=== PATIENT | female | born 1960 | race Caucasian/White ===

== ENCOUNTER 2018-01-07 06:58 | Observation (INO) | payer MEDICARE, SELFPAY ==
[2018-01-07] VITALS (9 sets, daily range): BP systolic 105–169; BP diastolic 51–78; PULSE 98–109; RESP 18–24; TEMP 36.7–37.2; O2SAT 88–100; BMI 17.4; BMI 17.0; BMI 17.1
--- NOTE | 2018-01-07 07:08 | EKG12_ITS ---
Test Reason : SOB Blood Pressure : / mmHG Vent. Rate : 099 BPM Atrial Rate : 099 BPM P-R Int : 140 ms QRS Dur : 064 ms QT Int : 346 ms P-R-T Axes : 080 080 073 degrees QTc Int : 444 ms Normal sinus rhythm Normal ECG Confirmed by GRACIELA ALEJANDRO ([id number]), managing editor JUAN MURPHY ([id number]) on 01/14/2018 2:04:48 PM Referred By: ADONIS Confirmed By:GRACIELA ALEJANDRO
[2018-01-07] MEDS: Ipratropium/Albuterol Sulfate 3 ML AMPUL.NEB INHALATION ×2 (07:13→14:55)
[2018-01-07] MEDS: Albuterol 2.5 MG/3 ML VIAL.NEB. INHALATION ×2 (07:13)
[2018-01-07] MEDS: MethylPREDNISolone 125 MG/2 ML Vial IV (07:49)
[2018-01-07] MEDS: 0.9% Normal Saline 1,000 ML 150 ML IV (07:50)
[2018-01-07 08:10] LABS: Absolute Lymphocyte Count 2.18 X10^3/ul (0.83-4.51); Absolute Neutrophil Count 7.9 X10^3/uL (2.0-7.7); Basophil# 0.04 X10^3/uL; Basophil% 0.3 % (0-1); Differential Indicated SCAN CRITERIA MET; Eosinophil# 2.08 X10^3/uL; Eosinophils% 16.1 % (0-5); Hematocrit 45.4 % (37-47); Hemoglobin 13.8 g/dl (12.0-15.0); Lymphocyte # 2.18 X10^3/ul (4.0); Lymphocyte % 16.9 % (19-41); Mean Corp Hgb Conc 30.4 g/gl (32-36); Mean Corpuscular Hgb 26.8 pg (27.0-32.0); Mean Corpuscular Volume 88.3 fL (81-99); Mean Platelet Vol. 9.5 fl (6.2-12.0); Monocyte# 0.65 X10^3/uL; Neutrophil # 7.93 X10^3/uL (2.7-7.7); Neutrophil % 61.5 % (47-70); POSITIVE COUNT NO; POSITIVE DIFFERENTIAL YES; POSITIVE MORPHOLOGY NO; Platelet Count 332 K/mm3 (150-450); RBC Distribution Width CV 14.6 % (11.6-14.6); RBC Distribution Width SD 46.9 fl (35.1-43.9); Red Blood Count 5.14 M/mm3 (4.2-5.4); White Blood Count 12.9 K/mm3 (4.4-11.0)
[2018-01-07 08:13] LABS: Anion Gap 9 (5-15); BUN 11 mg/dL (7-18); BUN/Creat Ratio 14.8 RATIO (10-20); Calcium,Total 8.4 mg/dL (8.5-10.1); Chloride 106 mmol/L (98-107); Creatinine, Serum 0.74 mg/dL (0.55-1.02); EST Glomerular Filtration Rate 86 mL/min (>60); Est Glom Filt Rate - Afr Amer 104 mL/min (>60); Estimated Creatinine Clearance 55.22 ml/min; Glucose 113 mg/dL (74-106); Potassium 3.2 mmol/L (3.5-5.1); Sodium Level 144 mmol/L (136-145)
--- NOTE | 2018-01-07 08:57 | ED.VISSUMM ---
- ER Visit Summary Date of Service: 01/07/18 Chief Complaint: [Shortness of breath] History of Present Illness: The patient is a 57 F [resents the emergency department complaint shortness of breath that started several months ago. Patient complains of a lot of coughing and sneezing. Patient states that her oxygen level at times dropping down in the 70s at home. Patient does not normally wear home O2. She is coughing up some yellow sputum. She has had chills but no documented fever. Patient does complain of some chest tightness. Patient does have a history of asthma, COPD, high cholesterol, degenerative disc disease, and fibro-myalgia.] Physical Examination: [HEENT-PERRLA, EOMI. Cranial nerves II through XII grossly intact. TMs clear. Mucous membranes moist. No adenopathy. Cardiovascular-regular rate and rhythm without murmur or ectopy Lungs-diminished breath sounds bilaterally with expiratory wheezes throughout. Mild tachypnea. No accessory muscle use or retractions. Abdomen-normoactive bowel sounds, soft, nontender, no rebound or rigidity, no peritoneal signs. Extremities-intact ?4, normal range of motion, normal pulses, atraumatic] Test Results: [EKG obtained arrival shows sinus rhythm with rate of 99 bpm. CBC with differential showed white count of 12.9, Hemoccult was 13.8, hematocrit 45, platelet 332. Chemistries unremarkable other than a slightly depressed potassium at 3.2. Troponin was less than 0.015. Chest x-ray was normal.] Emergency Department Course and Treatment: [Patient was medicated with DuoNeb aerosol as well as Solu-Medrol and Levaquin. She was given 40 medical and potassium chloride p.o.] Treatment Plan: [Admit] Disposition: [Admit] Impression: [COPD exacerbation Hypoxemia] This note was generated with [employer] dictation software. It may contain incorrect words, spelling, and punctuation that were not noted in review of the chart prior to signing ED Disposition - Plan for ED Patient: Chief Complaint: Shortness of Breath Referrals: Lew Verduzco MD [Primary Care Provider] -
[2018-01-07] MEDS: levoFLOXacin IV 750 MG/150 ML BAG 100 MG IV (09:34)
--- NOTE | 2018-01-07 13:04 | PCM.HP.STD ---
Problem List (1) COPD exacerbation Status: Acute History of Present Illness Date of Admission: 01/07/18 Chief Complaint: shortness of breath. The patient is a 57 year old F presents with shortness of breath. Time and will check her pulse ox to be minimal exertion. Patient had the same bouts a day. Patient feels that her symptoms are related with sinus infection and usually relieved with Medrol Dosepak and Levaquin. Patient presented to the emergency room where she will intake pulse ox was 88%. After treatment with Levaquin and duo nebs and methylprednisolone, patient was 98% on room air. [] Past Medical History Past Medical History (Chronic Problems): Chronic Problems Asthma (Chronic) Ankylosing spondylitis (Chronic) Anxiety disorder (Chronic) History of chest pain (Chronic) Atypical History of cataract (Chronic) Edentulous (Chronic) HLD (hyperlipidemia) (Chronic) Myositis (Chronic) History of nasal polyp (Chronic) Obesity (Chronic) Plantar fascial fibromatosis (Chronic) IBS (irritable bowel syndrome) (Chronic) Mixed anxiety and depressive disorder (Chronic) Migraines (Chronic) Medical History: Medical History (Last Updated 01/07/18 @ 13:08 by Hi Hensley DO) Anxiety F41.9 Asthma J45.909 COPD (chronic obstructive pulmonary disease) J44.9 Degenerative disc disease Depression F32.9 Fibromyalgia M79.7 Migraine G43.909 Allergies acetaminophen [From Vicodin] Allergy (Verified 05/27/17 07:33) MAKES MY CHEST HURT aspirin Allergy (Verified 05/27/17 07:33) Shortness of breath azithromycin [From Zithromax] Allergy (Verified 05/27/17 07:33) Itching budesonide Allergy (Verified 05/27/17 07:33) Rash ciprofloxacin [From Cipro] Allergy (Verified 05/27/17 10:18) Hives codeine Allergy (Verified 05/27/17 07:33) Hives difluprednate [From Durezol] Allergy (Verified 05/27/17 07:33) Rash doxycycline Allergy (Verified 05/27/17 07:33) Rash hydrocodone bitartrate [From Vicodin] Allergy (Verified 05/27/17 07:33) Hives ibuprofen [From Motrin] Allergy (Verified 05/27/17 07:33) Shortness of breath ketorolac tromethamine [From Toradol] Allergy (Verified 05/27/17 07:33) Swelling maprotiline Allergy (Verified 05/27/17 07:33) Itching meperidine HCl [From Demerol] Allergy (Verified 05/27/17 07:33) Rash mirtazapine Allergy (Verified 05/27/17 07:33) Other Penicillins Allergy (Verified 05/27/17 07:33) Rash prednisone Allergy (Verified 05/27/17 07:33) Itching tramadol HCl [From Ultram] Allergy (Verified 05/27/17 07:33) Chest tightness vancomycin Allergy (Verified 05/27/17 07:33) Swelling acetylcysteine [From Mucomyst] Adverse Reaction (Verified 05/27/17 07:33) ITCHING, REDNESS citalopram hydrobromide [From Celexa] Adverse Reaction (Verified 05/27/17 07:33) Nausea/Vom/Diarrhea escitalopram oxalate [From Lexapro] Adverse Reaction (Verified 05/27/17 07:33) Nausea/Vom/Diarrhea nitrofurantoin [From Macrobid] Adverse Reaction (Verified 05/27/17 07:33) Diarrhea nitrofurantoin macrocrystalline [From Macrobid] Adverse Reaction (Verified 05/27/17 07:33) Diarrhea oxycodone Adverse Reaction (Verified 05/27/17 07:33) Hives pregabalin [From Lyrica] Adverse Reaction (Verified 05/27/17 07:33) Swelling sulfamethoxazole [From Bactrim] Adverse Reaction (Verified 05/27/17 07:33) Unknown trimethoprim [From Bactrim] Adverse Reaction (Verified 05/27/17 07:33) Unknown venlafaxine HCl [From Effexor] Adverse Reaction (Verified 05/27/17 07:33) Nausea/Vom/Diarrhea Home Medications: Ambulatory Orders Medication Instructions Recorded Albuterol Sulfate [Ventolin Hfa] 1 - 2 puff IH Q4H PRN PRN 07/09/14 Cholecalciferol (VIT D3) [Vitamin 1,000 unit PO DAILY 07/09/14 D3] Clonazepam [Klonopin] 0.5 mg PO BID 07/09/14 Estradiol [Estrace] 0.5 mg PO QHS 07/09/14 Fluticasone 0.05% [Flonase Nasal 1 spray NASAL DAILY PRN PRN 07/09/14 [place]] Ipratropium [Atrovent Aerosols] 0.25 mg INHALATION 4X/DAY PRN PRN 07/09/14 Lansoprazole [Prevacid] 30 mg PO DAILY 07/09/14 Ranitidine [Zantac] 150 mg PO BID 07/09/14 Simvastatin [Zocor] 40 mg PO QHS 07/09/14 fentaNYL patch [Duragesic Patch] 25 mcg TRANSDERM. Q3D 07/09/14 Loperamide [Imodium] 2 mg PO Q6H PRN PRN #20 capsule 07/22/14 Dicyclomine HCl [Bentyl] 10 mg PO TID 06/24/15 Imipramine HCl [Tofranil] 25 mg PO DAILY 06/24/15 Sucralfate [Carafate] 10 ml PO TID 06/24/15 Fexofenadine HCl [Nan Allergy] 180 mg PO QHS 03/26/17 Imipramine HCl 50 mg PO QHS 01/07/18 Surgical History: appendectomy, cholecystectomy, hysterectomy Psychiatric History: Anxiety, Depression Smoking Status: Never smoker Tobacco Use: Non-smoker - *Family History Maternal History Items: Cancer, COPD, - Paternal History Items: Heart Disease, Hypertension Sibling History Items: Diabetes, Heart Disease, Hypertension, Pulmonary Disease Review of Systems Constitutional: Denies: Anorexia, Chills, Fever Eyes: Denies: Blurred vision, Double vision HEENT: Reports: Post Nasal Drip, Sore Throat. Denies: Head Aches, Sinus Congestion, Sinus Drainage Cardiovascular: Reports: Chest Pain. Denies: Palpitations Respiratory: Reports: Cough, Shortness of Breath, Sputum production, Wheezing Gastrointestinal: Denies: Abdominal Pain, Nausea, Vomiting Genitourinary: Denies: Dysuria Musculoskeletal: Denies: Joint Pain, Joint Tenderness Skin: Denies: Dryness, Jaundice Neurological: Denies: Numbness, Tingling, Focal weakness Psychiatric: Reports: Anxiety Hematologic/ Lymphatic: Denies: Easy Bruising, Easy Bleeding, Hx of blood clot Comment: All review of systems are negative except as mentioned in the history of present illness and the other review of systems. VTE Information - Inpt Only VTE Present on Admission: No VTE Mechan Device Prophylaxis: None VTE Pharm Prophylaxis ordered?: Yes Patient Problems: Active and Suspected Problems COPD exacerbation (Acute) - Physical Exam General: Alert, Cooperative, No apparent distress, - - No respiratory distress. No conversational dyspnea. HEENT: Atraumatic, Normocephalic Oral: Moist Mucosa, No Gingival or Mucosal Lesions/ Ulcerations Neck: No Nodes, Thyroid Normal Size and Texture Lungs: Clear to auscultation, Normal air movement, No rhonchi, No wheeze Cardiovascular: Regular rate, Regular Rhythm, Normal S1, Normal S2, No murmurs Abdomen: Bowel Sounds Present, Soft, Non Tender, Non-Distended, No Hepato-splenomegaly Extremities: No edema, No Calf Tenderness Skin: No breakdown, - - Macular rash with satellite lesions underneath the right breast. No evidence of cellulitis. Musculoskeletal: No Tenderness to Palpation of Joints or Extremities, No Muscle Wasting Neurological: Coordination normal, Gait narrow based and stable Psych/Mental Status: Appropriate, Anxious Vital Signs Temp Pulse Resp BP Pulse Ox 36.9 C 105 H 19 H 119/51 L 97 01/07/18 10:45 01/07/18 10:45 01/07/18 10:45 01/07/18 10:45 01/07/18 10:45 Oxygen Delivery Method Room Air Weight: 41 kg Body Mass Index (BMI) 17.0 Chest x-ray reviewed and showed no infiltrate nor edema. Assessment/Plan All Active Problems COPD exacerbation (Acute) Influenza A (Acute) Hypokalemia (Acute) Hypomagnesemia (Acute) HCAP (healthcare-associated pneumonia) (Acute) Traumatic ulcer of right lower leg (Acute) Allergic reaction caused by a drug (Acute) Diarrhea (Acute) Generalized weakness (Acute) 1. Acute asthma/COPD exacerbation Patient is not hypoxic even with ambulation in the hallway I do not feel the patient needs to be admitted and can be discharged with prednisone 40 mg daily for 5 days Patient also requesting duo nebs be refilled. I do not suspect any pneumonia. Patient also complaining of upper respiratory symptoms and sinus congestion but in either case I do not feel antibiotics are warranted. Patient can be discharged home Follow-up with pulmonology as outpatient 2. Headaches Patient has numerous allergies I would be concerned about analgesic rebound given the patient's fentanyl use. Consider discontinuing fentanyl to help alleviate her headaches which reveal her analgesic rebound. 3. Suspected contact dermatitis Patient has a very confined rash under her right breast. Almost has a candidal type appearance but patient does not have the breast folds that you lateral. Suspect is probably more of a contact dermatitis given the patient's recent gardening and around unknown plants with her numerous allergies. Patient will be on prednisone nonetheless and that should help that is indeed the case. Discharge home. Patient does not require hospitalization. Code Visit OBSV E&M: 59267 Observ/hosp same date L3
--- NOTE | 2018-01-07 13:18 | PCM.DC ---
- Discharge Diagnoses Current Active Problems: Current Active and Chronic Problems (Last Updated 01/07/18 @ 13:08 by Hi Hensley DO) COPD exacerbation (Acute) You will use the following diet at home:: No restrictions Your food should be the consistency of: Regular Your liquids should be the consistency of: Regular/Thin Call your doctor if you observe: Fever of 101 or Higher, Shortness of breath Allergies/Adverse Reactions: Allergies acetaminophen [From Vicodin] Allergy (Verified 05/27/17 07:33) MAKES MY CHEST HURT aspirin Allergy (Verified 05/27/17 07:33) Shortness of breath azithromycin [From Zithromax] Allergy (Verified 05/27/17 07:33) Itching budesonide Allergy (Verified 05/27/17 07:33) Rash ciprofloxacin [From Cipro] Allergy (Verified 05/27/17 10:18) Hives codeine Allergy (Verified 05/27/17 07:33) Hives difluprednate [From Durezol] Allergy (Verified 05/27/17 07:33) Rash doxycycline Allergy (Verified 05/27/17 07:33) Rash hydrocodone bitartrate [From Vicodin] Allergy (Verified 05/27/17 07:33) Hives ibuprofen [From Motrin] Allergy (Verified 05/27/17 07:33) Shortness of breath ketorolac tromethamine [From Toradol] Allergy (Verified 05/27/17 07:33) Swelling maprotiline Allergy (Verified 05/27/17 07:33) Itching meperidine HCl [From Demerol] Allergy (Verified 05/27/17 07:33) Rash mirtazapine Allergy (Verified 05/27/17 07:33) Other Penicillins Allergy (Verified 05/27/17 07:33) Rash prednisone Allergy (Verified 05/27/17 07:33) Itching tramadol HCl [From Ultram] Allergy (Verified 05/27/17 07:33) Chest tightness vancomycin Allergy (Verified 05/27/17 07:33) Swelling acetylcysteine [From Mucomyst] Adverse Reaction (Verified 05/27/17 07:33) ITCHING, REDNESS citalopram hydrobromide [From Celexa] Adverse Reaction (Verified 05/27/17 07:33) Nausea/Vom/Diarrhea escitalopram oxalate [From Lexapro] Adverse Reaction (Verified 05/27/17 07:33) Nausea/Vom/Diarrhea nitrofurantoin [From Macrobid] Adverse Reaction (Verified 05/27/17 07:33) Diarrhea nitrofurantoin macrocrystalline [From Macrobid] Adverse Reaction (Verified 05/27/17 07:33) Diarrhea oxycodone Adverse Reaction (Verified 05/27/17 07:33) Hives pregabalin [From Lyrica] Adverse Reaction (Verified 05/27/17 07:33) Swelling sulfamethoxazole [From Bactrim] Adverse Reaction (Verified 05/27/17 07:33) Unknown trimethoprim [From Bactrim] Adverse Reaction (Verified 05/27/17 07:33) Unknown venlafaxine HCl [From Effexor] Adverse Reaction (Verified 05/27/17 07:33) Nausea/Vom/Diarrhea Medications to take at Discharge Albuterol Sulfate [Ventolin Hfa] 1 - 2 puff IH Q4H PRN PRN 07/09/14 Cholecalciferol (VIT D3) [Vitamin D3] 1,000 unit PO DAILY 07/09/14 Clonazepam [Klonopin] 0.5 mg PO BID 07/09/14 Estradiol [Estrace] 0.5 mg PO QHS 07/09/14 Fluticasone 0.05% [Flonase Nasal [place]] 1 spray NASAL DAILY PRN PRN 07/09/14 Lansoprazole [Prevacid] 30 mg PO DAILY 07/09/14 Ranitidine [Zantac] 150 mg PO BID 07/09/14 Simvastatin [Zocor] 40 mg PO QHS 07/09/14 fentaNYL patch [Duragesic Patch] 25 mcg TRANSDERM. Q3D 07/09/14 Loperamide [Imodium] 2 mg PO Q6H PRN PRN #20 capsule 07/22/14 Dicyclomine HCl [Bentyl] 10 mg PO TID 06/24/15 Imipramine HCl [Tofranil] 25 mg PO DAILY 06/24/15 Sucralfate [Carafate] 10 ml PO TID 06/24/15 Fexofenadine HCl [Nan Allergy] 180 mg PO QHS 03/26/17 Imipramine HCl 50 mg PO QHS 01/07/18 Ipratropium/Albuterol Sulfate [Duoneb] 3 ml INHALATION Q8H #30 ampul.neb 01/07/18 Prednisone 4 tab PO DAILY #20 tab 01/07/18 The following prescriptions were given: Ipratropium/Albuterol Sulfate [Duoneb] 3 ml INHALATION Q8H #30 ampul.neb Prednisone 4 tab PO DAILY #20 tab Primary Care Physician: Lew Verduzco MD [Primary Care Provider] - Within 2 Weeks Test Results: Test results from this visit will be discussed in further detail at your follow-up appointment, if applicable. Please Follow Up With: Abdias Olguin MD When: 1-2 months Proposed Discharge Date: 01/07/18
--- NOTE | 2018-01-07 13:19 | PCM.DC.SUM ---
Discharge Date and Diagnosis - Problem List Patient Problems: Active and Suspected Problems (Last Updated 01/07/18 @ 13:08 by Hi Hensley DO) COPD exacerbation (Acute) Date of Admission: 01/07/18 Date of Discharge: 01/07/18 - Primary Discharge Diagnosis Active and Suspected Problems (Last Updated 01/07/18 @ 13:08 by Hi Hensley DO) COPD exacerbation (Acute) - Secondary Discharge Diagnosis Chronic Problems (Last Updated 01/07/18 @ 13:08 by Hi Hensley DO) Asthma (Chronic) Ankylosing spondylitis (Chronic) Anxiety disorder (Chronic) History of chest pain (Chronic) Atypical History of cataract (Chronic) Edentulous (Chronic) HLD (hyperlipidemia) (Chronic) Myositis (Chronic) History of nasal polyp (Chronic) Obesity (Chronic) Plantar fascial fibromatosis (Chronic) IBS (irritable bowel syndrome) (Chronic) Mixed anxiety and depressive disorder (Chronic) Migraines (Chronic) Hospital Course and Treatment Imaging Results: Clinical Impression(s) from Imaging Studies Chest X-Ray 01/07/18 07:08 IMPRESSION: Normal x-ray examination of the chest. Electronically Signed: Cristofer Etienne MD at 7:32 EDT Tel , Service support , Operations: None Procedures: None Summary of Care Provided: The patient is a 57 year old F resents with shortness of breath hypoxia of 70-80% at home. In the emergency room, patient did have an intake pulse ox of 88% but subsequently improved to 98% on room air. Patient in the emergency room, received Levaquin, bronchodilators and Solu-Medrol. Patient was seen on the floor by myself and patient was talking in full sentences, on room air. Patient was ambulated in the hallway on room air talking in full sentences the hallway and upon returning back her pulse ox was 95%. Therefore, do not feel the patient requires hospitalization and can be discharged with prednisone 40 mg for 5 days. Patient also asked for DuoNeb's for nebulizer which she will be immobilized. Patient follow-up with her primary care doctor next 2 weeks and the follow-up with her ovens supervisor, Dr. Olguin, next 1-2 months or sooner if necessary. [] Discharge Diet: No Restrictions Call your doctor if you observe: Fever of 101 or Higher, Shortness of breath Home Medications: Medications to take at Discharge Albuterol Sulfate [Ventolin Hfa] 1 - 2 puff IH Q4H PRN PRN 07/09/14 Cholecalciferol (VIT D3) [Vitamin D3] 1,000 unit PO DAILY 07/09/14 Clonazepam [Klonopin] 0.5 mg PO BID 07/09/14 Estradiol [Estrace] 0.5 mg PO QHS 07/09/14 Fluticasone 0.05% [Flonase Nasal [place]] 1 spray NASAL DAILY PRN PRN 07/09/14 Lansoprazole [Prevacid] 30 mg PO DAILY 07/09/14 Ranitidine [Zantac] 150 mg PO BID 07/09/14 Simvastatin [Zocor] 40 mg PO QHS 07/09/14 fentaNYL patch [Duragesic Patch] 25 mcg TRANSDERM. Q3D 07/09/14 Loperamide [Imodium] 2 mg PO Q6H PRN PRN #20 capsule 07/22/14 Dicyclomine HCl [Bentyl] 10 mg PO TID 06/24/15 Imipramine HCl [Tofranil] 25 mg PO DAILY 06/24/15 Sucralfate [Carafate] 10 ml PO TID 06/24/15 Fexofenadine HCl [Nan Allergy] 180 mg PO QHS 03/26/17 Imipramine HCl 50 mg PO QHS 01/07/18 Ipratropium/Albuterol Sulfate [Duoneb] 3 ml INHALATION Q8H #30 ampul.neb 01/07/18 Prednisone 4 tab PO DAILY #20 tab 01/07/18 Following Prescrptions Were Given to Patient: Ipratropium/Albuterol Sulfate [Duoneb] 3 ml INHALATION Q8H #30 ampul.neb Prednisone 4 tab PO DAILY #20 tab Primary Care Physician: Lew Verduzco MD [Primary Care Provider] - Within 2 Weeks Please Follow Up With: Abdias Olguin MD When: 1-2 months Disposition: Home Minutes spent on discharge:: 35 Patient Condition:: Good Medical Necessity - Tobacco Use Smoking Status: Never smoker Tobacco Use: Non-smoker Meaningful Use Info Meaningful Use Diagnoses (Choose all that apply): None applicable Code Visit OBSV E&M: 18319 Observ/hosp same date L3
[2018-01-07] MEDS: Dicyclomine 10 MG Capsule PO (15:20)
--- NOTE | 2018-01-07 15:30 | CASEMGMT ---
Social Work Note CHRISTI Reyna updated this worker that pt is fearful about returning home and would like to speak with this worker about resources. SW in to speak with pt. SW introduced self and role at [facility]. Pt is alert and orientated x4. Pt states that she lives in her home with her boyfriend Laurent. Pt states that she and her boyfriend Laurent have been dating for 13 months and she recently moved him into her home three months ago. Pt states that it is her home. Pt states that her boyfriend has Bipolar and has stopped taking his medications. Pt states that her boyfriend will Snap at an instant and will raise his voice and yell at pt. Pt states that her boyfriend states that he doesn't need to be on his medication anymore. Pt states that her boyfriend has stopped drinking as pt has informed him that if he comes home drunk then he will have to find another place to live. Pt states that she has a history of dating alcoholics and she doesn't want to date another one. Pt states that she gets upset and it affects her breathing when her boyfriend raises his voice at her. Pt states that she gets upset at anybody who will raise their voice at her. Pt states that it affects her anxiety which has an effect on her breathing. SW asked pt if she has told her boyfriend about these feelings and how it affects her and pt states that she has but is willing to continue to work at telling her boyfriend how she feels. SW educated pt on I statements and how important and beneficial it can be to utilize I statements when telling others how they feel. Pt states that she tells her boyfriend to remain calm and to not stress. Pt states that her boyfriend works a lot and he is stressed a lot and she thinks that this is why he yells at her a lot. SW educated pt on positive coping skills to deal with stress and informed pt that it is not ok for her boyfriend to take his stress out on her. Pt denied her boyfriend ever being physical with her and states that he just raises his voice at her. SW informed pt that since it is her home then she has the right to say who gets to live with her in her home or not. SW informed pt that she has the right to make her boyfriend leave her house and if he doesn't then a police report needs to be made. Pt states that she doesn't want police to get involved. Pt states that her boyfriend keeps saying that he is going to work on things and she believes him. SW educated pt on coping skills. Pt states that to cope with her boyfriend she will usually get in her truck and drive to her mothers home or her cousins. Pt states that her mother and cousin are good support for her. Pt states that she wanted to move her boyfriend into her home because she gets lonely and likes to have company. SW provided active listening to pt and empathy but educated pt on what healthy relationships look like. Pt states understanding. Pt states that if things get worse she will have her boyfriend move out or spend more time with her mother and cousin. Pt states that she feels safe to return home and she will continue to work on her relationship with her boyfriend. Note* Pt is alert and orientated x4 and under the age of 60 so APS report is not appropriate. Shaina Cortés COMPOUNDING AND FINISHING SUPERVISOR, PLATER HELPER
[2018-01-09 14:17] LABS: Pathologist Review Reviewed
== END 2018-01-07 16:41 | disposition home or self-care (01) ==
LOC: ED 09:06 → MS3 09:29
PROVIDERS: Emergency Provider Emergency Medicine; Family Provider Internal Medicine; PCP Internal Medicine
DX: J44.1 Chronic obstructive pulmonary disease with (acute) exacerbation (principal); E78.5 Hyperlipidemia, unspecified; Z79.899 Other long term (current) drug therapy; F41.8 Other specified anxiety disorders; M72.2 Plantar fascial fibromatosis; K58.9 Irritable bowel syndrome, unspecified; M45.9 Ankylosing spondylitis of unspecified sites in spine; E78.00 Pure hypercholesterolemia, unspecified; M79.7 Fibromyalgia
CPT/HCPCS: 71045; 80048; 84484; 85025; 93005; 94640; 96361; 96365; 96366; 96375; 97162; 99218; 99285; J7030; G0378

== ENCOUNTER → 2018-02-14 16:41 | Outpatient (CLI) | payer MEDICARE, SELFPAY | PROVIDERS: Referring Provider Otolaryngology; Visit Provider Otolaryngology | DX: J32.9 Chronic sinusitis, unspecified (principal) | CPT/HCPCS: 87070; 87077; 87186; 87205 ==

== ENCOUNTER 2018-04-07 10:39 | Day surgery (SDC) | payer MEDICARE, SELFPAY ==
[2018-01-07 10:47] VITALS: BMI 17.0
--- NOTE | 2018-04-07 | IMM_PTH ---
PATIENT: EZIO JEFFERS LOC: EN U#:[id number] AGE/SX: 57/F ROOM: RE04/07/[address]: Dr. Suki Marcum MD : [id number] BED: DIS: 04/07/2018 SPEC #: [id number] RECD: 04/07/18 15:51 STATUS: ANGELINA REQ #: [id number] IZABEL: 04/07/18 00:[address]: Suki Marcum DEPT: IMMUNOHISTOCHEMISTRY RECD BY: Valerie Ortiz ENTERED: 04/07/18 15:52 SP TYPE: IMMUNO OTHR DR: Dr. Lew Verduzco MD Tissues: B - Stomach, NOS Procedures: H Pylori (initial) PHYSICIAN & INSTITUTION [place] [id number] SPECIMEN INFORMATION: Tissue Source: B - Biopsy gastric antrum Clinical Info: Dysphagia, nausea, history of colon polyps Specimen Number: [id number] CPT code: 34504 METHODOLOGY: Deparaffinized sections of prefer/formalin-fixed tissue or PAP/DQ stained slides are incubated with monoclonal/polyclonal antibodies/oligonucleotide probes. Localization is made via biotin free immunoperoxidase method. Appropriate controls are performed and reacted as expected. Results on target cell population are indicated in the following table: RESULTS: ANTIBODY / CLONE RESULT Block B H Pylori (polyclonal) negative These tests were developed and their performance characteristics determined by [facility]. They may not have been cleared or approved by the U.S. Food and Drug Administration. The FDA has determined that such clearance or approval is not necessary. INTERPRETATION: B. Gastric antrum, biopsy: Negative for Helicobacter pylori organisms. SJ:melissa 04/08/18
--- NOTE | 2018-04-07 | EGD_PTH ---
PATIENT: EZIO JEFFERS LOC: EN U#:[id number] AGE/SX: 57/F ROOM: RE04/07/[address]: Dr. Suki Marcum MD : 1960 BED: DIS: 04/07/2018 SPEC #: [id number] RECD: 04/07/18 14:00 STATUS: ANGELINA IVA #: [id number] IZABEL: 04/07/18 00:[address]: Suki Marcum DEPT: SURGICAL PATHOLOGY RECD BY: Kalia Palacios ENTERED: 04/07/18 14:01 SP TYPE: EGD BIOPSY OTHR DR: Dr. Lew Verduzco MD Tissues: A - Duodenum, NOS B - Gastric mucous membrane C - Gastric mucous membrane D - COLON BIOPSY E - Ileum, NOS Procedures: Special Stain Group II Surgery Specimen Level IV Alcian Blue/PAS (control) HEADER OPERATION: [place], [place] [place] DIAGNOSIS: Dysphagia, nausea, history of colon polyps TISSUE SUBMITTED: A - Biopsy second portion of duodenum, B - Biopsy gastric antrum, H. pylori and path, C - GE junction, D - Random colonic mucosal biopsies, E - Biopsy terminal ileum MICROSCOPIC DIAGNOSIS A. Second portion of duodenum, biopsy: A fragment of duodenal mucosa with mild mucosal congestion and hemorrhage and Nehemiah's gland hyperplasia. B. Gastric antrum, biopsy: Mild gastritis. Mild mucosal congestion. See microscopic description and comment. C. GE junction, biopsy: Fragments of gastroesophageal mucosa with changes consistent with gastroesophageal reflux disease. Intestinal metaplasia (goblet cell metaplasia) is not identified. See comment. D. Colon, random mucosal biopsy: Fragments of colonic mucosa, no pathologic diagnosis. E. Terminal ileum, biopsy: A fragment of small intestinal mucosa, no pathologic diagnosis. SJ:melissa 04/08/18 COMMENT B. The results of immunohistochemistry for Helicobacter pylori will be reported separately ([id number]). C. Alcian blue/PAS stain with matched control is used in the evaluation of the specimen. Focal increased number of eosinophils are noted (up to 15 per high power field). MICROSCOPIC DESCRIPTION Slides are reviewed. B. The specimen shows fragments of gastric mucosa with chronic inflammatory cell infiltrates in the lamina propria consisting of lymphocytes and plasma cells, consistent with mild chronic gastritis. Focal mild mucosal congestion is also noted. GROSS DESCRIPTION A - Received in fixative is one container labeled with the patient's name and designated second portion of duodenum. The specimen consists of one irregular fragment of light [place] soft tissue that measures 0.3 x 0.2 x 0.1 cm. The specimen is totally submitted in one cassette. B - Received in fixative is one container labeled with the patient's name and designated biopsy gastric antrum. The specimen consists of one irregular fragment of light cub[place] soft tissue that measures 0.2 x 0.2 x 0.1 cm. The specimen is totally submitted in one cassette. C - Received in fixative is one container labeled with the patient's name and designated biopsy GE junction. The specimen consists of two irregular fragments of light [place] soft tissue that in aggregate measure 0.6 x 0.3 x 0.1 cm. The specimen is totally submitted in one cassette. D - Received in fixative is one container labeled with the patient's name and designated random colon mucosal biopsy. The specimen consists of multiple irregular fragments of light cuba soft tissue that in aggregate measure 2 x 0.5 x 0.1 cm. The specimen is totally submitted in one cassette. E - Received in fixative is one container labeled with the patient's name and designated biopsy terminal ileum. The specimen consists of one irregular fragment of light cuba soft tissue that measures 0.3 x 0.2 x 0.1 cm. The specimen is totally submitted in one cassette. / SJ:rg 04/07/18 TC:[address] [facility]: [id number] [phone], [phone]
[2018-04-07 11:18] VITALS: BP 115/68; PULSE 110; RESP 16; TEMP 37.7; O2SAT 97; BMI 17.2
--- NOTE | 2018-04-07 11:22 | HP.PCM_ITS ---
History and Physical Date of Admission: 04/07/18 Chey Pringle a 57 year old female who is referred by Dr. Verduzco for surveillance colonoscopy. The patient reports a family history of colon cancer in that a maternal aunt had the disease. ? The patient was noted to have a sessile serrated polyp on pathology following a colonoscopy by Dr. Wolfe in June 2013. It was recommended to patient to return in 6-9 months to have a follow-up colonoscopy. Dr. Bains preformed colonoscopy on 03/10/2014 demonstrating one 30 mm polyp in the mid ascending colon. Pathology returned as a hyperplastic polyp. Surgery was recommended due to the size of the area. ? PROCEDURE: Laparoscopic colectomy ileocecal by Dr. Luis Conroy on 07/16/14. ? The patient was seen by Dr. Bains for colonoscopy 03/10/15. The procedure report has been reviewed and findings as follows: Impression: ? ? ? - One 5 mm polyp in the rectum. Resected and retrieved. ? FINAL DIAGNOSIS Rectum, biopsy - Fragments of hyperplastic polyp. ? ? The patient was seen by Dr. Wolfe for upper endoscopy 07/11/09. The procedure report has been reviewed and findings as follows: Findings: ? Esophagus: The Z-line is slightly erratic but without erosions or ulcerations. No evidence of Shell's mucosa. No bxs were taken. ? Stomach: Erythematous mucosa was found in the antrum. No evidence of ulcers in the stomach. A biopsy was taken. The specimen was collected for a urease test. Otherwise, the stomach appeared to be normal. ?Duodenum: The duodenum appeared to be normal. ? The patient remains on Prevacid and Carafate. ? ? Presenting complaint: The patient denies change in bowel habits or rectal bleeding. Having a bowel movement anywhere from none in a day, up to several times a day. She reminds me that she has irritable bowel. She might have several bowel movements if she's upset, or depending on what she has eaten. She reports stabbing pain in her lower abdomen when her irritable bowel occurs. No blood or black stool. She takes dicyclomine as needed. ? The patient has been on Prevacid for years. She also takes ranitidine and sucralfate. She reports nausea at times. Also, pill dysphagia stating that the sensation can last an hour or more. ?? ? PAST?MEDICAL?HISTORY ? Abnormal ultrasound of breast 06/17/2013 ? Acute gastritis ? ? Ankylosing spondylitis (HCC) ? ? Anxiety and depression 06/12/2005 ? Asthma with chronic obstructive pulmonary disease (COPD) (HCC) 05/24/2005 ? Bilateral renal cysts 03/11/2015 ? Calculus of kidney ? ? Dysthymic disorder ? ? Depression (non-psychotic) ? Enterocolitis due to Clostridium difficile 01/12/2015 ? Esophageal reflux ? ? HNP (herniated nucleus pulposus), lumbar 08/22/2011 ? Intrinsic asthma, unspecified 08/05/2008 ? Irritable bowel syndrome ? ? Irritable bowel ? 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 Menopause syndrome 01/19/2005 ? Myalgia and myositis, unspecified ? ? Pure hypercholesterolemia ? ? Serrated adenoma of colon 07/29/2014 ? Symptomatic menopausal or female climacteric states ? ? Unspecified asthma(493.90) ? ? Unspecified sinusitis (chronic) 06/21/2008 ? ? PAST?SURGICAL?HISTORY ? COLONOSCOP W/ OR W/O BRSH SPEC ? 04/24/2001 ? Colonoscopy ? COLONOSCOP W/ OR W/O BRSH SPEC ? 06/16/2013 ? Colonoscopy ? COLONOSCOP W/ OR W/O BRSH SPEC ? 03/10/2014 ? Colonoscopy ? COLONOSCOP W/ OR W/O BRSH SPEC ? 03/10/15 ? Colonoscopy ? EGD W/O OR W/BRUSH/WASH ? 04/24/2001 ? EGD ? EGD W/O OR W/BRUSH/WASH ? 07/11/2009 ? EGD ? EXCISION NOSE POLYP(S),SIMPLE ? 2007 ? Nasal polypectomy, Dr. Mcclelland ? LAP COLECTMY W/ILEUM/ILEOCOL ? 07-16-14 ? PAST SURGICAL HISTORY OF ? 2013 ? left breast biopsy- benign ? REMOVAL GALLBLADDER ? 1998 ? Cholecystectomy ? REMV CATARACT EXTRACAP,INSERT LENS ? ? Cataract Extraction with PC IOL ? REPAIR OF NASAL SEPTUM ? 2006 ? Septoplasty ? SINUS SURGERY PROCEDURE Bilateral 04/02/2017 ? sinonasal polypectomy, revision maxillary antrostomy, total ethmoidectomy, sphenoidotomy ? TOTAL ABDOM HYSTERECTOMY ? 1992 ? Hysterectomy, OPAL BSO ? ? FAMILY?HISTORY ? Cancer Maternal Grandmother ? ? lung ? Colon Cancer Maternal Aunt ? ? COPD Maternal Uncle ? ? Coronary Artery Disease Paternal Aunt ? ? Breast Cancer Other ? ? mothers side (cousin) ? Cancer Maternal Uncle ? ? lung ? Emphysema Father ? ? Heart Father ? ? Emphysema Mother ? ? diabetic ? Heart Mother ? ? Blockage and she needs a bypass, but her COPD prevents ? CURRENT?MEDICATIONS fentaNYL (DURAGESIC) 25 mcg/hr Apply 1 Patch as directed every 72 hours for 30 days.Earliest Fill Date: 01/28/18 Disp: 10 Patch Rfl: 0 [START ON 02/28/2018] fentaNYL (DURAGESIC) 25 mcg/hr Apply 1 Patch as directed every 72 hours for 30 days.Earliest Fill Date: 02/28/18 Disp: 10 Patch Rfl: 0 [START ON 03/31/2018] fentaNYL (DURAGESIC) 25 mcg/hr Apply 1 Patch as directed every 72 hours for 30 days.Earliest Fill Date: 03/31/18 Disp: 10 Patch Rfl: 0 ipratropium-albuterol (DUONEB) 0.5 mg-3 mg(2.5 mg base)/3 mL nebu Inhale 3 mL as instructed every 6 hours as needed. Disp: 30 Vial Rfl: 5 montelukast (SINGULAIR) 10 mg tablet take 1 tablet by mouth at bedtime Disp: 90 tablet Rfl: 3 Estradiol (ESTRACE) 0.5 mg tablet take 1 tablet by mouth once daily Disp: 90 tablet Rfl: 1 ranitidine (ZANTAC) 150 mg tablet take 1 tablet by mouth twice a day Disp: 180 tablet Rfl: 3 clonazePAM (KLONOPIN) 0.5 mg tablet Take 1 tablet by mouth twice daily for 180 days. Disp: 60 tablet Rfl: 5 imipramine HCl (TOFRANIL) 25 mg tablet Take 2 tablets by mouth daily at bedtime. Disp: 180 tablet Rfl: 1 albuterol HFA (VENTOLIN HFA) 90 mcg/actuation inhaler Inhale 2 Puffs as instructed every 4 hours as needed for Wheezing/Shortness of Breath. Disp: 1 Inhaler Rfl: 2 sucralfate (CARAFATE) 1 gram tablet Take 1 tablet by mouth before meals and at bedtime. Disp: 360 tablet Rfl: 1 simvastatin (ZOCOR) 40 mg tablet Take 1 tablet by mouth daily at bedtime. Disp: 90 tablet Rfl: 3 dicyclomine (BENTYL) 10 mg capsule Take 1 capsule by mouth four times daily. (Patient taking differently: Take 10 mg by mouth three times daily. ) Disp: 360 capsule Rfl: 4 lansoprazole (PREVACID) 30 mg capsule take 1 capsule by mouth once daily Disp: 30 capsule Rfl: 11 fluticasone (FLONASE) 50 mcg/actuation nasal spray Use in the nose. SHAKE WELL before using. Blow nose prior to use. Prime pump before using. Disp: Rfl: LOPERAMIDE HCL (IMODIUM ORAL) Take by mouth as needed. Disp: Rfl: Cholecalciferol, Vitamin D3, (VITAMIN D) 1,000 unit cap Take 1,000 Units by mouth once daily. Disp: Rfl: fexofenadine (PRISCILLA) 180 mg ORAL tablet Take one(1) tablet daily. Disp: 90 Tab Rfl: 3 vit e acetate/gly/dimeth/water(CETAPHIL MOISTURIZING LOTION) apply twice daily Disp: 1 Rfl: 0 ? ? SOCIAL HISTORY: Patient is single. She has never smoked. Chey reports her alcohol use as never. ? REVIEW OF SYSTEMS: GENERAL: No weight loss, malaise or fevers RESPIRATORY: Severe COPD CARDIOVASCULAR: Negative for chest pain, leg swelling, hypertension, CHF or palpitations GI: The patient states that her appetite has been adequate. She so,etimes get hungry. There has been some nausea, no vomiting. She admits to dysphagia and denies odynophagia. There has not been indigestion or heartburn. There has not been regurgitation. Bowel habits have been irregular. There has been diarrhea. There has not been constipation. The patient denies rectal bleeding. There has not been melena. Intermittent abdominal pain that is located in the lower abodmen, related to the IBS episodes.. PSYCH: Positive for anxiety and depression. MUSCULOSKELETAL: Fibromyalgia and chronic back pain from ankylosing spondylitis - on Fentanyl patch HEMATOLOGY/LYMPHOLOGY Negative for prolonged bleeding, bruising easily or swollen nodes ENDOCRINE: Negative for thyroid or diabetes. NEURO: History of migraine headaches All other reviewed and negative other than HPI. ? PHYSICAL EXAMINATION: Blood pressure 107/64, pulse 109, height 152.4 cm (5'), weight 42.5 kg (93 lb 9.6 oz). General Appearance: Alert, in no acute distress. Skin: Skin color, texture, turgor normal, no suspicious rashes or lesions. Head: Normocephalic, no masses, lesions or abnormalities. Eyes: Anicteric sclera. P Oropharynx: Dentures. Lips, mucosa, and tongue normal, oropharynx normal. Neck: Supple, no adenopathy; thyroid symmetric, normal size. Lungs: Lungs clear to auscultation. No wheezing, rhonchi, rales. (she tells me she did an aerosol treatment prior to appointment) Heart: RRR without murmur. Abdomen: Abdomen soft, non-tender. Bowel sounds normal. No masses, organomegaly. Extremities: No deformities, edema, skin discoloration, clubbing or cyanosis. Peripheral Pulses: Normal. Neurologic: Gait normal. Sensation grossly intact. ? ? Impression: GERD 2)snf use of PPI 3)dysphagia 4)history of polyps 5)IBS ? Plan: The patient will be scheduled for an upper endoscopy as well as a colonoscopy. She will require MAC. Preparation for the procedures, using magnesium citrate and dulcolax as the laxative, have been explained in detail. The risks, benefits, anticipated outcomes and possible complications were mentioned. I explained the procedure in understandable terms and the patient was given printed material concerning the planned procedure. The patient had the opportunity to ask questions concerning the planned procedure. The patient freely consents to the planned procedure. ? The patient is encouraged to call with any questions or concerns, or should there be any change in health status between now and the scheduled procedure. ? ? Marisol Alvarado RN REGROOVER.HYDRO GENERATION SUPERVISOR
[2018-04-07 12:55] VITALS: BP 115/66; BP 115/68; PULSE 87; RESP 16; TEMP 35.9; O2SAT 100
--- NOTE | 2018-04-07 12:56 | OP.ENDO_ITS ---
Patient Name: Chey Pringle Procedure Date: 04/07/2018 11:49 AM Date of : 1960 Age: 57 Procedure: Upper GI endoscopy Indications: Esophageal dysphagia, Nausea Providers: Suki Marcum MD Medicines: See the Anesthesia note for documentation of the administered medications Patient Profile: Refer to note in patient chart for documentation of history and physical. Complications: No immediate complications. Procedure: Pre-Anesthesia Assessment: - Prior to the procedure, a History and Physical was performed, and patient medications and allergies were reviewed. The patient is competent. The risks and benefits of the procedure and the sedation options and risks were discussed with the patient. All questions were answered and informed consent was obtained. Patient identification and proposed procedure were verified by the physician in the pre-procedure area. Mental Status Examination: alert and oriented. Airway Examination: normal oropharyngeal airway and neck mobility. Respiratory Examination: clear to auscultation. CV Examination: normal. Prophylactic Antibiotics: The patient does not require prophylactic antibiotics. Prior Anticoagulants: The patient has taken no previous anticoagulant or antiplatelet agents. ASA Grade Assessment: II - A patient with mild systemic disease. After reviewing the risks and benefits, the patient was deemed in satisfactory condition to undergo the procedure. The anesthesia plan was to use monitored anesthesia care (MAC). Immediately prior to administration of medications, the patient was re-assessed for adequacy to receive sedatives. The heart rate, respiratory rate, oxygen saturations, blood pressure, adequacy of pulmonary ventilation, and response to care were monitored throughout the procedure. The physical status of the patient was re-assessed after the procedure. After obtaining informed consent, the endoscope was passed under direct vision. Throughout the procedure, the patient's blood pressure, pulse, and oxygen saturations were monitored continuously. The gastroscope was introduced through the mouth, and advanced to the second part of duodenum. The upper GI endoscopy was accomplished without difficulty. The patient tolerated the procedure well. Scope In: 12:09:49 PM Scope Out: 12:15:45 PM Total Procedure Duration Time 0 hours 5 minutes 56 seconds Findings: The Z-line was slightly irregular. Biopsies were taken with a cold forceps for histology. The entire examined stomach was normal. Biopsies were taken with a cold forceps for histology. The first portion of the duodenum and second portion of the duodenum were normal. Biopsies for histology were taken with a cold forceps for evaluation of celiac disease. Impression: - Z-line irregular. Biopsied. - Normal stomach. Biopsied. - Normal first portion of the duodenum and second portion of the duodenum. Biopsied. Recommendation: - Await pathology results. - Return to nurse practitioner in 1 week. - Continue present medications. Procedure Code(s): --- Professional --- 37809, Esophagogastroduodenoscopy, flexible, transoral; with biopsy, single or multiple Diagnosis Code(s): --- Professional --- K22.8, Other specified diseases of esophagus R13.14, Dysphagia, pharyngoesophageal phase R11.0, Nausea CPT copyright 2017 [employer]. All rights reserved. The codes documented in this report are preliminary and upon certified medical records coder review may be revised to meet current compliance requirements. MD Suki Quevedo MD 04/07/2018 12:55:52 PM This report has been signed electronically. Number of Addenda: 0 Note Initiated On: 04/07/2018 11:49 AM
--- NOTE | 2018-04-07 12:59 | OP.ENDO_ITS ---
Patient Name: Chey Pringle Procedure Date: 04/07/2018 12:17 PM Date of : 1960 Age: 57 Procedure: Colonoscopy Indications: High risk colon cancer surveillance: Personal history of colonic polyps Providers: Suki Marcum MD Medicines: See the Anesthesia note for documentation of the administered medications Patient Profile: Refer to note in patient chart for documentation of history and physical. Last Colonoscopy: more than 3 years ago. Complications: No immediate complications. Procedure: Pre-Anesthesia Assessment: - Prior to the procedure, a History and Physical was performed, and patient medications and allergies were reviewed. The patient is competent. The risks and benefits of the procedure and the sedation options and risks were discussed with the patient. All questions were answered and informed consent was obtained. Patient identification and proposed procedure were verified by the physician in the pre-procedure area. Mental Status Examination: alert and oriented. Airway Examination: normal oropharyngeal airway and neck mobility. Respiratory Examination: clear to auscultation. CV Examination: normal. Prophylactic Antibiotics: The patient does not require prophylactic antibiotics. Prior Anticoagulants: The patient has taken no previous anticoagulant or antiplatelet agents. ASA Grade Assessment: II - A patient with mild systemic disease. After reviewing the risks and benefits, the patient was deemed in satisfactory condition to undergo the procedure. The anesthesia plan was to use monitored anesthesia care (MAC). Immediately prior to administration of medications, the patient was re-assessed for adequacy to receive sedatives. The heart rate, respiratory rate, oxygen saturations, blood pressure, adequacy of pulmonary ventilation, and response to care were monitored throughout the procedure. The physical status of the patient was re-assessed after the procedure. After I obtained informed consent, the scope was passed under direct vision. Throughout the procedure, the patient's blood pressure, pulse, and oxygen saturations were monitored continuously. The Colonoscope was introduced through the anus and advanced to the cecum, identified by the ileocecal anastomosis and transillumination. The colonoscopy was performed without difficulty. The patient tolerated the procedure well. The quality of the bowel preparation was adequate. Scope In: 12:18:45 PM Scope Withdrawal Time 0 hours 22 minutes 36 seconds Scope Out: 12:50:36 PM Total Procedure Duration Time 0 hours 31 minutes 51 seconds Findings: The perianal and digital rectal examinations were normal. Non-bleeding internal hemorrhoids were found. Biopsies for histology were taken with a cold forceps from the ileum and entire colon for evaluation of microscopic colitis, the patient was noted to have friable mucosa, biopsy sites with continued bleeding in the right colon had hemostatic clips placed. Impression: - Non-bleeding internal hemorrhoids. - Biopsies were taken with a cold forceps from the entire ileum and colon for evaluation of microscopic colitis. Recommendation: - Discharge patient to home (ambulatory). - Resume previous diet. - Continue present medications. - Await pathology results. - Return to nurse practitioner in 1 week. - Repeat colonoscopy is recommended. The colonoscopy date will be determined after pathology results from today's exam become available for review. Procedure Code(s): --- Professional --- 06882, Colonoscopy, flexible; with biopsy, single or multiple Diagnosis Code(s): --- Professional --- K64.8, Other hemorrhoids Z86.010, Personal history of colonic polyps CPT copyright 2017 [employer]. All rights reserved. The codes documented in this report are preliminary and upon medical record coder review may be revised to meet current compliance requirements. MD Suki Quevedo MD 04/07/2018 12:59:24 PM This report has been signed electronically. Number of Addenda: 0 Note Initiated On: 04/07/2018 12:17 PM
[2018-04-07 13:00] VITALS: BP 108/58; BP 115/68; PULSE 80; RESP 16; O2SAT 100
[2018-04-07 13:05] VITALS: BP 110/58; BP 115/68; PULSE 80; RESP 16; O2SAT 100
[2018-04-07 13:12] VITALS: BP 115/68; BP 120/62; PULSE 93; RESP 16; TEMP 36.2; O2SAT 100
[2018-04-07 13:40] VITALS: BP 115/68
--- OUTSIDE RECORDS SUMMARY | 2018-05-31 15:58 | XMS RPT_ITS ---
:1960 Author Organization OHIP Care Team Providers Name Role Phone LEW VERDUZCO Attending Unavailable LEW VERDUZCO Referring Unavailable LEW VERDUZCO Referring Unavailable LEW VERDUZCO Attending Unavailable LEW VERDUZCO Referring Unavailable LEW VERDUZCO Referring Unavailable LEW VERDUZCO Attending Unavailable LEW VERDUZCO Referring Unavailable LEW VERDUZCO Referring Unavailable LEW VERDUZCO Referring Unavailable LEW VERDUZCO Referring Unavailable KHARI ALVARADO (DIRECTOR OF STRATEGIC COMMUNICATIONS) Attending Unavailable LEW VERDUZCO Referring Unavailable YESICA GODDARD Attending Unavailable LEW VERDUZCO Referring Unavailable YESICA GODDARD Referring Unavailable BURSLEY, CHRISTOPHER B () Attending Unavailable COLTON NAQVI () Referring Unavailable COLTON NAQVI () Referring Unavailable YESICA GODDARD Referring Unavailable DARREN ALEMAN Referring Unavailable DARREN ALEMAN Attending Unavailable DAX, IFTIKHAR Referring Unavailable DARREN ALEMAN Referring Unavailable DARREN ALEMAN Referring Unavailable SUKI MARCUM Attending Unavailable DAX, IFTIKHAR Referring Unavailable ELLEN NAVARRO (CHARMAINE) Referring Unavailable ELLEN NAVARRO (CHARMAINE) Referring Unavailable ELLEN NAVARRO (CHARMAINE) Attending Unavailable ELLEN NAVARRO (CHARMAINE) Referring Unavailable VERDUZCO, IFTIKHAR Referring Unavailable Verduzco, Lew Primary Care Unavailable Andres Tyson Attending Unavailable Verduzco, Lew Primary Care Unavailable Ayden Hi Admitting Unavailable Hi Hensley Attending Unavailable Jothi, Hi Admitting Unavailable Jothi, Hi Attending Unavailable Dax, Lew Primary Care Unavailable Ayden Hi Consulting Unavailable Enio Mazariegos Attending Unavailable Enio Mazariegos Referring Unavailable Primay Care Physicia, No Primary Care Unavailable Suki Marcum Attending Unavailable Suki Marcum Referring Unavailable Verduzco, Lew Primary Care Unavailable PROBLEMS PROBLEMS DATE TYPE CONDITION / CODE ATTENDING STATUS SOURCE 04/11/2018 Active Left upper NA Active [facility] quadrant pain / [place] R10.12(ICD-10) Repository 04/11/2018 Active Bandemia / NA Active [facility] D72.825(ICD-10) [place] Repository 04/11/2018 Active Benign neoplasm of NA Active [facility] colon, unspecified [place] / D12.6(ICD-10) Repository 04/02/2018 Active Elevated white NA Active [facility] blood cell count, [place] unspecified / Repository D72.829(ICD-10) 03/28/2018 Active Chronic NA Active [facility] pansinusitis / [place] J32.4(ICD-10) Repository 03/25/2018 Active Abnormal weight NA Active [facility] loss / [place] R63.4(ICD-10) Repository 03/17/2018 Active Other allergic NA Active [facility] rhinitis / [place] J30.89(ICD-10) Repository 03/17/2018 Active Other polyp of NA Active [facility] sinus / [place] J33.8(ICD-10) Repository 03/17/2018 Active Severe persistent NA Active [facility] asthma with [place] (acute) Repository exacerbation / J45.51(ICD-10) 02/24/2018 Unknown J32.9 - Chronic [place], Active [facility] sinusitis, [facility] unspecified / Hospital J32.9(ICD-10) Repository 01/31/2018 Active Unknown / THORPE KHARI Active [facility] UNK(Unknown) (DIRECTOR OF STRATEGIC COMMUNICATIONS) [place] Repository 02/25/2015 Active Chronic NA Active [facility] obstructive [place] pulmonary disease, Repository unspecified / J44.9(ICD-10) 08/09/2005 Active Pure NA Active [facility] hypercholesterolem [place] ia, unspecified / Repository E78.00(ICD-10) 10/28/2017 Active Encounter for NA Active [facility] screening for [place] other viral Repository diseases / Z11.59(ICD-10) 07/29/2017 Active Encounter for Active [facility] screening [place] mammogram for Repository malignant neoplasm of breast / Z12.31(ICD-10) PROCEDURES PROCEDURES No Procedure Records FoundRESULTS RESULTS LIPID PANEL, BASIC Collected: 04/19/2018 Status: F Source: [place] 8:51 AM [facility] REPOSITORY TYPE CODE TESTS RESULT OUT OF REFERENCE UNITS RANGE LAB CHOL <200 mg/dL Cholesterol 152 Result Comment: <200 mg/dL, Desirable 200-239 mg/dL, Borderline high >239 mg/dL, High LAB TRIGLY <150 mg/dL Triglyceride 57 Result Comment: <150 mg/dL, Normal 150-199 mg/dL, Borderline high 200-499 mg/dL, High >499 mg/dL, Very high LAB HDL >39 mg/dL HDL-Cholesterol 69 Result Comment: 40-59 mg/dL, Acceptable >59 mg/dL, High: Negative risk factor for coronary heart disease <40 mg/dL, Low: Positive risk factor for coronary heart disease LAB LDL <100 mg/dL LDL-Cholesterol 72 Result Comment: <100 mg/dL, Optimal 100-129 mg/dL, Near optimal/above optimal 130-159 mg/dL, Borderline high 160-189 mg/dL, High >189 mg/dL, Very high Secondary prevention optimal LDL Cholesterol levels are recommended to be < 70 mg/dL LAB NONHDL <130 mg/dL Non HDL Cholesterol 83 Result Comment: <130 mg/dL, Optimal 130-159 mg/dL, Near optimal/above optimal 160-189 mg/dL, Borderline high 190-219 mg/dL, High >219 mg/dL, Very high Secondary prevention optimal non HDL Cholesterol levels are recommended to be < 100 mg/dL LAB FT hrs Fasting Time 12 LAB VLDL <30 mg/dL VLDL Cholesterol 11 LAB TCHDL <5.10 TC:HDL Ratio 2.20 LAB LDLHDL <2.54 LDL:HDL Ratio 1.04 Result Comment: Reference: 1. National Cholesterol Education Program ATP III Guideline At-A-Glance Quick Desk Reference: National Heart, Lung, and [facility] [place]. National Institutes of Health. 2001: NIH Publication No. 01-3305. 2. An International Atherosclerosis Society position paper: global recommendations for the management of dyslipidemia: executive summary, Atherosclerosis. 2014: 232(2):410-413. Performed By: #### LIPB #### [facility] [address] [address] PROGRESS Observed: 04/18/2018 Status: COMPLETED Source: [place] 2:34 PM [facility] REPOSITORY HNO ID: [id number] Author: Suki Marcum Service: (none) Author Type: Physician Type: Progress Notes Filed: 04/18/2018 8:07 PM Note Text: Chey Jeffers a 57 year old female who presents for follow up of colonosocpy 04/07/18 - I have recommended follow up in 5 years for history of colon polyps though no colon polyps were noted Also, random mucosal boipsies through colon revealed no microscopic colitis She also underwent an EGD 04/07/18 - revealing - mild gastritis, GERD no Barretts', also H pylori negative PAST MEDICAL HISTORY - Abnormal ultrasound of breast 06/17/2013 - Acute gastritis - Ankylosing spondylitis (HCC) - Anxiety and depression 06/12/2005 - Asthma with chronic obstructive pulmonary disease (COPD) (HCC) 05/24/2005 - Bilateral renal cysts 03/11/2015 - Calculus of kidney - Dysthymic disorder Depression (non-psychotic) - Enterocolitis due to Clostridium difficile 01/12/2015 - Esophageal reflux - HNP (herniated nucleus pulposus), lumbar 08/22/2011 - Intrinsic asthma, unspecified 08/05/2008 - Irritable bowel syndrome Irritable bowel - FDC 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 01/16/2017 - Menopause syndrome 01/19/2005 - Myalgia and myositis, unspecified - Pure hypercholesterolemia - Serrated adenoma of colon 07/29/2014 - Symptomatic menopausal or female climacteric states - Unspecified asthma(493.90) - Unspecified sinusitis (chronic) 06/21/2008 PAST SURGICAL HISTORY - COLONOSCOP W/ OR W/O BRSH SPEC 04/24/2001 Colonoscopy - COLONOSCOP W/ OR W/O BRSH SPEC 06/16/2013 Colonoscopy - COLONOSCOP W/ OR W/O BRSH SPEC 03/10/2014 Colonoscopy - COLONOSCOP W/ OR W/O BRSH SPEC 03/10/15 Colonoscopy - EGD W/O OR W/BRUSH/WASH 04/24/2001 EGD - EGD W/O OR W/BRUSH/WASH 07/11/2009 EGD - EXCISION NOSE POLYP(S),SIMPLE 2007 Nasal polypectomy, Dr. Mcclelland - LAP COLECTMY W/ILEUM/ILEOCOL 07-16-14 - PAST SURGICAL HISTORY OF 2013 left breast biopsy- benign - REMOVAL GALLBLADDER 1998 Cholecystectomy - REMV CATARACT EXTRACAP,INSERT LENS 10/10-2013 Cataract Extraction with PC IOL - REPAIR OF NASAL SEPTUM 2006 Septoplasty - SINUS SURGERY PROCEDURE Bilateral 04/02/2017 sinonasal polypectomy, revision maxillary antrostomy, total ethmoidectomy, sphenoidotomy - TOTAL ABDOM HYSTERECTOMY 1992 Hysterectomy, OPAL BSO FAMILY HISTORY - Cancer Maternal Grandmother lung - Colon Cancer Maternal Aunt - COPD Maternal Uncle - Coronary Artery Disease Paternal Aunt - Breast Cancer Other mothers side (cousin) - Cancer Maternal Uncle lung - Emphysema Father - Heart Father - Emphysema Mother diabetic - Heart Mother Blockage and she needs a bypass, but her COPD prevents CURRENT MEDICATIONS fentaNYL (DURAGESIC) 25 mcg/hr Apply 1 Patch as directed every 72 hours for 30 days.Earliest Fill Date: 01/28/18 Disp: 10 Patch Rfl: 0 [START ON 02/28/2018] fentaNYL (DURAGESIC) 25 mcg/hr Apply 1 Patch as directed every 72 hours for 30 days.Earliest Fill Date: 02/28/18 Disp: 10 Patch Rfl: 0 [START ON 03/31/2018] fentaNYL (DURAGESIC) 25 mcg/hr Apply 1 Patch as directed every 72 hours for 30 days.Earliest Fill Date: 03/31/18 Disp: 10 Patch Rfl: 0 ipratropium-albuterol (DUONEB) 0.5 mg-3 mg(2.5 mg base)/3 mL nebu Inhale 3 mL as instructed every 6 hours as needed. Disp: 30 Vial Rfl: 5 montelukast (SINGULAIR) 10 mg tablet take 1 tablet by mouth at bedtime Disp: 90 tablet Rfl: 3 Estradiol (ESTRACE) 0.5 mg tablet take 1 tablet by mouth once daily Disp: 90 tablet Rfl: 1 ranitidine (ZANTAC) 150 mg tablet take 1 tablet by mouth twice a day Disp: 180 tablet Rfl: 3 clonazePAM (KLONOPIN) 0.5 mg tablet Take 1 tablet by mouth twice daily for 180 days. Disp: 60 tablet Rfl: 5 imipramine HCl (TOFRANIL) 25 mg tablet Take 2 tablets by mouth daily at bedtime. Disp: 180 tablet Rfl: 1 albuterol HFA (VENTOLIN HFA) 90 mcg/actuation inhaler Inhale 2 Puffs as instructed every 4 hours as needed for Wheezing/Shortness of Breath. Disp: 1 Inhaler Rfl: 2 sucralfate (CARAFATE) 1 gram tablet Take 1 tablet by mouth before meals and at bedtime. Disp: 360 tablet Rfl: 1 simvastatin (ZOCOR) 40 mg tablet Take 1 tablet by mouth daily at bedtime. Disp: 90 tablet Rfl: 3 dicyclomine (BENTYL) 10 mg capsule Take 1 capsule by mouth four times daily. (Patient taking differently: Take 10 mg by mouth three times daily. ) Disp: 360 capsule Rfl: 4 lansoprazole (PREVACID) 30 mg capsule take 1 capsule by mouth once daily Disp: 30 capsule Rfl: 11 fluticasone (FLONASE) 50 mcg/actuation nasal spray Use in the nose. SHAKE WELL before using. Blow nose prior to use. Prime pump before using. Disp: Rfl: LOPERAMIDE HCL (IMODIUM ORAL) Take by mouth as needed. Disp: Rfl: Cholecalciferol, Vitamin D3, (VITAMIN D) 1,000 unit cap Take 1,000 Units by mouth once daily. Disp: Rfl: fexofenadine (NAN) 180 mg ORAL tablet Take one(1) tablet daily. Disp: 90 Tab Rfl: 3 vit e acetate/gly/dimeth/water(CETAPHIL MOISTURIZING LOTION) apply twice daily Disp: 1 Rfl: 0 SOCIAL HISTORY: Patient is single. She has never smoked. Chey reports her alcohol use as never. REVIEW OF SYSTEMS: GENERAL: No weight loss, malaise or fevers RESPIRATORY: Severe COPD CARDIOVASCULAR: Negative for chest pain, leg swelling, hypertension, CHF or palpitations GI: The patient states that her appetite has been adequate. She so,etimes get hungry. There has been some nausea, no vomiting. She admits to dysphagia and denies odynophagia. There has not been indigestion or heartburn. There has not been regurgitation. Bowel habits have been irregular. There has been diarrhea. There has not been constipation. The patient denies rectal bleeding. There has not been melena. Intermittent abdominal pain that is located in the lower abodmen, related to the IBS episodes.. PSYCH: Positive for anxiety and depression. MUSCULOSKELETAL: Fibromyalgia and chronic back pain from ankylosing spondylitis - on Fentanyl patch HEMATOLOGY/LYMPHOLOGY Negative for prolonged bleeding, bruising easily or swollen nodes ENDOCRINE: Negative for thyroid or diabetes. NEURO: History of migraine headaches All other reviewed and negative other than HPI. PHYSICAL EXAMINATION: Blood pressure 107/64, pulse 109, height 152.4 cm (5'), weight 42.5 kg (93 lb 9.6 oz). General Appearance: Alert, in no acute distress. Skin: Skin color, texture, turgor normal, no suspicious rashes or lesions. Head: Normocephalic, no masses, lesions or abnormalities. Eyes: Anicteric sclera. Oropharynx: Dentures. Lips, mucosa, and tongue normal, oropharynx normal. Neck: Supple, no adenopathy; thyroid symmetric, normal size. Lungs: Lungs clear to auscultation. No wheezing, rhonchi, rales. (she tells me she did an aerosol treatment prior to appointment) Heart: RRR without murmur. Abdomen: Abdomen soft, non-tender. Bowel sounds normal. No masses, organomegaly. Extremities: No deformities, edema, skin discoloration, clubbing or cyanosis. Peripheral Pulses: Normal. Neurologic: Gait normal. Sensation grossly intact. Assessment/Plan: I have recommended the following: - no further EGD required for surveillance. - Colonoscopy in 5 years Recommend fiber supplemenation - 25-30 grams per day for irritable bowel syndrome. Also recommend adequate hydration, at least 8-10 glasses of water per day. Follow up as per needed. Patient to return to her primary physician for medical care. I have answered all her questions and she has no further questions. PROGRESS Observed: 04/17/2018 Status: COMPLETED Source: [place] 9:09 AM [facility] REPOSITORY HNO ID: [id number] Author: Ellen Navarro Service: (none) Author Type: Physician Teleradiologist Type: Progress Notes Filed: 04/17/2018 9:33 AM Note Text: [facility] [place], 04/17/18: INTERVAL HISTORY: The patient is here for follow up of asthma; the last Pulmonary Clinic visit was 03/17/18. The patient admits to compliance with prescribed maintenance Rx: Symbicort 2 inhalations twice daily. There have been no ED visit(s) for the management of asthma exacerbation. No hospitalization(s) for management of asthma exacerbation. Has used no prednisone for the management of exacerbation. Rarely rescue bronchodilator use, with good relief. No nocturnal awakenings per month with asthma symptoms. Daily cough improved significantly since starting Symbicort. No wheezing. No dyspnea. No disruption in taste or voice associated with use of inhaled corticosteroid. No tremor, palpitations, or muscle cramping associated with bronchodilator inhalation. PMH: Updated with patient today. FAMH: Updated with patient today. SOCH: Updated with patient today. ROS: General: Generally feels good. Appetite good. Weight stable. Eyes, Ears, nose, throat: Post nasal drip, rhinorrhea, sinus congestion. Increased sinus pressure. No purulent nasal discharge, epistaxis. No hoarseness. Vision stable. Cardiac: No angina, edema, orthopnea. GI: No heartburn, dysphagia, diarrhea. Uro/DAMPER FITTER: No dysuria, hesitancy, nocturia. Musculoskeletal: No pain. Neuro: No headache, focal weakness, tremor. Skin: No rash. Otherwise negative. Immunization History Administered Date(s) Administered Pneumovax 04/08/2006 TD Adult 03/30/2015 Tdap (Age 7+) 03/09/2008 Allergies were verified and updated, and medications were reconciled with the patient at this visit. PHYSICAL EXAMINATION: BP 98/58 Pulse 102 Resp 14 Ht 5' .75 (1.54m) Wt 92 lb (41.7kg) SpO2 98% BMI 17.53 kg/(m2). Gen: No acute distress. Cooperative with examination. ENT: Nares clear. Oral hygeine good. Pharynx clear. No sign of oral thrush. Resp: No stridor, accessory respiratory muscle use. No crackles, wheezes. CV: Regular rythm. Heart tones normal. Radial pulses normal. Abd: Non distended. MSK: No kyphoscoliosis. Ext: Warm and well perfused. No cyanosis. Skin: No rash, eczema, urticaria. Neuro: Mental status normal. No tremor. DATA REVIEW: DATE: 01/27/18 04/17/18 FVC 2.64 (89 % pred) 2.72 (91 % pred) FEV1 2.14 (92 % pred) 2.27 (97 % pred) FEV1/FVC 0.81 0.83 TLC 4.85 (107 % pred) DLco 14.0 (68 % pred) Exhaled nitric oxide ([place]), 04/17/18: 150 (normal < 25). CT sinus, 03/28/18 IMPRESSION: Postoperative changes as above with extensive sequelae of chronic pansinusitis, progressed from the 2009 study. RESULT: Post-Surgical Findings: ? Bilateral middle nasal turbinectomies, uncinectomies/maxillary antrostomies, sphenoethmoid osteotomies, and ethmoidectomies. Sinus Chambers: ? Moderate left and mild right mucosal thickening in the frontal sinuses and extending into the frontal sinus drainage pathways. ? Mucosal thickening marginating the ethmoidectomies. ?Opacification of the right sphenoid sinus. ?Moderate mucosal thickening throughout the left sphenoid sinus with patent left sphenoethmoidal ostium. ?Moderate mucosal thickening throughout the maxillary sinuses with extensive mucoperiosteal thickening. ?Scattered areas of hyperdensity throughout the mucosal thickening and secretions which may relate to inspissated secretions or fungal elements. Nasal Cavities: ? Widely patent with midline positioning of the nasal septum. ?Mucosal irregularity or secretions extending to the right of midline from the posterior nasal septum (series 3, image 24). ? Heterogenous secretions in the posterior nasopharynx on the left. Developmental Anomalies: ? None Ostiomeatal Complex: ? Patent bilateral maxillary antrostomies. Other: ?The visualized mastoid air cells and middle ear cavities are clear. ?Bilateral cataract surgery. ?The soft tissues of the face and orbits are within normal limits within the limitations of the study. Labs, 03/17/18 IgE 44.3 Eosinophil 2.67 IMPRESSION and RECOMMENDATIONS: Asthma, severe persistent, not well controlled. Elevation of the Isabella is consistent with ongoing eosinophilic asthmatic airway inflammation. 1. I reviewed the pathophysiology of asthma, NIH guidelines for evaluation and management, and mechanisms of action and side effects of medical therapy (ICS, bronchodilators) with the patient. 2. Continue Symbicort 2 inhalations twice daily. Rinse mouth after each use to help prevent oral thrush. 3. Continue Singulair 1 tablet at bedtime. 4. Continue Albuterol HFA inhaler, 2 inhalations 10?15 minutes prior to activities associated with shortness of breath, and as needed for rescue relief of shortness of breath or wheezing, up to 4 times daily. 5. Based on CT sinus and Isabella result, referral to ENT. Patient is an established patient of Dr. Mcclelland at [facility]. 6. Re-assess in 3 months, sooner if needed. Chronic rhinosinusitis with acute exacerbation. 1. Levaquin 500 mg once a day for 14 days. 2. Follow up with [facility]. I addressed the questions of the patient, and she expressed understanding and acceptance of my answers. Ellen Navarro PA-C [facility] [place] [address] [place] [id number] CNOV Observed: 04/17/2018 Status: COMPLETED Source: [place] 9:00 AM [facility] REPOSITORY Office Visit (PULMWS) CHEY JEFFERS ([id number]) 1960 F Date Time Provider Department 04/17/18 9:00 AM ELLEN NAVARRO PULMWS During your visit today, we recorded the following information about you: Pulse Respiration Blood pressure Weight 102/minute 14/minute 98/58 41.7 kg Height 1.543 m Ivonne Jett MICHELLE 04/17/2018 8:59 AM Signed Intake information documented in the prior visit with Teresita Ruff, CARDIOGRAPHER today. Ellen Navarro PA-C 04/17/2018 9:33 AM Signed [facility] [place], 04/17/18: INTERVAL HISTORY: The patient is here for follow up of asthma; the last Pulmonary Clinic visit was 03/17/18. The patient admits to compliance with prescribed maintenance Rx: Symbicort 2 inhalations twice daily. There have been no ED visit(s) for the management of asthma exacerbation. No hospitalization(s) for management of asthma exacerbation. Has used no prednisone for the management of exacerbation. Rarely rescue bronchodilator use, with good relief. No nocturnal awakenings per month with asthma symptoms. Daily cough improved significantly since starting Symbicort. No wheezing. No dyspnea. No disruption in taste or voice associated with use of inhaled corticosteroid. No tremor, palpitations, or muscle cramping associated with bronchodilator inhalation. PMH: Updated with patient today. FAMH: Updated with patient today. SOCH: Updated with patient today. ROS: General: Generally feels good. Appetite good. Weight stable. Eyes, Ears, nose, throat: Post nasal drip, rhinorrhea, sinus congestion. Increased sinus pressure. No purulent nasal discharge, epistaxis. No hoarseness. Vision stable. Cardiac: No angina, edema, orthopnea. GI: No heartburn, dysphagia, diarrhea. Uro/DAMPER FITTER: No dysuria, hesitancy, nocturia. Musculoskeletal: No pain. Neuro: No headache, focal weakness, tremor. Skin: No rash. Otherwise negative. Immunization History Administered Date(s) Administered Pneumovax 04/08/2006 TD Adult 03/30/2015 Tdap (Age 7+) 03/09/2008 Allergies were verified and updated, and medications were reconciled with the patient at this visit. PHYSICAL EXAMINATION: BP 98/58 Pulse 102 Resp 14 Ht 5' .75 (1.54m) Wt 92 lb (41.7kg) SpO2 98% BMI 17.53 kg/(m2). Gen: No acute distress. Cooperative with examination. ENT: Nares clear. Oral hygeine good. Pharynx clear. No sign of oral thrush. Resp: No stridor, accessory respiratory muscle use. No crackles, wheezes. CV: Regular rythm. Heart tones normal. Radial pulses normal. Abd: Non distended. MSK: No kyphoscoliosis. Ext: Warm and well perfused. No cyanosis. Skin: No rash, eczema, urticaria. Neuro: Mental status normal. No tremor. DATA REVIEW: DATE: 01/27/18 04/17/18 FVC 2.64 (89 % pred) 2.72 (91 % pred) FEV1 2.14 (92 % pred) 2.27 (97 % pred) FEV1/FVC 0.81 0.83 TLC 4.85 (107 % pred) DLco 14.0 (68 % pred) Exhaled nitric oxide (Isabella), 04/17/18: 150 (normal < 25). CT sinus, 03/28/18 IMPRESSION: Postoperative changes as above with extensive sequelae of chronic pansinusitis, progressed from the 2009 study. RESULT: Post-Surgical Findings: ? Bilateral middle nasal turbinectomies, uncinectomies/maxillary antrostomies, sphenoethmoid osteotomies, and ethmoidectomies. Sinus Chambers: ? Moderate left and mild right mucosal thickening in the frontal sinuses and extending into the frontal sinus drainage pathways. ? Mucosal thickening marginating the ethmoidectomies. ?Opacification of the right sphenoid sinus. ?Moderate mucosal thickening throughout the left sphenoid sinus with patent left sphenoethmoidal ostium. ?Moderate mucosal thickening throughout the maxillary sinuses with extensive mucoperiosteal thickening. ?Scattered areas of hyperdensity throughout the mucosal thickening and secretions which may relate to inspissated secretions or fungal elements. Nasal Cavities: ? Widely patent with midline positioning of the nasal septum. ?Mucosal irregularity or secretions extending to the right of midline from the posterior nasal septum (series 3, image 24). ? Heterogenous secretions in the posterior nasopharynx on the left. Developmental Anomalies: ? None Ostiomeatal Complex: ? Patent bilateral maxillary antrostomies. Other: ?The visualized mastoid air cells and middle ear cavities are clear. ?Bilateral cataract surgery. ?The soft tissues of the face and orbits are within normal limits within the limitations of the study. Labs, 03/17/18 IgE 44.3 Eosinophil 2.67 IMPRESSION and RECOMMENDATIONS: Asthma, severe persistent, not well controlled. Elevation of the Isabella is consistent with ongoing eosinophilic asthmatic airway inflammation. 1. I reviewed the pathophysiology of asthma, NIH guidelines for evaluation and management, and mechanisms of action and side effects of medical therapy (ICS, bronchodilators) with the patient. 2. Continue Symbicort 2 inhalations twice daily. Rinse mouth after each use to help prevent oral thrush. 3. Continue Singulair 1 tablet at bedtime. 4. Continue Albuterol HFA inhaler, 2 inhalations 10?15 minutes prior to activities associated with shortness of breath, and as needed for rescue relief of shortness of breath or wheezing, up to 4 times daily. 5. Based on CT sinus and Isabella result, referral to ENT. Patient is an established patient of Dr. Mcclelland at [facility]. 6. Re-assess in 3 months, sooner if needed. Chronic rhinosinusitis with acute exacerbation. 1. Levaquin 500 mg once a day for 14 days. 2. Follow up with [facility]. I addressed the questions of the patient, and she expressed understanding and acceptance of my answers. Ellen Navarro PA-C [facility] [address] [place] [address] [phone] Ellen Navarro PA-C 04/17/2018 9:32 AM Signed Asthma, severe persistent, not well controlled. Elevation of the Isabella is consistent with ongoing eosinophilic asthmatic airway inflammation. 1. I reviewed the pathophysiology of asthma, NIH guidelines for evaluation and management, and mechanisms of action and side effects of medical therapy (ICS, bronchodilators) with the patient. 2. Continue Symbicort 2 inhalations twice daily. Rinse mouth after each use to help prevent oral thrush. 3. Continue Singulair 1 tablet at bedtime. 4. Continue Albuterol HFA inhaler, 2 inhalations 10?15 minutes prior to activities associated with shortness of breath, and as needed for rescue relief of shortness of breath or wheezing, up to 4 times daily. 5. Based on CT sinus and Isabella result, referral to ENT. Patient is an established patient of Dr. Mcclelland at [facility]. 6. Re-assess in 3 months, sooner if needed. Chronic rhinosinusitis with acute exacerbation. 1. Levaquin 500 mg once a day for 14 days. 2. Follow up with [facility]. Referring Provider: ELLEN NAVARRO [[id number]] Allergies As of Date: 04/17/2018 Noted Allergy Reaction CODEINE 02/15/2005 4 - Hives VICODIN (HYDROCODONE-ACETAMINOPHE*02/15/2005 4 - Hives DEMEROL (MEPERIDINE (PF)) 01/03/2006 2 - Rash BACTRIM (SULFAMETHOXAZOLE-TRIMETH*07/25/2005 Comments: uncertain CELEXA (CITALOPRAM HYDROBROMIDE) 07/25/2005 8 - GI Upset DOXY (DOXYCYCLINE) 06/04/2005 Comments: rash and asthma DUREZOL (DIFLUPREDNATE) 03/04/2014 2 - Rash Environmental allergies [Other] 02/25/2006 Comments: Dogs, molds IBUPROFEN 07/25/2005 12 - Shortness of Breath LEXAPRO (ESCITALOPRAM OXALATE) 07/25/2005 8 - GI Upset LYRICA (PREGABALIN) 04/10/2011 1 - Mental Status Change Comments: dizzy MAPROTILINE 05/16/2009 9 - Itching MUCOMYST (ACETYLCYSTEINE) 10/30/2012 3 - Cough Comments: increase wheezing OXYCODONE 01/17/2011 12 - Shortness of Breath PENICILLINS 01/09/2005 Comments: rash PREDNISONE 07/30/2006 9 - Itching TORADOL (KETOROLAC TROMETHAMINE) 04/06/2011 7 - Swelling TYLENOL (ACETAMINOPHEN) 01/02/2006 5 - Intolerance Comments: asthma ULTRAM (TRAMADOL HCL) 07/25/2005 14 - Other: See Comments Comments: chest pains VANCOMYCIN 01/21/2015 14 - Other: See Comments Comments: Wheezing after taking, legs swollen and tongue swelling and scratchy neck VENLAFAXINE 07/09/2011 8 - GI Upset ZITHROMAX (AZITHROMYCIN) 01/19/2005 9 - Itching MIRTAZAPINE 11/17/2013 14 - Other: See Comments Comments: Hand shakes. Date Reviewed: 04/17/2018 Reviewed by: Ellen Navarro - Fully Assessed Reason for Visit: Established Patient [175] Cmt: asthma Primary Visit Diagnosis:Severe persistent asthma, unspecified whether complicated [J45.50] Other Visit Diagnosis:Chronic sinusitis, unspecified location [J32.9] Order(s):levoFLOXacin (LEVAQUIN) 500 mg tabletTake 1 tablet by mouth once daily for 14 days.Disp: 14 tabletRfl: 0 Prescriptions as of 04/17/2018 Sig: ALBUTEROL SULFATE HFA 90 MCG/* Inhale 2 Puffs as instructed * BUDESONIDE-FORMOTEROL HFA 160* Inhale 2 Puffs as instructed * CALTRATE PLUS ORAL Take 1 capsule by mouth once * CHOLECALCIFEROL (VITAMIN D3) * Take 1,000 Units by mouth onc* CLONAZEPAM 0.5 MG TABLET Take 1 tablet by mouth twice * DICYCLOMINE 10 MG CAPSULE Take 1 capsule by mouth four * Patient taking differently: Take 10 mg by mouth three berny* ESTRADIOL 0.5 MG TABLET take 1 tablet by mouth once d* FENTANYL 25 MCG/HR TRANSDERMA* Apply 1 Patch as directed alissa* FEXOFENADINE 180 MG TABLET Take one(1) tablet daily. IMIPRAMINE 25 MG TABLET Take 2 tablets by mouth daily* IPRATROPIUM-ALBUTEROL 0.5 MG-* Inhale 3 mL as instructed alissa* LANSOPRAZOLE 30 MG CAPSULE,DE* take 1 capsule by mouth once * IMODIUM ORAL Take by mouth as needed. MONTELUKAST 10 MG TABLET take 1 tablet by mouth at bed* RANITIDINE 150 MG TABLET take 1 tablet by mouth twice * SIMVASTATIN 40 MG TABLET Take 1 tablet by mouth daily * SUCRALFATE 1 GRAM TABLET Take 1 tablet by mouth before* CETAPHIL MOISTURIZING LOTION apply twice daily FLUTICASONE 50 MCG/ACTUATION * Use in the nose. 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*INVALID FOR*02/25/2015 ANKYLOSING SPONDYLITIS [M45.9] INVALID FOR* CHRONIC RHINITIS [J31.0] INVALID FOR* Sinusitis, chronic [J32.9] INVALID FOR* Intrinsic asthma, unspecified [J45.909] INVALID FOR*08/31/2016 ESOPHAGEAL REFLUX [K21.9] INVALID FOR* Acute gastritis without mention of hemorrhage [*INVALID FOR*02/25/2015 Fibromyalgia [M79.7] INVALID FOR* COPD (chronic obstructive pulmonary disease) (H*INVALID FOR*07/18/2017 Calcaneal spur [M77.30] INVALID FOR*02/25/2015 Plantar fasciitis [M72.2] INVALID FOR*02/25/2015 HNP (herniated nucleus pulposus), lumbar [M51.2*INVALID FOR*07/11/2016 Myofascial muscle pain [M79.18] INVALID FOR*07/11/2016 DDD (degenerative disc disease), lumbar [M51.36]INVALID FOR* Back pain [M54.9] INVALID FOR*07/11/2016 Osteoporosis [M81.0] INVALID FOR* Abnormal ultrasound of breast [R92.8] INVALID FOR*02/25/2015 Colon polyp [K63.5] INVALID FOR*10/16/2016 Serrated adenoma of colon [D12.6] INVALID FOR* Stress and adjustment reaction [F43.29] INVALID FOR*07/11/2016 Enterocolitis due to Clostridium difficile [A04*INVALID FOR*07/17/2016 Kidney stone on left side [N20.0] INVALID FOR*08/31/2016 Colonic polyp [K63.5] INVALID FOR*03/10/2015 Bilateral renal cysts [N28.1] INVALID FOR*07/11/2016 Abnormal toxicological findings [R89.2] INVALID FOR*01/16/2017 Nasal polyposis [J33.9] INVALID FOR* Menopause syndrome [N95.1] INVALID FOR* 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 Elevation of the Isabella is consistent with ongoing eosinophilic asthmatic airway inflammation. 1. I reviewed the pathophysiology of asthma, NIH guidelines for evaluation and management, and mechanisms of action and side effects of medical therapy (ICS, bronchodilators) with the patient. 2. Continue Symbicort 2 inhalations twice daily. Rinse mouth after each use to help prevent oral thrush. 3. Continue Singulair 1 tablet at bedtime. 4. Continue Albuterol HFA inhaler, 2 inhalations 10?15 minutes prior to activities associated with shortness of breath, and as needed for rescue relief of shortness of breath or wheezing, up to 4 times daily. 5. Based on CT sinus and Isbaella result, referral to ENT. Patient is an established patient of Dr. Mcclelland at [facility]. 6. Re-assess in 3 months, sooner if needed. Chronic rhinosinusitis with acute exacerbation. 1. Levaquin 500 mg once a day for 14 days. 2. Follow up with [facility]. Visit Notes: >> Ivonne Maliha MARTINEZ [facility] Apr 17, 2018 8:56 AM Status: Signed Intake information documented in the prior visit with Teresita Ruff CRT today. Prescriptions ordered this encounter Disp Refills Start End LEVOFLOXACIN 500 MG TABLET 14 t* 0 04/17/2018 05/01/2018 Route: ORAL Sig: Take 1 tablet by mouth once daily for 14 days. Medications Discontinued During This Encounter montelukast (SINGULAIR) 10 mg tablet 07/09/2014 04/17/2018 Class: Historical Med Route: ORAL Sig: Take 1 tablet by mouth daily at bedtime. Disc: Reason for discontinue is not on file. Disposition: Return in about 3 months (around 07/16/2018). Follow-up and Disposition History Recorded Encounter Status:Closed by ELLEN NAVARRO on 04/17/18 ELA Observed: 04/14/2018 Status: COMPLETED Source: [place] 9:20 AM [facility] RE[facility]IT[facility] CHEY JEFFERS ([id number]) 1960 F Date Time Provider Department 04/14/18 9:20 AM SUKI MARCUM During your visit today, we recorded the following information about you: Suki Marcum MD 04/18/2018 8:07 PM Signed Chey Cecilia Jeffers a 57 year old female who presents for follow up of colonosocpy 04/07/18 - I have recommended follow up in 5 years for history of colon polyps though no colon polyps were noted Also, random mucosal boipsies through colon revealed no microscopic colitis She also underwent an EGD 04/07/18 - revealing - mild gastritis, GERD no Barretts', also H pylori negative PAST MEDICAL HISTORY - Abnormal ultrasound of breast 06/17/2013 - Acute gastritis - Ankylosing spondylitis (HCC) - Anxiety and depression 06/12/2005 - Asthma with chronic obstructive pulmonary disease (COPD) (HCC) 05/24/2005 - Bilateral renal cysts 03/11/2015 - Calculus of kidney - Dysthymic disorder Depression (non-psychotic) - Enterocolitis due to Clostridium difficile 01/12/2015 - Esophageal reflux - HNP (herniated nucleus pulposus), lumbar 08/22/2011 - Intrinsic asthma, unspecified 08/05/2008 - Irritable bowel syndrome Irritable bowel - FDC 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 01/16/2017 - Menopause syndrome 01/19/2005 - Myalgia and myositis, unspecified - Pure hypercholesterolemia - Serrated adenoma of colon 07/29/2014 - Symptomatic menopausal or female climacteric states - Unspecified asthma(493.90) - Unspecified sinusitis (chronic) 06/21/2008 PAST SURGICAL HISTORY - COLONOSCOP W/ OR W/O BRSH SPEC 04/24/2001 Colonoscopy - COLONOSCOP W/ OR W/O BRSH SPEC 06/16/2013 Colonoscopy - COLONOSCOP W/ OR W/O BRSH SPEC 03/10/2014 Colonoscopy - COLONOSCOP W/ OR W/O BRSH SPEC 03/10/15 Colonoscopy - EGD W/O OR W/BRUSH/WASH 04/24/2001 EGD - EGD W/O OR W/BRUSH/WASH 07/11/2009 EGD - EXCISION NOSE POLYP(S),SIMPLE 2007 Nasal polypectomy, Dr. Mcclelland - LAP COLECTMY W/ILEUM/ILEOCOL 07-16-14 - PAST SURGICAL HISTORY OF 2013 left breast biopsy- benign - REMOVAL GALLBLADDER 1998 Cholecystectomy - REMV CATARACT EXTRACAP,INSERT LENS Cataract Extraction with PC IOL - REPAIR OF NASAL SEPTUM 2006 Septoplasty - SINUS SURGERY PROCEDURE Bilateral 04/02/2017 sinonasal polypectomy, revision maxillary antrostomy, total ethmoidectomy, sphenoidotomy - TOTAL ABDOM HYSTERECTOMY 1992 Hysterectomy, OPAL BSO FAMILY HISTORY - Cancer Maternal Grandmother lung - Colon Cancer Maternal Aunt - COPD Maternal Uncle - Coronary Artery Disease Paternal Aunt - Breast Cancer Other mothers side (cousin) - Cancer Maternal Uncle lung - Emphysema Father - Heart Father - Emphysema Mother diabetic - Heart Mother Blockage and she needs a bypass, but her COPD prevents CURRENT MEDICATIONS fentaNYL (DURAGESIC) 25 mcg/hr Apply 1 Patch as directed every 72 hours for 30 days.Earliest Fill Date: 01/28/18 Disp: 10 Patch Rfl: 0 [START ON 02/28/2018] fentaNYL (DURAGESIC) 25 mcg/hr Apply 1 Patch as directed every 72 hours for 30 days.Earliest Fill Date: 02/28/18 Disp: 10 Patch Rfl: 0 [START ON 03/31/2018] fentaNYL (DURAGESIC) 25 mcg/hr Apply 1 Patch as directed every 72 hours for 30 days.Earliest Fill Date: 03/31/18 Disp: 10 Patch Rfl: 0 ipratropium-albuterol (DUONEB) 0.5 mg-3 mg(2.5 mg base)/3 mL nebu Inhale 3 mL as instructed every 6 hours as needed. Disp: 30 Vial Rfl: 5 montelukast (SINGULAIR) 10 mg tablet take 1 tablet by mouth at bedtime Disp: 90 tablet Rfl: 3 Estradiol (ESTRACE) 0.5 mg tablet take 1 tablet by mouth once daily Disp: 90 tablet Rfl: 1 ranitidine (ZANTAC) 150 mg tablet take 1 tablet by mouth twice a day Disp: 180 tablet Rfl: 3 clonazePAM (KLONOPIN) 0.5 mg tablet Take 1 tablet by mouth twice daily for 180 days. Disp: 60 tablet Rfl: 5 imipramine HCl (TOFRANIL) 25 mg tablet Take 2 tablets by mouth daily at bedtime. Disp: 180 tablet Rfl: 1 albuterol HFA (VENTOLIN HFA) 90 mcg/actuation inhaler Inhale 2 Puffs as instructed every 4 hours as needed for Wheezing/Shortness of Breath. Disp: 1 Inhaler Rfl: 2 sucralfate (CARAFATE) 1 gram tablet Take 1 tablet by mouth before meals and at bedtime. Disp: 360 tablet Rfl: 1 simvastatin (ZOCOR) 40 mg tablet Take 1 tablet by mouth daily at bedtime. Disp: 90 tablet Rfl: 3 dicyclomine (BENTYL) 10 mg capsule Take 1 capsule by mouth four times daily. (Patient taking differently: Take 10 mg by mouth three times daily. ) Disp: 360 capsule Rfl: 4 lansoprazole (PREVACID) 30 mg capsule take 1 capsule by mouth once daily Disp: 30 capsule Rfl: 11 fluticasone (FLONASE) 50 mcg/actuation nasal spray Use in the nose. SHAKE WELL before using. Blow nose prior to use. Prime pump before using. Disp: Rfl: LOPERAMIDE HCL (IMODIUM ORAL) Take by mouth as needed. Disp: Rfl: Cholecalciferol, Vitamin D3, (VITAMIN D) 1,000 unit cap Take 1,000 Units by mouth once daily. Disp: Rfl: fexofenadine (NAN) 180 mg ORAL tablet Take one(1) tablet daily. Disp: 90 Tab Rfl: 3 vit e acetate/gly/dimeth/water(CETAPHIL MOISTURIZING LOTION) apply twice daily Disp: 1 Rfl: 0 SOCIAL HISTORY: Patient is single. She has never smoked. Chey reports her alcohol use as never. REVIEW OF SYSTEMS: GENERAL: No weight loss, malaise or fevers RESPIRATORY: Severe COPD CARDIOVASCULAR: Negative for chest pain, leg swelling, hypertension, CHF or palpitations GI: The patient states that her appetite has been adequate. She so,etimes get hungry. There has been some nausea, no vomiting. She admits to dysphagia and denies odynophagia. There has not been indigestion or heartburn. There has not been regurgitation. Bowel habits have been irregular. There has been diarrhea. There has not been constipation. The patient denies rectal bleeding. There has not been melena. Intermittent abdominal pain that is located in the lower abodmen, related to the IBS episodes.. PSYCH: Positive for anxiety and depression. MUSCULOSKELETAL: Fibromyalgia and chronic back pain from ankylosing spondylitis - on Fentanyl patch HEMATOLOGY/LYMPHOLOGY Negative for prolonged bleeding, bruising easily or swollen nodes ENDOCRINE: Negative for thyroid or diabetes. NEURO: History of migraine headaches All other reviewed and negative other than HPI. PHYSICAL EXAMINATION: Blood pressure 107/64, pulse 109, height 152.4 cm (5'), weight 42.5 kg (93 lb 9.6 oz). General Appearance: Alert, in no acute distress. Skin: Skin color, texture, turgor normal, no suspicious rashes or lesions. Head: Normocephalic, no masses, lesions or abnormalities. Eyes: Anicteric sclera. Oropharynx: Dentures. Lips, mucosa, and tongue normal, oropharynx normal. Neck: Supple, no adenopathy; thyroid symmetric, normal size. Lungs: Lungs clear to auscultation. No wheezing, rhonchi, rales. (she tells me she did an aerosol treatment prior to appointment) Heart: RRR without murmur. Abdomen: Abdomen soft, non-tender. Bowel sounds normal. No masses, organomegaly. Extremities: No deformities, edema, skin discoloration, clubbing or cyanosis. Peripheral Pulses: Normal. Neurologic: Gait normal. Sensation grossly intact. Assessment/Plan: I have recommended the following: - no further EGD required for surveillance. - Colonoscopy in 5 years Recommend fiber supplemenation - 25-30 grams per day for irritable bowel syndrome. Also recommend adequate hydration, at least 8-10 glasses of water per day. Follow up as per needed. Patient to return to her primary physician for medical care. I have answered all her questions and she has no further questions. Referring Provider: LEW VERDUZCO [[id number]] Allergies As of Date: 04/14/2018 Noted Allergy Reaction CODEINE 02/15/2005 4 - Hives VICODIN (HYDROCODONE-ACETAMINOPHE*02/15/2005 4 - Hives DEMEROL (MEPERIDINE (PF)) 01/03/2006 2 - Rash BACTRIM (SULFAMETHOXAZOLE-TRIMETH*07/25/2005 Comments: uncertain CELEXA (CITALOPRAM HYDROBROMIDE) 07/25/2005 8 - GI Upset DOXY (DOXYCYCLINE) 06/04/2005 Comments: rash and asthma DUREZOL (DIFLUPREDNATE) 03/04/2014 2 - Rash Environmental allergies [Other] 02/25/2006 Comments: Dogs, molds IBUPROFEN 07/25/2005 12 - Shortness of Breath LEXAPRO (ESCITALOPRAM OXALATE) 07/25/2005 8 - GI Upset LYRICA (PREGABALIN) 04/10/2011 1 - Mental Status Change Comments: dizzy MAPROTILINE 05/16/2009 9 - Itching MUCOMYST (ACETYLCYSTEINE) 10/30/2012 3 - Cough Comments: increase wheezing OXYCODONE 01/17/2011 12 - Shortness of Breath PENICILLINS 01/09/2005 Comments: rash PREDNISONE 07/30/2006 9 - Itching TORADOL (KETOROLAC TROMETHAMINE) 04/06/2011 7 - Swelling TYLENOL (ACETAMINOPHEN) 01/02/2006 5 - Intolerance Comments: asthma ULTRAM (TRAMADOL HCL) 07/25/2005 14 - Other: See Comments Comments: chest pains VANCOMYCIN 01/21/2015 14 - Other: See Comments Comments: Wheezing after taking, legs swollen and tongue swelling and scratchy neck VENLAFAXINE 07/09/2011 8 - GI Upset ZITHROMAX (AZITHROMYCIN) 01/19/2005 9 - Itching MIRTAZAPINE 11/17/2013 14 - Other: See Comments Comments: Hand shakes. Date Reviewed: 04/14/2018 Reviewed by: Marilia Breen LPN - Fully Assessed Reason for Visit: Post Op [174] Primary Visit Diagnosis:Other irritable bowel syndrome [K58.8] Other Visit Diagnoses:History of colonic polyps [Z86.010] GERD without esophagitis [K21.9] Prescriptions as of 04/14/2018 Sig: ALBUTEROL SULFATE HFA 90 MCG/* Inhale 2 Puffs as instructed * BUDESONIDE-FORMOTEROL HFA 160* Inhale 2 Puffs as instructed * CALTRATE PLUS ORAL Take 1 capsule by mouth once * CHOLECALCIFEROL (VITAMIN D3) * Take 1,000 Units by mouth onc* CLONAZEPAM 0.5 MG TABLET Take 1 tablet by mouth twice * DICYCLOMINE 10 MG CAPSULE Take 1 capsule by mouth four * Patient taking differently: Take 10 mg by mouth three berny* ESTRADIOL 0.5 MG TABLET take 1 tablet by mouth once d* FENTANYL 25 MCG/HR TRANSDERMA* Apply 1 Patch as directed alissa* FEXOFENADINE 180 MG TABLET Take one(1) tablet daily. FLUTICASONE 50 MCG/ACTUATION * Use in the nose. SHAKE WELL * FLUTICASONE 50 MCG/ACTUATION * Use 1 Beaman in each nostril t* IMIPRAMINE 25 MG TABLET Take 2 tablets by mouth daily* IPRATROPIUM-ALBUTEROL 0.5 MG-* Inhale 3 mL as instructed alissa* LANSOPRAZOLE 30 MG CAPSULE,DE* take 1 capsule by mouth once * IMODIUM ORAL Take by mouth as needed. MONTELUKAST 10 MG TABLET take 1 tablet by mouth at bed* RANITIDINE 150 MG TABLET take 1 tablet by mouth twice * SIMVASTATIN 40 MG TABLET Take 1 tablet by mouth daily * SUCRALFATE 1 GRAM TABLET Take 1 tablet by mouth before* CETAPHIL MOISTURIZING LOTION apply twice daily Problem List As Of Date 04/14/2018 Noted Resolved Asthma with chronic obstructive pulmonary disea*INVALID FOR* CHRONIC CYSTITIS NEC [N30.20] INVALID FOR* Vaginitis and vulvovaginitis, unspecified [N76.*INVALID FOR*02/25/2015 Anxiety and depression [F41.9, F32.9] INVALID FOR* PURE HYPERCHOLESTEROLEM [E78.00] Acute gastritis [535.0] 02/25/2015 Irritable bowel syndrome [K58.9] Congenital anomalies of foot, 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*INVALID FOR*02/25/2015 ANKYLOSING SPONDYLITIS [M45.9] INVALID FOR* CHRONIC RHINITIS [J31.0] INVALID FOR* Sinusitis, chronic [J32.9] INVALID FOR* Intrinsic asthma, unspecified [J45.909] INVALID FOR*08/31/2016 ESOPHAGEAL REFLUX [K21.9] INVALID FOR* Acute gastritis without mention of hemorrhage [*INVALID FOR*02/25/2015 Fibromyalgia [M79.7] INVALID FOR* COPD (chronic obstructive pulmonary disease) (H*INVALID FOR*07/18/2017 Calcaneal spur [M77.30] INVALID FOR*02/25/2015 Plantar fasciitis [M72.2] INVALID FOR*02/25/2015 HNP (herniated nucleus pulposus), lumbar [M51.2*INVALID FOR*07/11/2016 Myofascial muscle pain [M79.18] INVALID FOR*07/11/2016 DDD (degenerative disc disease), lumbar [M51.36]INVALID FOR* Back pain [M54.9] INVALID FOR*07/11/2016 Osteoporosis [M81.0] INVALID FOR* Abnormal ultrasound of breast [R92.8] INVALID FOR*02/25/2015 Colon polyp [K63.5] INVALID FOR*10/16/2016 Serrated adenoma of colon [D12.6] INVALID FOR* Stress and adjustment reaction [F43.29] INVALID FOR*07/11/2016 Enterocolitis due to Clostridium difficile [A04*INVALID FOR*07/17/2016 Kidney stone on left side [N20.0] INVALID FOR*08/31/2016 Colonic polyp [K63.5] INVALID FOR*03/10/2015 Bilateral renal cysts [N28.1] INVALID FOR*07/11/2016 Abnormal toxicological findings [R89.2] INVALID FOR*01/16/2017 Nasal polyposis [J33.9] INVALID FOR* Menopause syndrome [N95.1] INVALID FOR* 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 PATIENT GENDER DATA: Female. status: : No status: NO. PATIENT RELEVANT IMPLANT DATA REVIEWED: Not Applicable CONTRAST INDUCED NEPHROPATHY RISK FACTORS: Not applicable CREATININE: Creatinine Date Value Ref Range Status 03/25/2018 0.89 0.58 - 0.96 mg/dL Final 10/28/2017 0.63 0.58 - 0.96 mg/dL Final 08/31/2016 0.67 0.58 - 0.96 mg/dL Final eGFR-All Other Races Date Value Ref Range Status 03/25/2018 >60 . Final Comment: eGFR (Estimated GFR) Units of measure: mL/min/1.73 meters squared eGFR is derived from the reexpressed MDRD Study equation using the following parameters: serum creatinine, age, gender and race. The creatinine assay has been calibrated to be traceable to IDMS. An eGFR <60 mL/min/1.73m2 for >3 months is consistent with chronic kidney disease. Refer to KDOQI guidelines for clinical interpretation. In patients with unstable renal function, e.g. those with acute kidney injury, the eGFR may not accurately reflect actual GFR. eGFR- Date Value Ref Range Status 03/25/2018 >60 Final P.O.C.T. RESULTS: POC done: Yes, See Lab Tab April 11, 2018 RADIOLOGIST NOTIFIED?: No ALLERGIES: Reviewed and unchanged CONTRAST ALLERGY: NO. PERIPHERAL IV ACCESS: Ambulatory: IV type: A peripheral IV was started in the Left antecubital site with a Angio cath: 22 gauge., Site assessment: Clean,Dry and Intact, Site disposition Discontinued RADIOLOGY DEPARTMENT: CT; Exam(s) Completed: Abdomen/Pelvis SIGNED BY: Wendy Aburto Ct April 11, 2018 10:[address] ABD/PEL W IVCON Observed: 04/11/2018 Status: F Source: [place] 10:06 AM [facility] REPOSITORY * * *Final Report* * * DATE OF EXAM: Apr 11 2018 10:06AM [facility] 0530 - CT ABD/PEL W IVCON / PROCEDURE REASON: multiple diagnoses * * * * Physician Interpretation * * * * EXAMINATION: CT ABDOMEN AND PELVIS WITH IV CONTRAST CLINICAL HISTORY: Abdominal pain and weight loss TECHNIQUE: CT of the abdomen and pelvis was performed using standard technique, scanning from just above the dome of the diaphragm to the symphysis pubis. MQ: CTAP_3 Contrast: IV: 77 ml of Omnipaque 300 Oral: 50 ml of 50ML Omnipaque [address] Radiation dose: Integrated Dose-length product (DLP) for this visit = 141 mGy*cm. CT Dose Reduction Employed: Automated exposure control(AEC) and iterative recon COMPARISON: None. RESULT: Liver: No mass. Biliary: Mild biliary dilation but likely related to cholecystectomy. Spleen: No mass. No splenomegaly. Pancreas: No mass or duct dilation. Moderate atrophy. Adrenals: No mass. Kidneys: Subcentimeter lesions are present in both kidneys which are too small to accurately characterize. A 9 mm lesion in the upper pole of the RIGHT kidney (3:29) is higher in attenuation than the others. No calculus or hydronephrosis. GI tract: No dilation or wall thickening. Lymph nodes: No abdominal or pelvic lymphadenopathy. Mesentery/Peritoneum: No ascites or mass. Retroperitoneum: No mass. Vasculature: The celiac axis and SMA are patent. The portal vein and branches, splenic vein, SMV, and hepatic veins are patent. No aortic aneurysm. Pelvis: No mass, ascites or fluid collection. Normal bladder wall thickness. Bones/Soft Tissues: Mild degenerative changes in the spine. No acute abnormalities. Lower thorax: Unremarkable. IMPRESSION: Multiple subcentimeter indeterminate renal lesions. One in the upper pole of the RIGHT kidney measuring 9 mm is slightly higher in attenuation than the others. Ultrasound may allow definitive characterization No acute abnormality elsewhere in the abdomen or pelvis Interior Decorator: SHANON Transcribe Date/Time: Apr 12 2018 10:59A Dictated by : ALBA MEZA MD This examination was interpreted and the report reviewed and electronically signed by: ALBA MEZA MD on Apr 12 2018 11:03AM EST [id number] OPERATIVE REPORT - Observed: 04/07/2018 Status: F Source: [facility] 12:59 PM [facility] REPOSITORY [facility] Medical Records Department [address] [place] [address] Operative Report - Endoscopy MR#: [id number] Acct: [id number] Name: CHEY JEFFERS Rep #: [id number] : 1960 57 From: Suki Marcum MD PCP: Lew Verduzco MD Status: REG [facility] Patient Name: Chey Jeffers Procedure Date: 04/07/2018 12:17 PM Date of : 1960 Age: 57 Procedure: Colonoscopy Indications: High risk colon cancer surveillance: Personal history of colonic polyps Providers: Suki Marcum MD Medicines: See the Anesthesia note for documentation of the administered medications Patient Profile: Refer to note in patient chart for documentation of history and physical. Last Colonoscopy: more than 3 years ago. Complications: No immediate complications. Procedure: Pre-Anesthesia Assessment: - Prior to the procedure, a History and Physical was performed, and patient medications and allergies were reviewed. The patient is competent. The risks and benefits of the procedure and the sedation options and risks were discussed with the patient. All questions were answered and informed consent was obtained. Patient identification and proposed procedure were verified by the physician in the pre-procedure area. Mental Status Examination: alert and oriented. Airway Examination: normal oropharyngeal airway and neck mobility. Respiratory Examination: clear to auscultation. CV Examination: normal. Prophylactic Antibiotics: The patient does not require prophylactic antibiotics. Prior Anticoagulants: The patient has taken no previous anticoagulant or antiplatelet agents. ASA Grade Assessment: II - A patient with mild systemic disease. After reviewing the risks and benefits, the patient was deemed in satisfactory condition to undergo the procedure. The anesthesia plan was to use monitored anesthesia care (MAC). Immediately prior to administration of medications, the patient was re-assessed for adequacy to receive sedatives. The heart rate, respiratory rate, oxygen saturations, blood pressure, adequacy of pulmonary ventilation, and response to care were monitored throughout the procedure. The physical status of the patient was re-assessed after the procedure. After I obtained informed consent, the scope was passed under direct vision. Throughout the procedure, the patient's blood pressure, pulse, and oxygen saturations were monitored continuously. The Colonoscope was introduced through the anus and advanced to the cecum, identified by the ileocecal anastomosis and transillumination. The colonoscopy was performed without difficulty. The patient tolerated the procedure well. The quality of the bowel preparation was adequate. Scope In: 12:18:45 PM Scope Withdrawal Time 0 hours 22 minutes 36 seconds Scope Out: 12:50:36 PM Total Procedure Duration Time 0 hours 31 minutes 51 seconds Findings: The perianal and digital rectal examinations were normal. Non-bleeding internal hemorrhoids were found. Biopsies for histology were taken with a cold forceps from the ileum and entire colon for evaluation of microscopic colitis, the patient was noted to have friable mucosa, biopsy sites with continued bleeding in the right colon had hemostatic clips placed. Impression: - Non-bleeding internal hemorrhoids. - Biopsies were taken with a cold forceps from the entire ileum and colon for evaluation of microscopic colitis. Recommendation: - Discharge patient to home (ambulatory). - Resume previous diet. - Continue present medications. - Await pathology results. - Return to nurse practitioner in 1 week. - Repeat colonoscopy is recommended. The colonoscopy date will be determined after pathology results from today's exam become available for review. Procedure Code(s): --- Professional --- 60452, Colonoscopy, flexible; with biopsy, single or multiple Diagnosis Code(s): --- Professional --- K64.8, Other hemorrhoids Z86.010, Personal history of colonic polyps CPT copyright 2017 [employer]. All rights reserved. The codes documented in this report are preliminary and upon sales officer review may be revised to meet current compliance requirements. MD Suki Quevedo MD 04/07/2018 12:59:24 PM This report has been signed electronically. Number of Addenda: 0 Note Initiated On: 04/07/2018 12:17 PM 04/07/18 1259 Date Suki Marcum MD Cosigner Signature: Date (if indicated) CC: Suki Marcum MD; Lew Verduzco MD Date Dictated: 04/07/18 1217 Date Transcribed: Interior Decorator: LW Signed OPERATIVE REPORT - Observed: 04/07/2018 Status: F Source: [facility] 12:56 PM [facility] REPOSITORY [facility] Medical Records Department [address] [place] [address] Operative Report - Endoscopy MR#: [id number] Acct: [id number] Name: CHEY JEFFERS Rep #: [id number] : 1960 57 From: Suki Marcum MD PCP: Lew Verduzco MD Status: REG [facility] Patient Name: Chey Jeffers Procedure Date: 04/07/2018 11:49 AM Date of : 1960 Age: 57 Procedure: Upper GI endoscopy Indications: Esophageal dysphagia, Nausea Providers: Suki Marcum MD Medicines: See the Anesthesia note for documentation of the administered medications Patient Profile: Refer to note in patient chart for documentation of history and physical. Complications: No immediate complications. Procedure: Pre-Anesthesia Assessment: - Prior to the procedure, a History and Physical was performed, and patient medications and allergies were reviewed. The patient is competent. The risks and benefits of the procedure and the sedation options and risks were discussed with the patient. All questions were answered and informed consent was obtained. Patient identification and proposed procedure were verified by the physician in the pre-procedure area. Mental Status Examination: alert and oriented. Airway Examination: normal oropharyngeal airway and neck mobility. Respiratory Examination: clear to auscultation. CV Examination: normal. Prophylactic Antibiotics: The patient does not require prophylactic antibiotics. Prior Anticoagulants: The patient has taken no previous anticoagulant or antiplatelet agents. ASA Grade Assessment: II - A patient with mild systemic disease. After reviewing the risks and benefits, the patient was deemed in satisfactory condition to undergo the procedure. The anesthesia plan was to use monitored anesthesia care (MAC). Immediately prior to administration of medications, the patient was re-assessed for adequacy to receive sedatives. The heart rate, respiratory rate, oxygen saturations, blood pressure, adequacy of pulmonary ventilation, and response to care were monitored throughout the procedure. The physical status of the patient was re-assessed after the procedure. After obtaining informed consent, the endoscope was passed under direct vision. Throughout the procedure, the patient's blood pressure, pulse, and oxygen saturations were monitored continuously. The gastroscope was introduced through the mouth, and advanced to the second part of duodenum. The upper GI endoscopy was accomplished without difficulty. The patient tolerated the procedure well. Scope In: 12:09:49 PM Scope Out: 12:15:45 PM Total Procedure Duration Time 0 hours 5 minutes 56 seconds Findings: The Z-line was slightly irregular. Biopsies were taken with a cold forceps for histology. The entire examined stomach was normal. Biopsies were taken with a cold forceps for histology. The first portion of the duodenum and second portion of the duodenum were normal. Biopsies for histology were taken with a cold forceps for evaluation of celiac disease. Impression: - Z-line irregular. Biopsied. - Normal stomach. Biopsied. - Normal first portion of the duodenum and second portion of the duodenum. Biopsied. Recommendation: - Await pathology results. - Return to nurse practitioner in 1 week. - Continue present medications. Procedure Code(s): --- Professional --- 27426, Esophagogastroduodenoscopy, flexible, transoral; with biopsy, single or multiple Diagnosis Code(s): --- Professional --- K22.8, Other specified diseases of esophagus R13.14, Dysphagia, pharyngoesophageal phase R11.0, Nausea CPT copyright 2017 [employer]. All rights reserved. The codes documented in this report are preliminary and upon sales officer review may be revised to meet current compliance requirements. MD Suki Quevedo MD 04/07/2018 12:55:52 PM This report has been signed electronically. Number of Addenda: 0 Note Initiated On: 04/07/2018 11:49 AM 04/07/18 1255 Date Suki Marcum MD Cosigner Signature: Date (if indicated) CC: Suki Marcum MD; Lew Verduzco MD Date Dictated: 04/07/18 1149 Date Transcribed: Interior Decorator: PHUONG Signed HISTORY AND PHYSICAL Observed: 04/07/2018 Status: F Source: [facility] 11:22 AM [facility] REPOSITORY [facility] Medical Records Department [address] [place] [address] History and Physical 04/07/18 1120 MR#: [id number] Acct: [id number] Name: CHEY JEFFERS Rep #: [id number] : 1960 57 From: Suki Marcum MD PCP: Lew Verduzco MD Status: REG [facility] Y Location: [place] [address] History and Physical Date of Admission: 04/07/18 Chey Jeffers a 57 year old female who is referred by Dr. Verduzco for surveillance colonoscopy. The patient reports a family history of colon cancer in that a maternal aunt had the disease. The patient was noted to have a sessile serrated polyp on pathology following a colonoscopy by Dr. Wolfe in June 2013. It was recommended to patient to return in 6-9 months to have a follow-up colonoscopy. Dr. Bains preformed colonoscopy on 03/10/2014 demonstrating one 30 mm polyp in the mid ascending colon. Pathology returned as a hyperplastic polyp. Surgery was recommended due to the size of the area. PROCEDURE: Laparoscopic colectomy ileocecal by Dr. Luis Conroy on 07/16/14. The patient was seen by Dr. Bains for colonoscopy 03/10/15. The procedure report has been reviewed and findings as follows: Impression: - One 5 mm polyp in the rectum. Resected and retrieved. FINAL DIAGNOSIS Rectum, biopsy - Fragments of hyperplastic polyp. The patient was seen by Dr. Wolfe for upper endoscopy 07/11/09. The procedure report has been reviewed and findings as follows: Findings: Esophagus: The Z-line is slightly erratic but without erosions or ulcerations. No evidence of Shell's mucosa. No bxs were taken. Stomach: Erythematous mucosa was found in the antrum. No evidence of ulcers in the stomach. A biopsy was taken. The specimen was collected for a urease test. Otherwise, the stomach appeared to be normal. Duodenum: The duodenum appeared to be normal. The patient remains on Prevacid and Carafate. Presenting complaint: The patient denies change in bowel habits or rectal bleeding. Having a bowel movement anywhere from none in a day, up to several times a day. She reminds me that she has irritable bowel. She might have several bowel movements if she's upset, or depending on what she has eaten. She reports stabbing pain in her lower abdomen when her irritable bowel occurs. No blood or black stool. She takes dicyclomine as needed. The patient has been on Prevacid for years. She also takes ranitidine and sucralfate. She reports nausea at times. Also, pill dysphagia stating that the sensation can last an hour or more. PAST MEDICAL HISTORY Abnormal ultrasound of breast 06/17/2013 Acute gastritis Ankylosing spondylitis (HCC) Anxiety and depression 06/12/2005 Asthma with chronic obstructive pulmonary disease (COPD) (HCC) 05/24/2005 Bilateral renal cysts 03/11/2015 Calculus of kidney Dysthymic disorder Depression (non-psychotic) Enterocolitis due to Clostridium difficile 01/12/2015 Esophageal reflux HNP (herniated nucleus pulposus), lumbar 08/22/2011 Intrinsic asthma, unspecified 08/05/2008 Irritable bowel syndrome Irritable bowel FDC 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 01/16/2017 Menopause syndrome 01/19/2005 Myalgia and myositis, unspecified Pure hypercholesterolemia Serrated adenoma of colon 07/29/2014 Symptomatic menopausal or female climacteric states Unspecified asthma(493.90) Unspecified sinusitis (chronic) 06/21/2008 PAST SURGICAL HISTORY COLONOSCOP W/ OR W/O BRSH SPEC 04/24/2001 Colonoscopy COLONOSCOP W/ OR W/O BRSH SPEC 06/16/2013 Colonoscopy COLONOSCOP W/ OR W/O BRSH SPEC 03/10/2014 Colonoscopy COLONOSCOP W/ OR W/O BRSH SPEC 03/10/15 Colonoscopy EGD W/O OR W/BRUSH/WASH 04/24/2001 EGD EGD W/O OR W/BRUSH/WASH 07/11/2009 EGD EXCISION NOSE POLYP(S),SIMPLE 2007 Nasal polypectomy, Dr. Mcclelland LAP COLECTMY W/ILEUM/ILEOCOL 07-16-14 PAST SURGICAL HISTORY OF 2013 left breast biopsy- benign REMOVAL GALLBLADDER 1998 Cholecystectomy REMV CATARACT EXTRACAP,INSERT LENS 10/10-2013 Cataract Extraction with PC IOL REPAIR OF NASAL SEPTUM 2006 Septoplasty SINUS SURGERY PROCEDURE Bilateral 04/02/2017 sinonasal polypectomy, revision maxillary antrostomy, total ethmoidectomy, sphenoidotomy TOTAL ABDOM HYSTERECTOMY 1992 Hysterectomy, OPAL BSO FAMILY HISTORY Cancer Maternal Grandmother lung Colon Cancer Maternal Aunt COPD Maternal Uncle Coronary Artery Disease Paternal Aunt Breast Cancer Other mothers side (cousin) Cancer Maternal Uncle lung Emphysema Father Heart Father Emphysema Mother diabetic Heart Mother Blockage and she needs a bypass, but her COPD prevents CURRENT MEDICATIONS fentaNYL (DURAGESIC) 25 mcg/hr Apply 1 Patch as directed every 72 hours for 30 days.Earliest Fill Date: 01/28/18 Disp: 10 Patch Rfl: 0 [START ON 02/28/2018] fentaNYL (DURAGESIC) 25 mcg/hr Apply 1 Patch as directed every 72 hours for 30 days.Earliest Fill Date: 02/28/18 Disp: 10 Patch Rfl: 0 [START ON 03/31/2018] fentaNYL (DURAGESIC) 25 mcg/hr Apply 1 Patch as directed every 72 hours for 30 days.Earliest Fill Date: 03/31/18 Disp: 10 Patch Rfl: 0 ipratropium-albuterol (DUONEB) 0.5 mg-3 mg(2.5 mg base)/3 mL nebu Inhale 3 mL as instructed every 6 hours as needed. Disp: 30 Vial Rfl: 5 montelukast (SINGULAIR) 10 mg tablet take 1 tablet by mouth at bedtime Disp: 90 tablet Rfl: 3 Estradiol (ESTRACE) 0.5 mg tablet take 1 tablet by mouth once daily Disp: 90 tablet Rfl: 1 ranitidine (ZANTAC) 150 mg tablet take 1 tablet by mouth twice a day Disp: 180 tablet Rfl: 3 clonazePAM (KLONOPIN) 0.5 mg tablet Take 1 tablet by mouth twice daily for 180 days. Disp: 60 tablet Rfl: 5 imipramine HCl (TOFRANIL) 25 mg tablet Take 2 tablets by mouth daily at bedtime. Disp: 180 tablet Rfl: 1 albuterol HFA (VENTOLIN HFA) 90 mcg/actuation inhaler Inhale 2 Puffs as instructed every 4 hours as needed for Wheezing/Shortness of Breath. Disp: 1 Inhaler Rfl: 2 sucralfate (CARAFATE) 1 gram tablet Take 1 tablet by mouth before meals and at bedtime. Disp: 360 tablet Rfl: 1 simvastatin (ZOCOR) 40 mg tablet Take 1 tablet by mouth daily at bedtime. Disp: 90 tablet Rfl: 3 dicyclomine (BENTYL) 10 mg capsule Take 1 capsule by mouth four times daily. (Patient taking differently: Take 10 mg by mouth three times daily. ) Disp: 360 capsule Rfl: 4 lansoprazole (PREVACID) 30 mg capsule take 1 capsule by mouth once daily Disp: 30 capsule Rfl: 11 fluticasone (FLONASE) 50 mcg/actuation nasal spray Use in the nose. SHAKE WELL before using. Blow nose prior to use. Prime pump before using. Disp: Rfl: LOPERAMIDE HCL (IMODIUM ORAL) Take by mouth as needed. Disp: Rfl: Cholecalciferol, Vitamin D3, (VITAMIN D) 1,000 unit cap Take 1,000 Units by mouth once daily. Disp: Rfl: fexofenadine (NAN) 180 mg ORAL tablet Take one(1) tablet daily. Disp: 90 Tab Rfl: 3 vit e acetate/gly/dimeth/water(CETAPHIL MOISTURIZING LOTION) apply twice daily Disp: 1 Rfl: 0 SOCIAL HISTORY: Patient is single. She has never smoked. Chey reports her alcohol use as never. REVIEW OF SYSTEMS: GENERAL: No weight loss, malaise or fevers RESPIRATORY: Severe COPD CARDIOVASCULAR: Negative for chest pain, leg swelling, hypertension, CHF or palpitations GI: The patient states that her appetite has been adequate. She so,etimes get hungry. There has been some nausea, no vomiting. She admits to dysphagia and denies odynophagia. There has not been indigestion or heartburn. There has not been regurgitation. Bowel habits have been irregular. There has been diarrhea. There has not been constipation. The patient denies rectal bleeding. There has not been melena. Intermittent abdominal pain that is located in the lower abodmen, related to the IBS episodes.. PSYCH: Positive for anxiety and depression. MUSCULOSKELETAL: Fibromyalgia and chronic back pain from ankylosing spondylitis - on Fentanyl patch HEMATOLOGY/LYMPHOLOGY Negative for prolonged bleeding, bruising easily or swollen nodes ENDOCRINE: Negative for thyroid or diabetes. NEURO: History of migraine headaches All other reviewed and negative other than HPI. PHYSICAL EXAMINATION: Blood pressure 107/64, pulse 109, height 152.4 cm (5'), weight 42.5 kg (93 lb 9.6 oz). General Appearance: Alert, in no acute distress. Skin: Skin color, texture, turgor normal, no suspicious rashes or lesions. Head: Normocephalic, no masses, lesions or abnormalities. Eyes: Anicteric sclera. P Oropharynx: Dentures. Lips, mucosa, and tongue normal, oropharynx normal. Neck: Supple, no adenopathy; thyroid symmetric, normal size. Lungs: Lungs clear to auscultation. No wheezing, rhonchi, rales. (she tells me she did an aerosol treatment prior to appointment) Heart: RRR without murmur. Abdomen: Abdomen soft, non-tender. Bowel sounds normal. No masses, organomegaly. Extremities: No deformities, edema, skin discoloration, clubbing or cyanosis. Peripheral Pulses: Normal. Neurologic: Gait normal. Sensation grossly intact. Impression: GERD 2)halfway use of PPI 3)dysphagia 4)history of polyps 5)IBS Plan: The patient will be scheduled for an upper endoscopy as well as a colonoscopy. She will require MAC. Preparation for the procedures, using magnesium citrate and dulcolax as the laxative, have been explained in detail. The risks, benefits, anticipated outcomes and possible complications were mentioned. I explained the procedure in understandable terms and the patient was given printed material concerning the planned procedure. The patient had the opportunity to ask questions concerning the planned procedure. The patient freely consents to the planned procedure. The patient is encouraged to call with any questions or concerns, or should there be any change in health status between now and the scheduled procedure. Khari Alvarado RN [facility] 04/07/18 1122 <Electronically signed by Suki Marcum MD> Date Suki Marcum MD Cosigner Signature: Date (if applicable) CC: Suki Marcum MD; Lew Verduzco MD Signed IMMUNOHISTOCHEMISTRY Observed: 04/07/2018 Status: F Source: [facility] 12:00 AM [facility] REPOSITORY Patient: CHEY JEFFERS : 1960 (57/F) Acct Num: [id number] Phys: Jossue BLOOD,Suki Unit Num: [id number] Loc: EN Specimen: [id number] Received: 04/07/18 [facility] Spec Type: IMMUNO TISSUES 1 TISSUES: B. Stomach, NOS SPECIMEN INFORMATION: Tissue Source: B - Biopsy gastric antrum Clinical Info: Dysphagia, nausea, history of colon polyps Specimen Number: [id number] CPT code: 16560 METHODOLOGY: Deparaffinized sections of prefer/formalin-fixed tissue or PAP/DQ stained slides are incubated with monoclonal/polyclonal antibodies/oligonucleotide probes. Localization is made via biotin free immunoperoxidase method. Appropriate controls are performed and reacted as expected. Results on target cell population are indicated in the following table: RESULTS: ANTIBODY / CLONE RESULT Block B H Pylori (polyclonal) negative These tests were developed and their performance characteristics determined by [facility]. They may not have been cleared or approved by the U.S. Food and Drug Administration. The FDA has determined that such clearance or approval is not necessary. INTERPRETATION: B. Gastric antrum, biopsy: Negative for Helicobacter pylori organisms. SJ:melissa 04/08/18 PHYSICIAN AND INSTITUTION [facility] [address], [place] [address] Signed Richard De Santiago 04/08/18 <signature on file> Performed By: #### PIMM #### [facility] [address] [place], [place], [id number] EGD ([facility] SITE) Observed: 04/07/2018 Status: F Source: [facility] 12:00 AM [facility] REPOSITORY Patient: CHEY JEFFERS : 1960 (57/F) Acct Num: [id number] Phys: Suki Marcum MD Unit Num: [id number] Loc: EN Specimen: [id number] Received: 04/07/18 - 1400 Spec Type: EGD BIOPSY TISSUES 1 TISSUES: A. Duodenum, NOS B. Gastric mucous membrane C. Gastric mucous membrane D. COLON BIOPSY E. Ileum, NOS COMMENT B. The results of immunohistochemistry for Helicobacter pylori will be reported separately ([id number]). C. Alcian blue/PAS stain with matched control is used in the evaluation of the specimen. Focal increased number of eosinophils are noted (up to 15 per high power field). GROSS DESCRIPTION A - Received in fixative is one container labeled with the patient's name and designated second portion of duodenum. The specimen consists of one irregular fragment of light cuba soft tissue that measures 0.3 x 0.2 x 0.1 cm. The specimen is totally submitted in one cassette. B - Received in fixative is one container labeled with the patient's name and designated biopsy gastric antrum. The specimen consists of one irregular fragment of light cuba soft tissue that measures 0.2 x 0.2 x 0.1 cm. The specimen is totally submitted in one cassette. C - Received in fixative is one container labeled with the patient's name and designated biopsy GE junction. The specimen consists of two irregular fragments of light cuba soft tissue that in aggregate measure 0.6 x 0.3 x 0.1 cm. The specimen is totally submitted in one cassette. D - Received in fixative is one container labeled with the patient's name and designated random colon mucosal biopsy. The specimen consists of multiple irregular fragments of light cuba soft tissue that in aggregate measure 2 x 0.5 x 0.1 cm. The specimen is totally submitted in one cassette. E - Received in fixative is one container labeled with the patient's name and designated biopsy terminal ileum. The specimen consists of one irregular fragment of light cuba soft tissue that measures 0.3 x 0.2 x 0.1 cm. The specimen is totally submitted in one cassette. / MACKENZIE:melissa 04/07/18 TC:4 CPT: 06552 x5, 76891 HEADER OPERATION: Colonoscopy, EGD ([facility]) PRE-OP DIAGNOSIS: Dysphagia, nausea, history of colon polyps TISSUE SUBMITTED: A - Biopsy second portion of duodenum, B - Biopsy gastric antrum, H. pylori and path, C - GE junction, D - Random colonic mucosal biopsies , E - Biopsy terminal ileum MICROSCOPIC DESCRIPTION Slides are reviewed. B. The specimen shows fragments of gastric mucosa with chronic inflammatory cell infiltrates in the lamina propria consisting of lymphocytes and plasma cells, consistent with mild chronic gastritis. Focal mild mucosal congestion is also noted. MICROSCOPIC DIAGNOSIS A. Second portion of duodenum, biopsy: A fragment of duodenal mucosa with mild mucosal congestion and hemorrhage and Nehemiah's gland hyperplasia. B. Gastric antrum, biopsy: Mild gastritis. Mild mucosal congestion. See microscopic description and comment. C. GE junction, biopsy: Fragments of gastroesophageal mucosa with changes consistent with gastroesophageal reflux disease. Intestinal metaplasia (goblet cell metaplasia) is not identified. See comment. D. Colon, random mucosal biopsy: Fragments of colonic mucosa, no pathologic diagnosis. E. Terminal ileum, biopsy: A fragment of small intestinal mucosa, no pathologic diagnosis. MACKENZIE:melissa 04/08/18 Signed Richard eD Santiago 04/08/18 <signature on file> Performed By: #### PEGD #### [facility] [address] [place], [place] [address]ranjith [place], [address] PROGRESS Observed: 04/02/2018 Status: COMPLETED Source: [place] 11:08 AM [facility] REPOSITORY HNO ID: [id number] Author: Darren Aleman Service: (none) Author Type: Physician Type: Progress Notes Filed: 04/03/2018 7:53 AM Note Text: Hematology and Medical Oncology PATIENT NAME: Chey Jeffers. CLINIC NO: [id number]. ATTENDING PHYSICIAN: Darren Aleman MD. DATE OF SERVICE:04/02/2018. DIAGNOSIS: leukocytosis, unexplained weight loss Consultation requested by Dr. Naqvi for an opinion regarding leukocytosis. My final recommendations will be communicated back to the requesting physician by way of shared Medical record or letter to requesting physician via US mail PERFORMANCE STATUS:80% HPI: 57-year-old lady with history of ankylosing spondylitis, irritable bowel symptom, gastrointestinal reflux disease and history of abnormal metastases polyps. She presented with exacerbation of her asthma/bronchitis 2 weeks ago and was placed on Solu-Medrol Dosepak. Patient also has history of allergy and chronic sinusitis. She has unexplained weight loss of over 10 pounds in the last 6 months. She has no abdominal pain or bloating or jaundice. No change in bowel habit. Chest x-ray 2 weeks ago show no active disease. She is scheduled to see Dr. Marcum next week for endoscopy and colonoscopy. For the last 2 weeks she complain of left upper and lower quadrant pain. Previously his surgery included partial colectomy for adenomatous polyps, and total abdominal hysterectomy for uterine fibroid. Patient has completed Solu-Medrol Dosepak last weekend and she complained of having sinus congestion, drainage and cough. She denied fever, chills or sweats. No urinary symptoms, dysuria hematuria or frequency. MEDICATIONS: Current Outpatient Prescriptions: calcium carb/vit D2/minerals (CALTRATE PLUS ORAL) Take 1 capsule by mouth once daily. budesonide-formoterol (SYMBICORT) 160-4.5 mcg/actuation inhaler Inhale 2 Puffs as instructed twice daily. lansoprazole (PREVACID) 30 mg capsule take 1 capsule by mouth once daily ipratropium-albuterol (DUONEB) 0.5 mg-3 mg(2.5 mg base)/3 mL nebu Inhale 3 mL as instructed every 4 hours as needed. sucralfate (CARAFATE) 1 gram tablet Take 1 tablet by mouth before meals and at bedtime. montelukast (SINGULAIR) 10 mg tablet take 1 tablet by mouth at bedtime Estradiol (ESTRACE) 0.5 mg tablet take 1 tablet by mouth once daily ranitidine (ZANTAC) 150 mg tablet take 1 tablet by mouth twice a day clonazePAM (KLONOPIN) 0.5 mg tablet Take 1 tablet by mouth twice daily for 180 days. imipramine HCl (TOFRANIL) 25 mg tablet Take 2 tablets by mouth daily at bedtime. albuterol HFA (VENTOLIN HFA) 90 mcg/actuation inhaler Inhale 2 Puffs as instructed every 4 hours as needed for Wheezing/Shortness of Breath. simvastatin (ZOCOR) 40 mg tablet Take 1 tablet by mouth daily at bedtime. dicyclomine (BENTYL) 10 mg capsule Take 1 capsule by mouth four times daily. (Patient taking differently: Take 10 mg by mouth three times daily. ) fluticasone (FLONASE) 50 mcg/actuation nasal spray Use in the nose. SHAKE WELL before using. Blow nose prior to use. Prime pump before using. LOPERAMIDE HCL (IMODIUM ORAL) Take by mouth as needed. fexofenadine (NAN) 180 mg ORAL tablet Take one(1) tablet daily. vit e acetate/gly/dimeth/water(CETAPHIL MOISTURIZING LOTION) apply twice daily iv contrast (will be provided with radiology test) CT ABD/PEL -Inject, intravenously, once for 1 dose.No IV access, insert saline lock prior to the beginning of sedation, infusion, injection of imaging exam. Discontinue saline lock post exam. If Pt. has a central line or IVAD, may access for administration according to line specific nursing protocol. Once exam is complete flush line and de-access according to line specific nursing protocol in the CT contrast administration guidelines link. enteric contrast (will be provided with radiology test) For CT ABD/PEL W IVCON Routine order Administer, As Directed One Time Only, via Oral, Rectal, both Oral and Rectal, Enteric Tube, Stoma or Indwelling Catheter, Enteric Contrast as designated per enteric contrast guidelines fluticasone (FLONASE) 50 mcg/actuation nasal spray Use 1 Beaman in each nostril twice daily. VIA SPACER THEN RINSE AND GARGLE MOUTH WITH WATER. fentaNYL (DURAGESIC) 25 mcg/hr Apply 1 Patch as directed every 72 hours for 30 days.Earliest Fill Date: 03/31/18 Cholecalciferol, Vitamin D3, (VITAMIN D) 1,000 unit cap Take 1,000 Units by mouth once daily. No current facility-administered medications for this visit. . ALLERGIES: ALLERGIES Allergen Reactions - Codeine Hives - Vicodin [Hydrocodon* Hives - Demerol [Meperidine* Rash - Bactrim [Sulfametho* uncertain - Celexa [Citalopram * GI Upset - Doxy [Doxycycline] rash and asthma - Durezol [Diflupredn* Rash - Environmental Aller* Dogs, molds - Ibuprofen Shortness of Breath - Lexapro [Escitalopr* GI Upset - Lyrica [Pregabalin] Mental Status Change dizzy - Maprotiline Itching - Mucomyst [Acetylcys* Cough increase wheezing - Oxycodone Shortness of Breath - Penicillins rash - Prednisone Itching - Toradol [Ketorolac * Swelling - Tylenol [Acetaminop* Intolerance asthma - Ultram [Tramadol Hc* Other: See Comments chest pains - Vancomycin Other: See Comments Wheezing after taking, legs swollen and tongue swelling and scratchy neck - Venlafaxine GI Upset - Zithromax [Azithrom* Itching - Mirtazapine Other: See Comments Hand shakes. . 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 Mazariegos [facility]. - Pure hypercholesterolemia - Serrated adenoma of colon 07/29/2014 - Symptomatic menopausal or female climacteric states - Unspecified asthma(493.90) - Unspecified sinusitis (chronic) 06/21/2008 . PAST SURGICAL HISTORY: PAST SURGICAL HISTORY Procedure Laterality Date - COLONOSCOP W/ OR W/O [facility] SPEC 04/24/2001 Colonoscopy - COLONOSCOP W/ OR W/O [facility] SPEC 06/16/2013 Colonoscopy - COLONOSCOP W/ OR W/O [facility] SPEC 03/10/2014 Colonoscopy - COLONOSCOP W/ OR W/O [facility] SPEC 03/10/15 Colonoscopy - EGD W/O OR W/BRUSH/WASH 04/24/2001 EGD - EGD W/O OR W/BRUSH/WASH 07/11/2009 EGD - EXCISION NOSE POLYP(S),SIMPLE 2007 Nasal polypectomy, Dr. Mcclelland - LAP COLECTMY W/ILEUM/ILEOCOL 07-16-14 - PAST SURGICAL HISTORY OF 2013 left breast biopsy- benign - REMOVAL GALLBLADDER 1998 Cholecystectomy - REMV CATARACT EXTRACAP,INSERT LENS 10/10-2013 Cataract Extraction with PC IOL - REPAIR OF NASAL SEPTUM 2006 Septoplasty - SINUS SURGERY PROCEDURE Bilateral 04/02/2017 [facility] Dr. Mazariegos. Sinonasal polypectomy, revision maxillary antrostomy, total ethmoidectomy, sphenoidotomy - TOTAL ABDOM HYSTERECTOMY 1992 Hysterectomy, OPAL BSO . FAMILY HISTORY: FAMILY HISTORY Problem Relation Age of Onset - Emphysema Mother diabetic - Heart Mother Blockage and she needs a bypass, but her COPD prevents - Emphysema Father - Heart Father - Cancer Maternal Grandmother lung - Colon Cancer Maternal Aunt - COPD Maternal Uncle - Coronary Artery Disease Paternal Aunt - Breast Cancer Other mothers side (cousin) - Cancer Maternal Uncle lung . SOCIAL HISTORY:Social History Marital status: Single Spouse name: Years of education: Number of children: 0 Occupational History Occupation Employer Comment [employer] Social History Main Topics Smoking status: Never Smoker Smokeless tobacco: Never Used Comment: ETS from parents in childhood home. Currently also has some household ETS. 03/17/2018. Alcohol use: No Drug use: No Sexual activity: No Comment: single .REVIEW OF SYSTEMS: CONSTITUTIONAL: No fevers, chills, nightsweats, + unintended weight loss HEENT: Denies frequent or severe heaches, + nasal congestion/sinus symptoms, problematic allergy problems. EYES: No diplopia or blurry vision. CARDIOVASCULAR: No chest pain, dyspnea, palpitations, orthopnea, PND, ankle edema. PULM: No dyspnea, + chronic cough. GI: No dysphagia/odynophagia, problematic reflux, constipation, diarrhea, changes in stool habits, hematochezia, melena. : No new urinary complaints, including dysuria, gross hematuria or pyuria. NEURO: No new balance problems, peripheral weakness/paresthesias or numbness of concern. MUSC-SKEL: No new joint pain, swelling, or erythema. + back pain from ankylosing spondylitis and fibromyalgia PSY: No concerns regarding depression, anxiety or panic. INTEGUMENTARY: No new skin changes (rash, new or changing mole, new growth) PHYSICAL EXAMINATION: 57-year-old thin but not cachectic female in no acute distress BP 120/58 Pulse 113 Temp 97.8 Ht 5' .75[verified [ (1.54m) Wt 87 lb 8 oz (39.7kg) BMI 16.67 kg/(m2). HEENT: Head is normocephalic, atraumatic. Sclerae white, conjunctivae pink. PEERL. EOMs are intact. Oropharynx is benign. LYMPHATICS: There is no palpable adenopathy in the neck, supraclavicular region, axillae, or groin. LUNGS: Lungs are clear to percussion and auscultation. No wheezing, rales or rhonchi HEART: Heart is normal without murmurs, gallops, or rubs. ABDOMEN: Soft and no abdominal distention, without organomegaly. No masses can be palpated. + left upper quadrant tenderness on palpation EXTREMITIES: Are without edema. NEUROLOGIC: Exam is physiologic LABORATORY DATA: Component Latest Ref Rng AND Units 04/02/2018 WBC, Chaim 3.70 - 11.00 k/uL 10.83 RBC, Streeter 3.90 - 5.20 m/uL 5.05 Hemoglobin, Streeter 11.5 - 15.5 g/dL 14.1 Hematocrit, Streeter 36.0 - 46.0 % 45.5 MCV, Chaim 80.0 - 100.0 fL 90.1 MCH, Streeter 26.0 - 34.0 pg 27.9 MCHC, Streeter 30.5 - 36.0 g/dL 31.0 RDW, Chaim 11.5 - 15.0 % 15.3 (H) Platelet Cnt, Streeter 150 - 400 k/uL 375 MPV, Chaim 9.0 - 12.7 fL 9.1 Absol Gran Count 1.45 - 7.50 k/uL 6.83 Component Latest Ref Rng AND Units 03/25/2018 Protein, Total 6.3 - 8.0 g/dL 6.6 Albumin 3.9 - 4.9 g/dL 4.2 Calcium 8.5 - 10.2 mg/dL 9.5 Bilirubin, Total 0.2 - 1.3 mg/dL 0.2 Alkaline Phosphatase 34 - 123 U/L 72 AST 13 - 35 U/L 17 Glucose 74 - 99 mg/dL 77 BUN 7 - 21 mg/dL 19 Creatinine 0.58 - 0.96 mg/dL 0.89 Sodium 136 - 144 mmol/L 141 Potassium 3.7 - 5.1 mmol/L 4.3 Chloride 97 - 105 mmol/L 100 CO2 22 - 30 mmol/L 27 Anion Gap 9 - 18 mmol/L 14 ALT 7 - 38 U/L 20 eGFR- >60 eGFR-All Other Races . >60 TSH 0.400 - 5.500 uU/mL 0.980 Component Latest Ref Rng AND Units 10/28/2017 03/25/2018 04/02/2018 Hep C Antibody IA Negative Negative HIV 12 Combo (Ag/Ab) Non Reactive Non Reactive WSR 0 - 20 mm/hr 2 CRP <0.9 mg/dL <0.1 IMAGING: CXR: Stable chest. ?No acute cardiopulmonary process. ASSESSMENT: 57-year-old lady with transient leukocytosis secondary to Solu-Medrol taper. She has no active infection at this time. Unexplained weight loss and history of colonic polyps. PLAN: - CT abdomen and pelvis because of unexplained weight loss and left upper quadrant pain - Follow-up with Dr. Marcum next week for EGD and colonoscopy evaluation - continue treatment for asthma/bronchitis and follow-up with Dr. Goddard - Start Flonase twice daily for allergy / sinusitis - Dietary and nutrition therapy; start Ensure supplement twice daily and monitor her weight. I spent 45 minutes in the visit, with more than 50% of the total [id number] time of the visit in counseling / coordination of care. No follow-up is needed since Mrs. Jeffers has no underlying hematological problems. The patient and family were allowed enough time to ask questions. All questions were answered to their satisfaction. Patient and family verbalized understanding of treatment plan and agreed to follow up with PCP. Darren Aleman MD. ELECTRONICALLY SIGNED Cc: Dr. Suki Goddard CNOVSP Observed: 04/02/2018 Status: COMPLETED Source: [place] 10:10 AM [facility] REPOSITORY Visit (SP) Office (HEMAWS) CHEY JEFFERS ([id number]) 1960 F Date Time Provider Department 04/02/18 10:10 AM DARREN ALEMAN During your visit today, we recorded the following information about you: Temperature Pulse Blood pressure Weight 97.8 degrees 113/minute 120/58 39.7 kg Height 1.543 m Kirstin Mazariegos LPN, LPN 04/02/2018 10:44 AM Signed New patient, discuss recent lab results DX: Leukocytosis MICHELLE Diaz MD 04/02/2018 11:00 AM Signed Take 2 bottles of ENSURE per day between meals Darren Aleman MD 04/03/2018 7:53 AM Signed Hematology and Medical Oncology PATIENT NAME: Chey Jeffers. CLINIC NO: [id number]. ATTENDING PHYSICIAN: Darren Aleman MD. DATE OF SERVICE:04/02/2018. DIAGNOSIS: leukocytosis, unexplained weight loss Consultation requested by Dr. Naqvi for an opinion regarding leukocytosis. My final recommendations will be communicated back to the requesting physician by way of shared Medical record or letter to requesting physician via US mail PERFORMANCE STATUS:80% HPI: 57-year-old lady with history of ankylosing spondylitis, irritable bowel symptom, gastrointestinal reflux disease and history of abnormal metastases polyps. She presented with exacerbation of her asthma/bronchitis 2 weeks ago and was placed on Solu-Medrol Dosepak. Patient also has history of allergy and chronic sinusitis. She has unexplained weight loss of over 10 pounds in the last 6 months. She has no abdominal pain or bloating or jaundice. No change in bowel habit. Chest x-ray 2 weeks ago show no active disease. She is scheduled to see Dr. Marcum next week for endoscopy and colonoscopy. For the last 2 weeks she complain of left upper and lower quadrant pain. Previously his surgery included partial colectomy for adenomatous polyps, and total abdominal hysterectomy for uterine fibroid. Patient has completed Solu-Medrol Dosepak last weekend and she complained of having sinus congestion, drainage and cough. She denied fever, chills or sweats. No urinary symptoms, dysuria hematuria or frequency. MEDICATIONS: Current Outpatient Prescriptions: calcium carb/vit D2/minerals (CALTRATE PLUS ORAL) Take 1 capsule by mouth once daily. budesonide-formoterol (SYMBICORT) 160-4.5 mcg/actuation inhaler Inhale 2 Puffs as instructed twice daily. lansoprazole (PREVACID) 30 mg capsule take 1 capsule by mouth once daily ipratropium-albuterol (DUONEB) 0.5 mg-3 mg(2.5 mg base)/3 mL nebu Inhale 3 mL as instructed every 4 hours as needed. sucralfate (CARAFATE) 1 gram tablet Take 1 tablet by mouth before meals and at bedtime. montelukast (SINGULAIR) 10 mg tablet take 1 tablet by mouth at bedtime Estradiol (ESTRACE) 0.5 mg tablet take 1 tablet by mouth once daily ranitidine (ZANTAC) 150 mg tablet take 1 tablet by mouth twice a day clonazePAM (KLONOPIN) 0.5 mg tablet Take 1 tablet by mouth twice daily for 180 days. imipramine HCl (TOFRANIL) 25 mg tablet Take 2 tablets by mouth daily at bedtime. albuterol HFA (VENTOLIN HFA) 90 mcg/actuation inhaler Inhale 2 Puffs as instructed every 4 hours as needed for Wheezing/Shortness of Breath. simvastatin (ZOCOR) 40 mg tablet Take 1 tablet by mouth daily at bedtime. dicyclomine (BENTYL) 10 mg capsule Take 1 capsule by mouth four times daily. (Patient taking differently: Take 10 mg by mouth three times daily. ) fluticasone (FLONASE) 50 mcg/actuation nasal spray Use in the nose. SHAKE WELL before using. Blow nose prior to use. Prime pump before using. LOPERAMIDE HCL (IMODIUM ORAL) Take by mouth as needed. fexofenadine (NAN) 180 mg ORAL tablet Take one(1) tablet daily. vit e acetate/gly/dimeth/water(CETAPHIL MOISTURIZING LOTION) apply twice daily iv contrast (will be provided with radiology test) CT ABD/PEL -Inject, intravenously, once for 1 dose.No IV access, insert saline lock prior to the beginning of sedation, infusion, injection of imaging exam. Discontinue saline lock post exam. If Pt. has a central line or IVAD, may access for administration according to line specific nursing protocol. Once exam is complete flush line and de-access according to line specific nursing protocol in the CT contrast administration guidelines link. enteric contrast (will be provided with radiology test) For CT ABD/PEL W IVCON Routine order Administer, As Directed One Time Only, via Oral, Rectal, both Oral and Rectal, Enteric Tube, Stoma or Indwelling Catheter, Enteric Contrast as designated per enteric contrast guidelines fluticasone (FLONASE) 50 mcg/actuation nasal spray Use 1 Beaman in each nostril twice daily. VIA SPACER THEN RINSE AND GARGLE MOUTH WITH WATER. fentaNYL (DURAGESIC) 25 mcg/hr Apply 1 Patch as directed every 72 hours for 30 days.Earliest Fill Date: 03/31/18 Cholecalciferol, Vitamin D3, (VITAMIN D) 1,000 unit cap Take 1,000 Units by mouth once daily. No current facility-administered medications for this visit. . ALLERGIES: ALLERGIES Allergen Reactions - Codeine Hives - Vicodin [Hydrocodon* Hives - Demerol [Meperidine* Rash - Bactrim [Sulfametho* uncertain - Celexa [Citalopram * GI Upset - Doxy [Doxycycline] rash and asthma - Durezol [Diflupredn* Rash - Environmental Aller* Dogs, molds - Ibuprofen Shortness of Breath - Lexapro [Escitalopr* GI Upset - Lyrica [Pregabalin] Mental Status Change dizzy - Maprotiline Itching - Mucomyst [Acetylcys* Cough increase wheezing - Oxycodone Shortness of Breath - Penicillins rash - Prednisone Itching - Toradol [Ketorolac * Swelling - Tylenol [Acetaminop* Intolerance asthma - Ultram [Tramadol Hc* Other: See Comments chest pains - Vancomycin Other: See Comments Wheezing after taking, legs swollen and tongue swelling and scratchy neck - Venlafaxine GI Upset - Zithromax [Azithrom* Itching - Mirtazapine Other: See Comments Hand shakes. . 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 Mazariegos [facility]. - Pure hypercholesterolemia - Serrated adenoma of colon 07/29/2014 - Symptomatic menopausal or female climacteric states - Unspecified asthma(493.90) - Unspecified sinusitis (chronic) 06/21/2008 . PAST SURGICAL HISTORY: PAST SURGICAL HISTORY Procedure Laterality Date - COLONOSCOP W/ OR W/O [facility] SPEC 04/24/2001 Colonoscopy - COLONOSCOP W/ OR W/O [facility] SPEC 06/16/2013 Colonoscopy - COLONOSCOP W/ OR W/O [facility] SPEC 03/10/2014 Colonoscopy - COLONOSCOP W/ OR W/O [facility] SPEC 03/10/15 Colonoscopy - EGD W/O OR W/BRUSH/WASH 04/24/2001 EGD - EGD W/O OR W/BRUSH/WASH 07/11/2009 EGD - EXCISION NOSE POLYP(S),SIMPLE 2007 Nasal polypectomy, Dr. Mcclelland - LAP COLECTMY W/ILEUM/ILEOCOL 07-16-14 - PAST SURGICAL HISTORY OF 2013 left breast biopsy- benign - REMOVAL GALLBLADDER 1998 Cholecystectomy - REMV CATARACT EXTRACAP,INSERT LENS 10/10-2013 Cataract Extraction with PC IOL - REPAIR OF NASAL SEPTUM 2006 Septoplasty - SINUS SURGERY PROCEDURE Bilateral 04/02/2017 [facility]osp. Dr. Mazariegos. Sinonasal polypectomy, revision maxillary antrostomy, total ethmoidectomy, sphenoidotomy - TOTAL ABDOM HYSTERECTOMY 1992 Hysterectomy, OPAL BSO . FAMILY HISTORY: FAMILY HISTORY Problem Relation Age of Onset - Emphysema Mother diabetic - Heart Mother Blockage and she needs a bypass, but her COPD prevents - Emphysema Father - Heart Father - Cancer Maternal Grandmother lung - Colon Cancer Maternal Aunt - COPD Maternal Uncle - Coronary Artery Disease Paternal Aunt - Breast Cancer Other mothers side (cousin) - Cancer Maternal Uncle lung . SOCIAL HISTORY:Social History Marital status: Single Spouse name: Years of education: Number of children: 0 Occupational History Occupation Employer Comment [employer] Social History Main Topics Smoking status: Never Smoker Smokeless tobacco: Never Used Comment: ETS from parents in childhood home. Currently also has some household ETS. 03/17/2018. Alcohol use: No Drug use: No Sexual activity: No Comment: single .REVIEW OF SYSTEMS: CONSTITUTIONAL: No fevers, chills, nightsweats, + unintended weight loss HEENT: Denies frequent or severe heaches, + nasal congestion/sinus symptoms, problematic allergy problems. EYES: No diplopia or blurry vision. CARDIOVASCULAR: No chest pain, dyspnea, palpitations, orthopnea, PND, ankle edema. PULM: No dyspnea, + chronic cough. GI: No dysphagia/odynophagia, problematic reflux, constipation, diarrhea, changes in stool habits, hematochezia, melena. : No new urinary complaints, including dysuria, gross hematuria or pyuria. NEURO: No new balance problems, peripheral weakness/paresthesias or numbness of concern. MUSC-SKEL: No new joint pain, swelling, or erythema. + back pain from ankylosing spondylitis and fibromyalgia PSY: No concerns regarding depression, anxiety or panic. INTEGUMENTARY: No new skin changes (rash, new or changing mole, new growth) PHYSICAL EXAMINATION: 57-year-old thin but not cachectic female in no acute distress BP 120/58 Pulse 113 Temp 97.8 Ht 5' .75[verified [ (1.54m) Wt 87 lb 8 oz (39.7kg) BMI 16.67 kg/(m2). HEENT: Head is normocephalic, atraumatic. Sclerae white, conjunctivae pink. PEERL. EOMs are intact. Oropharynx is benign. LYMPHATICS: There is no palpable adenopathy in the neck, supraclavicular region, axillae, or groin. LUNGS: Lungs are clear to percussion and auscultation. No wheezing, rales or rhonchi HEART: Heart is normal without murmurs, gallops, or rubs. ABDOMEN: Soft and no abdominal distention, without organomegaly. No masses can be palpated. + left upper quadrant tenderness on palpation EXTREMITIES: Are without edema. NEUROLOGIC: Exam is physiologic LABORATORY DATA: Component Latest Ref Rng AND Units 04/02/2018 WBC, Streeter 3.70 - 11.00 k/uL 10.83 RBC, Streeter 3.90 - 5.20 m/uL 5.05 Hemoglobin, Streeter 11.5 - 15.5 g/dL 14.1 Hematocrit, Streeter 36.0 - 46.0 % 45.5 MCV, Streeter 80.0 - 100.0 fL 90.1 MCH, Streeter 26.0 - 34.0 pg 27.9 MCHC, Chaim 30.5 - 36.0 g/dL 31.0 RDW, Chaim 11.5 - 15.0 % 15.3 (H) Platelet Cnt, Chaim 150 - 400 k/uL 375 MPV, Streeter 9.0 - 12.7 fL 9.1 Absol Gran Count 1.45 - 7.50 k/uL 6.83 Component Latest Ref Rng AND Units 03/25/2018 Protein, Total 6.3 - 8.0 g/dL 6.6 Albumin 3.9 - 4.9 g/dL 4.2 Calcium 8.5 - 10.2 mg/dL 9.5 Bilirubin, Total 0.2 - 1.3 mg/dL 0.2 Alkaline Phosphatase 34 - 123 U/L 72 AST 13 - 35 U/L 17 Glucose 74 - 99 mg/dL 77 BUN 7 - 21 mg/dL 19 Creatinine 0.58 - 0.96 mg/dL 0.89 Sodium 136 - 144 mmol/L 141 Potassium 3.7 - 5.1 mmol/L 4.3 Chloride 97 - 105 mmol/L 100 CO2 22 - 30 mmol/L 27 Anion Gap 9 - 18 mmol/L 14 ALT 7 - 38 U/L 20 eGFR- >60 eGFR-All Other Races . >60 TSH 0.400 - 5.500 uU/mL 0.980 Component Latest Ref Rng AND Units 10/28/2017 03/25/2018 04/02/2018 Hep C Antibody IA Negative Negative HIV 12 Combo (Ag/Ab) Non Reactive Non Reactive WSR 0 - 20 mm/hr 2 CRP <0.9 mg/dL <0.1 IMAGING: CXR: Stable chest. ?No acute cardiopulmonary process. ASSESSMENT: 57-year-old lady with transient leukocytosis secondary to Solu-Medrol taper. She has no active infection at this time. Unexplained weight loss and history of colonic polyps. PLAN: - CT abdomen and pelvis because of unexplained weight loss and left upper quadrant pain - Follow-up with Dr. Marcum next week for EGD and colonoscopy evaluation - continue treatment for asthma/bronchitis and follow-up with Dr. Goddard - Start Flonase twice daily for allergy / sinusitis - Dietary and nutrition therapy; start Ensure supplement twice daily and monitor her weight. I spent 45 minutes in the visit, with more than 50% of the total [id number] time of the visit in counseling / coordination of care. No follow-up is needed since Mrs. Jeffers has no underlying hematological problems. The patient and family were allowed enough time to ask questions. All questions were answered to their satisfaction. Patient and family verbalized understanding of treatment plan and agreed to follow up with PCP. Darren Aleman MD. ELECTRONICALLY SIGNED Cc: Dr. Suki Goddard Referring Provider: LEW VERDUZCO [[id number]] Allergies As of Date: 04/02/2018 Noted Allergy Reaction CODEINE 02/15/2005 4 - Hives VICODIN (HYDROCODONE-ACETAMINOPHE*02/15/2005 4 - Hives DEMEROL (MEPERIDINE (PF)) 01/03/2006 2 - Rash BACTRIM (SULFAMETHOXAZOLE-TRIMETH*07/25/2005 Comments: uncertain CELEXA (CITALOPRAM HYDROBROMIDE) 07/25/2005 8 - GI Upset DOXY (DOXYCYCLINE) 06/04/2005 Comments: rash and asthma DUREZOL (DIFLUPREDNATE) 03/04/2014 2 - Rash Environmental allergies [Other] 02/25/2006 Comments: Dogs, molds IBUPROFEN 07/25/2005 12 - Shortness of Breath LEXAPRO (ESCITALOPRAM OXALATE) 07/25/2005 8 - GI Upset LYRICA (PREGABALIN) 04/10/2011 1 - Mental Status Change Comments: dizzy MAPROTILINE 05/16/2009 9 - Itching MUCOMYST (ACETYLCYSTEINE) 10/30/2012 3 - Cough Comments: increase wheezing OXYCODONE 01/17/2011 12 - Shortness of Breath PENICILLINS 01/09/2005 Comments: rash PREDNISONE 07/30/2006 9 - Itching TORADOL (KETOROLAC TROMETHAMINE) 04/06/2011 7 - Swelling TYLENOL (ACETAMINOPHEN) 01/02/2006 5 - Intolerance Comments: asthma ULTRAM (TRAMADOL HCL) 07/25/2005 14 - Other: See Comments Comments: chest pains VANCOMYCIN 01/21/2015 14 - Other: See Comments Comments: Wheezing after taking, legs swollen and tongue swelling and scratchy neck VENLAFAXINE 07/09/2011 8 - GI Upset ZITHROMAX (AZITHROMYCIN) 01/19/2005 9 - Itching MIRTAZAPINE 11/17/2013 14 - Other: See Comments Comments: Hand shakes. Date Reviewed: 04/02/2018 Reviewed by: Kirstin Melendrez (Michelle) MICHELLE Mazariegos - Fully Assessed Reason for Visit: New Patient [[id number]] Primary Visit Diagnosis:Ankylosing spondylitis of multiple sites in spine (HCC) [M45.0] Other Visit Diagnoses:LUQ abdominal pain [R10.12] Abnormal weight loss [R63.4] Bandemia [D72.825] Adenomatous polyp of colon, unspecified part of colon [D12.6] Order(s):CT ABD/PEL W IVCON [[id number]] Order #: [id number] FUTURE iv contrast (will be provided with radiology test)CT ABD/PEL -Inject, intravenously, once for 1 dose.No IV access, insert saline lock prior to the beginning of sedation, infusion, injection of imaging exam. Discontinue saline lock post exam. If Pt. has a central line or IVAD, may access for administration according to line specific nursing protocol. Once exam is complete flush line and de- access according to line specific nursing protocol in the CT contrast administration guidelines link.Disp: 1 EachRfl: 0 enteric contrast (will be provided with radiology test)For CT ABD/PEL W IVCON Routine order Administer, As Directed One Time Only, via Oral, Rectal, both Oral and Rectal, Enteric Tube, Stoma or Indwelling Catheter, Enteric Contrast as designated per enteric contrast guidelinesDisp: 1 EachRfl: 0 fluticasone (FLONASE) 50 mcg/actuation nasal sprayUse 1 Beaman in each nostril twice daily. VIA SPACER THEN RINSE AND GARGLE MOUTH WITH WATER.Disp: 1 BottleRfl: 0 Level of Service: NEW PATIENT VISIT LEVEL 4 [[id number]] Disposition: Return if symptoms worsen or fail to improve. Follow-up and Disposition History Recorded Prescriptions as of 04/02/2018 Sig: CALTRATE PLUS ORAL Take 1 capsule by mouth once * BUDESONIDE-FORMOTEROL HFA 160* Inhale 2 Puffs as instructed * LANSOPRAZOLE 30 MG CAPSULE,DE* take 1 capsule by mouth once * IPRATROPIUM-ALBUTEROL 0.5 MG-* Inhale 3 mL as instructed alissa* SUCRALFATE 1 GRAM TABLET Take 1 tablet by mouth before* MONTELUKAST 10 MG TABLET take 1 tablet by mouth at bed* ESTRADIOL 0.5 MG TABLET take 1 tablet by mouth once d* RANITIDINE 150 MG TABLET take 1 tablet by mouth twice * CLONAZEPAM 0.5 MG TABLET Take 1 tablet by mouth twice * IMIPRAMINE 25 MG TABLET Take 2 tablets by mouth daily* ALBUTEROL SULFATE HFA 90 MCG/* Inhale 2 Puffs as instructed * SIMVASTATIN 40 MG TABLET Take 1 tablet by mouth daily * DICYCLOMINE 10 MG CAPSULE Take 1 capsule by mouth four * Patient taking differently: Take 10 mg by mouth three berny* FLUTICASONE 50 MCG/ACTUATION * Use in the nose. SHAKE WELL * IMODIUM ORAL Take by mouth as needed. FEXOFENADINE 180 MG TABLET Take one(1) tablet daily. CETAPHIL MOISTURIZING LOTION apply twice daily IV CONTRAST (RADIOLOGY PROCED* CT ABD/PEL -Inject, intraveno* ENTERIC CONTRAST (RADIOLOGY P* For CT ABD/PEL W IVCON Routin* FLUTICASONE 50 MCG/ACTUATION * Use 1 Beaman in each nostril t* FENTANYL 25 MCG/HR TRANSDERMA* Apply 1 Patch as directed alissa* CHOLECALCIFEROL (VITAMIN D3) * Take 1,000 Units by mouth onc* Medication notes this encounter METHYLPREDNISOLONE 8 MG TABLET >> Kirstin Mazariegos LPN, MICHELLE 04/02/2018 10:34 AM >> KIRSTIN MAZARIEGOS SatApr 02, 2018 10:34 AM completed Problem List As Of Date 04/02/2018 Noted Resolved Asthma with chronic obstructive pulmonary disea*INVALID FOR* CHRONIC CYSTITIS NEC [N30.20] INVALID FOR* Vaginitis and vulvovaginitis, unspecified [N76.*INVALID FOR*02/25/2015 Anxiety and depression [F41.9, F32.9] INVALID FOR* PURE HYPERCHOLESTEROLEM [E78.00] Acute gastritis [535.0] 02/25/2015 Irritable bowel syndrome [K58.9] Congenital anomalies of foot, 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*INVALID FOR*02/25/2015 ANKYLOSING SPONDYLITIS [M45.9] INVALID FOR* CHRONIC RHINITIS [J31.0] INVALID FOR* Sinusitis, chronic [J32.9] INVALID FOR* Intrinsic asthma, unspecified [J45.909] INVALID FOR*08/31/2016 ESOPHAGEAL REFLUX [K21.9] INVALID FOR* Acute gastritis without mention of hemorrhage [*INVALID FOR*02/25/2015 Fibromyalgia [M79.7] INVALID FOR* COPD (chronic obstructive pulmonary disease) (H*INVALID FOR*07/18/2017 Calcaneal spur [M77.30] INVALID FOR*02/25/2015 Plantar fasciitis [M72.2] INVALID FOR*02/25/2015 HNP (herniated nucleus pulposus), lumbar [M51.2*INVALID FOR*07/11/2016 Myofascial muscle pain [M79.18] INVALID FOR*07/11/2016 DDD (degenerative disc disease), lumbar [M51.36]INVALID FOR* Back pain [M54.9] INVALID FOR*07/11/2016 Osteoporosis [M81.0] INVALID FOR* Abnormal ultrasound of breast [R92.8] INVALID FOR*02/25/2015 Colon polyp [K63.5] INVALID FOR*10/16/2016 Serrated adenoma of colon [D12.6] INVALID FOR* Stress and adjustment reaction [F43.29] INVALID FOR*07/11/2016 Enterocolitis due to Clostridium difficile [A04*INVALID FOR*07/17/2016 Kidney stone on left side [N20.0] INVALID FOR*08/31/2016 Colonic polyp [K63.5] INVALID FOR*03/10/2015 Bilateral renal cysts [N28.1] INVALID FOR*07/11/2016 Abnormal toxicological findings [R89.2] INVALID FOR*01/16/2017 Nasal polyposis [J33.9] INVALID FOR* Menopause syndrome [N95.1] INVALID FOR* 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] INVALID FOR* HNP (herniated nucleus pulposus), lumbar [M51.2*INVALID FOR* Other instructions from your clinician: Take 2 bottles of ENSURE per day between meals Visit Notes: >> Kirstin Melendrez (Dredge Operator Supervisor) MICHELLE Mazariegos SatApr 02, 2018 10:37 AM Status: Signed New patient, discuss recent lab results DX: Leukocytosis Kirstin Melendrez MICHELLE Mazariegos Encounter Status:Closed by DARREN ALEMAN MD on 04/03/18 CHAIM ABS GR + CBC Collected: 04/02/2018 Status: F Source: [place] 9:51 AM [facility] REPOSITORY TYPE CODE TESTS RESULT OUT OF REFERENCE UNITS RANGE LAB WWBC 3.70-11.00 k/uL [place] WBC 10.83 LAB WRBC 3.90-5.20 m/uL [place] RBC 5.05 LAB WHGB 11.5-15.5 g/dL [place] Hemoglobin 14.1 LAB WHCT 36.0-46.0 % [place] Hematocrit 45.5 LAB WMCV 80.0-100.0 fL [place] MCV 90.1 LAB WMCH 26.0-34.0 pg [place] MCH 27.9 LAB WMCHC 30.5-36.0 g/dL [place] MCHC 31.0 LAB WRDW 11.5-15.0 % [place] High RDW 15.3 LAB WPLT 150-400 k/uL [place] Platelet Cnt 375 LAB WMPV 9.0-12.7 fL [place] MPV 9.1 Result Comment: Test performed at: [facility], [address] [place] [address]. LAB ABGRAN 1.45-7.50 k/uL Absol Gran 6.83 Count SED RATE WESTERGREN Collected: 04/02/2018 Status: F Source: [place] 9:51 AM [facility] REPOSITORY TYPE CODE TESTS RESULT OUT OF REFERENCE UNITS RANGE LAB WSR 0-20 mm/hr Sed Rate Westergren 2 Performed By: #### WSR, CRP #### [facility] [address], [place] [address] C-REACTIVE PROTEIN Collected: 04/02/2018 Status: F Source: [place] 9:51 AM [facility] REPOSITORY TYPE CODE TESTS RESULT OUT OF REFERENCE UNITS RANGE LAB CRP <0.9 mg/dL C-Reactive <0.1 Protein Performed By: #### WSR, CRP #### [facility] [employer] [facility] [address] [place], [place] [address] PROGRESS Observed: 03/28/2018 Status: COMPLETED Source: [place] 12:05 PM [facility] REPOSITORY HNO ID: [id number] Author: Wendy Eastman Service: (none) Author Type: (none) Type: Progress Notes Filed: 03/28/2018 12:05 PM Note Text: Radiology Service Progress Note PATIENT NAME: Chey Jeffers DATE OF SERVICE: March 28, 2018 TIME: 12:05 PM PATIENT IDENTITY VERIFICATION COMPLETED USING TWO (2) METHODS: Patient confirmed name verbally and Date of . PATIENT GENDER DATA: Female. status: : No status: NO. PATIENT RELEVANT IMPLANT DATA REVIEWED: Not Applicable RADIOLOGY DEPARTMENT: CT; Exam(s) Completed: Sinus PERIPHERAL IV DATA: Not applicable SIGNED BY: Wendy Eastman March 28, 2018 12:[address] SINUS WO IVCON Observed: 03/28/2018 Status: F Source: [place] 9:42 AM [facility] REPOSITORY * * *Final Report* * * DATE OF EXAM: Mar 28 2018 9:42AM [facility] 0488 - CT SINUS WO IVCON / PROCEDURE REASON: multiple diagnoses * * * * Physician Interpretation * * * * EXAMINATION: CT SINUS WO IVCON CLINICAL HISTORY: Other polyp of sinus. Chronic pansinusitis. TECHNIQUE: Spiral high resolution axial unenhanced CT images were obtained through the paranasal sinuses with sagittal, coronal reconstructions. MQ: CTSI_1 Dose-Length Product (DLP): 133 mGy*cm. CT Dose Reduction Employed: Automated exposure control(AEC) and iterative recon COMPARISON: 06/21/[address] RESULT: RESULT: Post-Surgical Findings: Bilateral middle nasal turbinectomies, uncinectomies/maxillary antrostomies, sphenoethmoid osteotomies, and ethmoidectomies. Sinus Chambers: Moderate left and mild right mucosal thickening in the frontal sinuses and extending into the frontal sinus drainage pathways. Mucosal thickening marginating the ethmoidectomies. Opacification of the right sphenoid sinus. Moderate mucosal thickening throughout the left sphenoid sinus with patent left sphenoethmoidal ostium. Moderate mucosal thickening throughout the maxillary sinuses with extensive mucoperiosteal thickening. Scattered areas of hyperdensity throughout the mucosal thickening and secretions which may relate to inspissated secretions or fungal elements. Nasal Cavities: Widely patent with midline positioning of the nasal septum. Mucosal irregularity or secretions extending to the right of midline from the posterior nasal septum (series 3, image 24). Heterogenous secretions in the posterior nasopharynx on the left. Developmental Anomalies: None Ostiomeatal Complex: Patent bilateral maxillary antrostomies. Other: The visualized mastoid air cells and middle ear cavities are clear. Bilateral cataract surgery. The soft tissues of the face and orbits are within normal limits within the limitations of the study. IMPRESSION: Postoperative changes as above with extensive sequelae of chronic pansinusitis, progressed from the 2009 study. Interior Decorator: SHANON Transcribe Date/Time: Mar 28 2018 10:28A Dictated by : ALBA CISNEROS MD This examination was interpreted and the report reviewed and electronically signed by: ALBA CISNEROS MD on Mar 28 2018 10:41AM EST [id number] XR CHEST 2V FRONTAL/LAT Observed: 03/25/2018 Status: F Source: [place] 3:01 PM [facility] REPOSITORY * * *Final Report* * * DATE OF EXAM: Mar 25 2018 3:01PM [facility] [id number] - XR CHEST 2V FRONTAL/LAT / PROCEDURE REASON: Unintentional weight loss * * * * Physician Interpretation * * * * EXAMINATION: CHEST RADIOGRAPH (2 VIEW FRONTAL and LATERAL) CLINICAL HISTORY: Unintentional weight loss MQ: XC2_5 Comparison: Comparison is made to prior chest dated 30 March 2016 RESULT: Lines, tubes, and devices: None. Lungs and pleura: There is no focal consolidation or acute pleural process. There is no overt pulmonary edema. Cardiomediastinal silhouette: Normal cardiomediastinal silhouette. Other: The bony structures are intact IMPRESSION: Stable chest. No acute cardiopulmonary process. Interior Decorator: SHANON Transcribe Date/Time: Mar 25 2018 3:26P Dictated by : MARLENE TREJO MD This examination was interpreted and the report reviewed and electronically signed by: MARLENE TREJO MD on Mar 25 2018 3:27PM EST [id number] PROGRESS Observed: 03/25/2018 Status: COMPLETED Source: [place] 2:53 PM [facility] REPOSITORY HNO ID: [id number] Author: Ju Brooks (Rt) Carol Graham Service: (none) Author Type: Applique Cutter Type: Progress Notes Filed: 03/25/2018 3:01 PM Note Text: Radiology Service Progress Note PATIENT NAME: Chey Jeffers DATE OF SERVICE: March 25, 2018 TIME: 2:53 PM PATIENT IDENTITY VERIFICATION COMPLETED USING TWO (2) METHODS: Patient confirmed name verbally and Date of . PATIENT GENDER DATA: Female. status: : No status: NO. PATIENT RELEVANT IMPLANT DATA REVIEWED: Not Applicable RADIOLOGY DEPARTMENT: General X-ray: Exam(s) Completed: Chest X-Ray PERIPHERAL IV DATA: Not applicable SIGNED BY: RT Ross March 25, 2018 2:53 PM CBC AND DIFFERENTIAL Collected: 03/25/2018 Status: F Source: [place] 2:49 PM [facility] REPOSITORY TYPE CODE TESTS RESULT OUT OF REFERENCE UNITS RANGE LAB WBC 3.70-11.00 k/uL WBC High 15.33 LAB RBC 3.90-5.20 m/uL RBC 5.13 LAB HGB 11.5-15.5 g/dL Hemoglobin 14.0 LAB HCT 36.0-46.0 % High Hematocrit 46.3 LAB MCV 80.0-100.0 fL MCV 90.3 LAB MCH 26.0-34.0 pG MCH 27.3 LAB MCHC 30.5-36.0 g/dL Low MCHC 30.2 LAB RDWCV 11.5-15.0 % RDW-CV 14.5 LAB PLTCT 150-400 k/uL Platelet High Count 453 LAB MPV 9.0-12.7 fL MPV 9.9 LAB ANEUT % Neut% 87.0 LAB AANEUT 1.45-7.50 k/uL Abs Neut High 13.34 LAB ALYMP % Lymph% 8.9 LAB AALYMP 1.00-4.00 k/uL Abs Lymph 1.37 LAB AMONO % [place]% 3.6 LAB AAMONO <0.87 k/uL Abs [place] 0.55 LAB AEOS % Eosin% 0.2 LAB AAEOS <0.46 k/uL Abs Eosin 0.03 LAB ABASO % Baso% 0.3 LAB AABASO <0.11 k/uL Abs Baso 0.04 LAB AUNRBC 0 /100 WBC NRBCs 0.0 LAB ABNRBC <0.01 k/uL Absolute nRBC <0.01 LAB DTYP DTYPE Auto Diff Performed By: #### CBCDIF, CMP, TSH, HIV12C #### [facility] [address] [place], [place] [address] COMP METABOLIC PANEL Collected: 03/25/2018 Status: F Source: [place] 2:49 PM [facility] REPOSITORY TYPE CODE TESTS RESULT OUT OF REFERENCE UNITS RANGE LAB TP 6.3-8.0 g/dL Protein, Total 6.6 LAB ALB 3.9-4.9 g/dL Albumin 4.2 LAB CA 8.5-10.2 mg/dL Calcium, Total 9.5 LAB TBIL 0.2-1.3 mg/dL Bilirubin, Total 0.2 LAB ALKP 34-123 U/L Alkaline Phosphatase 72 LAB AST 13-35 U/L AST 17 LAB GLU 74-99 mg/dL Glucose 77 Result Comment: The [place] Diabetes Association (ADA) provides guidance for cutoff values for fasting glucose and random glucose. The ADA defines fasting as no caloric intake for at least 8 hours. Fas ting plasma glucose results between 100 to 125 mg/dL indicate increased risk for diabetes (prediabetes). Fasting plasma glucose results greater than or equal to 126 mg/dL meet the criteria for diagnosis of diabetes. In the absence of unequivocal hyperglycemia, results should be confirmed by repeat testing. In a patient with classic symptoms of hyperglycemia or hyperglycemic crisis, random plasma glucose results greater than or equal to 200 mg/dL meet the criteria for diagnosis of diabetes. Reference: Standards of Medical Care in Diabetes 2016, [place] [employer] Association. Diabetes Care. 2016.39(Suppl 1). LAB BUN 7-21 mg/dL BUN 19 LAB CRET 0.58-0.96 mg/dL Creatinine 0.89 LAB NA 136-144 mmol/L Sodium 141 LAB K 3.7-5.1 mmol/L Potassium 4.3 LAB CL 97-105 mmol/L Chloride 100 LAB CO2 22-30 mmol/L CO2 27 LAB AGAP 9-18 mmol/L Anion Gap 14 LAB ALT 7-38 U/L ALT 20 LAB GFRAA eGFR- Amer. >60 LAB GFRNAA . eGFR-All Other Races >60 Result Comment: eGFR (Estimated GFR) Units of measure: mL/min/1.73 meters squared eGFR is derived from the reexpressed MDRD Study equation using the following parameters: serum creatinine, age, gender and race. The creatinine assay has been calibrated to be traceable to IDMS. An eGFR <60 mL/min/1.73m2 for >3 months is consistent with chronic kidney disease. Refer to KDOQI guidelines for clinical interpretation. In patients with unstable renal function, e.g. those with acute kidney injury, the eGFR may not accurately reflect actual GFR. Performed By: #### CBCDIF, CMP, TSH, HIV12C #### [facility] [address] [place] [address] TSH Collected: 03/25/2018 Status: F Source: [place] 2:49 PM [facility] REPOSITORY TYPE CODE TESTS RESULT OUT OF RANGE REFERENCE UNITS LAB TSH 0.400-5.500 uU/mL TSH 0.980 Performed By: #### CBCDIF, CMP, TSH, HIV12C #### [facility] [address] [place] [address] HIV 12 COMBO (AG/AB) Collected: 03/25/2018 Status: F Source: [place] 2:49 PM [facility] REPOSITORY TYPE CODE TESTS RESULT OUT OF REFERENCE UNITS RANGE LAB HVAGAB Non Reactive HIV Non Reactive 12 Ag/Ab Result Comment: (NOTE) HIV Information: [place] Rev. Code 3701.243(E): This information has been disclosed to you from confidential records protected from disclosure by state law. You shall make no further disclosure of this information without the specific, written, and informed release of the individual to whom it pertains, or as otherwise permitted by state law. A general authorization for the release of medical or other information is not sufficient for the purpose of the release of HIV test results or diagnoses. Performed By: #### CBCDIF, CMP, TSH, HIV12C #### [facility] [address] [place], [place] [address] PROGRESS Observed: 03/25/2018 Status: COMPLETED Source: [place] 2:14 PM [facility] REPOSITORY HNO ID: [id number] Author: Colton Albert) Driss Service: (none) Author Type: Physician Type: Progress Notes Filed: 03/25/2018 2:52 PM Note Text: Chief Complaint Patient presents with: transfer care Asthma HPI Chey Jeffers is a 57 year old female who presents here today for transfer of care visit from Dr. Verduzco. Recently seen by Dr. Goddard 8 days ago for history of Severe uncontrolled asthma without COPD and was started on Symbicort along with her rescue inhaler. Since starting new inhaler, has not required her rescue inhaler more than twice in the last 8 days. Denies cough, SOB, wheezing, chest pain. Rinsing mouth out after use. Has scheduled f/u appointment on 04/17. Complaining today of weight loss. Down 10 lbs in the 8 months. States she is eating 3 meals per day. Has not been trying to lose weight. Admits to night sweats 2-3 times per week without documented fever. May be related to wearing flannel pajamas with flannel sheets or menopause. Denies hemoptysis, recent incarceration, overseas travel, known contacts with TB or HIV. Requesting refills on Fentanyl patch and Klonopin today. Discussed that I do not prescribe these medications adjunct faculty for medical terminology for patient and she would have to be seen by pain management and psychiatry for halfway rx, but we could fill until then after obtaining controlled substance agreement. Patient would prefer to return to seeing Dr. Verduzco. . Past medical history, appointments, medications, allergies reviewed. Previous Medical History PAST MEDICAL HISTORY Diagnosis Date - Abnormal ultrasound of breast 06/17/2013 - Acute gastritis - Ankylosing spondylitis (HCC) - Anxiety and depression 06/12/2005 - Bilateral renal cysts 03/11/2015 - Calculus of kidney - Dysthymic disorder Depression (non-psychotic) - Enterocolitis due to Clostridium difficile 01/12/2015 - Esophageal reflux - HNP (herniated nucleus pulposus), lumbar 08/22/2011 - Intrinsic asthma, unspecified 08/05/2008 - Irritable bowel syndrome Irritable bowel - FDC 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 01/16/2017 - Menopause syndrome 01/19/2005 - Myalgia and myositis, unspecified - Nasal polyposis Polypectomy 03/2017 Dr. Mazariegos [facility]. - Pure hypercholesterolemia - Serrated adenoma of colon 07/29/2014 - Symptomatic menopausal or female climacteric states - Unspecified asthma(493.90) - Unspecified sinusitis (chronic) 06/21/2008 Previous Surgical History PAST SURGICAL HISTORY Procedure Laterality Date - COLONOSCOP W/ OR W/O BRSH SPEC 04/24/2001 Colonoscopy - COLONOSCOP W/ OR W/O BRSH SPEC 06/16/2013 Colonoscopy - COLONOSCOP W/ OR W/O BRSH SPEC 03/10/2014 Colonoscopy - COLONOSCOP W/ OR W/O BRS SPEC 03/10/15 Colonoscopy - EGD W/O OR W/BRUSH/WASH 04/24/2001 EGD - EGD W/O OR W/BRUSH/WASH 07/11/2009 EGD - EXCISION NOSE POLYP(S),SIMPLE 2007 Nasal polypectomy, Dr. Mcclelland - LAP COLECTMY W/ILEUM/ILEOCOL 07-16-14 - PAST SURGICAL HISTORY OF 2013 left breast biopsy- benign - REMOVAL GALLBLADDER 1998 Cholecystectomy - REMV CATARACT EXTRACAP,INSERT LENS 10/10-2013 Cataract Extraction with PC IOL - REPAIR OF NASAL SEPTUM 2006 Septoplasty - SINUS SURGERY PROCEDURE Bilateral 04/02/2017 [facility] [address]. Mazariegos. Sinonasal polypectomy, revision maxillary antrostomy, total ethmoidectomy, sphenoidotomy - TOTAL ABDOM HYSTERECTOMY 1992 Hysterectomy, OPAL BSO Family History FAMILY HISTORY Problem Relation Age of Onset - Emphysema Mother diabetic - Heart Mother Blockage and she needs a bypass, but her COPD prevents - Emphysema Father - Heart Father - Cancer Maternal Grandmother lung - Colon Cancer Maternal Aunt - COPD Maternal Uncle - Coronary Artery Disease Paternal Aunt - Breast Cancer Other mothers side (cousin) - Cancer Maternal Uncle lung Patient Allergies ALLERGIES Allergen Reactions - Codeine Hives - Vicodin [Hydrocodon* Hives - Demerol [Meperidine* Rash - Bactrim [Sulfametho* uncertain - Celexa [Citalopram * GI Upset - Doxy [Doxycycline] rash and asthma - Durezol [Diflupredn* Rash - Environmental Aller* Dogs, molds - Ibuprofen Shortness of Breath - Lexapro [Escitalopr* GI Upset - Lyrica [Pregabalin] Mental Status Change dizzy - Maprotiline Itching - Mucomyst [Acetylcys* Cough increase wheezing - Oxycodone Shortness of Breath - Penicillins rash - Prednisone Itching - Toradol [Ketorolac * Swelling - Tylenol [Acetaminop* Intolerance asthma - Ultram [Tramadol Hc* Other: See Comments chest pains - Vancomycin Other: See Comments Wheezing after taking, legs swollen and tongue swelling and scratchy neck - Venlafaxine GI Upset - Zithromax [Azithrom* Itching - Mirtazapine Other: See Comments Hand shakes. Current Medications Current Outpatient Prescriptions on File Prior to Visit: methylPREDNISolone (MEDROL) 8 mg tablet 4 tabs daily for 3 days, 3 tabs daily for 3 days, 2 tabs daily for 3 days, 1 tab daily for 3 days. budesonide-formoterol (SYMBICORT) 160-4.5 mcg/actuation inhaler Inhale 2 Puffs as instructed twice daily. lansoprazole (PREVACID) 30 mg capsule take 1 capsule by mouth once daily ipratropium-albuterol (DUONEB) 0.5 mg-3 mg(2.5 mg base)/3 mL nebu Inhale 3 mL as instructed every 4 hours as needed. sucralfate (CARAFATE) 1 gram tablet Take 1 tablet by mouth before meals and at bedtime. [START ON 03/31/2018] fentaNYL (DURAGESIC) 25 mcg/hr Apply 1 Patch as directed every 72 hours for 30 days.Earliest Fill Date: 03/31/18 montelukast (SINGULAIR) 10 mg tablet take 1 tablet by mouth at bedtime Estradiol (ESTRACE) 0.5 mg tablet take 1 tablet by mouth once daily ranitidine (ZANTAC) 150 mg tablet take 1 tablet by mouth twice a day clonazePAM (KLONOPIN) 0.5 mg tablet Take 1 tablet by mouth twice daily for 180 days. imipramine HCl (TOFRANIL) 25 mg tablet Take 2 tablets by mouth daily at bedtime. albuterol HFA (VENTOLIN HFA) 90 mcg/actuation inhaler Inhale 2 Puffs as instructed every 4 hours as needed for Wheezing/Shortness of Breath. simvastatin (ZOCOR) 40 mg tablet Take 1 tablet by mouth daily at bedtime. dicyclomine (BENTYL) 10 mg capsule Take 1 capsule by mouth four times daily. (Patient taking differently: Take 10 mg by mouth three times daily. ) fluticasone (FLONASE) 50 mcg/actuation nasal spray Use in the nose. SHAKE WELL before using. Blow nose prior to use. Prime pump before using. LOPERAMIDE HCL (IMODIUM ORAL) Take by mouth as needed. Cholecalciferol, Vitamin D3, (VITAMIN D) 1,000 unit cap Take 1,000 Units by mouth once daily. fexofenadine (NAN) 180 mg ORAL tablet Take one(1) tablet daily. vit e acetate/gly/dimeth/water(CETAPHIL MOISTURIZING LOTION) apply twice daily No current facility-administered medications on file prior to visit. Social History Social History Marital status: Single Spouse name: Years of education: Number of children: 0 Occupational History Occupation Employer Comment [employer] Social History Main Topics Smoking status: Never Smoker Smokeless tobacco: Never Used Comment: ETS from parents in childhood home. Currently also has some household ETS. 03/17/2018. Alcohol use: No Drug use: No Sexual activity: No Comment: single Review of Symptoms REVIEW OF SYSTEMS GENERAL: No weight loss, malaise or fevers RESPIRATORY: Negative for cough, hemoptysis, wheezing, COPD, dyspnea or shortness of breath CARDIOVASCULAR: Negative for chest pain, leg swelling, hypertension, CHF or palpitations GI: No nausea, vomiting, or diarrhea EXAM: BP 104/64 Pulse 98 Resp 12 Ht 154.3 cm (5' 0.75) Wt 40.8 kg (90 lb) SpO2 96% BMI 17.15 kg/m? General Appearance: Well appearing, alert, in no acute distress, well-hydrated, well nourished.. Skin: Skin color, texture, turgor normal, no suspicious rashes or lesions. Oropharynx: Lips, mucosa, and tongue normal, teeth and gums normal, oropharynx normal. Lungs: lungs clear to auscultation. No wheezing, rhonchi, rales. Heart: RRR without murmur, gallop, or rubs. No ectopy. Health Maintenance List INFLUENZA(1) due on 01/04/2018 COLORECTAL CANCER SCREENING,SEE MODIFIER due on 04/07/2018 STEROID INHALER PRESCRIBED due on 04/05/2018 STEROID INHALER ADHERENCE due on 04/05/2018 MAMMOGRAM due on 07/29/2018 ANNUAL PCP TEAM CHRONIC DISEASE VISIT due on 01/16/2019 DIABETES SCREEN due on 10/28/2020 LIPID SCREEN due on 04/06/2022 DTAP,TDAP,TD(3 - Td) due on 03/30/2025 HEPATITIS C SCREENING Completed ASSESSMENT/PLAN: 1. Asthma with chronic obstructive pulmonary disease (COPD) (HCC) - ICD9: 493.20, ICD10: J44.9 (primary diagnosis) Severe persistent Asthma improved - Continue current meds - Albuterol MDI 2 puffs with spacer prn - Avoidance of triggers recommended 2. Unintentional weight loss - ICD9: 783.21, ICD10: R63.4 Obtain labs and imaging to initiate workup. Will forward results to PCP as well. Recommended high calorie diet, supplementing with boost or ensure in the meanwhile. - CBC + DIFF - COMP METABOLIC PANEL - TSH BLD - XR CHEST 2V FRONTAL/LAT - HIV 1,2 COMBO (AG/AB) 3. HNP (herniated nucleus pulposus), lumbar - ICD9: 722.10, ICD10: M51.26 F/u with PCP for refills of fentanyl as discussed. Colton Naqvi MD CNOV Observed: 03/25/2018 Status: COMPLETED Source: [place] 2:00 PM [facility] REPOSITORY Office Visit (FAMPWS) CHEY JEFFERS ([id number]) 1960 F Date Time Provider Department 03/25/18 2:00 PM COLTON NAQVI) FAMPWS During your visit today, we recorded the following information about you: Pulse Respiration Blood pressure Weight 98/minute 12/minute 104/64 40.8 kg Height 1.543 m Colton Naqvi MD 03/25/2018 2:52 PM Signed Chief Complaint Patient presents with: transfer care Asthma HPI Chey Jeffers is a 57 year old female who presents here today for transfer of care visit from Dr. Verduzco. Recently seen by Dr. Goddard 8 days ago for history of Severe uncontrolled asthma without COPD and was started on Symbicort along with her rescue inhaler. Since starting new inhaler, has not required her rescue inhaler more than twice in the last 8 days. Denies cough, SOB, wheezing, chest pain. Rinsing mouth out after use. Has scheduled f/u appointment on 04/17. Complaining today of weight loss. Down 10 lbs in the 8 months. States she is eating 3 meals per day. Has not been trying to lose weight. Admits to night sweats 2-3 times per week without documented fever. May be related to wearing flannel pajamas with flannel sheets or menopause. Denies hemoptysis, recent incarceration, overseas travel, known contacts with TB or HIV. Requesting refills on Fentanyl patch and Klonopin today. Discussed that I do not prescribe these medications adjunct faculty for medical terminology for patient and she would have to be seen by pain management and psychiatry for halfway rx, but we could fill until then after obtaining controlled substance agreement. Patient would prefer to return to seeing Dr. Verduzco. . Past medical history, appointments, medications, allergies reviewed. 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 Mazariegos [facility]. - Pure hypercholesterolemia - Serrated adenoma of colon 07/29/2014 - Symptomatic menopausal or female climacteric states - Unspecified asthma(493.90) - Unspecified sinusitis (chronic) 06/21/2008 Previous Surgical History PAST SURGICAL HISTORY Procedure Laterality Date - COLONOSCOP W/ OR W/O [facility] SPEC 04/24/2001 Colonoscopy - COLONOSCOP W/ OR W/O [facility] SPEC 06/16/2013 Colonoscopy - COLONOSCOP W/ OR W/O [facility] SPEC 03/10/2014 Colonoscopy - COLONOSCOP W/ OR W/O [facility] SPEC 03/10/15 Colonoscopy - EGD W/O OR W/BRUSH/WASH 04/24/2001 EGD - EGD W/O OR W/BRUSH/WASH 07/11/2009 EGD - EXCISION NOSE POLYP(S),SIMPLE 2007 Nasal polypectomy, Dr. Mcclelland - LAP COLECTMY W/ILEUM/ILEOCOL 07-16-14 - PAST SURGICAL HISTORY OF 2013 left breast biopsy- benign - REMOVAL GALLBLADDER 1998 Cholecystectomy - REMV CATARACT EXTRACAP,INSERT LENS 10/10-2013 Cataract Extraction with PC IOL - REPAIR OF NASAL SEPTUM 2006 Septoplasty - SINUS SURGERY PROCEDURE Bilateral 04/02/2017 [facility] Dr. Mazariegos. Sinonasal polypectomy, revision maxillary antrostomy, total ethmoidectomy, sphenoidotomy - TOTAL ABDOM HYSTERECTOMY 1992 Hysterectomy, OPAL BSO Family History FAMILY HISTORY Problem Relation Age of Onset - Emphysema Mother diabetic - Heart Mother Blockage and she needs a bypass, but her COPD prevents - Emphysema Father - Heart Father - Cancer Maternal Grandmother lung - Colon Cancer Maternal Aunt - COPD Maternal Uncle - Coronary Artery Disease Paternal Aunt - Breast Cancer Other mothers side (cousin) - Cancer Maternal Uncle lung Patient Allergies ALLERGIES Allergen Reactions - Codeine Hives - Vicodin [Hydrocodon* Hives - Demerol [Meperidine* Rash - Bactrim [Sulfametho* uncertain - Celexa [Citalopram * GI Upset - Doxy [Doxycycline] rash and asthma - Durezol [Diflupredn* Rash - Environmental Aller* Dogs, molds - Ibuprofen Shortness of Breath - Lexapro [Escitalopr* GI Upset - Lyrica [Pregabalin] Mental Status Change dizzy - Maprotiline Itching - Mucomyst [Acetylcys* Cough increase wheezing - Oxycodone Shortness of Breath - Penicillins rash - Prednisone Itching - Toradol [Ketorolac * Swelling - Tylenol [Acetaminop* Intolerance asthma - Ultram [Tramadol Hc* Other: See Comments chest pains - Vancomycin Other: See Comments Wheezing after taking, legs swollen and tongue swelling and scratchy neck - Venlafaxine GI Upset - Zithromax [Azithrom* Itching - Mirtazapine Other: See Comments Hand shakes. Current Medications Current Outpatient Prescriptions on File Prior to Visit: methylPREDNISolone (MEDROL) 8 mg tablet 4 tabs daily for 3 days, 3 tabs daily for 3 days, 2 tabs daily for 3 days, 1 tab daily for 3 days. budesonide-formoterol (SYMBICORT) 160-4.5 mcg/actuation inhaler Inhale 2 Puffs as instructed twice daily. lansoprazole (PREVACID) 30 mg capsule take 1 capsule by mouth once daily ipratropium-albuterol (DUONEB) 0.5 mg-3 mg(2.5 mg base)/3 mL nebu Inhale 3 mL as instructed every 4 hours as needed. sucralfate (CARAFATE) 1 gram tablet Take 1 tablet by mouth before meals and at bedtime. [START ON 03/31/2018] fentaNYL (DURAGESIC) 25 mcg/hr Apply 1 Patch as directed every 72 hours for 30 days.Earliest Fill Date: 03/31/18 montelukast (SINGULAIR) 10 mg tablet take 1 tablet by mouth at bedtime Estradiol (ESTRACE) 0.5 mg tablet take 1 tablet by mouth once daily ranitidine (ZANTAC) 150 mg tablet take 1 tablet by mouth twice a day clonazePAM (KLONOPIN) 0.5 mg tablet Take 1 tablet by mouth twice daily for 180 days. imipramine HCl (TOFRANIL) 25 mg tablet Take 2 tablets by mouth daily at bedtime. albuterol HFA (VENTOLIN HFA) 90 mcg/actuation inhaler Inhale 2 Puffs as instructed every 4 hours as needed for Wheezing/Shortness of Breath. simvastatin (ZOCOR) 40 mg tablet Take 1 tablet by mouth daily at bedtime. dicyclomine (BENTYL) 10 mg capsule Take 1 capsule by mouth four times daily. (Patient taking differently: Take 10 mg by mouth three times daily. ) fluticasone (FLONASE) 50 mcg/actuation nasal spray Use in the nose. SHAKE WELL before using. Blow nose prior to use. Prime pump before using. LOPERAMIDE HCL (IMODIUM ORAL) Take by mouth as needed. Cholecalciferol, Vitamin D3, (VITAMIN D) 1,000 unit cap Take 1,000 Units by mouth once daily. fexofenadine (NAN) 180 mg ORAL tablet Take one(1) tablet daily. vit e acetate/gly/dimeth/water(CETAPHIL MOISTURIZING LOTION) apply twice daily No current facility-administered medications on file prior to visit. Social History Social History Marital status: Single Spouse name: Years of education: Number of children: 0 Occupational History Occupation Employer Comment [employer] Social History Main Topics Smoking status: Never Smoker Smokeless tobacco: Never Used Comment: ETS from parents in childhood home. Currently also has some household ETS. 03/17/2018. Alcohol use: No Drug use: No Sexual activity: No Comment: single Review of Symptoms REVIEW OF SYSTEMS GENERAL: No weight loss, malaise or fevers RESPIRATORY: Negative for cough, hemoptysis, wheezing, COPD, dyspnea or shortness of breath CARDIOVASCULAR: Negative for chest pain, leg swelling, hypertension, CHF or palpitations GI: No nausea, vomiting, or diarrhea EXAM: BP 104/64 Pulse 98 Resp 12 Ht 154.3 cm (5' 0.75) Wt 40.8 kg (90 lb) SpO2 96% BMI 17.15 kg/m? General Appearance: Well appearing, alert, in no acute distress, well-hydrated, well nourished.. Skin: Skin color, texture, turgor normal, no suspicious rashes or lesions. Oropharynx: Lips, mucosa, and tongue normal, teeth and gums normal, oropharynx normal. Lungs: lungs clear to auscultation. No wheezing, rhonchi, rales. Heart: RRR without murmur, gallop, or rubs. No ectopy. Health Maintenance List INFLUENZA(1) due on 01/04/2018 COLORECTAL CANCER SCREENING,SEE MODIFIER due on 04/07/2018 STEROID INHALER PRESCRIBED due on 04/05/2018 STEROID INHALER ADHERENCE due on 04/05/2018 MAMMOGRAM due on 07/29/2018 ANNUAL PCP TEAM CHRONIC DISEASE VISIT due on 01/16/2019 DIABETES SCREEN due on 10/28/2020 LIPID SCREEN due on 04/06/2022 DTAP,TDAP,TD(3 - Td) due on 03/30/2025 HEPATITIS C SCREENING Completed ASSESSMENT/PLAN: 1. Asthma with chronic obstructive pulmonary disease (COPD) (HCC) - ICD9: 493.20, ICD10: J44.9 (primary diagnosis) Severe persistent Asthma improved - Continue current meds - Albuterol MDI 2 puffs with spacer prn - Avoidance of triggers recommended 2. Unintentional weight loss - ICD9: 783.21, ICD10: R63.4 Obtain labs and imaging to initiate workup. Will forward results to PCP as well. Recommended high calorie diet, supplementing with boost or ensure in the meanwhile. - CBC + DIFF - COMP METABOLIC PANEL - TSH BLD - XR CHEST 2V FRONTAL/LAT - HIV 1,2 COMBO (AG/AB) 3. HNP (herniated nucleus pulposus), lumbar - ICD9: 722.10, ICD10: M51.26 F/u with PCP for refills of fentanyl as discussed. Colton Naqvi MD Referring Provider: SELF [[id number]] Allergies As of Date: 03/25/2018 Noted Allergy Reaction CODEINE 02/15/2005 4 - Hives VICODIN (HYDROCODONE-ACETAMINOPHE*02/15/2005 4 - Hives DEMEROL (MEPERIDINE (PF)) 01/03/2006 2 - Rash BACTRIM (SULFAMETHOXAZOLE-TRIMETH*07/25/2005 Comments: uncertain CELEXA (CITALOPRAM HYDROBROMIDE) 07/25/2005 8 - GI Upset DOXY (DOXYCYCLINE) 06/04/2005 Comments: rash and asthma DUREZOL (DIFLUPREDNATE) 03/04/2014 2 - Rash Environmental allergies [Other] 02/25/2006 Comments: Dogs, molds IBUPROFEN 07/25/2005 12 - Shortness of Breath LEXAPRO (ESCITALOPRAM OXALATE) 07/25/2005 8 - GI Upset LYRICA (PREGABALIN) 04/10/2011 1 - Mental Status Change Comments: dizzy MAPROTILINE 05/16/2009 9 - Itching MUCOMYST (ACETYLCYSTEINE) 10/30/2012 3 - Cough Comments: increase wheezing OXYCODONE 01/17/2011 12 - Shortness of Breath PENICILLINS 01/09/2005 Comments: rash PREDNISONE 07/30/2006 9 - Itching TORADOL (KETOROLAC TROMETHAMINE) 04/06/2011 7 - Swelling TYLENOL (ACETAMINOPHEN) 01/02/2006 5 - Intolerance Comments: asthma ULTRAM (TRAMADOL HCL) 07/25/2005 14 - Other: See Comments Comments: chest pains VANCOMYCIN 01/21/2015 14 - Other: See Comments Comments: Wheezing after taking, legs swollen and tongue swelling and scratchy neck VENLAFAXINE 07/09/2011 8 - GI Upset ZITHROMAX (AZITHROMYCIN) 01/19/2005 9 - Itching MIRTAZAPINE 11/17/2013 14 - Other: See Comments Comments: Hand shakes. Date Reviewed: 03/25/2018 Reviewed by: Albert Zafar Ma - Fully Assessed Reason for Visit: transfer care [Other] Asthma [11] Primary Visit Diagnosis:Asthma with chronic obstructive pulmonary disease (COPD) ([facility]) [J44.9] Other Visit Diagnoses:Unintentional weight loss [R63.4] HNP (herniated nucleus pulposus), lumbar [M51.26] Order(s):CBC + DIFF [SQCBCDIF] Order #: [id number] FUTURE COMP METABOLIC PANEL [SQCMP] Order #: [id number] FUTURE TSH BLD [SQTSH] Order #: [id number] FUTURE XR CHEST 2V FRONTAL/LAT [[id number]] Order #: [id number] FUTURE HIV 1,2 COMBO (AG/AB) [SQHIV12] Order #: [id number] FUTURE Prescriptions as of 03/25/2018 Sig: METHYLPREDNISOLONE 8 MG TABLET 4 tabs daily for 3 days, 3 ta* BUDESONIDE-FORMOTEROL HFA 160* Inhale 2 Puffs as instructed * LANSOPRAZOLE 30 MG CAPSULE,DE* take 1 capsule by mouth once * IPRATROPIUM-ALBUTEROL 0.5 MG-* Inhale 3 mL as instructed alissa* SUCRALFATE 1 GRAM TABLET Take 1 tablet by mouth before* FENTANYL 25 MCG/HR TRANSDERMA* Apply 1 Patch as directed alissa* MONTELUKAST 10 MG TABLET take 1 tablet by mouth at bed* ESTRADIOL 0.5 MG TABLET take 1 tablet by mouth once d* RANITIDINE 150 MG TABLET take 1 tablet by mouth twice * CLONAZEPAM 0.5 MG TABLET Take 1 tablet by mouth twice * IMIPRAMINE 25 MG TABLET Take 2 tablets by mouth daily* ALBUTEROL SULFATE HFA 90 MCG/* Inhale 2 Puffs as instructed * SIMVASTATIN 40 MG TABLET Take 1 tablet by mouth daily * DICYCLOMINE 10 MG CAPSULE Take 1 capsule by mouth four * Patient taking differently: Take 10 mg by mouth three breny* FLUTICASONE 50 MCG/ACTUATION * Use in the nose. SHAKE WELL * IMODIUM ORAL Take by mouth as needed. CHOLECALCIFEROL (VITAMIN D3) * Take 1,000 Units by mouth onc* FEXOFENADINE 180 MG TABLET Take one(1) tablet daily. 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*INVALID FOR*02/25/2015 ANKYLOSING SPONDYLITIS [M45.9] INVALID FOR* CHRONIC RHINITIS [J31.0] INVALID FOR* Sinusitis, chronic [J32.9] INVALID FOR* Intrinsic asthma, unspecified [J45.909] INVALID FOR*08/31/2016 ESOPHAGEAL REFLUX [K21.9] INVALID FOR* Acute gastritis without mention of hemorrhage [*INVALID FOR*02/25/2015 Fibromyalgia [M79.7] INVALID FOR* COPD (chronic obstructive pulmonary disease) (H*INVALID FOR*07/18/2017 Calcaneal spur [M77.30] INVALID FOR*02/25/2015 Plantar fasciitis [M72.2] INVALID FOR*02/25/2015 HNP (herniated nucleus pulposus), lumbar [M51.2*INVALID FOR*07/11/2016 Myofascial muscle pain [M79.18] INVALID FOR*07/11/2016 DDD (degenerative disc disease), lumbar [M51.36]INVALID FOR* Back pain [M54.9] INVALID FOR*07/11/2016 Osteoporosis [M81.0] INVALID FOR* Abnormal ultrasound of breast [R92.8] INVALID FOR*02/25/2015 Colon polyp [K63.5] INVALID FOR*10/16/2016 Serrated adenoma of colon [D12.6] INVALID FOR* Stress and adjustment reaction [F43.29] INVALID FOR*07/11/2016 Enterocolitis due to Clostridium difficile [A04*INVALID FOR*07/17/2016 Kidney stone on left side [N20.0] INVALID FOR*08/31/2016 Colonic polyp [K63.5] INVALID FOR*03/10/2015 Bilateral renal cysts [N28.1] INVALID FOR*07/11/2016 Abnormal toxicological findings [R89.2] INVALID FOR*01/16/2017 Nasal polyposis [J33.9] INVALID FOR* Menopause syndrome [N95.1] INVALID FOR* FDC 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 [Z79.52] INVALID FOR* HNP (herniated nucleus pulposus), lumbar [M51.2*INVALID FOR* Disposition: Return if symptoms worsen or fail to improve. Follow-up and Disposition History Recorded Encounter Status:Closed by COLTON NAQVI MD on 03/25/18 ABS EOSIN Collected: 03/17/2018 Status: F Source: [place] 11:55 AM [facility] REPOSITORY TYPE CODE TESTS RESULT OUT OF REFERENCE UNITS RANGE LAB ABEOS <0.46 K/uL High Abs Eosin 2.67 Performed By: #### ABEOS, IGE #### [facility] [employer] [address] [place] [id number] IGE Collected: 03/17/2018 Status: F Source: [place] 11:55 AM [facility] [place] REPOSITORY TYPE CODE TESTS RESULT OUT OF RANGE REFERENCE UNITS LAB IGE <114 kU/L IgE 44.3 Performed By: #### ABEOS, IGE #### [facility] [employer] [address] [place], [place] [address] PROGRESS Observed: 03/17/2018 Status: COMPLETED Source: [place] 9:42 AM [facility] REPOSITORY HNO ID: [id number] Author: Yesica Goddard Service: (none) Author Type: Physician Type: Progress Notes Filed: 03/17/2018 10:56 AM Note Text: [facility] [place] Consultation Note, 03/17/2018: Introduction: The patient is seen in consultation today for evaluation of asthma. This consultation is requested by Lew Verduzco MD. A copy of this encounter will be made available as a report via [employer] electronic medical record. HPI: Asthma and allergies diagnosed as a young adult. Allergy testing summer 2017 at [facility]. Last hospitalized 01/2018, multiple ED visits prior. Previously Alba Maciel MD had provided Medrol 8 mg to use as needed for asthma flares; since stopped by MD over concern for bone health. Had been on Advair Diskus, stopped because of mouth sores and It didn't do much. No Symbicort, Dulera, Breo. When well controlled, not short of breath at rest. Notes exertional dyspnea with housework, making bed, bending over and lifting. Most days notes wheezing, not completely relieved by inhaled bronchodilator. Coughs daily, almost always productive yellow-white sputum, no hemoptysis; not worse time of day, or by position, frequently wakens from sleep. Symptoms triggers include: exertion, dust, weather extremes, stress, respiratory infections, smoke exposure, aerosols/fumes/colognes. [place] Basement dehumidifier. Laundry in basement. Gas forced air heat. Central A/C. Bedroom keyshawn is wall to wall carpet. 1 cat and 1 dog in home. Dog is allowed in bed. 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 No birding. No spelunking. 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 No sandblasting. No asbestos exposure. No work in manufacturing or processing of adhesives, plastics, wood products. 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 No sustained Rx with Amiodarone, Nitrofurantoin, Methotrexate, cancer chemotherapy, external beam radiation therapy. 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 - Menopause syndrome 01/19/2005 - Myalgia and myositis, unspecified - Pure hypercholesterolemia - Serrated adenoma of colon 07/29/2014 - Symptomatic menopausal or female climacteric states - Unspecified asthma(493.90) - Unspecified sinusitis (chronic) 06/21/2008 PAST SURGICAL HISTORY Procedure Laterality Date - COLONOSCOP W/ OR W/O [facility] SPEC 04/24/2001 Colonoscopy - COLONOSCOP W/ OR W/O [facility] SPEC 06/16/2013 Colonoscopy - COLONOSCOP W/ OR W/O [facility] SPEC 03/10/2014 Colonoscopy - COLONOSCOP W/ OR W/O [facility] SPEC 03/10/15 Colonoscopy - EGD W/O OR W/BRUSH/WASH 04/24/2001 EGD - EGD W/O OR W/BRUSH/WASH 07/11/2009 EGD - EXCISION NOSE POLYP(S),SIMPLE 2007 Nasal polypectomy, Dr. Mcclelland - LAP COLECTMY W/ILEUM/ILEOCOL 07-16-14 - PAST SURGICAL HISTORY OF 2013 left breast biopsy- benign - REMOVAL GALLBLADDER 1998 Cholecystectomy - REMV CATARACT EXTRACAP,INSERT LENS 10/10-2013 Cataract Extraction with PC IOL - REPAIR OF NASAL SEPTUM 2006 Septoplasty - SINUS SURGERY PROCEDURE Bilateral 04/02/2017 sinonasal polypectomy, revision maxillary antrostomy, total ethmoidectomy, sphenoidotomy - TOTAL ABDOM HYSTERECTOMY 1992 Hysterectomy, OPAL BSO FAMILY HISTORY Problem Relation Age of Onset - Emphysema Mother diabetic - Heart Mother Blockage and she needs a bypass, but her COPD prevents - Emphysema Father - Heart Father - Cancer Maternal Grandmother lung - Colon Cancer Maternal Aunt - COPD Maternal Uncle - Coronary Artery Disease Paternal Aunt - Breast Cancer Other mothers side (cousin) - Cancer Maternal Uncle lung Social History Marital status: Single Spouse name: Years of education: Number of children: 0 Occupational History Occupation Employer Comment [employer] Social History Main Topics Smoking status: Never Smoker Smokeless tobacco: Never Used Alcohol use: No Drug use: No Sexual activity: No Comment: single Immunization History Administered Date(s) Administered Pneumovax 04/08/2006 TD Adult 03/30/2015 Tdap (Age 7+) 03/09/2008 MEDICATIONS and ALLERGIES: Reviewed, updated and reconciled with the patient today, as noted in the medication and allergy sections of the encounter. ROS: Reviewed with patient, confirmed as documented by Ivonne Jett LPN. TO PHYSICAL EXAMINATION: BP 118/62 Pulse 100 Resp 15 Wt 91 lb (41.3kg) SpO2 96% Gen: Paroxysmal coughing and mild respiratory distress. Cooperative with examination. ENT: Sclerae clear. Pharynx clear. Resp: No stridor, accessory respiratory muscle use, supra- sternal or intercostal retractions. No crackles. Bilateral inspiratory and expiratory wheezes. CV: Regular rythm. Heart tones normal. Radial pulses normal. Abd: Not distended. MSK: No kyphoscoliosis, joint deformities of the extremities. Ext: Warm and well perfused. No clubbing, cyanosis, edema, sclerodactyly, Raynaud's. Skin: No rash, eczema, urticaria, telangiectasia. Lymph: No adenopathy in neck, supra-clavicular fossae. Endo: No goiter. No exophthalmos, onycholysis. Neuro: Mental status normal. Affect flat. No tremor. DATA REVIEW: PFT 01/27/2018 Spirometry ? Pre ? Pre ? Post ?Post ?Post ?Ref ? ? ?Martita ?% Ref ? ? ? Martita ?% Ref ? ? ? % Chg FVC ?Liters ? ? ?2.98 ?2.64 ?89 ?2.75 ?92 ?4 FEV1 ? ? ? Liters ? ? ?2.32 ?2.14 ?92 ?2.34 ?101 ? 9 FEV1/FVC ? % ? 79 ?81 ?85 Lung Volumes TLC ?Liters ? ? ?4.55 ?4.85 ?107 RV ? Liters ? ? ?1.76 ?2.21 ?126 RV/TLC ? ? % ? 38 ?46 Diffusing Capacity DLCO ? ? ? 20.6 ?14.0 ?68 DLCO/VA ?4.65 ? ? ? 3.55 ?76 CT sinus report, [facility], 12/12/2016: Frontal sinuses: Normal aeration without mucosal inflammatory disease. Ethmoid sinuses: Opacification of the ethmoid sinuses with thinning of the bony septations. Maxillary sinuses: Opacification of the maxillary sinuses worse on the left. Sphenoid sinuses: Mucosal thickening in the sphenoid sinus. Compromise of the ostiomeatal complexes worse on the right side due to soft tissue density. There is soft tissue opacification of both nasal fossa suggestive of polyposis. The visualized osseous structures are normal. The visualized bilateral orbital contents are normal. CXR report [facility] 01/07/2018: Normal x-ray examination of the chest. I have NOT personally and independently reviewed these CXR and sinus images. TO IMPRESSION/RECOMMEND: Severe persistent asthma, not well controlled; contributions from allergic disease, chronic sinusitis, gastroesophageal reflux, and lack od maintenance inhaled corticosteroid Rx. This is not COPD. - I discussed the pathophysiology of asthma, NIH guidelines for evaluation and management, and mechanisms of action and side effects of medical therapy (ICS, bronchodilators) with the patient. - Evaluate with sinus CT, IgE total and total eosinophil count. Review recent allergy testing. - Medrol 8 mg, 4 tabs daily daily for 3 days, 3 tabs daily for 3 days, 2 tabs daily for 3 days, 1 tab daily for 3 days. - Initiate daily anti-inflammatory Rx with Symbicort 160/4.5, 2 inhalations twice daily every day. - Continue Albuterol (Ventolin) HFA inhaler, 2 inhalations as needed for rescue relief of shortness of breath or wheezing, up to 4 times daily. - Enhance delivery of inhaled Symbicort and Ventolin with Aerochamber as demonstrated today. - On hand Rx for oral Medrol for symptoms that break through maintenance therapy with inhaled Symbicort and Singulair. - Re-assess symptoms and lung function in 1 month. I addressed the questions of the patient and her spouse, and they expressed understanding and acceptance of my answers. Yesica Goddard MD, [facility] [address] [place] [address] P: [phone] F: [phone] [email or web address] CNOV Observed: 03/17/2018 Status: COMPLETED Source: [place] 9:30 AM [facility] REPOSITORY Office Visit (PULMWS) CHEY JEFFERS ([id number]) 1960 F Date Time Provider Department 03/17/18 9:30 AM YESICA GODDARD During your visit today, we recorded the following information about you: Pulse Respiration Blood pressure Weight 100/minute 15/minute 118/62 41.3 kg Ivonne Jett LPN 03/17/2018 9:48 AM Attested Attestation signed by Yesica Goddard at 03/17/2018 9:54 AM Reviewed with patient, confirmed as documented by Ivonne Jett LPN. TO ROS: General: Generally feels I think I have a sinus infection causing my cough. Recently completed a course of Levaquin. Appetite fair. Eyes, Ears, nose, throat: notes post nasal drip. notes rhinorrhea. notes purulent nasal discharge. denies epistaxis. denies hoarseness. Vision stable. Cardiac: denies angina, denies edema, notes orthopnea. GI: denies heartburn. denies dysphagia. denies diarrhea. 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 denies hesitancy. denies nocturia. Menses: post menopausal Musculoskeletal: notes pain. Neuro: notes headache, denies focal weakness. denies tremor. Skin: denies rash. Otherwise negative. Yesica Goddard MD 03/17/2018 10:56 AM Signed [facility] Consultation Note, 03/17/2018: Introduction: The patient is seen in consultation today for evaluation of asthma. This consultation is requested by Lew Verduzco MD. A copy of this encounter will be made available as a report via [employer] electronic medical record. HPI: Asthma and allergies diagnosed as a young adult. Allergy testing summer 2017 at [facility]. Last hospitalized 01/2018, multiple ED visits prior. Previously Alba Maciel MD had provided Medrol 8 mg to use as needed for asthma flares; since stopped by MD over concern for bone health. Had been on Advair Diskus, stopped because of mouth sores and It didn't do much. No Symbicort, Dulera, Breo. When well controlled, not short of breath at rest. Notes exertional dyspnea with housework, making bed, bending over and lifting. Most days notes wheezing, not completely relieved by inhaled bronchodilator. Coughs daily, almost always productive yellow-white sputum, no hemoptysis; not worse time of day, or by position, frequently wakens from sleep. Symptoms triggers include: exertion, dust, weather extremes, stress, respiratory infections, smoke exposure, aerosols/fumes/colognes. [place] Basement dehumidifier. Laundry in basement. Gas forced air heat. Central A/C. Bedroom keyshawn is wall to wall carpet. 1 cat and 1 dog in home. Dog is allowed in bed. 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 No birding. No spelunking. 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 No sandblasting. No asbestos exposure. No work in manufacturing or processing of adhesives, plastics, wood products. 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 No sustained Rx with Amiodarone, Nitrofurantoin, Methotrexate, cancer chemotherapy, external beam radiation therapy. 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 - Menopause syndrome 01/19/2005 - Myalgia and myositis, unspecified - Pure hypercholesterolemia - Serrated adenoma of colon 07/29/2014 - Symptomatic menopausal or female climacteric states - Unspecified asthma(493.90) - Unspecified sinusitis (chronic) 06/21/2008 PAST SURGICAL HISTORY Procedure Laterality Date - COLONOSCOP W/ OR W/O BRSH SPEC 04/24/2001 Colonoscopy - COLONOSCOP W/ OR W/O BRSH SPEC 06/16/2013 Colonoscopy - COLONOSCOP W/ OR W/O BRSH SPEC 03/10/2014 Colonoscopy - COLONOSCOP W/ OR W/O BRSH SPEC 03/10/15 Colonoscopy - EGD W/O OR W/BRUSH/WASH 04/24/2001 EGD - EGD W/O OR W/BRUSH/WASH 07/11/2009 EGD - EXCISION NOSE POLYP(S),SIMPLE 2007 Nasal polypectomy, Dr. Mcclelland - LAP COLECTMY W/ILEUM/ILEOCOL 07-16-14 - PAST SURGICAL HISTORY OF 2013 left breast biopsy- benign - REMOVAL GALLBLADDER 1998 Cholecystectomy - REMV CATARACT EXTRACAP,INSERT LENS Cataract Extraction with PC IOL - REPAIR OF NASAL SEPTUM 2006 Septoplasty - SINUS SURGERY PROCEDURE Bilateral 04/02/2017 sinonasal polypectomy, revision maxillary antrostomy, total ethmoidectomy, sphenoidotomy - TOTAL ABDOM HYSTERECTOMY 1992 Hysterectomy, OPAL BSO FAMILY HISTORY Problem Relation Age of Onset - Emphysema Mother diabetic - Heart Mother Blockage and she needs a bypass, but her COPD prevents - Emphysema Father - Heart Father - Cancer Maternal Grandmother lung - Colon Cancer Maternal Aunt - COPD Maternal Uncle - Coronary Artery Disease Paternal Aunt - Breast Cancer Other mothers side (cousin) - Cancer Maternal Uncle lung Social History Marital status: Single Spouse name: Years of education: Number of children: 0 Occupational History Occupation Employer Comment [employer] Social History Main Topics Smoking status: Never Smoker Smokeless tobacco: Never Used Alcohol use: No Drug use: No Sexual activity: No Comment: single Immunization History Administered Date(s) Administered Pneumovax 04/08/2006 TD Adult 03/30/2015 Tdap (Age 7+) 03/09/2008 MEDICATIONS and ALLERGIES: Reviewed, updated and reconciled with the patient today, as noted in the medication and allergy sections of the encounter. ROS: Reviewed with patient, confirmed as documented by Ivonne Jett LPN. TO PHYSICAL EXAMINATION: BP 118/62 Pulse 100 Resp 15 Wt 91 lb (41.3kg) SpO2 96% Gen: Paroxysmal coughing and mild respiratory distress. Cooperative with examination. ENT: Sclerae clear. Pharynx clear. Resp: No stridor, accessory respiratory muscle use, supra- sternal or intercostal retractions. No crackles. Bilateral inspiratory and expiratory wheezes. CV: Regular rythm. Heart tones normal. Radial pulses normal. Abd: Not distended. MSK: No kyphoscoliosis, joint deformities of the extremities. Ext: Warm and well perfused. No clubbing, cyanosis, edema, sclerodactyly, Raynaud's. Skin: No rash, eczema, urticaria, telangiectasia. Lymph: No adenopathy in neck, supra-clavicular fossae. Endo: No goiter. No exophthalmos, onycholysis. Neuro: Mental status normal. Affect flat. No tremor. DATA REVIEW: PFT 01/27/2018 Spirometry ? Pre ? Pre ? Post ?Post ?Post ?Ref ? ? ?Martita ?% Ref ? ? ? Martita ?% Ref ? ? ? % Chg FVC ?Liters ? ? ?2.98 ?2.64 ?89 ?2.75 ?92 ?4 FEV1 ? ? ? Liters ? ? ?2.32 ?2.14 ?92 ?2.34 ?101 ? 9 FEV1/FVC ? % ? 79 ?81 ?85 Lung Volumes TLC ?Liters ? ? ?4.55 ?4.85 ?107 RV ? Liters ? ? ?1.76 ?2.21 ?126 RV/TLC ? ? % ? 38 ?46 Diffusing Capacity DLCO ? ? ? 20.6 ?14.0 ?68 DLCO/VA ?4.65 ? ? ? 3.55 ?76 CT sinus report, [facility], 12/12/2016: Frontal sinuses: Normal aeration without mucosal inflammatory disease. Ethmoid sinuses: Opacification of the ethmoid sinuses with thinning of the bony septations. Maxillary sinuses: Opacification of the maxillary sinuses worse on the left. Sphenoid sinuses: Mucosal thickening in the sphenoid sinus. Compromise of the ostiomeatal complexes worse on the right side due to soft tissue density. There is soft tissue opacification of both nasal fossa suggestive of polyposis. The visualized osseous structures are normal. The visualized bilateral orbital contents are normal. CXR report [facility] 01/07/2018: Normal x-ray examination of the chest. I have NOT personally and independently reviewed these CXR and sinus images. TO IMPRESSION/RECOMMEND: Severe persistent asthma, not well controlled; contributions from allergic disease, chronic sinusitis, gastroesophageal reflux, and lack od maintenance inhaled corticosteroid Rx. This is not COPD. - I discussed the pathophysiology of asthma, NIH guidelines for evaluation and management, and mechanisms of action and side effects of medical therapy (ICS, bronchodilators) with the patient. - Evaluate with sinus CT, IgE total and total eosinophil count. Review recent allergy testing. - Medrol 8 mg, 4 tabs daily daily for 3 days, 3 tabs daily for 3 days, 2 tabs daily for 3 days, 1 tab daily for 3 days. - Initiate daily anti-inflammatory Rx with Symbicort 160/4.5, 2 inhalations twice daily every day. - Continue Albuterol (Ventolin) HFA inhaler, 2 inhalations as needed for rescue relief of shortness of breath or wheezing, up to 4 times daily. - Enhance delivery of inhaled Symbicort and Ventolin with Aerochamber as demonstrated today. - On hand Rx for oral Medrol for symptoms that break through maintenance therapy with inhaled Symbicort and Singulair. - Re-assess symptoms and lung function in 1 month. I addressed the questions of the patient and her spouse, and they expressed understanding and acceptance of my answers. Yesica Goddard MD, [facility] [place] [address] P: [phone] F: [phone] [email or web address] Yesica Goddard MD 03/17/2018 10:42 AM Signed IMPRESSION/RECOMMEND: Severe persistent asthma, not well controlled; contributions from allergic disease, chronic sinusitis, gastroesophageal reflux. - I discussed the pathophysiology of asthma, NIH guidelines for evaluation and management, and mechanisms of action and side effects of medical therapy (ICS, bronchodilators) with the patient. - Evaluate with sinus CT, IgE total and total eosinophil count. Review recent allergy testing. - Initiate daily anti-inflammatory Rx with Symbicort 160/4.5, 2 inhalations twice daily every day. - Continue Albuterol (Ventolin) HFA inhaler, 2 inhalations as needed for rescue relief of shortness of breath or wheezing, up to 4 times daily. - Enhance delivery of inhaled Symbicort and Ventolin with Aerochamber as demonstrated today. - On hand Rx for oral Medrol for symptoms that break through maintenance therapy with inhaled Symbicort and Singulair. - Re-assess symptoms and lung function in 1 month. Yesica Goddard MD, [facility] [place] [address] P: [phone] F: [phone] [email or web address] Referring Provider: LEW VERDUZCO [[id number]] Allergies As of Date: 03/17/2018 Noted Allergy Reaction CODEINE 02/15/2005 4 - Hives VICODIN (HYDROCODONE-ACETAMINOPHE*02/15/2005 4 - Hives DEMEROL (MEPERIDINE (PF)) 01/03/2006 2 - Rash BACTRIM (SULFAMETHOXAZOLE-TRIMETH*07/25/2005 Comments: uncertain CELEXA (CITALOPRAM HYDROBROMIDE) 07/25/2005 8 - GI Upset DOXY (DOXYCYCLINE) 06/04/2005 Comments: rash and asthma DUREZOL (DIFLUPREDNATE) 03/04/2014 2 - Rash Environmental allergies [Other] 02/25/2006 Comments: Dogs, molds IBUPROFEN 07/25/2005 12 - Shortness of Breath LEXAPRO (ESCITALOPRAM OXALATE) 07/25/2005 8 - GI Upset LYRICA (PREGABALIN) 04/10/2011 1 - Mental Status Change Comments: dizzy MAPROTILINE 05/16/2009 9 - Itching MUCOMYST (ACETYLCYSTEINE) 10/30/2012 3 - Cough Comments: increase wheezing OXYCODONE 01/17/2011 12 - Shortness of Breath PENICILLINS 01/09/2005 Comments: rash PREDNISONE 07/30/2006 9 - Itching TORADOL (KETOROLAC TROMETHAMINE) 04/06/2011 7 - Swelling TYLENOL (ACETAMINOPHEN) 01/02/2006 5 - Intolerance Comments: asthma ULTRAM (TRAMADOL HCL) 07/25/2005 14 - Other: See Comments Comments: chest pains VANCOMYCIN 01/21/2015 14 - Other: See Comments Comments: Wheezing after taking, legs swollen and tongue swelling and scratchy neck VENLAFAXINE 07/09/2011 8 - GI Upset ZITHROMAX (AZITHROMYCIN) 01/19/2005 9 - Itching MIRTAZAPINE 11/17/2013 14 - Other: See Comments Comments: Hand shakes. Date Reviewed: 03/17/2018 Reviewed by: Yesica Goddard - Fully Assessed Reason for Visit: Asthma [11] Primary Visit Diagnosis:Severe persistent asthma with acute exacerbation [J45.51] Other Visit Diagnoses:Nasal polyposis [J33.9] Chronic rhinitis [J31.0] Non-seasonal allergic rhinitis, unspecified trigger [J30.89] Other polyp of sinus [J33.8] Chronic pansinusitis [J32.4] Order(s):methylPREDNISolone (MEDROL) 8 mg tablet4 tabs daily for 3 days, 3 tabs daily for 3 days, 2 tabs daily for 3 days, 1 tab daily for 3 days.Disp: 30 tabletRfl: 0 budesonide-formoterol (SYMBICORT) 160-4.5 mcg/actuation inhalerInhale 2 Puffs as instructed twice daily.Disp: 1 InhalerRfl: 3 IGE BLD [SQIGE] Order #: [id number] FUTURE EOSINOPHIL ABS COUNT [SQABEOS] Order #: [id number] FUTURE CT SINUS WO IVCON [[id number]] Order #: [id number] FUTURE SPIROMETRY BASELINE ONLY [7181001] Order #: [id number] FUTURE NITRIC OXIDE, EXHALED [[id number]] Order #: [id number] FUTURE Prescriptions as of 03/17/2018 Sig: LANSOPRAZOLE 30 MG CAPSULE,DE* take 1 capsule by mouth once * IPRATROPIUM-ALBUTEROL 0.5 MG-* Inhale 3 mL as instructed alissa* SUCRALFATE 1 GRAM TABLET Take 1 tablet by mouth before* FENTANYL 25 MCG/HR TRANSDERMA* Apply 1 Patch as directed alissa* MONTELUKAST 10 MG TABLET take 1 tablet by mouth at bed* ESTRADIOL 0.5 MG TABLET take 1 tablet by mouth once d* RANITIDINE 150 MG TABLET take 1 tablet by mouth twice * CLONAZEPAM 0.5 MG TABLET Take 1 tablet by mouth twice * IMIPRAMINE 25 MG TABLET Take 2 tablets by mouth daily* ALBUTEROL SULFATE HFA 90 MCG/* Inhale 2 Puffs as instructed * SIMVASTATIN 40 MG TABLET Take 1 tablet by mouth daily * DICYCLOMINE 10 MG CAPSULE Take 1 capsule by mouth four * Patient taking differently: Take 10 mg by mouth three berny* FLUTICASONE 50 MCG/ACTUATION * Use in the nose. SHAKE WELL * IMODIUM ORAL Take by mouth as needed. CHOLECALCIFEROL (VITAMIN D3) * Take 1,000 Units by mouth onc* FEXOFENADINE 180 MG TABLET Take one(1) tablet daily. 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*INVALID FOR*02/25/2015 ANKYLOSING SPONDYLITIS [M45.9] INVALID FOR* CHRONIC RHINITIS [J31.0] INVALID FOR* Sinusitis, chronic [J32.9] INVALID FOR* Intrinsic asthma, unspecified [J45.909] INVALID FOR*08/31/2016 ESOPHAGEAL REFLUX [K21.9] INVALID FOR* Acute gastritis without mention of hemorrhage [*INVALID FOR*02/25/2015 Fibromyalgia [M79.7] INVALID FOR* COPD (chronic obstructive pulmonary disease) (H*INVALID FOR*07/18/2017 Calcaneal spur [M77.30] INVALID FOR*02/25/2015 Plantar fasciitis [M72.2] INVALID FOR*02/25/2015 HNP (herniated nucleus pulposus), lumbar [M51.2*INVALID FOR*07/11/2016 Myofascial muscle pain [M79.18] INVALID FOR*07/11/2016 DDD (degenerative disc disease), lumbar [M51.36]INVALID FOR* Back pain [M54.9] INVALID FOR*07/11/2016 Osteoporosis [M81.0] INVALID FOR* Abnormal ultrasound of breast [R92.8] INVALID FOR*02/25/2015 Colon polyp [K63.5] INVALID FOR*10/16/2016 Serrated adenoma of colon [D12.6] INVALID FOR* Stress and adjustment reaction [F43.29] INVALID FOR*07/11/2016 Enterocolitis due to Clostridium difficile [A04*INVALID FOR*07/17/2016 Kidney stone on left side [N20.0] INVALID FOR*08/31/2016 Colonic polyp [K63.5] INVALID FOR*03/10/2015 Bilateral renal cysts [N28.1] INVALID FOR*07/11/2016 Abnormal toxicological findings [R89.2] INVALID FOR*01/16/2017 Nasal polyposis [J33.9] INVALID FOR* Menopause syndrome [N95.1] 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 - I discussed the pathophysiology of asthma, NIH guidelines for evaluation and management, and mechanisms of action and side effects of medical therapy (ICS, bronchodilators) with the patient. - Evaluate with sinus CT, IgE total and total eosinophil count. Review recent allergy testing. - Initiate daily anti-inflammatory Rx with Symbicort 160/4.5, 2 inhalations twice daily every day. - Continue Albuterol (Ventolin) HFA inhaler, 2 inhalations as needed for rescue relief of shortness of breath or wheezing, up to 4 times daily. - Enhance delivery of inhaled Symbicort and Ventolin with Aerochamber as demonstrated today. - On hand Rx for oral Medrol for symptoms that break through maintenance therapy with inhaled Symbicort and Singulair. - Re-assess symptoms and lung function in 1 month. Yesica Goddard MD, [facility] [address] [place] [address] P: [phone] F: [phone] Visit Notes: >> Ivonne Jett MICHELLE SatMar 17, 2018 9:34 AM Status: Attested ROS: General: Generally feels I think I have a sinus infection causing my cough. Recently completed a course of Levaquin. Appetite fair. Eyes, Ears, nose, throat: notes post nasal drip. notes rhinorrhea. notes purulent nasal discharge. denies epistaxis. denies hoarseness. Vision stable. Cardiac: denies angina, denies edema, notes orthopnea. GI: denies heartburn. denies dysphagia. denies diarrhea. 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 denies hesitancy. denies nocturia. Menses: post menopausal Musculoskeletal: notes pain. Neuro: notes headache, denies focal weakness. denies tremor. Skin: denies rash. Otherwise negative. Prescriptions ordered this encounter Disp Refills Start End METHYLPREDNISOLONE 8 MG TABLET 30 t* 0 03/17/2018 Si tabs daily for 3 days, 3 tabs daily for 3 days, 2 tabs daily for 3 days, 1 tab daily for 3 days. BUDESONIDE-FORMOTEROL HFA 160 MCG-4.* 1 In* 3 03/17/2018 Route: INHALATION Sig: Inhale 2 Puffs as instructed twice daily. Medications Discontinued During This Encounter fentaNYL (DURAGESIC) 25 mcg/hr 10 P* 0 01/28/2018 03/17/2018 Class: Print RX Route: TRANSDERMAL Sig: Apply 1 Patch as directed every 72 hours for 30 days. Earliest Fill Date: 01/28/18 Disc: Course of therapy completed fentaNYL (DURAGESIC) 25 mcg/hr 10 P* 0 02/28/2018 03/17/2018 Class: Print RX Route: TRANSDERMAL Sig: Apply 1 Patch as directed every 72 hours for 30 days. Earliest Fill Date: 02/28/18 Disc: Course of therapy completed Follow Up: Discussed this visit Disposition: Return in about 1 month (around 04/16/2018). Follow-up and Disposition History Recorded Encounter Status:Closed by YESICA GODDARD MD on 03/17/18 Observed: 02/14/2018 Status: F Source: [place] CULTURE, NOSE 2:20 PM [facility] REPOSITORY Gram Stain Gram Stain 1+ White Blood Cells Rare Gram negative rods Nasoph. Cult ORGANISM 1: Pseudomonas spp Amount Growth Rare Pseudomonas spp: REACTION Cefepime $ 2 S Ceftazidime *NF 4 S Gentamicin $ 2 S Imipenem *NF 2 S Levofloxacin $ 1 S Piperacillin/Tazobactam $$ 8 S Tobramycin $ <=1 S (NF) indicates non-formulary drug at [facility]. Approval by Infectious Disease Specialist required before non-formulary drugs may be ordered and/or dispensed. Performed By: #### [id number] #### [facility], [address] CNOV Observed: 01/31/2018 Status: COMPLETED Source: [place] 7:40 AM [facility] REPOSITORY Office Visit (GASTWC) CHEY JEFFERS ([id number]) 1960 F Date Time Provider Department 01/31/18 7:40 AM KAHRI ALVARADO (KEYA) [facility] During your visit today, we recorded the following information about you: Pulse Blood pressure Weight Height 109/minute 107/64 42.5 kg 1.524 m Khari Alvarado RN [facility].ANESTHESIOLOGIST AND CRITICAL CARE 01/31/2018 8:32 AM Signed Chey Jeffers a 57 year old female who is referred by Dr. Verduzco for surveillance colonoscopy. The patient reports a family history of colon cancer in that a maternal aunt had the disease. The patient was noted to have a sessile serrated polyp on pathology following a colonoscopy by Dr. Wolfe in June 2013. It was recommended to patient to return in 6-9 months to have a follow-up colonoscopy. Dr. Bains preformed colonoscopy on 03/10/2014 demonstrating one 30 mm polyp in the mid ascending colon. Pathology returned as a hyperplastic polyp. Surgery was recommended due to the size of the area. PROCEDURE: Laparoscopic colectomy ileocecal by Dr. Luis Conroy on 07/16/14. The patient was seen by Dr. Bains for colonoscopy 03/10/15. The procedure report has been reviewed and findings as follows: Impression: ? ? ? - One 5 mm polyp in the rectum. Resected and retrieved. FINAL DIAGNOSIS Rectum, biopsy - Fragments of hyperplastic polyp. The patient was seen by Dr. Wolfe for upper endoscopy 07/11/09. The procedure report has been reviewed and findings as follows: Findings: ? Esophagus: The Z-line is slightly erratic but without erosions or ulcerations. No evidence of Shell's mucosa. No bxs were taken. ? Stomach: Erythematous mucosa was found in the antrum. No evidence of ulcers in the stomach. A biopsy was taken. The specimen was collected for a urease test. Otherwise, the stomach appeared to be normal. ?Duodenum: The duodenum appeared to be normal. The patient remains on Prevacid and Carafate. Presenting complaint: The patient denies change in bowel habits or rectal bleeding. Having a bowel movement anywhere from none in a day, up to several times a day. She reminds me that she has irritable bowel. She might have several bowel movements if she's upset, or depending on what she has eaten. She reports stabbing pain in her lower abdomen when her irritable bowel occurs. No blood or black stool. She takes dicyclomine as needed. The patient has been on Prevacid for years. She also takes ranitidine and sucralfate. She reports nausea at times. Also, pill dysphagia stating that the sensation can last an hour or more. REVIEW OF SYSTEMS: GENERAL: No weight loss, malaise or fevers RESPIRATORY: Severe COPD CARDIOVASCULAR: Negative for chest pain, leg swelling, hypertension, CHF or palpitations GI: The patient states that her appetite has been adequate. She so,etimes get hungry. There has been some nausea, no vomiting. She admits to dysphagia and denies odynophagia. There has not been indigestion or heartburn. There has not been regurgitation. Bowel habits have been irregular. There has been diarrhea. There has not been constipation. The patient denies rectal bleeding. There has not been melena. Intermittent abdominal pain that is located in the lower abodmen, related to the IBS episodes.. PSYCH: Positive for anxiety and depression. MUSCULOSKELETAL: Fibromyalgia and chronic back pain from ankylosing spondylitis - on Fentanyl patch HEMATOLOGY/LYMPHOLOGY Negative for prolonged bleeding, bruising easily or swollen nodes ENDOCRINE: Negative for thyroid or diabetes. NEURO: History of migraine headaches All other reviewed and negative other than HPI. 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 - Menopause syndrome 01/19/2005 - Myalgia and myositis, unspecified - Pure hypercholesterolemia - Serrated adenoma of colon 07/29/2014 - Symptomatic menopausal or female climacteric states - Unspecified asthma(493.90) - Unspecified sinusitis (chronic) 06/21/2008 PAST SURGICAL HISTORY Procedure Laterality Date - COLONOSCOP W/ OR W/O BRS SPEC 04/24/2001 Colonoscopy - COLONOSCOP W/ OR W/O BRS SPEC 06/16/2013 Colonoscopy - COLONOSCOP W/ OR W/O BRS SPEC 03/10/2014 Colonoscopy - COLONOSCOP W/ OR W/O BRS SPEC 03/10/15 Colonoscopy - EGD W/O OR W/BRUSH/WASH 04/24/2001 EGD - EGD W/O OR W/BRUSH/WASH 07/11/2009 EGD - EXCISION NOSE POLYP(S),SIMPLE 2007 Nasal polypectomy, Dr. Mcclelland - LAP COLECTMY W/ILEUM/ILEOCOL 07-16-14 - PAST SURGICAL HISTORY OF 2013 left breast biopsy- benign - REMOVAL GALLBLADDER 1998 Cholecystectomy - REMV CATARACT EXTRACAP,INSERT LENS 10/10-2013 Cataract Extraction with PC IOL - REPAIR OF NASAL SEPTUM 2006 Septoplasty - SINUS SURGERY PROCEDURE Bilateral 04/02/2017 sinonasal polypectomy, revision maxillary antrostomy, total ethmoidectomy, sphenoidotomy - TOTAL ABDOM HYSTERECTOMY 1992 Hysterectomy, OPAL BSO FAMILY HISTORY Problem Relation Age of Onset - Cancer Maternal Grandmother lung - Colon Cancer Maternal Aunt - COPD Maternal Uncle - Coronary Artery Disease Paternal Aunt - Breast Cancer Other mothers side (cousin) - Cancer Maternal Uncle lung - Emphysema Father - Heart Father - Emphysema Mother diabetic - Heart Mother Blockage and she needs a bypass, but her COPD prevents Current Outpatient Prescriptions: fentaNYL (DURAGESIC) 25 mcg/hr Apply 1 Patch as directed every 72 hours for 30 days.Earliest Fill Date: 01/28/18 Disp: 10 Patch Rfl: 0 [START ON 02/28/2018] fentaNYL (DURAGESIC) 25 mcg/hr Apply 1 Patch as directed every 72 hours for 30 days.Earliest Fill Date: 02/28/18 Disp: 10 Patch Rfl: 0 [START ON 03/31/2018] fentaNYL (DURAGESIC) 25 mcg/hr Apply 1 Patch as directed every 72 hours for 30 days.Earliest Fill Date: 03/31/18 Disp: 10 Patch Rfl: 0 ipratropium-albuterol (DUONEB) 0.5 mg-3 mg(2.5 mg base)/3 mL nebu Inhale 3 mL as instructed every 6 hours as needed. Disp: 30 Vial Rfl: 5 montelukast (SINGULAIR) 10 mg tablet take 1 tablet by mouth at bedtime Disp: 90 tablet Rfl: 3 Estradiol (ESTRACE) 0.5 mg tablet take 1 tablet by mouth once daily Disp: 90 tablet Rfl: 1 ranitidine (ZANTAC) 150 mg tablet take 1 tablet by mouth twice a day Disp: 180 tablet Rfl: 3 clonazePAM (KLONOPIN) 0.5 mg tablet Take 1 tablet by mouth twice daily for 180 days. Disp: 60 tablet Rfl: 5 imipramine HCl (TOFRANIL) 25 mg tablet Take 2 tablets by mouth daily at bedtime. Disp: 180 tablet Rfl: 1 albuterol HFA (VENTOLIN HFA) 90 mcg/actuation inhaler Inhale 2 Puffs as instructed every 4 hours as needed for Wheezing/Shortness of Breath. Disp: 1 Inhaler Rfl: 2 sucralfate (CARAFATE) 1 gram tablet Take 1 tablet by mouth before meals and at bedtime. Disp: 360 tablet Rfl: 1 simvastatin (ZOCOR) 40 mg tablet Take 1 tablet by mouth daily at bedtime. Disp: 90 tablet Rfl: 3 dicyclomine (BENTYL) 10 mg capsule Take 1 capsule by mouth four times daily. (Patient taking differently: Take 10 mg by mouth three times daily. ) Disp: 360 capsule Rfl: 4 lansoprazole (PREVACID) 30 mg capsule take 1 capsule by mouth once daily Disp: 30 capsule Rfl: 11 fluticasone (FLONASE) 50 mcg/actuation nasal spray Use in the nose. SHAKE WELL before using. Blow nose prior to use. Prime pump before using. Disp: Rfl: LOPERAMIDE HCL (IMODIUM ORAL) Take by mouth as needed. Disp: Rfl: Cholecalciferol, Vitamin D3, (VITAMIN D) 1,000 unit cap Take 1,000 Units by mouth once daily. Disp: Rfl: fexofenadine (NAN) 180 mg ORAL tablet Take one(1) tablet daily. Disp: 90 Tab Rfl: 3 vit e acetate/gly/dimeth/water(CETAPHIL MOISTURIZING LOTION) apply twice daily Disp: 1 Rfl: 0 No current facility-administered medications for this visit. SOCIAL HISTORY: Patient is single. She has never smoked. Chey reports her alcohol use as never. PHYSICAL EXAMINATION: Blood pressure 107/64, pulse 109, height 152.4 cm (5'), weight 42.5 kg (93 lb 9.6 oz). General Appearance: Alert, in no acute distress. Skin: Skin color, texture, turgor normal, no suspicious rashes or lesions. Head: Normocephalic, no masses, lesions or abnormalities. Eyes: Anicteric sclera. P Oropharynx: Dentures. Lips, mucosa, and tongue normal, oropharynx normal. Neck: Supple, no adenopathy; thyroid symmetric, normal size. Lungs: Lungs clear to auscultation. No wheezing, rhonchi, rales. (she tells me she did an aerosol treatment prior to appointment) Heart: RRR without murmur. Abdomen: Abdomen soft, non-tender. Bowel sounds normal. No masses, organomegaly. Extremities: No deformities, edema, skin discoloration, clubbing or cyanosis. Peripheral Pulses: Normal. Neurologic: Gait normal. Sensation grossly intact. Impression: GERD 2)halfway use of PPI 3)dysphagia 4)history of polyps 5)IBS Plan: The patient will be scheduled for an upper endoscopy as well as a colonoscopy. She will require MAC. Preparation for the procedures, using magnesium citrate and dulcolax as the laxative, have been explained in detail. The risks, benefits, anticipated outcomes and possible complications were mentioned. I explained the procedure in understandable terms and the patient was given printed material concerning the planned procedure. The patient had the opportunity to ask questions concerning the planned procedure. The patient freely consents to the planned procedure. The patient is encouraged to call with any questions or concerns, or should there be any change in health status between now and the scheduled procedure. I have personally interviewed and examined this patient. I have read the information that the MA documented in this encounter. I spent 30 minutes in the visit, with more than 50% of the total [id number] time of the visit in counseling / coordination of care. Khari Alvarado RN APRN.JACKIE Alvarado RN APRN.JACKIE 01/31/2018 8:22 AM Addendum Please follow the provided instructions for upper endoscopy and colonoscopy. You will be using magnesium citrate and dulcolax as the laxatives during the preparation. You may start the laxative as early as 1:00 in the afternoon. Your procedure must be after due to insurance. You have requested Dr. Marcum, at [facility] (due to transportation). You will have the the deeper sedation we call MAC. The program scheduler will call you to schedule your procedure. Referring Provider: LEW VERDUZCO [[id number]] Allergies As of Date: 01/31/2018 Noted Allergy Reaction CODEINE 02/15/2005 4 - Hives VICODIN (HYDROCODONE-ACETAMINOPHE*02/15/2005 4 - Hives DEMEROL (MEPERIDINE (PF)) 01/03/2006 2 - Rash BACTRIM (SULFAMETHOXAZOLE-TRIMETH*07/25/2005 Comments: uncertain CELEXA (CITALOPRAM HYDROBROMIDE) 07/25/2005 8 - GI Upset DOXY (DOXYCYCLINE) 06/04/2005 Comments: rash and asthma DUREZOL (DIFLUPREDNATE) 03/04/2014 2 - Rash Environmental allergies [Other] 02/25/2006 Comments: Dogs, molds IBUPROFEN 07/25/2005 12 - Shortness of Breath LEXAPRO (ESCITALOPRAM OXALATE) 07/25/2005 8 - GI Upset LYRICA (PREGABALIN) 04/10/2011 1 - Mental Status Change Comments: dizzy MAPROTILINE 05/16/2009 9 - Itching MUCOMYST (ACETYLCYSTEINE) 10/30/2012 3 - Cough Comments: increase wheezing OXYCODONE 01/17/2011 12 - Shortness of Breath PENICILLINS 01/09/2005 Comments: rash PREDNISONE 07/30/2006 9 - Itching TORADOL (KETOROLAC TROMETHAMINE) 04/06/2011 7 - Swelling TYLENOL (ACETAMINOPHEN) 01/02/2006 5 - Intolerance Comments: asthma ULTRAM (TRAMADOL HCL) 07/25/2005 14 - Other: See Comments Comments: chest pains VANCOMYCIN 01/21/2015 14 - Other: See Comments Comments: Wheezing after taking, legs swollen and tongue swelling and scratchy neck VENLAFAXINE 07/09/2011 8 - GI Upset ZITHROMAX (AZITHROMYCIN) 01/19/2005 9 - Itching MIRTAZAPINE 11/17/2013 14 - Other: See Comments Comments: Hand shakes. Date Reviewed: 01/31/2018 Reviewed by: Nelida Pacheco Ma - Fully Assessed Reason for Visit: Colonoscopy Consult [Other] Primary Visit Diagnosis:Pill dysphagia [R13.10] Other Visit Diagnoses:Gastroesophageal reflux disease, esophagitis presence not specified [K21.9] History of colonic polyps [Z86.010] Order(s):EGD GEN ANES [[id number]] Order #: [id number] FUTURE COLONOSCOPY GEN ANES [[id number]] Order #: [id number] FUTURE Prescriptions as of 01/31/2018 Sig: FENTANYL 25 MCG/HR TRANSDERMA* Apply 1 Patch as directed alissa* FENTANYL 25 MCG/HR TRANSDERMA* Apply 1 Patch as directed alissa* FENTANYL 25 MCG/HR TRANSDERMA* Apply 1 Patch as directed alissa* IPRATROPIUM-ALBUTEROL 0.5 MG-* Inhale 3 mL as instructed alissa* MONTELUKAST 10 MG TABLET take 1 tablet by mouth at bed* ESTRADIOL 0.5 MG TABLET take 1 tablet by mouth once d* RANITIDINE 150 MG TABLET take 1 tablet by mouth twice * CLONAZEPAM 0.5 MG TABLET Take 1 tablet by mouth twice * IMIPRAMINE 25 MG TABLET Take 2 tablets by mouth daily* ALBUTEROL SULFATE HFA 90 MCG/* Inhale 2 Puffs as instructed * SUCRALFATE 1 GRAM TABLET Take 1 tablet by mouth before* SIMVASTATIN 40 MG TABLET Take 1 tablet by mouth daily * DICYCLOMINE 10 MG CAPSULE Take 1 capsule by mouth four * Patient taking differently: Take 10 mg by mouth three berny* LANSOPRAZOLE 30 MG CAPSULE,DE* take 1 capsule by mouth once * FLUTICASONE 50 MCG/ACTUATION * Use in the nose. SHAKE WELL * IMODIUM ORAL Take by mouth as needed. CHOLECALCIFEROL (VITAMIN D3) * Take 1,000 Units by mouth onc* FEXOFENADINE 180 MG TABLET Take one(1) tablet daily. 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*INVALID FOR*02/25/2015 ANKYLOSING SPONDYLITIS [M45.9] INVALID FOR* CHRONIC RHINITIS [J31.0] INVALID FOR* Sinusitis, chronic [J32.9] INVALID FOR* Intrinsic asthma, unspecified [J45.909] INVALID FOR*08/31/2016 ESOPHAGEAL REFLUX [K21.9] INVALID FOR* Acute gastritis without mention of hemorrhage [*INVALID FOR*02/25/2015 Fibromyalgia [M79.7] INVALID FOR* COPD (chronic obstructive pulmonary disease) (H*INVALID FOR*07/18/2017 Calcaneal spur [M77.30] INVALID FOR*02/25/2015 Plantar fasciitis [M72.2] INVALID FOR*02/25/2015 HNP (herniated nucleus pulposus), lumbar [M51.2*INVALID FOR*07/11/2016 Myofascial muscle pain [M79.1] INVALID FOR*07/11/2016 DDD (degenerative disc disease), lumbar [M51.36]INVALID FOR* Back pain [M54.9] INVALID FOR*07/11/2016 Osteoporosis [M81.0] INVALID FOR* Abnormal ultrasound of breast [R92.8] INVALID FOR*02/25/2015 Colon polyp [K63.5] INVALID FOR*10/16/2016 Serrated adenoma of colon [D12.6] INVALID FOR* Stress and adjustment reaction [F43.29] INVALID FOR*07/11/2016 Enterocolitis due to Clostridium difficile [A04*INVALID FOR*07/17/2016 Kidney stone on left side [N20.0] INVALID FOR*08/31/2016 Colonic polyp [K63.5] INVALID FOR*03/10/2015 Bilateral renal cysts [N28.1] INVALID FOR*07/11/2016 Abnormal toxicological findings [R89.2] INVALID FOR*01/16/2017 Nasal polyposis [J33.9] INVALID FOR* Menopause syndrome [N95.1] INVALID FOR* FDC 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 [Z79.52] INVALID FOR* Other instructions from your clinician: Please follow the provided instructions for upper endoscopy and colonoscopy. You will be using magnesium citrate and dulcolax as the laxatives during the preparation. You may start the laxative as early as 1:00 in the afternoon. Your procedure must be after due to insurance. You have requested Dr. Marcum, at [facility] (due to transportation). You will have the the deeper sedation we call MAC. The program scheduler will call you to schedule your procedure. Encounter Status:Closed by KHARI ALVARADO CNP on 01/31/18 HISTORY PHYSICAL Observed: 01/31/2018 Status: COMPLETED Source: [place] 7:36 AM [facility] REPOSITORY HNO ID: [id number] Author: Khari (Keya) Jenny Service: (none) Author Type: Nurse Practitioner Type: HANDP Filed: 01/31/2018 8:32 AM Note Text: Chey Jeffers a 57 year old female who is referred by Dr. Verduzco for surveillance colonoscopy. The patient reports a family history of colon cancer in that a maternal aunt had the disease. The patient was noted to have a sessile serrated polyp on pathology following a colonoscopy by Dr. Wolfe in June 2013. It was recommended to patient to return in 6-9 months to have a follow-up colonoscopy. Dr. Bains preformed colonoscopy on 03/10/2014 demonstrating one 30 mm polyp in the mid ascending colon. Pathology returned as a hyperplastic polyp. Surgery was recommended due to the size of the area. PROCEDURE: Laparoscopic colectomy ileocecal by Dr. Luis Conroy on 07/16/14. The patient was seen by Dr. Bains for colonoscopy 03/10/15. The procedure report has been reviewed and findings as follows: Impression: ? ? ? - One 5 mm polyp in the rectum. Resected and retrieved. FINAL DIAGNOSIS Rectum, biopsy - Fragments of hyperplastic polyp. The patient was seen by Dr. Wolfe for upper endoscopy 07/11/09. The procedure report has been reviewed and findings as follows: Findings: ? Esophagus: The Z-line is slightly erratic but without erosions or ulcerations. No evidence of Shell's mucosa. No bxs were taken. ? Stomach: Erythematous mucosa was found in the antrum. No evidence of ulcers in the stomach. A biopsy was taken. The specimen was collected for a urease test. Otherwise, the stomach appeared to be normal. ?Duodenum: The duodenum appeared to be normal. The patient remains on Prevacid and Carafate. Presenting complaint: The patient denies change in bowel habits or rectal bleeding. Having a bowel movement anywhere from none in a day, up to several times a day. She reminds me that she has irritable bowel. She might have several bowel movements if she's upset, or depending on what she has eaten. She reports stabbing pain in her lower abdomen when her irritable bowel occurs. No blood or black stool. She takes dicyclomine as needed. The patient has been on Prevacid for years. She also takes ranitidine and sucralfate. She reports nausea at times. Also, pill dysphagia stating that the sensation can last an hour or more. REVIEW OF SYSTEMS: GENERAL: No weight loss, malaise or fevers RESPIRATORY: Severe COPD CARDIOVASCULAR: Negative for chest pain, leg swelling, hypertension, CHF or palpitations GI: The patient states that her appetite has been adequate. She so,etimes get hungry. There has been some nausea, no vomiting. She admits to dysphagia and denies odynophagia. There has not been indigestion or heartburn. There has not been regurgitation. Bowel habits have been irregular. There has been diarrhea. There has not been constipation. The patient denies rectal bleeding. There has not been melena. Intermittent abdominal pain that is located in the lower abodmen, related to the IBS episodes.. PSYCH: Positive for anxiety and depression. MUSCULOSKELETAL: Fibromyalgia and chronic back pain from ankylosing spondylitis - on Fentanyl patch HEMATOLOGY/LYMPHOLOGY Negative for prolonged bleeding, bruising easily or swollen nodes ENDOCRINE: Negative for thyroid or diabetes. NEURO: History of migraine headaches All other reviewed and negative other than HPI. 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 - Menopause syndrome 01/19/2005 - Myalgia and myositis, unspecified - Pure hypercholesterolemia - Serrated adenoma of colon 07/29/2014 - Symptomatic menopausal or female climacteric states - Unspecified asthma(493.90) - Unspecified sinusitis (chronic) 06/21/2008 PAST SURGICAL HISTORY Procedure Laterality Date - COLONOSCOP W/ OR W/O BRSH SPEC 04/24/2001 Colonoscopy - COLONOSCOP W/ OR W/O BRSH SPEC 06/16/2013 Colonoscopy - COLONOSCOP W/ OR W/O BRSH SPEC 03/10/2014 Colonoscopy - COLONOSCOP W/ OR W/O BRSH SPEC 03/10/15 Colonoscopy - EGD W/O OR W/BRUSH/WASH 04/24/2001 EGD - EGD W/O OR W/BRUSH/WASH 07/11/2009 EGD - EXCISION NOSE POLYP(S),SIMPLE 2007 Nasal polypectomy, Dr. Mcclelland - LAP COLECTMY W/ILEUM/ILEOCOL 07-16-14 - PAST SURGICAL HISTORY OF 2013 left breast biopsy- benign - REMOVAL GALLBLADDER 1998 Cholecystectomy - REMV CATARACT EXTRACAP,INSERT LENS 10/10-2013 Cataract Extraction with PC IOL - REPAIR OF NASAL SEPTUM 2006 Septoplasty - SINUS SURGERY PROCEDURE Bilateral 04/02/2017 sinonasal polypectomy, revision maxillary antrostomy, total ethmoidectomy, sphenoidotomy - TOTAL ABDOM HYSTERECTOMY 1992 Hysterectomy, OPAL BSO FAMILY HISTORY Problem Relation Age of Onset - Cancer Maternal Grandmother lung - Colon Cancer Maternal Aunt - COPD Maternal Uncle - Coronary Artery Disease Paternal Aunt - Breast Cancer Other mothers side (cousin) - Cancer Maternal Uncle lung - Emphysema Father - Heart Father - Emphysema Mother diabetic - Heart Mother Blockage and she needs a bypass, but her COPD prevents Current Outpatient Prescriptions: fentaNYL (DURAGESIC) 25 mcg/hr Apply 1 Patch as directed every 72 hours for 30 days.Earliest Fill Date: 01/28/18 Disp: 10 Patch Rfl: 0 [START ON 02/28/2018] fentaNYL (DURAGESIC) 25 mcg/hr Apply 1 Patch as directed every 72 hours for 30 days.Earliest Fill Date: 02/28/18 Disp: 10 Patch Rfl: 0 [START ON 03/31/2018] fentaNYL (DURAGESIC) 25 mcg/hr Apply 1 Patch as directed every 72 hours for 30 days.Earliest Fill Date: 03/31/18 Disp: 10 Patch Rfl: 0 ipratropium-albuterol (DUONEB) 0.5 mg-3 mg(2.5 mg base)/3 mL nebu Inhale 3 mL as instructed every 6 hours as needed. Disp: 30 Vial Rfl: 5 montelukast (SINGULAIR) 10 mg tablet take 1 tablet by mouth at bedtime Disp: 90 tablet Rfl: 3 Estradiol (ESTRACE) 0.5 mg tablet take 1 tablet by mouth once daily Disp: 90 tablet Rfl: 1 ranitidine (ZANTAC) 150 mg tablet take 1 tablet by mouth twice a day Disp: 180 tablet Rfl: 3 clonazePAM (KLONOPIN) 0.5 mg tablet Take 1 tablet by mouth twice daily for 180 days. Disp: 60 tablet Rfl: 5 imipramine HCl (TOFRANIL) 25 mg tablet Take 2 tablets by mouth daily at bedtime. Disp: 180 tablet Rfl: 1 albuterol HFA (VENTOLIN HFA) 90 mcg/actuation inhaler Inhale 2 Puffs as instructed every 4 hours as needed for Wheezing/Shortness of Breath. Disp: 1 Inhaler Rfl: 2 sucralfate (CARAFATE) 1 gram tablet Take 1 tablet by mouth before meals and at bedtime. Disp: 360 tablet Rfl: 1 simvastatin (ZOCOR) 40 mg tablet Take 1 tablet by mouth daily at bedtime. Disp: 90 tablet Rfl: 3 dicyclomine (BENTYL) 10 mg capsule Take 1 capsule by mouth four times daily. (Patient taking differently: Take 10 mg by mouth three times daily. ) Disp: 360 capsule Rfl: 4 lansoprazole (PREVACID) 30 mg capsule take 1 capsule by mouth once daily Disp: 30 capsule Rfl: 11 fluticasone (FLONASE) 50 mcg/actuation nasal spray Use in the nose. SHAKE WELL before using. Blow nose prior to use. Prime pump before using. Disp: Rfl: LOPERAMIDE HCL (IMODIUM ORAL) Take by mouth as needed. Disp: Rfl: Cholecalciferol, Vitamin D3, (VITAMIN D) 1,000 unit cap Take 1,000 Units by mouth once daily. Disp: Rfl: fexofenadine (NAN) 180 mg ORAL tablet Take one(1) tablet daily. Disp: 90 Tab Rfl: 3 vit e acetate/gly/dimeth/water(CETAPHIL MOISTURIZING LOTION) apply twice daily Disp: 1 Rfl: 0 No current facility-administered medications for this visit. SOCIAL HISTORY: Patient is single. She has never smoked. Chey reports her alcohol use as never. PHYSICAL EXAMINATION: Blood pressure 107/64, pulse 109, height 152.4 cm (5'), weight 42.5 kg (93 lb 9.6 oz). General Appearance: Alert, in no acute distress. Skin: Skin color, texture, turgor normal, no suspicious rashes or lesions. Head: Normocephalic, no masses, lesions or abnormalities. Eyes: Anicteric sclera. P Oropharynx: Dentures. Lips, mucosa, and tongue normal, oropharynx normal. Neck: Supple, no adenopathy; thyroid symmetric, normal size. Lungs: Lungs clear to auscultation. No wheezing, rhonchi, rales. (she tells me she did an aerosol treatment prior to appointment) Heart: RRR without murmur. Abdomen: Abdomen soft, non-tender. Bowel sounds normal. No masses, organomegaly. Extremities: No deformities, edema, skin discoloration, clubbing or cyanosis. Peripheral Pulses: Normal. Neurologic: Gait normal. Sensation grossly intact. Impression: GERD 2)halfway use of PPI 3)dysphagia 4)history of polyps 5)IBS Plan: The patient will be scheduled for an upper endoscopy as well as a colonoscopy. She will require MAC. Preparation for the procedures, using magnesium citrate and dulcolax as the laxative, have been explained in detail. The risks, benefits, anticipated outcomes and possible complications were mentioned. I explained the procedure in understandable terms and the patient was given printed material concerning the planned procedure. The patient had the opportunity to ask questions concerning the planned procedure. The patient freely consents to the planned procedure. The patient is encouraged to call with any questions or concerns, or should there be any change in health status between now and the scheduled procedure. I have personally interviewed and examined this patient. I have read the information that the MA documented in this encounter. I spent 30 minutes in the visit, with more than 50% of the total qwzt-xh-synd time of the visit in counseling / coordination of care. Khari Alvarado RN KILN PULLER.ANESTHESIOLOGIST AND CRITICAL CARE PROGRESS Observed: 01/17/2018 Status: COMPLETED Source: [place] 8:13 PM [facility] REPOSITORY HNO ID: [id number] Author: Lew Verduzco Service: (none) Author Type: Physician Type: Progress Notes Filed: 01/20/2018 10:04 AM Note Text: Note TRANSITION CARE MANAGEMENT (TCM) INITIAL CONTACT English Drawer Outreach ? Provider Action/FYI: ? ? ? Initial contact with patient post discharge, spoke to patient. Patient identified by name and . ? TRANSITION CARE MANAGEMENT INITIAL OUTREACH DOCUMENTATION: *Please note that this section is currently only available to locations [facility]. Beginning January 14, patient discharge date and Outreach Attempt documentation will populate here automatically. ? No flowsheet data found. ? SUMMARY: -Pt discharged from [facility] on 01/07/18. -Admitted for: COPD exac ? Do you have a hospital follow up appointment with your PCP? Appointment on 01/16/18 with pcp. Did arrange appt with at this call Yes. Remind patient of appointment date, time, and location. If not within 14 calendar days of discharge - please reschedule accordingly. ? MEDICATIONS: Many patients have questions or concerns about their medications once they are home. Were you prescribed any new medications? Yes prednisone 10 mg # 20 tablets ? ? Were you told to hold any medications? No Were any of your medications discontinued? No ? Do you have any questions about getting or taking your medications? No ? Your discharge instructions/After visit Summary (AVS) are important in guiding you through the recovery process. Is there anything I might help you understand? No ? Do you have all the necessary equipment and supplies at home? Yes ? Medical records from recent hospitalization: Placed for provider to review. Pt seen Dr. Cornell at the hospital but no follow up has been arranged. Pt was also asking about appt with Dr Ansari. Although in review ca not see where pt has seen this provider before. Transitional Care Management Progress Note The patients TCM visit was performed within the 14 days of discharge. Patient's Date of discharge: 01/07/2018 Date of initial coordinator contact after discharge: 01/09/2018 Discharge diagnosis: COPD exacerbation. Medication review completed Yes Provider Documentation: In follow-up of hospitalization, Chey Jeffers is a 57 year old female with the chief complaint of follow up. HPI: Chey Jeffers was admitted for shortness of breath and hypoxemia. Her symptoms improved rapidly with treatments of exacerbation of chronic obstructive pulmonary disease. She was discharged the same day and did not need oxygen. She was prescribed Duoneb which she found effective, and she requested a refill. She was scheduled for a GI consult this month for follow up colonoscopy regarding colon adenoma. She was interested in seeing pulmonary. PAST MEDICAL HISTORY: Reviewed and updated ALLERGIES: Reviewed and updated MEDICATIONS: Reviewed and updated SOCIAL HISTORY: Reviewed and updated FAMILY HISTORY: Reviewed and updated REVIEW OF SYSTEMS: GENERAL: No weight loss, malaise or fevers HEENT: Negative for frequent or significant headaches, sore throat, difficulty swallowing, mouth lesions RESPIRATORY: Negative for hemoptysis, shortness of breath. CARDIOVASCULAR: Negative for chest pain, leg swelling, CHF or palpitations GI: No nausea, vomiting, or diarrhea MUSCULOSKELETAL: back pain All other systems reviewed and negative, other than HPI. Current Outpatient Prescriptions: montelukast (SINGULAIR) 10 mg tablet take 1 tablet by mouth at bedtime Estradiol (ESTRACE) 0.5 mg tablet take 1 tablet by mouth once daily ranitidine (ZANTAC) 150 mg tablet take 1 tablet by mouth twice a day clonazePAM (KLONOPIN) 0.5 mg tablet Take 1 tablet by mouth twice daily for 180 days. imipramine HCl (TOFRANIL) 25 mg tablet Take 2 tablets by mouth daily at bedtime. fentaNYL (DURAGESIC) 25 mcg/hr Apply 1 Patch as directed every 72 hours for 30 days.Earliest Fill Date: 12/28/17 albuterol HFA (VENTOLIN HFA) 90 mcg/actuation inhaler Inhale 2 Puffs as instructed every 4 hours as needed for Wheezing/Shortness of Breath. sucralfate (CARAFATE) 1 gram tablet Take 1 tablet by mouth before meals and at bedtime. simvastatin (ZOCOR) 40 mg tablet Take 1 tablet by mouth daily at bedtime. dicyclomine (BENTYL) 10 mg capsule Take 1 capsule by mouth four times daily. (Patient taking differently: Take 10 mg by mouth three times daily. ) lansoprazole (PREVACID) 30 mg capsule take 1 capsule by mouth once daily fluticasone (FLONASE) 50 mcg/actuation nasal spray Use in the nose. SHAKE WELL before using. Blow nose prior to use. Prime pump before using. LOPERAMIDE HCL (IMODIUM ORAL) Take by mouth as needed. Cholecalciferol, Vitamin D3, (VITAMIN D) 1,000 unit cap Take 1,000 Units by mouth once daily. fexofenadine (NAN) 180 mg ORAL tablet Take one(1) tablet daily. vit e acetate/gly/dimeth/water(CETAPHIL MOISTURIZING LOTION) apply twice daily ipratropium-albuterol (DUONEB) 0.5 mg-3 mg(2.5 mg base)/3 mL nebu Inhale 3 mL as instructed every 6 hours as needed. fentaNYL (DURAGESIC) 25 mcg/hr Apply 1 Patch as directed every 72 hours for 30 days.Earliest Fill Date: 11/28/17 fentaNYL (DURAGESIC) 25 mcg/hr Apply 1 Patch as directed every 72 hours for 30 days. No current facility-administered medications for this visit. PHYSICAL EXAMINATION BP 108/63 Pulse 104 Temp (Src) 97.9 (Left Tympanic) Resp 20 Wt 90 lb (40.8kg) SpO2 99% General appearance: Thin, alert and in no acute distress Lungs: Positive findings: wheezing Heart: RRR without murmur, gallop, or rubs. No ectopy Abdomen: Abdomen soft, non-tender. Bowel sounds normal. No masses, organomegaly Extremities: No edema, skin discoloration, clubbing or cyanosis. 1. I have reviewed the patient record including associated test results during the last hospitalization Yes 2. I have reviewed Lab test Yes 3. I have reviewed Radiology test Yes 4. I reviewed assessment/plan with the patient/family member Yes ASSESSMENT/PLAN: 1. Asthma with chronic obstructive pulmonary disease (COPD) ([facility]) - ICD9: 493.20, ICD10: J44.9 (primary diagnosis) Improved. Continue current treatments. - IPRATROPIUM-ALBUTEROL 0.5 MG-3 MG(2.5 MG BASE)/3 ML NEBULIZATION SOLN - CONSULT TO PULMONARY MEDICINE - SPIROMETRY - BASELINE AND POST DILATOR - LUNG VOLUMES - LUNG DIFFUSION CAPACITY (DLCO) 2. Hypoxemia - ICD9: 799.02, ICD10: R09.02 Resolved. 3. Chronic sinusitis, unspecified location - ICD9: 473.9, ICD10: J32.9 Stable. I have reviewed the patient?s last hospital course including diagnostic testing performed during this hospitalization, their discharge medications, and my assessment and plan with the patient and any family members present at today?s visit. Lew Verduzco MD CNOV Observed: 01/16/2018 Status: COMPLETED Source: [place] 11:00 AM [facility] REPOSITORY Office Visit (INTMWS) CHEY JEFFERS ([id number]) 1960 F Date Time Provider Department 01/16/18 11:00 AM LEW VERDUZCO During your visit today, we recorded the following information about you: Temperature Pulse Respiration Blood pressure 97.9 degrees 104/minute 20/minute 108/63 Weight 40.8 kg Veena Herr LPN 01/20/2018 10:04 AM Signed Transitional Care Management Progress Note The patients TCM visit was performed within the 7 days of discharge. TCM Eligibility Documentation The following information was gathered during the initial Patient Outreach Encounter. No flowsheet data found. If no data exists please enter it manually. If data exists please delete date of discharge and date of initial contact seen below. Patient's Date of discharge: 01/07/2018 Date of initial coordinator contact after discharge: 01/09/2018 Discharge diagnosis: COPD exacerbation (Acute) Medication review completed Yes Veena Herr LPN Provider Documentation: In follow-up of hospitalization, Chey Jeffers is a 57 year old female with the chief complaint of medications. I have reviewed the patient?s last hospital course including diagnostic testing performed during this hospitalization, their discharge medications, and my assessment and plan with the patient and any family members present at today?s visit. TRANSITION CARE MANAGEMENT (TCM) INITIAL CONTACT English Drawer Outreach ? Provider Action/FYI: ? ? ? Initial contact with patient post discharge, spoke to patient. Patient identified by name and . ? TRANSITION CARE MANAGEMENT INITIAL OUTREACH DOCUMENTATION: *Please note that this section is currently only available to locations [facility]. Beginning January 14, patient discharge date and Outreach Attempt documentation will populate here automatically. ? No flowsheet data found. ? SUMMARY: -Pt discharged from [facility] on 01/07/18. -Admitted for: COPD exac ? Do you have a hospital follow up appointment with your PCP? Appointment on 01/16/18 with pcp. Did arrange appt with at this call Yes. Remind patient of appointment date, time, and location. If not within 14 calendar days of discharge - please reschedule accordingly. ? MEDICATIONS: Many patients have questions or concerns about their medications once they are home. Were you prescribed any new medications? Yes prednisone 10 mg # 20 tablets ? ? Were you told to hold any medications? No Were any of your medications discontinued? No ? Do you have any questions about getting or taking your medications? No ? Your discharge instructions/After visit Summary (AVS) are important in guiding you through the recovery process. Is there anything I might help you understand? No ? Do you have all the necessary equipment and supplies at home? Yes ? Medical records from recent hospitalization: Placed for provider to review. Pt seen Dr. Cornell at the hospital but no follow up has been arranged. Pt was also asking about appt with Dr Ansari. Although in review ca not see where pt has seen this provider before. ? ? 01/09/18 2:13 PM Jeni Jackson LPN contacted Chey Verduzco MD 01/20/2018 10:04 AM Signed Note TRANSITION CARE MANAGEMENT (TCM) INITIAL CONTACT English Drawer Outreach ? Provider Action/FYI: ? ? ? Initial contact with patient post discharge, spoke to patient. Patient identified by name and . ? TRANSITION CARE MANAGEMENT INITIAL OUTREACH DOCUMENTATION: *Please note that this section is currently only available to locations [facility] [employer]. Beginning January 14, patient discharge date and Outreach Attempt documentation will populate here automatically. ? No flowsheet data found. ? SUMMARY: -Pt discharged from [facility] on 01/07/18. -Admitted for: COPD exac ? Do you have a hospital follow up appointment with your PCP? Appointment on 01/16/18 with pcp. Did arrange appt with at this call Yes. Remind patient of appointment date, time, and location. If not within 14 calendar days of discharge - please reschedule accordingly. ? MEDICATIONS: Many patients have questions or concerns about their medications once they are home. Were you prescribed any new medications? Yes prednisone 10 mg # 20 tablets ? ? Were you told to hold any medications? No Were any of your medications discontinued? No ? Do you have any questions about getting or taking your medications? No ? Your discharge instructions/After visit Summary (AVS) are important in guiding you through the recovery process. Is there anything I might help you understand? No ? Do you have all the necessary equipment and supplies at home? Yes ? Medical records from recent hospitalization: Placed for provider to review. Pt seen Dr. Cornell at the hospital but no follow up has been arranged. Pt was also asking about appt with Dr Ansari. Although in review ca not see where pt has seen this provider before. Transitional Care Management Progress Note The patients TCM visit was performed within the 14 days of discharge. Patient's Date of discharge: 01/07/2018 Date of initial coordinator contact after discharge: 01/09/2018 Discharge diagnosis: COPD exacerbation. Medication review completed Yes Provider Documentation: In follow-up of hospitalization, Chey Jeffers is a 57 year old female with the chief complaint of follow up. HPI: Chey Jeffers was admitted for shortness of breath and hypoxemia. Her symptoms improved rapidly with treatments of exacerbation of chronic obstructive pulmonary disease. She was discharged the same day and did not need oxygen. She was prescribed Duoneb which she found effective, and she requested a refill. She was scheduled for a GI consult this month for follow up colonoscopy regarding colon adenoma. She was interested in seeing pulmonary. PAST MEDICAL HISTORY: Reviewed and updated ALLERGIES: Reviewed and updated MEDICATIONS: Reviewed and updated SOCIAL HISTORY: Reviewed and updated FAMILY HISTORY: Reviewed and updated REVIEW OF SYSTEMS: GENERAL: No weight loss, malaise or fevers HEENT: Negative for frequent or significant headaches, sore throat, difficulty swallowing, mouth lesions RESPIRATORY: Negative for hemoptysis, shortness of breath. CARDIOVASCULAR: Negative for chest pain, leg swelling, CHF or palpitations GI: No nausea, vomiting, or diarrhea MUSCULOSKELETAL: back pain All other systems reviewed and negative, other than HPI. Current Outpatient Prescriptions: montelukast (SINGULAIR) 10 mg tablet take 1 tablet by mouth at bedtime Estradiol (ESTRACE) 0.5 mg tablet take 1 tablet by mouth once daily ranitidine (ZANTAC) 150 mg tablet take 1 tablet by mouth twice a day clonazePAM (KLONOPIN) 0.5 mg tablet Take 1 tablet by mouth twice daily for 180 days. imipramine HCl (TOFRANIL) 25 mg tablet Take 2 tablets by mouth daily at bedtime. fentaNYL (DURAGESIC) 25 mcg/hr Apply 1 Patch as directed every 72 hours for 30 days.Earliest Fill Date: 12/28/17 albuterol HFA (VENTOLIN HFA) 90 mcg/actuation inhaler Inhale 2 Puffs as instructed every 4 hours as needed for Wheezing/Shortness of Breath. sucralfate (CARAFATE) 1 gram tablet Take 1 tablet by mouth before meals and at bedtime. simvastatin (ZOCOR) 40 mg tablet Take 1 tablet by mouth daily at bedtime. dicyclomine (BENTYL) 10 mg capsule Take 1 capsule by mouth four times daily. (Patient taking differently: Take 10 mg by mouth three times daily. ) lansoprazole (PREVACID) 30 mg capsule take 1 capsule by mouth once daily fluticasone (FLONASE) 50 mcg/actuation nasal spray Use in the nose. SHAKE WELL before using. Blow nose prior to use. Prime pump before using. LOPERAMIDE HCL (IMODIUM ORAL) Take by mouth as needed. Cholecalciferol, Vitamin D3, (VITAMIN D) 1,000 unit cap Take 1,000 Units by mouth once daily. fexofenadine (NAN) 180 mg ORAL tablet Take one(1) tablet daily. vit e acetate/gly/dimeth/water(CETAPHIL MOISTURIZING LOTION) apply twice daily ipratropium-albuterol (DUONEB) 0.5 mg-3 mg(2.5 mg base)/3 mL nebu Inhale 3 mL as instructed every 6 hours as needed. fentaNYL (DURAGESIC) 25 mcg/hr Apply 1 Patch as directed every 72 hours for 30 days.Earliest Fill Date: 11/28/17 fentaNYL (DURAGESIC) 25 mcg/hr Apply 1 Patch as directed every 72 hours for 30 days. No current facility-administered medications for this visit. PHYSICAL EXAMINATION BP 108/63 Pulse 104 Temp (Src) 97.9 (Left Tympanic) Resp 20 Wt 90 lb (40.8kg) SpO2 99% General appearance: Thin, alert and in no acute distress Lungs: Positive findings: wheezing Heart: RRR without murmur, gallop, or rubs. No ectopy Abdomen: Abdomen soft, non-tender. Bowel sounds normal. No masses, organomegaly Extremities: No edema, skin discoloration, clubbing or cyanosis. 1. I have reviewed the patient record including associated test results during the last hospitalization Yes 2. I have reviewed Lab test Yes 3. I have reviewed Radiology test Yes 4. I reviewed assessment/plan with the patient/family member Yes ASSESSMENT/PLAN: 1. Asthma with chronic obstructive pulmonary disease (COPD) ([facility]) - ICD9: 493.20, ICD10: J44.9 (primary diagnosis) Improved. Continue current treatments. - IPRATROPIUM-ALBUTEROL 0.5 MG-3 MG(2.5 MG BASE)/3 ML NEBULIZATION SOLN - CONSULT TO PULMONARY MEDICINE - SPIROMETRY - BASELINE AND POST DILATOR - LUNG VOLUMES - LUNG DIFFUSION CAPACITY (DLCO) 2. Hypoxemia - ICD9: 799.02, ICD10: R09.02 Resolved. 3. Chronic sinusitis, unspecified location - ICD9: 473.9, ICD10: J32.9 Stable. I have reviewed the patient?s last hospital course including diagnostic testing performed during this hospitalization, their discharge medications, and my assessment and plan with the patient and any family members present at today?s visit. Lew Verduzco MD Referring Provider: LEW VERDUZCO [[id number]] Allergies As of Date: 01/16/2018 Noted Allergy Reaction CODEINE 02/15/2005 4 - Hives VICODIN (HYDROCODONE-ACETAMINOPHE*02/15/2005 4 - Hives DEMEROL (MEPERIDINE (PF)) 01/03/2006 2 - Rash BACTRIM (SULFAMETHOXAZOLE-TRIMETH*07/25/2005 Comments: uncertain CELEXA (CITALOPRAM HYDROBROMIDE) 07/25/2005 8 - GI Upset DOXY (DOXYCYCLINE) 06/04/2005 Comments: rash and asthma DUREZOL (DIFLUPREDNATE) 03/04/2014 2 - Rash Environmental allergies [Other] 02/25/2006 Comments: Dogs, molds IBUPROFEN 07/25/2005 12 - Shortness of Breath LEXAPRO (ESCITALOPRAM OXALATE) 07/25/2005 8 - GI Upset LYRICA (PREGABALIN) 04/10/2011 1 - Mental Status Change Comments: dizzy MAPROTILINE 05/16/2009 9 - Itching MUCOMYST (ACETYLCYSTEINE) 10/30/2012 3 - Cough Comments: increase wheezing OXYCODONE 01/17/2011 12 - Shortness of Breath PENICILLINS 01/09/2005 Comments: rash PREDNISONE 07/30/2006 9 - Itching TORADOL (KETOROLAC TROMETHAMINE) 04/06/2011 7 - Swelling TYLENOL (ACETAMINOPHEN) 01/02/2006 5 - Intolerance Comments: asthma ULTRAM (TRAMADOL HCL) 07/25/2005 14 - Other: See Comments Comments: chest pains VANCOMYCIN 01/21/2015 14 - Other: See Comments Comments: Wheezing after taking, legs swollen and tongue swelling and scratchy neck VENLAFAXINE 07/09/2011 8 - GI Upset ZITHROMAX (AZITHROMYCIN) 01/19/2005 9 - Itching MIRTAZAPINE 11/17/2013 14 - Other: See Comments Comments: Hand shakes. Date Reviewed: 01/16/2018 Reviewed by: Veena Herr LPN - Fully Assessed Reason for Visit: [facility] follow-up [Other] Primary Visit Diagnosis:Asthma with chronic obstructive pulmonary disease (COPD) (H[facility]) [J44.9] Other Visit Diagnoses:Hypoxemia [R09.02] Chronic sinusitis, unspecified location [J32.9] Order(s):ipratropium-albuterol (DUONEB) 0.5 mg-3 mg(2.5 mg base)/3 mL nebuInhale 3 mL as instructed every 6 hours as needed.Disp: 30 VialRfl: 5 CONSULT TO PULMONARY MEDICINE [6444827] Order #: [id number]: 1 SPIROMETRY - BASELINE AND POST DILATOR [[id number]] Order #: [id number] FUTURE LUNG VOLUMES [[id number]] Order #: [id number] FUTURE LUNG DIFFUSION CAPACITY (DLCO) [[id number]] Order #: [id number] FUTURE Prescriptions as of 01/16/2018 Sig: MONTELUKAST 10 MG TABLET take 1 tablet by mouth at bed* ESTRADIOL 0.5 MG TABLET take 1 tablet by mouth once d* RANITIDINE 150 MG TABLET take 1 tablet by mouth twice * CLONAZEPAM 0.5 MG TABLET Take 1 tablet by mouth twice * IMIPRAMINE 25 MG TABLET Take 2 tablets by mouth daily* FENTANYL 25 MCG/HR TRANSDERMA* Apply 1 Patch as directed alissa* ALBUTEROL SULFATE HFA 90 MCG/* Inhale 2 Puffs as instructed * SUCRALFATE 1 GRAM TABLET Take 1 tablet by mouth before* SIMVASTATIN 40 MG TABLET Take 1 tablet by mouth daily * DICYCLOMINE 10 MG CAPSULE Take 1 capsule by mouth four * Patient taking differently: Take 10 mg by mouth three berny* LANSOPRAZOLE 30 MG CAPSULE,DE* take 1 capsule by mouth once * FLUTICASONE 50 MCG/ACTUATION * Use in the nose. SHAKE WELL * IMODIUM ORAL Take by mouth as needed. CHOLECALCIFEROL (VITAMIN D3) * Take 1,000 Units by mouth onc* FEXOFENADINE 180 MG TABLET Take one(1) tablet daily. CETAPHIL MOISTURIZING LOTION apply twice daily IPRATROPIUM-ALBUTEROL 0.5 MG-* Inhale 3 mL as instructed alissa* FENTANYL 25 MCG/HR TRANSDERMA* Apply 1 Patch as directed alissa* FENTANYL 25 MCG/HR TRANSDERMA* Apply 1 Patch as directed alissa* Medication notes this encounter [employer] >> Veena Herr LPN 01/16/2018 11:24 AM >> VEENA HERR LPN Mary Ellen Jan 16, 2018 11:24 AM PRN Problem List As Of Date 01/16/2018 Noted Resolved Asthma with chronic obstructive pulmonary disea*INVALID FOR* CHRONIC CYSTITIS NEC [N30.20] INVALID FOR* Vaginitis and vulvovaginitis, unspecified [N76.*INVALID FOR*02/25/2015 Anxiety and depression [F41.9, F32.9] INVALID FOR* PURE HYPERCHOLESTEROLEM [E78.00] Acute gastritis [535.0] 02/25/2015 Irritable bowel syndrome [K58.9] Congenital anomalies of foot, 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*INVALID FOR*02/25/2015 ANKYLOSING SPONDYLITIS [M45.9] INVALID FOR* CHRONIC RHINITIS [J31.0] INVALID FOR* Sinusitis, chronic [J32.9] INVALID FOR* Intrinsic asthma, unspecified [J45.909] INVALID FOR*08/31/2016 ESOPHAGEAL REFLUX [K21.9] INVALID FOR* Acute gastritis without mention of hemorrhage [*INVALID FOR*02/25/2015 Fibromyalgia [M79.7] INVALID FOR* COPD (chronic obstructive pulmonary disease) (H*INVALID FOR*07/18/2017 Calcaneal spur [M77.30] INVALID FOR*02/25/2015 Plantar fasciitis [M72.2] INVALID FOR*02/25/2015 HNP (herniated nucleus pulposus), lumbar [M51.2*INVALID FOR*07/11/2016 Myofascial muscle pain [M79.1] INVALID FOR*07/11/2016 DDD (degenerative disc disease), lumbar [M51.36]INVALID FOR* Back pain [M54.9] INVALID FOR*07/11/2016 Osteoporosis [M81.0] INVALID FOR* Abnormal ultrasound of breast [R92.8] INVALID FOR*02/25/2015 Colon polyp [K63.5] INVALID FOR*10/16/2016 Serrated adenoma of colon [D12.6] INVALID FOR* Stress and adjustment reaction [F43.29] INVALID FOR*07/11/2016 Enterocolitis due to Clostridium difficile [A04*INVALID FOR*07/17/2016 Kidney stone on left side [N20.0] INVALID FOR*08/31/2016 Colonic polyp [K63.5] INVALID FOR*03/10/2015 Bilateral renal cysts [N28.1] INVALID FOR*07/11/2016 Abnormal toxicological findings [R89.2] INVALID FOR*01/16/2017 Nasal polyposis [J33.9] INVALID FOR* Menopause syndrome [N95.1] 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 TCM Eligibility Documentation The following information was gathered during the initial Patient Outreach Encounter. No flowsheet data found. If no data exists please enter it manually. If data exists please delete date of discharge and date of initial contact seen below. Patient's Date of discharge: 01/07/2018 Date of initial coordinator contact after discharge: 01/09/2018 Discharge diagnosis: COPD exacerbation (Acute) Medication review completed Yes Veena Herr LPN Provider Documentation: In follow-up of hospitalization, Chey Jeffers is a 57 year old female with the chief complaint of medications. I have reviewed the patient?s last hospital course including diagnostic testing performed during this hospitalization, their discharge medications, and my assessment and plan with the patient and any family members present at today?s visit. TRANSITION CARE MANAGEMENT (TCM) INITIAL CONTACT English Drawer Outreach ? Provider Action/FYI: ? ? ? Initial contact with patient post discharge, spoke to patient. Patient identified by name and . ? TRANSITION CARE MANAGEMENT INITIAL OUTREACH DOCUMENTATION: *Please note that this section is currently only available to locations [facility]. Beginning January 14, patient discharge date and Outreach Attempt documentation will populate here automatically. ? No flowsheet data found. ? SUMMARY: -Pt discharged from [facility] on 01/07/18. -Admitted for: COPD exac ? Do you have a hospital follow up appointment with your PCP? Appointment on 01/16/18 with pcp. Did arrange appt with at this call Yes. Remind patient of appointment date, time, and location. If not within 14 calendar days of discharge - please reschedule accordingly. ? MEDICATIONS: Many patients have questions or concerns about their medications once they are home. Were you prescribed any new medications? Yes prednisone 10 mg # 20 tablets ? ? Were you told to hold any medications? No Were any of your medications discontinued? No ? Do you have any questions about getting or taking your medications? No ? Your discharge instructions/After visit Summary (AVS) are important in guiding you through the recovery process. Is there anything I might help you understand? No ? Do you have all the necessary equipment and supplies at home? Yes ? Medical records from recent hospitalization: Placed for provider to review. Pt seen Dr. Cornell at the hospital but no follow up has been arranged. Pt was also asking about appt with Dr Ansari. Although in review ca not see where pt has seen this provider before. ? ? 01/09/18 2:13 PM Jeni Jackson LPN contacted Chey Jeffers Prescriptions ordered this encounter Disp Refills Start End IPRATROPIUM-ALBUTEROL 0.5 MG-3 MG(2.* 30 V* 5 01/16/2018 Route: INHALATION Sig: Inhale 3 mL as instructed every 6 hours as needed. Medications Discontinued During This Encounter ipratropium (ATROVENT) 0.02 % nebuli* 360 * 3 06/23/2015 01/16/2018 Route: NEBULIZATION -UNSPEC Sig: Use 2.5 mL via nebulizer four times daily as needed for Wheezing/Shortness of Breath. Use over 5-15minutes. Patient taking differently: Use 0.5 mg via nebulizer every 8 hours. Use over 5-15minutes. Disc: Reason for discontinue is not on file. imipramine HCl (TOFRANIL) 25 mg tabl* 270 * 1 10/28/2017 01/16/2018 Sig: Take one(1) tablet daily in the morning. Take two(2) tablets daily at bedtime. Cancel all other previous imipramine prescriptions. Patient not taking: Reported on 01/16/2018 Disc: Reason for discontinue is not on file. mucus clearing device(ACAPELLA DEVIC* 1 0 03/23/2009 01/16/2018 Class: Print RX Route: Miscell. (Med.Supl.;Non-Drugs) Si puffs 4 times daily Disc: Reason for discontinue is not on file. Albuterol Sulfate 1.25 mg/3 mL nebul* 360 * 3 06/23/2015 01/16/2018 Route: NEBULIZATION -UNSPEC Sig: Use 1 Ampule via nebulizer every 4 hours as needed. Disc: Reason for discontinue is not on file. Disposition: Return in about 3 months (around 04/17/2018). Follow-up and Disposition History Recorded Encounter Status:Closed by VEENA HERR LPN on 01/20/18 12 LEAD ELECTROCARDIOGRAM Observed: 01/14/2018 Status: F Source: [facility] 2:05 PM [facility] REPOSITORY [facility] Cardiovascular Services [address] [place] [address] 12 Lead EKG 01/07/18716 MR#: [id number] Acct: [id number] Name: CHEY JEFFERS Rep #: [id number] : 1960 57 From: Sterling Alejandro MD Attending Dr: Hi Hensley DO Status: DIS LORNA Ordering Dr: Nory Coker DO Date: 01/07/18 [place] [facility] [place] Sex: F C Admitted: 01/07/18 Test Reason : SOB Blood Pressure : / mmHG Vent. Rate : 099 BPM Atrial Rate : 099 BPM P-R Int : 140 ms QRS Dur : 064 ms QT Int : 346 ms P-R-T Axes : 080 080 073 degrees QTc Int : 444 ms Normal sinus rhythm Normal ECG Confirmed by STERLING ALEJANDRO ([id number]), acquisitions editor JUAN MURPHY ([id number]) on 01/14/2018 2:04:48 PM Referred By: ADONIS Confirmed By:STERLING ALEJANDRO 01/14/18 1404 Date Sterling Alejandro MD CC: Hi Hensley DO; Nory Coker DO; Lew Verduzco MD Signed DISCHARGE SUMMARY Observed: 01/07/2018 Status: F Source: [place] 1:21 PM [facility] REPOSITORY [facility] Medical Records Department [address] [place] [address] Discharge Summary 01/07/18 1319 MR#: [id number] Acct: [id number] Name: CHEY JEFFERS Rep #: [id number] : 1960 57 From: Hi Hensley DO PCP: Lew Verduzco MD Status: ADM IN Y Location: [place] [address] Discharge Date and Diagnosis - Problem List Patient Problems: Active and Suspected Problems (Last Updated 01/07/18 @ 13:08 by Hi Hensley DO) COPD exacerbation (Acute) Date of Admission: 01/07/18 Date of Discharge: 01/07/18 - Primary Discharge Diagnosis Active and Suspected Problems (Last Updated 01/07/18 @ 13:08 by Hi Hensley DO) COPD exacerbation (Acute) - Secondary Discharge Diagnosis Chronic Problems (Last Updated 01/07/18 @ 13:08 by Hi Hensley DO) Asthma (Chronic) Ankylosing spondylitis (Chronic) Anxiety disorder (Chronic) History of chest pain (Chronic) Atypical History of cataract (Chronic) Edentulous (Chronic) HLD (hyperlipidemia) (Chronic) Myositis (Chronic) History of nasal polyp (Chronic) Obesity (Chronic) Plantar fascial fibromatosis (Chronic) IBS (irritable bowel syndrome) (Chronic) Mixed anxiety and depressive disorder (Chronic) Migraines (Chronic) Hospital Course and Treatment Imaging Results: Clinical Impression(s) from Imaging Studies Chest X-Ray 01/07/18 07:08 IMPRESSION: Normal x-ray examination of the chest. Electronically Signed: Cristofer Etienne MD at 7:32 EDT Tel , Service support , Operations: None Procedures: None Summary of Care Provided: The patient is a 57 year old F resents with shortness of breath hypoxia of 70-80% at home. In the emergency room, patient did have an intake pulse ox of 88% but subsequently improved to 98% on room air. Patient in the emergency room, received Levaquin, bronchodilators and Solu-Medrol. Patient was seen on the floor by myself and patient was talking in full sentences, on room air. Patient was ambulated in the hallway on room air talking in full sentences the hallway and upon returning back her pulse ox was 95%. Therefore, do not feel the patient requires hospitalization and can be discharged with prednisone 40 mg for 5 days. Patient also asked for DuoNeb's for nebulizer which she will be immobilized. Patient follow-up with her primary care doctor next 2 weeks and the follow-up with her rn access, Dr. Olguin, next 1-2 months or sooner if necessary. [] Discharge Diet: No Restrictions Call your doctor if you observe: Fever of 101 or Higher, Shortness of breath Home Medications: Medications to take at Discharge Albuterol Sulfate [Ventolin Hfa] 1 - 2 puff IH Q4H PRN PRN 07/09/14 Cholecalciferol (VIT D3) [Vitamin D3] 1,000 unit PO DAILY 07/09/14 Clonazepam [Klonopin] 0.5 mg PO BID 07/09/14 Estradiol [Estrace] 0.5 mg PO QHS 07/09/14 Fluticasone 0.05% [Flonase Nasal Beaman] 1 spray NASAL DAILY PRN PRN 07/09/14 Lansoprazole [Prevacid] 30 mg PO DAILY 07/09/14 Ranitidine [Zantac] 150 mg PO BID 07/09/14 Simvastatin [Zocor] 40 mg PO QHS 07/09/14 fentaNYL patch [Duragesic Patch] 25 mcg TRANSDERM. Q3D 07/09/14 Loperamide [Imodium] 2 mg PO Q6H PRN PRN #20 capsule 07/22/14 Dicyclomine HCl [Bentyl] 10 mg PO TID 06/24/15 Imipramine HCl [Tofranil] 25 mg PO DAILY 06/24/15 Sucralfate [Carafate] 10 ml PO TID 06/24/15 Fexofenadine HCl [Nan Allergy] 180 mg PO QHS 03/26/17 Imipramine HCl 50 mg PO QHS 01/07/18 Ipratropium/Albuterol Sulfate [Duoneb] 3 ml INHALATION Q8H #30 ampul.neb 01/07/18 Prednisone 4 tab PO DAILY #20 tab 01/07/18 Following Prescrptions Were Given to Patient: Ipratropium/Albuterol Sulfate [Duoneb] 3 ml INHALATION Q8H #30 ampul.neb Prednisone 4 tab PO DAILY #20 tab Primary Care Physician: Lew Verduzco MD [Primary Care Provider] - Within 2 Weeks Please Follow Up With: Abdias Olguin MD When: 1-2 months Disposition: Home Minutes spent on discharge:: 35 Patient Condition:: Good Medical Necessity - Tobacco Use Smoking Status: Never smoker Tobacco Use: Non-smoker Meaningful Use Info Meaningful Use Diagnoses (Choose all that apply): None applicable Code Visit OBSV E AND M: 18220 Observ/hosp same date L3 01/07/18 1321 <Electronically signed by Hi Hensley DO> Date Hi Hensley DO Cosigner Signature (if applicable): Date CC: Abdias Olguin MD; Hi Hensley DO; Lew Verduzco MD Signed DISCHARGE INSTRUCTION Observed: 01/07/2018 Status: F Source: [place] 1:19 PM [facility] REPOSITORY [facility] Medical Records Department [address] [place] [id number] Instructions for Home/Discharge Instructions 01/07/18 1318 MR#: [id number] Acct: [id number] Name: CHEY JEFFERS Rep #: [id number] : 1960 57 From: Hi Hensley DO PCP: Lew Verduzco MD Status: ADM IN - Discharge Diagnoses Current Active Problems: Current Active and Chronic Problems (Last Updated 01/07/18 @ 13:08 by Hi Hensley DO) COPD exacerbation (Acute) You will use the following diet at home:: No restrictions Your food should be the consistency of: Regular Your liquids should be the consistency of: Regular/Thin Call your doctor if you observe: Fever of 101 or Higher, Shortness of breath Allergies/Adverse Reactions: Allergies acetaminophen [From Vicodin] Allergy (Verified 05/27/17 07:33) MAKES MY CHEST HURT aspirin Allergy (Verified 05/27/17 07:33) Shortness of breath azithromycin [From Zithromax] Allergy (Verified 05/27/17 07:33) Itching budesonide Allergy (Verified 05/27/17 07:33) Rash ciprofloxacin [From Cipro] Allergy (Verified 05/27/17 10:18) Hives codeine Allergy (Verified 05/27/17 07:33) Hives difluprednate [From Durezol] Allergy (Verified 05/27/17 07:33) Rash doxycycline Allergy (Verified 05/27/17 07:33) Rash hydrocodone bitartrate [From Vicodin] Allergy (Verified 05/27/17 07:33) Hives ibuprofen [From Motrin] Allergy (Verified 05/27/17 07:33) Shortness of breath ketorolac tromethamine [From Toradol] Allergy (Verified 05/27/17 07:33) Swelling maprotiline Allergy (Verified 05/27/17 07:33) Itching meperidine HCl [From Demerol] Allergy (Verified 05/27/17 07:33) Rash mirtazapine Allergy (Verified 05/27/17 07:33) Other Penicillins Allergy (Verified 05/27/17 07:33) Rash prednisone Allergy (Verified 05/27/17 07:33) Itching tramadol HCl [From Ultram] Allergy (Verified 05/27/17 07:33) Chest tightness vancomycin Allergy (Verified 05/27/17 07:33) Swelling acetylcysteine [From Mucomyst] Adverse Reaction (Verified 05/27/17 07:33) ITCHING, REDNESS citalopram hydrobromide [From Celexa] Adverse Reaction (Verified 05/27/17 07:33) Nausea/Vom/Diarrhea escitalopram oxalate [From Lexapro] Adverse Reaction (Verified 05/27/17 07:33) Nausea/Vom/Diarrhea nitrofurantoin [From Macrobid] Adverse Reaction (Verified 05/27/17 07:33) Diarrhea nitrofurantoin macrocrystalline [From Macrobid] Adverse Reaction (Verified 05/27/17 07:33) Diarrhea oxycodone Adverse Reaction (Verified 05/27/17 07:33) Hives pregabalin [From Lyrica] Adverse Reaction (Verified 05/27/17 07:33) Swelling sulfamethoxazole [From Bactrim] Adverse Reaction (Verified 05/27/17 07:33) Unknown trimethoprim [From Bactrim] Adverse Reaction (Verified 05/27/17 07:33) Unknown venlafaxine HCl [From Effexor] Adverse Reaction (Verified 05/27/17 07:33) Nausea/Vom/Diarrhea Medications to take at Discharge Albuterol Sulfate [Ventolin Hfa] 1 - 2 puff IH Q4H PRN PRN 07/09/14 Cholecalciferol (VIT D3) [Vitamin D3] 1,000 unit PO DAILY 07/09/14 Clonazepam [Klonopin] 0.5 mg PO BID 07/09/14 Estradiol [Estrace] 0.5 mg PO QHS 07/09/14 Fluticasone 0.05% [Flonase Nasal Beaman] 1 spray NASAL DAILY PRN PRN 07/09/14 Lansoprazole [Prevacid] 30 mg PO DAILY 07/09/14 Ranitidine [Zantac] 150 mg PO BID 07/09/14 Simvastatin [Zocor] 40 mg PO QHS 07/09/14 fentaNYL patch [Duragesic Patch] 25 mcg TRANSDERM. Q3D 07/09/14 Loperamide [Imodium] 2 mg PO Q6H PRN PRN #20 capsule 07/22/14 Dicyclomine HCl [Bentyl] 10 mg PO TID 06/24/15 Imipramine HCl [Tofranil] 25 mg PO DAILY 06/24/15 Sucralfate [Carafate] 10 ml PO TID 06/24/15 Fexofenadine HCl [Nan Allergy] 180 mg PO QHS 03/26/17 Imipramine HCl 50 mg PO QHS 01/07/18 Ipratropium/Albuterol Sulfate [Duoneb] 3 ml INHALATION Q8H #30 ampul.neb 01/07/18 Prednisone 4 tab PO DAILY #20 tab 01/07/18 The following prescriptions were given: Ipratropium/Albuterol Sulfate [Duoneb] 3 ml INHALATION Q8H #30 ampul.neb Prednisone 4 tab PO DAILY #20 tab Primary Care Physician: Lew Verduzco MD [Primary Care Provider] - Within 2 Weeks Test Results: Test results from this visit will be discussed in further detail at your follow-up appointment, if applicable. Please Follow Up With: Abdias Olguin MD When: 1-2 months Proposed Discharge Date: 01/07/18 01/07/18 1319 <Electronically signed by Hi Hensley DO> Date Hi Hensley DO CC: Lew Verduzco MD HISTORY AND PHYSICAL Observed: 01/07/2018 Status: F Source: [place] EXAM 1:14 PM [facility] REPOSITORY [facility] Medical Records Department [address] [place] [address] History and Physical 01/07/18 1304 MR#: [id number] Acct: [id number] Name: CHEY JEFFERS Rep #: [id number] : 1960 57 From: Hi Hensley DO PCP: Lew Verduzco MD Status: ADM IN Y [place] [facility] [place] [id number] Problem List (1) COPD exacerbation Status: Acute History of Present Illness Date of Admission: 01/07/18 Chief Complaint: shortness of breath. The patient is a 57 year old F presents with shortness of breath. Time and will check her pulse ox to be minimal exertion. Patient had the same bouts a day. Patient feels that her symptoms are related with sinus infection and usually relieved with Medrol Dosepak and Levaquin. Patient presented to the emergency room where she will intake pulse ox was 88%. After treatment with Levaquin and duo nebs and methylprednisolone, patient was 98% on room air. [] Past Medical History Past Medical History (Chronic Problems): Chronic Problems Asthma (Chronic) Ankylosing spondylitis (Chronic) Anxiety disorder (Chronic) History of chest pain (Chronic) Atypical History of cataract (Chronic) Edentulous (Chronic) HLD (hyperlipidemia) (Chronic) Myositis (Chronic) History of nasal polyp (Chronic) Obesity (Chronic) Plantar fascial fibromatosis (Chronic) IBS (irritable bowel syndrome) (Chronic) Mixed anxiety and depressive disorder (Chronic) Migraines (Chronic) Medical History: Medical History (Last Updated 09/04/18 @ 13:08 by Hi Hensley DO) Anxiety F41.9 Asthma J45.909 COPD (chronic obstructive pulmonary disease) J44.9 Degenerative disc disease Depression F32.9 Fibromyalgia M79.7 Migraine G43.909 Allergies acetaminophen [From Vicodin] Allergy (Verified 05/27/17 07:33) MAKES MY CHEST HURT aspirin Allergy (Verified 05/27/17 07:33) Shortness of breath azithromycin [From Zithromax] Allergy (Verified 05/27/17 07:33) Itching budesonide Allergy (Verified 05/27/17 07:33) Rash ciprofloxacin [From Cipro] Allergy (Verified 05/27/17 10:18) Hives codeine Allergy (Verified 05/27/17 07:33) Hives difluprednate [From Durezol] Allergy (Verified 05/27/17 07:33) Rash doxycycline Allergy (Verified 05/27/17 07:33) Rash hydrocodone bitartrate [From Vicodin] Allergy (Verified 05/27/17 07:33) Hives ibuprofen [From Motrin] Allergy (Verified 05/27/17 07:33) Shortness of breath ketorolac tromethamine [From Toradol] Allergy (Verified 05/27/17 07:33) Swelling maprotiline Allergy (Verified 05/27/17 07:33) Itching meperidine HCl [From Demerol] Allergy (Verified 05/27/17 07:33) Rash mirtazapine Allergy (Verified 05/27/17 07:33) Other Penicillins Allergy (Verified 05/27/17 07:33) Rash prednisone Allergy (Verified 05/27/17 07:33) Itching tramadol HCl [From Ultram] Allergy (Verified 05/27/17 07:33) Chest tightness vancomycin Allergy (Verified 05/27/17 07:33) Swelling acetylcysteine [From Mucomyst] Adverse Reaction (Verified 05/27/17 07:33) ITCHING, REDNESS citalopram hydrobromide [From Celexa] Adverse Reaction (Verified 05/27/17 07:33) Nausea/Vom/Diarrhea escitalopram oxalate [From Lexapro] Adverse Reaction (Verified 05/27/17 07:33) Nausea/Vom/Diarrhea nitrofurantoin [From Macrobid] Adverse Reaction (Verified 05/27/17 07:33) Diarrhea nitrofurantoin macrocrystalline [From Macrobid] Adverse Reaction (Verified 05/27/17 07:33) Diarrhea oxycodone Adverse Reaction (Verified 05/27/17 07:33) Hives pregabalin [From Lyrica] Adverse Reaction (Verified 05/27/17 07:33) Swelling sulfamethoxazole [From Bactrim] Adverse Reaction (Verified 05/27/17 07:33) Unknown trimethoprim [From Bactrim] Adverse Reaction (Verified 05/27/17 07:33) Unknown venlafaxine HCl [From Effexor] Adverse Reaction (Verified 05/27/17 07:33) Nausea/Vom/Diarrhea Home Medications: Ambulatory Orders Medication Instructions Recorded Albuterol Sulfate [Ventolin Hfa] 1 - 2 puff IH Q4H PRN PRN 07/09/14 Cholecalciferol (VIT D3) [Vitamin 1,000 unit PO DAILY 07/09/14 Surgical History: appendectomy, cholecystectomy, hysterectomy Psychiatric History: Anxiety, Depression Smoking Status: Never smoker Tobacco Use: Non-smoker - *Family History Maternal History Items: Cancer, COPD, - Paternal History Items: Heart Disease, Hypertension Sibling History Items: Diabetes, Heart Disease, Hypertension, Pulmonary Disease Review of Systems Constitutional: Denies: Anorexia, Chills, Fever Eyes: Denies: Blurred vision, Double vision HEENT: Reports: Post Nasal Drip, Sore Throat. Denies: Head Aches, Sinus Congestion, Sinus Drainage Cardiovascular: Reports: Chest Pain. Denies: Palpitations Respiratory: Reports: Cough, Shortness of Breath, Sputum production, Wheezing Gastrointestinal: Denies: Abdominal Pain, Nausea, Vomiting Genitourinary: Denies: Dysuria Musculoskeletal: Denies: Joint Pain, Joint Tenderness Skin: Denies: Dryness, Jaundice Neurological: Denies: Numbness, Tingling, Focal weakness Psychiatric: Reports: Anxiety Hematologic/ Lymphatic: Denies: Easy Bruising, Easy Bleeding, Hx of blood clot Comment: All review of systems are negative except as mentioned in the history of present illness and the other review of systems. VTE Information - Inpt Only VTE Present on Admission: No VTE Mechan Device Prophylaxis: None VTE Pharm Prophylaxis ordered?: Yes Patient Problems: Active and Suspected Problems COPD exacerbation (Acute) - Physical Exam General: Alert, Cooperative, No apparent distress, - - No respiratory distress. No conversational dyspnea. HEENT: Atraumatic, Normocephalic Oral: Moist Mucosa, No Gingival or Mucosal Lesions/ Ulcerations Neck: No Nodes, Thyroid Normal Size and Texture Lungs: Clear to auscultation, Normal air movement, No rhonchi, No wheeze Cardiovascular: Regular rate, Regular Rhythm, Normal S1, Normal S2, No murmurs Abdomen: Bowel Sounds Present, Soft, Non Tender, Non-Distended, No Hepato-splenomegaly Extremities: No edema, No Calf Tenderness Skin: No breakdown, - - Macular rash with satellite lesions underneath the right breast. No evidence of cellulitis. Musculoskeletal: No Tenderness to Palpation of Joints or Extremities, No Muscle Wasting Neurological: Coordination normal, Gait narrow based and stable Psych/Mental Status: Appropriate, Anxious Vital Signs Temp Pulse Resp BP Pulse Ox 36.9 C 105 H 19 H 119/51 L 97 01/07/18 10:45 01/07/18 10:45 01/07/18 10:45 01/07/18 10:45 01/07/18 10:45 Oxygen Delivery Method Room Air Weight: 41 kg Body Mass Index (BMI) 17.0 Chest x-ray reviewed and showed no infiltrate nor edema. Assessment/Plan All Active Problems COPD exacerbation (Acute) Influenza A (Acute) Hypokalemia (Acute) Hypomagnesemia (Acute) HCAP (healthcare-associated pneumonia) (Acute) Traumatic ulcer of right lower leg (Acute) Allergic reaction caused by a drug (Acute) Diarrhea (Acute) Generalized weakness (Acute) 1. Acute asthma/COPD exacerbation * Patient is not hypoxic even with ambulation in the hallway * I do not feel the patient needs to be admitted and can be discharged with prednisone 40 mg daily for 5 days * Patient also requesting duo nebs be refilled. * I do not suspect any pneumonia. Patient also complaining of upper respiratory symptoms and sinus congestion but in either case I do not feel antibiotics are warranted. * Patient can be discharged home * Follow-up with pulmonology as outpatient 2. Headaches * Patient has numerous allergies I would be concerned about analgesic rebound given the patient's fentanyl use. * Consider discontinuing fentanyl to help alleviate her headaches which reveal her analgesic rebound. 3. Suspected contact dermatitis * Patient has a very confined rash under her right breast. Almost has a candidal type appearance but patient does not have the breast folds that you lateral. Suspect is probably more of a contact dermatitis given the patient's recent gardening and around unknown plants with her numerous allergies. Patient will be on prednisone nonetheless and that should help that is indeed the case. Discharge home. Patient does not require hospitalization. Code Visit OBSV Devan AND M: 47083 Observ/hosp same date L3 01/07/18 1314 <Electronically signed by Hi Hensley DO> Date Hi Hensley DO Cosigner Signature: Date (if applicable) CC: Abdias Olguin MD; Hi Hensley DO; Lew Verduzco MD Signed EMERGENCY DEPARTMENT Observed: 01/07/2018 Status: F Source: [place] SUMMARY 9:00 AM [facility] REPOSITORY [facility] Medical Records Department [address] [place] [address] Emergency Department Summary 01/07/18 0857 MR#: [id number] Acct: [id number] Name: CHEY JEFFERS Rep #: [id number] : 1960 57 From: Nory Coker DO PCP: Lew Verduzco MD Status: REG ER - ER Visit Summary Date of Service: 01/07/18 Chief Complaint: [Shortness of breath] History of Present Illness: The patient is a 57 F [resents the emergency department complaint shortness of breath that started several months ago. Patient complains of a lot of coughing and sneezing. Patient states that her oxygen level at times dropping down in the 70s at home. Patient does not normally wear home O2. She is coughing up some yellow sputum. She has had chills but no documented fever. Patient does complain of some chest tightness. Patient does have a history of asthma, COPD, high cholesterol, degenerative disc disease, and fibro-myalgia.] Physical Examination: [HEENT-PERRLA, EOMI. Cranial nerves II through XII grossly intact. TMs clear. Mucous membranes moist. No adenopathy. Cardiovascular-regular rate and rhythm without murmur or ectopy Lungs-diminished breath sounds bilaterally with expiratory wheezes throughout. Mild tachypnea. No accessory muscle use or retractions. Abdomen-normoactive bowel sounds, soft, nontender, no rebound or rigidity, no peritoneal signs. Extremities-intact 4, normal range of motion, normal pulses, atraumatic] Test Results: [EKG obtained arrival shows sinus rhythm with rate of 99 bpm. CBC with differential showed white count of 12.9, Hemoccult was 13.8, hematocrit 45, platelet 332. Chemistries unremarkable other than a slightly depressed potassium at 3.2. Troponin was less than 0.015. Chest x-ray was normal.] Emergency Department Course and Treatment: [Patient was medicated with DuoNeb aerosol as well as Solu-Medrol and Levaquin. She was given 40 medical and potassium chloride p.o.] Treatment Plan: [Admit] Disposition: [Admit] Impression: [COPD exacerbation Hypoxemia] This note was generated with [employer] dictation software. It may contain incorrect words, spelling, and punctuation that were not noted in review of the chart prior to signing ED Disposition - Plan for ED Patient: Chief Complaint: Shortness of Breath Referrals: Lew Verduzco MD [Primary Care Provider] - What to do if you have Problems For any increased pain, shortness of breath, bleeding, nausea or vomiting, chest pain, or any unexpected problems, contact your Primary Care Provider. Call [facility] ([phone]) or report to the closest Emergency Room. Call 911 if necessary. 01/07/18 0900 <Electronically signed by Nory Coker DO> Date Nory Coker DO Cosigner Signature (If Indicated): Date CC: Lew Verduzco MD CBC W/DIFF, AUTOMATED Collected: 01/07/2018 Status: C Source: [place] 7:37 AM [facility] REPOSITORY TYPE CODE TESTS RESULT OUT OF RANGE REFERENCE UNITS LAB L100.1000 4.4-11.0 K/mm3 High WBC 12.9 LAB L100.1200 4.2-5.4 M/mm3 Normal RBC 5.14 LAB L100.1300 12.0-15.0 g/dl Normal HGB 13.8 LAB L100.1400 37-47 % Normal HCT 45.4 LAB L100.1500 81-99 fL Normal MCV 88.3 LAB L100.1600 27.0-32.0 pg Low MCH 26.8 LAB L100.1700 32-36 g/gl Low MCHC 30.4 LAB L100.1810 11.6-14.6 % Normal RDW CV 14.6 LAB L100.1820 35.1-43.9 fl High RDW SD 46.9 LAB L100.1900 150-450 K/mm3 Normal PLT 332 LAB L100.2000 6.2-12.0 fl Normal MPV 9.5 LAB L100.2100 47-70 % Normal NEUT% 61.5 LAB L100.2200 19-41 % Low LY% 16.9 LAB L100.2300 0-10 % Normal MONO% 5.0 LAB L100.2400 0-5 % High EO% 16.1 LAB L100.2500 0-1 % Normal BASO% 0.3 LAB L100.2550 0.0-0.9 % Normal IM GRAN % 0.200 Result Comment: IG% - Immature Granulocytes (promyelocytes, myelocytes and metamyelocytes) > 1% indicates that a LEFT SHIFT is Present. LAB L100.2620 2.0-7.7 X10 3/uL High Absolute Neut 7.9 LAB L100.2720 0.83-4.51 X10 3/ul Normal Absolute Lymph 2.18 LAB L100.4500 Normal SMEAR COMMENT COMMENT Result Comment: SLIDE SCANNED - EOSINOPHILIA. LAB L100.9900 Normal Reviewed PATH REV Result Comment: Leukocytosis. Clinical correlation necessary. Richard De Santiago M.D. 01/09/18 AMENDED REPORT 01/09/18 1417 PATH REV previously reported as: May foll Performed By: #### L100.0100 #### [facility] [address] [place], [address] BASIC METABOLIC Collected: 01/07/2018 Status: F Source: [place] PROFILE ([facility]) 7:37 AM [facility] REPOSITORY TYPE CODE TESTS RESULT OUT OF RANGE REFERENCE UNITS LAB L501.0100 74-106 mg/dL High GLU 113 Result Comment: Fasting Glucose result from 100 to 125 mg/dL suggests IMPAIRED HOMEOSTASIS per A.D.A. criteria. Please note revised GLUCOSE reference range effective 2017. LAB L501.1000 7-18 mg/dL Normal BUN 11 LAB L501.1100 0.55-1.02 mg/dL Normal CREAT,SERUM 0.74 Result Comment: The validity of the calculated GFR AND GFRAA in patients over 70 years has not been determined. Clinical correlation is essential. LAB L501.1110 >60 mL/min Normal EST GFR 86 Result Comment: Non- GFR Calc LAB L501.1115 >60 mL/min Normal EST GFR - AA 104 Result Comment: GFR Calc LAB L501.1255 ml/min Normal Estimated CRCL 55.22 LAB L501.1300 10-20 RATIO Normal BUN/CRE 14.8 LAB L501.2200 8.5-10 mg/dL Low .1 CA 8.4 LAB L501.5300 136-14 mmol/L Normal 5 NA 144 LAB L501.5600 3.5-5. mmol/L Low 1 K 3.2 LAB L501.5900 98-107 mmol/L Normal CL 106 LAB L501.6100 21.0-3 mmol/L Normal 2.0 CO2 29.0 LAB L501.6200 5-15 Normal GAP 9 Performed By: #### L500.2500, L501.4010 #### [facility] [address] [place], [address] TROPONIN-I Collected: 01/07/2018 Status: F Source: [place] 7:37 AM [facility] REPOSITORY TYPE CODE TESTS RESULT OUT OF RANGE REFERENCE UNITS LAB L501.4010 <0.045 ng/mL Normal < 0.015 TROPONIN-I Result Comment: TROPONIN-I EXPECTED VALUES <0.045 Negative 0.045 - 0.590 Consistent with Cardiac Damage > OR = 0.600 Critical Value Not every elevated troponin is indicative of RI. These values should be used with clinical judgement in examining the patient's clinical picture for diagnosis. To establish a diagnosis of RI versus myocardial injury, there must be a demonstrated rise and/or fall in the troponin values, in addition to ischemic symptoms, EKG changes, new regional wall motion abnormality, and/or angiographical evidence. PLEASE NOTE: REFERENCE RANGES EDITED 17 Performed By: #### L500.2500, L501.4010 #### [facility] [address] [place], [address] CHEST 1 VIEW Observed: 01/07/2018 Status: F Source: [place] (PORTABLE) 7:09 AM [facility] REPOSITORY [facility] Imaging Services [address] [place] [address] Chest 1 View (Portable) MR#: [id number] Acct: [id number] Name: ZEYADCHEY L Rep #: [id number] : 1960 F 57 From: Cristofer Etienne MD PCP: Lew Verduzco MD Status: REG ER Study: Chest 1 View (Portable) Date of Exam: 01/07/18 Exam# [id number] Ordering Dr: Nory Coker DO STUDY: X-RAY CHEST REASON FOR EXAM: Female, 57 years old. Dyspnea TECHNIQUE: Single frontal view of the chest. COMPARISON: 05/27/2017 FINDINGS: The lungs are clear and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 presence indicates use of a fentanyl containing drug. LAB UQCODE <11 ng/mL Codeine, Urine <11 LAB UQMORP <10 ng/mL Morphine, Urine <10 Result Comment: Morphine is a metabolite of codeine and heroin. LAB UQDCDN <5 ng/mL Dihydrocodeine, Ur <5 LAB UQHCOD <8 ng/mL Hydrocodone, Urine <8 Result Comment: Hydrocodone is a metabolite of dihydrocodeine. LAB UQOXYC <5 ng/mL Oxycodone, Urine <5 LAB UQHMOR <5 ng/mL Hydromorphone, Ur <5 Result Comment: Hydromorphone is a metabolite of hydrocodone. LAB UQOXYM <5 ng/mL Oxymorphone, Urine <5 Result Comment: Oxymorphone is a metabolite of oxycodone. LAB UQCREA >19 mg/dL Creatinine, >50 Urine LAB UQPH 4-10 pH, Urine 4-10 LAB UQSPGR 1.005-1.020 Specific [place],Ur 1.005-1.020 LAB UQOXID Negative Oxidants, Negative Urine LAB UQSPQ Specimen Specimen Quality quality results within acceptable limits. LAB UQNOTE Note This test is for Medical use only. Result Comment: This test was developed and its performance characteristics determined by [facility] [place] [facility]). It has not been cleared or approved by the FDA. -[facility] is regulated under CLIA as qualified to perform high-complexity testing. This test is used for clinical purposes. It should not be regarded as investigational or for research. Performed By: #### UQNTPP #### [facility] [address] [place], [place] [address] PROGRESS Observed: 07/18/2017 Status: COMPLETED Source: [place] 10:17 [facility] REPOSITORY HNO ID: [id number] Author: Lew Verduzco Service: (none) Author Type: Physician Type: Progress Notes Filed: 07/18/2017 10:54 AM Note Text: This note was created using Oobafitriter. Subjective Chey Jeffers is a 56 year old female for follow up of chronic pain. She was dealing with multiple stressors and was more depressed and anxious. Chronic sinusitis was followed by Dr. Mcclelland. Chronic upper and lower back pains were stable, somewhat worse with weather changes. She was using fentanyl patches with good effect. 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 levoFLOXacin (LEVAQUIN) 500 mg tablet Take 500 mg by mouth once daily. imipramine HCl (TOFRANIL) 25 mg tablet Take 1 tablet by mouth every morning. [START ON 07/26/2017] fentaNYL (DURAGESIC) 25 mcg/hr Apply 1 Patch as directed every 72 hours for 30 days.Earliest Fill Date: 07/26/17 dicyclomine (BENTYL) 10 mg capsule Take 1 capsule by mouth four times daily. clonazePAM (KLONOPIN) 0.5 mg tablet Take 1 tablet by mouth twice daily. lansoprazole (PREVACID) 30 mg capsule take 1 capsule by mouth once daily montelukast (SINGULAIR) 10 mg tablet Take 1 tablet by mouth daily at bedtime. Estradiol (ESTRACE) 0.5 mg tablet Take 1 tablet by mouth once daily. ranitidine (ZANTAC) 150 mg tablet Take 1 tablet by mouth twice daily. sucralfate (CARAFATE) 100 mg/mL suspension Take 10 mL by mouth before meals and at bedtime. (560cc=2wks) ipratropium (ATROVENT) 0.02 % nebulizer solution Use 2.5 mL via nebulizer four times daily as needed for Wheezing/Shortness of Breath. Use over 5-15minutes. Albuterol Sulfate 1.25 mg/3 mL nebulizer solution Use 1 Ampule via nebulizer every 4 hours as needed. fluticasone (FLONASE) 50 mcg/actuation nasal spray Use in the nose. SHAKE WELL before using. Blow nose prior to use. Prime pump before using. LOPERAMIDE HCL (IMODIUM ORAL) Take by mouth as needed. Cholecalciferol, Vitamin D3, (VITAMIN D) 1,000 unit cap Take 1,000 Units by mouth once daily. fexofenadine (NAN) 180 mg ORAL tablet Take one(1) tablet daily. vit e acetate/gly/dimeth/water(CETAPHIL MOISTURIZING LOTION) apply twice daily mucus clearing device(ACAPELLA DEVICE) 10 puffs 4 times daily Imipramine Pamoate 75 mg capsule Take 1 capsule by mouth daily at bedtime. [START ON 08/26/2017] fentaNYL (DURAGESIC) 25 mcg/hr Apply 1 Patch as directed every 72 hours for 30 days.Earliest Fill Date: 08/26/17 [START ON 09/25/2017] fentaNYL (DURAGESIC) 25 mcg/hr Apply 1 Patch as directed every 72 hours for 30 days.Earliest Fill Date: 09/25/17 No current facility-administered medications for this visit. Review of Systems Constitutional: Negative. HENT: Positive for ear pain and postnasal drip. Respiratory: Negative. Cardiovascular: Negative. Gastrointestinal: Negative. Musculoskeletal: Positive for back pain and myalgias. Psychiatric/Behavioral: Positive for dysphoric mood. The patient is nervous/anxious. Objective BP 112/60 (BP Site: Left Arm, BP Position: Sitting, BP Cuff Size: Regular Adult) Pulse 92 Temp 36.7 ?C (98.1 ?F) (Right Tympanic) Resp 18 Wt 45.5 kg (100 lb 3.2 oz) BMI 18.93 kg/m2 Physical Exam Constitutional: No distress. HENT: Right Ear: Tympanic membrane normal. Left Ear: Tympanic membrane normal. Nose: Nose normal. Cardiovascular: Normal heart sounds. Pulmonary/Chest: Breath sounds normal. Musculoskeletal: She exhibits no edema. Psychiatric: Her mood appears anxious. Her speech is rapid and/or pressured. She is agitated. She is not actively hallucinating. She exhibits a depressed mood. She expresses no suicidal plans and no homicidal plans. She is attentive. ASSESSMENT/PLAN: 1. Anxiety and depression - ICD9: 300.00, 311, ICD10: F41.8 (primary diagnosis) Worse. She [facility]. Dose increased. She stopped quetiapine some time back. - IMIPRAMINE 25 MG TABLET. Take one(1) tablet daily in the morning. - IMIPRAMINE PAMOATE 75 MG CAPSULE. Take one(1) tablet daily at bedtime. 2. Pure hypercholesterolemia - ICD9: 272.0, ICD10: E78.00 - good control - Continue current medication. - SIMVASTATIN 40 MG TABLET 3. Asthma with chronic obstructive pulmonary disease (COPD) (HCC) - ICD9: 493.20, ICD10: J44.9 Stable. - Continue current meds - Avoidance of triggers recommended 4. Fibromyalgia - ICD9: 729.1, ICD10: M79.7 Chronic pain. - PAIN PANEL, UR QUANT - FENTANYL 25 MCG/HR TRANSDERMAL PATCH - FENTANYL 25 MCG/HR TRANSDERMAL PATCH - FENTANYL 25 MCG/HR TRANSDERMAL PATCH 5. DDD (degenerative disc disease), lumbar - ICD9: 722.52, ICD10: M51.36 Chronic low back pain - PAIN PANEL, UR QUANT - FENTANYL 25 MCG/HR TRANSDERMAL PATCH - FENTANYL 25 MCG/HR TRANSDERMAL PATCH - FENTANYL 25 MCG/HR TRANSDERMAL PATCH 6. Serrated adenoma of colon - ICD9: 211.3, ICD10: D12.6 - CONSULT TO GASTROENTEROLOGY Lew Verduzco MD CNOV Observed: 07/18/2017 Status: COMPLETED Source: [place] 9:40 AM [facility] REPOSITORY Office Visit (INTMWS) VISHNU JEFFERSA Cecilia ([id number]) 1960 F Date Time Provider Department 07/18/17 9:40 AM LEW VERDUZCO INTDarlynWS During your visit today, we recorded the following information about you: Temperature Pulse Respiration Blood pressure 98.1 degrees 92/minute 18/minute 112/60 Weight 45.5 kg Lew Verduzco MD 07/18/2017 10:54 AM Signed This note was created using NoteWriter. Subjective Cheysobeida Jeffers is a 56 year old female for follow up of chronic pain. She was dealing with multiple stressors and was more depressed and anxious. Chronic sinusitis was followed by Dr. Mcclelland. Chronic upper and lower back pains were stable, somewhat worse with weather changes. She was using fentanyl patches with good effect. 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 levoFLOXacin (LEVAQUIN) 500 mg tablet Take 500 mg by mouth once daily. imipramine HCl (TOFRANIL) 25 mg tablet Take 1 tablet by mouth every morning. [START ON 07/26/2017] fentaNYL (DURAGESIC) 25 mcg/hr Apply 1 Patch as directed every 72 hours for 30 days.Earliest Fill Date: 07/26/17 dicyclomine (BENTYL) 10 mg capsule Take 1 capsule by mouth four times daily. clonazePAM (KLONOPIN) 0.5 mg tablet Take 1 tablet by mouth twice daily. lansoprazole (PREVACID) 30 mg capsule take 1 capsule by mouth once daily montelukast (SINGULAIR) 10 mg tablet Take 1 tablet by mouth daily at bedtime. Estradiol (ESTRACE) 0.5 mg tablet Take 1 tablet by mouth once daily. ranitidine (ZANTAC) 150 mg tablet Take 1 tablet by mouth twice daily. sucralfate (CARAFATE) 100 mg/mL suspension Take 10 mL by mouth before meals and at bedtime. (560cc=2wks) ipratropium (ATROVENT) 0.02 % nebulizer solution Use 2.5 mL via nebulizer four times daily as needed for Wheezing/Shortness of Breath. Use over 5-15minutes. Albuterol Sulfate 1.25 mg/3 mL nebulizer solution Use 1 Ampule via nebulizer every 4 hours as needed. fluticasone (FLONASE) 50 mcg/actuation nasal spray Use in the nose. SHAKE WELL before using. Blow nose prior to use. Prime pump before using. LOPERAMIDE HCL (IMODIUM ORAL) Take by mouth as needed. Cholecalciferol, Vitamin D3, (VITAMIN D) 1,000 unit cap Take 1,000 Units by mouth once daily. fexofenadine (NAN) 180 mg ORAL tablet Take one(1) tablet daily. vit e acetate/gly/dimeth/water(CETAPHIL MOISTURIZING LOTION) apply twice daily mucus clearing device(ACAPELLA DEVICE) 10 puffs 4 times daily Imipramine Pamoate 75 mg capsule Take 1 capsule by mouth daily at bedtime. [START ON 08/26/2017] fentaNYL (DURAGESIC) 25 mcg/hr Apply 1 Patch as directed every 72 hours for 30 days.Earliest Fill Date: 08/26/17 [START ON 09/25/2017] fentaNYL (DURAGESIC) 25 mcg/hr Apply 1 Patch as directed every 72 hours for 30 days.Earliest Fill Date: 09/25/17 No current facility-administered medications for this visit. Review of Systems Constitutional: Negative. HENT: Positive for ear pain and postnasal drip. Respiratory: Negative. Cardiovascular: Negative. Gastrointestinal: Negative. Musculoskeletal: Positive for back pain and myalgias. Psychiatric/Behavioral: Positive for dysphoric mood. The patient is nervous/anxious. Objective BP 112/60 (BP Site: Left Arm, BP Position: Sitting, BP Cuff Size: Regular Adult) Pulse 92 Temp 36.7 ?C (98.1 ?F) (Right Tympanic) Resp 18 Wt 45.5 kg (100 lb 3.2 oz) BMI 18.93 kg/m2 Physical Exam Constitutional: No distress. HENT: Right Ear: Tympanic membrane normal. Left Ear: Tympanic membrane normal. Nose: Nose normal. Cardiovascular: Normal heart sounds. Pulmonary/Chest: Breath sounds normal. Musculoskeletal: She exhibits no edema. Psychiatric: Her mood appears anxious. Her speech is rapid and/or pressured. She is agitated. She is not actively hallucinating. She exhibits a depressed mood. She expresses no suicidal plans and no homicidal plans. She is attentive. ASSESSMENT/PLAN: 1. Anxiety and depression - ICD9: 300.00, 311, ICD10: F41.8 (primary diagnosis) Worse. She [facility]. Dose increased. She stopped quetiapine some time back. - IMIPRAMINE 25 MG TABLET. Take one(1) tablet daily in the morning. - IMIPRAMINE PAMOATE 75 MG CAPSULE. Take one(1) tablet daily at bedtime. 2. Pure hypercholesterolemia - ICD9: 272.0, ICD10: E78.00 - good control - Continue current medication. - SIMVASTATIN 40 MG TABLET 3. Asthma with chronic obstructive pulmonary disease (COPD) (HCC) - ICD9: 493.20, ICD10: J44.9 Stable. - Continue current meds - Avoidance of triggers recommended 4. Fibromyalgia - ICD9: 729.1, ICD10: M79.7 Chronic pain. - PAIN PANEL, UR QUANT - FENTANYL 25 MCG/HR TRANSDERMAL PATCH - FENTANYL 25 MCG/HR TRANSDERMAL PATCH - FENTANYL 25 MCG/HR TRANSDERMAL PATCH 5. DDD (degenerative disc disease), lumbar - ICD9: 722.52, ICD10: M51.36 Chronic low back pain - PAIN PANEL, UR QUANT - FENTANYL 25 MCG/HR TRANSDERMAL PATCH - FENTANYL 25 MCG/HR TRANSDERMAL PATCH - FENTANYL 25 MCG/HR TRANSDERMAL PATCH 6. Serrated adenoma of colon - ICD9: 211.3, ICD10: D12.6 - CONSULT TO GASTROENTEROLOGY Lew Verduzco MD Referring Provider: LEW VERDUZCO [[id number]] Allergies As of Date: 07/18/2017 Noted Allergy Reaction CODEINE 02/15/2005 4 - Hives VICODIN (HYDROCODONE-ACETAMINOPHE*02/15/2005 4 - Hives DEMEROL (MEPERIDINE (PF)) 01/03/2006 2 - Rash BACTRIM (SULFAMETHOXAZOLE-TRIMETH*07/25/2005 Comments: uncertain CELEXA (CITALOPRAM HYDROBROMIDE) 07/25/2005 8 - GI Upset DOXY (DOXYCYCLINE) 06/04/2005 Comments: rash and asthma DUREZOL (DIFLUPREDNATE) 03/04/2014 2 - Rash Environmental allergies [Other] 02/25/2006 Comments: Dogs, molds IBUPROFEN 07/25/2005 12 - Shortness of Breath LEXAPRO (ESCITALOPRAM OXALATE) 07/25/2005 8 - GI Upset LYRICA (PREGABALIN) 04/10/2011 1 - Mental Status Change Comments: dizzy MAPROTILINE 05/16/2009 9 - Itching MUCOMYST (ACETYLCYSTEINE) 10/30/2012 3 - Cough Comments: increase wheezing OXYCODONE 01/17/2011 12 - Shortness of Breath PENICILLINS 01/09/2005 Comments: rash PREDNISONE 07/30/2006 9 - Itching TORADOL (KETOROLAC TROMETHAMINE) 04/06/2011 7 - Swelling TYLENOL (ACETAMINOPHEN) 01/02/2006 5 - Intolerance Comments: asthma ULTRAM (TRAMADOL HCL) 07/25/2005 14 - Other: See Comments Comments: chest pains VANCOMYCIN 01/21/2015 14 - Other: See Comments Comments: Wheezing after taking, legs swollen and tongue swelling and scratchy neck VENLAFAXINE 07/09/2011 8 - GI Upset ZITHROMAX (AZITHROMYCIN) 01/19/2005 9 - Itching MIRTAZAPINE 11/17/2013 14 - Other: See Comments Comments: Hand shakes. Date Reviewed: 07/18/2017 Reviewed by: Veena Herr LPN - Fully Assessed Reason for Visit: F/U 3 Month [443] Primary Visit Diagnosis:Anxiety and depression [F41.8] Other Visit Diagnoses:Pure hypercholesterolemia [E78.00] Asthma with chronic obstructive pulmonary disease (COPD) (HCC) [J44.9] Fibromyalgia [M79.7] DDD (degenerative disc disease), lumbar [M51.36] Serrated adenoma of colon [D12.6] Order(s):simvastatin (ZOCOR) 40 mg tabletTake 1 tablet by mouth daily at bedtime.Disp: 90 tabletRfl: 3 imipramine HCl (TOFRANIL) 25 mg tabletTake 1 tablet by mouth every morning.Disp: 30 tabletRfl: 5 Imipramine Pamoate 75 mg capsuleTake 1 capsule by mouth daily at bedtime.Disp: 30 capsuleRfl: 5 PAIN PANEL, UR QUANT [SQUQNTPP] Order #: [id number] [START ON 07/26/2017] fentaNYL (DURAGESIC) 25 mcg/hrApply 1 Patch as directed every 72 hours for 30 days. Earliest Fill Date: 07/26/17Disp: 10 PatchRfl: 0 [START ON 08/26/2017] fentaNYL (DURAGESIC) 25 mcg/hrApply 1 Patch as directed every 72 hours for 30 days. Earliest Fill Date: 08/26/17Disp: 10 PatchRfl: 0 [START ON 09/25/2017] fentaNYL (DURAGESIC) 25 mcg/hrApply 1 Patch as directed every 72 hours for 30 days. Earliest Fill Date: 09/25/17Disp: 10 PatchRfl: 0 CONSULT TO GASTROENTEROLOGY [[id number]] Order #: [id number]: 1 Prescriptions as of 07/18/2017 Sig: SIMVASTATIN 40 MG TABLET Take 1 tablet by mouth daily * LEVOFLOXACIN 500 MG TABLET Take 500 mg by mouth once perry* IMIPRAMINE 25 MG TABLET Take 1 tablet by mouth every * FENTANYL 25 MCG/HR TRANSDERMA* Apply 1 Patch as directed alissa* DICYCLOMINE 10 MG CAPSULE Take 1 capsule by mouth four * CLONAZEPAM 0.5 MG TABLET Take 1 tablet by mouth twice * LANSOPRAZOLE 30 MG CAPSULE,DE* take 1 capsule by mouth once * MONTELUKAST 10 MG TABLET Take 1 tablet by mouth daily * ESTRADIOL 0.5 MG TABLET Take 1 tablet by mouth once d* RANITIDINE 150 MG TABLET Take 1 tablet by mouth twice * SUCRALFATE 100 MG/ML ORAL SABA* Take 10 mL by mouth before me* IPRATROPIUM BROMIDE 0.02 % SO* Use 2.5 mL via nebulizer four* ALBUTEROL SULFATE 1.25 MG/3 M* Use 1 Ampule via nebulizer ev* FLUTICASONE 50 MCG/ACTUATION * Use in the nose. SHAKE WELL * IMODIUM ORAL Take by mouth as needed. CHOLECALCIFEROL (VITAMIN D3) * Take 1,000 Units by mouth onc* FEXOFENADINE 180 MG TABLET Take one(1) tablet daily. CETAPHIL MOISTURIZING LOTION apply twice daily ACAPELLA DEVICE 10 puffs 4 times daily IMIPRAMINE PAMOATE 75 MG CAPS* Take 1 capsule by mouth daily* FENTANYL 25 MCG/HR TRANSDERMA* Apply 1 Patch as directed alissa* FENTANYL 25 MCG/HR TRANSDERMA* Apply 1 Patch as directed alissa* Problem List As Of Date 07/18/2017 Noted Resolved Asthma with chronic obstructive pulmonary disea*INVALID FOR* CHRONIC CYSTITIS NEC [N30.20] INVALID FOR* Vaginitis and vulvovaginitis, unspecified [N76.*INVALID FOR*02/25/2015 Anxiety and depression [F41.8] INVALID FOR* PURE HYPERCHOLESTEROLEM [E78.00] Acute gastritis [535.0] 02/25/2015 Irritable bowel syndrome [K58.9] Congenital anomalies of foot, 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*INVALID FOR*02/25/2015 ANKYLOSING SPONDYLITIS [M45.9] INVALID FOR* CHRONIC RHINITIS [J31.0] INVALID FOR* Sinusitis, chronic [J32.9] INVALID FOR* Intrinsic asthma, unspecified [J45.909] INVALID FOR*08/31/2016 ESOPHAGEAL REFLUX [K21.9] INVALID FOR* Acute gastritis without mention of hemorrhage [*INVALID FOR*02/25/2015 Fibromyalgia [M79.7] INVALID FOR* COPD (chronic obstructive pulmonary disease) (H*INVALID FOR*07/18/2017 Calcaneal spur [M77.30] INVALID FOR*02/25/2015 Plantar fasciitis [M72.2] INVALID FOR*02/25/2015 HNP (herniated nucleus pulposus), lumbar [M51.2*INVALID FOR*07/11/2016 Myofascial muscle pain [M79.1] INVALID FOR*07/11/2016 DDD (degenerative disc disease), lumbar [M51.36]INVALID FOR* Back pain [M54.9] INVALID FOR*07/11/2016 Osteoporosis [M81.0] INVALID FOR* Abnormal ultrasound of breast [R92.8] INVALID FOR*02/25/2015 Colon polyp [K63.5] INVALID FOR*10/16/2016 Serrated adenoma of colon [D12.6] INVALID FOR* Stress and adjustment reaction [F43.29] INVALID FOR*07/11/2016 Enterocolitis due to Clostridium difficile [A04*INVALID FOR*07/17/2016 Kidney stone on left side [N20.0] INVALID FOR*08/31/2016 Colonic polyp [K63.5] INVALID FOR*03/10/2015 Bilateral renal cysts [N28.1] INVALID FOR*07/11/2016 Abnormal toxicological findings [R89.2] INVALID FOR*01/16/2017 Nasal polyposis [J33.9] INVALID FOR* Menopause syndrome [N95.1] 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 IMIPRAMINE 25 MG TABLET 30 t* 5 07/18/2017 Route: ORAL Sig: Take 1 tablet by mouth every morning. IMIPRAMINE PAMOATE 75 MG CAPSULE 30 c* 5 07/18/2017 Route: ORAL Sig: Take 1 capsule by mouth daily at bedtime. FENTANYL 25 MCG/HR TRANSDERMAL PATCH 10 P* 0 07/26/2017 08/25/2017 Class: Print RX Route: TRANSDERM. Sig: Apply 1 Patch as directed every 72 hours for 30 days. Earliest Fill Date: 07/26/17 FENTANYL 25 MCG/HR TRANSDERMAL PATCH 10 P* 0 08/26/2017 09/25/2017 Class: Print RX Route: TRANSDERM. Sig: Apply 1 Patch as directed every 72 hours for 30 days. Earliest Fill Date: 08/26/17 FENTANYL 25 MCG/HR TRANSDERMAL PATCH 10 P* 0 09/25/2017 10/25/2017 Class: Print RX Route: TRANSDERM. Sig: Apply 1 Patch as directed every 72 hours for 30 days. Earliest Fill Date: 09/25/17 Medications Discontinued During This Encounter QUEtiapine (SEROQUEL) 25 mg tablet 15 t* 5 01/16/2017 07/18/2017 Route: ORAL Sig: Take 0.5 tablets by mouth daily at bedtime. Disc: Discontinued by Patient fentaNYL (DURAGESIC) 25 mcg/hr 10 P* 0 05/27/2017 07/18/2017 Class: Print RX Route: TRANSDERMAL Sig: Apply 1 Patch as directed every 72 hours for 30 days. Disc: Reason for discontinue is not on file. fentaNYL (DURAGESIC) 25 mcg/hr 10 P* 0 11/21/2016 07/18/2017 Class: Print RX Route: TRANSDERMAL Sig: Apply 1 Patch as directed every 72 hours for 30 days. Disc: Reason for discontinue is not on file. fentaNYL (DURAGESIC) 12 mcg/hr pt72 10 P* 0 04/26/2017 07/18/2017 Class: Print RX Route: TRANSDERMAL Sig: Apply 1 Patch as directed every 72 hours for 30 days. Disc: Reason for discontinue is not on file. simvastatin (ZOCOR) 40 mg tablet 90 t* 1 04/01/2017 07/18/2017 Route: ORAL Sig: Take 1 tablet by mouth daily at bedtime. Disc: Reason for discontinue is not on file. imipramine HCl (TOFRANIL) 25 mg tabl* 270 * 4 03/04/2017 07/18/2017 Sig: take 1 tablet by mouth three times a day Disc: Reason for discontinue is not on file. fentaNYL (DURAGESIC) 25 mcg/hr 10 P* 0 06/26/2017 07/18/2017 Class: Print RX Route: TRANSDERMAL Sig: Apply 1 Patch as directed every 72 hours for 30 days. Disc: Reason for discontinue is not on file. fentaNYL (DURAGESIC) 25 mcg/hr 10 P* 0 02/24/2017 07/18/2017 Class: Print RX Route: TRANSDERMAL Sig: Apply 1 Patch as directed every 72 hours for 30 days. Disc: Reason for discontinue is not on file. Disposition: Return in about 3 months (around 10/18/2017). Follow-up and Disposition History Recorded Encounter Status:Closed by LEW VERDUZCO MD on 07/18/17 12 LEAD ELECTROCARDIOGRAM Observed: 05/30/2017 Status: F Source: [place] 1:26 PM [facility] REPOSITORY [facility] Cardiovascular Services [address] [place] [address] 12 Lead EKG 05/27/17 0808 MR#: [id number] Acct: [id number] Name: CHEY JEFFERS Rep #: [id number] : 1960 56 From: Sterling Alejandro MD Attending Dr: Status: DEP ER Ordering Dr: Andres Tyson MD Date: 05/27/17 Location: ED Sex: F C Admitted: Test Reason : SOB Blood Pressure : / mmHG Vent. Rate : 115 BPM Atrial Rate : 115 BPM P-R Int : 130 ms QRS Dur : 064 ms QT Int : 306 ms P-R-T Axes : 064 071 067 degrees QTc Int : 423 ms Sinus tachycardia Otherwise normal ECG Confirmed by STERLING ALEJANDRO ([id number]), acquisitions editor JUAN MURPHY ([id number]) on 05/30/2017 1:26:24 PM Referred By: JOSE R Confirmed By:STERLING ALEJANDRO 05/30/17 1326 Date Sterling Alejandro MD CC: Lew Verduzco MD Signed EMERGENCY DEPARTMENT Observed: 05/27/2017 Status: F Source: [place] SUMMARY 4:47 PM [facility] Medical Records Department [address] [place] [address] Emergency Department Summary 05/27/17 0823 MR#: [id number] Acct: [id number] Name: CHEY JEFFERS Rep #: [id number] : 1960 56 From: Andres Tyson MD PCP: Lew Verduzco MD Status: DEP ER - ER Visit Summary Date of Service: 05/27/17 Chief Complaint: Asthma exacerbation History of Present Illness: The patient is a [address] Verduzco. She reports she has shortness of breath that began this morning. It is severe. It is worse when she walks around or coughs. She is taken her albuterol inhaler at home with transient relief. She also took a 4 mg Medrol Dosepak today 2. Patient reports that she has a cough from sinus drainage that is productive of clear sputum without blood. She has had chills but no fever. She has chest tightness that began this morning as well. She reports that this is typical of her asthma when her allergies act up. Physical Examination: Vitals: Stable. Afebrile. General: Well-nourished and well-developed. Head: Normocephalic atraumatic. Neck: Supple, no lymphadenopathy. No JVD. Nontender. Cardiovascular: Tachycardic regular rhythm. No murmurs. Respiratory: No respiratory distress. Moderate wheezing bilaterally with decreased air movement. Abdominal: Soft, nontender, nondistended, normal bowel sounds. No guarding, rebound, or peritoneal signs. Back: Nontender. Extremities: Nontender, no edema. Skin: Normal color, no rash. Neurologic: Alert and oriented 3. Cranial nerves II through XII are intact. Normal strength and sensation. Psych: Normal affect. Test Results: CBC is marked for a white count of 18 and platelets of 491. Chem-7 is marked potassium 3.4. EKG is sinus tach at [address] changes. Chest x-ray shows chronic changes. Emergency Department Course and Treatment: Had an IV placed. She was given a liter normal saline. She is given albuterol Atrovent aerosols. She has multiple allergies and after long discussion she was given a dose of Kenalog IM. Repeat exam shows her breathing to be much improved. She feels well and would like to go home. Treatment Plan: She is instructed to complete the Levaquin that she is on for a sinus infection. She has an albuterol MDI and nebulizer at home. She is instructed to use these as needed. Follow-up Dr. Verduzco in 3-5 days if not improving. Return to the emergency department for any worsening symptoms. Disposition: To home in improved and stable condition. Impression: 1. URI. 2. Asthma exacerbation. This note was generated with [employer] dictation software. It may contain incorrect words, spelling, and punctuation that were not noted in review of the chart prior to signing ED Disposition - Plan for ED Patient: Chief Complaint: Shortness of Breath Instructions: ED Bronchitis Asthmatic Prescriptions: ProMETHAzine [Phenergan] 25 mg PO Q6H PRN PRN #10 tablet PRN Reason: Nausea Referrals: Lew Verduzco MD [Primary Care Provider] - 3-5 Days if not improving What to do if you have Problems For any increased pain, shortness of breath, bleeding, nausea or vomiting, chest pain, or any unexpected problems, contact your Primary Care Provider. Call [facility] ([phone]) or report to the closest Emergency Room. Call 911 if necessary. 05/27/17 1647 <Electronically signed by Andres Tyson MD> Date [facility] Tyson [facility] Signature (If Indicated): Date CC: Lew Verduzco MD CHEST PA AND LATERAL Observed: 05/27/2017 Status: F Source: [place] 7:53 AM [facility] REPOSITORY [facility] Imaging Services [address] [place] [address] Chest PA and Lateral MR#: [id number] Acct: [id number] Name: CHEY JEFFERS Rep #: [id number] : 1960 F 56 From: Hoang Oquendo MD PCP: Lew Verduzco MD Status: REG ER Study: Chest PA and Lateral Date of Exam: 05/27/17 Exam# [id number] Ordering Dr: Andres Tyson MD STUDY: X-RAY CHEST REASON FOR EXAM: Female, 56 years old. History of COPD. Cough and shortness of breath TECHNIQUE: PA and lateral views of the chest. COMPARISON: Chest x-ray on August 10, 2016. FINDINGS: EKG leads are in place The lungs are clear and hyperexpanded. There is no demonstrated pleural abnormality. Normal size heart. Normal mediastinum and sharee. Normal visualized pulmonary arteries. Normal visualized aortic arch and descending thoracic aorta. Normal visualized thoracic spine. Normal visualized ribs, clavicles, and shoulders. There is no demonstrated abnormality of the visualized soft tissue structures of the upper abdomen. RAD/Chest PA and Lateral IMPRESSION: Stable chest. No signs of acute disease. 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 CBC W/DIFF, AUTOMATED Collected: 05/27/2017 Status: F Source: [place] 7:45 AM [facility] REPOSITORY TYPE CODE TESTS RESULT OUT OF RANGE REFERENCE UNITS LAB L100.1000 4.4-11.0 K/mm3 High WBC 18.0 LAB L100.1200 4.2-5.4 M/mm3 Normal RBC 4.80 LAB L100.1300 12.0-15.0 g/dl Normal HGB 13.4 LAB L100.1400 37-47 % Normal HCT 44.0 LAB L100.1500 81-99 fL Normal MCV 91.7 LAB L100.1600 27.0-32.0 pg Normal MCH 27.9 LAB L100.1700 32-36 g/gl Low MCHC 30.5 LAB L100.1810 11.6-14.6 % Normal RDW CV 13.2 LAB L100.1820 35.1-43.9 fl Normal RDW SD 43.9 LAB L100.1900 150-450 K/mm3 High PLT 491 LAB L100.2000 6.2-12.0 fl Normal MPV 9.7 LAB L100.2100 47-70 % Normal NEUT% 67.6 LAB L100.2200 19-41 % Normal LY% 22.0 LAB L100.2300 0-10 % Normal MONO% 5.8 LAB L100.2400 0-5 % Normal EO% 3.9 LAB L100.2500 0-1 % Normal BASO% 0.1 LAB L100.2550 0.0-0.9 % Normal IM GRAN % 0.600 Result Comment: IG% - Immature Granulocytes (promyelocytes, myelocytes and metamyelocytes) > 1% indicates that a LEFT SHIFT is Present. LAB L100.2620 2.0-7.7 X10 3/uL High Absolute Neut 12.2 LAB L100.2720 0.83-4.51 X10 3/ul Normal Absolute Lymph 3.95 Performed By: #### L100.0100 #### [facility] [address] [place], [address] BASIC METABOLIC Collected: 05/27/2017 Status: F Source: [place] PROFILE ([facility]) 7:45 AM [facility] REPOSITORY TYPE CODE TESTS RESULT OUT OF RANGE REFERENCE UNITS LAB L501.0100 70-110 mg/dL Normal GLU 101 LAB L501.1000 7-18 mg/dL Normal BUN 14 LAB L501.1100 0.55-1.02 mg/dL Normal 0.84 CREAT,SERUM Result Comment: The validity of the calculated GFR AND GFRAA in patients over 70 years has not been determined. Clinical correlation is essential. LAB L501.1110 >60 mL/min Normal EST GFR 75 Result Comment: Non- GFR Calc LAB L501.1115 >60 mL/min Normal EST GFR - AA 90 Result Comment: GFR Calc LAB L501.1255 ml/min Normal Estimated CRCL 56.43 LAB L501.1300 10-20 RATIO Normal BUN/CRE 16.7 LAB L501.2200 8.5-10 mg/dL Normal .1 CA 8.9 LAB L501.5300 136-14 mmol/L Normal 5 NA 141 LAB L501.5600 3.5-5. mmol/L Low 1 K 3.4 LAB L501.5900 98-107 mmol/L Normal CL 103 LAB L501.6100 21.0-3 mmol/L Normal 2.0 CO2 29.0 LAB L501.6200 5-15 Normal GAP 9 Performed By: #### L500.2500 #### [facility] [address] [place], [address] OBSOLETE Observed: 05/02/2017 Status: COMPLETED Source: [place] 12:00 AM [facility] REPOSITORY Refill (INTMWS) CHEY JEFFERS ([id number]) 1960 F Date Time Provider Department 05/02/17 LEW VERDUZCO INTWS During your visit today, we recorded the following information about you: Jazlyn Erlinda Psr 05/02/2017 9:34 AM Signed Patient has been identified by name and date of : Yes RX INSTRUCTIONS: Patient only has four tablets left of this medication and therefore is requesting that this prescription be sent to her pharmacy today (05/02/2017) as soon as possible. Patient aware RX will be sent to pharmacy. No need to notify patient. Any questions/problems, call patient at [phone]. Jazlyn Coffey Psr Jeni Jackson LPN 05/02/2017 11:12 AM Signed Called the pharmacy and pt did take the printed rx from October there but it is . rx is needed. Flaca Monteiro Cma 05/02/2017 3:50 PM Signed The following approved medication requests have been transmitted electronically. Signed Prescriptions Disp Refills dicyclomine (BENTYL) 10 mg capsule 360 capsule 4 Sig: Take 1 capsule by mouth four times daily. OLIVER: No Authorizing Provider: ROLANDA DALTON Mica Patcher Allergies As of Date: 05/02/2017 Noted Allergy Reaction CODEINE 02/15/2005 4 - Hives VICODIN (HYDROCODONE-ACETAMINOPHE*02/15/2005 4 - Hives DEMEROL (MEPERIDINE (PF)) 01/03/2006 2 - Rash BACTRIM (SULFAMETHOXAZOLE-TRIMETH*07/25/2005 Comments: uncertain CELEXA (CITALOPRAM HYDROBROMIDE) 07/25/2005 8 - GI Upset DOXY (DOXYCYCLINE) 06/04/2005 Comments: rash and asthma DUREZOL (DIFLUPREDNATE) 03/04/2014 2 - Rash Environmental allergies [Other] 02/25/2006 Comments: Dogs, molds IBUPROFEN 07/25/2005 12 - Shortness of Breath LEXAPRO (ESCITALOPRAM OXALATE) 07/25/2005 8 - GI Upset LYRICA (PREGABALIN) 04/10/2011 1 - Mental Status Change Comments: dizzy MAPROTILINE 05/16/2009 9 - Itching MUCOMYST (ACETYLCYSTEINE) 10/30/2012 3 - Cough Comments: increase wheezing OXYCODONE 01/17/2011 12 - Shortness of Breath PENICILLINS 01/09/2005 Comments: rash PREDNISONE 07/30/2006 9 - Itching TORADOL (KETOROLAC TROMETHAMINE) 04/06/2011 7 - Swelling TYLENOL (ACETAMINOPHEN) 01/02/2006 5 - Intolerance Comments: asthma ULTRAM (TRAMADOL HCL) 07/25/2005 14 - Other: See Comments Comments: chest pains VANCOMYCIN 01/21/2015 14 - Other: See Comments Comments: Wheezing after taking, legs swollen and tongue swelling and scratchy neck VENLAFAXINE 07/09/2011 8 - GI Upset ZITHROMAX (AZITHROMYCIN) 01/19/2005 9 - Itching MIRTAZAPINE 11/17/2013 14 - Other: See Comments Comments: Hand shakes. Date Reviewed: 04/17/2017 Reviewed by: Phyllis Hernandez LPN - Fully Assessed Reason for Visit: Refill Request [94] Visit Diagnosis:Irritable bowel syndrome, unspecified type [K58.9] Order(s):dicyclomine (BENTYL) 10 mg capsuleTake 1 capsule by mouth four times daily.Disp: 360 capsuleRfl: 4 Prescriptions as of 05/02/2017 Sig: DICYCLOMINE 10 MG CAPSULE Take 1 capsule by mouth four * FENTANYL 12 MCG/HR TRANSDERMA* Apply 1 Patch as directed alissa* FENTANYL 25 MCG/HR TRANSDERMA* Apply 1 Patch as directed alissa* FENTANYL 25 MCG/HR TRANSDERMA* Apply 1 Patch as directed alissa* CLONAZEPAM 0.5 MG TABLET Take 1 tablet by mouth twice * LANSOPRAZOLE 30 MG CAPSULE,DE* take 1 capsule by mouth once * SIMVASTATIN 40 MG TABLET Take 1 tablet by mouth daily * IMIPRAMINE 25 MG TABLET take 1 tablet by mouth three * QUETIAPINE 25 MG TABLET Take 0.5 tablets by mouth perry* MONTELUKAST 10 MG TABLET Take 1 tablet by mouth daily * ESTRADIOL 0.5 MG TABLET Take 1 tablet by mouth once d* RANITIDINE 150 MG TABLET Take 1 tablet by mouth twice * SUCRALFATE 100 MG/ML ORAL SABA* Take 10 mL by mouth before me* IPRATROPIUM BROMIDE 0.02 % SO* Use 2.5 mL via nebulizer four* ALBUTEROL SULFATE 1.25 MG/3 M* Use 1 Ampule via nebulizer ev* FLUTICASONE 50 MCG/ACTUATION * Use in the nose. SHAKE WELL * IMODIUM ORAL Take by mouth as needed. CHOLECALCIFEROL (VITAMIN D3) * Take 1,000 Units by mouth onc* FEXOFENADINE 180 MG TABLET Take one(1) tablet daily. 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*INVALID FOR*02/25/2015 ANKYLOSING SPONDYLITIS [M45.9] INVALID FOR* CHRONIC RHINITIS [J31.0] INVALID FOR* Sinusitis, chronic [J32.9] INVALID FOR* Intrinsic asthma, unspecified [J45.909] INVALID FOR*08/31/2016 ESOPHAGEAL REFLUX [K21.9] INVALID FOR* Acute gastritis without mention of hemorrhage [*INVALID FOR*02/25/2015 Fibromyalgia [M79.7] INVALID FOR* COPD (Chronic Obstructive Pulmonary Disease) [J*INVALID FOR* Calcaneal spur [M77.30] INVALID FOR*02/25/2015 Plantar fasciitis [M72.2] INVALID FOR*02/25/2015 HNP (herniated nucleus pulposus), lumbar [M51.2*INVALID FOR*07/11/2016 Myofascial muscle pain [M79.1] INVALID FOR*07/11/2016 DDD (degenerative disc disease), lumbar [M51.36]INVALID FOR* Back pain [M54.9] INVALID FOR*07/11/2016 Osteoporosis [M81.0] INVALID FOR* Abnormal ultrasound of breast [R92.8] INVALID FOR*02/25/2015 Colon polyp [K63.5] INVALID FOR*10/16/2016 Serrated adenoma of colon [D12.6] INVALID FOR* Stress and adjustment reaction [F43.29] INVALID FOR*07/11/2016 Enterocolitis due to Clostridium difficile [A04*INVALID FOR*07/17/2016 Kidney stone on left side [N20.0] INVALID FOR*08/31/2016 Colonic polyp [K63.5] INVALID FOR*03/10/2015 Bilateral renal cysts [N28.1] INVALID FOR*07/11/2016 Abnormal toxicological findings [R89.2] INVALID FOR*01/16/2017 Nasal polyposis [J33.9] INVALID FOR* Menopause syndrome [N95.1] INVALID FOR* 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 Medications Discontinued During This Encounter dicyclomine (BENTYL) 10 mg capsule 360 * 4 10/16/2016 05/02/2017 Class: Print RX Route: ORAL Sig: Take 1 capsule by mouth four times daily. Disc: Reason for discontinue is not on file. Encounter Status:Closed by FLACA MONTEIRO CMA on 05/02/17 ALLERGIES ALLERGIES DATE TYPE / CODE NAME / CODE REACTION SEVERITY SOURCE Drug aspirin/[id number] Anaphylaxis SV [place] 8 Allergy/889149228 (RXNORM) [facility]ly [facility] (SNOMED CT) Hospital Repository Drug sulfamethoxazole/F Other Unknown [place] 8 Allergy/846512089 [id number](RXNORM) [facility] (SNOMED [facility] Repository Drug mirtazapine/E67516 Other Unknown [place] 8 Allergy/842648658 6054(RXNORM) Formerly [facility] (SNOMED CT) Hospital Repository Drug meperidine Rash Unknown [place] 8 Allergy/319230483 HCl/C021963345(RXN [facility] (SNOMED [facility]) [facility]) Hospital Repository Drug hydrocodone Hives Unknown [place] 8 Allergy/704809492 bitartrate/Z134020 [facility] (SNOMED CT) 555(RXNORM) Hospital Repository Drug nitrofurantoin Diarrhea Unknown [place] 8 Allergy/533433279 macrocrystalline/F [facility] (SNOMED CT) 015396961(RXNORM) Hospital Repository Drug ketorolac Swelling Unknown [place] 8 Allergy/507877334 tromethamine/F0000 [facility] (SNOMED [facility]) [address](RXNORM) Hospital Repository Drug tramadol Chest tightness Unknown [place] 8 Allergy/756293592 HCl/Z441434539(RXN [facility] (SNOMED [facility]) OR) Hospital Repository Drug venlafaxine Nausea/Vom/Diar Unknown [place] 8 Allergy/619479848 HCl/I186517035(RXN de[facility] (SNOMED [facility]) OR) Hospital Repository Drug citalopram Nausea/Vom/Diar Unknown [place] 8 Allergy/854400624 hydrobromide/F0000 debora [facility] (SNOMED [facility]) [address]165(RXNORM) Hospital Repository Drug escitalopram Nausea/Vom/Diar Unknown [place] 8 Allergy/355870999 oxalate/[id number] [facility] (SNOMED CT) (RXNORM) Hospital Repository Drug Penicillins/V46793 Rash Unknown [place] 8 Allergy/444823224 0476(RXNORM) [facility]ly [facility] (SNOMED CT) Hospital Repository Drug acetylcysteine/F00 ITCHING, Unknown [place] 8 Allergy/425497720 8576167(RXNORM) REDNESS Formerly [facility] (SNOMED CT) Hospital Repository Drug codeine/[id number] Hives Unknown [place] 8 Allergy/739586374 (RXNORM) [facility]ly [facility] (SNOMED CT) Hospital Repository Drug oxycodone/V7245699 Hives Unknown [place] 8 Allergy/722718279 58(RXNORM) [facility]ly [facility] (SNOMED CT) Hospital Repository Drug acetaminophen/F006 MAKES MY CHEST Unknown [place] 8 Allergy/062167953 839756(RXNORM) HURT [facility]ly [facility] (SNOMED CT) Hospital Repository Drug prednisone/D032132 Itching Unknown [place] 8 Allergy/604635327 164(RXNORM) [facility]ly [facility] (OMED CT) Hospital Repository Drug ibuprofen/I1148206 Shortness of Unknown [place] 8 Allergy/599592773 77(RXNORM) breath [facility]ly [facility] (SNOMED CT) Hospital Repository Drug doxycycline/Q63244 Rash Unknown [place] 8 Allergy/849704488 2748(RXNORM) [facility]ly [facility] (OMED CT) Hospital Repository Drug nitrofurantoin/F00 Diarrhea Unknown [place] 8 Allergy/013460741 7392541(RXNORM) [facility]ly [facility] (OMED CT) Hospital Repository Drug trimethoprim/F0060 Unknown Unknown [place] 8 Allergy/739432352 35588(RXNORM) [facility]ly [facility] (SNOMED CT) Hospital Repository Drug ciprofloxacin/F006 Hives Unknown [place] 8 Allergy/046693094 178978(RXNORM) [facility]ly [facility] (SNOMED CT) Hospital Repository Drug azithromycin/F0060 Itching Unknown [place] 8 Allergy/925583076 93331(RXNORM) [facility]ly [facility] (SNOMED CT) Hospital Repository Drug budesonide/H025303 Rash Unknown [place] 8 Allergy/050756150 214(RXNORM) [facility]ly [facility] (SNOMED CT) Hospital Repository Drug maprotiline/G97782 Itching Unknown [place] 8 Allergy/248168583 4608(RXNORM) [facility]ly [facility] (SNOMED CT) Hospital Repository Drug vancomycin/Z625063 Swelling Unknown [place] 8 Allergy/567765325 866(RXNORM) [facility]ly [facility] (SNOMED CT) Hospital Repository Drug difluprednate/F006 Rash Unknown [place] 8 Allergy/930664257 812361(RXNORM) [facility]ly [facility] (SNOMED CT) Hospital Repository Drug pregabalin/T223779 Swelling Unknown [place] 8 Allergy/352357727 083(RXNORM) [facility] (SNOMED CT) Hospital Repository DRUG VANCOMYCIN OTHER: SEE C [place] 5 INGREDI/061066047 [facility] (SNOMED [facility]) [place] Repository DRUG DIFLUPREDNATE RASH [facility] 4 INGREDI/541885724 [facility] (SNOMED CT) [place] Repository DRUG MIRTAZAPINE OTHER: SEE C Low [place] 4 INGREDI/246759459 [facility] (SNOMED CT) [place] Repository DRUG ACETYLCYSTEINE COUGH [facility] 3 INGREDI/496472373 [facility] (SNOMED CT) [place] Repository DRUG VENLAFAXINE GI UPSET [facility] 2 INGREDI/060773057 [facility] (SNOMED [facility]) [place] [facility] DRUG PREGABALIN Mental Chg [facility] 1 INGREDI/948460733 [facility] (SNOMED [facility]) [place] [facility] DRUG KETOROLAC SWELLING [facility] 1 INGREDI/915019588 TROMETHAMINE [facility] (SNOMED [facility]) [place] [facility] DRUG OXYCODONE SHORTNESS OF [facility] 1 INGREDI/757381344 [facility] (SNOMED [facility]) [place] [facility] DRUG MAPROTILINE ITCHING [facility] 0 INGREDI/277158798 [facility] (SNOMED [facility]) [place] [facility] DRUG PREDNISONE ITCHING [facility] 7 INGREDI/973305605 [facility] (SNOMED CT) [place] Repository Drug SALICYLATES SHORTNESS OF [facility] 7 Class/731939688(S [facility] NOMED [facility]) [place] Repository Miscellaneous OTHER [place] 6 Allergy/468096047 [facility] (SNOMED CT) [place] Repository DRUG/142565617(SN MEPERIDINE (PF) RASH Med [place] [address]) [facility] [place] Repository DRUG ACETAMINOPHEN INTOLERANCE [place] 6 INGREDI/525840237 [facility] (SNOMED CT) [place] Repository DRUG/733740098(SN SULFAMETHOXAZOLE-T [place] [address]) RIMETHOPRIM [facility] [place] Repository DRUG CITALOPRAM GI UPSET [place] 6 INGREDI/041848694 HYDROBROMIDE [facility] (SNOMED [facility]) [place] Repository DRUG IBUPROFEN SHORTNESS OF [place] 6 INGREDI/873497003 [facility] (SNOMED CT) [place] Repository DRUG ESCITALOPRAM GI UPSET [place] 6 INGREDI/671354582 OXALATE [facility] (SNOMED CT) [place] Repository DRUG TRAMADOL HCL OTHER: SEE C [place] 6 INGREDI/825822271 [facility] (SNOMED CT) [place] Repository DRUG DOXYCYCLINE [place] 6 INGREDI/904573908 [facility] (SNOMED CT) [place] Repository DRUG CODEINE HIVES High [place] 5 INGREDI/444042626 [facility] (SNOMED CT) [place] Repository DRUG/488339550(SN HYDROCODONE-ACETAM HIVES High [place] [address]) INOPHEN [facility] [place] Repository DRUG AZITHROMYCIN ITCHING [place] 5 INGREDI/548406645 [facility] (SNOMED CT) [place] Repository Drug PENICILLINS [place] [facility] Class/436519244(S [facility] NOMED [facility]) [place] Repository ENCOUNTERS ENCOUNTERS ADMIT/DISCHARGE ACCOUNT ADMITTING ENCOUNTER LOCATION SOURCE NUMBER CLASS 04/19/2018/04/19/20 [id number] Ambulatory [address] Main [place] Repository 04/17/2018/04/18/20 [id number] Ambulatory [address] Main [place] Repository 04/17/2018/04/17/20 [id number] Ambulatory [address] Main [place] Repository 04/17/2018/04/18/20 [id number] Ambulatory [facility] [place] Repository 04/14/2018/04/21/20 [id number] Ambulatory [place] [facility] [place] Repository 04/11/2018/04/11/20 [id number] Ambulatory [place] [facility] Main [place] Repository 04/11/2018/04/11/20 [id number] Ambulatory [place] 18 [facility] Main [place] Repository 04/07/2018/04/07/20 [id number] Ambulatory [address] ing:ENRoom: Repository AC10 04/02/2018/04/03/20 [id number] Ambulatory [address] Main [place] Repository 04/02/2018/04/02/20 [id number] Ambulatory [address] Main [place] Repository 03/28/2018/03/28/20 [id number] Ambulatory [address] Main [place] Repository 03/25/2018/04/04/20 [id number] Ambulatory [address] Main [place] Repository 03/25/2018/03/25/20 [id number] Ambulatory [address] Main [place] Repository 03/25/2018/03/26/20 [id number] Ambulatory [address] Main [place] Repository 03/17/2018/03/17/20 [id number] Ambulatory [address] Main [place] Repository 03/17/2018/03/19/20 [id number] Ambulatory [address] Main [place] Repository 02/14/2018 [id number] Ambulatory [facility] ing:LABSPEC Repository 01/31/2018/02/01/20 [id number] Ambulatory [place] [facility] Main [place] Repository 01/27/2018/01/28/20 [id number] Ambulatory [address] Main [place] Repository 01/27/2018/01/28/20 [id number] Ambulatory [address] Main [place] Repository 01/27/2018/01/29/20 [id number] Ambulatory [address] Main [place] Repository 01/16/2018/01/22/20 [id number] Ambulatory [address] Main [place] Repository 01/07/2018/01/08/20 [id number] [facility] [address] ing:[id number]: Repository [id number]: 1 01/07/2018 [id number] BMSBuilding:Joaquin Rucker MS.WIP [facility] Repository 10/28/2017/10/29/19 [id number] Ambulatory [address] Repository 10/28/2017/10/30/19 [id number] Ambulatory [address] Repository 07/29/2017/07/30/19 [id number] Ambulatory [address] Repository 07/18/2017/07/19/19 [id number] Ambulatory [address] Repository 05/27/2017/05/27/19 [id number] Emergency Chaim Chaim [address] [place] [address] ing:ED Repository PAYERS PAYERS ENCOUNTER GUARANTOR PAYER SUBSCRIBER SOURCE 04/07/2018 CHEY L Primary CHEY L Streeter [id number] Insurance:[place] MIZERDOB: [facility] [id number] [facility] [place] Repository 13999Lcj: (330) Number: [phone] () [id number] Date: [place], [place] [id number]: 04/07/2018 Secondary NOT GIVENUNK Chaim Insurance:SELF PAY [facility] Number: Effective Repository Date:2018-02-03 02/14/2018 CHEY L Primary CHEY L Chaim [id number] Insurance:[place] MIZERDOB: [facility] [id number] [facility] [place] Repository 28932Qwl: (330) Number: [phone] () [id number] Date: [place], [place] [id number]: 02/14/2018 Secondary NOT GIVENUNK Streeter Insurance:SELF PAY [facility] Number: Effective Repository Date:2018-02-14 01/07/2018 CHEY L Primary CHEY L Chaim [id number] Insurance[facility] [facility] [id number] [facility] [place] Repository 36809Eqo: (330) Number: [phone] () [id number] Date: [place], [place] [id number]: 01/07/2018 Secondary NOT GIVENUNK Chaim Insurance:SELF PAY [facility] Number: Effective Repository Date:2018-01-07 01/07/2018 Chey L Primary CHEY L Chaim [id number] Insurance:[place] MIZERDOB: [facility] C[facility] [id number] [facility] [place] Repository [address]Orl: (330) Number: [phone] () [id number] Date: [place], [place] [id number]: 01/07/2018 Secondary NOT GIVENUNK Chaim Insurance:SELF PAY [facility] Number: Effective Repository Date:2018-01-07 05/27/2017 Chey L Primary CHEY L Chaim [id number] Insurance:[place] MIZERDOB: [facility] SECURE CARE [id number] [facility] [place] Repository 485[address]Kdk: (330) Number: [phone] () [id number] Date: [place], [place] [address]RP: 05/27/2017 Secondary NOT GIVENUNK Chaim Insurance:SELF PAY [facility] Number: Effective Repository Date:2017-05-27
== END 2018-04-07 14:38 | disposition home or self-care (01) ==
LOC: EN 10:39 → AC 10:40
PROVIDERS: Family Provider Internal Medicine; PCP Internal Medicine; Referring Provider Surgery; Visit Provider Surgery
PROC: 0DJD8ZZ Inspection of Lower Intestinal Tract, Via Natural or Artificial Opening Endoscopic (ICD-10-PCS; CPT 45378; principal; 2018-04-07 11:55)
DX: Z12.11 Encounter for screening for malignant neoplasm of colon (principal); K29.70 Gastritis, unspecified, without bleeding; R13.14 Dysphagia, pharyngoesophageal phase; K64.9 Unspecified hemorrhoids; Z86.010 Personal history of colon polyps; F41.9 Anxiety disorder, unspecified; F32.9 Major depressive disorder, single episode, unspecified; J44.9 Chronic obstructive pulmonary disease, unspecified; K21.9 Gastro-esophageal reflux disease without esophagitis; E78.00 Pure hypercholesterolemia, unspecified; Z79.52 Long term (current) use of systemic steroids; Z80.0 Family history of malignant neoplasm of digestive organs; Z87.442 Personal history of urinary calculi; Z79.891 Long term (current) use of opiate analgesic; Z79.51 Long term (current) use of inhaled steroids; Z79.899 Other long term (current) drug therapy
CPT/HCPCS: 43239; 45380; 88305; 88313; 88342; J7120

== ENCOUNTER → 2018-04-30 15:41 | Outpatient (CLI) | payer MEDICARE, SELFPAY ==
[2018-04-07 11:18] VITALS: BMI 17.2
== END ==
PROVIDERS: Family Provider Internal Medicine; PCP Internal Medicine; Referring Provider Otolaryngology Otolaryngology/Facial Plastic Surgery; Visit Provider Otolaryngology Otolaryngology/Facial Plastic Surgery
DX: J32.9 Chronic sinusitis, unspecified (principal)
CPT/HCPCS: 87070; 87077; 87106; 87205

== ENCOUNTER → 2019-02-27 15:44 | Outpatient (CLI) | payer MEDICARE, SELFPAY | PROVIDERS: Family Provider Internal Medicine; PCP Internal Medicine; Referring Provider Otolaryngology Otolaryngology/Facial Plastic Surgery; Visit Provider Otolaryngology Otolaryngology/Facial Plastic Surgery | DX: J32.9 Chronic sinusitis, unspecified (principal) | CPT/HCPCS: 87070; 87077; 87186; 87205 ==

== ENCOUNTER → 2020-06-17 | Outpatient (CLI) | payer MEDICARE, SELFPAY | END | disposition home or self-care (01) | LOC: LABSPEC 15:24 | PROVIDERS: PCP Internal Medicine; Referring Provider Otolaryngology; Visit Provider Otolaryngology | DX: J38.2 Nodules of vocal cords (principal); J32.9 Chronic sinusitis, unspecified | CPT/HCPCS: 87070; 87205 ==

== ENCOUNTER 2020-08-29 11:14 | Emergency (ER) | payer MEDICARE, SELFPAY ==
[2020-08-29 11:15] VITALS: BP 120/51; PULSE 104; RESP 18; TEMP 36.4; O2SAT 97; BMI 25.2
--- NOTE | 2020-08-29 12:06 | CT_ITS ---
STUDY: CT BRAIN WITHOUT CONTRAST REASON FOR EXAM: Female, 59 years old. Trauma. Laceration to the posterior aspect of the head. RADIATION DOSAGE (If Supplied By Facility): CTDIvol = ( 44.99 ) mGy, DLP = ( 745.49 ) mGycm TECHNIQUE: Transaxial CT imaging of the brain was performed without administration of intravenous contrast material. Individualized dose optimization techniques were used for this CT. COMPARISON: No relevant priors. FINDINGS: Normal soft tissue structures. Normal calvarium. Normal size ventricles and extra-axial spaces for the patient''s age. Normal white matter tracts of the cerebral hemispheres. Normal basal ganglia and thalami. Normal brainstem. Normal cerebellum. There is no intracranial hemorrhage. There are no findings of an acute ischemic infarction. Opacification of the frontal sinus, ethmoid sinus and sphenoid sinus. Diffuse hypertrophy in the nasal fossa extending into the nasopharynx. Mucosal thickening of the maxillary sinus bilaterally. CT/Brain/Head without Contrast IMPRESSION: FLORES sinusitis. Soft tissue prominence in the nasal cavity suggestive of polyposis. No acute intracerebral abnormality is seen. Electronically Signed: Martinez Stinson MD at 12:53 EDT , Service support ,
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
--- NOTE | 2020-08-29 12:30 | RAD_ITS ---
STUDY: X-RAY CHEST REASON FOR EXAM: Female, 59 years old. Trauma TECHNIQUE: Single AP portable view of the chest. COMPARISON: Comparison is made with prior study dated 01/07/2018. FINDINGS: There is blunting of the left costophrenic angle with mild increased markings at the left lung base suggestive of a atelectasis. Normal size heart. Normal mediastinum and sharee. Normal visualized pulmonary arteries. Normal visualized aortic arch and descending thoracic aorta. Normal visualized thoracic spine. Normal visualized ribs, clavicles, and shoulders. Prior cholecystectomy. RAD/Chest 1 View IMPRESSION: Blunting of the left costal angle with mild increased markings at the left lung base suggestive of left basilar atelectasis. Electronically Signed: Martinez Stinson MD at 12:56 EDT , Service support ,
[2020-08-29] MEDS: Diphth,Pertuss(Acell),Tet Vac 0.5 ML Vial IM (12:48)
--- NOTE | 2020-08-29 13:43 | ED.RN ---
pt reports she has allergy to oxycodone - requesting morphine and MD aware but states not ordering at this time. pt also has fentanyl patch on.
[2020-08-29] MEDS: Lidocaine 1% (20 ml mdv) 20 ML Vial INFILT (14:16)
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
--- NOTE | 2020-08-29 15:04 | ED.RN ---
discard of prescription d/t allergy- MD aware.
== END 2020-08-29 14:54 | disposition home or self-care (01) ==
PROVIDERS: Emergency Provider Emergency Medicine; PCP Internal Medicine
DX: S01.01XA Laceration without foreign body of scalp, initial encounter (principal); S50.02XA Contusion of left elbow, initial encounter; S70.12XA Contusion of left thigh, initial encounter; S80.12XA Contusion of left lower leg, initial encounter; S40.012A Contusion of left shoulder, initial encounter; V53.5XXA Driver of pick-up truck or van injured in collision with car, pick-up truck or van in traffic accident, initial encounter; Y93.89 Activity, other specified; Y92.410 Unspecified street and highway as the place of occurrence of the external cause; Y99.9 Unspecified external cause status; E78.5 Hyperlipidemia, unspecified; J45.909 Unspecified asthma, uncomplicated; K58.9 Irritable bowel syndrome, unspecified; F41.8 Other specified anxiety disorders; Z79.899 Other long term (current) drug therapy
CPT/HCPCS: 12001; 70450; 71045; 72125; 73080; 73552; 73590; 90471; 90715; 99285

== ENCOUNTER → 2020-08-31 | Outpatient (CLI) | payer MEDICARE, SELFPAY ==
[2020-08-29 11:15] VITALS: BMI 25.2
== END | disposition home or self-care (01) ==
LOC: LABSPEC 15:06
PROVIDERS: PCP Internal Medicine; Referring Provider Otolaryngology; Visit Provider Otolaryngology
DX: J32.9 Chronic sinusitis, unspecified (principal)
CPT/HCPCS: 87070; 87205

== ENCOUNTER → 2021-11-24 | Outpatient (CLI) | payer MEDICARE, SELFPAY | END | disposition home or self-care (01) | LOC: LABSPEC 15:09 | PROVIDERS: PCP Internal Medicine; Visit Provider Otolaryngology | DX: J33.0 Polyp of nasal cavity (principal); J32.8 Other chronic sinusitis | CPT/HCPCS: 87070; 87077; 87106; 87205 ==

== ENCOUNTER → 2021-12-21 | Outpatient (CLI) | payer MEDICARE, SELFPAY ==
--- NOTE | 2021-12-21 07:42 | CT_ITS ---
STUDY: CT MAXILLOFACIAL SINUSES REASON FOR EXAM: Female, 60 years old. CHRONIC SINUSITIS RADIATION DOSAGE (If Supplied By Facility): CTDIvol = ( 33.06 ) mGy, DLP = ( 800.79 ) mGycm TECHNIQUE: The patient was scanned in a multi detector CT scanner. High resolution axial imaging was performed without the administration of intravenous contrast material. Sagittal and coronal images were reconstructed. Individualized dose optimization techniques were used for this CT. COMPARISON: 12/12/2016 FINDINGS: FRONTAL SINUSES: Complete opacification. ETHMOIDAL SINUSES: Complete opacification with destruction of the estrada of the ethmoid air cells consistent with chronic sinusitis.. MAXILLARY SINUSES: Near-complete opacification with mucosal thickening and wall thickening and destruction of the medial estrada consistent with chronic sinusitis. SPHENOIDAL SINUSES: Mucosal thickening consistent with chronic sinusitis. Occluded ostiomeatal units bilaterally. Significant destruction of the middle turbinates bilaterally. Normal bilateral inferior turbinates. Normal midline nasal septum. Near total opacification of the nasal airway. The visualized osseous structures are normal. The visualized bilateral orbital contents are normal. CT/Sinus/Facial Bone IMPRESSION: Chronic pansinusitis. Electronically Signed: Juwan Cotter MD at 8:23 EDT ,
== END | disposition home or self-care (01) ==
PROVIDERS: PCP Internal Medicine; Referring Provider Otolaryngology; Visit Provider Otolaryngology
DX: J32.4 Chronic pansinusitis (principal); J33.0 Polyp of nasal cavity
CPT/HCPCS: 70486

== ENCOUNTER 2022-02-13 09:03 | Day surgery (SDC) | payer MEDICARE, SELFPAY ==
[2022-02-08 11:03] LABS: Hematocrit 45.4 % (37-47); Hemoglobin 14.5 g/dL (12.0-15.0); Mean Corp Hgb Conc 31.9 g/dL (32-36); Mean Corpuscular Hgb 28.2 pg (27.0-32.0); Mean Corpuscular Volume 88.3 fL (81-99); Mean Platelet Vol. 9.7 fl (6.2-12.0); Platelet Count 421 K/mm3 (150-450); RBC Distribution Width CV 13.3 % (11.6-14.6); RBC Distribution Width SD 43.3 fl (35.1-43.9); Red Blood Count 5.14 M/mm3 (4.2-5.4)
[2022-02-08 11:29] LABS: Anion Gap 5 (5-15); BUN 13 mg/dL (7-18); BUN/Creat Ratio 13.8 RATIO (10-20); Calcium,Total 9.6 mg/dL (8.5-10.1); Chloride 107 mmol/L (98-107); Creatinine, Serum 0.94 mg/dL (0.55-1.02); EST Glomerular Filtration Rate 64 mL/min (>60); Est Glom Filt Rate - Afr Amer 78 mL/min (>60); Glucose 96 mg/dL (74-106); Potassium 4.1 mmol/L (3.5-5.1); Sodium Level 141 mmol/L (136-145)
[2022-02-13] VITALS (9 sets, daily range): BP systolic 110–140; BP diastolic 36–65; PULSE 80–96; RESP 16–18; TEMP 36–37.9; O2SAT 92–97; BMI 25.0
[2022-02-13] MEDS: Lactated Ringers 1,000 ML 15 ML IV ×2 (09:25→13:55)
--- NOTE | 2022-02-13 10:45 | ETH_PTH ---
PATIENT: EZIO JEFFERS [place] [facility] [id number] AGE/SX: 61/F ROOM: RE02/13/[address]: Dr. Samuel Mazariegos MD : 1960 BED: DIS: 02/13/2022 SPEC #: [id number] RECD: 02/13/22 14:54 STATUS: ANGELINA ENRIQUE #: [id number] IZABEL: 02/13/22 10:[address]: Samuel Mazariegos DEPT: SURGICAL PATHOLOGY RECD BY: Abby Siegel ENTERED: 02/14/22 09:21 SP TYPE: ETH TISS OTHR DR: Dr. Lew Verduzco MD Tissues: A - Ethmoid sinus, NOS B - Ethmoid sinus, NOS Procedures: Surgery Specimen Level III HEADER OPERATION: Functional endoscopic sinus surgery with Navigation PRE-OP DIAGNOSIS: Chronic pansinusitis, nasal polyps TISSUE SUBMITTED: A ? Right sinus contents, B ? Left sinus contents MICROSCOPIC DIAGNOSIS A. Right sinus contents, curettings: Consistent with chronic sinusitis. B. Left sinus contents, curettings: Consistent with chronic sinusitis. AM:melissa 02/15/2022 MICROSCOPIC DESCRIPTION Slides are reviewed. GROSS DESCRIPTION A - Received in fixative is one container labeled with the patient's name and designated right sinus contents. The specimen consists of multiple irregular fragments of hemorrhagic, frothy tissue mixed with mucoid tissue that in aggregate measure 7 x 6 x 1.5 cm. Radiology Supervisor tissue is submitted in two cassettes. B - Received in fixative is one container labeled with the patient's name and designated left sinus contents. The specimen consists of multiple irregular fragments of hemorrhagic, frothy tissue mixed with mucoid tissue that in aggregate measure 6 x 5 x 1.5 cm. Radiology Supervisor tissue is submitted in two cassettes. / SJ:melissa 02/14/2022 TC:3 CPT: 66086 x2
--- NOTE | 2022-02-13 11:44 | DCINST_ITS ---
Discharge Instructions Diet Discharge Diet: No restrictions Activity Discharge Activity: Return to Normal Activity Dressing / Incision Call your doctor if your incision/area has: Sudden Increased Bleeding Additional Dressing/Incision Instructions:: saline to nose 5 times daily. sleep with head of bed elevated. Follow Up Care Please Follow Up With: Samuel Mazariegos MD When: 1 week Test Results: Test results from this visit will be discussed in further detail at your follow- up appointment, if applicable. Discharge Plan Admission Attending Provider: Samuel Mazariegos Primary Care Provider: Lew Verduzco Discharge Orders/Prescriptions Prescriptions: No Action clonazepam 0.5 MG tablet 0.5 mg PO BID Label Comments: anxiety simvastatin 40 MG tablet 40 mg PO QHS Label Comments: cholesterol lansoprazole [Prevacid] 30 MG capsule 30 mg PO DAILY Label Comments: gerd estradiol [Estrace] 0.5 MG tablet 0.5 mg PO QHS Label Comments: hormone albuterol sulfate [Ventolin HFA] 18 GM HFA aerosol inhaler 1 - 2 puff IH Q4H PRN PRN (Reason: Asthma) Label Comments: asthma fluticasone propionate 1 SPRAY spray,suspension 1 spray NASAL DAILY PRN PRN (Reason: Allergies) Label Comments: allergies loperamide 2 MG capsule 2 mg PO Q6H PRN PRN (Reason: Diarrhea) Qty: 20 0RF Label Comments: diarrhea fexofenadine [Nan Allergy] 180 MG tablet 180 mg PO QHS imipramine HCl 50 MG tablet 50 mg PO QHS sucralfate 1 GM tablet 1 g PO BID budesonide-formoterol [Symbicort] 1 INHALER inhaler 2 puff inhalation BID calcium citrate-vitamin D3 [Citracal-D3 Petites] 1 EACH tablet 1 ea PO DAILY ipratropium-albuterol 3 ML solution for nebulization 3 ml inhalation Q4H PRN (Reason: BREATHING) montelukast [Singulair] 10 mg Tablet 10 mg PO DAILY Other Ambulatory Orders: 12 Lead EKG (Routine) Timeframe: [id number] Location: None Selected Ordered By: Dr. Hi Oliver Referrals / Follow Up: Lew Verduzco MD [Primary Care Provider] - Disposition Disposition (needs filled in before D/C Order can be placed): Home, Self Care
--- NOTE | 2022-02-13 11:49 | PCM.OPRPT ---
Problems Associated Problem List Diagnoses (1) Polyp of nasal cavity: (2) Chronic pansinusitis: Report of Operation Date of Procedure: 02/13/22 Pre-Operative Diagnosis: 1. chronic pansinusitis 2. sinonasal polyposis Post-Operative Diagnosis: 1. chronic pansinusitis 2. sinonasal polyposis Surgery/Procedure Performed:: 1. sinonasal polypectomy. 2. revision maxillary antrostomy with removal of contents, right and left. 3. total ethmoidectomy, right and left. 4. sphenoidotomy, right and left. 5. intraoperative CT navigation. Surgeon: Samuel Mazariegos Type of Anesthesia: General Description of Procedure: on the day of the procedure, after appropriate informed consent was obtained, the patient was brought to the operating room and placed in supine position on the operating table.? she was placed under general endotracheal anesthesia by the anesthesiologist.? the endotracheal tube was secured.? the CT navigation system was set up and registered.? the bilateral nasal cavities were decongested with oxymetazoline soaked pledgets.? the superior attachment of the left middle turbinate was injected with lidocaine/epinephrine.? the microdebrider and zero degree scope were used to remove polyps filling the entire nasal cavity, middle meatus and sphenoethmoidal recess.? the maxillary os was located with the navigation and a back-biter was used to perform an antrostomy and polyps were evacuated.? a revision total ethmoidectomy was performed with the microdebrider and a curette and polyps were removed.? this was taken to the skull base superiorly and the lamina laterally.? a stankewicz maneuver was performed and no laminar defect was noted.? the natural sphenoid os was located and widened with a mushroom punch, polyps were removed from her sphenoid.? oxymetazoline pledgets were placed and hemostasis was observed. the superior attachment of the right middle turbinate was injected with lidocaine/epinephrine.? the microdebrider and zero degree scope were used to remove polyps filling the entire nasal cavity, middle meatus and sphenoethmoidal recess.? the maxillary os was located with the navigation and a back-biter was used to perform an antrostomy and polyps were evacuated.? a revision total ethmoidectomy was performed with the microdebrider and a curette.? polyps were removed from this area. this was taken to the skull base superiorly and the lamina laterally.? a stankewicz maneuver was performed and no laminar defect was noted.? the natural sphenoid os was located and widened with a mushroom punch, polyps were removed from her sphenoid.? oxymetazoline pledgets were placed and hemostasis was observed.? surgicel was placed in the right frontal recess, and elfego was placed bilaterally. the patient was awoken from anesthesia and transferred to the PACU in stable condition.
[2022-02-13] MEDS: Lidocaine 1% /Epi 1:100 (20ml) 20 ML Vial INFILT (12:38)
[2022-02-13] MEDS: Oxymetazoline 0.05% 1 SPRAY SPRAY.BTL 15 SPRAY (12:38)
== END 2022-02-13 16:54 | disposition home or self-care (01) ==
LOC: SDC 09:04 → AC 09:05
PROVIDERS: Anesthesiology; PCP Internal Medicine; Referring Provider Otolaryngology; Visit Provider Otolaryngology
PROC: (CPT 31267; principal; 2022-02-13 10:25)
DX: J32.4 Chronic pansinusitis (principal); J44.9 Chronic obstructive pulmonary disease, unspecified; J33.0 Polyp of nasal cavity; E78.00 Pure hypercholesterolemia, unspecified; M79.7 Fibromyalgia; M19.90 Unspecified osteoarthritis, unspecified site; F32.A Depression, unspecified; F41.9 Anxiety disorder, unspecified; Z79.899 Other long term (current) drug therapy
CPT/HCPCS: 31267; 31287; 00160; 36415; 80048; 85027; 88304; 88305; 93005; J7120; J2405

== ENCOUNTER → 2022-03-22 | Outpatient (CLI) | payer MEDICARE, SELFPAY | END | disposition home or self-care (01) | LOC: LABSPEC 15:02 | PROVIDERS: PCP Internal Medicine; Referring Provider Otolaryngology; Visit Provider Otolaryngology | DX: J32.9 Chronic sinusitis, unspecified (principal) | CPT/HCPCS: 87070; 87186; 87205 ==

== ENCOUNTER → 2022-05-07 | Outpatient (CLI) | payer MEDICARE, SELFPAY | END | disposition home or self-care (01) | PROVIDERS: PCP Internal Medicine; Visit Provider Otolaryngology | DX: J32.8 Other chronic sinusitis (principal) | CPT/HCPCS: 87070; 87205 ==

== ENCOUNTER → 2023-06-28 | Outpatient (CLI) | payer MEDICARE, SELFPAY ==
--- OUTSIDE RECORDS SUMMARY | 2023-06-28 18:14 | XMS RPT_ITS | CCD ---
Author Name Unknown Address [address] [place] [address] Organization [facility] Care Team Providers Care Umbrella Tipper Hand Name Role Phone Dax BLOOD, Lew Gonzales Primary Care Provider [phone] Edda Oconnor MD Primary Care Provider ELIA JACOB Attending Unavailable RUSS, ERMIAS Referring Unavailable TALAMPAS, EDDA D Primary Care Unavailable ERMIAS SOLANO Attending Unavailable ERMIAS SOLANO Referring Unavailable LEW VERDUZCO Primary Care Unavailable ERMIAS SOLANO Attending Unavailable LEW VERDUZCO Primary Care Unavailable Dax BLOOD, Lew Gonzales Primary Care Provider [phone] NUNO BENSON Attending Unavailable TALAMPAS, EDDA D Primary Care Unavailable NUNO BENSON Attending Unavailable TALAMPAS, EDDA D Primary Care Unavailable NUNO BENSON Referring Unavailable TALAMPAS, EDDA D Primary Care Unavailable ANTONIO KHANH Sobeida Referring Unavailable ANTONIO, KHANH A Attending Unavailable TALAMPAS, EDDA D Primary Care Unavailable TALAMPAS, EDDA D Primary Care Unavailable NUNO BENSON Attending Unavailable TALAMPAS, EDDA D Primary Care Unavailable ELLEN NAVARRO Referring Unavailable TALAMPAS, EDDA D Primary Care Unavailable TALAMPAS, EDDA D Attending Unavailable TALAMPAS, EDDA D Primary Care Unavailable TALAMPAS, EDDA D Primary Care Unavailable TALAMPAS, EDDA D Referring Unavailable TALAMPAS, EDDA D Primary Care Unavailable TALAMPAS, EDDA D Referring Unavailable ELLEN NAVARRO Referring Unavailable ELLEN NAVARRO Attending Unavailable TALAMPAS, EDDA D Primary Care Unavailable MARY LOU NICHOLSON Referring Unavailable TALAMPAS, EDDA D Primary Care Unavailable ELLEN NAVARRO Referring Unavailable TALAMPAS, EDDA D Primary Care Unavailable NUNO BENSON Attending Unavailable TALAMPAS, EDDA D Primary Care Unavailable ELLEN NAVARRO Referring Unavailable TALAMPAS, EDDA D Primary Care Unavailable MARY LOU NICHOLSON Referring Unavailable MARY LOU NICHOLSON Attending Unavailable TALAMPAS, EDDA D Primary Care Unavailable TALAMPAS, EDDA D Primary Care Unavailable TALAMPAS, EDDA D Attending Unavailable Allergies Allergy Classification Reported Allergen(s) Allergy Type Date of Onset Reaction(s) Facility (20 sources) Acetaminophen; Translations: [ACETAMINOPHEN] Drug Allergy 01-03-20 06 Intolerance, Shortness of Breath [facility] Work Phone: (20 sources) Acetaminophen / HYDROcodone; Translations: [HYDROCODONE-ACETAM INOPHEN] Drug Allergy 02-16-20 05 [facility] (20 sources) Acetylcysteine; Translations: [ACETYLCYSTEINE] Drug Allergy 10-31-19 13 Cough [facility] (20 sources) Azithromycin; Translations: [AZITHROMYCIN] Drug Allergy 01-20-20 05 Itching [facility] Work Phone: (20 sources) Budesonide; Translations: [BUDESONIDE] Drug Allergy 06-26-19 19 Rash [facility] Work Phone: (20 sources) cefdinir; Translations: [CEFDINIR] Drug Allergy 12-21-19 20 Itching [facility] Work Phone: (20 sources) Citalopram; Translations: [CITALOPRAM HYDROBROMIDE] Drug Allergy 07-26-19 06 GI Upset [facility] Work Phone: (20 sources) Codeine; Translations: [CODEINE] Drug Allergy 02-16-20 05 [facility] (20 sources) difluprednate; Translations: [DIFLUPREDNATE] Drug Allergy 03-04-20 14 Rash [facility] Work Phone: (20 sources) Doxycycline; Translations: [DOXYCYCLINE] Drug Allergy 06-04-19 06 [facility] Work Phone: (20 sources) Escitalopram; Translations: [ESCITALOPRAM OXALATE] Drug Allergy 07-26-19 06 GI Upset [facility] Work Phone: (20 sources) Fosfomycin; Translations: [FOSFOMYCIN] Drug Allergy 05-18-19 22 Diarrhea [facility] Work Phone: (20 sources) Ibuprofen; Translations: [IBUPROFEN] Drug Allergy 07-26-19 06 Shortness of Breath [facility] Work Phone: [phone] (20 sources) Ketorolac; Translations: [KETOROLAC TROMETHAMINE] Drug Allergy 04-06-20 11 Swelling [facility] Work Phone: [phone] (20 sources) Maprotiline; Translations: [MAPROTILINE] Drug Allergy 05-16-19 10 Itching [facility] (20 sources) Meperidine; Translations: [MEPERIDINE (PF)] Drug Allergy 01-04-20 06 Rash [facility] Work Phone: (20 sources) Mirtazapine; Translations: [MIRTAZAPINE] Drug Allergy 11-18-19 14 Other: See Comments [facility] Work Phone: (20 sources) NITROFURANTOIN, MACROCRYSTALS / Nitrofurantoin, Monohydrate; Translations: [NITROFURANTOIN MONOHYD/M-CRYST] Drug Allergy 06-26-19 19 Diarrhea [facility] Work Phone: (20 sources) oxyCODONE; Translations: [OXYCODONE] Drug Allergy 01-18-20 11 Shortness of Breath [facility] Work Phone: (20 sources) Penicillins; Translations: [PENICILLINS] Propensity to adverse reactions 01-10-20 05 [facility] Work Phone: (20 sources) predniSONE; Translations: [PREDNISONE] Drug Allergy 07-31-19 07 Itching [facility] Work Phone: (20 sources) pregabalin; Translations: [PREGABALIN] Drug Allergy 04-10-20 11 Mental Status Change [facility] (20 sources) Salicylic Acid; Translations: [SALICYLATES] Drug Allergy 05-24-19 07 Swelling, Shortness of Breath [facility] Work Phone: (20 sources) Sulfamethoxazole / Trimethoprim; Translations: [SULFAMETHOXAZOLE-T RIMETHOPRIM] Drug Allergy 07-26-19 06 [facility] Work Phone: (20 sources) traMADol; Translations: [TRAMADOL HCL] Drug Allergy 07-26-19 06 Other: See Comments [facility] Work Phone: (20 sources) Vancomycin; Translations: [VANCOMYCIN] Drug Allergy 01-22-20 Other: See Comments [facility] (20 sources) venlafaxine; Translations: [VENLAFAXINE] Drug Allergy 07-09-19 12 GI Upset [facility] (20 sources) Environmental allergies [Other] Propensity to adverse reactions 02-26-20 06 [facility] (20 sources) Penicillins Propensity to adverse reactions 01-10-20 05 Hives [facility] Work Phone: (20 sources) Salicylate product Drug Allergy 05-24-19 07 Swelling, Shortness of Breath [facility] Work Phone: (20 sources) zolpidem; Translations: [ZOLPIDEM] Drug Allergy 04-07-20 22 Intolerance [facility] Work Phone: (2 sources) OTHER; Translations: [OTHER] Propensity to adverse reactions (disorder) 02-26-20 06 [facility] Other [facility] (7 sources) Amoxicillin; Translations: [AMOXICILLIN] Drug Allergy 01-18-20 23 Rash [facility] Work Phone: Medications Current Medications Medication Drug Class(es) Dates Sig (Normalized) Sig (Original) amoxicillin 875 mg oral tablet (5 sources) Penicillin-class Antibacterial Start: 01-08-2023 End: 01-18-2023 take 1 tablet by mouth twice daily amoxicillin (AMOXIL) 875 mg tablet Take 1 tablet by mouth twice daily for 10 days. 20 tablet 0 01/08/2023 01/18/2023 Active Completed/Discontinued Medications Medication Drug Class(es) Dates Sig (Normalized) Sig (Original) [id number] 200 actuat albuterol 0.09 mg/actuat metered dose inhaler (20 sources) beta2-Adrenergic Agonist Start: 07-16-2022 Albuterol Sulfate 1.25 mg/3 mL nebulizer solution Indications: Asthma with chronic obstructive pulmonary disease (COPD) Use 1 Ampule via nebulizer every 6 hours as needed for wheezing/shortness of breath. 120 mL 5 07/16/2022 Active Problems Active Problems Problem Classification Problem Date Documented Da te Episodic/Chronic Allergic reactions (1 source) Allergic reaction to drug; Translations: [Allergy, unspecified, initial encounter] 01-18-2023 Episodic Anxiety disorders (20 sources) Mixed anxiety and depressive disorder; Translations: [Anxiety disorder, unspecified] Onset: 6 02-25-2015 Chronic Asthma (12 sources) Moderate persistent asthma controlled; Translations: [Moderate persistent asthma, uncomplicated] Onset: 3 Chronic Chronic obstructive pulmonary disease and bronchiectasis (20 sources) Asthma-chronic obstructive pulmonary disease overlap syndrome; Translations: [Chronic obstructive pulmonary disease, unspecified] Onset: 6 02-25-2015 Chronic Complications of surgical procedures or medical care (1 source) Non dose-related adverse reaction to medication; Translations: [Unspecified adverse effect of drug or medicament, initial encounter] 01-08-2023 Episodic Diabetes mellitus without complication (2 sources) Other abnormal glucose; Translations: [High hemoglobin A1c level] Onset: 4 05-01-2023 Episodic Disorders of lipid metabolism (20 sources) Pure hypercholesterolemia; Translations: [Pure hypercholesterolemia, unspecified] Onset: 6 08-09-2005 Chronic Esophageal disorders (20 sources) Gastroesophageal reflux disease; Translations: [Gastro-esophageal reflux disease without esophagitis] Onset: 9 08-05-2008 Chronic Genitourinary symptoms and ill-defined conditions (2 sources) Dysuria; Translations: [Dysuria] Episodic Inflammatory diseases of female pelvic organs (2 sources) Acute vaginitis; Translations: [Acute vaginitis] Episodic Menopausal disorders (20 sources) Menopausal syndrome; Translations: [Menopausal and female climacteric states] Onset: 5 01-16-2017 Chronic Nutritional deficiencies (3 sources) Vitamin D deficiency; Translations: [Vitamin D deficiency, unspecified] Onset: 4 Chronic Osteoporosis (20 sources) Osteoporosis; Translations: [Age-related osteoporosis without current pathological fracture] Onset: 4 05-24-2013 Chronic Other bone disease and musculoskeletal deformities (1 source) Other specified disorders of bone density and structure, unspecified site; Translations: [Osteopenia, unspecified location] Onset: 4 Episodic Other bone disease and musculoskeletal deformities (1 source) Osteopenia; Translations: [Other specified disorders of bone density and structure, unspecified site] 05-01-2023 Episodic Other gastrointestinal disorders (20 sources) Irritable bowel syndrome; Translations: [Irritable bowel syndrome without diarrhea] 07-11-2016 Chronic Other nervous system disorders (1 source) Other chronic pain; Translations: [Other chronic pain] Onset: 2 Chronic Other nervous system disorders (1 source) Chronic pain; Translations: [Other chronic pain] Chronic Other non-traumatic joint disorders (1 source) Shoulder pain; Translations: [Pain in unspecified shoulder] Episodic Other nutritional; endocrine; and metabolic disorders (1 source) Unintentional weight gain; Translations: [Abnormal weight gain] 01-02-2023 Episodic Other nutritional; endocrine; and metabolic disorders (1 source) Overweight in adulthood with body mass index of 25 or more but less than 30; Translations: [Body mass index (BMI) 28.0-28.9, adult] 01-02-2023 Episodic Other screening for suspected conditions (not mental disorders or infectious disease) (4 sources) Patient encounter status; Translations: [Encounter for screening mammogram for malignant neoplasm of breast] Episodic Other skin disorders (1 source) Mass of skin of right lower limb; Translations: [Disorder of the skin and subcutaneous tissue, unspecified] Episodic Other skin disorders (1 source) Seborrheic keratosis; Translations: [Other seborrheic keratosis] Episodic Other skin disorders (2 sources) Lesion of skin of nose; Translations: [Disorder of the skin and subcutaneous tissue, unspecified] Episodic Other upper respiratory disease (20 sources) Chronic rhinitis; Translations: [Chronic rhinitis] Onset: 6 02-27-2006 Chronic Other upper respiratory disease (4 sources) Allergic rhinitis; Translations: [Allergic rhinitis, unspecified] Chronic Other upper respiratory disease (1 source) Non-allergic rhinitis; Translations: [Chronic rhinitis] 01-09-2023 Chronic Other upper respiratory disease (1 source) Allergic rhinitis, unspecified; Translations: [Allergic rhinitis, unspecified seasonality, unspecified trigger] Onset: 3 Chronic Other upper respiratory infections (20 sources) Recurrent sinusitis; Translations: [Chronic sinusitis, unspecified] Onset: 9 Chronic Other upper respiratory infections (2 sources) Recurrent acute sinusitis; Translations: [Acute recurrent sinusitis, unspecified] Episodic Residual codes; unclassified (1 source) Postmenopausal state; Translations: [Asymptomatic menopausal state] 05-08-2022 Episodic Spondylosis; intervertebral disc disorders; other back problems (20 sources) Degeneration of lumbosacral intervertebral disc; Translations: [Other intervertebral disc degeneration, lumbosacral region] Onset: 2 07-20-2020 Chronic Urinary tract infections (20 sources) Chronic cystitis; Translations: [Other chronic cystitis without hematuria] Onset: 6 06-04-2005 Chronic Past or Other Problems Problem Classification Problem Date Documented Da te Episodic/Chronic Other aftercare (20 sources) assisted 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; 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] Onset: 01-16-2017 01-16-2017 Episodic Other aftercare (1 source) Encounter for therapeutic drug level monitoring; Translations: [Encounter for therapeutic drug monitoring] Onset: 01-02-2023 Episodic Other aftercare (1 source) Other intermediate teacher (current) drug therapy; Translations: [Encounter for long-term current use of medication] Onset: 07-04-2022 Episodic Other and unspecified benign neoplasm (20 sources) Adenomatous polyp of colon ; Translations: [Benign neoplasm of colon, unspecified] Onset: 07-29-2014 07-29-2014 Episodic Other connective tissue disease (20 sources) Fibromyalgia; Translations: [Fibromyalgia] Onset: 07-27-2009 07-27-2009 Episodic Other connective tissue disease (1 source) Fibromyalgia; Translations: [Fibromyalgia] Onset: 07-27-2009 Episodic Other nutritional; endocrine; and metabolic disorders (1 source) Abnormal weight gain; Translations: [Unintended weight gain] Onset: 01-02-2023 Episodic Other nutritional; endocrine; and metabolic disorders (1 source) Body mass index (BMI) 28.0-28.9, adult; Translations: [BMI 28.0-28.9,adult] Onset: 01-02-2023 Episodic Other upper respiratory disease (20 sources) Polyp of nasal cavity and/or nasal sinus; Translations: [Nasal polyp, unspecified] Onset: 01-16-2017 Episodic Spondylosis; intervertebral disc disorders; other back problems (20 sources) Spinal stenosis of lumbar region; Translations: [Spinal stenosis, lumbar region without neurogenic claudication] Onset: 07-20-2020 07-20-2020 Episodic Results Test Name Value Interpretation Reference Range Facil ity Vital Signs Date Time Vital Sign Value Performing Clinician Faci lity 05-01-2023 14:45-0500 Diastolic blood pressure 78 mm[Hg] Edda Oconnor MD Work Phone: [facility] 05-01-2023 14:45-0500 Systolic blood pressure 126 mm[Hg] Edda Oconnor MD Work Phone: [facility] 05-01-2023 13:49-0500 Body temperature 96.21 [degF] Edda Oconnor MD Work Phone: [facility] 05-01-2023 13:49-0500 Body weight 67.13 kg Edda Oconnor MD Work Phone: [facility] 05-01-2023 13:49-0500 Heart rate 104 /min Edda Oconnor MD Work Phone: [facility] 05-01-2023 13:49-0500 Respiratory rate 18 /min Edda Oconnor MD Work Phone: [facility] 05-01-2023 13:49-0500 SaO2% (BldA) [Mass fraction] 97 % Edda Oconnor MD Work Phone: [facility] 01-18-2023 09:24-0400 Body temperature 97.81 [degF] Jenny Salas APRN.BRIM SHAPER Work Phone: [facility] 01-18-2023 09:24-0400 Body weight 67.04 kg Jenny Salas APRN.CNP Work Phone: [facility] 01-18-2023 09:24-0400 Diastolic blood pressure 74 mm[Hg] Jenny Salas APRN.[employer]IM [employer]ER Work Phone: [facility] 01-18-2023 09:24-0400 Heart rate 113 /min Jenny Praisler-Wood 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 Work Phone: [facility] 01-18-2023 09:24-0400 Respiratory rate 20 /min Jenny Praisler-Wood 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 Work Phone: [facility] 01-18-2023 09:24-0400 SaO2% (BldA) [Mass fraction] 98 % Jenny Praisler-Wood 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 Work Phone: [facility] 01-18-2023 09:24-0400 Systolic blood pressure 138 mm[Hg] Jenny Praisler-Wood 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 Work Phone: [facility] 01-08-2023 10:39-0400 Body weight 66.22 kg Khanh Antonio MD Work Phone: [facility] 01-08-2023 10:39-0400 Diastolic blood pressure 70 mm[Hg] Khanh Antonio MD Work Phone: [facility] 01-08-2023 10:39-0400 Heart rate 98 /min Khanh Antonio MD Work Phone: [facility] 01-08-2023 10:39-0400 SaO2% (BldA) [Mass fraction] 96 % Khanh Antonio MD Work Phone: [facility] 01-08-2023 10:39-0400 Systolic blood pressure 113 mm[Hg] Khanh Antonio MD Work Phone: [facility] 01-02-2023 08:42-0400 Diastolic blood pressure 90 mm[Hg] Nuno Silvar 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 Work Phone: [facility] 01-02-2023 08:42-0400 Systolic blood pressure 126 mm[Hg] Nuno Shaila 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 Work Phone: [facility] 01-02-2023 08:41-0400 Body weight 66.68 kg Nuno Silvar 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 Work Phone: [facility] 01-02-2023 08:41-0400 Heart rate 107 /min Nuno Silvar 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 Work Phone: [facility] 01-02-2023 08:41-0400 SaO2% (BldA) [Mass fraction] 95 % Nuno Silvar 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 Work Phone: [facility] 12-03-2022 13:17-0400 Body height 152.4 cm Ellen Felipe PA-C Work Phone: [facility] 12-03-2022 13:17-0400 Body weight 67.59 kg Ellen Felipe PA-C Work Phone: [facility] 12-03-2022 13:17-0400 Diastolic blood pressure 76 mm[Hg] Ellen Felipe PA-C Work Phone: [facility] 12-03-2022 13:17-0400 Heart rate 106 /min Ellen Felipe PA-C Work Phone: [facility] 12-03-2022 13:17-0400 Respiratory rate 16 /min Ellen Felipe PA-C Work Phone: [facility] 12-03-2022 13:17-0400 SaO2% (BldA) [Mass fraction] 97 % Ellen Felipe PA-C Work Phone: [facility] 12-03-2022 13:17-0400 Systolic blood pressure 140 mm[Hg] Ellen Felipe PA-C Work Phone: [facility] 06-22-2022 15:31-0500 Body temperature 97.81 [degF] Edda Oconnor MD Work Phone: [facility] 06-22-2022 15:31-0500 Body weight 63.5 kg Edda Oconnor MD Work Phone: [facility] 06-22-2022 15:31-0500 Diastolic blood pressure 69 mm[Hg] Edda Oconnor MD Work Phone: [facility] 06-22-2022 15:31-0500 Heart rate 98 /min Edda Oconnor MD Work Phone: [facility] 06-22-2022 15:31-0500 Respiratory rate 18 /min Edda Oconnor MD Work Phone: [facility] 06-22-2022 15:31-0500 SaO2% (BldA) [Mass fraction] 99 % Edda Oconnor MD Work Phone: [facility] 06-22-2022 15:31-0500 Systolic blood pressure 112 mm[Hg] Edda Oconnor MD Work Phone: [facility] 06-04-2022 09:46-0500 Body height 152.4 cm Mary Lou Nicholson MD Work Phone: [facility] 06-04-2022 09:46-0500 Body weight 64 kg Mary Lou Nicholson MD Work Phone: [facility] 06-04-2022 09:46-0500 Diastolic blood pressure 82 mm[Hg] Mary Lou Nicholson MD Work Phone: [facility] 06-04-2022 09:46-0500 Heart rate 84 /min Mary Lou Nicholson MD Work Phone: [facility] 06-04-2022 09:46-0500 Respiratory rate 18 /min Mary Lou Nicholson MD Work Phone: [facility] 06-04-2022 09:46-0500 SaO2% (BldA) [Mass fraction] 98 % Mary Lou Nicholson MD Work Phone: [facility] 06-04-2022 09:46-0500 Systolic blood pressure 132 mm[Hg] Mary Lou Nicholson MD Work Phone: [facility] 06-04-2022 09:34-0500 Body height 152.4 cm Pulm Wstr Work Phone: [facility] 06-04-2022 09:34-0500 Body weight 63.96 kg Pulm Wstr Work Phone: [facility] 05-03-2022 09:44-0500 Heart rate 94 /min Elia [place]port 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 Work Phone: [facility] 05-03-2022 09:44-0500 Respiratory rate 18 /min Elia [place] 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 Work Phone: [facility] 05-03-2022 09:44-0500 SaO2% (BldA) [Mass fraction] 98 % Elia [place] 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 Work Phone: [facility] 04-19-2022 08:41-0500 Body weight 62.6 kg Maria Teresa Edwards VOLCANOLOGY PROFESSOR.ARTIFICIAL [employer]OWERS STARCHER Work Phone: [facility] 04-19-2022 08:41-0500 Diastolic blood pressure 74 mm[Hg] Maria Teresa Edwards VOLCANOLOGY PROFESSOR.ARTIFICIAL FLOWERS STARCHER Work Phone: [facility] 04-19-2022 08:41-0500 Heart rate 107 /min Maria Teresa Edwards VOLCANOLOGY PROFESSOR.ARTIFICIAL FLOWERS STARCHER Work Phone: [facility] 04-19-2022 08:41-0500 Respiratory rate 16 /min Maria Teresa Edwards VOLCANOLOGY PROFESSOR.ARTIFICIAL FLOWERS STARCHER Work Phone: [facility] 04-19-2022 08:41-0500 SaO2% (BldA) [Mass fraction] 98 % [facility] VOLCANOLOGY PROFESSOR.ARTIFICIAL FLOWERS STARCHER Work Phone: [facility] 04-19-2022 08:41-0500 Systolic blood pressure 128 mm[Hg] Maria Teresa Edwards VOLCANOLOGY PROFESSOR.ARTIFICIAL FLOWERS STARCHER Work Phone: [facility] 03-01-2022 12:58-0400 Heart rate 98 /min Ermias Solano MD Work Phone: [facility] 03-01-2022 12:58-0400 Respiratory rate 16 /min Ermias Solano MD Work Phone: [facility] 03-01-2022 12:58-0400 SaO2% (BldA) [Mass fraction] 99 % Ermias Solano MD Work Phone: [facility] 01-10-2022 09:17-0400 Body temperature 97.3 [degF] Lew Verduzco MD Work Phone: [facility] 01-10-2022 09:17-0400 Body weight 62.14 kg Lew Verduzco MD Work Phone: [facility] 01-10-2022 09:17-0400 Diastolic blood pressure 84 mm[Hg] Lew Verduzco MD Work Phone: [facility] 01-10-2022 09:17-0400 Heart rate 84 /min Lew Verduzco MD Work Phone: [facility] 01-10-2022 09:17-0400 Respiratory rate 20 /min Lew Verduzco MD Work Phone: [facility] 01-10-2022 09:17-0400 Systolic blood pressure 120 mm[Hg] Lew Verduzco MD Work Phone: [facility] 12-14-2021 11:01-0400 Heart rate 103 /min Ermias Solano MD Work Phone: [facility] 12-14-2021 11:01-0400 Respiratory rate 16 /min Ermias Solano MD Work Phone: [facility] 12-14-2021 11:01-0400 SaO2% (BldA) [Mass fraction] 97 % Ermias Solano MD Work Phone: [facility] 11-23-2021 08:51-0400 Body weight 61.24 kg Ellen Navarro PA-C Work Phone: [facility] 11-10-2021 10:33-0400 Body weight 61.24 kg Yessica Older 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 Work Phone: [facility] 11-10-2021 10:33-0400 Diastolic blood pressure 82 mm[Hg] Yessica Older 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 Work Phone: [facility] 11-10-2021 10:33-0400 Heart rate 96 /min Yessica Older 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 Work Phone: [facility] 11-10-2021 10:33-0400 Respiratory rate 18 /min Yessica Older 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 Work Phone: [facility] 11-10-2021 10:33-0400 Systolic blood pressure 120 mm[Hg] Yessica Older 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 Work Phone: [facility] 10-10-2021 08:48-0400 Body weight 60.33 kg Yessica Older 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 Work Phone: [facility] 10-10-2021 08:48-0400 Diastolic blood pressure 72 mm[Hg] Yessica Older 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 Work Phone: [facility] 10-10-2021 08:48-0400 Heart rate 82 /min Yessica Older 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 Work Phone: [facility] 10-10-2021 08:48-0400 Respiratory rate 12 /min Yessica Older 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 Work Phone: [facility] 10-10-2021 08:48-0400 Systolic blood pressure 122 mm[Hg] Yessica Older 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 Work Phone: [facility] 08-17-2021 10:38-0400 Body weight 58.51 kg Yesica Goddard MD Work Phone: [facility] 08-17-2021 10:38-0400 Diastolic blood pressure 80 mm[Hg] Yesica Goddard MD Work Phone: [facility] 08-17-2021 10:38-0400 Heart rate 93 /min Yesica Goddard MD Work Phone: [facility] 08-17-2021 10:38-0400 SaO2% (BldA) [Mass fraction] 96 % Yesica Goddard MD Work Phone: [facility] 08-17-2021 10:38-0400 Systolic blood pressure 124 mm[Hg] Yesica Goddard MD Work Phone: [facility] 08-17-2021 10:23-0400 Body height 152.4 cm Respiratory Wstr Work Phone: [facility] 08-17-2021 10: Body weight 58.51 kg Respiratory Wstr Work Phone: [facility] 08-17-2021 10:040 Heart rate 93 /min Respiratory Wstr Work Phone: [facility] 08-17-2021 10: Respiratory rate 14 /min Respiratory Wstr Work Phone: [facility] 08-17-2021 10:040 SaO2% (BldA) [Mass fraction] 96 % Respiratory Wstr Work Phone: [facility] Encounters Encounter Date Encounter Type Care Provider Facility Start: 05-11-2023 End: 05-12-2023 ambulatory EDDA OCONNOR Facility:[facility] Start: 05-01-2023 End: 05-01-2023 ambulatory EDDA Kelli OCONNOR Facility:[facility] Start: 05-01-2023 End: 05-01-2023 Office outpatient visit 40 minutes Edda Oconnor MD Work Phone: [facility] [place] Procedures Date Procedure Procedure Detail Performing Clinician Start: 05-11-2023 Lipid 1995 panel - S sergio or Plasma Edda Oconnor MD Work Phone: Start: 01-08-2023 ALLERGEN SKIN TEST-PENICILLIN Khanh Antonio MD Work Phone: Start: 01-08-2023 INHALANT 32 ALLERGEN SKIN TEST Khanh Antonio MD Work Phone: Start: 07-04-2022 Lipid 1995 panel - S sergio or Plasma Khanh Antonio MD Work Phone: Start: 06-04-2022 Nitric oxide gas determination Ellen Navarro PA-C Work Phone: Start: 06-04-2022 Spmtry w/vc expirato ry patrica w/wo mxml vol vntj Ellen Navarro PA-C Work Phone: Start: 05-08-2022 Dxa bone density micah dy 1/> sites axial tammieel Edda Oconnor MD Work Phone: Start: 03-23-2022 Mri spinal canal lum bar w/o contrast material Ermias Solano MD Work Phone: Start: 11-10-2021 Urnls dip stick/tabl et rgnt auto w/o microscopy Yessica Older 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 Work Phone: Start: 09-04-2021 End: 09-04-2021 Screening mammography bi 2-view breast inc cad Lew Verduzco MD Work Phone: Start: 08-17-2021 Nitric oxide gas determination Ellen MONTANO-C Work Phone: Start: 08-17-2021 Spmtry w/vc expirato ry patrica w/wo mxml vol vntj Ellen Navarro PA-C Work Phone: Start: 06-20-2020 Mammography Lew Summers MD Work Phone: Start: 04-07-2018 Colonoscopy Lew Summers MD Work Phone: Plan of Treatment Date Care Activity Detail Author Start: 08-29-2030 Urine microalbumin profile [facility] Start: 05-11-2028 Lipid panel Lipid Screening [facility] Start: 07-05-2027 Lipid 1996 panel - S sergio or Plasma Lipid Screening [facility] Start: 07-05-2027 LIPID SCREEN LIPID SCREEN [facility] Start: 04-10-2027 LIPID SCREEN LIPID SCREEN [facility] Start: 06-20-2026 LIPID SCREEN LIPID SCREEN [facility] Start: 05-11-2026 Diabetes Screening Diabetes Screenin [facility] Start: 01-02-2026 DIABETES SCREEN DIABETES SCREEN [place] Start: 01-02-2026 Diabetes Screening Diabetes Screenin g [facility] Start: 07-04-2025 DIABETES SCREEN DIABETES SCREEN [place] Start: 04-10-2025 DIABETES SCREEN DIABETES SCREEN [place] Start: 05-01-2024 Annual PCP Team 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 Shipping Clerk hugh Disease Visit Annual PCP Team Chronic Disease Visit [facility] Start: 05-01-2024 Covid-19 Vaccine (#1) Covid-19 Vacci ne (#1) [facility] Immunizations Immunization Date Immunization Notes Care Provider Autumn evans 01-30-2023 pneumococcal (PCV20) vaccine, 20 valent (PREVNAR 20) Edda Oconnor MD Work Phone: [facility] Work Phone: 08-29-2020 tetanus toxoid, redu sekou diphtheria toxoid, and acellular pertussis vaccine, adsorbed Lew Verduzco MD Work Phone: [facility] Work Phone: 04-25-2018 influenza virus vacc ine, unspecified formulation Khanh Antonio MD Work Phone: [facility] 03-30-2015 tetanus and diphther ia toxoids, adsorbed, preservative free, for adult use (2 Lf of tetanus toxoid and 2 Lf of diphtheria toxoid) Lew Verduzco MD Work Phone: [facility] 03-09-2008 tetanus toxoid, redu sekou diphtheria toxoid, and acellular pertussis vaccine, adsorbed Lew Verduzco MD Work Phone: [facility] Work Phone: 04-08-2006 pneumococcal polysaccharide vaccine, 23 valent Lew Verduzco MD Work Phone: [facility] Work Phone: Payers Date Payer Category Payer Medicare [employer] [place] [facility] [id number] 2012-Present [phone] [id number] [facility] [address] [facility] [id number] 2012 Medicare [employer] [facility] [place] [place] [id number] 2012-Present [phone] [place] [place] [address] [facility] [id number] 2012 Unknown [id number] Social History Date Type Detail Facility Start: 03-17-2018 End: 06-04-2022 Tobacco smoking status NHIS Never smoked tobacco [facility] Start: 07-10-2021 End: 05-01-2023 Alcohol intake Ex-drinker (finding) [facility] Start: 10-22-2019 End: 03-16-2021 History SDOH Alcohol Frequency 1 [facility] Start: 03-13-2020 History SDOH Alcohol Std Drinks 98 [facility] Start: 06-28-2019 End: 04-04-2022 History SDOH Social Connections Phone 5 [facility] Start: 06-28-2019 End: 04-04-2022 History SDOH Social Connections Membership 2 [facility] Start: 03-13-2020 End: 04-04-2022 History SDOH Social Connections Living 8 [facility] Start: 03-13-2020 End: 04-04-2022 History SDOH Financial 3 [facility] Start: 06-28-2019 Education 12 [facility] Start: 03-17-2018 End: 06-04-2022 Tobacco Comment ETS from parents in childhood home. Currently also has some household ETS. 03/17/2018. [facility] Start: 1960 Sex Assigned At Female C [facility] Start: 06-10-2021 End: 04-07-2022 Exposure to SARS-CoV-2 (event) Not sure [facility] Start: 03-17-2018 End: 06-04-2022 Tobacco use and exposure Smokeless tobacco non-user [facility] Work Phone: Start: 04-04-2022 History SDOH Alcohol Std Drinks 0 [facility] Start: 04-03-2022 End: 10-23-2022 History of Social function [facility] Start: 04-03-2022 End: 10-23-2022 Social connection and isolation panel [facility] Do you belong to any clubs or organizations such as mandaen groups, unions, fraternal or athletic groups, or school groups? No [facility] Are you now , , , , never or living with a partner? Living with partner [facility] How often to you hav e a drink containing alcohol? Never [facility] How many standard dr inks containing alcohol do you have on a typical day? Patient does not drink [facility] How hard is it for y ou to pay for the very basics like food, housing, medical care, and heating Somewhat hard [facility] Do you feel stress - tense, restless, nervous, or anxious, or unable to sleep at night because your mind is troubled all the time - these days [OSQ] Very much [facility] (I/We) worried wheth er (my/our) food would run out before (I/we) got money to buy more. Never true [facility] (I/We) worried wheth er (my/our) food would run out before (I/we) got money to buy more. Sometimes true [facility] (I/We) worried wheth er (my/our) food would run out before (I/we) got money to buy more. DK or Refused [facility] Clinical Notes 09-15-2020 to 05-01-2023 Patient InstructionsEdda Oconnor MD - 05/01/2023 1:44 PM ESTTelephone Encounter - Melanie Steel MSW - 02/06/2023 9:21 AM EDTTelephone Encounter - Melanie Steel MSW - 01/30/2023 1:12 PM EDT Note Date & Type Note Facility 05-01-2023 Note HNO ID: [id number] Author: EDDA OCONNOR MD Service: ? Author Type: Physician Type: Progress Notes Filed: 05/26/2023 23:44 Note Text: This note was created using NoteWriter. Subjective Chey Jeffers is a 62 year old female. No chief complaint on file. SUBJECTIVE: Chey Jeffers is a 62 year old year old lady here today for 6 month follow up appointment for review of medical conditions. Stopped taking Wellbutrin since seemed to maker her sleepy. Not sleeping at night well to take care of family. Fibromyalgia also makes her have issues with pain and anxiety. Mother with problems with memory but also not wearing her oxygen like supposed to; also not telling daughter when taking SL NTG. Also taking care of brother. Cannot nap in day because needs to take care of family. Laurent helps some in AM with her brother. Porokeratosis on biopsy of leg lesion done through [facility]. Needing lesion on right side of nose removed in [place] through [facility], Has inus infection symptoms ongoing since March. Could not smell or taste food for [place] or [place]. Pain and pressure in sinuses. Blowing out large chunks of mucus. Sneezing a lot. Ears itching. Noted fevers and chills and night sweats and hot flashes. Cannot get in with Dr. Mazariegos soon enough, PAST MEDICAL HISTORY Diagnosis Date Abnormal ultrasound of breast 06/17/2013 Acute gastritis Ankylosing spondylitis (HCC) Anxiety and depression 06/12/2005 Bilateral renal cysts 03/11/2015 Calculus of kidney Dysthymic disorder Depression (non-psychotic) Enterocolitis due to Clostridium difficile 01/12/2015 Esophageal reflux HNP (herniated nucleus pulposus), lumbar 08/22/2011 Intrinsic asthma, unspecified 08/05/2008 Irritable bowel syndrome Irritable bowel assisted 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 01/16/2017 Menopause syndrome 01/19/2005 Myalgia and myositis, unspecified Nasal polyposis Polypectomy 03/2017 Dr. Mazariegos [facility]. Pure hypercholesterolemia Serrated adenoma of colon 07/29/2014 Symptomatic menopausal or female climacteric states Unspecified asthma(493.90) Unspecified sinusitis (chronic) 06/21/2008 Current Outpatient Medications Medication Sig montelukast (SINGULAIR) 10 mg tablet Take 1 tablet by mouth daily at bedtime. Estradiol (ESTRACE) 1 mg tablet Take 1 tablet by mouth once daily. clonazePAM (KLONOPIN) 0.5 mg tablet Take 1 tablet by mouth twice daily for 180 days. GEMTESA 75 mg tablet Take 1 tablet by mouth every afternoon. buPROPion (WELLBUTRIN) 75 mg tablet Take 1 tablet by mouth twice daily. budesonide-formoterol (SYMBICORT) 160-4.5 mcg/actuation inhaler Inhale 2 Puffs as instructed twice daily. albuterol HFA (VENTOLIN HFA) 90 mcg/actuation inhaler Inhale 2 Puffs as instructed every 4 hours as needed for wheezing/shortness of breath. lansoprazole (PREVACID) 30 mg capsule Take 1 capsule by mouth once daily. simvastatin (ZOCOR) 40 mg tablet Take 1 tablet by mouth daily at bedtime. imipramine HCl (TOFRANIL) 25 mg tablet Take 2 tablets by mouth daily at bedtime. Albuterol Sulfate 1.25 mg/3 mL nebulizer solution Use 1 Ampule via nebulizer every 6 hours as needed for wheezing/shortness of breath. ipratropium (ATROVENT) 0.02 % nebulizer solution Use 2.5 mL via nebulizer four times daily as needed for wheezing/shortness of breath. sucralfate (CARAFATE) 1 gram tablet Take 1 tablet by mouth before meals and at bedtime. calcium carb/vit D2/minerals (CALTRATE PLUS ORAL) Take 1 capsule by mouth once daily. fluticasone (FLONASE) 50 mcg/actuation nasal spray Use 1 Marston in each nostril twice daily. VIA SPACER THEN RINSE AND GARGLE MOUTH WITH WATER. LOPERAMIDE HCL (IMODIUM ORAL) Take by mouth as needed. fexofenadine (NAN) 180 mg ORAL tablet Take one(1) tablet daily. vit e acetate/gly/dimeth/water(CETAPHIL MOISTURIZING LOTION) apply twice daily No current facility-administered medications for this visit. Review of Systems Objective BP 140/71 Pulse 104 Temp (!) 35.7 ?C (96.2 ?F) Resp 18 Wt 67.1 kg (148 lb) SpO2 97% BMI 28.90 kg/m? Last 5 Encounter Wt Readings: Date: Wt: 05/01/2023 67.1 kg (148 lb) 01/30/2023 66.2 kg (146 lb) 01/18/2023 67 kg (147 lb 12.8 oz) 01/08/2023 66.2 kg (146 lb) 01/02/2023 66.7 kg (147 lb) No waist measurement recorded Estimated body mass index is 28.9 kg/m? as calculated from the following: Height as of 12/03/22: 152.4 cm (5'). Weight as of this encounter: 67.1 kg (148 lb). Last 5 Encounter BP Readings: Date: BP: 05/01/2023 140/71 01/30/2023 120/80 01/18/2023 138/74 01/08/2023 113/70 01/02/2023 126/90 05/01/23 1349 05/01/23 1445 BP: 140/71 126/78 Pulse: 104 Resp: 18 Temp: (!) 35.7 ?C (96.2 ?F) SpO2: 97% Weight: 67.1 kg (148 lb) Physical Exam Constitutional: Appearance: Normal appearance. HENT: Head: Normocephalic. Eyes: Conjunctiva/sclera: Conjunctivae normal. Cardiovascular: Rate and Rhythm: Normal r (more content not included)... [facility] 05-01-2023 Instructions Edda Oconnor MD - 05/01/2023 2:24 PM EST Total calcium per day 1200 to 1500 mg per day Vitamin D--need to add 2000 units to whatever you have already been taking with the calcium with D pills. Avoid canola, vegetable, palm and soybean oils. Stick with olive oil, avocado oil, coconut oil. Butter in moderation okay. Find time to do some relieving (whether sitting in a quiet room, taking a walk, doing yoga, reading, etc). documented in this encounter [facility] 05-01-2023 History of Present illness Narrative This note was created using Myreksriter. Subjective Chey Jeffers is a 62 year old female. No chief complaint on file. SUBJECTIVE: Chey Jeffers is a 62 year old year old lady here today for 6 month follow up appointment for review of medical conditions. Stopped taking Wellbutrin since seemed to maker her sleepy. Not sleeping at night well to take care of family. Fibromyalgia also makes her have issues with pain and anxiety. Mother with problems with memory but also not wearing her oxygen like supposed to; also not telling daughter when taking SL NTG. Also taking care of brother. Cannot nap in day because needs to take care of family. Laurent helps some in AM with her brother. Porokeratosis on biopsy of leg lesion done through [facility]. Needing lesion on right side of nose removed in [place] through [facility], Has inus infection symptoms ongoing since March. Could not smell or taste food for Thanksgiving or [place]. Pain and pressure in sinuses. Blowing out large chunks of mucus. Sneezing a lot. Ears itching. Noted fevers and chills and night sweats and hot flashes. Cannot get in with Dr. Mazariegos soon enough, PAST MEDICAL HISTORY Diagnosis Date Abnormal ultrasound of breast 06/17/2013 Acute gastritis Ankylosing spondylitis (HCC) Anxiety and depression 06/12/2005 Bilateral renal cysts 03/11/2015 Calculus of kidney Dysthymic disorder Depression (non-psychotic) Enterocolitis due to Clostridium difficile 01/12/2015 Esophageal reflux HNP (herniated nucleus pulposus), lumbar 08/22/2011 Intrinsic asthma, unspecified 08/05/2008 Irritable bowel syndrome Irritable bowel assisted 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 01/16/2017 Menopause syndrome 01/19/2005 Myalgia and myositis, unspecified Nasal polyposis Polypectomy 03/2017 Dr. Mazariegos [facility]. Pure hypercholesterolemia Serrated adenoma of colon 07/29/2014 Symptomatic menopausal or female climacteric states Unspecified asthma(493.90) Unspecified sinusitis (chronic) 06/21/2008 Current Outpatient Medications Medication Sig montelukast (SINGULAIR) 10 mg tablet Take 1 tablet by mouth daily at bedtime. Estradiol (ESTRACE) 1 mg tablet Take 1 tablet by mouth once daily. clonazePAM (KLONOPIN) 0.5 mg tablet Take 1 tablet by mouth twice daily for 180 days. GEMTESA 75 mg tablet Take 1 tablet by mouth every afternoon. buPROPion (WELLBUTRIN) 75 mg tablet Take 1 tablet by mouth twice daily. budesonide-formoterol (SYMBICORT) 160-4.5 mcg/actuation inhaler Inhale 2 Puffs as instructed twice daily. albuterol HFA (VENTOLIN HFA) 90 mcg/actuation inhaler Inhale 2 Puffs as instructed every 4 hours as needed for wheezing/shortness of breath. lansoprazole (PREVACID) 30 mg capsule Take 1 capsule by mouth once daily. simvastatin (ZOCOR) 40 mg tablet Take 1 tablet by mouth daily at bedtime. imipramine HCl (TOFRANIL) 25 mg tablet Take 2 tablets by mouth daily at bedtime. Albuterol Sulfate 1.25 mg/3 mL nebulizer solution Use 1 Ampule via nebulizer every 6 hours as needed for wheezing/shortness of breath. ipratropium (ATROVENT) 0.02 % nebulizer solution Use 2.5 mL via nebulizer four times daily as needed for wheezing/shortness of breath. sucralfate (CARAFATE) 1 gram tablet Take 1 tablet by mouth before meals and at bedtime. calcium carb/vit D2/minerals (CALTRATE PLUS ORAL) Take 1 capsule by mouth once daily. fluticasone (FLONASE) 50 mcg/actuation nasal spray Use 1 Marston in each nostril twice daily. VIA SPACER THEN RINSE AND GARGLE MOUTH WITH WATER. LOPERAMIDE HCL (IMODIUM ORAL) Take by mouth as needed. fexofenadine (NAN) 180 mg ORAL tablet Take one(1) tablet daily. vit e acetate/gly/dimeth/water(CETAPHIL MOISTURIZING LOTION) apply twice daily No current facility-administered medications for this visit. Review of Systems Objective BP 140/71 Pulse 104 Temp (!) 35.7 C (96.2 F) Resp 18 Wt 67.1 kg (148 lb) SpO2 97% BMI 28.90 kg/m Last 5 Encounter Wt Readings: Date: Wt: 05/01/2023 67.1 kg (148 lb) 01/30/2023 66.2 kg (146 lb) 01/18/2023 67 kg (147 lb 12.8 oz) 01/08/2023 66.2 kg (146 lb) 01/02/2023 66.7 kg (147 lb) No waist measurement recorded Estimated body mass index is 28.9 kg/m as calculated from the following: Height as of 12/03/22: 152.4 cm (5'). Weight as of this encounter: 67.1 kg (148 lb). Last 5 Encounter BP Readings: Date: BP: 05/01/2023 140/71 01/30/2023 120/80 01/18/2023 138/74 01/08/2023 113/70 01/02/2023 126/90 05/01/23 1349 05/01/23 1445 BP: 140/71 126/78 Pulse: 104 Resp: 18 Temp: (!) 35.7 C (96.2 F) SpO2: 97% Weight: 67.1 kg (148 lb) Physical Exam Constitutional: Appearance: Normal appearance. HENT: Head: Normocephalic. Eyes: Conjunctiva/sclera: Conjunctivae normal. Cardiovascular: Rate and Rhythm: Normal rate and regular rhythm. Heart sounds: Normal heart sounds. Pulmonary: Effort: Pulmonary effort is normal. Breath sounds: Normal breath sounds. Musculoskeletal: Right lower leg: No edema. Left lower leg: No edema. Skin: General: Skin is warm and dry. Neurological: General: No focal deficit present. Mental Status: She is alert and oriented to person, place, and time. Psychiatric: Attention and Perception: Attention and perception normal. Mood and Affect: Mood and affect normal. Speech: Speech normal. Behavior: Behavior normal. Thought Content: Thought content normal. Judgment: Judgment normal. Component Latest Ref Rng & Units 04/10/2022 07/04/2022 12/03/2022 01/02/2023 WBC 3.70 - 11.00 k/uL 9.31 10.85 RBC 3.90 - 5.20 m/uL 4.91 5.09 Hemoglobin 11.5 - 15.5 g/dL 13.4 13.9 Hematocrit 36.0 - 46.0 % 43.4 44.6 MCV 80.0 - 100.0 fL 88.4 87.6 MCH 26.0 - 34.0 pg 27.3 27.3 MCHC 30.5 - 36.0 g/dL 30.9 31.2 RDW-CV 11.5 - 15.0 % 13.4 14.6 Platelet Count 150 - 400 k/uL 336 342 MPV 9.0 - 12.7 fL 10.3 10.9 Neut% % 65.0 Abs Neut (ANC) 1.45 - 7.50 k/uL 7.05 Lymph% % 18.8 Abs Lymph 1.00 - 4.00 k/uL 2.04 [place]% % 7.5 Abs [place] <0.87 k/uL 0.81 Eosin% % 6.8 Abs Eosin <0.46 k/uL 0.12 0.74 (H) Baso% % 1.0 Abs Baso <0.11 k/uL 0.11 (H) Immature Gran % % 0.9 IMMATURE GRANS (ABS) <0.10 k/uL 0.10 (H) NRBC /100 WBC 0.0 Absolute nRBC <0.01 k/uL <0.01 <0.01 DTYPE Auto Protein, Total 6.3 - 8.0 g/dL 6.5 6.8 6.7 Albumin 3.9 - 4.9 g/dL 4.1 3.9 4.3 Calcium 8.5 - 10.2 mg/dL 8.9 9.4 9.6 Bilirubin, Total 0.2 - 1.3 mg/dL 0.3 0.3 0.2 Alkaline Phosphatase 34 - 123 U/L 74 71 80 AST 13 - 35 U/L 17 20 18 ALT 7 - 38 U/L 9 13 14 Glucose 74 - 99 mg/dL 85 90 93 BUN 7 - 21 mg/dL 13 11 13 Creatinine 0.58 - 0.96 mg/dL 1.02 (H) 0.91 0.98 (H) Sodium 136 - 144 mmol/L 139 141 139 Potassium 3.7 - 5.1 mmol/L 4.4 4.2 4.4 Chloride 97 - 105 mmol/L 104 106 (H) 105 CO2 22 - 30 mmol/L 26 26 24 Anion Gap 9 - 18 mmol/L 9 9 10 eGFR >=60 mL/min/1.73m 63 72 65 Cholesterol, Total <200 mg/dL 180 239 (H) Triglyceride <150 mg/dL 119 137 HDL Cholesterol >39 mg/dL 59 67 Non HDL Cholesterol <130 mg/dL 121 172 (H) Fasting Time hrs 13 13 VLDL Cholesterol <30 mg/dL 24 27 TC:HDL Ratio <5.10 3.05 3.57 LDL Cholesterol <100 mg/dL 97 145 (H) LDL:HDL Ratio <2.54 1.64 2.16 Hemoglobin A1C 4.3 - 5.6 % 5.8 (H) Estimated Average Glucose mg/dL 120 Magnesium 1.7 - 2.3 mg/dL 2.1 Vitamin D 25 Hydroxy 31.0 - 80.0 ng/mL 28.9 (L) 29.0 (L) IgE <114.0 kU/l 60.1 TSH 0.270 - 4.200 mIU/L 1.300 Assessment and Plan Encounter Diagnosis ICD-10-CM 1. Osteopenia, unspecified location M85.80 COMP METABOLIC PANEL VITAMIN D 25 HYDROXY 2. Pure hypercholesterolemia E78.00 LIPID PANEL BASIC 3. Vitamin D deficiency E55.9 4. Elevated hemoglobin A1c R73.09 HGB A1C COMP METABOLIC PANEL 5. Other acute recurrent sinusitis J01.81 levoFLOXacin (LEVAQUIN) 750 mg tablet 6. Acute vaginitis N76.0 fluconazole (DIFLUCAN) 150 mg tablet 7. Encounter for therapeutic drug monitoring Z51.81 HGB A1C COMP METABOLIC PANEL CBC LIPID PANEL BASIC MAGNESIUM BLD VITAMIN D 25 HYDROXY Above issues addressed with patient. Patient involved in shared decision making for management of medical issues. History and medications reviewed. Epic updated as needed Refills and/or prescriptions taken care of and meds adjusted as indicated after reviewed history, exam and labs. Health Maintenance reviewed. Updated record and/or ordered tests as recorded. Encouraged on efforts at healthy diet and regular exercise and adequate sleep. Discussed above issues and management. Labs as noted. Continue present management.Further evaluation and treatment as indicated. I spent a total of 42 minutes on the date of the service which included [id number] patient care, completing clinical documentation, obtaining and/or reviewing separately obtained history, performing a medically appropriate examination, counseling and educating the patient/family/caregiver, ordering medications, tests, or procedures, independently interpreting results (not separately reported), and communicating results to the patient/family/caregiver. Edda Oconnor MD documented in this encounter [facility] 02-06-2023 Miscellaneous Notes Sw spoke with patient regarding caregiver support needs. Patient reports that she takes care of her brother with disabilities and also assists with care of elderly mother that lives down the road. Patient notes that she is co guardian of brother. Her mother also shares guardianship of brother. Brother lives time clock repairer with patient. Patient reports that brother needs time clock repairer care. Patient reports that brother is non verbal. Patient has to help brother with toileting, eating,bathing/grooming,mobility. Sw and patient discussed Board [facility] for services for brother. Patient reports that brother has received services from [facility]. The last patient spoke with egg caser from [facility] was this spring and was told they did not have any home care aides available to assist with care. Patient has not had contact since with [facility] clinical case manager. Sw and patient also discussed [facility] [employer]. Sw notes [facility] [employer] could be helpful to assist patient with meeting in the home and helping with patient social service needs. Patient would like Ward to send her information regarding [facility]. Ward will obtain new [facility] information and mail to patient along with [facility] Older Adult resource guide. Sw left message for patient to return call to discuss caregiver social service needs. Ward will also send patient My Chart message. documented in this encounter [facility] 02-04-2023 Miscellaneous Notes Pt called and is notified of providers message and instructions. Pt voices understanding. Pt states she also needs Diflucan called in because she was on Amoxicillin and Levaquin, and she is allergic to the Amoxicillin and now she has a yeast infection. Patient has been identified by name and date of : Yes, Provider Dr Oconnor Date 02/04/23 Time 1318. Patient phones for refill(s): Requested Prescriptions Pending Prescriptions Disp Refills fluconazole (DIFLUCAN) 150 mg tablet 1 tablet 0 Sig: Take 1 tablet by mouth one time only for 1 dose. Signed Prescriptions Disp Refills predniSONE (DELTASONE) 20 mg tablet 10 tablet 0 Sig: Take 2 tablets by mouth once daily for 5 days. Authorizing Provider: NUNO BENSON Date of last office visit in primary care: 01/30/23 Future visit: 05/01/23 Last 2 Encounter Wt Readings: Date: Wt: 01/30/2023 66.2 kg (146 lb) 01/18/2023 67 kg (147 lb 12.8 oz) Previous labs/tests for medication: Blood Pressure: BUN (mg/dL) Date Value 01/02/2023 13 04/28/2019 11 Sodium (mmol/L) Date Value 01/02/2023 139 04/28/2019 140 Last 1 Encounter BP Readings: Date: BP: 01/30/2023 120/80 Liver Function: ALT (U/L) Date Value 01/02/2023 14 04/28/2019 7 AST (U/L) Date Value 01/02/2023 18 04/28/2019 20 Please advise. Thank you. Dulce Centeno, RN Please let her know I sent a short term prednisone burst for her. Spoke with pt and her left arm where she received the pneumonia shot area is dark red itching and broke out in hives. Hives are appearing above the area, Pt is itching arm up neck and on her head. Had pain earlier buy pain has resolved. Denies. no problems swallowing, vision problems, tongue swelling or fever. Pt reports she has had reactions before and the prednisone always help. Please advise pt. Josseline Jc LPN Pt on an antibiotic for a sinus infection from and requesting Diflucan for a yeast infection. Pt states she also got pneumonia shot in her arm and now it is itching and red. Wants a medrol pack. Call got disconnected. Will call her back. documented in this encounter [facility] 01-30-2023 Note HNO ID: [id number] Author: Nuno Benson APRN.JACKIE Service: ? Author Type: Nurse Practitioner Type: Progress Notes Filed: 01/30/2023 11:28 AM Note Text: SUBJECTIVE Chey Jeffers is a 62 year old female here today for a check up on her medical problems. Chief Complaint Patient presents with: Recheck HPI Chey Jeffers is a 62 year old female. Here today for follow up. Recently seen with allergy/immunology and had a bad rash after. Seen in for this. Improving. Still with leg soreness. Held her statin but not helpful. Going to go to the chiropractor. Thinks it is fibro. Concerns of a few moles she has, on right side of nose. Middle of back. Still notes a lot of stress at home with her relationship with her significant other, mother and brother. She is her family's primary caregiver. Tolerating lower dose Wellbutrin okay. Just feeling overwhelmed. Her medications were reviewed today and her list is now up to date. Medications Current Outpatient Medications Medication Sig montelukast (SINGULAIR) 10 mg tablet Take 1 tablet by mouth daily at bedtime. Estradiol (ESTRACE) 1 mg tablet Take 1 tablet by mouth once daily. clonazePAM (KLONOPIN) 0.5 mg tablet Take 1 tablet by mouth twice daily for 180 days. GEMTESA 75 mg tablet Take 1 tablet by mouth every afternoon. buPROPion (WELLBUTRIN) 75 mg tablet Take 1 tablet by mouth twice daily. budesonide-formoterol (SYMBICORT) 160-4.5 mcg/actuation inhaler Inhale 2 Puffs as instructed twice daily. albuterol HFA (VENTOLIN HFA) 90 mcg/actuation inhaler Inhale 2 Puffs as instructed every 4 hours as needed for wheezing/shortness of breath. lansoprazole (PREVACID) 30 mg capsule Take 1 capsule by mouth once daily. simvastatin (ZOCOR) 40 mg tablet Take 1 tablet by mouth daily at bedtime. imipramine HCl (TOFRANIL) 25 mg tablet Take 2 tablets by mouth daily at bedtime. Albuterol Sulfate 1.25 mg/3 mL nebulizer solution Use 1 Ampule via nebulizer every 6 hours as needed for wheezing/shortness of breath. ipratropium (ATROVENT) 0.02 % nebulizer solution Use 2.5 mL via nebulizer four times daily as needed for wheezing/shortness of breath. sucralfate (CARAFATE) 1 gram tablet Take 1 tablet by mouth before meals and at bedtime. calcium carb/vit D2/minerals (CALTRATE PLUS ORAL) Take 1 capsule by mouth once daily. fluticasone (FLONASE) 50 mcg/actuation nasal spray Use 1 Marston in each nostril twice daily. VIA SPACER THEN RINSE AND GARGLE MOUTH WITH WATER. LOPERAMIDE HCL (IMODIUM ORAL) Take by mouth as needed. fexofenadine (NAN) 180 mg ORAL tablet Take one(1) tablet daily. vit e acetate/gly/dimeth/water(CETAPHIL MOISTURIZING LOTION) apply twice daily No current facility-administered medications for this visit. ALLERGIES Allergen Reactions Aspirin [Salicylate* Swelling, Shortness of Breath wheezing,swelling lips,rash,hives Codeine Hives Vicodin [Hydrocodon* Hives Cefdinir Itching Itchy scaly rash. (Patient may take penicillin and other penicillin type antibiotics. See allergy visit on 01/08/23) Demerol [Meperidine* Rash Ambien [Zolpidem] Intolerance Was sleepwalking (arranging books but hull not recall) Amoxicillin Rash Rash a few days into a course of treatment Bactrim [Sulfametho* uncertain Budesonide Rash Celexa [Citalopram * GI Upset Doxy [Doxycycline] rash and asthma Durezol [Diflupredn* Rash Ibuprofen Shortness of Breath Lexapro [Escitalopr* GI Upset Lyrica [Pregabalin] Mental Status Change dizzy Macrobid [Nitrofura* Diarrhea Maprotiline Itching Monurol [Fosfomycin] Diarrhea Mucomyst [Acetylcys* Cough increase wheezing Oxycodone Shortness of Breath Penicillins Hives Allergy skin tests to penicillin were negative. The patient took a test dose of amoxicillin and tolerated this without adverse reaction. The patient is at low risk for a severe, immediate, IgE-mediated reaction to penicillin, amoxicillin and other penicillin-type antibiotics. Skin tests are unreliable for predicting delayed reactions. Prednisone Itching Toradol [Ketorolac * Swelling Tylenol [Acetaminop* Intolerance asthma Ultram [Tramadol Hc* Other: See Comments chest pains Vancomycin Other: See Comments Wheezing after taking, legs swollen and tongue swelling and scratchy neck Venlafaxine GI Upset Zithromax [Azithrom* Itching Mirtazapine Other: See Comments Hand shakes. 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 [facility] 01-18-2023 Instructions Jenny Salas APRN.BRIM SHAPER - 01/18/2023 1:53 PM EDT ASSESSMENT/PLAN: 1. Chronic sinusitis, unspecified location - ICD9: 473.9, ICD10: J32.9 (primary diagnosis) - Will begin treatment with Levaquin- patient educated on risks of Levaquin, specifically tendon rupture. She would like to proceed with treatment. - The patient should also be given OTC decongestants prn, OTC cough and cold meds as needed, and warm salt water gargles, throat lozenges and/or OTC throat spray as needed for the first 5-7 days of treatment. - Supportive care with plenty of fluids, rest, and analgesia prn. - Follow up in 3-5 days if symptoms persist or worsen. 2. Allergic reaction to drug, initial encounter - ICD9: 995.27, ICD10: T78.40XA - Medrol taper - Follow up with PCP as needed - Amoxicillin added to allergy list E Yohana [employer] OFFBEARER Student TEACHING PROVIDER (Physician/PA/VOLCANOLOGY PROFESSOR) NOTE OF PERSONAL INVOLVEMENT IN CARE: I have personally seen and examined the patient and performed the medical decision-making components. I have reviewed the Advanced Practice Registered Nurse (VOLCANOLOGY PROFESSOR) Student's documentation and verified the findings in the note as written. Any additions or changes are noted in bold/italics. Signature: Jenny Salas Date: 01/18/2023 Time: 1:52 PM documented in this encounter [facility] 01-18-2023 Note HNO ID: [id number] Author: Jenny Salas APRN.BRIM SHAPER Service: ? Author Type: Nurse Practitioner Type: Progress Notes Filed: 01/18/2023 1:53 PM Note Text: Subjective HPI ROS Objective Physical Exam [facility] 01-18-2023 Note HNO ID: [id number] Author: Jenny Salas APRN.BRIM SHAPER Service: ? Author Type: Nurse Practitioner Type: Progress Notes Filed: 01/18/2023 1:53 PM Note Text: This note was created using [email or web address]. Subjective Chey Jeffers is a 62 year old female. Patient presents with rash across most of her body that occurred after several days into a course of amoxicillin for a sinus infection. Patient noticed the rash four days ago, stopped taking amoxicillin, and used cortisone cream, benadryl, and nan with no improvement in symptoms. Rash is itching. She states that she always gets Levaquin and medrol taper for her sinus infections and that they resolve her symptoms. She denies difficulty breathing. The history is provided by the patient. Rash Associated symptoms include congestion and rhinorrhea. Pertinent negatives include no cough, fever, shortness of breath or sore throat. Review of Systems Constitutional: Negative for chills and fever. HENT: Positive for congestion, rhinorrhea, sinus pressure and sinus pain. Negative for sore throat. Respiratory: Negative for cough, chest tightness, shortness of breath and wheezing. Gastrointestinal: Positive for nausea. Skin: Positive for rash. Neurological: Positive for headaches. All other systems reviewed and are negative. Objective BP 138/74 Pulse 113 Temp 36.6 ?C (97.8 ?F) Resp 20 Wt 67 kg (147 lb 12.8 oz) SpO2 98% BMI 28.87 kg/m? PAST MEDICAL HISTORY Diagnosis Date Abnormal ultrasound of breast 06/17/2013 Acute gastritis Ankylosing spondylitis (HCC) Anxiety and depression 06/12/2005 Bilateral renal cysts 03/11/2015 Calculus of kidney Dysthymic disorder Depression (non-psychotic) Enterocolitis due to Clostridium difficile 01/12/2015 Esophageal reflux HNP (herniated nucleus pulposus), lumbar 08/22/2011 Intrinsic asthma, unspecified 08/05/2008 Irritable bowel syndrome Irritable bowel assisted 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 01/16/2017 Menopause syndrome 01/19/2005 Myalgia and myositis, unspecified Nasal polyposis Polypectomy 03/2017 Dr. Mazariegos [facility]. Pure hypercholesterolemia Serrated adenoma of colon 07/29/2014 Symptomatic menopausal or female climacteric states Unspecified asthma(493.90) Unspecified sinusitis (chronic) 06/21/2008 PAST SURGICAL HISTORY Procedure Laterality Date CHOLECYSTECTOMY 1998 Cholecystectomy COLONOSCOPY 04/07/2018 COLONOSCOPY FLX DX W/COLLJ SPEC WHEN PFRMD 04/24/2001 Colonoscopy COLONOSCOPY FLX DX W/COLLJ SPEC WHEN PFRMD 06/16/2013 Colonoscopy COLONOSCOPY FLX DX W/COLLJ SPEC WHEN PFRMD 03/10/2014 Colonoscopy COLONOSCOPY FLX DX W/COLLJ SPEC WHEN PFRMD 03/10/2015 Colonoscopy EGD 04/07/2018 ESOPHAGOGASTRODUODENOSCOPY TRANSORAL DIAGNOSTIC 04/24/2001 EGD ESOPHAGOGASTRODUODENOSCOPY TRANSORAL DIAGNOSTIC 07/11/2009 EGD EXCISION NOSE POLYP(S),SIMPLE 2007 Nasal polypectomy, Dr. Mcclelland LAPS COLECTOMY PRTL W/RMVL TERMINAL ILEUM 07/16/2014 NASAL ENDOS,DIAG,UNI/ BILATERAL 02/13/2022 Polyp removal PAST SURGICAL HISTORY OF 2013 left breast biopsy- benign SEPTOPLASTY/SUBMUCOUS RESECJ W/WO CARTILAGE GRF 2006 Septoplasty SINUS SURGERY PROCEDURE Bilateral 04/02/2017 [facility] Dr. Mazariegos. Sinonasal polypectomy, revision maxillary antrostomy, total ethmoidectomy, sphenoidotomy TOTAL ABDOMINAL HYSTERECT W/WO RMVL TUBE OVARY 1992 Hysterectomy, OPAL BSO XCAPSL CTRC RMVL INSJ IO LENS PROSTH W/O ECP 10/10/2013 Cataract Extraction with PC IOL ALLERGIES Aspirin [Salicylates], Codeine, Vicodin [Hydrocodone-Acetaminophen], Cefdinir, Demerol [Meperidine (Pf)], Ambien [Zolpidem], Amoxicillin, Bactrim [Sulfamethoxazole-Trimethoprim], Budesonide, Celexa [Citalopram Hydrobromide], Doxy [Doxycycline], Durezol [Difluprednate], Ibuprofen, Lexapro [Escitalopram Oxalate], Lyrica [Pregabalin], Macrobid [Nitrofurantoin Monohyd/M-Cryst], Maprotiline, Monurol [Fosfomycin], Mucomyst [Acetylcysteine], Oxycodone, Prednisone, Toradol [Ketorolac Tromethamine], Tylenol [Acetaminophen], Ultram [Tramadol Hcl], Vancomycin, Venlafaxine, Zithromax [Azithromycin], and Mirtazapine MEDICATIONS montelukast (SINGULAIR) 10 mg tablet Take 1 tablet by mouth daily at bedtime. Estradiol (ESTRACE) 1 mg tablet Take 1 tablet by mouth once daily. clonazePAM (KLONOPIN) 0.5 mg tablet Take 1 tablet by mouth twice daily for 180 days. GEMTESA 75 mg tablet Take 1 tablet by mouth every afternoon. buPROPion (WELLBUTRIN) 75 mg tablet Take 1 tablet by mouth twice daily. budesonide-formoterol (SYMBICORT) 160-4.5 mcg/actuation inhaler Inhale 2 Puffs as instructed twice daily. albuterol HFA (VENTOLIN HFA) 90 mcg/actuation inhaler Inhale 2 Puffs as instructed every 4 hours as needed for wheezing/shortness of breath. lansoprazole (PREVACID) 30 mg capsule Take 1 capsule by mouth once daily. simvastatin (ZOCOR) 40 mg tablet Take 1 tablet by mouth daily at bedtime. imipramine HCl (TOFRANIL) 25 m (more content not included)... [facility] 01-18-2023 History of Present illness Narrative Subjective HPI ROS Objective Physical Exam Images from the original note were not included. This note was created using [email or web address]. Subjective Chey Jeffers is a 62 year old female. Patient presents with rash across most of her body that occurred after several days into a course of amoxicillin for a sinus infection. Patient noticed the rash four days ago, stopped taking amoxicillin, and used cortisone cream, benadryl, and nan with no improvement in symptoms. Rash is itching. She states that she always gets Levaquin and medrol taper for her sinus infections and that they resolve her symptoms. She denies difficulty breathing. The history is provided by the patient. Rash Associated symptoms include congestion and rhinorrhea. Pertinent negatives include no cough, fever, shortness of breath or sore throat. Review of Systems Constitutional: Negative for chills and fever. HENT: Positive for congestion, rhinorrhea, sinus pressure and sinus pain. Negative for sore throat. Respiratory: Negative for cough, chest tightness, shortness of breath and wheezing. Gastrointestinal: Positive for nausea. Skin: Positive for rash. Neurological: Positive for headaches. All other systems reviewed and are negative. 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 Mazariegos [facility]. Pure hypercholesterolemia Serrated adenoma of colon 07/29/2014 Symptomatic menopausal or female climacteric states Unspecified asthma(493.90) Unspecified sinusitis (chronic) 06/21/2008 PAST SURGICAL HISTORY Procedure Laterality Date CHOLECYSTECTOMY 1998 Cholecystectomy COLONOSCOPY 04/07/2018 COLONOSCOPY FLX DX W/COLLJ SPEC WHEN PFRMD 04/24/2001 Colonoscopy COLONOSCOPY FLX DX W/COLLJ SPEC WHEN PFRMD 06/16/2013 Colonoscopy COLONOSCOPY FLX DX W/COLLJ SPEC WHEN PFRMD 03/10/2014 Colonoscopy COLONOSCOPY FLX DX W/COLLJ SPEC WHEN PFRMD 03/10/2015 Colonoscopy EGD 04/07/2018 ESOPHAGOGASTRODUODENOSCOPY TRANSORAL DIAGNOSTIC 04/24/2001 EGD ESOPHAGOGASTRODUODENOSCOPY TRANSORAL DIAGNOSTIC 07/11/2009 EGD EXCISION NOSE POLYP(S),SIMPLE 2007 Nasal polypectomy, Dr. Mcclelland LAPS COLECTOMY PRTL W/RMVL TERMINAL ILEUM 07/16/2014 NASAL ENDOS,DIAG,UNI/ BILATERAL 02/13/2022 Polyp removal PAST SURGICAL HISTORY OF 2013 left breast biopsy- benign SEPTOPLASTY/SUBMUCOUS RESECJ W/WO CARTILAGE GRF 2007 Septoplasty SINUS SURGERY PROCEDURE Bilateral 04/02/2017 [facility] Dr. Mazariegos. Sinonasal polypectomy, revision maxillary antrostomy, total ethmoidectomy, sphenoidotomy TOTAL ABDOMINAL HYSTERECT W/WO RMVL TUBE OVARY 1993 Hysterectomy, OPAL BSO XCAPSL CTRC RMVL INSJ IO LENS PROSTH W/O ECP 10/10/2013 Cataract Extraction with PC IOL ALLERGIES Aspirin [Salicylates], Codeine, Vicodin [Hydrocodone-Acetaminophen], Cefdinir, Demerol [Meperidine (Pf)], Ambien [Zolpidem], Amoxicillin, Bactrim [Sulfamethoxazole-Trimethoprim], Budesonide, Celexa [Citalopram Hydrobromide], Doxy [Doxycycline], Durezol [Difluprednate], Ibuprofen, Lexapro [Escitalopram Oxalate], Lyrica [Pregabalin], Macrobid [Nitrofurantoin Monohyd/M-Cryst], Maprotiline, Monurol [Fosfomycin], Mucomyst [Acetylcysteine], Oxycodone, Prednisone, Toradol [Ketorolac Tromethamine], Tylenol [Acetaminophen], Ultram [Tramadol Hcl], Vancomycin, Venlafaxine, Zithromax [Azithromycin], and Mirtazapine MEDICATIONS montelukast (SINGULAIR) 10 mg tablet Take 1 tablet by mouth daily at bedtime. Estradiol (ESTRACE) 1 mg tablet Take 1 tablet by mouth once daily. clonazePAM (KLONOPIN) 0.5 mg tablet Take 1 tablet by mouth twice daily for 180 days. GEMTESA 75 mg tablet Take 1 tablet by mouth every afternoon. buPROPion (WELLBUTRIN) 75 mg tablet Take 1 tablet by mouth twice daily. budesonide-formoterol (SYMBICORT) 160-4.5 mcg/actuation inhaler Inhale 2 Puffs as instructed twice daily. albuterol HFA (VENTOLIN HFA) 90 mcg/actuation inhaler Inhale 2 Puffs as instructed every 4 hours as needed for wheezing/shortness of breath. lansoprazole (PREVACID) 30 mg capsule Take 1 capsule by mouth once daily. simvastatin (ZOCOR) 40 mg tablet Take 1 tablet by mouth daily at bedtime. imipramine HCl (TOFRANIL) 25 mg tablet Take 2 tablets by mouth daily at bedtime. Albuterol Sulfate 1.25 mg/3 mL nebulizer solution Use 1 Ampule via nebulizer every 6 hours as needed for wheezing/shortness of breath. ipratropium (ATROVENT) 0.02 % nebulizer solution Use 2.5 mL via nebulizer four times daily as needed for wheezing/shortness of breath. sucralfate (CARAFATE) 1 gram tablet Take 1 tablet by mouth before meals and at bedtime. calcium carb/vit D2/minerals (CALTRATE PLUS ORAL) Take 1 capsule by mouth once daily. fluticasone (FLONASE) 50 mcg/actuation nasal spray Use 1 Marston in each nostril twice daily. VIA SPACER THEN RINSE AND GARGLE MOUTH WITH WATER. LOPERAMIDE HCL (IMODIUM ORAL) Take by mouth as needed. fexofenadine (NAN) 180 mg ORAL tablet Take one(1) tablet daily. vit e acetate/gly/dimeth/water(CETAPHIL MOISTURIZING LOTION) apply twice daily methylPREDNISolone (MEDROL, DYLON,) 4 mg Dose-Pack Follow dosing instructions, take with food. levoFLOXacin (LEVAQUIN) 750 mg tablet Take 1 tablet by mouth once daily for 5 days. amoxicillin (AMOXIL) 875 mg tablet Take 1 tablet by mouth twice daily for 10 days. FAMILY HISTORY Problem Relation Age of Onset Emphysema Mother diabetic Heart Mother Blockage and she needs a bypass, but her COPD prevents Emphysema Father Heart Father Cancer Maternal Grandmother lung Colon Cancer Maternal Aunt COPD Maternal Uncle Coronary Artery Disease Paternal Aunt Breast Cancer Other mothers side (cousin) Cancer Maternal Uncle lung Social History Tobacco Use Smoking status: Never Smokeless tobacco: Never Tobacco comments: ETS from parents in childhood home. Currently also has some household ETS. 03/17/2018. Vaping Use Vaping Use: Never used Substance Use Topics Alcohol use: Not Currently Drug use: No Physical Exam Vitals reviewed. Constitutional: General: She is not in acute distress. Appearance: Normal appearance. She is normal weight. She is not ill-appearing or toxic-appearing. HENT: Nose: Congestion present. Right Turbinates: Not swollen. Left Turbinates: Swollen. Right Sinus: No maxillary sinus tenderness or frontal sinus tenderness. Left Sinus: No maxillary sinus tenderness or frontal sinus tenderness. Mouth/Throat: Mouth: Mucous membranes are moist. Pharynx: Oropharynx is clear. Uvula midline. No pharyngeal swelling, oropharyngeal exudate, posterior oropharyngeal erythema or uvula swelling. Cardiovascular: Rate and Rhythm: Normal rate and regular rhythm. Pulmonary: Effort: Pulmonary effort is normal. No respiratory distress. Breath sounds: Normal breath sounds. Skin: General: Skin is warm and dry. Capillary Refill: Capillary refill takes less than 2 seconds. Findings: Erythema and rash present. No petechiae. Rash is papular and urticarial. Rash is not purpuric. Neurological: General: No focal deficit present. Mental Status: She is alert and oriented to person, place, and time. Mental status is at baseline. Psychiatric: Mood and Affect: Mood normal. Behavior: Behavior normal. Thought Content: Thought content normal. Judgment: Judgment normal. Assessment and Plan ASSESSMENT/PLAN: 1. Chronic sinusitis, unspecified location - ICD9: 473.9, ICD10: J32.9 (primary diagnosis) - Will begin treatment with Levaquin- patient educated on risks of Levaquin, specifically tendon rupture. She would like to proceed with treatment. - The patient should also be given OTC decongestants prn, OTC cough and cold meds as needed, and warm salt water gargles, throat lozenges and/or OTC throat spray as needed for the first 5-7 days of treatment. - Supportive care with plenty of fluids, rest, and analgesia prn. - Follow up in 3-5 days if symptoms persist or worsen. 2. Allergic reaction to drug, initial encounter - ICD9: 995.27, ICD10: T78.40XA - Medrol taper - Follow up with PCP as needed - Amoxicillin added to allergy list E Yohana [employer] OFFBEARER Student TEACHING PROVIDER (Physician/PA/VOLCANOLOGY PROFESSOR) NOTE OF PERSONAL INVOLVEMENT IN CARE: I have personally seen and examined the patient and performed the medical decision-making components. I have reviewed the Advanced Practice Registered Nurse (VOLCANOLOGY PROFESSOR) Student's documentation and verified the findings in the note as written. Any additions or changes are noted in bold/italics. Signature: Jenny Salas Date: 01/18/2023 Time: 1:52 PM documented in this encounter [facility] 01-17-2023 Miscellaneous Notes Patient aware of below message. Sent [facility] message so that she can attach photos. Recommend that she discontinue amoxicillin if she has not done so already. Will put on her allergy list. She may increase fexofenadine (nan) to 180 mg twice a day for itching. Ask her to upload pictures of the rash onto [employer]. Rx sent to her pharmacy for Diflucan for yeast infections. Khanh Antonio MD Patient called to report that she has rash head to toe. Very itchy and she feels that she is also getting a yeast infection. Started within a few days of Amoxicillin course. Wants PCN listed on allergy list . Taking nan daily. 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 Please advise. documented in this encounter [facility] 01-08-2023 Note HNO ID: [id number] Author: Khanh Antonio MD Service: ? Author Type: Physician Type: Progress Notes Filed: 01/09/2023 2:04 PM Note Text: This is a consultation requested by Ellen Navarro PA-C for an allergy and immunology evaluation. My final recommendations will be communicated back to the requesting healthcare provider(s) by way of shared medical record or via U.S. mail. Chey Jeffers is a 62 year old female with a history of nonallergic rhinitis, chronic rhinosinusitis with nasal polyposis, severe persistent asthma, GERD and aspirin exacerbated respiratory disease who [facility]. Her last visit with me was on 06/06/2009 She complains nasal congestion, sneezing, yellow rhinorrhea, postnasal drip and itching eyes. Symptoms have worsened over the past 2 months. Symptoms are perennial with exacerbation in the fall. Triggers of her symptoms include exposure to ragweed and smoke. She uses Nan, Flonase and Singulair with fair relief of symptoms although she does not use Flonase regularly. She was previously on subcutaneous allergy immunotherapy for a few years as prescribed by [facility] without relief. Discontinued immunotherapy about 6 years ago. She also has a history of chronic rhinosinusitis with nasal polyposis. Complains of anosmia. She has had sinus surgery and nasal polypectomy completed 3 times, most recently in 2021. She has taken 2 courses of Levaquin and Medrol for sinusitis in the past year. She has a history of asthma. Symptoms include cough, wheezing and shortness of breath. Uses albuterol 1-2 times per week for acute symptoms. Nocturnal awakenings due to respiratory symptoms 1-2 nights in the past month. Uses Symbicort 160 and Singulair although she admits to missing doses of Symbicort. She is not using a spacer. Denies treatment with systemic steroids, ER visits or hospitalizations for asthma in the past year. She has been hospitalized twice for asthma previously. No ICU or intubation. Asthma triggers include cold temperatures and physical activity. In addition to a history of adverse reaction to aspirin/NSAIDs, she complained of chest tightness associated with prior use of Tylenol. She avoids use of aspirin, NSAIDs and acetaminophen. C/o itching associated with use of prednisone. Tolerates medrol without reaction. History of skin rash associated with use of penicillin and cefdinir. She takes Prevacid 30 mg daily and Carafate 4 times daily with good control of her GERD symptoms. REVIEW OF SYSTEMS: SINUSITIS: The patient does not suffer from frequent sinopulmonary infections. ASTHMA: See TANANA ECZEMA: The patient has no history of eczema. URTICARIA:The patient does not have a history of urticaria and/or angioedema. GERD: See TANANA INSECT STING: The patient does not have a history of systemic reaction to insect sting. FOOD ALLERGY:The patient denies history of food allergy. LATEX: The patient does not have a history of adverse reaction to latex. All other review of systems negative except for those listed above. 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 Mazariegos [facility]. Pure hypercholesterolemia Serrated adenoma of colon 07/29/2014 Symptomatic menopausal or female climacteric states Unspecified asthma(493.90) Unspecified sinusitis (chronic) 06/21/2008 MEDICATIONS: montelukast (SINGULAIR) 10 mg tablet Take 1 tablet by mouth daily at bedtime. Estradiol (ESTRACE) 1 mg tablet Take 1 tablet by mouth once daily. clonazePAM (KLONOPIN) 0.5 mg tablet Take 1 tablet by mouth twice daily for 180 days. GEMTESA 75 mg tablet Take 1 tablet by mouth every afternoon. buPROPion (WELLBUTRIN) 75 mg tablet Take 1 tablet by mouth twice daily. budesonide-formoterol (SYMBICORT) 160-4.5 mcg/actuation inhaler Inhale 2 Puffs as instructed twice daily. albuterol HFA (VENTOLIN HFA) 90 mcg/actuation inhaler Inhale 2 Puffs as instructed every 4 hours as needed for wheezing/shortness of breath. lansoprazole (PREVACID) 30 mg capsule Take 1 capsule by mouth once daily. simvastatin (ZOCOR) 40 mg tablet Take 1 tablet by mouth daily at bedtime. imipramine HCl (TOFRANIL) 25 mg tablet Take 2 tablets by mouth daily at bedtime. Albuterol Sulfate 1.25 mg/3 mL nebulizer solution Use 1 Ampule via nebulizer every 6 hours as needed for wheezing/shortness of breath. ipratropium (ATRO (more content not included)... [facility] 01-08-2023 Instructions Khanh Antonio MD - 01/08/2023 12:35 PM EDT Allergy skin test to inhalant allergens including cats, dogs, dust mites, molds, trees, grasses, weeds, and ragweed were negative. Allergy skin test completed to penicillin were negative. You took a dose of amoxicillin and tolerated this without adverse reaction. You are at low risk for a severe, immediate allergic or anaphylactic reaction to penicillin and other penicillin type antibiotics. Skin tests and oral challenge are unreliable for predicting delayed reactions. Use fluticasone nasal spray/Flonase 1 to 2 sprays to each nostril twice a day on a regular basis Use Symbicort 160-4.52 puffs twice a day every day on a regular basis. Use with a spacer and rinse her mouth out after use. documented in this encounter [facility] 01-08-2023 History of Present illness Narrative This is a consultation requested by Ellen Navarro PA-C for an allergy and immunology evaluation. My final recommendations will be communicated back to the requesting healthcare provider(s) by way of shared medical record or via U.S. mail. Chey Jeffers is a 62 year old female with a history of nonallergic rhinitis, chronic rhinosinusitis with nasal polyposis, severe persistent asthma, GERD and aspirin exacerbated respiratory disease who [facility]. Her last visit with me was on 06/06/2009 She complains nasal congestion, sneezing, yellow rhinorrhea, postnasal drip and itching eyes. Symptoms have worsened over the past 2 months. Symptoms are perennial with exacerbation in the fall. Triggers of her symptoms include exposure to ragweed and smoke. She uses Nan, Flonase and Singulair with fair relief of symptoms although she does not use Flonase regularly. She was previously on subcutaneous allergy immunotherapy for a few years as prescribed by [facility] without relief. Discontinued immunotherapy about 6 years ago. She also has a history of chronic rhinosinusitis with nasal polyposis. Complains of anosmia. She has had sinus surgery and nasal polypectomy completed 3 times, most recently in 2021. She has taken 2 courses of Levaquin and Medrol for sinusitis in the past year. She has a history of asthma. Symptoms include cough, wheezing and shortness of breath. Uses albuterol 1-2 times per week for acute symptoms. Nocturnal awakenings due to respiratory symptoms 1-2 nights in the past month. Uses Symbicort 160 and Singulair although she admits to missing doses of Symbicort. She is not using a spacer. Denies treatment with systemic steroids, ER visits or hospitalizations for asthma in the past year. She has been hospitalized twice for asthma previously. No ICU or intubation. Asthma triggers include cold temperatures and physical activity. In addition to a history of adverse reaction to aspirin/NSAIDs, she complained of chest tightness associated with prior use of Tylenol. She avoids use of aspirin, NSAIDs and acetaminophen. C/o itching associated with use of prednisone. Tolerates medrol without reaction. History of skin rash associated with use of penicillin and cefdinir. She takes Prevacid 30 mg daily and Carafate 4 times daily with good control of her GERD symptoms. REVIEW OF SYSTEMS: SINUSITIS: The patient does not suffer from frequent sinopulmonary infections. ASTHMA: See TANANA ECZEMA: The patient has no history of eczema. URTICARIA:The patient does not have a history of urticaria and/or angioedema. GERD: See TANANA INSECT STING: The patient does not have a history of systemic reaction to insect sting. FOOD ALLERGY:The patient denies history of food allergy. LATEX: The patient does not have a history of adverse reaction to latex. All other review of systems negative except for those listed above. PAST MEDICAL HISTORY Diagnosis Date Abnormal ultrasound of breast 06/17/2013 Acute gastritis Ankylosing spondylitis (HCC) Anxiety and depression 06/12/2005 Bilateral renal cysts 03/11/2015 Calculus of kidney Dysthymic disorder Depression (non-psychotic) Enterocolitis due to Clostridium difficile 01/12/2015 Esophageal reflux HNP (herniated nucleus pulposus), lumbar 08/22/2011 Intrinsic asthma, unspecified 08/05/2008 Irritable bowel syndrome Irritable bowel assisted 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 01/16/2017 Menopause syndrome 01/19/2005 Myalgia and myositis, unspecified Nasal polyposis Polypectomy 03/2017 Dr. Mazariegos [facility]. Pure hypercholesterolemia Serrated adenoma of colon 07/29/2014 Symptomatic menopausal or female climacteric states Unspecified asthma(493.90) Unspecified sinusitis (chronic) 06/21/2008 MEDICATIONS: montelukast (SINGULAIR) 10 mg tablet Take 1 tablet by mouth daily at bedtime. Estradiol (ESTRACE) 1 mg tablet Take 1 tablet by mouth once daily. clonazePAM (KLONOPIN) 0.5 mg tablet Take 1 tablet by mouth twice daily for 180 days. GEMTESA 75 mg tablet Take 1 tablet by mouth every afternoon. buPROPion (WELLBUTRIN) 75 mg tablet Take 1 tablet by mouth twice daily. budesonide-formoterol (SYMBICORT) 160-4.5 mcg/actuation inhaler Inhale 2 Puffs as instructed twice daily. albuterol HFA (VENTOLIN HFA) 90 mcg/actuation inhaler Inhale 2 Puffs as instructed every 4 hours as needed for wheezing/shortness of breath. lansoprazole (PREVACID) 30 mg capsule Take 1 capsule by mouth once daily. simvastatin (ZOCOR) 40 mg tablet Take 1 tablet by mouth daily at bedtime. imipramine HCl (TOFRANIL) 25 mg tablet Take 2 tablets by mouth daily at bedtime. Albuterol Sulfate 1.25 mg/3 mL nebulizer solution Use 1 Ampule via nebulizer every 6 hours as needed for wheezing/shortness of breath. ipratropium (ATROVENT) 0.02 % nebulizer solution Use 2.5 mL via nebulizer four times daily as needed for wheezing/shortness of breath. sucralfate (CARAFATE) 1 gram tablet Take 1 tablet by mouth before meals and at bedtime. calcium carb/vit D2/minerals (CALTRATE PLUS ORAL) Take 1 capsule by mouth once daily. fluticasone (FLONASE) 50 mcg/actuation nasal spray Use 1 Marston in each nostril twice daily. VIA SPACER THEN RINSE AND GARGLE MOUTH WITH WATER. LOPERAMIDE HCL (IMODIUM ORAL) Take by mouth as needed. fexofenadine (NAN) 180 mg ORAL tablet Take one(1) tablet daily. vit e acetate/gly/dimeth/water(CETAPHIL MOISTURIZING LOTION) apply twice daily ALLERGIES: Allergies As of Date: 01/08/2023 Allergen Noted Reaction ASPIRIN [SALICYLATES] 05/24/2006 Swelling and Shortness of Breath CEFDINIR 12/21/2019 Itching CODEINE 02/15/2005 Hives VICODIN [HYDROCODONE-ACETAMINOPHE*02/16/20 05 Hives DEMEROL [MEPERIDINE (PF)] 01/03/2006 Rash AMBIEN [ZOLPIDEM] 04/07/2022 Intolerance BACTRIM [SULFAMETHOXAZOLE-TRIMETH*07/26/19 06 BUDESONIDE 06/26/2018 Rash CELEXA [CITALOPRAM HYDROBROMIDE] 07/25/2005 GI Upset DOXY [DOXYCYCLINE] 06/04/2005 DUREZOL [DIFLUPREDNATE] 03/04/2014 Rash ENVIRONMENTAL ALLERGIES [OTHER] 02/25/2006 IBUPROFEN 07/25/2005 Shortness of Breath LEXAPRO [ESCITALOPRAM OXALATE] 07/25/2005 GI Upset LYRICA [PREGABALIN] 04/10/2011 Mental Status Change MACROBID [NITROFURANTOIN MONOHYD/*06/26/2018 Diarrhea MAPROTILINE 05/16/2009 Itching MONUROL [FOSFOMYCIN] 05/18/2021 Diarrhea MUCOMYST [ACETYLCYSTEINE] 10/30/2012 Cough OXYCODONE 01/17/2011 Shortness of Breath PENICILLINS 01/09/2005 PREDNISONE 07/30/2006 Itching TORADOL [KETOROLAC TROMETHAMINE] 04/06/2011 Swelling TYLENOL [ACETAMINOPHEN] 01/02/2006 Intolerance ULTRAM [TRAMADOL HCL] 07/25/2005 Other: See Comments VANCOMYCIN 01/21/2015 Other: See Comments VENLAFAXINE 07/09/2011 GI Upset ZITHROMAX [AZITHROMYCIN] 01/19/2005 Itching MIRTAZAPINE 11/17/2013 Other: See Comments Fully Assessed 01/08/2023 PAST SURGICAL HISTORY Procedure Laterality Date CHOLECYSTECTOMY 1999 Cholecystectomy COLONOSCOPY 04/07/2018 COLONOSCOPY FLX DX W/COLLJ SPEC WHEN PFRMD 04/24/2001 Colonoscopy COLONOSCOPY FLX DX W/COLLJ SPEC WHEN PFRMD 06/16/2013 Colonoscopy COLONOSCOPY FLX DX W/COLLJ SPEC WHEN PFRMD 03/10/2014 Colonoscopy COLONOSCOPY FLX DX W/COLLJ SPEC WHEN PFRMD 03/10/2015 Colonoscopy EGD 04/07/2018 ESOPHAGOGASTRODUODENOSCOPY TRANSORAL DIAGNOSTIC 04/24/2001 EGD ESOPHAGOGASTRODUODENOSCOPY TRANSORAL DIAGNOSTIC 07/11/2009 EGD EXCISION NOSE POLYP(S),SIMPLE 2007 Nasal polypectomy, Dr. Mcclelland LAPS COLECTOMY PRTL W/RMVL TERMINAL ILEUM 07/16/2014 NASAL ENDOS,DIAG,UNI/ BILATERAL 02/13/2022 Polyp removal PAST SURGICAL HISTORY OF 2013 left breast biopsy- benign SEPTOPLASTY/SUBMUCOUS RESECJ W/WO CARTILAGE GRF 2006 Septoplasty SINUS SURGERY PROCEDURE Bilateral 04/02/2017 [facility]. Dr. Mazariegos. Sinonasal polypectomy, revision maxillary antrostomy, total ethmoidectomy, sphenoidotomy TOTAL ABDOMINAL HYSTERECT W/WO RMVL TUBE OVARY 1993 Hysterectomy, OPAL BSO XCAPSL CTRC RMVL INSJ IO LENS PROSTH W/O ECP 10/10/2013 Cataract Extraction with PC IOL FAMILY HISTORY: Allergic rhinitis:yes: mom and brother. Asthma: no. Eczema: no. Cystic fibrosis: no. Immunodeficiency: no. SOCIAL HISTORY: Employer And Job Title: No employer specified ([employer]) Years Of Education Completed: Not specified Marital Status: Single with no children Social History Tobacco Use Smoking status: Never Smokeless tobacco: Never Tobacco comments: ETS from parents in childhood home. Currently also has some household ETS. 03/17/2018. ENVIRONMENTAL HISTORY: Lives in a house Age of home: 60 years Heating: forced hot air, gas Woodburning fireplace in the home: no Air conditioning: Central air Basement: Damp basement Yoav: [id number] carpeting Dust mite controls: Dust mite controls are already in place. Pets in the home: 1 cats, 1 dogs Outdoor animals: There are no outdoor animals Tobacco smoke: Exposure in the home. Boyfriend smokes outside. Physical Exam: GENERAL APPEARANCE:Well appearing, alert, in no acute distress, well-hydrated, well nourished. HEENT: NCAT. EYES: conjunctiva and sclera normal. EARS: External ears normal. Canals clear. TM's normal. NOSE/SINUS: mild edema of the nasal mucosa with scant clear secretions bilaterally THROAT: no erythema NECK:neck supple, no adenopathy HEART:RRR with normal S1 and S2 ,no murmurs, no gallops, no rubs LUNGS: clear to auscultation bilaterally, no wheezes, rales or rhonchi ABDOMEN:soft, nontender, nondistended, without organomegaly or palpable masses EXTREMITIES:Extremities normal, No deformities, No skin discoloration, and No edema SKIN: Skin color, texture, turgor normal. No rashes or lesions. ALLERGY SKIN TESTS: Negative to inhalant allergens on both prick and intradermal testing. Negative to penicillin and Pre-Pen on both prick and intradermal tests. Patient took a test dose of amoxicillin 250 mg by mouth and was monitored in the office for 30 minutes afterwards. The patient tolerated the amoxicillin without adverse reaction. ASSESSMENT/PLAN: 1.) Chronic rhinosinusitis with a history of nasal polyposis: Patient was reassured that she does not have IgE-mediated inhalant allergies contributing to her symptoms. Recommend regular use of fluticasone nasal spray 1 to 2 sprays to each nostril twice daily Take amoxicillin 875 mg twice daily for 10 days and Medrol Dosepak as prescribed Biologic therapy with Dupixent, Nucala or Xolair may be considered. I would favor Dupixent for this patient. She would like to monitor for clinical improvement with regular use of fluticasone nasal spray before deciding whether or not to proceed. Continue to follow-up with otolaryngology. 2.) Moderate persistent asthma: Recommend regular use of Symbicort 160-4.5 2 puffs twice daily. Use with spacer and rinse mouth out after use. Continue Singulair 10 mg at bedtime Continue albuterol hfa inhaler (Proventil, Ventolin, Proair) with spacer 2 puffs or albuterol 2.5 mg nebulized every four hours as needed for cough, wheezing, chest tightness or shortness of breath. May also use 2 puffs 15-20 minutes pre-exercise. AeroChamber spacer was provided at today's visit and proper use was reviewed with the patient. Biologic therapy may be considered as described above. Continue to follow-up with pulmonary medicine. 3.) History of allergy to penicillin and/or penicillin-type antibiotic: Allergy skin tests to penicillin were negative. The patient took a test dose of amoxicillin and tolerated this without adverse reaction. The patient is at low risk for a severe, immediate, IgE-mediated reaction to penicillin, amoxicillin and other penicillin-type antibiotics. Skin tests are unreliable for predicting delayed reactions. 4.) History of possible aspirin exacerbated respiratory disease: She should continue to strictly avoid use of Zambrano 1 inhibitors (aspirin/NSAIDs.) Celebrex, a Zambrano 2 inhibitor, is typically well-tolerated in patients with a history of aspirin sensitivity. 5.) Discussed medication dosage, usage, side effects, and goals of treatment in detail. 6.) Follow-up in 6 months - patient will return sooner should new symptoms or problems arise. Khanh Antonio MD documented in this encounter [facility] 01-08-2023 Nurse Note Patient here for consult for seasonal allergy symptoms and chronic sinusitis. Has nasal congestion and drainage, sneezing and coughing. Takes nan daily, off since Saturday. Had sinus surgery in 2016 and [address] Mazariegos in [place], who tested her last year. Uses Symbicort twice daily, and uses Albuterol 1-2 times a week for wheezing and chest tightness. documented in this encounter [facility] 01-02-2023 Note HNO ID: [id number] Author: Nuno Benson APRN.BRIM SHAPER Service: ? Author Type: Nurse Practitioner Type: Progress Notes Filed: 01/02/2023 9:21 AM Note Text: SUBJECTIVE Chey Jeffers is a 62 year old female here today for a check up on her medical problems. Chief Complaint Patient presents with: Medication Follow-up HPI Chey Jeffers is a 62 year old female established patient of Dr. Oconnor. She is here today for a 4 week follow up on medication for mood. At last visit we discussed continued anxiety, depression, health care liaison stress. 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 At last visit we started clonidine and bupropion. She stopped her clonidine and bupropion since last visit. She felt the medications were making her too tired. Not sure which one it was. Still issues with hot flashes. On estradiol. Prior hysterectomy. She has tried Lamictal, mirtazapine, Effexor, Celexa, Lexapro. Still not sleeping great and night sweats effect this. Not getting any exercise. Stress eating. Concerns about weight being up. Her medications were reviewed today and her list is now up to date. Medications Current Outpatient Medications Medication Sig GEMTESA 75 mg tablet Take 1 tablet by mouth every afternoon. buPROPion (WELLBUTRIN) 75 mg tablet Take 1 tablet by mouth twice daily. budesonide-formoterol (SYMBICORT) 160-4.5 mcg/actuation inhaler Inhale 2 Puffs as instructed twice daily. albuterol HFA (VENTOLIN HFA) 90 mcg/actuation inhaler Inhale 2 Puffs as instructed every 4 hours as needed for wheezing/shortness of breath. lansoprazole (PREVACID) 30 mg capsule Take 1 capsule by mouth once daily. simvastatin (ZOCOR) 40 mg tablet Take 1 tablet by mouth daily at bedtime. imipramine HCl (TOFRANIL) 25 mg tablet Take 2 tablets by mouth daily at bedtime. Albuterol Sulfate 1.25 mg/3 mL nebulizer solution Use 1 Ampule via nebulizer every 6 hours as needed for wheezing/shortness of breath. ipratropium (ATROVENT) 0.02 % nebulizer solution Use 2.5 mL via nebulizer four times daily as needed for wheezing/shortness of breath. sucralfate (CARAFATE) 1 gram tablet Take 1 tablet by mouth before meals and at bedtime. calcium carb/vit D2/minerals (CALTRATE PLUS ORAL) Take 1 capsule by mouth once daily. fluticasone (FLONASE) 50 mcg/actuation nasal spray Use 1 Marston in each nostril twice daily. VIA SPACER THEN RINSE AND GARGLE MOUTH WITH WATER. LOPERAMIDE HCL (IMODIUM ORAL) Take by mouth as needed. fexofenadine (NAN) 180 mg ORAL tablet Take one(1) tablet daily. vit e acetate/gly/dimeth/water(CETAPHIL MOISTURIZING LOTION) apply twice daily montelukast (SINGULAIR) 10 mg tablet Take 1 tablet by mouth daily at bedtime. Estradiol (ESTRACE) 1 mg tablet Take 1 tablet by mouth once daily. clonazePAM (KLONOPIN) 0.5 mg tablet Take 1 tablet by mouth twice daily for 180 days. No current facility-administered medications for this visit. ALLERGIES Allergen Reactions Aspirin [Salicylate* Swelling, Shortness of Breath wheezing,swelling lips,rash,hives Cefdinir Itching Itchy scaly rash. Codeine Hives Vicodin [Hydrocodon* Hives Demerol [Meperidine* Rash Ambien [Zolpidem] Intolerance Was sleepwalking (arranging books but hull not recall) Bactrim [Sulfametho* uncertain Budesonide Rash Celexa [Citalopram * GI Upset Doxy [Doxycycline] rash and asthma Durezol [Diflupredn* Rash Environmental Aller* Dogs, molds Ibuprofen Shortness of Breath Lexapro [Escitalopr* GI Upset Lyrica [Pregabalin] Mental Status Change dizzy Macrobid [Nitrofura* Diarrhea Maprotiline Itching Monurol [Fosfomycin] Diarrhea Mucomyst [Acetylcys* Cough increase wheezing Oxycodone Shortness of Breath Penicillins rash Prednisone Itching Toradol [Ketorolac * Swelling Tylenol [Acetaminop* Intolerance asthma Ultram [Tramadol Hc* Other: See Comments chest pains Vancomycin Other: See Comments Wheezing after taking, legs swollen and tongue swelling and scratchy neck Venlafaxine GI Upset Zithromax [Azithrom* Itching Mirtazapine Other: See Comments Hand shakes. 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 [facility] 01-02-2023 Instructions Nuno Benson APRN.CNP - 01/02/2023 9:10 AM EDT Hold your simvastatin for the next 2 weeks. Call with an update before restarting. documented in this encounter [facility] 01-02-2023 History of Present illness Narrative SUBJECTIVE Chey L Mizer is a 62 year old female here today for a check up on her medical problems. Chief Complaint Patient presents with: Medication Follow-up HPI Chey Jeffers is a 62 year old female established patient of Dr. Oconnor. She is here today for a 4 week follow up on medication for mood. At last visit we discussed continued anxiety, depression, health care liaison stress. 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 At last visit we started clonidine and bupropion. She stopped her clonidine and bupropion since last visit. She felt the medications were making her too tired. Not sure which one it was. Still issues with hot flashes. On estradiol. Prior hysterectomy. She has tried Lamictal, mirtazapine, Effexor, Celexa, Lexapro. Still not sleeping great and night sweats effect this. Not getting any exercise. Stress eating. Concerns about weight being up. Her medications were reviewed today and her list is now up to date. Medications Current Outpatient Medications Medication Sig GEMTESA 75 mg tablet Take 1 tablet by mouth every afternoon. buPROPion (WELLBUTRIN) 75 mg tablet Take 1 tablet by mouth twice daily. budesonide-formoterol (SYMBICORT) 160-4.5 mcg/actuation inhaler Inhale 2 Puffs as instructed twice daily. albuterol HFA (VENTOLIN HFA) 90 mcg/actuation inhaler Inhale 2 Puffs as instructed every 4 hours as needed for wheezing/shortness of breath. lansoprazole (PREVACID) 30 mg capsule Take 1 capsule by mouth once daily. simvastatin (ZOCOR) 40 mg tablet Take 1 tablet by mouth daily at bedtime. imipramine HCl (TOFRANIL) 25 mg tablet Take 2 tablets by mouth daily at bedtime. Albuterol Sulfate 1.25 mg/3 mL nebulizer solution Use 1 Ampule via nebulizer every 6 hours as needed for wheezing/shortness of breath. ipratropium (ATROVENT) 0.02 % nebulizer solution Use 2.5 mL via nebulizer four times daily as needed for wheezing/shortness of breath. sucralfate (CARAFATE) 1 gram tablet Take 1 tablet by mouth before meals and at bedtime. calcium carb/vit D2/minerals (CALTRATE PLUS ORAL) Take 1 capsule by mouth once daily. fluticasone (FLONASE) 50 mcg/actuation nasal spray Use 1 Marston in each nostril twice daily. VIA SPACER THEN RINSE AND GARGLE MOUTH WITH WATER. LOPERAMIDE HCL (IMODIUM ORAL) Take by mouth as needed. fexofenadine (NAN) 180 mg ORAL tablet Take one(1) tablet daily. vit e acetate/gly/dimeth/water(CETAPHIL MOISTURIZING LOTION) apply twice daily montelukast (SINGULAIR) 10 mg tablet Take 1 tablet by mouth daily at bedtime. Estradiol (ESTRACE) 1 mg tablet Take 1 tablet by mouth once daily. clonazePAM (KLONOPIN) 0.5 mg tablet Take 1 tablet by mouth twice daily for 180 days. No current facility-administered medications for this visit. ALLERGIES Allergen Reactions Aspirin [Salicylate* Swelling, Shortness of Breath wheezing,swelling lips,rash,hives Cefdinir Itching Itchy scaly rash. Codeine Hives Vicodin [Hydrocodon* Hives Demerol [Meperidine* Rash Ambien [Zolpidem] Intolerance Was sleepwalking (arranging books but hull not recall) Bactrim [Sulfametho* uncertain Budesonide Rash Celexa [Citalopram * GI Upset Doxy [Doxycycline] rash and asthma Durezol [Diflupredn* Rash Environmental Aller* Dogs, molds Ibuprofen Shortness of Breath Lexapro [Escitalopr* GI Upset Lyrica [Pregabalin] Mental Status Change dizzy Macrobid [Nitrofura* Diarrhea Maprotiline Itching Monurol [Fosfomycin] Diarrhea Mucomyst [Acetylcys* Cough increase wheezing Oxycodone Shortness of Breath Penicillins rash Prednisone Itching Toradol [Ketorolac * Swelling Tylenol [Acetaminop* Intolerance asthma Ultram [Tramadol Hc* Other: See Comments chest pains Vancomycin Other: See Comments Wheezing after taking, legs swollen and tongue swelling and scratchy neck Venlafaxine GI Upset Zithromax [Azithrom* Itching Mirtazapine Other: See Comments Hand shakes. 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/2017 Serrated Adenoma of Colon - 07/29/2014 Osteoporosis - 05/24/2013 Ddd (Degenerative Disc Disease), Lumbosacral - 09/07/2011 Fibromyalgia - 07/27/2009 Esophageal Reflux - 08/05/2008 Sinusitis, Chronic - 06/21/2008 Chronic Rhinitis - 02/27/2006 Pure Hypercholesterolemia Irritable Bowel Syndrome Anxiety and Depression - 06/12/2005 Other Chronic Cystitis - 06/04/2005 Asthma With Chronic Obstructive Pulmonary Disease (Copd) ([facility]) - 05/24/2005 Menopause Syndrome - 01/19/2005 Social History Tobacco Use Smoking status: Never Smokeless tobacco: Never Tobacco comments: ETS from parents in childhood home. Currently also has some household ETS. 03/17/2018. Vaping Use Vaping Use: Never used Substance Use Topics Alcohol use: Not Currently Drug use: No Review of Systems Respiratory: Negative. Cardiovascular: Negative. Psychiatric/Behavioral: Positive for dysphoric mood and sleep disturbance. The patient is nervous/anxious. OBJECTIVE BP 126/90 Pulse 107 Wt 147 lb (66.7kg) SpO2 95% Physical Exam Vitals and nursing note reviewed. Constitutional: General: She is awake. She is not in acute distress. Appearance: Normal appearance. She is well-developed and well-groomed. She is not ill-appearing, toxic-appearing or diaphoretic. HENT: Head: Normocephalic. Right Ear: External ear normal. Left Ear: External ear normal. Nose: Nose normal. Eyes: General: Vision grossly intact. Conjunctiva/sclera: Conjunctivae normal. Pupils: Pupils are equal, round, and reactive to light. Neck: Vascular: No JVD. Trachea: Trachea normal. Pulmonary: Effort: Pulmonary effort is normal. No accessory muscle usage, prolonged expiration or respiratory distress. Musculoskeletal: Cervical back: Neck supple. Skin: General: Skin is warm and dry. Capillary Refill: Capillary refill takes less than 2 seconds. Neurological: General: No focal deficit present. Mental Status: She is alert and oriented to person, place, and time. Mental status is at baseline. Psychiatric: Attention and Perception: Attention and perception normal. Mood and Affect: Affect normal. Mood is anxious. Speech: Speech normal. Behavior: Behavior normal. Behavior is cooperative. Thought Content: Thought content normal. Cognition and Memory: Cognition and memory normal. Judgment: Judgment normal. ASSESSMENT/PLAN: 1. Anxiety and depression - ICD9: 300.00, 311, ICD10: F41.9, F32.A (primary diagnosis) Continue with her clonazepam, restart the Bupropion and see if helpful. - CLONAZEPAM 0.5 MG TABLET 2. Caregiver stress syndrome - ICD9: 308.9, ICD10: R45.7 See #1 3. Menopause syndrome - ICD9: 627.2, ICD10: N95.1 Increase estradiol, she is aware of increased risk for breast cancers with this, discussed regular mammograms. She has had a prior total hysterectomy. - ESTRADIOL 1 MG TABLET - TSH BLD 4. Unintended weight gain - ICD9: 783.1, ICD10: R63.5 Check labs, restart bupropion, discussed diet changes, increasing activity level. - CBC + DIFF - COMP METABOLIC PANEL - HGB A1C - TSH BLD 5. Encounter for therapeutic drug monitoring - ICD9: V58.83, ICD10: Z51.81 - CBC + DIFF - COMP METABOLIC PANEL - HGB A1C 6. BMI 28.0-28.9,adult - ICD9: V85.24, ICD10: Z68.28 - HGB A1C - TSH BLD Portions of this note have been entered by ancillary staff. I have reviewed and when necessary edited, so that they are an adequate record of my encounter with this patient Please note that parts of this document were created using voice recognition software and therefore may contain grammatical errors. Patient verbalizes understanding of instructions from today's visit and in agreement with treatment plan. Questions answered. Agrees to call the office if questions, concerns of issues with acute symptoms not improving or if they worsen. See diagnoses and orders for additional plan(s). Allergies and medications were reviewed, list was updated, and refills given if needed. Past medical, surgical, social, and family history reviewed and updated as appropriate. Encouraged proper diet & exercise as well as compliance with taking medications. Age-appropriate health preventative measures were discussed. Return in about 4 weeks (around 01/30/2023) for recheck. Nuno Benson APRN-JACKIE documented in this encounter [facility] 12-05-2022 Note HNO ID: [id number] Author: Nuno Benson APRN.BRIM SHAPER Service: ? Author Type: Nurse Practitioner Type: Progress Notes Filed: 12/05/2022 12:40 PM Note Text: SUBJECTIVE Chey Jeffers is a 61 year old female here today for a check up on her medical problems. Chief Complaint Patient presents with: Medication Follow-up: stopped taking the lamotrigine due to weight gain HPI Chey Jeffers is a 61 year old female established patient of Dr. Oconnor who presents for follow up. Last seen 10/23 for concerns of anxiety and depression. Was started on low dose Lamictal. Stopped this due to weight increasing on this, stopped after about a week on the medication. 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 Some relationship strain too. Prior issues with SSRI/SNRI's. On klonopin PRN. Tried mirtazapine, Effexor, Celexa, Lexapro. She is not sleeping great. Noticing some hot flashes too with menopause. Her medications were reviewed today and her list is now up to date. Medications Current Outpatient Medications Medication Sig budesonide-formoterol (SYMBICORT) 160-4.5 mcg/actuation inhaler Inhale 2 Puffs as instructed twice daily. albuterol HFA (VENTOLIN HFA) 90 mcg/actuation inhaler Inhale 2 Puffs as instructed every 4 hours as needed for wheezing/shortness of breath. lansoprazole (PREVACID) 30 mg capsule Take 1 capsule by mouth once daily. simvastatin (ZOCOR) 40 mg tablet Take 1 tablet by mouth daily at bedtime. imipramine HCl (TOFRANIL) 25 mg tablet Take 2 tablets by mouth daily at bedtime. Albuterol Sulfate 1.25 mg/3 mL nebulizer solution Use 1 Ampule via nebulizer every 6 hours as needed for wheezing/shortness of breath. ipratropium (ATROVENT) 0.02 % nebulizer solution Use 2.5 mL via nebulizer four times daily as needed for wheezing/shortness of breath. clonazePAM (KLONOPIN) 0.5 mg tablet Take 1 tablet by mouth twice daily for 180 days. Do not start before July 08, 2022. sucralfate (CARAFATE) 1 gram tablet Take 1 tablet by mouth before meals and at bedtime. montelukast (SINGULAIR) 10 mg tablet Take 1 tablet by mouth daily at bedtime. Estradiol (ESTRACE) 0.5 mg tablet Take 1 tablet by mouth once daily. calcium carb/vit D2/minerals (CALTRATE PLUS ORAL) Take 1 capsule by mouth once daily. fluticasone (FLONASE) 50 mcg/actuation nasal spray Use 1 [place] in each nostril twice daily. VIA SPACER THEN RINSE AND GARGLE MOUTH WITH WATER. LOPERAMIDE HCL (IMODIUM ORAL) Take by mouth as needed. fexofenadine (NAN) 180 mg ORAL tablet Take one(1) tablet daily. vit e acetate/gly/dimeth/water(CETAPHIL MOISTURIZING LOTION) apply twice daily GEMTESA 75 mg tablet Take 1 tablet by mouth every afternoon. cloNIDine HCl (CATAPRES) 0.1 mg tablet Take 1 tablet by mouth daily at bedtime. buPROPion (WELLBUTRIN) 75 mg tablet Take 1 tablet by mouth twice daily. triamcinolone acetonide (KENALOG) 0.1 % cream Apply 1 application to affected area three times daily as needed. Apply sparingly to area for rash/itching. Up to 4 weeks (Patient not taking: Reported on 12/03/2022) ipratropium bromide (ATROVENT) 42 mcg (0.06 %) nasal spray Use 2 Sprays in the nose three times daily as needed. (Patient not taking: Reported on 12/05/2022) No current facility-administered medications for this visit. ALLERGIES Allergen Reactions Aspirin [Salicylate* Swelling, Shortness of Breath wheezing,swelling lips,rash,hives Cefdinir Itching Itchy scaly rash. Codeine Hives Vicodin [Hydrocodon* Hives Demerol [Meperidine* Rash Ambien [Zolpidem] Intolerance Was sleepwalking (arranging books but hull not recall) Bactrim [Sulfametho* uncertain Budesonide Rash Celexa [Citalopram * GI Upset Doxy [Doxycycline] rash and asthma Durezol [Diflupredn* Rash Environmental Aller* Dogs, molds Ibuprofen Shortness of Breath Lexapro [Escitalopr* GI Upset Lyrica [Pregabalin] Mental Status Change dizzy Macrobid [Nitrofura* Diarrhea Maprotiline Itching Monurol [Fosfomycin] Diarrhea Mucomyst [Acetylcys* Cough increase wheezing Oxycodone Shortness of Breath Penicillins rash Prednisone Itching Toradol [Ketorolac * Swelling Tylenol [Acetaminop* Intolerance asthma Ultram [Tramadol Hc* Other: See Comments chest pains Vancomycin Other: See Comments Wheezing after taking, legs swollen and tongue swelling and scratchy neck Venlafaxine GI Upset Zithromax [Azithrom* Itching Mirtazapine Other: See Comments Hand shakes. 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 [facility] 12-03-2022 Note HNO ID: [id number] Author: Ellen Navarro PA-C Service: ? Author Type: Physician Landscape Specialist Type: Progress Notes Filed: 12/03/2022 2:00 PM Note Text: Patient: Chey Jeffers PCP: Edda Oconnor MD CC: asthma follow up HPI: Chey Jeffers 61 year old female non-smoker with PMH significant for ankylosing spondylitis, depression, GERD, nasal polyposis, chronic sinusitis, and asthma. Current therapy consists of Symbicort and as needed Albuterol. States she is more consistent with Symbicort twice daily. Has needed albuterol more with increased heat and humidity. She is stressed with taking care of her disabled brother and elderly mother. Daily cough that she attributes to PND. Using Flonase when I remember . No wheezing. Not limited by her breathing. Reports persistent sinus congestion, post nasal drip and purulent nasal drainage. Sneezes frequently. Follows with [facility]. 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 Mazariegos [facility]. Pure hypercholesterolemia Serrated adenoma of colon 07/29/2014 Symptomatic menopausal or female climacteric states Unspecified asthma(493.90) Unspecified sinusitis (chronic) 06/21/2008 Allergies: Aspirin [Salicylate* Swelling, Shortness of Breath Comment:wheezing,swelling lips,rash,hives Cefdinir Itching Comment: Itchy scaly rash. Codeine Hives Vicodin [Hydrocodon* Hives Demerol [Meperidine* Rash Ambien [Zolpidem] Intolerance Comment:Was sleepwalking (arranging books but hull not recall) Bactrim [Sulfametho* Comment:uncertain Budesonide Rash Celexa [Citalopram * GI Upset Doxy [Doxycycline] Comment:rash and asthma Durezol [Diflupredn* Rash Environmental Aller* Comment:Dogs, molds Ibuprofen Shortness of Breath Lexapro [Escitalopr* GI Upset Lyrica [Pregabalin] Mental Status Change Comment:dizzy Macrobid [Nitrofura* Diarrhea Maprotiline Itching Monurol [Fosfomycin] Diarrhea Mucomyst [Acetylcys* Cough Comment:increase wheezing Oxycodone Shortness of Breath Penicillins Comment:rash Prednisone Itching Toradol [Ketorolac * Swelling Tylenol [Acetaminop* Intolerance Comment:asthma Ultram [Tramadol Hc* Other: See Comments Comment:chest pains Vancomycin Other: See Comments Comment:Wheezing after taking, legs swollen and tongue swelling and scratchy neck Venlafaxine GI Upset Zithromax [Azithrom* Itching Mirtazapine Other: See Comments Comment:Hand shakes. budesonide-formoterol (SYMBICORT) 160-4.5 mcg/actuation inhaler Inhale 2 Puffs as instructed twice daily. albuterol HFA (VENTOLIN HFA) 90 mcg/actuation inhaler Inhale 2 Puffs as instructed every 4 hours as needed for wheezing/shortness of breath. lansoprazole (PREVACID) 30 mg capsule Take 1 capsule by mouth once daily. simvastatin (ZOCOR) 40 mg tablet Take 1 tablet by mouth daily at bedtime. imipramine HCl (TOFRANIL) 25 mg tablet Take 2 tablets by mouth daily at bedtime. lamoTRIgine (LAMICTAL) 25 mg tablet Take 1 tablet by mouth once daily. triamcinolone acetonide (KENALOG) 0.1 % cream Apply 1 application to affected area three times daily as needed. Apply sparingly to area for rash/itching. Up to 4 weeks Albuterol Sulfate 1.25 mg/3 mL nebulizer solution Use 1 Ampule via nebulizer every 6 hours as needed for wheezing/shortness of breath. ipratropium (ATROVENT) 0.02 % nebulizer solution Use 2.5 mL via nebulizer four times daily as needed for wheezing/shortness of breath. clonazePAM (KLONOPIN) 0.5 mg tablet Take 1 tablet by mouth twice daily for 180 days. Do not start before July 08, 2022. sucralfate (CARAFATE) 1 gram tablet Take 1 tablet by mouth before meals and at bedtime. montelukast (SINGULAIR) 10 mg tablet Take 1 tablet by mouth daily at bedtime. Estradiol (ESTRACE) 0.5 mg tablet Take 1 tablet by mouth once daily. ipratropium bromide (ATROVENT) 42 mcg (0.06 %) nasal spray Use 2 Sprays in the nose three times daily as needed. calcium carb/vit D2/minerals (CALTRATE PLUS ORAL) Take 1 capsule by mouth once daily. fluticasone (FLONASE) 50 mcg/actuation nasal spray Use 1 [place] in each nostril twice daily. VIA SPACER THEN RINSE AND GARGLE MOUTH WITH WATER. LOPERAMIDE HCL (IMODIUM ORAL) Take by mouth as needed. fexofenadine (NAN) 180 mg ORAL tablet Take one(1) tablet daily. vit e acetate/gly/dimeth/water(CETAPHIL MOISTURIZING LOTION) apply t (more content not included)... [facility] 12-03-2022 Note HNO ID: [id number] Author: Teresita Ruff RPFT Service: ? Author Type: Respiratory Therapist Type: Procedures Filed: 12/03/2022 1:15 PM Note Text: RESPIRATORY THERAPY ORAL EXHALED NITRIC OXIDE SERVICE DATE: 12/03/2022 SERVICE TIME: 1:15 PM Oral Exhaled Nitric Oxide measurement: 49.0 (ppb) (A) Normal: Adult 5-20 ppb, pediatric (<12 years) 5-15 ppb High Normal / Increased: Adult 20-35 ppb, pediatric (<12 years) 15-25 ppb Moderately raised exhaled Nitric Oxide may indicate underlying inflammation, but note that: Cold and influenza can raise exhaled Nitric Oxide and some patients have higher baseline exhaled Nitric Oxide levels than others. High: Adult >35 ppb, pediatric (<12 years) >25 ppb Indicative of ongoing eosinophilic inflammation. Symptomatic patient likely to respond to steroids. Possible causes (if already on steroids): Poor compliance, recent allergen exposure, steroid dose inadequate, and steroid resistance. Note that not all patients with high exhaled nitric oxide levels display symptoms. Oral Exhaled Nitric Oxide measurement (Previous Encounters) Test Date Oral Exhaled Nitric Oxide (ppb) 12/03/2022 49.0 (A) 06/04/2022 95.0 (A) 08/17/2021 109.0 (A) 12/21/2019 216.0 (A) NAME: LA Goddard PATIENT NAME: Chey Jeffers DATE: December 03, 2022 TIME: 1:15 PM [facility] 12-03-2022 Note HNO ID: [id number] Author: Teresita Ruff RPFT Service: ? Author Type: Respiratory Therapist Type: Progress Notes Filed: 12/03/2022 1:15 PM Note Text: PULM FUNCTION SMARTBLOCK: Provider: Mary Lou Nicholson MD Assisting Tech: Teresita Ruff RPFT Exhaled Nitric Oxide: 1 [facility] 12-03-2022 History of Present illness Narrative Images from the original note were not included. Patient: Chey Jeffers PCP: Edda Oconnor MD CC: asthma follow up HPI: Chey Jeffers 61 year old female non-smoker with PMH significant for ankylosing spondylitis, depression, GERD, nasal polyposis, chronic sinusitis, and asthma. Current therapy consists of Symbicort and as needed Albuterol. States she is more consistent with Symbicort twice daily. Has needed albuterol more with increased heat and humidity. She is stressed with taking care of her disabled brother and elderly mother. Daily cough that she attributes to PND. Using Flonase when I remember . No wheezing. Not limited by her breathing. Reports persistent sinus congestion, post nasal drip and purulent nasal drainage. Sneezes frequently. Follows with [facility]. PAST MEDICAL HISTORY Diagnosis Date Abnormal ultrasound of breast 06/17/2013 Acute gastritis Ankylosing spondylitis (HCC) Anxiety and depression 06/12/2005 Bilateral renal cysts 03/11/2015 Calculus of kidney Dysthymic disorder Depression (non-psychotic) Enterocolitis due to Clostridium difficile 01/12/2015 Esophageal reflux HNP (herniated nucleus pulposus), lumbar 08/22/2011 Intrinsic asthma, unspecified 08/05/2008 Irritable bowel syndrome Irritable bowel assisted 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 01/16/2017 Menopause syndrome 01/19/2005 Myalgia and myositis, unspecified Nasal polyposis Polypectomy 03/2017 Dr. Mazariegos [facility]. Pure hypercholesterolemia Serrated adenoma of colon 07/29/2014 Symptomatic menopausal or female climacteric states Unspecified asthma(493.90) Unspecified sinusitis (chronic) 06/21/2008 Allergies: Aspirin [Salicylate* Swelling, Shortness of Breath Comment:wheezing,swelling lips,rash,hives Cefdinir Itching Comment: Itchy scaly rash. Codeine Hives Vicodin [Hydrocodon* Hives Demerol [Meperidine* Rash Ambien [Zolpidem] Intolerance Comment:Was sleepwalking (arranging books but hull not recall) Bactrim [Sulfametho* Comment:uncertain Budesonide Rash Celexa [Citalopram * GI Upset Doxy [Doxycycline] Comment:rash and asthma Durezol [Diflupredn* Rash Environmental Aller* Comment:Dogs, molds Ibuprofen Shortness of Breath Lexapro [Escitalopr* GI Upset Lyrica [Pregabalin] Mental Status Change Comment:dizzy Macrobid [Nitrofura* Diarrhea Maprotiline Itching Monurol [Fosfomycin] Diarrhea Mucomyst [Acetylcys* Cough Comment:increase wheezing Oxycodone Shortness of Breath Penicillins Comment:rash Prednisone Itching Toradol [Ketorolac * Swelling Tylenol [Acetaminop* Intolerance Comment:asthma Ultram [Tramadol Hc* Other: See Comments Comment:chest pains Vancomycin Other: See Comments Comment:Wheezing after taking, legs swollen and tongue swelling and scratchy neck Venlafaxine GI Upset Zithromax [Azithrom* Itching Mirtazapine Other: See Comments Comment:Hand shakes. budesonide-formoterol (SYMBICORT) 160-4.5 mcg/actuation inhaler Inhale 2 Puffs as instructed twice daily. albuterol HFA (VENTOLIN HFA) 90 mcg/actuation inhaler Inhale 2 Puffs as instructed every 4 hours as needed for wheezing/shortness of breath. lansoprazole (PREVACID) 30 mg capsule Take 1 capsule by mouth once daily. simvastatin (ZOCOR) 40 mg tablet Take 1 tablet by mouth daily at bedtime. imipramine HCl (TOFRANIL) 25 mg tablet Take 2 tablets by mouth daily at bedtime. lamoTRIgine (LAMICTAL) 25 mg tablet Take 1 tablet by mouth once daily. triamcinolone acetonide (KENALOG) 0.1 % cream Apply 1 application to affected area three times daily as needed. Apply sparingly to area for rash/itching. Up to 4 weeks Albuterol Sulfate 1.25 mg/3 mL nebulizer solution Use 1 Ampule via nebulizer every 6 hours as needed for wheezing/shortness of breath. ipratropium (ATROVENT) 0.02 % nebulizer solution Use 2.5 mL via nebulizer four times daily as needed for wheezing/shortness of breath. clonazePAM (KLONOPIN) 0.5 mg tablet Take 1 tablet by mouth twice daily for 180 days. Do not start before July 08, 2022. sucralfate (CARAFATE) 1 gram tablet Take 1 tablet by mouth before meals and at bedtime. montelukast (SINGULAIR) 10 mg tablet Take 1 tablet by mouth daily at bedtime. Estradiol (ESTRACE) 0.5 mg tablet Take 1 tablet by mouth once daily. ipratropium bromide (ATROVENT) 42 mcg (0.06 %) nasal spray Use 2 Sprays in the nose three times daily as needed. calcium carb/vit D2/minerals (CALTRATE PLUS ORAL) Take 1 capsule by mouth once daily. fluticasone (FLONASE) 50 mcg/actuation nasal spray Use 1 [place] in each nostril twice daily. VIA SPACER THEN RINSE AND GARGLE MOUTH WITH WATER. LOPERAMIDE HCL (IMODIUM ORAL) Take by mouth as needed. fexofenadine (NAN) 180 mg ORAL tablet Take one(1) tablet daily. vit e acetate/gly/dimeth/water(CETAPHIL MOISTURIZING LOTION) apply twice daily Social History Tobacco Use Smoking status: Never Smokeless tobacco: Never Tobacco comments: ETS from parents in childhood home. Currently also has some household ETS. 03/17/2018. Vaping Use Vaping Use: Never used Substance Use Topics Alcohol use: Not Currently Drug use: No Family History Problem Relation Age of Onset Emphysema Mother diabetic Heart Mother Blockage and she needs a bypass, but her COPD prevents Emphysema Father Heart Father Cancer Maternal Grandmother lung Colon Cancer Maternal Aunt COPD Maternal Uncle Coronary Artery Disease Paternal Aunt Breast Cancer Other mothers side (cousin) Cancer Maternal Uncle lung PAST SURGICAL HISTORY Procedure Laterality Date CHOLECYSTECTOMY 1998 Cholecystectomy COLONOSCOPY 04/07/2018 COLONOSCOPY FLX DX W/COLLJ SPEC WHEN PFRMD 04/24/2001 Colonoscopy COLONOSCOPY FLX DX W/COLLJ SPEC WHEN PFRMD 06/16/2013 Colonoscopy COLONOSCOPY FLX DX W/COLLJ SPEC WHEN PFRMD 03/10/2014 Colonoscopy COLONOSCOPY FLX DX W/COLLJ SPEC WHEN PFRMD 03/10/2015 Colonoscopy EGD 04/07/2018 ESOPHAGOGASTRODUODENOSCOPY TRANSORAL DIAGNOSTIC 04/24/2001 EGD ESOPHAGOGASTRODUODENOSCOPY TRANSORAL DIAGNOSTIC 07/11/2009 EGD EXCISION NOSE POLYP(S),SIMPLE 2007 Nasal polypectomy, Dr. Mcclelland LAPS COLECTOMY PRTL W/RMVL TERMINAL ILEUM 07/16/2014 NASAL ENDOS,DIAG,UNI/ BILATERAL 02/13/2022 Polyp removal PAST SURGICAL HISTORY OF 2013 left breast biopsy- benign SEPTOPLASTY/SUBMUCOUS RESECJ W/WO CARTILAGE GRF 2006 Septoplasty SINUS SURGERY PROCEDURE Bilateral 04/02/2017 [facility] Dr. Wartmann. Sinonasal polypectomy, revision maxillary antrostomy, total ethmoidectomy, sphenoidotomy TOTAL ABDOMINAL HYSTERECT W/WO RMVL TUBE OVARY 1993 Hysterectomy, OPAL BSO XCAPSL CTRC RMVL INSJ IO LENS PROSTH W/O ECP 10/10/2013 Cataract Extraction with PC IOL I reviewed the past medical history, family history, social history and surgical history with changes noted above and updated in EMR. IMMUNIZATIONS Prevnar 13 - xx Pneumovax 23 - 04/08/2006 Influenza - xx COVID-19 - xx ROS: CONSTITUTIONAL: No fevers, chills, nightsweats, unintended weight loss HEENT: Denies headaches. Persistent nasal congestion/sinus symptoms, nasal polyps CARDIOVASCULAR: No chest pain, palpitations, orthopnea, PND, edema. PULM: See HPI GI: No dysphagia/odynophagia, problematic reflux MUSC-SKEL: No new joint pain, swelling, or erythema. Chronic back pain. PSY: Anxiety and stress INTEGUMENTARY: No new skin changes or rashes PHYSICAL EXAMINATION: BP 140/76 (BP Site: Right Arm, BP Position: Sitting, BP Cuff Size: Large Adult) Pulse 106 Resp 16 Ht 152.4 cm (5') Wt 67.6 kg (149 lb) SpO2 97% BMI 29.10 kg/m Gen: No acute distress. Cooperative with examination. HEENT: Normocephalic. Sclera, conjunctiva clear. Oral hygeine and dentition good. No thrush. Resp: No stridor, accessory respiratory muscle use, supra-sternal or intercostal retractions. No wheezes, crackles. CV: Regular rythm. Heart tones normal. Radial pulses normal. Abd: Non distended. MSK: No kyphoscoliosis. Ext: Warm and well perfused. No clubbing, cyanosis, edema. Skin: No rash, ecchymoses. Neuro: Mental status normal. Affect normal. No tremor. DATA: Exhaled nitric oxide (Isabella), 12/03/2022: 49.0 (normal < 20). Test Date Oral Exhaled Nitric Oxide (ppb) 06/04/2022 95.0 (A) 08/17/2021 109.0 (A) 12/21/2019 216.0 (A) PFT: Review of spirometry shows obstruction of small airways PFT 08/2021: ASSESSMENT/PLAN: 1. Asthma, moderate persistent, well-controlled - ICD9: 493.90, ICD10: J45.40 (primary diagnosis) Nitric oxide remains elevated, but significantly improved. Continue Symbicort 2 inhalations twice daily. Rinse mouth after each use to help prevent oral thrush. Albuterol HFA inhaler, 2 inhalations 10-15 minutes prior to activities associated with shortness of breath, and as needed for rescue relief of shortness of breath or wheezing, up to 4 times daily. Continue Singulair. - IGE BLD - EOSINOPHIL ABS COUNT 2. Allergic rhinitis, unspecified seasonality, unspecified trigger - ICD9: 477.9, ICD10: J30.9 Referral to allergy. Check IgE and eosinophil - CONSULT TO ALLERGY/IMMUNOLOGY - IGE BLD - EOSINOPHIL ABS COUNT 3. Nasal polyposis - ICD9: 471.9, ICD10: J33.9 Follow up with [facility]. 4. Chronic sinusitis, unspecified location - ICD9: 473.9, ICD10: J32.9 See #3 Portions of this documentation were copied and pasted from previous office visit notes in order to provide a cohesive continuity of the history. The note has been reviewed and edited and updated as necessary. Ellen Navarro PA-C documented in this encounter [facility] 12-03-2022 Nurse Note Patient presents with: Asthma States doing well with inhalers, but has been having sinus congestion and drainage that is thick, yellow-greenish drainage. Asking asking another dose of prednisone. No CP or SOB. documented in this encounter [facility] 11-19-2022 Miscellaneous Notes Verified name and date of . Patient phones requesting refills as follows: Requested Prescriptions Pending Prescriptions Disp Refills budesonide-formoterol (SYMBICORT) 160-4.5 mcg/actuation inhaler Sig: Inhale 2 Puffs as instructed twice daily. albuterol HFA (VENTOLIN HFA) 90 mcg/actuation inhaler 18 g 5 Sig: Inhale 2 Puffs as instructed every 4 hours as needed for wheezing/shortness of breath. Verified pharmacy. Please review and advise. Wendy Beckman LPN documented in this encounter [facility] 10-23-2022 Note HNO ID: [id number] Author: Nuno Benson APRN.BRIM SHAPER Service: ? Author Type: Nurse Practitioner Type: Progress Notes Filed: 10/23/2022 5:07 PM Note Text: SUBJECTIVE Chey Jeffers is a 61 year old female here today for a check up on her medical problems. Chief Complaint Patient presents with: F/U 6 months HPI Chey Jeffers is a 61 year old female established patient of Edda Oconnor MD who presents today for 6 month follow up. Doing ok breathing ibarra, issues with allergies this time of year. 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 Some relationship issues too. Otherwise doing okay, GERD controlled, eczema to some areas. Taking her statin for cholesterol. Her medications were reviewed today and her list is now up to date. Medications Current Outpatient Medications Medication Sig triamcinolone acetonide (KENALOG) 0.1 % cream Apply 1 application to affected area three times daily as needed. Apply sparingly to area for rash/itching. Up to 4 weeks Albuterol Sulfate 1.25 mg/3 mL nebulizer solution Use 1 Ampule via nebulizer every 6 hours as needed for wheezing/shortness of breath. ipratropium (ATROVENT) 0.02 % nebulizer solution Use 2.5 mL via nebulizer four times daily as needed for wheezing/shortness of breath. clonazePAM (KLONOPIN) 0.5 mg tablet Take 1 tablet by mouth twice daily for 180 days. Do not start before July 08, 2022. sucralfate (CARAFATE) 1 gram tablet Take 1 tablet by mouth before meals and at bedtime. montelukast (SINGULAIR) 10 mg tablet Take 1 tablet by mouth daily at bedtime. Estradiol (ESTRACE) 0.5 mg tablet Take 1 tablet by mouth once daily. ipratropium bromide (ATROVENT) 42 mcg (0.06 %) nasal spray Use 2 Sprays in the nose three times daily as needed. budesonide-formoterol (SYMBICORT) 160-4.5 mcg/actuation inhaler Inhale 2 Puffs as instructed twice daily. albuterol HFA (VENTOLIN HFA) 90 mcg/actuation inhaler Inhale 2 Puffs as instructed every 4 hours as needed for wheezing/shortness of breath. calcium carb/vit D2/minerals (CALTRATE PLUS ORAL) Take 1 capsule by mouth once daily. fluticasone (FLONASE) 50 mcg/actuation nasal spray Use 1 Marston in each nostril twice daily. VIA SPACER THEN RINSE AND GARGLE MOUTH WITH WATER. LOPERAMIDE HCL (IMODIUM ORAL) Take by mouth as needed. fexofenadine (NAN) 180 mg ORAL tablet Take one(1) tablet daily. vit e acetate/gly/dimeth/water(CETAPHIL MOISTURIZING LOTION) apply twice daily lansoprazole (PREVACID) 30 mg capsule Take 1 capsule by mouth once daily. simvastatin (ZOCOR) 40 mg tablet Take 1 tablet by mouth daily at bedtime. imipramine HCl (TOFRANIL) 25 mg tablet Take 2 tablets by mouth daily at bedtime. lamoTRIgine (LAMICTAL) 25 mg tablet Take 1 tablet by mouth once daily. No current facility-administered medications for this visit. ALLERGIES Allergen Reactions Aspirin [Salicylate* Swelling, Shortness of Breath wheezing,swelling lips,rash,hives Cefdinir Itching Itchy scaly rash. Codeine Hives Vicodin [Hydrocodon* Hives Demerol [Meperidine* Rash Ambien [Zolpidem] Intolerance Was sleepwalking (arranging books but hull not recall) Bactrim [Sulfametho* uncertain Budesonide Rash Celexa [Citalopram * GI Upset Doxy [Doxycycline] rash and asthma Durezol [Diflupredn* Rash Environmental Aller* Dogs, molds Ibuprofen Shortness of Breath Lexapro [Escitalopr* GI Upset Lyrica [Pregabalin] Mental Status Change dizzy Macrobid [Nitrofura* Diarrhea Maprotiline Itching Monurol [Fosfomycin] Diarrhea Mucomyst [Acetylcys* Cough increase wheezing Oxycodone Shortness of Breath Penicillins rash Prednisone Itching Toradol [Ketorolac * Swelling Tylenol [Acetaminop* Intolerance asthma Ultram [Tramadol Hc* Other: See Comments chest pains Vancomycin Other: See Comments Wheezing after taking, legs swollen and tongue swelling and scratchy neck Venlafaxine GI Upset Zithromax [Azithrom* Itching Mirtazapine Other: See Comments Hand shakes. 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 - 01/16/2017 Serrated Adenoma of Colon - 07/29/2014 Osteoporosis - 05/24/2013 Ddd (Degenerative Disc Disease), Lumbosacral - 09/07/2011 Fibromyalgia - 07/27/2009 Esophageal Reflux - 08/05/2008 Sinusitis, Chronic - 06/21/2008 Chronic Rhinitis - 02/27/2006 Pure Hypercholesterolemia Irritable Bowel Syndrome Anxiety and Depression - 06/12/2005 Other Chronic Cystitis - 06/04/2005 Asthma With Chronic Obstructive Pulmonary Disease (Copd) ([facility]) - 05/24/2005 Menopause Syndrome - 01/19/2005 Social History Tobacco Use Smoking status: Never Smokeless tobacco: Never Tobacco comments: ETS from parents in childhood (more content not included)... [facility] 10-10-2022 Note Patient Outreach (IN TMMN) CHEY JEFFERS ([id number]) 1960 F Date Time Provider Department 10/10/22 EDDA OCONNOR During your visit today, we recorded the following information about you: Allergies As of Date: 10/10/2022 Noted Allergy Reaction ASPIRIN (SALICYLATES) 05/24/2006 7 - Swelling 12 - Shortness of Breath Comments: wheezing,swelling lips,rash,hives CEFDINIR 12/21/2019 9 - Itching Comments: Itchy scaly rash. CODEINE 02/15/2005 4 - Hives VICODIN (HYDROCODONE-ACETAMINOPHE*02/16/20 05 4 - Hives DEMEROL (MEPERIDINE (PF)) 01/03/2006 2 - Rash AMBIEN (ZOLPIDEM) 04/07/2022 5 - Intolerance Comments: Was sleepwalking (arranging books but hull not recall) BACTRIM (SULFAMETHOXAZOLE-TRIMETH*07/26/19 06 Comments: uncertain BUDESONIDE 06/26/2018 2 - Rash CELEXA (CITALOPRAM HYDROBROMIDE) 07/25/2005 8 - GI Upset DOXY (DOXYCYCLINE) 06/04/2005 Comments: rash and asthma DUREZOL (DIFLUPREDNATE) 03/04/2014 2 - Rash Environmental allergies [Other] 02/25/2006 Comments: Dogs, molds IBUPROFEN 07/25/2005 12 - Shortness of Breath LEXAPRO (ESCITALOPRAM OXALATE) 07/25/2005 8 - GI Upset LYRICA (PREGABALIN) 04/10/2011 1 - Mental Status Change Comments: dizzy MACROBID (NITROFURANTOIN MONOHYD/*06/26/2018 6 - Diarrhea MAPROTILINE 05/16/2009 9 - Itching MONUROL (FOSFOMYCIN) 05/18/2021 6 - Diarrhea MUCOMYST (ACETYLCYSTEINE) 10/30/2012 3 - Cough Comments: [...] See Comments Comments: Hand shakes. Date Reviewed: 06/22/2022 Reviewed by: Parivn Mcneil LPN - Fully Assessed Visit Diagnosis:Encounter for screening mammogram for breast cancer [Z12.31] Order(s):[facility] SCREENING [2199975] Order #: [id number] FUTURE Prescriptions as of 10/15/2022 - triamcinolone acetonide (KENALOG) 0.1 % cream Apply 1 application to affected area three times daily as needed. Apply sparingly to area for rash/itching. Up to 4 weeks - nystatin (MYCOSTATIN) cream Apply to affected area twice daily. Use for 1 week past rash and itching resolving. - methylPREDNISolone (MEDROL, DYLON,) 4 mg Dose-Pack As Instructed per package - Albuterol Sulfate 1.25 mg/3 mL nebulizer solution Use 1 Ampule via nebulizer every 6 hours as needed for wheezing/shortness of breath. - ipratropium (ATROVENT) 0.02 % nebulizer solution Use 2.5 mL via nebulizer four times daily as needed for wheezing/shortness of breath. - clonazePAM (KLONOPIN) 0.5 mg tablet Take 1 tablet by mouth twice daily for 180 days. Do not start before July 08, 2022. - sucralfate (CARAFATE) 1 gram tablet Take 1 tablet by mouth before meals and at bedtime. - montelukast (SINGULAIR) 10 mg tablet Take 1 tablet by mouth daily at bedtime. - Estradiol (ESTRACE) 0.5 mg tablet Take 1 tablet by mouth once daily. - ipratropium bromide (ATROVENT) 42 mcg (0.06 %) nasal spray Use 2 Sprays in the nose three times daily as needed. - lansoprazole (PREVACID) 30 mg capsule Take 1 capsule by mouth once daily. - imipramine HCl (TOFRANIL) 25 mg tablet Take 2 tablets by mouth daily at bedtime. - budesonide-formoterol (SYMBICORT) 160-4.5 mcg/actuation inhaler Inhale 2 Puffs as instructed twice daily. - albuterol HFA (VENTOLIN HFA) 90 mcg/actuation inhaler Inhale 2 Puffs as instructed every 4 hours as needed for wheezing/shortness of breath. - simvastatin (ZOCOR) 40 mg tablet Take 1 tablet by mouth daily at bedtime. - calcium carb/vit D2/minerals (CALTRATE PLUS ORAL) Take 1 capsule by mouth once daily. - fluticasone (FLONASE) 50 mcg/actuation nasal spray Use 1 Marston in each nostril twice daily. VIA SPACER THEN RINSE AND GARGLE MOUTH WITH WATER. - LOPERAMIDE HCL (IMODIUM ORAL) Take by mouth as needed. - fexofenadine (NAN) 180 mg ORAL tablet Take one(1) tablet daily. 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 [facility] 07-16-2022 Miscellaneous Notes Sent to pharmacy Ph[facility] Patient calls in regards to prescription for Duoneb for nebulizer. [facility] does not have combo medication. Requesting prescription for ipratropium and one for the albuterol instead. documented in this encounter [facility] 07-16-2022 Miscellaneous Notes Patient called requesting the following refill Refill(s) Requested: Requested Prescriptions Pending Prescriptions Disp Refills ipratropium-albuterol (DUONEB) 0.5 mg-3 mg(2.5 mg base)/3 mL nebu 60 Each 5 Sig: Inhale 3 mL as instructed every 4 hours as needed. ALLERGIES Allergen Reactions Aspirin [Salicylate* Swelling, Shortness of Breath wheezing,swelling lips,rash,hives Cefdinir Itching Itchy scaly rash. Codeine Hives Vicodin [Hydrocodon* Hives Demerol [Meperidine* Rash Ambien [Zolpidem] Intolerance Was sleepwalking (arranging books but hull not recall) Bactrim [Sulfametho* uncertain Budesonide Rash Celexa [Citalopram * GI Upset Doxy [Doxycycline] rash and asthma Durezol [Diflupredn* Rash Environmental Aller* Dogs, molds Ibuprofen Shortness of Breath Lexapro [Escitalopr* GI Upset Lyrica [Pregabalin] Mental Status Change dizzy Macrobid [Nitrofura* Diarrhea Maprotiline Itching Monurol [Fosfomycin] Diarrhea Mucomyst [Acetylcys* Cough increase wheezing Oxycodone Shortness of Breath Penicillins rash Prednisone Itching Toradol [Ketorolac * Swelling Tylenol [Acetaminop* Intolerance asthma Ultram [Tramadol Hc* Other: See Comments chest pains Vancomycin Other: See Comments Wheezing after taking, legs swollen and tongue swelling and scratchy neck Venlafaxine GI Upset Zithromax [Azithrom* Itching Mirtazapine Other: See Comments Hand shakes. (home) [phone] (cell) Last Office Visit Date: 06/04/2022 Last [facility] Visit: Visit date not found Future Appointment: 12/03/2022 The patients preferred pharmacy has been captured for this encounter? yes Request is for script(s) to be escript to pharmacy. Zohra Torres LPN documented in this encounter [facility] 07-16-2022 Miscellaneous Notes Opened in error documented in this encounter [facility] 07-11-2022 Miscellaneous Notes Spoke with pharmacy and it is on file and can be filled at patient's convenience. Patient aware of same. Patient calling today and states that her pharmacy, [facility] has not yet received the prescription for clonazePAM (KLONOPIN) 0.5 mg tablet. Patient asking for a return call once it is called into pharmacy. The following approved medication requests have been transmitted electronically. Requested Prescriptions Signed Prescriptions Disp Refills clonazePAM (KLONOPIN) 0.5 mg tablet 60 tablet 5 Sig: Take 1 tablet by mouth twice daily for 180 days. Do not start before July 08, 2022. Authorizing Provider: EDDA OCONNOR MD Patient has been identified by name and date of : Yes, Provider Benigno Date 07/06/22 Time 3:31 Patient phones for refill(s): Requested Prescriptions Pending Prescriptions Disp Refills clonazePAM (KLONOPIN) 0.5 mg tablet 60 tablet 5 Sig: Take 1 tablet by mouth twice daily for 180 days. Date of last office visit in primary care: 06/22/22 No follow up scheduled Last 2 Encounter Wt Readings: Date: Wt: 06/22/2022 63.5 kg (140 lb) 06/04/2022 64 kg (141 lb 1.5 oz) Please advise. Thank you. Jahaira Nelson LPN Patient has been identified by name and date of : Yes Requested Prescriptions Pending Prescriptions Disp Refills clonazePAM (KLONOPIN) 0.5 mg tablet 60 tablet 5 Sig: Take 1 tablet by mouth twice daily for 180 days. RX INSTRUCTIONS: Patient aware RX will be sent to pharmacy. No need to notify patient. Martine Nuñez Pss documented in this encounter [facility] 06-22-2022 Note HNO ID: [id number] Author: Edda Oconnor MD Service: ? Author Type: Physician Type: Progress Notes Filed: 07/22/2022 11:05 PM Note Text: This note was created using NoteWriter. Subjective Chey Jeffers is a 61 year old female. Patient presents with: Established Patient: Elevated skin lesion on right upper leg since 10/2021 SUBJECTIVE: Chey Jeffers is a 61 year old year old lady here today for follow up appointment for review of medical conditions. Waiting for appointment with Dr. Kaleb Gee. Main concern was right thigh nodular lesion since last October that has been really itchy after bug bite Also wondered about RLQ lesion--stable several years. Sometimes gets scaly or rough. No bleeding. Also noted lesion on right side of nose. Stable for years. Used to be white but now black (per patient) (dark colored). PAST MEDICAL HISTORY Diagnosis Date Abnormal ultrasound of breast 06/17/2013 Acute gastritis Ankylosing spondylitis (HCC) Anxiety and depression 06/12/2005 Bilateral renal cysts 03/11/2015 Calculus of kidney Dysthymic disorder Depression (non-psychotic) Enterocolitis due to Clostridium difficile 01/12/2015 Esophageal reflux HNP (herniated nucleus pulposus), lumbar 08/22/2011 Intrinsic asthma, unspecified 08/05/2008 Irritable bowel syndrome Irritable bowel assisted 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 01/16/2017 Menopause syndrome 01/19/2005 Myalgia and myositis, unspecified Nasal polyposis Polypectomy 03/2017 Dr. Mazariegos [facility]. Pure hypercholesterolemia Serrated adenoma of colon 07/29/2014 Symptomatic menopausal or female climacteric states Unspecified asthma(493.90) Unspecified sinusitis (chronic) 06/21/2008 Current Outpatient Medications Medication Sig sucralfate (CARAFATE) 1 gram tablet Take 1 tablet by mouth before meals and at bedtime. montelukast (SINGULAIR) 10 mg tablet Take 1 tablet by mouth daily at bedtime. Estradiol (ESTRACE) 0.5 mg tablet Take 1 tablet by mouth once daily. ipratropium bromide (ATROVENT) 42 mcg (0.06 %) nasal spray Use 2 Sprays in the nose three times daily as needed. clonazePAM (KLONOPIN) 0.5 mg tablet Take 1 tablet by mouth twice daily for 180 days. lansoprazole (PREVACID) 30 mg capsule Take 1 capsule by mouth once daily. imipramine HCl (TOFRANIL) 25 mg tablet Take 2 tablets by mouth daily at bedtime. budesonide-formoterol (SYMBICORT) 160-4.5 mcg/actuation inhaler Inhale 2 Puffs as instructed twice daily. albuterol HFA (VENTOLIN HFA) 90 mcg/actuation inhaler Inhale 2 Puffs as instructed every 4 hours as needed for wheezing/shortness of breath. simvastatin (ZOCOR) 40 mg tablet Take 1 tablet by mouth daily at bedtime. ipratropium-albuterol (DUONEB) 0.5 mg-3 mg(2.5 mg base)/3 mL nebu Inhale 3 mL as instructed every 4 hours as needed. calcium carb/vit D2/minerals (CALTRATE PLUS ORAL) Take 1 capsule by mouth once daily. fluticasone (FLONASE) 50 mcg/actuation nasal spray Use 1 Marston in each nostril twice daily. VIA SPACER THEN RINSE AND GARGLE MOUTH WITH WATER. LOPERAMIDE HCL (IMODIUM ORAL) Take by mouth as needed. fexofenadine (NAN) 180 mg ORAL tablet Take one(1) tablet daily. vit e acetate/gly/dimeth/water(CETAPHIL MOISTURIZING LOTION) apply twice daily No current facility-administered medications for this visit. Review of Systems Objective BP 112/69 Pulse 98 Temp 36.6 ?C (97.8 ?F) Resp 18 Wt 63.5 kg (140 lb) SpO2 99% BMI 27.34 kg/m? Physical Exam Constitutional: Appearance: Normal appearance. Eyes: Conjunctiva/sclera: Conjunctivae normal. Pulmonary: Effort: Pulmonary effort is normal. Skin: General: Skin is warm and dry. Coloration: Skin is not jaundiced. Neurological: Mental Status: She is alert. Psychiatric: Attention and Perception: Attention and perception normal. Mood and Affect: Mood is anxious. Speech: Speech normal. Behavior: Behavior normal. Thought Content: Thought content normal. Small skin lesion right thigh laterally--flesh colored, raised about 4mm diameter, slightly scaly. RLQ skin lesion about dime size with surface like seborrheic keratosis Skin lesion right side of nose noted. Assessment and Plan Encounter Diagnosis ICD-10-CM 1. Skin lesion of right leg L98.9 Itchy. Since last October when had insect bite. Will see if resolves with topical steroid. 2. Seborrheic keratosis L82.1 RLQ--about dime sized 3. Lesion of skin of nose L98.9 Right side of nose--bustillos color about 4mm diameter Can address skin lesions with dermatology at already scheduled appointment. Discussed benign SK. If gets irritated, can see general surgeon to excise. Further evaluation and treatment as indicated. I spent a total of 20 minutes on the date of the service which included [id number] patient care, completing clinical documentation, performing a medically appropriate examination, counseling and educating the patient/family/caregiver, and ordering medications, (more content not included)... [facility] 06-22-2022 History of Present illness Narrative This note was created using [email or web address]. Subjective Chey Jeffers is a 61 year old female. Patient presents with: Established Patient: Elevated skin lesion on right upper leg since 10/2021 SUBJECTIVE: Chey Jeffers is a 61 year old year old lady here today for follow up appointment for review of medical conditions. Waiting for appointment with Dr. Kaleb Gee. Main concern was right thigh nodular lesion since last October that has been really itchy after bug bite Also wondered about RLQ lesion--stable several years. Sometimes gets scaly or rough. No bleeding. Also noted lesion on right side of nose. Stable for years. Used to be white but now black (per patient) (dark colored). 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 Mazariegos [facility]. Pure hypercholesterolemia Serrated adenoma of colon 07/29/2014 Symptomatic menopausal or female climacteric states Unspecified asthma(493.90) Unspecified sinusitis (chronic) 06/21/2008 Current Outpatient Medications Medication Sig sucralfate (CARAFATE) 1 gram tablet Take 1 tablet by mouth before meals and at bedtime. montelukast (SINGULAIR) 10 mg tablet Take 1 tablet by mouth daily at bedtime. Estradiol (ESTRACE) 0.5 mg tablet Take 1 tablet by mouth once daily. ipratropium bromide (ATROVENT) 42 mcg (0.06 %) nasal spray Use 2 Sprays in the nose three times daily as needed. clonazePAM (KLONOPIN) 0.5 mg tablet Take 1 tablet by mouth twice daily for 180 days. lansoprazole (PREVACID) 30 mg capsule Take 1 capsule by mouth once daily. imipramine HCl (TOFRANIL) 25 mg tablet Take 2 tablets by mouth daily at bedtime. budesonide-formoterol (SYMBICORT) 160-4.5 mcg/actuation inhaler Inhale 2 Puffs as instructed twice daily. albuterol HFA (VENTOLIN HFA) 90 mcg/actuation inhaler Inhale 2 Puffs as instructed every 4 hours as needed for wheezing/shortness of breath. simvastatin (ZOCOR) 40 mg tablet Take 1 tablet by mouth daily at bedtime. ipratropium-albuterol (DUONEB) 0.5 mg-3 mg(2.5 mg base)/3 mL nebu Inhale 3 mL as instructed every 4 hours as needed. calcium carb/vit D2/minerals (CALTRATE PLUS ORAL) Take 1 capsule by mouth once daily. fluticasone (FLONASE) 50 mcg/actuation nasal spray Use 1 Marston in each nostril twice daily. VIA SPACER THEN RINSE AND GARGLE MOUTH WITH WATER. LOPERAMIDE HCL (IMODIUM ORAL) Take by mouth as needed. fexofenadine (NAN) 180 mg ORAL tablet Take one(1) tablet daily. vit e acetate/gly/dimeth/water(CETAPHIL MOISTURIZING LOTION) apply twice daily No current facility-administered medications for this visit. Review of Systems Objective BP 112/69 Pulse 98 Temp 36.6 C (97.8 F) Resp 18 Wt 63.5 kg (140 lb) SpO2 99% BMI 27.34 kg/m Physical Exam Constitutional: Appearance: Normal appearance. Eyes: Conjunctiva/sclera: Conjunctivae normal. Pulmonary: Effort: Pulmonary effort is normal. Skin: General: Skin is warm and dry. Coloration: Skin is not jaundiced. Neurological: Mental Status: She is alert. Psychiatric: Attention and Perception: Attention and perception normal. Mood and Affect: Mood is anxious. Speech: Speech normal. Behavior: Behavior normal. Thought Content: Thought content normal. Small skin lesion right thigh laterally--flesh colored, raised about 4mm diameter, slightly scaly. RLQ skin lesion about dime size with surface like seborrheic keratosis Skin lesion right side of nose noted. Assessment and Plan Encounter Diagnosis ICD-10-CM 1. Skin lesion of right leg L98.9 Itchy. Since last October when had insect bite. Will see if resolves with topical steroid. 2. Seborrheic keratosis L82.1 RLQ--about dime sized 3. Lesion of skin of nose L98.9 Right side of nose--bustillos color about 4mm diameter Can address skin lesions with dermatology at already scheduled appointment. Discussed benign SK. If gets irritated, can see general surgeon to excise. Further evaluation and treatment as indicated. I spent a total of 20 minutes on the date of the service which included [id number] patient care, completing clinical documentation, performing a medically appropriate examination, counseling and educating the patient/family/caregiver, and ordering medications, tests, or procedures. Edda Oconnor MD documented in this encounter [facility] 06-04-2022 Note HNO ID: [id number] Author: Mary Lou Nicholson MD Service: ? Author Type: Physician Type: Progress Notes Filed: 06/04/2022 3:34 PM Note Text: . [facility] [place] Note Patient name: Chey Jeffers PCP: Edda Oconnor MD CC: follow-up asthma HPI: Chey Jeffers 61 year old female non-smoker with PMH significant for ankylosing spondylitis, depression, GERD, nasal polyposis, chronic sinusitis, and asthma, former patient of Dr. Goddard, new to me. Current therapy consists of Symbicort and as needed albuterol. Intolerant of dry powder inhalers. Not using Symbicort twice daily as prescribed, claiming she forgets. She becomes distracted due to care of her disabled brother. Asthma is triggered mainly by her persistent sinus congestion and postnasal drip, exposure to certain odors and fumes, and cold air. Having persistent upper chest congestion, occasional wheezing, no significant dyspnea on exertion, sputum production. Cough mainly related to her postnasal drip, throat clearing. She has not been using her albuterol. She did have sinus surgery back in February. She has yet to follow-up with ENT. Noting green nasal drainage with persistent congestion but no fevers or headaches. DATA: SERVICE DATE: 06/04/2022 SERVICE TIME: 9:45 AM Oral Exhaled Nitric Oxide measurement: 95.0 (ppb) (A) SERVICE DATE: 08/17/2021 SERVICE TIME: 10:24 AM Oral Exhaled Nitric Oxide measurement: 109.0 (ppb) (A) PFT: Review of spirometry shows obstruction of small airways PFT 08/2021: Labs: Component Ref Range AND Units 1 mo ago Vitamin D 25 Hydroxy 31.0 - 80.0 ng/mL 28.9 Low Imaging / Diagnostic Studies: No recent chest imaging PAST MEDICAL HISTORY Diagnosis Date Abnormal ultrasound of breast 06/17/2013 Acute gastritis Ankylosing spondylitis (HCC) Anxiety and depression 06/12/2005 Bilateral renal cysts 03/11/2015 Calculus of kidney Dysthymic disorder Depression (non-psychotic) Enterocolitis due to Clostridium difficile 01/12/2015 Esophageal reflux HNP (herniated nucleus pulposus), lumbar 08/22/2011 Intrinsic asthma, unspecified 08/05/2008 Irritable bowel syndrome 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 Mazariegos [facility]. Pure hypercholesterolemia Serrated adenoma of colon 07/29/2014 Symptomatic menopausal or female climacteric states Unspecified asthma(493.90) Unspecified sinusitis (chronic) 06/21/2008 ALLERGIES Allergen Reactions Aspirin [Salicylate* Swelling, Shortness of Breath wheezing,swelling lips,rash,hives Cefdinir Itching Itchy scaly rash. Codeine Hives Vicodin [Hydrocodon* Hives Demerol [Meperidine* Rash Ambien [Zolpidem] Intolerance Was sleepwalking (arranging books but hull not recall) Bactrim [Sulfametho* uncertain Budesonide Rash Celexa [Citalopram * GI Upset Doxy [Doxycycline] rash and asthma Durezol [Diflupredn* Rash Environmental Aller* Dogs, molds Ibuprofen Shortness of Breath Lexapro [Escitalopr* GI Upset Lyrica [Pregabalin] Mental Status Change dizzy Macrobid [Nitrofura* Diarrhea Maprotiline Itching Monurol [Fosfomycin] Diarrhea Mucomyst [Acetylcys* Cough increase wheezing Oxycodone Shortness of Breath Penicillins rash Prednisone Itching Toradol [Ketorolac * Swelling Tylenol [Acetaminop* Intolerance asthma Ultram [Tramadol Hc* Other: See Comments chest pains Vancomycin Other: See Comments Wheezing after taking, legs swollen and tongue swelling and scratchy neck Venlafaxine GI Upset Zithromax [Azithrom* Itching Mirtazapine Other: See Comments Hand shakes. sucralfate (CARAFATE) 1 gram tablet Take 1 tablet by mouth before meals and at bedtime. montelukast (SINGULAIR) 10 mg tablet Take 1 tablet by mouth daily at bedtime. Estradiol (ESTRACE) 0.5 mg tablet Take 1 tablet by mouth once daily. ipratropium bromide (ATROVENT) 42 mcg (0.06 %) nasal spray Use 2 Sprays in the nose three times daily as needed. clonazePAM (KLONOPIN) 0.5 mg tablet Take 1 tablet by mouth twice daily for 180 days. lansoprazole (PREVACID) 30 mg capsule Take 1 capsule by mouth once daily. imipramine HCl (TOFRANIL) 25 mg tablet Take 2 tablets by mouth daily at bedtime. budesonide-formoterol (SYMBICORT) 160-4.5 mcg/actuation inhaler Inhale 2 Puffs as instructed twice daily. albuterol HFA (VENTOLIN HFA) 90 mcg/actuation inhaler Inhale 2 Puffs as instructed every 4 hours as needed for wheezing/shortness of breath. simvastatin (ZOCOR) 40 mg tablet Take 1 tablet by mouth daily at bedtime. ipratropium-albuterol (DUONEB) 0.5 mg-3 mg(2.5 mg base)/3 mL nebu Inhale 3 mL as instructed every 4 hours as needed. calcium carb/vit D2/minerals (CALTRATE PLUS ORAL) Take 1 capsule by mouth once daily. fluticasone (FLONASE) 50 mcg/actuation nasal spray Use 1 Marston in each nostril twice kehinde (more content not included)... [facility] 06-04-2022 Note HNO ID: [id number] Author: LA Goddard Service: ? Author Type: Respiratory Therapist Type: Procedures Filed: 06/04/2022 9:45 AM Note Text: RESPIRATORY THERAPY ORAL EXHALED NITRIC OXIDE SERVICE DATE: 06/04/2022 SERVICE TIME: 9:45 AM Oral Exhaled Nitric Oxide measurement: 95.0 (ppb) (A) Normal: Adult 5-20 ppb, pediatric (<12 years) 5-15 ppb High Normal / Increased: Adult 20-35 ppb, pediatric (<12 years) 15-25 ppb Moderately raised exhaled Nitric Oxide may indicate underlying inflammation, but note that: Cold and influenza can raise exhaled Nitric Oxide and some patients have higher baseline exhaled Nitric Oxide levels than others. High: Adult >35 ppb, pediatric (<12 years) >25 ppb Indicative of ongoing eosinophilic inflammation. Symptomatic patient likely to respond to steroids. Possible causes (if already on steroids): Poor compliance, recent allergen exposure, steroid dose inadequate, and steroid resistance. Note that not all patients with high exhaled nitric oxide levels display symptoms. Oral Exhaled Nitric Oxide measurement (Previous Encounters) Test Date Oral Exhaled Nitric Oxide (ppb) 06/04/2022 95.0 (A) 08/17/2021 109.0 (A) 12/21/2019 216.0 (A) NAME: LA Goddard PATIENT NAME: Chey Jeffers DATE: June 04, 2022 TIME: 9:45 AM [facility] 06-04-2022 Note HNO ID: [id number] Author: LA Goddard Service: ? Author Type: Respiratory Therapist Type: Progress Notes Filed: 06/04/2022 9:45 AM Note Text: PULM FUNCTION SMARTBLOCK: Provider: Ellen Navarro PA-C Assisting Tech: LA Goddard Spirometry: 1 Exhaled Nitric Oxide: 1 [facility] 06-04-2022 History of Present illness Narrative Images from the original note were not included. . [facility] [place] Note Patient name: Chey Jeffers PCP: Edda Oconnor MD CC: follow-up asthma HPI: Chey Jeffers 61 year old female non-smoker with PMH significant for ankylosing spondylitis, depression, GERD, nasal polyposis, chronic sinusitis, and asthma, former patient of Dr. Goddard, new to me. Current therapy consists of Symbicort and as needed albuterol. Intolerant of dry powder inhalers. Not using Symbicort twice daily as prescribed, claiming she forgets. She becomes distracted due to care of her disabled brother. Asthma is triggered mainly by her persistent sinus congestion and postnasal drip, exposure to certain odors and fumes, and cold air. Having persistent upper chest congestion, occasional wheezing, no significant dyspnea on exertion, sputum production. Cough mainly related to her postnasal drip, throat clearing. She has not been using her albuterol. She did have sinus surgery back in February. She has yet to follow-up with ENT. Noting green nasal drainage with persistent congestion but no fevers or headaches. DATA: SERVICE DATE: 06/04/2022 SERVICE TIME: 9:45 AM Oral Exhaled Nitric Oxide measurement: 95.0 (ppb) (A) SERVICE DATE: 08/17/2021 SERVICE TIME: 10:24 AM Oral Exhaled Nitric Oxide measurement: 109.0 (ppb) (A) PFT: Review of spirometry shows obstruction of small airways PFT 08/2021: Labs: Component Ref Range & Units 1 mo ago Vitamin D 25 Hydroxy 31.0 - 80.0 ng/mL 28.9 Low Imaging / Diagnostic Studies: No recent chest imaging PAST MEDICAL HISTORY Diagnosis Date Abnormal ultrasound of breast 06/17/2013 Acute gastritis Ankylosing spondylitis (HCC) Anxiety and depression 06/12/2005 Bilateral renal cysts 03/11/2015 Calculus of kidney Dysthymic disorder Depression (non-psychotic) Enterocolitis due to Clostridium difficile 01/12/2015 Esophageal reflux HNP (herniated nucleus pulposus), lumbar 08/22/2011 Intrinsic asthma, unspecified 08/05/2008 Irritable bowel syndrome Irritable bowel assisted 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 01/16/2017 Menopause syndrome 01/19/2005 Myalgia and myositis, unspecified Nasal polyposis Polypectomy 03/2017 Dr. Mazariegos [facility]. Pure hypercholesterolemia Serrated adenoma of colon 07/29/2014 Symptomatic menopausal or female climacteric states Unspecified asthma(493.90) Unspecified sinusitis (chronic) 06/21/2008 ALLERGIES Allergen Reactions Aspirin [Salicylate* Swelling, Shortness of Breath wheezing,swelling lips,rash,hives Cefdinir Itching Itchy scaly rash. Codeine Hives Vicodin [Hydrocodon* Hives Demerol [Meperidine* Rash Ambien [Zolpidem] Intolerance Was sleepwalking (arranging books but hull not recall) Bactrim [Sulfametho* uncertain Budesonide Rash Celexa [Citalopram * GI Upset Doxy [Doxycycline] rash and asthma Durezol [Diflupredn* Rash Environmental Aller* Dogs, molds Ibuprofen Shortness of Breath Lexapro [Escitalopr* GI Upset Lyrica [Pregabalin] Mental Status Change dizzy Macrobid [Nitrofura* Diarrhea Maprotiline Itching Monurol [Fosfomycin] Diarrhea Mucomyst [Acetylcys* Cough increase wheezing Oxycodone Shortness of Breath Penicillins rash Prednisone Itching Toradol [Ketorolac * Swelling Tylenol [Acetaminop* Intolerance asthma Ultram [Tramadol Hc* Other: See Comments chest pains Vancomycin Other: See Comments Wheezing after taking, legs swollen and tongue swelling and scratchy neck Venlafaxine GI Upset Zithromax [Azithrom* Itching Mirtazapine Other: See Comments Hand shakes. sucralfate (CARAFATE) 1 gram tablet Take 1 tablet by mouth before meals and at bedtime. montelukast (SINGULAIR) 10 mg tablet Take 1 tablet by mouth daily at bedtime. Estradiol (ESTRACE) 0.5 mg tablet Take 1 tablet by mouth once daily. ipratropium bromide (ATROVENT) 42 mcg (0.06 %) nasal spray Use 2 Sprays in the nose three times daily as needed. clonazePAM (KLONOPIN) 0.5 mg tablet Take 1 tablet by mouth twice daily for 180 days. lansoprazole (PREVACID) 30 mg capsule Take 1 capsule by mouth once daily. imipramine HCl (TOFRANIL) 25 mg tablet Take 2 tablets by mouth daily at bedtime. budesonide-formoterol (SYMBICORT) 160-4.5 mcg/actuation inhaler Inhale 2 Puffs as instructed twice daily. albuterol HFA (VENTOLIN HFA) 90 mcg/actuation inhaler Inhale 2 Puffs as instructed every 4 hours as needed for wheezing/shortness of breath. simvastatin (ZOCOR) 40 mg tablet Take 1 tablet by mouth daily at bedtime. ipratropium-albuterol (DUONEB) 0.5 mg-3 mg(2.5 mg base)/3 mL nebu Inhale 3 mL as instructed every 4 hours as needed. calcium carb/vit D2/minerals (CALTRATE PLUS ORAL) Take 1 capsule by mouth once daily. fluticasone (FLONASE) 50 mcg/actuation nasal spray Use 1 Marston in each nostril twice daily. VIA SPACER THEN RINSE AND GARGLE MOUTH WITH WATER. LOPERAMIDE HCL (IMODIUM ORAL) Take by mouth as needed. fexofenadine (NAN) 180 mg ORAL tablet Take one(1) tablet daily. vit e acetate/gly/dimeth/water(CETAPHIL MOISTURIZING LOTION) apply twice daily Social History Tobacco Use Smoking status: Never Smokeless tobacco: Never Tobacco comments: ETS from parents in childhood home. Currently also has some household ETS. 03/17/2018. Vaping Use Vaping Use: Never used Substance Use Topics Alcohol use: Not Currently Drug use: No Pets: Dog and cat FAMILY HISTORY Problem Relation Age of Onset Emphysema Mother diabetic Heart Mother Blockage and she needs a bypass, but her COPD prevents Emphysema Father Heart Father Cancer Maternal Grandmother lung Colon Cancer Maternal Aunt COPD Maternal Uncle Coronary Artery Disease Paternal Aunt Breast Cancer Other mothers side (cousin) Cancer Maternal Uncle lung PAST SURGICAL HISTORY Procedure Laterality Date CHOLECYSTECTOMY 1998 Cholecystectomy COLONOSCOPY 04/07/2018 COLONOSCOPY FLX DX W/COLLJ SPEC WHEN PFRMD 04/24/2001 Colonoscopy COLONOSCOPY FLX DX W/COLLJ SPEC WHEN PFRMD 06/16/2013 Colonoscopy COLONOSCOPY FLX DX W/COLLJ SPEC WHEN PFRMD 03/10/2014 Colonoscopy COLONOSCOPY FLX DX W/COLLJ SPEC WHEN PFRMD 03/10/2015 Colonoscopy EGD 04/07/2018 ESOPHAGOGASTRODUODENOSCOPY TRANSORAL DIAGNOSTIC 04/24/2001 EGD ESOPHAGOGASTRODUODENOSCOPY TRANSORAL DIAGNOSTIC 07/11/2009 EGD EXCISION NOSE POLYP(S),SIMPLE 2007 Nasal polypectomy, Dr. Mcclelland LAPS COLECTOMY PRTL W/RMVL TERMINAL ILEUM 07/16/2014 NASAL ENDOS,DIAG,UNI/ BILATERAL 02/13/2022 Polyp removal PAST SURGICAL HISTORY OF 2013 left breast biopsy- benign SEPTOPLASTY/SUBMUCOUS RESECJ W/WO CARTILAGE GRF 2007 Septoplasty SINUS SURGERY PROCEDURE Bilateral 04/02/2017 [facility] Dr. Mazariegos. Sinonasal polypectomy, revision maxillary antrostomy, total ethmoidectomy, sphenoidotomy TOTAL ABDOMINAL HYSTERECT W/WO RMVL TUBE OVARY 1992 Hysterectomy, OPAL BSO XCAPSL CTRC RMVL INSJ IO LENS PROSTH W/O ECP 10/10/2013 Cataract Extraction with PC IOL PMH, Social history, family history and surgical history reviewed and updated in EMR REVIEW OF SYSTEMS: CONSTITUTIONAL: No fevers, chills, nightsweats, unintended weight loss HEENT: Denies headaches. Persistent nasal congestion/sinus symptoms, nasal polyps CARDIOVASCULAR: No chest pain, , palpitations, orthopnea, PND,edema. PULM: See HPI GI: No dysphagia/odynophagia, problematic reflux MUSC-SKEL: No new joint pain, swelling, or erythema. PSY: Anxiety and stress INTEGUMENTARY: No new skin changes or rashes PHYSICAL EXAMINATION: BP 132/82 Pulse 84 Resp 18 Ht 5' 0 (1.52m) Wt 141 lb 1.5 oz (64.0kg) SpO2 98% BMI 27.56 kg/(m^2). General Appearance: Age appropriate female, NAD Skin: Skin color, texture, turgor normal, no suspicious rashes or lesions. Head: Normocephalic, no masses, lesions, tenderness or abnormalities. Eyes: Sclera, conjunctiva normal Oropharynx: No oral lesions or thrush Neck: No JVD, no masses, no thyromegaly Lungs: Not labored, normal to percussion, no wheezes or crackles Heart: Regular rate and rhythm, no murmurs or gallops. Extremities: No edema clubbing Assessment/Plan: 1. Mild persistent asthma, uncomplicated -Exhaled nitric oxide level remains elevated. Patient needs to be compliant with Symbicort 2 puffs twice daily -No need for oral steroids at this time -Exhaled nitric oxide level at next visit -Vit D supplementation 2. Nasal polyposis/sinusitis -Instructed patient to follow-up with ENT Mary Lou Nicholson MD [facility] [place] documented in this encounter [facility] 06-04-2022 Procedure note Associated Ord er(s): NITRIC OXIDE, EXHALED RESPIRATORY THERAPY ORAL EXHALED NITRIC OXIDE SERVICE DATE: 06/04/2022 SERVICE TIME: 9:45 AM Oral Exhaled Nitric Oxide measurement: 95.0 (ppb) (A) Normal: Adult 5-20 ppb, pediatric (<12 years) 5-15 ppb High Normal / Increased: Adult 20-35 ppb, pediatric (<12 years) 15-25 ppb Moderately raised exhaled Nitric Oxide may indicate underlying inflammation, but note that: Cold and influenza can raise exhaled Nitric Oxide and some patients have higher baseline exhaled Nitric Oxide levels than others. High: Adult >35 ppb, pediatric (<12 years) >25 ppb Indicative of ongoing eosinophilic inflammation. Symptomatic patient likely to respond to steroids. Possible causes (if already on steroids): Poor compliance, recent allergen exposure, steroid dose inadequate, and steroid resistance. Note that not all patients with high exhaled nitric oxide levels display symptoms. Oral Exhaled Nitric Oxide measurement (Previous Encounters) Test Date Oral Exhaled Nitric Oxide (ppb) 06/04/2022 95.0 (A) 08/17/2021 109.0 (A) 12/21/2019 216.0 (A) NAME: LA Goddard PATIENT NAME: Chey Jeffers DATE: June 04, 2022 TIME: 9:45 AM documented in this encounter [facility] 06-04-2022 History of Present illness Narrative PULM FUNCTION SMARTBLOCK: Provider: Eleln Navarro PA-C Assisting Tech: LA Goddard Spirometry: 1 Exhaled Nitric Oxide: 1 documented in this encounter [facility] 05-08-2022 History of Present illness Narrative Radiology Service Progress Note PATIENT NAME: Chey Jeffers DATE OF SERVICE: May 08, 2022 TIME: 12:36 PM PATIENT IDENTITY VERIFICATION COMPLETED USING TWO (2) IDENTIFIERS: Name and Date of confirmed by patient verbally. FALL SCREENING: Has the patient had 2 falls in the last year or 1 fall with injury or currently using an Ambulatory Assistive Device (Walker, Cane, Wheelchair, Crutches, etc.)? No PATIENT GENDER DATA: Female. status: : No status: NO. PATIENT RELEVANT IMPLANT DATA REVIEWED: Not Applicable RADIOLOGY DEPARTMENT: Bone Density PERIPHERAL IV DATA: Not applicable SIGNED BY: RT Daniella(R) May 08, 2022 12:36 PM documented in this encounter [facility] 05-03-2022 Note HNO ID: [id number] Author: Elia Jacob APRN.BRIM SHAPER Service: ? Author Type: Nurse Practitioner Type: Progress Notes Filed: 05/03/2022 10:27 AM Note Text: [facility] Today's Date: 05/03/2022 Last Visit: 03/01/22 w/Dr. Solano Name: Chey Jeffers : 1960 Chief complaint: Low Back Pain History of Present Illness: Since last encounter, Chey Jeffers; reports that the chronic problem(s) detailed above are Unchanged. She has been seeing a chiropractor and has been having some temporary pain relief. Today she also inquires about intermittent hand weakness and difficulty with gripping objects. Pain Description: Timing: constant Character: aching, burning Primary Location: axial low back Radiation: Only on occasion she has LEFT posterior thigh, calf, dorsum of the foot Exacerbating factors: squatting and bending Relieving factors: sitting and lying down Interferes with: physical activity, household cleaning, and taking care of her special needs brother The patient denies difficulty with bowel or bladder control, unintentional weight loss, and fevers, chills, or night sweats. Recall: Patient of Dr. Solano Current Status: INTAKE PAIN ASSESSMENT 04/19/2022 05/03/2022 Are you having pain associated with your visit today? No Yes, Provider notified Pain Scales - Verbal (Numeric Rating or Visual Analog Scale) Pain Level - 10 Pain Location - Back-Lower Description - Sharp;Aching;Sore Duration Amount of Time - - Duration Units - Years Frequency - Continuous Intervention/Comfort measure - Reposition;Relaxation;Positioning Comments - - Pain Assessment - - Current Pain Medications: Opioids: NSAIDS: Anti-depressants: Anti-convulsants: Muscle relaxants: Others: RX Clonazepam Analgesia: not adequate Current Anti-Coagulant Use: No PAST Pain Medications (for the chief complaint(s)): Membrane Stabilizers: Maprotiline, Imiprimine, Neurontin (Gabapentin), Lyrica (Pregabalin), Cymbalta (Duloxetine), Effexor (Venlafaxine), and Elavil (Amitriptyline), (reports history of kidney stones) NSAIDS: none - allergy to Ibuprofen Opioids: Tramadol, Vicodin or [place] (Hydrocodone), Percocet (Oxycodone), and Duragesic (Fentanyl Patch) - allergies to everything tried except Fentanyl; Muscle Relaxants: Orphenadrine, Flexeril (Cyclobenzaprine), Lioresal (Baclofen), and Zanaflex (Tizanidine) Topicals: Voltaren Gel, Biofreeze, OTC Other Prescription or OTC Pain Medications: Tylenol (Acetaminophen) Anti-depressants: Imipramine, Klonopin Non-Pain Meds of Note: None Risk Assessment: BENITA-7: BENITA - 7 SCORES 01/16/2017 03/25/2018 12/14/2021 BENITA-7 Score 20 14 21 (0-4) minimal anxiety, (5-9) mild anxiety, (10-14) moderate anxiety, (15-21) severe anxiety PHQ-9: PHQ-9 07/04/2021 10/06/2021 12/14/2021 Score 18 13 13 (0-4) minimal depression, (5-9) mild depression, (10-14) moderate depression, (15-19) moderately severe depression, (20-27) severe depression Compliance: PDMP website checked and validated. All prescriptions have been APPROPRIATELY filled. No suspicious activity was identified. 05/03/2022 by Elia Jacob APRN.BRIM SHAPER Allergies: ALLERGIES Allergen Reactions Aspirin [Salicylate* Swelling, Shortness of Breath wheezing,swelling lips,rash,hives Cefdinir Itching Itchy scaly rash. Codeine Hives Vicodin [Hydrocodon* Hives Demerol [Meperidine* Rash Ambien [Zolpidem] Intolerance Was sleepwalking (arranging books but hull not recall) Bactrim [Sulfametho* uncertain Budesonide Rash Celexa [Citalopram * GI Upset Doxy [Doxycycline] rash and asthma Durezol [Diflupredn* Rash Environmental Aller* Dogs, molds Ibuprofen Shortness of Breath Lexapro [Escitalopr* GI Upset Lyrica [Pregabalin] Mental Status Change dizzy Macrobid [Nitrofura* Diarrhea Maprotiline Itching Monurol [Fosfomycin] Diarrhea Mucomyst [Acetylcys* Cough increase wheezing Oxycodone Shortness of Breath Penicillins rash Prednisone Itching Toradol [Ketorolac * Swelling Tylenol [Acetaminop* Intolerance asthma Ultram [Tramadol Hc* Other: See Comments chest pains Vancomycin Other: See Comments Wheezing after taking, legs swollen and tongue swelling and scratchy neck Venlafaxine GI Upset Zithromax [Azithrom* Itching Mirtazapine Other: See Comments Hand shakes. Data Reviewed: Reviewed personally on today's date 05/03/2022 Relevant Imaging: MRI Spine Report MRI LUMBAR SPINE WO IVCON Exam End: 03/23/2022 8:31 AM (Final result) Narrative: * * *Final Report* * * DATE OF EXAM: Mar 23 2022 8:25AM [facility] [id number] - MRI LUMBAR SPINE WO IVCON / PROCEDURE REASON: multiple diagnoses * * * * Physician Interpretation * * * * EXAMINATION: MRI LUMBAR SPINE WO IVCON CLINICAL HISTORY: Lumbar radiculopathy TECHNIQUE: Routine lumbosacral spine MR protocol without gadolinium. MQ: [id number] (more content not included)... [facility] 05-03-2022 Note HNO ID: [id number] Author: Lissette Morley MA Service: ? Author Type: Digital Account Director Type: Progress Notes Filed: 05/03/2022 10:27 AM Note Text: Review of Systems Constitutional: Negative for activity change, chills, fever and unexpected weight change. Gastrointestinal: Negative for bowel retention or incontinence Genitourinary: Negative for difficulty urinating. Negative for bladder retention or incontinence Musculoskeletal: Positive for back pain, gait problem, myalgias, neck pain and neck stiffness. Negative for arthralgias and joint swelling. Neurological: Positive for weakness, numbness and headaches (Sinus). Psychiatric/Behavioral: Positive for dysphoric mood and sleep disturbance. Negative for suicidal ideas. The patient is nervous/anxious. [facility] 05-03-2022 Instructions Elia Jacob APRN.BRIM SHAPER - 05/03/2022 10:27 AM EST Activity as tolerated Use Ice and/or heat as tolerated as needed documented in this encounter [facility] 05-03-2022 History of Present illness Narrative Images from the original note were not included. [facility] Today's Date: 05/03/2022 Last Visit: 03/01/22 w/Dr. Solano Name: Chey Jeffers : 1960 Chief complaint: Low Back Pain History of Present Illness: Since last encounter, Chey Jeffers; reports that the chronic problem(s) detailed above are Unchanged. She has been seeing a chiropractor and has been having some temporary pain relief. Today she also inquires about intermittent hand weakness and difficulty with gripping objects. Pain Description: Timing: constant Character: aching, burning Primary Location: axial low back Radiation: Only on occasion she has LEFT posterior thigh, calf, dorsum of the foot Exacerbating factors: squatting and bending Relieving factors: sitting and lying down Interferes with: physical activity, household cleaning, and taking care of her special needs brother The patient denies difficulty with bowel or bladder control, unintentional weight loss, and fevers, chills, or night sweats. Recall: Patient of Dr. Solano Current Status: INTAKE PAIN ASSESSMENT 04/19/2022 05/03/2022 Are you having pain associated with your visit today? No Yes, Provider notified Pain Scales - Verbal (Numeric Rating or Visual Analog Scale) Pain Level - 10 Pain Location - Back-Lower Description - Sharp;Aching;Sore Duration Amount of Time - - Duration Units - Years Frequency - Continuous Intervention/Comfort measure - Reposition;Relaxation;Positioning Comments - - Pain Assessment - - Current Pain Medications: Opioids: NSAIDS: Anti-depressants: Anti-convulsants: Muscle relaxants: Others: RX Clonazepam Analgesia: not adequate Current Anti-Coagulant Use: No PAST Pain Medications (for the chief complaint(s)): Membrane Stabilizers: Maprotiline, Imiprimine, Neurontin (Gabapentin), Lyrica (Pregabalin), Cymbalta (Duloxetine), Effexor (Venlafaxine), and Elavil (Amitriptyline), (reports history of kidney stones) NSAIDS: none - allergy to Ibuprofen Opioids: Tramadol, Vicodin or [place] (Hydrocodone), Percocet (Oxycodone), and Duragesic (Fentanyl Patch) - allergies to everything tried except Fentanyl; Muscle Relaxants: Orphenadrine, Flexeril (Cyclobenzaprine), Lioresal (Baclofen), and Zanaflex (Tizanidine) Topicals: Voltaren Gel, Biofreeze, OTC Other Prescription or OTC Pain Medications: Tylenol (Acetaminophen) Anti-depressants: Imipramine, Klonopin Non-Pain Meds of Note: None Risk Assessment: BENITA-7: BENITA - 7 SCORES 01/16/2017 03/25/2018 12/14/2021 BENITA-7 Score 20 14 21 (0-4) minimal anxiety, (5-9) mild anxiety, (10-14) moderate anxiety, (15-21) severe anxiety PHQ-9: PHQ-9 07/04/2021 10/06/2021 12/14/2021 Score 18 13 13 (0-4) minimal depression, (5-9) mild depression, (10-14) moderate depression, (15-19) moderately severe depression, (20-27) severe depression Compliance: PDMP website checked and validated. All prescriptions have been APPROPRIATELY filled. No suspicious activity was identified. 05/03/2022 by Elia Jacob APRN.BRIM SHAPER Allergies: ALLERGIES Allergen Reactions Aspirin [Salicylate* Swelling, Shortness of Breath wheezing,swelling lips,rash,hives Cefdinir Itching Itchy scaly rash. Codeine Hives Vicodin [Hydrocodon* Hives Demerol [Meperidine* Rash Ambien [Zolpidem] Intolerance Was sleepwalking (arranging books but hull not recall) Bactrim [Sulfametho* uncertain Budesonide Rash Celexa [Citalopram * GI Upset Doxy [Doxycycline] rash and asthma Durezol [Diflupredn* Rash Environmental Aller* Dogs, molds Ibuprofen Shortness of Breath Lexapro [Escitalopr* GI Upset Lyrica [Pregabalin] Mental Status Change dizzy Macrobid [Nitrofura* Diarrhea Maprotiline Itching Monurol [Fosfomycin] Diarrhea Mucomyst [Acetylcys* Cough increase wheezing Oxycodone Shortness of Breath Penicillins rash Prednisone Itching Toradol [Ketorolac * Swelling Tylenol [Acetaminop* Intolerance asthma Ultram [Tramadol Hc* Other: See Comments chest pains Vancomycin Other: See Comments Wheezing after taking, legs swollen and tongue swelling and scratchy neck Venlafaxine GI Upset Zithromax [Azithrom* Itching Mirtazapine Other: See Comments Hand shakes. Data Reviewed: Reviewed personally on today's date 05/03/2022 Relevant Imaging: MRI Spine Report MRI LUMBAR SPINE WO IVCON Exam End: 03/23/2022 8:31 AM (Final result) Narrative: * * *Final Report* * * DATE OF EXAM: Mar 23 2022 8:25AM [facility] 0303 - MRI LUMBAR SPINE WO IVCON / PROCEDURE REASON: multiple diagnoses * * * * Physician Interpretation * * * * EXAMINATION: MRI LUMBAR SPINE WO IVCON CLINICAL HISTORY: Lumbar radiculopathy TECHNIQUE: Routine lumbosacral spine MR protocol without gadolinium. MQ: [id number] COMPARISON: Lumbar spine radiographs 07/14/2020. RESULT: Counting reference: Lumbosacral junction. For the purposes of this report, L4-5 is considered the level of the iliac crest and assume there are 5 lumbar-type vertebrae. Anatomic variant: None. Localizer images: Small T2 hyperintense lesions noted in the bilateral kidneys on the wood fence installer images which are incompletely evaluated, presumably cysts. Additional T2 hyperintense lesions in the pancreas are noted, incompletely evaluated on the wood fence installer images, presumably cysts, seen on remote MRI abdomen from 2015. Alignment: Grade 1 degenerative anterolisthesis of L4-5. Alignment is otherwise anatomic. Bone marrow signal/fracture: No evidence of pathologic marrow infiltration. No evidence of prior fracture. Conus: The conus is within normal limits of signal intensity and morphology. Paraspinal soft tissues: Paraspinal soft tissues are within normal limits. T10-T11 and T11-T12: Visualized lower thoracic canal and foramina are patent. T12-L1: Canal and foramina are patent. L1-L2: Canal and foramina are patent. Disc degeneration with mild diffuse disc bulge noted. L2-L3: Canal and foramina are patent. Disc degeneration with mild diffuse disc bulge noted. Facet arthropathy is noted. L3-L4: There is disc degeneration with diffuse disc bulge and facet arthropathy causing mild canal narrowing, without significant foraminal stenosis. L4-L5: There is disc degeneration with diffuse disc bulge and facet arthropathy causing mild to moderate canal narrowing, without significant foraminal stenosis. L5-S1: Canal and foramina are patent. Facet arthropathy is noted. Sacrum and iliac wings: The visualized sacrum and iliac wings are within normal limits. Impression: IMPRESSION: Lumbar spondylosis as described worst at L4-5 mild to moderate canal narrowing. No significant effacement of the left S1 nerve root at the L5-S1 level or in the left S1-S2 foramina to indicate cause for the patient's left S1 radiculopathy. Anatomic Thoracic/Lumbar Variant: None. L4-5 is considered the level of the iliac crest and assume there are 5 lumbar-type vertebrae. Commodities Requirements Analyst: PSCB Transcribe Date/Time: Mar 23 2022 9:30A Dictated by : DELORIS EARLY MD This examination was interpreted and the report reviewed and electronically signed by: DELORIS EARLY MD on Mar 23 2022 9:36AM EST Recent labs: CMP: Glucose 85 04/10/2022 BUN 13 04/10/2022 Creatinine 1.02 04/10/2022 Sodium 139 04/10/2022 Potassium 4.4 04/10/2022 Chloride 104 04/10/2022 CO2 26 04/10/2022 Protein, Total 6.5 04/10/2022 Albumin 4.1 04/10/2022 Calcium 8.9 04/10/2022 Alkaline Phosphatase 74 04/10/2022 Bilirubin, Total 0.3 04/10/2022 AST 17 04/10/2022 ALT 9 04/10/2022 Pain Procedures: DATE PROCEDURE IMPROVEMENT None to date at this practice Current Medications, Past Medical History, Past Surgical History, Family History, Social History and Review of Systems: On today's date, 05/03/2022, noted above, I have confirmed and edited as necessary, the PFSH and ROS obtained by others. Physical Exam: 05/03/22 0944 Pulse: 94 Resp: 18 SpO2: 98% Constitutional: overweight HEENT: Normal Cephalic, Atraumatic, Non-icteric sclera Eyes: Conjunctiva clear. No discharge from eyes Cardiovascular: Appears well perfused Lymphatic: No visible regional lymphadenopathy Skin: No visible rashes or ecchymosis Psychiatric: Full affect, Alert, Pleasant LUMBAR MUSCULOSKELETAL/NEURO EXAM Inspection: - Symmetric without atrophy Posture: Normal intact spinal curves Gait: Normal, ambulates unassisted Tandem Walk: Intact Palpation: - Lumbar Paraspinal Tenderness: None in the Bilateral lumbar paraspinals - Paraspinal Spasms: None - Facet Loading: Right-positive; Left-positive - Greater Trochanter: None tenderness Bilateral Strength: LEFT RIGHT Iliopsoas (L2) 5 5 Quadriceps (L3) 5 5 Anterior Tibialis (L4): 5 5 Exten Hallucis Longus (L5) 5 5 Gastrocnemius (S1): 5 5 Muscle Tone: - Normal and symmetric Neural Tension Signs: -Straight Leg Exam Negative Bilateral lower limb(s) -Contralateral Straight Leg Raise Negative Bilateral lower limb(s) Sensation: - intact to light touch in the L2-S2 Bilateral lower limb dermatomes Reflexes: LEFT RIGHT Patellar (L4) Decreased 1+ Decreased 1+ Achilles (S1) Decreased 1+ Decreased 1+ Clonus Negative Negative Sacroiliac Maneuvers: - SIJ tenderness: Negative Bilateral Lobito's Signs: Deferred Diagnoses: (M47.817) Lumbosacral spondylosis without myelopathy (primary encounter diagnosis) (M79.7) Fibromyalgia (G89.29) Other chronic pain Impression & Plan: 61 year old female, who presents with complaint(s) of chronic low back pain. Reports her pain is primarily axial in nature, rarely has radicular pain. Reviewed her most recent lumbar MRI and demonstrates mild multilevel disc bulges, facet hypertrophy and degenerative changes throughout, most prominent at L3/4, L4/5 with mild to moderate stenosis L4/5 Her exam is most consistent with facet medicated pain. We discussed potential treatment options including diagnostic Lumbar MBB/RFA. She is willing to try injections. She is also complaining of hand weakness and difficulty with her hand drip. Occasionally has some neck pain, but not particularly today. Chey Jeffers would benefit from the following to decrease pain, improve function and/or work participation, and improve quality of life: Interventional Procedure(s):Diagnostic MBB BL L4/5, L5/S1 x2 (2 weeks apart) with fluoro guidance The risks, benefits, alternative treatment options and prognosis of the procedure were discussed and all of the patient's questions/concerns were addressed to the patient's satisfaction. The patient expressed understanding and gave verbal consent to proceed. Medications: Refill: Requested Prescriptions No prescriptions requested or ordered in this encounter No changes Functional Worship: Offered water therapy or PT she declined Additional Studies: Referrals: Additional: Plan to proceed with lumbar RFA if positive response to MBB Consider EMG/NCT BL UE and neck XR in future Patient is happy and agreeable with this plan. All questions were answered and patient verbalized understanding. Depending on response to the above plan, consider: Follow-up: next available appointment, for injections for evaluation of response to treatment plan and optimization Attribution: In addition to reviewing the information noted above, some elements copied from my most recent clinical note(s), including the physical exam (completed in entirety today), and the impression and plan sections, have been updated where appropriate. All reflect current medical decision making from today's date. Elia Jacob APRN.[facility] Review of Systems Constitutional: Negative for activity change, chills, fever and unexpected weight change. Gastrointestinal: Negative for bowel retention or incontinence Genitourinary: Negative for difficulty urinating. Negative for bladder retention or incontinence Musculoskeletal: Positive for back pain, gait problem, myalgias, neck pain and neck stiffness. Negative for arthralgias and joint swelling. Neurological: Positive for weakness, numbness and headaches (Sinus). Psychiatric/Behavioral: Positive for dysphoric mood and sleep disturbance. Negative for suicidal ideas. The patient is nervous/anxious. documented in this encounter [facility] 04-19-2022 History of Present illness Narrative SUBJECTIVE: There are no preventive care reminders to display for this patient. HPI Chey Jeffers is a 59 year old female. 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 Today reports having symptoms since February. She was seen by Dr. Monzon ear nose and throat doctor and was treated with antibiotics in February and March for sinusitis. Symptoms developed after taking the antibiotic. Notes she has tried [id number] treatments-Monistat. Did not seem to help. ELECTRICIAN REFINERY: No current, status post hysterectomy Dermatology: No current Review of Systems Constitutional: Negative. Skin: Positive for rash. Objective BP 128/74 Pulse 107 Resp 16 Wt 62.6 kg (138 lb) SpO2 98% BMI 26.95 kg/m Physical Exam Vitals and nursing note reviewed. Constitutional: Appearance: Normal appearance. HENT: Head: Normocephalic and atraumatic. Eyes: Conjunctiva/sclera: Conjunctivae normal. Cardiovascular: Rate and Rhythm: Normal rate. Pulmonary: Effort: Pulmonary effort is normal. Skin: General: Skin is warm and dry. Comments: perineal erythema labia to cleft Neurological: Mental Status: She is alert. ALLERGIES Allergen Reactions Aspirin [Salicylate* Swelling, Shortness of Breath wheezing,swelling lips,rash,hives Cefdinir Itching Itchy scaly rash. Codeine Hives Vicodin [Hydrocodon* Hives Demerol [Meperidine* Rash Ambien [Zolpidem] Intolerance Was sleepwalking (arranging books but hull not recall) Bactrim [Sulfametho* uncertain Budesonide Rash Celexa [Citalopram * GI Upset Doxy [Doxycycline] rash and asthma Durezol [Diflupredn* Rash Environmental Aller* Dogs, molds Ibuprofen Shortness of Breath Lexapro [Escitalopr* GI Upset Lyrica [Pregabalin] Mental Status Change dizzy Macrobid [Nitrofura* Diarrhea Maprotiline Itching Monurol [Fosfomycin] Diarrhea Mucomyst [Acetylcys* Cough increase wheezing Oxycodone Shortness of Breath Penicillins rash Prednisone Itching Toradol [Ketorolac * Swelling Tylenol [Acetaminop* Intolerance asthma Ultram [Tramadol Hc* Other: See Comments chest pains Vancomycin Other: See Comments Wheezing after taking, legs swollen and tongue swelling and scratchy neck Venlafaxine GI Upset Zithromax [Azithrom* Itching Mirtazapine Other: See Comments Hand shakes. Medications montelukast (SINGULAIR) 10 mg tablet Take 1 tablet by mouth daily at bedtime. Estradiol (ESTRACE) 0.5 mg tablet Take 1 tablet by mouth once daily. ipratropium bromide (ATROVENT) 42 mcg (0.06 %) nasal spray Use 2 Sprays in the nose three times daily as needed. clonazePAM (KLONOPIN) 0.5 mg tablet Take 1 tablet by mouth twice daily for 180 days. lansoprazole (PREVACID) 30 mg capsule Take 1 capsule by mouth once daily. imipramine HCl (TOFRANIL) 25 mg tablet Take 2 tablets by mouth daily at bedtime. budesonide-formoterol (SYMBICORT) 160-4.5 mcg/actuation inhaler Inhale 2 Puffs as instructed twice daily. albuterol HFA (VENTOLIN HFA) 90 mcg/actuation inhaler Inhale 2 Puffs as instructed every 4 hours as needed for wheezing/shortness of breath. simvastatin (ZOCOR) 40 mg tablet Take 1 tablet by mouth daily at bedtime. sucralfate (CARAFATE) 1 gram tablet Take 1 tablet by mouth before meals and at bedtime. ipratropium-albuterol (DUONEB) 0.5 mg-3 mg(2.5 mg base)/3 mL nebu Inhale 3 mL as instructed every 4 hours as needed. calcium carb/vit D2/minerals (CALTRATE PLUS ORAL) Take 1 capsule by mouth once daily. fluticasone (FLONASE) 50 mcg/actuation nasal spray Use 1 [place] in each nostril twice daily. VIA SPACER THEN RINSE AND GARGLE MOUTH WITH WATER. LOPERAMIDE HCL (IMODIUM ORAL) Take by mouth as needed. fexofenadine (NAN) 180 mg ORAL tablet Take one(1) tablet daily. vit e acetate/gly/dimeth/water(CETAPHIL MOISTURIZING LOTION) apply twice daily nystatin-triamcinolone (MYCOLOG) ointment Apply 1 application to affected area twice daily. Apply sparingly to perineum twice daily for irritation/infection. OK to use u to 25 days, may repeat if needed. For perineal itching fluconazole (DIFLUCAN) 150 mg tablet Take 1 tablet by mouth one time only for 1 dose. Take one tablet. Repeat in 3 days as needed. for perineal itching baclofen (LIORESAL) 20 mg tablet Take 1 tablet by mouth three times daily as needed (muscle spasms). PAST MEDICAL HISTORY Diagnosis Date Abnormal ultrasound of breast 06/17/2013 Acute gastritis Ankylosing spondylitis (HCC) Anxiety and depression 06/12/2005 Bilateral renal cysts 03/11/2015 Calculus of kidney Dysthymic disorder Depression (non-psychotic) Enterocolitis due to Clostridium difficile 01/12/2015 Esophageal reflux HNP (herniated nucleus pulposus), lumbar 08/22/2011 Intrinsic asthma, unspecified 08/05/2008 Irritable bowel syndrome Irritable bowel assisted 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 01/16/2017 Menopause syndrome 01/19/2005 Myalgia and myositis, unspecified Nasal polyposis Polypectomy 03/2017 Dr. Mazariegos [facility]. Pure hypercholesterolemia Serrated adenoma of colon 07/29/2014 Symptomatic menopausal or female climacteric states Unspecified asthma(493.90) Unspecified sinusitis (chronic) 06/21/2008 Social History Tobacco Use Smoking status: Never Smokeless tobacco: Never Tobacco comments: ETS from parents in childhood home. Currently also has some household ETS. 03/17/2018. Vaping Use Vaping Use: Never used Substance Use Topics Alcohol use: Not Currently Drug use: No ASSESSMENT/PLAN: 1. Acute vaginitis - ICD9: 616.10, ICD10: N76.0 Negative urinalysis Monistat OTC did not help. Started after treated for sinusitis with antibiotics per ENT physician x2 starting in February - NYSTATIN-TRIAMCINOLONE 100,000 UNIT/GRAM-0.1 % TOPICAL OINTMENT - CONSULT TO DERMATOLOGY - FLUCONAZOLE 150 MG TABLET Maria Teresa Edwards APRN.CNS Medical Decision Making: Problems: Low: Acute, uncomplicated illness or injury Risk: Moderate: Drug management Medical Decision Making Level: 3 - Low documented in this encounter [facility] 04-18-2022 Miscellaneous Notes Please schedule her on BALJEET Hassan schedule for 8:40 tomorrow morning and let her know once scheduled. Thanks!! documented in this encounter [facility] 04-16-2022 Miscellaneous Notes Addended by: VIVI ACOSTA LPN on: 04/16/2022 01:08 PM Modules accepted: Orders PATIENT NOTIFIED OF SAME. Order placed I recommend she do a urine dip and then we can treat based off of that. Patient call in for urinary frequency since February. Patient had appointment on 04/07/2022, and did not mention this because she as already on antibiotic and patient thought it would throw off testing. Nurse Triage assessment completed with protocol recommending for disposition of see PCP in 24 hours. Care advice reviewed with patient, patient stated understanding. Patient asking if provider wants to order a urine test? Does provider need to see patient again for this? Reason for Disposition Urinating more frequently than usual (i.e., frequency) Answer Assessment - Initial Assessment Questions 1. SYMPTOM: Urinary Frequency 2. ONSET: This has been going on Since February 3. PAIN: Denies Pain 4. CAUSE: What do you think is causing the symptoms? Urinary Tract Infection 5. OTHER SYMPTOMS: Nausea, sometimes burning with urination Protocols used: Urinary [id number] documented in this encounter [facility] 03-28-2022 Miscellaneous Notes Needs med for yeast infection since on antibiotic from Dr. Mazariegos. documented in this encounter [facility] 03-23-2022 History of Present illness Narrative Radiology Service Progress Note PATIENT NAME: Chey Jeffers DATE OF SERVICE: March 23, 2022 TIME: 8:03 AM PATIENT IDENTITY VERIFICATION COMPLETED USING TWO (2) IDENTIFIERS: Name and Date of confirmed by patient verbally. FALL SCREENING: Has the patient had 2 falls in the last year or 1 fall with injury or currently using an Ambulatory Assistive Device (Walker, Cane, Wheelchair, Crutches, etc.)? No PATIENT GENDER DATA: Female. status: : No status: NO. PATIENT RELEVANT IMPLANT DATA REVIEWED: Yes RADIOLOGY DEPARTMENT: MR; Exam(s) Completed: Spine: Lumbar spine PERIPHERAL IV DATA: Not applicable SIGNED BY: RT Lucina(R) March 23, 2022 8:03 AM documented in this encounter [facility] 03-01-2022 Note HNO ID: [id number] Author: Lissette Morley MA Service: ? Author Type: Digital Account Director Type: Progress Notes Filed: 03/01/2022 1:12 PM Note Text: Review of Systems Constitutional: Negative for activity change, chills, fever and unexpected weight change. Gastrointestinal: Negative for bowel retention or incontinence Genitourinary: Negative for difficulty urinating. Negative for bladder retention or incontinence Musculoskeletal: Positive for arthralgias, back pain, gait problem, joint swelling, myalgias, neck pain and neck stiffness. Neurological: Positive for weakness and headaches (Sinus). Negative for numbness. Psychiatric/Behavioral: Positive for dysphoric mood and sleep disturbance. Negative for suicidal ideas. The patient is nervous/anxious. [facility] 03-01-2022 History of Present illness Narrative Review of Systems Constitutional: Negative for activity change, chills, fever and unexpected weight change. Gastrointestinal: Negative for bowel retention or incontinence Genitourinary: Negative for difficulty urinating. Negative for bladder retention or incontinence Musculoskeletal: Positive for arthralgias, back pain, gait problem, joint swelling, myalgias, neck pain and neck stiffness. Neurological: Positive for weakness and headaches (Sinus). Negative for numbness. Psychiatric/Behavioral: Positive for dysphoric mood and sleep disturbance. Negative for suicidal ideas. The patient is nervous/anxious. Images from the original note were not included. [facility] Today's Date: 03/01/2022 Last Visit: 12/14/2021 Name: Chey Jeffers : 1960 Purpose: Follow-up Evaluation Chief complaint: low back pain, diffuse body aches and pains Interval History: Chey Jeffers returns today for a follow-up encounter, reporting that since last encounter, the overall pain and functional disability arising from the chief complaint has worsened. Regarding medications: The following medication(s) were started or modified: none The following medication(s) were discontinued: Fentanyl The following medication(s) were continued: none Overall, the medication(s) have not helped improve pain and ADL's. They are well-tolerated. The following procedures were performed: None (lumbar Medial branch blocks offered, declined) She continues with her Chiropractor, has had 7 visits between 12/04/2021 - 02/06/2022. This has not helped very much. Treatment on hold, had sinus surgery two weeks ago and unable to position prone for adjustments. The following new imaging or diagnostic tests were obtained, with relevant findings reported below: none She continues to have axial low back pain, occasional radicular pain in the left lower limb. She tried Baclofen, made her very dizzy. Notable Events During Course of Treatment: 12/14/2021 - Initial Consult, referred by Yessica Hicks CNP, for low back pain, diffuse body aches and pains This has been present for the past many years. The onset of symptoms was not sudden and was without associated trauma. She has had axial low back pain for many years, constant, aching. Over the past two months, she has had sharp pain radiating into the posterior left thigh, calf and dorsum of the foot. This is new for her. She has had similar symptoms in the right lower limb in the past, but not presently. Pain is worse with squatting and bending. Treatments prior to initial presentation include the following: Medications (See below), Injections (See below), Modalities (eg. Heat, Ice), Chiropractic Full Treatment , Massage, Home Exercise Program , and Activity Modification. She continues to see a Chiropractor regularly. She last had PT in 10/2020. She has been seen previously by Dr. Quintana (2011) and Dr. Corrigan (2020) for pain management, both in Anesthesia Pain. Dr. Corrigan recommended trigger point injections, performed in 07/2020 for the cervical region. Advised ongoing medication management per PCP. Her PCP reported in October that Ms. Jeffers was cutting her Fentanyl patches into quarters in an attempt to wean. She was advised not to cut the patches, but she cut them again, stating I don't know what else to do to wean myself off , she is currently cutting the patch in half. Current Status: INTAKE PAIN ASSESSMENT 01/10/2022 03/01/2022 Are you having pain associated with your visit today? No Yes, Provider notified Pain Scales - Verbal (Numeric Rating or Visual Analog Scale) Pain Level - 9 Pain Location - Neck-Posterior Description - Spasm;Stabbing;Aching;Sharp Duration Amount of Time - - Duration Units - Years Frequency - Continuous Intervention/Comfort measure - Reposition;Relaxation;Positioning Comments - - Pain Assessment - - Pain Description: Timing: constant Character: aching Primary Location: axial low back Radiation: left posterior thigh, calf, dorsum of the foot Exacerbating factors: squatting and bending Relieving factors: sitting and lying down Interferes with: physical activity, household cleaning, and taking care of her special needs brother The patient denies difficulty with bowel or bladder control, unintentional weight loss, and fevers, chills, or night sweats. Medications: CURRENT Pain Medications: Opioid Pain Medications: None Date last filled: N/A Quantity filled: N/A How many left: N/A Time most recent dose taken: N/A Non-Opioid Pain Medications: None Pzaw-[id number] (OTC) Pain Meds: None Compliance: PDMP website checked and validated. All prescriptions have been APPROPRIATELY filled. No suspicious activity was identified. by Ermias Solano MD 03/01/2022 Klonopin 0.5mg #60/mo, last 12/2021 Fentanyl 12mcg/hr, last 12/27/2021 (#10) PCP MS ER 15mg, #14 (01/10/2022) - PCP Last Drug screen: Component Latest Ref Rng & Units 06/16/2020 Phencyclidine Negative Negative Benzodiazepines Urine Negative Preliminary positive. (A) Cocaine Urine Negative Negative Amphetamines Negative Negative Cannabinoids, Urine Negative Negative Opiates Negative Negative Barbiturates Negative Negative Ethanol, Urine <11 mg/dL <11 Oxycodone, Urine Negative Negative Risk Assessment: BENITA-7: BENITA - 7 SCORES 01/16/2017 03/25/2018 12/14/2021 BENITA-7 Score 20 14 21 (0-4) minimal anxiety, (5-9) mild anxiety, (10-14) moderate anxiety, (15-21) severe anxiety PHQ-9: PHQ-9 07/04/2021 10/06/2021 12/14/2021 Score 18 13 13 (0-4) minimal depression, (5-9) mild depression, (10-14) moderate depression, (15-19) moderately severe depression, (20-27) severe depression Opioid Risk Tool: Family History of Substance Abuse: 0 - No Personal History of Substance Abuse: 0 - No Age between 16-45: 0 - No History of Pre-Adolescence Sexual Abuse: 0 - No Psychological Disease: Yes ADD/ADHD/OCD/Bipolar/Schizophrenia : No Depression: 1 - Yes Risk Total: 1 (0-3, low risk or no risk; 4-7, moderate risk, 8+, high risk) Safety Checklist: Are you taking proper precautions to safe guard your medication? Yes Taking the medications as prescribed? Yes Getting pain medications from another physician? No Obtaining pain medication from another source? No Sharing medications with friends/family? No Quality of life improved as a result of taking these medications? Yes Any side effect with this medication? No Justification for Continued Opioid Care: Adequate analgesia? Yes Aberrant drug seeking behavior? No Adverse reactions? No Medications improve quality of life? Yes Pain Medications Taken TO DATE (for the chief complaint(s)): Membrane Stabilizers: Maprotiline, Imiprimine, Neurontin (Gabapentin), Lyrica (Pregabalin), Cymbalta (Duloxetine), Effexor (Venlafaxine), and Elavil (Amitriptyline), (reports history of kidney stones) NSAIDS: none - allergy to Ibuprofen Opioids: Tramadol, Vicodin or [place] (Hydrocodone), Percocet (Oxycodone), and Duragesic (Fentanyl Patch) - allergies to everything tried except Fentanyl; Muscle Relaxants: Orphenadrine, Flexeril (Cyclobenzaprine), Lioresal (Baclofen), and Zanaflex (Tizanidine) Topicals: Voltaren Gel, Biofreeze, OTC Other Prescription or OTC Pain Medications: Tylenol (Acetaminophen) Anti-depressants: Imipramine, Klonopin Non-Pain Meds of Note: None Allergies: ALLERGIES Allergen Reactions Aspirin [Salicylate* Swelling, Shortness of Breath wheezing,swelling lips,rash,hives Cefdinir Itching Itchy scaly rash. Codeine Hives Vicodin [Hydrocodon* Hives Demerol [Meperidine* Rash Bactrim [Sulfametho* uncertain Budesonide Rash Celexa [Citalopram * GI Upset Doxy [Doxycycline] rash and asthma Durezol [Diflupredn* Rash Environmental Aller* Dogs, molds Ibuprofen Shortness of Breath Lexapro [Escitalopr* GI Upset Lyrica [Pregabalin] Mental Status Change dizzy Macrobid [Nitrofura* Diarrhea Maprotiline Itching Monurol [Fosfomycin] Diarrhea Mucomyst [Acetylcys* Cough increase wheezing Oxycodone Shortness of Breath Penicillins rash Prednisone Itching Toradol [Ketorolac * Swelling Tylenol [Acetaminop* Intolerance asthma Ultram [Tramadol Hc* Other: See Comments chest pains Vancomycin Other: See Comments Wheezing after taking, legs swollen and tongue swelling and scratchy neck Venlafaxine GI Upset Zithromax [Azithrom* Itching Mirtazapine Other: See Comments Hand shakes. Diagnostic Studies: Relevant Imaging: Reviewed Personally on today's date, noted above MRI Spine Report No resulted procedures found. X-ray C/L/S spine 07/2020 Spondylosis of the cervical and lumbar spine. Mild motion of C4 on C5 with flexion/extension. No acute osseous abnormality identified involving the sacrum/coccyx. X-ray bilateral hips, 07/2020 Osteoarthrosis of the hips. Electrodiagnostic Study (EMG): None Pain Procedures: DATE PROCEDURE IMPROVEMENT 07/2020 TPI - Lumbar 1 day relief Current Medications, Past Medical History, Past Surgical History, Family History, Social History and Review of Systems: On today's date, noted above, I have confirmed and edited as necessary, the PFSH and ROS obtained by others. Physical Exam: There were no vitals filed for this visit. Constitutional:overweight Eyes: Conjunctiva clear. No discharge from eyes Cardiovascular: Appears well perfused Lymphatic: No visible regional lymphadenopathy Skin: No visible rashes or ecchymosis Psychiatric: Full affect, Alert, Pleasant Neuro-Lower: Neural Tension Signs: Negative slump in Bilateral lower limbs Sensation: intact to light touch in the L2-S2 Bilateral lower limb dermatomes Muscle Tone: Normal and symmetric throughout without clonus Strength: Iliopsoas (L2): 5 Left, 5 Right Quadriceps (L3) 5 Left, 5 Right Anterior Tibialis (L4): 5 Left, 5 Right Extensor Hallucis Longus (L5): 5 Left, 5 Right Gastrocnemius (S1): 5 Left, 5 Right Reflexes: Decreased 1+ and symmetric Patellar, Achilles Musculoskeletal-Lower: Inspection: Symmetric without atrophy, bruising along the lumbosacral junction Palpation: Lumbar Paraspinal Tenderness: Concordant on Bilateral side(s) Paraspinal Spasms: None PSIS Tenderness: None on Bilateral side(s) Greater Trochanter Tenderness: None on Bilateral side(s) Spine Range of Motion: Flexion: Decreased 75% With end range pain Extension: Decreased 75% With end range pain Combination extension and rotation pain: Concordant Hip Range of Motion: Right Hip: Internal Rotation: Normal; Pain at end range: None External Rotation: Normal; Pain at end range: None Left Hip: Internal Rotation: Normal; Pain at end range: None External Rotation: Normal; Pain at end range: None Sacroiliac Maneuvers: Deferred Diagnoses: (M48.061) Spinal stenosis, lumbar region, without neurogenic claudication (primary encounter diagnosis) (M47.817) Lumbosacral spondylosis without myelopathy (M54.16) Lumbar radiculopathy Impression: 61 year old female with significant past medical history for Fibromyalgia, HLD, COPD, GERD, IBS, BENITA, MDD, who presents with complaint(s) of axial low back pain, possible radicular symptoms left S1 dermatomal distribution. No relief with course of Chiropractics. Given her comorbid conditions of BENITA (on a Benzodiazepine), COPD, MDD and Fibromyalgia, she is not an ideal candidate for long-term opioids at higher doses, and the low doses have not offered her relief. Unfortunately, there are very few other medications that she has not already tried, having had intolerance or allergic reactions to the majority of them and no relief with the others Plan: Chey Jeffers would benefit from the following to reach personal goals for decreasing pain, improving function and work participation, and/or improving quality of life: -Interventional Procedure: None The risks, benefits, alternative treatment options and prognosis of the procedure were discussed and all of the patient's questions/concerns were addressed to the patient s satisfaction. Patient was advised that they will need a catering driver for after the procedure and that if no catering driver is available and on site at the time of the procedure, the procedure will be cancelled. For any anticoagulants, the patient was advised on whether to continue or hold for this procedure. The patient expressed understanding and gave verbal consent to proceed. 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 All reflect current medical decision making from today's date. Ermias Solano MD, [facility] documented in this encounter [facility] 03-01-2022 Note HNO ID: [id number] Author: Ermias Solano MD Service: ? Author Type: Physician Type: Progress Notes Filed: 03/01/2022 1:12 PM Note Text: [facility] Today's Date: 03/01/2022 Last Visit: 12/14/2021 Name: Chey Jeffers : 1960 Purpose: Follow-up Evaluation Chief complaint: low back pain, diffuse body aches and pains Interval History: Chey Jeffers returns today for a follow-up encounter, reporting that since last encounter, the overall pain and functional disability arising from the chief complaint has worsened. Regarding medications: The following medication(s) were started or modified: none The following medication(s) were discontinued: Fentanyl The following medication(s) were continued: none Overall, the medication(s) have not helped improve pain and ADL's. They are well-tolerated. The following procedures were performed: None (lumbar Medial branch blocks offered, declined) She continues with her Chiropractor, has had 7 visits between 12/04/2021 - 02/06/2022. This has not helped very much. Treatment on hold, had sinus surgery two weeks ago and unable to position prone for adjustments. The following new imaging or diagnostic tests were obtained, with relevant findings reported below: none She continues to have axial low back pain, occasional radicular pain in the left lower limb. She tried Baclofen, made her very dizzy. Notable Events During Course of Treatment: 12/14/2021 - Initial Consult, referred by Yessica Older BRIM SHAPER, for low back pain, diffuse body aches and pains This has been present for the past many years. The onset of symptoms was not sudden and was without associated trauma. She has had axial low back pain for many years, constant, aching. Over the past two months, she has had sharp pain radiating into the posterior left thigh, calf and dorsum of the foot. This is new for her. She has had similar symptoms in the right lower limb in the past, but not presently. Pain is worse with squatting and bending. Treatments prior to initial presentation include the following: Medications (See below), Injections (See below), Modalities (eg. Heat, Ice), Chiropractic Full Treatment , Massage, Home Exercise Program , and Activity Modification. She continues to see a Chiropractor regularly. She last had PT in 10/2020. She has been seen previously by Dr. Quintana (2011) and Dr. Corrigan (2020) for pain management, both in Anesthesia Pain. Dr. Corrigan recommended trigger point injections, performed in 07/2020 for the cervical region. Advised ongoing medication management per PCP. Her PCP reported in October that Ms. Jeffers was cutting her Fentanyl patches into quarters in an attempt to wean. She was advised not to cut the patches, but she cut them again, stating I don't know what else to do to wean myself off , she is currently cutting the patch in half. Current Status: INTAKE PAIN ASSESSMENT 01/10/2022 03/01/2022 Are you having pain associated with your visit today? No Yes, Provider notified Pain Scales - Verbal (Numeric Rating or Visual Analog Scale) Pain Level - 9 Pain Location - Neck-Posterior Description - Spasm;Stabbing;Aching;Sharp Duration Amount of Time - - Duration Units - Years Frequency - Continuous Intervention/Comfort measure - Reposition;Relaxation;Positioning Comments - - Pain Assessment - - Pain Description: Timing: constant Character: aching Primary Location: axial low back Radiation: left posterior thigh, calf, dorsum of the foot Exacerbating factors: squatting and bending Relieving factors: sitting and lying down Interferes with: physical activity, household cleaning, and taking care of her special needs brother The patient denies difficulty with bowel or bladder control, unintentional weight loss, and fevers, chills, or night sweats. Medications: CURRENT Pain Medications: Opioid Pain Medications: None Date last filled: N/A Quantity filled: N/A How many left: N/A Time most recent dose taken: N/A Non-Opioid Pain Medications: None Mbkq-rvu-vczpohv (OTC) Pain Meds: None Compliance: PDMP website checked and validated. All prescriptions have been APPROPRIATELY filled. No suspicious activity was identified. by Ermias Solano MD 03/01/2022 Klonopin 0.5mg #60/mo, last 12/2021 Fentanyl 12mcg/hr, last 12/27/2021 (#10) PCP [facility] ER 15mg, #14 (01/10/2022) - PCP Last Drug screen: Component Latest Ref Rng AND Units 06/16/2020 Phencyclidine Negative Negative Benzodiazepines Urine Negative Preliminary positive. (A) Cocaine Urine Negative Negative Amphetamines Negative Negative Cannabinoids, Urine Negative Negative Opiates Negative Negative Barbiturates Negative Negative Ethanol, Urine <11 mg/dL <11 Oxycodone, Urine Negative Negative Risk Assessment: BENITA-7: BENITA - 7 SCORES 01/16/2017 03/25/2018 12/14/2021 BENITA-7 Score 20 14 21 (0-4) minimal anxiety, (5-9) mild anxie (more content not included)... [facility] 01-10-2022 Miscellaneous Notes Images from the original note were not included. Electronic PA completed for morphine SR. Prior authorization approved Payer: [employer] [phone] CaseId:[id number];Status:Approved;Re view Type:Prior Auth;Coverage Start Date:12/27/2021;Coverage End Date:01/10/2023; Approval Details Authorized from December 27, 2021 to January 10, 2023 documented in this encounter [facility] 01-10-2022 History of Present illness Narrative This note was created using Myreksriter. Subjective Chey Jeffers is a 61 year old female. She was supposed to switch to Morphine from Fentanyl patch per recommendations from pain management. [facility] somehow did not get the prescription. She was still using 1/2 patch of Fentanyl daily. She had recurring right shoulder pains, stabbing, with no specific triggers. Other symptoms were transient LUQ painful knot with fluttering sensation. She was considered for sinus surgery, nasal polypectomy by Dr. Mazariegos. She's had recurring courses of steroids and antibiotics from ENT. Review of Systems Constitutional: Negative. HENT: Positive for congestion. Respiratory: Negative. Cardiovascular: Negative. Gastrointestinal: Negative. Musculoskeletal: Positive for arthralgias, back pain and myalgias. 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 lansoprazole (PREVACID) 30 mg capsule Take 1 capsule by mouth once daily. imipramine HCl (TOFRANIL) 25 mg tablet Take 2 tablets by mouth daily at bedtime. budesonide-formoterol (SYMBICORT) 160-4.5 mcg/actuation inhaler Inhale 2 Puffs as instructed twice daily. albuterol HFA (VENTOLIN HFA) 90 mcg/actuation inhaler Inhale 2 Puffs as instructed every 4 hours as needed for wheezing/shortness of breath. simvastatin (ZOCOR) 40 mg tablet Take 1 tablet by mouth daily at bedtime. montelukast (SINGULAIR) 10 mg tablet Take 1 tablet by mouth daily at bedtime. Estradiol (ESTRACE) 0.5 mg tablet Take 1 tablet by mouth once daily. sucralfate (CARAFATE) 1 gram tablet Take 1 tablet by mouth before meals and at bedtime. ipratropium bromide (ATROVENT) 42 mcg (0.06 %) nasal spray Use 2 Sprays in the nose three times daily. ipratropium-albuterol (DUONEB) 0.5 mg-3 mg(2.5 mg base)/3 mL nebu Inhale 3 mL as instructed every 4 hours as needed. calcium carb/vit D2/minerals (CALTRATE PLUS ORAL) Take 1 capsule by mouth once daily. fluticasone (FLONASE) 50 mcg/actuation nasal spray Use 1 [place] in each nostril twice daily. VIA SPACER THEN RINSE AND GARGLE MOUTH WITH WATER. LOPERAMIDE HCL (IMODIUM ORAL) Take by mouth as needed. fexofenadine (NAN) 180 mg ORAL tablet Take one(1) tablet daily. vit e acetate/gly/dimeth/water(CETAPHIL MOISTURIZING LOTION) apply twice daily morphine SR (MS CONTIN, ORAMORPH SR) 15 mg 12 hr tablet Take 1 tablet by mouth once daily for 14 days. No current facility-administered medications for this visit. Objective BP 120/84 (BP Site: Right Arm, BP Position: Sitting, BP Cuff Size: Large Adult) Pulse 84 Temp 36.3 C (97.3 F) (Temporal) Resp 20 Wt 62.1 kg (137 lb) BMI 26.76 kg/m Physical Exam Constitutional: General: She is not in acute distress. HENT: Head: Normocephalic. Cardiovascular: Rate and Rhythm: Normal rate and regular rhythm. Pulmonary: Breath sounds: Normal breath sounds. Abdominal: General: There is no distension. Palpations: Abdomen is soft. Tenderness: There is no abdominal tenderness. Musculoskeletal: Right shoulder: Tenderness present. No swelling, deformity or bony tenderness. Decreased range of motion. Left shoulder: Tenderness present. No swelling, deformity or bony tenderness. Decreased range of motion. Cervical back: Neck supple. No tenderness. Right lower leg: No edema. Left lower leg: No edema. Neurological: Mental Status: She is alert. Assessment and Plan 1. Shoulder pain, unspecified chronicity, unspecified laterality - ICD9: 719.41, ICD10: M25.519 (primary diagnosis) - She complained of left posterior shoulder pain but was notably tender multiple areas of her upper and lower back. Consider PT if not better. She's also seeing a chiropractor. - BACLOFEN 20 MG TABLET. Discussed medication dosage, usage, goals of therapy, and side effects. 2. DDD (degenerative disc disease), lumbosacral - ICD9: 722.52, ICD10: M51.37 - MORPHINE ER 15 MG TABLET,EXTENDED RELEASE. Discontinue FENTANYL when Morphine started for last 14 days of opioids. Follow up with pain management. Prescription was resent in her presence. Waiting for Payer Response noted. 3. Fibromyalgia - ICD9: 729.1, ICD10: M79.7 See above. - MORPHINE ER 15 MG TABLET,EXTENDED RELEASE Lew Verduzco MD documented in this encounter [facility] 01-05-2022 Miscellaneous Notes Last seen MONITOR TECH 11/10/21. Nex appt is 01/10/22. Patient has been identified by name and date of : Yes Requested Prescriptions Pending Prescriptions Disp Refills clonazePAM (KLONOPIN) 0.5 mg tablet 60 tablet 5 Sig: Take 1 tablet by mouth twice daily for 180 days. RX INSTRUCTIONS: Patient aware RX will be sent to pharmacy. No need to notify patient. Martine Nuñez Pss documented in this encounter [facility] 12-14-2021 Note HNO ID: [id number] Author: Michelle Gonzalez MA Service: ? Author Type: Digital Account Director Type: Progress Notes Filed: 12/14/2021 12:22 PM Note Text: Review of Systems Constitutional: Positive for chills. Negative for activity change, fever and unexpected weight change. Gastrointestinal: Negative for bowel retention or incontinence Genitourinary: Negative for difficulty urinating. Negative for bladder retention or incontinence Musculoskeletal: Positive for arthralgias, back pain, gait problem, myalgias, neck pain and neck stiffness. Negative for joint swelling. Neurological: Positive for weakness, numbness and headaches. Psychiatric/Behavioral: Positive for dysphoric mood and sleep disturbance. Negative for suicidal ideas. The patient is nervous/anxious. [facility] 12-14-2021 Note HNO ID: [id number] Author: Ermias Solano MD Service: ? Author Type: Physician Type: Progress Notes Filed: 12/14/2021 12:22 PM Note Text: [facility] Today's Date: 12/14/2021 Last Visit: N/A Name: Chey Jeffers : 1960 Purpose: New Patient Consultation Chief complaint: low back pain, diffuse body aches and pains Thank you, Yessica Hicks CNP, for referring Chey Jeffers for evaluation and management options for the chief complaint(s) noted below. Initial HPI: (Obtained on 12/14/2021) Chey Jeffers is a 60 year old female, who presents having been referred by Yessica Hicks CNP, for evaluation and management of the above-mentioned chief complaint. This has been present for the past many years. The onset of symptoms was not sudden and was without associated trauma. She has had axial low back pain for many years, constant, aching. Over the past two months, she has had sharp pain radiating into the posterior left thigh, calf and dorsum of the foot. This is new for her. She has had similar symptoms in the right lower limb in the past, but not presently. Pain is worse with squatting and bending. Treatments prior to initial presentation include the following: Medications (See below), Injections (See below), Modalities (eg. Heat, Ice), Chiropractic Full Treatment , Massage, Home Exercise Program , and Activity Modification. She continues to see a Chiropractor regularly. She last had PT in 10/2020. She has been seen previously by Dr. Quintana (2011) and Dr. Corrigan (2020) for pain management, both in Anesthesia Pain. Dr. Corrigan recommended trigger point injections, performed in 07/2020 for the cervical region. Advised ongoing medication management per PCP. Her PCP reported in October that Ms. Jeffers was cutting her Fentanyl patches into quarters in an attempt to wean. She was advised not to cut the patches, but she cut them again, stating I don't know what else to do to wean myself off , she is currently cutting the patch in half. Pain Description: Timing: constant Character: aching Primary Location: axial low back Radiation: left posterior thigh, calf, dorsum of the foot Exacerbating factors: squatting and bending Relieving factors: sitting and lying down Interferes with: physical activity, household cleaning, and taking care of her special needs brother The patient denies difficulty with bowel or bladder control, unintentional weight loss, and fevers, chills, or night sweats. Current Status: INTAKE PAIN ASSESSMENT 11/23/2021 12/14/2021 Are you having pain associated with your visit today? 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 All prescriptions have been APPROPRIATELY filled. No suspicious activity was identified. by Ermias Solano MD 12/14/2021 Klonopin 0.5mg #60/mo, last 12/2021 Fentanyl 12mcg/hr, last 10/15/2021 Last Drug screen: Component Latest Ref Rng AND Units 06/16/2020 Phencyclidine Negative Negative Benzodiazepines Urine Negative Preliminary positive. (A) Cocaine Urine Negative Negative Amphetamines Negative Negative Cannabinoids, Urine Negative Negative Opiates Negative Negative Barbiturates Negative Negative Ethanol, Urine <11 mg/dL <11 Oxycodone, Urine Negative Negative Risk Assessment: BENITA-7: BENITA - 7 SCORES 01/16/2017 03/25/2018 12/14/2021 BENITA-7 Score 20 14 21 (0-4) minimal anxiety, (5-9) mild anxiety, (10-14) moderate anxiety, (15-21) severe anxiety PHQ-9: PHQ-9 07/04/2021 10/06/2021 12/14/2021 Score 18 13 13 (0-4) minimal depression, (5-9) mild depression, (10-14) moderate depression, (15-19) moderately severe depression, (20-27) severe depression Opioid Risk Tool: Family History of Substance Abuse: 0 - No Personal History of Substance Abuse: 0 - No Age between 16-45: 0 - No History of Pre-Adolescence Sexual Abuse: 0 - No Psychological Disease: Yes ADD/ADHD/OCD/Bipolar/Schizophrenia : No Depression: 1 - Yes Risk Total: 1 (0-3, low risk or no risk; 4-7, moderate risk, 8+, high risk) Safety Checklist: Are you taking proper precautions to safe guard your medication? Yes Taking the medications as prescribed? Yes Getting pain medications from another physician? No Obtaining pain medication from another source? No Sharing medications with friends/family? No Qualit (more content not included)... [facility] 12-14-2021 History of Present illness Narrative Review of Systems Constitutional: Positive for chills. Negative for activity change, fever and unexpected weight change. Gastrointestinal: Negative for bowel retention or incontinence Genitourinary: Negative for difficulty urinating. Negative for bladder retention or incontinence Musculoskeletal: Positive for arthralgias, back pain, gait problem, myalgias, neck pain and neck stiffness. Negative for joint swelling. Neurological: Positive for weakness, numbness and headaches. Psychiatric/Behavioral: Positive for dysphoric mood and sleep disturbance. Negative for suicidal ideas. The patient is nervous/anxious. Images from the original note were not included. [facility] Today's Date: 12/14/2021 Last Visit: N/A Name: Chey Jeffers : 1960 Purpose: New Patient Consultation Chief complaint: low back pain, diffuse body aches and pains Thank you, Yessica Hicks CNP, for referring Chey Jeffers for evaluation and management options for the chief complaint(s) noted below. Initial HPI: (Obtained on 12/14/2021) Chey Jeffers is a 60 year old female, who presents having been referred by Yessica Hicks CNP, for evaluation and management of the above-mentioned chief complaint. This has been present for the past many years. The onset of symptoms was not sudden and was without associated trauma. She has had axial low back pain for many years, constant, aching. Over the past two months, she has had sharp pain radiating into the posterior left thigh, calf and dorsum of the foot. This is new for her. She has had similar symptoms in the right lower limb in the past, but not presently. Pain is worse with squatting and bending. Treatments prior to initial presentation include the following: Medications (See below), Injections (See below), Modalities (eg. Heat, Ice), Chiropractic Full Treatment , Massage, Home Exercise Program , and Activity Modification. She continues to see a Chiropractor regularly. She last had PT in 10/2020. She has been seen previously by Dr. Quintana (2011) and Dr. Corrigan (2020) for pain management, both in Anesthesia Pain. Dr. Corrigan recommended trigger point injections, performed in 07/2020 for the cervical region. Advised ongoing medication management per PCP. Her PCP reported in October that Ms. Jeffers was cutting her Fentanyl patches into quarters in an attempt to wean. She was advised not to cut the patches, but she cut them again, stating I don't know what else to do to wean myself off , she is currently cutting the patch in half. Pain Description: Timing: constant Character: aching Primary Location: axial low back Radiation: left posterior thigh, calf, dorsum of the foot Exacerbating factors: squatting and bending Relieving factors: sitting and lying down Interferes with: physical activity, household cleaning, and taking care of her special needs brother The patient denies difficulty with bowel or bladder control, unintentional weight loss, and fevers, chills, or night sweats. Current Status: INTAKE PAIN ASSESSMENT 11/23/2021 12/14/2021 Are you having pain associated with your visit today? 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 All prescriptions have been APPROPRIATELY filled. No suspicious activity was identified. by Ermias Solano MD 12/14/2021 Klonopin 0.5mg #60/mo, last 12/2021 Fentanyl 12mcg/hr, last 10/15/2021 Last Drug screen: Component Latest Ref Rng & Units 06/16/2020 Phencyclidine Negative Negative Benzodiazepines Urine Negative Preliminary positive. (A) Cocaine Urine Negative Negative Amphetamines Negative Negative Cannabinoids, Urine Negative Negative Opiates Negative Negative Barbiturates Negative Negative Ethanol, Urine <11 mg/dL <11 Oxycodone, Urine Negative Negative Risk Assessment: BENITA-7: BENITA - 7 SCORES 01/16/2017 03/25/2018 12/14/2021 BENITA-7 Score 20 14 21 (0-4) minimal anxiety, (5-9) mild anxiety, (10-14) moderate anxiety, (15-21) severe anxiety PHQ-9: PHQ-9 07/04/2021 10/06/2021 12/14/2021 Score 18 13 13 (0-4) minimal depression, (5-9) mild depression, (10-14) moderate depression, (15-19) moderately severe depression, (20-27) severe depression Opioid Risk Tool: Family History of Substance Abuse: 0 - No Personal History of Substance Abuse: 0 - No Age between 16-45: 0 - No History of Pre-Adolescence Sexual Abuse: 0 - No Psychological Disease: Yes ADD/ADHD/OCD/Bipolar/Schizophrenia : No Depression: 1 - Yes Risk Total: 1 (0-3, low risk or no risk; 4-7, moderate risk, 8+, high risk) Safety Checklist: Are you taking proper precautions to safe guard your medication? Yes Taking the medications as prescribed? Yes Getting pain medications from another physician? No Obtaining pain medication from another source? No Sharing medications with friends/family? No Quality of life improved as a result of taking these medications? Yes Any side effect with this medication? No Justification for Continued Opioid Care: Adequate analgesia? Yes Aberrant drug seeking behavior? No Adverse reactions? No Medications improve quality of life? Yes Pain Medications Taken TO DATE (for the chief complaint(s)): Membrane Stabilizers: Maprotiline, Imiprimine, Neurontin (Gabapentin), Lyrica (Pregabalin), Cymbalta (Duloxetine), Effexor (Venlafaxine), and Elavil (Amitriptyline), (reports history of kidney stones) NSAIDS: none - allergy to Ibuprofen Opioids: Tramadol, Vicodin or [place] (Hydrocodone), Percocet (Oxycodone), and Duragesic (Fentanyl Patch) - allergies to everything tried except Fentanyl; Muscle Relaxants: Orphenadrine, Flexeril (Cyclobenzaprine), and Zanaflex (Tizanidine) Topicals: Voltaren Gel, Biofreeze, OTC Other Prescription or OTC Pain Medications: Tylenol (Acetaminophen) Anti-depressants: Imipramine, Klonopin Non-Pain Meds of Note: None Allergies: ALLERGIES Allergen Reactions Aspirin [Salicylate* Swelling, Shortness of Breath wheezing,swelling lips,rash,hives Cefdinir Itching Itchy scaly rash. Codeine Hives Vicodin [Hydrocodon* Hives Demerol [Meperidine* Rash Bactrim [Sulfametho* uncertain Budesonide Rash Celexa [Citalopram * GI Upset Doxy [Doxycycline] rash and asthma Durezol [Diflupredn* Rash Environmental Aller* Dogs, molds Ibuprofen Shortness of Breath Lexapro [Escitalopr* GI Upset Lyrica [Pregabalin] Mental Status Change dizzy Macrobid [Nitrofura* Diarrhea Maprotiline Itching Monurol [Fosfomycin] Diarrhea Mucomyst [Acetylcys* Cough increase wheezing Oxycodone Shortness of Breath Penicillins rash Prednisone Itching Toradol [Ketorolac * Swelling Tylenol [Acetaminop* Intolerance asthma Ultram [Tramadol Hc* Other: See Comments chest pains Vancomycin Other: See Comments Wheezing after taking, legs swollen and tongue swelling and scratchy neck Venlafaxine GI Upset Zithromax [Azithrom* Itching Mirtazapine Other: See Comments Hand shakes. Diagnostic Studies: Relevant Imaging: Reviewed Personally on today's date, noted above MRI Spine Report No resulted procedures found. X-ray C/L/S spine 07/2020 Spondylosis of the cervical and lumbar spine. Mild motion of C4 on C5 with flexion/extension. No acute osseous abnormality identified involving the sacrum/coccyx. X-ray bilateral hips, 07/2020 Osteoarthrosis of the hips. Electrodiagnostic Study (EMG): None Pain Procedures: DATE PROCEDURE IMPROVEMENT 07/2020 TPI - Lumbar 1 day relief Current Medications, Past Medical History, Past Surgical History, Family History, Social History and Review of Systems: On today's date, noted above, I have confirmed and edited as necessary, the PFSH and ROS obtained by others. Physical Exam: 12/14/21 1101 Pulse: 103 Resp: 16 SpO2: 97% Constitutional:overweight Eyes: Conjunctiva clear. No discharge from eyes Cardiovascular: Appears well perfused Lymphatic: No visible regional lymphadenopathy Skin: No visible rashes or ecchymosis Psychiatric: Full affect, Alert, Pleasant Neuro-Lower: Neural Tension Signs: Negative slump in Bilateral lower limbs Sensation: intact to light touch in the L2-S2 Bilateral lower limb dermatomes Muscle Tone: Normal and symmetric throughout without clonus Strength: Iliopsoas (L2): 5 Left, 5 Right Quadriceps (L3) 5 Left, 5 Right Anterior Tibialis (L4): 5 Left, 5 Right Extensor Hallucis Longus (L5): 5 Left, 5 Right Gastrocnemius (S1): 5 Left, 5 Right Reflexes: Decreased 1+ and symmetric Patellar, Achilles Musculoskeletal-Lower: Inspection: Symmetric without atrophy, bruising along the lumbosacral junction Palpation: Lumbar Paraspinal Tenderness: Concordant on Bilateral side(s) Paraspinal Spasms: None PSIS Tenderness: None on Bilateral side(s) Greater Trochanter Tenderness: None on Bilateral side(s) Spine Range of Motion: Flexion: Decreased 75% With end range pain Extension: Decreased 75% With end range pain Combination extension and rotation pain: Concordant Hip Range of Motion: Right Hip: Internal Rotation: Normal; Pain at end range: None External Rotation: Normal; Pain at end range: None Left Hip: Internal Rotation: Normal; Pain at end range: None External Rotation: Normal; Pain at end range: None Sacroiliac Maneuvers: Deferred Diagnoses: (M47.817) Lumbosacral spondylosis without myelopathy (primary encounter diagnosis) (M48.061) Spinal stenosis, lumbar region, without neurogenic claudication (M54.16) Lumbar radiculopathy Impression: 60 year old female with significant past medical history for Fibromyalgia, HLD, COPD, GERD, IBS, BENITA, MDD, who presents with complaint(s) of axial low back pain, possible radicular symptoms left S1 dermatomal distribution. Plan: Chey Jeffers would benefit from the following to reach personal goals for decreasing pain, improving function and work participation, and/or improving quality of life: -Interventional Procedure: Medial branch blocks bilateral L4-5 and L5-S1 under fluoroscopic guidance x 2, RFA if positive (she declined, stating travel would be difficult and had concerns about cost) The risks, benefits, alternative treatment options and prognosis of the procedure were discussed and all of the patient's questions/concerns were addressed to the patient s satisfaction. Patient was advised that they will need a catering driver for after the procedure and that if no catering driver is available and on site at the time of the procedure, the procedure will be cancelled. For any anticoagulants, the patient was advised on whether to continue or hold for this procedure. The patient expressed understanding and gave verbal consent to proceed. Medication(s): I will send a message to his PCP about weaning the Fentanyl. Given she is only using half a patch per day, which should be approx 15 MME, Morphine ER (which has been tolerated in the past) could be given once daily for 2 weeks, then discontinued. Given her comorbid conditions of BENITA (on a Benzodiazepine), COPD, MDD and Fibromyalgia, she is not an ideal candidate for long-term opioids at higher doses, and the low doses have not offered her relief. 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 All reflect current medical decision making from today's date. Ermias Solano MD, [facility] [place] [facility] documented in this encounter [facility] 11-30-2021 Miscellaneous Notes Patient has been identified by name and date of : Yes Patient phones for refill(s): Pending Prescriptions Disp Refills LANSOPRAZOLE 30 MG CAPSULE,DELAYED RELEASE 90 capsule 3 Sig: Take 1 capsule by mouth once daily. OLIVER: No Date of last office visit in primary care: 11/10/2021 6 month follow-up: 01/10/2022 Last 2 Encounter Wt Readings: Date: Wt: 11/23/2021 61.2 kg (135 lb) 11/10/2021 61.2 kg (135 lb) Previous labs/tests for medication: Not applicable Please advise. Thank you. Veena Herr LPN Patient has been identified by name and date of : Yes Pending Prescriptions Disp Refills LANSOPRAZOLE 30 MG CAPSULE,DELAYED RELEASE 90 capsule 3 Sig: Take 1 capsule by mouth once daily. OLIVER: No RX INSTRUCTIONS: Patient aware RX will be sent to pharmacy. No need to notify patient. Martine Nuñez Pss documented in this encounter [facility] 11-23-2021 History of Present illness Narrative [facility] [place], 11/23/2021: Name: Chey Jeffers : 1960 The patient is here today by herself. HPI: Chey Jeffers is a 60 yo female never smoker with PMH significant for anxiety and depression, GERD, IBS, nasal polyposis, hypercholesterolemia, chronic sinusitis, and asthma. The patient is here for follow up of asthma. Since the last Pulmonary Clinic visit 08/17/2021, the patient admits to compliance with prescribed maintenance Rx: Symbicort and Singulair. There have been no ED visit(s) for the management of asthma exacerbation. No hospitalization(s) for management of asthma exacerbation. Recently treated for sinusitis and asthma exacerbation per PCP with Levaquin 250 mg for 5 days and Prednisone taper. Using rescue bronchodilator more frequently, with some relief. No nocturnal awakenings per month with asthma symptoms. Minimal cough. Occasionally needs to cough secondary to post nasal drip. Frequent wheezing. Exertional dyspnea with the heat and humidity. Reports sinus congestion, pressure and purulent drainage. Post nasal drip and sinus headaches. Has appointment with Dr. Oviedo, [facility], tomorrow. No disruption in taste or voice associated with use of inhaled corticosteroid. No tremor, palpitations, or muscle cramping associated with bronchodilator inhalation. PMH: Updated with patient today. FAMH: Updated with patient today. SOCH: Updated with patient today. ROS: General: Generally feels short of breath and congested. Appetite good. Eyes, Ears, nose, throat: See HPI. Cardiac: No angina, edema, orthopnea. GI: No heartburn, dysphagia. Musculoskeletal: Fibromyalgia, chronic back pain. Neuro: No focal weakness, tremor. Skin: No rash. Otherwise negative. IMMUNIZATIONS Prevnar 13 - xx Pneumovax - 04/08/2006 Influenza - xx COVID-19 - xx Allergies were verified and updated, and medications were reconciled with the patient at this visit. PHYSICAL EXAMINATION: BP (P) 120/78 Pulse (P) 94 Resp (P) 18 Wt 61.2 kg (135 lb) SpO2 (P) 99% BMI 26.37 kg/m Gen: No acute distress. Cooperative with examination. ENT: Nares clear. Oral hygeine good. Pharynx clear. Resp: No stridor, accessory respiratory muscle use. No crackles, wheezes. CV: Regular rythm. Heart tones normal. Radial pulses normal. Abd: Non distended. MSK: No kyphoscoliosis. Ext: Warm and well perfused. No cyanosis. Skin: No rash, eczema, urticaria. Neuro: Mental status normal. No tremor. DATA REVIEW: DATE: 08/17/2021 06/03/2020 04/17/18 01/27/18 FVC 3.16, 116% 2.85, 100% 2.72, 91% 2.64, 89% FEV1 2.06, 95% 1.59, 70% 2.27, 97% 2.14, 92% +9% post BD FEV1/FVC 0.65 0.56 0.83 0.81 Exhaled nitric oxide (Isabella), 08/17/2021: 109 (normal < 20). 12/21/2019: 216 04/17/2018: 150 ASSESSMENT/PLAN: 1. Asthma, moderate persistent, well-controlled - ICD9: 493.90, ICD10: J45.40 (primary diagnosis) Current symptoms consistent with sinusitis. See #2 and 3. Continue Symbicort 2 inhalations twice daily. Rinse mouth after each use to help prevent oral thrush. Albuterol HFA inhaler, 2 inhalations 10 15 minutes prior to activities associated with shortness of breath, and as needed for rescue relief of shortness of breath or wheezing, up to 4 times daily. 2. Allergic rhinitis, unspecified seasonality, unspecified trigger - ICD9: 477.9, ICD10: J30.9 Has appointment with [facility] tomorrow. Continue Atrovent and Flonase nasal spray, Montelukast, OTC Nan. I am not going to treat today secondary to patient having an appointment with ENT tomorrow. Will defer to Dr. Oviedo for further treatment. 3. Chronic sinusitis, unspecified location - ICD9: 473.9, ICD10: J32.9 See #2. I addressed the questions of the patient, and she expressed understanding and acceptance of my answers. Ellen Navarro PA-C documented in this encounter [facility] 11-10-2021 Instructions Yessica Hicks APRN.CNP - 11/10/2021 10:57 AM EDT Stop dicyclomine and resume taking imipramine for anxiety/depression documented in this encounter [facility] 11-10-2021 History of Present illness Narrative CC: Patient presents with: F/U 1 month HPI Chey Jeffers is a 60 year old female who presents today for above. Urinary symptoms x 1 day. Associated symptoms: burning, urgency, frequency and nausea Denies: fever, chills and abdominal pain Treatments: nothing Sinus symptoms x 3 weeks Associated symptoms includes fatigue, nasal congestion, rhinorrhea with dark yellow drainage, facial pain/pressure, headache and ear pressure . Symptoms are staying the same. Depression/anxiety Patient was seen 1 month ago and started on Zoloft 25 mg. She had been on imipramine for years but was discontinued due to interaction with dicyclomine. Patient states she stopped taking Zoloft to side effects of nausea and dizziness. Side effects did stop once she discontinued however started back up again recently. She has been on a few other antidepressants in the past that were stopped due to side effects. Denies SI or HI. She has had counseling but did not work for her and no interest in trying again. 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 Mazariegos [facility]. Pure hypercholesterolemia Serrated adenoma of colon 07/29/2014 Symptomatic menopausal or female climacteric states Unspecified asthma(493.90) Unspecified sinusitis (chronic) 06/21/2008 PAST SURGICAL HISTORY Procedure Laterality Date CHOLECYSTECTOMY 1998 Cholecystectomy COLONOSCOPY 04/07/2018 COLONOSCOPY FLX DX W/COLLJ SPEC WHEN PFRMD 04/24/2001 Colonoscopy COLONOSCOPY FLX DX W/COLLJ SPEC WHEN PFRMD 06/16/2013 Colonoscopy COLONOSCOPY FLX DX W/COLLJ SPEC WHEN PFRMD 03/10/2014 Colonoscopy COLONOSCOPY FLX DX W/COLLJ SPEC WHEN PFRMD 03/10/15 Colonoscopy EGD 04/07/2018 ESOPHAGOGASTRODUODENOSCOPY TRANSORAL DIAGNOSTIC 04/24/2001 EGD ESOPHAGOGASTRODUODENOSCOPY TRANSORAL DIAGNOSTIC 07/11/2009 EGD EXCISION NOSE POLYP(S),SIMPLE 2007 Nasal polypectomy, Dr. Mcclelland LAPS COLECTOMY PRTL W/RMVL TERMINAL ILEUM 07-16-14 PAST SURGICAL HISTORY OF 2013 left breast biopsy- benign SEPTOPLASTY/SUBMUCOUS RESECJ W/WO CARTILAGE GRF 2006 Septoplasty SINUS SURGERY PROCEDURE Bilateral 04/02/2017 [facility]. Dr. Mazariegos. Sinonasal polypectomy, revision maxillary antrostomy, total ethmoidectomy, sphenoidotomy TOTAL ABDOMINAL HYSTERECT W/WO RMVL TUBE OVARY 1993 Hysterectomy, OPAL BSO XCAPSL CTRC RMVL INSJ IO LENS PROSTH W/O ECP 10/10/2013 Cataract Extraction with PC IOL ALLERGIES Aspirin [Salicylates], Cefdinir, Codeine, Vicodin [Hydrocodone-Acetaminophen], Demerol [Meperidine (Pf)], Bactrim [Sulfamethoxazole-Trimethoprim], Budesonide, Celexa [Citalopram Hydrobromide], Doxy [Doxycycline], Durezol [Difluprednate], Environmental Allergies [Other], Ibuprofen, Lexapro [Escitalopram Oxalate], Lyrica [Pregabalin], Macrobid [Nitrofurantoin Monohyd/M-Cryst], Maprotiline, Monurol [Fosfomycin], Mucomyst [Acetylcysteine], Oxycodone, Penicillins, Prednisone, Toradol [Ketorolac Tromethamine], Tylenol [Acetaminophen], Ultram [Tramadol Hcl], Vancomycin, Venlafaxine, Zithromax [Azithromycin], and Mirtazapine MEDICATIONS dicyclomine (BENTYL) 10 mg capsule Take 1 capsule by mouth three times daily. budesonide-formoterol (SYMBICORT) 160-4.5 mcg/actuation inhaler Inhale 2 Puffs as instructed twice daily. albuterol HFA (VENTOLIN HFA) 90 mcg/actuation inhaler Inhale 2 Puffs as instructed every 4 hours as needed for wheezing/shortness of breath. simvastatin (ZOCOR) 40 mg tablet Take 1 tablet by mouth daily at bedtime. montelukast (SINGULAIR) 10 mg tablet Take 1 tablet by mouth daily at bedtime. fentaNYL (DURAGESIC) 12 mcg/hr pt72 Apply 1 Patch as directed every 72 hours for 30 days. Do not start before October 15, 2021. [START ON 11/14/2021] fentaNYL (DURAGESIC) 12 mcg/hr pt72 Apply 1 Patch as directed every 72 hours for 30 days. Do not start before November 14, 2021. [START ON 12/14/2021] fentaNYL (DURAGESIC) 12 mcg/hr pt72 Apply 1 Patch as directed every 72 hours for 30 days. Do not start before December 14, 2021. sertraline (ZOLOFT) 25 mg tablet Take 1 tablet by mouth once daily. fentaNYL (DURAGESIC) 12 mcg/hr pt72 Apply 1 Patch as directed every 72 hours for 30 days. Do not start before August 15, 2021. fentaNYL (DURAGESIC) 12 mcg/hr pt72 Apply 1 Patch as directed every 72 hours for 30 days. Do not start before July 15, 2021. clonazePAM (KLONOPIN) 0.5 mg tablet Take 1 tablet by mouth twice daily for 180 days. Estradiol (ESTRACE) 0.5 mg tablet Take 1 tablet by mouth once daily. sucralfate (CARAFATE) 1 gram tablet Take 1 tablet by mouth before meals and at bedtime. ipratropium bromide (ATROVENT) 42 mcg (0.06 %) nasal spray Use 2 Sprays in the nose three times daily. predniSONE (DELTASONE) 5 mg tablet Take 1 tablet by mouth once daily. 2 tablets daily for 21 days, then 1 tablet daily until re-evaluation. lansoprazole (PREVACID) 30 mg capsule Take 1 capsule by mouth once daily. ipratropium-albuterol (DUONEB) 0.5 mg-3 mg(2.5 mg base)/3 mL nebu Inhale 3 mL as instructed every 4 hours as needed. calcium carb/vit D2/minerals (CALTRATE PLUS ORAL) Take 1 capsule by mouth once daily. fluticasone (FLONASE) 50 mcg/actuation nasal spray Use 1 Marston in each nostril twice daily. VIA SPACER THEN RINSE AND GARGLE MOUTH WITH WATER. LOPERAMIDE HCL (IMODIUM ORAL) Take by mouth as needed. fexofenadine (NAN) 180 mg ORAL tablet Take one(1) tablet daily. vit e acetate/gly/dimeth/water(CETAPHIL MOISTURIZING LOTION) apply twice daily FAMILY HISTORY Problem Relation Age of Onset Emphysema Mother diabetic Heart Mother Blockage and she needs a bypass, but her COPD prevents Emphysema Father Heart Father Cancer Maternal Grandmother lung Colon Cancer Maternal Aunt COPD Maternal Uncle Coronary Artery Disease Paternal Aunt Breast Cancer Other mothers side (cousin) Cancer Maternal Uncle lung Social History Tobacco Use Smoking status: Never Smoker Smokeless tobacco: Never Used Tobacco comment: ETS from parents in childhood home. Currently also has some household ETS. 03/17/2018. Vaping Use Vaping Use: Never used Substance Use Topics Alcohol use: Not Currently Drug use: No PHYSICAL EXAM BP 120/82 Pulse 96 Resp 18 Wt 61.2 kg (135 lb) BMI 26.37 kg/m Appearance: cooperative and pleasant Behavior: poor eye contact and tense Speech: fast, moves quickly from one subject to another Mood: anxious Affect: constricted Eyes: conjunctiva pink and moist, no icterus, sclera white, non-injected Nose/sinus: mucosa erythematous and swollen, sinus tenderness both maxillary and frontal Neck: Neck supple, No adenopathy Oropharynx: soft palate, uvula, and tonsils normal Lungs: Lungs clear to auscultation. No wheezing, rhonchi, rales. Heart: RRR without murmur, gallop, or rubs. No ectopy Abdomen: Abdomen soft, non-tender. Negative CVA tenderness ASSESSMENT/PLAN: 1.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 rules restrict any use of the information to criminally investigate or prosecute any alcohol or drug abuse patient.[facility] HospitalIn the event this information is protected by the Federal Confidentiality of Alcohol and Drug Abuse Patient Records regulations: The Federal rules restrict any use of the information to criminally investigate or prosecute any alcohol or drug abuse patient.[facility] HospitalIn the event this information is protected by the Federal Confidentiality of Alcohol and Drug Abuse Patient Records regulations: The Federal rules restrict any use of the information to criminally investigate or prosecute any alcohol or drug abuse patient.[facility] HospitalIn the event this information is protected by the Federal Confidentiality of Alcohol and Drug Abuse Patient Records regulations: The Federal rules restrict any use of the information to criminally investigate or prosecute any alcohol or drug abuse patient.[facility] HospitalIn the event this information is protected by the Federal Confidentiality of Alcohol and Drug Abuse Patient Records regulations: The Federal rules restrict any use of the information to criminally investigate or prosecute any alcohol or drug abuse patient.[facility] HospitalIn the event this information is protected by the Federal Confidentiality of Alcohol and Drug Abuse Patient Records regulations: The Federal rules restrict any use of the information to criminally investigate or prosecute any alcohol or drug abuse patient.[facility] HospitalIn the event this information is protected by the Federal Confidentiality of Alcohol and Drug Abuse Patient Records regulations: The Federal rules restrict any use of the information to criminally investigate or prosecute any alcohol or drug abuse patient.[facility] HospitalIn the event this information is protected by the Federal Confidentiality of Alcohol and Drug Abuse Patient Records regulations: The Federal rules restrict any use of the information to criminally investigate or prosecute any alcohol or drug abuse patient.[facility] HospitalIn the event this information is protected by the Federal Confidentiality of Alcohol and Drug Abuse Patient Records regulations: The Federal rules restrict any use of the information to criminally investigate or prosecute any alcohol or drug abuse patient.[facility] HospitalIn the event this information is protected by the Federal Confidentiality of Alcohol and Drug Abuse Patient Records regulations: The Federal rules restrict any use of the information to criminally investigate or prosecute any alcohol or drug abuse patient.[facility] HospitalIn the event this information is protected by the Federal Confidentiality of Alcohol and Drug Abuse Patient Records regulations: The Federal rules restrict any use of the information to criminally investigate or prosecute any alcohol or drug abuse patient.[facility] HospitalIn the event this information is protected by the Federal Confidentiality of Alcohol and Drug Abuse Patient Records regulations: The Federal rules restrict any use of the information to criminally investigate or prosecute any alcohol or drug abuse patient.[facility] HospitalIn the event this information is protected by the Federal Confidentiality of Alcohol and Drug Abuse Patient Records regulations: The Federal rules restrict any use of the information to criminally investigate or prosecute any alcohol or drug abuse patient.[facility] HospitalIn the event this information is protected by the Federal Confidentiality of Alcohol and Drug Abuse Patient Records regulations: The Federal rules restrict any use of the information to criminally investigate or prosecute any alcohol or drug abuse patient.[facility] HospitalIn the event this information is protected by the Federal Confidentiality of Alcohol and Drug Abuse Patient Records regulations: The Federal rules restrict any use of the information to criminally investigate or prosecute any alcohol or drug abuse patient.[facility] HospitalIn the event this information is protected by the Federal Confidentiality of Alcohol and Drug Abuse Patient Records regulations: The Federal rules restrict any use of the information to criminally investigate or prosecute any alcohol or drug abuse patient.[facility] HospitalIn the event this information is protected by the Federal Confidentiality of Alcohol and Drug Abuse Patient Records regulations: The Federal rules restrict any use of the information to criminally investigate or prosecute any alcohol or drug abuse patient.[facility] HospitalIn the event this information is protected by the Federal Confidentiality of Alcohol and Drug Abuse Patient Records regulations: The Federal rules restrict any use of the information to criminally investigate or prosecute any alcohol or drug abuse patient.[facility] HospitalIn the event this information is protected by the Federal Confidentiality of Alcohol and Drug Abuse Patient Records regulations: The Federal rules restrict any use of the information to criminally investigate or prosecute any alcohol or drug abuse patient.[facility] HospitalIn the event this information is protected by the Federal Confidentiality of Alcohol and Drug Abuse Patient Records regulations: The Federal rules restrict any use of the information to criminally investigate or prosecute any alcohol or drug abuse patient.[facility] HospitalIn the event this information is protected by the Federal Confidentiality of Alcohol and Drug Abuse Patient Records regulations: The Federal rules restrict any use of the information to criminally investigate or prosecute any alcohol or drug abuse patient.[facility] HospitalIn the event this information is protected by the Federal Confidentiality of Alcohol and Drug Abuse Patient Records regulations: The Federal rules restrict any use of the information to criminally investigate or prosecute any alcohol or drug abuse patient.[facility] HospitalIn the event this information is protected by the Federal Confidentiality of Alcohol and Drug Abuse Patient Records regulations: The Federal rules restrict any use of the information to criminally investigate or prosecute any alcohol or drug abuse patient.[facility] HospitalIn the event this information is protected by the Federal Confidentiality of Alcohol and Drug Abuse Patient Records regulations: The Federal rules restrict any use of the information to criminally investigate or prosecute any alcohol or drug abuse patient.[facility] HospitalIn the event this information is protected by the Federal Confidentiality of Alcohol and Drug Abuse Patient Records regulations: The Federal rules restrict any use of the information to criminally investigate or prosecute any alcohol or drug abuse patient.[facility] HospitalIn the event this information is protected by the Federal Confidentiality of Alcohol and Drug Abuse Patient Records regulations: The Federal rules restrict any use of the information to criminally investigate or prosecute any alcohol or drug abuse patient.[facility] HospitalIn the event this information is protected by the Federal Confidentiality of Alcohol and Drug Abuse Patient Records regulations: The Federal rules restrict any use of the information to criminally investigate or prosecute any alcohol or drug abuse patient.[facility] HospitalIn the event this information is protected by the Federal Confidentiality of Alcohol and Drug Abuse Patient Records regulations: The Federal rules restrict any use of the information to criminally investigate or prosecute any alcohol or drug abuse patient.[facility] Reason for Visit (unrecogniz ed section and content) Specialty Diagnoses / Procedures Referred By Contac t Referred To Contact Allergy Diagnoses Allergic rhinitis, unspecified seasonality, unspecified trigger Procedures CONSULT TO ALLERGY/IMMUNOLOGY OFFICE/OUTPATIENT [facility] 60-74 MINUTES Khanh Antonio MD [address] [phone] Referral ID Status Reason Start Date Expiration Date V isits Requested Visits Authorized [id number] Closed PCP Requested Referral 12/03/2022 12/03/2023 1 1 Reason Comments Referral Request Reason Comments Patient Question Reason Comments Spirometry Specialty Diagnoses / Procedures Referred By Contac t Referred To Contact [facility] Diagnoses Asthma with chronic obstructive pulmonary disease (COPD) ([facility]) Procedures SPIROMETRY BASELINE ONLY SPIROMETRY WO BRONCHODILATOR Ellen Navarro PA-C [address] [place] [address] [facility] [place] [address] [place] [phone] Referral ID Status Reason Start Date Expiration Date V isits Requested Visits Authorized [id number] Closed Auto-Generate d Referral 05/18/2021 06/17/2022 1 1 Specialty Diagnoses / Procedures Referred By Contac t Referred To Contact [facility] Diagnoses Asthma with chronic obstructive pulmonary disease (COPD) ([facility]) Procedures NITRIC OXIDE, EXHALED EXHALED NITRIC OXIDE SPMTRY W/VC EXPIRATORY PATRICA W/WO MXML VOL VNTJ Ellen Navarro PA-C [address] [address] [facility] [place] [address] [place] [address] Referral ID Status Reason Start Date Expiration Date V isits Requested Visits Authorized [id number] Closed Auto-Generate d Referral 08/07/2021 05/05/2022 1 1 Reason Comments Established Patient Asthma Specialty Diagnoses / Procedures Referred By Contac t Referred To Contact Pulmonary and Critical Care Medicine / PULMONARY MEDICINE Diagnoses Asthma with chronic obstructive pulmonary disease (COPD) (HCC) Asthma with chronic obstructive pulmonary disease (COPD) (HCC) [J44.9] Procedures OFFICE/OUTPATIENT ESTABLISHED SF MDM 10-19 MIN OFFICE/OUTPATIENT ESTABLISHED HIGH MDM 40-54 MIN RI EST ASTHMA Yesica Goddard MD [address] [place] [address] Yesica Goddard MD [address] [id number] Referral ID Status Reason Start Date Expiration Date V isits Requested Visits Authorized [id number] Authorized 08/28/2021 11/26/2021 99 99 Reason Comments Insurance Authorization Reason Comments Medication Problem Reason Comments F/U 3 Month Reason Comments Appointment Reason Onset Date Comments Refill Request 10/13/2021 Reason Onset Date Comments Refill Request 10/30/2021 Reason Onset Date Comments Refill Request 10/31/2021 Reason Onset Date Comments Refill Request 11/07/2021 Reason Comments F/U 1 month Reason Comments Established Patient 3 month asthma follo w up Specialty Diagnoses / Procedures Referred By Contac t Referred To Contact Pulmonary and Critical Care Medicine / PULMONARY MEDICINE Diagnoses 3 month F/U Asthma Procedures RI EST ASTHMA Lew Verduzco MD [address] [place] [address] Ellen Navarro PA-C [address] [address] Referral ID Status Reason Start Date Expiration Date V isits Requested Visits Authorized [id number] Authorized 11/12/2021 05/05/2022 10 10 Reason Onset Date Comments Refill Request 11/30/2021 Specialty Diagnoses / Procedures Referred By Contac t Referred To Contact Pain Management / PAIN MANAGEMENT Diagnoses New patient - Fibromyalgia/Digenerat josé miguel disc disease/Lower back pain/Referred by Older (BC) Procedures OFFICE/OUTPATIENT NEW MODERATE MDM 45-59 MINUTES NEW PATIENT MD Russ Martinez Kermit, MD [address] [place] [address] Referral ID Status Reason Start Date Expiration Date Visits Re quested Visits Authorized [id number] Closed 05/06/2021 05/05/2022 1 1 Reason Onset Date Comments Refill Request 01/05/2022 Reason Comments F/U 6 months Reason Comments Follow Up Specialty Diagnoses / Procedures Referred By Contac t Referred To Contact Pain Management / PAIN MANAGEMENT Diagnoses 2 month followup Procedures OFFICE/OUTPATIENT ESTABLISHED MOD MDM 30-39 MIN EST PATIENT Ermias Solano MD [address] [place] [address] Ermias Solano MD [address] [place] [address] Referral ID Status Reason Start Date Expiration Date Visits Re quested Visits Authorized [id number] Closed 05/06/2021 05/05/2022 1 1 Reason Comments Urinary Frequency Reason Comments Itching Adry area - from fro nt to back Reason Comments Follow Up Low Back Pain Neck Pain Specialty Diagnoses / Procedures Referred By Contac t Referred To Contact Pain Management / PAIN MANAGEMENT Diagnoses 2 months follow up Procedures EST PATIENT Ermias Solano MD [address] [place] [address] Elia Jacob, 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 [address] [place] [address] Referral ID Status Reason Start Date Expiration Date Visits Re quested Visits Authorized [id number] Closed 05/06/2021 05/05/2022 1 1 Specialty Diagnoses / Procedures Referred By Contac t Referred To Contact [facility] Diagnoses Asthma, moderate persistent, well-controlled Procedures SPIROMETRY BASELINE ONLY SPMTRY W/VC EXPIRATORY PATRICA W/WO MXML VOL VNTJ Ellen Navarro, PANiharika [address] [place] [address] [address] Referral ID Status Reason Start Date Expiration Date V isits Requested Visits Authorized [id number] Closed Auto-Generate d Referral 04/13/2022 07/07/2022 1 1 Specialty Diagnoses / Procedures Referred By Contac t Referred To Contact [facility] Diagnoses Asthma, moderate persistent, well-controlled Chronic sinusitis, unspecified location Procedures NITRIC OXIDE, EXHALED NITRIC OXIDE GAS DETERMINATION Ellen Navarro PA-C [address] [facility] [place] [id number] Respiratory [address] [address] Referral ID Status Reason Start Date Expiration Date V isits Requested Visits Authorized [id number] Closed Auto-Generate d Referral 04/13/2022 07/07/2022 1 1 Reason Comments Recheck COPD Asthma Specialty Diagnoses / Procedures Referred By Contac t Referred To Contact Pulmonary and Critical Care Medicine / PULMONARY MEDICINE Diagnoses FOLLOW UP ASTHMA AND COPD - PATIENT OF DR GODDARD Procedures RI EST ASTHMA Mary Lou Nicholson MD [address] [place] [address] Mary Lou Nicholson MD [address] [facility] [place] [address] Referral ID Status Reason Start Date Expiration Date Visits Re quested Visits Authorized [id number] Closed 04/27/2022 06/26/2022 1 1 Reason Onset Date Comments Refill Request 07/06/2022 Refill Request 07/11/2022 Reason Onset Date Comments Opened In Error 07/16/2022 opened in error Reason Onset Date Comments Refill Request 07/16/2022 nebulizer Refill Request 07/16/2022 Reason Comments Established Patient Elevated skin lesion on right upper leg since 10/2021 Reason Onset Date Comments Refill Request 11/19/2022 Reason Comments Asthma Specialty Diagnoses / Procedures Referred By Contac t Referred To Contact Pulmonary and Critical Care Medicine / PULMONARY MEDICINE Diagnoses Chronic obstructive pulmonary disease, unspecified 6 MTH F/U ASTHMA / PERI Procedures OFFICE/OUTPATIENT NEW HIGH MDM 60-74 MINUTES RI EST ASTHMA Ellen Navarro PA-C [address] [place] [address] Ellen Navarro PA-C [address] [facility] [place] [address] Referral ID Status Reason Start Date Expiration Date V isits Requested Visits Authorized [id number] Authorized 05/06/2022 05/05/2023 2 2 Reason Comments Medication Follow-up Reason Comments new onset rash Reason Comments Rash Was given ATB for si nus infection after telling provider she was allergic, covered form head to toe in rash and getting worse x2 days Reason Comments Allergic Reaction Vaginal Problem Specialty Diagnoses / Procedures Referred By Contac t Referred To Contact [facility] Diagnoses Lumbar radiculopathy Spinal stenosis of lumbar region without neurogenic claudication Procedures MRI LUMBAR SPINE WO IVCON MRI SPINAL CANAL LUMBAR W/O CONTRAST MATERIAL Ermias Solano MD [address] [place] [address] [place] [address] Referral ID Status Reason Start Date Expiration Date V isits Requested Visits Authorized [id number] Closed Auto-Generate d Referral 03/09/2022 05/05/2022 1 1 Reason Comments F/U 6 months Care Teams (unrecognized sec tion and content) Umbrella Tipper Hand Relationship Specialty Start Date End Date Lew Verduzco MD [address] [place] [address] PCP - General Internal Medicine 06/13/16 Umbrella Tipper Hand Relationship Specialty Start Date End Date Lew Verduzco MD [address] [place], [place] [id number] PCP - General Internal Medicine 06/13/16 Umbrella Tipper Hand Relationship Specialty Start Date End Date Lew Verduzco MD [address] [place], [place] [address] PCP - General Internal Medicine 06/13/16 Umbrella Tipper Hand Relationship Specialty Start Date End Date Lew Verduzco MD [address] [place] [address] PCP - General Internal Medicine 06/13/16 Umbrella Tipper Hand Relationship Specialty Start Date End Date Lew Verduzco MD [address] [place] [address] PCP - General Internal Medicine 06/13/16 Umbrella Tipper Hand Relationship Specialty Start Date End Date Lew Verduzco MD [address] [place] [address] PCP - General Internal Medicine 06/13/16 Umbrella Tipper Hand Relationship Specialty Start Date End Date Lew Verduzco MD [address] [place] [address] PCP - General Internal Medicine 06/13/16 Umbrella Tipper Hand Relationship Specialty Start Date End Date Lew Verduzco MD [address] [place] [address] PCP - General Internal Medicine 06/13/16 Umbrella Tipper Hand Relationship Specialty Start Date End Date Lew Verduzco MD [address] [place] [address] PCP - General Internal Medicine 06/13/16 Umbrella Tipper Hand Relationship Specialty Start Date End Date Lew Verduzco MD [address] [place] [address] PCP - General Internal Medicine 06/13/16 Umbrella Tipper Hand Relationship Specialty Start Date End Date Lew Verduzco MD [address] [place] [address] PCP - General Internal Medicine 06/13/16 Umbrella Tipper Hand Relationship Specialty Start Date End Date Lew Verduzco MD [address] [place] [address] PCP - General Internal Medicine 06/13/16 Umbrella Tipper Hand Relationship Specialty Start Date End Date Lew Verduzco MD [address] [place] [address] PCP - General Internal Medicine 06/13/16 Umbrella Tipper Hand Relationship Specialty Start Date End Date Lew Verduzco MD [address] [place] [address] PCP - General Internal Medicine 06/13/16 Umbrella Tipper Hand Relationship Specialty Start Date End Date Lew Verduzco MD [address] [place] [address] PCP - General Internal Medicine 06/13/16 Umbrella Tipper Hand Relationship Specialty Start Date End Date Lew Verduzco MD [address] [place] [address] PCP - General Internal Medicine 06/13/16 Umbrella Tipper Hand Relationship Specialty Start Date End Date Lew Verduzco MD [address] [place] [address] PCP - General Internal Medicine 06/13/16 Umbrella Tipper Hand Relationship Specialty Start Date End Date Lew Verduzco MD [address] [place] [address] PCP - General Internal Medicine 06/13/16 Umbrella Tipper Hand Relationship Specialty Start Date End Date Lew Verduzco MD [address] [place] [address] PCP - General Internal Medicine 06/13/16 Umbrella Tipper Hand Relationship Specialty Start Date End Date Lew Verduzco MD [address] [place] [address] PCP - General Internal Medicine 06/13/16 Umbrella Tipper Hand Relationship Specialty Start Date End Date Lew Verduzco MD [address] [place] [address] PCP - General Internal Medicine 06/13/16 Umbrella Tipper Hand Relationship Specialty Start Date End Date Lew Verduzco MD [facility] [place] [address] PCP - General Internal Medicine 06/13/16 Umbrella Tipper Hand Relationship Specialty Start Date End Date Edda Oconnor MD [address] [place] [address], [place] [address] PCP - General Internal Medicine 04/07/22 Umbrella Tipper Hand Relationship Specialty Start Date End Date Edda Oconnor MD [address] [place] [address], [place] [address] PCP - General Internal Medicine 04/07/22 Umbrella Tipper Hand Relationship Specialty Start Date End Date Edda Oconnor MD [address] [place] [address], [place] [address] PCP - General Internal Medicine 04/07/22 Umbrella Tipper Hand Relationship Specialty Start Date End Date Edda Oconnor MD [address] [place] [address], [place] [address] PCP - General Internal Medicine 04/07/22 Umbrella Tipper Hand Relationship Specialty Start Date End Date Edda Oconnor MD [address] [place] [address], [place] [address] PCP - General Internal Medicine 04/07/22 Umbrella Tipper Hand Relationship Specialty Start Date End Date Edda Oconnor MD [address] [place] [address], [place] [address] PCP - General Internal Medicine 04/07/22 Umbrella Tipper Hand Relationship Specialty Start Date End Date Edda Oconnor MD [address] [place] [address] [place] [address] PCP - General Internal Medicine 04/07/22 Umbrella Tipper Hand Relationship Specialty Start Date End Date Edda Oconnor MD [address] [place] [address] PCP - General Internal Medicine 04/07/22 Umbrella Tipper Hand Relationship Specialty Start Date End Date Edda Oconnor MD [address] [place] [address] PCP - General Internal Medicine 04/07/22 Umbrella Tipper Hand Relationship Specialty Start Date End Date Edda Oconnor MD [address] [place] [address] PCP - General Internal Medicine 04/07/22 Umbrella Tipper Hand Relationship Specialty Start Date End Date Edda Oconnor MD [address] [place] [address] PCP - General Internal Medicine 04/07/22 Umbrella Tipper Hand Relationship Specialty Start Date End Date Edda Oconnor MD [address] [place] [address] PCP - General Internal Medicine 04/07/22 Umbrella Tipper Hand Relationship Specialty Start Date End Date Edda Oconnor MD [address] [place] [address] PCP - General Internal Medicine 04/07/22 Umbrella Tipper Hand Relationship Specialty Start Date End Date Edda Oconnor MD [address] [place] [address] PCP - General Internal Medicine 04/07/22 Umbrella Tipper Hand Relationship Specialty Start Date End Date Edda Oconnor MD [address] [place] [address] PCP - General Internal Medicine 04/07/22 Umbrella Tipper Hand Relationship Specialty Start Date End Date Edda Oconnor MD [address] [place] [address] PCP - General Internal Medicine 04/07/22 Umbrella Tipper Hand Relationship Specialty Start Date End Date Edda Oconnor MD [address] [place] [address] PCP - General Internal Medicine 04/07/22 Umbrella Tipper Hand Relationship Specialty Start Date End Date Edda Oconnor MD [address] [place] [address] PCP - General Internal Medicine 04/07/22 Umbrella Tipper Hand Relationship Specialty Start Date End Date Edda Oconnor MD [address] [place] [address] PCP - General Internal Medicine 04/07/22 Umbrella Tipper Hand Relationship Specialty Start Date End Date Lew Verduzco MD [address] [place] [address] PCP - General Internal Medicine 06/13/16 04/06/22 Umbrella Tipper Hand Relationship Specialty Start Date End Date Edda Oconnor MD [address] [place] [address] PCP - General Internal Medicine 04/07/22 Umbrella Tipper Hand Relationship Specialty Start Date End Date Edda Oconnor MD [address] [place] [address] PCP - General Internal Medicine 04/07/22 FOR RECORDS PERTAINING TO PATIENTS WHO ARE OR HAVE BEEN ENROLLED IN A CHEMICAL DEPENDENCY/SUBSTANCEABUSE PROGRAM, SOME INFORMATION MAY BE OMITTED. This clinical summary was aggregated from multiple sources. Caution should be exercised in using it in the provision of clinical care. This summary normalizes information from multiple sources, and as a consequence, information in this document may materially change the coding, format and clinical context of patient data. In addition, data may be omitted in some cases. CLINICAL DECISIONS SHOULD BE BASED ON THE PRIMARY CLINICAL RECORDS. The [employer] [facility]. provides no warranty or guarantee of the accuracy or completeness of information in this document.
== END | disposition home or self-care (01) ==
LOC: LABSPEC 15:11
PROVIDERS: PCP Internal Medicine; Referring Provider Otolaryngology; Visit Provider Otolaryngology
DX: J32.8 Other chronic sinusitis (principal)
CPT/HCPCS: 87070; 87077; 87186; 87205

== ENCOUNTER 2024-04-04 09:31 | Emergency (ER) | payer MEDICARE, SELFPAY ==
[2024-04-04 09:32] VITALS: BP 115/54; PULSE 114; RESP 19; TEMP 35.7; O2SAT 98; BMI 27.8
--- NOTE | 2024-04-04 09:40 | ED.RN ---
PT HAS BEEN DEALING WITH BACK ISSUES FOR MONTHS. PT SEES A PAIN DR. SHE CARES FOR HER SPECIAL NEEDS BROTHER AND BENDING, STANDING, AND MOVING HAS BEEN REALLY DIFFICULT. C/O PAIN ON THE LEFT SIDE BACK, GOES DOWN HER L-LEG, PAIN IN HER GROIN AREA, AND SOMETIMES TINGLES IN THE LEG AND FOOT.
--- NOTE | 2024-04-04 09:53 | EDS_ITS ---
HPI History of Present Illness Chief Complaint: Back Detail of Chief Complaint: Back pain Informant: patient Narrative Narrative: Patient presents with back pain x 3 months. She describes low back pain radiating to her left groin and down her left leg at times. She bent over to pick some cards up off the floor 3 days ago and had electric-like shooting pains down her left leg and her foot went numb. She denies weakness to the extremit ies. She does complain of worsening pain with certain movements. She has history of an MRI several years ago that showed degenerative disc disease as well as spinal stenosis and herniated disc. She had been seeing pain management. She was recently referred to a new pain management doctor but has not seen a primary care physician. She states that she cannot take anything for pain because she is allergic to everything. She has had Medrol Dosepak in the past. She denies loss of bowel or bladder function. Denies trauma or direct injury otherwise. [facility] Medical History (Updated 04/04/24 @ 09:[address] Nory Coker, ) History of stress test History of deviated nasal septum Wears dentures History of steroid therapy Arthritis Bladder disease High cholesterol History of IBS Non-smoker Shortness of breath on exertion COPD (chronic obstructive pulmonary disease) Asthma Migraine Degenerative disc disease Fibromyalgia Depression Anxiety Home Medications ?Medication ?Instructions ?Recorded ?Last Taken ?Type albuterol sulfate 90 mcg/actuation 1 - 2 puff IH Q4H PRN PRN Asthma 07/09/14 04/07/18 08:00 History aerosol inhaler (Ventolin HFA) clonazepam 0.5 mg tablet 0.5 mg PO BID ANXIETY 07/09/14 02/13/22 07:00 History estradiol 0.5 mg tablet (Estrace) 0.5 mg PO QHS HORMONE 07/09/14 08/07/16 History fluticasone propionate 50 1 spray DAILY PRN PRN Allergies 07/09/14 Unknown History mcg/actuation nasal spray,suspension lansoprazole 30 mg capsule,delayed 30 mg PO DAILY , 07/09/14 02/13/22 07:00 History release (Prevacid) simvastatin 40 mg tablet 40 mg PO QHS CHOLESTEROL 07/09/14 08/07/16 History loperamide 2 mg capsule 2 mg PO Q6H PRN PRN Diarrhea ##20 07/22/14 08/09/16 Rx fexofenadine 180 mg tablet 180 mg PO QHS . 03/26/17 Unknown History (Nan Allergy) imipramine HCl 50 mg tablet 50 mg PO QHS depression 01/07/18 Unknown History budesonide-formoterol HFA 160 2 puff inhalation BID 04/04/18 04/07/18 08:00 History mcg-4.5 mcg/actuation aerosol inhaler (Symbicort) calcium 200 mg (as 1 ea PO DAILY 04/04/18 Unknown History citrate)-vitamin D3 6.25 mcg (250 unit) tablet (Citracal-D3 Petites) ipratropium 0.5 mg-albuterol 3 mg 3 ml inhalation Q4H PRN BREATHING 04/04/18 Unknown History (2.5 mg base)/3 mL nebulization soln sucralfate 1 gram tablet 1 g PO BID 04/04/18 Unknown History montelukast 10 mg tablet 10 mg PO DAILY 02/06/22 Unknown History (Singulair) diazepam 5 mg tablet (Valium) 5 mg PO TID PRN muscle spasm 3 04/04/24 Unknown Rx days #10 tabs methylprednisolone 4 mg tablets in See Rx Instructions PO .COMPLEX 04/04/24 Unknown Rx a dose pack (Medrol (Shaka)) #21 tabs Allergy/AdvReac Type Severity Reaction Status Date / Time aspirin Allergy Severe Anaphylaxis Verified 04/04/24 09:41 acetaminophen (From Vicodin) Allergy MAKES MY Verified 04/04/24 09:41 CHEST HURT azithromycin (From Zithromax) Allergy Itching Verified 04/04/24 09:41 budesonide Allergy Rash Verified 04/04/24 09:41 ciprofloxacin (From Cipro) Allergy Hives Verified 04/04/24 09:41 codeine Allergy Hives Verified 04/04/24 09:41 difluprednate (From Durezol) Allergy Rash Verified 04/04/24 09:41 doxycycline Allergy Rash Verified 04/04/24 09:41 hydrocodone bitartrate (From Allergy Hives Verified 04/04/24 09:41 Vicodin) ibuprofen (From Motrin) Allergy Shortness Verified 04/04/24 09:41 of breath ketorolac tromethamine (From Allergy Swelling Verified 04/04/24 09:41 Toradol) maprotiline Allergy Itching Verified 04/04/24 09:41 meperidine HCl (From Demerol) Allergy Rash Verified 04/04/24 09:41 mirtazapine Allergy Other Verified 04/04/24 09:41 Penicillins Allergy Rash Verified 04/04/24 09:41 prednisone Allergy Itching Verified 04/04/24 09:41 tramadol HCl (From Ultram) Allergy Chest Verified 04/04/24 09:41 tightness vancomycin Allergy Swelling Verified 04/04/24 09:41 acetylcysteine (From AdvReac ITCHING, Verified 04/04/24 09:41 Mucomyst) REDNESS citalopram hydrobromide AdvReac Nausea/Vom/ Verified 04/04/24 09:41 (From Celexa) Diarrhea escitalopram oxalate (From AdvReac Nausea/Vom/ Verified 04/04/24 09:41 Lexapro) Diarrhea nitrofurantoin (From AdvReac Diarrhea Verified 04/04/24 09:41 Macrobid) nitrofurantoin AdvReac Diarrhea Verified 04/04/24 09:41 macrocrystalline (From Macrobid) oxycodone AdvReac Hives Verified 04/04/24 09:41 pregabalin (From Lyrica) AdvReac Swelling Verified 04/04/24 09:41 sulfamethoxazole (From AdvReac Other Verified 04/04/24 09:41 Bactrim) trimethoprim (From Bactrim) AdvReac Unknown Verified 04/04/24 09:41 venlafaxine HCl (From AdvReac Nausea/Vom/ Verified 04/04/24 09:41 Effexor) Diarrhea Surgical History History of hysterectomy History of cholecystectomy History of nasal surgery Social History Smoking Status: Never smoker ROS ROS ED Review of Systems ROS Unobtainable: other Constitutional Constitutional ED: Reports lethargy; Denies chills, fever(s), sweats or weight loss Eyes Eyes: Denies blurry vision, change in vision or diplopia ENT ENT ED: Denies rhinorrhea or sore throat Cardiovascular Cardiovascular: Denies chest pain, orthopnea or racing heartbeat Respiratory/Chest Respiratory/Chest: Denies cough, dyspnea, dyspnea on exertion, orthopnea or sputum Gastrointestinal Gastrointestinal: Denies abdominal pain, diarrhea, nausea or vomiting Genitourinary Genitourinary ED: Denies dysuria, hematuria or urinary frequency Musculoskeletal Musculoskeletal: Reports back pain; Denies arthralgias, myalgias or neck pain Integumentary Denies abscess, Abrasions or rash Neurologic Neurologic: Reports paresthesias; Denies headache(s) or weakness Psychiatric Psychiatric: Denies anxiety, depression or suicidal thoughts Endocrine Endocrinology: Denies polydipsia, polyphagia or polyuria Hematologic/Lymphatic Hematologic/Lymphatic: Denies easy bleeding, easy bruising or lymphadenopathy Allergic/Immunologic Allergic/Immunologic ED: Denies mouth swelling, tongue swelling or urticaria EXAM Physical Exam Const Vital Signs: 04/04/24 09:32 Temperature 96.3 F L Temperature Source Temporal Pulse Rate 114 H Respiratory Rate 19 H Blood Pressure 115/54 L Blood Pressure Mean 74 Pulse Ox 98 Oxygen Delivery Method Room Air Positive well nourished and well developed General Appearance ED: well developed and NAD HEENT Reports TM's clear and moist mucous membranes normocephalic and atraumatic; Negative for trauma or tenderness Tympanic Membrane ED: Yes TM's clear Eyes PERRL and EOMs intact bilaterally General Eye ED: Negative for pale conjunctiva or scleral icterus Neck no lymphadenopathy, supple and no JVD General: Negative for tenderness Chest Wall inspection of chest normal and palpation of chest normal Chest: Negative for tenderness Resp normal respiratory effort and clear to auscultation bilaterally Effort and Inspection: Negative for respiratory distress or pain with movement Auscultation: Negative for rhonchi, wheezes or diminished lung sounds Cardio regular rate, regular rhythm, S1 normal heart sound, S2 normal heart sound and no murmurs Peripheral Pulses: pulses 2+ throughout GI normal to inspection, nondistended, normoactive bowel sounds, soft to palpation, non-tender, non-distended and no masses Back/Spine no CVA tenderness and no thoracic nor lumbar tenderness Back/Spine Narrative: Evaluation of patient's back reveals no evidence of erythema or warmth or rash. Difficult to reproduce her pain with palpation of the back and she has no real tenderness over the thoracic or lumbar spine. She does have a positive straight leg raise while supine at about 45 degrees on the left. Deep tendon reflexes plus 1 out of 4 bilaterally at the patella and Achilles normal L5 extension bilaterally. She has normal sensation to light touch bilaterally. Extremity normal to inspection General Extremety ED: Negative for edema General Extremity: Negative for edema Neuro oriented x3, CN's II-XII intact bilaterally, no sensory deficits noted and gait normal Sensorium / Orientation: awake, alert, oriented to person, oriented to place and oriented to time Motor Exam: strength 5/5 throughout and strength abnormal Psych mental status grossly normal Skin no rashes or lesions noted and no wounds MDM MDM MDM Narrative Medical decision making narrative: Patient presents with back pain x 3 months consistent with sciatic type pain. No red flag signs or symptoms of cauda equina. I do not believe she requires an emergent MRI. She literally tells me she is allergic to every pain medication available. I will start her on a Medrol Dosepak and will use Valium for spasm. Will refer to back specialist Dr. Friedman for follow-up and she is advised to follow-up with pain management as well. She may require imaging as an outpatient such as an MRI to evaluate further. Discharge Plan Triage Chief Complaint: Back ED Provider: Nory Coker Dx/Rx/DC Orders Clinical Impression: Back pain, Sciatica Instructions: ED Back Pain (Acute or Chronic), ED Sciatica Prescriptions: New methylprednisolone [Medrol (Shaka)] 4 mg tablets,dose pack See Rx Instructions .ROUTE .COMPLEX Qty: 21 0RF Rx Instructions: orally per package directions diazepam [Valium] 5 mg tablet 5 mg PO TID PRN (Reason: muscle spasm) 3 Days Qty: 10 0RF No Action clonazepam 0.5 MG tablet 0.5 mg PO BID Patient Comments: anxiety simvastatin 40 MG tablet 40 mg PO QHS Patient Comments: cholesterol lansoprazole [Prevacid] 30 MG capsule 30 mg PO DAILY Patient Comments: gerd estradiol [Estrace] 0.5 MG tablet 0.5 mg PO QHS Patient Comments: hormone albuterol sulfate [Ventolin HFA] 18 GM HFA aerosol inhaler 1 - 2 puff IH Q4H PRN PRN (Reason: Asthma) Patient Comments: asthma fluticasone propionate 1 SPRAY spray,suspension 1 spray NASAL DAILY PRN PRN (Reason: Allergies) Patient Comments: allergies loperamide 2 MG capsule 2 mg PO Q6H PRN PRN (Reason: Diarrhea) Qty: 20 0RF Patient Comments: diarrhea fexofenadine [Nan Allergy] 180 MG tablet 180 mg PO QHS imipramine HCl 50 MG tablet 50 mg PO QHS sucralfate 1 GM tablet 1 g PO BID budesonide-formoterol [Symbicort] 1 INHALER inhaler 2 puff inhalation BID calcium citrate-vitamin D3 [Citracal-D3 Petites] 1 EACH tablet 1 ea PO DAILY ipratropium-albuterol 3 ML solution for nebulization 3 ml inhalation Q4H PRN (Reason: BREATHING) montelukast [Singulair] 10 mg Tablet 10 mg PO DAILY Primary Care Provider: Lew Verduzco Referrals: John Pelayo MD [Med Staff - Active Staff] - 3-5 Days Lew Verduzco MD [Primary Care Provider] - Print Language: Faroese Disposition Disposition: Home, Self Care
[2024-04-04 10:17] VITALS: BP 134/59; PULSE 92; RESP 16; TEMP 36.5; O2SAT 98
== END 2024-04-04 10:18 | disposition home or self-care (01) ==
LOC: ED 10:06
PROVIDERS: Emergency Provider Emergency Medicine; PCP Internal Medicine; Visit Provider Emergency Medicine
DX: M51.372 Other intervertebral disc degeneration, lumbosacral region with discogenic back pain and lower extremity pain (principal); J44.9 Chronic obstructive pulmonary disease, unspecified; E78.00 Pure hypercholesterolemia, unspecified; Z79.51 Long term (current) use of inhaled steroids; Z79.899 Other long term (current) drug therapy
CPT/HCPCS: 99282

== ENCOUNTER → 2024-04-23 | Outpatient (CLI) | payer MEDICARE, SELFPAY ==
--- NOTE | 2024-04-23 12:34 | RAD_ITS ---
EXAM: XR LUMBOSACRAL SPINE, 4 OR 5 VIEWS CLINICAL INDICATION: pain -- please do upright AP, LAT, flex/ext TECHNIQUE: Frontal, lateral and bilateral oblique views of the lumbar spine. COMPARISON: No relevant prior studies available. FINDINGS: VERTEBRAE: The usual lordotic curvature is well-maintained on the neutral lateral view. It is minimally straightened on the flexion view, minimally increased lordotic curvature on the extension view. Mobility appears limited on both views. Mild disc space narrowing at L4-5. Minimal anterior spondylosis at multiple levels and slight opposing endplates sclerosis at multiple levels. Minimal scoliosis on frontal view. DISC SPACES: No acute findings. Disc spaces are maintained. GASTROINTESTINAL TRACT: Postoperative changes of the right mid abdomen, likely involving bowel. Mild stool in the hepatic flexure and transverse colon, mild stool in the rectosigmoid. No dilated small bowel gas. OTHER: Cholecystectomy clips. RAD/L/S Spine Min 4 Views IMPRESSION: The usual lordotic curvature appears well-maintained on the neutral view but there is very limited motion on flexion and extension. Cholecystectomy and postoperative bowel changes. Electronically Signed: Vale Vargas MD at 2:33 EST ,
== END | disposition home or self-care (01) ==
PROVIDERS: PCP Internal Medicine; Referring Provider Student in an Organized Health Care Education/Training Program; Visit Provider Student in an Organized Health Care Education/Training Program
DX: M54.50 Low back pain, unspecified (principal)
CPT/HCPCS: 72110

== ENCOUNTER 2024-07-20 10:46 | Day surgery (SDC) | payer MEDICARE, SELFPAY ==
[2024-07-20 12:01] VITALS: BP 137/59; PULSE 96; RESP 16; TEMP 36.4; O2SAT 98; BMI 28.0
--- NOTE | 2024-07-20 12:10 | RAD_ITS ---
PROCEDURE: Fluoroscopy use. 07/20/2024 REASON FOR EXAM: Caudal nerve block TECHNIQUE: A single lateral spot view of the sacrum was obtained during caudal nerve block. 4.2 seconds of fluoroscopic time utilized. COMPARISON: None. FINDINGS: A single lateral intraoperative spot image of the sacrum was obtained during caudal nerve block. Needle tip projects over the distal sacrum. RAD/Fluor Guidance for Spine Inj IMPRESSION: Documentation of fluoroscopy use during caudal nerve block. Please see the pro cedure note for details. Reading Location: [facility]
[2024-07-20] MEDS: Bupivacaine 0.25% 30 ML Vial (12:19)
[2024-07-20] MEDS: Lidocaine 1% (5 ml sdv) 5 ML Vial (12:19)
[2024-07-20] MEDS: 0.9% Normal Saline (Pres. free 10 ML Vial (12:19)
[2024-07-20] MEDS: MethylPREDNISolone Acetate 80 MG/ML Vial (12:20)
--- NOTE | 2024-07-20 12:21 | PCM.OPRPT ---
Operative Report (Standard) Operative Information Date of Procedure: 07/20/24 Pre-Operative Diagnosis: Lumbosacral radiculopathy, lumbosacral degenerative disc disease, lumbosacral spinal stenosis Post-Operative Diagnosis: Lumbosacral radiculopathy, lumbosacral degenerative disc disease, lumbosacral spinal stenosis Surgery/Procedure Performed: Diagnostic/therapeutic caudal epidural steroid injection under fluoroscopic guidance swiss type screw machine operator: No Type of Anesthesia: Local RN Documented Start/Stop Times: Operation Date: 07/20/24 12:20 Case Time Into Pre-Op 07/20/24 10:57 Anesthesia Start 07/20/24 12:12 Into Room 07/20/24 12:12 Procedure Start 07/20/24 12:17 Procedure End 07/20/24 12:21 Procedure Start Time: 12:21 Procedure Stop Time: 12:21 Select all DRAINS/GRAFTS/IMPLANTS that apply: None Estimated Blood Loss: 0 Specimen collected: No Description of surgery: PROCEDURE PERFORMED: Diagnostic/therapeutic caudal epidural steroid injection under fluoroscopic guidance ANESTHESIA: Local BLOOD LOSS: Minimal. COMPLICATIONS: None. DESCRIPTION OF PROCEDURE: History and physical of today was reviewed. Risks and benefits of the procedure were explained. The patient understood and agreed to proceed. Informed consent was obtained. IV inserted per routine protocol. The patient was taken to the operating room and placed in the prone position with a pillow positioned underneath the abdomen. The lower back and tailbone area was prepped and draped in a sterile fashion using iodine x3. Under fluoroscopy guidance on a lateral view, the caudal space was identified. The skin and subcutaneous tissue was anesthetized with approximately 3 mL of 1% lidocaine using a 25-gauge regular needle. Under direct visualization with fluoroscopy, using a 22-gauge 3-1/2-inch spinal needle, the needle was advanced via the skin through the sacral hiatus. The tip of the needle was passed through the sacrococcygeal ligament and advanced to approximately S4 area. After negative aspiration of blood or CSF, a total of 3 mL of contrast was injected to confirm correct placement of the needle as well as cephalad spread. The spread was followed to approximately L5 area. After confirmation on AP as well as lateral view and repeated negative aspiration, a total of 15 mL of preservative-free 0.125% Marcaine with 80 mg of Depo-Medrol was injected easily. The needle was then removed intact. The patient experienced no sign or symptoms of intrathecal or intravascular injection. The patient experienced no paresthesia. The procedure was completed without any apparent difficulty or any complications. The patient appeared to tolerate it well. ASSESSMENT AND PLAN: This is a 63-year-old female with lumbosacral radiculopathy, lumbosacral degenerative disc disease, lumbosacral spinal stenosis status post diagnostic/therapeutic caudal epidural steroid injection, patient will continue her current medications, patient will follow-up in approximately 1 to 2 weeks for reevaluation. Surgical Findings: 0 Complications Complications: No Admit VTE Documentation VTE Present on Admission: No VTE Mechan Device Prophylaxis: None VTE Pharm Prophylaxis ordered?: No
[2024-07-20 12:23] VITALS: BP 137/59
== END 2024-07-20 13:06 | disposition home or self-care (01) ==
LOC: SDC 10:48 → AC 12:23
PROVIDERS: PCP Internal Medicine; Referring Provider Anesthesiology Pain Medicine; Visit Provider Anesthesiology Pain Medicine
PROC: 3E0S3BZ Introduction of Anesthetic Agent into Epidural Space, Percutaneous Approach (ICD-10-PCS; CPT 62282; principal; 2024-07-20 12:15)
DX: M51.17 Intervertebral disc disorders with radiculopathy, lumbosacral region (principal); M48.07 Spinal stenosis, lumbosacral region
CPT/HCPCS: 62323; 64483; 77003; A4216

== ENCOUNTER 2024-09-21 07:49 | Day surgery (SDC) | payer MEDICARE, SELFPAY ==
[2024-09-21 08:12] VITALS: BP 130/42; PULSE 107; RESP 18; TEMP 36.5; O2SAT 95; BMI 27.9
--- NOTE | 2024-09-21 08:35 | RAD_ITS ---
PROCEDURE: LUMBAR SPINE 2 OR 3 VIEWS 09/21/2024 REASON FOR EXAM: LT MEDIAL BRANCH BLOCK L3 L4 L5 TECHNIQUE: Fluoroscopy during lumbar injection with 2 spot images FINDINGS: Fluoroscopy time 24.4 seconds Cumulative dose 8.68 mGy 2 spot images show injection of contrast material at the right side of the areas of L3 and L4. Please see procedural report for further detail. RAD/Lumbar Spine 2 or 3 Views IMPRESSION: Fluoroscopy as above. Reading Location: [id number]
[2024-09-21 08:56] VITALS: BP 129/58; BP 144/68; O2SAT 96; O2SAT 97
[2024-09-21] MEDS: MethylPREDNISolone Acetate 80 MG/ML Vial (09:02)
[2024-09-21] MEDS: Bupivacaine 0.25% 30 ML Vial (09:03)
[2024-09-21] MEDS: Lidocaine 1% (5 ml sdv) 5 ML Vial (09:03)
--- NOTE | 2024-09-21 09:12 | PCM.OPRPT ---
Operative Report (Standard) Operative Information Date of Procedure: 09/21/24 Pre-Operative Diagnosis: Lumbosacral radiculopathy, lumbosacral degenerative disc disease, lumbosacral spinal stenosis Post-Operative Diagnosis: Lumbosacral radiculopathy, lumbosacral degenerative disc disease, lumbosacral spinal stenosis Surgery/Procedure Performed: Left-sided lumbar transforaminal epidural steroid injection L3-4, L4-5 under fluoroscopic guidance environmental services specialist: No Type of Anesthesia: Local RN Documented Start/Stop Times: Operation Date: 09/21/24 09:35 Case Time Into Pre-Op 09/21/24 07:52 Out of Pre-Op 09/21/24 08:46 Into Room 09/21/24 08:56 Procedure Start 09/21/24 09:01 Procedure End 09/21/24 09:06 Anesthesia End 09/21/24 09:08 Out of Room 09/21/24 09:08 Anesthesia Start Procedure Start Time: 09:14 Procedure Stop Time: 09:14 Select all DRAINS/GRAFTS/IMPLANTS that apply: None Estimated Blood Loss: 0 Specimen collected: No Description of surgery: PREOPERATIVE DIAGNOSES: 1. Lumbosacral radiculopathy. 2. Lumbosacral degenerative disk disease. 3. Lumbosacral spinal stenosis. POSTOPERATIVE DIAGNOSES: 1. Lumbosacral radiculopathy. 2. Lumbosacral degenerative disk disease. 3. Lumbosacral spinal stenosis. PROCEDURE PERFORMED: Left-sided lumbar transforaminal epidural steroid injection, L3-4 and L4-5. ANESTHESIA: Local BLOOD LOSS: Minimal. COMPLICATIONS: None. DESCRIPTION OF PROCEDURE: History and physical of today was reviewed. Risks and benefits of the procedure were explained. The patient understood and agreed to proceed. Informed consent was obtained. IV inserted per routine protocol. The patient was taken to the operating room and placed in the prone position with a pillow positioned underneath the abdomen. The left side of their lower back was prepped and draped in a sterile fashion using iodine x3. Under fluoroscopy guidance on oblique view, the L3 through L5 vertebral bodies were visualized. The skin and subcutaneous tissue was anesthetized with approximately 5 mL of 1% lidocaine using a 25-gauge regular needle. Under direct visualization with fluoroscopy at approximately 35-degree angle, starting on the left L3, ending on the left L4, using a 22-gauge 5-inch spinal needle, the needle was advanced via the skin. The tip of the needle was maneuvered and directed towards the inferior and medial gutter of the transverse process at the superiormost aspect of the neural foramen. Once the tip of the needle was at the vicinity of the foramen, after negative aspiration for blood or CSF, a total of 1 mL of contrast was injected in divided doses between both levels to confirm correct placement of the needle as well as medial spread. The confirmation was obtained on AP as well as lateral view. After repeated negative aspiration and confirmation on AP as well as lateral view, a total of 6 mL of preservative-free 0.25% Marcaine with 80 mg of Depo-Medrol was injected in divided doses between both levels. The needles were then removed intact. The patient experienced no sign or symptoms of intrathecal or intravascular injection. The patient experienced no paresthesia. The procedure was completed without any apparent difficulty or any complications. The patient appeared to tolerate it well. ASSESSMENT AND PLAN: This is a 63-year-old female with lumbosacral radiculopathy, lumbosacral degenerative disk disease, and lumbosacral spinal stenosis, status post left-sided lumbar transforaminal epidural steroid injection at L3-4 and L4-5. The patient will continue her current medications. The patient will follow up in approximately 2 weeks for reevaluation. Surgical Findings: 0 Complications Complications: No Admit VTE Documentation VTE Present on Admission: No VTE Mechan Device Prophylaxis: None VTE Pharm Prophylaxis ordered?: No
[2024-09-21 09:15] VITALS: BP 111/64; BP 129/58; PULSE 88; RESP 16; TEMP 37.2; O2SAT 99
== END 2024-09-21 09:41 | disposition home or self-care (01) ==
LOC: SDC 07:50 → AC 07:54
PROVIDERS: PCP Internal Medicine; Referring Provider Anesthesiology Pain Medicine; Visit Provider Anesthesiology Pain Medicine
PROC: 3E0S3BZ Introduction of Anesthetic Agent into Epidural Space, Percutaneous Approach (ICD-10-PCS; CPT 64484; principal; 2024-09-21 09:30)
DX: M51.17 Intervertebral disc disorders with radiculopathy, lumbosacral region (principal); M48.07 Spinal stenosis, lumbosacral region; Z79.899 Other long term (current) drug therapy
CPT/HCPCS: 64484; 64483; 72100; A4216

== ENCOUNTER 2024-10-22 16:18 | Emergency (ER) | payer MEDICARE, SELFPAY ==
[2024-10-22 16:19] VITALS: BP 155/61; PULSE 109; RESP 16; TEMP 36.8; O2SAT 98; BMI 28.2
--- NOTE | 2024-10-22 16:30 | RAD_ITS ---
PROCEDURE: TIBIA FIBULA 2 VIEWS 10/22/2024 REASON FOR EXAM: INJURY Initial encounter. TECHNIQUE: TIBIA FIBULA 2 VIEWS COMPARISON: Comparison exam August 29, 2020. FINDINGS: Tibia and fibula are intact. No fracture. No ankle or knee dislocation. Normal bone mineralization. Soft tissues are unremarkable. RAD/Tibia & Fibula 2 Views IMPRESSION: Negative tibia and fibula exam. Reading Location: [facility]
--- NOTE | 2024-10-22 16:37 | ED.VIS.FALL ---
HPI HPI - Fall History of Present Illness Chief Complaint: Fall Narrative Narrative: Chief complaint and HPI: Left walls injury. 63-year-old female with past medical history of COPD, fibromyalgia, depression/anxiety presents for evaluation of left walls injury. Patient states around noon today she had a mechanical fall outside on concrete. Did not hit her head. No LOC. States she obtained an abrasion/laceration to the left walls. Did clean the wound and dress it. Patient endorses burning in the area. She denies any fever, chills, shortness of breath, chest pain abdominal pain, nausea, vomiting, dysuria, weakness, numbness/tingling. Denies any neck or back pain. Denies any injury elsewhere. Her last tetanus was in 2020. Review of systems: See HPI Medications: As listed on the chart Allergies: As listed on the chart PFSH: Per chart Vital signs: As listed on the chart. Reviewed. Physical exam: Gen: A&O x3, NAD Head: Normocephalic, atraumatic Eyes: No sclera icterus, conjunctiva clear, PERRL ENT: Moist mucous membranes, face atraumatic Neck: Trachea midline, No JVD, full range of motion CV: RRR, no murmurs, no peripheral edema Resp: Lungs CTA BL, no w/r/c GI: Abd soft, non-distended, non-tender, no r/r/g Musc: Full ROM, no deformity, patient has an extensive skin tear to the left anterior walls with underlying fat exposed it measures 11 cm, tender to palpation with mild swelling and ecchymosis, no erythema/warmth/crepitus, knee/ankle nontender to palpation DP/PT pulses +2 bilaterally Skin: Warm, dry Neuro: Alert, oriented, grossly intact, sensation intact Psych: Cooperative, appropriate mood and affect [facility] Medical History (Updated 10/22/24 @ 18:[address] Juanjose Beckman, ) History of stress test History of deviated nasal septum Wears dentures History of steroid therapy Arthritis Bladder disease High cholesterol History of IBS Non-smoker Shortness of breath on exertion COPD (chronic obstructive pulmonary disease) Asthma Migraine Degenerative disc disease Fibromyalgia Depression Anxiety Home Medications ?Medication ?Instructions ?Recorded ?Last Taken ?Type albuterol sulfate 90 mcg/actuation 1 - 2 puff IH Q4H PRN PRN Asthma 07/09/14 04/07/18 08:00 History aerosol inhaler (Ventolin HFA) clonazepam 0.5 mg tablet 0.5 mg PO BID ANXIETY 07/09/14 09/21/24 History fluticasone propionate 50 1 spray DAILY PRN PRN Allergies 07/09/14 Unknown History mcg/actuation nasal spray,suspension lansoprazole 30 mg capsule,delayed 30 mg PO DAILY , 07/09/14 09/21/24 History release (Prevacid) simvastatin 40 mg tablet 40 mg PO QHS CHOLESTEROL 07/09/14 09/20/24 History loperamide 2 mg capsule 2 mg PO Q6H PRN PRN Diarrhea ##20 07/22/14 08/09/16 Rx fexofenadine 180 mg tablet 180 mg PO QHS . 03/26/17 09/20/24 History (Nan Allergy) imipramine HCl 50 mg tablet 50 mg PO QHS depression 01/07/18 09/20/24 History budesonide-formoterol HFA 160 2 puff inhalation BID 04/04/18 09/21/24 History mcg-4.5 mcg/actuation aerosol inhaler (Symbicort) calcium 200 mg (as 1 ea PO DAILY 04/04/18 09/20/24 History citrate)-vitamin D3 6.25 mcg (250 unit) tablet (Citracal-D3 Petites) ipratropium 0.5 mg-albuterol 3 mg 3 ml inhalation Q4H PRN BREATHING 04/04/18 Unknown History (2.5 mg base)/3 mL nebulization soln sucralfate 1 gram tablet 1 g PO BID 04/04/18 09/21/24 History montelukast 10 mg tablet 10 mg PO DAILY 02/06/22 09/20/24 History (Singulair) vibegron 75 mg tablet (Gemtesa) 75 mg PO DAILY 07/20/24 09/21/24 History fesoterodine 4 mg tablet,extended 4 mg PO DAILY 09/21/24 09/21/24 History release 24 hr cephalexin 500 mg capsule 500 mg PO Q12 #14 CAPSULES 10/22/24 Unknown Rx Allergy/AdvReac Type Severity Reaction Status Date / Time aspirin Allergy Severe Anaphylaxis Verified 10/22/24 16:20 acetaminophen (From Vicodin) Allergy MAKES MY Verified 10/22/24 16:20 CHEST HURT azithromycin (From Zithromax) Allergy Itching Verified 10/22/24 16:20 budesonide Allergy Rash Verified 10/22/24 16:20 ciprofloxacin (From Cipro) Allergy Hives Verified 10/22/24 16:20 codeine Allergy Hives Verified 10/22/24 16:20 difluprednate (From Durezol) Allergy Rash Verified 10/22/24 16:20 doxycycline Allergy Rash Verified 10/22/24 16:20 hydrocodone bitartrate (From Allergy Hives Verified 10/22/24 16:20 Vicodin) ibuprofen (From Motrin) Allergy Shortness Verified 10/22/24 16:20 of breath ketorolac tromethamine (From Allergy Swelling Verified 09/21/24 08:09 Toradol) maprotiline Allergy Itching Verified 10/22/24 16:20 meperidine HCl (From Demerol) Allergy Rash Verified 10/22/24 16:20 mirtazapine Allergy Other Verified 10/22/24 16:20 Penicillins Allergy Rash Verified 10/22/24 16:20 prednisone Allergy Itching Verified 10/22/24 16:20 tramadol HCl (From Ultram) Allergy Chest Verified 10/22/24 16:20 tightness vancomycin Allergy Swelling Verified 10/22/24 16:20 acetylcysteine (From AdvReac ITCHING, Verified 10/22/24 16:20 Mucomyst) REDNESS citalopram hydrobromide AdvReac Nausea/Vom/ Verified 10/22/24 16:20 (From Celexa) Diarrhea escitalopram oxalate (From AdvReac Nausea/Vom/ Verified 10/22/24 16:20 Lexapro) Diarrhea nitrofurantoin (From AdvReac Diarrhea Verified 10/22/24 16:20 Macrobid) nitrofurantoin AdvReac Diarrhea Verified 10/22/24 16:20 macrocrystalline (From Macrobid) oxycodone AdvReac Hives Verified 10/22/24 16:20 pregabalin (From Lyrica) AdvReac Swelling Verified 10/22/24 16:20 sulfamethoxazole (From AdvReac Other Verified 10/22/24 16:20 Bactrim) trimethoprim (From Bactrim) AdvReac Unknown Verified 10/22/24 16:20 venlafaxine HCl (From AdvReac Nausea/Vom/ Verified 10/22/24 16:20 Effexor) Diarrhea Surgical History History of hysterectomy History of cholecystectomy History of nasal surgery Social History Smoking Status: Never smoker EXAM Physical Exam Const Vital Signs: 10/22/24 16:18 10/22/24 16:19 10/22/24 19:02 Temperature 98.2 F 98.5 F Temperature Source Oral Pulse Rate 109 H 94 Respiratory Rate 16 16 Respiratory Effort Normal Non-Labored Respiratory Depth Normal Respiratory Pattern Normal Blood Pressure 155/61 H 148/66 H Blood Pressure Mean 92 93 Pulse Ox 98 99 Oxygen Delivery Method Room Air MDM MDM MDM Narrative Medical decision making narrative: 63-year-old female with past medical history of COPD, fibromyalgia, depression/anxiety presents for evaluation of left walls injury after mechanical fall. Did not hit her head. No LOC. Denies any pain or injury elsewhere. Patient has an extensive skin tear to the left anterior walls with exposed fat. This will need to be suture repaired. Given her tenderness in this area with mild swelling will obtain x-ray to assess for fracture. Patient offered pain medicine but declined. She is up-to-date on tetanus. X-ray of the left tib-fib was personally reviewed and interpreted by me, ED physician. No fracture or dislocation. Radiology in agreement. Patient tolerated suture repair well however given the tension on her skin as well as the skin thinness, I was not able to completely close the skin tear. There is an area that I left open. Patient will need to be placed on prophylaxis antibiotics given the extent of her skin tear. She has multiple allergies making it difficult to prescribe an antibiotic. She has a rash to penicillins, she is open to trying Keflex. She was given the first dose here and placed on a 7-day course. She was educated that she develops a rash to start Benadryl as well as stop taking the medication and contact her PCP. She was told to monitor for signs of infection. Sutures need to be removed in 14 days. She confirmed understanding of the plan. Return precautions explained. Laceration Repair Indication: 11 cm left anterior calf skin tear Consent: Risks, benefits, and alternatives discussed with patient and consent obtained Procedure: A time out was performed. The area was prepped and draped in the usual sterile fashion. Local anesthesia was achieved using 1% Lidocaine with epinephrine. The wound was copiously irrigated and cleaned. sutures were placed using 4-0 Ethilon in an interrupted fashion. The estimated blood loss was minimal. A dressing was applied to the area with Bacitracin. The patient tolerated the procedure well without complications. Foreign Material: None Debridement: There was a small area of skin that was debrided Follow-up: Anticipatory guidance, as well as standard post-procedure care, was explained. Return precautions are given. Follow-up visit set for suture removal and evaluation of the laceration. Impression: 1. 11 cm left anterior calf skin tear, suture repaired 2. Mechanical fall 3. Left calf contusion Radiography Diagnostic Testing: Clinical Impression(s) from Imaging Studies Tibia/Fibula X-Ray 10/22/24 16:30 IMPRESSION: Negative tibia and fibula exam. Reading [facility] Discharge Plan Triage Chief Complaint: Fall ED Provider: Juanjose Beckman Dx/Rx/DC Orders Clinical Impression: Laceration of left calf Instructions: ED Laceration, All Closures Prescriptions: New cephalexin 500 mg capsule 500 mg PO Q12 Qty: 14 0RF No Action clonazepam 0.5 MG tablet 0.5 mg PO BID Patient Comments: anxiety simvastatin 40 MG tablet 40 mg PO QHS Patient Comments: cholesterol lansoprazole [Prevacid] 30 MG capsule 30 mg PO DAILY Patient Comments: gerd albuterol sulfate [Ventolin HFA] 18 GM HFA aerosol inhaler 1 - 2 puff IH Q4H PRN PRN (Reason: Asthma) Patient Comments: asthma fluticasone propionate 1 SPRAY spray,suspension 1 spray NASAL DAILY PRN PRN (Reason: Allergies) Patient Comments: allergies loperamide 2 MG capsule 2 mg PO Q6H PRN PRN (Reason: Diarrhea) Qty: 20 0RF Patient Comments: diarrhea fexofenadine [Nan Allergy] 180 MG tablet 180 mg PO QHS imipramine HCl 50 MG tablet 50 mg PO QHS sucralfate 1 GM tablet 1 g PO BID budesonide-formoterol [Symbicort] 1 INHALER inhaler 2 puff inhalation BID calcium citrate-vitamin D3 [Citracal-D3 Petites] 1 EACH tablet 1 ea PO DAILY ipratropium-albuterol 3 ML solution for nebulization 3 ml inhalation Q4H PRN (Reason: BREATHING) montelukast [Singulair] 10 mg Tablet 10 mg PO DAILY Gemtesa 75 mg tablet 75 mg PO DAILY fesoterodine 4 mg tablet extended release 24 hr 4 mg PO DAILY Primary Care Provider: Norma Pelaez Referrals: Norma Pelaez MD [Primary Care Provider] - 3-5 Days Activity Restrictions/Additional Instructions: Monitor for signs of infection. Take all of your antibiotics, you received the first dose here in the emergency department. Okay to shower in 24 hours. No soaking in the bath tubs, hot tubs, lakes, rodriguez, oceans until fully healed. Follow-up with primary care physician. Return back to the ED if symptoms change or worsen. Sutures need to be removed in 14 days. Print Language: Danish Disposition Disposition: Home, Self Care Discharge Date/Time: 10/22/24 19:02
[2024-10-22] MEDS: Lidocaine 1% /Epi 1:100 (20ml) 20 ML Vial INFILT (16:43)
[2024-10-22] MEDS: Cephalexin 250 MG Capsule 500 MG PO (19:00)
[2024-10-22 19:02] VITALS: BP 148/66; PULSE 94; RESP 16; TEMP 36.9; O2SAT 99
== END 2024-10-22 19:02 | disposition home or self-care (01) ==
PROVIDERS: Emergency Provider Surgery; PCP Internal Medicine; Visit Provider Surgery
DX: S81.812A Laceration without foreign body, left lower leg, initial encounter (principal); J44.9 Chronic obstructive pulmonary disease, unspecified; W18.30XA Fall on same level, unspecified, initial encounter; E78.00 Pure hypercholesterolemia, unspecified; Z79.51 Long term (current) use of inhaled steroids; Z79.899 Other long term (current) drug therapy
CPT/HCPCS: 12004; 73590; 99283

== ENCOUNTER 2024-12-02 08:30 | Outpatient (RCR) | payer OTHER, SELFPAY ==
[2024-11-11 08:21] VITALS: BP 153/80; PULSE 106; RESP 18; TEMP 36.5
--- NOTE | 2024-11-11 12:17 | PCM.WC.HP ---
History of Present Illness Date of Service: 11/11/24 Chief Complaint: Left lower walls from a fall on some wooden steps outside her house seen in the emergency room on October 22 History of Wound: 63-year-old white female that had sutures put in the dehisced and now she has a well-approximated wound but it has a lot of blackened scabs and peeling skin. 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) History of stress test History of deviated nasal septum Wears dentures History of steroid therapy Arthritis Bladder disease High cholesterol History of IBS Non-smoker Shortness of breath on exertion COPD (chronic obstructive pulmonary disease) Asthma Migraine Degenerative disc disease Fibromyalgia Depression Anxiety Home Medications ?Medication ?Instructions ?Recorded ?Last Taken ?Type albuterol sulfate 90 mcg/actuation 1 - 2 puff IH Q4H PRN PRN Asthma 07/09/14 04/07/18 08:00 History aerosol inhaler (Ventolin HFA) clonazepam 0.5 mg tablet 0.5 mg PO BID ANXIETY 07/09/14 09/21/24 History fluticasone propionate 50 1 spray DAILY PRN PRN Allergies 07/09/14 Unknown History mcg/actuation nasal spray,suspension lansoprazole 30 mg capsule,delayed 30 mg PO DAILY , 07/09/14 09/21/24 History release (Prevacid) simvastatin 40 mg tablet 40 mg PO QHS CHOLESTEROL 07/09/14 09/20/24 History loperamide 2 mg capsule 2 mg PO Q6H PRN PRN Diarrhea ##20 07/22/14 08/09/16 Rx fexofenadine 180 mg tablet 180 mg PO QHS . 03/26/17 09/20/24 History (Nan Allergy) imipramine HCl 50 mg tablet 50 mg PO QHS depression 01/07/18 09/20/24 History budesonide-formoterol HFA 160 2 puff inhalation BID 04/04/18 09/21/24 History mcg-4.5 mcg/actuation aerosol inhaler (Symbicort) calcium 200 mg (as 1 ea PO DAILY 04/04/18 09/20/24 History citrate)-vitamin D3 6.25 mcg (250 unit) tablet (Citracal-D3 Petites) ipratropium 0.5 mg-albuterol 3 mg 3 ml inhalation Q4H PRN BREATHING 04/04/18 Unknown History (2.5 mg base)/3 mL nebulization soln sucralfate 1 gram tablet 1 g PO BID 04/04/18 09/21/24 History montelukast 10 mg tablet 10 mg PO DAILY 02/06/22 09/20/24 History (Singulair) vibegron 75 mg tablet (Gemtesa) 75 mg PO DAILY 07/20/24 09/21/24 History fesoterodine 4 mg tablet,extended 4 mg PO DAILY 09/21/24 09/21/24 History release 24 hr Allergy/AdvReac Type Severity Reaction Status Date / Time aspirin Allergy Severe Anaphylaxis Verified 11/11/24 08:39 acetaminophen (From Vicodin) Allergy MAKES MY Verified 11/11/24 08:39 CHEST HURT azithromycin (From Zithromax) Allergy Itching Verified 11/11/24 08:39 budesonide Allergy Rash Verified 11/11/24 08:39 ciprofloxacin (From Cipro) Allergy Hives Verified 11/11/24 08:39 codeine Allergy Hives Verified 11/11/24 08:39 difluprednate (From Durezol) Allergy Rash Verified 11/11/24 08:39 doxycycline Allergy Rash Verified 11/11/24 08:39 hydrocodone bitartrate (From Allergy Hives Verified 11/11/24 08:39 Vicodin) ibuprofen (From Motrin) Allergy Shortness Verified 11/11/24 08:39 of breath ketorolac tromethamine (From Allergy Swelling Verified 11/11/24 08:39 Toradol) maprotiline Allergy Itching Verified 11/11/24 08:39 meperidine HCl (From Demerol) Allergy Rash Verified 11/11/24 08:39 mirtazapine Allergy Other Verified 11/11/24 08:39 Penicillins Allergy Rash Verified 11/11/24 08:39 prednisone Allergy Itching Verified 11/11/24 08:39 tramadol HCl (From Ultram) Allergy Chest Verified 11/11/24 08:39 tightness vancomycin Allergy Swelling Verified 11/11/24 08:39 acetylcysteine (From AdvReac ITCHING, Verified 11/11/24 08:39 Mucomyst) REDNESS citalopram hydrobromide AdvReac Nausea/Vom/ Verified 11/11/24 08:39 (From Celexa) Diarrhea escitalopram oxalate (From AdvReac Nausea/Vom/ Verified 11/11/24 08:39 Lexapro) Diarrhea nitrofurantoin (From AdvReac Diarrhea Verified 11/11/24 08:39 Macrobid) nitrofurantoin AdvReac Diarrhea Verified 11/11/24 08:39 macrocrystalline (From Macrobid) oxycodone AdvReac Hives Verified 11/11/24 08:39 pregabalin (From Lyrica) AdvReac Swelling Verified 11/11/24 08:39 sulfamethoxazole (From AdvReac Other Verified 11/11/24 08:39 Bactrim) trimethoprim (From Bactrim) AdvReac Unknown Verified 11/11/24 08:39 venlafaxine HCl (From AdvReac Nausea/Vom/ Verified 11/11/24 08:39 Effexor) Diarrhea Surgical History History of hysterectomy History of cholecystectomy History of nasal surgery Social History Smoking Status: Never smoker ROS Constitutional Constitutional: Reports systems reviewed and no addt'l complaints, except as documented Eyes Eyes: Reports systems reviewed and no addt'l complaints, except as documented ENT HEENT: Reports systems reviewed and no addt'l complaints, except as documented Cardiovascular Cardiovascular: Reports systems reviewed and no addt'l complaints, except as documented Respiratory/Chest Respiratory/Chest: Reports systems reviewed and no addt'l complaints, except as documented Gastrointestinal Gastrointestinal: Reports systems reviewed and no addt'l complaints, except as documented Genitourinary Genitourinary: Reports systems reviewed and no addt'l complaints, except as documented Musculoskeletal Musculoskeletal: Reports systems reviewed and no addt'l complaints, except as documented Integumentary Integumentary: Reports wounds and other Details: Open wound left walls old scabbing and dry skin on top of up will partially approximated wound Neurologic Neurologic: Reports systems reviewed and no addt'l complaints, except as documented Psychiatric Psychiatric: Reports systems reviewed and no addt'l complaints, except as documented Endocrine Endocrinology: Reports systems reviewed and no addt'l complaints, except as documented Hematologic/Lymphatic Hematologic/Lymphatic: Reports systems reviewed and no addt'l complaints, except as documented Allergic/Immunologic Allergic/Immunologic: Reports systems reviewed and no addt'l complaints, except as documented Vital Signs Vital Signs Vital Signs: 11/11/24 08:21 Temperature 97.7 F L Temperature Source Temporal Pulse Rate 106 H Respiratory Rate 18 Blood Pressure 153/80 H Blood Pressure Mean 104 Blood Pressure Source Monitor Physical Exam Const oriented x3 General Appearance: cooperative Exam Limitations: no limitations HEENT normocephalic Face and Sinus: normal facial exam External Ear: external ears normal Eyes General Eye: normal appearance of both eyes Neck full ROM General: normal visual inspection Resp normal respiratory effort Effort and Inspection: able to speak in complete sentences Auscultation: clear to auscultation bilaterally Cardio regular rate and regular rhythm Palpation: normal PMI Rate: regular rate Rhythm: regular rhythm GI Palpation: no hepatosplenomegaly Back/Spine Cervical Spine: cervical ROM normal Thoracic Spine / Upper Back: normal to inspection Lumbar Spine / Lower Back: normal to inspection Extremity General Extremity: normal exam except as noted, edema and other findings Other Details: Wound on the left walls Skin Wounds: wounds noted Wound Narrative: Left walls well scabbed not healed Neuro oriented x3 Psych Appearance: grossly normal Speech: normal speech Thought Content: normal thought content Judgement: judgement good Debridement Note Debridement Note Wound debrided: Traumatic left walls wound Type of Debridement: Excisional debridement Anesthesia Used: 5% Lidocaine Gel Depth: Down to and including healthy tissue and in the subcutaneous layer Percentage of wound debrided: 100 Instrument Used: 7mm curette Tissue Removed: Devitalized tissue and fibrin Severity: Fat Layer Exposed Amount of bleeding with debridement: Mild Bleeding Controlled with: Compression and gauze Patient tolerated procedure: Patient tolerated procedure well Post-Debridement Measurements and Additional Note: Post-Debridement Measurements/Treatment SLIM - Nurse 1 - General Ulcer Assessment Start: 11/11/24 08:20 Freq: Status: Active Protocol: LEX Activity Type Activity Date Activity User E-sign Co-sign Detail Recorded Client Recorded Date Recorded By Document 11/11/24 08:21 DL [id number] 11/11/24 08:37 DL 11/11/24 08:21 SLIM - Today's Visit Information Type of service Initial Visit Arrival Mode Ambulatory Vital Signs Temperature (97.8 F-99.1 F) 97.7 F L Temperature Source Temporal Pulse Rate (60-100) 106 H Pulse Location Monitor Respiratory Rate (12-18) 18 Respiratory rate source Observation Blood Pressure (90/60-120/80) 153/80 H Blood Pressure Mean 104 Source Monitor Pain Scale: 0-10 Numeric Is Patient Pain Free? Yes Lower Extremity Assessment/ Foot Assessment/ Toe Nail Assessment Left -Posterior Tibial Palpable No -Dorsalis Pedis Palpable No -Extremity Color Normal -Hair Growth on Legs No -Hair Growth on Toes No -Temperature of Extremity Warm -Capillary Refill Less than 3 Seconds -Dependent Rubor No -Blanched when Elevated No -Lipodermatosclerosis No -Other Deformity No -Prior Foot Ulcer No -Charcot Joint No -Prior Amputation No -Thick Yes -Discolored Yes -Deformed No -Improper Length & Hygeine No Right -Posterior Tibial Palpable Yes -Dorsalis Pedis Palpable Yes -Extremity Color Normal -Hair Growth on Legs Yes -Hair Growth on Toes Yes -Temperature of Extremity Warm -Capillary Refill Less than 3 Seconds -Dependent Rubor No -Blanched when Elevated No -Lipodermatosclerosis No -Other Deformity No -Prior Foot Ulcer No -Charcot Joint No -Prior Amputation No -Thick Yes -Discolored Yes -Deformed No -Improper Length & Hygeine No Neuropathy Assessment Feet - Top Side and Bottom <Entered> (a) Communication Assessment Preferred language Latvian Able to Read Yes Able to Write Yes Communication Tools None Right Hearing Abillity Normal Left Hearing Abillity Normal Visual Assistive Devices None Teaching Assessment Preferences Verbal,Written Barriers to Learning None Readiness To Learn Good Willingness to Engage in Self Management Med Activies Readiness to Engage in Self Management Med Activities Anxiety Level Calm Cooperation Cooperative Perception Coherent Interest in Health Problem Asks Questions Education Importance Acknowledges Need Does Patient Smoke tobacco or other No substances Smoking Status Never smoker Is Patient Diabetic No Functional Assessment Recent Decline in Ability to Perform Denies Any Declines Teaching: Wound Center Dressing Your Wound -Person Taught Patient *Wound/Skin Impairment -Person Taught Patient (a) 1 - + WC - Nurse 1 - General Ulcer Measurement Start: 11/11/24 08:20 Freq: Status: Active Protocol: Activity Type Activity Date Activity User E-sign Co-sign Detail Recorded Client Recorded Date Recorded By Document 11/11/24 08:21 DL [id number] 11/11/24 08:37 DL 11/11/24 08:21 Wound Center Nurse 1 #2 L Walls -Current Size (cm) - Length 0.1 -Current Size (cm) - Width 0.1 -Current Size (cm) - Depth 0.1 -Total Square Cm 0.01 -Photo Taken Yes -Exudate Amt Small -Exudate Type Serosanguineous -Wound Margin Distinct, Outline Attached -Granulation Amt None Present (0 %) -Necrosis Amt Small (1-33%) -Necrotic Tissue Type Adherent Slough -Structure Exposed N/A -Texture (Adry-wound Skin Appearance) Localized Edema ,Scarring -Moisture (Adry-wound Skin Appearance) No Abnormality -Color (Adry-wound Skin Appearance) No Abnormality -Temperature (Adry-wound Skin No Abnormality Appearance) (Pt Warm) -Tenderness on Palpation (Adry-wound No Skin Appearance) -Ulcer Cleansing Soap and Water -Foul Odor after Cleansing No -Anesthetic Used 4% Lidocaine Solution Right Calf (cm) 30 Right Ankle (cm) 18.5 Left Calf (cm) 33 Left Ankle (cm) 21 - Nurse 2 - General Ulcer CM Notes Start: 11/11/24 08:20 Freq: Status: Active Protocol: Activity Type Activity Date Activity User E-sign Co-sign Detail Recorded Client Recorded Date Recorded By Document 11/11/24 09:10 [facility] [id number] 11/11/24 09:27 [facility] 11/11/24 09:10 Wound Center Nurse 2 #2 L Walls -Time 09:10 -Correct Patient Yes -Correct Side, Site, Position Yes -Correct Procedure Yes -Procedure Performed Yes -Type of Procedure Debridement -Clinical Debridement Subcutaneous -Tissue Removed Subcutaneous -Post Debridement (cm) - Length 9.4 -Post Debridement (cm) - Width 3.5 -Post Debridement (cm) - Depth 0.2 -Total Square (Post) (cm) 32.90 -Area of Debridement (cm) - Length 9.4 -Area of Debridement (cm) - Width 3.5 -Total Square (Area) (cm) 32.90 -Tunneling No -Undermining/Tunneling No -Circular Undermining No -Wound/Ulcer Outcome Not Healed -Ulcer Cleansing Rinsed/ Irrigated with Saline -Foul Odor after Cleansing No -Bioengineered Tissue No -Bleeding Controlled with Pressure -Treatment Response Procedure Tolerated Well -Debridement - Subq, 1st 20sq cm Yes -Debridement, SubQ, ea addt'l 20sq cm 1 or part thereof Pain Scale: 0-10 Numeric Is Patient Pain Free? Yes WC - Nurse 3 - General Ulcer D/C NN Start: 11/11/24 08:20 Freq: Status: Active Protocol: Activity Type Activity Date Activity User E-sign Co-sign Detail Recorded Client Recorded Date Recorded By Document 11/11/24 09:41 DL [id number] 11/11/24 09:42 DL 11/11/24 09:41 Wound Care Center Nurse 3 #2 L Walls -Ulcer Cleansing Rinsed/ Irrigated with Saline -Foul Odor after Cleansing No -Primary Dressing Applied NonAdherent Contact Layer -Other Dressing Xerofrom -Primary Dressing Covered/Secured with Dry Gauze & Roll Gauze, Secured with Tape -Other Covering ABD LLE -Tubular Bandage Double Layer -Size of Tubigrip Used Size E -Size E ($) 2 Treatment Response Procedure Tolerated Well Pain Scale: 0-10 Numeric Is Patient Pain Free? Yes WC - Visit Discharge Discharge Condition Stable Ambulatory Status Ambulatory Transportation Private Auto Assessment/Plan Assessment/Plan (1) Nonhealing surgical wound: CODE(S): T81.89XA - Other complications of procedures, 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ssified, initial encounter QUALIFIERS: Encounter type: initial encounter Qualified Code(s): T81.89XA - Other complications of procedures, 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ssified, initial encounter PLAN: Wash left leg with Hibiclens or with antibacterial soap and water and apply Xeroform Adaptic gauze ABD and Stacey to left leg with a double layer Tubigrip over top this is to be done daily. (2) Infected wound: CODE(S): T14.8XXA - Other injury of unspecified body region, initial encounter; L08.9 - Local infection of the skin and subcutaneous tissue, unspecified PLAN: Wound culture obtained will call with results (3) Traumatic ulcer of left lower leg: CODE(S): L97.929 - Non-pressure chronic ulcer of unspecified part of left lower leg with unspecified severity QUALIFIERS: Non-pressure ulcer stage: with fat layer exposed Qualified Code(s): L97.922 - Non-pressure chronic ulcer of unspecified part of left lower leg with fat layer exposed
--- NOTE | 2024-11-11 13:50 | WC ---
PHOTO 11/11/24 Cecilia CRAWFORD
[2024-11-18 08:27] VITALS: BP 140/75; PULSE 108; RESP 16; TEMP 36.2
--- NOTE | 2024-11-18 09:20 | PN.PCM_ITS ---
History of Present Illness Date of Service: 11/18/24 Chief Complaint: Left lower walls from a fall on some wooden steps outside her house seen in the emergency room on October 22 History of Wound: 63-year-old white female that had sutures put in the dehisced and now she has a well-approximated wound but it has a lot of blackened scabs and peeling skin. Progress of Wound: Still very superficial on the wound supersensitive when trying to debride. She has a lot of allergies to everything so we have to be careful. The measurements are smaller we are using Xeroform with Adaptic which seems to be working well for her it is easier for her to apply and it does not require any pain and it seems to be cleaning it up pretty good and trying to debride is much as possible when she comes in. I have just dried skin and old blood. Subjective Subjective Patient is compliant and with care and is doing well with the Tubigrip's and elevation. Objective Data Objective Data No sign of infection her growth came back negative for any anaerobes so she just needs to close up and eat more protein. Vital Signs: Vital Signs Temp Pulse Resp BP 97.2 F L 108 H 16 140/75 H 11/18/24 08:27 11/18/24 08:27 11/18/24 08:27 11/18/24 08:27 Lab / Micro Data Micro: Microbiology 11/11/24 09:20 Wound - Other Gram Stain - Final 11/11/24 09:20 Wound - Other Wound Culture - Final No growth aerobically. 11/11/24 09:20 Wound - Other Anaerobic Culture - Final No anaerobic bacteria isolated. Physical Exam Const oriented x3 General Appearance: cooperative Exam Limitations: no limitations HEENT normocephalic Face and Sinus: normal facial exam External Ear: external ears normal Eyes General Eye: normal appearance of both eyes Neck full ROM General: normal visual inspection Resp normal respiratory effort Effort and Inspection: able to speak in complete sentences Auscultation: clear to auscultation bilaterally Cardio regular rate and regular rhythm Palpation: normal PMI Rate: regular rate Rhythm: regular rhythm GI Palpation: no hepatosplenomegaly Back/Spine Cervical Spine: cervical ROM normal Thoracic Spine / Upper Back: normal to inspection Lumbar Spine / Lower Back: normal to inspection Extremity General Extremity: normal exam except as noted, edema and other findings Other Details: Wound on the left walls Skin Wounds: wounds noted Wound Narrative: Left walls well scabbed not healed Neuro oriented x3 Psych Appearance: grossly normal Speech: normal speech Thought Content: normal thought content Judgement: judgement good Debridement Note Debridement Note Wound debrided: Traumatic left walls wound Type of Debridement: Excisional debridement Anesthesia Used: 5% Lidocaine Gel Depth: Down to and including healthy tissue and in the subcutaneous layer Percentage of wound debrided: 100 Instrument Used: 5mm curette Tissue Removed: Devitalized tissue and fibrin Severity: Fat Layer Exposed Amount of bleeding with debridement: Mild Bleeding Controlled with: Compression and gauze Patient tolerated procedure: Patient tolerated procedure well Post-Debridement Measurements and Additional Note: Post-Debridement Measurements/Treatment - Nurse 1 - General Ulcer Assessment Start: 11/11/24 08:20 Freq: Status: Active Protocol: LEX Activity Type Activity Date Activity User E-sign Co-sign Detail Recorded Client Recorded Date Recorded By Document 11/11/24 08:21 DL [id number] 11/11/24 08:37 DL Document 11/18/24 08:27 DL [id number] 11/18/24 08:36 DL 11/11/24 11/18/24 08:21 08:27 - Today's Visit Information Type of service Initial Visit Follow-up Visit (Physician/MARKING STITCHER ) Arrival Mode Ambulatory Ambulatory Transfer Assistance None Patient Identification Verified (Name & Yes ) Patient Requires Transmission-Based No Precautions Vital Signs Temperature (97.8 F-99.1 F) 97.7 F L 97.2 F L Temperature Source Temporal Temporal Pulse Rate (60-100) 106 H 108 H Pulse Location Monitor Monitor Respiratory Rate (12-18) 18 16 Respiratory rate source Observation Observation Blood Pressure (90/60-120/80) 153/80 H 140/75 H Blood Pressure Mean (mm Hg) 104 96 Source Monitor Monitor History Since Last Visit- (Skip if this is Patient's initial visit) Have you changed medications since your No last visit? Any new allergies or adverse reactions No Had a fall/change in ADL's that may No increase risk of falls Signs or symptoms of abuse and/or No neglect since last visit Have you been in the hospital since your No last visit? Has dressing in place as prescribed Yes Has compression in place as prescribed Yes Has offloadiing in place as prescribed N/A Experienced any changes in pain level or No management Pain Scale: 0-10 Numeric Is Patient Pain Free? Yes Yes Lower Extremity Assessment/ Foot Assessment/ Toe Nail Assessment Left -Posterior Tibial Palpable No -Dorsalis Pedis Palpable No -Extremity Color Normal -Hair Growth on Legs No -Hair Growth on Toes No -Temperature of Extremity Warm -Capillary Refill Less than 3 Seconds -Dependent Rubor No -Blanched when Elevated No -Lipodermatosclerosis No -Other Deformity No -Prior Foot Ulcer No -Charcot Joint No -Prior Amputation No -Thick Yes -Discolored Yes -Deformed No -Improper Length & Hygeine No Right -Posterior Tibial Palpable Yes -Dorsalis Pedis Palpable Yes -Extremity Color Normal -Hair Growth on Legs Yes -Hair Growth on Toes Yes -Temperature of Extremity Warm -Capillary Refill Less than 3 Seconds -Dependent Rubor No -Blanched when Elevated No -Lipodermatosclerosis No -Other Deformity No -Prior Foot Ulcer No -Charcot Joint No -Prior Amputation No -Thick Yes -Discolored Yes -Deformed No -Improper Length & Hygeine No Neuropathy Assessment Feet - Top Side and Bottom <Entered> (a) Communication Assessment Preferred language Polish Able to Read Yes Able to Write Yes Communication Tools None Right Hearing Abillity Normal Left Hearing Abillity Normal Visual Assistive Devices None Teaching Assessment Preferences Verbal,Written Barriers to Learning None Readiness To Learn Good Willingness to Engage in Self Management Med Activies Readiness to Engage in Self Management Med Activities Anxiety Level Calm Cooperation Cooperative Perception Coherent Interest in Health Problem Asks Questions Education Importance Acknowledges Need Does Patient Smoke tobacco or other No substances Smoking Status Never smoker Is Patient Diabetic No Functional Assessment Recent Decline in Ability to Perform Denies Any Declines Teaching: Wound Center Dressing Your Wound -Person Taught Patient *Wound/Skin Impairment -Person Taught Patient (a) 1 - + WC - Nurse 1 - General Ulcer Measurement Start: 11/11/24 08:20 Freq: Status: Active Protocol: Activity Type Activity Date Activity User E-sign Co-sign Detail Recorded Client Recorded Date Recorded By Document 11/11/24 08:21 DL [id number] 11/11/24 08:37 DL Document 11/18/24 08:27 DL [id number] 11/18/24 08:36 DL 11/11/24 11/18/24 08:21 08:27 Wound Center Nurse 1 #2 L Walls Cluster -Current Size (cm) - Length 0.1 6.8 -Current Size (cm) - Width 0.1 1 -Current Size (cm) - Depth 0.1 0.1 -Total Square Cm 0.01 6.8 -Photo Taken Yes Yes -Exudate Amt Small Small -Exudate Type Serosanguineous -Wound Margin Distinct, Distinct, Outline Outline Attached Attached -Granulation Amt None Present (0 Medium (34-66%) %) -Granulation Quality [place] -Necrosis Amt Small (1-33%) Medium (34-66%) -Necrotic Tissue Type Adherent Slough Adherent Slough -Structure Exposed N/A N/A -Texture (Adry-wound Skin Appearance) Localized Edema Localized Edema ,Scarring ,Scarring -Moisture (Adry-wound Skin Appearance) No Abnormality No Abnormality -Color (Adry-wound Skin Appearance) No Abnormality No Abnormality -Temperature (Adry-wound Skin No Abnormality No Abnormality Appearance) (Pt Warm) (Pt Warm) -Tenderness on Palpation (Adry-wound No Skin Appearance) -Ulcer Cleansing Soap and Water Soap and Water -Foul Odor after Cleansing No No -Anesthetic Used 4% Lidocaine 5% Lidocaine Solution Gel Right Calf (cm) 30 29.5 Right Ankle (cm) 18.5 19.8 Left Calf (cm) 33 Left Ankle (cm) 21 WC - Nurse 2 - General Ulcer CM Notes Start: 11/11/24 08:20 Freq: Status: Active Protocol: Activity Type Activity Date Activity User E-sign Co-sign Detail Recorded Client Recorded Date Recorded By Document 11/11/24 09:10 [facility] [id number] 11/11/24 09:27 [facility] Document 11/18/24 08:54 [facility] [id number] 11/18/24 09:04 [facility] 11/11/24 11/18/24 09:10 08:54 Wound Center Nurse 2 #2 L Walls Cluster -Time 09:10 08:55 -Correct Patient Yes Yes -Correct Side, Site, Position Yes Yes -Correct Procedure Yes Yes -Procedure Performed Yes Yes -Type of Procedure Debridement Debridement -Clinical Debridement Subcutaneous Subcutaneous -Tissue Removed Subcutaneous Subcutaneous -Post Debridement (cm) - Length 9.4 9 -Post Debridement (cm) - Width 3.5 3 -Post Debridement (cm) - Depth 0.2 0.1 -Total Square (Post) (cm) 32.90 27 -Area of Debridement (cm) - Length 9.4 9 -Area of Debridement (cm) - Width 3.5 3 -Total Square (Area) (cm) 32.90 27 -Tunneling No No -Undermining/Tunneling No No -Circular Undermining No No -Wound/Ulcer Outcome Not Healed Not Healed -Ulcer Cleansing Rinsed/ Rinsed/ Irrigated with Irrigated with Saline Saline -Foul Odor after Cleansing No No -Bioengineered Tissue No No -Bleeding Controlled with Pressure Pressure -Treatment Response Procedure Procedure Tolerated Well Tolerated Well -Debridement - Subq, 1st 20sq cm Yes Yes -Debridement, SubQ, ea addt'l 20sq cm 1 or part thereof Pain Scale: 0-10 Numeric Is Patient Pain Free? Yes Yes - Nurse 3 - General Ulcer D/C NN Start: 11/11/24 08:20 Freq: Status: Active Protocol: Activity Type Activity Date Activity User E-sign Co-sign Detail Recorded Client Recorded Date Recorded By Document 11/11/24 09:41 DL [id number] 11/11/24 09:42 DL Document 11/18/24 09:14 [facility] [id number] 11/18/24 09:15 [facility] 11/11/24 11/18/24 09:41 09:14 Wound Care Center Nurse 3 #2 L Walls Cluster -Ulcer Cleansing Rinsed/ Rinsed/ Irrigated with Irrigated with Saline Saline -Foul Odor after Cleansing No No -Primary Dressing Applied NonAdherent NonAdherent Contact Layer Contact Layer -Other Dressing Xerofrom xeroform, adaptic -Primary Dressing Covered/Secured with Dry Gauze & Dry Gauze & Roll Gauze, Roll Gauze, Secured with Secured with Tape Tape -Other Covering ABD abd LLE -Tubular Bandage Double Layer Double Layer -Size of Tubigrip Used Size E Size E -Size E ($) 2 2 Treatment Response Procedure Procedure Tolerated Well Tolerated Well Pain Scale: 0-10 Numeric Is Patient Pain Free? Yes Yes - Visit Discharge Discharge Condition Stable Stable Ambulatory Status Ambulatory Ambulatory Transportation Private Auto Private Auto Assessment/Plan Assessment/Plan (1) Nonhealing surgical wound: CODE(S): T81.89XA - Other complications of procedures, 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ssified, initial encounter QUALIFIERS: Encounter type: initial encounter Qualified Code(s): T81.89XA - Other complications of procedures, 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ssified, initial encounter PLAN: Wash left leg with Hibiclens or with antibacterial soap and water and apply Xeroform Adaptic gauze ABD and Stacey to left leg with a double layer Tubigrip over top this is to be done daily. 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 lower leg with fat layer exposed
--- NOTE | 2024-11-18 14:17 | WC ---
PHOTO 11/18/24 TRACY
[2024-11-25 08:34] VITALS: BP 146/78; PULSE 96; RESP 16; TEMP 36.4
--- NOTE | 2024-11-25 10:47 | PCM.WC.PN ---
History of Present Illness Date of Service: 11/25/24 Chief Complaint: Left lower walls from a fall on some wooden steps outside her house seen in the emergency room on October 22 History of Wound: 63-year-old white female that had sutures put in the dehisced and now she has a well-approximated wound but it has a lot of blackened scabs and peeling skin. Progress of Wound: Still very superficial on the wound supersensitive when trying to debride. She has a lot of allergies to everything so we have to be careful. The measurements are smaller we are using Xeroform with Adaptic which seems to be working well for her it is easier for her to apply and it does not require any pain and it seems to be cleaning it up pretty good and trying to debride is much as possible when she comes in. I have just dried skin and old blood. Subjective Subjective Patient is more tolerant to debridement and doing well has no concerns Objective Data Objective Data No sign of infection cultures came back negative filling in nicely still has a lot of tissue and necrosis that has to be debrided out each week but it is measuring smaller. Vital Signs: Vital Signs Temp Pulse Resp BP 97.5 F L 96 16 146/78 H 11/25/24 08:34 11/25/24 08:34 11/25/24 08:34 11/25/24 08:34 Lab / Micro Data Attestation: I reviewed the patient's lab results. Micro: Microbiology 11/11/24 09:20 Wound - Other Gram Stain - Final 11/11/24 09:20 Wound - Other Wound Culture - Final No growth aerobically. 11/11/24 09:20 Wound - Other Anaerobic Culture - Final No anaerobic bacteria isolated. Physical Exam Const oriented x3 General Appearance: cooperative Exam Limitations: no limitations HEENT normocephalic Face and Sinus: normal facial exam External Ear: external ears normal Eyes General Eye: normal appearance of both eyes Neck full ROM General: normal visual inspection Resp normal respiratory effort Effort and Inspection: able to speak in complete sentences Auscultation: clear to auscultation bilaterally Cardio regular rate and regular rhythm Palpation: normal PMI Rate: regular rate Rhythm: regular rhythm GI Palpation: no hepatosplenomegaly Back/Spine Cervical Spine: cervical ROM normal Thoracic Spine / Upper Back: normal to inspection Lumbar Spine / Lower Back: normal to inspection Extremity General Extremity: normal exam except as noted, edema and other findings Other Details: Wound on the left walls Skin Wounds: wounds noted Wound Narrative: Left walls well scabbed not healed Neuro oriented x3 Psych Appearance: grossly normal Speech: normal speech Thought Content: normal thought content Judgement: judgement good Debridement Note Debridement Note Wound debrided: Traumatic left walls wound Type of Debridement: Excisional debridement Anesthesia Used: 5% Lidocaine Gel Depth: Down to and including healthy tissue and in the subcutaneous layer Percentage of wound debrided: 100 Instrument Used: 5mm curette Tissue Removed: Devitalized tissue and fibrin Severity: Fat Layer Exposed Amount of bleeding with debridement: Mild Bleeding Controlled with: Compression and gauze Patient tolerated procedure: Patient tolerated procedure well Post-Debridement Measurements and Additional Note: Post-Debridement Measurements/Treatment - Nurse 1 - General Ulcer Assessment Start: 11/11/24 08:20 Freq: Status: Active Protocol: SLIM.CESAR Activity Type Activity Date Activity User E-sign Co-sign Detail Recorded Client Recorded Date Recorded By Document 11/11/24 08:21 DL [id number] 11/11/24 08:37 DL Document 11/18/24 08:27 DL [id number] 11/18/24 08:36 DL Document 11/25/24 08:34 DL [id number] 11/25/24 08:41 DL 11/11/24 11/18/24 11/25/24 08:21 08:27 08:34 - Today's Visit Information Type of service Initial Visit Follow-up Visit Follow-up Visit (Physician/DEVELOPMENT TEAM LEAD (Physician/DEVELOPMENT TEAM LEAD ) ) Arrival Mode Ambulatory Ambulatory Ambulatory Transfer Assistance None None Patient Identification Verified (Name & Yes Yes ) Patient Requires Transmission-Based No No Precautions Vital Signs Temperature (97.8 F-99.1 F) 97.7 F L 97.2 F L 97.5 F L Temperature Source Temporal Temporal Temporal Pulse Rate (60-100) 106 H 108 H 96 Pulse Location Monitor Monitor Monitor Respiratory Rate (12-18) 18 16 16 Respiratory rate source Observation Observation Observation Blood Pressure (90/60-120/80) 153/80 H 140/75 H 146/78 H Blood Pressure Mean (mm Hg) 104 96 100 Source Monitor Monitor Monitor History Since Last Visit- (Skip if this is Patient's initial visit) Have you changed medications since your No No last visit? Any new allergies or adverse reactions No No Had a fall/change in ADL's that may No No increase risk of falls Signs or symptoms of abuse and/or No No neglect since last visit Have you been in the hospital since your No No last visit? Has dressing in place as prescribed Yes Yes Has compression in place as prescribed Yes Yes Has offloadiing in place as prescribed N/A Yes Experienced any changes in pain level or No No management Right Footwear Surgical Shoe with pressure relief insole Pain Scale: 0-10 Numeric Is Patient Pain Free? Yes Yes Yes Lower Extremity Assessment/ Foot Assessment/ Toe Nail Assessment Left -Posterior Tibial Palpable No -Dorsalis Pedis Palpable No -Extremity Color Normal -Hair Growth on Legs No -Hair Growth on Toes No -Temperature of Extremity Warm -Capillary Refill Less than 3 Seconds -Dependent Rubor No -Blanched when Elevated No -Lipodermatosclerosis No -Other Deformity No -Prior Foot Ulcer No -Charcot Joint No -Prior Amputation No -Thick Yes -Discolored Yes -Deformed No -Improper Length & Hygeine No Right -Posterior Tibial Palpable Yes -Dorsalis Pedis Palpable Yes -Extremity Color Normal -Hair Growth on Legs Yes -Hair Growth on Toes Yes -Temperature of Extremity Warm -Capillary Refill Less than 3 Seconds -Dependent Rubor No -Blanched when Elevated No -Lipodermatosclerosis No -Other Deformity No -Prior Foot Ulcer No -Charcot Joint No -Prior Amputation No -Thick Yes -Discolored Yes -Deformed No -Improper Length & Hygeine No Neuropathy Assessment Feet - Top Side and Bottom <Entered> (a) Communication Assessment Preferred language Sets[place] Able to Read Yes Able to Write Yes Communication Tools None Right Hearing Abillity Normal Left Hearing Abillity Normal Visual Assistive Devices None Teaching Assessment Preferences Verbal,Written Barriers to Learning None Readiness To Learn Good Willingness to Engage in Self Management Med Activies Readiness to Engage in Self Management Med Activities Anxiety Level Calm Cooperation Cooperative Perception Coherent Interest in Health Problem Asks Questions Education Importance Acknowledges Need Does Patient Smoke tobacco or other No substances Smoking Status Never smoker Is Patient Diabetic No Functional Assessment Recent Decline in Ability to Perform Denies Any Declines Teaching: Wound Center Dressing Your Wound -Person Taught Patient *Wound/Skin Impairment -Person Taught Patient (a) 1 - + WC - Nurse 1 - General Ulcer Measurement Start: 11/11/24 08:20 Freq: Status: Active Protocol: Activity Type Activity Date Activity User E-sign Co-sign Detail Recorded Client Recorded Date Recorded By Document 11/11/24 08:21 DL [id number] 11/11/24 08:37 DL Document 11/18/24 08:27 DL [id number] 11/18/24 08:36 DL Document 11/25/24 08:34 DL [id number] 11/25/24 08:41 DL 11/11/24 11/18/24 11/25/24 08:21 08:27 08:34 Wound Center Nurse 1 #2 L Walls Cluster -Current Size (cm) - Length 0.1 6.8 7.8 -Current Size (cm) - Width 0.1 1 2.1 -Current Size (cm) - Depth 0.1 0.1 0.1 -Total Square Cm 0.01 6.8 16.38 -Photo Taken Yes Yes Yes -Exudate Amt Small Small Medium -Exudate Type Serosanguineous Serosanguineous -Wound Margin Distinct, Distinct, Distinct, Outline Outline Outline Attached Attached Attached -Granulation Amt None Present (0 Medium (34-66%) Medium (34-66%) %) -Granulation Quality [place] Red -Necrosis Amt Small (1-33%) Medium (34-66%) Medium (34-66%) -Necrotic Tissue Type Adherent Slough Adherent Slough Adherent Slough -Structure Exposed N/A N/A N/A -Texture (Adry-wound Skin Appearance) Localized Edema Localized Edema Scarring ,Scarring ,Scarring -Moisture (Adry-wound Skin Appearance) No Abnormality No Abnormality No Abnormality -Color (Adry-wound Skin Appearance) No Abnormality No Abnormality No Abnormality -Temperature (Adry-wound Skin No Abnormality No Abnormality No Abnormality Appearance) (Pt Warm) (Pt Warm) (Pt Warm) -Tenderness on Palpation (Adry-wound No Skin Appearance) -Ulcer Cleansing Soap and Water Soap and Water Soap and Water -Foul Odor after Cleansing No No No -Anesthetic Used 4% Lidocaine 5% Lidocaine 5% Lidocaine Solution Gel Gel Right Calf (cm) 30 29.5 Right Ankle (cm) 18.5 19.8 Left Calf (cm) 33 30 Left Ankle (cm) 21 19.3 WC - Nurse 2 - General Ulcer CM Notes Start: 11/11/24 08:20 Freq: Status: Active Protocol: Activity Type Activity Date Activity User E-sign Co-sign Detail Recorded Client Recorded Date Recorded By Document 11/11/24 09:10 [facility] [id number] 11/11/24 09:27 [facility] Document 11/18/24 08:54 [facility] [id number] 11/18/24 09:04 [facility] Document 11/25/24 08:58 [facility] [id number] 11/25/24 09:04 [facility] 11/11/24 11/18/24 11/25/24 09:10 08:54 08:58 Wound Center Nurse 2 #2 L Walls Cluster -Time 09:10 08:55 08:59 -Correct Patient Yes Yes Yes -Correct Side, Site, Position Yes Yes Yes -Correct Procedure Yes Yes Yes -Procedure Performed Yes Yes Yes -Type of Procedure Debridement Debridement Debridement -Clinical Debridement Subcutaneous Subcutaneous Subcutaneous -Tissue Removed Subcutaneous Subcutaneous Subcutaneous -Post Debridement (cm) - Length 9.4 9 8.4 -Post Debridement (cm) - Width 3.5 3 2.3 -Post Debridement (cm) - Depth 0.2 0.1 0.2 -Total Square (Post) (cm) 32.90 27 19.32 -Area of Debridement (cm) - Length 9.4 9 8.4 -Area of Debridement (cm) - Width 3.5 3 2.3 -Total Square (Area) (cm) 32.90 27 19.32 -Tunneling No No No -Undermining/Tunneling No No No -Circular Undermining No No No -Wound/Ulcer Outcome Not Healed Not Healed Not Healed -Ulcer Cleansing Rinsed/ Rinsed/ Rinsed/ Irrigated with Irrigated with Irrigated with Saline Saline Saline -Foul Odor after Cleansing No No No -Bioengineered Tissue No No No -Bleeding Controlled with Pressure Pressure Pressure -Treatment Response Procedure Procedure Procedure Tolerated Well Tolerated Well Tolerated Well -Debridement - Subq, 1st 20sq cm Yes Yes Yes -Debridement, SubQ, ea addt'l 20sq cm 1 or part thereof Pain Scale: 0-10 Numeric Is Patient Pain Free? Yes Yes Yes WC - Nurse 3 - General Ulcer D/C NN Start: 11/11/24 08:20 Freq: Status: Active Protocol: Activity Type Activity Date Activity User E-sign Co-sign Detail Recorded Client Recorded Date Recorded By Document 11/11/24 09:41 DL [id number] 11/11/24 09:42 DL Document 11/18/24 09:14 [facility] [id number] 11/18/24 09:15 [facility] Document 11/25/24 09:14 [facility] [id number] 11/25/24 09:15 [facility] 11/11/24 11/18/24 11/25/24 09:41 09:14 09:14 Wound Care Center Nurse 3 #2 L Walls Cluster -Ulcer Cleansing Rinsed/ Rinsed/ Rinsed/ Irrigated with Irrigated with Irrigated with Saline Saline Saline -Foul Odor after Cleansing No No No -Primary Dressing Applied NonAdherent NonAdherent NonAdherent Contact Layer Contact Layer Contact Layer -Other Dressing Xerofrom xeroform, xeroform, adaptic adaptic, abd -Primary Dressing Covered/Secured with Dry Gauze & Dry Gauze & Dry Gauze & Roll Gauze, Roll Gauze, Roll Gauze, Secured with Secured with Secured with Tape Tape Tape -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 Yes Yes Yes WC - Visit Discharge Discharge Condition Stable Stable Stable Ambulatory Status Ambulatory Ambulatory Ambulatory Transportation Private Auto Private Auto Private Auto
--- NOTE | 2024-11-26 08:21 | WC ---
PHOTO-LLE 11/25/24
[2024-12-02 08:28] VITALS: BP 122/66; PULSE 105; RESP 16; TEMP 36.4
--- NOTE | 2024-12-02 09:54 | PCM.WC.PN ---
History of Present Illness Date of Service: 12/02/24 Chief Complaint: Left lower walls from a fall on some wooden steps outside her house seen in the emergency room on October 22 History of Wound: 63-year-old white female that had sutures put in the dehisced and now she has a well-approximated wound but it has a lot of blackened scabs and peeling skin. Progress of Wound: Still very superficial on the wound supersensitive when trying to debride. She has a lot of allergies to everything so we have to be careful. The measurements are the same this week so we will probably switch her from the Xeroform over to Aquacel extra moistened no Adaptic and just a gauze dressing she seems to get macerated also. No sign of infection but she has a lot of slough that just keeps rebuilding and that wound I am having a hard time getting it to clean out. Subjective Subjective Patient is okay with the change up she will be taught how to do with the second nurse. Objective Data Objective Data No sign of infection no odor no smell no purulent matter except she has gets a lot of slough in there. Again very sensitive to debridement so it is hard to debride on her but I did get most of it out. Will try using Aquacel extra to see if that works better. Vital Signs: Vital Signs Temp Pulse Resp BP O2 Del Method 97.6 F L 105 H 16 122/66 H Room Air 12/02/24 08:28 12/02/24 08:28 12/02/24 08:28 12/02/24 08:28 12/02/24 08:28 Oxygen Delivery Method Room Air Lab / Micro Data Attestation: I reviewed the patient's lab results. Micro: Microbiology 11/11/24 09:20 Wound - Other Gram Stain - Final 11/11/24 09:20 Wound - Other Wound Culture - Final No growth aerobically. 11/11/24 09:20 Wound - Other Anaerobic Culture - Final No anaerobic bacteria isolated. Physical Exam Const oriented x3 General Appearance: cooperative Exam Limitations: no limitations HEENT normocephalic Face and Sinus: normal facial exam External Ear: external ears normal Eyes General Eye: normal appearance of both eyes Neck full ROM General: normal visual inspection Resp normal respiratory effort Effort and Inspection: able to speak in complete sentences Auscultation: clear to auscultation bilaterally Cardio regular rate and regular rhythm Palpation: normal PMI Rate: regular rate Rhythm: regular rhythm GI Palpation: no hepatosplenomegaly Back/Spine Cervical Spine: cervical ROM normal Thoracic Spine / Upper Back: normal to inspection Lumbar Spine / Lower Back: normal to inspection Extremity General Extremity: normal exam except as noted, edema and other findings Other Details: Wound on the left walls Skin Wounds: wounds noted Wound Narrative: Left walls well scabbed not healed Neuro oriented x3 Psych Appearance: grossly normal Speech: normal speech Thought Content: normal thought content Judgement: judgement good Debridement Note Debridement Note Wound debrided: Traumatic left walls wound Type of Debridement: Excisional debridement Anesthesia Used: 5% Lidocaine Gel Depth: Down to and including healthy tissue and in the subcutaneous layer Percentage of wound debrided: 100 Instrument Used: 7mm curette Tissue Removed: Devitalized tissue and slough Severity: Fat Layer Exposed Amount of bleeding with debridement: Mild Bleeding Controlled with: Compression and gauze Patient tolerated procedure: Patient tolerated procedure well Post-Debridement Measurements and Additional Note: Post-Debridement Measurements/Treatment - Nurse 1 - General Ulcer Assessment Start: 11/11/24 08:20 Freq: Status: Active Protocol: SLIM.LAURAT Activity Type Activity Date Activity User E-sign Co-sign Detail Recorded Client Recorded Date Recorded By Document 11/11/24 08:21 DL [id number] 11/11/24 08:37 DL Document 11/18/24 08:27 DL [id number] 11/18/24 08:36 DL Document 11/25/24 08:34 DL [id number] 11/25/24 08:41 DL Document 12/02/24 08:28 BM [id number] 12/02/24 08:36 BM 11/11/24 11/18/24 11/25/24 08:21 08:27 08:34 - Today's Visit Information Type of service Initial Visit Follow-up Visit Follow-up Visit (Physician/SOCIAL SCIENCE INSTRUCTOR (Physician/SOCIAL SCIENCE INSTRUCTOR ) ) Arrival Mode Ambulatory Ambulatory Ambulatory Transfer Assistance None None Patient Identification Verified (Name & Yes Yes ) Patient Requires Transmission-Based No No Precautions Vital Signs Temperature (97.8 F-99.1 F) 97.7 F L 97.2 F L 97.5 F L Temperature Source Temporal Temporal Temporal Pulse Rate (60-100) 106 H 108 H 96 Pulse Location Monitor Monitor Monitor Respiratory Rate (12-18) 18 16 16 Respiratory rate source Observation Observation Observation Oxygen Delivery Method Blood Pressure (90/60-120/80) 153/80 H 140/75 H 146/78 H Blood Pressure Mean (mm Hg) 104 96 100 Source Monitor Monitor Monitor Position Blood Pressure Location History Since Last Visit- (Skip if this is Patient's initial visit) Have you changed medications since your No No last visit? Any new allergies or adverse reactions No No Had a fall/change in ADL's that may No No increase risk of falls Signs or symptoms of abuse and/or No No neglect since last visit Have you been in the hospital since your No No last visit? Has dressing in place as prescribed Yes Yes Has compression in place as prescribed Yes Yes Has offloadiing in place as prescribed N/A Yes Experienced any changes in pain level or No No management Left Footwear Right Footwear Surgical Shoe with pressure relief insole Pain Scale: 0-10 Numeric Is Patient Pain Free? Yes Yes Yes Lower Extremity Assessment/ Foot Assessment/ Toe Nail Assessment Left -Posterior Tibial Palpable No -Dorsalis Pedis Palpable No -Extremity Color Normal -Hair Growth on Legs No -Hair Growth on Toes No -Temperature of Extremity Warm -Capillary Refill Less than 3 Seconds -Dependent Rubor No -Blanched when Elevated No -Lipodermatosclerosis No -Other Deformity No -Prior Foot Ulcer No -Charcot Joint No -Prior Amputation No -Thick Yes -Discolored Yes -Deformed No -Improper Length & Hygeine No Right -Posterior Tibial Palpable Yes -Dorsalis Pedis Palpable Yes -Extremity Color Normal -Hair Growth on Legs Yes -Hair Growth on Toes Yes -Temperature of Extremity Warm -Capillary Refill Less than 3 Seconds -Dependent Rubor No -Blanched when Elevated No -Lipodermatosclerosis No -Other Deformity No -Prior Foot Ulcer No -Charcot Joint No -Prior Amputation No -Thick Yes -Discolored Yes -Deformed No -Improper Length & Hygeine No Neuropathy Assessment Feet - Top Side and Bottom <Entered> (a) Communication Assessment Preferred language Japanese Able to Read Yes Able to Write Yes Communication Tools None Right Hearing Abillity Normal Left Hearing Abillity Normal Visual Assistive Devices None Teaching Assessment Preferences Verbal,Written Barriers to Learning None Readiness To Learn Good Willingness to Engage in Self Management Med Activies Readiness to Engage in Self Management Med Activities Anxiety Level Calm Cooperation Cooperative Perception Coherent Interest in Health Problem Asks Questions Education Importance Acknowledges Need Does Patient Smoke tobacco or other No substances Smoking Status Never smoker Is Patient Diabetic No Functional Assessment Recent Decline in Ability to Perform Denies Any Declines Teaching: Wound Center Dressing Your Wound -Person Taught Patient *Wound/Skin Impairment -Person Taught Patient 12/02/24 08:28 WC - Today's Visit Information Type of service Follow-up Visit (Physician/SOCIAL SCIENCE INSTRUCTOR ) Arrival Mode Ambulatory Transfer Assistance None Patient Identification Verified (Name & Yes ) Patient Requires Transmission-Based No Precautions Vital Signs Temperature (97.8 F-99.1 F) 97.6 F L Temperature Source Temporal Pulse Rate (60-100) 105 H Pulse Location Monitor Respiratory Rate (12-18) 16 Respiratory rate source Observation Oxygen Delivery Method Room Air Blood Pressure (90/60-120/80) 122/66 H Blood Pressure Mean (mm Hg) 84 Source Monitor Position Sitting Blood Pressure Location Left Arm History Since Last Visit- (Skip if this is Patient's initial visit) Have you changed medications since your No last visit? Any new allergies or adverse reactions No Had a fall/change in ADL's that may increase risk of falls Signs or symptoms of abuse and/or No neglect since last visit Have you been in the hospital since your No last visit? Has dressing in place as prescribed Yes Has compression in place as prescribed Yes Has offloadiing in place as prescribed N/A Experienced any changes in pain level or No management Left Footwear Regular Shoe Right Footwear Regular Shoe Pain Scale: 0-10 Numeric Is Patient Pain Free? Yes Lower Extremity Assessment/ Foot Assessment/ Toe Nail Assessment Left -Posterior Tibial Palpable -Dorsalis Pedis Palpable -Extremity Color -Hair Growth on Legs -Hair Growth on Toes -Temperature of Extremity -Capillary Refill -Dependent Rubor -Blanched when Elevated -Lipodermatosclerosis -Other Deformity -Prior Foot Ulcer -Charcot Joint -Prior Amputation -Thick -Discolored -Deformed -Improper Length & Hygeine Right -Posterior Tibial Palpable -Dorsalis Pedis Palpable -Extremity Color -Hair Growth on Legs -Hair Growth on Toes -Temperature of Extremity -Capillary Refill -Dependent Rubor -Blanched when Elevated -Lipodermatosclerosis -Other Deformity -Prior Foot Ulcer -Charcot Joint -Prior Amputation -Thick -Discolored -Deformed -Improper Length & Hygeine Neuropathy Assessment Feet - Top Side and Bottom Communication Assessment Preferred language Able to Read Able to Write Communication Tools Right Hearing Abillity Left Hearing Abillity Visual Assistive Devices Teaching Assessment Preferences Barriers to Learning Readiness To Learn Willingness to Engage in Self Management Activies Readiness to Engage in Self Management Activities Anxiety Level Cooperation Perception Interest in Health Problem Education Importance Does Patient Smoke tobacco or other substances Smoking Status Is Patient Diabetic Functional Assessment Recent Decline in Ability to Perform Teaching: Wound Center Dressing Your Wound -Person Taught *Wound/Skin Impairment -Person Taught (a) 1 - + WC - Nurse 1 - General Ulcer Measurement Start: 11/11/24 08:20 Freq: Status: Active Protocol: Activity Type Activity Date Activity User E-sign Co-sign Detail Recorded Client Recorded Date Recorded By Document 11/11/24 08:21 DL [id number] 11/11/24 08:37 DL Document 11/18/24 08:27 DL [id number] 11/18/24 08:36 DL Document 11/25/24 08:34 DL [id number] 11/25/24 08:41 DL Document 12/02/24 08:28 BMF [id number] 12/02/24 08:36 BMF 11/11/24 11/18/24 11/25/24 08:21 08:27 08:34 Wound Center Nurse 1 #2 L Walls Cluster -Combined with other wound -Current Size (cm) - Length 0.1 6.8 7.8 -Current Size (cm) - Width 0.1 1 2.1 -Current Size (cm) - Depth 0.1 0.1 0.1 -Total Square Cm 0.01 6.8 16.38 -Date of Last Picture (Recall this field) -Photo Taken Yes Yes Yes -Epithelialization -Tunneling -Undermining/Tunneling -Circular Undermining -Exudate Amt Small Small Medium -Exudate Type Serosanguineous Serosanguineous -Wound Margin Distinct, Distinct, Distinct, Outline Outline Outline Attached Attached Attached -Granulation Amt None Present (0 Medium (34-66%) Medium (34-66%) %) -Granulation Quality [place] Red -Slough/Fibrin -Necrosis Amt Small (1-33%) Medium (34-66%) Medium (34-66%) -Necrotic Tissue Type Adherent Slough Adherent Slough Adherent Slough -Structure Exposed N/A N/A N/A -Texture (Adry-wound Skin Appearance) Localized Edema Localized Edema Scarring ,Scarring ,Scarring -Moisture (Adry-wound Skin Appearance) No Abnormality No Abnormality No Abnormality -Color (Adry-wound Skin Appearance) No Abnormality No Abnormality No Abnormality -Temperature (Adry-wound Skin No Abnormality No Abnormality No Abnormality Appearance) (Pt Warm) (Pt Warm) (Pt Warm) -Tenderness on Palpation (Adry-wound No Skin Appearance) -Ulcer Cleansing Soap and Water Soap and Water Soap and Water -Foul Odor after Cleansing No No No -Anesthetic Used 4% Lidocaine 5% Lidocaine 5% Lidocaine Solution Gel Gel Right Calf (cm) 30 29.5 Right Ankle (cm) 18.5 19.8 Left Calf (cm) 33 30 Left Ankle (cm) 21 19.3 12/02/24 08:28 Wound Center Nurse 1 #2 L Walls Cluster -Combined with other wound No -Current Size (cm) - Length 8.1 -Current Size (cm) - Width 2.3 -Current Size (cm) - Depth 0.1 -Total Square Cm 18.63 -Date of Last Picture (Recall this 12/02/24 field) -Photo Taken Yes -Epithelialization Medium 34-66% -Tunneling No -Undermining/Tunneling No -Circular Undermining No -Exudate Amt Medium -Exudate Type Serosanguineous -Wound Margin Flat & Intact -Granulation Amt Medium (34-66%) -Granulation Quality Red -Slough/Fibrin Yes -Necrosis Amt Medium (34-66%) -Necrotic Tissue Type Adherent Slough -Structure Exposed -Texture (Adry-wound Skin Appearance) Assessed, Scarring -Moisture (Adry-wound Skin Appearance) Assessed -Color (Adry-wound Skin Appearance) Assessed -Temperature (Adry-wound Skin No Abnormality Appearance) (Pt Warm) -Tenderness on Palpation (Adry-wound No Skin Appearance) -Ulcer Cleansing Rinsed/ Irrigated with Saline -Foul Odor after Cleansing No -Anesthetic Used 5% Lidocaine Gel Right Calf (cm) Right Ankle (cm) Left Calf (cm) 29.8 Left Ankle (cm) 18.9 WC - Nurse 2 - General Ulcer CM Notes Start: 11/11/24 08:20 Freq: Status: Active Protocol: Activity Type Activity Date Activity User E-sign Co-sign Detail Recorded Client Recorded Date Recorded By Document 11/11/24 09:10 [facility] [id number] 11/11/24 09:27 [facility] Document 11/18/24 08:54 [facility] [id number] 11/18/24 09:04 [facility] Document 11/25/24 08:58 [facility] [id number] 11/25/24 09:04 [facility] Document 12/02/24 08:36 [facility] [id number] 12/02/24 08:44 [facility] 11/11/24 11/18/24 11/25/24 09:10 08:54 08:58 Wound Center Nurse 2 #2 L Mariano Cluster -Time 09:10 08:55 08:59 -Correct Patient Yes Yes Yes -Correct Side, Site, Position Yes Yes Yes -Correct Procedure Yes Yes Yes -Procedure Performed Yes Yes Yes -Type of Procedure Debridement Debridement Debridement -Clinical Debridement Subcutaneous Subcutaneous Subcutaneous -Tissue Removed Subcutaneous Subcutaneous Subcutaneous -Post Debridement (cm) - Length 9.4 9 8.4 -Post Debridement (cm) - Width 3.5 3 2.3 -Post Debridement (cm) - Depth 0.2 0.1 0.2 -Total Square (Post) (cm) 32.90 27 19.32 -Area of Debridement (cm) - Length 9.4 9 8.4 -Area of Debridement (cm) - Width 3.5 3 2.3 -Total Square (Area) (cm) 32.90 27 19.32 -Tunneling No No No -Undermining/Tunneling No No No -Circular Undermining No No No -Wound/Ulcer Outcome Not Healed Not Healed Not Healed -Ulcer Cleansing Rinsed/ Rinsed/ Rinsed/ Irrigated with Irrigated with Irrigated with Saline Saline Saline -Foul Odor after Cleansing No No No -Bioengineered Tissue No No No -Bleeding Controlled with Pressure Pressure Pressure -Treatment Response Procedure Procedure Procedure Tolerated Well Tolerated Well Tolerated Well -Debridement - Subq, 1st 20sq cm Yes Yes Yes -Debridement, SubQ, ea addt'l 20sq cm 1 or part thereof Pain Scale: 0-10 Numeric Is Patient Pain Free? Yes Yes Yes 12/02/24 08:36 Wound Center Nurse 2 #2 L Mariano Cluster -Time 08:36 -Correct Patient Yes -Correct Side, Site, Position Yes -Correct Procedure Yes -Procedure Performed Yes -Type of Procedure Debridement -Clinical Debridement Subcutaneous -Tissue Removed Subcutaneous -Post Debridement (cm) - Length 8.5 -Post Debridement (cm) - Width 2.3 -Post Debridement (cm) - Depth 0.2 -Total Square (Post) (cm) 19.55 -Area of Debridement (cm) - Length 8.5 -Area of Debridement (cm) - Width 2.3 -Total Square (Area) (cm) 19.55 -Tunneling No -Undermining/Tunneling No -Circular Undermining No -Wound/Ulcer Outcome Not Healed -Ulcer Cleansing Rinsed/ Irrigated with Saline -Foul Odor after Cleansing No -Bioengineered Tissue No -Bleeding Controlled with Pressure -Treatment Response Procedure Tolerated Well -Debridement - Subq, 1st 20sq cm Yes -Debridement, SubQ, ea addt'l 20sq cm or part thereof Pain Scale: 0-10 Numeric Is Patient Pain Free? Yes WC - Nurse 3 - General Ulcer D/C NN Start: 11/11/24 08:20 Freq: Status: Active Protocol: Activity Type Activity Date Activity User E-sign Co-sign Detail Recorded Client Recorded Date Recorded By Document 11/11/24 09:41 DL [id number] 11/11/24 09:42 DL Document 11/18/24 09:14 BM [id number] 11/18/24 09:15 BMF Document 11/25/24 09:14 BMF [id number] 11/25/24 09:15 BMF Document 12/02/24 08:44 BMF [id number] 12/02/24 08:44 BMF 11/11/24 11/18/24 11/25/24 09:41 09:14 09:14 Wound Care Center Nurse 3 #2 L Walls Cluster -Ulcer Cleansing Rinsed/ Rinsed/ Rinsed/ Irrigated with Irrigated with Irrigated with Saline Saline Saline -Foul Odor after Cleansing No No No -Primary Dressing Applied NonAdherent NonAdherent NonAdherent Contact Layer Contact Layer Contact Layer -Other Dressing Xerofrom xeroform, xeroform, adaptic adaptic, abd -Primary Dressing Covered/Secured with Dry Gauze & Dry Gauze & Dry Gauze & Roll Gauze, Roll Gauze, Roll Gauze, Secured with Secured with Secured with Tape Tape Tape -Other Covering ABD abd drsg per msl 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 Yes Yes Yes WC - Visit Discharge Discharge Condition Stable Stable Stable Ambulatory Status Ambulatory Ambulatory Ambulatory Transportation Private Auto Private Auto Private Auto 12/02/24 08:44 Wound Care Center Nurse 3 #2 L Walls Cluster -Ulcer Cleansing Rinsed/ Irrigated with Saline -Foul Odor after Cleansing No -Primary Dressing Applied Aquacel Extra -Other Dressing -Primary Dressing Covered/Secured with Dry Gauze & Roll Gauze, Secured with Tape -Other Covering -Aquacel Extra 2 LLE -Tubular Bandage Double Layer -Size of Tubigrip Used Size E -Size E ($) 2 Treatment Response Pain Scale: 0-10 Numeric Is Patient Pain Free? Yes WC - Visit Discharge Discharge Condition Stable Ambulatory Status Ambulatory Transportation [facility] Assessment/Plan Assessment/Plan (1) Nonhealing surgical wound: CODE(S): T81.89XA - Other complications of procedures, 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ssified, initial encounter QUALIFIERS: Encounter type: initial encounter Qualified Code(s): T81.89XA - Other complications of procedures, 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ssified, initial encounter PLAN: Wash left leg with Hibiclens or with antibacterial soap and water and apply Aquacel extra moistened then gauze ABD and Stacey to left leg with a double layer Tubigrip over top this is to be done daily. 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 lower leg with fat layer exposed
--- NOTE | 2024-12-03 09:23 | WC ---
PHOTO-LLE 12/02/24
== END 2024-12-03 23:59 | disposition home or self-care (01) ==
LOC: WC 08:30
PROVIDERS: PCP Internal Medicine; Referring Provider Internal Medicine; Visit Provider Nurse Practitioner
DX: L97.823 Non-pressure chronic ulcer of other part of left lower leg with necrosis of muscle (principal); L97.822 Non-pressure chronic ulcer of other part of left lower leg with fat layer exposed; J44.9 Chronic obstructive pulmonary disease, unspecified; T81.89XA Other complications of procedures, 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ssified, initial encounter; E78.00 Pure hypercholesterolemia, unspecified; T81.33XA Disruption of traumatic injury wound repair, initial encounter; Y84.8 Other medical procedures as the cause of abnormal reaction of the patient, or of later complication, without mention of misadventure at the time of the procedure; Z79.899 Other long term (current) drug therapy; L08.9 Local infection of the skin and subcutaneous tissue, unspecified
CPT/HCPCS: 11042; 11045; 87070; 87075; 87205; 99214; G0463

== ENCOUNTER 2024-12-23 08:30 | Outpatient (RCR) | payer OTHER, SELFPAY ==
[2024-12-09 08:36] VITALS: BP 162/79; PULSE 98; RESP 16; TEMP 36.5
--- NOTE | 2024-12-09 09:49 | PCM.WC.PN ---
History of Present Illness Date of Service: 12/09/24 Chief Complaint: Left lower walls from a fall on some wooden steps outside her house seen in the emergency room on October 22 History of Wound: 63-year-old white female that had sutures put in the dehisced and now she has a well-approximated wound but it has a lot of blackened scabs and peeling skin. Progress of Wound: Switching her from the Xeroform to Aquacel extra make a big difference. She is get a thin line now of open skin still very tender at the inferior portion of the wound but it is much smaller half the size that it was last week. We stopped using Adaptic because it was make it macerated also. So we will continue using the Aquacel extra and follow-up in 1 more week she only has about 1-2 more weeks left and it should be healed. Patient is being good about increasing her protein intake and wearing correct shoe so she does not fall. Subjective Subjective Patient is very pleased with outcomes Objective Data Objective Data Again no sign of infection healing very well half the size it was. Will continue using Aquacel extra. Vital Signs: Vital Signs Temp Pulse Resp BP 97.7 F L 98 16 162/79 H 12/09/24 08:36 12/09/24 08:36 12/09/24 08:36 12/09/24 08:36 Physical Exam Const oriented x3 General Appearance: cooperative Exam Limitations: no limitations HEENT normocephalic Face and Sinus: normal facial exam External Ear: external ears normal Eyes General Eye: normal appearance of both eyes Neck full ROM General: normal visual inspection Resp normal respiratory effort Effort and Inspection: able to speak in complete sentences Auscultation: clear to auscultation bilaterally Cardio regular rate and regular rhythm Palpation: normal PMI Rate: regular rate Rhythm: regular rhythm GI Palpation: no hepatosplenomegaly Back/Spine Cervical Spine: cervical ROM normal Thoracic Spine / Upper Back: normal to inspection Lumbar Spine / Lower Back: normal to inspection Extremity General Extremity: normal exam except as noted, edema and other findings Other Details: Wound on the left walls Skin Wounds: wounds noted Wound Narrative: Left walls well scabbed not healed Neuro oriented x3 Psych Appearance: grossly normal Speech: normal speech Thought Content: normal thought content Judgement: judgement good Debridement Note Debridement Note Wound debrided: Traumatic left walls wound Laterality: Left Type of Debridement: Excisional debridement Anesthesia Used: 5% Lidocaine Gel Depth: Down to and including healthy tissue and in the subcutaneous layer Percentage of wound debrided: 100 Instrument Used: 5mm curette Tissue Removed: Devitalized tissue and slough Severity: Fat Layer Exposed Amount of bleeding with debridement: Mild Bleeding Controlled with: Compression and gauze Patient tolerated procedure: Patient tolerated procedure well Post-Debridement Measurements and Additional Note: Post-Debridement Measurements/Treatment SLIM - Nurse 1 - General Ulcer Assessment Start: 12/09/24 08:36 Freq: Status: Active Protocol: LEX Activity Type Activity Date Activity User E-sign Co-sign Detail Recorded Client Recorded Date Recorded By Document 12/09/24 08:36 DL [id number] 12/09/24 08:43 DL 12/09/24 08:36 SLIM - Today's Visit Information Type of service 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 Any new allergies or adverse reactions No Had a fall/change in ADL's that may No increase risk of falls Signs or symptoms of abuse and/or No neglect since last visit Have you been in the hospital since your No last visit? Has dressing in place as prescribed Yes Has compression in place as prescribed Yes Has offloadiing in place as prescribed N/A Experienced any changes in pain level or No management Pain Scale: 0-10 Numeric Is Patient Pain Free? Yes - Nurse 1 - General Ulcer Measurement Start: 12/09/24 08:36 Freq: Status: Active Protocol: Activity Type Activity Date Activity User E-sign Co-sign Detail Recorded Client Recorded Date Recorded By Document 12/09/24 08:36 DL [id number] 12/09/24 08:43 DL 12/09/24 08:36 Wound Center Nurse 1 #2 L Walls Cluster -Current Size (cm) - Length 4.3 -Current Size (cm) - Width 0.5 -Current Size (cm) - Depth 0.1 -Total Square Cm 2.15 -Photo Taken Yes -Exudate Amt Small -Exudate Type Serosanguineous -Wound Margin Distinct, Outline Attached -Granulation Amt None Present (0 %) -Necrosis Amt Medium (34-66%) -Necrotic Tissue Type Adherent Slough -Structure Exposed N/A -Texture (Adry-wound Skin Appearance) Scarring -Moisture (Adry-wound Skin Appearance) No Abnormality -Color (Adry-wound Skin Appearance) No Abnormality -Temperature (Adry-wound Skin No Abnormality Appearance) (Pt Warm) -Ulcer Cleansing Soap and Water -Foul Odor after Cleansing No -Anesthetic Used 5% Lidocaine Gel WC - Nurse 2 - General Ulcer CM Notes Start: 12/09/24 08:36 Freq: Status: Active Protocol: Activity Type Activity Date Activity User E-sign Co-sign Detail Recorded Client Recorded Date Recorded By Document 12/09/24 08:54 DS [id number] 12/09/24 08:57 DS 12/09/24 08:54 Wound Center Nurse 2 -Time 08:54 -Correct Patient Yes -Correct Side, Site, Position Yes -Correct Procedure Yes -Procedure Performed Yes -Type of Procedure Debridement -Clinical Debridement Subcutaneous -Tissue Removed Subcutaneous -Post Debridement (cm) - Length 4.5 -Post Debridement (cm) - Width 1.5 -Post Debridement (cm) - Depth 0.2 -Total Square (Post) (cm) 6.75 -Area of Debridement (cm) - Length 4.5 -Area of Debridement (cm) - Width 1.5 -Total Square (Area) (cm) 6.75 -Tunneling No -Undermining/Tunneling No -Circular Undermining No -Wound/Ulcer Outcome Not Healed -Ulcer Cleansing Rinsed/ Irrigated with Saline -Foul Odor after Cleansing No -Bioengineered Tissue No -Bleeding Controlled with Pressure -Treatment Response Procedure Tolerated Well -Debridement - Subq, 1st 20sq cm Yes Pain Scale: 0-10 Numeric Is Patient Pain Free? No LLE -Description Throbbing -Intensity 5 -Duration (hours) Chronic -Pain Behavior Facial Grimacing -Pain Aggravating Factors Debridement -Alleviating Factors/Interventions Will continue to monitor WC - Nurse 3 - General Ulcer D/C NN Start: 12/09/24 08:36 Freq: Status: Active Protocol: Activity Type Activity Date Activity User E-sign Co-sign Detail Recorded Client Recorded Date Recorded By Document 12/09/24 09:10 ISREAL [id number] 12/09/24 09:10 ISREAL 12/09/24 09:10 Wound Care Center Nurse 3 #2 L Walls Cluster -Ulcer Cleansing Rinsed/ Irrigated with Saline -Primary Dressing Applied Aquacel Extra -Other Dressing ABD -Primary Dressing Covered/Secured with Dry Gauze & Roll Gauze, Secured with Tape -Aquacel Extra 1 LLE -Tubular Bandage Double Layer -Size of Tubigrip Used Size E -Size E ($) 2 Treatment Response Procedure Tolerated Well Pain Scale: 0-10 Numeric Is Patient Pain Free? Yes WC - Visit Discharge Discharge Condition Stable Ambulatory Status Ambulatory Transportation Private Auto Medication Reconcilliation completed & No provided to patient/care provider Clinical Summary of Care Provided Yes Assessment/Plan Assessment/Plan (1) Nonhealing surgical wound: CODE(S): T81.89XA - Other complications of procedures, 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ssified, initial encounter QUALIFIERS: Encounter type: initial encounter Qualified Code(s): T81.89XA - Other complications of procedures, 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ssified, initial encounter PLAN: Wash left leg with Hibiclens or with antibacterial soap and water and apply Aquacel extra moistened then gauze ABD and Stacey to left leg with a double layer Tubigrip over top this is to be done daily. Follow-up in 1 week (2) Traumatic ulcer of left lower leg: CODE(S): L97.929 - Non-pressure chronic ulcer of unspecified part of left lower leg with unspecified severity QUALIFIERS: Non-pressure ulcer stage: with fat layer exposed Qualified Code(s): L97.922 - Non-pressure chronic ulcer of unspecified part of left lower leg with fat layer exposed (3) Infected wound: CODE(S): T14.8XXA - Other injury of unspecified body region, initial encounter; L08.9 - Local infection of the skin and subcutaneous tissue, unspecified PLAN: Cultures came back negative
--- NOTE | 2024-12-10 09:44 | WC ---
PHOTO-LLE 12/09/24
[2024-12-16 08:40] VITALS: BP 144/77; PULSE 96; RESP 18; TEMP 36.4
--- NOTE | 2024-12-16 09:58 | PCM.WC.PN ---
History of Present Illness Date of Service: 12/16/24 Chief Complaint: Left lower walls from a fall on some wooden steps outside her house seen in the emergency room on October 22 History of Wound: 63-year-old white female that had sutures put in the dehisced and now she has a well-approximated wound but it has a lot of blackened scabs and peeling skin. Progress of Wound: Switching her from the Xeroform to Aquacel extra make a big difference. She is get a thin line now of open skin still very tender at the inferior portion of the wound but it is much smaller half the size that it was last week. We stopped using Adaptic because it was make it macerated also. So we will continue using the Aquacel extra. Patient is being good about increasing her protein intake and wearing correct shoe so she does not fall. The area that we are talking about now is more like sporadic open areas inside the wound it is not 1 area that is open but it makes it look like it is for the full length of the wound. Subjective Subjective Patient states she ran out of her Aquacel extra and had to use the Xeroform for the last 2 days. Objective Data Objective Data Small open superficial openings along the wound each 1 is just a round opening that has not healed yet that makes the wound look as big as it has been. Patient is tolerating the Aquacel extra she is doing well at caring for it is healing nicely with no signs of infection noted. We will continue using the Aquacel follow-up in 1 week Vital Signs: Vital Signs Temp Pulse Resp BP O2 Del Method 97.5 F L 96 18 144/77 H Room Air 12/16/24 08:40 12/16/24 08:40 12/16/24 08:40 12/16/24 08:40 12/16/24 08:40 Oxygen Delivery Method Room Air Lab / Micro Data Attestation: I reviewed the patient's lab results. Physical Exam Const oriented x3 General Appearance: cooperative Exam Limitations: no limitations HEENT normocephalic Face and Sinus: normal facial exam External Ear: external ears normal Eyes General Eye: normal appearance of both eyes Neck full ROM General: normal visual inspection Resp normal respiratory effort Effort and Inspection: able to speak in complete sentences Auscultation: clear to auscultation bilaterally Cardio regular rate and regular rhythm Palpation: normal PMI Rate: regular rate Rhythm: regular rhythm GI Palpation: no hepatosplenomegaly Back/Spine Cervical Spine: cervical ROM normal Thoracic Spine / Upper Back: normal to inspection Lumbar Spine / Lower Back: normal to inspection Extremity General Extremity: normal exam except as noted, edema and other findings Other Details: Wound on the left walls Skin Wounds: wounds noted Wound Narrative: Left walls well scabbed not healed Neuro oriented x3 Psych Appearance: grossly normal Speech: normal speech Thought Content: normal thought content Judgement: judgement good Debridement Note Debridement Note Wound debrided: Traumatic left walls wound Laterality: Left Type of Debridement: Excisional debridement Anesthesia Used: 5% Lidocaine Gel Depth: Down to and including healthy tissue and in the subcutaneous layer Percentage of wound debrided: 100 Instrument Used: 5mm curette Tissue Removed: Devitalized tissue and slough Severity: Fat Layer Exposed Amount of bleeding with debridement: Mild Bleeding Controlled with: Compression and gauze Patient tolerated procedure: Patient tolerated procedure well Post-Debridement Measurements and Additional Note: Post-Debridement Measurements/Treatment - Nurse 1 - General Ulcer Assessment Start: 12/09/24 08:36 Freq: Status: Active Protocol: LEX Activity Type Activity Date Activity User E-sign Co-sign Detail Recorded Client Recorded Date Recorded By Document 12/09/24 08:36 DL [id number] 12/09/24 08:43 DL Document 12/16/24 08:40 MT [id number] 12/16/24 08:46 MT 12/09/24 12/16/24 08:36 08:40 - Today's Visit Information Type of service Follow-up Visit Follow-up Visit (Physician/HOUSING DIRECTOR (Physician/HOUSING DIRECTOR ) ) Arrival Mode Ambulatory Ambulatory Transfer Assistance None Accompanied by brother Patient Identification Verified (Name & Yes Yes ) Patient Requires Transmission-Based No Precautions Safety Precautions Fall Prevention Vital Signs Temperature (97.8 F-99.1 F) 97.7 F L 97.5 F L Temperature Source Temporal Temporal Pulse Rate (60-100) 98 96 Pulse Location Monitor Monitor Respiratory Rate (12-18) 16 18 Respiratory rate source Observation Observation Oxygen Delivery Method Room Air Blood Pressure (90/60-120/80) 162/79 H 144/77 H Blood Pressure Mean (mm Hg) 106 99 Source Monitor Monitor Position Sitting Blood Pressure Location Left Arm History Since Last Visit- (Skip if this is Patient's initial visit) Have you changed medications since your No last visit? Any new allergies or adverse reactions No Had a fall/change in ADL's that may No increase risk of falls Signs or symptoms of abuse and/or No neglect since last visit Have you been in the hospital since your No last visit? Has dressing in place as prescribed Yes Yes Has compression in place as prescribed Yes Yes Has offloadiing in place as prescribed N/A Yes Experienced any changes in pain level or No Yes management Left Footwear Regular Shoe Right Footwear Regular Shoe Pain Scale: 0-10 Numeric Is Patient Pain Free? Yes Yes WC - Nurse 1 - General Ulcer Measurement Start: 12/09/24 08:36 Freq: Status: Active Protocol: Activity Type Activity Date Activity User E-sign Co-sign Detail Recorded Client Recorded Date Recorded By Document 12/09/24 08:36 DL [id number] 12/09/24 08:43 DL Document 12/16/24 08:40 MT [id number] 12/16/24 08:46 MT 12/09/24 12/16/24 08:36 08:40 Wound Center Nurse 1 #2 L Walls Cluster -Current Size (cm) - Length 4.3 6 -Current Size (cm) - Width 0.5 0.5 -Current Size (cm) - Depth 0.1 0.1 -Total Square Cm 2.15 3.0 -Date of Last Picture (Recall this 12/16/24 field) -Photo Taken Yes Yes -Tunneling No -Undermining/Tunneling No -Circular Undermining No -Exudate Amt Small Medium -Exudate Type Serosanguineous Serosanguineous -Wound Margin Distinct, Flat & Intact Outline Attached -Granulation Amt None Present (0 Large (67-100%) %) -Granulation Quality Pale,[place]keto -Necrosis Amt Medium (34-66%) Small (1-33%) -Necrotic Tissue Type Adherent Slough Adherent Slough -Structure Exposed N/A -Texture (Adry-wound Skin Appearance) Scarring Assessed -Moisture (Adry-wound Skin Appearance) No Abnormality Assessed -Color (Adry-wound Skin Appearance) No Abnormality Assessed -Temperature (Adry-wound Skin No Abnormality No Abnormality Appearance) (Pt Warm) (Pt Warm) -Tenderness on Palpation (Adry-wound No Skin Appearance) -Ulcer Cleansing Soap and Water Soap and Water -Foul Odor after Cleansing No No -Anesthetic Used 5% Lidocaine 5% Lidocaine Gel Gel Lower Limb Edema Present NA WC - Nurse 2 - General Ulcer CM Notes Start: 12/09/24 08:36 Freq: Status: Active Protocol: Activity Type Activity Date Activity User E-sign Co-sign Detail Recorded Client Recorded Date Recorded By Document 12/09/24 08:54 DS [id number] 12/09/24 08:57 DS Document 12/16/24 08:59 BMF [id number] 12/16/24 09:04 BMF 12/09/24 12/16/24 08:54 08:59 Wound Center Nurse 2 #2 L Walls Cluster -Time 08:54 09:00 -Correct Patient Yes Yes -Correct Side, Site, Position Yes Yes -Correct Procedure Yes Yes -Procedure Performed Yes Yes -Type of Procedure Debridement Debridement -Clinical Debridement Subcutaneous Subcutaneous -Tissue Removed Subcutaneous Subcutaneous -Post Debridement (cm) - Length 4.5 9 -Post Debridement (cm) - Width 1.5 3.5 -Post Debridement (cm) - Depth 0.2 0.1 -Total Square (Post) (cm) 6.75 31.5 -Area of Debridement (cm) - Length 4.5 9 -Area of Debridement (cm) - Width 1.5 3.5 -Total Square (Area) (cm) 6.75 31.5 -Tunneling No No -Undermining/Tunneling No No -Circular Undermining No No -Wound/Ulcer Outcome Not Healed Not Healed -Ulcer Cleansing Rinsed/ Rinsed/ Irrigated with Irrigated with Saline Saline -Foul Odor after Cleansing No No -Bioengineered Tissue No No -Bleeding Controlled with Pressure Pressure -Treatment Response Procedure Procedure Tolerated Well Tolerated Well -Debridement - Subq, 1st 20sq cm Yes Yes -Debridement, SubQ, ea addt'l 20sq cm 1 or part thereof Pain Scale: 0-10 Numeric Is Patient Pain Free? No Yes LLE -Description Throbbing -Intensity 5 -Duration (hours) Chronic -Pain Behavior Facial Grimacing -Pain Aggravating Factors Debridement -Alleviating Factors/Interventions Will continue to monitor WC - Nurse 3 - General Ulcer D/C NN Start: 12/09/24 08:36 Freq: Status: Active Protocol: Activity Type Activity Date Activity User E-sign Co-sign Detail Recorded Client Recorded Date Recorded By Document 12/09/24 09:10 RB [id number] 12/09/24 09:10 RB Document 12/16/24 09:12 BM [id number] 12/16/24 09:14 BMF 12/09/24 12/16/24 09:10 09:12 Wound Care Center Nurse 3 #2 L Walls Cluster -Ulcer Cleansing Rinsed/ Rinsed/ Irrigated with Irrigated with Saline Saline -Foul Odor after Cleansing No -Primary Dressing Applied Aquacel Extra Aquacel Extra -Other Dressing ABD abd -Primary Dressing Covered/Secured with Dry Gauze & Dry Gauze & Roll Gauze, Roll Gauze, Secured with Secured with Tape Tape -Aquacel Extra 1 3 LLE -Tubular Bandage Double Layer Double Layer -Size of Tubigrip Used Size E Size E -Size E ($) 2 2 Treatment Response Procedure Tolerated Well Pain Scale: 0-10 Numeric Is Patient Pain Free? Yes Yes WC - Visit Discharge Discharge Condition Stable Stable Ambulatory Status Ambulatory Ambulatory Transportation Private Auto Private Auto Accompanied by brother Medication Reconcilliation completed & No provided to patient/care provider Clinical Summary of Care Provided Yes Assessment/Plan Assessment/Plan (1) Nonhealing surgical wound: CODE(S): T81.89XA - Other complications of procedures, 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ssified, initial encounter QUALIFIERS: Encounter type: initial encounter Qualified Code(s): T81.89XA - Other complications of procedures, 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ssified, initial encounter PLAN: Wash left leg with Hibiclens or with antibacterial soap and water and apply Aquacel extra moistened then gauze ABD and Stacey to left leg with a double layer Tubigrip over top this is to be done daily. Follow-up in 1 week (2) Traumatic ulcer of left lower leg: CODE(S): L97.929 - Non-pressure chronic ulcer of unspecified part of left lower leg with unspecified severity QUALIFIERS: Non-pressure ulcer stage: with fat layer exposed Qualified Code(s): L97.922 - Non-pressure chronic ulcer of unspecified part of left lower leg with fat layer exposed (3) Infected wound: CODE(S): T14.8XXA - Other injury of unspecified body region, initial encounter; L08.9 - Local infection of the skin and subcutaneous tissue, unspecified PLAN: Cultures came back negative
--- NOTE | 2024-12-17 09:43 | WC ---
PHOTO-LEFT CRAWFORD 12/16/24
--- NOTE | 2024-12-17 09:45 | WC ---
PHOTO-LEFT CRAWFORD 12/17/24
--- NOTE | 2024-12-17 09:48 | WC ---
PHOTO-LEFT CRAWFORD 12/16/24
[2024-12-23 08:57] VITALS: BP 127/51; PULSE 92; RESP 18; TEMP 36.6
--- NOTE | 2024-12-23 11:38 | PN.PCM_ITS ---
History of Present Illness Date of Service: 12/23/24 Chief Complaint: Left lower walls from a fall on some wooden steps outside her house seen in the emergency room on October 22 History of Wound: 63-year-old white female that had sutures put in the dehisced and now she has a well-approximated wound but it has a lot of blackened scabs and peeling skin. Progress of Wound: Left leg is healed patient be discharged from the wound center Subjective Subjective He still complains of burning pain I told her padding it would be best with a sock or does not need to wear dressing but she can wear socks at a padded sock on that area. Objective Data Objective Data All the areas are closed patient tolerated treatments well patient be discharged from the wound center. Vital Signs: Vital Signs Temp Pulse Resp BP O2 Del Method 97.9 F 92 18 127/51 H Room Air 12/23/24 08:57 12/23/24 08:57 12/23/24 08:57 12/23/24 08:57 12/16/24 08:40 Oxygen Delivery Method Room Air Physical Exam Const oriented x3 General Appearance: cooperative Exam Limitations: no limitations HEENT normocephalic Face and Sinus: normal facial exam External Ear: external ears normal Eyes General Eye: normal appearance of both eyes Neck full ROM General: normal visual inspection Resp normal respiratory effort Effort and Inspection: able to speak in complete sentences Auscultation: clear to auscultation bilaterally Cardio regular rate and regular rhythm Palpation: normal PMI Rate: regular rate Rhythm: regular rhythm GI Palpation: no hepatosplenomegaly Back/Spine Cervical Spine: cervical ROM normal Thoracic Spine / Upper Back: normal to inspection Lumbar Spine / Lower Back: normal to inspection Extremity General Extremity: normal exam except as noted, edema and other findings Other Details: Wound on the left walls Skin Wounds: wounds noted Wound Narrative: Left walls well scabbed not healed Neuro oriented x3 Psych Appearance: grossly normal Speech: normal speech Thought Content: normal thought content Judgement: judgement good Debridement Note Debridement Note No debridement was completed: No debridement was completed today Post-Debridement Measurements and Additional Note: Post-Debridement Measurements/Treatment SLIM - Nurse 1 - General Ulcer Assessment Start: 12/09/24 08:36 Freq: Status: Active Protocol: LEX Activity Type Activity Date Activity User E-sign Co-sign Detail Recorded Client Recorded Date Recorded By Document 12/09/24 08:36 DL [id number] 12/09/24 08:43 DL Document 12/16/24 08:40 MT [id number] 12/16/24 08:46 MT Document 12/23/24 08:57 RB [id number] 12/23/24 08:59 RB 12/09/24 12/16/24 12/23/24 08:36 08:40 08:57 WC - Today's Visit Information Type of service Follow-up Visit Follow-up Visit Follow-up Visit (Physician/PAPER ROLLER (Physician/PAPER ROLLER (Physician/PAPER ROLLER ) ) ) Arrival Mode Ambulatory Ambulatory Ambulatory Transfer Assistance None None Accompanied by brother Patient Identification Verified (Name & Yes Yes Yes ) Patient Requires Transmission-Based No No Precautions Safety Precautions Fall Prevention Vital Signs Temperature (97.8 F-99.1 F) 97.7 F L 97.5 F L 97.9 F Temperature Source Temporal Temporal Temporal Pulse Rate (60-100) 98 96 92 Pulse Location Monitor Monitor Monitor Respiratory Rate (12-18) 16 18 18 Respiratory rate source Observation Observation Observation Oxygen Delivery Method Room Air Blood Pressure (90/60-120/80) 162/79 H 144/77 H 127/51 H Blood Pressure Mean (mm Hg) 106 99 76 Source Monitor Monitor Monitor Position Sitting Sitting Blood Pressure Location Left Arm Left Arm History Since Last Visit- (Skip if this is Patient's initial visit) Have you changed medications since your No No last visit? Any new allergies or adverse reactions No No Had a fall/change in ADL's that may No No increase risk of falls Signs or symptoms of abuse and/or No No neglect since last visit Have you been in the hospital since your No No last visit? Has dressing in place as prescribed Yes Yes Yes Has compression in place as prescribed Yes Yes Yes Has offloadiing in place as prescribed N/A Yes N/A Experienced any changes in pain level or No Yes No management Left Footwear Regular Shoe Regular Shoe Right Footwear Regular Shoe Regular Shoe Pain Scale: 0-10 Numeric Is Patient Pain Free? Yes Yes Yes - Nurse 1 - General Ulcer Measurement Start: 12/09/24 08:36 Freq: Status: Active Protocol: Activity Type Activity Date Activity User E-sign Co-sign Detail Recorded Client Recorded Date Recorded By Document 12/09/24 08:36 DL [id number] 12/09/24 08:43 DL Document 12/16/24 08:40 MT [id number] 12/16/24 08:46 MT Document 12/23/24 08:57 RB [id number] 12/23/24 08:59 RB 12/09/24 12/16/24 12/23/24 08:36 08:40 08:57 Wound Center Nurse 1 #2 L Walls Cluster -Combined with other wound No -Current Size (cm) - Length 4.3 6 0.1 -Current Size (cm) - Width 0.5 0.5 0.1 -Current Size (cm) - Depth 0.1 0.1 0.1 -Total Square Cm 2.15 3.0 0.01 -Date of Last Picture (Recall this 12/16/24 field) -Photo Taken Yes Yes Yes -Epithelialization Large 67-100% -Tunneling No -Undermining/Tunneling No -Circular Undermining No -Exudate Amt Small Medium None Present -Exudate Type Serosanguineous Serosanguineous -Wound Margin Distinct, Flat & Intact Distinct, Outline Outline Attached Attached -Granulation Amt None Present (0 Large (67-100%) Large (67-100%) %) -Granulation Quality Pale,Arbela Arbela -Slough/Fibrin No -Necrosis Amt Medium (34-66%) Small (1-33%) None Present (0 %) -Necrotic Tissue Type Adherent Slough Adherent Slough -Structure Exposed N/A N/A -Texture (Adry-wound Skin Appearance) Scarring Assessed Assessed, Scarring -Moisture (Adry-wound Skin Appearance) No Abnormality Assessed Assessed -Color (Adry-wound Skin Appearance) No Abnormality Assessed Assessed -Temperature (Adry-wound Skin No Abnormality No Abnormality No Abnormality Appearance) (Pt Warm) (Pt Warm) (Pt Warm) -Tenderness on Palpation (Adry-wound No No Skin Appearance) -Ulcer Cleansing Soap and Water Soap and Water Wound Cleanser -Foul Odor after Cleansing No No No -Anesthetic Used 5% Lidocaine 5% Lidocaine 5% Lidocaine Gel Gel Gel Lower Limb Edema Present NA Yes Left Calf (cm) 30.5 Left Ankle (cm) 18 WC - Nurse 2 - General Ulcer CM Notes Start: 12/09/24 08:36 Freq: Status: Active Protocol: Activity Type Activity Date Activity User E-sign Co-sign Detail Recorded Client Recorded Date Recorded By Document 12/09/24 08:54 DS [id number] 12/09/24 08:57 DS Document 12/16/24 08:59 [facility] [id number] 12/16/24 09:04 [facility] Document 12/23/24 09:13 [facility] [id number] 12/23/24 09:15 [facility] 12/09/24 12/16/24 12/23/24 08:54 08:59 09:13 Wound Center Nurse 2 #2 L Walls Cluster -Time 08:54 09:00 09:13 -Correct Patient Yes Yes -Correct Side, Site, Position Yes Yes -Correct Procedure Yes Yes -Procedure Performed Yes Yes No -Type of Procedure Debridement Debridement -Clinical Debridement Subcutaneous Subcutaneous -Tissue Removed Subcutaneous Subcutaneous -Post Debridement (cm) - Length 4.5 9 0 -Post Debridement (cm) - Width 1.5 3.5 0 -Post Debridement (cm) - Depth 0.2 0.1 0 -Total Square (Post) (cm) 6.75 31.5 0 -Area of Debridement (cm) - Length 4.5 9 0 -Area of Debridement (cm) - Width 1.5 3.5 0 -Total Square (Area) (cm) 6.75 31.5 0 -Tunneling No No -Undermining/Tunneling No No -Circular Undermining No No -Wound/Ulcer Outcome Not Healed Not Healed Healed- Epithelialized -Ulcer Cleansing Rinsed/ Rinsed/ Irrigated with Irrigated with Saline Saline -Foul Odor after Cleansing No No -Bioengineered Tissue No No -Bleeding Controlled with Pressure Pressure NA -Treatment Response Procedure Procedure Tolerated Well Tolerated Well -Debridement - Subq, 1st 20sq cm Yes Yes -Debridement, SubQ, ea addt'l 20sq cm 1 or part thereof Pain Scale: 0-10 Numeric Is Patient Pain Free? No Yes Yes LLE -Description Throbbing -Intensity 5 -Duration (hours) Chronic -Pain Behavior Facial Grimacing -Pain Aggravating Factors Debridement -Alleviating Factors/Interventions Will continue to monitor WC - Nurse 3 - General Ulcer D/C NN Start: 12/09/24 08:36 Freq: Status: Active Protocol: Activity Type Activity Date Activity User E-sign Co-sign Detail Recorded Client Recorded Date Recorded By Document 12/09/24 09:10 RB [id number] 12/09/24 09:10 RB Document 12/16/24 09:12 [facility] [id number] 12/16/24 09:14 BM[facility] Document 12/23/24 09:21 DL [id number] 12/23/24 09:22 DL 12/09/24 12/16/24 12/23/24 09:10 09:12 09:21 Wound Care Center Nurse 3 #2 L Walls Cluster -Ulcer Cleansing Rinsed/ Rinsed/ Not Cleansed Irrigated with Irrigated with Saline Saline -Foul Odor after Cleansing No -Primary Dressing Applied Aquacel Extra Aquacel Extra -Other Dressing ABD abd -Primary Dressing Covered/Secured with Dry Gauze & Dry Gauze & Roll Gauze, Roll Gauze, Secured with Secured with Tape Tape -Aquacel Extra 1 3 -Wound Comment(s) Healed. no dressing. Discharged. LLE -Tubular Bandage Double Layer Double Layer -Size of Tubigrip Used Size E Size E -Size E ($) 2 2 Treatment Response Procedure Tolerated Well Pain Scale: 0-10 Numeric Is Patient Pain Free? Yes Yes Yes WC - Visit Discharge Discharge Condition Stable Stable Stable Ambulatory Status Ambulatory Ambulatory Ambulatory Transportation Private Auto Private Auto Private Auto Accompanied by brother Medication Reconcilliation completed & No provided to patient/care provider Clinical Summary of Care Provided Yes Assessment/Plan Assessment/Plan (1) Nonhealing surgical wound: CODE(S): T81.89XA - Other complications of procedures, 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ssified, initial encounter QUALIFIERS: Encounter type: initial encounter Qualified Code(s): T81.89XA - Other complications of procedures, 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ssified, initial encounter PLAN: Discharge from the wound center follow-up as needed (2) Traumatic ulcer of left lower leg: CODE(S): L97.929 - Non-pressure chronic ulcer of unspecified part of left lower leg with unspecified severity QUALIFIERS: Non-pressure ulcer stage: with fat layer exposed Qualified Code(s): L97.922 - Non-pressure chronic ulcer of unspecified part of left lower leg with fat layer exposed (3) Infected wound: CODE(S): T14.8XXA - Other injury of unspecified body region, initial encounter; L08.9 - Local infection of the skin and subcutaneous tissue, unspecified PLAN: Cultures came back negative
--- NOTE | 2024-12-23 13:55 | WC ---
PHOTO-LLE 12/23/24
== END 2024-12-31 07:50 | disposition home or self-care (01) ==
LOC: WC 08:30
PROVIDERS: PCP Internal Medicine; Referring Provider Internal Medicine; Visit Provider Nurse Practitioner
DX: L97.822 Non-pressure chronic ulcer of other part of left lower leg with fat layer exposed (principal); T81.33XS Disruption of traumatic injury wound repair, sequela; Y84.8 Other medical procedures as the cause of abnormal reaction of the patient, or of later complication, without mention of misadventure at the time of the procedure; T14.8XXA Other injury of unspecified body region, initial encounter; L08.9 Local infection of the skin and subcutaneous tissue, unspecified
CPT/HCPCS: 11042; 11045; 99212; G0463

== ENCOUNTER → 2025-02-12 | Outpatient (CLI) | payer MEDICARE, SELFPAY | END | disposition home or self-care (01) | PROVIDERS: PCP Internal Medicine; Referring Provider Otolaryngology; Visit Provider Otolaryngology | DX: J32.9 Chronic sinusitis, unspecified (principal) | CPT/HCPCS: 87070; 87205 ==

== ENCOUNTER 2025-03-17 12:36 | Day surgery (SDC) | payer MEDICARE, SELFPAY ==
--- NOTE | 2025-03-10 08:21 | EKG12_ITS ---
Test Reason : PREOP Blood Pressure : */* mmHG Vent. Rate : 91 BPM Atrial Rate : 91 BPM P-R Int : 144 ms QRS Dur : 66 ms QT Int : 330 ms P-R-T Axes : 51 40 153 degrees QTcB Int : 405 ms Normal sinus rhythm Nonspecific ST and T wave abnormality Abnormal ECG Confirmed by Jakub Skelton ([id number]), editor house organ MANUEL GORE ([id number]) on 03/10/2025 12:40:31 PM Referred By: Wolf Jewell Confirmed By: Jakub Skelton
[2025-03-10 08:35] LABS: Hematocrit 43.4 % (37-47); Hemoglobin 13.8 g/dL (12.0-15.0); Mean Corp Hgb Conc 31.8 g/dL (32-36); Mean Corpuscular Volume 85.4 fL (81-99); Mean Platelet Vol. 9.5 fl (6.2-12.0); Platelet Count 324 K/mm3 (150-450); RBC Distribution Width CV 15.7 % (11.6-14.6); RBC Distribution Width SD 49.2 fl (35.1-43.9); Red Blood Count 5.08 M/mm3 (4.2-5.4); White Blood Count 7.6 K/mm3 (4.4-11.0)
[2025-03-10 08:37] LABS: Prothrombin Time (Protime)PT. 11.9 SECONDS (11.7-14.9)
[2025-03-10 08:38] LABS: Partial Thromboplast Time 24.4 Seconds (24.1-36.2)
[2025-03-10 09:26] LABS: Anion Gap 12 (5-15); BUN 12 mg/dL (4-19); BUN/Creat Ratio 12.1 RATIO (10-20); Calcium,Total 10.5 mg/dL (7.6-11.0); Carbon Dioxide 24.7 mmol/L (21.0-32.0); Chloride 108 mmol/L (98-108); Glucose 102 mg/dL (70-99); Potassium 4.5 mmol/L (3.3-5.1)
--- NOTE | 2025-03-10 15:10 | PAT.ANESEVAL ---
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 When Was Last Pacemaker Check QUESTION #4 FULL TEXT: You/Your Family Experience fever (hyperthermia) with Anesthesia Last Oral Intake Last Oral intake: Last Oral Intake NPO since Meds taken in AM with sips of water? Meds patient instructed to take am of surgery PONV PONV - corn picker: PONV - corn picker Female Yes 03/09/25 08:37 HX of Motion Sickness Yes 03/09/25 08:37 HX of N/V After Surgery Yes 03/09/25 08:37 Non-Smoker Yes 03/09/25 08:37 Duration of Surgery greater Yes 03/09/25 08:37 than 60 minutes Number of Risk Factors 5 03/09/25 08:37 PONV Score Severe Risk 03/09/25 08:37 Height & Weight Height & Weight: Anesthesia: Height & Weight Height 5 ft 03/01/25 09:43 Respiratory Assessment Respiratory Assessment - corn picker: Respiratory Tract Infection Hx - corn picker Hx Respiratory Tract Infection No 03/09/25 08:37 STOP Sleep Apnea STOP Sleep Apnea - corn picker: STOP Sleep Apnea - corn picker Hx Hypertension Yes 03/09/25 08:37 Hx Sleep Apnea No 03/09/25 08:37 CPAP No 06/08/24 14:54 BIPAP No 06/08/24 14:54 Do you snore loudly (louder Yes 03/09/25 08:37 than talking or can be heard Do you often feel tired/ Yes 03/09/25 08:37 fatigued/ sleepy during daytime? Has anyone observed you stop No 03/09/25 08:37 breathing during sleep? STOP Results Positive 03/09/25 08:37 QUESTION #5 FULL TEXT : Do you snore loudly (louder than talking or can be heard through closed doors)? Tobacco Use History Tobacco Use History - corn picker: Tobacco Use History - corn picker Tobacco Use Non-smoker 06/08/24 14:54 Smoking Status Never smoker 03/09/25 08:37 Hx Tobacco Use No 03/09/25 08:37 Years Smoking Packs Smoked per Day Smoking Cessation Date was within the last 15 years Hx Smoking Cessation Date Hx Smoking Cessation Counseling Hematologic Medial History Hematologic Hx - corn picker: Hematologic Medical Hx - [employer] employee Hx of Blood Transfusion No 03/09/25 08:37 Hx of Transfusion in last 3 No 03/09/25 08:37 Months Date of Last Transfusion (if within last 3 months) Ever experience any problems No 03/09/25 08:37 with transfusion(s)? Specify any problems Hx of Preganancy in last 3 N/A 03/09/25 08:37 Months Nurse Filling Out Transfusion TORRES 03/09/25 08:37 & Questions: Date: 03/09/25 03/09/25 08:37 Time: 08:53 03/09/25 08:37 Patient unable to answer at this time (ie. confused, unrespo /Reproduction History /Reproductive History - corn picker: /Reproductive Hx- corn picker Hx Now Gestational Age (in weeks): EDC: Hx Hx Para Hx Section SAB No 03/09/25 08:37 Does the father of the baby or his family experience fever w Father of the baby Malignant Hypertension history comment PFSH Medical History (Updated 03/10/25 @ 14:54 by Lizzy Davies) Anemia Easy bruising Injury of back Hiatal hernia Gastric reflux Heartburn Cardiology follow-up encounter Hypertension Palpitations Chest pain History of stress test History of deviated nasal septum Wears dentures History of steroid therapy Arthritis Bladder disease High cholesterol History of IBS Non-smoker Shortness of breath on exertion COPD (chronic obstructive pulmonary disease) Asthma Migraine Degenerative disc disease Fibromyalgia Depression Anxiety Home Medications Medication Instructions Recorded Last Taken Type albuterol sulfate 90 mcg/actuation 1 - 2 puff IH Q4H PRN PRN Asthma 07/09/14 04/07/18 08:00 History aerosol inhaler (Ventolin HFA) clonazepam 0.5 mg tablet 0.5 mg PO BID ANXIETY 07/09/14 09/21/24 History fluticasone propionate 50 1 spray DAILY PRN PRN Allergies 07/09/14 Unknown History mcg/actuation nasal spray,suspension lansoprazole 30 mg capsule,delayed 30 mg PO DAILY , 07/09/14 09/21/24 History release (Prevacid) simvastatin 40 mg tablet 40 mg PO QHS CHOLESTEROL 07/09/14 09/20/24 History loperamide 2 mg capsule 2 mg PO Q6H PRN PRN Diarrhea ##20 07/22/14 08/09/16 Rx fexofenadine 180 mg tablet 180 mg PO QHS . 03/26/17 09/20/24 History (Nan Allergy) imipramine HCl 50 mg tablet 50 mg PO QHS depression 01/07/18 09/20/24 History budesonide-formoterol HFA 160 2 puff inhalation BID 04/04/18 09/21/24 History mcg-4.5 mcg/actuation aerosol inhaler (Symbicort) calcium 200 mg (as 1 ea PO DAILY 04/04/18 09/20/24 History citrate)-vitamin D3 6.25 mcg (250 unit) tablet (Citracal-D3 Petites) ipratropium 0.5 mg-albuterol 3 mg 3 ml inhalation Q4H PRN BREATHING 04/04/18 Unknown History (2.5 mg base)/3 mL nebulization soln sucralfate 1 gram tablet 1 g PO BID 04/04/18 09/21/24 History montelukast 10 mg tablet 10 mg PO DAILY 02/06/22 09/20/24 History (Singulair) vibegron 75 mg tablet (Gemtesa) 75 mg PO DAILY 07/20/24 09/21/24 History estradiol 0.5 mg tablet 0.5 mg PO QDAY 01/14/25 Unknown History topiramate 100 mg tablet (Topamax) 100 mg PO QDAY 01/14/25 Unknown History Allergy/AdvReac Type Severity Reaction Status Date / Time aspirin Allergy Severe Anaphylaxis Verified 03/09/25 08:29 acetaminophen (From Vicodin) Allergy "MAKES MY Verified 03/09/25 08:29 CHEST HURT" azithromycin (From Zithromax) Allergy Itching Verified 03/09/25 08:29 budesonide Allergy Rash Verified 03/09/25 08:29 ciprofloxacin (From Cipro) Allergy Hives Verified 03/09/25 08:29 codeine Allergy Hives Verified 03/09/25 08:29 difluprednate (From Durezol) Allergy Rash Verified 03/09/25 08:29 doxycycline Allergy Rash Verified 03/09/25 08:29 hydrocodone bitartrate (From Allergy Hives Verified 03/09/25 08:29 Vicodin) ibuprofen (From Motrin) Allergy Shortness Verified 03/09/25 08:29 of breath ketorolac tromethamine (From Allergy Swelling Verified 03/09/25 08:29 Toradol) maprotiline Allergy Itching Verified 03/09/25 08:29 meperidine HCl (From Demerol) Allergy Rash Verified 03/09/25 08:29 mirtazapine Allergy Other Verified 03/09/25 08:29 Penicillins Allergy Rash Verified 03/09/25 08:29 prednisone Allergy Itching Verified 03/09/25 08:29 tramadol HCl (From Ultram) Allergy Chest Verified 03/09/25 08:29 tightness vancomycin Allergy Swelling Verified 03/09/25 08:29 acetylcysteine (From AdvReac ITCHING, Verified 03/09/25 08:29 Mucomyst) REDNESS citalopram hydrobromide AdvReac Nausea/Vom/ Verified 03/09/25 08:29 (From Celexa) Diarrhea escitalopram oxalate (From AdvReac Nausea/Vom/ Verified 03/09/25 08:29 Lexapro) Diarrhea nitrofurantoin (From AdvReac Diarrhea Verified 03/09/25 08:29 Macrobid) nitrofurantoin AdvReac Diarrhea Verified 03/09/25 08:29 macrocrystalline (From Macrobid) oxycodone AdvReac Hives Verified 03/09/25 08:29 pregabalin (From Lyrica) AdvReac Swelling Verified 03/09/25 08:29 sulfamethoxazole (From AdvReac Other Verified 03/09/25 08:29 Bactrim) trimethoprim (From Bactrim) AdvReac Unknown Verified 03/09/25 08:29 venlafaxine HCl (From AdvReac Nausea/Vom/ Verified 03/09/25 08:29 Effexor) Diarrhea Surgical History (Updated 03/09/25 @ 08:50 by Shaina Quinones) History of colectomy History of lumpectomy of left breast History of hysterectomy History of cholecystectomy History of nasal surgery Social History Smoking Status: Never smoker alcohol intake: former substance use type: does not use Audit: Pertinent Findings Pertinent Findings EKG Perinent findings: Normal sinus rhythm Nonspecific ST and T wave abnormality Abnormal ECG Confirmed by Jakub Skelton ([id number]), video editor MANUEL GORE ([id number]) on 03/10/2025 12:40:31 PM Recommendation Anesthesia Recommendation Anesthesia recommendation: OPTIMIZED for anesthesia
[2025-03-17] VITALS (10 sets, daily range): BP systolic 91–113; BP diastolic 35–77; PULSE 88–97; RESP 16; TEMP 36.4–36.6; O2SAT 92–100; BMI 28.4
[2025-03-17] MEDS: Lactated Ringers 1,000 ML 15 ML IV (13:14)
--- NOTE | 2025-03-17 14:08 | PRE.ANES_ITS ---
ASA Classification* ASA Classification ASA Classification: 3 (COPD/asthma, GERD, PONV, ANX, HTN ) Assessment & Plan Anesthesia* Anesthesia Assessment Anesthesia Assessment: Discussed sedation and/or anesthesia options, risks, benefits, and alternatives with patient/parents/legal guardian/POA. Questions invited. The patient/parents/legal guardian/POA seems to understand and agrees to proceed with anesthesia plan. Reviewed the physical assessment, medical history, allergy history and patient home medications list prior to surgery/procedure/anesthetic and documented any changes. Performed airway and anesthesia risk assessments. Duoneb preop for COPD Anesthesia Type Anesthesia Type: General History Source History Obtained from:: Patient and Chart Anesthesia Focused Assessment* Temperature: 97.9 F Pulse Rate: 88 Blood Pressure: 113/62 Respiratory Rate: 16 Pulse Ox: 96 Airway Assessment Mouth opens: 2 cm Mallampati Score: III Labs Anesthesia Preop lab: CBC WBC, (4.4-11.0) 7.6 K/mm3 03/10/25, 08:11 RBC, (4.2-5.4) 5.08 M/mm3 03/10/25, 08:11 Hgb, (12.0-15.0) 13.8 g/dL 03/10/25, 08:11 Hct, (37-47) 43.4 % 03/10/25, 08:11 Plt Count, (150-450) 324 K/mm3 03/10/25, 08:11 CHEMISTRY Potassium, (3.3-5.1) 4.5 mmol/L 03/10/25, 08:11 Sodium, (133-145) 145 mmol/L 03/10/25, 08:11 Magnesium, (1.8-2.4) 1.9 mg/dL 08/12/16, 05:04 BUN, (4-19) 12 mg/dL 03/10/25, 08:11 Creatinine, (0.70-1.20) 0.97 mg/dL 03/10/25, 08:11 Glucose, (70-99) 102 mg/dL H 03/10/25, 08:11 TSH, (0.358-3.74) 0.16 uIU/mL L 07/20/14, 11:30 COAG PT, (11.7-14.9) 11.9 SECONDS 03/10/25, 08:11 Pre-Assessment Diagnosis/Proposed Procedure Planned Operative Procedure(s): umbilical hernia repair with mesh Anesthesia History Anesthesia History - pyridine recovery operator: Anesthesia History - pyridine recovery operator Hx Hospitalization No 03/09/25 08:37 Any Problems With Anesthesia No 03/09/25 08:37 Cholinesterase deficiency No 03/09/25 08:37 You/Your Family Experience No 03/09/25 08:37 fever (hyperthermia) with Relationship Recent Exposure to Contagious No 09/21/24 08:12 Disease Does patient have nerve No 03/09/25 08:37 stimulator Patient instructed to have device shut off --Does patient have Pacemaker No 03/17/25 13:02 or ICD? When Was Last Pacemaker Check QUESTION #4 FULL TEXT: You/Your Family Experience fever (hyperthermia) with Anesthesia Last Oral Intake Last Oral intake: Last Oral Intake NPO since 11:30 03/17/25 13:02 Meds taken in AM with sips of Yes 03/17/25 13:02 water? Meds patient instructed to see med list 03/17/25 13:02 take am of surgery PONV PONV - pyridine recovery operator: PONV - pyridine recovery operator Female Yes 03/09/25 08:37 HX of Motion Sickness Yes 03/09/25 08:37 HX of N/V After Surgery Yes 03/09/25 08:37 Non-Smoker Yes 03/09/25 08:37 Duration of Surgery greater Yes 03/09/25 08:37 than 60 minutes Number of Risk Factors 5 03/09/25 08:37 PONV Score Severe Risk 03/09/25 08:37 Height & Weight Height & Weight: Anesthesia: Height & Weight Height 5 ft 03/17/25 13:02 Weight: 66 kg 03/17/25 13:02 Body Mass Index (BMI) 28.4 03/17/25 13:02 Respiratory Assessment Respiratory Assessment - pyridine recovery operator: Respiratory Tract Infection Hx - pyridine recovery operator Hx Respiratory Tract Infection No 03/09/25 08:37 STOP Sleep Apnea STOP Sleep Apnea - pyridine recovery operator: STOP Sleep Apnea - pyridine recovery operator Hx Hypertension Yes 03/09/25 08:37 Hx Sleep Apnea No 03/09/25 08:37 CPAP No 06/08/24 14:54 BIPAP No 06/08/24 14:54 Do you snore loudly (louder Yes 03/09/25 08:37 than talking or can be heard Do you often feel tired/ Yes 03/09/25 08:37 fatigued/ sleepy during daytime? Has anyone observed you stop No 03/09/25 08:37 breathing during sleep? STOP Results Positive 03/09/25 08:37 QUESTION #5 FULL TEXT : Do you snore loudly (louder than talking or can be heard through closed doors)? 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 Specify any problems Hx of Preganancy in last 3 N/A 03/09/25 08:37 Months Nurse Filling Out Transfusion TORRES 03/09/25 08:37 & Questions: Date: 03/09/25 03/09/25 08:37 Time: 08:53 03/09/25 08:37 Patient unable to answer at this time (ie. confused, unrespo /Reproduction History /Reproductive History - pyridine recovery operator: /Reproductive Hx- pyridine recovery operator Hx Now Gestational Age (in weeks): EDC: Hx Hx Para Hx Section SAB No 03/09/25 08:37 Does the father of the baby or his family experience fever w Father of the baby Malignant Hypertension history comment Active Medications Active Medications: Current Medications Generic Name Dose Route Start Last Admin Trade Name Freq PRN Reason Stop Dose Admin Clindamycin Phosphate 900 mg in 50 mls @ 75 mls/hr 03/17/25 14:15 Cleocin IV 03/17/25 14:54 INTRAOP ONE Lactated Ringer's 1,000 mls @ 15 mls/hr 03/17/25 13:00 11/12/25 13:14 IV 15 mls/hr .Q48H LUKE Administration PFSH Medical History Urinary tract infection, site not specified Anemia Easy bruising Injury of back Hiatal hernia Gastric reflux Heartburn Cardiology follow-up encounter Hypertension Palpitations Chest pain History of stress test History of deviated nasal septum Wears dentures History of steroid therapy Arthritis Bladder disease High cholesterol History of IBS Non-smoker Shortness of breath on exertion COPD (chronic obstructive pulmonary disease) Asthma Migraine Degenerative disc disease Fibromyalgia Depression Anxiety Home Medications Medication Instructions Recorded Last Taken Type albuterol sulfate 90 mcg/actuation 1 - 2 puff IH Q4H P RN PRN Asthma 07/09/14 04/07/18 08:00 History aerosol inhaler (Ventolin HFA) clonazepam 0.5 mg tablet 0.5 mg PO BID ANXIETY 03/17/25 07:00 History fluticasone propionate 50 1 spray DAILY PRN PRN Allerg ies 07/09/14 Unknown History mcg/actuation nasal spray,suspension lansoprazole 30 mg capsule,delayed 30 mg PO DAILY , 03/17/25 07:00 History release (Prevacid) simvastatin 40 mg tablet 40 mg PO QHS CHOLESTEROL 10/1809/20/24 History loperamide 2 mg capsule 2 mg PO Q6H PRN PRN Diarrhea ##20 07/22/14 08/09/16 Rx fexofenadine 180 mg tablet 180 mg PO QHS . 03/26/17 History (Nan Allergy) imipramine HCl 50 mg tablet 50 mg PO QHS depression 09/20/24 History budesonide-formoterol HFA 160 2 puff inhalation BID 09/21/24 History mcg-4.5 mcg/actuation aerosol inhaler (Symbicort) calcium 200 mg (as 1 ea PO DAILY 04/04/1809/20 History citrate)-vitamin D3 6.25 mcg (250 unit) tablet (Citracal-D3 Petites) ipratropium 0.5 mg-albuterol 3 mg 3 ml inhalation Q4H PRN BREATHING 04/04/18 Unknown History (2.5 mg base)/3 mL nebulization soln sucralfate 1 gram tablet 1 g PO BID 04/04/18 09/21/24 History montelukast 10 mg tablet 10 mg PO DAILY 02/06/2209/03 History (Singulair) vibegron 75 mg tablet (Gemtesa) 75 mg PO DAILY 5 03/17/25 07:00 History estradiol 0.5 mg tablet 0.5 mg PO QDAY 01/14/25 Unkn own History topiramate 100 mg tablet (Topamax) 100 mg PO QHS 01/14 Unknown History Allergy/AdvReac Type Severity Reaction Status Date / Time aspirin Allergy Severe Anaphylaxis Verified 03/17/25 12:59 acetaminophen (From Vicodin) Allergy "MAKES MY Verified 03/17/25 12:59 CHEST HURT" azithromycin (From Zithromax) Allergy Itching Verified 03/17/25 12:59 budesonide Allergy Rash Verified 03/17/25 12:59 ciprofloxacin (From Cipro) Allergy Hives Verified 03/17/25 12:59 codeine Allergy Hives Verified 03/17/25 12:59 difluprednate (From Durezol) Allergy Rash Verified 03/17/25 12:59 doxycycline Allergy Rash Verified 03/17/25 12:59 hydrocodone bitartrate (From Allergy Hives Verified 03/17/25 12:59 Vicodin) ibuprofen (From Motrin) Allergy Shortness Verified 03/17/25 12:59 of breath ketorolac tromethamine (From Allergy Swelling Verified 03/17/25 12:59 Toradol) maprotiline Allergy Itching Verified 03/17/25 12:59 meperidine HCl (From Demerol) Allergy Rash Verified 03/17/25 12:59 mirtazapine Allergy Other Verified 03/17/25 12:59 Penicillins Allergy Rash Verified 03/17/25 12:59 prednisone Allergy Itching Verified 03/17/25 12:59 tramadol HCl (From Ultram) Allergy Chest Verified 03/17/25 12:59 tightness vancomycin Allergy Swelling Verified 03/17/25 12:59 acetylcysteine (From AdvReac ITCHING, Verified 03/17/25 12:59 Mucomyst) REDNESS citalopram hydrobromide AdvReac Nausea/Vom/ Verified 03/17/25 12:59 (From Celexa) Diarrhea escitalopram oxalate (From AdvReac Nausea/Vom/ Verified 03/17/25 12:59 Lexapro) Diarrhea nitrofurantoin (From AdvReac Diarrhea Verified 03/17/25 12:59 Macrobid) nitrofurantoin AdvReac Diarrhea Verified 03/17/25 12:59 macrocrystalline (From Macrobid) oxycodone AdvReac Hives Verified 03/17/25 12:59 pregabalin (From Lyrica) AdvReac Swelling Verified 03/17/25 12:59 sulfamethoxazole (From AdvReac Other Verified 03/17/25 12:59 Bactrim) trimethoprim (From Bactrim) AdvReac Unknown Verified 03/17/25 12:59 venlafaxine HCl (From AdvReac Nausea/Vom/ Verified 03/17/25 12:59 Effexor) Diarrhea Surgical History History of colectomy History of lumpectomy of left breast History of hysterectomy History of cholecystectomy History of nasal surgery Social History Smoking Status: Never smoker alcohol intake: former substance use type: does not use Review of Systems (Anesthesia) ROS Narrative System reviewed and no additional complaints, except as documented. Physical Exam Const alert, oriented x3 and average body habitus Resp normal respiratory effort, normal air movement and clear to auscultation bilaterally Cardio regular rate, regular rhythm and no murmurs; Negative for diaphoretic
--- NOTE | 2025-03-17 14:15 | HERN_PTH ---
PATIENT: EZIO JEFFERS LOC: [facility] [place] U#:[id number] AGE/SX: 64/F ROOM: RE03/17/[address]: Dr. Wolf Jewell MD : 1960 BED: DIS: 03/17/2025 SPEC #: [id number] RECD: 03/18/25 07:11 STATUS: ANGELINA REQ #: [id number] IZABEL: 03/17/25 14:[address]: Wolf Jewell DEPT: SURGICAL PATHOLOGY RECD BY: Sohail Adelr ENTERED: 03/18/25 10:18 SP TYPE: Hernia OTHR DR: MD Dr. Norma Lee MD Tissues: A - HERNIA Procedures: Surgery Specimen Level II HEADER OPERATION: Hernia, open periumbilical repair PRE-OP DIAGNOSIS: Ventral hernia TISSUE SUBMITTED: A- Hernia sac MICROSCOPIC DIAGNOSIS A. Soft tissue, periumbilical region, hernia repair: - Benign fibromembranous tissue and adipose tissue, consistent with a hernia sac MICROSCOPIC DESCRIPTION Slides are reviewed. GROSS DESCRIPTION A. Received in formalin labeled with the patient's name and date of . Designated as " hernia sac" is a 3.1 x 2.9 x 0.7 cm portion of pink to yellow, semimembranous to soft and lobulated tissue. [facility] sections are submitted in 1 cassette. PA 03/18/2025 CPT:44875
--- NOTE | 2025-03-17 15:43 | PCM.HP.STD ---
HPI - General General Date of Admission: 03/17/25 Date of Service: 03/17/25 Chief Complaint: Periumbilical hernia HPI Narrative EZIO JEFFERS, is a 64 F who presents for elective repair of a periumbilical hernia. She states this has been getting larger and more symptomatic. She had a CAT scan back in November that showed a fat-containing umbilical hernia with a small defect. She presents today for repair [facility] Medical History Urinary tract infection, site not specified Anemia Easy bruising Injury of back Hiatal hernia Gastric reflux Heartburn Cardiology follow-up encounter Hypertension Palpitations Chest pain History of stress test History of deviated nasal septum Wears dentures History of steroid therapy Arthritis Bladder disease High cholesterol History of IBS Non-smoker Shortness of breath on exertion COPD (chronic obstructive pulmonary disease) Asthma Migraine Degenerative disc disease Fibromyalgia Depression Anxiety Home Medications Medication Instructions Recorded Last Taken Type albuterol sulfate 90 mcg/actuation 1 - 2 puff IH Q4H PRN PRN Asthma 07/09/14 04/07/18 08:00 History aerosol inhaler (Ventolin HFA) clonazepam 0.5 mg tablet 0.5 mg PO BID ANXIETY 07/09/14 03/17/25 07:00 History fluticasone propionate 50 1 spray DAILY PRN PRN Allergies 07/09/14 Unknown History mcg/actuation nasal spray,suspension lansoprazole 30 mg capsule,delayed 30 mg PO DAILY , 07/09/14 03/17/25 07:00 History release (Prevacid) simvastatin 40 mg tablet 40 mg PO QHS CHOLESTEROL 07/09/14 09/20/24 History loperamide 2 mg capsule 2 mg PO Q6H PRN PRN Diarrhea ##20 07/22/14 08/09/16 Rx fexofenadine 180 mg tablet 180 mg PO QHS . 03/26/17 09/20/24 History (Nan Allergy) imipramine HCl 50 mg tablet 50 mg PO QHS depression 01/07/18 09/20/24 History budesonide-formoterol HFA 160 2 puff inhalation BID 04/04/18 09/21/24 History mcg-4.5 mcg/actuation aerosol inhaler (Symbicort) calcium 200 mg (as 1 ea PO DAILY 04/04/18 09/20/24 History citrate)-vitamin D3 6.25 mcg (250 unit) tablet (Citracal-D3 Petites) ipratropium 0.5 mg-albuterol 3 mg 3 ml inhalation Q4H PRN BREATHING 04/04/18 Unknown History (2.5 mg base)/3 mL nebulization soln sucralfate 1 gram tablet 1 g PO BID 04/04/18 09/21/24 History montelukast 10 mg tablet 10 mg PO DAILY 02/06/22 09/20/24 History (Singulair) vibegron 75 mg tablet (Gemtesa) 75 mg PO DAILY 07/20/24 03/17/25 07:00 History estradiol 0.5 mg tablet 0.5 mg PO QDAY 01/14/25 Unknown History topiramate 100 mg tablet (Topamax) 100 mg PO QHS 01/14/25 Unknown History Allergy/AdvReac Type Severity Reaction Status Date / Time aspirin Allergy Severe Anaphylaxis Verified 03/17/25 12:59 acetaminophen (From Vicodin) Allergy "MAKES MY Verified 03/17/25 12:59 CHEST HURT" azithromycin (From Zithromax) Allergy Itching Verified 03/17/25 12:59 budesonide Allergy Rash Verified 03/17/25 12:59 ciprofloxacin (From Cipro) Allergy Hives Verified 03/17/25 12:59 codeine Allergy Hives Verified 03/17/25 12:59 difluprednate (From Durezol) Allergy Rash Verified 03/17/25 12:59 doxycycline Allergy Rash Verified 03/17/25 12:59 hydrocodone bitartrate (From Allergy Hives Verified 03/17/25 12:59 Vicodin) ibuprofen (From Motrin) Allergy Shortness Verified 03/17/25 12:59 of breath ketorolac tromethamine (From Allergy Swelling Verified 03/17/25 12:59 Toradol) maprotiline Allergy Itching Verified 03/17/25 12:59 meperidine HCl (From Demerol) Allergy Rash Verified 03/17/25 12:59 mirtazapine Allergy Other Verified 03/17/25 12:59 Penicillins Allergy Rash Verified 03/17/25 12:59 prednisone Allergy Itching Verified 03/17/25 12:59 tramadol HCl (From Ultram) Allergy Chest Verified 03/17/25 12:59 tightness vancomycin Allergy Swelling Verified 03/17/25 12:59 acetylcysteine (From AdvReac ITCHING, Verified 03/17/25 12:59 Mucomyst) REDNESS citalopram hydrobromide AdvReac Nausea/Vom/ Verified 03/17/25 12:59 (From Celexa) Diarrhea escitalopram oxalate (From AdvReac Nausea/Vom/ Verified 03/17/25 12:59 Lexapro) Diarrhea nitrofurantoin (From AdvReac Diarrhea Verified 03/17/25 12:59 Macrobid) nitrofurantoin AdvReac Diarrhea Verified 03/17/25 12:59 macrocrystalline (From Macrobid) oxycodone AdvReac Hives Verified 03/17/25 12:59 pregabalin (From Lyrica) AdvReac Swelling Verified 03/17/25 12:59 sulfamethoxazole (From AdvReac Other Verified 03/17/25 12:59 Bactrim) trimethoprim (From Bactrim) AdvReac Unknown Verified 03/17/25 12:59 venlafaxine HCl (From AdvReac Nausea/Vom/ Verified 03/17/25 12:59 Effexor) Diarrhea Surgical History History of colectomy History of lumpectomy of left breast History of hysterectomy History of cholecystectomy History of nasal surgery Social History Smoking Status: Never smoker alcohol intake: former substance use type: does not use Vital Signs Vital Signs Vital Signs: 03/17/25 13:02 03/17/25 13:02 03/17/25 14:11 Temperature 97.9 F 97.9 F Temperature Source Temporal Pulse Rate 88 88 Respiratory Rate 16 16 Respiratory Pattern Normal Blood Pressure 113/62 113/62 Blood Pressure Mean 79 Blood Pressure Source Monitor Blood Pressure Position Semi-Fowlers Blood Pressure Location Left Arm Pulse Ox 96 96 Oxygen Delivery Method Room Air Weight Weight: 145 lb 8.081 oz Body Mass Index (BMI) 28.4 Physical Exam Const alert, oriented x3 and no apparent distress GI GI Narrative: Periumbilical hernia remains essentially unchanged since last seen. This is a couple inches just superior to the umbilicus. No overlying erythema Results Lab / Micro Data 03/10/25 08:11 03/10/25 08:11 Assessment & Plan Assessment/Plan (1) Ventral hernia: PLAN: Plan The patient is a 64-year-old female with a periumbilical hernia just above the umbilicus. I recommended surgical repair with the possibility of mesh based on the fascial defect size. We discussed the details of the planned procedure including risk benefits and alternatives and she wishes to proceed. This will begin momentarily Charges/Coding Visit Charges Inpatient E&M: 88787 Init Hosp L3 D/C Safety Score for UGIB Assessment Giovanni-Blatchford Bleeding Score (GBS): Stratifies upper GI bleeding patients who are "low-risk" and candidates for outpatient management. Hemoglobin, BUN, Recent Vital Signs: Hgb 13.8 g/dL (12.0-15.0) 03/10/25 08:11 BUN 12 mg/dL (4-19) 03/10/25 08:11 Pulse Rate 88 Blood Pressure 113/62 Score Interpretation: Score of 0: A GBS of 0 is a “Low Risk” GI bleed, and is highly sensitive (99.6% in a 2007 retrospective study) for predicting which patients did not require any “medical intervention”: blood transfusion, endoscopy, or surgery. This was confirmed in a 2009 [facility] study where patients with a score of 0 were actually discharged and had no GI bleeding mortality at 6 month followup Score above 0: A GBS greater than zero suggests a “High Risk” GI bleed that is likely to require “medical intervention”: transfusion, endoscopy, or surgery. A higher GBS also correlated with a higher likelihood of needing intervention Scores >/= 6 are associated with >50% risk of needing intervention D/C Safety Score for LGIB Assessment Assessment Tool: Readmission and adverse event risk in patients with acute lower GI bleeding. Hemoglobin and Recent Vital Signs: Hgb 13.8 g/dL (12.0-15.0) 03/10/25 08:11 Pulse Rate 88 03/17/25 14:11 Blood Pressure 113/62 03/17/25 14:11 Score Interpretation: Probability Percentage of safe discharge (absence of rebleeding, blood transfusion, therapeutic intervention, 28 day readmission, or ) Score of 8 or below: Consider discharge, with appropriate precautions. Score of 9 or above: Discharge NOT recommended. Consider admission with further workup and resuscitation as necessary.
[2025-03-17] MEDS: Midazolam 2 MG/2 ML Syringe IV (15:56)
[2025-03-17] MEDS: Lidocaine 1% (5 ml sdv) 5 ML Vial IV (15:57)
[2025-03-17] MEDS: fentaNYL 100 MCG/2 ML Ampul IV (16:03)
[2025-03-17] MEDS: Bupiv/Epi 0.25% 30 ML Vial (16:28)
--- NOTE | 2025-03-17 16:32 | EX.PCM.DISCH ---
Discharge Instructions Diet Discharge Diet: Light diet - advance as tolerated Activity Discharge Activity: Return to Normal Activity and May Shower May shower in (days): 1 Ice area for (Minutes): 30 Lifting Restrictions: No lifting pushing or pulling more than 20 pounds for 6 weeks Additional Activity Instructions:: Wear abdominal binder as needed for comfort Dressing / Incision Call your doctor if your incision/area has: Continuous Slow Oozing, Sudden Increased Bleeding, Increased Pain/ Swelling, Increased Redness, Foul Smelling Discharge and Swelling at the incision site Call your doctor if you observe: Fever of 101 or Higher Remove Dressing in: 1 week Cleanse incision/area with: Soap & Water Drain: Suction Follow Up Care Please Follow Up With: Wolf Jewell MD When: 2 weeks. Please call office to schedule appointment Test Results: Test results from this visit will be discussed in further detail at your follow-up appointment, if applicable. Discharge Plan Admission Primary Reason for Your Visit: Ventral hernia repair Attending Provider: Wolf Jewell Primary Care Provider: Norma Pelaez Consulting Providers: Jong Boone Instructions Print Language: Luxembourgish Discharge Orders/Prescriptions Prescriptions: Continued estradiol 0.5 mg tablet 0.5 mg PO QDAY Rx Instructions: off 5 days; repeat cycle topiramate [Topamax] 100 mg tablet 100 mg PO QHS clonazepam 0.5 MG tablet 0.5 mg PO BID Patient Comments: anxiety simvastatin 40 MG tablet 40 mg PO QHS Patient Comments: cholesterol lansoprazole [Prevacid] 30 MG capsule 30 mg PO DAILY Patient Comments: gerd albuterol sulfate [Ventolin HFA] 18 GM HFA aerosol inhaler 1 - 2 puff IH Q4H PRN PRN (Reason: Asthma) Patient Comments: asthma fluticasone propionate 1 SPRAY spray,suspension 1 spray NASAL DAILY PRN PRN (Reason: Allergies) Patient Comments: allergies loperamide 2 MG capsule 2 mg PO Q6H PRN PRN (Reason: Diarrhea) Qty: 20 0RF Patient Comments: diarrhea fexofenadine [Nan Allergy] 180 MG tablet 180 mg PO QHS imipramine HCl 50 MG tablet 50 mg PO QHS sucralfate 1 GM tablet 1 g PO BID budesonide-formoterol [Symbicort] 1 INHALER inhaler 2 puff inhalation BID calcium citrate-vitamin D3 [Citracal-D3 Petites] 1 EACH tablet 1 ea PO DAILY ipratropium-albuterol 3 ML solution for nebulization 3 ml inhalation Q4H PRN (Reason: BREATHING) montelukast [Singulair] 10 mg Tablet 10 mg PO DAILY Gemtesa 75 mg tablet 75 mg PO DAILY Other Ambulatory Orders: 12 Lead EKG (Routine) Timeframe: 20250310 Location: None Selected Ordered By: Dr. Jong Boone Referrals / Follow Up: Norma Pelaez MD [Primary Care Provider, Internal Medicine] Disposition Disposition (needs filled in before D/C Order can be placed): Home, Self Care
--- NOTE | 2025-03-17 16:48 | PCM.POST.ANE ---
Anesthesia: Postop Eval I Current Vital Signs Temperature: 97.5 F Pulse Rate: 92 Blood Pressure: 111/50 Respiratory Rate: 16 Pulse Ox: 100 Oxygen Delivery Method: Simple Mask Oxygen Flow Rate (L/min): 6 Assessment Airway patent: Yes Spontaneous unlabored respirations: Yes Mental status: Awake and Calm nausea: No Vomiting: No Anesthesia Complication: No Fluid Hydration Crystalloid volume administer (ml): 1,600 (only 600 mL in OR, 1,000 mL infused in pre-op) Total IV fluid infused: 1,600 Progress Note Anesthesia document: Postop Eval 1 completed: Yes
--- NOTE | 2025-03-17 17:50 | POSTOPAN2_ITS ---
Anesthesia Postop Eval I Sum Postop Eval Completion status Anesthesia document: Postop Eval 1 completed: Yes Anesthesia Postop Eval I Summary Anesthesia Postop Eval I Summary: Anesthesia Postop Eval I: Assessment Summary Airway patent Yes 03/17/25 16:49 CABLE INSPECTOR.SKOBY Spontaneous unlabored Yes 03/17/25 16:49 CABLE INSPECTOR.REED respirations Mental status Awake,Calm 03/17/25 16:49 CABLE INSPECTOR.SKOBY nausea No 03/17/25 16:49 CABLE INSPECTOR.SKOBY Vomiting No 03/17/25 16:49 CABLE INSPECTOR.MIQUELOBZac Anesthesia Postop Eval I: Fluid Summary Crystalloid volume administer 1,600 - only 600 03/17/25 16:49 CABLE INSPECTOR.SKOBY (ml) mL in OR, 1,000 mL infused in pre-op Colloids volume administered ( ml) Blood Product volume administered (ml) Total IV fluid infused 1,600 03/17/25 16:49 CABLE INSPECTOR.REED Anesthesia Postop Eval I: Summary Notes Anesthesia Complication No 03/17/25 16:49 CABLE INSPECTOR.REED Anesthesia Complication Comment: Post-operative progress note Anesthesia: Postop Eval II Evaluation Mental status: Awake Pain Level: 0 nausea: No Vomiting: No Complications Anesthesia Complication: No
--- NOTE | 2025-03-17 17:50 | PCM.POSTANE2 ---
Anesthesia Postop Eval I Sum Postop Eval Completion status Anesthesia document: Postop Eval 1 completed: Yes Anesthesia Postop Eval I Summary Anesthesia Postop Eval I Summary: Anesthesia Postop Eval I: Assessment Summary Airway patent Yes 03/17/25 16:49 PHYSICAL THERAPY ASSISTANT.SKOBY Spontaneous unlabored Yes 03/17/25 16:49 PHYSICAL THERAPY ASSISTANT.REED respirations Mental status Awake,Calm 03/17/25 16:49 PHYSICAL THERAPY ASSISTANT.SKOBY nausea No 03/17/25 16:49 PHYSICAL THERAPY ASSISTANT.SKOBY Vomiting No 03/17/25 16:49 PHYSICAL THERAPY ASSISTANT.MIQUELOBZac Anesthesia Postop Eval I: Fluid Summary Crystalloid volume administer 1,600 - only 600 03/17/25 16:49 PHYSICAL THERAPY ASSISTANT.SKOBY (ml) mL in OR, 1,000 mL infused in pre-op Colloids volume administered ( ml) Blood Product volume administered (ml) Total IV fluid infused 1,600 03/17/25 16:49 PHYSICAL THERAPY ASSISTANT.REED Anesthesia Postop Eval I: Summary Notes Anesthesia Complication No 03/17/25 16:49 PHYSICAL THERAPY ASSISTANT.REED Anesthesia Complication Comment: Post-operative progress note Anesthesia: Postop Eval II Evaluation Mental status: Awake Pain Level: 0 nausea: No Vomiting: No Complications Anesthesia Complication: No
--- NOTE | 2025-03-20 08:19 | OP.PCM_ITS ---
Procedures Digestive 40xxx-49xxx: [id number] R AA HRN RCR 3-10 [facility] Operative Report (Standard) Operative Information Date of Procedure: 03/17/25 Pre-Operative Diagnosis: Periumbilical hernia Post-Operative Diagnosis: Same Surgery/Procedure Performed: Periumbilical hernia repair telephoner: Yes Manager Club: Carla Howe Tasks completed by first breaker feeder: Closing Additional research assistant professor?: No Type of Anesthesia: Local and MAC RN Documented Start/Stop Times: Operation Date: 03/17/25 14:15 Case Time Into Pre-Op 03/17/25 12:48 Out of Pre-Op 03/17/25 15:49 Anesthesia Start 03/17/25 15:52 Into Room 03/17/25 15:52 Procedure Start 03/17/25 16:10 Procedure End 03/17/25 16:35 Anesthesia End 03/17/25 16:43 Out of Room 03/17/25 16:43 Into Recovery 03/17/25 16:45 Out of Recovery 03/17/25 17:35 Into Phase II Recovery 03/17/25 17:36 Out of Phase II 03/17/25 19:04 Procedure Start Time: 16:10 Procedure Stop Time: 16:35 Select all DRAINS/GRAFTS/IMPLANTS that apply: None Special Medications: Preop antibiotics Estimated Blood Loss: 5 mL Specimen collected: Yes Description of specimen(s) removed: Hernia sac Description of surgery: The patient is a 64-year-old female who was recently seen through the office with a small bulge just above the umbilicus. An outpatient CT scan performed about 6 months ago at an outside facility revealed a fat-containing hernia with a fascial defect measuring only about 1.5 cm. Patient states that this has gotten slightly larger since that time of CT scan was performed. We discussed operative repair with either primary repair versus mesh. Patient would prefer to avoid mesh if at all possible. We discussed the details of the planned procedure including the risks benefits and alternatives. She wished to proceed. The patient was brought to the operating room today following informed consent. Preoperative antibiotics were given and a timeout was performed. The abdomen was then prepped and draped in the usual sterile manner. Local anesthetic was injected overlying the area of the planned incision. #15 blade was then used to make a linear skin incision. Electrocautery was then used to dissect down through the subcutaneous tissues down to the level of the fascial defect. The hernia itself measured about 3.25 cm. The hernia sac was excised and sent to pathology. The fascial defect was cleared. Fascial defect size was approximately 2.0 cm. All of the hernia contents were reduced. This was mainly omental fat. The fascial defect was closed primarily using a total of about 8 interrupted #1 Nurolon sutures. Once these were all tied down, this closed the fascial defect nicely. The wound was then copiously irrigated. The wound was then closed using 3-0 Vicryl in the subdermal layer. 4-0 Vicryl was then used to close the skin. Skin glue was applied as dressing along with an abdominal binder. She was awakened from anesthesia and taken to recovery in good condition. Surgical Findings: See operative note Complications Complications: No Admit VTE Documentation VTE Present on Admission: No VTE Mechan Device Prophylaxis: SCD's VTE Pharm Prophylaxis ordered?: No Reason prophylaxis not ordered: Treatment Not Indicated
== END 2025-03-17 19:04 | disposition home or self-care (01) ==
LOC: SDC 12:37 → AC 12:40
PROVIDERS: Anesthesiology; PCP Internal Medicine; Referring Provider Surgery; Visit Provider Surgery
DX: K42.9 Umbilical hernia without obstruction or gangrene (principal); J44.9 Chronic obstructive pulmonary disease, unspecified; E78.00 Pure hypercholesterolemia, unspecified; I10 Essential (primary) hypertension; K43.9 Ventral hernia without obstruction or gangrene; K21.9 Gastro-esophageal reflux disease without esophagitis
CPT/HCPCS: 49593; 00840; 36415; 80048; 85027; 85610; 85730; 88302; 93005; 94640; J2405

== ENCOUNTER → 2025-04-15 | Outpatient (CLI) | payer MEDICARE, SELFPAY ==
--- NOTE | 2025-04-15 07:44 | MRI_ITS ---
PROCEDURE: MRI ABD WITH AND W/O CONTRAST 04/15/2025 REASON FOR EXAM: PANCREAS TECHNIQUE: Procedure Code: [id number] Modality: MR Procedure: MRI ABD WITH AND W/O CONTRAST Multiplanar and multisequence images were obtained. CONTRAST: Clariscan VOLUME: 13 mL COMPARISON: February 09, 2025 FINDINGS: Liver: Mild, diffuse fatty liver. No iron deposition seen. Non cirrhotic. No mass. Biliary: Cholecystectomy. No biliary duct dilation. No choledocholithiasis. Pancreas: Mild glandular atrophy. No pancreatic duct dilation. At the posterior body there is a linear focus of cystic change likely a distended side branch or side-branch IPMN measuring 9 mm. A cyst at the body is 11 mm, and a smaller cyst is seen at the tail measuring 4.9 mm. These are uncomplicated without enhancement. Spleen: Normal Adrenals: Normal Kidneys: Subcentimeter cortical cysts are seen bilaterally. The majority are water signal. 1 of the posterior right upper pole is a small hemorrhagic cyst. Peritoneum / Retroperitoneum: No mass or fluid collection. Lymph Nodes: None appear enlarged. Major Vessels: Normal caliber Bones: Mild curvature lumbar spine to the left. MRI/MRI Abd WITH and W/O Contrast IMPRESSION: 1. Cholecystectomy 2. Multiple small cysts involving the pancreas. Side-branch IPMN versus tiny pseudocysts. These appear uncomplicated. ACR White Paper recommendations (Anoop, et al. J AM Hilaria Radiol 2017; 14: 911-923 ) suggest the following: Follow-up pancreas-protocol CT or MRI with contrast every year for 5 years, then every tw o years for a minimum of 9 years in total after the initial discovery of the cyst. 3. Bilateral simple renal cysts. Bosniak 1. Complicated right upper pole cys t is a hemorrhagic cyst. Bosniak 2. No follow-up required. Reading Location: [id number]
--- OUTSIDE RECORDS SUMMARY | 2025-04-15 07:56 | XMS RPT_ITS | CCD ---
Author Organization [facility] Care Team Providers Care Fractionating Still Operator Name Role Phone Lew Verduzco MD Primary Care Provider Dr. Lew Verduzco Primary Care Provider Dr. James Alanis Attending Provider Dr. Samuel Mazariegos Referring Provider [phone] Edda Oconnor MD Primary Care Provider ELIA JACOB Attending Unavailable ERMIAS SOLANO Referring Unavailable EDDA OCONNOR Primary Care Unavailable ERMIAS SOLANO Attending Unavailable ERMIAS SOLANO Referring Unavailable LEW VERDUZCO Primary Care Unavailable ERMIAS SOLANO Attending Unavailable LEW VERDUZCO Primary Care Unavailable Lew Verduzco MD Primary Care Provider Edda Oconnor MD Primary Care Provider Edwards CORE MAKER HELPER.WOVEN LABEL DESIGNER, Maria Teresa Unavailable Marcelino CORE MAKER HELPER.GEOSCIENCE LABORATORY TECHNICIAN, Nuno Unavailable Marcelino CORE MAKER HELPER.GEOSCIENCE LABORATORY TECHNICIAN, Nuno Unavailable Dr. Nory Coker DO Attending Provider Dr. Nory Coker DO Emergency Provider Dr. Edda Oconnor MD Primary Care Provider Jasmin Bryant Attending Provider Jasmin Bryant Referring Provider Chilango BLOOD, Dr. Sal Attending Provider [phone] Dr. Aryan Bianchi MD Attending Provider Arias BLOOD, Dr. aBeza Referring Provider Marcelino CORE MAKER HELPER.GEOSCIENCE LABORATORY TECHNICIAN, Nuno Unavailable [phone] Benigno BLOOD, Dr. Edda Pereira Primary Care Provider [phone] Edwards CORE MAKER HELPER.WOVEN LABEL DESIGNER, Maria Teresa Unavailable Benigno BLOOD, Dr. Edda Pereira Primary Care Provider [phone] Rk CANALES, Dr. Sow Emergency Provider Benigno BLOOD, Dr. Edda Pereira Primary Care Provider Arias BLOOD, Dr. Baeza Attending Provider Arias BLOOD, Dr. Baeza Referring Provider Rk CANALES, Dr. Sow Attending Provider Elvia BLOOD, Dr. James Attending Provider Judd ELECTRIC SPOT WELDER-C, Magdalena Attending Provider Judd ELECTRIC SPOT WELDER-C, Magdalena Other Provider Dax BLOOD, Dr. Hackett Referring Provider Elvia BLOOD, Dr. James Attending Provider Dr. Hugo Thomason DO Attending Provider Marcelino ELECTRIC SPOT WELDER-C, Nuno Referring Provider TAMIKO ARMENTA DO Attending Unavailable TALAMPAS, EDDA Primary Care Unavailable TALAMPAS, EDDA Attending Unavailable TALAMPAS, EDDA Primary Care Unavailable ANA CRISTINA URBINA Referring Unavailable TALAMPAS, EDDA Primary Care Unavailable MARCELINO, NUNO Referring Unavailable ANA CRISTINA URBINA Attending Unavailable MARY LOU NICHOLSON Referring Unavailable TALAMPAS, EDDA Primary Care Unavailable TALAMPAS, EDDA Primary Care Unavailable MARCELINO, NUNO Attending Unavailable TALAMPAS, EDDA Primary Care Unavailable MARCELINO, NUNO Attending Unavailable TALAMPAS, EDDA Primary Care Unavailable MELISSA SCHWAB Referring Unavailable TALAMPAS, EDDA Primary Care Unavailable MARCELINO, NUNO Referring Unavailable TALAMPAS, EDDA Primary Care Unavailable ANA CRISTINA URBINA Referring Unavailable TALAMPAS, EDDA Primary Care Unavailable TALAMPAS, EDDA Primary Care Unavailable TALAMPAS, EDDA Attending Unavailable SELF Referring Unavailable TALAMPAS, EDDA Primary Care Unavailable NUNO BENSON Referring Unavailable TALAMPAS, EDDA Primary Care Unavailable MARY LOU NICHOLSON Attending Unavailable ANA CRISTINA URBINA Referring Unavailable TALAMPAS, EDDA Primary Care Unavailable NUNO BENSON Referring Unavailable ANA CRISTINA URBINA Attending Unavailable TALAMPAS, EDDA Primary Care Unavailable ANA CRISTINA URBINA Referring Unavailable TALAMPAS, EDDA Primary Care Unavailable TALAMPAS, EDDA Referring Unavailable TALAMPAS, EDDA Primary Care Unavailable NUNO BENSON Attending Unavailable TALAMPAS, EDDA Primary Care Unavailable TALAMPAS, EDDA Referring Unavailable ANA CRISTINA URBINA Attending Unavailable TALAMPAS, EDDA Primary Care Unavailable MARY LOU NICHOLSON Referring Unavailable TALAMPAS, EDDA Primary Care Unavailable MARY LOU NICHOLSON Referring Unavailable TALAMPAS, EDDA Primary Care Unavailable NUNO BENSON Attending Unavailable MARY LOU NICHOLSON Referring Unavailable TALAMPAS, EDDA Primary Care Unavailable Aryan Bianchi Attending Unavailable Talampas, Edda D Primary Care Unavailable Aryan Bianchi Referring Unavailable Talampas, Edda D Primary Care Unavailable Jasmin Glass Referring Unavailable Jasmin Glass Attending Unavailable Talampas, Edda D Primary Care Unavailable Aryan Bianchi Referring Unavailable Aryan Bianchi Attending Unavailable Talampas, Edda D Primary Care Unavailable Talampas, Edda D Referring Unavailable Wolf Jewell Attending Unavailable Talampas, Edda D Primary Care Unavailable Talampas, Edda D Referring Unavailable Erika Gan Attending Unavailable Talampas, Edda D Referring Unavailable Talampas, Edda D Primary Care Unavailable Quan, Jasmin Attending Unavailable Talampas, Edda D Primary Care Unavailable Wanchristine Wolf A Referring Unavailable Wolf Jewell A Attending Unavailable Jong Boone Consulting Unavailable Wanek, Wolf A Consulting Unavailable Talampas, Edda D Primary Care Unavailable Doron Kee Attending Unavailable Hugo Thomason Attending Unavailable Nuno Benson NP Referring Unavailable Talampas, Edda D Primary Care Unavailable Lew Verduzco Referring Unavailable Judd ELECTRIC SPOT WELDER, Magdalena Attending Unavailable Talampas, Edda D Primary Care Unavailable Lew Verduzco Referring Unavailable Whaley ELECTRIC SPOT WELDER, Magdalena Attending Unavailable Talampas, Edda D Primary Care Unavailable Samuel Mazariegos Referring UnavailSamuel Marrufo Attending Unavailabl e Talampas, Edda D Primary Care Unavailable Talampas, Edda D Primary Care Unavailable Nory Coker Attending Unavailable Juanjose Beckman Attending Unavailabl e Talampas, Edda D Primary Care Unavailable Talampas, Edda D Primary Care Unavailable Wolf Jewell Referring Unavailable Wolf Jewell Attending Unavailable Jong Boone Consulting Unavailable Talampas, Edda D Primary Care Unavailable Aryan Bianchi Referring Unavailable Aryan Bianchi Attending Unavailable Allergies Allergy Classification Reported Allergen(s) Allergy Type Date of Onset Reaction(s) Facility (20 sources) Acetaminophen; Translations: [ACETAMINOPHEN] Drug Allergy 01-03-20 06 Intolerance, Shortness of Breath [facility] Work Phone: (20 sources) Acetaminophen / HYDROcodone; Translations: [HYDROCODONE-ACETAM INOPHEN] Drug Allergy 02-16-20 05 [facility] (20 sources) Acetylcysteine; Translations: [ACETYLCYSTEINE] Drug Allergy 10-31-19 13 Cough [facility] (20 sources) Azithromycin; Translations: [AZITHROMYCIN] Drug Allergy 01-20-20 05 Itching [facility] Work Phone: (20 sources) Budesonide; Translations: [BUDESONIDE] Drug Allergy 06-26-19 19 Rash [facility] Work Phone: (20 sources) cefdinir; Translations: [CEFDINIR] Drug Allergy 12-21-19 20 Itching [facility] Work Phone: (20 sources) Citalopram; Translations: [CITALOPRAM HYDROBROMIDE] Drug Allergy 07-26-19 06 GI Upset [facility] Work Phone: (20 sources) Codeine; Translations: [CODEINE] Drug Allergy 02-16-20 05 [facility] (20 sources) difluprednate; Translations: [DIFLUPREDNATE] Drug Allergy 03-04-20 14 Rash [facility] Work Phone: (20 sources) Doxycycline; Translations: [DOXYCYCLINE] Drug Allergy 06-04-19 06 Rash, asthma [facility] Work Phone: (20 sources) Escitalopram; Translations: [ESCITALOPRAM OXALATE] Drug Allergy 07-26-19 06 GI Upset [facility] Work Phone: (20 sources) Fosfomycin; Translations: [FOSFOMYCIN] Drug Allergy 05-18-19 22 Diarrhea [facility] Work Phone: (20 sources) Ibuprofen; Translations: [IBUPROFEN] Drug Allergy 07-26-19 06 Shortness of Breath [facility] Work Phone: (20 sources) Ketorolac; Translations: [KETOROLAC TROMETHAMINE] Drug Allergy 04-06-20 11 Swelling [facility] Work Phone: (20 sources) Maprotiline; Translations: [MAPROTILINE] Drug Allergy 05-16-19 10 Itching [facility] (20 sources) Meperidine; Translations: [MEPERIDINE (PF)] Drug Allergy 01-04-20 06 Rash [facility] Work Phone: (20 sources) Mirtazapine; Translations: [MIRTAZAPINE] Drug Allergy 11-18-19 14 Other: See Comments [facility] Work Phone: Comment on above: made hands shake (20 sources) NITROFURANTOIN, MACROCRYSTALS / Nitrofurantoin, Monohydrate; Translations: [NITROFURANTOIN MONOHYD/M-CRYST] Drug Allergy 06-26-19 19 Diarrhea [facility] Work Phone: (20 sources) oxyCODONE; Translations: [OXYCODONE] Drug Allergy 01-18-20 11 Shortness of Breath [facility] Work Phone: (20 sources) Penicillins; Translations: [PENICILLINS] Propensity to adverse reactions 01-10-20 05 Hives [facility] Work Phone: (20 sources) predniSONE; Translations: [PREDNISONE] Drug Allergy 07-31-19 07 Itching [facility] Work Phone: (20 sources) pregabalin; Translations: [PREGABALIN] Drug Allergy 04-10-20 11 Mental Status Change [facility] (20 sources) Salicylic Acid; Translations: [SALICYLATES] Drug Allergy 05-24-19 07 Swelling, Shortness of Breath [facility] Work Phone: (20 sources) Sulfamethoxazole / Trimethoprim; Translations: [SULFAMETHOXAZOLE-T RIMETHOPRIM] Drug Allergy 07-26-19 06 [facility] Work Phone: (20 sources) traMADol; Translations: [TRAMADOL HCL] Drug Allergy 07-26-19 06 Other: See Comments [facility] Work Phone: (20 sources) Vancomycin; Translations: [VANCOMYCIN] Drug Allergy 01-22-20 15 Other: See Comments [facility] (20 sources) venlafaxine; Translations: [VENLAFAXINE] Drug Allergy 07-09-19 12 GI Upset [facility] (20 sources) Environmental allergies [Other] Propensity to adverse reactions 02-26-20 06 [facility] (20 sources) Penicillins Propensity to adverse reactions 01-10-20 05 [facility] Work Phone: (20 sources) Salicylate product Drug Allergy 05-24-19 07 Swelling, Shortness of Breath [facility] Work Phone: (13 sources) Aspirin; Translations: [aspirin] Drug Allergy 04-04-20 18 Anaphylaxis, SOB, swelling [facility] Comment on above: lips swell, can't b reathe (12 sources) Ciprofloxacin Drug Allergy 08-30-19 21 [facility] (13 sources) HYDROcodone; Translations: [hydrocodone bitartrate] Drug Allergy 08-30-19 21 [facility] (13 sources) Meperidine; Translations: [meperidine HCl] Drug Allergy 08-30-19 21 Rash [facility] (12 sources) Nitrofurantoin Drug Allergy 08-30-19 21 Diarrhea [facility] (12 sources) Sulfamethoxazole Drug Allergy 08-30-19 21 Other [facility] Comment on above: pt can't remember rx n (12 sources) Trimethoprim Drug Allergy 08-30-19 21 Unknown [facility] (13 sources) venlafaxine; Translations: [venlafaxine HCl] Drug Allergy 08-30-19 21 Nausea/Vom/Chasity rrhea [facility] (13 sources) nitrofurantoin macrocrystalline; Translations: [nitrofurantoin macrocrystalline] Propensity to adverse reactions 08-30-19 21 Diarrhea [facility] (11 sources) Penicillins Allergy to substance 08-30-19 21 Rash [facility] (20 sources) zolpidem; Translations: [ZOLPIDEM] Drug Allergy 04-07-20 22 Intolerance [facility] Work Phone: (1 source) OTHER; Translations: [OTHER] Propensity to adverse reactions (disorder) 02-26-20 06 [facility] Other [place] [facility] (20 sources) Amoxicillin; Translations: [amoxicillin] Drug Allergy 01-18-20 23 Rash [facility] Work Phone: (20 sources) Penicillins Drug Allergy 01-10-20 05 Hives [facility] (19 sources) Cephalexin; Translations: [cephalexin] Drug Allergy 10-27-19 25 Intolerance [facility] (1 source) Citalopram; Translations: [citalopram] Drug Allergy GI upset [facility] (1 source) Escitalopram; Translations: [escitalopram] Drug Allergy GI upset [facility] (1 source) Ketorolac; Translations: [ketorolac] Drug Allergy swelling [facility] (1 source) Meperidine; Translations: [meperidine] Drug Allergy rash [facility] (1 source) Penicillin; Translations: [penicillins] Drug Allergy [facility] Comment on above: allergy skin tests t o pencillin were negative. The pt took a test dose of amoxicillin and tolerated this without adverse reaction. per [facility] paper work provided by pt (1 source) traMADol; Translations: [tramadol] Drug Allergy chest pain [facility] (1 source) Acetaminophen Drug Allergy 03-17-20 25 [facility] (1 source) Acetylcysteine Drug Allergy 03-17-20 [facility] (1 source) Aspirin Drug Allergy 03-17-20 [facility] (1 source) Azithromycin Drug Allergy 03-17-20 [facility] (1 source) Budesonide Drug Allergy 03-17-20 [facility] (1 source) Ciprofloxacin Drug Allergy 03-17-20 [facility] (1 source) Citalopram Drug Allergy 03-17-20 [facility] (1 source) Codeine Drug Allergy 03-17-20 [facility] (1 source) difluprednate Drug Allergy 03-17-20 [facility] (1 source) Doxycycline Drug Allergy 03-17-20 [facility] (1 source) Escitalopram Drug Allergy 03-17-20 [facility] (1 source) Ibuprofen Drug Allergy 03-17-20 [facility] (1 source) Ketorolac Drug Allergy 03-17-20 [facility] (1 source) Maprotiline Drug Allergy 03-17-20 [facility] (1 source) Mirtazapine Drug Allergy 03-17-20 [facility] (1 source) Nitrofurantoin Drug Allergy 03-17-20 [facility] (1 source) oxyCODONE Drug Allergy 03-17-20 [facility] (1 source) Penicillins Drug allergy (disorder) 03-17-20 [facility] (1 source) predniSONE Drug Allergy 03-17-20 [facility] (1 source) pregabalin Drug Allergy 03-17-20 [facility] (1 source) Sulfamethoxazole Drug Allergy 03-17-20 [facility] (1 source) traMADol Drug Allergy 03-17-20 [facility] (1 source) Trimethoprim Drug Allergy 03-17-20 [facility] (1 source) Vancomycin Drug Allergy 03-17-20 [facility] Medications Current Medications Medication Drug Class(es) Dates Sig (Normalized) Sig (Original) albuterol 0.417 mg/ml inhalation solution (20 sources) beta2-Adrenergic Agonist Start: 07-16-2022 End: 11-20-2024 Albuterol Sulfate 1.25 mg/3 mL nebulizer solution Indications: Asthma with chronic obstructive pulmonary disease (COPD) (HCC) Use 1 ampule via nebulizer every 6 hours as needed for wheezing/shortness of breath. 120 mL 5 11/20/2024 Active Start: 08-29-2020 End: 01-23-2024 take 2 puff(s) by inhalation every four hours as needed for wheezing albuterol HFA (VENTOLIN HFA) 90 mcg/actuation inhaler Indications: Asthma with chronic obstructive pulmonary disease (COPD) ([facility]) Inhale 2 Puffs as instructed every 4 hours as needed for wheezing/shortness of breath. 18 g 5 01/23/2024 Active Start: 07-09-2014 Albuterol Sulf ate (Ventolin Hfa) 18 GM HFA aerosol inhaler Active 1 - 2 NMA IH EVERY 4 HOURS NEEDED as needed for Asthma July 09, 2014 1:00am Start: 07-09-2014 take 1 puff(s) by in halation every four hours as needed Albuterol Sulfate (Ventolin Hfa) 18 GM HFA aerosol inhaler Active 1 - 2 PUFF IH EVERY 4 HOURS NEEDED July 09, 2014 12:00am Start: 07-09-2014 take 1 puff(s) by in halation every four hours as needed Albuterol Sulfate (Ventolin Hfa) 18 GM HFA aerosol inhaler Active 1 - 2 PUFF IH EVERY 4 HOURS NEEDED July 09, 2014 1:00am Start: 07-09-2014 take 1 puff(s) by in halation every four hours as needed Albuterol Sulfate (Ventolin Hfa) 18 GM Hfa.Aer.Ad Active 1 - 2 PUFF IH EVERY 4 HOURS NEEDED July 09, 2014 1:00am Comment on above: Inhale 2 Puffs as in structed every 4 hours as needed for Wheezing/Shortness of Breath. Use 1 Ampule via neb ulizer every 6 hours as needed for wheezing/shortness of breath. albuterol 0.833 mg/ml / ipratropium bromide 0.167 mg/ml inhalation solution (20 sources) Anticholinergic, beta2-Adrenergic Agonist Start: End: take 1 mL by inhalation every four hours as needed Ipratropium-Albute rol 3 ML solution for nebulization Active 3 mL INHALATION Q4H as needed for BREATHING April 04, 2018 3:36pm Start: 04-04-2018 take 1 mL by inhalat ion every four hours Ipratropium-Albuterol Active 3 ML INHALATION Q4H April 04, 2018 2:36pm Start: 01-07-2018 End: 04-04-2018 take 1 mL by inhalation every eight hours Ipratropium-Albuterol 3 ML solution for nebulization Discontinued 3 mL INHALATION Q8H 30 0 January 07, 2018 12:00am April 04, 2018 3:38pm Start: 01-07-2018 End: 04-04-2018 take 1 mL by inhalation every eight hours Ipratropium-Albuterol Discontinued 3 ML INHALATION Q8H January 06, 2018 11:00pm April 04, 2018 2:38pm Comment on above: Inhale 3 mL as instr ucted every 4 hours as needed. amoxicillin 875 mg oral tablet (5 sources) Penicillin-class Antibacterial Start: 3 End: take 1 tablet by mouth twice daily amoxicillin (AMOXIL) 875 mg tablet Take 1 tablet by mouth twice daily for 10 days. 20 tablet 0 01/08/2023 01/18/2023 Active Start: 01-08-2023 End: 01-08-2023 amoxicillin 250 mg oral liqu id (AMOXIL) Comment on above: Take 1 tablet by james th twice daily for 10 days. Budesonide / formoterol (20 sources) Corticosteroid, beta2-Adrenergic Agonist Start: 03-24-2024 take 2 puff(s) by inhalation twice daily budesonide-formoter ol (SYMBICORT) 160-4.5 mcg/actuation inhaler Inhale 2 Puffs as instructed two times a day. 10.2 g 03/24/2024 Active Start: 12-04-2023 End: 03-24-2024 take 2 puff(s) by inhalation twice daily budesonide-formoterol (SYMBICORT) 160-4.5 mcg/actuation inhaler Indications: Asthma, moderate persistent, well-controlled Inhale 2 Puffs as instructed twice daily. 10.2 g 12/04/2023 03/24/2024 Discontinued Start: 12-04-2023 take 2 puff(s) by in halation twice daily budesonide-formoterol (SYMBICORT) 160-4.5 mcg/actuation inhaler Indications: Asthma, moderate persistent, well-controlled Inhale 2 Puffs as instructed twice daily. 10.2 g 12/04/2023 Active Start: 11-19-2022 End: 12-04-2023 take 2 puff(s) by inhalation twice daily budesonide-formoterol (SYMBICORT) 160-4.5 mcg/actuation inhaler Indications: Asthma, moderate persistent, well-controlled Inhale 2 Puffs as instructed twice daily. 1 Each 11/19/2022 12/04/2023 Discontinued Start: 11-19-2022 take 2 puff(s) by in halation twice daily budesonide-formoterol (SYMBICORT) 160-4.5 mcg/actuation inhaler Indications: Asthma, moderate persistent, well-controlled Inhale 2 Puffs as instructed twice daily. 1 Each 11/19/2022 Active Start: 10-31-2021 End: 11-19-2022 take 2 puff(s) by inhalation twice daily budesonide-formoterol (SYMBICORT) 160-4.5 mcg/actuation inhaler Indications: Asthma, moderate persistent, well-controlled Inhale 2 Puffs as instructed twice daily. 1 Inhaler 10/31/2021 11/19/2022 Discontinued Start: 10-31-2021 take 2 puff(s) by in halation twice daily budesonide-formoterol (SYMBICORT) 160-4.5 mcg/actuation inhaler Indications: Asthma, moderate persistent, well-controlled Inhale 2 Puffs as instructed twice daily. 1 Inhaler 10/31/2021 Active Start: 08-17-2021 End: 10-31-2021 take 2 puff(s) by inhalation twice daily budesonide-formoterol (SYMBICORT) 160-4.5 mcg/actuation inhaler Indications: Asthma, moderate persistent, well-controlled Inhale 2 Puffs as instructed twice daily. 1 Inhaler 11 08/17/2021 10/31/2021 Discontinued Start: 08-17-2021 take 2 puff(s) by in halation twice daily budesonide-formoterol (SYMBICORT) 160-4.5 mcg/actuation inhaler Indications: Asthma, moderate persistent, well-controlled Inhale 2 Puffs as instructed twice daily. 1 Inhaler 11 08/17/2021 Active Start: 06-23-2020 End: 08-17-2021 take 2 puff(s) by inhalation twice daily budesonide-formoterol (SYMBICORT) 160-4.5 mcg/actuation inhaler Indications: Asthma, moderate persistent, well-controlled Inhale 2 Puffs as instructed twice daily. 1 Inhaler 11 06/23/2020 08/17/2021 Discontinued Start: 06-23-2020 take 2 puff(s) by in halation twice daily budesonide-formoterol (SYMBICORT) 160-4.5 mcg/actuation inhaler Indications: Asthma, moderate persistent, well-controlled Inhale 2 Puffs as instructed twice daily. 1 Inhaler 11 06/23/2020 Active Start: 04-04-2018 Budesonide-For moterol (Symbicort 160/4.5 Mcg Inhaler (Sp)) 1 INHALER inhaler Active 2 NMA INHALATION TWICE A DAY April 04, 2018 1:00am Start: 04-04-2018 Budesonide-For moterol (Symbicort 160/4.5 Mcg Inhaler (Sp)) 1 INHALER inhaler Active 2 PUFF INHALATION TWICE A DAY April 04, 2018 12:00am Start: 04-04-2018 Budesonide-For moterol (Symbicort 160/4.5 Mcg Inhaler (Sp)) 1 INHALER inhaler Active 2 PUFF INHALATION TWICE A DAY April 04, 2018 1:00am Start: 04-04-2018 Budesonide-For moterol (Symbicort 160/4.5 Mcg Inhaler (Sp)) 1 INHALER inhaler Active 2 PUFF INHALATION TWICE A DAY April 04, 2018 1:00am Comment on above: Inhale 2 Puffs as in structed twice daily. calcium carb/vit D2/minerals (CALTRATE PLUS ORAL) (20 sources) take 1 capsule by mouth once daily calcium carb/vit D2/minerals (CALTRATE PLUS ORAL) Take 1 capsule by mouth once daily. Active take 1 capsule by mouth once perry ly calcium carb/vit D2/minerals (CALTRATE PLUS ORAL) Take 1 capsule by mouth once daily. 0 Active Comment on above: Take 1 capsule by mo [facility] once daily. calcium citrate 950 mg / cholecalciferol 250 unt oral tablet (12 sources) Vitamin D Start: 04-04-20 Calcium Citrate-Vitamin D3 (Citracal-Vit D3 200 Mg-250 Tab) 1 EACH tablet Active 1 NMA PO DAILY April 04, 2018 1:00am clonazePAM 1 mg oral tablet (20 sources) Benzodiazepine Start: 10-29-19 End: 01-27-20 take 1 tablet by mouth twice daily clonazePAM (KLONOPIN) 1 mg tablet Indications: Anxiety and depression Take 1 tablet by mouth two times a day for 90 days. Patient should start on October 28, 2024. 60 tablet 2 10/28/2024 01/26/2025 Active Start: 07-09-2014 End: 12-14-2024 take 1 tablet by mouth twice daily Clonazepam 0.5 MG tablet Active 0.5 mg PO TWICE A DAY July 09, 2014 1:00am ANXIETY Comment on above: Take 1 tablet by james twice daily for 180 days. Take 1 tablet by james twice daily for 180 days. Do not start before July 08, 2022. Take 1 tablet by james two times a day for 120 days. Do not start before July 08, 2023. dicyclomine hydrochloride 20 mg oral tablet (19 sources) Anticholinergic Start: 02-10-20 End: 02-17-20 take 1 tablet by mouth four times daily Bentyl use dicyclomine Dose : 20 mg =, Oral, QID, # 20 tab(s), 0 Refill(s) Start Date: 02/09/25 Stop Date: 02/16/25 Status: Ordered Medication Dispense Status: Completed Quantity: 20.0 Unit: tab(s) Total Allowed Fills: 1 Fills Dispensed: 0 Start: 06-24-2015 End: 11-10-2021 take 1 capsule by mouth three times daily dicyclomine (BENTYL) 10 mg capsule Indications: Irritable bowel syndrome, unspecified type Take 1 capsule by mouth three times daily. 270 capsule 3 11/07/2021 11/10/2021 Discontinued (Lack of Efficacy) Start: 07-09-2014 End: 07-22-2014 take 1 capsule by mouth at bedtime Dicyclomine 10 MG capsule Discontinued 10 mg PO BEFORE MEALS AND AT BEDTIME July 09, 2014 1:00am July 22, 2014 2:02pm Comment on above: Take 1 capsule by mo [facility] three times daily. enteric contrast (will be provided with radiology test) (1 source) Start: 11-04-2024 End: 11-05-2024 enteric contrast (will be provided with radiology test) Indications: Intra-abdominal and pelvic swelling, mass and lump, unspecified site , Other specified disorders of kidney and ureter , Pancreatic cyst (HCC) , Renal cyst For CT ABD W IVCON order Administer, As Directed One Time Only, via Oral, Rectal, both Oral and Rectal, Enteric Tube, Stoma or Indwelling Catheter, Enteric Contrast as designated per enteric contrast guidelines 1 each 11/04/2024 11/05/2024 Active estradiol 0.5 mg oral tablet (20 sources) Estrogen Start: 01-02-2023 End: 11-01-2023 take 1 tablet by mouth once daily Estradiol (ESTRACE) 1 mg tablet Indications: Menopause syndrome Take 1 tablet by mouth once daily. 90 tablet 1 01/02/2023 11/01/2023 Discontinued Start: 07-09-2014 End: 07-20-2024 take 1 tablet by mouth once daily Estradiol 0.5 mg tablet Active 0.5 mg PO daily January 14, 2025 12:00am off 5 days; repeat cycle Comment on above: Take 1 tablet by [facility] once daily. famotidine 40 mg oral tablet (1 source) Histamine-2 Receptor Antagonist Start: 12-10-19 25 take 1 tablet by mouth once daily famotidine (PEPCID) 40 mg tablet Indications: Hiatal hernia Take 1 tablet by mouth once daily. 30 tablet 5 12/09/2024 Active fexofenadine hydrochloride 180 mg oral tablet (20 sources) Histamine-1 Receptor Antagonist Start: 02-22-20 10 End: 11-01-19 24 take 1 tablet by mouth once daily fexofenadine (NAN) 180 mg tablet Take 1 tablet by mouth once daily. 90 tablet 3 11/01/2023 Active Comment on above: Take one(1) tablet d aily. fluticasone propionate 0.05 mg/actuat metered dose nasal spray (20 sources) Corticosteroid Start: 04-02-20 18 fluticasone (FLONASE) 50 mcg/actuation nasal spray Use 1 [place] in each nostril twice daily. VIA SPACER THEN RINSE AND GARGLE MOUTH WITH WATER. 1 Bottle 04/02/2018 Active Start: 07-09-2014 Fluticasone Pr opionate 1 SPRAY spray,suspension Active 1 NMA NASAL DAILY NEEDED as needed for Allergies July 09, 2014 1:00am Start: 07-09-2014 Fluticasone Pr opionate Active 1 SPRAY NASAL DAILY NEEDED July 09, 2014 12:00am Comment on above: Use 1 [place] in each nostril twice daily. VIA SPACER THEN RINSE AND GARGLE MOUTH WITH WATER. GEMTESA 75 mg tablet (20 sources) Start: 11-13-2022 take 1 tablet by mouth once GEMTESA 75 mg tablet Take 1 tablet by mouth every afternoon. 11/13/2022 Active Start: 11-13-2022 take 1 tablet by mouth once GE MTESA 75 mg tablet Take 1 tablet by mouth every afternoon. 0 11/13/2022 Active Comment on above: Take 1 tablet by james th every afternoon. imipramine hydrochloride 50 mg oral tablet (20 sources) Tricyclic Antidepressant Start: 11-11-19 End: 10-27-19 25 take 2 tablets by mouth once daily at bedtime imipramine HCl (TOFRANIL) 25 mg tablet Take 2 tablets by mouth daily at bedtime. 180 tablet 3 11/01/2023 10/26/2024 Discontinued Start: 07-04-2021 End: 10-10-2021 take 2 tablets by mouth once daily at bedtime imipramine HCl (TOFRANIL) 25 mg tablet Take 2 tablets by mouth daily at bedtime. 60 tablet 0 07/04/2021 10/10/2021 Discontinued (Clinical Decision) Start: 01-07-2018 End: 10-29-2024 take 1 tablet by mouth once daily at bedtime imipramine HCl (TOFRANIL) 50 mg tablet Indications: Anxiety and depression Take 1 tablet by mouth daily at bedtime. 90 tablet 2 10/29/2024 Active Start: 06-24-2015 take 25 mg by mouth once daily Imipramine Hcl Active 25 MG PO DAILY June 24, 2015 1:00am Start: 07-09-2014 End: 07-22-2014 take 1 tablet by mouth three times daily Imipramine Hcl 25 MG tablet Discontinued 25 mg PO THREE TIMES A DAY July 09, 2014 1:00am July 22, 2014 2:02pm Comment on above: Take 2 tablets by [facility] daily at bedtime. ipratropium bromide 0.2 mg/ml inhalation solution (20 sources) Anticholinergic Start: 07-16-2022 End: 11-20-2024 ipratropium (ATROVENT) 0.02 % nebulizer solution Indications: Asthma with chronic obstructive pulmonary disease (COPD) (HCC) Use 2.5 mL via nebulizer four times a day as needed for wheezing/shortness of breath. 120 mL 5 11/20/2024 Active Start: 12-22-2020 End: 01-02-2023 ipratropium bromide (ATROVEN T) 42 mcg (0.06 %) nasal spray Indications: Chronic rhinitis Use 2 Sprays in the nose three times daily as needed. 15 mL 5 04/07/2022 01/02/2023 Discontinued Start: 07-09-2014 End: 01-07-2018 take 0.25 mg by inhalation four times daily as needed for wheezing Ipratropium [place] 0.5 MG/2.5 ML Solution Discontinued 0.25 mg INHALATION 4 TIMES DAILY NEEDED as needed for Sob &/Or Wheezing July 09, 2014 1:00am January 07, 2018 1:16pm Comment on above: Use 2 Sprays in the nose three times daily. Use 2 Sprays in the nose three times daily as needed. Use 2.5 mL via nebul izer four times daily as needed for wheezing/shortness of breath. iv contrast (will be provided with radiology test) (1 source) Start: End: iv contrast (will be provided with radiology test) Indications: Intra-abdominal and pelvic swelling, mass and lump, unspecified site , Other specified disorders of kidney and ureter , Pancreatic cyst (HCC) , Renal cyst CT ABD W -Inject, intravenously, once for 1 dose.No IV [...] in the CT contrast administration guidelines link. 1 each 11/04/2024 11/05/2024 Active lansoprazole 30 mg delayed release oral capsule (20 sources) Proton Pump Inhibitor Start: take 1 capsule by mouth once daily lansoprazole (PREVACID) 30 mg capsule Take 1 capsule by mouth once daily. 90 capsule 3 11/25/2023 Active Start: 07-09-2014 End: 11-23-2023 take 1 capsule by mouth once daily lansoprazole (PREVACID) 30 mg capsule Take 1 capsule by mouth once daily. 90 capsule 3 11/25/2023 Active Comment on above: Take 1 capsule by [facility] once daily. levoFLOXacin 500 mg oral tablet (16 sources) Quinolone Antimicrobial Start: 03-17-20 End: 03-27-20 take 1 tablet by mouth once daily levoFLOXacin (LEVAQUIN) 500 mg tablet Indications: Acute non-recurrent frontal sinusitis Take 1 tablet by mouth once daily for 10 days. 10 tablet 03/17/2024 03/27/2024 Active Start: 11-01-2023 End: 11-08-2023 take 1 tablet by mouth once daily levoFLOXacin (LEVAQUIN) 750 mg tablet Indications: Chronic sinusitis, unspecified location Take 1 tablet by mouth once daily for 7 days. 7 tablet 11/01/2023 11/08/2023 Start: 05-01-2023 End: 05-11-2023 take 1 tablet by mouth once daily levoFLOXacin (LEVAQUIN) 750 mg tablet Indications: Other acute recurrent sinusitis Take 1 tablet by mouth once daily for 10 days. 10 tablet 0 05/01/2023 05/11/2023 Start: 01-18-2023 End: 01-23-2023 take 1 tablet by mouth once daily levoFLOXacin (LEVAQUIN) 750 mg tablet Take 1 tablet by mouth once daily for 5 days. 5 tablet 0 01/18/2023 01/23/2023 Active Start: 11-10-2021 End: 11-15-2021 take 1 tablet by mouth once daily levoFLOXacin (LEVAQUIN) 250 mg tablet Take 1 tablet by mouth once daily for 5 days. 5 tablet 0 11/10/2021 11/15/2021 Active Start: 08-08-2021 End: 08-27-2021 levoFLOXacin (LEVAQUIN) 750 mg tablet Take 1 tablet by mouth once daily for 10 days. FOR 10 DAYS. 10 tablet 0 08/17/2021 08/27/2021 Active Comment on above: Take 1 tablet by james th once daily for 10 days. FOR 10 DAYS. Take 1 tablet by james th once daily for 5 days. Take 1 tablet by james th once daily for 10 days. loperamide hydrochloride 2 mg oral capsule (20 sources) Opioid Agonist Start: take 1 capsule by mouth every six hours as needed for diarrhea Loperamide 2 MG capsule Active 2 mg PO EVERY 6 HOURS NEEDED as needed for Diarrhea July 22, 2014 12:00am LOPERAMIDE HCL ( IMODIUM ORAL) Take by mouth as needed. Active LOPERAMIDE HCL ( IMODIUM ORAL) Take by mouth as needed. 0 Active Comment on above: Take by mouth as nee ded. methylPREDNISolone (20 sources) Corticosteroid Start: 05-04-2024 End: 05-10-2024 methylPREDNISolone (MEDROL, DYLON,) 4 mg Dose-Pack As instructed per package 21 tablet 05/04/2024 05/10/2024 Active Start: 04-04-2024 End: 07-20-2024 take 1 tablet by mouth once Methylprednisolone (Medrol (Dylon)) 4 mg tablets,dose pack Discontinued 0 PO .COMPLEX 21 0 April 04, 2024 1:00am July 20, 2024 11:57am orally per package directions Start: 11-01-2023 End: 11-07-2023 methylPREDNISolone (MEDROL, DYLON,) 4 mg Dose-Pack Indications: Chronic sinusitis, unspecified location , Lumbar pain Follow dosing instructions, take with food. 21 tablet 11/01/2023 11/07/2023 Start: 11-01-2023 End: 11-07-2023 methylPREDNISolone (MEDROL, DYLON,) 4 mg Dose-Pack Indications: Chronic sinusitis, unspecified location , Lumbar pain Follow dosing instructions, take with food. 21 tablet 0 11/01/2023 11/07/2023 Active Start: 01-18-2023 End: 01-24-2023 methylPREDNISolone (MEDROL, DYLON,) 4 mg Dose-Pack Follow dosing instructions, take with food. 21 tablet 0 01/18/2023 01/24/2023 Active Start: 01-08-2023 End: 01-13-2023 methylPREDNISolone (MEDROL, DYLON,) 4 mg Dose-Pack Use orally as directed. 21 tablet 0 01/08/2023 01/13/2023 Active Start: 08-08-2021 End: 10-10-2021 methylPREDNISolone (MEDROL) 8 mg tablet 4 tabs daily for 3 days, 3 tabs daily for 3 days, 2 tabs daily for 3 days, 1 tab daily for 3 days. 30 tablet 0 08/17/2021 10/10/2021 Discontinued (Course of therapy completed) Comment on above: 4 tabs daily for 3 d ays, 3 tabs daily for 3 days, 2 tabs daily for 3 days, 1 tab daily for 3 days. Use orally as direct ed. Follow dosing instru ctions, take with food. montelukast 10 mg oral tablet (20 sources) Leukotriene Receptor Antagonist Start: 2 End: 5 take 1 tablet by mouth once daily at bedtime montelukast (SINGULAIR) 10 mg tablet Take 1 tablet by mouth daily at bedtime. 90 tablet 3 01/14/2025 Active Comment on above: Take 1 tablet by james th daily at bedtime. mupirocin 0.02 mg/mg topical ointment (17 sources) RNA Synthetase Inhibitor Antibacterial Start: 5 mupirocin (BACTROBAN) 2 % ointment Apply to affected area once daily. 60 g 4 10/26/2024 Active Nebulizer Accessories kit (20 sources) Start: 5 Nebulizer Accessories kit 1 Kit as needed. 1 Kit 11 07/03/2024 Active nystatin [id number] unt/ml oral suspension (20 sources) Polyene Antifungal Start: 5 nystatin (MYCOSTATIN) 100,000 unit/mL suspension Indications: Thrush Take 5 mL by mouth four times daily. 1tsp swish in mouth for several minutes, then swallow (or expectorate) 4 times daily until gone. 200 mL 05/11/2024 Active raNITIdine 150 mg oral tablet (2 sources) Histamine-2 Receptor Antagonist Start: 5 take 1 tablet by mouth twice daily Ranitidine (Zantac) 150 MG tablet Active 150 MG PO TWICE A DAY July 09, 2014 1:00am simvastatin 40 mg oral tablet (20 sources) HMG-CoA Reductase Inhibitor Start: 5 End: 5 take 1 tablet by mouth once daily at bedtime simvastatin (ZOCOR) 40 mg tablet Take 1 tablet by mouth daily at bedtime. 90 tablet 3 10/26/2024 Active Comment on above: Take 1 tablet by james th daily at bedtime. sucralfate 1000 mg oral tablet (20 sources) Aluminum Complex Start: 8 End: 4 take 1 tablet by mouth at bedtime sucralfate (CARAFATE) 1 gram tablet Take 1 tablet by mouth before meals and at bedtime. 360 tablet 3 11/04/2023 Active Comment on above: Take 1 tablet by james th before meals and at bedtime. topiramate 100 mg oral tablet (13 sources) Start: 5 take 1 tablet by mouth once daily Topiramate (Topamax) 100 mg tablet Active 100 mg PO daily January 14, 2025 12:00am Start: 07-09-2014 End: 07-22-2014 Topiramate 25 MG tablet Disc ontinued 25 mg DAILY July 09, 2014 1:00am July 22, 2014 2:03pm Vibegron (6 sources) Start: 07-20-2024 take 1 tablet by mouth once daily Vibegron (Gemtesa) 75 mg tablet Active 75 mg PO DAILY July 20, 2024 12:00am vit e acetate/gly/dimeth/w ater(CETAPHIL MOISTURIZING LOTION) (20 sources) Start: 05-16-2009 vit e acetate/gly/dimeth/w ater(CETAPHIL MOISTURIZING LOTION) apply twice daily 1 0 05/16/2009 Active Comment on above: apply twice daily Completed/Discontinued Medications Medication Drug Class(es) Dates Sig (Normalized) Sig (Original) acetaminophen 325 mg / oxyCODONE hydrochloride 5 mg oral tablet (12 sources) Opioid Agonist Start: 08-29-2020 End: 09-01-2020 Oxycodone-Acetamino phen 1 TABLET tablet Discontinued 1 {tbl} PO EVERY 6 HOURS NEEDED as needed for Pain 12 3 0 August 29, 2020 August 31, 2020 12:00am September 01, 2020 12:01am Contusion of multiple sites of lower extremity Contusion of unspecified lower leg, initial encounter Start: 08-29-2020 End: 09-01-2020 take 1 tablet by mouth every six hours as needed Oxycodone-Acetaminophen Discontinued 1 TABLET PO EVERY 6 HOURS NEEDED 12 3 August 29, 2020 August 31, 2020 11:01pm baclofen 20 mg oral tablet (9 sources) gamma-Aminobutyric Acid-ergic Agonist Start: 01-10-2022 End: 04-19-2022 take 1 tablet by mouth three times daily as needed for muscle spasms baclofen (LIORESAL) 20 mg tablet Indications: Shoulder pain, unspecified chronicity, unspecified laterality Take 1 tablet by mouth three times daily as needed (muscle spasms). 21 tablet 0 01/10/2022 04/19/2022 Discontinued Comment on above: Take 1 tablet by james th three times daily as needed (muscle spasms). buPROPion hydrochloride 75 mg oral tablet (11 sources) Aminoketone Start: 12-05-2022 End: 07-11-2023 take 1 tablet by mouth twice daily buPROPion (WELLBUTRIN) 75 mg tablet Indications: Anxiety and depression , Caregiver stress syndrome Take 1 tablet by mouth twice daily. 60 tablet 3 12/05/2022 07/11/2023 Discontinued (Discontinued by another Health Care Provider) Comment on above: Take 1 tablet by james th twice daily. cephalexin 500 mg oral capsule (4 sources) Cephalosporin Antibacterial Start: 10-22-2024 End: 11-11-2024 take 1 capsule by mouth every twelve hours Cephalexin 500 mg capsule Discontinued 500 mg PO EVERY 12 HOURS 14 0 October 22, 2024 12:00am November 11, 2024 8:40am cloNIDine hydrochloride 0.1 mg oral tablet (1 source) Central alpha-2 Adrenergic Agonist Start: 12-05-2022 End: 01-02-2023 take 1 tablet by mouth once daily at bedtime cloNIDine HCl (CATAPRES) 0.1 mg tablet Indications: Hot flashes due to menopause , Sleep disturbance Take 1 tablet by mouth daily at bedtime. 30 tablet 3 12/05/2022 01/02/2023 Discontinued Comment on above: Take 1 tablet by james th daily at bedtime. diazePAM 5 mg oral tablet (6 sources) Benzodiazepine Start: 04-04-2024 End: 07-20-2024 take 1 tablet by mouth three times daily as needed for muscle spasms Diazepam (Valium) 5 mg tablet Discontinued 5 mg PO THREE TIMES A DAY as needed for muscle spasm 10 3 0 April 04, 2024 1:00am July 20, 2024 11:56am estrogens, conjugated ([facility]) 0.3 mg / medroxyPROGESTERone acetate 1.5 mg oral tablet (20 sources) Progestin, Estrogen Start: 11-01-2023 End: 05-04-2024 take 1 tablet by mouth once daily Conj Estrog-Medroxyp rogest Debra 0.3-1.5 mg per tablet Indications: Menopause syndrome Take 1 tablet by mouth once daily. 30 tablet 3 11/01/2023 05/04/2024 Discontinued 72 hr fentaNYL 0.012 mg/hr transdermal system (20 sources) Opioid Agonist Start: 07-15-2021 End: 01-13-2022 apply 1 dose transdermal route every hour fentaNYL (DURAGESIC) 12 mcg/hr pt72 Indications: Fibromyalgia , DDD (degenerative disc disease), lumbar Apply 1 Patch as directed every 72 hours for 30 days. Do not start before December 14, 2021. 10 Patch 0 12/14/2021 12/14/2021 Discontinued (Changing Therapy/Dosage Form) Start: 07-09-2014 Fentanyl Activ e 25 MCG TRANSDERM. Q3D July 09, 2014 1:00am Comment on above: Apply 1 Patch as dir ected every 72 hours for 30 days. Do not start before September 14, 2021. Apply 1 Patch as dir ected every 72 hours for 30 days. Do not start before August 15, 2021. Apply 1 Patch as dir ected every 72 hours for 30 days. Do not start before July 15, 2021. Apply 1 Patch as dir ected every 72 hours for 30 days. Do not start before October 15, 2021. Apply 1 Patch as dir ected every 72 hours for 30 days. Do not start before November 14, 2021. Apply 1 Patch as dir ected every 72 hours for 30 days. Do not start before December 14, 2021. 24 hr fesoterodine fumarate 4 mg extended release oral tablet (5 sources) Start: End: take 1 tablet by mouth once daily Fesoterodine 4 mg tablet extended release 24 hr Discontinued 4 mg PO DAILY September 21, 2024 12:00am January 14, 2025 3:42pm fluconazole 150 mg oral tablet (10 sources) Azole Antifungal Start: End: fluconazole (DIFLUCAN) 150 mg tablet Take 1 tablet by mouth one time only for 1 dose. Repeat in 3 days as needed. 2 tablet 11/09/2024 11/09/2024 Start: 11-01-2023 End: 11-01-2023 fluconazole (DIFLUCAN) 150 m g tablet Take 1 tablet by mouth one time only for 1 dose. Repeat in 3 days as needed. 2 tablet 11/01/2023 11/01/2023 Start: 05-01-2023 End: 05-01-2023 fluconazole (DIFLUCAN) 150 m g tablet Indications: Acute vaginitis Take 1 tablet by mouth one time only for 1 dose. Take one tablet. Repeat in 3 days as needed. for perineal itching 2 tablet 0 05/01/2023 05/01/2023 Start: 02-04-2023 End: 02-04-2023 take 1 tablet by mouth once fluconazole (DIFLUCAN) 150 mg tablet Take 1 tablet by mouth one time only for 1 dose. 1 tablet 0 02/04/2023 02/04/2023 Start: 01-17-2023 End: 01-17-2023 take 1 tablet by mouth once fluconazole (DIFLUCAN) 150 mg tablet Take 1 tablet by mouth one time only for 1 dose. 1 tablet 0 01/17/2023 01/17/2023 Active Start: 04-19-2022 End: 04-19-2022 fluconazole (DIFLUCAN) 150 m g tablet Indications: Acute vaginitis Take 1 tablet by mouth one time only for 1 dose. Take one tablet. Repeat in 3 days as needed. for perineal itching 2 tablet 0 04/19/2022 04/19/2022 Active Start: 03-28-2022 End: 03-28-2022 fluconazole (DIFLUCAN) 150 m g tablet Take 1 tablet by mouth one time only for 1 dose. Repeat in 3 days as needed. 2 tablet 0 03/28/2022 03/28/2022 Active Start: 10-13-2021 End: 10-14-2021 take 1 tablet by mouth once daily fluconazole (DIFLUCAN) 150 mg tablet Take 1 tablet by mouth once daily for 1 day. 1 tablet 0 10/13/2021 10/14/2021 Active Comment on above: Take 1 tablet by james th once daily for 1 day. Take 1 tablet by james th one time only for 1 dose. Repeat in 3 days as needed. Take 1 tablet by james th one time only for 1 dose. Take one tablet. Repeat in 3 days as needed. for perineal itching Take 1 tablet by james th one time only for 1 dose. 120 actuat fluticasone propionate 0.23 mg/actuat / salmeterol 0.021 mg/actuat metered dose inhaler (19 sources) Corticosteroid, beta2-Adrenergic Agonist Start: 4 End: 4 take 2 puff(s) by inhalation twice daily fluticasone-salmeter ol HFA (ADVAIR HFA) 230-21 mcg/actuation inhaler Inhale 2 Puffs as instructed two times a day. 1 Each 5 01/17/2024 03/24/2024 Discontinued (Course of therapy completed) Start: 07-09-2014 End: 06-24-2015 take 1 puff(s) by inhalation twice daily Fluticasone Propion-Salmeterol (Advair Diskus) 1 PUFF inhaler Discontinued 1 NMA INHALATION TWICE A DAY July 09, 2014 1:00am June 24, 2015 12:11pm Start: 07-09-2014 End: 06-24-2015 take 1 puff(s) by inhalation twice daily Fluticasone Propion-Salmeterol (Advair Diskus) 1 PUFF inhaler Discontinued 1 PUFF INHALATION TWICE A DAY July 09, 2014 12:00am June 24, 2015 11:11am Start: 07-09-2014 End: 06-24-2015 take 1 puff(s) by inhalation twice daily Fluticasone Propion-Salmeterol (Advair Diskus) 1 PUFF inhaler Discontinued 1 PUFF INHALATION TWICE A DAY July 09, 2014 1:00am June 24, 2015 12:11pm HYDROmorphone hydrochloride 2 mg oral tablet (12 sources) Opioid Agonist Start: 02-01-2015 End: 06-24-2015 take 1 tablet by mouth every four hours as needed for pain Hydromorphone 2 MG tablet Discontinued 2 mg PO EVERY 4 HOURS NEEDED as needed for Pain 20 0 February 01, 2015 12:00am June 24, 2015 12:10pm lamoTRIgine 25 mg oral tablet (2 sources) Mood Stabilizer, Anti-epileptic Agent Start: 10-23-2022 End: 12-03-2022 take 1 tablet by mouth once daily lamoTRIgine (LAMICTAL) 25 mg tablet Indications: Anxiety and depression Take 1 tablet by mouth once daily. 30 tablet 2 10/23/2022 12/03/2022 Discontinued (Discontinued by Patient) Comment on above: Take 1 tablet by james once daily. morphine sulfate 15 mg extended release oral tablet (6 sources) Opioid Agonist Start: 12-14-2021 End: 03-01-2022 take 1 tablet by mouth once daily morphine SR (MS CONTIN, ORAMORPH SR) 15 mg 12 hr tablet Indications: DDD (degenerative disc disease), lumbosacral , Fibromyalgia Take 1 tablet by mouth once daily for 14 days. 14 tablet 0 01/10/2022 03/01/2022 Discontinued Comment on above: Take 1 tablet by james once daily for 14 days. nortriptyline 25 mg oral capsule (12 sources) Tricyclic Antidepressant Start: 07-22-2014 End: 06-24-2015 take 1 capsule by mouth at bedtime Nortriptyline 25 MG capsule Discontinued 25 mg PO AT BEDTIME 30 0 July 22, 2014 12:00am June 24, 2015 12:08pm nystatin 100 unt/mg / triamcinolone acetonide 0.001 mg/mg topical ointment (4 sources) Polyene Antifungal, Corticosteroid Start: 04-19-2022 End: 05-19-2022 nystatin-triamcino lone (MYCOLOG) ointment Indications: Acute vaginitis Apply 1 application to affected area twice daily. Apply sparingly to perineum twice daily for irritation/infecti on. OK to use u to 25 days, may repeat if needed. For perineal itching 15 g 0 04/19/2022 05/19/2022 Comment on above: Apply 1 application to affected area twice daily. Apply sparingly to perineum twice daily for irritation/infection. OK to use u to 25 days, may repeat if needed. For perineal itching ondansetron 4 mg disintegrating oral tablet (12 sources) Serotonin-3 Receptor Antagonist Start: 02-01-2015 End: 06-24-2015 take 1 tablet by mouth every eight hours as needed for nausea Ondansetron 4 MG tablet Discontinued 4 mg PO EVERY 8 HOURS NEEDED as needed for Nausea February 01, 2015 12:00am June 24, 2015 12:07pm potassium chloride 10 meq extended release oral tablet (12 sources) Start: 07-22-2014 End: 06-24-2015 take 1 tablet by mouth twice daily Potassium Chloride 10 MEQ tablet Discontinued 10 meq PO TWICE A DAY 60 0 July 22, 2014 12:00am June 24, 2015 12:07pm predniSONE 20 mg oral tablet (20 sources) Start: 03-17-2024 End: 05-04-2024 predniSONE (DELTASONE) 20 mg tablet Indications: Acute non-recurrent frontal sinusitis 1 tablet three times a day for 3 days, then 2 times a day for 3 days, the one daily for 3 days. 18 tablet 03/17/2024 05/04/2024 Discontinued Start: 05-01-2023 End: 05-06-2023 take 2 tablets by mouth once daily predniSONE (DELTASONE) 20 mg tablet Indications: Other acute recurrent sinusitis Take 2 tablets by mouth once daily for 5 days. 10 tablet 0 05/01/2023 05/06/2023 Start: 02-04-2023 End: 02-09-2023 take 2 tablets by mouth once daily predniSONE (DELTASONE) 20 mg tablet Take 2 tablets by mouth once daily for 5 days. 10 tablet 0 02/04/2023 02/09/2023 Active Start: 11-15-2020 End: 11-23-2021 take 1 tablet by mouth once daily, then take 2 tablets by mouth once daily, then take 1 tablet by mouth once daily predniSONE (DELTASONE) 5 mg tablet Take 1 tablet by mouth once daily. 2 tablets daily for 21 days, then 1 tablet daily until re-evaluation. 90 tablet 3 11/15/2020 11/23/2021 Discontinued (Course of therapy completed) Comment on above: Take 1 tablet by [facility] once daily. 2 tablets daily for 21 days, then 1 tablet daily until re-evaluation. Take 2 tablets by [facility] once daily for 5 days. sertraline 25 mg oral tablet (8 sources) Serotonin Reuptake Inhibitor Start: 10-11-19 End: 11-11-19 take 1 tablet by mouth once daily sertraline (ZOLOFT) 25 mg tablet Take 1 tablet by mouth once daily. 30 tablet 2 10/10/2021 11/10/2021 Discontinued (Side Effects) Comment on above: Take 1 tablet by [facility] once daily. triamcinolone acetonide 1 mg/ml topical cream (8 sources) Corticosteroid Start: 09-06-19 End: 01-03-20 triamcinolone acetonide (KENALOG) 0.1 % cream Apply 1 application to affected area three times daily as needed. Apply sparingly to area for rash/itching. Up to 4 weeks 45 g 0 09/05/2022 01/02/2023 Discontinued Start: 06-22-2022 triamcinolone acetonide (KENALOG) 0.1 % cream Apply 1 application to affected area three times daily as needed. Apply sparingly to area for rash/itching. Up to 4 weeks 15 g 0 06/22/2022 Active Comment on above: Apply 1 application to affected area three times daily as needed. Apply sparingly to area for rash/itching. Up to 4 weeks Problems Active Problems Problem Classification Problem Date Documented Da te Episodic/Chronic Abdominal hernia (5 sources) Hernia of anterior abdominal wall; Translations: [Ventral hernia without obstruction or gangrene] Onset: 5 Episodic Abdominal pain (2 sources) Abdominal pain; Translations: [Unspecified abdominal pain] Onset: 5 Episodic Adjustment disorders (20 sources) Stress and adjustment reaction; Translations: [Adjustment disorder with other symptoms] Onset: 5 Resolved: 7 07-11-2016 Chronic Anxiety disorders (20 sources) Mixed anxiety and depressive disorder; Translations: [Anxiety disorder, unspecified] Onset: 6 02-25-2015 Chronic Asthma (20 sources) Moderate persistent asthma controlled; Translations: [Moderate persistent asthma, uncomplicated] Onset: 9 Resolved: 7 Chronic Chronic obstructive pulmonary disease and bronchiectasis (20 sources) Asthma-chronic obstructive pulmonary disease overlap syndrome; Translations: [Chronic obstructive pulmonary disease, unspecified] Onset: 6 Resolved: 8 02-25-2015 Chronic Chronic ulcer of skin (20 sources) Ulcer of lower extremity; Translations: [Non-pressure chronic ulcer of unspecified part of right lower leg with unspecified severity] Onset: 5 04-07-2018 Chronic Complications of surgical procedures or medical care (9 sources) Non dose-related adverse reaction to medication; Translations: [Unspecified adverse effect of drug or medicament, initial encounter] 01-08-2023 Episodic Disorders of lipid metabolism (20 sources) Pure hypercholesterolemia; Translations: [Pure hypercholesterolemia, unspecified] Onset: 6 08-09-2005 Chronic Disorders of teeth and jaw (12 sources) Edentulous; Translations: [Complete loss of teeth, unspecified cause, unspecified class] 04-07-2018 Chronic Esophageal disorders (20 sources) Gastroesophageal reflux disease; Translations: [Gastro-esophageal reflux disease without esophagitis] Onset: 9 08-05-2008 Chronic Fluid and electrolyte disorders (12 sources) Hypokalemia; Translations: [Hypokalemia] 04-07-2018 Episodic Genitourinary symptoms and ill-defined conditions (1 source) Mixed incontinence; Translations: [Mixed incontinence] Onset: Chronic Genitourinary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 Normal 150-450 [facility] Comment on above: Performed By: #### L 300.3900, L500.2500, L100.0500, L300.4310 ####[facility] [address] [place], [address] RBC (Bld) [#/Vol] 5.08 10*6/uL Normal 4.2-5.4 [facility] Comment on above: Performed By: #### L 300.3900, L500.2500, L100.0500, L300.4310 ####[facility] [address] [place], [address] RDW SD 49.2 fl High 35.1-43.9 [facility] Comment on above: Performed By: #### L 300.3900, L500.2500, L100.0500, L300.4310 ####[facility] [address] [place], [address] WBC (Bld) [#/Vol] 7.6 10*3/uL Normal 4.4-11.0 [facility] Comment on above: Performed By: #### L 300.3900, L500.2500, L100.0500, L300.4310 ####[facility] [address] [place], [address] MR/Richard 03-10-2025 MR/GRETEL [facility] Medical Records Department [address] [place] [address] PAT - Anesthesia 03/10/25 1510 MR#: [id number] Acct: [id number] Name: CHEY JEFFERS Rep #: [id number] : 1960 64 From: Santino Linares MD PCP: Dr. Edda Oconnor MD Status:PRE [facility] Y Race: C Location: [facility] Pre-Assessment Diagnosis/Proposed Procedure Planned Operative Procedure(s): umbilical hernia repair with mesh Anesthesia History Anesthesia History - bag hanger: Anesthesia History - bag hanger Hx Hospitalization No 03/09/25 08:37 Any Problems With Anesthesia No 03/09/25 08:37 Cholinesterase deficiency No 03/09/25 08:37 You/Your Family Experience No 03/09/25 08:37 fever (hyperthermia) with Relationship Recent Exposure to Contagious No 09/21/24 08:12 Disease Does patient have nerve No 03/09/25 08:37 stimulator Patient instructed to have device shut off --Does patient have Pacemaker or ICD? When Was Last Pacemaker Check QUESTION #4 FULL TEXT: You/Your Family Experience fever (hyperthermia) with Anesthesia Last Oral Intake Last Oral intake: Last Oral Intake NPO since Meds taken in AM with sips of water? Meds patient instructed to take am of surgery PONV PONV - bag hanger: PONV - bag hanger Female Yes 03/09/25 08:37 HX of Motion Sickness Yes 03/09/25 08:37 HX of N/V After Surgery Yes 03/09/25 08:37 Non-Smoker Yes 03/09/25 08:37 Duration of Surgery greater Yes 03/09/25 08:37 than 60 minutes Number of Risk Factors 5 03/09/25 08:37 PONV Score Severe Risk 03/09/25 08:37 Height Weight Height Weight: Anesthesia: Height Weight Height 5 ft 03/01/25 09:43 Respiratory Assessment Respiratory Assessment - bag hanger: Respiratory Tract Infection Hx - bag hanger Hx Respiratory Tract Infection No 03/09/25 08:37 STOP Sleep Apnea STOP Sleep Apnea - bag hanger: STOP Sleep Apnea - bag hanger Hx Hypertension Yes 03/09/25 08:37 Hx Sleep Apnea No 03/09/25 08:37 CPAP No 06/08/24 14:54 BIPAP No 06/08/24 14:54 Do you snore loudly (louder Yes 03/09/25 08:37 than talking or can be heard Do you often feel tired/ Yes 03/09/25 08:37 fatigued/ sleepy during daytime? Has anyone observed you stop No 03/09/25 08:37 breathing during sleep? STOP Results Positive 03/09/25 08:37 QUESTION #5 FULL TEXT : Do you snore loudly (louder than talking or can be heard through closed doors)? 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 Specify any problems Hx of Preganancy in last 3 N/A 03/09/25 08:37 Months Nurse Filling Out Transfusion TORRES 03/09/25 08:37 Questions: Date: 03/09/25 03/09/25 08:37 Time: 08:53 03/09/25 08:37 Patient unable to answer at this time (ie. confused, unrespo /Reproduction History /Reproductive History - bag hanger: /Reproductive Hx- bag hanger Hx Now Gestational Age (in weeks): EDC: Hx Hx Para Hx Section SAB No 03/09/25 08:37 Does the father of the baby or his family experience fever w Father of the baby Malignant Hypertension history comment PFSH Medical History (Updated 03/10/25 @ 14:54 by Lizzy Davies) Anemia Easy bruising Injury of back Hiatal hernia Gastric reflux Heartburn Cardiology follow-up encounter Hypertension Palpitations Chest pain History of stress test History of deviated nasal septum Wears dentures History of steroid therapy Arthritis Bladder disease High cholesterol History of IBS Non-smoker Shortness of breath on exertion COPD (chronic obstructive pulmonary disease) Asthma Migraine Degenerative disc disease Fibromyalgia Depression Anxiety Home Medications ???Medication ???Instructions ???Recorded ???Last Taken ???Type albuterol sulfate 90 mcg/actuation 1 - 2 puff IH Q4H PRN PRN Asthma 07/09/14 04/07/18 08:00 History aerosol inhaler (Ventolin HFA) c (more content not included)... Normal [facility] Partial Thromboplast Timeon 03-10-2025 aPTT Coag (Bld) [Time] 24.4 s Normal 24.1-36.2 [facility] Comment on above: Performed By: #### L 300.3900, L500.2500, L100.0500, L300.4310 ####[facility] [address] [place], [address] Prothrombin Time w/INRon INR Coag (PPP) [Relative time] 0.9 {INR} Normal [facility] Comment on above: Performed By: #### L 300.3900, L500.2500, L100.0500, L300.4310 ####[facility] [address] [place], [address] PT Coag (PPP) [Time] 11.9 s Normal 11.7-14.9 [facility] Comment on above: Performed By: #### L 300.3900, L500.2500, L100.0500, L300.4310 ####[facility] [address] [place], [address] 25(OH)D3 [facility] 25-hydroxyvitamin D3 [Mass/Vol] 39.3 ng/mL Normal 31.0-80.0 [facility] Comment on above: Order Comment: Speci men Type: BLOOD SPECIMENOrdering Facility: [facility] Address: [address] [place] [address] Result Comment: Clas sification of 25 [place] Vitamin D status: Deficiency/Insufficiency: < or = 30 ng/ml. Sufficiency/Optimal Levels: 31-80 ng/mL Toxicity: > 100 ng/mL. Test performed by chemiluminescent immunoassay. Performed By: #### 1 989-3 ####[facility] LABCLIA [id number] [place] [address] [place] [facility] CBC panel Auto (Bld)on 03-03 Erythrocyte distribution width (RBC) [Ratio] 15.9 % High 11.5-15.0 [facility] Comment on above: Order Comment: Speci men Type: BLOOD SPECIMENOrdering Facility: [facility] Address: [address] [place] [address] Performed By: #### 5 8410-2 ####[facility] LABCLIA [id number] [place] [address] [place] Hematocrit (Bld) [Volume fraction] 45.4 % Normal 36.0-46.0 [facility] Comment on above: Order Comment: Speci men Type: BLOOD SPECIMENOrdering Facility: [facility] Address: [address] [place] [address] Performed By: #### 5 8410-2 ####[facility] LABCLIA [id number] [place] [address] [place] Hemoglobin (Bld) [Mass/Vol] 14.3 g/dL Normal 11.5-15.5 [facility] Comment on above: Order Comment: Speci men Type: BLOOD SPECIMENOrdering Facility: [facility] Address: [address] [place] [address] Performed By: #### 5 8410-2 ####[facility] LABCLIA [id number] [place] [address] [place] MCH (RBC) [Entitic mass] 27.2 pg Normal 26.0-34.0 [facility] Comment on above: Order Comment: Speci men Type: BLOOD SPECIMENOrdering Facility: [facility] Address: [address] [place] [address] Performed By: #### 5 8410-2 ####[facility] LABCLIA [id number] [place] [address] [place] MCHC (RBC) [Mass/Vol] 31.5 g/dL Normal 30.5-36.0 [facility] Comment on above: Order Comment: Speci men Type: BLOOD SPECIMENOrdering Facility: [facility] Address: [address] [place] [address] Performed By: #### 5 8410-2 ####[facility] LABCLIA [id number] [place] [address] [place] MCV (RBC) [Entitic vol] 86.3 fL Normal 80.0-100.0 [facility] Comment on above: Order Comment: Speci men Type: BLOOD SPECIMENOrdering Facility: [facility] Address: [address] [place] [address] Performed By: #### 5 8410-2 ####[facility] LABCLIA [id number] [place] [address] [place] Nucleated RBC (Bld) [#/Vol] 10*3/uL Normal <0.01 [facility] Comment on above: Order Comment: Speci men Type: BLOOD SPECIMENOrdering Facility: [facility] Address: [address] [place] [address] Performed By: #### 5 8410-2 ####[facility] LABCLIA [id number] [place] [address] [place] Platelet mean volume (Bld) [Entitic vol] 10.6 fL Normal 9.0-12.7 [facility] Comment on above: Order Comment: Speci men Type: BLOOD SPECIMENOrdering Facility: [facility] Address: [address] [place] [address] Performed By: #### 5 8410-2 ####[facility] LABCLIA [id number] [place] [address] [place] Platelets (Bld) [#/Vol] 341 10*3/uL Normal 150-400 [facility] Comment on above: Order Comment: Speci men Type: BLOOD SPECIMENOrdering Facility: [facility] Address: [address] [place] [address] Performed By: #### 5 8410-2 ####[facility] LABCLIA [id number] [place] [address] [place] RBC (Bld) [#/Vol] 5.26 10*6/uL High 3.90-5.20 [facility] Comment on above: Order Comment: Speci men Type: BLOOD SPECIMENOrdering Facility: [facility] Address: [address] [place] [address] Performed By: #### 5 8410-2 ####[facility] LABCLIA [id number] [place] [address] [place] WBC (Bld) [#/Vol] 8.45 10*3/uL Normal 3.70-11.00 [facility] Comment on above: Order Comment: Speci men Type: BLOOD SPECIMENOrdering Facility: [facility] Address: [address] [place] [address] Performed By: #### 5 8410-2 ####[facility] LABCLIA [id number] [address] CNOVon 03-03-2025 CNOV Office Visit (INTMWS ) CHEY JEFFERS ([id number]) 1960 F Date Time Provider Department 03/03/25 9:20 AM EDDA OCONNOR INTMWS During your visit today, we recorded the following information about you: Pulse Respiration Blood pressure Weight 92/minute 16/minute 126/80 66.7 kg Edda Oconnor MD 03/04/2025 12:47 AM Signed Subjective Chey Jeffers is a 64 year old female. HPI SUBJECTIVE: Chey Jeffers is a 64-year-old female with a history of fibromyalgia, glaucoma, and anxiety, presenting for a regular check-up and to discuss multiple concerns, including recent bereavement, back pain, sleep disturbances, and ongoing stress. Chey is experiencing significant emotional distress following the recent of her mother in August. She expresses feelings of guilt and anger towards the hospital where her mother was treated, believing that inadequate care contributed to her mother's . She reports that her mother was diagnosed with sepsis and pneumonia but feels that the treatment was insufficient. She also mentions that her mother's medications were stopped four days before discharge, which she believes was inappropriate. Chey is struggling with the loss and feels abandoned, stating that she can no longer feel her mother's presence, which she used to find comforting. Chey reports experiencing panic attacks on consecutive days and is having difficulty sleeping. She describes her sleep as broken, with some nights sleeping through and others waking up multiple times. She also reports feeling unusually sleepy during the day, sometimes falling asleep at the table, which is atypical for her. She attributes some of her sleep disturbances to her fibromyalgia. She is currently taking Topamax and imipramine but reports that these medications are not effectively managing her anxiety or sleep issues. Chey also reports ongoing back pain, which she describes as feeling like claws digging in there (pointing at left lateral hip to groing area). She has received two steroid injections from Dr. Bianchi, which she states were ineffective and costly. She expresses frustration with the treatment and the lack of improvement in her symptoms. She also mentions concerns about the potential impact of steroids on her glaucoma, as advised by her assistant curator, Dr. Cuevas. In addition to her back pain, Chey reports feeling weak and shaky, particularly in the mornings. She notes that even lifting half a gallon of milk is challenging and that she is getting weaker. She also mentions that she has been diagnosed with osteopenia in the past. Chey is also dealing with significant stress related to her responsibilities as a caregiver for her partner, Laurent, and managing her brother Moshe's affairs. She reports feeling overwhelmed by these responsibilities and expresses frustration with the lack of support from her partner. She also mentions difficulties with managing Moshe's Social Security benefits and estate matters, which are adding to her stress. Chey reports that she is fasting today in case labs are needed. PAST MEDICAL HISTORY Diagnosis Date Abnormal ultrasound of breast 06/17/2013 Acute gastritis Ankylosing spondylitis (HCC) Anxiety and depression 06/12/2005 Asthma (HCC) Bilateral renal cysts 03/11/2015 Calculus of kidney Dysthymic disorder Depression (non-psychotic) Enterocolitis due to Clostridium difficile 01/12/2015 Esophageal reflux HNP (herniated nucleus pulposus), lumbar 08/22/2011 Intrinsic asthma, unspecified 08/05/2008 Irritable bowel syndrome Irritable bowel FCI 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 01/16/2017 Menopause syndrome 01/19/2005 Myalgia and myositis, unspecified Nasal polyposis Polypectomy 03/2017 Dr. Mazariegos [facility]. Pure hypercholesterolemia Serrated adenoma of colon 07/29/2014 Symptomatic menopausal or female climacteric states Unspecified sinusitis (chronic) 06/21/2008 Current Outpatient Medications Medication Sig ipratropium-albuterol (DUONEB) 0.5 mg-3 mg(2.5 mg base)/3 mL nebu Inhale 3 mL as instructed every 6 hours as needed. nystatin (MYCOSTATIN) 100,000 unit/mL suspension Take 5 mL by mouth four times daily. 1tsp swish in mouth for several minutes, then swallow (or expectorate) 4 times daily until gone. clonazePAM (KLONOPIN) 1 mg tablet Take 1 tablet by mouth two times a day for 90 days. Sync meds lansoprazole (PREVACID) 30 mg capsule Take 1 capsule by mouth once daily. Sync meds montelukast (SINGULAIR) 10 mg tablet Take 1 tablet by mouth daily at bedtime. famotidine (PEPCID) 40 mg tablet Take 1 tablet by mouth once daily. imipramine HCl (TOFRANIL) 50 mg tablet Take 1 tablet by mouth daily at bedtime. simvastatin (ZOCOR) 40 mg tablet Take 1 tablet by mouth daily at bedtime. Nebulizer Accessories kit 1 Kit as needed. budesonide-formoterol (more content not included)... Normal [facility] Comprehensive metabolic 2000 panelon 03-03-2025 Albumin [Mass/Vol] 4.4 g/dL Normal 3.9-4.9 [facility] Comment on above: Order Comment: Speci men Type: BLOOD SPECIMENOrdering Facility: [facility] Address: [address] [place] [address] Performed By: #### 2 4323-8, 57493-8, 3023-7, 3015-3 ####[facility] LABCLIA [id number] [place] [address] [place] ALP [Catalytic activity/Vol] 84 U/L Normal 34-123 [facility] Comment on above: Order Comment: Speci men Type: BLOOD SPECIMENOrdering Facility: [facility] Address: [address] [place] [address] Performed By: #### 2 4323-8, 14057-5, 3023-7, 6-3 ####[facility] LABCLIA [id number] [place] [id number] [place] ALT [Catalytic activity/Vol] 14 U/L Normal 7-38 [facility] Comment on above: Order Comment: Speci men Type: BLOOD SPECIMENOrdering Facility: [facility] Address: [address] [place] [address] Performed By: #### 2 4323-8, 24308-4, 3024-7, 3016-3 ####[facility] LABCLIA [id number] [place] [address] [place] Anion gap [Moles/Vol] 12 mmol/L Normal 8-15 [facility] Comment on above: Order Comment: Speci men Type: BLOOD SPECIMENOrdering Facility: [facility] Address: [address] [place] [address] Performed By: #### 2 4323-8, 44657-8, 3023-7, 6-3 ####[facility] LABCLIA [id number] [place] [address] [place] AST [Catalytic activity/Vol] 23 U/L Normal 13-35 [facility] Comment on above: Order Comment: Speci men Type: BLOOD SPECIMENOrdering Facility: [facility] Address: [address] [place] [address] Performed By: #### 2 4323-8, 61959-2, 302-7, 6-3 ####[facility] LABCLIA [id number] [place] [address] [place] Bilirubin [Mass/Vol] 0.2 mg/dL Normal 0.2-1.3 [facility] Comment on above: Order Comment: Speci men Type: BLOOD SPECIMENOrdering Facility: [facility] Address: [address] [place] [address] Performed By: #### 2 4323-8, 02687-1, 3024-7, 3016-3 ####[facility] LABCLIA [id number] [place] [address] [place] Calcium [Mass/Vol] 9.7 mg/dL Normal 8.5-10.2 [facility] Comment on above: Order Comment: Speci men Type: BLOOD SPECIMENOrdering Facility: [facility] Address: [address] [place] [address] Performed By: #### 2 4323-8, 33147-5, 3024-7, 3016-3 ####[facility] LABCLIA [id number] [place] [address] [place] Chloride [Moles/Vol] 108 mmol/L High 98-107 [facility] Comment on above: Order Comment: Speci men Type: BLOOD SPECIMENOrdering Facility: [facility] Address: [address] [place] [address] Performed By: #### 2 4323-8, 95205-1, 3024-7, 3016-3 ####[facility] LABCLIA [id number] [place] [address] [place] CO2 [Moles/Vol] 23 mmol/L Normal 22-30 [facility] Comment on above: Order Comment: Speci men Type: BLOOD SPECIMENOrdering Facility: [facility] Address: [address] [place] [address] Performed By: #### 2 4323-8, 16235-2, 3024-7, 3016-3 ####[facility] LABCLIA [id number] [place] [address] [place] Creatinine [Mass/Vol] 0.92 mg/dL Normal 0.58-0.96 [facility] Comment on above: Order Comment: Speci men Type: BLOOD SPECIMENOrdering Facility: [facility] Address: [address] [place] [address] Performed By: #### 2 4323-8, 47395-8, 3024-7, 3016-3 ####[facility] LABCLIA [id number] [place] [address] [place] eGFRcr SerPlBld CKD-EPI 2020 70 mL/min/1.73m??? Normal >=60 [facility] Comment on above: Order Comment: Nohemi daniels Type: BLOOD SPECIMENOrdering Facility: [facility] Address: [address] [place] [address] Result Comment: Laura mated Glomerular Filtration Rate (eGFR) is calculated using the 2020 CKD-EPI creatinine equation. This equation utilizes serum creatinine, sex, and age as parameters. The creatinine assay has traceable calibration to isotope dilution-mass spectrometry. Refer to KDIGO guidelines for clinical interpretation. In patients with unstable renal function, e.g. those with acute kidney injury, the eGFR may not accurately reflect actual GFR. Performed By: #### 2 4323-8, 74892-7, 3024-7, 3016-3 ####[facility] LABCLIA [id number] [place] [id number] [place] Glucose [Mass/Vol] 89 mg/dL Normal 74-99 [facility] Comment on above: Order Comment: Nohemi daniels Type: BLOOD SPECIMENOrdering Facility: [facility] Address: [address] [place] [address] Result Comment: The [place] Diabetes Association (ADA) provides guidance for cutoff values for fasting glucose and random glucose. The ADA defines fasting as no caloric intake for at least 8 hours. Fasting plasma glucose results between 100 to 125 [...] Standards of Medical Care in Diabetes 2016, [place] Diabetes Association. Diabetes Care. 2016.39(Suppl 1). Performed By: #### 2 4323-8, 18157-5, 3024-7, 3016-3 ####[facility] LABCLIA [id number] [place] [address] [place] Potassium [Moles/Vol] 3.9 mmol/L Normal 3.7-5.1 [facility] Comment on above: Order Comment: Speci men Type: BLOOD SPECIMENOrdering Facility: [facility] Address: [address] [place] [address] Performed By: #### 2 4323-8, 47809-9, 3023-7, 3015-3 ####[facility] LABCLIA [id number] [place] [address] [place] Protein [Mass/Vol] 7.0 g/dL Normal 6.3-8.0 [facility] Comment on above: Order Comment: Speci men Type: BLOOD SPECIMENOrdering Facility: [facility] Address: [address] [place] [address] Performed By: #### 2 4323-8, 15822-0, 7, 3015-3 ####[facility] LABCLIA [id number] [place] [id number] [place] Sodium [Moles/Vol] 143 mmol/L Normal 136-144 [facility] Comment on above: Order Comment: Speci men Type: BLOOD SPECIMENOrdering Facility: [facility] Address: [address] [place] [address] Performed By: #### 2 4323-8, 49362-5, 3023-11, 3015-3 ####[facility] LABCLIA [id number] [place] [id number] [place] Urea nitrogen [Mass/Vol] 9 mg/dL Normal 7-21 [facility] Comment on above: Order Comment: Speci men Type: BLOOD SPECIMENOrdering Facility: [facility] Address: [address] [place] [address] Performed By: #### 2 4323-8, 58215-6, 7, 3015-3 ####[facility] LABCLIA [id number] [place] [address] [place] HbA1c (Bld)on 03-03-2025 Average glucose Estimated from glycated hemoglobin (Bld) [Mass/Vol] 117 mg/dL Normal [facility] Comment on above: Order Comment: Speci men Type: BLOOD SPECIMENOrdering Facility: [facility] Address: [address] [place] [address] Result Comment: eAG: (Estimated average glucose) is a calculated value from HgbA1c and is brand representative of the average blood glucose level in the last 2-3 month period. Performed By: #### 5 5454-3 ####[facility] LABCLIA [id number] [place] [address] [place] HbA1c (Bld) [Mass fraction] 5.7 % High 4.3-5.6 [facility] Comment on above: Order Comment: Speci men Type: BLOOD SPECIMENOrdering Facility: [facility] Address: [address] [place] [address] Result Comment: Amer [place] Diabetes Association guidelines indicate that patients with HgbA1c in the range 5.7-6.4% are at increased risk for development of diabetes, and intervention by lifestyle modification may be beneficial. HgbA1c greater or equal to 6.5% is considered diagnostic of diabetes. Performed By: #### 5 5454-3 ####[facility] LABCLIA [id number] [place] [address] [place] Lipid 1996 panelon 5 Cholesterol [Mass/Vol] 160 mg/dL Normal <200 [facility] Comment on above: Order Comment: Speci men Type: BLOOD SPECIMENOrdering Facility: [facility] Address: [address] [place] [address] Result Comment: <200 mg/dL, Desirable 200-239 mg/dL, Borderline high >239 mg/dL, High Performed By: #### 2 4323-8, 42808-8, 3024-7, 3016-3 ####[facility] LABCLIA [id number] [place] [address] [place] Cholesterol in HDL [Mass/Vol] 57 mg/dL Normal >39 [facility] Comment on above: Order Comment: Speci men Type: BLOOD SPECIMENOrdering Facility: [facility] Address: [address] [place] [address] Result Comment: 40-5 9 mg/dL, Acceptable >59 mg/dL, High: Negative risk factor for coronary heart disease <40 mg/dL, Low: Positive risk factor for coronary heart disease Performed By: #### 2 4323-8, 13934-9, 3023-, 3015-3 ####[facility] LABCLIA [id number] [place] [address] [place] Cholesterol in LDL [Mass/Vol] 73 mg/dL Normal <100 [facility] Comment on above: Order Comment: Speci men Type: BLOOD SPECIMENOrdering Facility: [facility] Address: [address] [place] [address] Result Comment: <100 mg/dL, Optimal 100-129 mg/dL, Near optimal/above optimal 130-159 mg/dL, Borderline high 160-189 mg/dL, High >189 mg/dL, Very high Secondary prevention optimal LDL Cholesterol levels are recommended to be <70 mg/dL LDL cholesterol is calculated using the Arceo-NIH equation. Performed By: #### 2 4323-8, 41763-9, 3023-11, 3015-07 ####[facility] LABCLIA [id number] [place] [id number] [place] Cholesterol in LDL/Cholesterol in HDL [Mass ratio] 1.28 {ratio} Normal <2.54 [facility] Comment on above: Order Comment: Marai jeremiah Type: BLOOD SPECIMENOrdering Facility: [facility] Address: [address] [place] [address] Result Comment: Refdevan josephce: 1. National Cholesterol Education Program ATP III Guideline At-A-Glance Quick Desk Reference: National Heart, Lung, and Blood [place]. National Institutes of Health. 2001: NIH Publication No. 01-3305. 2. An International Atherosclerosis Society position paper: global recommendations for the management of dyslipidemia: executive summary, Atherosclerosis. 2014: 232(2):410-413. Performed By: #### 2 4323-8, 55277-0, 3023-7, 3015-3 ####[facility] LABCLIA [id number] [place] [address] [place] Cholesterol in VLDL [Mass/Vol] 27 mg/dL Normal <30 [facility] Comment on above: Order Comment: Speci men Type: BLOOD SPECIMENOrdering Facility: [facility] Address: [address] [place] [address] Performed By: #### 2 4323-8, 72093-3, 3023-7, 3015-3 ####[facility] LABCLIA [id number] [place] [address] [place] Cholesterol non HDL [Mass/Vol] 103 mg/dL Normal <130 [facility] Comment on above: Order Comment: Speci men Type: BLOOD SPECIMENOrdering Facility: [facility] Address: [address] [place] [address] Result Comment: <130 mg/dL, Optimal 130-159 mg/dL, Near optimal/above optimal 160-189 mg/dL, Borderline high 190-219 mg/dL, High >219 mg/dL, Very high Secondary prevention optimal non HDL Cholesterol levels are recommended to be <100 mg/dL Performed By: #### 2 4323-8, 99290-1, 3023-7, 3015-3 ####[facility] LABCLIA [id number] [place] [address] [place] Cholesterol.total/Cho lesterol in HDL [Mass ratio] 2.81 {ratio} Normal <5.10 [facility] Comment on above: Order Comment: Speci men Type: BLOOD SPECIMENOrdering Facility: [facility] Address: [address] [place] [address] Performed By: #### 2 4323-8, 61358-1, 3023-11, 3015-3 ####[facility] LABCLIA [id number] [place] [id number] [place] FASTING TIME 13 hrs Normal [facility] Comment on above: Order Comment: Speci men Type: BLOOD SPECIMENOrdering Facility: [facility] Address: [address] [place] [address] Performed By: #### 2 4323-8, 99393-9, 3023-7, 3015-3 ####[facility] LABCLIA [id number] [place] [address] [place] Triglyceride [Mass/Vol] 181 mg/dL High <150 [facility] Comment on above: Order Comment: Speci men Type: BLOOD SPECIMENOrdering Facility: [facility] Address: [address] [place] [address] Result Comment: <150 mg/dL, Normal 150-199 mg/dL, Borderline high 200-499 mg/dL, High >499 mg/dL, Very high Performed By: #### 2 4323-8, 18508-0, 3024-7, 3016-3 ####[facility] LABCLIA [id number] [place] [address] [place] Magnesium SerPl-mCncon 03-03 Magnesium [Mass/Vol] 2.2 mg/dL Normal 1.7-2.3 [facility] Comment on above: Order Comment: Speci men Type: BLOOD SPECIMENOrdering Facility: [facility] Address: [address] [place] [address] Performed By: #### 1 9123-9 ####[facility] LABCLIA [id number] [place] [address] [place] T4 Free SerPl-mCncon 025 Free T4 [Mass/Vol] 1.0 ng/dL Normal 0.9-1.7 [facility] Comment on above: Order Comment: Speci men Type: BLOOD SPECIMENOrdering Facility: [facility] Address: [address] [place] [address] Performed By: #### 2 4323-8, 96708-4, 3024-7, 3016-3 ####[facility] LABCLIA [id number] [place] [address] [place] TSH SerPl-aCncon 03-03-2025 TSH Qn 0.601 m[IU]/L Normal 0.270-4.200 [facility] Comment on above: Order Comment: Speci men Type: BLOOD SPECIMENOrdering Facility: [facility] Address: [address] [place] [id number] Performed By: #### 2 4323-8, 26707-8, 3024-7, 3016-3 ####[facility] LABCLIA [id number] [place] [id number] [place] Surgery Visit Reporton 03-01 Surgery Visit Report [facility] [address] [place], [place] [address] OFFICE VISIT Date of Service: 03/01/25 MR#: [id number] Acct: [id number] Name: CHEY JEFFERS Rep #: [id number] : 1960 Provider: Dr. 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 Is patient in pain?: Yes (mid abdomen) Pain scale (1-10): 4 Allergies aspirin Allergy (Severe, Verified 03/01/25 09:43) Anaphylaxis acetaminophen (From Vicodin) Allergy (Verified 03/01/25 09:43) MAKES MY CHEST HURT azithromycin (From Zithromax) Allergy (Verified 03/01/25 09:43) Itching budesonide Allergy (Verified 03/01/25 09:43) Rash ciprofloxacin (From Cipro) Allergy (Verified 03/01/25 09:43) Hives codeine Allergy (Verified 03/01/25 09:43) Hives difluprednate (From Durezol) Allergy (Verified 03/01/25 09:43) Rash doxycycline Allergy (Verified 03/01/25 09:43) Rash hydrocodone bitartrate (From Vicodin) Allergy (Verified 03/01/25 09:43) Hives ibuprofen (From Motrin) Allergy (Verified 03/01/25 09:43) Shortness of breath ketorolac tromethamine (From Toradol) Allergy (Verified 03/01/25 09:43) Swelling maprotiline Allergy (Verified 03/01/25 09:43) Itching meperidine HCl (From Demerol) Allergy (Verified 03/01/25 09:43) Rash mirtazapine Allergy (Verified 03/01/25 09:43) Other Penicillins Allergy (Verified 03/01/25 09:43) Rash prednisone Allergy (Verified 03/01/25 09:43) Itching tramadol HCl (From Ultram) Allergy (Verified 03/01/25 09:43) Chest tightness vancomycin Allergy (Verified 03/01/25 09:43) Swelling acetylcysteine (From Mucomyst) Adverse Reaction (Verified 03/01/25 09:43) ITCHING, REDNESS citalopram hydrobromide (From Celexa) Adverse Reaction (Verified 03/01/25 09:43) Nausea/Vom/Diarrhea escitalopram oxalate (From Lexapro) Adverse Reaction (Verified 03/01/25 09:43) Nausea/Vom/Diarrhea nitrofurantoin (From Macrobid) Adverse Reaction (Verified 03/01/25 09:43) Diarrhea nitrofurantoin macrocrystalline (From Macrobid) Adverse Reaction (Verified 03/01/25 09:43) Diarrhea oxycodone Adverse Reaction (Verified 03/01/25 09:43) Hives pregabalin (From Lyrica) Adverse Reaction (Verified 03/01/25 09:43) Swelling sulfamethoxazole (From Bactrim) Adverse Reaction (Verified 03/01/25 09:43) Other trimethoprim (From Bactrim) Adverse Reaction (Verified 03/01/25 09:43) Unknown venlafaxine HCl (From Effexor) Adverse Reaction (Verified 03/01/25 09:43) Nausea/Vom/Diarrhea Medications ???Medication ???Instructions ???Recorded ???Confirmed ???Type albuterol sulfate 90 mcg/actuation 1 - 2 puff IH Q4H PRN PRN Asthma 07/09/14 03/01/25 History aerosol inhaler (Ventolin HFA) clonazepam 0.5 mg tablet 0.5 mg PO BID ANXIETY 07/09/14 History fluticasone propionate 50 1 spray DAILY PRN PRN Allergies 03/01/25 History mcg/actuation nasal spray,suspension lansoprazole 30 mg capsule,delayed 30 mg PO DAILY , 07/09/14 History release (Prevacid) simvastatin 40 mg tablet 40 mg PO QHS CHOLESTEROL 07/09/14 03/01/25 History loperamide 2 mg capsule 2 mg PO Q6H PRN PRN Diarrhea ##20 07/22/14 03/01/25 Rx fexofenadine 180 mg tablet 180 mg PO QHS . 03/26/17 03/01/25 History (Nan Allergy) imipramine HCl 50 mg tablet 50 mg PO QHS depression 01/07/18 1 History budesonide-formoterol HFA 160 2 puff inhalation BID 04/04/18 History mcg-4.5 mcg/actuation aerosol inhaler (Symbicort) calcium 200 mg (as 1 ea PO DAILY 04/04/18 03/01/25 Hi story citrate)-vitamin D3 6.25 mcg (250 unit) tablet (Citracal-D3 Petites) ipratropium 0.5 mg-albuterol 3 mg 3 ml inhalation Q4H PRN BREATHING 04/04/18 03/01/25 History (2.5 mg base)/3 mL nebulization soln sucralfate 1 gram tablet 1 g PO BID 04/04/18 03/01/25 Histo ry montelukast 10 mg tablet 10 mg PO DAILY 02/06/22 03/01/25 H istory (Singulair) vibegron 75 mg tablet (Gemtesa) 75 mg PO DAILY 07/20/24 03/01/25 H istory estradiol 0.5 mg tablet 0.5 mg PO QDAY 01/14/25 03/01/25 H istory topiramate 100 mg tablet (Topamax) 100 mg PO QDAY 01/14/25 03/01/25 History Have you fallen in the past year?: No [facility] Medical History History of stress test History of deviated nasal septum Wears dentures History of steroid therapy Arthritis Bladder disease High cholesterol History of IBS Non-smoker Shortness of breath on exertion COPD (chronic obstructive pulmonary di (more content not included)... [facility] CHEY JEFFERS ([id number]) 1960 F Date Time Provider Department 02/17/25 11:30 AM ANA CRISTINA URBINA PULMWS During your visit today, we recorded the following information about you: Pulse Respiration Blood pressure Weight 95/minute 15/minute 120/78 65.8 kg Ana Cristina Urbina, CORE MAKER HELPER.GEOSCIENCE LABORATORY TECHNICIAN 02/17/2025 12:42 PM Signed Pulmonary Medicine Patients name: Chey Jeffers PCP: Edda Oconnor MD CC: follow-up HPI: Chey Jeffers is a 64 year old female non-smoker with PMH significant for ankylosing spondylitis, depression, GERD, nasal polyps, recurrent sinusitis and asthma. NELSY 06/2024 with improved but persistently elevated nitric oxide. Biologic therapy discussed but patient reluctant. NELSY 11/2024 with poor control of her asthma in the setting of frequently forgetting to use her inhaler. C/o worsening anxiety/depression since the loss of her mom. Was having recurrent sinus infections. Nitric oxide at that time 134 ppb. Current therapy with Symbicort and PRN Albuterol. Also uses Singulair and OTC antihistamines for multiple allergies. She presents today for repeat nitric oxide and follow-up. Since her last visit, she reports better compliance with Symbicort but is still missing doses frequently. She has ongoing concerns with depression/anxiety. Also dealing with a hernia that was supposed to be repaired but has not been done yet. Also been stressed d/t her brothers health whom she cares for. Had repeat nitric oxide today which is improved to 71 ppb. She is currently being treated with Medrol dose pack and just finished Levaquin for recurrent sinus infection. She follows with [facility]. Has soreness in her mouth and was treating for thrush. Today, patient reports occasional cough and will cough up varies colors of sputum d/t recurrent sinus infections. Notes PND frequently. Her ENT previously recommended CT of her sinuses but has not been done. Denies wheezing since treatment started. No dyspnea at rest. Exertional dyspnea has not changed and notes with heavy exertion. No fevers, chills, or night sweats. Albuterol use is rare. 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 Mazariegos [facility]. Pure hypercholesterolemia Serrated adenoma of colon 07/29/2014 Symptomatic menopausal or female climacteric states Unspecified sinusitis (chronic) 06/21/2008 Allergies: Amoxicillin Rash Comment:Rash a few days into a course of treatment. Noted that had not reacted to test dose penicillin but developed rash after a few days on amoxicillin. Aspirin [Salicylate* Swelling, Shortness of Breath Comment:wheezing,swelli ng lips,rash,hives Codeine Hives Vicodin [Hydrocodon* Hives Cefdinir Itching Comment:Itchy scaly rash. (Patient may take penicillin and other penicillin type antibiotics. See allergy visit on 01/08/23) Demerol [Meperidine* Rash Tylenol [Acetaminop* Intolerance, Shortness of Breath Comment:asthma; makes it hard for her to breathe Ambien [Zolpidem] Intolerance Comment:Was sleepwalking (arranging books but hull not recall) Bactrim [Sulfametho* Comment:uncertain Budesonide Rash Celexa [Citalopram * GI Upset Doxy [Doxycycline] Comment:rash and asthma Durezol [Diflupredn* Rash Ibuprofen Shortness of Breath Keflex [Cephalexin] Intolerance Lexapro [Escitalopr* GI Upset Lyrica [Pregabalin] Mental Status Change Comment:dizzy Macrobid [Nitrofura* Diarrhea Maprotiline Itching Monurol [Fosfomycin] Diarrhea Mucomyst [Acetylcys* Cough Comment:increase wheezing Oxycodone Shortness of Breath Penicillins Hives Comment:Allergy skin tests to penicillin were negative. The patient took a test dose of amoxicillin and tolerated this without adverse reaction. The patient is at low risk for a severe, immediate, IgE-mediated reaction to penicillin, amoxicillin and other penicillin-type antibiotics. Skin tests are unreliable for predicting delayed reactions. Toradol [Ketorolac * Swelling Ultram [Tramadol Hc* Other: See Comments Comment:chest pains Vancomycin Other: See Comments Comment:Wheezing after taking, legs swollen and tongue swelling and scratchy neck Venlafaxine GI Upset Zithromax [Azithrom* Itching Mirtazapine Other: See Comments Comme (more content not included)... Normal [facility] Gram Stainon 02-14-2025 GS Gram Stain No organisms seen No Epithelial cells Rare White Blood Cells Normal [facility] Comment on above: Performed By: #### M 100.2500, M1.1999 ####[facility] [address] [place], [place], [address] Nasopharyngeal Cultureon NAC No growth in 48 hours. Normal [facility] Comment on above: Performed By: #### M 100.2500, M1.1999 ####[facility] [address] [place], [address] .Auto Diffon 02-09-2025 Basophil, Absolute 0.1 10 3/mcL Normal 0.0-0.3 [facility] Comment on above: Performed By: #### L IP, CMP, GFR, MDW, ANEU, ADIFF, CBC #### [facility] [address] [place], [place] [address] Basophils/100 WBC (Bld) 0.8 % Normal 0.0-2.5 [facility] Comment on above: Performed By: #### L IP, CMP, GFR, MDW, ANEU, ADIFF, CBC #### [facility] [address] [place], [place] [address] Eosinophil, Absolute 0.7 10 3/mcL Normal 0.0-0.7 [facility] Comment on above: Performed By: #### L IP, CMP, GFR, MDW, ANEU, ADIFF, CBC #### [address] [address] Eosinophils/100 WBC (Bld) 10.4 % High 0.0-6.0 [facility] Comment on above: Performed By: #### L IP, CMP, GFR, MDW, ANEU, ADIFF, CBC #### [address] [address] Lymphocyte, Absolute 1.8 10 3/mcL Normal 0.9-4.3 [facility] Comment on above: Performed By: #### L IP, CMP, GFR, MDW, ANEU, ADIFF, CBC #### [address] [address] Lymphocytes/100 WBC (Bld) 26.6 % Normal 20.0-40.0 [facility] Comment on above: Performed By: #### L IP, CMP, GFR, MDW, ANEU, ADIFF, CBC #### [address] [address] Monocyte, Absolute 0.5 10 3/mcL Normal 0.1-1.4 [facility] Comment on above: Performed By: #### L IP, CMP, GFR, MDW, ANEU, ADIFF, CBC #### [address] [address] Monocytes/100 WBC (Bld) 6.9 % Normal 2.0-13.0 [facility] Comment on above: Performed By: #### L IP, CMP, GFR, MDW, ANEU, ADIFF, CBC #### [address] [address] Neutrophils/100 WBC (Bld) 55.3 % Normal 50.0-75.0 [facility] Comment on above: Performed By: #### L IP, CMP, GFR, MDW, ANEU, ADIFF, CBC #### [address] [address] .GFRon 02-09-2025 Estimated Glomerular Filtration Rate 64 ml/min/1.73sqm Normal [facility] Comment on above: Result Comment: Stages of Chronic Kidney Disease (CKD) Stage Description eGFR(ml/min/1.73 sq.m.) CKD 1 Normal kidney function or >=90 normal kindney function with possible kidney damage (ex. Proteinuria) CKD 2 Kidney damage with mild loss 60-89 of kidney function CKD 3a Mild to moderate loss of kidney 45-59 function CKD 3b Moderate to severe loss of 30-44 of kindey function CKD 4 Severe loss of kidney function 15-29 CKD 5 Kidney failure <15 Note: (go live 2024) the eGFR calculation was updated to the 2020 CKD-EPI creatinine equation without a race factor to calculate the eGFR results. Performed By: #### L IP, CMP, GFR, MDW, ANEU, ADIFF, CBC #### [place] [address] .MDWon 02-09-2025 Monocyte Distribution Width 19.00 Normal 0.00-20.00 [facility] Comment on above: Result Comment: For ED adult patients suspected of sepsis, MDW<=20.0 does not rule out sepsis or risk of sepsis Performed By: #### L IP, CMP, GFR, MDW, ANEU, ADIFF, CBC #### [place] [address] .NEUABSon 02-09-2025 Neutrophil, Absolute 3.7 10 3/mcL Normal 2.3-8.1 [facility] Comment on above: Performed By: #### L IP, CMP, GFR, MDW, ANEU, ADIFF, CBC #### [place] [address] CBCon 02-09-2025 Erythrocyte distribution width (RBC) [Ratio] 15.3 % Normal 11.5-15.5 [facility] Comment on above: Performed By: #### L IP, CMP, GFR, MDW, ANEU, ADIFF, CBC #### [place] [address] Hematocrit (Bld) [Volume fraction] 40.4 % Normal 34.0-46.0 [facility] Comment on above: Performed By: #### L IP, CMP, GFR, MDW, ANEU, ADIFF, CBC #### [place] [address] Hgb 13.2 G/dL Normal 12.0-16.0 [facility] Comment on above: Performed By: #### L IP, CMP, GFR, MDW, ANEU, ADIFF, CBC #### [place] [address] MCH (RBC) [Entitic mass] 27.3 pg Normal 27.0-33.0 [facility] Comment on above: Performed By: #### L IP, CMP, GFR, MDW, ANEU, ADIFF, CBC #### [place] [address] MCHC 32.7 G/dL Normal 32.0-36.0 [facility] Comment on above: Performed By: #### L IP, CMP, GFR, MDW, ANEU, ADIFF, CBC #### [place] [address] MCV (RBC) [Entitic vol] 83.7 fL Normal 80.0-99.0 [facility] Comment on above: Performed By: #### L IP, CMP, GFR, MDW, ANEU, ADIFF, CBC #### [place] [address] Platelet 262 10 3/mcL Normal 150-450 [facility] Comment on above: Performed By: #### L IP, CMP, GFR, MDW, ANEU, ADIFF, CBC #### [place] [address] Platelet mean volume (Bld) [Entitic vol] 7.6 fL Normal 6.6-10.5 [facility] Comment on above: Performed By: #### L IP, CMP, GFR, MDW, ANEU, ADIFF, CBC #### [address] [place] [address] RBC 4.83 10 6/mcL Normal 4.10-5.30 [facility] Comment on above: Performed By: #### L IP, CMP, GFR, MDW, ANEU, ADIFF, CBC #### [address] [address] WBC 6.7 10 3/mcL Normal 4.5-10.8 [facility] Comment on above: Performed By: #### L IP, CMP, GFR, MDW, ANEU, ADIFF, CBC #### [address] [address] CMPon 02-09-2025 Albumin Level 3.3 G/dL Low 3.4-4.8 [facility] Comment on above: Performed By: #### L IP, CMP, GFR, MDW, ANEU, ADIFF, CBC #### [address] [address] Albumin/Globulin [Mass ratio] 1.1 {ratio} Normal 1.1-2.5 [facility] Comment on above: Performed By: #### L IP, CMP, GFR, MDW, ANEU, ADIFF, CBC #### [address] [address] ALP [Catalytic activity/Vol] 80 U/L Normal 40-135 [facility] Comment on above: Performed By: #### L IP, CMP, GFR, MDW, ANEU, ADIFF, CBC #### [address] [address] ALT [Catalytic activity/Vol] 18 U/L Normal 14-59 [facility] Comment on above: Performed By: #### L IP, CMP, GFR, MDW, ANEU, ADIFF, CBC #### [address] [address] AST [Catalytic activity/Vol] 9 U/L Low 10-40 [facility] Comment on above: Performed By: #### L IP, CMP, GFR, MDW, ANEU, ADIFF, CBC #### [address] [place] [address] Bili Total 0.2 mg/dL Normal 0.2-1.0 [facility] Comment on above: Result Comment: Use of this assay is not recommended for patients undergoing treatment with eltrombopag due to the potential for falsely elevated results. Performed By: #### L IP, CMP, GFR, MDW, ANEU, ADIFF, CBC #### [address] [address] BUN/Creatinine Ratio 13 ratio Normal 7-27 [facility] Comment on above: Performed By: #### L IP, CMP, GFR, MDW, ANEU, ADIFF, CBC #### [address] [address] Calcium [Mass/Vol] 9.2 mg/dL Normal 8.4-10.2 [facility] Comment on above: Performed By: #### L IP, CMP, GFR, MDW, ANEU, ADIFF, CBC #### [address] [address] Chloride [Moles/Vol] 112 mmol/L High 98-107 [facility] Comment on above: Performed By: #### L IP, CMP, GFR, MDW, ANEU, ADIFF, CBC #### [address] [address] CO2 [Moles/Vol] 28 mmol/L Normal 23-31 [facility] Comment on above: Performed By: #### L IP, CMP, GFR, MDW, ANEU, ADIFF, CBC #### [address] [address] Creatinine [Mass/Vol] 0.99 mg/dL High 0.51-0.95 [facility] Comment on above: Performed By: #### L IP, CMP, GFR, MDW, ANEU, ADIFF, CBC #### [address] [address] Electrolyte Balance 5.0 mEq/L Normal 4.0-15.0 [facility] Comment on above: Performed By: #### L IP, CMP, GFR, MDW, ANEU, ADIFF, CBC #### [address] [address] Globulin 3.1 G/dL Normal 2.7-4.4 [facility] Comment on above: Performed By: #### L IP, CMP, GFR, MDW, ANEU, ADIFF, CBC #### [address] [address] Glucose [Mass/Vol] 90 mg/dL Normal 80-115 [facility] Comment on above: Performed By: #### L IP, CMP, GFR, MDW, ANEU, ADIFF, CBC #### [address] [address] Potassium [Moles/Vol] 3.9 mmol/L Normal 3.5-5.1 [facility] Comment on above: Performed By: #### L IP, CMP, GFR, MDW, ANEU, ADIFF, CBC #### [address] [address] Sodium [Moles/Vol] 145 mmol/L Normal 136-145 [facility] Comment on above: Performed By: #### L IP, CMP, GFR, MDW, ANEU, ADIFF, CBC #### [address] [address] Total Protein 6.4 G/dL Normal 6.4-8.2 [facility] Comment on above: Performed By: #### L IP, CMP, GFR, MDW, ANEU, ADIFF, CBC #### [address] [address] Urea nitrogen [Mass/Vol] 13 mg/dL Normal 7-18 [facility] Comment on above: Performed By: #### L IP, CMP, GFR, MDW, ANEU, ADIFF, CBC #### [address] [address] [address] ABD/PELVIS W/ IV CONTRAST ONLYon 02-09-2025 CT ABD/PELVIS W/ IV CONTRAST ONLY ORIGINAL EXAMINATION: CT OF THE ABDOMEN AND PELVIS WITH CONTRAST 02/09/2025 9:53 am TECHNIQUE: CT of the abdomen and pelvis was performed with the administration of intravenous contrast. Multiplanar reformatted images are provided for review. Automated exposure control, iterative reconstruction, and/or weight based adjustment of the mA/kV was utilized to reduce the radiation dose to as low as reasonably achievable. COMPARISON: None. HISTORY: ORDERING SYSTEM PROVIDED HISTORY: Reason for Exam: abdominal pain FINDINGS: Minor degenerative changes are noted in the spine. Mild hip osteoarthritis also seen. No acute osseous abnormality seen. Small areas of scarring are evident at the lung bases. Small hiatal hernia noted. Cholecystectomy clips are present. No focal lesions seen. The bile ducts are mildly prominent but the common bile duct appears to be normal in caliber. The pancreas, adrenal glands and spleen are unremarkable. Small scattered renal cysts are present. No other kidney finding. No adenopathy, free air or free fluid is evident. No focal urinary bladder lesion is evident although there may be a small diverticulum at the right lateral aspect. Mild sigmoid diverticulosis is present, and there are scattered diverticula elsewhere as well. No evidence for diverticulitis. There is evidence for right colon anastomosis from previous surgery. Small lobulated periumbilical fat containing hernia seen. No additional contributory abnormality. IMPRESSION: No acute abnormality identified. Diverticulosis without diverticulitis. Interpreted by: Lauren Devi MD Preliminary Report By: Lauren Devi MD Electronically signed By Lauren Devi MD Dictated Date: 02/09/2025 9:58:57 AM Prelim Date: 02/09/2025 10:01:59 AM Sign Date: 02/09/2025 10:01:59 AM Ordering Provider: TAMIKO ARMENTA Normal [facility]ORATORYOrdered By: SYSTEM SYSTEM on 02-09-2025 Albumin BCP dye [Mass/Vol] 3.3 G/dL Low 3.4 - 4.8 G/dL AO ADM SS Albumin/Globulin [Mass ratio] 1.1 {ratio} Normal 1.1 - 2.5 ratio AO ADM SS ALP [Catalytic activity/Vol] 80 U/L Normal 40 - 135 U/L AO ADM SS ALT With P-5'-P [Catalytic activity/Vol] 18 U/L Normal 14 - 59 U/L AO ADM SS AST With P-5'-P [Catalytic activity/Vol] 9 U/L Low 10 - 40 U/L AO ADM SS Basophils (Bld) [#/Vol] 0.1 103/mcL Normal 0.0 - 0.3 10^3/mcL AO Workflow SS Basophils/100 WBC (Bld) 0.8 % Normal 0.0 - 2.5 % AO Workflow SS Bilirubin [Mass/Vol] 0.2 mg/dL Normal 0.2 - 1 .0 mg/dL AO ADM SS Comment on above: Interpretive Data: U se of this assay is not recommended for patients undergoing treatment with eltrombopag due to the potential for falsely elevated results. Calcium [Mass/Vol] 9.2 mg/dL Normal 8.4 - 10. 2 mg/dL AO ADM SS Chloride [Moles/Vol] 112 mmol/L High 98 - 10 7 mmol/L AO ADM SS CO2 [Moles/Vol] 28 mmol/L Normal 23 - 31 mmol/L AO ADM SS Creatinine [Mass/Vol] 0.99 mg/dL High 0.51 - 0.95 mg/dL AO ADM SS Electrolyte Balance 5.0 mEq/L Normal 4.0 - 15 .0 mEq/L AO ADM SS Eosinophil, Absolute 0.7 103/mcL Normal 0.0 - 0 .7 10^3/mcL AO Workflow SS Eosinophils/100 WBC (Bld) 10.4 % High 0.0 - 6.0 % AO Workflow SS Erythrocyte distribution width (RBC) [Ratio] 15.3 % Normal 11.5 - 15.5 % AO Workflow SS Globulin 3.1 G/dL Normal 2.7 - 4.4 G/dL AO ADM SS GLOMERULAR FILTRATION RATE/1.73 SQ M.PREDICTED:ARVRAT:PT :SER/PLAS/BLD:QN:CREA TININE-BASED FORMULA (CKD-EPI 2020) 64 ml/min/1.73sqm Invalid Interpretation Code AO Chemistry S Comment on above: Interpretive Data: Stages of Chronic Kidney Disease (CKD) Stage Description eGFR(ml/min/1.73 sq.m.) CKD 1 Normal kidney function or >=90 normal kindney function with possible kidney damage (ex. Proteinuria) CKD 2 Kidney damage with mild loss 60-89 of kidney function CKD 3a Mild to moderate loss of kidney 45-59 function CKD 3b Moderate to severe loss of 30-44 of kindey function CKD 4 Severe loss of kidney function 15-29 CKD 5 Kidney failure <15 Note: (go live 2024) the eGFR calculation was updated to the 2020 CKD-EPI creatinine equation without a race factor to calculate the eGFR results. Glucose [Mass/Vol] 90 mg/dL Normal 80 - 115 mg/dL AO ADM SS Hematocrit (Bld) [Volume fraction] 40.4 % Normal 34.0 - 46.0 % AO Workflow SS Hemoglobin (Bld) [Mass/Vol] 13.2 G/dL Normal 12.0 - 16.0 G/dL AO Workflow SS Lipase [Catalytic activity/Vol] 33 U/L Normal 16 - 77 U/L AO ADM SS Lymphocytes (Bld) [#/Vol] 1.8 103/mcL Normal 0.9 - 4.3 10^3/mcL AO Workflow SS Lymphocytes/100 WBC (Bld) 26.6 % Normal 20.0 - 40.0 % AO Workflow SS MCH (RBC) [Entitic mass] 27.3 pg Normal 27.0 - 33.0 pg AO Workflow SS MCHC 32.7 G/dL Normal 32.0 - 36.0 G/dL AO Workflow SS MCV (RBC) [Entitic vol] 83.7 fL Normal 80.0 - 99.0 fL AO Workflow SS Monocyte distribution width Auto (Bld) [Entitic vol] 19.00 1 Normal 0.00 - 20.00 AO Workflow SS Comment on above: Result Comment: For ED adult patients suspected of sepsis, MDW<=20.0 does not rule out sepsis or risk of sepsis Monocytes (Bld) [#/Vol] 0.5 103/mcL Normal 0.1 - 1.4 10^3/mcL AO Workflow SS Monocytes/100 WBC (Bld) 6.9 % Normal 2.0 - 13.0 % AO Workflow SS Neutrophils (Bld) [#/Vol] 3.7 103/mcL Normal 2.3 - 8.1 10^3/mcL AO Workflow SS Neutrophils/100 WBC (Bld) 55.3 % Normal 50.0 - 75.0 % AO Workflow SS Platelet mean volume (Bld) [Entitic vol] 7.6 fL Normal 6.6 - 10.5 fL AO Workflow SS Platelets (Bld) [#/Vol] 262 103/mcL Normal 150 - 450 10^3/mcL AO Workflow SS Potassium [Moles/Vol] 3.9 mmol/L Normal 3.5 - 5.1 mmol/L AO ADM SS Protein [Mass/Vol] 6.4 G/dL Normal 6.4 - 8.2 G/dL AO ADM SS RBC (Bld) [#/Vol] 4.83 106/mcL Normal 4.10 - 5.3 0 10^6/mcL AO Workflow SS Sodium [Moles/Vol] 145 mmol/L Normal 136 - 145 mmol/L AO ADM SS Urea nitrogen [Mass/Vol] 13 mg/dL Normal 7 - 18 mg/dL AO ADM SS Urea nitrogen/Creatinine [Mass ratio] 13 ratio Normal 7 - 27 ratio AO ADM SS WBC (Bld) [#/Vol] 6.7 103/mcL Normal 4.5 - 10.8 10^3/mcL AO Workflow SS LABORATORYOrdered By: Janelle Brand on 02-09-2025 Color (U) Yellow (02/09/25 9:15 AM) Normal Yellow AO Auto Urine SS Glucose (U) [Mass/Vol] Negative Normal Negative AO Auto Urine SS Ketones Ql (U) Negative Normal Negative AO Auto Urine SS UA Appear Clear (02/09/25 9:15 AM) Normal Clear AO Auto Urine SS UA Bili Negative (02/09/25 9:15 AM) Normal Negative AO Auto Urine SS UA Blood Negative (02/09/25 9:15 AM) Normal Negative AO Auto Urine SS UA Leuk Est Negative (02/09/25 9:15 AM) Normal Negative AO Auto Urine SS UA Nitrite Negative (02/09/25 9:15 AM) Normal Negative AO Auto Urine SS UA pH 7.0 (02/09/25 9:15 AM) Normal 5.0 - 8.0 AO Auto Urine SS UA Protein Negative Normal Negative AO Auto Urine SS UA Spec Grav 1.020 (02/09/25 9:15 AM) Normal 1.015-1.025 AO Auto Urine SS UA Specimen Type Clean Catch (02/09/25 9:15 AM) Normal AO Auto Urine SS UA Urobilinogen 0.2 E.U./dL Normal 0.2-1.0 AO Auto Urine SS LIPon 02-09-2025 Lipase Level 33 U/L Normal 16-77 [facility] Comment on above: Performed By: #### L IP, CMP, GFR, MDW, ANEU, ADIFF, CBC #### [address] [address] UAon 02-09-2025 Color (U) Yellow Normal Yellow [facility] Comment on above: Performed By: #### U A #### [address] [address] Glucose (U) [Mass/Vol] Negative Normal Negative [facility] Comment on above: Performed By: #### U A #### [address] [address] Ketones Ql (U) Negative Normal Negative [facility] Comment on above: Performed By: #### U A #### [place] [address] UA Appear Clear Normal Clear [facility] Comment on above: Performed By: #### U A #### [place] [address] UA Blood Negative Normal Negative [facility] Comment on above: Performed By: #### U A #### [address] [address] UA Leuk Est Negative Normal Negative [facility] Comment on above: Performed By: #### U A #### [address] [address] UA Nitrite Negative Normal Negative [facility] Comment on above: Performed By: #### U A #### [place] [address] UA pH 7.0 Normal 5.0 - 8.0 [facility] Comment on above: Performed By: #### U A #### [place] [address] UA Protein Negative Normal Negative [facility] Comment on above: Performed By: #### U A #### [address] [address] UA Spec Grav 1.020 Normal 1.015-1.025 [facility] Comment on above: Performed By: #### U A #### [place] [address] [place], [place] [address] UA Specimen Type Clean Catch Normal [facility] Comment on above: Performed By: #### U A #### [place] [address] [place], [place] [address] UA Urobilinogen 0.2 E.U./dL Normal 0.2-1.0 [facility] Comment on above: Performed By: #### U A #### [place] [address] [place], [place] [address] Urobilinogen (U) [Mass/Vol] Negative Normal Negative [facility] Comment on above: Performed By: #### U A #### [address] [address] Gastroenterology Visit Repor ton 01-14-2025 Gastroenterology Visit Report [facility] [address] [place] [address] OFFICE VISIT Date of Service: 01/14/25 MR#: [id number] Acct: [id number] Name: CHEY JEFFERS Rep #: [id number] : 1960 Provider: Hugo Thomason DO Age/Sex: 64/F Location: [facility] [place] [place] Status: Signed Intake Vital Signs 10/22/24 16:19 Height 5 ft 1 in Intake Visit Reasons: Pancreatic Lesion Allergies aspirin Allergy (Severe, Verified 11/11/24 08:39) Anaphylaxis acetaminophen (From Vicodin) Allergy (Verified 11/11/24 08:39) MAKES MY CHEST HURT azithromycin (From Zithromax) Allergy (Verified 11/11/24 08:39) Itching budesonide Allergy (Verified 11/11/24 08:39) Rash ciprofloxacin (From Cipro) Allergy (Verified 11/11/24 08:39) Hives codeine Allergy (Verified 11/11/24 08:39) Hives difluprednate (From Durezol) Allergy (Verified 11/11/24 08:39) Rash doxycycline Allergy (Verified 11/11/24 08:39) Rash hydrocodone bitartrate (From Vicodin) Allergy (Verified 11/11/24 08:39) Hives ibuprofen (From Motrin) Allergy (Verified 11/11/24 08:39) Shortness of breath ketorolac tromethamine (From Toradol) Allergy (Verified 11/11/24 08:39) Swelling maprotiline Allergy (Verified 11/11/24 08:39) Itching meperidine HCl (From Demerol) Allergy (Verified 11/11/24 08:39) Rash mirtazapine Allergy (Verified 11/11/24 08:39) Other Penicillins Allergy (Verified 11/11/24 08:39) Rash prednisone Allergy (Verified 11/11/24 08:39) Itching tramadol HCl (From Ultram) Allergy (Verified 11/11/24 08:39) Chest tightness vancomycin Allergy (Verified 11/11/24 08:39) Swelling acetylcysteine (From Mucomyst) Adverse Reaction (Verified 11/11/24 08:39) ITCHING, REDNESS citalopram hydrobromide (From Celexa) Adverse Reaction (Verified 11/11/24 08:39) Nausea/Vom/Diarrhea escitalopram oxalate (From Lexapro) Adverse Reaction (Verified 11/11/24 08:39) Nausea/Vom/Diarrhea nitrofurantoin (From Macrobid) Adverse Reaction (Verified 11/11/24 08:39) Diarrhea nitrofurantoin macrocrystalline (From Macrobid) Adverse Reaction (Verified 11/11/24 08:39) Diarrhea oxycodone Adverse Reaction (Verified 11/11/24 08:39) Hives pregabalin (From Lyrica) Adverse Reaction (Verified 11/11/24 08:39) Swelling sulfamethoxazole (From Bactrim) Adverse Reaction (Verified 11/11/24 08:39) Other trimethoprim (From Bactrim) Adverse Reaction (Verified 11/11/24 08:39) Unknown venlafaxine HCl (From Effexor) Adverse Reaction (Verified 11/11/24 08:39) Nausea/Vom/Diarrhea Medications ???Medication ???Instructions ???Recorded ???Confirmed ???Type albuterol sulfate 90 mcg/actuation 1 - 2 puff IH Q4H PRN PRN Asthma 07/09/14 01/14/25 History aerosol inhaler (Ventolin HFA) clonazepam 0.5 mg tablet 0.5 mg PO BID ANXIETY 07/09/1403/30 History fluticasone propionate 50 1 spray DAILY PRN PRN Allergies 01/14/25 History mcg/actuation nasal spray,suspension lansoprazole 30 mg capsule,delayed 30 mg PO DAILY , 07/09/14 History release (Prevacid) simvastatin 40 mg tablet 40 mg PO QHS CHOLESTEROL 07/09/14 01/14/25 History loperamide 2 mg capsule 2 mg PO Q6H PRN PRN Diarrhea ##20 07/22/14 01/14/25 Rx fexofenadine 180 mg tablet 180 mg PO QHS . 03/26/17 01/14/25 History (Nan Allergy) imipramine HCl 50 mg tablet 50 mg PO QHS depression 01/07/18 0 01/14/25 History budesonide-formoterol HFA 160 2 puff inhalation BID 04/04/1803/30 History mcg-4.5 mcg/actuation aerosol inhaler (Symbicort) calcium 200 mg (as 1 ea PO DAILY 04/04/18 01/14/25 Hi story citrate)-vitamin D3 6.25 mcg (250 unit) tablet (Citracal-D3 Petites) ipratropium 0.5 mg-albuterol 3 mg 3 ml inhalation Q4H PRN BREATHING 04/04/18 01/14/25 History (2.5 mg base)/3 mL nebulization soln sucralfate 1 gram tablet 1 g PO BID 04/04/18 01/14/25 Histo ry montelukast 10 mg tablet 10 mg PO DAILY 02/06/22 01/14/25 H istory (Singulair) vibegron 75 mg tablet (Gemtesa) 75 mg PO DAILY 07/20/24 01/14/25 H istory estradiol 0.5 mg tablet 0.5 mg PO QDAY 01/14/25 01/14/25 H istory topiramate 100 mg tablet (Topamax) 100 mg PO QDAY 01/14/25 01/14/25 History PFSH Medical History (Reviewed 11/11/24 @ 12:22 by Magdalena Whaley [employer], [employer]-C) History of stress test History of deviated nasal septum Wears dentures History of steroid therapy Arthritis Bladder disease High cholesterol History of IBS Non-smoker Shortness of breath on exertion COPD (chronic obstructive pulmonary disease) Asthma Migraine Degenerative disc disease Fibromyalgia Depression Anxiety Surgical History (Reviewed 11/11/24 @ 12:22 by Magdalena Whaley [employer] W[employer], 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 [facility] 12-09-2024 [facility] Telephone (INTMWS) CHEY JEFFERS ([id number]) 1960 F Date Time Provider Department 12/09/24 EDDA OCONNOR INTMWS During your visit today, we recorded the following information about you: Allergies As of Date: 12/09/2024 Noted Allergy Reaction AMOXICILLIN 01/17/2023 2 - Rash Comments: Rash a few days into a course of treatment. Noted that had not reacted to test dose penicillin but developed rash after a few days on amoxicillin. ASPIRIN (SALICYLATES) 05/24/2006 7 - Swelling 12 - Shortness of Breath Comments: wheezing,swelling lips,rash,hives CODEINE 02/15/2005 4 - Hives VICODIN (HYDROCODONE-ACETAMINOP HE*02/15/2005 4 - Hives CEFDINIR 12/21/2019 9 - Itching Comments: Itchy scaly rash. (Patient may take penicillin and other penicillin type antibiotics. See allergy visit on 01/08/23) DEMEROL (MEPERIDINE (PF)) 01/03/2006 2 - Rash TYLENOL (ACETAMINOPHEN) 01/02/2006 5 - Intolerance 12 - Shortness of Breath Comments: asthma; makes it hard for her to breathe AMBIEN (ZOLPIDEM) 04/07/2022 5 - Intolerance Comments: Was sleepwalking (arranging books but hull not recall) BACTRIM (SULFAMETHOXAZOLE-TRIME TH*07/25/2005 Comments: uncertain BUDESONIDE 06/26/2018 2 - Rash CELEXA (CITALOPRAM HYDROBROMIDE) 07/25/2005 8 - GI Upset DOXY (DOXYCYCLINE) 06/04/2005 Comments: rash and asthma DUREZOL (DIFLUPREDNATE) 03/04/2014 2 - Rash IBUPROFEN 07/25/2005 12 - Shortness of Breath KEFLEX (CEPHALEXIN) 10/26/2024 5 - Intolerance LEXAPRO (ESCITALOPRAM OXALATE) 07/25/2005 8 - GI Upset LYRICA (PREGABALIN) 04/10/2011 1 - Mental Status Change Comments: dizzy MACROBID (NITROFURANTOIN MONOHYD/*06/26/2018 6 - Diarrhea MAPROTILINE 05/16/2009 9 - Itching MONUROL (FOSFOMYCIN) 05/18/2021 6 - Diarrhea MUCOMYST (ACETYLCYSTEINE) 10/30/2012 3 - Cough Comments: increase wheezing OXYCODONE 01/17/2011 12 - Shortness of Breath PENICILLINS 01/09/2005 4 - Hives Comments: Allergy skin tests to penicillin were negative. The patient took a test dose of amoxicillin and tolerated this without adverse reaction. The patient is at low risk for a severe, immediate, IgE-mediated reaction to penicillin, amoxicillin and other penicillin-type antibiotics. Skin tests are unreliable for predicting delayed reactions. TORADOL (KETOROLAC TROMETHAMINE) 04/06/2011 7 - Swelling ULTRAM (TRAMADOL HCL) 07/25/2005 14 - Other: See Comments Comments: chest pains VANCOMYCIN 01/21/2015 14 - Other: See Comments Comments: Wheezing after taking, legs swollen and tongue swelling and scratchy neck VENLAFAXINE 07/09/2011 8 - GI Upset ZITHROMAX (AZITHROMYCIN) 01/19/2005 9 - Itching MIRTAZAPINE 11/17/2013 14 - Other: See Comments Comments: Hand shakes. Date Reviewed: 11/20/2024 Reviewed by: Wendy Soria, RT(R) - Fully Assessed Primary Visit Diagnosis:Hiatal hernia [K44.9] Order(s):famotidine (PEPCID) 40 mg tabletTake 1 tablet by mouth once daily.Disp: 30 tabletRfl: 5 Prescriptions as of 12/09/2024 - famotidine (PEPCID) 40 mg tablet Take 1 tablet by mouth once daily. - Albuterol Sulfate 1.25 mg/3 mL nebulizer solution Use 1 ampule via nebulizer every 6 hours as needed for wheezing/shortness of breath. - ipratropium (ATROVENT) 0.02 % nebulizer solution Use 2.5 mL via nebulizer four times a day as needed for wheezing/shortness of breath. - imipramine HCl (TOFRANIL) 50 mg tablet Take 1 tablet by mouth daily at bedtime. - simvastatin (ZOCOR) 40 mg tablet Take 1 tablet by mouth daily at bedtime. - mupirocin (BACTROBAN) 2 % ointment Apply to affected area once daily. - clonazePAM (KLONOPIN) 1 mg tablet Take 1 tablet by mouth two times a day for 90 days. Patient should start on October 28, 2024. - Nebulizer Accessories kit 1 Kit as needed. - nystatin (MYCOSTATIN) 100,000 unit/mL suspension Take 5 mL by mouth four times daily. 1tsp swish in mouth for several minutes, then swallow (or expectorate) 4 times daily until gone. - budesonide-formoterol (SYMBICORT) 160-4.5 mcg/actuation inhaler Inhale 2 Puffs as instructed two times a day. - albuterol HFA (VENTOLIN HFA) 90 mcg/actuation inhaler Inhale 2 Puffs as instructed every 4 hours as needed for wheezing/shortness of breath. - montelukast (SINGULAIR) 10 mg tablet Take 1 tablet by mouth daily at bedtime. - lansoprazole (PREVACID) 30 mg capsule Take 1 capsule by mouth once daily. - sucralfate (CARAFATE) 1 gram tablet Take 1 tablet by mouth before meals and at bedtime. - Estradiol (ESTRACE) 0.5 mg tablet Take 1 tablet by mouth once daily. - fexofenadine (NAN) 180 mg tablet Take 1 tablet by mouth once daily. - GEMTESA 75 mg tablet Take 1 tablet by mouth every afternoon. - calcium carb/vit D2/minerals (CALTRATE PLUS ORAL) Take 1 capsule by mouth once daily. - fluticasone (FLONASE) 50 mcg/actuation nasal spray Use 1 [place] in each nostril twice daily. VIA SP (more content not included)... Normal [facility] 11-27-2024 [facility] Telephone (INTMWS) CHEY JEFFRES ([id number]) 1960 F Date Time Provider Department 11/27/24 EDDA OCONNOR INTMWS During your visit today, we recorded the following information about you: Allergies As of Date: 11/27/2024 Noted Allergy Reaction AMOXICILLIN 01/17/2023 2 - Rash Comments: Rash a few days into a course of treatment. Noted that had not reacted to test dose penicillin but developed rash after a few days on amoxicillin. ASPIRIN (SALICYLATES) 05/24/2006 7 - Swelling 12 - Shortness of Breath Comments: wheezing,swelling lips,rash,hives CODEINE 02/15/2005 4 - Hives VICODIN (HYDROCODONE-ACETAMINOP HE*02/15/2005 4 - Hives CEFDINIR 12/21/2019 9 - Itching Comments: Itchy scaly rash. (Patient may take penicillin and other penicillin type antibiotics. See allergy visit on 01/08/23) DEMEROL (MEPERIDINE (PF)) 01/03/2006 2 - Rash TYLENOL (ACETAMINOPHEN) 01/02/2006 5 - Intolerance 12 - Shortness of Breath Comments: asthma; makes it hard for her to breathe AMBIEN (ZOLPIDEM) 04/07/2022 5 - Intolerance Comments: Was sleepwalking (arranging books but hull not recall) BACTRIM (SULFAMETHOXAZOLE-TRIME TH*07/25/2005 Comments: uncertain BUDESONIDE 06/26/2018 2 - Rash CELEXA (CITALOPRAM HYDROBROMIDE) 07/25/2005 8 - GI Upset DOXY (DOXYCYCLINE) 06/04/2005 Comments: rash and asthma DUREZOL (DIFLUPREDNATE) 03/04/2014 2 - Rash IBUPROFEN 07/25/2005 12 - Shortness of Breath KEFLEX (CEPHALEXIN) 10/26/2024 5 - Intolerance LEXAPRO (ESCITALOPRAM OXALATE) 07/25/2005 8 - GI Upset LYRICA (PREGABALIN) 04/10/2011 1 - Mental Status Change Comments: dizzy MACROBID (NITROFURANTOIN MONOHYD/*06/26/2018 6 - Diarrhea MAPROTILINE 05/16/2009 9 - Itching MONUROL (FOSFOMYCIN) 05/18/2021 6 - Diarrhea MUCOMYST (ACETYLCYSTEINE) 10/30/2012 3 - Cough Comments: increase wheezing OXYCODONE 01/17/2011 12 - Shortness of Breath PENICILLINS 01/09/2005 4 - Hives Comments: Allergy skin tests to penicillin were negative. The patient took a test dose of amoxicillin and tolerated this without adverse reaction. The patient is at low risk for a severe, immediate, IgE-mediated reaction to penicillin, amoxicillin and other penicillin-type antibiotics. Skin tests are unreliable for predicting delayed reactions. TORADOL (KETOROLAC TROMETHAMINE) 04/06/2011 7 - Swelling ULTRAM (TRAMADOL HCL) 07/25/2005 14 - Other: See Comments Comments: chest pains VANCOMYCIN 01/21/2015 14 - Other: See Comments Comments: Wheezing after taking, legs swollen and tongue swelling and scratchy neck VENLAFAXINE 07/09/2011 8 - GI Upset ZITHROMAX (AZITHROMYCIN) 01/19/2005 9 - Itching MIRTAZAPINE 11/17/2013 14 - Other: See Comments Comments: Hand shakes. Date Reviewed: 11/20/2024 Reviewed by: Wendy Soria, RT(R) - Fully Assessed Prescriptions as of 11/27/2024 - Albuterol Sulfate 1.25 mg/3 mL nebulizer solution Use 1 ampule via nebulizer every 6 hours as needed for wheezing/shortness of breath. - ipratropium (ATROVENT) 0.02 % nebulizer solution Use 2.5 mL via nebulizer four times a day as needed for wheezing/shortness of breath. - imipramine HCl (TOFRANIL) 50 mg tablet Take 1 tablet by mouth daily at bedtime. - simvastatin (ZOCOR) 40 mg tablet Take 1 tablet by mouth daily at bedtime. - mupirocin (BACTROBAN) 2 % ointment Apply to affected area once daily. - clonazePAM (KLONOPIN) 1 mg tablet Take 1 tablet by mouth two times a day for 90 days. Patient should start on October 28, 2024. - Nebulizer Accessories kit 1 Kit as needed. - nystatin (MYCOSTATIN) 100,000 unit/mL suspension Take 5 mL by mouth four times daily. 1tsp swish in mouth for several minutes, then swallow (or expectorate) 4 times daily until gone. - budesonide-formoterol (SYMBICORT) 160-4.5 mcg/actuation inhaler Inhale 2 Puffs as instructed two times a day. - albuterol HFA (VENTOLIN HFA) 90 mcg/actuation inhaler Inhale 2 Puffs as instructed every 4 hours as needed for wheezing/shortness of breath. - montelukast (SINGULAIR) 10 mg tablet Take 1 tablet by mouth daily at bedtime. - lansoprazole (PREVACID) 30 mg capsule Take 1 capsule by mouth once daily. - sucralfate (CARAFATE) 1 gram tablet Take 1 tablet by mouth before meals and at bedtime. - Estradiol (ESTRACE) 0.5 mg tablet Take 1 tablet by mouth once daily. - fexofenadine (NAN) 180 mg tablet Take 1 tablet by mouth once daily. - GEMTESA 75 mg tablet Take 1 tablet by mouth every afternoon. - calcium carb/vit D2/minerals (CALTRATE PLUS ORAL) Take 1 capsule by mouth once daily. - fluticasone (FLONASE) 50 mcg/actuation nasal spray Use 1 Meraux in each nostril twice daily. VIA SPACER THEN RINSE AND GARGLE MOUTH WITH WATER. - LOPERAMIDE HCL (IMODIUM ORAL) Take by mouth as needed. - vit e acetate/gly/dimeth/wate r(CETAPHIL MOISTURIZING LOTION) apply twice daily Problem List As Of Date (more content not included)... Normal [facility] CT ABDOMEN W IVCONon 025 CT ABDOMEN W IVCON * * *Final Report* * * DATE OF EXAM: Nov 20 2024 10:53AM [facility] 0533 - CT ABDOMEN W IVCON / PROCEDURE REASON: multiple diagnoses * * * * Physician Interpretation * * * * EXAMINATION: CT ABDOMEN WITH IV CONTRAST CLINICAL HISTORY: Renal mass TECHNIQUE: CT of the abdomen was performed using standard technique, scanning from just above the dome of the diaphragm to the iliac crest. MQ: CTAbdW_4 Contrast: IV: 100 ml of Omnipaque 350 Oral: 10 ml of Omni 240 10-25ml diluted with water CT Radiation dose: Integrated Dose-length product (DLP) for this visit = 351 mGy*cm. CT Dose Reduction Employed: Automated exposure control(AEC) and iterative recon COMPARISON: 04/11/2018. RESULT: Liver: The liver is of low density, when compared to the spleen, which can be seen with fatty infiltration of the liver. There is no focal discrete hepatic mass. Biliary: The patient is status post cholecystectomy. There is biliary dilation, likely related to the cholecystectomy. Spleen: No mass. No splenomegaly. Pancreas: There are subcentimeter cystic lesions within the pancreas. For example, there is an approximately 6 mm cystic lesion within the pancreatic body (series 5, image #43). Although findings may relate to side branch intraductal papillary mucinous neoplasms, continued interval surveillance is recommended. No pancreatic ductal dilation. Adrenals:No mass. Kidneys: There is no hydronephrosis or perinephric fluid collection. There are subcentimeter, low-attenuation lesions seen within each kidney, which are too small to characterize but statistically relate to subcentimeter cysts. This could be confirmed with renal ultrasound, at clinical discretion. GI tract: Tiny hiatal hernia. Nonspecific wall thickening of the stomach likely relates to underdistention. There are no dilated loops of bowel to suggest obstruction. Lymph nodes: No abdominal lymphadenopathy. Mesentery/Peritoneum: No abdominal ascites. Retroperitoneum: No mass. Vasculature: No abdominal aortic aneurysm. Atherosclerotic disease. Bones/Soft Tissues: Diastases of the rectus abdominis musculature. There is a small supraumbilical ventral hernia, containing omental fat. Vacuum phenomenon and sclerosis is seen involving the sacroiliac joint spaces, bilaterally. Fat stranding is seen within the subcutaneous tissues of the mid lower back. Lower thorax: Reticulation within the lower lungs. IMPRESSION: No acute abdominal process is identified. Subcentimeter cystic lesions within the pancreas. Although findings may relate to side branch intraductal papillary mucinous neoplasms, continued interval surveillance is recommended. If clinically warranted, MRI could be performed. Multiple subcentimeter low-attenuation lesions seen within the kidneys are too small to characterize, but statistically relate to subcentimeter cysts. If clinically warranted, renal ultrasound performed for further evaluation. Fatty infiltration of the liver. ACTIONABLE RESULT: FOLLOW-UP Acuity: Actionable Findings: Other Routing Code: Misc_1 Recommendation: Unlisted Recommendation (see report) Time Frame: At the discretion of the clinical team. COMMUNICATION: Results will be communicated with the ordering provider via [employer] staff message or phone message by [employer] within 2 business days of report finalization. --END OF FINDING-- Agricultural Chemicals Inspector: SHANON Transcribe Date/Time: Nov 20 2024 11:09A Dictated by : ROSALIND ZURITA MD This examination was interpreted and the report reviewed and electronically signed by: ROSALIND ZURITA MD on Nov 20 2024 11:17AM EST [id number] ACTIONABLE Invalid Interpretation Code [facility] CT Abdomen W contrast IVOrde red By: [facility] Provider on 11-20-2024 Interpretation and review of laboratory results Abnormal [facility] Radiology Result ACTIONABLE Abnormal [facility] Comment on above: This report contains an incidental or actionable finding. This finding may be a new finding separate from the reason your provider ordered the imaging test or it may be an already known finding that needs additional or continued follow-up. Because of this incidental or actionable finding, you may need another test (imaging or a different type of test). Please contact your provider for the next steps. [facility] CT Abdomen W contrast Sung 0 11-20-2024 IMPRESSION: No acute abdominal process is identified. Subcentimeter cystic lesions within the pancreas. Although findings may relate to side branch intraductal papillary mucinous neoplasms, continued interval surveillance is recommended. If clinically warranted, MRI could be performed. Multiple subcentimeter low-attenuation lesions seen within the kidneys are too small to characterize, but statistically relate to subcentimeter cysts. If clinically warranted, renal ultrasound performed for further evaluation. Fatty infiltration of the liver. ACTIONABLE RESULT: FOLLOW-UP Acuity: Actionable Findings: Other Routing Code: Misc_1 Recommendation: Unlisted Recommendation (see report) Time Frame: At the discretion of the clinical team. COMMUNICATION: Results will be communicated with the ordering provider via [employer] staff message or phone message by [employer] Support [employer] within 2 business days of report finalization. --END OF FINDING-- Agricultural Chemicals Inspector: SHANON Transcribe Date/Time: Nov 20 2024 11:09A Dictated by : ROSALIND ZURITA MD This examination was interpreted and the report reviewed and electronically signed by: ROSALIND ZURITA MD on Nov 20 2024 11:17AM [facility] DIVISION OF RADIOLOGY * * *Final Report* * * DATE OF EXAM: Nov 20 2024 10:53AM [facility] 0533 - CT ABDOMEN W IVCON / PROCEDURE REASON: multiple diagnoses * * * * Physician Interpretation * * * * EXAMINATION: CT ABDOMEN WITH IV CONTRAST CLINICAL HISTORY: Renal mass TECHNIQUE: CT of the abdomen was performed using standard technique, scanning from just above the dome of the diaphragm to the iliac crest. MQ: CTAbdW_4 Contrast: IV: 100 ml of Omnipaque 350 Oral: 10 ml of Omni 240 10-25ml diluted with water CT Radiation dose: Integrated Dose-length product (DLP) for this visit = 351 mGy*cm. CT Dose Reduction Employed: Automated exposure control(AEC) and iterative recon COMPARISON: 04/11/2018. RESULT: Liver: The liver is of low density, when compared to the spleen, which can be seen with fatty infiltration of the liver. There is no focal discrete hepatic mass. Biliary: The patient is status post cholecystectomy. There is biliary dilation, likely related to the cholecystectomy. Spleen: No mass. No splenomegaly. Pancreas: There are subcentimeter cystic lesions within the pancreas. For example, there is an approximately 6 mm cystic lesion within the pancreatic body (series 5, image #43). Although findings may relate to side branch intraductal papillary mucinous neoplasms, continued interval surveillance is recommended. No pancreatic ductal dilation. Adrenals:No mass. Kidneys: There is no hydronephrosis or perinephric fluid collection. There are subcentimeter, low-attenuation lesions seen within each kidney, which are too small to characterize but statistically relate to subcentimeter cysts. This could be confirmed with renal ultrasound, at clinical discretion. GI tract: Tiny hiatal hernia. Nonspecific wall thickening of the stomach likely relates to underdistention. There are no dilated loops of bowel to suggest obstruction. Lymph nodes: No abdominal lymphadenopathy. Mesentery/Peritoneum: No abdominal ascites. Retroperitoneum: No mass. Vasculature: No abdominal aortic aneurysm. Atherosclerotic disease. Bones/Soft Tissues: Diastases of the rectus abdominis musculature. There is a small supraumbilical ventral hernia, containing omental fat. Vacuum phenomenon and sclerosis is seen involving the sacroiliac joint spaces, bilaterally. Fat stranding is seen within the subcutaneous tissues of the mid lower back. Lower thorax: Reticulation within the lower lungs. DIVISION OF RADIOLOGY Provider, Shawna menendez [place] - 11/20/2024 * * *Final Report* * * DATE OF EXAM: Nov 20 2024 10:53AM [facility] 0533 - CT ABDOMEN W IVCON / PROCEDURE REASON: multiple diagnoses * * * * Physician Interpretation * * * * EXAMINATION: CT ABDOMEN WITH IV CONTRAST CLINICAL HISTORY: Renal mass TECHNIQUE: CT of the abdomen was performed using standard technique, scanning from just above the dome of the diaphragm to the iliac crest. MQ: CTAbdW_4 Contrast: IV: 100 ml of Omnipaque 350 Oral: 10 ml of Omni 240 10-25ml diluted with water CT Radiation dose: Integrated Dose-length product (DLP) for this visit = 351 mGy*cm. CT Dose Reduction Employed: Automated exposure control(AEC) and iterative recon COMPARISON: 04/11/2018. RESULT: Liver: The liver is of low density, when compared to the spleen, which can be seen with fatty infiltration of the liver. There is no focal discrete hepatic mass. Biliary: The patient is status post cholecystectomy. There is biliary dilation, likely related to the cholecystectomy. Spleen: No mass. No splenomegaly. Pancreas: There are subcentimeter cystic lesions within the pancreas. For example, there is an approximately 6 mm cystic lesion within the pancreatic body (series 5, image #43). Although findings may relate to side branch intraductal papillary mucinous neoplasms, continued interval surveillance is recommended. No pancreatic ductal dilation. Adrenals:No mass. Kidneys: There is no hydronephrosis or perinephric fluid collection. There are subcentimeter, low-attenuation lesions seen within each kidney, which are too small to characterize but statistically relate to subcentimeter cysts. This could be confirmed with renal ultrasound, at clinical discretion. GI tract: Tiny hiatal hernia. Nonspecific wall thickening of the stomach likely relates to underdistention. There are no dilated loops of bowel to suggest obstruction. Lymph nodes: No abdominal lymphadenopathy. Mesentery/Peritoneum: No abdominal ascites. Retroperitoneum: No mass. Vasculature: No abdominal aortic aneurysm. Atherosclerotic disease. Bones/Soft Tissues: Diastases of the rectus abdominis musculature. There is a small supraumbilical ventral hernia, containing omental fat. Vacuum phenomenon and sclerosis is seen involving the sacroiliac joint spaces, bilaterally. Fat stranding is seen within the subcutaneous tissues of the mid lower back. Lower thorax: Reticulation within the lower lungs. IMPRESSION IMPRESSION: No acute abdominal process is identified. Subcentimeter cystic lesions within the pancreas. Although findings may relate to side branch intraductal papillary mucinous neoplasms, continued interval surveillance is recommended. If clinically warranted, MRI could be performed. Multiple subcentimeter low-attenuation lesions seen within the kidneys are too small to characterize, but statistically relate to subcentimeter cysts. If clinically warranted, renal ultrasound performed for further evaluation. Fatty infiltration of the liver. ACTIONABLE RESULT: FOLLOW-UP Acuity: Actionable Findings: Other Routing Code: Misc_1 Recommendation: Unlisted Recommendation (see report) Time Frame: At the discretion of the clinical team. COMMUNICATION: Results will be communicated with the ordering provider via [employer] staff message or phone message by [employer] Support [employer] within 2 business days of report finalization. --END OF FINDING-- Agricultural Chemicals Inspector: SHANON Transcribe Date/Time: Nov 20 2024 11:09A Dictated by : ROSALIND ZURITA MD This examination was interpreted and the report reviewed and electronically signed by: ROSALIND ZURITA MD on Nov 20 2024 11:17AM EST [facility] Radiology Study observation (narrative) [facility] CNOVon 11-17-2024 CNOV Office Visit (PULMWS ) CHEY JEFFERS ([id number]) 1960 F Date Time Provider Department 11/17/24 1:30 PM ANA CRISTINA URBINA PULMWS During your visit today, we recorded the following information about you: Pulse Respiration Blood pressure Weight 110/minute 20/minute 119/50 69.2 kg Ana Cristina Urbina APRN.GEOSCIENCE LABORATORY TECHNICIAN 11/17/2024 8:13 PM Signed Pulmonary Medicine Patients name: Chey Jeffers PCP: Edda Oconnor MD CC: follow-up HPI: Chey Jeffers is a 63 year old female non-smoker with PMH significant for ankylosing spondylitis, depression, GERD, nasal polyps, recurrent sinusitis and asthma. NELSY 06/2024 with improved but persistently elevated nitric oxide. Biologic therapy discussed but patient reluctant. Current therapy with Symbicort and albuterol. Uses Singulair and OTC antihistamines for multiple allergies. She presents today for follow-up. Since her last visit, she has been experiencing multiple health problems. 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 She suffered a fall recently, requiring 21 sutures in her leg. Has been following with the wound center as it has been slow to heal. Additionally, she reports having a sinus infection for nearly 2 months. Follows with ENT and prescribed Levaquin. Not able to take Medrol d/t wound on her leg but reports that would help it clear up. Today, she states she has been sneezing frequently which causes wheezing. Having a lot of sinus congestion with PND which attributes to cough, occasionally produces yellow sputum. Will have some shortness of breath with exertion. Nitric oxide today 134 ppb. Has been forgetting to take Symbicort regularly with her grief. Doesn't typically need Albuterol, has used 3x in the past 2 weeks. 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 Mazariegos [facility]. Pure hypercholesterolemia Serrated adenoma of colon 07/29/2014 Symptomatic menopausal or female climacteric states Unspecified sinusitis (chronic) 06/21/2008 Allergies: Amoxicillin Rash Comment:Rash a few days into a course of treatment. Noted that had not reacted to test dose penicillin but developed rash after a few days on amoxicillin. Aspirin [Salicylate* Swelling, Shortness of Breath Comment:wheezing,swelli ng lips,rash,hives Codeine Hives Vicodin [Hydrocodon* Hives Cefdinir Itching Comment:Itchy scaly rash. (Patient may take penicillin and other penicillin type antibiotics. See allergy visit on 01/08/23) Demerol [Meperidine* Rash Tylenol [Acetaminop* Intolerance, Shortness of Breath Comment:asthma; makes it hard for her to breathe Ambien [Zolpidem] Intolerance Comment:Was sleepwalking (arranging books but hull not recall) Bactrim [Sulfametho* Comment:uncertain Budesonide Rash Celexa [Citalopram * GI Upset Doxy [Doxycycline] Comment:rash and asthma Durezol [Diflupredn* Rash Ibuprofen Shortness of Breath Keflex [Cephalexin] Intolerance Lexapro [Escitalopr* GI Upset Lyrica [Pregabalin] Mental Status Change Comment:dizzy Macrobid [Nitrofura* Diarrhea Maprotiline Itching Monurol [Fosfomycin] Diarrhea Mucomyst [Acetylcys* Cough Comment:increase wheezing Oxycodone Shortness of Breath Penicillins Hives Comment:Allergy skin tests to penicillin were negative. The patient took a test dose of amoxicillin and tolerated this without adverse reaction. The patient is at low risk for a severe, immediate, IgE-mediated reaction to penicillin, amoxicillin and other penicillin-type antibiotics. Skin tests are unreliable for predicting delayed reactions. Toradol [Ketorolac * Swelling Ultram [Tramadol Hc* Other: See Comments Comment:chest pains Vancomycin Other: See Comments Comment:Wheezing after taking, legs swollen and tongue swelling and scratchy neck Venlafaxine GI Upset Zithromax [Azithrom* Itching Mirtazapine Other: See Comments Comment:Hand shakes. Medication List Accurate as of November 16, 2024 1:43 PM. If you have any questions, ask your nurse or doctor. CONTINUE taking these medications * Albuterol Sulfate 1.25 mg/3 mL nebulizer solution Use 1 Ampule via nebulizer every 6 hours as needed for wheezing/shortness of breath. * albuterol H (more content not included)... Normal [facility] NITRIC OXIDE, EXHALEDon 11-03 Ofe Ruff RPF T 11/17/2024 1:34 PM RESPIRATORY THERAPY ORAL EXHALED NITRIC OXIDE SERVICE DATE: 11/17/2024 SERVICE TIME: 1:29 PM Oral Exhaled Nitric Oxide measurement: 134.0 (ppb) (A) Normal: Adult <25 ppb, pediatric (<12 years) <20 ppb High Normal / Increased: Adult 25-50 ppb, pediatric (<12 years) 20-35 ppb Moderately raised exhaled Nitric Oxide may indicate underlying inflammation, but note that: Cold and influenza can raise exhaled Nitric Oxide and some patients have higher baseline exhaled Nitric Oxide levels than others. High: Adult >50 ppb, pediatric (<12 years) >35 ppb Indicative of ongoing eosinophilic inflammation. Symptomatic patient likely to respond to steroids. Possible causes (if already on steroids): Poor compliance, recent allergen exposure, steroid dose inadequate, and steroid resistance. Note that not all patients with high exhaled nitric oxide levels display symptoms. Oral Exhaled Nitric Oxide measurement (Previous Encounters) Test Date Oral Exhaled Nitric Oxide (ppb) 11/17/2024 134.0 (A) 06/18/2024 52.0 (A) 03/24/2024 114.0 (A) 01/17/2024 88.0 (A) 12/03/2022 49.0 (A) 06/04/2022 95.0 (A) 08/17/2021 109.0 (A) 12/21/2019 216.0 (A) NAME: LA Goddard PATIENT NAME: Chey Jeffers DATE: November 17, 2024 TIME: 1:29 PM [facility] Culture, Anaerobic Any [facility] chika 11-13-2024 CUAN LEFT WALLS No anaerobic bacteria isolated. Normal [facility] Comment on above: Performed By: #### M 100.4001, M100.3000, M100.1999 ####[facility] [id number] [place], [address] Gram Stainon 11-12-2024 GS LEFT WALLS Gram Stain No organisms seen No Epithelial cells Normal [facility] Comment on above: Performed By: #### M 100.4001, M100.3000, M100.2000 #### [facility] [address] [place], [address] Wound Cultureon 11-12-2024 WC LEFT WALLS No growth aerobically. Normal [facility] Comment on above: Performed By: #### M 100.4001, M100.3000, M100.2000 ####[facility] [id number] [place], [address] Anaerobic cultureOrdered By: Magdalena Whaley on 11-11-2024 Bacteria identified Anaer cx Nom (Unsp spec) No anaerobic bacteria isolated. [facility] Gram stainOrdered By: Magdalena parker on 11-11-2024 Microscopic observation Gram stain Nom (Unsp spec) [facility] History AND Physic davon 11-11-2024 Wound Ctr History & Physical [facility] [address] [place] [address] H P Exam - Wound Care 11/11/24 1217 MR#: [id number] Acct: [id number] Name: CHEY JEFFERS Rep #: [id number] : 1960 63 From: Magdalena Whaley NP [employer] PCP: Dr. Edda Oconnor MD Status:REG RCR Location: History of Present Illness Date of Service: 11/11/24 Chief Complaint: Left lower walls from a fall on some wooden steps outside her house seen in the emergency room on October 22 History of Wound: 63-year-old white female that had sutures put in the dehisced and now she has a well-approximated wound but it has a lot of blackened scabs and peeling skin. [facility] Medical History History of stress test History of deviated nasal septum Wears dentures History of steroid therapy Arthritis Bladder disease High cholesterol History of IBS Non-smoker Shortness of breath on exertion COPD (chronic obstructive pulmonary disease) Asthma Migraine Degenerative disc disease Fibromyalgia Depression Anxiety Home Medications ???Medication ???Instructions ???Recorded ???Last Taken ???Type albuterol sulfate 90 mcg/actuation 1 - 2 puff IH Q4H PRN PRN Asthma 07/09/14 04/07/18 08:00 History aerosol inhaler (Ventolin HFA) clonazepam 0.5 mg tablet 0.5 mg PO BID ANXIETY 07/09/14 History fluticasone propionate 50 1 spray DAILY PRN PRN Allergies Unknown History mcg/actuation nasal spray,suspension lansoprazole 30 mg capsule,delayed 30 mg PO DAILY , 07/09/14 History release (Prevacid) simvastatin 40 mg tablet 40 mg PO QHS CHOLESTEROL 07/09/14 09/20/24 History loperamide 2 mg capsule 2 mg PO Q6H PRN PRN Diarrhea ##20 07/22/14 08/09/16 Rx fexofenadine 180 mg tablet 180 mg PO QHS . 03/26/17 09/20/24 History (Nan Allergy) imipramine HCl 50 mg tablet 50 mg PO QHS depression 01/07/18 0 09/20/24 History budesonide-formoterol HFA 160 2 puff inhalation BID 04/04/18 History mcg-4.5 mcg/actuation aerosol inhaler (Symbicort) calcium 200 mg (as 1 ea PO DAILY 04/04/18 09/20/24 Hi story citrate)-vitamin D3 6.25 mcg (250 unit) tablet (Citracal-D3 Petites) ipratropium 0.5 mg-albuterol 3 mg 3 ml inhalation Q4H PRN BREATHING 04/04/18 Unknown History (2.5 mg base)/3 mL nebulization soln sucralfate 1 gram tablet 1 g PO BID 04/04/18 09/21/24 Histo ry montelukast 10 mg tablet 10 mg PO DAILY 02/06/22 09/20/24 H istory (Singulair) vibegron 75 mg tablet (Gemtesa) 75 mg PO DAILY 07/20/24 09/21/24 H istory fesoterodine 4 mg tablet,extended 4 mg PO DAILY 09/21/24 09/21/24 H istory release 24 hr Allergy/AdvReac Type Severity Reaction Status Date / Time aspirin Allergy Severe Anaphylaxis Verified 11/11/24 08:39 acetaminophen (From Vicodin) Allergy MAKES MY Verified 11/11/24 08:39 CHEST HURT azithromycin (From Zithromax) Allergy Itching Verified 11/11/24 08:39 budesonide Allergy Rash Verified 11/11/24 08:39 ciprofloxacin (From Cipro) Allergy Hives Verified 11/11/24 08:39 codeine Allergy Hives Verified 11/11/24 08:39 difluprednate (From Durezol) Allergy Rash Verified 11/11/24 08:39 doxycycline Allergy Rash Verified 11/11/24 08:39 hydrocodone bitartrate (From Allergy Hives Verified 11/11/24 08:39 Vicodin) ibuprofen (From Motrin) Allergy Shortness Verified 11/11/24 08:39 of breath ketorolac tromethamine (From Allergy Swelling Verified 11/11/24 08:39 Toradol) maprotiline Allergy Itching Verified 11/11/24 08:39 meperidine HCl (From Demerol) Allergy Rash Verified 11/11/24 08:39 mirtazapine Allergy Other Verified 11/11/24 08:39 Penicillins Allergy Rash Verified 11/11/24 08:39 prednisone Allergy Itching Verified 11/11/24 08:39 tramadol HCl (From Ultram) Allergy Chest Verified 11/11/24 08:39 tightness vancomycin Allergy Swelling Verified 11/11/24 08:39 acetylcysteine (From AdvReac ITCHING, Verified 11/11/24 08:39 Mucomyst) REDNESS citalopram hydrobromide AdvReac Nausea/Vom/ Verified 11/11/24 08:39 (From Celexa) Diarrhea escitalopram oxalate (From AdvReac Nausea/Vom/ Verified 11/11/24 08:39 Lexapro) Diarrhea nitrofurantoin (From AdvReac Diarrhea Verified 11/11/24 08:39 Macrobid) nitrofurantoin AdvReac Diarrhea Verified 11/11/24 08:39 macrocrystalline (From Macrobid) oxycodone AdvReac Hives Verified 11/11/24 08:39 pregabalin (From Lyrica) AdvReac Swelling Verified 11/11/24 08:39 sulfamethoxazole (From AdvReac Other Verified 11/11/24 08:39 Bactrim) trimethoprim (From Bactrim) AdvReac Unknown Verified 11/11/24 08:39 venlafaxine HCl (From AdvReac Nausea/Vom/ Verified 11/11/24 08:39 Effexor) Diarrhea Surgical History ... [facility] 11-10-2024 [facility] Telephone (FAMPWS) CHEY JEFFERS ([id number]) 1960 F Date Time Provider Department 11/10/24 NUNO [facility] During your visit today, we recorded the following information about you: Shae Jett LPN 11/10/2024 1:36 PM Signed Last OV: 11/04 - suture removal left leg. Pt calls to report that her left foot is still really swollen. Pt reports she has tried to rest, ice and elevate but has probably was on foot more than she should've been yesterday. Pt reports she feels she does need a post-op shoe or something to protect foot because shoes do not fit and rocks/gravel go through slipper. Please review and advise. MICHELLE Dickey Rosa, APRN.[facility] 11/10/2024 2:20 PM Signed Okay for post-op shoe, order written. Please reinforce she needs to rest as able and she should be icing, elevating, and I recommend compression with an DEBRA wrap to help reduce the soft tissue swelling from her injury. Veena Herr LPN 11/10/2024 3:28 PM Signed Chey given below recommendation, verbalized understanding. Per Patient's request, faxed order to [facility]. Veena Herr MAKEUP ARTISTRY INSTRUCTOR Allergies As of Date: 11/10/2024 Noted Allergy Reaction AMOXICILLIN 01/17/2023 2 - Rash Comments: Rash a few days into a course of treatment. Noted that had not reacted to test dose penicillin but developed rash after a few days on amoxicillin. ASPIRIN (SALICYLATES) 05/24/2006 7 - Swelling 12 - Shortness of Breath Comments: wheezing,swelling lips,rash,hives CODEINE 02/15/2005 4 - Hives VICODIN (HYDROCODONE-ACETAMINOP HE*02/15/2005 4 - Hives CEFDINIR 12/21/2019 9 - Itching Comments: Itchy scaly rash. (Patient may take penicillin and other penicillin type antibiotics. See allergy visit on 01/08/23) DEMEROL (MEPERIDINE (PF)) 01/03/2006 2 - Rash TYLENOL (ACETAMINOPHEN) 01/02/2006 5 - Intolerance 12 - Shortness of Breath Comments: asthma; makes it hard for her to breathe AMBIEN (ZOLPIDEM) 04/07/2022 5 - Intolerance Comments: Was sleepwalking (arranging books but hull not recall) BACTRIM (SULFAMETHOXAZOLE-TRIME TH*07/25/2005 Comments: uncertain BUDESONIDE 06/26/2018 2 - Rash CELEXA (CITALOPRAM HYDROBROMIDE) 07/25/2005 8 - GI Upset DOXY (DOXYCYCLINE) 06/04/2005 Comments: rash and asthma DUREZOL (DIFLUPREDNATE) 03/04/2014 2 - Rash IBUPROFEN 07/25/2005 12 - Shortness of Breath KEFLEX (CEPHALEXIN) 10/26/2024 5 - Intolerance LEXAPRO (ESCITALOPRAM OXALATE) 07/25/2005 8 - GI Upset LYRICA (PREGABALIN) 04/10/2011 1 - Mental Status Change Comments: dizzy MACROBID (NITROFURANTOIN MONOHYD/*06/26/2018 6 - Diarrhea MAPROTILINE 05/16/2009 9 - Itching MONUROL (FOSFOMYCIN) 05/18/2021 6 - Diarrhea MUCOMYST (ACETYLCYSTEINE) 10/30/2012 3 - Cough Comments: increase wheezing OXYCODONE 01/17/2011 12 - Shortness of Breath PENICILLINS 01/09/2005 4 - Hives Comments: Allergy skin tests to penicillin were negative. The patient took a test dose of amoxicillin and tolerated this without adverse reaction. The patient is at low risk for a severe, immediate, IgE-mediated reaction to penicillin, amoxicillin and other penicillin-type antibiotics. Skin tests are unreliable for predicting delayed reactions. TORADOL (KETOROLAC TROMETHAMINE) 04/06/2011 7 - Swelling ULTRAM (TRAMADOL HCL) 07/25/2005 14 - Other: See Comments Comments: chest pains VANCOMYCIN 01/21/2015 14 - Other: See Comments Comments: Wheezing after taking, legs swollen and tongue swelling and scratchy neck VENLAFAXINE 07/09/2011 8 - GI Upset ZITHROMAX (AZITHROMYCIN) 01/19/2005 9 - Itching MIRTAZAPINE 11/17/2013 14 - Other: See Comments Comments: Hand shakes. Date Reviewed: 11/04/2024 Reviewed by: Nuno Benson APRN.GEOSCIENCE LABORATORY TECHNICIAN - Fully Assessed Reason for Visit: Swelling [205] Primary Visit Diagnosis:Foot pain, left [M79.672] Other Visit Diagnosis:Injury of left lower extremity, subsequent encounter [S89.92XD] Order(s):POST - OP SHOE [[id number]] Order #: [id number] Prescriptions as of 11/10/2024 - imipramine HCl (TOFRANIL) 50 mg tablet Take 1 tablet by mouth daily at bedtime. - simvastatin (ZOCOR) 40 mg tablet Take 1 tablet by mouth daily at bedtime. - mupirocin (BACTROBAN) 2 % ointment Apply to affected area once daily. - clonazePAM (KLONOPIN) 1 mg tablet Take 1 tablet by mouth two times a day for 90 days. Patient should start on October 28, 2024. - Nebulizer Accessories kit 1 Kit as needed. - nystatin (MYCOSTATIN) 100,000 unit/mL suspension Take 5 mL by mouth four times daily. 1tsp swish in mouth for several minutes, then swallow (or expectorate) 4 times daily until gone. - budesonide-formoterol (SYMBICORT) 160-4.5 mcg/actuation inhaler Inhale 2 Puffs as instructed two times a day. - albuterol HFA (VENTOLIN HFA) 90 mcg/actuation inhaler Inhale 2 Puffs as instructed every 4 hours as needed for wheezing/shortness of breath. - montelukast (more content not included)... [facility] ([id number]) 1960 F Date Time Provider Department 11/09/24 NUNO BENSON During your visit today, we recorded the following information about you: Lissette Gomez 11/09/2024 2:19 PM Signed Patient called said the antibiotic gave her a yeast infection patient if requesting a Rx of Diflucan Please send to [facility] Patient can be reached at [phone] Please advise Nuno Benson APRN.GEOSCIENCE LABORATORY TECHNICIAN 11/09/2024 3:06 PM Signed Diflucan sent, please see if she got scheduled with wound center. Thanks. Dulce Centeno RN 11/09/2024 3:55 PM Signed Pt called and is notified of providers results and question. Pt voices understanding, she states she has an appointment this Saturday. Dulce Centeno RN Allergies As of Date: 11/09/2024 Noted Allergy Reaction AMOXICILLIN 01/17/2023 2 - Rash Comments: Rash a few days into a course of treatment. Noted that had not reacted to test dose penicillin but developed rash after a few days on amoxicillin. ASPIRIN (SALICYLATES) 05/24/2006 7 - Swelling 12 - Shortness of Breath Comments: wheezing,swelling lips,rash,hives CODEINE 02/15/2005 4 - Hives VICODIN (HYDROCODONE-ACETAMINOP HE*02/15/2005 4 - Hives CEFDINIR 12/21/2019 9 - Itching Comments: Itchy scaly rash. (Patient may take penicillin and other penicillin type antibiotics. See allergy visit on 01/08/23) DEMEROL (MEPERIDINE (PF)) 01/03/2006 2 - Rash TYLENOL (ACETAMINOPHEN) 01/02/2006 5 - Intolerance 12 - Shortness of Breath Comments: asthma; makes it hard for her to breathe AMBIEN (ZOLPIDEM) 04/07/2022 5 - Intolerance Comments: Was sleepwalking (arranging books but hull not recall) BACTRIM (SULFAMETHOXAZOLE-TRIME TH*07/25/2005 Comments: uncertain BUDESONIDE 06/26/2018 2 - Rash CELEXA (CITALOPRAM HYDROBROMIDE) 07/25/2005 8 - GI Upset DOXY (DOXYCYCLINE) 06/04/2005 Comments: rash and asthma DUREZOL (DIFLUPREDNATE) 03/04/2014 2 - Rash IBUPROFEN 07/25/2005 12 - Shortness of Breath KEFLEX (CEPHALEXIN) 10/26/2024 5 - Intolerance LEXAPRO (ESCITALOPRAM OXALATE) 07/25/2005 8 - GI Upset LYRICA (PREGABALIN) 04/10/2011 1 - Mental Status Change Comments: dizzy MACROBID (NITROFURANTOIN MONOHYD/*06/26/2018 6 - Diarrhea MAPROTILINE 05/16/2009 9 - Itching MONUROL (FOSFOMYCIN) 05/18/2021 6 - Diarrhea MUCOMYST (ACETYLCYSTEINE) 10/30/2012 3 - Cough Comments: increase wheezing OXYCODONE 01/17/2011 12 - Shortness of Breath PENICILLINS 01/09/2005 4 - Hives Comments: Allergy skin tests to penicillin were negative. The patient took a test dose of amoxicillin and tolerated this without adverse reaction. The patient is at low risk for a severe, immediate, IgE-mediated reaction to penicillin, amoxicillin and other penicillin-type antibiotics. Skin tests are unreliable for predicting delayed reactions. TORADOL (KETOROLAC TROMETHAMINE) 04/06/2011 7 - Swelling ULTRAM (TRAMADOL HCL) 07/25/2005 14 - Other: See Comments Comments: chest pains VANCOMYCIN 01/21/2015 14 - Other: See Comments Comments: Wheezing after taking, legs swollen and tongue swelling and scratchy neck VENLAFAXINE 07/09/2011 8 - GI Upset ZITHROMAX (AZITHROMYCIN) 01/19/2005 9 - Itching MIRTAZAPINE 11/17/2013 14 - Other: See Comments Comments: Hand shakes. Date Reviewed: 11/04/2024 Reviewed by: Nuno Benson APRN.GEOSCIENCE LABORATORY TECHNICIAN - Fully Assessed Reason for Visit: Patient Question [8432] Cmt: Rx for yeast infection / from antibiotic Order(s):fluconazole (DIFLUCAN) 150 mg tabletTake 1 tablet by mouth one time only for 1 dose. Repeat in 3 days as needed.Disp: 2 tabletRfl: 0 Prescriptions as of 11/09/2024 - fluconazole (DIFLUCAN) 150 mg tablet Take 1 tablet by mouth one time only for 1 dose. Repeat in 3 days as needed. - imipramine HCl (TOFRANIL) 50 mg tablet Take 1 tablet by mouth daily at bedtime. - simvastatin (ZOCOR) 40 mg tablet Take 1 tablet by mouth daily at bedtime. - mupirocin (BACTROBAN) 2 % ointment Apply to affected area once daily. - clonazePAM (KLONOPIN) 1 mg tablet Take 1 tablet by mouth two times a day for 90 days. Patient should start on October 28, 2024. - Nebulizer Accessories kit 1 Kit as needed. - nystatin (MYCOSTATIN) 100,000 unit/mL suspension Take 5 mL by mouth four times daily. 1tsp swish in mouth for several minutes, then swallow (or expectorate) 4 times daily until gone. - budesonide-formoterol (SYMBICORT) 160-4.5 mcg/actuation inhaler Inhale 2 Puffs as instructed two times a day. - albuterol HFA (VENTOLIN HFA) 90 mcg/actuation inhaler Inhale 2 Puffs as instructed every 4 hours as needed for wheezing/shortness of breath. - montelukast (SINGULAIR) 10 mg tablet Take 1 tablet by mouth daily at bedtime. - lansoprazole (PREVACID) 30 mg capsule Take 1 capsule by mouth once daily. - sucralfate (CARAFATE) 1 gram tablet Take 1 tablet by mouth before meals and at bedtime. - Estr (more content not included)... Normal [facility] CNOVon 11-04-2024 CNOV Office Visit (INTMWS ) CHEY JEFFERS ([id number]) 1960 F Date Time Provider Department 11/04/24 2:20 PM NUNO BENSON During your visit today, we recorded the following information about you: Temperature Pulse Respiration Blood pressure 98.2 degrees 106/minute 14/minute 120/78 Weight 67.9 kg Nuno Benson APRN.GEOSCIENCE LABORATORY TECHNICIAN 11/04/2024 2:58 PM Signed SUBJECTIVE Chey Jeffers is a 63 year old female here today for a check up on her medical problems. Chief Complaint Patient presents with: Follow Up Suture Removal HPI Chey Jeffers is a 63 year old female. She is an established patient of Edda Oconnor MD. Here today to get the remaining sutures removed from her wound to the left lower leg. Still with foot, ankle and some leg swelling to the soft tissue. On Levaquin. Needs to schedule with the wound center. She also would like PCP office to order CT of the abdomen that GI had discussed with her. 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 Her medications were reviewed today and her list is now up to date. Medications Current Outpatient Medications Medication Sig imipramine HCl (TOFRANIL) 50 mg tablet Take 1 tablet by mouth daily at bedtime. simvastatin (ZOCOR) 40 mg tablet Take 1 tablet by mouth daily at bedtime. mupirocin (BACTROBAN) 2 % ointment Apply to affected area once daily. clonazePAM (KLONOPIN) 1 mg tablet Take 1 tablet by mouth two times a day for 90 days. Patient should start on October 28, 2024. Nebulizer Accessories kit 1 Kit as needed. budesonide-formoterol (SYMBICORT) 160-4.5 mcg/actuation inhaler Inhale 2 Puffs as instructed two times a day. albuterol HFA (VENTOLIN HFA) 90 mcg/actuation inhaler Inhale 2 Puffs as instructed every 4 hours as needed for wheezing/shortness of breath. montelukast (SINGULAIR) 10 mg tablet Take 1 tablet by mouth daily at bedtime. lansoprazole (PREVACID) 30 mg capsule Take 1 capsule by mouth once daily. sucralfate (CARAFATE) 1 gram tablet Take 1 tablet by mouth before meals and at bedtime. Estradiol (ESTRACE) 0.5 mg tablet Take 1 tablet by mouth once daily. fexofenadine (NAN) 180 mg tablet Take 1 tablet by mouth once daily. GEMTESA 75 mg tablet Take 1 tablet by mouth every afternoon. Albuterol Sulfate 1.25 mg/3 mL nebulizer solution Use 1 Ampule via nebulizer every 6 hours as needed for wheezing/shortness of breath. ipratropium (ATROVENT) 0.02 % nebulizer solution Use 2.5 mL via nebulizer four times daily as needed for wheezing/shortness of breath. calcium carb/vit D2/minerals (CALTRATE PLUS ORAL) Take 1 capsule by mouth once daily. fluticasone (FLONASE) 50 mcg/actuation nasal spray Use 1 Meraux in each nostril twice daily. VIA SPACER THEN RINSE AND GARGLE MOUTH WITH WATER. LOPERAMIDE HCL (IMODIUM ORAL) Take by mouth as needed. vit e acetate/gly/dimeth/wate r(CETAPHIL MOISTURIZING LOTION) apply twice daily iv contrast (will be provided with radiology test) CT ABD W -Inject, intravenously, once for 1 dose.No IV [...] be provided with radiology test) For CT ABD W IVCON order Administer, As Directed One Time Only, via Oral, Rectal, both Oral and Rectal, Enteric Tube, Stoma or Indwelling Catheter, Enteric Contrast as designated per enteric contrast guidelines nystatin (MYCOSTATIN) 100,000 unit/mL suspension Take 5 mL by mouth four times daily. 1tsp swish in mouth for several minutes, then swallow (or expectorate) 4 times daily until gone. No current facility-administered medications for this visit. ALLERGIES Allergen Reactions Amoxicillin Rash Rash a few days into a course of treatment. Noted that had not reacted to test dose penicillin but developed rash after a few days on amoxicillin. Aspirin [Salicylate* Swelling, Shortness of Breath wheezing,swelling lips,rash,hives Codeine Hives Vicodin [Hydrocodon* Hives Cefdinir Itching Itchy scaly rash. (Patient may take penicillin and other penicillin type antibiotics. See allergy visit on 01/08/23) Demerol [Meperidine* Rash Tylenol [Acetaminop* Intolerance, Shortness of Breath asthma; makes it hard for her to breathe Ambien [Zolpidem] Intolerance Was sleepwalking (arranging books but hull not recall) Bactrim [Sulfametho* uncertain Budesonide Rash Celexa [Citalopram * GI Upset Doxy [Doxycycline] rash and asthma Durezol [Diflupredn* Rash Ibuprofen Shortness of Breath Keflex [Cephalexin] Intolerance [place] (more content not included)... Normal [facility] Creatinine + eGFR Pnl SerPlB ldon 11-04-2024 Creatinine and Glomerular filtration rate.predicted panel (S/P/Bld) 62 mL/min/1.73m??? Normal >=60 [facility] Comment on above: Order Comment: Nohemi daniels Type: BLOOD SPECIMENOrdering Facility: [facility] Address: [address] [place] [address] Result Comment: Laura mated Glomerular Filtration Rate (eGFR) is calculated using the 2020 CKD-EPI creatinine equation. This equation utilizes serum creatinine, sex, and age as parameters. The creatinine assay has traceable calibration to isotope dilution-mass spectrometry. Refer to KDIGO guidelines for clinical interpretation. In patients with unstable renal function, e.g. those with acute kidney injury, the eGFR may not accurately reflect actual GFR. Performed By: #### [id number] ####[facility] LABCLIA [id number] [place] [address] [place] Creatinine and Glomerular fi ltration rate.predicted panel (S/P/Bld)on 11-04-2024 Creatinine [Mass/Vol] 1.02 mg/dL High 0.58-0.96 [facility] Comment on above: Order Comment: Nohemi daniels Type: BLOOD SPECIMENOrdering Facility: [facility] Address: [address] [place] [address] Performed By: #### 4 [id number] ####[facility] [id number] [facility] [address] [place] Suture Removalon 11-04-2024 Nuno Benson APRN. CNP 11/04/2024 2:58 PM SUTURE REMOVAL Date/Time: 11/04/2024 2:55 PM Performed by: Nuno Benson APRN.CNP Authorized by: Nuno Benson APRN.CNP Location: Body area: Lower extremity Location details: Left lower leg Procedure details: Wound appearance: Clean and tender Post-removal: Dressing applied, Steri-Strips applied and antibiotic ointment applied Suture not placed during surgical procedure Patient tolerance: Patient tolerated the procedure well with no immediate complications [facility] CNOVon 11-02-2024 CNOV Office Visit (INTMWS ) CHEY JEFFERS ([id number]) 1960 F Date Time Provider Department 11/02/24 8:40 AM NUNO BENSON INTMWS During your visit today, we recorded the following information about you: Temperature Pulse Blood pressure 98.3 degrees 108/minute 108/88 Nuno Benson APRN.CNP 11/02/2024 10:03 AM Signed SUBJECTIVE Chey Jeffers is a 63 year old female here today for a check up on her medical problems. Chief Complaint Patient presents with: Recheck: wound of left lower leg states foot is very swollen despite elevation and ice HPI Chey Jeffers is a 63-year-old female presenting for follow-up after an ER visit on 10/22/2024 at [facility] for a fall resulting in a left lower leg injury. Chey was seen last week on 10/26/2024 following an ER visit on 10/22/2024 for a fall resulting in a left lower leg injury. Sutures were placed to secure a skin flap, and she was started on Keflex. However, she felt like she was having a reaction to the Keflex, so it was discontinued, and mupirocin ointment was started. She was also planning to follow up with ENT on the same day and potentially start Levaquin, which she confirms she has started. She reports persistent pain in the left lower leg, ankle, and foot, as well as swelling in the foot. She has been icing the area 2-3 times a day for almost 20 minutes at a time and propping it up. She has also used Epsom salts but is being careful not to get the wound wet. She notes that the redness of the wound has improved, stating it was previously beet red. She is concerned about the appearance of the wound, describing it as gross, and is apprehensive about suture removal due to anticipated pain. Her medications were reviewed today and her list is now up to date. Medications Current Outpatient Medications Medication Sig imipramine HCl (TOFRANIL) 50 mg tablet Take 1 tablet by mouth daily at bedtime. simvastatin (ZOCOR) 40 mg tablet Take 1 tablet by mouth daily at bedtime. mupirocin (BACTROBAN) 2 % ointment Apply to affected area once daily. clonazePAM (KLONOPIN) 1 mg tablet Take 1 tablet by mouth two times a day for 90 days. Patient should start on October 28, 2024. Nebulizer Accessories kit 1 Kit as needed. nystatin (MYCOSTATIN) 100,000 unit/mL suspension Take 5 mL by mouth four times daily. 1tsp swish in mouth for several minutes, then swallow (or expectorate) 4 times daily until gone. budesonide-formoterol (SYMBICORT) 160-4.5 mcg/actuation inhaler Inhale 2 Puffs as instructed two times a day. albuterol HFA (VENTOLIN HFA) 90 mcg/actuation inhaler Inhale 2 Puffs as instructed every 4 hours as needed for wheezing/shortness of breath. montelukast (SINGULAIR) 10 mg tablet Take 1 tablet by mouth daily at bedtime. lansoprazole (PREVACID) 30 mg capsule Take 1 capsule by mouth once daily. sucralfate (CARAFATE) 1 gram tablet Take 1 tablet by mouth before meals and at bedtime. Estradiol (ESTRACE) 0.5 mg tablet Take 1 tablet by mouth once daily. fexofenadine (NAN) 180 mg tablet Take 1 tablet by mouth once daily. GEMTESA 75 mg tablet Take 1 tablet by mouth every afternoon. Albuterol Sulfate 1.25 mg/3 mL nebulizer solution Use 1 Ampule via nebulizer every 6 hours as needed for wheezing/shortness of breath. ipratropium (ATROVENT) 0.02 % nebulizer solution Use 2.5 mL via nebulizer four times daily as needed for wheezing/shortness of breath. calcium carb/vit D2/minerals (CALTRATE PLUS ORAL) Take 1 capsule by mouth once daily. fluticasone (FLONASE) 50 mcg/actuation nasal spray Use 1 Meraux in each nostril twice daily. VIA SPACER THEN RINSE AND GARGLE MOUTH WITH WATER. LOPERAMIDE HCL (IMODIUM ORAL) Take by mouth as needed. vit e acetate/gly/dimeth/wate r(CETAPHIL MOISTURIZING LOTION) apply twice daily No current facility-administered medications for this visit. ALLERGIES Allergen Reactions Amoxicillin Rash Rash a few days into a course of treatment. Noted that had not reacted to test dose penicillin but developed rash after a few days on amoxicillin. Aspirin [Salicylate* Swelling, Shortness of Breath wheezing,swelling lips,rash,hives Codeine Hives Vicodin [Hydrocodon* Hives Cefdinir Itching Itchy scaly rash. (Patient may take penicillin and other penicillin type antibiotics. See allergy visit on 01/08/23) Demerol [Meperidine* Rash Tylenol [Acetaminop* Intolerance, Shortness of Breath asthma; makes it hard for her to breathe Ambien [Zolpidem] Intolerance Was sleepwalking (arranging books but hull not recall) Bactrim [Sulfametho* uncertain Budesonide Rash Celexa [Citalopram * GI Upset Doxy [Doxycycline] rash and asthma Durezol [Diflupredn* Rash Ibuprofen Shortness of Breath Keflex [Cephalexin] Intolerance Lexapro [Escitalopr* GI Upset Lyrica [Pregabalin] Mental Status Change dizzy Macrobid [Nitrofur (more content not included)... Normal [facility] 11-02-2024 [facility] Telephone (FAMPWS) CHEY JEFFERS ([id number]) 1960 F Date Time Provider Department 11/02/24 [facility] your visit today, we recorded the following information about you: Shae Jett LPN 11/02/2024 11:49 AM Signed Pt calls to report she forgot to ask provider at appt today if provider was able to get in contact with Dr. Thomason in regards to abominal issue addressed at 10/26/24 appt. Please review and advise. MICHELLE Dickey Rosa, APRN.GEOSCIENCE LABORATORY TECHNICIAN 11/02/2024 12:45 PM Signed I did not get in contact with them, can update pt with her follow up later this week. Allergies As of Date: 11/02/2024 Noted Allergy Reaction AMOXICILLIN 01/17/2023 2 - Rash Comments: Rash a few days into a course of treatment. Noted that had not reacted to test dose penicillin but developed rash after a few days on amoxicillin. ASPIRIN (SALICYLATES) 05/24/2006 7 - Swelling 12 - Shortness of Breath Comments: wheezing,swelling lips,rash,hives CODEINE 02/15/2005 4 - Hives VICODIN (HYDROCODONE-ACETAMINOP HE*02/15/2005 4 - Hives CEFDINIR 12/21/2019 9 - Itching Comments: Itchy scaly rash. (Patient may take penicillin and other penicillin type antibiotics. See allergy visit on 01/08/23) DEMEROL (MEPERIDINE (PF)) 01/03/2006 2 - Rash TYLENOL (ACETAMINOPHEN) 01/02/2006 5 - Intolerance 12 - Shortness of Breath Comments: asthma; makes it hard for her to breathe AMBIEN (ZOLPIDEM) 04/07/2022 5 - Intolerance Comments: Was sleepwalking (arranging books but hull not recall) BACTRIM (SULFAMETHOXAZOLE-TRIME TH*07/25/2005 Comments: uncertain BUDESONIDE 06/26/2018 2 - Rash CELEXA (CITALOPRAM HYDROBROMIDE) 07/25/2005 8 - GI Upset DOXY (DOXYCYCLINE) 06/04/2005 Comments: rash and asthma DUREZOL (DIFLUPREDNATE) 03/04/2014 2 - Rash IBUPROFEN 07/25/2005 12 - Shortness of Breath KEFLEX (CEPHALEXIN) 10/26/2024 5 - Intolerance LEXAPRO (ESCITALOPRAM OXALATE) 07/25/2005 8 - GI Upset LYRICA (PREGABALIN) 04/10/2011 1 - Mental Status Change Comments: dizzy MACROBID (NITROFURANTOIN MONOHYD/*06/26/2018 6 - Diarrhea MAPROTILINE 05/16/2009 9 - Itching MONUROL (FOSFOMYCIN) 05/18/2021 6 - Diarrhea MUCOMYST (ACETYLCYSTEINE) 10/30/2012 3 - Cough Comments: increase wheezing OXYCODONE 01/17/2011 12 - Shortness of Breath PENICILLINS 01/09/2005 4 - Hives Comments: Allergy skin tests to penicillin were negative. The patient took a test dose of amoxicillin and tolerated this without adverse reaction. The patient is at low risk for a severe, immediate, IgE-mediated reaction to penicillin, amoxicillin and other penicillin-type antibiotics. Skin tests are unreliable for predicting delayed reactions. TORADOL (KETOROLAC TROMETHAMINE) 04/06/2011 7 - Swelling ULTRAM (TRAMADOL HCL) 07/25/2005 14 - Other: See Comments Comments: chest pains VANCOMYCIN 01/21/2015 14 - Other: See Comments Comments: Wheezing after taking, legs swollen and tongue swelling and scratchy neck VENLAFAXINE 07/09/2011 8 - GI Upset ZITHROMAX (AZITHROMYCIN) 01/19/2005 9 - Itching MIRTAZAPINE 11/17/2013 14 - Other: See Comments Comments: Hand shakes. Date Reviewed: 11/02/2024 Reviewed by: Vivi Acosta LPN - Fully Assessed Prescriptions as of 11/02/2024 - imipramine HCl (TOFRANIL) 50 mg tablet Take 1 tablet by mouth daily at bedtime. - simvastatin (ZOCOR) 40 mg tablet Take 1 tablet by mouth daily at bedtime. - mupirocin (BACTROBAN) 2 % ointment Apply to affected area once daily. - clonazePAM (KLONOPIN) 1 mg tablet Take 1 tablet by mouth two times a day for 90 days. Patient should start on October 28, 2024. - Nebulizer Accessories kit 1 Kit as needed. - nystatin (MYCOSTATIN) 100,000 unit/mL suspension Take 5 mL by mouth four times daily. 1tsp swish in mouth for several minutes, then swallow (or expectorate) 4 times daily until gone. - budesonide-formoterol (SYMBICORT) 160-4.5 mcg/actuation inhaler Inhale 2 Puffs as instructed two times a day. - albuterol HFA (VENTOLIN HFA) 90 mcg/actuation inhaler Inhale 2 Puffs as instructed every 4 hours as needed for wheezing/shortness of breath. - montelukast (SINGULAIR) 10 mg tablet Take 1 tablet by mouth daily at bedtime. - lansoprazole (PREVACID) 30 mg capsule Take 1 capsule by mouth once daily. - sucralfate (CARAFATE) 1 gram tablet Take 1 tablet by mouth before meals and at bedtime. - Estradiol (ESTRACE) 0.5 mg tablet Take 1 tablet by mouth once daily. - fexofenadine (NAN) 180 mg tablet Take 1 tablet by mouth once daily. - GEMTESA 75 mg tablet Take 1 tablet by mouth every afternoon. - Albuterol Sulfate 1.25 mg/3 mL nebulizer solution Use 1 Ampule via nebulizer every 6 hours as needed for wheezing/shortness of breath. - ipratropium (ATROVENT) 0.02 % nebulizer solution Use 2.5 mL via nebulizer four times daily as needed for wheezing/shortness of breath. - jai (more content not included)... Normal [facility] XR ANKLE 3V AP/LAT/OBL LTon 11-02-2024 XR ANKLE 3V AP/LAT/OBL LT * * *Final Report* * * DATE OF EXAM: Nov 02 2024 10:04AM [id number] - XR ANKLE 3V AP/LAT/OBL LT / PROCEDURE REASON: multiple diagnoses * * * * Physician Interpretation * * * * FOOT AND ANKLE RADIOGRAPHS - LEFT HISTORY: Wound of left lower extremity, subsequent encounter Swelling of left lower extremity TECHNOLOGIST PROVIDED HISTORY (if applicable): Pt. scraped Lt lower leg on 10/22/24. Pt. has lt lower leg wrapped with multiple stitched. Swelling throughout lt foot and ankle. TECHNIQUE: XR ANKLE 3V AP/LAT/OBL LT, XR FOOT 3V AP/LAT/OBL LT COMPARISON: None available RESULT: Bone mineralization appears normal. Left ankle: There is no acute osseous, articular, or soft tissue abnormality. There is no joint effusion. Generalized soft tissue swelling about the ankle. Ankle mortise appears intact. Left foot: There are no visualized articular erosions in the foot. No focal bony abnormality is identified. Joint spaces are preserved, and there is dorsal forefoot soft tissue swelling. IMPRESSION: 1. Nonspecific soft tissue swelling about the ankle and dorsal foot. Agricultural Chemicals Inspector: SHANON Transcribe Date/Time: Nov 08 2024 8:38A Dictated by : TRE MITCHELL MD This examination was interpreted and the report reviewed and electronically signed by: TRE MITCHELL MD on Nov 08 2024 8:39AM EST [id number] Normal [facility] XR FOOT 3V AP/LAT/OBL LTon 0 11-02-2024 XR FOOT 3V AP/LAT/OBL LT * * *Final Report* * * DATE OF EXAM: Nov 02 2024 10:04AM [id number] - XR FOOT 3V AP/LAT/OBL LT / PROCEDURE REASON: multiple diagnoses * * * * Physician Interpretation * * * * FOOT AND ANKLE RADIOGRAPHS - LEFT HISTORY: Wound of left lower extremity, subsequent encounter Swelling of left lower extremity TECHNOLOGIST PROVIDED HISTORY (if applicable): Pt. scraped Lt lower leg on 10/22/24. Pt. has lt lower leg wrapped with multiple stitched. Swelling throughout lt foot and ankle. TECHNIQUE: XR ANKLE 3V AP/LAT/OBL LT, XR FOOT 3V AP/LAT/OBL LT COMPARISON: None available RESULT: Bone mineralization appears normal. Left ankle: There is no acute osseous, articular, or soft tissue abnormality. There is no joint effusion. Generalized soft tissue swelling about the ankle. Ankle mortise appears intact. Left foot: There are no visualized articular erosions in the foot. No focal bony abnormality is identified. Joint spaces are preserved, and there is dorsal forefoot soft tissue swelling. IMPRESSION: 1. Nonspecific soft tissue swelling about the ankle and dorsal foot. Agricultural Chemicals Inspector: PSCB Transcribe Date/Time: Nov 08 2024 8:38A Dictated by : TRE MITCHELL MD This examination was interpreted and the report reviewed and electronically signed by: TRE MITCHELL MD on Nov 08 2024 8:39AM EST [id number] Normal [facility] CNOVon 10-26-2024 CNOV Office Visit (INTMWS ) CHEY JEFFERS ([id number]) 1960 F Date Time Provider Department 10/26/24 9:20 AM NUNO BENSON INTMWS During your visit today, we recorded the following information about you: Pulse Blood pressure Weight 105/minute 116/90 68 kg Nuno Benson APRN.GEOSCIENCE LABORATORY TECHNICIAN 11/02/2024 9:58 AM Addendum SUBJECTIVE Chey Jeffers is a 63 year old female here today for a check up on her medical problems. Chief Complaint Patient presents with: F/U 6 months: [facility] ER 10/22/24 left leg laceration Mass: noted a hard mass in abdomen and having cramps after eating. Was suggested that she have a CT scan HPI Chey Jeffers is a 63 year old female. Here today for a follow up. Also was seen in the ER recently. Was in the ER at [facility] on 10/22 following a fall that resulted in a wound to her left lower leg. She had sutures placed to secure a skin flap and was placed on Keflex. She feels she is having a reaction to the Keflex. Site does not have drainage. More depressed since the passing of her mother. Not sleeping great. More anxiety. She also has concerns of a bulge to her abdomen, superior to the umbilicus. Follows with Dr. SEJAL Friend. He recommend she do a CT scan. Her medications were reviewed today and her list is now up to date. Medications Current Outpatient Medications Medication Sig nystatin (MYCOSTATIN) 100,000 unit/mL suspension Take 5 mL by mouth four times daily. 1tsp swish in mouth for several minutes, then swallow (or expectorate) 4 times daily until gone. budesonide-formoterol (SYMBICORT) 160-4.5 mcg/actuation inhaler Inhale 2 Puffs as instructed two times a day. albuterol HFA (VENTOLIN HFA) 90 mcg/actuation inhaler Inhale 2 Puffs as instructed every 4 hours as needed for wheezing/shortness of breath. montelukast (SINGULAIR) 10 mg tablet Take 1 tablet by mouth daily at bedtime. lansoprazole (PREVACID) 30 mg capsule Take 1 capsule by mouth once daily. sucralfate (CARAFATE) 1 gram tablet Take 1 tablet by mouth before meals and at bedtime. Estradiol (ESTRACE) 0.5 mg tablet Take 1 tablet by mouth once daily. fexofenadine (NAN) 180 mg tablet Take 1 tablet by mouth once daily. GEMTESA 75 mg tablet Take 1 tablet by mouth every afternoon. Albuterol Sulfate 1.25 mg/3 mL nebulizer solution Use 1 Ampule via nebulizer every 6 hours as needed for wheezing/shortness of breath. ipratropium (ATROVENT) 0.02 % nebulizer solution Use 2.5 mL via nebulizer four times daily as needed for wheezing/shortness of breath. calcium carb/vit D2/minerals (CALTRATE PLUS ORAL) Take 1 capsule by mouth once daily. fluticasone (FLONASE) 50 mcg/actuation nasal spray Use 1 Meraux in each nostril twice daily. VIA SPACER THEN RINSE AND GARGLE MOUTH WITH WATER. LOPERAMIDE HCL (IMODIUM ORAL) Take by mouth as needed. vit e acetate/gly/dimeth/wate r(CETAPHIL MOISTURIZING LOTION) apply twice daily simvastatin (ZOCOR) 40 mg tablet Take 1 tablet by mouth daily at bedtime. mupirocin (BACTROBAN) 2 % ointment Apply to affected area once daily. imipramine HCl (TOFRANIL) 50 mg tablet Take 1 tablet by mouth daily at bedtime. [START ON 10/28/2024] clonazePAM (KLONOPIN) 1 mg tablet Take 1 tablet by mouth two times a day for 90 days. Patient should start on October 28, 2024. Nebulizer Accessories kit 1 Kit as needed. No current facility-administered medications for this visit. ALLERGIES Allergen Reactions Amoxicillin Rash Rash a few days into a course of treatment. Noted that had not reacted to test dose penicillin but developed rash after a few days on amoxicillin. Aspirin [Salicylate* Swelling, Shortness of Breath wheezing,swelling lips,rash,hives Codeine Hives Vicodin [Hydrocodon* Hives Cefdinir Itching Itchy scaly rash. (Patient may take penicillin and other penicillin type antibiotics. See allergy visit on 01/08/23) Demerol [Meperidine* Rash Tylenol [Acetaminop* Intolerance, Shortness of Breath asthma; makes it hard for her to breathe Ambien [Zolpidem] Intolerance Was sleepwalking (arranging books but hull not recall) Bactrim [Sulfametho* uncertain Budesonide Rash Celexa [Citalopram * GI Upset Doxy [Doxycycline] rash and asthma Durezol [Diflupredn* Rash Ibuprofen Shortness of Breath Keflex [Cephalexin] Intolerance Lexapro [Escitalopr* GI Upset Lyrica [Pregabalin] Mental [...] Skin tests are unreliable for predicting delayed (more content not included)... Normal [facility] Emergency Department Summary on 10-22-2024 Emergency Department Summary [facility] Medical Records Department [address] [place] [address] Emergency Department Summary 10/22/24 MR#: [id number] Acct: [id number] Name: CHEY JEFFERS Rep #: [id number] : 1960 63 From: Juanjose Beckman DO PCP: Dr. Edda Oconnor MD Status:DEP ER Location: ED HPI HPI - Fall History of Present Illness Chief Complaint: Fall Narrative Narrative: Chief complaint and HPI: Left walls injury. 63-year-old female with past medical history of COPD, fibromyalgia, depression/anxiety presents for evaluation of left walls injury. Patient states around noon today she had a mechanical fall outside on concrete. Did not hit her head. No LOC. States she obtained an abrasion/laceration to the left walls. Did clean the wound and dress it. Patient endorses burning in the area. She denies any fever, chills, shortness of breath, chest pain abdominal pain, nausea, vomiting, dysuria, weakness, numbness/tingling. Denies any neck or back pain. Denies any injury elsewhere. Her last tetanus was in 2020. Review of systems: See HPI Medications: As listed on the chart Allergies: As listed on the chart PFSH: Per chart Vital signs: As listed on the chart. Reviewed. Physical exam: Gen: A O x3, NAD Head: Normocephalic, atraumatic Eyes: No sclera icterus, conjunctiva clear, PERRL ENT: Moist mucous membranes, face atraumatic Neck: Trachea midline, No JVD, full range of motion CV: RRR, no murmurs, no peripheral edema Resp: Lungs CTA BL, no w/r/c GI: Abd soft, non-distended, non-tender, no r/r/g Musc: Full ROM, no deformity, patient has an extensive skin tear to the left anterior walls with underlying fat exposed it measures 11 cm, tender to palpation with mild swelling and ecchymosis, no erythema/warmth/crepitu s, knee/ankle nontender to palpation DP/PT pulses +2 bilaterally Skin: Warm, dry Neuro: Alert, oriented, grossly intact, sensation intact Psych: Cooperative, appropriate mood and affect [facility] Medical History (Updated 10/22/24 @ 18:[address] Juanjose Beckman, ) History of stress test History of deviated nasal septum Wears dentures History of steroid therapy Arthritis Bladder disease High cholesterol History of IBS Non-smoker Shortness of breath on exertion COPD (chronic obstructive pulmonary disease) Asthma Migraine Degenerative disc disease Fibromyalgia Depression Anxiety Home Medications ???Medication ???Instructions ???Recorded ???Last Taken ???Type albuterol sulfate 90 mcg/actuation 1 - 2 puff IH Q4H PRN PRN Asthma 07/09/14 04/07/18 08:00 History aerosol inhaler (Ventolin HFA) clonazepam 0.5 mg tablet 0.5 mg PO BID ANXIETY 07/09/14 History fluticasone propionate 50 1 spray DAILY PRN PRN Allergies Unknown History mcg/actuation nasal spray,suspension lansoprazole 30 mg capsule,delayed 30 mg PO DAILY , 07/09/14 History release (Prevacid) simvastatin 40 mg tablet 40 mg PO QHS CHOLESTEROL 07/09/14 09/20/24 History loperamide 2 mg capsule 2 mg PO Q6H PRN PRN Diarrhea ##20 07/22/14 08/09/16 Rx fexofenadine 180 mg tablet 180 mg PO QHS . 03/26/17 09/20/24 History (Nan Allergy) imipramine HCl 50 mg tablet 50 mg PO QHS depression 01/07/18 0 09/20/24 History budesonide-formoterol HFA 160 2 puff inhalation BID 04/04/18 History mcg-4.5 mcg/actuation aerosol inhaler (Symbicort) calcium 200 mg (as 1 ea PO DAILY 04/04/18 09/20/24 Hi story citrate)-vitamin D3 6.25 mcg (250 unit) tablet (Citracal-D3 Petites) ipratropium 0.5 mg-albuterol 3 mg 3 ml inhalation Q4H PRN BREATHING 04/04/18 Unknown History (2.5 mg base)/3 mL nebulization soln sucralfate 1 gram tablet 1 g PO BID 04/04/18 09/21/24 Histo ry montelukast 10 mg tablet 10 mg PO DAILY 02/06/22 09/20/24 H istory (Singulair) vibegron 75 mg tablet (Gemtesa) 75 mg PO DAILY 07/20/24 09/21/24 H istory fesoterodine 4 mg tablet,extended 4 mg PO DAILY 09/21/24 09/21/24 H istory release 24 hr cephalexin 500 mg capsule 500 mg PO Q12 #14 CAPSULES 5 Unknown Rx Allergy/AdvReac Type Severity Reaction Status Date / Time aspirin Allergy Severe Anaphylaxis Verified 10/22/24 16:20 acetaminophen (From Vicodin) Allergy MAKES MY Verified 10/22/24 16:20 CHEST HURT azithromycin (From Zithromax) Allergy Itching Verified 10/22/24 16:20 budesonide Allergy Rash Verified 10/22/24 16:20 ciprofloxacin (From Cipro) Allergy Hives Verified 10/22/24 16:20 codeine Allergy Hives Verified 10/22/24 16:20 difluprednate (From Durezol) Allergy Rash Verified 10/22/24 16:20 doxycycline Allergy Rash Verified 10/22/24 16:20 hydrocodone bitartrate (From Allergy Hives Verified 10/22/24 16:20 Vicodin) ibuprofen (From Motrin) Allergy Shortness Verified 10/22/24 16:20 (more content not included)... Normal [facility] Tibia Fibula 2 Viewson 10-04 Tibia Fibula 2 Views [facility] Imaging Services [address] [place] [address] [id number] Tibia Fibula 2 Views MR#: [id number] Acct: [id number] Name: CHEY JEFFERS Rep #: [id number] : 1960 F 63 From: Evens Carrillo DO PCP: Dr. Edda Oconnor MD Status: REG ER Study: Tibia Fibula 2 Views Date of Exam: 10/22/24 Exam# [id number] Ordering Dr: Juanjose Beckman DO PROCEDURE: TIBIA FIBULA 2 VIEWS 10/22/2024 REASON FOR EXAM: INJURY Initial encounter. TECHNIQUE: TIBIA FIBULA 2 VIEWS COMPARISON: Comparison exam August 29, 2020. FINDINGS: Tibia and fibula are intact. No fracture. No ankle or knee dislocation. Normal bone mineralization. Soft tissues are unremarkable. RAD/Tibia Fibula 2 Views IMPRESSION: Negative tibia and fibula exam. Reading [facility] CC: Dr. Juanjose Beckman DO; Dr. Edda Oconnor MD Agricultural Chemicals Inspector: Signed Normal [facility] MRI LUMBAR SPINE WO IVCONon 10-08-2024 MRI LUMBAR SPINE WO IVCON * * *Final Report* * * DATE OF EXAM: Oct 08 2024 8:57AM [id number] - MRI LUMBAR SPINE WO IVCON / PROCEDURE REASON: Lumbar ddd and lumbar radiculopathy * * * * Physician Interpretation * * * * EXAMINATION: MRI LUMBAR SPINE WO IVCON CLINICAL HISTORY: Low back pain. TECHNIQUE: Routine lumbosacral spine MR protocol without gadolinium. MQ: [id number] COMPARISON: Lumbar spine radiographs 10/24/2023, MRI lumbar spine 03/23/2022 RESULT: Counting reference: Lumbosacral junction. For the purposes of this report, L4-5 is considered the level of the iliac crest and assume there are 5 lumbar-type vertebrae. Anatomic variant: None. Localizer images: Punctate T2 hyperintense foci in the kidneys and pancreas, likely cysts. Pancreatic cystic lesions measuring up to approximately 1.6 cm and appear slightly increased in size compared to 03/23/2022, likely side branch IPMNs. Alignment: Mild grade 1 anterolisthesis of L4 on L5, unchanged. There is slight levoconvex scoliosis of the lumbar spine. Bone marrow signal/fracture: No evidence of pathologic marrow infiltration. No evidence of prior fracture. Conus: The conus is within normal limits of signal intensity and morphology. The conus medullaris terminates at L1. Paraspinal soft tissues: Paraspinal soft tissues are within normal limits. Lower thoracic spine: Visualized lower thoracic canal and foramina are patent. L1-L2: Canal and foramina are patent. L2-L3: There is mild bilateral facet arthropathy without significant spinal canal or neural foraminal narrowing. L3-L4: Disc bulging eccentric to the right and hypertrophic facet changes with mild right neural foraminal narrowing. No significant spinal canal or left neural foraminal narrowing. L4-L5: Anterolisthesis with disc bulging and hypertrophic facet changes results in mild spinal canal narrowing. In effacement of bilateral subarticular zones with contact of the bilateral L5 descending nerve roots and minimal bilateral neural foraminal narrowing. L5-S1: Canal and foramina are patent Sacrum and iliac wings: The visualized sacrum and iliac wings are within normal limits. IMPRESSION: Multilevel degenerative changes of the lumbar spine, most pronounced at L4-5 with mild spinal canal narrowing, contact of the bilateral L5 descending nerve roots and minimal bilateral neural foraminal narrowing. Anatomic Lumbar Variant: None. L4-5 is considered the level of the iliac crest and assume there are 5 lumbar-type vertebrae. Agricultural Chemicals Inspector: SHANON Transcribe Date/Time: Oct 08 2024 9:19A Dictated by : SHANE ORDONEZ MD This examination was interpreted and the report reviewed and electronically signed by: BRICE MILLER MD on Oct 08 2024 10:20AM EST [id number] Normal [facility] Lumbar Spine 2 or 3 Viewson 09-21-2024 Lumbar Spine 2 or 3 Views [facility] Imaging Services [address] [place], [place] [id number] Lumbar Spine 2 or 3 Views MR#: [id number] Acct: [id number] Name: CHEY JEFFERS Cecilia Rep #: [id number] : 1960 F 63 From: Shane Bee MD PCP: Dr. Edda Oconnor MD Status: [facility] Study: Lumbar Spine 2 or 3 Views Date of Exam: Exam# [id number] Ordering Dr: Aryan Bianchi MD PROCEDURE: LUMBAR SPINE 2 OR 3 VIEWS 09/21/2024 REASON FOR EXAM: LT MEDIAL BRANCH BLOCK L3 L4 L5 TECHNIQUE: Fluoroscopy during lumbar injection with 2 spot images FINDINGS: Fluoroscopy time 24.4 seconds Cumulative dose 8.68 mGy 2 spot images show injection of contrast material at the right side of the areas of L3 and L4. Please see procedural report for further detail. RAD/Lumbar Spine 2 or 3 Views IMPRESSION: Fluoroscopy as above. Reading Location: [id number] CC: Dr. Aryan Bianchi MD; Dr. Edda Oconnor MD Agricultural Chemicals Inspector: Signed Normal [facility] Operative Reporton Operative Report [facility] Medical Records Department [address] [place] [address] Operative Report 09/21/24 0912 MR#: [id number] Acct: [id number] Name: CHEY JEFFERS Rep #: [id number] : 1960 63 From: Aryan Bianchi MD PCP: Dr. Edda Oconnor MD Status:REG [facility] Location: [place] [address] Operative Report (Standard) Operative Information Date of Procedure: 09/21/24 Pre-Operative Diagnosis: Lumbosacral radiculopathy, lumbosacral degenerative disc disease, lumbosacral spinal stenosis Post-Operative Diagnosis: Lumbosacral radiculopathy, lumbosacral degenerative disc disease, lumbosacral spinal stenosis Surgery/Procedure Performed: Left-sided lumbar transforaminal epidural steroid injection L3-4, L4-5 under fluoroscopic guidance manager channel: No Type of Anesthesia: Local RN Documented Start/Stop Times: Operation Date: 09/21/24 09:35 Case Time Into Pre-Op 09/21/24 07:52 Out of Pre-Op 09/21/24 08:46 Into Room 09/21/24 08:56 Procedure Start 09/21/24 09:01 Procedure End 09/21/24 09:06 Anesthesia End 09/21/24 09:08 Out of Room 09/21/24 09:08 Anesthesia Start Procedure Start Time: 09:14 Procedure Stop Time: 09:14 Select all DRAINS/GRAFTS/IMPLANTS that apply: None Estimated Blood Loss: 0 Specimen collected: No Description of surgery: PREOPERATIVE DIAGNOSES: 1. Lumbosacral radiculopathy. 2. Lumbosacral degenerative disk disease. 3. Lumbosacral spinal stenosis. POSTOPERATIVE DIAGNOSES: 1. Lumbosacral radiculopathy. 2. Lumbosacral degenerative disk disease. 3. Lumbosacral spinal stenosis. PROCEDURE PERFORMED: Left-sided lumbar transforaminal epidural steroid injection, L3-4 and L4-5. ANESTHESIA: Local BLOOD LOSS: Minimal. COMPLICATIONS: None. DESCRIPTION OF PROCEDURE: History and physical of today was reviewed. Risks and benefits of the procedure were explained. The patient understood and agreed to proceed. Informed consent was obtained. IV inserted per routine protocol. The patient was taken to the operating room and placed in the prone position with a pillow positioned underneath the abdomen. The left side of their lower back was prepped and draped in a sterile fashion using iodine x3. Under fluoroscopy guidance on oblique view, the L3 through L5 vertebral bodies were visualized. The skin and subcutaneous tissue was anesthetized with approximately 5 mL of 1% lidocaine using a 25-gauge regular needle. Under direct visualization with fluoroscopy at approximately 35-degree angle, starting on the left L3, ending on the left L4, using a 22-gauge 5-inch spinal needle, the needle was advanced via the skin. The tip of the needle was maneuvered and directed towards the inferior and medial gutter of the transverse process at the superiormost aspect of the neural foramen. Once the tip of the needle was at the vicinity of the foramen, after negative aspiration for blood or CSF, a total of 1 mL of contrast was injected in divided doses between both levels to confirm correct placement of the needle as well as medial spread. The confirmation was obtained on AP as well as lateral view. After repeated negative aspiration and confirmation on AP as well as lateral view, a total of 6 mL of preservative-free 0.25% Marcaine with 80 mg of Depo-Medrol was injected in divided doses between both levels. The needles were then removed intact. The patient experienced no sign or symptoms of intrathecal or intravascular injection. The patient experienced no paresthesia. The procedure was completed without any apparent difficulty or any complications. The patient appeared to tolerate it well. ASSESSMENT AND PLAN: This is a 63-year-old female with lumbosacral radiculopathy, lumbosacral degenerative disk disease, and lumbosacral spinal stenosis, status post left-sided lumbar transforaminal epidural steroid injection at L3-4 and L4-5. The patient will continue her current medications. The patient will follow up in approximately 2 weeks for reevaluation. Surgical Findings: 0 Complications Complications: No Admit VTE Documentation VTE Present on Admission: No VTE Mechan Device Prophylaxis: None VTE Pharm Prophylaxis ordered?: No 09/21/24 0916 Cosigner Signature (if applicable): CC: Dr. Aryan Bianchi MD; Dr. Edda Oconnor MD Signed [facility] Fluor Guidance for Spine Inj on 07-20-2024 Fluor Guidance for Spine Inj [facility] Imaging Services [address] [place] [address] Fluor Guidance for Spine Inj MR#: [id number] Acct: [id number] Name: CHEY JEFFERS Rep #: [id number] : 1960 F 63 From: Wellington Richter i DO PCP: Dr. Edda Oconnor MD Status: [facility] Study: Fluor Guidance for Spine Inj Date of Exam: Exam# [id number] Ordering Dr: Aryan Bianchi MD PROCEDURE: Fluoroscopy use. 07/20/2024 REASON FOR EXAM: Caudal nerve block TECHNIQUE: A single lateral spot view of the sacrum was obtained during caudal nerve block. 4.2 seconds of fluoroscopic time utilized. COMPARISON: None. FINDINGS: A single lateral intraoperative spot image of the sacrum was obtained during caudal nerve block. Needle tip projects over the distal sacrum. RAD/Fluor Guidance for Spine Inj IMPRESSION: Documentation of fluoroscopy use during caudal nerve block. Please see the procedure note for details. Reading Location: [facility] CC: Dr. Aryan Bianchi MD; Dr. Edda Oconnor MD Agricultural Chemicals Inspector: Signed [facility] Operative Reporton Operative Report [facility] Medical Records Department [address] [place] [id number] Operative Report 07/20/24 1221 MR#: [id number] Acct: [id number] Name: CHEY JEFFERS Rep #: [id number] : 1960 63 From: Aryan Bianchi MD PCP: Dr. Edda Oconnor MD Status:[facility] Location: [place] [id number] Operative Report (Standard) Operative Information Date of Procedure: 07/20/24 Pre-Operative Diagnosis: Lumbosacral radiculopathy, lumbosacral degenerative disc disease, lumbosacral spinal stenosis Post-Operative Diagnosis: Lumbosacral radiculopathy, lumbosacral degenerative disc disease, lumbosacral spinal stenosis Surgery/Procedure Performed: Diagnostic/therapeutic caudal epidural steroid injection under fluoroscopic guidance manager channel: No Type of Anesthesia: Local RN Documented Start/Stop Times: Operation Date: 07/20/24 12:20 Case Time Into Pre-Op 07/20/24 10:57 Anesthesia Start 07/20/24 12:12 Into Room 07/20/24 12:12 Procedure Start 07/20/24 12:17 Procedure End 07/20/24 12:21 Procedure Start Time: : Procedure Stop Time: : Select all DRAINS/GRAFTS/IMPLANTS that apply: None Estimated Blood Loss: 0 Specimen collected: No Description of surgery: PROCEDURE PERFORMED: Diagnostic/therapeutic caudal epidural steroid injection under fluoroscopic guidance ANESTHESIA: Local BLOOD LOSS: Minimal. COMPLICATIONS: None. DESCRIPTION OF PROCEDURE: History and physical of today was reviewed. Risks and benefits of the procedure were explained. The patient understood and agreed to proceed. Informed consent was obtained. IV inserted per routine protocol. The patient was taken to the operating room and placed in the prone position with a pillow positioned underneath the abdomen. The lower back and tailbone area was prepped and draped in a sterile fashion using iodine x3. Under fluoroscopy guidance on a lateral view, the caudal space was identified. The skin and subcutaneous tissue was anesthetized with approximately 3 mL of 1% lidocaine using a 25-gauge regular needle. Under direct visualization with fluoroscopy, using a 22-gauge 3-1/2-inch spinal needle, the needle was advanced via the skin through the sacral hiatus. The tip of the needle was passed through the sacrococcygeal ligament and advanced to approximately S4 area. After negative aspiration of blood or CSF, a total of 3 mL of contrast was injected to confirm correct placement of the needle as well as cephalad spread. The spread was followed to approximately L5 area. After confirmation on AP as well as lateral view and repeated negative aspiration, a total of 15 mL of preservative-free 0.125% Marcaine with 80 mg of Depo-Medrol was injected easily. The needle was then removed intact. The patient experienced no sign or symptoms of intrathecal or intravascular injection. The patient experienced no paresthesia. The procedure was completed without any apparent difficulty or any complications. The patient appeared to tolerate it well. ASSESSMENT AND PLAN: This is a 63-year-old female with lumbosacral radiculopathy, lumbosacral degenerative disc disease, lumbosacral spinal stenosis status post diagnostic/therapeutic caudal epidural steroid injection, patient will continue her current medications, patient will follow-up in approximately 1 to 2 weeks for reevaluation. Surgical Findings: 0 Complications Complications: No Admit VTE Documentation VTE Present on Admission: No VTE Mechan Device Prophylaxis: None VTE Pharm Prophylaxis ordered?: No 07/20/24 1223 Cosigner Signature (if applicable): CC: Dr. Aryan Bianchi MD; Dr. Edda Oconnor MD Signed [facility] CNOVon 06-18-2024 CNOV Office Visit (PULMWS ) CHEY JEFFERS ([id number]) 1960 F Date Time Provider Department 06/18/24 11:45 AM MARY LOU NICHOLSON PULMWS During your visit today, we recorded the following information about you: Pulse Respiration Blood pressure Weight 105/minute 16/minute 122/84 64.9 kg Mary Lou Nicholson MD 06/18/2024 12:33 PM Signed . Respiratory [place] Note Patient name: Chey Jeffers PCP: Edda Oconnor MD CC: Follow-up asthma HPI: Chey Jeffers 63 year old female non-smoker with PMH significant for ankylosing spondylitis, depression, GERD, nasal polyps, recurrent sinusitis and asthma. Current therapy with Symbicort and albuterol. She was being considered for Dupixent therapy but refused to go back to allergy clinic and not interested in injections. She has had persistently elevated Al. Was on high dose Advair but couldn't afford and felt better on Symbicort so currently back to using Symbicort. Exhaled nitric oxide is better but still high. She has been more short of breath with ambulation. More recently requiring use of her albuterol due to wheezing. She has had some recent sinus congestion with drainage and sore throat. No significant cough or sputum production. She states that she may have had COVID back in April. DATA: ASTHMA CONTROL TEST Date: 06/18/2024 In the last 4 weeks, how much of the time did your asthma keep you from getting as much done at work or home that you wanted to do? None of the time (5) In the last 4 weeks, how often have you had shortness of breath? Not at all (5) In the last 4 weeks, how often did your asthma symptoms (wheezing, coughing, shortness of breath, chest tightness or pain) wake you up at night or earlier than usual? Not at all (5) In the last 4 weeks, how often have you used your rescue inhaler or nebulizer medication (such as Albuterol, Proventil, Ventolin, Maxair, Xoponex, or Primatene Mist)? 1 or 2 times per day (2) In the last 4 weeks, how would you rate your asthma control? Well controlled (4) Total: more than 20 SERVICE DATE: 06/18/2024 SERVICE TIME: 11:41 AM Oral Exhaled Nitric Oxide measurement: 52.0 (ppb) (A) Oral Exhaled Nitric Oxide measurement (Previous Encounters) Test Date Oral Exhaled Nitric Oxide (ppb) 03/24/2024 114.0 (A) 01/17/2024 88.0 (A) 12/03/2022 49.0 (A) 06/04/2022 95.0 (A) 08/17/2021 109.0 (A) 12/21/2019 216.0 (A) PAST MEDICAL HISTORY Diagnosis Date Abnormal ultrasound of breast 06/17/2013 Acute gastritis Ankylosing spondylitis (HCC) Anxiety and depression 06/12/2005 Asthma Bilateral renal cysts 03/11/2015 Calculus of kidney Dysthymic disorder Depression (non-psychotic) Enterocolitis due to Clostridium difficile 01/12/2015 Esophageal reflux HNP (herniated nucleus pulposus), lumbar 08/22/2011 Intrinsic asthma, unspecified 08/05/2008 Irritable bowel syndrome Irritable bowel FCI 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 01/16/2017 Menopause syndrome 01/19/2005 Myalgia and myositis, unspecified Nasal polyposis Polypectomy 03/2017 Dr. Mazariegos [facility]. Pure hypercholesterolemia Serrated adenoma of colon 07/29/2014 Symptomatic menopausal or female climacteric states Unspecified sinusitis (chronic) 06/21/2008 ALLERGIES Allergen Reactions Amoxicillin Rash Rash a few days into a course of treatment. Noted that had not reacted to test dose penicillin but developed rash after a few days on amoxicillin. Aspirin [Salicylate* Swelling, Shortness of Breath wheezing,swelling lips,rash,hives Codeine Hives Vicodin [Hydrocodon* Hives Cefdinir Itching Itchy scaly rash. (Patient may take penicillin and other penicillin type antibiotics. See allergy visit on 01/08/23) Demerol [Meperidine* Rash Tylenol [Acetaminop* Intolerance, Shortness of Breath asthma; makes it hard for her to breathe Ambien [Zolpidem] Intolerance Was sleepwalking (arranging books [...] tests are unreliable for predicting delayed reactions. Toradol [Ketorolac * Swelling Ultram [Tramadol Hc* Other: See Comments chest pains Vancomycin Other: See Comments Wheezin (more content not included)... Normal [facility] NITRIC OXIDE, EXHALEDon - Ofe Ruff RPF T 06/18/2024 11:41 AM RESPIRATORY THERAPY ORAL EXHALED NITRIC OXIDE SERVICE DATE: 06/18/2024 SERVICE TIME: 11:41 AM Oral Exhaled Nitric Oxide measurement: 52.0 (ppb) (A) Normal: Adult <25 ppb, pediatric (<12 years) <20 ppb High Normal / Increased: Adult 25-50 ppb, pediatric (<12 years) 20-35 ppb Moderately raised exhaled Nitric Oxide may indicate underlying inflammation, but note that: Cold and influenza can raise exhaled Nitric Oxide and some patients have higher baseline exhaled Nitric Oxide levels than others. High: Adult >50 ppb, pediatric (<12 years) >35 ppb Indicative of ongoing eosinophilic inflammation. Symptomatic patient likely to respond to steroids. Possible causes (if already on steroids): Poor compliance, recent allergen exposure, steroid dose inadequate, and steroid resistance. Note that not all patients with high exhaled nitric oxide levels display symptoms. Oral Exhaled Nitric Oxide measurement (Previous Encounters) Test Date Oral Exhaled Nitric Oxide (ppb) 06/18/2024 52.0 (A) 03/24/2024 114.0 (A) 01/17/2024 88.0 (A) 12/03/2022 49.0 (A) 06/04/2022 95.0 (A) 08/17/2021 109.0 (A) 12/21/2019 216.0 (A) NAME: LA Goddard PATIENT NAME: Chey Jeffers DATE: June 18, 2024 TIME: 11:41 AM [facility] HIP, UNI W/ Pelvis 2-3 Views on 06-08-2024 HIP, UNI W/ Pelvis 2-3 Views [facility] Imaging Services [address] [place] [id number] HIP, UNI W/ Pelvis 2-3 Views MR#: [id number] Acct: [id number] Name: CHEY JEFFERS Rep #: [id number] : 1960 F 63 From: Hi Guerin MD PCP: Dr. Edda Oconnor MD Status: DEP AMB Study: HIP, UNI W/ Pelvis 2-3 Views Date of Exam: 07/28 Exam# [id number] Ordering Dr: Aryan Bianchi MD PROCEDURE: AP PELVIS AND LEFT HIP REASON FOR EXAM: LEFT HIP PAIN. TECHNIQUE: AP PELVIS AND TWO VIEWS OF THE LEFT HIP COMPARISON: None. FINDINGS: No fracture. No suspicious bone lesion. Normal alignment. Soft tissues are unremarkable. RAD/HIP, UNI W/ Pelvis 2-3 Views IMPRESSION: Unremarkable AP pelvis. Normal left hip. Reading Location: [facility] CC: Dr. Aryan Bianchi MD; Dr. Edda Oconnor MD Agricultural Chemicals Inspector: Signed [facility] CNPNon 05-26-2024 CNPN Telephone (INTMWS) CHEY JEFFERS ([id number]) 1960 F Date Time Provider Department 05/26/24 EDDA OCONNOR INTMWS During your visit today, we recorded the following information about you: Ashanti Burt RN 05/26/2024 10:33 AM Signed Patient requesting her Pain Mgmt referral order, OV notes and demographic information be faxed to Dr. Bianchi's office in [place]. Faxed as requested to [phone]. Ashanti Burt RN Allergies As of Date: 05/26/2024 Noted Allergy Reaction AMOXICILLIN 01/17/2023 2 - Rash Comments: Rash a few days into a course of treatment. Noted that had not reacted to test dose penicillin but developed rash after a few days on amoxicillin. ASPIRIN (SALICYLATES) 05/24/2006 7 - Swelling 12 - Shortness of Breath Comments: wheezing,swelling lips,rash,hives CODEINE 02/15/2005 4 - Hives VICODIN (HYDROCODONE-ACETAMINOP HE*02/15/2005 4 - Hives CEFDINIR 12/21/2019 9 - Itching Comments: Itchy scaly rash. (Patient may take penicillin and other penicillin type antibiotics. See allergy visit on 01/08/23) DEMEROL (MEPERIDINE (PF)) 01/03/2006 2 - Rash TYLENOL (ACETAMINOPHEN) 01/02/2006 5 - Intolerance 12 - Shortness of Breath Comments: asthma; makes it hard for her to breathe AMBIEN (ZOLPIDEM) 04/07/2022 5 - Intolerance Comments: Was sleepwalking (arranging books but hull not recall) BACTRIM (SULFAMETHOXAZOLE-TRIME TH*07/25/2005 Comments: uncertain BUDESONIDE 06/26/2018 2 - Rash CELEXA (CITALOPRAM HYDROBROMIDE) 07/25/2005 8 - GI Upset DOXY (DOXYCYCLINE) 06/04/2005 Comments: rash and asthma DUREZOL (DIFLUPREDNATE) 03/04/2014 2 - Rash IBUPROFEN 07/25/2005 12 - Shortness of Breath LEXAPRO (ESCITALOPRAM OXALATE) 07/25/2005 8 - GI Upset LYRICA (PREGABALIN) 04/10/2011 1 - Mental Status Change Comments: dizzy MACROBID (NITROFURANTOIN MONOHYD/*06/26/2018 6 - Diarrhea MAPROTILINE 05/16/2009 9 - Itching MONUROL (FOSFOMYCIN) 05/18/2021 6 - Diarrhea MUCOMYST (ACETYLCYSTEINE) 10/30/2012 3 - Cough Comments: increase wheezing OXYCODONE 01/17/2011 12 - Shortness of Breath PENICILLINS 01/09/2005 4 - Hives Comments: Allergy skin tests to penicillin were negative. The patient took a test dose of amoxicillin and tolerated this without adverse reaction. The patient is at low risk for a severe, immediate, IgE-mediated reaction to penicillin, amoxicillin and other penicillin-type antibiotics. Skin tests are unreliable for predicting delayed reactions. TORADOL (KETOROLAC TROMETHAMINE) 04/06/2011 7 - Swelling ULTRAM (TRAMADOL HCL) 07/25/2005 14 - Other: See Comments Comments: chest pains VANCOMYCIN 01/21/2015 14 - Other: See Comments Comments: Wheezing after taking, legs swollen and tongue swelling and scratchy neck VENLAFAXINE 07/09/2011 8 - GI Upset ZITHROMAX (AZITHROMYCIN) 01/19/2005 9 - Itching MIRTAZAPINE 11/17/2013 14 - Other: See Comments Comments: Hand shakes. Date Reviewed: 05/11/2024 Reviewed by: Elisabet Woodward MA - Fully Assessed Reason for Visit: Patient Request [[id number]] Prescriptions as of 05/26/2024 - nystatin (MYCOSTATIN) 100,000 unit/mL suspension Take 5 mL by mouth four times daily. 1tsp swish in mouth for several minutes, then swallow (or expectorate) 4 times daily until gone. - clonazePAM (KLONOPIN) 0.5 mg tablet Take 1 tablet by mouth two times a day for 90 days. Patient should start on May 15, 2024. - budesonide-formoterol (SYMBICORT) 160-4.5 mcg/actuation inhaler Inhale 2 Puffs as instructed two times a day. - albuterol HFA (VENTOLIN HFA) 90 mcg/actuation inhaler Inhale 2 Puffs as instructed every 4 hours as needed for wheezing/shortness of breath. - montelukast (SINGULAIR) 10 mg tablet Take 1 tablet by mouth daily at bedtime. - lansoprazole (PREVACID) 30 mg capsule Take 1 capsule by mouth once daily. - simvastatin (ZOCOR) 40 mg tablet Take 1 tablet by mouth daily at bedtime. - sucralfate (CARAFATE) 1 gram tablet Take 1 tablet by mouth before meals and at bedtime. - Estradiol (ESTRACE) 0.5 mg tablet Take 1 tablet by mouth once daily. - imipramine HCl (TOFRANIL) 25 mg tablet Take 2 tablets by mouth daily at bedtime. - fexofenadine (NAN) 180 mg tablet Take 1 tablet by mouth once daily. - GEMTESA 75 mg tablet Take 1 tablet by mouth every afternoon. - Albuterol Sulfate 1.25 mg/3 mL nebulizer solution Use 1 Ampule via nebulizer every 6 hours as needed for wheezing/shortness of breath. - ipratropium (ATROVENT) 0.02 % nebulizer solution Use 2.5 mL via nebulizer four times daily as needed for wheezing/shortness of breath. - calcium carb/vit D2/minerals (CALTRATE PLUS ORAL) Take 1 capsule by mouth once daily. - fluticasone (FLONASE) 50 mcg/actuation nasal spray Use 1 Meraux in each nostril twice daily. VIA SPACER THEN RINSE AND GARGLE MOUTH WITH WATER. - LOPERAMIDE HCL (IMODIUM ORAL) Take by mouth as needed. - vit (more content not included)... Normal [facility] CNOVon 05-11-2024 CNOV Office Visit (UCWSTR ) CHEY JEFFERS ([id number]) 1960 F Date Time Provider Department 05/11/24 3:00 PM CHECO BELL [facility] During your visit today, we recorded the following information about you: Temperature Pulse Respiration Blood pressure 97.7 degrees 110/minute 16/minute 110/68 Weight 67 kg Checo Bell MD 05/11/2024 3:41 PM Signed Patient presents with: Nasal Congestion: drainage, cough, right ear pain and sore throat x 2 weeks HPI: Feeling sick since 04/27. Treated by her PCP for URI 05/04/24 for URI with medrol pack. The majority of her symptoms have improved. Her mother was diagnosed with COVID 05/04 and is in the hospital and being treated for heart failure. Positive symptoms: Cough, Sore throat, Nasal Congestion, Wheezing, decreased sense of smell Negative symptoms: Fever, OTC: finishing medrol MEDICATIONS: Current Outpatient Medications Medication Sig [START ON 05/15/2024] clonazePAM (KLONOPIN) 0.5 mg tablet Take 1 tablet by mouth two times a day for 90 days. Patient should start on May 15, 2024. budesonide-formoterol (SYMBICORT) 160-4.5 mcg/actuation inhaler Inhale 2 Puffs as instructed two times a day. albuterol HFA (VENTOLIN HFA) 90 mcg/actuation inhaler Inhale 2 Puffs as instructed every 4 hours as needed for wheezing/shortness of breath. montelukast (SINGULAIR) 10 mg tablet Take 1 tablet by mouth daily at bedtime. lansoprazole (PREVACID) 30 mg capsule Take 1 capsule by mouth once daily. simvastatin (ZOCOR) 40 mg tablet Take 1 tablet by mouth daily at bedtime. sucralfate (CARAFATE) 1 gram tablet Take 1 tablet by mouth before meals and at bedtime. Estradiol (ESTRACE) 0.5 mg tablet Take 1 tablet by mouth once daily. imipramine HCl (TOFRANIL) 25 mg tablet Take 2 tablets by mouth daily at bedtime. fexofenadine (NAN) 180 mg tablet Take 1 tablet by mouth once daily. GEMTESA 75 mg tablet Take 1 tablet by mouth every afternoon. Albuterol Sulfate 1.25 mg/3 mL nebulizer solution Use 1 Ampule via nebulizer every 6 hours as needed for wheezing/shortness of breath. ipratropium (ATROVENT) 0.02 % nebulizer solution Use 2.5 mL via nebulizer four times daily as needed for wheezing/shortness of breath. calcium carb/vit D2/minerals (CALTRATE PLUS ORAL) Take 1 capsule by mouth once daily. fluticasone (FLONASE) 50 mcg/actuation nasal spray Use 1 Meraux in each nostril twice daily. VIA SPACER THEN RINSE AND GARGLE MOUTH WITH WATER. LOPERAMIDE HCL (IMODIUM ORAL) Take by mouth as needed. vit e acetate/gly/dimeth/wate r(CETAPHIL MOISTURIZING LOTION) apply twice daily No current facility-administered medications for this visit. ALLERGIES: ALLERGIES Allergen Reactions Amoxicillin Rash Rash a few days into a course of treatment. Noted that had not reacted to test dose penicillin but developed rash after a few days on amoxicillin. Aspirin [Salicylate* Swelling, Shortness of Breath wheezing,swelling lips,rash,hives Codeine Hives Vicodin [Hydrocodon* Hives Cefdinir Itching Itchy scaly rash. (Patient may take penicillin and other penicillin type antibiotics. See allergy visit on 01/08/23) Demerol [Meperidine* Rash Tylenol [Acetaminop* Intolerance, Shortness of Breath asthma; makes it hard for her to breathe Ambien [Zolpidem] Intolerance Was sleepwalking (arranging books [...] tests are unreliable for predicting delayed reactions. Toradol [Ketorolac * Swelling Ultram [Tramadol Hc* Other: See Comments chest pains Vancomycin Other: See Comments Wheezing after taking, legs swollen and tongue swelling and scratchy neck Venlafaxine GI Upset Zithromax [Azithrom* Itching Mirtazapine Other: See Comments Hand shakes. VITALS: BP 110/68 Pulse 110 Temp 36.5 ?C (97.7 ?F) Resp 16 Wt 67 kg (147 lb 11.3 oz) SpO2 97% BMI 28.85 kg/m? PHYSICAL EXAM: GEN: Pleasant, in no acute distress. HEENT: PERRL, EOMI, conjunctiva clear Ears: canals clear. TMs without erythema, bulge, or effusion Sinuses: non-tender frontal sinus, non-tender maxillary sinuses Throat: moist mucous membranes, mild erythema, patches on soft palate and (more content not included)... Normal [facility] CNOVon 05-04-2024 CNOV Office Visit (INTMWS ) CHEY JEFFERS ([id number]) 1960 F Date Time Provider Department 05/04/24 8:40 AM EDDA OCONNOR INTMWS During your visit today, we recorded the following information about you: Temperature Pulse Respiration Blood pressure 97.1 degrees 112/minute 16/minute 122/78 Weight 65.2 kg Edda Oconnor MD 05/04/2024 10:03 AM Signed This note was created using Content360riter. Subjective Chey Jeffers is a 63 year old female. Patient presents with: F/U 6 months: Labs prior SUBJECTIVE: Chey Jeffers is a 63 year old year old lady here today for 6 month follow up appointment for review of medical conditions Chey Jeffers is a 63-year-old female with a history of asthma, COPD, and chronic back pain, presenting with acute URI symptoms and exacerbation of chronic back pain. Chey reports the onset of URI symptoms around 04/27, including severe cephalalgia described as a head in a vice, odynophagia, and right otalgia described as a sharp, stabbing pain. She also experiences nasal congestion, anosmia, and ageusia, with associated cough producing thick white sputum. She denies known exposure to COVID-19. She reports intermittent fevers and chills but has not been able to confirm due to a malfunctioning thermometer. She has a history of recurrent sinus infections and was treated with a steroid taper in March, which provided relief. She is currently using Symbicort, albuterol, and a nebulizer for her asthma and COPD but skipped Symbicort for 2 days due to severe pharyngitis. Chey also reports exacerbation of chronic back pain, which she describes as unbearable and affecting her sleep. She was evaluated at the hospital on 04/04 and expected a cortisone injection and MRI, but only an x-ray was performed. She reports severe pain radiating to her left buttock, groin, and leg, with associated numbness in her left foot. The pain worsens when lying down and affects her mobility. She has not received follow-up from the initial evaluation and is seeking further management. She denies constipation. She has a history of allergies to multiple antibiotics, including penicillin, which caused a severe rash and hives in January. She reports that Levaquin is the only antibiotic she can tolerate. She is also taking clonazepam, which is due for a refill on 05/15. She reports increased blood glucose levels, which she attributes to acute illness and stress-related dietary changes. She plans to reduce sodium intake after the New Year. . PAST MEDICAL HISTORY Diagnosis Date Abnormal ultrasound of breast 06/17/2013 Acute gastritis Ankylosing spondylitis (HCC) Anxiety and depression 06/12/2005 Asthma Bilateral renal cysts 03/11/2015 Calculus of kidney Dysthymic disorder Depression (non-psychotic) Enterocolitis due to Clostridium difficile 01/12/2015 Esophageal reflux HNP (herniated nucleus pulposus), lumbar 08/22/2011 Intrinsic asthma, unspecified 08/05/2008 Irritable bowel syndrome Irritable bowel [facility] 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 01/16/2017 Menopause syndrome 01/19/2005 Myalgia and myositis, unspecified Nasal polyposis Polypectomy 03/2017 Dr. Mazariegos [facility]. Pure hypercholesterolemia Serrated adenoma of colon 07/29/2014 Symptomatic menopausal or female climacteric states Unspecified sinusitis (chronic) 06/21/2008 Current Outpatient Medications Medication Sig budesonide-formoterol (SYMBICORT) 160-4.5 mcg/actuation inhaler Inhale 2 Puffs as instructed two times a day. clonazePAM (KLONOPIN) 0.5 mg tablet Take 1 tablet by mouth two times a day for 90 days. albuterol HFA (VENTOLIN HFA) 90 mcg/actuation inhaler Inhale 2 Puffs as instructed every 4 hours as needed for wheezing/shortness of breath. montelukast (SINGULAIR) 10 mg tablet Take 1 tablet by mouth daily at bedtime. lansoprazole (PREVACID) 30 mg capsule Take 1 capsule by mouth once daily. simvastatin (ZOCOR) 40 mg tablet Take 1 tablet by mouth daily at bedtime. sucralfate (CARAFATE) 1 gram tablet Take 1 tablet by mouth before meals and at bedtime. Estradiol (ESTRACE) 0.5 mg tablet Take 1 tablet by mouth once daily. imipramine HCl (TOFRANIL) 25 mg tablet Take 2 tablets by mouth daily at bedtime. fexofenadine (NAN) 180 mg tablet Take 1 tablet by mouth once daily. GEMTESA 75 mg tablet Take 1 tablet by mouth every afternoon. Albuterol Sulfate 1.25 mg/3 mL nebulizer solution Use 1 Ampule via nebulizer every 6 hours as needed for wheezing/shortness of breath. ipratropium (ATROVENT) 0.02 % nebulizer solution Use 2.5 mL via nebulizer four times daily as needed for wheezing/shortness of breath. calcium carb/vit D2/minerals (CALTRATE PLUS ORAL) Take 1 capsule by mouth once daily. fluticasone (FLONASE) 50 mcg/actuation nasal spray Use 1 Meraux in each nostril twice daily. VIA SPACER THEN RINSE AND GARGLE (more content not included)... Normal [facility] 25(OH)D3 [facility] [place] 2023 25-hydroxyvitamin D3 [Mass/Vol] 36.8 ng/mL Normal 31.0-80.0 [facility] Comment on above: Order Comment: Speci men Type: BLOOD SPECIMENOrdering Facility: [facility] Address: [address] [place] [address] Result Comment: Clas sification of 25 [place] Vitamin D status: Deficiency/Insufficiency: < or = 30 ng/ml. Sufficiency/Optimal Levels: 31-80 ng/mL Toxicity: > 100 ng/mL. Test performed by chemiluminescent immunoassay. Performed By: #### 1 989-3 ####[facility] LABIA [id number] [place] [address] [place] CBC panel Auto (Bld)on 04-25 Erythrocyte distribution width (RBC) [Ratio] 16.0 % High 11.5-15.0 [facility] Comment on above: Order Comment: Speci men Type: BLOOD SPECIMENOrdering Facility: [facility] Address: [address] [place] [address] Performed By: #### 5 8410-2 ####[facility] [id number] [place] [address] [place] Hematocrit (Bld) [Volume fraction] 44.6 % Normal 36.0-46.0 [facility] Comment on above: Order Comment: Speci men Type: BLOOD SPECIMENOrdering Facility: [facility] Address: [address] [place] [address] Performed By: #### 5 8410-2 ####[facility] LABIA [id number] [place] [address] [place] Hemoglobin (Bld) [Mass/Vol] 13.6 g/dL Normal 11.5-15.5 [facility] Comment on above: Order Comment: Speci men Type: BLOOD SPECIMENOrdering Facility: [facility] Address: [address] [place] [address] Performed By: #### 5 8410-2 ####[facility] LABIA [id number] [place] [address] [place] MCH (RBC) [Entitic mass] 26.9 pg Normal 26.0-34.0 [facility] Comment on above: Order Comment: Speci men Type: BLOOD SPECIMENOrdering Facility: [facility] Address: [address] [place] [address] Performed By: #### 5 8410-2 ####[facility] LABCLIA [id number] [place] [address] [place] MCHC (RBC) [Mass/Vol] 30.5 g/dL Normal 30.5-36.0 [facility] Comment on above: Order Comment: Speci men Type: BLOOD SPECIMENOrdering Facility: [facility] Address: [address] [place] [address] Performed By: #### 5 8410-2 ####[facility] LABCLIA [id number] [place] [address] [place] MCV (RBC) [Entitic vol] 88.1 fL Normal 80.0-100.0 [facility] Comment on above: Order Comment: Speci men Type: BLOOD SPECIMENOrdering Facility: [facility] Address: [address] [place] [address] Performed By: #### 5 8410-2 ####[facility] LABIA [id number] [place] [address] [place] Nucleated RBC (Bld) [#/Vol] 10*3/uL Normal <0.01 [facility] Comment on above: Order Comment: Speci men Type: BLOOD SPECIMENOrdering Facility: [facility] Address: [address] [place] [address] Performed By: #### 5 8410-2 ####[facility] LABCLIA [id number] [place] [address] [place] Platelet mean volume (Bld) [Entitic vol] 10.2 fL Normal 9.0-12.7 [facility] Comment on above: Order Comment: Speci men Type: BLOOD SPECIMENOrdering Facility: [facility] Address: [address] [place] [address] Performed By: #### 5 8410-2 ####[facility] LABCLIA [id number] [place] [address] [place] Platelets (Bld) [#/Vol] 322 10*3/uL Normal 150-400 [facility] Comment on above: Order Comment: Speci men Type: BLOOD SPECIMENOrdering Facility: [facility] Address: [address] [place] [address] Performed By: #### 5 8410-2 ####[facility] LABIA [id number] [place] [address] [place] RBC (Bld) [#/Vol] 5.06 10*6/uL Normal 3.90-5.20 [facility] Comment on above: Order Comment: Speci men Type: BLOOD SPECIMENOrdering Facility: [facility] Address: [address] [place] [address] Performed By: #### 5 8410-2 ####[facility] LABIA [id number] [place] [address] [place] WBC (Bld) [#/Vol] 10.64 10*3/uL Normal 3.70-11.00 [facility] Comment on above: Order Comment: Speci men Type: BLOOD SPECIMENOrdering Facility: [facility] Address: [address] [place] [address] Performed By: #### 5 8410-2 ####[facility] LABIA [id number] [place] [id number] [place] Comprehensive metabolic 2000 panelon 04-25-2024 Albumin [Mass/Vol] 4.0 g/dL Normal 3.9-4.9 [facility] Comment on above: Order Comment: Speci men Type: BLOOD SPECIMENOrdering Facility: [facility] Address: [address] [place] [address] Performed By: #### 2 4323-8, 09933-6, ####[facility] LABCLIA [id number] [place] [id number] [place] ALP [Catalytic activity/Vol] 73 U/L Normal 34-123 [facility] Comment on above: Order Comment: Speci men Type: BLOOD SPECIMENOrdering Facility: [facility] Address: [address] [place] [address] Performed By: #### 2 4323-8, 00742-7, ####[facility] LABCLIA [id number] [place] [address] [place] ALT [Catalytic activity/Vol] 15 U/L Normal 7-38 [facility] Comment on above: Order Comment: Speci men Type: BLOOD SPECIMENOrdering Facility: [facility] Address: [address] [place] [address] Performed By: #### 2 4323-8, 77095-5, ####[facility] LABCLIA [id number] [place] [address] [place] Anion gap [Moles/Vol] 12 mmol/L Normal 8-15 [facility] Comment on above: Order Comment: Speci men Type: BLOOD SPECIMENOrdering Facility: [facility] Address: [address] [place] [address] Performed By: #### 2 4323-8, 05664-1, ####[facility] LABCLIA [id number] [place] [id number] [place] AST [Catalytic activity/Vol] 18 U/L Normal 13-35 [facility] Comment on above: Order Comment: Speci men Type: BLOOD SPECIMENOrdering Facility: [facility] Address: [address] [place] [address] Performed By: #### 2 4323-8, 00079-3, ####[facility] LABCLIA [id number] [place] [id number] [place] Bilirubin [Mass/Vol] 0.4 mg/dL Normal 0.2-1.3 [facility] Comment on above: Order Comment: Speci men Type: BLOOD SPECIMENOrdering Facility: [facility] Address: [address] [place] [address] Performed By: #### 2 4323-8, 39547-6, ####[facility] LABCLIA [id number] [place] [id number] [place] Calcium [Mass/Vol] 9.4 mg/dL Normal 8.5-10.2 [facility] Comment on above: Order Comment: Speci men Type: BLOOD SPECIMENOrdering Facility: [facility] Address: [address] [place] [address] Performed By: #### 2 4323-8, 67575-6, ####[facility] LABCLIA [id number] [place] [id number] [place] Chloride [Moles/Vol] 104 mmol/L Normal 98-107 [facility] Comment on above: Order Comment: Speci men Type: BLOOD SPECIMENOrdering Facility: [facility] Address: [address] [place] [address] Performed By: #### 2 4323-8, 24381-5, ####[facility] LABCLIA [id number] [place] [id number] [place] CO2 [Moles/Vol] 26 mmol/L Normal 22-30 [facility] Comment on above: Order Comment: Speci men Type: BLOOD SPECIMENOrdering Facility: [facility] Address: [address] [place] [address] Performed By: #### 2 4323-8, 84041-7, ####[facility] LABCLIA [id number] [place] [id number] [place] Creatinine [Mass/Vol] 1.06 mg/dL High 0.58-0.96 [facility] Comment on above: Order Comment: Nohemi daniels Type: BLOOD SPECIMENOrdering Facility: [facility] Address: [address] [place] [address] Performed By: #### 2 4323-8, 31150-3, ####[facility] LABIA [id number] [address] [facility] Creatinine and Glomerular filtration rate.predicted panel (S/P/Bld) 59 mL/min/1.73m??? Low >=60 [facility] Comment on above: Order Comment: Nohemi daniels Type: BLOOD SPECIMENOrdering Facility: [facility] Address: [address] [place] [address] Result Comment: Laura mated Glomerular Filtration Rate (eGFR) is calculated using the 2020 CKD-EPI creatinine equation. This equation utilizes serum creatinine, sex, and age as parameters. The creatinine assay has traceable calibration to isotope dilution-mass spectrometry. Refer to KDIGO guidelines for clinical interpretation. In patients with unstable renal function, e.g. those with acute kidney injury, the eGFR may not accurately reflect actual GFR. Performed By: #### 2 4323-8, 83791-5, ####[facility] LABIA [id number] [place] [address] [place] Glucose [Mass/Vol] 103 mg/dL High 74-99 [facility] Comment on above: Order Comment: Nohemi daniels Type: BLOOD SPECIMENOrdering Facility: [facility] Address: [address] [place] [address] Result Comment: The [place] Diabetes Association (ADA) provides guidance for cutoff values for fasting glucose and random glucose. The ADA defines fasting as no caloric intake for at least 8 hours. Fasting plasma glucose results between 100 to 125 [...] Standards of Medical Care in Diabetes 2016, [place] Diabetes Association. Diabetes Care. 2016.39(Suppl 1). Performed By: #### 2 4323-8, 10403-2, ####[facility] LABCLIA [id number] [address] [address] [place] Potassium [Moles/Vol] 4.1 mmol/L Normal 3.7-5.1 [facility] Comment on above: Order Comment: Speci men Type: BLOOD SPECIMENOrdering Facility: [facility] Address: [address] [place] [address] Performed By: #### 2 4323-8, , ####[facility] LABCLIA [id number] [place] [id number] [place] Protein [Mass/Vol] 5.1 g/dL Low 6.3-8.0 [facility] Comment on above: Order Comment: Speci men Type: BLOOD SPECIMENOrdering Facility: [facility] Address: [address] [place] [address] Performed By: #### 2 4323-8, , ####[facility] LABCLIA [id number] [place] [id number] [place] Sodium [Moles/Vol] 142 mmol/L Normal 136-144 [facility] Comment on above: Order Comment: Speci men Type: BLOOD SPECIMENOrdering Facility: [facility] Address: [address] [place] [address] Performed By: #### 2 4323-8, , ####[facility] LABCLIA [id number] [address] [address] [place] Urea nitrogen [Mass/Vol] 16 mg/dL Normal 7-21 [facility] Comment on above: Order Comment: Nohemi daniels Type: BLOOD SPECIMENOrdering Facility: [facility] Address: [address] [place] [address] Performed By: #### 2 4323-8, 20556-5, 99849-9 ####[facility] LABCLIA [id number] [place] [address] [place] HbA1c (Bld)on 04-25-2024 Average glucose Estimated from glycated hemoglobin (Bld) [Mass/Vol] 123 mg/dL Normal [facility] Comment on above: Order Comment: Nohemi daniels Type: BLOOD SPECIMENOrdering Facility: [facility] Address: [address] [place] [address] Result Comment: eAG: (Estimated average glucose) is a calculated value from HgbA1c and is brand representative of the average blood glucose level in the last 2-3 month period. Performed By: #### 5 5454-3 ####[facility] LABCLIA [id number] [place] [address] [place] HbA1c (Bld) [Mass fraction] 5.9 % High 4.3-5.6 [facility] Comment on above: Order Comment: Nohemi daniels Type: BLOOD SPECIMENOrdering Facility: [facility] Address: [address] [place] [address] Result Comment: Amer [place] Diabetes Association guidelines indicate that patients with HgbA1c in the range 5.7-6.4% are at increased risk for development of diabetes, and intervention by lifestyle modification may be beneficial. HgbA1c greater or equal to 6.5% is considered diagnostic of diabetes. Performed By: #### 5 5454-3 ####[facility] LABIA [id number] [place] [address] [place] Lipid 1996 panelon 4 Cholesterol [Mass/Vol] 144 mg/dL Normal <200 [facility] Comment on above: Order Comment: Nohemi daniels Type: BLOOD SPECIMENOrdering Facility: [facility] Address: [address] [place] [address] Result Comment: <200 mg/dL, Desirable 200-239 mg/dL, Borderline high >239 mg/dL, High Performed By: #### 2 4323-8, 43806-8, ####[facility] LABCLIA [id number] [address] [address] [place] Cholesterol in HDL [Mass/Vol] 57 mg/dL Normal >39 [facility] Comment on above: Order Comment: Speci men Type: BLOOD SPECIMENOrdering Facility: [facility] Address: [address] [place] [address] Result Comment: 40-5 9 mg/dL, Acceptable >59 mg/dL, High: Negative risk factor for coronary heart disease <40 mg/dL, Low: Positive risk factor for coronary heart disease Performed By: #### 2 4323-8, 58502-8, ####[facility] LABCLIA [id number] [address] [place] Cholesterol in LDL [Mass/Vol] 65 mg/dL Normal <100 [facility] Comment on above: Order Comment: Speci men Type: BLOOD SPECIMENOrdering Facility: [facility] Address: [address] [place] [address] Result Comment: <100 mg/dL, Optimal 100-129 mg/dL, Near optimal/above optimal 130-159 mg/dL, Borderline high 160-189 mg/dL, High >189 mg/dL, Very high Secondary prevention optimal LDL Cholesterol levels are recommended to be < 70 mg/dL Performed By: #### 2 4323-8, 44205-5, ####[facility] LABCLIA [id number] [place] [address] [place] Cholesterol in LDL/Cholesterol in HDL [Mass ratio] 1.14 {ratio} Normal <2.54 [facility] Comment on above: Order Comment: Speci men Type: BLOOD SPECIMENOrdering Facility: [facility] Address: [address] [place] [address] Result Comment: Refe rence: 1. National Cholesterol Education Program ATP III Guideline At-A-Glance Quick Desk Reference: National Heart, Lung, and Blood [place]. National Institutes of Health. 2001: NIH Publication No. 01-3305. 2. An International Atherosclerosis Society position paper: global recommendations for the management of dyslipidemia: executive summary, Atherosclerosis. 2014: 232(2):410-413. Performed By: #### 2 4323-8, 52359-4, ####[facility] LABCLIA [id number] [place] [address] [place] Cholesterol in VLDL [Mass/Vol] 22 mg/dL Normal <30 [facility] Comment on above: Order Comment: Nohemi daniels Type: BLOOD SPECIMENOrdering Facility: [facility] Address: [address] [place] [address] Performed By: #### 2 4323-8, 83622-8, ####[facility] LABCLIA [id number] [place] [address] [place] Cholesterol non HDL [Mass/Vol] 87 mg/dL Normal <130 [facility] Comment on above: Order Comment: Nohemi daniels Type: BLOOD SPECIMENOrdering Facility: [facility] Address: [address] [place] [address] Result Comment: <130 mg/dL, Optimal 130-159 mg/dL, Near optimal/above optimal 160-189 mg/dL, Borderline high 190-219 mg/dL, High >219 mg/dL, Very high Secondary prevention optimal non HDL Cholesterol levels are recommended to be <100 mg/dL Performed By: #### 2 4323-8, 09671-0, ####[facility] LABIA [id number] [place] [address] [place] Cholesterol.total/Cho lesterol in HDL [Mass ratio] 2.53 {ratio} Normal <5.10 [facility] Comment on above: Order Comment: Maari jeremiah Type: BLOOD SPECIMENOrdering Facility: [facility] Address: [address] [place] [address] Performed By: #### 2 4323-8, 97950-4, ####[facility] LABCLIA [id number] [address] [address] [place] FASTING TIME 15 hrs Normal [facility] Comment on above: Order Comment: Speci men Type: BLOOD SPECIMENOrdering Facility: [facility] Address: [address] [place] [address] Performed By: #### 2 4323-8, 43439-1, ####[facility] LABCLIA [id number] [address] [address] [place] Triglyceride [Mass/Vol] 110 mg/dL Normal <150 [facility] Comment on above: Order Comment: Speci men Type: BLOOD SPECIMENOrdering Facility: [facility] Address: [address] [place] [address] Result Comment: <150 mg/dL, Normal 150-199 mg/dL, Borderline high 200-499 mg/dL, High >499 mg/dL, Very high Performed By: #### 2 4323-8, 75207-0, ####[facility] LABCLIA [id number] [place] [address] [place] Magnesium SerPl-mCncon 04-25 Magnesium [Mass/Vol] 2.0 mg/dL Normal 1.7-2.3 [facility] Comment on above: Order Comment: Speci men Type: BLOOD SPECIMENOrdering Facility: [facility] Address: [address] [place] [address] Performed By: #### 2 4323-8, 21356-4, ####[facility] LABCLIA [id number] [address] [address] [place] L/S Spine Min 4 Viewson 12- L/S Spine Min 4 Views [facility] [address] [place] [address] L/S Spine Min 4 Views MR#: [id number] Acct: [id number] Name: CHEY JEFFERS Rep #: [id number] : 1960 F 63 From: Vale Vargas MD PCP: Dr. Edda Oconnor MD Status: REG CLI Study: L/S Spine Min 4 Views Date of Exam: 04/23/24 Exam# [id number] Ordering Dr: Jasmin Glass [id number] EXAM: XR LUMBOSACRAL SPINE, 4 OR 5 VIEWS CLINICAL INDICATION: pain -- please do upright AP, LAT, flex/ext TECHNIQUE: Frontal, lateral and bilateral oblique views of the lumbar spine. COMPARISON: No relevant prior studies available. FINDINGS: VERTEBRAE: The usual lordotic curvature is well-maintained on the neutral lateral view. It is minimally straightened on the flexion view, minimally increased lordotic curvature on the extension view. Mobility appears limited on both views. Mild disc space narrowing at L4-5. Minimal anterior spondylosis at multiple levels and slight opposing endplates sclerosis at multiple levels. Minimal scoliosis on frontal view. DISC SPACES: No acute findings. Disc spaces are maintained. GASTROINTESTINAL TRACT: Postoperative changes of the right mid abdomen, likely involving bowel. Mild stool in the hepatic flexure and transverse colon, mild stool in the rectosigmoid. No dilated small bowel gas. OTHER: Cholecystectomy clips. RAD/L/S Spine Min 4 Views IMPRESSION: The usual lordotic curvature appears well-maintained on the neutral view but there is very limited motion on flexion and extension. Cholecystectomy and postoperative bowel changes. Electronically Signed: Vale Vargas MD at 2:33 EST , CC: CHARMAINE Alfredo; Dr. Edda Oconnor MD [employer]: Signed Normal [facility] Emergency Department Summary on 04-04-2024 Emergency Department Summary [facility] Medical Records Department [address] [place] [id number] Emergency Department Summary 04/04/24 MR#: [id number] Acct: [id number] Name: CHEY JEFFERS Rep #: [id number] : 1960 63 From: Nory Coker DO PCP: Dr. Edda Oconnor MD Status:DEP ER Location: ED HPI History of Present Illness Chief Complaint: Back Detail of Chief Complaint: Back pain Informant: patient Narrative Narrative: Patient presents with back pain x 3 months. She describes low back pain radiating to her left groin and down her left leg at times. She bent over to pick some cards up off the floor 3 days ago and had electric-like shooting pains down her left leg and her foot went numb. She denies weakness to the extremities. She does complain of worsening pain with certain movements. She has history of an MRI several years ago that showed degenerative disc disease as well as spinal stenosis and herniated disc. She had been seeing pain management. She was recently referred to a new pain management doctor but has not seen a primary care physician. She states that she cannot take anything for pain because she is allergic to everything. She has had Medrol Dosepak in the past. She denies loss of bowel or bladder function. Denies trauma or direct injury otherwise. [facility] Medical History (Updated 04/04/24 @ 09:[address] Nory Coker DO) History of stress test History of deviated nasal septum Wears dentures History of steroid therapy Arthritis Bladder disease High cholesterol History of IBS Non-smoker Shortness of breath on exertion COPD (chronic obstructive pulmonary disease) Asthma Migraine Degenerative disc disease Fibromyalgia Depression Anxiety Home Medications ???Medication ???Instructions ???Recorded ???Last Taken ???Type albuterol sulfate 90 mcg/actuation 1 - 2 puff IH Q4H PRN PRN Asthma 07/09/14 04/07/18 08:00 History aerosol inhaler (Ventolin HFA) clonazepam 0.5 mg tablet 0.5 mg PO BID ANXIETY 07/09/14 02/13/22 07:00 History estradiol 0.5 mg tablet (Estrace) 0.5 mg PO QHS HORMONE 07/09/14 08/07/16 History fluticasone propionate 50 1 spray DAILY PRN PRN Allergies 03/06/15 Unknown History mcg/actuation nasal spray,suspension lansoprazole 30 mg capsule,delayed 30 mg PO DAILY , 07/09/14 02/13/22 07:00 History release (Prevacid) simvastatin 40 mg tablet 40 mg PO QHS CHOLESTEROL 07/09/14 08/07/16 History loperamide 2 mg capsule 2 mg PO Q6H PRN PRN Diarrhea ##20 07/22/14 08/09/16 Rx fexofenadine 180 mg tablet 180 mg PO QHS . 03/26/17 Unknown History (Nan Allergy) imipramine HCl 50 mg tablet 50 mg PO QHS depression 01/07/18 Unknown History budesonide-formoterol HFA 160 2 puff inhalation BID 04/04/18 04/07/18 08:00 History mcg-4.5 mcg/actuation aerosol inhaler (Symbicort) calcium 200 mg (as 1 ea PO DAILY 04/04/18 Unknown History citrate)-vitamin D3 6.25 mcg (250 unit) tablet (Citracal-D3 Petites) ipratropium 0.5 mg-albuterol 3 mg 3 ml inhalation Q4H PRN BREATHING 04/04/18 Unknown History (2.5 mg base)/3 mL nebulization soln sucralfate 1 gram tablet 1 g PO BID 04/04/18 Unknown History montelukast 10 mg tablet 10 mg PO DAILY 02/06/22 Unknown History (Singulair) diazepam 5 mg tablet (Valium) 5 mg PO TID PRN muscle spasm 3 04/04/24 Unknown Rx days #10 tabs methylprednisolone 4 mg tablets in See Rx Instructions PO .COMPLEX 04/04/24 Unknown Rx a dose pack (Medrol (Dylon)) #21 tabs Allergy/AdvReac Type Severity Reaction Status Date / Time aspirin Allergy Severe Anaphylaxis Verified 04/04/24 09:41 acetaminophen (From Vicodin) Allergy MAKES MY Verified 04/04/24 09:41 CHEST HURT azithromycin (From Zithromax) Allergy Itching Verified 04/04/24 09:41 budesonide Allergy Rash Verified 04/04/24 09:41 ciprofloxacin (From Cipro) Allergy Hives Verified 04/04/24 09:41 codeine Allergy Hives Verified 04/04/24 09:41 difluprednate (From Durezol) Allergy Rash Verified 04/04/24 09:41 doxycycline Allergy Rash Verified 04/04/24 09:41 hydrocodone bitartrate (From Allergy Hives Verified 04/04/24 09:41 Vicodin) ibuprofen (From Motrin) Allergy Shortness Verified 04/04/24 09:41 of breath ketorolac tromethamine (From Allergy Swelling Verified 04/04/24 09:41 Toradol) maprotiline Allergy Itching Verified 04/04/24 09:41 meperidine HCl (From Demerol) Allergy Rash Verified 04/04/24 09:41 mirtazapine Allergy Other Verified 04/04/24 09:41 Penicillins Allergy Rash Verified 04/04/24 09:41 prednisone Allergy Itching Verified 04/04/24 09:41 tramadol HCl (From Ultram) Allergy Chest Verified 04/04/24 09:41 tightness vancomycin Allergy Swelling Verified 04/04/24 09:41 acetylcysteine (From AdvReac ITCHING, Verified 04/04/24 09:41 Mucomyst) REDNESS citalopram hydrobromide AdvReac Nausea/ (more content not included)... Normal [facility] CNOVon 03-24-20[address] [facility] Office Visit (PULMWS ) CHEY JEFFERS ([id number]) 1960 F Date Time Provider Department 03/24/24 10:00 AM ANA CRISTINA URBINA PULMWS During your visit today, we recorded the following information about you: Pulse Respiration Blood pressure 92/minute 18/minute 130/86 Ana Cristina Urbina, STEPHANIE.GEOSCIENCE LABORATORY TECHNICIAN 03/24/2024 11:21 AM Signed Pulmonary Medicine Patients name: Chey Jeffers PCP: Edda Oconnor MD CC: Asthma follow-up HPI: Chey Jeffers is a 63 year old female non-smoker with PMH significant for ankylosing spondylitis, depression, GERD, nasal polyposis, multiple allergies, recurrent sinusitis and asthma. She was previously seen by allergy for consideration for Dupixent but will not go back. Current therapy consists of high dose Advair HFA and PRN Albuterol. NELSY 01/16 her FENO was elevated at 88ppb. Stepped up inhaler therapy to high dose Advair from Symbicort and presents today for follow-up. Since her NELSY, she reports not feeling as good control of Asthma while on Advair. Feels more wheezing and burning in her chest after using. [place] better with Symbicort. Reports there were few occasions where she did not use Advair twice a day. Additionally, she has reportedly had multiple sinus infections. Seen by her PCP office on 03/17 for acute symptoms and treated with Levaquin and steroid taper for sinusitis. She was previously seen by ENT by Marie BABB and has had multiple surgerys to remove polyps. Was told she has nasal polyps on the left side. Has had trouble getting back in to see ENT but has appointment scheduled this Saturday. Current symptoms include cough with occasional green sputum. No hemoptysis. Has wheezing on occasion. No dyspnea at rest. Exertional dyspnea with stairs or in the cold air. Had body aches prior to starting treatment but none currently. Albuterol use is a few times per week. 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 ASTHMA CONTROL TEST Date: 03/24/2024 In the last 4 weeks, how much of the time did your asthma keep you from getting as much done at work or home that you wanted to do? Most of the time (2) In the last 4 weeks, how often have you had shortness of breath? More than once per day (1) In the last 4 weeks, how often did your asthma symptoms (wheezing, coughing, shortness of breath, chest tightness or pain) wake you up at night or earlier than usual? 2 or 3 nights per week (2) In the last 4 weeks, how often have you used your rescue inhaler or nebulizer medication (such as Albuterol, Proventil, Ventolin, Maxair, Xoponex, or Primatene Mist)? A few times per week (3) In the last 4 weeks, how would you rate your asthma control? 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 Mazariegos [facility]. Pure hypercholesterolemia Serrated adenoma of colon 07/29/2014 Symptomatic menopausal or female climacteric states Unspecified sinusitis (chronic) 06/21/2008 Allergies: Amoxicillin Rash Comment:Rash a few days into a course of treatment. Noted that had not reacted to test dose penicillin but developed rash after a few days on amoxicillin. Aspirin [Salicylate* Swelling, Shortness of Breath Comment:wheezing,swelli ng lips,rash,hives Codeine Hives Vicodin [Hydrocodon* Hives Cefdinir Itching Comment:Itchy scaly rash. (Patient may take penicillin and other penicillin type antibiotics. See allergy visit on 01/08/23) Demerol [Meperidine* Rash Tylenol [Acetaminop* Intolerance, Shortness of Breath Comment:asthma; makes it hard for her to breathe Ambien [Zolpidem] Intolerance Comment:Was sleepwalking (arranging books but hull not recall) Bactrim [Sulfametho* Comment:uncertain Budesonide Rash Celexa [Citalopram * GI Upset Doxy [Doxycycline] Comment:rash and asthma Durezol [Diflupredn* Rash Ibuprofen Shortness of Breath Lexapro [Escitalopr* GI Upset Lyrica [Pregabalin] Mental Status Change Comment:dizzy Macrobid [Nitrofura* Diarrhea Maprotiline Itching Monurol [Fosfomycin] Diarrhea Mucomyst [Acetylcys* Cough Comment:increase wheezing Oxycodone Shortness of Breath Penicillins Hives Comment:Allergy skin tests to penicillin were negat (more content not included)... Normal [facility] NITRIC OXIDE, EXHALEDon 03-06 Ofe Ruff RPF T 03/24/2024 11:20 AM RESPIRATORY THERAPY ORAL EXHALED NITRIC OXIDE SERVICE DATE: 03/24/2024 SERVICE TIME: 9:45 AM Oral Exhaled Nitric Oxide measurement: 114.0 (ppb) (A) Normal: Adult <25 ppb, pediatric (<12 years) <20 ppb High Normal / Increased: Adult 25-50 ppb, pediatric (<12 years) 20-35 ppb Moderately raised exhaled Nitric Oxide may indicate underlying inflammation, but note that: Cold and influenza can raise exhaled Nitric Oxide and some patients have higher baseline exhaled Nitric Oxide levels than others. High: Adult >50 ppb, pediatric (<12 years) >35 ppb Indicative of ongoing eosinophilic inflammation. Symptomatic patient likely to respond to steroids. Possible causes (if already on steroids): Poor compliance, recent allergen exposure, steroid dose inadequate, and steroid resistance. Note that not all patients with high exhaled nitric oxide levels display symptoms. Oral Exhaled Nitric Oxide measurement (Previous Encounters) Test Date Oral Exhaled Nitric Oxide (ppb) 03/24/2024 114.0 (A) 01/17/2024 88.0 (A) 12/03/2022 49.0 (A) 06/04/2022 95.0 (A) 08/17/2021 109.0 (A) 12/21/2019 216.0 (A) NAME: LA Goddard PATIENT NAME: Chey Jeffers DATE: March 24, 2024 TIME: 9:45 AM [facility] CNOVon 03-17-2024 CNOV Office Visit (INTMWS ) CHEY JEFFERS ([id number]) 1960 F Date Time Provider Department 03/17/24 9:40 AM NUNO BENSON INTDarlynWS During your visit today, we recorded the following information about you: Nuno Benson APRN.GEOSCIENCE LABORATORY TECHNICIAN 03/17/2024 10:36 AM Signed SUBJECTIVE Chey Jeffers is a 63 year old female here today for acute concern. Chief Complaint Patient presents with: Sinus Problem HPI Chey Jeffers is a 63 year old female. She is an established patient of Edda Oconnor MD. Here today acutely for concerns of a sinus infection. Prior history of sinus issues and sees ENT but cannot get in with them soon. For a few weeks she has had sinus congestion, mostly left sided. Discolored nasal drainage, fatigue, body aches. Has tried OTCs and not helpful. Not improving. Her medications were reviewed today and her list is now up to date. Medications Current Outpatient Medications Medication Sig predniSONE (DELTASONE) 20 mg tablet 1 tablet three times a day for 3 days, then 2 times a day for 3 days, the one daily for 3 days. levoFLOXacin (LEVAQUIN) 500 mg tablet Take 1 tablet by mouth once daily for 10 days. clonazePAM (KLONOPIN) 0.5 mg tablet Take 1 tablet by mouth two times a day for 90 days. albuterol HFA (VENTOLIN HFA) 90 mcg/actuation inhaler Inhale 2 Puffs as instructed every 4 hours as needed for wheezing/shortness of breath. fluticasone-salmeterol HFA (ADVAIR HFA) 230-21 mcg/actuation inhaler Inhale 2 Puffs as instructed two times a day. montelukast (SINGULAIR) 10 mg tablet Take 1 tablet by mouth daily at bedtime. budesonide-formoterol (SYMBICORT) 160-4.5 mcg/actuation inhaler Inhale 2 Puffs as instructed twice daily. lansoprazole (PREVACID) 30 mg capsule Take 1 capsule by mouth once daily. simvastatin (ZOCOR) 40 mg tablet Take 1 tablet by mouth daily at bedtime. sucralfate (CARAFATE) 1 gram tablet Take 1 tablet by mouth before meals and at bedtime. Estradiol (ESTRACE) 0.5 mg tablet Take 1 tablet by mouth once daily. imipramine HCl (TOFRANIL) 25 mg tablet Take 2 tablets by mouth daily at bedtime. fexofenadine (NAN) 180 mg tablet Take 1 tablet by mouth once daily. Conj Estrog-Medroxyprogest Debra 0.3-1.5 mg per tablet Take 1 tablet by mouth once daily. GEMTESA 75 mg tablet Take 1 tablet by mouth every afternoon. Albuterol Sulfate 1.25 mg/3 mL nebulizer solution Use 1 Ampule via nebulizer every 6 hours as needed for wheezing/shortness of breath. ipratropium (ATROVENT) 0.02 % nebulizer solution Use 2.5 mL via nebulizer four times daily as needed for wheezing/shortness of breath. calcium carb/vit D2/minerals (CALTRATE PLUS ORAL) Take 1 capsule by mouth once daily. fluticasone (FLONASE) 50 mcg/actuation nasal spray Use 1 [place] in each nostril twice daily. VIA SPACER THEN RINSE AND GARGLE MOUTH WITH WATER. LOPERAMIDE HCL (IMODIUM ORAL) Take by mouth as needed. vit e acetate/gly/dimeth/wate r(CETAPHIL MOISTURIZING LOTION) apply twice daily No current facility-administered medications for this visit. ALLERGIES Allergen Reactions Amoxicillin Rash Rash a few days into a course of treatment. Noted that had not reacted to test dose penicillin but developed rash after a few days on amoxicillin. Aspirin [Salicylate* Swelling, Shortness of Breath wheezing,swelling lips,rash,hives Codeine Hives Vicodin [Hydrocodon* Hives Cefdinir Itching Itchy scaly rash. (Patient may take penicillin and other penicillin type antibiotics. See allergy visit on 01/08/23) Demerol [Meperidine* Rash Tylenol [Acetaminop* Intolerance, Shortness of Breath asthma; makes it hard for her to breathe Ambien [Zolpidem] Intolerance Was sleepwalking (arranging books [...] tests are unreliable for predicting delayed reactions. Toradol [Ketorolac * Swelling Ultram [Tramadol Hc* Other: See Comments chest pains Vancomycin Other: See Comments Wheezing after taking, legs swollen and tongue swelling and scratchy neck Venlafaxine GI Upset Zithromax [Azithrom* Itching Mirtazapine Other: See Comments Hand shakes. ACTIVE PROBLEM LIST Cervical Spondylosis Without Myelopathy (more content not included)... Normal [facility] NITRIC OXIDE, EXHALEDon 01-04 Ofe Ruff RPF T 01/17/2024 11:28 AM RESPIRATORY THERAPY ORAL EXHALED NITRIC OXIDE SERVICE DATE: 01/17/2024 SERVICE TIME: 11:28 AM Oral Exhaled Nitric Oxide measurement: 88.0 (ppb) (A) Normal: Adult <25 ppb, pediatric (<12 years) <20 ppb High Normal / Increased: Adult 25-50 ppb, pediatric (<12 years) 20-35 ppb Moderately raised exhaled Nitric Oxide may indicate underlying inflammation, but note that: Cold and influenza can raise exhaled Nitric Oxide and some patients have higher baseline exhaled Nitric Oxide levels than others. High: Adult >50 ppb, pediatric (<12 years) >35 ppb Indicative of ongoing eosinophilic inflammation. Symptomatic patient likely to respond to steroids. Possible causes (if already on steroids): Poor compliance, recent allergen exposure, steroid dose inadequate, and steroid resistance. Note that not all patients with high exhaled nitric oxide levels display symptoms. Oral Exhaled Nitric Oxide measurement (Previous Encounters) Test Date Oral Exhaled Nitric Oxide (ppb) 01/17/2024 88.0 (A) 12/03/2022 49.0 (A) 06/04/2022 95.0 (A) 08/17/2021 109.0 (A) 12/21/2019 216.0 (A) NAME: LA Goddard PATIENT NAME: Chey Jeffers DATE: January 17, 2024 TIME: 11:28 AM [facility] XR Lumbar spine 3 Viewson IMPRESSION: DEGENERATIVE CHANGE AND ALIGNMENT ABNORMALITIES DESCRIBED ABOVE. NO SIGNIFICANT CHANGE FROM PRIOR Agricultural Chemicals Inspector: PSCB Transcribe Date/Time: Nov 05 2023 4:14P Dictated by : TERENCE HARRIS MD This examination was interpreted and the report reviewed and electronically signed by: TERENCE HARRIS MD on Nov 05 2023 4:15PM [facility] DIVISION OF RADIOLOGY * * *Final Report* * * DATE OF EXAM: Nov 01 2023 9:44AM WOX [id number] - XR LUMBAR 3V AP/LAT/L5-S1 / PROCEDURE REASON: Lumbar pain * * * * Physician Interpretation * * * * Examination: XR LUMBAR 3V AP/LAT/L5-S1 History: Lumbar pain Technique: XR LUMBAR 3V AP/LAT/L5-S1 Comparison: 07/14/2020 RESULT: 5 nonrib-bearing lumbar type vertebrae. For numbering purposes, L4-5 is at the level of the iliac crest. Mild grade 1 spondylolisthesis of L4 on L5. Degenerative change involving the posterior elements from L3 through S1. Mild spondylosis and osteophytosis throughout. Moderate disc space narrowing at L5-S1. DIVISION OF RADIOLOGY Provider, Shawna Falcon [facility] - 11/05/2023 * * *Final Report* * * DATE OF EXAM: Nov 01 2023 9:44AM WOX [id number] - XR LUMBAR 3V AP/LAT/L5-S1 / PROCEDURE REASON: Lumbar pain * * * * Physician Interpretation * * * * Examination: XR LUMBAR 3V AP/LAT/L5-S1 History: Lumbar pain Technique: XR LUMBAR 3V AP/LAT/L5-S1 Comparison: 07/14/2020 RESULT: 5 nonrib-bearing lumbar type vertebrae. For numbering purposes, L4-5 is at the level of the iliac crest. Mild grade 1 spondylolisthesis of L4 on L5. Degenerative change involving the posterior elements from L3 through S1. Mild spondylosis and osteophytosis throughout. Moderate disc space narrowing at L5-S1. IMPRESSION IMPRESSION: DEGENERATIVE CHANGE AND ALIGNMENT ABNORMALITIES DESCRIBED ABOVE. NO SIGNIFICANT CHANGE FROM PRIOR Agricultural Chemicals Inspector: SHANON Transcribe Date/Time: Nov 05 2023 4:14P Dictated by : TERENCE HARRIS MD This examination was interpreted and the report reviewed and electronically signed by: TERENCE HARRIS MD on Nov 05 2023 4:15PM [facility] XR Lumbar spine 3 ViewsOrder ed By: Ccf Provider on 11-05-2023 [facility] XR Lumbar spine 3 Viewson Radiology Study observation (narrative) [facility] Gram stain for investigation of transfusion reactionOrdered By: Samuel Mazariegos on 06-28-2023 Microscopic observation Gram stain Nom (Unsp spec) [facility] No Panel InformationOrdered By: Samuel Mazariegos on 06-28-2023 Nasopharyngeal Culture Streptococcus group G [facility] CBC panel Auto (Bld)on 05-11 Erythrocyte distribution width (RBC) [Ratio] 14.6 % 11.5 - 15.0 % [facility] Hematocrit (Bld) [Volume fraction] 47.5 % High 36.0 - 46.0 % [facility] Hemoglobin (Bld) [Mass/Vol] 14.3 g/dL 11.5 - 15.5 g/dL [facility] MCH (RBC) [Entitic mass] 27.2 pg 26.0 - 34.0 pg [facility] MCHC (RBC) [Mass/Vol] 30.1 g/dL Low 30.5 - 36.0 g/dL [facility] MCV (RBC) [Entitic vol] 90.3 fL 80.0 - 100.0 fL [facility] Nucleated RBC (Bld) [#/Vol] <0.01 k/uL [facility] Platelet mean volume (Bld) [Entitic vol] 10.1 fL 9.0 - 12.7 fL [facility] Platelets (Bld) [#/Vol] 371 10*3/uL 150 - 400 k/uL [facility] RBC (Bld) [#/Vol] 5.26 10*6/uL High 3.90 - 5.2 0 m/uL [facility] WBC (Bld) [#/Vol] 13.50 10*3/uL High 3.70 - 11 .00 k/uL [facility] Comprehensive metabolic 2000 panelon 05-11-2023 Albumin [Mass/Vol] 4.0 g/dL 3.9 - 4.9 g/dL [facility] ALP [Catalytic activity/Vol] 74 U/L 34 - 123 U/L [facility] ALT [Catalytic activity/Vol] 10 U/L 7 - 38 U/L [facility] Anion gap [Moles/Vol] 10 mmol/L 9 - 18 mmol/L [facility] AST [Catalytic activity/Vol] 17 U/L 13 - 35 U/L [facility] Bilirubin [Mass/Vol] 0.3 mg/dL 0.2 - 1 .3 mg/dL [facility] Calcium [Mass/Vol] 9.6 mg/dL 8.5 - 10. 2 mg/dL [facility] Chloride [Moles/Vol] 102 mmol/L 97 - 10 5 mmol/L [facility] CO2 [Moles/Vol] 27 mmol/L 22 - 30 mmol/L [facility] Creatinine [Mass/Vol] 1.07 mg/dL High 0.58 - 0.96 mg/dL [facility] Estimated Glomerular Filtration Rate 59 mL/min/1.73m Low >=60 mL/min/1.73m [facility] Glucose [Mass/Vol] 86 mg/dL 74 - 99 mg/dL [facility] Potassium [Moles/Vol] 4.6 mmol/L 3.7 - 5.1 mmol/L [facility] Protein [Mass/Vol] 6.5 g/dL 6.3 - 8.0 g/dL [facility] Sodium [Moles/Vol] 139 mmol/L 136 - 144 mmol/L [facility] Urea nitrogen [Mass/Vol] 15 mg/dL 7 - 21 mg/dL [facility] HbA1c (Bld)on 05-11-2023 Average glucose Estimated from glycated hemoglobin (Bld) [Mass/Vol] 117 mg/dL [facility] HbA1c (Bld) [Mass fraction] 5.7 % High 4.3 - 5.6 % [facility] Lipid 1996 panelon 4 Cholesterol [Mass/Vol] 150 mg/dL <200 mg/dL [facility] Cholesterol in HDL [Mass/Vol] 56 mg/dL >39 mg/dL [facility] Cholesterol in LDL [Mass/Vol] 58 mg/dL <100 mg/dL [facility] Cholesterol in LDL/Cholesterol in HDL [Mass ratio] 1.04 {ratio} <2.54 [facility] Cholesterol in VLDL [Mass/Vol] 36 mg/dL High <30 mg/dL [facility] Cholesterol non HDL [Mass/Vol] 94 mg/dL <130 mg/dL [facility] Cholesterol.total/Cho lesterol in HDL [Mass ratio] 2.68 {ratio} <5.10 [facility] Fasting Time 12 hrs [facility] Triglyceride [Mass/Vol] 179 mg/dL High <150 mg/dL [facility] MAGNESIUM BLDon 05-11-2023 Magnesium [Mass/Vol] 2.3 mg/dL 1.7 - 2 .3 mg/dL [facility] VITAMIN D 25 HYDROXYon 05-11 25-hydroxyvitamin D3 [Mass/Vol] 32.8 ng/mL 31.0 - 80.0 ng/mL [facility] Eosinophils Auto (Bld) [#/Vo l]on 12-03-2022 Eosinophils (Bld) [#/Vol] 0.12 10*3/uL <0.46 k/uL [facility] NITRIC OXIDE, EXHALEDon 05-08 [facility] DXA-AXIAL SKELETONon 023 LOWEST T-SCORE -1.0 [facility] No Panel InformationOrdered By: Dr. Mazariegos on 05-10-2022 Nasopharyngeal Culture No growth in 48 hours. [facility] Gram stain for investigation of transfusion reactionOrdered By: Dr. Mazariegos on 05-08-2022 Microscopic observation Gram stain Nom (Unsp spec) [facility] CNOVon 05-03-2022 CNOV Office Visit (SPAGWO ) CHEY JEFFERS ([id number]) 1960 F Date Time Provider Department 05/03/22 9:45 AM ELIA JACOB SPAGWO During your visit today, we recorded the following information about you: Pulse Respiration 94/minute 18/minute Lissette Morley MA 05/03/2022 10:27 AM Signed Review of Systems Constitutional: Negative for activity [...] for suicidal ideas. The patient is nervous/anxious. Elia Jacob APRN.GEOSCIENCE LABORATORY TECHNICIAN 05/03/2022 10:27 AM Signed [facility] Today's Date: 05/03/2022 Last Visit: 03/01/22 [...] Years Frequency - Continuous Intervention/Comfort measure - Reposition;Relaxation;P ositioning Comments - - Pain Assessment - - Current Pain Medications: Opioids: NSAIDS: Anti-depressants: Anti-convulsants: Muscle relaxants: Others: RX Clonazepam Analgesia: not adequate Current Anti-Coagulant Use: No PAST Pain Medications (for the chief complaint(s)): Membrane Stabilizers: Maprotiline, Imiprimine, Neurontin (Gabapentin), Lyrica (Pregabalin), Cymbalta (Duloxetine), Effexor (Venlafaxine), and Elavil (Amitriptyline), (reports history of kidney stones) NSAIDS: none - allergy to Ibuprofen Opioids: Tramadol, Vicodin or [place] (Hydrocodone), Percocet (Oxycodone), and Duragesic (Fentanyl Patch) [...] activity was identified. 05/03/2022 by Elia Jacob APRN.GEOSCIENCE LABORATORY TECHNICIAN Allergies: ALLERGIES Allergen Reactions Aspirin [Salicylate* Swelling, [...] Oxycodone Shortness of Breath Penicillins rash Prednisone Itchin (more content not included)... Normal [facility] No Panel InformationOrdered By: Dr. Mazariegos on 03-25-2022 Nasopharyngeal Culture Staphylococcus pseudintermediu [facility] Gram stain for investigation of transfusion reactionOrdered By: Dr. Mazariegos on 03-23-2022 Microscopic observation Gram stain Nom (Unsp spec) [facility] MRI LUMBAR SPINE WO IVCONon 03-23-2022 [facility] CNOVon 03-01-2022 CNOV Office Visit (SPAGWO ) CHEY JEFFERS ([id number]) 1960 F Date Time Provider Department 03/01/22 1:15 PM ERMIAS SOLANO During your visit today, we recorded the following information about you: Pulse Respiration 98/minute 16/minute Ermias Solano MD 03/01/2022 1:12 PM Signed [facility] Today's Date: 03/01/2022 Last Visit: 12/14/2021 Name: [...] She has been seen previously by Dr. Walls (2011) and Dr. Corrigan (2020) for pain [...] what else to do to wean myself off, she is currently cutting the patch in half. Current Status: INTAKE PAIN ASSESSMENT 01/10/2022 03/01/2022 Are you having pain associated with your visit today? No Yes, Provider notified Pain Scales - Verbal (Numeric Rating or Visual Analog Scale) Pain Level - 9 Pain Location - Neck-Posterior Description - Spasm;Stabbing;Aching;S harp Duration Amount of Time - - Duration Units - Years Frequency - Continuous Intervention/Comfort measure - Reposition;Relaxation;P ositioning Comments - - Pain Assessment - - [...] dose taken: N/A Non-Opioid Pain Medications: None [id number] (OTC) Pain Meds: None Compliance: PDMP website [...] Urine Negative Negative Opiates Negative Negative Barbiturates Ne (more content not included)... Normal [facility] Basophil percentageOrdered B y: Dr. Oliver on 02-08-2022 Chloride [Moles/Vol] 107 mmol/L 98-107 [facility] Glucose [Mass/Vol] 96 mg/dL 74-106 [facility] Potassium [Moles/Vol] 4.1 mmol/L 3.5-5.1 [facility] Sodium [Moles/Vol] 141 mmol/L 136-145 [facility] WBC (Bld) [#/Vol] 10.0 10*3/uL 4.4-11.0 [facility] Blood erythrocytes count (nu mber/volume)Ordered By: Dr. Oliver on 02-08-2022 RBC (Bld) [#/Vol] 5.14 10*6/uL 4.2-5.4 [facility] Blood hemoglobin measurement (mass/volume)Ordered By: Dr. Oliver on 02-08-2022 Hemoglobin (Bld) [Mass/Vol] 14.5 g/dL 12.0-15.0 [facility] Blood platelet mean volumeOr dered By: Dr. Oliver on 02-08-2022 Platelet mean volume (Bld) [Entitic vol] 9.7 fL 6.2-12.0 [facility] Determination of erythrocyte mean corpuscular volume (MCV)Ordered By: Dr. Oliver on 02-08-2022 MCV (RBC) [Entitic vol] 88.3 fL 81-99 [facility] Hematocrit Auto (Bld) [Volum e fraction]Ordered By: Dr. Oliver on 02-08-2022 Hematocrit (Bld) [Volume fraction] 45.4 % 37-47 [facility] - Chemistry and C hemistry - challengeOrdered By: Dr. Oliver on 02-08-2022 CO2 [Moles/Vol] 29.0 mmol/L 21.0-32.0 [facility] Urea nitrogen/Creatinine [Mass ratio] 13.8 mg/mg 10-20 [facility] - Hematology and Cell countsOrdered By: Dr. Oliver on 02-08-2022 Erythrocyte distribution width (RBC) [Entitic vol] 43.3 fL 35.1-43.9 [facility] Erythrocyte distribution width (RBC) [Ratio] 13.3 % 11.6-14.6 [facility] MCH (RBC) [Entitic mass] 28.2 pg 27.0-32.0 [facility] MCHC Auto (RBC) [Mass/Vol]Or dered By: Dr. Oliver on 02-08-2022 MCHC (RBC) [Mass/Vol] 31.9 g/dL 32-36 [facility] No Panel InformationOrdered By: Dr. Oliver on 02-08-2022 Estimated GFR (MDRD) Amer 78 mL/min >60 [facility] Comment on above: GFR Calc Estimated GFR (MDRD) Non-Af Amer 64 mL/min >60 [facility] Comment on above: Non- GFR Calc Platelets bldOrdered By: Dr. Oliver on 02-08-2022 Platelets (Bld) [#/Vol] 421 10*3/uL 150-450 [facility] Serum or plasma calcium vinita urement (mass/volume)Ordered By: Dr. Oliver on 02-08-2022 Calcium [Mass/Vol] 9.6 mg/dL 8.5-10.1 [facility] Serum or plasma creatinine m easurement (mass/volume)Ordered By: Dr. Oliver on 02-08-2022 Creatinine [Mass/Vol] 0.94 mg/dL 0.55-1.02 [facility] Comment on above: The validity of the calculated GFR & GFRAA in patients over 70 years has not been determined. Clinical correlation is essential. Serum or plasma urea nitroge n measurement (mass/volume)Ordered By: Dr. Oliver on 02-08-2022 Urea nitrogen [Mass/Vol] 13 mg/dL 7-18 [facility] Thin prep Papanicolaou smear with manual screeningOrdered By: Dr. Oliver on 02-08-2022 Thin prep Papanicolaou smear with manual screening 5 5-15 [facility] CNOVon 12-14-2021 CNOV Office Visit (SPAGWO ) CHEY JEFFERS ([id number]) 1960 F Date Time Provider Department 12/14/21 11:00 AM ERMIAS SOLANO SPAGWO During your visit today, we recorded the following information about you: Pulse Respiration Normal [facility] UA DIP, URINE (POC)on 2021 BILIRUBIN UA (POCT) Negative Negative [facility] CLARITY UA (POCT) Clear [facility] COLOR UA (POCT) Yellow [facility] GLUCOSE UA (POCT) Negative Negative mg/dL [facility] HEMOGLOBIN/BLOOD UA (POCT) Trace-intact Abnormal Negative [facility] KETONE UA (POCT) Negative Negative mg/dL [facility] LEUKOCYTES UA (POCT) Negative [facility] NITR[facility] (POCT) Negative Negative [facility] PH UA (POCT) 6.5 4.5 - 8.0 [facility] Protein Ql (U) Negative Negative mg/dL [facility] SPECIFIC GRAVITY UA (POCT) 1.020 1.005 - 1.030 [facility] UROBILINOGEN UA (POCT) 0.2 E.U./dL Normal E.U./dL [facility] CNPNon 10-10-2021 CNPN Telephone (AGSPINE1) CHEY JEFFERS ([id number]) 1960 F Date Time Provider Department 10/10/21 ERMIAS SOLANO AGSPINE1 During your visit today, we recorded the following information about you: Yolanda Caraballo 10/10/2021 1:09 PM Signed Left brief message on [employer] stating to call the office to schedule New patient appointment with Dr. oSlano or Elia Jacob in [place]. Yolanda Caraballo Allergies As of Date: 10/10/2021 Noted Allergy Reaction ASPIRIN (SALICYLATES) 05/24/2006 7 - Swelling 12 - Shortness of Breath Comments: wheezing,swelling lips,rash,hives CEFDINIR 12/21/2019 9 - Itching Comments: Itchy scaly rash. CODEINE 02/15/2005 4 - Hives VICODIN (HYDROCODONE-ACETAMINOP HE*02/15/2005 4 - Hives DEMEROL (MEPERIDINE (PF)) 01/03/2006 2 - Rash BACTRIM (SULFAMETHOXAZOLE-TRIME TH*07/25/2005 Comments: uncertain BUDESONIDE 06/26/2018 2 - Rash [...] See Comments Comments: Hand shakes. Date Reviewed: 10/10/2021 Reviewed by: Yessica Hicks APRN.GEOSCIENCE LABORATORY TECHNICIAN - Fully Assessed Reason for Visit: Appointment [186] Prescriptions as of 10/10/2021 - montelukast (SINGULAIR) 10 mg tablet Take 1 tablet by mouth daily at bedtime. - fentaNYL (DURAGESIC) 12 mcg/hr pt72 Apply 1 Patch as directed every 72 hours for 30 days. Do not start before October 15, 2021. - fentaNYL (DURAGESIC) 12 mcg/hr pt72 Apply 1 Patch as directed every 72 hours for 30 days. Do not start before November 14, 2021. - fentaNYL (DURAGESIC) 12 mcg/hr pt72 Apply 1 Patch as directed every 72 hours for 30 days. Do not start before December 14, 2021. - sertraline (ZOLOFT) 25 mg tablet Take 1 tablet by mouth once daily. - budesonide-formoterol (SYMBICORT) 160-4.5 mcg/actuation inhaler Inhale 2 Puffs as instructed twice daily. - fentaNYL (DURAGESIC) 12 mcg/hr pt72 Apply 1 Patch as directed every 72 hours for 30 days. Do not start before August 15, 2021. - fentaNYL (DURAGESIC) 12 mcg/hr pt72 Apply 1 Patch as directed every 72 hours for 30 days. Do not start before July 15, 2021. - clonazePAM (KLONOPIN) 0.5 mg tablet Take 1 tablet by mouth twice daily for 180 days. - Estradiol (ESTRACE) 0.5 mg tablet Take 1 tablet by mouth once daily. - sucralfate (CARAFATE) 1 gram tablet Take 1 tablet by mouth before meals and at bedtime. - ipratropium bromide (ATROVENT) 42 mcg (0.06 %) nasal spray Use 2 Sprays in the nose three times daily. - predniSONE (DELTASONE) 5 mg tablet Take 1 tablet by mouth once daily. 2 tablets daily for 21 days, then 1 tablet daily until re-evaluation. - lansoprazole (PREVACID) 30 mg capsule Take 1 capsule by mouth once daily. - simvastatin (ZOCOR) 40 mg tablet Take 1 tablet by mouth daily at bedtime. - albuterol HFA (VENTOLIN HFA) 90 mcg/actuation inhaler Inhale 2 Puffs as instructed every 4 hours as needed for Wheezing/Shortness of Breath. - ipratropium-albuterol (DUONEB) 0.5 mg-3 mg(2.5 mg base)/3 mL nebu Inhale 3 mL as instructed every 4 hours as needed. - calcium carb/vit D2/minerals (CALTRATE PLUS ORAL) Take 1 capsule by mouth once daily. - fluticasone (FLONASE) 50 mcg/actuation nasal spray Use 1 Meraux in each nostril twice daily. VIA SPACER THEN RINSE AND GARGLE MOUTH WITH WATER. - LOPERAMIDE HCL (IMODIUM ORAL) Take by mouth as needed. - fexofenadine (NAN) 180 mg ORAL tablet Take one(1) tablet daily. - vit e acetate/gly/dimeth/wate r(CETAPHIL MOISTURIZING LOTION) apply twice daily Problem List As Of Date 10/10/2021 Noted Resolved Asthma with chronic obstructive pulmonary disea*05/24/2005 CHRONIC CYSTITIS NEC [N30.20] 06/04/2005 Vaginitis and vulvovaginitis, unspecified [N76.*06/04/2005 02/25/2015 Anxiety and d (more content not included)... Normal [facility] AMOS SCREENINGon 09-04-2021 [facility] NITRIC OXIDE, EXHALEDon - [facility] SPIROMETRY BASELINE ONLYon 0 08-17-2021 [id number]% PRE (L/S) 1.02 L/S [facility] FEV1 PRE (L) 2.06 L [facility] FEV1/FVC PRE (%) 0.65 % [facility] FVC PRE (L) 3.16 L [facility] PEF PRE (L/S) 5.56 L/S [facility] CNPNon 06-16-2020 CNPN Telephone (AGSPINE1) CHEY JEFFERS ([id number]) 1960 F Date Time Provider Department 06/16/20 GIRISH CORRIGAN AGSPINE1 During your visit today, we recorded the following information about you: RT Luoise, Tech 06/16/2020 10:18 AM Signed The background check and OARRS report have been scanned into the chart. The patient would be coming in for DDD and back pain. This is a PPG/Non PPG referral. The referring physician is Dr. Verduzco. The patient has [employer] insurance. Please review. OARRS- Narcotics:481 Overdose Risk:250 Have you had Pain Management in the past 3 years? If yes, where? Are you currently taking pain medication? If so, please list: Fentanyl patches. RT Girish Gil MD 06/17/2020 12:58 PM Addendum Ok to schedule, please let patient know I would not be able to continue her fentanyl patch on first visit, and me taking over prescribing of this would require appropriate objective justification based on imaging Sofia Michael RT, Tech 06/17/2020 1:19 PM Signed LMOM for patient to schedule. Sofia Michael RT Allergies As of Date: 06/16/2020 Noted Allergy Reaction ASPIRIN (SALICYLATES) 05/24/2006 7 - Swelling 12 - Shortness of Breath Comments: wheezing,swelling lips,rash,hives CEFDINIR 12/21/2019 9 - Itching Comments: Itchy scaly rash. CODEINE 02/15/2005 4 - Hives VICODIN (HYDROCODONE-ACETAMINOP HE*02/15/2005 4 - Hives DEMEROL (MEPERIDINE (PF)) 01/03/2006 2 - Rash BACTRIM (SULFAMETHOXAZOLE-TRIME TH*07/25/2005 Comments: uncertain BUDESONIDE 06/26/2018 2 - Rash [...] - Diarrhea MAPROTILINE 05/16/2009 9 - Itching MUCOMYST (ACETYLCYSTEINE) [...] See Comments Comments: Hand shakes. Date Reviewed: 06/16/2020 Reviewed by: Veena Herr LPN - Fully Assessed Reason for Visit: New Patient [172] Prescriptions as of 06/16/2020 Sig: CLONAZEPAM 0.5 MG TABLET Take 1 tablet by mouth twice * ESTRADIOL 0.5 MG TABLET Take 1 tablet by mouth once d* DICYCLOMINE 10 MG CAPSULE Take 1 capsule by mouth three* FENTANYL 12 MCG/HR TRANSDERMA* Apply 1 Patch as directed alissa* FENTANYL 12 MCG/HR TRANSDERMA* Apply 1 Patch as directed alissa* IPRATROPIUM 0.5 MG-ALBUTEROL * Inhale 3 mL as instructed alissa* LANSOPRAZOLE 30 MG CAPSULE,DE* Take 1 capsule by mouth once * ALBUTEROL SULFATE HFA 90 MCG/* Inhale 2 Puffs as instructed * MONTELUKAST 10 MG TABLET Take 1 tablet by mouth daily * IMIPRAMINE 50 MG TABLET Take 1 tablet by mouth daily * SUCRALFATE 1 GRAM TABLET Take 1 tablet by mouth before* SIMVASTATIN 40 MG TABLET Take 1 tablet by mouth daily * SYMBICORT 160 MCG-4.5 MCG/ACT* Inhale 2 Puffs as instructed * CALTRATE PLUS ORAL Take 1 capsule by mouth once * FLUTICASONE PROPIONATE 50 MCG* Use 1 Meraux in each nostril t* IMODIUM ORAL Take by mouth as needed. CHOLECALCIFEROL (VITAMIN D3) * Take 1,000 Units by mouth onc* FEXOFENADINE 180 MG TABLET Take one(1) tablet daily. 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 02/25/2015 Ankylosing spondylitis (HCC) [M45.9] 11/12/2005 04/25/2018 CHRONIC RHINITIS [J31.0] 02/27/2006 Sinusitis, chronic [J32.9] 06/21/2008 Intrinsic asthma, unspecified [J45.909] 08/05/2008 08/31/2016 ESOPHAGEAL REFLUX [K21.9] 08/05/2008 Acute gastritis without mention of hemorrhage [*07/11/2009 02/25/2015 Fibromyalgia [M79.7] 07/27/2009 COPD (chronic obstructive pulmonary disease) (H*07/27/2009 07/18/2017 Calcaneal spur [M77.30] 07/19/2010 02/25/2015 Plantar fasciitis [M72.2] 11/14/2010 02/25/2015 HNP (herniated nucleus pulposus), lumbar [M51.2*08/22/2011 07/11/2016 Myofascial muscle pain [M79.18] 09/07/2011 07/11/2016 DDD (degenerative disc disease), lumbar [M51.36]09/07/2011 Back pain [M54.9] 09/07/2011 07/11/2016 Osteoporosis [M81.0] 05/24/2013 Abnormal ultrasound of breast [R92.8] 06/17/2013 02/25/2015 Colon polyp [K63.5] 05/18/2014 10/16/2016 Serrated adenoma of colon [D12.6] 07/29/2014 Stress and adjustment reaction [F43.29] 01/11/2015 07/11/2016 Enterocolitis due to Clostridium difficile [A04*01/12/2015 07/17/2016 Kidney stone on left side [N20.0] 02/01/2015 08/31/2016 Colonic polyp [K63.5] 03/10/2015 03/10/2015 Bilateral renal cysts [N28.1] 03/11/2015 07/11/2016 Abnormal toxicological findings [R89.2] 07/17/2016 01/16/2017 Nasal polyposis [J33.9] 01/16/2017 Menopause syndrome [N95.1] 01/19/2005 [facility] 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 [Z79.52] 01/16/2017 Other nondisplaced fracture of upper end of rig*09/15/2019 Encounter Status:Closed by SOFIA MICHAEL on 06/16/20 [facility] PROGRESSon 04-17-2017 PROGRESS HNO ID: [id number] Author: Eitan Lopez Service: (none) Author Type: Physician Type: Progress Notes Filed: 04/17/2017 9:07 PM Note Text: Error wrong chart Normal [facility] CNOPon 04-11-2017 CNOP Operative Note (Enc) (MEPRAD) Prog ress Notes:Eitan Lopez MD 04/17/2017 9:07 PM SignedError wrong chartEncounter Status:Closed by EITAN LOPEZ MD on 04/17/17Encounter Number: [id number] [facility] Gram stain for investigation of transfusion reaction Microscopic observation Gram stain Nom (Unsp spec) [facility] Work Phone: No Panel Information Nasopharyngeal Culture Sterile Mycelia [facility] Work Phone: Nasopharyngeal Culture Staphylococcus pseudintermediu [facility] Work Phone: [facility] Vital Signs Date Time Vital Sign Value Performing Clinician Faci lity 02-09-2025 09:11040 Body height 152.4 cm TAMIKO WYNNSproom [facility] 02-09-2025 09:11040 Body temperature 96.98 [degF] TAMIKO WYNNSproom [facility] 02-09-2025 09:11040 Body weight 68.2 kg TAMIKO WYNNSproom [facility] 02-09-2025 09:11-0400 Diastolic Blood Pressure Non-Invasive 65 mm[Hg] TAMIKO ARMENTA DO [facility] 02-09-2025 09:11-0400 Heart rate 100 /min TAMIKO ARMENTA DO [facility] 02-09-2025 09:11-0400 Respiratory rate 16 /min TAMIKO ARMENTA DO [facility] 02-09-2025 09:11-0400 Systolic Blood Pressure Non-Invasive 142 mm[Hg] TAMIKO ARMENTA DO [facility] 12-23-2024 08:57-0400 Body temperature 97.9 [degF] Dr. Edda Oconnor MD Work Phone: 0(012)423-1528[address] [place] [address] 12-23-2024 08:57-0400 Diastolic blood pressure 51 mm[Hg] Dr. Edda Oconnor MD Work Phone: 1(176)321-755[address] [place] [address] 12-23-2024 08:57-0400 Heart rate 92 /min Dr. Edda Oconnor MD Work Phone: 6(233)738-879302 [place] [address] 12-23-2024 08:57-0400 Respiratory rate 18 /min Dr. Edda Oconnor MD Work Phone: 7(366)156-259670 [place] [address] 12-23-2024 08:57-0400 Systolic blood pressure 127 mm[Hg] Dr. Edda Oconnor MD Work Phone: 9(114)197-568402 [place] [address] 12-02-2024 08:28-0400 Body temperature 97.6 [degF] Dr. Edda Oconnor MD Work Phone: 7(324)002-724070 [place] [address] 12-02-2024 08:28-0400 Diastolic blood pressure 66 mm[Hg] Dr. Edda Oconnor MD Work Phone: 4(341)931-631770 [place] [address] 12-02-2024 08:28-0400 Heart rate 105 /min Dr. Edda Oconnor MD Work Phone: [facility] 12-02-2024 08:28-0400 Respiratory rate 16 /min Dr. Edda Oconnor MD Work Phone: [facility] 12-02-2024 08:28-0400 Systolic blood pressure 122 mm[Hg] Dr. Edda Oconnor MD Work Phone: [facility] 11-17-2024 13:28-0400 Body mass index (BMI) [Ratio] 29.69 kg/m2 Pulm Wstr Work Phone: [facility] 11-17-2024 13:28040 Body weight 68.95 kg Pulm Wstr Work Phone: [facility] 11-17-2024 13:15-0400 Body mass index (BMI) [Ratio] 29.8 kg/m2 Ana Cristina Click CORE MAKER HELPER.GEOSCIENCE LABORATORY TECHNICIAN Work Phone: [facility] 11-17-2024 13:15-0400 Body weight 69.22 kg Ana Cristina Click CORE MAKER HELPER.GEOSCIENCE LABORATORY TECHNICIAN Work Phone: [facility] 11-17-2024 13:15-0400 Diastolic blood pressure 50 mm[Hg] Ana Cristina Click CORE MAKER HELPER.GEOSCIENCE LABORATORY TECHNICIAN Work Phone: [facility] 11-17-2024 13:15-0400 Heart rate 110 /min Ana Cristina Click CORE MAKER HELPER.GEOSCIENCE LABORATORY TECHNICIAN Work Phone: [facility] 11-17-2024 13:15-0400 Respiratory rate 20 /min Ana Cristina Click CORE MAKER HELPER.GEOSCIENCE LABORATORY TECHNICIAN Work Phone: [facility] 11-17-2024 13:15-0400 SaO2% (BldA) [Mass fraction] 92 % Ana Cristina Click CORE MAKER HELPER.GEOSCIENCE LABORATORY TECHNICIAN Work Phone: [facility] 11-17-2024 13:15-0400 Systolic blood pressure 119 mm[Hg] Ana Cristina Click CORE MAKER HELPER.GEOSCIENCE LABORATORY TECHNICIAN Work Phone: [facility] 11-04-2024 14:06-0400 Body mass index (BMI) [Ratio] 29.23 kg/m2 Nuno Marcelino CORE MAKER HELPER.GEOSCIENCE LABORATORY TECHNICIAN Work Phone: [facility] 11-04-2024 14:06-0400 Body temperature 98.2 [degF] Nuno Marcelino CORE MAKER HELPER.GEOSCIENCE LABORATORY TECHNICIAN Work Phone: [facility] 11-04-2024 14:06-0400 Body weight 67.9 kg Nuno Marcelino CORE MAKER HELPER.GEOSCIENCE LABORATORY TECHNICIAN Work Phone: [facility] 11-04-2024 14:06-0400 Diastolic blood pressure 78 mm[Hg] Nuno Marcelino CORE MAKER HELPER.GEOSCIENCE LABORATORY TECHNICIAN Work Phone: [facility] 11-04-2024 14:06-0400 Heart rate 106 /min Nuno Marcelino CORE MAKER HELPER.GEOSCIENCE LABORATORY TECHNICIAN Work Phone: [facility] 11-04-2024 14:06-0400 Respiratory rate 14 /min Nuno Marcelino CORE MAKER HELPER.GEOSCIENCE LABORATORY TECHNICIAN Work Phone: [facility] 11-04-2024 14:06-0400 SaO2% (BldA) [Mass fraction] 96 % Nuno Marcelino CORE MAKER HELPER.GEOSCIENCE LABORATORY TECHNICIAN Work Phone: [facility] 11-04-2024 14:06-0400 Systolic blood pressure 120 mm[Hg] Nuno Marcelino CORE MAKER HELPER.GEOSCIENCE LABORATORY TECHNICIAN Work Phone: [facility] 11-02-2024 08:34-0400 Body temperature 98.29 [degF] Nuno Marcelino CORE MAKER HELPER.GEOSCIENCE LABORATORY TECHNICIAN Work Phone: [facility] 11-02-2024 08:34-0400 Diastolic blood pressure 88 mm[Hg] Nuno Marcelino CORE MAKER HELPER.GEOSCIENCE LABORATORY TECHNICIAN Work Phone: [facility] 11-02-2024 08:34-0400 Heart rate 108 /min Nuno Marcelino CORE MAKER HELPER.GEOSCIENCE LABORATORY TECHNICIAN Work Phone: [facility] 11-02-2024 08:34-0400 SaO2% (BldA) [Mass fraction] 98 % Nuno Marcelino CORE MAKER HELPER.GEOSCIENCE LABORATORY TECHNICIAN Work Phone: [facility] 11-02-2024 08:34-0400 Systolic blood pressure 108 mm[Hg] Nuno Marcelino CORE MAKER HELPER.GEOSCIENCE LABORATORY TECHNICIAN Work Phone: [facility] 10-26-2024 09:03-0400 Body mass index (BMI) [Ratio] 29.28 kg/m2 Nuno Marcelino CORE MAKER HELPER.GEOSCIENCE LABORATORY TECHNICIAN Work Phone: [facility] 10-26-2024 09:03-0400 Body weight 68 kg Nuno Marcelino CORE MAKER HELPER.GEOSCIENCE LABORATORY TECHNICIAN Work Phone: [facility] 10-26-2024 09:03-0400 Diastolic blood pressure 90 mm[Hg] Nuno Marcelino CORE MAKER HELPER.GEOSCIENCE LABORATORY TECHNICIAN Work Phone: [facility] 10-26-2024 09:03-0400 Heart rate 105 /min Nuno Marcelino CORE MAKER HELPER.GEOSCIENCE LABORATORY TECHNICIAN Work Phone: [facility] 10-26-2024 09:03-0400 SaO2% (BldA) [Mass fraction] 94 % Nuno Marcelino CORE MAKER HELPER.GEOSCIENCE LABORATORY TECHNICIAN Work Phone: [facility] 10-26-2024 09:03-0400 Systolic blood pressure 116 mm[Hg] Nuno Marcelino CORE MAKER HELPER.GEOSCIENCE LABORATORY TECHNICIAN Work Phone: [facility] 10-22-2024 19:02-0400 Body temperature 98.5 [degF] Dr. Edda Oconnor MD Work Phone: [facility] 10-22-2024 19:02-0400 Diastolic blood pressure 66 mm[Hg] Dr. Edda Oconnor MD Work Phone: [facility] 10-22-2024 19:02-0400 Heart rate 94 /min Dr. Edda Oconnor MD Work Phone: [facility] 10-22-2024 19:02-0400 Respiratory rate 16 /min Dr. Edda Oconnor MD Work Phone: [facility] 10-22-2024 19:02-0400 SaO2% (BldA) [Mass fraction] 99 % Dr. Edda Oconnor MD Work Phone: [facility] 10-22-2024 19:02-0400 Systolic blood pressure 148 mm[Hg] Dr. Edda Oconnor MD Work Phone: 1(074)613-859502 [place] [address] 10-22-2024 16:19-0400 Body height 154.[address] Edda Oconnor MD Work Phone: 2(030)282-073602 [place] [address] 10-22-2024 16:19-0400 Body mass index (BMI) [Ratio] 28.2 kg/m2 Dr. Edda Oconnor MD Work Phone: 0(231)108-933002 [place] [address] 10-22-2024 16:19-0400 Body weight 67.[address] Edda Oconnor MD Work Phone: 7(404)623-884602 [place] [address] 09-21-2024 09:15-0400 Body temperature 98.9 [degF] Dr. Edda Oconnor MD Work Phone: 1(978)779-462102 [place] [address] 09-21-2024 09:15-0400 Diastolic blood pressure 64 mm[Hg] Dr. Edda Oconnor MD Work Phone: 6(207)305-124002 [place] [address] 09-21-2024 09:15-0400 Heart rate 88 /min Dr. Edda Oconnor MD Work Phone: 0(277)019-203602 [place] [address] 09-21-2024 09:15-0400 Respiratory rate 16 /min Dr. Edda Oconnor MD Work Phone: 4(991)790-028202 [place] [address] 09-21-2024 09:15-0400 SaO2% (BldA) [Mass fraction] 99 % Dr. Edda Oconnor MD Work Phone: 5(033)645-087602 [place] [address] 09-21-2024 09:15-0400 Systolic blood pressure 111 mm[Hg] Dr. Edda Oconnor MD Work Phone: 2(194)632-671002 [place] [address] 09-21-2024 08:12-0400 Body height 154.[address] Edda Oconnor MD Work Phone: 0(761)277-726202 [place] [address] 09-21-2024 08:12-0400 Body mass index (BMI) [Ratio] 27.9 kg/m2 Dr. Edda Oconnor MD Work Phone: [facility] 09-21-2024 08:12-0400 Body weight 67.[address] Edda Oconnor MD Work Phone: [facility] 07-20-2024 12:01-0400 Body height 154.[address] Nory Coker DO Work Phone: [facility] 07-20-2024 12:01-0400 Body mass index (BMI) [Ratio] 28 kg/m2 Dr. Nory Coker DO Work Phone: [facility] 07-20-2024 12:01-0400 Body temperature 97.6 [degF] Dr. Nory Coker DO Work Phone: [facility] 07-20-2024 12:01-0400 Body weight 67.[address] Nory Coker DO Work Phone: [facility] 07-20-2024 12:01-0400 Diastolic blood pressure 59 mm[Hg] Dr. Nory Coker DO Work Phone: [facility] 07-20-2024 12:01-0400 Heart rate 96 /min Dr. Nory Coker DO Work Phone: [facility] 07-20-2024 12:01-0400 Respiratory rate 16 /min Dr. Nory Coker DO Work Phone: [facility] [facility] 12:01-0400 SaO2% (BldA) [Mass fraction] 98 % Dr. Nory Coker DO Work Phone: [facility] 07-20-2024 12:01-0400 Systolic blood pressure 137 mm[Hg] Dr. Nory Coker DO Work Phone: [facility] 06-18-2024 11:29-0500 Body mass index (BMI) [Ratio] 27.93 kg/m2 Mary Lou Nicholson MD Work Phone: [facility] 06-18-2024 11:29-0500 Body weight 64.86 kg Mary Lou Nicholson MD Work Phone: [facility] 06-18-2024 11:29-0500 Diastolic blood pressure 84 mm[Hg] Mary Lou Nicholson MD Work Phone: [facility] 06-18-2024 11:29-0500 Heart rate 105 /min Mary Lou Nicholson MD Work Phone: [facility] 06-18-2024 11:29-0500 Respiratory rate 16 /min Mary Lou Nicholson MD Work Phone: [facility] 06-18-2024 11:29-0500 SaO2% (BldA) [Mass fraction] 98 % Mary Lou Nicholson MD Work Phone: [facility] 06-18-2024 11:29-0500 Systolic blood pressure 122 mm[Hg] Mary Lou Nicholson MD Work Phone: [facility] 05-11-2024 15:02-0500 Body mass index (BMI) [Ratio] 28.85 kg/m2 Checo Bell MD Work Phone: [facility] 05-11-2024 15:02-0500 Body temperature 97.7 [degF] Checo Bell MD Work Phone: [facility] 05-11-2024 15:02-0500 Body weight 67 kg Checo Bell MD Work Phone: [facility] 05-11-2024 15:02-0500 Diastolic blood pressure 68 mm[Hg] Checo Bell MD Work Phone: [facility] 05-11-2024 15:02-0500 Heart rate 110 /min Checo Bell MD Work Phone: [facility] 05-11-2024 15:02-0500 Respiratory rate 16 /min Checo Bell MD Work Phone: [facility] 05-11-2024 15:02-0500 SaO2% (BldA) [Mass fraction] 97 % Checo Bell MD Work Phone: [facility] 05-11-2024 15:02-0500 Systolic blood pressure 110 mm[Hg] Checo Bell MD Work Phone: [facility] 05-04-2024 08:45-0500 Body mass index (BMI) [Ratio] 28.07 kg/m2 Edda Oconnor MD Work Phone: [facility] 05-04-2024 08:45-0500 Body temperature 97.11 [degF] Edda Oconnor MD Work Phone: [facility] 05-04-2024 08:45-0500 Body weight 65.2 kg Edda Oconnor MD Work Phone: [facility] 05-04-2024 08:45-0500 Diastolic blood pressure 78 mm[Hg] Edda Oconnor MD Work Phone: [facility] 05-04-2024 08:45-0500 Heart rate 112 /min Edda Oconnor MD Work Phone: [facility] 05-04-2024 08:45-0500 Respiratory rate 16 /min Edda Oconnor MD Work Phone: [facility] 05-04-2024 08:45-0500 SaO2% (BldA) [Mass fraction] 97 % Edda Oconnor MD Work Phone: [facility] 05-04-2024 08:45-0500 Systolic blood pressure 122 mm[Hg] Edda Oconnor MD Work Phone: [facility] 04-04-2024 10:17-0500 Body temperature 97.7 [degF] Dr. Nory Coker DO Work Phone: [facility] 04-04-2024 10:17-0500 Diastolic blood pressure 59 mm[Hg] Dr. Nory Coker DO Work Phone: [facility] 04-04-2024 10:17-0500 Heart rate 92 /min Dr. Nory Coker DO Work Phone: [facility] 04-04-2024 10:17-0500 Respiratory rate 16 /min Dr. Nory Coker DO Work Phone: [facility] 04-04-2024 10:17-0500 SaO2% (BldA) [Mass fraction] 98 % Dr. Nory Coker DO Work Phone: [facility] 04-04-2024 10:17-0500 Systolic blood pressure 134 mm[Hg] Dr. Nory Coker DO Work Phone: [facility] 04-04-2024 09:32-0500 Body mass index (BMI) [Ratio] 27.8 kg/m2 Dr. Nory Coker DO Work Phone: [facility] 04-04-2024 09:32-0500 Body weight 66.[address] Nory Coker DO Work Phone: [facility] 03-24-2024 09:41-0500 Body mass index (BMI) [Ratio] 28.32 kg/m2 Pulm Wstr Work Phone: [facility] 03-24-2024 09:41-0500 Body weight 65.77 kg Pulm Wstr Work Phone: [facility] 03-24-2024 09:39-0500 Diastolic blood pressure 86 mm[Hg] Ana Cristina Click CORE MAKER HELPER.GEOSCIENCE LABORATORY TECHNICIAN Work Phone: [facility] 03-24-2024 09:39-0500 Heart rate 92 /min Ana Cristina Click CORE MAKER HELPER.GEOSCIENCE LABORATORY TECHNICIAN Work Phone: [facility] 03-24-2024 09:39-0500 Respiratory rate 18 /min Ana Cristina Click CORE MAKER HELPER.GEOSCIENCE LABORATORY TECHNICIAN Work Phone: [facility] 03-24-2024 09:39-0500 SaO2% (BldA) [Mass fraction] 97 % Ana Cristina Click CORE MAKER HELPER.GEOSCIENCE LABORATORY TECHNICIAN Work Phone: [facility] 03-24-2024 09:39-0500 Systolic blood pressure 130 mm[Hg] Ana Cristina Click CORE MAKER HELPER.GEOSCIENCE LABORATORY TECHNICIAN Work Phone: [facility] 01-17-2024 11:27-0400 Body mass index (BMI) [Ratio] 28.32 kg/m2 Mary Lou Nicholson MD Work Phone: [facility] 01-17-2024 11:27-0400 Body weight 65.77 kg Mary Lou Nicholson MD Work Phone: [facility] 01-17-2024 11:27-0400 Diastolic blood pressure 67 mm[Hg] Mary Lou Nicholson MD Work Phone: [facility] 01-17-2024 11:27-0400 Heart rate 101 /min Mary Lou Nicholson MD Work Phone: [facility] 01-17-2024 11:27-0400 SaO2% (BldA) [Mass fraction] 98 % Mary Lou Nicholson MD Work Phone: [facility] 01-17-2024 11:27-0400 Systolic blood pressure 123 mm[Hg] Mary Lou Nicholson MD Work Phone: [facility] 01-17-2024 11:20-0400 Body mass index (BMI) [Ratio] 28.32 kg/m2 Pulm Wstr Work Phone: [facility] 01-17-2024 11:20-0400 Body weight 65.77 kg Pulm Wstr Work Phone: [facility] 11-01-2023 08:42-0400 Body mass index (BMI) [Ratio] 28.12 kg/m2 Nuno Marcelino CORE MAKER HELPER.GEOSCIENCE LABORATORY TECHNICIAN Work Phone: [facility] 11-01-2023 08:42-0400 Body weight 65.32 kg Nuno Marcelino CORE MAKER HELPER.GEOSCIENCE LABORATORY TECHNICIAN Work Phone: [facility] 11-01-2023 08:42-0400 Diastolic blood pressure 86 mm[Hg] Nuno Marcelino CORE MAKER HELPER.GEOSCIENCE LABORATORY TECHNICIAN Work Phone: [facility] 11-01-2023 08:42-0400 Heart rate 98 /min Nuno Marcelino CORE MAKER HELPER.GEOSCIENCE LABORATORY TECHNICIAN Work Phone: [facility] 11-01-2023 08:42-0400 SaO2% (BldA) [Mass fraction] 98 % Nuno Benson CORE MAKER HELPER.GEOSCIENCE LABORATORY TECHNICIAN Work Phone: [facility] 11-01-2023 08:42-0400 Systolic blood pressure 120 mm[Hg] Nuno Benson CORE MAKER HELPER.GEOSCIENCE LABORATORY TECHNICIAN Work Phone: [facility] 07-11-2023 08:39-0500 Body weight 67.86 kg Mary Lou Nicholson MD Work Phone: [facility] 07-11-2023 08:39-0500 Diastolic blood pressure 70 mm[Hg] Mary Lou Nicholson MD Work Phone: [facility] 07-11-2023 08:39-0500 Heart rate 96 /min Mary Lou Nicholson MD Work Phone: [facility] 07-11-2023 08:39-0500 Respiratory rate 16 /min Mary Lou Nicholson MD Work Phone: [facility] 07-11-2023 08:39-0500 SaO2% (BldA) [Mass fraction] 98 % Mary Lou Nicholson MD Work Phone: [facility] 07-11-2023 08:39-0500 Systolic blood pressure 138 mm[Hg] Mary Lou Nicholson MD Work Phone: [facility] 05-01-2023 14:45-0500 Diastolic blood pressure 78 mm[Hg] Edda Oconnor MD Work Phone: [facility] 05-01-2023 14:45-0500 Systolic blood pressure 126 mm[Hg] Edda Oconnor MD Work Phone: [facility] 05-01-2023 13:49-0500 Body temperature 96.21 [degF] Edda Oconnor MD Work Phone: [facility] 05-01-2023 13:49-0500 Body weight 67.13 kg Edda Oconnor MD Work Phone: [facility] 05-01-2023 13:49-0500 Heart rate 104 /min Edda Oconnor MD Work Phone: [facility] 05-01-2023 13:49-0500 Respiratory rate 18 /min Edda Oconnor MD Work Phone: [facility] 05-01-2023 13:49-0500 SaO2% (BldA) [Mass fraction] 97 % Edda Oconnor MD Work Phone: [facility] 01-18-2023 09:24-0400 Body temperature 97.81 [degF] Jenny Praisler-Wood CORE MAKER HELPER.GEOSCIENCE LABORATORY TECHNICIAN Work Phone: [facility] 01-18-2023 09:24-0400 Body weight 67.04 kg Jenny Praisler-Wood CORE MAKER HELPER.GEOSCIENCE LABORATORY TECHNICIAN Work Phone: [facility] 01-18-2023 09:24-0400 Diastolic blood pressure 74 mm[Hg] Jenny Praisler-Wood CORE MAKER HELPER.GEOSCIENCE LABORATORY TECHNICIAN Work Phone: [facility] 01-18-2023 09:24-0400 Heart rate 113 /min Jenny Praisler-Wood CORE MAKER HELPER.GEOSCIENCE LABORATORY TECHNICIAN Work Phone: [facility] 01-18-2023 09:24-0400 Respiratory rate 20 /min Jenny Praisler-Wood CORE MAKER HELPER.GEOSCIENCE LABORATORY TECHNICIAN Work Phone: [facility] 01-18-2023 09:24-0400 SaO2% (BldA) [Mass fraction] 98 % Jenny Praisler-Wood CORE MAKER HELPER.GEOSCIENCE LABORATORY TECHNICIAN Work Phone: [facility] 01-18-2023 09:24-0400 Systolic blood pressure 138 mm[Hg] Jenny Praisler-Wood CORE MAKER HELPER.GEOSCIENCE LABORATORY TECHNICIAN Work Phone: [facility] 01-08-2023 10:39-0400 Body weight 66.22 kg Viji Garcia MD Work Phone: [facility] 01-08-2023 10:39-0400 Diastolic blood pressure 70 mm[Hg] Viji Garcia MD Work Phone: [facility] 01-08-2023 10:39-0400 Heart rate 98 /min Viji Garcia MD Work Phone: [facility] 01-08-2023 10:39-0400 SaO2% (BldA) [Mass fraction] 96 % Viji Garcia MD Work Phone: [facility] 01-08-2023 10:39-0400 Systolic blood pressure 113 mm[Hg] Viji Garcia MD Work Phone: [facility] 01-02-2023 08:42-0400 Diastolic blood pressure 90 mm[Hg] Nuno Marcelino CORE MAKER HELPER.GEOSCIENCE LABORATORY TECHNICIAN Work Phone: [facility] 01-02-2023 08:42-0400 Systolic blood pressure 126 mm[Hg] Nuno Marcelino CORE MAKER HELPER.GEOSCIENCE LABORATORY TECHNICIAN Work Phone: [facility] 01-02-2023 08:41-0400 Body weight 66.68 kg Nuno Marcelino CORE MAKER HELPER.GEOSCIENCE LABORATORY TECHNICIAN Work Phone: [facility] 01-02-2023 08:41-0400 Heart rate 107 /min Nuno Marcelino CORE MAKER HELPER.GEOSCIENCE LABORATORY TECHNICIAN Work Phone: [facility] 01-02-2023 08:41-0400 SaO2% (BldA) [Mass fraction] 95 % Nuno Marcelino CORE MAKER HELPER.GEOSCIENCE LABORATORY TECHNICIAN Work Phone: [facility] 12-03-2022 13:17-0400 Body height 152.4 cm Ellen Felipe PA-C Work Phone: [facility] 12-03-2022 13:17-0400 Body weight 67.59 kg Ellen Felipe PA-C Work Phone: [facility] 12-03-2022 13:17-0400 Diastolic blood pressure 76 mm[Hg] Ellen Felipe PA-C Work Phone: [facility] 12-03-2022 13:17-0400 Heart rate 106 /min Ellen Felipe PA-C Work Phone: [facility] 12-03-2022 13:17-0400 Respiratory rate 16 /min Ellen Felipe PA-C Work Phone: [facility] 12-03-2022 13:17-0400 SaO2% (BldA) [Mass fraction] 97 % Ellen Wang PA-C Work Phone: [facility] 12-03-2022 13:17-0400 Systolic blood pressure 140 mm[Hg] Ellen Wang PA-C Work Phone: [facility] 06-22-2022 15:31-0500 Body temperature 97.81 [degF] Edda Oconnor MD Work Phone: [facility] 06-22-2022 15:31-0500 Body weight 63.5 kg Edda Oconnor MD Work Phone: [facility] 06-22-2022 15:31-0500 Diastolic blood pressure 69 mm[Hg] Edda Oconnor MD Work Phone: [facility] 06-22-2022 15:31-0500 Heart rate 98 /min Edda Oconnor MD Work Phone: [facility] 06-22-2022 15:31-0500 Respiratory rate 18 /min Edda Oconnor MD Work Phone: [facility] 06-22-2022 15:31-0500 SaO2% (BldA) [Mass fraction] 99 % Edda Oconnor MD Work Phone: [facility] 06-22-2022 15:31-0500 Systolic blood pressure 112 mm[Hg] Edda Oconnor MD Work Phone: [facility] 06-04-2022 09:46-0500 Body height 152.4 cm Mary Lou Nicholson MD Work Phone: [facility] 06-04-2022 09:46-0500 Body weight 64 kg Mary Lou Nicholson MD Work Phone: [facility] 06-04-2022 09:46-0500 Diastolic blood pressure 82 mm[Hg] Mary Lou Nicholson MD Work Phone: [facility] 06-04-2022 09:46-0500 Heart rate 84 /min Mary Lou Nicholson MD Work Phone: [facility] 06-04-2022 09:46-0500 Respiratory rate 18 /min Mary Lou Nicholson MD Work Phone: [facility] 06-04-2022 09:46-0500 SaO2% (BldA) [Mass fraction] 98 % Mary Lou Nicholson MD Work Phone: [facility] 06-04-2022 09:46-0500 Systolic blood pressure 132 mm[Hg] Mary Lou Nicholson MD Work Phone: [facility] 06-04-2022 09:34-0500 Body height 152.4 cm Pulm Wstr Work Phone: [facility] 06-04-2022 09:34-0500 Body weight 63.96 kg Pulm Wstr Work Phone: [facility] 05-03-2022 09:44-0500 Heart rate 94 /min Elia Nidia CORE MAKER HELPER.GEOSCIENCE LABORATORY TECHNICIAN Work Phone: [facility] 05-03-2022 09:44-0500 Respiratory rate 18 /min Elia Nidia CORE MAKER HELPER.GEOSCIENCE LABORATORY TECHNICIAN Work Phone: [facility] 05-03-2022 09:44-0500 SaO2% (BldA) [Mass fraction] 98 % Elia Nidia CORE MAKER HELPER.GEOSCIENCE LABORATORY TECHNICIAN Work Phone: [facility] 04-19-2022 08:41-0500 Body weight 62.6 kg Maria Teresa Edwards CORE MAKER HELPER.WOVEN LABEL DESIGNER Work Phone: [facility] 04-19-2022 08:41-0500 Diastolic blood pressure 74 mm[Hg] Maria Teresa Edwards CORE MAKER HELPER.WOVEN LABEL DESIGNER Work Phone: [facility] 04-19-2022 08:41-0500 Heart rate 107 /min Maria Teresa Edwards CORE MAKER HELPER.WOVEN LABEL DESIGNER Work Phone: [facility] 04-19-2022 08:41-0500 Respiratory rate 16 /min Maria Teresa Edwards CORE MAKER HELPER.WOVEN LABEL DESIGNER Work Phone: [facility] 04-19-2022 08:41-0500 SaO2% (BldA) [Mass fraction] 98 % Maria Teresa Edwards CORE MAKER HELPER.WOVEN LABEL DESIGNER Work Phone: [facility] 04-19-2022 08:41-0500 Systolic blood pressure 128 mm[Hg] Maria Teresa Edwards CORE MAKER HELPER.WOVEN LABEL DESIGNER Work Phone: [facility] 03-01-2022 12:58-0400 Heart rate 98 /min Emrias Solano MD Work Phone: [facility] 03-01-2022 12:58-0400 Respiratory rate 16 /min Ermias Solano MD Work Phone: [facility] 03-01-2022 12:58-0400 SaO2% (BldA) [Mass fraction] 99 % Ermias Solano MD Work Phone: [facility] 02-13-2022 16:52-0400 Body temperature 97.8 [degF] [facility] 02-13-2022 16:52-0400 Diastolic blood pressure 49 mm[Hg] [facility] 02-13-2022 16:52-0400 Heart rate 86 /min [facility] 02-13-2022 16:52-0400 Respiratory rate 16 /min [facility] 02-13-2022 16:52-0400 SaO2% (BldA) [Mass fraction] 96 % [facility] 02-13-2022 16:52-0400 Systolic blood pressure 110 mm[Hg] [facility] 02-13-2022 14:00-0400 Inhaled oxygen flow rate 4 L/min [facility] 02-13-2022 09:34-0400 Body height 154.94 cm [facility] 02-13-2022 09:34-0400 Body mass index (BMI) [Ratio] 25 kg/m2 [facility] 02-13-2022 09:34-0400 Body weight 60 kg [facility] 01-10-2022 09:17-0400 Body temperature 97.3 [degF] Lew Verduzco MD Work Phone: [facility] 01-10-2022 09:17-0400 Body weight 62.14 kg Lew Verduzco MD Work Phone: [facility] 01-10-2022 09:17-0400 Diastolic blood pressure 84 mm[Hg] Lew Verduzco MD Work Phone: [facility] 01-10-2022 09:17-0400 Heart rate 84 /min Lew Verduzco MD Work Phone: [facility] 01-10-2022 09:17-0400 Respiratory rate 20 /min Lew Verduzco MD Work Phone: [facility] 01-10-2022 09:17-0400 Systolic blood pressure 120 mm[Hg] Lew Verduzco MD Work Phone: [facility] 12-14-2021 11:01-0400 Heart rate 103 /min Ermias Solano MD Work Phone: [facility] 12-14-2021 11:01-0400 Respiratory rate 16 /min Ermias Solano MD Work Phone: [facility] 12-14-2021 11:01-0400 SaO2% (BldA) [Mass fraction] 97 % Ermias Solano MD Work Phone: [facility] 11-23-2021 08:51-0400 Body weight 61.24 kg Ellen Wang PA-C Work Phone: [facility] 11-10-2021 10:33-0400 Body weight 61.24 kg Yessica Older CORE MAKER HELPER.GEOSCIENCE LABORATORY TECHNICIAN Work Phone: [facility] 11-10-2021 10:33-0400 Diastolic blood pressure 82 mm[Hg] Yessica Older CORE MAKER HELPER.GEOSCIENCE LABORATORY TECHNICIAN Work Phone: [facility] 11-10-2021 10:33-0400 Heart rate 96 /min Yessica Older CORE MAKER HELPER.GEOSCIENCE LABORATORY TECHNICIAN Work Phone: [facility] 11-10-2021 10:33-0400 Respiratory rate 18 /min Yessica Older CORE MAKER HELPER.GEOSCIENCE LABORATORY TECHNICIAN Work Phone: [facility] 11-10-2021 10:33-0400 Systolic blood pressure 120 mm[Hg] Yessica Older CORE MAKER HELPER.GEOSCIENCE LABORATORY TECHNICIAN Work Phone: [facility] 10-10-2021 08:48-0400 Body weight 60.33 kg Yessica Older CORE MAKER HELPER.GEOSCIENCE LABORATORY TECHNICIAN Work Phone: [facility] 10-10-2021 08:48-0400 Diastolic blood pressure 72 mm[Hg] Yessica Older CORE MAKER HELPER.GEOSCIENCE LABORATORY TECHNICIAN Work Phone: [facility] 10-10-2021 08:48-0400 Heart rate 82 /min Yessica Older CORE MAKER HELPER.GEOSCIENCE LABORATORY TECHNICIAN Work Phone: [facility] 10-10-2021 08:48-0400 Respiratory rate 12 /min Yessica Older CORE MAKER HELPER.GEOSCIENCE LABORATORY TECHNICIAN Work Phone: [facility] 10-10-2021 08:48-0400 Systolic blood pressure 122 mm[Hg] Yessica Older CORE MAKER HELPER.GEOSCIENCE LABORATORY TECHNICIAN Work Phone: [facility] 08-17-2021 10:38-0400 Body weight 58.51 kg Yesica Goddard MD Work Phone: [facility] 08-17-2021 10:38-0400 Diastolic blood pressure 80 mm[Hg] Yesica Goddard MD Work Phone: [facility] 08-17-2021 10:38-0400 Heart rate 93 /min Yesica Goddard MD Work Phone: [facility] 08-17-2021 10:38-0400 SaO2% (BldA) [Mass fraction] 96 % Yesica Goddard MD Work Phone: [facility] 08-17-2021 10:38-0400 Systolic blood pressure 124 mm[Hg] Yesica Goddard MD Work Phone: [facility] 08-17-2021 10:23-0400 Body height 152.4 cm Respiratory Wstr Work Phone: [facility] 08-17-2021 10:23-0400 Body weight 58.51 kg Respiratory Wstr Work Phone: [facility] 08-17-2021 10:23-0400 Heart rate 93 /min Respiratory Wstr Work Phone: [facility] 08-17-2021 10:23-0400 Respiratory rate 14 /min Respiratory Wstr Work Phone: [facility] 08-17-2021 10:23-0400 SaO2% (BldA) [Mass fraction] 96 % Respiratory Wstr Work Phone: [facility] Encounters Encounter Date Encounter Type Care Provider Facility Start: 03-17-2025 Encounter for other preprocedural examination Wolf Sobeida Jewell [facility] Start: 03-17-2025 ambulatory Edda D Talampas Facilit y:[facility] [place] [place] Start: 03-17-2025 ambulatory Edda D Talampas Facilit y:[facility] Start: 03-16-2025 End: 03-16-2025 ambulatory Edda D Talampas Facility:[facility] [place] [place] Start: 03-03-2025 End: 03-03-2025 ambulatory EDDA TALAMPAS Facility:[facility] Start: 03-03-2025 End: 03-03-2025 ambulatory EDDA TALAMPAS Facility:[facility] Start: 03-01-2025 End: 03-01-2025 ambulatory Edda D Talampas Facility:[facility] [place] [place] Start: 02-17-2025 End: 02-17-2025 ambulatory ANA CRISTINA URBINA Facility:[facility] Start: 02-12-2025 End: 02-12-2025 ambulatory Samuel Mazariegos Facility:[facility] Start: 02-09-2025 End: 02-09-2025 Emergency department patient visit TAMIKO KATHI [facility] Start: 01-14-2025 End: 01-14-2025 Patient encounter procedure Hugo Thomason DO -[facility] Work Phone: Start: 01-14-2025 End: 01-15-[address] Edda Oconnor MD Work Phone: -[facility] Comment on above: Refill Request; Refe rral Request Start: 12-23-2024 Non-patient / Non-visit Magdalena cortés [employer] -[facility] Start: 12-23-2024 End: 12-31-[address] Edda Oconnor MD Work Phone: [facility] Start: 12-23-2024 End: 12-31-2024 Discharged Recurring Magdalena Whaley [employer] Work Phone: Start: 12-16-2024 Non-patient / Non-visit Magdalena cortés [employer] -[facility] Start: 12-09-2024 Non-patient / Non-visit Magdalena cortés [employer] -[facility] Start: 12-02-2024 Non-patient / Non-visit Magdalena cortés [employer] -[facility] Start: 12-02-2024 End: 12-03-[address] Edda Oconnor MD Work Phone: [facility] Start: 12-02-2024 End: 12-03-2024 Discharged Recurring Magdalena Whaley [employer] -[facility] Work Phone: Start: 11-27-2024 End: 11-27-2024 Telephone encounter Edda Oconnor MD Work Phone: [facility] [place] Start: 11-25-2024 End: 11-25-2024 ambulatory Edda Oconnor MD Work Phone: [facility] [place] Comment on above: Results Start: 11-25-2024 End: 11-25-2024 E-mail encounter from caregiver Edda Oconnor MD Work Phone: [facility] [place] Start: 11-25-2024 Non-patient / Non-visit Magdalena cortés [employer] -[facility] Start: 11-20-2024 End: 11-20-2024 Refill Mary Lou Nicholson MD Work Phone: [facility] Comment on above: Intra-abdominal and pelvic swelling, mass and lump, unspecified site [R19.00] Start: 11-18-2024 Non-patient / Non-visit Magdalena cortés [employer] -[facility] Start: 11-17-2024 End: 11-17-2024 Office outpatient visit 25 minutes Ana Cristina Urbina APRN.GEOSCIENCE LABORATORY TECHNICIAN Work Phone: [facility] Comment on above: Severe persistent as thma without complication (HCC) (Primary Dx); Acute recurrent sinusitis, unspecified location; Multiple allergies Start: 11-17-2024 End: 11-17-2024 Patient encounter procedure [facility] Work Phone: [facility] Start: 11-17-2024 End: 11-17-2024 ambulatory [facility] Work Phone: [facility] Comment on above: Spirometry Start: 11-11-2024 Non-patient / Non-visit Magdalena cortés [employer] -[facility] Start: 11-10-2024 End: 11-10-2024 Telephone encounter Nuno Benson APRN.GEOSCIENCE LABORATORY TECHNICIAN Work Phone: [facility] [place] Comment on above: Swelling Start: 11-09-2024 End: 01-09-2025 Follow-up encounter Nuno Benson APRN.GEOSCIENCE LABORATORY TECHNICIAN Work Phone: [facility] [place] Start: 11-09-2024 End: 11-09-2024 Telephone encounter Nuno Benson APRN.GEOSCIENCE LABORATORY TECHNICIAN Work Phone: [facility] Comment on above: Patient Question (Rx for yeast infection / from antibiotic) Start: 11-04-2024 End: 11-04-2024 Patient encounter procedure Nuno Benson APRN.GEOSCIENCE LABORATORY TECHNICIAN Work Phone: Internal Medicine [place] Comment on above: Intra-abdominal and pelvic swelling, mass and lump, unspecified site (Primary Dx); Other specified disorders of kidney and ureter; Pancreatic cyst (HCC); Renal cyst; Wound of left lower extremity, subsequent encounter; Swelling of left lower extremity; Pain in left ankle and joints of left foot; Encounter for removal of sutures Start: 11-04-2024 End: 11-04-2024 ambulatory EDDA OCONNOR Facility:[facility] Start: 11-03-2024 Non-patient / Non-visit Dr. Erika norman MD -[facility] Work Phone: Start: 11-02-2024 End: 11-02-2024 Telephone encounter Nuno Benson APRN.CNP Work Phone: Family [facility] [place] Start: 11-02-2024 [facility] Facility: [facility] Start: 11-02-2024 End: 11-02-2024 Subsequent hospital visit by physician Xr [facility] [place] Work Phone: Radiology Comment on above: Wound of left lower extremity, subsequent encounter [S81.802D] Start: 11-02-2024 End: 11-02-2024 Patient encounter procedure Nuno Benson APRN.GEOSCIENCE LABORATORY TECHNICIAN Work Phone: Internal Medicine [place] Comment on above: Wound of left lower extremity, subsequent encounter (Primary Dx); Swelling of left lower extremity; Pain in left ankle and joints of left foot; Encounter for removal of sutures Start: 11-02-2024 End: 11-02-2024 [facility] Facility:[facility] Start: 10-29-2024 End: 10-29-2024 Refill Maria Teresa Edwards APRN.WOVEN LABEL DESIGNER Work Phone: Internal Medicine [place] Comment on above: Refill Request Start: 10-26-2024 End: 10-26-2024 Patient encounter procedure Nuno Benson APRN.GEOSCIENCE LABORATORY TECHNICIAN Work Phone: Internal Medicine [place] Comment on above: Grief reaction (Prim tim Dx); Anxiety and depression; Sleep disturbance; Wound of right lower extremity, subsequent encounter; Abdominal wall bulge Start: 10-26-2024 End: 10-26-2024 [facility] Facility:[facility] Start: 10-22-2024 End: 10-22-2024 Emergency department patient visit Dr. Edda Oconnor MD Work Phone: -Emergency Department Work Phone: Start: 10-08-2024 [facility] Facility: [facility] Start: 10-08-2024 End: 10-08-2024 Subsequent hospital visit by physician Mri Radio [facility] (I-Stat/1.5t) Work Phone: Radiology Start: 09-21-2024 End: 09-21-2024 Admission to same day surgery center Dr. Aryan Bianchi MD -[facility] Start: 09-21-2024 End: 09-21-[address] Edda Oconnor MD Work Phone: [facility] Work Phone: Start: 09-14-2024 End: 09-15-2024 Refill Edda Oconnor MD Work Phone: Internal Medicine [place] Comment on above: Refill Request Start: 08-18-2024 End: 09-18-2024 ambulatory Edda Oconnor MD Work Phone: Internal Medicine [place] Start: 07-20-2024 End: 07-20-2024 Admission to same day surgery center Dr. Aryan Bianchi MD -[facility] Start: 07-20-2024 End: 07-20-[address] Nory Coker DO Work Phone: [facility] Work Phone: Start: 07-03-2024 End: 07-03-2024 Orders Only Ana Cristina Urbina APRN.GEOSCIENCE LABORATORY TECHNICIAN Work Phone: Pulmonary Medicine Start: 06-18-2024 End: 06-18-2024 ambulatory Pulm Lab [facility] Work Phone: PULM LAB [facility] Comment on above: Spirometry Start: 06-18-2024 End: 06-18-2024 Patient encounter procedure Pulm Lab [facility] Work Phone: [facility] Comment on above: Severe persistent as thma without complication (Primary Dx); Thrush; Multiple allergies Start: 06-16-2024 ambulatory Edda Jones y:[facility] Start: 06-08-2024 End: 06-08-[address] Doron Kee MD -[facility] Start: 06-08-2024 End: 06-08-2024 ambulatory Edda Pereira Benigno Facility:[facility] [place] [place] Start: 05-26-2024 End: 05-26-2024 Telephone encounter Edda Oconnor MD Work Phone: Internal Medicine [place] Comment on above: Patient Request Start: 05-11-2024 End: 05-11-2024 ambulatory EDDA OCONNOR Facility:[facility] Start: 05-11-2024 End: 05-11-2024 Office outpatient visit 25 minutes Checo Bell MD Work Phone: [facility] Comment on above: URI, acute (Primary Dx); Exposure to confirmed case of COVID-19; Thrush; Asthma with chronic obstructive pulmonary disease (COPD) ([facility]) Start: 05-04-2024 End: 05-04-2024 [facility] EDDA OCONNOR Facility:[facility] Start: 05-04-2024 End: 05-04-2024 Office outpatient visit 25 minutes Edda Oconnor MD Work Phone: Internal Medicine [place] Comment on above: Acute non-recurrent maxillary sinusitis (Primary Dx); Acute bronchitis with chronic obstructive pulmonary disease (COPD) (HCC) ([facility]); Anxiety and depression; Chronic midline low back pain with left-sided sciatica; Degeneration of intervertebral disc of lumbar region with discogenic back pain and lower extremity pain; Sore throat; Acute cough; Acute ear pain, right; Loss of taste; Loss of smell; Vitamin D deficiency; Pure hypercholesterolemia; Gastroesophageal reflux disease without esophagitis Start: 04-25-2024 End: 04-25-2024 [facility] Start: 04-23-2024 End: 04-23-2024 Patient encounter procedure Jasmin MONTANO -Radiology, [address] Work Phone: Start: 04-23-2024 ambulatory Edda Bestyolis Facilit y:[facility] [place] [place] Start: 04-23-2024 End: 04-23-2024 ambulatory Edda D Benigno Facility:[facility] Start: 04-21-2024 End: 04-21-2024 Orders Only Edda Oconnor MD Work Phone: Internal Medicine [place] Comment on above: Vitamin D deficiency (Primary Dx); Pure hypercholesterolemia; Elevated hemoglobin A1c; Encounter for long-term current use of medication Start: 04-04-2024 End: 04-04-2024 Emergency department patient visit Dr. Nory Coker DO -Emergency Department Work Phone: Start: 04-03-2024 End: 04-09-2024 ambulatory Edda Oconnor MD Work Phone: Internal Medicine [place] Comment on above: Bad BACK pain Start: 03-24-2024 End: 03-24-2024 Office outpatient visit 40 minutes Ana Cristina Urbina CORE MAKER HELPER.GEOSCIENCE LABORATORY TECHNICIAN Work Phone: Pulmonary Medicine Comment on above: Severe persistent as thma without complication (Primary Dx); Acute recurrent sinusitis, unspecified location; Nasal polyposis Start: 03-24-2024 End: 03-24-2024 ambulatory Pulm Lab [facility] Work Phone: PULM LAB [facility] Comment on above: Spirometry Start: 03-24-2024 End: 03-24-2024 Patient encounter procedure Pulm Lab [facility] Work Phone: PUL[facility] LAB [facility] Start: 03-17-2024 End: 03-17-2024 ambulatory EDDA OCONNOR Facility:[facility] Start: 03-17-2024 End: 03-17-2024 Patient encounter procedure Nuno Benson CORE MAKER HELPER.GEOSCIENCE LABORATORY TECHNICIAN Work Phone: Internal Medicine [place] Comment on above: Acute non-recurrent frontal sinusitis (Primary Dx) Start: 03-16-2024 End: 03-16-2024 Refill Edda Oconnor MD Work Phone: Internal Medicine [place] Comment on above: Refill Request Start: 01-23-2024 End: 01-23-2024 Refill Edda Oconnor MD Work Phone: [address] [place] [address] Comment on above: Refill Request Start: 01-21-2024 End: 01-21-2024 Refill Edda Oconnor MD Work Phone: Internal Medicine [place] Comment on above: Refill Request Start: 01-17-2024 End: 01-17-2024 ambulatory Pulm Lab [facility] Work Phone: PULM LAB [facility] Comment on above: Spirometry Start: 01-17-2024 End: 01-17-2024 Patient encounter procedure Pulm Lab [facility] Work Phone: [facility] Comment on above: Severe persistent as thma without complication (Primary Dx); Chronic sinusitis, unspecified location; Nasal polyposis Start: 01-13-2024 End: 01-13-2024 Refill Edda Oconnor MD Work Phone: Internal Medicine [place] Comment on above: Refill Request Start: 12-04-2023 Refill Ellen Julian PA-C Work Phone: Pulmonary Medicine Comment on above: Refill Request Start: 11-23-2023 Refill Edda delatorre MD Work Phone: Internal Medicine [place] Comment on above: Refill Request Start: 11-14-2023 Refill Edda delatorre MD Work Phone: Family Medicine [place] Comment on above: Refill Request Start: 11-11-2023 Refill Edda delatorre MD Work Phone: Internal Medicine [place] Comment on above: Refill Request Start: 11-06-2023 Telephone encounter Nuno wheeler APRN.GEOSCIENCE LABORATORY TECHNICIAN Work Phone: Internal Medicine [place] Comment on above: Results Start: 11-04-2023 Refill Edda delatorre MD Work Phone: Internal Medicine [place] Comment on above: Refill Request Start: 11-01-2023 End: 11-01-2023 Subsequent hospital visit by physician Anupam [facility] [place] Work Phone: Radiology Comment on above: Lumbar pain [M54.50] Start: 11-01-2023 End: 11-01-2023 Patient encounter procedure Nuno Benson APRN.GEOSCIENCE LABORATORY TECHNICIAN Work Phone: Internal Medicine [place] Comment on above: Chronic sinusitis, u nspecified location (Primary Dx); Lumbar pain; Menopause syndrome; Asthma with chronic obstructive pulmonary disease (COPD) ([facility]); Anxiety and depression; Caregiver stress syndrome Start: 09-18-2023 ambulatory Edda delatorre MD Work Phone: Internal Medicine [facility] Start: 07-11-2023 End: 07-11-2023 Patient encounter procedure Mary Lou Nicholson MD Work Phone: Pulmonary Medicine Comment on above: Moderate persistent asthma without complication (Primary Dx); Chronic maxillary sinusitis Start: 07-04-2023 Refill Edda delatorre MD Work Phone: Internal Medicine [place] Comment on above: Refill Request Start: 07-02-2023 Telephone encounter Ellen Wang PA-C Work Phone: Pulmonary Medicine Comment on above: Medication Problem Start: 06-28-2023 End: 06-28-2023 ambulatory [facility] Work Phone: Start: 06-28-2023 End: 06-28-2023 Patient encounter procedure [facility]-Laboratory, Specimen Work Phone: Start: 05-01-2023 End: 05-01-2023 Office outpatient visit 40 minutes Edda Oconnor MD Work Phone: Internal Medicine [place] Comment on above: Anxiety and depressi on (Primary Dx); Other acute recurrent sinusitis; Vitamin D deficiency; Pure hypercholesterolemia; Elevated hemoglobin A1c; Osteopenia, unspecified location; Acute vaginitis; Lesion of skin of nose; Encounter for therapeutic drug monitoring Start: 02-04-2023 Telephone encounter Edda charles MD Work Phone: Internal Medicine [place] Comment on above: Allergic Reaction; V aginal Problem Start: 01-30-2023 Telephone encounter Melanie Hutchinson Start: 01-18-2023 End: 01-18-2023 Patient encounter procedure Jenny Salas APRN.CNP Work Phone: [facility] Comment on above: Chronic sinusitis, u nspecified location (Primary Dx); Allergic reaction to drug, initial encounter Start: 01-17-2023 ambulatory Viji Garcia MD Work Phone: Allergy Comment on above: Please attach photos of rash. Start: 01-17-2023 E-mail encounter fro m caregiver Viji Garcia MD Work Phone: [facility] Start: 01-17-2023 Telephone encounter Viji lechuga MD Work Phone: Allergy Comment on above: new onset rash Start: 01-08-2023 Office outpatient ne w 60 minutes Ellen VARGASC Work Phone: [facility] Work Phone: Start: 01-08-2023 End: 01-08-2023 Patient encounter procedure Viji Garcia MD Work Phone: Allergy Comment on above: Chronic sinusitis, u nspecified location (Primary Dx); Nonallergic rhinitis; [id number] adverse effect of medication, initial encounter; Moderate persistent asthma without complication; Aspirin-sensitive asthma with nasal polyps Start: 01-02-2023 End: 01-02-2023 Patient encounter procedure Nuno Benson APRN.CNP Work Phone: Internal Medicine [place] Comment on above: Anxiety and depressi on (Primary Dx); Caregiver stress syndrome; Menopause syndrome; Unintended weight gain; Encounter for therapeutic drug monitoring; BMI 28.0-28.9,adult Start: 12-03-2022 End: 12-03-2022 Patient encounter procedure Ellen VARGASC Work Phone: Pulmonary Medicine Comment on above: Asthma, moderate per sistent, well-controlled (Primary Dx); Allergic rhinitis, unspecified seasonality, unspecified trigger; Nasal polyposis; Chronic sinusitis, unspecified location Start: 11-19-2022 Refill Ellen HassanC Work Phone: Pulmonary Medicine Comment on above: Refill Request Start: 07-16-2022 Refill Ellen Hernandez-C Work Phone: General Surgery Comment on above: Opened In Error (vianeye sarah in error) Refill Request (fausto chowdhury); Refill Request Medication Problem Start: 07-06-2022 Refill Edda delatorre MD Work Phone: Internal Medicine [place] Comment on above: Refill Request; Refi ll Request Start: 06-22-2022 End: 06-22-2022 Office outpatient visit 15 minutes Edda Oconnor MD Work Phone: Internal Medicine [place] Comment on above: Skin lesion of right leg (Primary Dx); Seborrheic keratosis; Lesion of skin of nose Start: 06-04-2022 End: 06-04-2022 ambulatory Pulm Lab [facility] Work Phone: PULM LAB [facility] Comment on above: Spirometry Start: 06-04-2022 End: 06-04-2022 Patient encounter procedure Pulm Lab [facility] Comment on above: Mild persistent asth ma without complication (Primary Dx); Nasal polyposis Start: 05-14-2022 Orders Only Edda delatorre MD Work Phone: Internal Medicine [place] Comment on above: Vitamin D deficiency (Primary Dx); Pure hypercholesterolemia; Encounter for long-term current use of medication Start: 05-08-2022 End: 05-08-2022 Subsequent hospital visit by physician Bone Density [facility] Work Phone: Radiology Comment on above: Asymptomatic postmen opausal status [Z78.0] Start: 05-07-2022 End: 05-07-[address] Lew Verduzco Work Phone: [facility] Work Phone: Start: 05-07-2022 End: 05-07-[address] Lew Verduzco Work Phone: [facility]-Laboratory, Specimen Start: 05-03-2022 End: 05-03-2022 ambulatory ELIA JACOB [facility] Start: 05-03-2022 End: 05-03-2022 Patient encounter procedure Elia Jacob CORE MAKER HELPER.GEOSCIENCE LABORATORY TECHNICIAN Work Phone: [facility] Comment on above: Lumbosacral spondylo sis without myelopathy (Primary Dx); Fibromyalgia; Other chronic pain Start: 04-19-2022 End: 04-19-2022 Office outpatient visit 15 minutes Maria Teresa Edwards STEPHANIE.WOVEN LABEL DESIGNER Work Phone: Internal Medicine [place] Comment on above: Acute vaginitis (Parris krystal Dx) Start: 04-17-2022 ambulatory Nuno Benson CORE MAKER HELPER.GEOSCIENCE LABORATORY TECHNICIAN Work Phone: Internal Medicine [place] Comment on above: Results Start: 04-17-2022 E-mail encounter fro m caregiver Nuno Benson CORE MAKER HELPER.GEOSCIENCE LABORATORY TECHNICIAN Work Phone: [facility] Start: 04-16-2022 ambulatory Edda delatorre MD Work Phone: Internal Medicine [place] Comment on above: Urinary Frequency Start: 03-28-2022 Refill Edda delatorre MD Work Phone: Internal Medicine [place] Start: 03-23-2022 End: 03-23-2022 Subsequent hospital visit by physician Mri Radio [facility] (I-Stat/1.5t) Work Phone: Radiology Comment on above: Lumbar radiculopathy [M54.16] Start: 03-22-2022 End: 03-22-[address] Lew Verduzco Work Phone: [facility] Work Phone: Start: 03-22-2022 End: 03-22-[address] Lew Verduzco Work Phone: [facility], Specimen Start: 03-01-2022 End: 03-01-2022 ambulatory ERMIAS SOLANO [facility] Start: 03-01-2022 End: 03-01-2022 Patient encounter procedure Ermias Solano MD Work Phone: [facility] Comment on above: Lumbosacral spondylo sis without myelopathy (Primary Dx); Lumbar radiculopathy; Spinal stenosis of lumbar region without neurogenic claudication Start: 02-26-2022 E-mail encounter fro m caregiver [facility] Start: 02-26-2022 Letter encounter [facility] Provider [employer] Pipe Fitter al Medicine [place] Comment on above: Letter Start: 02-13-2022 End: 02-13-2022 Admission to same day surgery center [facility] Start: 02-13-2022 End: 02-13-2022 ambulatory [facility] Work Phone: Start: 02-08-2022 End: 02-13-2022 Non-patient / Non-visit Dr. Lew Verduzco Work Phone: [facility] Start: 01-10-2022 Telephone encounter Lew aguilar MD Work Phone: Internal Medicine [place] Comment on above: Insurance Authorizat ion Start: 01-10-2022 End: 01-10-2022 Patient encounter procedure Lew Verduzco MD Work Phone: Internal Medicine [place] Comment on above: Shoulder pain, unspe cified chronicity, unspecified laterality (Primary Dx); DDD (degenerative disc disease), lumbosacral; Fibromyalgia Start: 01-05-2022 Refill Lew saravia MD Work Phone: Internal Medicine [place] Comment on above: Refill Request Start: 12-21-2021 End: 12-21-2021 ambulatory [facility] Work Phone: Start: 12-21-2021 End: 12-21-2021 Patient encounter procedure [facility] Start: 12-14-2021 End: 12-14-2021 ambulatory ERMIAS SOLANO Facility:[facility] Start: 12-14-2021 End: 12-14-2021 Patient encounter procedure Ermias Solano MD Work Phone: [facility] Comment on above: Lumbosacral spondylo sis without myelopathy (Primary Dx); Spinal stenosis, lumbar region, without neurogenic claudication; Lumbar radiculopathy Start: 11-30-2021 Refill Lew saravia MD Work Phone: Internal Medicine [place] Comment on above: Refill Request Start: 11-24-2021 End: 11-24-2021 Patient encounter procedure [facility]-Laboratory, Specimen Start: 11-23-2021 End: 11-23-2021 Patient encounter procedure Ellen Wang PA-C Work Phone: Pulmonary Medicine Comment on above: Asthma, moderate per sistent, well-controlled (Primary Dx); Allergic rhinitis, unspecified seasonality, unspecified trigger; Chronic sinusitis, unspecified location Start: 11-10-2021 End: 11-10-2021 Patient encounter procedure Yessica Older CORE MAKER HELPER.GEOSCIENCE LABORATORY TECHNICIAN Work Phone: Internal Medicine [place] Comment on above: Dysuria (Primary Dx) ; Acute recurrent sinusitis, unspecified location; Anxiety and depression Start: 11-07-2021 Refill Lew saravia MD Work Phone: Internal Medicine [place] Comment on above: Refill Request Start: 10-31-2021 Refill Ellen Julian PA-C Work Phone: Pulmonary Medicine Comment on above: Refill Request Start: 10-30-2021 Refill Ellen Julian PA-C Work Phone: Pulmonary Medicine Comment on above: Refill Request Start: 10-13-2021 Refill Lew saravia MD Work Phone: Internal Medicine [place] Comment on above: Refill Request Start: 10-10-2021 Telephone encounter Ermias Solano MD Work Phone: [facility] [place] Comment on above: Appointment Start: 10-10-2021 End: 10-10-2021 Patient encounter procedure Yessica Older CORE MAKER HELPER.GEOSCIENCE LABORATORY TECHNICIAN Work Phone: Internal Medicine [place] Comment on above: DDD (degenerative di sc disease), lumbar (Primary Dx); Fibromyalgia; Anxiety and depression; Irritable bowel syndrome, unspecified type Start: 09-27-2021 Telephone encounter Yesica kumar MD Work Phone: Pulmonary Medicine Comment on above: Medication Problem Start: 09-21-2021 ambulatory Yesica Goddard MD Work Phone: Pulmonary Medicine Comment on above: Symbicort inhaler Start: 09-14-2021 Telephone encounter Lew aguilar MD Work Phone: Internal Medicine [place] Comment on above: Insurance Authorizat ion Start: 09-04-2021 Documentation procedure Mammog marina Coordinator [facility] Start: 09-04-2021 Letter encounter Mammography Coordinator [facility] Department Start: 09-04-2021 End: 09-04-2021 Subsequent hospital visit by physician Screen Mammo [facility] Mammogram Comment on above: Encounter for screen ing mammogram for breast cancer [Z12.31] Start: 08-25-2021 ambulatory Ellen Julian PA-C Work Phone: Pulmonary Medicine Comment on above: Symacort Start: 08-23-2021 ambulatory Yesica Goddard MD Work Phone: Pulmonary Medicine Comment on above: 08/17/2021fter Visi t Instructions Start: 08-23-2021 E-mail encounter nigel m caregiver Yesica Goddard MD Work Phone: [facility] [employer] Start: 08-17-2021 End: 08-17-2021 ambulatory Respiratory Therapist [facility] Work Phone: Pulmonary Medicine Comment on above: Spirometry Start: 08-17-2021 End: 08-17-2021 Patient encounter procedure Respiratory Therapist [facility] Work Phone: [facility] Comment on above: Asthma with chronic obstructive pulmonary disease (COPD) ([facility]) (Primary Dx); Allergic rhinitis, unspecified seasonality, unspecified trigger; Chronic sinusitis, unspecified location; Asthma, moderate persistent, well-controlled Start: 08-08-2021 ambulatory Yesica Goddard MD Work Phone: Pulmonary Medicine Comment on above: Can't breathe Start: 08-08-2021 Telephone encounter Yesica kumar MD Work Phone: Pulmonary Medicine Comment on above: Patient Question Start: 08-03-2021 ambulatory Lew saravia MD Work Phone: Internal Medicine [place] Comment on above: Medication interacti ons Start: 08-03-2021 E-mail encounter fro m caregiver Lew Verduzco MD Work Phone: [facility] Start: 07-31-2021 Telephone encounter Lew aguilar MD Work Phone: Internal Medicine [place] Comment on above: Referral Request Start: 07-20-2021 ambulatory Yesica Goddard MD Work Phone: Pulmonary Medicine Comment on above: Appeal Start: 07-20-2021 E-mail encounter fro m caregiver Yesica Goddard MD Work Phone: [facility] Procedures Date Procedure Procedure Detail Performing Clinician Start: 11-20-2024 Ct abdomen w/contras t material Nuno Benson CORE MAKER HELPER.GEOSCIENCE LABORATORY TECHNICIAN Work Phone: Start: 11-17-2024 Nitric oxide gas determination Mary Lou Nicholson MD Work Phone: Start: 11-11-[address] Edda Oconnor MD Work Phone: Start: 11-11-2024 Gram stain microscopy D carlota Oconnor MD Work Phone: Start: 11-11-2024 End: 11-11-2024 Microbial culture, routine Dr. Edda conway MD Work Phone: Start: 11-04-2024 REMOVAL SUTURES OR S TAPLES NOT REQUIRING ANESTHESIA Nuno Benson CORE MAKER HELPER.GEOSCIENCE LABORATORY TECHNICIAN Work Phone: Start: 10-22-2024 Plain X-ray of tibia and fibula Dr. Edda Ocononr MD Work Phone: Start: 09-21-[address] Edda Oconnor MD Work Phone: Start: 09-21-2024 Injection of facet joint Dr. Edda Oconnor MD Work Phone: Start: 09-21-2024 Injection of spinal epidural space Dr. Edda Oconnor MD Work Phone: Start: 09-21-2024 X-ray of lumbar spin e, two or three views Dr. Edda Oconnor MD Work Phone: Start: 07-20-2024 Local anesthetic sac ral epidural block Dr. Nory Coker DO Work Phone: Start: 07-20-2024 Injection of spinal epidural space Dr. Edda Oconnor MD Work Phone: Start: 07-20-2024 Injection using fluoroscopic guidance Dr. Edda Oconnor MD Work Phone: Start: 06-18-2024 Nitric oxide gas determination Ana Cristina Urbina APRN.GEOSCIENCE LABORATORY TECHNICIAN Work Phone: Start: 06-08-2024 Plain x-ray of pelvi s and lower extremity Dr. Nory Coker DO Work Phone: Start: 04-25-2024 Lipid 1995 panel - S sergio or Plasma Edda Oconnor MD Work Phone: Start: 04-23-2024 X-ray of lumbosacral spine Dr. Nory Coker DO Work Phone: Start: 03-24-2024 Nitric oxide gas determination Mary Lou Nicholson MD Work Phone: Start: 01-17-2024 Nitric oxide gas determination Mary Lou Nicholson MD Work Phone: Start: 11-01-2023 Radex spine lumbosac ral 2/3 views Nuno Benson APRN.GEOSCIENCE LABORATORY TECHNICIAN Work Phone: Start: 06-28-2023 Investigation of transfusion reaction Start: 06-28-2023 Nasopharyngeal Culture Start: 05-11-2023 Lipid 1996 panel - S sergio or Plasma Edda Oconnor MD Work Phone: Start: 01-08-2023 ALLERGEN SKIN TEST-PENICILLIN Viji Garcia MD Work Phone: Start: 01-08-2023 INHALANT 32 ALLERGEN SKIN TEST Viji Garcia MD Work Phone: Start: 07-04-2022 Lipid 1996 panel - S sergio or Plasma Viji Garcia MD Work Phone: Start: 06-04-2022 Nitric oxide gas determination Ellen Wang PA-C Work Phone: Start: 06-04-2022 Spmtry w/vc expirato ry patrica w/wo mxml vol vntj Ellen Wang PA-C Work Phone: Start: 05-08-2022 Dxa bone density micah dy 1/> sites axial tammieel Edda Oconnor MD Work Phone: Start: 03-23-2022 Mri spinal canal lum bar w/o contrast material Ermias Solano MD Work Phone: Start: 02-13-2022 Functional Endoscopo ic Sinus Surgery (Not Applicable) Start: 12-21-2021 CT of face Start: 11-10-2021 Urnls dip stick/tabl et rgnt auto w/o microscopy Yessica Older CORE MAKER HELPER.GEOSCIENCE LABORATORY TECHNICIAN Work Phone: Start: 09-04-2021 End: 09-04-2021 Screening mammography bi 2-view breast inc cad Lew Verduzco MD Work Phone: Start: 08-17-2021 Nitric oxide gas determination Ellen Wang PA-C Work Phone: Start: 08-17-2021 Spmtry w/vc expirato ry patrica w/wo mxml vol vntj Ellen Wang PA-C Work Phone: Start: 06-20-2020 Mammography Lew Summers MD Work Phone: Start: 04-07-2018 Colonoscopy Lew Summers MD Work Phone: Investigation of transfusion reaction Investigation of transfusion reaction Dr. Lew Verduzco Work Phone: Investigation of transfusion reaction Dr. Lew Verduzco Work Phone: Nasopharyngeal Culture Nasopharyngeal Culture Dr. Wilmer Verduzco Work Phone: Nasopharyngeal Culture Dr. Wilmer Verduzco Work Phone: Plan of Treatment Date Care Activity Detail Author Start: 08-29-2030 Urine microalbumin profile [facility] Start: 04-25-2029 Lipid panel Lipid Screening [facility] Start: 05-11-2028 Lipid panel Lipid Screening [facility] Start: 07-05-2027 Lipid 1996 panel - Serum or Plasma Lipid Screening [facility] Start: 07-05-2027 LIPID SCREEN LIPID SCREEN [facility] Start: 04-25-2027 Diabetes Screening Diabetes Screening [facility] Start: 04-10-2027 LIPID SCREEN LIPID SCREEN [facility] Start: 06-20-2026 LIPID SCREEN LIPID SCREEN [facility] Start: 05-11-2026 Diabetes Screening Diabetes Screening [facility] Start: 01-02-2026 DIABETES SCREEN DIABETES SCREEN [facility] Start: 01-02-2026 Diabetes Screening Diabetes Screening [facility] Start: 11-04-2025 Annual PCP Team Chronic Disease Visit Annual PCP Team Chronic Disease Visit [facility] Start: 11-02-2025 Annual PCP Team Chronic Disease Visit Annual PCP Team Chronic Disease Visit [facility] Start: 10-26-2025 Annual PCP Team Chronic Disease Visit Annual PCP Team Chronic Disease Visit [facility] Start: 07-04-2025 DIABETES SCREEN DIABETES SCREEN [facility] Start: 05-04-2025 Annual PCP Team Chronic Disease Visit Annual PCP Team Chronic Disease Visit [facility] Start: 04-10-2025 DIABETES SCREEN DIABETES SCREEN [facility] Start: 03-17-2025 Annual PCP Team Chronic Disease Visit Annual PCP Team Chronic Disease Visit [facility] Start: 02-17-2025 End: 02-17-2025 Patient encounter procedure Pulmonary Medicine Comment on above: 3 MTH F/U ASTHMA Start: 02-17-2025 End: 02-17-2025 ambulatory 02/17/2025 11:15 AM EDT Procedure PULM LAB [facility] [address] [place] [address] Wstr, Pulm Lab [facility] [address] [place] [address] [place] PULM LAB [facility] Comment on above: [place] Start: 01-04-2025 Influenza vaccination [facility] Start: 11-20-2024 End: 11-20-2024 Patient encounter procedure Cat Scan Comment on above: Intra-abdominal and pelvic swelling, mas s and lump, unspecified site [R19.00] Start: 11-17-2024 End: 11-17-2024 Patient encounter procedure 11/17/2024 1:30 PM EDT Office Visit Pulmonary Medicine [address] [place] [address] Ana Cristina Urbina APRN.GEOSCIENCE LABORATORY TECHNICIAN [address] [place] [address] 4 month f/u Pulmonary Medicine Comment on above: 4 month f/u Start: 11-17-2024 End: 11-17-2024 ambulatory 11/17/2024 1:15 PM EDT Procedure PULM LAB [facility] [address] [place] [address] Wstr, Pulm Lab [facility] [address] [place] [address] Severe persistent asthma without complication [J45.50] [facility]UL[facility] LAB [facility] Comment on above: Severe persistent asthma without complic ation [J45.50] Start: 11-04-2024 End: 11-04-2024 Patient encounter procedure 11/04/2024 2:20 PM EDT Office Visit [facility] [address] [place] [address] Nuno eBnson APRN.GEOSCIENCE LABORATORY TECHNICIAN [address] [place] [address] wound follow up and suture removal [facility] Comment on above: wound follow up and suture removal Start: 11-04-2024 End: 02-03-2025 Creatinine and Glomerular filtration rate.predicted panel - Serum, Plasma or Blood [facility] Comment on above: Expected: 11/04/2024, Expires: Start: 11-02-2024 End: 11-02-2024 Patient encounter procedure Internal Med [facility] Comment on above: follow up 6 months laceration follow up Start: 10-31-2024 Annual PCP Team Chronic Disease Visit Annual PCP Team Chronic Disease Visit [facility] Start: 10-22-2024 [facility] Start: 10-22-2024 Simple rpr scalp/neck/ax/genit/trunk 7.6-12.5cm RPR S/N/AX/GEN/TRK7.6-12.5CM [facility] Start: 10-21-2024 End: 10-21-2024 Patient encounter procedure 10/21/2024 9:30 AM EDT Office Visit Pulmonary Medicine [address] [place] [address] Ana Cristina Urbina, CORE MAKER HELPER.GEOSCIENCE LABORATORY TECHNICIAN [address] [place] [address] 4 month f/u Pulmonary Medicine Comment on above: 4 month f/u Start: 10-21-2024 End: 10-21-2024 ambulatory 10/21/2024 9:15 AM EDT Procedure [facility] [address] [place] [address] [facility], Pulm Lab [facility] [address] [place] [address] Severe persistent asthma without complication [J45.50] [facility] LAB [facility] Comment on above: Severe persistent asthma without complic ation [J45.50] Start: 10-16-2024 End: 10-16-2024 Patient encounter procedure 10/16/2024 9:00 AM EDT Office Visit Pulmonary Medicine [address] [place] [address] Ana Cristina Urbina, CORE MAKER HELPER.GEOSCIENCE LABORATORY TECHNICIAN [address] [place] [address] 4 month f/u Pulmonary Medicine Comment on above: 4 month f/u Start: 10-16-2024 End: 10-16-2024 ambulatory 10/16/2024 8:45 AM EDT Procedure PULM LAB [facility] [address] [place] [address] Wstr, Pulm Lab [facility] [address] [facility] [place] [place] [address] Severe persistent asthma without complication [J45.50] PULM LAB [facility] Comment on above: Severe persistent asthma without complic ation [J45.50] Start: 09-21-2024 Njx anes&/strd w/img tfrml edrl lmbr/sac ea lv NJX AA&/STRD TFRM EPI L/S EA [facility] Start: 09-21-2024 Injection of facet joint [facility] Start: 09-21-2024 Injection of spinal epidural space [facility] Start: 09-21-2024 X-ray of lumbar spine, two or three views Lumbar Spine 2 or 3 Views [facility] Start: 09-21-2024 Patient discharge [facility] Start: 07-20-2024 Njx dx/ther sbst intrlmnr lmbr/sac w/img gdn NJX INTERLAMINAR LMBR/SAC [facility] Start: 07-20-2024 Injection of spinal epidural space [facility] Start: 07-20-2024 Injection using fluoroscopic guidance [facility] Start: 07-20-2024 Patient discharge [facility] Start: 06-18-2024 End: 06-18-2024 Patient encounter procedure 06/18/2024 11:45 AM EST Office Visit Pulmonary Medicine [address] [place] [address] Mary Lou Nicholson MD [address] [place] [address] 3 month f/u Pulmonary Medicine Comment on above: 3 month f/u Start: 06-18-2024 End: 06-18-2024 ambulatory 06/18/2024 11:30 AM EST Procedure PULM LAB [facility] [address] [place] [address] Wstr, Pulm Lab [facility] [address] [facility] [place] [place] [address] Severe persistent asthma without complication [J45.50] PULM LAB [facility] Comment on above: Severe persistent asthma without complic ation [J45.50] Start: 05-06-2024 Medicare [facility] Annual Wellness Visit Medicare [facility] Annual Wellness Visit [facility] Start: 05-04-2024 End: 05-04-2024 Patient encounter procedure 05/04/2024 8:40 AM EST Office Visit [facility] Medicine [place] [address] [place] [address] Edda Oconnor MD [address] [place] [address] 6 month follow up [facility] Comment on above: 6 month follow up Start: 05-01-2024 Annual PCP Team Chronic Disease Visit Annual PCP Team Chronic Disease Visit [facility] Start: 05-01-2024 Covid-19 Vaccine (#1) Covid-19 Vaccine (#1) [facility] Comment on above: Postponed from 07/02/1961 (Declined at t his time) Start: 05-01-2024 Covid-19 Vaccine () Covid-19 Vaccine () [facility] Comment on above: Postponed from 01/04/2023 (Declined at t his time) Start: 04-21-2024 End: 07-21-2024 25-hydroxyvitamin D3 [Mass/volume] in Serum or Plasma VITAMIN D 25 HYDROXY Lab Routine Vitamin D deficiency Encounter for long-term current use of medication Expected: 04/21/2024, Expires: 07/21/2024 [facility] Comment on above: Expected: 04/21/2024, Expires: Start: 04-21-2024 End: 07-21-2024 CBC panel - Blood by Automated count COMPLETE BLOOD COUNT Lab Routine Encounter for long-term current use of medication Expected: 04/21/2024, Expires: 07/21/2024 [facility] Comment on above: Expected: 04/21/2024, Expires: Start: 04-21-2024 End: 07-21-2024 Comprehensive metabolic 2000 panel - Serum or Plasma COMPREHENSIVE METABOLIC PANEL Lab Routine Elevated hemoglobin A1c Encounter for long-term current use of medication Expected: 04/21/2024, Expires: 07/21/2024 [facility] Comment on above: Expected: 04/21/2024, Expires: Start: 04-21-2024 End: 07-21-2024 Hemoglobin A1c in Blood HEMOGLOBIN A1C Lab Routine Elevated hemoglobin A1c Encounter for long-term current use of medication Expected: 04/21/2024, Expires: 07/21/2024 [facility] Work Phone: Comment on above: Expected: 04/21/2024, Expires: Start: 04-21-2024 End: 07-21-2024 Lipid 1996 panel - Serum or Plasma LIPID PANEL BASIC Lab Routine Pure hypercholesterolemia Encounter for long-term current use of medication Expected: 04/21/2024, Expires: 07/21/2024 [facility] Comment on above: Expected: 04/21/2024, Expires: Start: 04-21-2024 End: 07-21-2024 Magnesium [Mass/volume] in Serum or Plasma MAGNESIUM Lab Routine Encounter for long-term current use of medication Expected: 04/21/2024, Expires: 07/21/2024 [facility] Comment on above: Expected: 04/21/2024, Expires: Start: 04-04-2024 [facility] Start: 03-24-2024 End: 03-24-2024 Patient encounter procedure 03/24/2024 10:00 AM EST Office Visit Pulmonary Medicine [address] [place] [address] Ana Cristina Urbina APRN.GEOSCIENCE LABORATORY TECHNICIAN [address] [place] [address] 2 MTH F/U ASTHMA Pulmonary Medicine Comment on above: 2 MTH F/U ASTHMA Start: 03-24-2024 End: 03-24-2024 ambulatory 03/24/2024 9:45 AM EST Procedure PULM LAB [facility] [address] [place] [address] Wstr, Pulm Lab [facility] [address] [place] [address] ASTHMA PULM LAB [facility] Comment on above: ASTHMA Start: 03-18-2024 End: 03-18-2024 Patient encounter procedure 03/18/2024 2:00 PM EST Office Visit Pulmonary Medicine [address] [place] [address] Ana Cristina Urbina APRN.GEOSCIENCE LABORATORY TECHNICIAN [address] [place] [address] 2 MTH F/U ASTHMA Pulmonary Medicine Comment on above: 2 MTH F/U ASTHMA Start: 03-18-2024 End: 03-18-2024 ambulatory 03/18/2024 1:45 PM EST Procedure PULM LAB [facility] [address] [place] [address] Wstr, Pulm Lab [address] [place] [address] ASTHMA PULM LAB [facility] Comment on above: ASTHMA Start: 01-31-2024 Annual PCP Team Chronic Disease Visit Annual PCP Team Chronic Disease Visit [facility] Start: 01-17-2024 End: 01-17-2024 Patient encounter procedure 01/17/2024 11:45 AM EDT Office Visit Pulmonary Medicine [address] [place] [address] Mary Lou Nicholson MD [address] [place] [address] 6 month f/u Pulmonary Medicine Comment on above: 6 month f/u Start: 01-17-2024 End: 01-17-2024 ambulatory 01/17/2024 11:15 AM EDT Procedure PULM LAB [facility] [address] [place] [address] Wstr, Pulm Lab [facility] [address] [place] [address] Moderate persistent asthma without complication [J45.40] PULM LAB [facility] Comment on above: Moderate persistent asthma without compl ication [J45.40] Start: 01-05-2024 Covid-19 Vaccine ( season) Covid-19 Vaccine ( season) [facility] Start: 01-05-2024 Covid-19 Vaccine ( season) Covid-19 Vaccine () [facility] Start: 01-05-2024 Influenza vaccination [facility] Start: 01-03-2024 ANNUAL PCP TEAM CHRONIC DISEASE VISIT ANNUAL PCP TEAM CHRONIC DISEASE VISIT [facility] Start: 11-03-2023 Influenza vaccination Influenza Vaccine (#1) [facility] Comment on above: Postponed from 01/04/2023 (Declined at t his time) Start: 11-01-2023 End: 11-01-2023 Patient encounter procedure 11/01/2023 9:00 AM EDT Office Visit [facility] [place] [address] [place], [place] [id number] Nuno Benson APRN.GEOSCIENCE LABORATORY TECHNICIAN [address] [place], [place] [id number] 6 Month follow up [facility] [place] Comment on above: 6 Month follow up Start: 10-24-2023 ANNUAL PCP TEAM CHRONIC DISEASE VISIT ANNUAL PCP TEAM CHRONIC DISEASE VISIT [facility] Start: 06-22-2023 ANNUAL PCP TEAM CHRONIC DISEASE VISIT ANNUAL PCP TEAM CHRONIC DISEASE VISIT [facility] Start: 04-07-2023 ANNUAL PCP TEAM CHRONIC DISEASE VISIT ANNUAL PCP TEAM CHRONIC DISEASE VISIT [facility] Start: 04-07-2023 Colonoscopy COLONOSCOPY [facility] Start: 04-07-2023 COLORECTAL CANCER SCREENING COLORECTAL CANCER SCREENING [facility] Start: 04-07-2023 Screening for malignant neoplasm of colon [facility] Start: 01-10-2023 ANNUAL PCP TEAM CHRONIC DISEASE VISIT ANNUAL PCP TEAM CHRONIC DISEASE VISIT [facility] Start: 01-04-2023 Influenza vaccination [facility] Start: 01-02-2023 End: 03-04-2023 CBC W Auto Differential panel - Blood [facility] Work Phone: Comment on above: Expected: 01/02/2023, Expires: Start: 01-02-2023 End: 03-04-2023 Comprehensive metabolic 2000 panel - Serum or Plasma [facility] Work Phone: Comment on above: Expected: 01/02/2023, Expires: 3 Start: 01-02-2023 End: 03-04-2023 Hemoglobin A1c in Blood [facility] Work Phone: Comment on above: Expected: 01/02/2023, Expires: 3 Start: 01-02-2023 End: 03-04-2023 Thyrotropin [Units/volume] in Serum or Plasma [facility] Work Phone: Comment on above: Expected: 01/02/2023, Expires: 3 Start: 12-03-2022 End: 02-02-2023 IgE [Units/volume] in Serum or Plasma [facility] Work Phone: Comment on above: Expected: 12/03/2022, Expires: 3 Start: 11-10-2022 ANNUAL PCP TEAM CHRONIC DISEASE VISIT ANNUAL PCP TEAM CHRONIC DISEASE VISIT [facility] Start: 11-10-2022 PNEUMOCOCCAL (2 - PCV) PNEUMOCOCCAL (2 - PCV) [facility] Comment on above: Postponed from 04/08/2007 (Declined at t his time) Start: 11-10-2022 SHINGRIX VACCINE (1 of 2) SHINGRIX VACCINE (1 of 2) [facility] Comment on above: Postponed from 2010 (Declined at t his time) Start: 11-02-2022 Influenza vaccination INFLUENZA (#1) [facility] Comment on above: Postponed from 01/04/2022 (Declined at t his time) Start: 10-10-2022 ANNUAL PCP TEAM CHRONIC DISEASE VISIT ANNUAL PCP TEAM CHRONIC DISEASE VISIT [facility] Start: 09-04-2022 Mammography [facility] Start: 09-04-2022 Screening for malignant neoplasm of breast Mammogram Screening [facility] Start: 07-18-2022 End: 09-17-2022 25-hydroxyvitamin D3 [Mass/volume] in Serum or Plasma VITAMIN D 25 HYDROXY Lab Routine Vitamin D deficiency Expected: 07/18/2022 (Approximate), Expires: 09/17/2022 [facility] Work Phone: Comment on above: Expected: 07/18/2022 (Approximate), Expi res: 09/17/2022 Start: 07-18-2022 End: 09-17-2022 Comprehensive metabolic 2000 panel - Serum or Plasma COMP METABOLIC PANEL Lab Routine Encounter for long-term current use of medication Expected: 07/18/2022 (Approximate), Expires: 09/17/2022 [facility] Work Phone: Comment on above: Expected: 07/18/2022 (Approximate), Expi res: 09/17/2022 Start: 07-18-2022 End: 09-17-2022 Lipid 1996 panel - Serum or Plasma LIPID PANEL BASIC Lab Routine Pure hypercholesterolemia Expected: 07/18/2022 (Approximate), Expires: 09/17/2022 [facility] Work Phone: Comment on above: Expected: 07/18/2022 (Approximate), Expi res: 09/17/2022 Start: 07-10-2022 ANNUAL PCP TEAM CHRONIC DISEASE VISIT ANNUAL PCP TEAM CHRONIC DISEASE VISIT [facility] Start: 07-10-2022 COVID-19 VACCINE (#1) COVID-19 VACCINE (#1) [facility] Comment on above: Postponed from 1965 (Declined at t his time) Postponed from 07/02 (Declined at this time) Start: 07-10-2022 COVID-19 VACCINE (1) COVID-19 VACCINE (1) [facility] Comment on above: Postponed from 1965 (Declined at t his time) Start: 04-28-2022 DIABETES SCREEN DIABETES SCREEN [facility] Start: 04-16-2022 End: 06-16-2022 Urinalysis complete panel - Urine [facility] Work Phone: Comment on above: Expected: 04/16/2022, Expires: Start: 02-13-2022 Anesthesia nose & accessory sinuses nos ANESTH NOSE/SINUS SURGERY [facility] Start: 02-13-2022 Nasal/sinus endoscopy w/sphenoidotomy NASAL/SINUS ENDOSCOPY SURG [facility] Start: 02-13-2022 Nsl/sinus ndsc max antrost w/rmvl tiss max sinus ENDOSCOPY MAXILLARY SINUS [facility] Start: 02-13-2022 Patient discharge [facility] Start: 01-04-2022 Influenza vaccination [facility] Start: 11-24-2021 [facility] Work Phone: Start: 11-10-2021 End: 01-10-2022 Bacteria identified in Urine by Culture URINE CULTURE Microbiology Routine Dysuria Expected: 11/10/2021, Expires: 01/10/2022 [facility] Work Phone: Comment on above: Expected: 11/10/2021, Expires: Start: 11-02-2021 Influenza vaccination INFLUENZA (#1) [facility] Comment on above: Postponed from 01/04/2021 (Declined at t his time) Start: 09-13-2021 SHINGRIX VACCINE (1 of 2) SHINGRIX VACCINE (1 of 2) [facility] Comment on above: Postponed from 2010 (Declined at t his time) Start: 06-20-2021 Mammography MAMMOGRAM [facility] Start: 2020 RSV Vaccine (1 - 1-dose 60+ series) RSV Vaccine (1 - 1-dose 60+ series) [facility] Start: 2020 RSV Vaccine (1 - Risk 60-74 years 1-dose series) RSV Vaccine (1 - Risk 60-74 years 1-dose series) [facility] Start: 2010 SHINGRIX VACCINE (1 of 2) SHINGRIX VACCINE (1 of 2) [facility] Start: 04-08-2007 PNEUMOCOCCAL (2 - PCV) PNEUMOCOCCAL (2 - PCV) [facility] Start: 04-08-2007 Pneumococcal vaccination Pneumococcal Vaccine (2 - PCV) [facility] Start: 2005 COLOGUARD (FIT-DNA) COLOGUARD (FIT-DNA) [facility] Start: [address] COLONOGRAPHY [facility] Start: 2005 FECAL OCCULT BLOOD FECAL OCCULT BLOOD [facility] Start: 2005 Screening for malignant neoplasm of colon [facility] Start: 2005 SIGMOIDOSCOPY SIGMOIDOSCOPY [facility] Start: 1990 Zoledronic acid therapy ALPHA-1 ANTITRYPSIN DEFICIENCY SCREENING [facility] Start: [birth year]02-1961 COVID-19 VACCINE (#1) COVID-19 VACCINE (#1) [facility] Bacteria identified in Urine by Culture URINE CULTURE Microbiology Routine UTI symptoms Ordered: 04/16/2022 [facility] Work Phone: Comment on above: Ordered: 04/16/2022 End: 12-04-2025 CT Abdomen W contrast IV CT ABDOMEN W IVCON Radiology Routine Intra-abdominal and pelvic swelling, mass and lump, unspecified site Other specified disorders of kidney and ureter Pancreatic cyst (HCC) Renal cyst 1 Occurrences starting 11/04/2024 until 12/04/2025 [facility] Work Phone: Comment on above: 1 Occurrences starting 11/04/2024 until 12/04/2025 End: 09-17-2025 DBT Breast - bilateral screening AMOS SCREENING W BOOKER Radiology Routine Encounter for screening mammogram for breast cancer 1 Occurrences starting 08/18/2024 until 09/17/2025 [facility] Work Phone: Comment on above: 1 Occurrences starting 08/18/2024 until 09/17/2025 Electrocardiographic procedure [facility] Work Phone: Electrocardiographic procedure [facility] Ingestion challenge test initial 120 minutes INGESTION CHALLENGE TEST Procedures Routine Nqg-[id number]-iwpliqy adverse effect of medication, initial encounter Ordered: 01/08/2023 [facility] Work Phone: Comment on above: Ordered: 01/08/2023 Intracutaneous tests w/allergenic extracts INTRACU/DERM TESTS-IMMEDIA RX Procedures Routine Nonallergic rhinitis Chronic sinusitis, unspecified location Moderate persistent asthma without complication Ordered: 01/08/2023 [facility] Work Phone: Comment on above: Ordered: 01/08/2023 End: 10-17-2024 MG Breast Screening AMOS SCREENING Radiology Routine Encounter for screening mammogram for breast cancer 1 Occurrences starting 09/18/2023 until 10/17/2024 [facility] Work Phone: Comment on above: 1 Occurrences starting 09/18/2023 until 10/17/2024 End: 03-31-2023 Mri spinal canal lumbar w/o contrast material MRI LUMBAR SPINE WO IVCON Radiology Routine Lumbar radiculopathy Spinal stenosis of lumbar region without neurogenic claudication 1 Occurrences starting 03/01/2022 until 03/31/2023 [facility] Work Phone: Comment on above: 1 Occurrences starting 03/01/2022 until 03/31/2023 Nasopharyngeal Culture Nasopharyngeal [facility] Work Phone: End: 12-23-2022 NITRIC OXIDE, EXHALED NITRIC OXIDE, EXHALED PFT Routine Asthma, moderate persistent, well-controlled Chronic sinusitis, unspecified location 1 Occurrences starting 11/23/2021 until 12/23/2022 [facility] Work Phone: Comment on above: 1 Occurrences starting 11/23/2021 until 12/23/2022 End: 07-04-2023 NITRIC OXIDE, EXHALED NITRIC OXIDE, EXHALED PFT Routine Mild persistent asthma without complication 1 Occurrences starting 06/04/2022 until 07/04/2023 [facility] Work Phone: Comment on above: 1 Occurrences starting 06/04/2022 until 07/04/2023 End: 08-09-2024 NITRIC OXIDE, EXHALED NITRIC OXIDE, EXHALED PFT Routine Moderate persistent asthma without complication 1 Occurrences starting 07/11/2023 until 08/09/2024 [facility] Work Phone: Comment on above: 1 Occurrences starting 07/11/2023 until 08/09/2024 End: 02-15-2025 NITRIC OXIDE, EXHALED NITRIC OXIDE, EXHALED PFT Routine Severe persistent asthma without complication 1 Occurrences starting 01/17/2024 until 02/15/2025 [facility] Work Phone: Comment on above: 1 Occurrences starting 01/17/2024 until 02/15/2025 End: 04-23-2025 NITRIC OXIDE, EXHALED NITRIC OXIDE, EXHALED PFT Routine Severe persistent asthma without complication 1 Occurrences starting 03/24/2024 until 04/23/2025 [facility] Work Phone: Comment on above: 1 Occurrences starting 03/24/2024 until 04/23/2025 End: 07-18-2025 NITRIC OXIDE, EXHALED NITRIC OXIDE, EXHALED PFT Routine Severe persistent asthma without complication 1 Occurrences starting 06/18/2024 until 07/18/2025 [facility] Work Phone: Comment on above: 1 Occurrences starting 06/18/2024 until 07/18/2025 End: 12-17-2025 NITRIC OXIDE, EXHALED NITRIC OXIDE, EXHALED PFT Routine Severe persistent asthma without complication (HCC) 1 Occurrences starting 11/17/2024 until 12/17/2025 [facility] Work Phone: Comment on above: 1 Occurrences starting 11/17/2024 until 12/17/2025 Patient Education [facility] Work Phone: Patient referral [facility] Work Phone: End: 12-23-2022 SPIROMETRY BASELINE ONLY SPIROMETRY BASELINE ONLY PFT Routine Asthma, moderate persistent, well-controlled 1 Occurrences starting 11/23/2021 until 12/23/2022 [facility] Work Phone: Comment on above: 1 Occurrences starting 11/23/2021 until 12/23/2022 SPIROMETRY BASELINE ONLY SPIROME TRY BASELINE ONLY PFT Routine Asthma, moderate persistent, well-controlled 06/04/2022 9:40 AM EST [facility] Work Phone: End: 12-02-2025 XR Ankle - left AP and Lateral and oblique XR ANKLE GENERAL 3V AP/LAT/OBL LEFT Radiology Routine Wound of left lower extremity, subsequent encounter Swelling of left lower extremity 1 Occurrences starting 11/02/2024 until 12/02/2025 [facility] Work Phone: Comment on above: 1 Occurrences starting 11/02/2024 until 12/02/2025 XR Ankle - left AP a nd Lateral and oblique XR ANKLE GENERAL 3V AP/LAT/OBL LEFT Radiology Routine Wound of left lower extremity, subsequent encounter Swelling of left lower extremity 11/02/2024 10:04 AM EDT [facility] End: 12-02-2025 XR Foot - left AP and Lateral and oblique XR FOOT GENERAL 3V AP/LAT/OBL LEFT Radiology Routine Wound of left lower extremity, subsequent encounter Swelling of left lower extremity 1 Occurrences starting 11/02/2024 until 12/02/2025 [facility] Comment on above: 1 Occurrences starting 11/02/2024 until 12/02/2025 XR Foot - left AP an d Lateral and oblique XR FOOT GENERAL 3V AP/LAT/OBL LEFT Radiology Routine Wound of left lower extremity, subsequent encounter Swelling of left lower extremity 11/02/2024 10:04 AM EDT [facility] End: 11-30-2024 XR Lumbar spine 3 Views XR LUMBAR GENERAL 3V AP/LAT/L5-S1 Radiology Routine Lumbar pain 1 Occurrences starting 11/01/2023 until 11/30/2024 [facility] Work Phone: Comment on above: 1 Occurrences starting 11/01/2023 until 11/30/2024 XR Lumbar spine 3 Views XR LUMBA R GENERAL 3V AP/LAT/L5-S1 Radiology Routine Lumbar pain 11/01/2023 9:44 AM EDT [facility] Immunizations Immunization Date Immunization Notes Care Provider Fa cili 01-30-2023 pneumococcal (PCV20) vaccine, 20 valent (PREVNAR 20) Edda Oconnor MD Work Phone: [facility] Work Phone: 08-29-2020 tetanus toxoid, redu sekou diphtheria toxoid, and acellular pertussis vaccine, adsorbed Lew Verduzco MD Work Phone: [facility] Work Phone: 04-25-2018 influenza virus vacc ine, unspecified formulation Viji Garcia MD Work Phone: [facility] 03-31-2015 tetanus and diphther ia toxoids, adsorbed, preservative free, for adult use (2 Lf of tetanus toxoid and 2 Lf of diphtheria toxoid) [facility] 03-30-2015 tetanus and diphther ia toxoids, adsorbed, preservative free, for adult use (2 Lf of tetanus toxoid and 2 Lf of diphtheria toxoid) Lew Verduzco MD Work Phone: [facility] 03-09-2008 tetanus toxoid, redu sekou diphtheria toxoid, and acellular pertussis vaccine, adsorbed Lew Verduzco MD Work Phone: [facility] Work Phone: 04-08-2006 pneumococcal polysaccharide vaccine, 23 valent Lew Verduzco MD Work Phone: [facility] Work Phone: Payers Date Payer Category Payer Private Health Insurance [id number] 2024 Self-pay [id number] 2012 Medicare [employer] MEDICARE THP [facility] [id number] 2012-Present [phone] [id number] [place] [address] [facility] [id number] 2012 Medicare [employer] MEDICARE THP [facility] O [id number] 2012-Present [phone] [place] [address] [facility] [id number] 2012 Medicare ([employer]) THP [facility] [id number] 2012 Medicare [id number] 1960 Unknown [id number]. 2.627 Unknown [id number] 2.16.840.1.599612.3.579. 2.462 Unknown [id number] 2.16.840.1.845435.3.579. 2.462 Unknown [id number] 2.16.840.1.187803.3.579. 2.462 Unknown [id number] 2.16.840.1.552676.3.579. 2.462 Unknown [id number] 2.16.840.1.676652.3.579. 2.462 Unknown [id number] 2.16.840.1.589151.3.579. 2.462 Unknown [id number] 2.16.840.1.043259.3.579. 2.462 Unknown [id number] 2.16.840.1.994144.3.579. 2.462 Unknown [id number] 2.16.840.1.661570.3.579. 2.462 Unknown [id number] 2.16.840.1.866845.3.579. 2.462 Unknown [id number] 2.16.840.1.911829.3.579. 2.462 Unknown [id number] 2.16.840.1.841844.3.579. 2.462 Unknown [id number] 2.16.840.1.807395.3.579. 2.462 Unknown [id number] 2.16.840.1.735840.3.579. 2.462 Unknown [id number] 2.16.840.1.174462.3.579. 2.462 Unknown [id number] 2.16.840.1.862614.3.579. 2.462 Social History Date Type Detail Facility Start: 03-17-2018 End: 06-04-2022 Tobacco smoking status NHIS Never smoked tobacco [facility] Start: 07-10-2021 End: 11-04-2024 Alcohol intake Ex-drinker (finding) [facility] Start: 10-22-2019 End: 03-16-2021 History SDOH Alcohol Frequency 1 [facility] Start: 03-13-2020 History SDOH Alcohol Std Drinks 98 [facility] Start: 06-28-2019 End: 04-04-2022 History SDOH Social Connections Phone 5 [facility] Start: 06-28-2019 End: 04-04-2022 History SDOH Social Connections Membership 2 [facility] Start: 03-13-2020 End: 04-04-2022 History SDOH Social Connections Living 8 [facility] Start: 03-13-2020 End: 04-04-2022 History SDOH Financial 3 [facility] Start: 06-28-2019 Education 12 [facility] Start: 03-17-2018 End: 06-04-2022 Tobacco Comment ETS from parents in childhood home. Currently also has some household ETS. 03/17/2018. [facility] Start: 1960 Sex Assigned At Female [facility] Start: 06-10-2021 End: 04-07-2022 Exposure to SARS-CoV-2 (event) Not sure [facility] Start: 08-29-2020 End: 02-06-2022 Tobacco smoking status NHIS Unknown if ever smoked [facility] Start: 08-29-2020 None [facility] Start: 08-29-2020 Spouse/ Signif icant Other [facility] Start: 08-31-2020 Non-smoker [facility] Start: 03-17-2018 End: 06-04-2022 Tobacco use and exposure Smokeless tobacco non-user [facility] Work Phone: Start: 04-04-2022 History SDOH Alcohol Std Drinks 0 [facility] Start: 04-03-2022 End: 10-23-2022 History of Social function [facility] Start: 04-03-2022 End: 10-23-2022 Social connection and isolation panel [facility] Do you belong to any clubs or organizations such as congregation groups, unions, fraternal or athletic groups, or school groups? No [facility] Are you now , , , , never or living with a partner? Living with partner [facility] How often to you hav e a drink containing alcohol? Never [facility] Start: 04-06-2012 End: 02-09-2025 How many standard drinks containing alcohol do you have on a typical day? Patient does not drink [facility] How hard is it for y ou to pay for the very basics like food, housing, medical care, and heating Somewhat hard [facility] Do you feel stress - tense, restless, nervous, or anxious, or unable to sleep at night because your mind is troubled all the time - these days [OSQ] Very much [facility] (I/We) worried wheth er (my/our) food would run out before (I/we) got money to buy more. Never true [facility] (I/We) worried wheth er (my/our) food would run out before (I/we) got money to buy more. Sometimes true [facility] (I/We) worried [facility] er (my/our) food would run out before (I/we) got money to buy more. DK or Refused [facility] Start: 07-20-2024 End: 02-09-2025 Sex Female (finding) [facility] Tobacco smoking status [facility] NEGATED: Highlighted row [facility] Medical Equipment Procedure Code Equipment Code Equipment Origin al Text Equipment Identifier Dates FESS (functional endoscopic sinus surgery) DRESSING,SURGICEL 4x8 FDA Start: 02-13-2022 FESS (functional endoscopic sinus surgery) Plant polysaccharide haemostatic agent, bioabsorbable [id number] FDA Start: 02-13-2022 FESS (functional endoscopic sinus surgery) DRESSING,SURGICEL 4x8 FDA Start: 02-13-2022 FESS (functional endoscopic sinus surgery) DRESSING,SURGICEL 4x8 FDA Start: 02-13-2022 FESS (functional endoscopic sinus surgery) DRESSING,SURGICEL 4x8 FDA Start: 02-13-2022 FESS (functional endoscopic sinus surgery) DRESSING,SURGICEL 4x8 FDA Start: 02-13-2022 FESS (functional endoscopic sinus surgery) DRESSING,SURGICEL 4x8 FDA Start: 02-13-2022 FESS (functional endoscopic sinus surgery) DRESSING,SURGICEL 4x8 FDA Start: 02-13-2022 FESS (functional endoscopic sinus surgery) DRESSING,SURGICEL 4x8 FDA Start: 02-13-2022 FESS (functional endoscopic sinus surgery) DRESSING,SURGICEL 4x8 FDA Start: 02-13-2022 Goals Date Patient Goal Desired Activity /State Functional Status Date Assessment Result Facility 02-09-2025 Functional Status Up to bathroom [facility] 02-09-2025 [facility] 02-09-2025 Functional Status Independent [facility] 10-16-2016 Are you deaf, or do you have serious difficulty hearing No 10/16/2016 1:44 PM MELVINT Lew Verduzco MD No [facility] 10-16-2016 Are you blind, or do you have serious difficulty seeing, even when wearing glasses No 10/16/2016 1:44 PM Lew Hutchinson MD No [facility] 10-16-2016 Do you have serious difficulty walking or climbing stairs No 10/16/2016 1:44 PM Lew Hutchinson MD No [facility] 10-16-2016 Do you have difficul ty dressing or bathing No 10/16/2016 1:44 PM Lew Hutchinson MD No [facility] 10-16-2016 Because of a physica l, mental, or emotional condition, do you have difficulty doing errands alone such as visiting a physician's office or shopping No 10/16/2016 1:44 PM Lew Hutchinson MD No [facility] Mental Status Date Assessment Result Facility 02-09-2025 Mental Status Orientation Oriented x 4 [facility] 02-09-2025 Mental Status [facility] 09-21-2024 Cognitive function Voice/Name [facility] Work Phone: 07-20-2024 Cognitive function Voice/Name [facility] Work Phone: 02-13-2022 Cognitive function Level Of Cons ciousness Awake;Alert;Appropriate [facility] Work Phone: 02-13-2022 Cognitive function Voice/Name [facility] Work Phone: 10-16-2016 Because of a physica l, mental, or emotional condition, do you have serious difficulty concentrating, remembering, or making decisions No 10/16/2016 1:44 PM Lew Hutchinson MD No [facility] Clinical Notes 09-15-2020 to 03-17-2025 Note Date & Type Note Facility 03-17-2025 Note [facility] Medical Records Department [address] [place] [address] History Physical Exam 03/17/25 1543 MR#: [id number] Acct: [id number] Name: CHEY JEFFERS Rep #: [id number] : 1960 64 From: Wolf Jewell MD PCP: Dr. Edda Oconnor MD Status:[facility] Location: [place] [id number] HPI - General General Date of Admission: 03/17/25 Date of Service: 03/17/25 Chief Complaint: Periumbilical hernia HPI Narrative CHEY JEFFERS, is a 64 F who presents for elective repair of a periumbilical hernia. She states this has been getting larger and more symptomatic. She had a CAT scan back in November that showed a fat- containing umbilical hernia with a small defect. She presents today for repair [facility] Medical History Urinary tract infection, site not specified Anemia Easy bruising Injury of back Hiatal hernia Gastric reflux Heartburn Cardiology follow-up encounter Hypertension Palpitations Chest pain History of stress test History of deviated nasal septum Wears dentures History of steroid therapy Arthritis Bladder disease High cholesterol History of IBS Non-smoker Shortness of breath on exertion COPD (chronic obstructive pulmonary disease) Asthma Migraine Degenerative disc disease Fibromyalgia Depression Anxiety Home Medications ???Medication ???Instructions ???Recorded ???Last Taken ???Type albuterol sulfate 90 mcg/actuation 1 - 2 puff IH Q4H PRN PRN Asthma 07/09/14 04/07/18 08:00 History aerosol inhaler (Ventolin HFA) clonazepam 0.5 mg tablet 0.5 mg PO BID ANXIETY 07/09/1404/29 07:00 History fluticasone propionate 50 1 spray DAILY PRN PRN Allergies Unknown History mcg/actuation nasal spray,suspension lansoprazole 30 mg capsule,delayed 30 mg PO DAILY , 07/09/14 07:00 History release (Prevacid) simvastatin 40 mg tablet 40 mg PO QHS CHOLESTEROL 07/09/14 09/20/24 History loperamide 2 mg capsule 2 mg PO Q6H PRN PRN Diarrhea ##20 07/22/14 08/09/16 Rx fexofenadine 180 mg tablet 180 mg PO QHS . 03/26/17 09/20/24 History (Nan Allergy) imipramine HCl 50 mg tablet 50 mg PO QHS depression 01/07/18 0 09/20/24 History budesonide-formoterol HFA 160 2 puff inhalation BID 04/04/18 History mcg-4.5 mcg/actuation aerosol inhaler (Symbicort) calcium 200 mg (as 1 ea PO DAILY 04/04/18 09/20/24 Hi story citrate)-vitamin D3 6.25 mcg (250 unit) tablet (Citracal-D3 Petites) ipratropium 0.5 mg-albuterol 3 mg 3 ml inhalation Q4H PRN BREATHING 04/04/18 Unknown History (2.5 mg base)/3 mL nebulization soln sucralfate 1 gram tablet 1 g PO BID 04/04/18 09/21/24 Histo ry montelukast 10 mg tablet 10 mg PO DAILY 02/06/22 09/20/24 H istory (Singulair) vibegron 75 mg tablet (Gemtesa) 75 mg PO DAILY 07/20/24 03/17/25 0 7:00 History estradiol 0.5 mg tablet 0.5 mg PO QDAY 01/14/25 Unknown Hi story topiramate 100 mg tablet (Topamax) 100 mg PO QHS 01/14/25 Unknown H istory Allergy/AdvReac Type Severity Reaction Status Date / Time aspirin Allergy Severe Anaphylaxis Verified 03/17/25 12:59 acetaminophen (From Vicodin) Allergy MAKES MY Verified 03/17/25 12:59 CHEST HURT azithromycin (From Zithromax) Allergy Itching Verified 03/17/25 12:59 budesonide Allergy Rash Verified 03/17/25 12:59 ciprofloxacin (From Cipro) Allergy Hives Verified 03/17/25 12:59 codeine Allergy Hives Verified 03/17/25 12:59 difluprednate (From Durezol) Allergy Rash Verified 03/17/25 12:59 doxycycline Allergy Rash Verified 03/17/25 12:59 hydrocodone bitartrate (From Allergy Hives Verified 03/17/25 12:59 Vicodin) ibuprofen (From Motrin) Allergy Shortness Verified 03/17/25 12:59 of breath ketorolac tromethamine (From Allergy Swelling Verified 03/17/25 12:59 Toradol) maprotiline Allergy Itching Verified 03/17/25 12:59 meperidine HCl (From Demerol) Allergy Rash Verified 03/17/25 12:59 mirtazapine Allergy Other Verified 03/17/25 12:59 Penicillins Allergy Rash Verified 03/17/25 12:59 prednisone Allergy Itching Verified 03/17/25 12:59 tramadol HCl (From Ultram) Allergy Chest Verified 03/17/25 12:59 tightness vancomycin Allergy Swelling Verified 03/17/25 12:59 acetylcysteine (From AdvReac ITCHING, Verified 03/17/25 12:59 Mucomyst) REDNESS citalopram hydrobromide AdvReac Nausea/Vom/ Verified 03/17/25 12:59 (From Celexa) Diarrhea escitalopram oxalate (From AdvReac Nausea/Vom/ Verified 03/17/25 12:59 Lexapro) Diarrhea nitrofurantoin (From AdvReac Diarrhea Verified 03/17/25 12:59 Macrobid) nitrofurantoin AdvReac Diarrhea Verified 03/17/25 12:59 macrocrystalline (From Macrobid) oxycodone AdvReac Hives Verified 03/17/25 12:59 pregabalin (From Lyrica) AdvReac Swelli (more content not included)... [facility] 03-03-2025 Note HNO ID: [id number] Author: EDDA OCONNOR MD Service: ? Author Type: Physician Type: Progress Notes Filed: 03/04/2025 00:47 Note Text: Subjective Chey Jeffers is a 64 year old female. HPI SUBJECTIVE: Chey Jeffers is a 64-year-old female with a history of fibromyalgia, glaucoma, and anxiety, presenting for a regular check-up and to discuss multiple concerns, including recent bereavement, back pain, sleep disturbances, and ongoing stress. Chey is experiencing significant emotional distress following the recent of her mother in August. She expresses feelings of guilt and anger towards the hospital where her mother was treated, believing that inadequate care contributed to her mother's . She reports that her mother was diagnosed with sepsis and pneumonia but feels that the treatment was insufficient. She also mentions that her mother's medications were stopped four days before discharge, which she believes was inappropriate. Chey is struggling with the loss and feels abandoned, stating that she can no longer feel her mother's presence, which she used to find comforting. Chey reports experiencing panic attacks on consecutive days and is having difficulty sleeping. She describes her sleep as broken, with some nights sleeping through and others waking up multiple times. She also reports feeling unusually sleepy during the day, sometimes falling asleep at the table, which is atypical for her. She attributes some of her sleep disturbances to her fibromyalgia. She is currently taking Topamax and imipramine but reports that these medications are not effectively managing her anxiety or sleep issues. Chey also reports ongoing back pain, which she describes as feeling like claws digging in there (pointing at left lateral hip to groing area). She has received two steroid injections from Dr. Bianchi, which she states were ineffective and costly. She expresses frustration with the treatment and the lack of improvement in her symptoms. She also mentions concerns about the potential impact of steroids on her glaucoma, as advised by her assistant curator, Dr. Cuevas. In addition to her back pain, Chey reports feeling weak and shaky, particularly in the mornings. She notes that even lifting half a gallon of milk is challenging and that she is getting weaker. She also mentions that she has been diagnosed with osteopenia in the past. Chey is also dealing with significant stress related to her responsibilities as a caregiver for her partner, Laurent, and managing her brother Moshe's affairs. She reports feeling overwhelmed by these responsibilities and expresses frustration with the lack of support from her partner. She also mentions difficulties with managing Moshe's Social Security benefits and estate matters, which are adding to her stress. Chey reports that she is fasting today in case labs are needed. 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 Mazariegos [facility]. Pure hypercholesterolemia Serrated adenoma of colon 07/29/2014 Symptomatic menopausal or female climacteric states Unspecified sinusitis (chronic) 06/21/2008 Current Outpatient Medications Medication Sig ipratropium-albuterol (DUONEB) 0.5 mg-3 mg(2.5 mg base)/3 mL nebu Inhale 3 mL as instructed every 6 hours as needed. nystatin (MYCOSTATIN) 100,000 unit/mL suspension Take 5 mL by mouth four times daily. 1tsp swish in mouth for several minutes, then swallow (or expectorate) 4 times daily until gone. clonazePAM (KLONOPIN) 1 mg tablet Take 1 tablet by mouth two times a day for 90 days. Sync meds lansoprazole (PREVACID) 30 mg capsule Take 1 capsule by mouth once daily. Sync meds montelukast (SINGULAIR) 10 mg tablet Take 1 tablet by mouth daily at bedtime. famotidine (PEPCID) 40 mg tablet Take 1 tablet by mouth once daily. imipramine HCl (TOFRANIL) 50 mg tablet Take 1 tablet by mouth daily at bedtime. simvastatin (ZOCOR) 40 mg tablet Take 1 tablet by mouth daily at bedtime. Nebulizer Accessories kit 1 Kit as needed. budesonide-formoterol (SYMBICORT) 160-4.5 mcg/actuation inhaler Inhale 2 Puffs as instructed two times a day. albuterol HFA (VENTOLIN HFA) 90 mcg/actuation inhaler Inhale 2 Puffs as instructed every 4 hours as needed for wheezing/shortness of breath. sucralfate (CARAFATE) 1 gram tablet Take (more content not included)... [facility] 02-17-2025 Note HNO ID: [id number] Author: ANA CRISTINA URBINA APRN.GEOSCIENCE LABORATORY TECHNICIAN Service: ? Author Type: Nurse Practitioner Type: Progress Notes Filed: 02/17/2025 12:42 Note Text: Pulmonary Medicine Patients name: Chey Jeffers PCP: Edda Oconnor MD CC: follow-up HPI: Chey Jeffers is a 64 year old female non-smoker with PMH significant for ankylosing spondylitis, depression, GERD, nasal polyps, recurrent sinusitis and asthma. NELSY 06/2024 with improved but persistently elevated nitric oxide. Biologic therapy discussed but patient reluctant. NELSY 11/2024 with poor control of her asthma in the setting of frequently forgetting to use her inhaler. C/o worsening anxiety/depression since the loss of her mom. Was having recurrent sinus infections. Nitric oxide at that time 134 ppb. Current therapy with Symbicort and PRN Albuterol. Also uses Singulair and OTC antihistamines for multiple allergies. She presents today for repeat nitric oxide and follow-up. Since her last visit, she reports better compliance with Symbicort but is still missing doses frequently. She has ongoing concerns with depression/anxiety. Also dealing with a hernia that was supposed to be repaired but has not been done yet. Also been stressed d/t her brothers health whom she cares for. Had repeat nitric oxide today which is improved to 71 ppb. She is currently being treated with Medrol dose pack and just finished Levaquin for recurrent sinus infection. She follows with [facility]. Has soreness in her mouth and was treating for thrush. Today, patient reports occasional cough and will cough up varies colors of sputum d/t recurrent sinus infections. Notes PND frequently. Her ENT previously recommended CT of her sinuses but has not been done. Denies wheezing since treatment started. No dyspnea at rest. Exertional dyspnea has not changed and notes with heavy exertion. No fevers, chills, or night sweats. Albuterol use is rare. PAST MEDICAL HISTORY Diagnosis Date Abnormal ultrasound of breast 06/17/2013 Acute gastritis Ankylosing spondylitis (HCC) Anxiety and depression 06/12/2005 Asthma (HCC) Bilateral renal cysts 03/11/2015 Calculus of kidney Dysthymic disorder Depression (non-psychotic) Enterocolitis due to Clostridium difficile 01/12/2015 Esophageal reflux HNP (herniated nucleus pulposus), lumbar 08/22/2011 Intrinsic asthma, unspecified 08/05/2008 Irritable bowel syndrome Irritable bowel FCI 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 01/16/2017 Menopause syndrome 01/19/2005 Myalgia and myositis, unspecified Nasal polyposis Polypectomy 03/2017 Dr. Mazariegos [facility]. Pure hypercholesterolemia Serrated adenoma of colon 07/29/2014 Symptomatic menopausal or female climacteric states Unspecified sinusitis (chronic) 06/21/2008 Allergies: Amoxicillin Rash Comment:Rash a few days into a course of treatment. Noted that had not reacted to test dose penicillin but developed rash after a few days on amoxicillin. Aspirin [Salicylate* Swelling, Shortness of Breath Comment:wheezing,swelling lips,rash,hives Codeine Hives Vicodin [Hydrocodon* Hives Cefdinir Itching Comment:Itchy scaly rash. (Patient may take penicillin and other penicillin type antibiotics. See allergy visit on 01/08/23) Demerol [Meperidine* Rash Tylenol [Acetaminop* Intolerance, Shortness of Breath Comment:asthma; makes it hard for her to breathe Ambien [Zolpidem] Intolerance Comment:Was sleepwalking (arranging books but hull not recall) Bactrim [Sulfametho* Comment:uncertain Budesonide Rash Celexa [Citalopram * GI Upset Doxy [Doxycycline] Comment:rash and asthma Durezol [Diflupredn* Rash Ibuprofen Shortness of Breath Keflex [Cephalexin] Intolerance Lexapro [Escitalopr* GI Upset Lyrica [Pregabalin] Mental Status Change Comment:dizzy Macrobid [Nitrofura* Diarrhea Maprotiline Itching Monurol [Fosfomycin] Diarrhea Mucomyst [Acetylcys* Cough Comment:increase wheezing Oxycodone Shortness of Breath Penicillins Hives Comment:Allergy skin tests to penicillin were negative. The patient took a test dose of amoxicillin and tolerated this without adverse reaction. The patient is at low risk for a severe, immediate, IgE-mediated reaction to penicillin, amoxicillin and other penicillin-type antibiotics. Skin tests are unreliable for predicting delayed reactions. Toradol [Ketorolac * Swelling Ultram [Tramadol Hc* Other: See Comments Comment:chest pains Vancomycin Other: See Comments Comment:Wheezing after taking, legs swollen and tongue swelling and scratchy neck Venlafaxine GI Upset Zithromax [Azithrom* Itching Mirtazapine Other: See Comments Comment:Hand shakes. Medication List Accurate as of February 16, 2025 12:08 PM. If you have any questions, ask your nurse or doctor. CONTINUE taking these medications * albuterol HFA 90 mcg/actuation inhaler Commonly known as: VENTOLIN HFA Inhale 2 Puffs as instr (more content not included)... [facility] 02-17-2025 Note HNO ID: [id number] Author: OFE RUFF RPFT Service: ? Author Type: Respiratory Therapist Type: Procedures Filed: 02/17/2025 11:19 Note Text: RESPIRATORY THERAPY ORAL EXHALED NITRIC OXIDE SERVICE DATE: 02/17/2025 SERVICE TIME: 11:19 AM Oral Exhaled Nitric Oxide measurement: 71.0 (ppb) (A) Normal: Adult <25 ppb, pediatric (<12 years) <20 ppb High Normal / Increased: Adult 25-50 ppb, pediatric (<12 years) 20-35 ppb Moderately raised exhaled Nitric Oxide may indicate underlying inflammation, but note that: Cold and influenza can raise exhaled Nitric Oxide and some patients have higher baseline exhaled Nitric Oxide levels than others. High: Adult >50 ppb, pediatric (<12 years) >35 ppb Indicative of ongoing eosinophilic inflammation. Symptomatic patient likely to respond to steroids. Possible causes (if already on steroids): Poor compliance, recent allergen exposure, steroid dose inadequate, and steroid resistance. Note that not all patients with high exhaled nitric oxide levels display symptoms. Oral Exhaled Nitric Oxide measurement (Previous Encounters) Test Date Oral Exhaled Nitric Oxide (ppb) 02/17/2025 71.0 (A) 11/17/2024 134.0 (A) 06/18/2024 52.0 (A) 03/24/2024 114.0 (A) 01/17/2024 88.0 (A) 12/03/2022 49.0 (A) 06/04/2022 95.0 (A) 08/17/2021 109.0 (A) 12/21/2019 216.0 (A) NAME: Ofe RuffLA PATIENT NAME: Chey Jeffers DATE: February 17, 2025 TIME: 11:19 AM [facility] 02-09-2025 Hospital Discharge instructions Patient Education 02/09/2025 10:20:00 Abdominal Pain, Unknown Cause, (Female) Unknown Causes of Abdominal Pain (Female) The exact cause of your belly (abdominal) pain is not clear. This does not mean that this is something to worry about. Everyone likes to know the exact cause of the problem. But sometimes with belly pain, there is no clear-cut cause, and this could be a good thing. The good news is that your symptoms can be treated, and you will feel better. Your condition does not seem serious now. But sometimes the signs of a serious problem may take more time to appear. For this reason, it is important for you to watch for any new symptoms, problems, or worsening of your condition. Over the next few days, the abdominal pain may come and go. Or it may be constant. Other common symptoms can include nausea and vomiting. Sometimes it can be difficult to tell if you feel nauseous. You may just feel bad and not connect that feeling to nausea. Constipation, diarrhea, and a fever may go along with the pain. The pain may continue even if treated correctly over the following days. Depending on how things go, sometimes the cause can become clear and may need more or different treatment. Additional evaluations, medicines, or tests may also be needed. Home care Your healthcare provider may prescribe medicine for pain, symptoms, or an infection. Follow the healthcare provider's instructions for taking these medicines. General care Rest as much as you can until your next exam. No strenuous activities. Try to find positions that ease discomfort. A small pillow placed on the abdomen may help relieve pain. Something warm on your abdomen (such as a heating pad) may help, but be careful not to burn yourself. Diet Don t force yourself to eat, especially if having cramps, vomiting, or diarrhea. Water is important so you don't get dehydrated. Soup may also be good. Sports drinks may also help, especially if they are not too acidic. Don't drink sugary drinks as this can make things worse. Take liquids in small amounts. Don t guzzle them. Caffeine sometimes makes the pain and cramping worse. Don t take dairy products if you have vomiting or diarrhea. Don't eat large amounts at a time. Wait a few minutes between bites. Eat a diet low in fiber (called a low-residue diet). Foods allowed include refined breads, white rice, fruit and vegetable juices without pulp, tender meats. These foods will pass more easily through the intestine. Don t have whole-grain foods, whole fruits and vegetables, meats, seeds and nuts, fried or fatty foods, dairy, alcohol and spicy foods until your symptoms go away. Follow-up care Follow up with your healthcare provider, or as advised, if your pain does not begin to improve in the next 24 hours. Call 911 Call 911 if any of these occur: Trouble breathing Confusion Fainting or loss of consciousness Rapid heart rate Seizure When to seek medical advice Call your healthcare provider right away if any of these occur: Pain gets worse or moves to the right lower abdomen New or worsening vomiting or diarrhea Swelling of the abdomen Unable to pass stool for more than 3 days Fever of 100.4 F (38 C) or higher, or as directed by your healthcare provider. Blood in vomit or bowel movements (dark red or black color) Yellow color of eyes and skin (jaundice) Weakness, dizziness Chest, arm, back, neck, or jaw pain Unexpected vaginal bleeding or missed period Can't keep down liquids or water and you are getting dehydrated 7080-6813 [employer]. [address] [place] [address], [place] [address]. All rights reserved. This information is not intended as a substitute for professional medical care. Always follow your healthcare professional's instructions. Follow Up Care 02/09/2025 08:45:33 With:DREA KRAMER MD Address: [facility] [address] [address] [phone] When:2-4 days [facility] 02-09-2025 Note Discharge Instructions Thank you for allowing [facility] to assist you with your healthcare needs. The following is important discharge information regarding your hospital visit. Diagnosis from Today's Visit Abdominal pain Ventral hernia What to Do Next Instructions from Your Care Team No qualifying data available. Post Acute Orders No qualifying data available. You Need to Schedule the Following Appointments Follow Up with DREA KRAMER MD When:Within 2-4 days Where:[address] [facility] [address] [place] [address] [phone] Allergies Ambien intolerance Bactrim CeleXA GI upset Demerol rash Durezol rash Keflex rash, redness, intolerance Lexapro GI upset Lyrica dizzy Macrobid diarrhea Monurol diarrhea Mucomyst cough Toradol swelling Tylenol SOB, intolerance Ultram chest pain Vicodin hives Zithromax itching amoxicillin rash aspirin SOB, swelling budesonide rash cefdinir itching codeine hives doxycycline asthma, rash ibuprofen SOB maprotiline itching mirtazapine hand shakes oxyCODONE SOB penicillin hives vancomycin scratchy neck, tongue swelling, legs swollen, wheezing venlafaxine GI upset Medications Please ask your primary doctor or pharmacist before taking any other medication not listed, including over the counter drugs, herbal medications, vitamins and or supplements as they may interact with your home medications. What How Much When Instructions Last Dose New dicyclomine (Bentyl use dicyclomine ) 20 Milligram by mouth Four (4) times a day Duration: 7 Days Printed Prescription Please take this list to your next doctor s visit. Bring all medications you take, including over the counter medications, herbals and other supplements with you to your doctor s visit. Patients and families are reminded to discard old lists and to update any records with all medication providers or retail pharmacies. Education Materials Unknown Causes of Abdominal Pain (Female) The exact cause of your belly (abdominal) pain is not clear. This does not mean that this is something to worry about. Everyone likes to know the exact cause of the problem. But sometimes with belly pain, there is no clear-cut cause, and this could be a good thing. The good news is that your symptoms can be treated, and you will feel better. Your condition does not seem serious now. But sometimes the signs of a serious problem may take more time to appear. For this reason, it is important for you to watch for any new symptoms, problems, or worsening of your condition. Over the next few days, the abdominal pain may come and go. Or it may be constant. Other common symptoms can include nausea and vomiting. Sometimes it can be difficult to tell if you feel nauseous. You may just feel bad and not connect that feeling to nausea. Constipation, diarrhea, and a fever may go along with the pain. The pain may continue even if treated correctly over the following days. Depending on how things go, sometimes the cause can become clear and may need more or different treatment. Additional evaluations, medicines, or tests may also be needed. Home care Your healthcare provider may prescribe medicine for pain, symptoms, or an infection. Follow the healthcare provider's instructions for taking these medicines. General care Rest as much as you can until your next exam. No strenuous activities. Try to find positions that ease discomfort. A small pillow placed on the abdomen may help relieve pain. Something warm on your abdomen (such as a heating pad) may help, but be careful not to burn yourself. Diet Don t force yourself to eat, especially if having cramps, vomiting, or diarrhea. Water is important so you don't get dehydrated. Soup may also be good. Sports drinks may also help, especially if they are not too acidic. Don't drink sugary drinks as this can make things worse. Take liquids in small amounts. Don t guzzle them. Caffeine sometimes makes the pain and cramping worse. Don t take dairy products if you have vomiting or diarrhea. Don't eat large amounts at a time. Wait a few minutes between bites. Eat a diet low in fiber (called a low-residue diet). Foods allowed include refined breads, white rice, fruit and vegetable juices without pulp, tender meats. These foods will pass more easily through the intestine. Don t have whole-grain foods, whole fruits and vegetables, meats, seeds and nuts, fried or fatty foods, dairy, alcohol and spicy foods until your symptoms go away. Follow-up care Follow up with your healthcare provider, or as advised, if your pain does not begin to improve in the next 24 hours. Call 911 Call 911 if any of these occur: Trouble breathing Confusion Fainting or loss of consciousness Rapid heart rate Seizure When to seek medical advice Call your healthcare provider right away if any of these occur: Pain gets worse or moves to the right lower abdomen New or worsening vomiting or diarrhea Swelling of the abdomen Unable to pass stool for more than 3 days Fever of 100.4 F (38 C) or higher, or as directed by your healthcare provider. Blood in vomit or bowel movements (dark red or black color) Yellow color of eyes and skin (jaundice) Weakness, dizziness Chest, arm, back, neck, or jaw pain Unexpected vaginal bleeding or missed period Can't keep down liquids or water and you are getting dehydrated 8980-3697 [employer] [address] [place] [address]. All rights reserved. This information is not intended as a substitute for professional medical care. Always follow your healthcare professional's instructions. Additional Information VACCINATE! IT SAVES LIVES! Members of the community who have not yet received the COVID-19 vaccine and would like to receive it can visit one of [facility] vaccine clinics. There are many vaccine clinic locations within the [facility]. For locations and available times, please visit www.gettheshot.coronavirus.[place].gov /. It is important to note that some COVID mobile vaccine clinics are held outdoors and may be canceled in rainy or stormy conditions. To learn more about pediatric vaccinations (ages 5-11), we invite you to visit the [facility] webpage. [email or web address]/page [email or web address]-Howfj-Dggxuokmtia-Frequently -[email or web address]-Questions.html To learn more about the COVID-19 vaccine, we invite you to visit the CDC website for a list of frequently asked questions. https://www.cdc.gov/coronavirus/201 9-ncov/vaccines/faq.html [facility] Patient Portal Access Instructions: Stay connected with your healthcare team and access your personal medical information anytime with the [facility] Patient Portal. If you would like a full copy of your medical records please contact the [facility] Medical Records Department Saturday through Saturday between 8a.m. and 4:30p.m. Please follow the directions below to access the portal: 1.Access the email account you provided upon registration to the [facility].2.Look for an invitation email from [facility].3.Open the email and access the invitation link: Accept Invitation to [facility].Fill in the required araujo to create your account. To access your account, visit [employer] Now or scan the [employer] code above. Click the blue button labeled Access Patient Portal and then log in with the username and password that you created in the steps above. You can then view a summary of results, a summary of your visits, and the ability to download your summaries to your computer or send the information securely to a physician. Remember that your healthcare information is confidential, so carefully consider who you will allow to register on the [facility] Patient Portal for access to your information. You can also access the [facility] Patient Portal on the [employer]ky. Simply click on Health Records under Health Data and then click on the [employer] logo. HOW TO SAFELY DISPOSE OF PRESCRIPTION MEDICATIONS Please use one of the following methods to safely dispose of your unused medications. 1.Use a drug disposal kit: the drug disposal pouch allows you to safely discard your old and unused drugs. Ask your nurse to give you one when you are discharged.2.Visit a local take-back location: Many local pharmacies and police departments have programs that collect old and unwanted prescription drugs. Call your local pharmacy or go to http://bit.Bandtastic.me/9B4Sl5h to find one close to you.3.Make use of household items: Use cat litter or old coffee grounds to dispose medications if other options are not available. Mix your drugs with these household products, seal them in an airtight container and throw it into the garbage. Call [facility]: [phone] to be sure your drugs can be disposed of in this way. Some medicines may require a different approach.4.Never flush your medications down the toilet. IF YOU HAVE BEEN PRESCRIBED AN OPIOIDS FOR PAIN If you have been prescribed an opioid (such as hydrocodone, oxycodone or morphine), it is critical to understand the possible side effects and risks of opioid pain medications. Even when taken as directed, opioids can have several side effects including: Tolerance, meaning you might need to take more of a medication for the same pain relief. Nausea, vomiting and/or constipation. Sleepiness, dizziness, dry mouth, confusion, depression or itching. Physical dependence, meaning you have withdrawal symptoms when a medication is stopped ? this can develop within a few days. KNOW YOUR RESPONSIBILITIES It is important to know exactly how much and how often to take the opioid pain medications you are prescribed. Never take opioids in higher amounts or more often than prescribed. Do not combine opioids with alcohol or other drugs that cause drowsiness, such as benzodiazepines, also known as benzos, including diazepam and alprazolam, muscle relaxants or sleep aids. Never sell or share prescription opioids. This is illegal. Store opioids in a secure place and out of reach of others (including children, family, friends and visitors). The last page(s) of this document has been signed and retained as a CHART COPY Signatures Patient Education Materials Abdominal Pain, Unknown Cause, (Female) Medication Leaflets My discharge plan and instructions have been reviewed and explained to me and I,CHEY JEFFERS understand my current condition and have read and understand these discharge instructions. I have received a written copy of the plan/instructions. If I have questions, I am aware that I should contact my doctor. 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 Multiplanar reformatted images are provided for review. Automated exposure control, iterative reconstruction, and/or weight based adjustment of the mA/kV was utilized to reduce the radiation dose to as low as reasonably achievable. COMPARISON: None. HISTORY: ORDERING SYSTEM PROVIDED HISTORY: Reason for Exam: abdominal pain FINDINGS: Minor degenerative changes are noted in the spine. Mild hip osteoarthritis also seen. No acute osseous abnormality seen. Small areas of scarring are evident at the lung bases. Small hiatal hernia noted. Cholecystectomy clips are present. No focal lesions seen. The bile ducts are mildly prominent but the common bile duct appears to be normal in caliber. The pancreas, adrenal glands and spleen are unremarkable. Small scattered renal cysts are present. No other kidney finding. No adenopathy, free air or free fluid is evident. No focal urinary bladder lesion is evident although there may be a small diverticulum at the right lateral aspect. Mild sigmoid diverticulosis is present, and there are scattered diverticula elsewhere as well. No evidence for diverticulitis. There is evidence for right colon anastomosis from previous surgery. Small lobulated periumbilical fat containing hernia seen. No additional contributory abnormality. IMPRESSION: No acute abnormality identified. Diverticulosis without diverticulitis. Interpreted by: Lauren Devi MD Preliminary Report By: Lauren Devi MD Electronically signed By Lauren Devi MD Dictated Date: 02/09/2025 9:58:57 AM Prelim Date: 02/09/2025 10:01:59 AM Sign Date: 02/09/2025 10:01:59 AM Ordering Provider: TAMIKO ARMENTA RP [facility]09-12-2025 Telephone encounter Note* Telephone Encounter - Jahaira Dickerson LPN - 01/15/2025 8:34 AM EDT Consult faxed to Dr. Pelayo at [facility] as requested [facility]09-12-2025 Miscellaneous Notes* Telephone Encounter - Jahaira Dickerson LPN - 01/15/2025 8:34 AM EDT Consult faxed to Dr. Pelayo at [facility] as requested * Telephone Encounter - Edda Oconnor MD - 01/14/2025 12:59 PM EDT Consult order printed as requested. The following approved medication requests have been transmitted electronically. Requested Prescriptions Signed Prescriptions Disp Refills montelukast (SINGULAIR) 10 mg tablet 90 tablet 3 Sig: Take 1 tablet by mouth daily at bedtime. Authorizing Provider: EDDA OCONNOR MD * Telephone Encounter - Kassandra Paulson RN - 01/14/2025 8:28 AM EDT Patient calling and is asking for a referral for Dr. Pelayo at [facility]. Patient states that one time when she was seen at [facility] they were wanting her to go see Dr. Pelayo. Patient is very unhappy with her current pain management doctor, . Dr. Bianchi continues to give her back injections that patient states that does not help. Patient states that injections also cause her eye pressure. Patient states that he does not listen to her. The patient has been identified by name and date of : Yes Caregiver verified no other encounters exist for this prescription request: Yes Caregiver confirmed with patient/requestor that no other refills are due, in the near future, with this provider at this time: Yes The last office visit in the department: 11/04/2024 Does the patient have a future office visit with this provider/department: N Requested Prescriptions Pending Prescriptions Disp Refills montelukast (SINGULAIR) 10 mg tablet 90 tablet 3 Sig: Take 1 tablet by mouth daily at bedtime. Kassandra Paulson RN January 14, 2025 8:28 AM [facility] Telephone encounter Note * Telephone Encounter - Edda Oconnor MD - 01/14/2025 12:59 PM EDT Consult order printed as requested. The following approved medication requests have been transmitted electronically. Requested Prescriptions Signed Prescriptions Disp Refills montelukast (SINGULAIR) 10 mg tablet 90 tablet 3 Sig: Take 1 tablet by mouth daily at bedtime. Authorizing Provider: EDDA OCONNOR MD [facility]09-11-2025 Telephone encounter Note* Telephone Encounter - Kassandra Paulson RN - 01/14/2025 8:28 AM EDT Patient calling and is asking for a referral for Dr. Pelayo at [facility]. Patient states that one time when she was seen at [facility] they were wanting her to go see Dr. Pelayo. Patient is very unhappy with her current pain management doctor, . Dr. Bianchi continues to give her back injections that patient states that does not help. Patient states that injections also cause her eye pressure. Patient states that he does not listen to her. The patient has been identified by name and date of : Yes Caregiver verified no other encounters exist for this prescription request: Yes Caregiver confirmed with patient/requestor that no other refills are due, in the near future, with this provider at this time: Yes The last office visit in the department: 11/04/2024 Does the patient have a future office visit with this provider/department: N Requested Prescriptions Pending Prescriptions Disp Refills montelukast (SINGULAIR) 10 mg tablet 90 tablet 3 Sig: Take 1 tablet by mouth daily at bedtime. Kassandra Paulson RN January 14, 2025 8:28 AM [facility]08-20-2025 Progress note Author Magdalena Whaley [facility] Note Date/Time December 23, 2024 11 :43am [facility] [address] [place] [address] Progress Note - Wound Care 12/23/24 1138 MR#: [id number] Acct: [id number] Name: CHEY JEFFERS Rep #:[id number] : 1960 63 From: Magdalena Whaley E[employer]DER [employer] PCP: Dr. Edda Oconnor MD Status:RE G RCR Location: History of Present Illness Date of Service: 12/23/24 Chief Complaint: Left lower walls from a fall on some wooden steps outside her house seen in the emergency room on October 22 History of Wound: 63-year-old white female that had sutures put in the dehisced and now she has a well-approximated wound but it has a lot of blackened scabs and peeling skin. Progress of Wound: Left leg is healed patient be discharged from the wound center Subjective Subjective He still complains of burning pain I told her padding it would be best with a sock or does not need to wear dressing but she can wear socks at a padded sock on that area. Objective Data Objective Data All the areas are closed patient tolerated treatments well patient be dischargedfrom the wound center. Vital Signs: Vital Signs Temp Pulse Resp BP O2 Del Method 97.9 F 92 18 127/51 H Room Air 12/23/24 08:57 12/23/24 08:57 12/23/24 08:57 12/23/24 08:57 12/16/24 08:40 Oxygen Delivery Method Room Air Physical Exam Const oriented x3 General Appearance: cooperative Exam Limitations: no limitations HEENT normocephalic Face and Sinus: normal facial exam External Ear: external ears normal Eyes General Eye: normal appearance of both eyes Neck full ROM General: normal visual inspection Resp normal respiratory effort Effort and Inspection: able to speak in complete sentences Auscultation: clear to auscultation bilaterally Cardio regular rate and regular rhythm Palpation: normal PMI Rate: regular rate Rhythm: regular rhythm GI Palpation: no hepatosplenomegaly Back/Spine Cervical Spine: cervical ROM normal Thoracic Spine / Upper Back: normal to inspection Lumbar Spine / Lower Back: normal to inspection Extremity General Extremity: normal exam except as noted, edema and other findings Other Details: Wound on the left walls Skin Wounds: wounds noted Wound Narrative: Left walls well scabbed not healed Neuro oriented x3 Psych Appearance: grossly normal Speech: normal speech Thought Content: normal thought content Judgement: judgement good Debridement Note Debridement Note No debridement was completed: No debridement was completed today Post-Debridement Measurements and Additional Note: Post-Debridement Measurements/Treatment - Nurse 1 - General Ulcer Assessment Start: 12/09/24 08:36 Freq: Status: Active Protocol: SLIM.Giant Sw[employer] Activity Type Activity Date Activity User E-sign Co-sign Detail Recorded Client Recorded Date Recorded By Document 12/09/24 08:36 DL [id number] 12/09/24 08:43 DL Document 12/16/24 08:40 MT [id number] 12/16/24 08:46 MT Document 12/23/24 08:57 RB [id number] 12/23/24 08:59 RB 12/09/24 12/16/24 12/23/24 08:36 08:40 08:57 - Today's Visit Information Type of service Follow-up Visit Follow-up Visit Follow-up Visit (Physician/GEOSCIENCE LABORATORY TECHNICIAN (Physician/GEOSCIENCE LABORATORY TECHNICIAN (Physician/GEOSCIENCE LABORATORY TECHNICIAN ) ) ) Arrival Mode Ambulatory Ambulatory Ambulatory Transfer Assistance None None Accompanied by brother Patient Identification Verified (Name & Yes Yes Yes ) Patient Requires Transmission-Based No No Precautions Safety Precautions Fall Prevention Vital Signs Temperature (97.8 F-99.1 F) 97.7 F L 97.5 F L 97.9 F Temperature Source Temporal Temporal Temporal Pulse Rate (60-100) 98 96 92 Pulse Location Monitor Monitor Monitor Respiratory Rate (12-18) 16 18 18 Respiratory rate source Observation Observation Observation Oxygen Delivery Method Room Air Blood Pressure (90/60-120/80) 162/79 H 144/77 H 127/51 H Blood Pressure Mean (mm Hg) 106 99 76 Source Monitor Monitor Monitor Position Sitting Sitting Blood Pressure Location Left Arm Left Arm History Since Last Visit- (Skip if this is Patient's initial visit) Have you changed medications since your No No last visit? Any new allergies or adverse reactions No No Had a fall/change in ADL's that may No No increase risk of falls Signs or symptoms of abuse and/or No No neglect since last visit Have you been in the hospital since your No No last visit? Has dressing in place as prescribed Yes Yes Yes Has compression in place as prescribed Yes Yes Yes Has offloadiing in place as prescribed N/A Yes N/A Experienced any changes in pain level or No Yes No management Left Footwear Regular Shoe Regular Shoe Right Footwear Regular Shoe Regular Shoe Pain Scale: 0-10 Numeric Is Patient Pain Free? Yes Yes Yes WC - Nurse 1 - General Ulcer Measurement Start: 12/09/24 08:36 Freq: Status: Active Protocol: Activity Type Activity Date Activity User E-sign Co-sign Detail Recorded Client Recorded Date Recorded By Document 12/09/24 08:36 DL [id number] 12/09/24 08:43 DL Document 12/16/24 08:40 MT [id number] 12/16/24 08:46 MT Document 12/23/24 08:57 RB [id number] 12/23/24 08:59 RB 12/09/24 12/16/24 12/23/24 08:36 08:40 08:57 Wound Center Nurse 1 #2 L Walls Cluster -Combined with other wound No -Current Size (cm) - Length 4.3 6 0.1 -Current Size (cm) - Width 0.5 0.5 0.1 -Current Size (cm) - Depth 0.1 0.1 0.1 -Total Square Cm 2.15 3.0 0.01 -Date of Last Picture (Recall this 12/16/24 field) -Photo Taken Yes Yes Yes -Epithelialization Large 67-100% -Tunneling No -Undermining/Tunneling No -Circular Undermining No -Exudate Amt Small Medium None Present -Exudate Type Serosanguineous Serosanguineous -Wound Margin Distinct, Flat & Intact Distinct, Outline Outline Attached Attached -Granulation Amt None Present (0 Large (67-100%) Large (67-100%) %) -Granulation Quality Pale,Southside Southside -Slough/Fibrin No -Necrosis Amt Medium (34-66%) Small (1-33%) None Present (0 %) -Necrotic Tissue Type Adherent Slough Adherent Slough -Structure Exposed N/A N/A -Texture (Adry-wound Skin Appearance) Scarring Assessed Assessed, Scarring -Moisture (Adry-wound Skin Appearance) No Abnormality Assessed Assessed -Color (Adry-wound Skin Appearance) No Abnormality Assessed Assessed -Temperature (Adry-wound Skin No Abnormality No Abnormality No Abnormality Appearance) (Pt Warm) (Pt Warm) (Pt Warm) -Tenderness on Palpation (Adry-wound No No Skin Appearance) -Ulcer Cleansing Soap and Water Soap and Water Wound Cleanser -Foul Odor after Cleansing No No No -Anesthetic Used 5% Lidocaine 5% Lidocaine 5% Lidocaine Gel Gel Gel Lower Limb Edema Present NA Yes Left Calf (cm) 30.5 Left Ankle (cm) 18 WC - Nurse 2 - General Ulcer CM Notes Start: 12/09/24 08:36 Freq: Status: Active Protocol: Activity Type Activity Date Activity User E-sign Co-sign Detail Recorded Client Recorded Date Recorded By Document 12/09/24 08:54 DS [id number] 12/09/24 08:57 DS Document 12/16/24 08:59 BMF [id number] 12/16/24 09:04 BMF Document 12/23/24 09:13 BMF [id number] 12/23/24 09:15 BMF 12/09/24 12/16/24 12/23/24 08:54 08:59 09:13 Wound Center Nurse 2 #2 L Walls Cluster -Time 08:54 09:00 09:13 -Correct Patient Yes Yes -Correct Side, Site, Position Yes Yes -Correct Procedure Yes Yes -Procedure Performed Yes Yes No -Type of Procedure Debridement Debridement -Clinical Debridement Subcutaneous Subcutaneous -Tissue Removed Subcutaneous Subcutaneous -Post Debridement (cm) - Length 4.5 9 0 -Post Debridement (cm) - Width 1.5 3.5 0 -Post Debridement (cm) - Depth 0.2 0.1 0 -Total Square (Post) (cm) 6.75 31.5 0 -Area of Debridement (cm) - Length 4.5 9 0 -Area of Debridement (cm) - Width 1.5 3.5 0 -Total Square (Area) (cm) 6.75 31.5 0 -Tunneling No No -Undermining/Tunneling No No -Circular Undermining No No -Wound/Ulcer Outcome Not Healed Not Healed Healed- Epithelialized -Ulcer Cleansing Rinsed/ Rinsed/ Irrigated with Irrigated with Saline Saline -Foul Odor after Cleansing No No -Bioengineered Tissue No No -Bleeding Controlled with Pressure Pressure NA -Treatment Response Procedure Procedure Tolerated Well Tolerated Well -Debridement - Subq, 1st 20sq cm Yes Yes -Debridement, SubQ, ea addt'l 20sq cm 1 or part thereof Pain Scale: 0-10 Numeric Is Patient Pain Free? No Yes Yes LLE -Description Throbbing -Intensity 5 -Duration (hours) Chronic -Pain Behavior Facial Grimacing -Pain Aggravating Factors Debridement -Alleviating Factors/Interventions Will continue to monitor WC - Nurse 3 - General Ulcer D/C NN Start: 12/09/24 08:36 Freq: Status: Active Protocol: Activity Type Activity Date Activity User E-sign Co-sign Detail Recorded Client Recorded Date Recorded By Document 12/09/24 09:10 RB [id number] 12/09/24 09:10 RB Document 12/16/24 09:12 BM [id number] 12/16/24 09:14 BMF Document 12/23/24 09:21 DL [id number] 12/23/24 09:22 DL 12/09/24 12/16/24 12/23/24 09:10 09:12 09:21 Wound Care Center Nurse 3 #2 L Walls Cluster -Ulcer Cleansing Rinsed/ Rinsed/ Not Cleansed Irrigated with Irrigated with Saline Saline -Foul Odor after Cleansing No -Primary Dressing Applied Aquacel Extra Aquacel Extra -Other Dressing ABD abd -Primary Dressing Covered/Secured with Dry Gauze & Dry Gauze & Roll Gauze, Roll Gauze, Secured with Secured with Tape Tape -Aquacel Extra 1 3 -Wound Comment(s) Healed. no dressing. Discharged. LLE -Tubular Bandage Double Layer Double Layer -Size of Tubigrip Used Size E Size E -Size E ($) 2 2 Treatment Response Procedure Tolerated Well Pain Scale: 0-10 Numeric Is Patient Pain Free? Yes Yes Yes WC - Visit Discharge Discharge Condition Stable Stable Stable Ambulatory Status Ambulatory Ambulatory Ambulatory Transportation Private Auto Private Auto Private Auto Accompanied by brother Medication Reconcilliation completed & No provided to patient/care provider Clinical Summary of Care Provided Yes Assessment/Plan Assessment/Plan (1) Nonhealing surgical wound: CODE(S): T81.89XA - Other complications of procedures, 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ssified, initial encounter QUALIFIERS: Encounter type: initial encounter Qualified Code(s): T81.89XA - Other complications of procedures, 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ssified, initial encounter PLAN: Discharge from the wound center follow-up as needed (2) Traumatic ulcer of left lower leg: CODE(S): L97.929 - Non-pressure chronic ulcer of unspecified part of left lower leg with unspecified severity QUALIFIERS: Non-pressure ulcer stage: with fat layer exposed Qualified Code(s): L97.922 - Non-pressure chronic ulcer of unspecified part of left lower leg with fat layer exposed (3) Infected wound: CODE(S): T14.8XXA - Other injury of unspecified body region, initial encounter; L08.9 - Local infection of the skin and subcutaneous tissue, unspecified PLAN: Cultures came back negative 12/23/24 1143 <Electronically signed by Magdalena Whaley NP [employer]> Cosigner Signature (if applicable): CC: ~ Signed [facility] Work Phone: 1(645) 488-834608-20-[address] [facility] [address] [place] [address] Progress Note - Wound Care 12/23/24 1138 MR#: [id number] Acct: [id number] Name: CHEY JEFFERS Rep #:[id number] : 1960 63 From: Magdalena Whaley NP [employer] PCP: Dr. Edda Oconnor MD Status:RE G RCR Location: History of Present Illness Date of Service: 12/23/24 Chief Complaint: Left lower walls from a fall on some wooden steps outside her house seen in the emergency room on October 22 History of Wound: 63-year-old white female that had sutures put in the dehisced and now she has a well-approximated wound but it has a lot of blackened scabs and peeling skin. Progress of Wound: Left leg is healed patient be discharged from the wound center Subjective Subjective He still complains of burning pain I told her padding it would be best with a sock or does not needto wear dressing but she can wear socks at a padded sock on that area. Objective Data Objective Data All the areas are closed patient tolerated treatments well patient be dischargedfrom the wound center. Vital Signs: Vital Signs Temp Pulse Resp BP O2 Del Method 97.9 F 92 18 127/51 H Room Air 12/23/24 08:57 12/23/24 08:57 12/23/24 08:57 12/23/24 08:57 12/16/24 08:40 Oxygen Delivery Method Room Air Physical Exam Const oriented x3 General Appearance: cooperative Exam Limitations: no limitations HEENT normocephalic Face and Sinus: normal facial exam External Ear: external ears normal Eyes General Eye: normal appearance of both eyes Neck full ROM General: normal visual inspection Resp normal respiratory effort Effort and Inspection: able to speak in complete sentences Auscultation: clear to auscultation bilaterally Cardio regular rate and regular rhythm Palpation: normal PMI Rate: regular rate Rhythm: regular rhythm GI Palpation: no hepatosplenomegaly Back/Spine Cervical Spine: cervical ROM normal Thoracic Spine / Upper Back: normal to inspection Lumbar Spine / Lower Back: normal to inspection Extremity General Extremity: normal exam except as noted, edema and other findings Other Details: Wound on the left walls Skin Wounds: wounds noted Wound Narrative: Left walls well scabbed not healed Neuro oriented x3 Psych Appearance: grossly normal Speech: normal speech Thought Content: normal thought content Judgement: judgement good Debridement Note Debridement Note No debridement was completed: No debridement was completed today Post-Debridement Measurements and Additional Note: Post-Debridement Measurements/Treatment - Nurse 1 - General Ulcer Assessment Start: 12/09/24 08:36 Freq: Status: Active Protocol: LEX Activity Type Activity Date Activity User E-sign Co-sign Detail Recorded Client Recorded Date Recorded By Document 12/09/24 08:36 DL [id number] 12/09/24 08:43 DL Document 12/16/24 08:40 MT [id number] 12/16/24 08:46 MT Document 12/23/24 08:57 RB [id number] 12/23/24 08:59 RB 12/09/24 12/16/24 12/23/24 08:36 08:40 08:57 - Today's Visit Information Type of service Follow-up Visit Follow-up Visit Follow-up Visit (Physician/GEOSCIENCE LABORATORY TECHNICIAN (Physician/GEOSCIENCE LABORATORY TECHNICIAN (Physician/GEOSCIENCE LABORATORY TECHNICIAN ) ) ) Arrival Mode Ambulatory Ambulatory Ambulatory Transfer Assistance None None Accompanied by brother Patient Identification Verified (Name & Yes Yes Yes ) Patient Requires Transmission-Based No No Precautions Safety Precautions Fall Prevention Vital Signs Temperature (97.8 F-99.1 F) 97.7 F L 97.5 F L 97.9 F Temperature Source Temporal Temporal Temporal Pulse Rate (60-100) 98 96 92 Pulse Location Monitor Monitor Monitor Respiratory Rate (12-18) 16 18 18 Respiratory rate source Observation Observation Observation Oxygen Delivery Method Room Air Blood Pressure (90/60-120/80) 162/79 H 144/77 H 127/51 H Blood Pressure Mean (mm Hg) 106 99 76 Source Monitor Monitor Monitor Position Sitting Sitting Blood Pressure Location Left Arm Left Arm History Since Last Visit- (Skip if this is Patient's initial visit) Have you changed medications since your No No last visit? Any new allergies or adverse reactions No No Had a fall/change in ADL's that may No No increase risk of falls Signs or symptoms of abuse and/or No No neglect since last visit Have you been in the hospital since your No No last visit? Has dressing in place as prescribed Yes Yes Yes Has compression in place as prescribed Yes Yes Yes Has offloadiing in place as prescribed N/A Yes N/A Experienced any changes in pain level or No Yes No management Left Footwear Regular Shoe Regular Shoe Right Footwear Regular Shoe Regular Shoe Pain Scale: 0-10 Numeric Is Patient Pain Free? Yes Yes Yes WC - Nurse 1 - General Ulcer Measurement Start: 12/09/24 08:36 Freq: Status: Active Protocol: Activity Type Activity Date Activity User E-sign Co-sign Detail Recorded Client Recorded Date Recorded By Document 12/09/24 08:36 DL [id number] 12/09/24 08:43 DL Document 12/16/24 08:40 MT [id number] 12/16/24 08:46 MT Document 12/23/24 08:57 RB [id number] 12/23/24 08:59 RB 12/09/24 12/16/24 12/23/24 08:36 08:40 08:57 Wound Center Nurse 1 #2 L Walls Cluster -Combined with other wound No -Current Size (cm) - Length 4.3 6 0.1 -Current Size (cm) - Width 0.5 0.5 0.1 -Current Size (cm) - Depth 0.1 0.1 0.1 -Total Square Cm 2.15 3.0 0.01 -Date of Last Picture (Recall this 12/16/24 field) -Photo Taken Yes Yes Yes -Epithelialization Large 67-100% -Tunneling No -Undermining/Tunneling No -Circular Undermining No -Exudate Amt Small Medium None Present -Exudate Type Serosanguineous Serosanguineous -Wound Margin Distinct, Flat & Intact Distinct, Outline Outline Attached Attached -Granulation Amt None Present (0 Large (67-100%) Large (67-100%) %) -Granulation Quality Pale,Southside Southside -Slough/Fibrin No -Necrosis Amt Medium (34-66%) Small (1-33%) None Present (0 %) -Necrotic Tissue Type Adherent Slough Adherent Slough -Structure Exposed N/A N/A -Texture (Adry-wound Skin Appearance) Scarring Assessed Assessed, Scarring -Moisture (Adry-wound Skin Appearance) No Abnormality Assessed Assessed -Color (Adry-wound Skin Appearance) No Abnormality Assessed Assessed -Temperature (Adry-wound Skin No Abnormality No Abnormality No Abnormality Appearance) (Pt Warm) (Pt Warm) (Pt Warm) -Tenderness on Palpation (Adry-wound No No Skin Appearance) -Ulcer Cleansing Soap and Water Soap and Water Wound Cleanser -Foul Odor after Cleansing No No No -Anesthetic Used 5% Lidocaine 5% Lidocaine 5% Lidocaine Gel Gel Gel Lower Limb Edema Present NA Yes Left Calf (cm) 30.5 Left Ankle (cm) 18 WC - Nurse 2 - General Ulcer CM Notes Start: 12/09/24 08:36 Freq: Status: Active Protocol: Activity Type Activity Date Activity User E-sign Co-sign Detail Recorded Client Recorded Date Recorded By Document 12/09/24 08:54 DS [id number] 12/09/24 08:57 DS Document 12/16/24 08:59 [facility] [id number] 12/16/24 09:04 BMF Document 12/23/24 09:13 [facility] [id number] 12/23/24 09:15 F 12/09/24 12/16/24 12/23/24 08:54 08:59 09:13 Wound Center Nurse 2 #2 L Walls Cluster -Time 08:54 09:00 09:13 -Correct Patient Yes Yes -Correct Side, Site, Position Yes Yes -Correct Procedure Yes Yes -Procedure Performed Yes Yes No -Type of Procedure Debridement Debridement -Clinical Debridement Subcutaneous Subcutaneous -Tissue Removed Subcutaneous Subcutaneous -Post Debridement (cm) - Length 4.5 9 0 -Post Debridement (cm) - Width 1.5 3.5 0 -Post Debridement (cm) - Depth 0.2 0.1 0 -Total Square (Post) (cm) 6.75 31.5 0 -Area of Debridement (cm) - Length 4.5 9 0 -Area of Debridement (cm) - Width 1.5 3.5 0 -Total Square (Area) (cm) 6.75 31.5 0 -Tunneling No No -Undermining/Tunneling No No -Circular Undermining No No -Wound/Ulcer Outcome Not Healed Not Healed Healed- Epithelialized -Ulcer Cleansing Rinsed/ Rinsed/ Irrigated with Irrigated with Saline Saline -Foul Odor after Cleansing No No -Bioengineered Tissue No No -Bleeding Controlled with Pressure Pressure NA -Treatment Response Procedure Procedure Tolerated Well Tolerated Well -Debridement - Subq, 1st 20sq cm Yes Yes -Debridement, SubQ, ea addt'l 20sq cm 1 or part thereof Pain Scale: 0-10 Numeric Is Patient Pain Free? No Yes Yes LLE -Description Throbbing -Intensity 5 -Duration (hours) Chronic -Pain Behavior Facial Grimacing -Pain Aggravating Factors Debridement -Alleviating Factors/Interventions Will continue to monitor - Nurse 3 - General Ulcer D/C NN Start: 12/09/24 08:36 Freq: Status: Active Protocol: Activity Type Activity Date Activity User E-sign Co-sign Detail Recorded Client Recorded Date Recorded By Document 12/09/24 09:10 RB [id number] 12/09/24 09:10 RB Document 12/16/24 09:12 [facility] [id number] 12/16/24 09:14 [facility] Document 12/23/24 09:21 DL [id number] 12/23/24 09:22 DL 12/09/24 12/16/24 12/23/24 09:10 09:12 09:21 Wound Care Center Nurse 3 #2 L Walls Cluster -Ulcer Cleansing Rinsed/ Rinsed/ Not Cleansed Irrigated with Irrigated with Saline Saline -Foul Odor after Cleansing No -Primary Dressing Applied Aquacel Extra Aquacel Extra -Other Dressing ABD abd -Primary Dressing Covered/Secured with Dry Gauze & Dry Gauze & Roll Gauze, Roll Gauze, Secured with Secured with Tape Tape -Aquacel Extra 1 3 -Wound Comment(s) Healed. no dressing. Discharged. LLE -Tubular Bandage Double Layer Double Layer -Size of Tubigrip Used Size E Size E -Size E ($) 2 2 Treatment Response Procedure Tolerated Well Pain Scale: 0-10 Numeric Is Patient Pain Free? Yes Yes Yes WC - Visit Discharge Discharge Condition Stable Stable Stable Ambulatory Status Ambulatory Ambulatory Ambulatory Transportation Private Auto Private Auto Private Auto Accompanied by brother Medication Reconcilliation completed & No provided to patient/care provider Clinical Summary of Care Provided Yes Assessment/Plan Assessment/Plan (1) Nonhealing surgical wound: CODE(S): T81.89XA - Other complications of procedures, 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ssified, initial encounter QUALIFIERS: Encounter type: initial encounter Qualified Code(s): T81.89XA - Other complications of procedures, 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ssified, initial encounter PLAN: Discharge from the wound center follow-up as needed (2) Traumatic ulcer of left lower leg: CODE(S): L97.929 - Non-pressure chronic ulcer of unspecified part of left lower leg with unspecified severity QUALIFIERS: Non-pressure ulcer stage: with fat layer exposed Qualified Code(s): L97.922 - Non-pressure chronic ulcer of unspecified part of left lower leg with fat layer exposed (3) Infected wound: CODE(S): T14.8XXA - Other injury of unspecified body region, initial encounter; L08.9 - Local infection of the skin and subcutaneous tissue, unspecified PLAN: Cultures came back negative 12/23/24 1143 Cosigner Signature (if applicable): CC: ~ Signed [facility]08-13-2025 Progress note Author Magdalena Whaley [facility] Note Date/Time December 16, 2024 11 :41am [facility] [address] [place] [id number] Progress Note - Wound Care 12/16/24 0958 MR#: [id number] Acct: [id number] Name: CHEY JEFFERS Rep #:[id number] : 1960 63 From: Magdalena Whaley NP E[employer]RIC SPOT WELDER-C PCP: Dr. Edda Oconnor MD Status:TITA Menendez RCR Location: History of Present Illness Date of Service: 12/16/24 Chief Complaint: Left lower walls from a fall on some wooden steps outside her house seen in the emergency room on October 22 History of Wound: 63-year-old white female that had sutures put in the dehisced and now she has a well-approximated wound but it has a lot of blackened scabs and peeling skin. Progress of Wound: Switching her from the Xeroform to Aquacel extra make a big difference. She is get a thin line now of open skin still very tender at the inferior portion of the wound but it is much smaller half the size that it was last week. We stopped using Adaptic because it was make it macerated also. So we will continue using the Aquacel extra. Patient is being good about increasing her protein intake and wearing correct shoe so she does not fall. The area that we are talking about now is more like sporadic open areas inside the wound it is not 1 area that is open but it makes it look like it is for the full length of the wound. Subjective Subjective Patient states she ran out of her Aquacel extra and had to use the Xeroform for the last 2 days. Objective Data Objective Data Small open superficial openings along the wound each 1 is just a round opening that has not healed yet that makes the wound look as big as it has been. Patient is tolerating the Aquacel extra she is doing well at caring for it is healing nicely with no signs of infection noted. We will continue using the Aquacel follow-up in 1 week Vital Signs: Vital Signs Temp Pulse Resp BP O2 Del Method 97.5 F L 96 18 144/77 H Room Air 12/16/24 08:40 12/16/24 08:40 12/16/24 08:40 12/16/24 08:40 12/16/24 08:40 Oxygen Delivery Method Room Air Lab / Micro Data Attestation: I reviewed the patient's lab results. Physical Exam Const oriented x3 General Appearance: cooperative Exam Limitations: no limitations HEENT normocephalic Face and Sinus: normal facial exam External Ear: external ears normal Eyes General Eye: normal appearance of both eyes Neck full ROM General: normal visual inspection Resp normal respiratory effort Effort and Inspection: able to speak in complete sentences Auscultation: clear to auscultation bilaterally Cardio regular rate and regular rhythm Palpation: normal PMI Rate: regular rate Rhythm: regular rhythm GI Palpation: no hepatosplenomegaly Back/Spine Cervical Spine: cervical ROM normal Thoracic Spine / Upper Back: normal to inspection Lumbar Spine / Lower Back: normal to inspection Extremity General Extremity: normal exam except as noted, edema and other findings Other Details: Wound on the left walls Skin Wounds: wounds noted Wound Narrative: Left walls well scabbed not healed Neuro oriented x3 Psych Appearance: grossly normal Speech: normal speech Thought Content: normal thought content Judgement: judgement good Debridement Note Debridement Note Wound debrided: Traumatic left walls wound Laterality: Left Type of Debridement: Excisional debridement Anesthesia Used: 5% Lidocaine Gel Depth: Down to and including healthy tissue and in the subcutaneous layer Percentage of wound debrided: 100 Instrument Used: 5mm curette Tissue Removed: Devitalized tissue and slough Severity: Fat Layer Exposed Amount of bleeding with debridement: Mild Bleeding Controlled with: Compression and gauze Patient tolerated procedure: Patient tolerated procedure well Post-Debridement Measurements and Additional Note: Post-Debridement Measurements/Treatment - Nurse 1 - General Ulcer Assessment Start: 12/09/24 08:36 Freq: Status: Active Protocol: LEX Activity Type Activity Date Activity User E-sign Co-sign Detail Recorded Client Recorded Date Recorded By Document 12/09/24 08:36 DL [id number] 12/09/24 08:43 DL Document 12/16/24 08:40 MT [id number] 12/16/24 08:46 MT 12/09/24 12/16/24 08:36 08:40 - Today's Visit Information Type of service Follow-up Visit Follow-up Visit (Physician/GEOSCIENCE LABORATORY TECHNICIAN (Physician/GEOSCIENCE LABORATORY TECHNICIAN ) ) Arrival Mode Ambulatory Ambulatory Transfer Assistance None Accompanied by brother Patient Identification Verified (Name & Yes Yes ) Patient Requires Transmission-Based No Precautions Safety Precautions Fall Prevention Vital Signs Temperature (97.8 F-99.1 F) 97.7 F L 97.5 F L Temperature Source Temporal Temporal Pulse Rate (60-100) 98 96 Pulse Location Monitor Monitor Respiratory Rate (12-18) 16 18 Respiratory rate source Observation Observation Oxygen Delivery Method Room Air Blood Pressure (90/60-120/80) 162/79 H 144/77 H Blood Pressure Mean (mm Hg) 106 99 Source Monitor Monitor Position Sitting Blood Pressure Location Left Arm History Since Last Visit- (Skip if this is Patient's initial visit) Have you changed medications since your No last visit? Any new allergies or adverse reactions No Had a fall/change in ADL's that may No increase risk of falls Signs or symptoms of abuse and/or No neglect since last visit Have you been in the hospital since your No last visit? Has dressing in place as prescribed Yes Yes Has compression in place as prescribed Yes Yes Has offloadiing in place as prescribed N/A Yes Experienced any changes in pain level or No Yes management Left Footwear Regular Shoe Right Footwear Regular Shoe Pain Scale: 0-10 Numeric Is Patient Pain Free? Yes Yes WC - Nurse 1 - General Ulcer Measurement Start: 12/09/24 08:36 Freq: Status: Active Protocol: Activity Type Activity Date Activity User E-sign Co-sign Detail Recorded Client Recorded Date Recorded By Document 12/09/24 08:36 DL [id number] 12/09/24 08:43 DL Document 12/16/24 08:40 MT [id number] 12/16/24 08:46 MT 12/09/24 12/16/24 08:36 08:40 Wound Center Nurse 1 #2 L Walls Cluster -Current Size (cm) - Length 4.3 6 -Current Size (cm) - Width 0.5 0.5 -Current Size (cm) - Depth 0.1 0.1 -Total Square Cm 2.15 3.0 -Date of Last Picture (Recall this 12/16/24 field) -Photo Taken Yes Yes -Tunneling No -Undermining/Tunneling No -Circular Undermining No -Exudate Amt Small Medium -Exudate Type Serosanguineous Serosanguineous -Wound Margin Distinct, Flat & Intact Outline Attached -Granulation Amt None Present (0 Large (67-100%) %) -Granulation Quality Pale,[place] -Necrosis Amt Medium (34-66%) Small (1-33%) -Necrotic Tissue Type Adherent Slough Adherent Slough -Structure Exposed N/A -Texture (Adry-wound Skin Appearance) Scarring Assessed -Moisture (Adry-wound Skin Appearance) No Abnormality Assessed -Color (Adry-wound Skin Appearance) No Abnormality Assessed -Temperature (Adry-wound Skin No Abnormality No Abnormality Appearance) (Pt Warm) (Pt Warm) -Tenderness on Palpation (Adry-wound No Skin Appearance) -Ulcer Cleansing Soap and Water Soap and Water -Foul Odor after Cleansing No No -Anesthetic Used 5% Lidocaine 5% Lidocaine Gel Gel Lower Limb Edema Present NA WC - Nurse 2 - General Ulcer CM Notes Start: 12/09/24 08:36 Freq: Status: Active Protocol: Activity Type Activity Date Activity User E-sign Co-sign Detail Recorded Client Recorded Date Recorded By Document 12/09/24 08:54 DS [id number] 12/09/24 08:57 DS Document 12/16/24 08:59 [facility] [id number] 12/16/24 09:04 [facility] 12/09/24 12/16/24 08:54 08:59 Wound Center Nurse 2 #2 L Mariano Cluster -Time 08:54 09:00 -Correct Patient Yes Yes -Correct Side, Site, Position Yes Yes -Correct Procedure Yes Yes -Procedure Performed Yes Yes -Type of Procedure Debridement Debridement -Clinical Debridement Subcutaneous Subcutaneous -Tissue Removed Subcutaneous Subcutaneous -Post Debridement (cm) - Length 4.5 9 -Post Debridement (cm) - Width 1.5 3.5 -Post Debridement (cm) - Depth 0.2 0.1 -Total Square (Post) (cm) 6.75 31.5 -Area of Debridement (cm) - Length 4.5 9 -Area of Debridement (cm) - Width 1.5 3.5 -Total Square (Area) (cm) 6.75 31.5 -Tunneling No No -Undermining/Tunneling No No -Circular Undermining No No -Wound/Ulcer Outcome Not Healed Not Healed -Ulcer Cleansing Rinsed/ Rinsed/ Irrigated with Irrigated with Saline Saline -Foul Odor after Cleansing No No -Bioengineered Tissue No No -Bleeding Controlled with Pressure Pressure -Treatment Response Procedure Procedure Tolerated Well Tolerated Well -Debridement - Subq, 1st 20sq cm Yes Yes -Debridement, SubQ, ea addt'l 20sq cm 1 or part thereof Pain Scale: 0-10 Numeric Is Patient Pain Free? No Yes LLE -Description Throbbing -Intensity 5 -Duration (hours) Chronic -Pain Behavior Facial Grimacing -Pain Aggravating Factors Debridement -Alleviating Factors/Interventions Will continue to monitor - Nurse 3 - General Ulcer D/C NN Start: 12/09/24 08:36 Freq: Status: Active Protocol: Activity Type Activity Date Activity User E-sign Co-sign Detail Recorded Client Recorded Date Recorded By Document 12/09/24 09:10 RB [id number] 12/09/24 09:10 RB Document 12/16/24 09:12 [facility] [id number] 12/16/24 09:14 [facility] 12/09/24 12/16/24 09:10 09:12 Wound Care Center Nurse 3 #2 L Walls Cluster -Ulcer Cleansing Rinsed/ Rinsed/ Irrigated with Irrigated with Saline Saline -Foul Odor after Cleansing No -Primary Dressing Applied Aquacel Extra Aquacel Extra -Other Dressing ABD abd -Primary Dressing Covered/Secured with Dry Gauze & Dry Gauze & Roll Gauze, Roll Gauze, Secured with Secured with Tape Tape -Aquacel Extra 1 3 LLE -Tubular Bandage Double Layer Double Layer -Size of Tubigrip Used Size E Size E -Size E ($) 2 2 Treatment Response Procedure Tolerated Well Pain Scale: 0-10 Numeric Is Patient Pain Free? Yes Yes WC - Visit Discharge Discharge Condition Stable Stable Ambulatory Status Ambulatory Ambulatory Transportation Private Auto Private Auto Accompanied by brother Medication Reconcilliation completed & No provided to patient/care provider Clinical Summary of Care Provided Yes Assessment/Plan Assessment/Plan (1) Nonhealing surgical wound: CODE(S): T81.89XA - Other complications of procedures, 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ssified, initial encounter QUALIFIERS: Encounter type: initial encounter Qualified Code(s): T81.89XA - Other complications of procedures, 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ssified, initial encounter PLAN: Wash left leg with Hibiclens or with antibacterial soap and water and apply Aquacel extra moistened then gauze ABD and Stacey to left leg with a doublelayer Tubigrip over top this is to be done daily. Follow-up in 1 week (2) Traumatic ulcer of left lower leg: CODE(S): L97.929 - Non-pressure chronic ulcer of unspecified part of left lower leg with unspecified severity QUALIFIERS: Non-pressure ulcer stage: with fat layer exposed Qualified Code(s): L97.922 - Non-pressure chronic ulcer of unspecified part of left lower leg with fat layer exposed (3) Infected wound: CODE(S): T14.8XXA - Other injury of unspecified body region, initial encounter; L08.9 - Local infection of the skin and subcutaneous tissue, unspecified PLAN: Cultures came back negative 12/16/24 1141 <Electronically signed by Magdalena Whaley NP [employer]> Cosigner Signature (if applicable): CC: ~ Signed [facility] Work Phone: [phone] [facility] [address] [place] [address] Progress Note - Wound Care 12/16/24 0958 MR#: [id number] Acct: [id number] Name: CHEY JEFFERS Rep #:[id number] : 1960 63 From: Magdalena Whaley NP [employer] PCP: Dr. Edda Oconnor MD Status:RE G RCR Location: History of Present Illness Date of Service: 12/16/24 Chief Complaint: Left lower walls from a fall on some wooden steps outside her house seen in the emergency room on October 22 History of Wound: 63-year-old white female that had sutures put in the dehisced and now she has a well-approximated wound but it has a lot of blackened scabs and peeling skin. Progress of Wound: Switching her from the Xeroform to Aquacel extra make a big difference. She is get a thin line now of open skin still very tender at the inferior portion of the wound but it is much smaller half the size that it was last week. We stopped using Adaptic because it was make it macerated also. So we will continue using the Aquacel extra. Patient is being good about increasing her protein intake and wearing correct shoe so she does not fall. The area that we are talking about now is more like sporadic open areas inside the wound it is not 1 area that is open but it makes it look like it is for the full length of the wound. Subjective Subjective Patient states she ran out of her Aquacel extra and had to use the Xeroform for the last 2 days. Objective Data Objective Data Small open superficial openings along the wound each 1 is just a round opening that has not healed yet that makes the wound look as big as it has been. Patient is tolerating the Aquacel extra she is doing well at caring for it is healing nicely with no signs of infection noted. We will continue using the Aquacel follow-up in 1 week Vital Signs: Vital Signs Temp Pulse Resp BP O2 Del Method 97.5 F L 96 18 144/77 H Room Air 12/16/24 08:40 12/16/24 08:40 12/16/24 08:40 12/16/24 08:40 12/16/24 08:40 Oxygen Delivery Method Room Air Lab / Micro Data Attestation: I reviewed the patient's lab results. Physical Exam Const oriented x3 General Appearance: cooperative Exam Limitations: no limitations HEENT normocephalic Face and Sinus: normal facial exam External Ear: external ears normal Eyes General Eye: normal appearance of both eyes Neck full ROM General: normal visual inspection Resp normal respiratory effort Effort and Inspection: able to speak in complete sentences Auscultation: clear to auscultation bilaterally Cardio regular rate and regular rhythm Palpation: normal PMI Rate: regular rate Rhythm: regular rhythm GI Palpation: no hepatosplenomegaly Back/Spine Cervical Spine: cervical ROM normal Thoracic Spine / Upper Back: normal to inspection Lumbar Spine / Lower Back: normal to inspection Extremity General Extremity: normal exam except as noted, edema and other findings Other Details: Wound on the left walls Skin Wounds: wounds noted Wound Narrative: Left walls well scabbed not healed Neuro oriented x3 Psych Appearance: grossly normal Speech: normal speech Thought Content: normal thought content Judgement: judgement good Debridement Note Debridement Note Wound debrided: Traumatic left walls wound Laterality: Left Type of Debridement: Excisional debridement Anesthesia Used: 5% Lidocaine Gel Depth: Down to and including healthy tissue and in the subcutaneous layer Percentage of wound debrided: 100 Instrument Used: 5mm curette Tissue Removed: Devitalized tissue and slough Severity: Fat Layer Exposed Amount of bleeding with debridement: Mild Bleeding Controlled with: Compression and gauze Patient tolerated procedure: Patient tolerated procedure well Post-Debridement Measurements and Additional Note: Post-Debridement Measurements/Treatment WC - Nurse 1 - General Ulcer Assessment Start: 12/09/24 08:36 Freq: Status: Active Protocol: LEX Activity Type Activity Date Activity User E-sign Co-sign Detail Recorded Client Recorded Date Recorded By Document 12/09/24 08:36 DL [id number] 12/09/24 08:43 DL Document 12/16/24 08:40 MT [id number] 12/16/24 08:46 MT 12/09/24 12/16/24 08:36 08:40 - Today's Visit Information Type of service Follow-up Visit Follow-up Visit (Physician/GEOSCIENCE LABORATORY TECHNICIAN (Physician/GEOSCIENCE LABORATORY TECHNICIAN ) ) Arrival Mode Ambulatory Ambulatory Transfer Assistance None Accompanied by brother Patient Identification Verified (Name & Yes Yes ) Patient Requires Transmission-Based No Precautions Safety Precautions Fall Prevention Vital Signs Temperature (97.8 F-99.1 F) 97.7 F L 97.5 F L Temperature Source Temporal Temporal Pulse Rate (60-100) 98 96 Pulse Location Monitor Monitor Respiratory Rate (12-18) 16 18 Respiratory rate source Observation Observation Oxygen Delivery Method Room Air Blood Pressure (90/60-120/80) 162/79 H 144/77 H Blood Pressure Mean (mm Hg) 106 99 Source Monitor Monitor Position Sitting Blood Pressure Location Left Arm History Since Last Visit- (Skip if this is Patient's initial visit) Have you changed medications since your No last visit? Any new allergies or adverse reactions No Had a fall/change in ADL's that may No increase risk of falls Signs or symptoms of abuse and/or No neglect since last visit Have you been in the hospital since your No last visit? Has dressing in place as prescribed Yes Yes Has compression in place as prescribed Yes Yes Has offloadiing in place as prescribed N/A Yes Experienced any changes in pain level or No Yes management Left Footwear Regular Shoe Right Footwear Regular Shoe Pain Scale: 0-10 Numeric Is Patient Pain Free? Yes Yes WC - Nurse 1 - General Ulcer Measurement Start: 12/09/24 08:36 Freq: Status: Active Protocol: Activity Type Activity Date Activity User E-sign Co-sign Detail Recorded Client Recorded Date Recorded By Document 12/09/24 08:36 DL [id number] 12/09/24 08:43 DL Document 12/16/24 08:40 MT [id number] 12/16/24 08:46 MT 12/09/24 12/16/24 08:36 08:40 Wound Center Nurse 1 #2 L Walls Cluster -Current Size (cm) - Length 4.3 6 -Current Size (cm) - Width 0.5 0.5 -Current Size (cm) - Depth 0.1 0.1 -Total Square Cm 2.15 3.0 -Date of Last Picture (Recall this 12/16/24 field) -Photo Taken Yes Yes -Tunneling No -Undermining/Tunneling No -Circular Undermining No -Exudate Amt Small Medium -Exudate Type Serosanguineous Serosanguineous -Wound Margin Distinct, Flat & Intact Outline Attached -Granulation Amt None Present (0 Large (67-100%) %) -Granulation Quality Pale,[place] -Necrosis Amt Medium (34-66%) Small (1-33%) -Necrotic Tissue Type Adherent Slough Adherent Slough -Structure Exposed N/A -Texture (Adry-wound Skin Appearance) Scarring Assessed -Moisture (Adry-wound Skin Appearance) No Abnormality Assessed -Color (Adry-wound Skin Appearance) No Abnormality Assessed -Temperature (Adry-wound Skin No Abnormality No Abnormality Appearance) (Pt Warm) (Pt Warm) -Tenderness on Palpation (Adry-wound No Skin Appearance) -Ulcer Cleansing Soap and Water Soap and Water -Foul Odor after Cleansing No No -Anesthetic Used 5% Lidocaine 5% Lidocaine Gel Gel Lower Limb Edema Present NA WC - Nurse 2 - General Ulcer CM Notes Start: 12/09/24 08:36 Freq: Status: Active Protocol: Activity Type Activity Date Activity User E-sign Co-sign Detail Recorded Client Recorded Date Recorded By Document 12/09/24 08:54 DS [id number] 12/09/24 08:57 DS Document 12/16/24 08:59 BMF [id number] 12/16/24 09:04 BMF 12/09/24 12/16/24 08:54 08:59 Wound Center Nurse 2 #2 L Walls Cluster -Time 08:54 09:00 -Correct Patient Yes Yes -Correct Side, Site, Position Yes Yes -Correct Procedure Yes Yes -Procedure Performed Yes Yes -Type of Procedure Debridement Debridement -Clinical Debridement Subcutaneous Subcutaneous -Tissue Removed Subcutaneous Subcutaneous -Post Debridement (cm) - Length 4.5 9 -Post Debridement (cm) - Width 1.5 3.5 -Post Debridement (cm) - Depth 0.2 0.1 -Total Square (Post) (cm) 6.75 31.5 -Area of Debridement (cm) - Length 4.5 9 -Area of Debridement (cm) - Width 1.5 3.5 -Total Square (Area) (cm) 6.75 31.5 -Tunneling No No -Undermining/Tunneling No No -Circular Undermining No No -Wound/Ulcer Outcome Not Healed Not Healed -Ulcer Cleansing Rinsed/ Rinsed/ Irrigated with Irrigated with Saline Saline -Foul Odor after Cleansing No No -Bioengineered Tissue No No -Bleeding Controlled with Pressure Pressure -Treatment Response Procedure Procedure Tolerated Well Tolerated Well -Debridement - Subq, 1st 20sq cm Yes Yes -Debridement, SubQ, ea addt'l 20sq cm 1 or part thereof Pain Scale: 0-10 Numeric Is Patient Pain Free? No Yes LLE -Description Throbbing -Intensity 5 -Duration (hours) Chronic -Pain Behavior Facial Grimacing -Pain Aggravating Factors Debridement -Alleviating Factors/Interventions Will continue to monitor WC - Nurse 3 - General Ulcer D/C NN Start: 12/09/24 08:36 Freq: Status: Active Protocol: Activity Type Activity Date Activity User E-sign Co-sign Detail Recorded Client Recorded Date Recorded By Document 12/09/24 09:10 RB [id number] 12/09/24 09:10 RB Document 12/16/24 09:12 [facility] [id number] 12/16/24 09:14 BMF 12/09/24 12/16/24 09:10 09:12 Wound Care Center Nurse 3 #2 L Walls Cluster -Ulcer Cleansing Rinsed/ Rinsed/ Irrigated with Irrigated with Saline Saline -Foul Odor after Cleansing No -Primary Dressing Applied Aquacel Extra Aquacel Extra -Other Dressing ABD abd -Primary Dressing Covered/Secured with Dry Gauze & Dry Gauze & Roll Gauze, Roll Gauze, Secured with Secured with Tape Tape -Aquacel Extra 1 3 LLE -Tubular Bandage Double Layer Double Layer -Size of Tubigrip Used Size E Size E -Size E ($) 2 2 Treatment Response Procedure Tolerated Well Pain Scale: 0-10 Numeric Is Patient Pain Free? Yes Yes WC - Visit Discharge Discharge Condition Stable Stable Ambulatory Status Ambulatory Ambulatory Transportation Private Auto Private Auto Accompanied by brother Medication Reconcilliation completed & No provided to patient/care provider Clinical Summary of Care Provided Yes Assessment/Plan Assessment/Plan (1) Nonhealing surgical wound: CODE(S): T81.89XA - Other complications of procedures, 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ssified, initial encounter QUALIFIERS: Encounter type: initial encounter Qualified Code(s): T81.89XA - Other complications of procedures, 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ssified, initial encounter PLAN: Wash left leg with Hibiclens or with antibacterial soap and water and apply Aquacel extra moistened then gauze ABD and Stacey to left leg with a doublelayer Tubigrip over top this is to be done daily. Follow-up in 1 week (2) Traumatic ulcer of left lower leg: CODE(S): L97.929 - Non-pressure chronic ulcer of unspecified part of left lower leg with unspecified severity QUALIFIERS: Non-pressure ulcer stage: with fat layer exposed Qualified Code(s): L97.922 - Non-pressure chronic ulcer of unspecified part of left lower leg with fat layer exposed (3) Infected wound: CODE(S): T14.8XXA - Other injury of unspecified body region, initial encounter; L08.9 - Local infection of the skin and subcutaneous tissue, unspecified PLAN: Cultures came back negative 12/16/24 1141 Cosigner Signature (if applicable): CC: ~ Signed [facility]08-06-2025 Progress note Author Magdalena Whaley [facility] Note Date/Time December 09, 2024 10: 00am [facility] [address] [place] [address] Progress Note - Wound Care 12/09/24 0949 MR#: [id number] Acct: [id number] Name: CHEY JEFFERS Rep #:[id number] : 1960 63 From: Magdalena Whaley NP [employer] PCP: Dr. Edda Oconnor MD Status:RE G RCR Location: History of Present Illness Date of Service: 12/09/24 Chief Complaint: Left lower walls from a fall on some wooden steps outside her house seen in the emergency room on October 22 History of Wound: 63-year-old white female that had sutures put in the dehisced and now she has a well-approximated wound but it has a lot of blackened scabs and peeling skin. Progress of Wound: Switching her from the Xeroform to Aquacel extra make a big difference. She is get a thin line now of open skin still very tender at the inferior portion of the wound but it is much smaller half the size that it was last week. We stopped using Adaptic because it was make it macerated also. So we will continue using the Aquacel extra and follow-up in 1 more week she only has about1-2 more weeks left and it should be healed. Patient is being good about increasing her protein intake and wearing correct shoe so she does not fall. Subjective Subjective Patient is very pleased with outcomes Objective Data Objective Data Again no sign of infection healing very well half the size it was. Will continue using Aquacel extra. Vital Signs: Vital Signs Temp Pulse Resp BP 97.7 F L 98 16 162/79 H 12/09/24 08:36 12/09/24 08:36 12/09/24 08:36 12/09/24 08:36 Physical Exam Const oriented x3 General Appearance: cooperative Exam Limitations: no limitations HEENT normocephalic Face and Sinus: normal facial exam External Ear: external ears normal Eyes General Eye: normal appearance of both eyes Neck full ROM General: normal visual inspection Resp normal respiratory effort Effort and Inspection: able to speak in complete sentences Auscultation: clear to auscultation bilaterally Cardio regular rate and regular rhythm Palpation: normal PMI Rate: regular rate Rhythm: regular rhythm GI Palpation: no hepatosplenomegaly Back/Spine Cervical Spine: cervical ROM normal Thoracic Spine / Upper Back: normal to inspection Lumbar Spine / Lower Back: normal to inspection Extremity General Extremity: normal exam except as noted, edema and other findings Other Details: Wound on the left walls Skin Wounds: wounds noted Wound Narrative: Left walls well scabbed not healed Neuro oriented x3 Psych Appearance: grossly normal Speech: normal speech Thought Content: normal thought content Judgement: judgement good Debridement Note Debridement Note Wound debrided: Traumatic left walls wound Laterality: Left Type of Debridement: Excisional debridement Anesthesia Used: 5% Lidocaine Gel Depth: Down to and including healthy tissue and in the subcutaneous layer Percentage of wound debrided: 100 Instrument Used: 5mm curette Tissue Removed: Devitalized tissue and slough Severity: Fat Layer Exposed Amount of bleeding with debridement: Mild Bleeding Controlled with: Compression and gauze Patient tolerated procedure: Patient tolerated procedure well Post-Debridement Measurements and Additional Note: Post-Debridement Measurements/Treatment - Nurse 1 - General Ulcer Assessment Start: 12/09/24 08:36 Freq: Status: Active Protocol: SLIM.CESAR Activity Type Activity Date Activity User E-sign Co-sign Detail Recorded Client Recorded Date Recorded By Document 12/09/24 08:36 DL [id number] 12/09/24 08:43 DL 12/09/24 08:36 - Today's Visit Information Type of service Follow-up Visit (Physician/GEOSCIENCE LABORATORY TECHNICIAN ) Arrival Mode Ambulatory Transfer Assistance None Patient Identification Verified (Name & Yes ) Patient Requires Transmission-Based No Precautions Vital Signs Temperature (97.8 F-99.1 F) 97.7 F L Temperature Source Temporal Pulse Rate (60-100) 98 Pulse Location Monitor Respiratory Rate (12-18) 16 Respiratory rate source Observation Blood Pressure (90/60-120/80) 162/79 H Blood Pressure Mean (mm Hg) 106 Source Monitor History Since Last Visit- (Skip if this is Patient's initial visit) Have you changed medications since your No last visit? Any new allergies or adverse reactions No Had a fall/change in ADL's that may No increase risk of falls Signs or symptoms of abuse and/or No neglect since last visit Have you been in the hospital since your No last visit? Has dressing in place as prescribed Yes Has compression in place as prescribed Yes Has offloadiing in place as prescribed N/A Experienced any changes in pain level or No management Pain Scale: 0-10 Numeric Is Patient Pain Free? Yes WC - Nurse 1 - General Ulcer Measurement Start: 12/09/24 08:36 Freq: Status: Active Protocol: Activity Type Activity Date Activity User E-sign Co-sign Detail Recorded Client Recorded Date Recorded By Document 12/09/24 08:36 DL [id number] 12/09/24 08:43 DL 12/09/24 08:36 Wound Center Nurse 1 #2 L Walls Cluster -Current Size (cm) - Length 4.3 -Current Size (cm) - Width 0.5 -Current Size (cm) - Depth 0.1 -Total Square Cm 2.15 -Photo Taken Yes -Exudate Amt Small -Exudate Type Serosanguineous -Wound Margin Distinct, Outline Attached -Granulation Amt None Present (0 %) -Necrosis Amt Medium (34-66%) -Necrotic Tissue Type Adherent Slough -Structure Exposed N/A -Texture (Adry-wound Skin Appearance) Scarring -Moisture (Adry-wound Skin Appearance) No Abnormality -Color (Adry-wound Skin Appearance) No Abnormality -Temperature (Adry-wound Skin No Abnormality Appearance) (Pt Warm) -Ulcer Cleansing Soap and Water -Foul Odor after Cleansing No -Anesthetic Used 5% Lidocaine Gel WC - Nurse 2 - General Ulcer CM Notes Start: 12/09/24 08:36 Freq: Status: Active Protocol: Activity Type Activity Date Activity User E-sign Co-sign Detail Recorded Client Recorded Date Recorded By Document 12/09/24 08:54 DS [id number] 12/09/24 08:57 DS 12/09/24 08:54 Wound Center Nurse 2 -Time 08:54 -Correct Patient Yes -Correct Side, Site, Position Yes -Correct Procedure Yes -Procedure Performed Yes -Type of Procedure Debridement -Clinical Debridement Subcutaneous -Tissue Removed Subcutaneous -Post Debridement (cm) - Length 4.5 -Post Debridement (cm) - Width 1.5 -Post Debridement (cm) - Depth 0.2 -Total Square (Post) (cm) 6.75 -Area of Debridement (cm) - Length 4.5 -Area of Debridement (cm) - Width 1.5 -Total Square (Area) (cm) 6.75 -Tunneling No -Undermining/Tunneling No -Circular Undermining No -Wound/Ulcer Outcome Not Healed -Ulcer Cleansing Rinsed/ Irrigated with Saline -Foul Odor after Cleansing No -Bioengineered Tissue No -Bleeding Controlled with Pressure -Treatment Response Procedure Tolerated Well -Debridement - Subq, 1st 20sq cm Yes Pain Scale: 0-10 Numeric Is Patient Pain Free? No LLE -Description Throbbing -Intensity 5 -Duration (hours) Chronic -Pain Behavior Facial Grimacing -Pain Aggravating Factors Debridement -Alleviating Factors/Interventions Will continue to monitor - Nurse 3 - General Ulcer D/C NN Start: 12/09/24 08:36 Freq: Status: Active Protocol: Activity Type Activity Date Activity User E-sign Co-sign Detail Recorded Client Recorded Date Recorded By Document 12/09/24 09:10 [id number] 12/09/24 09:10 12/09/24 09:10 Wound Care Center Nurse 3 #2 L Walls Cluster -Ulcer Cleansing Rinsed/ Irrigated with Saline -Primary Dressing Applied Aquacel Extra -Other Dressing ABD -Primary Dressing Covered/Secured with Dry Gauze & Roll Gauze, Secured with Tape -Aquacel Extra 1 LLE -Tubular Bandage Double Layer -Size of Tubigrip Used Size E -Size E ($) 2 Treatment Response Procedure Tolerated Well Pain Scale: 0-10 Numeric Is Patient Pain Free? Yes - Visit Discharge Discharge Condition Stable Ambulatory Status Ambulatory Transportation Private Auto Medication Reconcilliation completed & No provided to patient/care provider Clinical Summary of Care Provided Yes Assessment/Plan Assessment/Plan (1) Nonhealing surgical wound: CODE(S): T81.89XA - Other complications of procedures, 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ssified, initial encounter QUALIFIERS: Encounter type: initial encounter Qualified Code(s): T81.89XA - Other complications of procedures, 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ssified, initial encounter PLAN: Wash left leg with Hibiclens or with antibacterial soap and water and apply Aquacel extra moistened then gauze ABD and Stacey to left leg with a doublelayer Tubigrip over top this is to be done daily. Follow-up in 1 week (2) Traumatic ulcer of left lower leg: CODE(S): L97.929 - Non-pressure chronic ulcer of unspecified part of left lower leg with unspecified severity QUALIFIERS: Non-pressure ulcer stage: with fat layer exposed Qualified Code(s): L97.922 - Non-pressure chronic ulcer of unspecified part of left lower leg with fat layer exposed (3) Infected wound: CODE(S): T14.8XXA - Other injury of unspecified body region, initial encounter; L08.9 - Local infection of the skin and subcutaneous tissue, unspecified PLAN: Cultures came back negative 12/09/24 1000 <Electronically signed by Magdalena Whaley NP [employer]> Cosigner Signature (if applicable): CC: ~ Signed [facility] Work Phone: [phone] [facility] [address] [place] [address] Progress Note - Wound Care 12/09/24 0949 MR#: [id number] Acct: [id number] Name: CHEY JEFFERS Rep #:[id number] : 1960 63 From: Magdalena Whaley NP [employer] PCP: Dr. Edda Oconnor MD Status:RE G RCR Location: History of Present Illness Date of Service: 12/09/24 Chief Complaint: Left lower walls from a fall on some wooden steps outside her house seen in the emergency room on October 22 History of Wound: 63-year-old white female that had sutures put in the dehisced and now she has a well-approximated wound but it has a lot of blackened scabs and peeling skin. Progress of Wound: Switching her from the Xeroform to Aquacel extra make a big difference. She is get a thin line now of open skin still very tender at the inferior portion of the wound but it is much smaller half the size that it was last week. We stopped using Adaptic because it was make it macerated also. So we will continue using the Aquacel extra and follow-up in 1 more week she only has about1-2 more weeks left and it should be healed. Patient is being good about increasing her protein intake and wearing correct shoe so she does not fall. Subjective Subjective Patient is very pleased with outcomes Objective Data Objective Data Again no sign of infection healing very well half the size it was. Will continue using Aquacel extra. Vital Signs: Vital Signs Temp Pulse Resp BP 97.7 F L 98 16 162/79 H 12/09/24 08:36 12/09/24 08:36 12/09/24 08:36 12/09/24 08:36 Physical Exam Const oriented x3 General Appearance: cooperative Exam Limitations: no limitations HEENT normocephalic Face and Sinus: normal facial exam External Ear: external ears normal Eyes General Eye: normal appearance of both eyes Neck full ROM General: normal visual inspection Resp normal respiratory effort Effort and Inspection: able to speak in complete sentences Auscultation: clear to auscultation bilaterally Cardio regular rate and regular rhythm Palpation: normal PMI Rate: regular rate Rhythm: regular rhythm GI Palpation: no hepatosplenomegaly Back/Spine Cervical Spine: cervical ROM normal Thoracic Spine / Upper Back: normal to inspection Lumbar Spine / Lower Back: normal to inspection Extremity General Extremity: normal exam except as noted, edema and other findings Other Details: Wound on the left walls Skin Wounds: wounds noted Wound Narrative: Left walls well scabbed not healed Neuro oriented x3 Psych Appearance: grossly normal Speech: normal speech Thought Content: normal thought content Judgement: judgement good Debridement Note Debridement Note Wound debrided: Traumatic left walls wound Laterality: Left Type of Debridement: Excisional debridement Anesthesia Used: 5% Lidocaine Gel Depth: Down to and including healthy tissue and in the subcutaneous layer Percentage of wound debrided: 100 Instrument Used: 5mm curette Tissue Removed: Devitalized tissue and slough Severity: Fat Layer Exposed Amount of bleeding with debridement: Mild Bleeding Controlled with: Compression and gauze Patient tolerated procedure: Patient tolerated procedure well Post-Debridement Measurements and Additional Note: Post-Debridement Measurements/Treatment SLIM - Nurse 1 - General Ulcer Assessment Start: 12/09/24 08:36 Freq: Status: Active Protocol: LEX Activity Type Activity Date Activity User E-sign Co-sign Detail Recorded Client Recorded Date Recorded By Document 12/09/24 08:36 DL [id number] 12/09/24 08:43 DL 12/09/24 08:36 WC - Today's Visit Information Type of service Follow-up Visit (Physician/GEOSCIENCE LABORATORY TECHNICIAN ) Arrival Mode Ambulatory Transfer Assistance None Patient Identification Verified (Name & Yes ) Patient Requires Transmission-Based No Precautions Vital Signs Temperature (97.8 F-99.1 F) 97.7 F L Temperature Source Temporal Pulse Rate (60-100) 98 Pulse Location Monitor Respiratory Rate (12-18) 16 Respiratory rate source Observation Blood Pressure (90/60-120/80) 162/79 H Blood Pressure Mean (mm Hg) 106 Source Monitor History Since Last Visit- (Skip if this is Patient's initial visit) Have you changed medications since your No last visit? Any new allergies or adverse reactions No Had a fall/change in ADL's that may No increase risk of falls Signs or symptoms of abuse and/or No neglect since last visit Have you been in the hospital since your No last visit? Has dressing in place as prescribed Yes Has compression in place as prescribed Yes Has offloadiing in place as prescribed N/A Experienced any changes in pain level or No management Pain Scale: 0-10 Numeric Is Patient Pain Free? Yes - Nurse 1 - General Ulcer Measurement Start: 12/09/24 08:36 Freq: Status: Active Protocol: Activity Type Activity Date Activity User E-sign Co-sign Detail Recorded Client Recorded Date Recorded By Document 12/09/24 08:36 DL [id number] 12/09/24 08:43 DL 12/09/24 08:36 Wound Center Nurse 1 #2 L Walls Cluster -Current Size (cm) - Length 4.3 -Current Size (cm) - Width 0.5 -Current Size (cm) - Depth 0.1 -Total Square Cm 2.15 -Photo Taken Yes -Exudate Amt Small -Exudate Type Serosanguineous -Wound Margin Distinct, Outline Attached -Granulation Amt None Present (0 %) -Necrosis Amt Medium (34-66%) -Necrotic Tissue Type Adherent Slough -Structure Exposed N/A -Texture (Adry-wound Skin Appearance) Scarring -Moisture (Adry-wound Skin Appearance) No Abnormality -Color (Adry-wound Skin Appearance) No Abnormality -Temperature (Adry-wound Skin No Abnormality Appearance) (Pt Warm) -Ulcer Cleansing Soap and Water -Foul Odor after Cleansing No -Anesthetic Used 5% Lidocaine Gel WC - Nurse 2 - General Ulcer CM Notes Start: 12/09/24 08:36 Freq: Status: Active Protocol: Activity Type Activity Date Activity User E-sign Co-sign Detail Recorded Client Recorded Date Recorded By Document 12/09/24 08:54 DS [id number] 12/09/24 08:57 DS 12/09/24 08:54 Wound Center Nurse 2 -Time 08:54 -Correct Patient Yes -Correct Side, Site, Position Yes -Correct Procedure Yes -Procedure Performed Yes -Type of Procedure Debridement -Clinical Debridement Subcutaneous -Tissue Removed Subcutaneous -Post Debridement (cm) - Length 4.5 -Post Debridement (cm) - Width 1.5 -Post Debridement (cm) - Depth 0.2 -Total Square (Post) (cm) 6.75 -Area of Debridement (cm) - Length 4.5 -Area of Debridement (cm) - Width 1.5 -Total Square (Area) (cm) 6.75 -Tunneling No -Undermining/Tunneling No -Circular Undermining No -Wound/Ulcer Outcome Not Healed -Ulcer Cleansing Rinsed/ Irrigated with Saline -Foul Odor after Cleansing No -Bioengineered Tissue No -Bleeding Controlled with Pressure -Treatment Response Procedure Tolerated Well -Debridement - Subq, 1st 20sq cm Yes Pain Scale: 0-10 Numeric Is Patient Pain Free? No LLE -Description Throbbing -Intensity 5 -Duration (hours) Chronic -Pain Behavior Facial Grimacing -Pain Aggravating Factors Debridement -Alleviating Factors/Interventions Will continue to monitor WC - Nurse 3 - General Ulcer D/C NN Start: 12/09/24 08:36 Freq: Status: Active Protocol: Activity Type Activity Date Activity User E-sign Co-sign Detail Recorded Client Recorded Date Recorded By Document 12/09/24 09:10 RB [id number] 12/09/24 09:10 RB 12/09/24 09:10 Wound Care Center Nurse 3 #2 L Walls Cluster -Ulcer Cleansing Rinsed/ Irrigated with Saline -Primary Dressing Applied Aquacel Extra -Other Dressing ABD -Primary Dressing Covered/Secured with Dry Gauze & Roll Gauze, Secured with Tape -Aquacel Extra 1 LLE -Tubular Bandage Double Layer -Size of Tubigrip Used Size E -Size E ($) 2 Treatment Response Procedure Tolerated Well Pain Scale: 0-10 Numeric Is Patient Pain Free? Yes WC - Visit Discharge Discharge Condition Stable Ambulatory Status Ambulatory Transportation Private Auto Medication Reconcilliation completed & No provided to patient/care provider Clinical Summary of Care Provided Yes Assessment/Plan Assessment/Plan (1) Nonhealing surgical wound: CODE(S): T81.89XA - Other complications of procedures, 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ssified, initial encounter QUALIFIERS: Encounter type: initial encounter Qualified Code(s): T81.89XA - Other complications of procedures, 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ssified, initial encounter PLAN: Wash left leg with Hibiclens or with antibacterial soap and water and apply Aquacel extra moistened then gauze ABD and Stacey to left leg with a doublelayer Tubigrip over top this is to be done daily. Follow-up in 1 week (2) Traumatic ulcer of left lower leg: CODE(S): L97.929 - Non-pressure chronic ulcer of unspecified part of left lower leg with unspecified severity QUALIFIERS: Non-pressure ulcer stage: with fat layer exposed Qualified Code(s): L97.922 - Non-pressure chronic ulcer of unspecified part of left lower leg with fat layer exposed (3) Infected wound: CODE(S): T14.8XXA - Other injury of unspecified body region, initial encounter; L08.9 - Local infection of the skin and subcutaneous tissue, unspecified PLAN: Cultures came back negative 12/09/24 1000 Cosigner Signature (if applicable): CC: ~ Signed [facility]07-30-2025 Progress note Author Magdalena Whaley [facility] Note Date/Time December 02, 2024 10:0 2am [facility] [address] [place] [address] Progress Note - Wound Care 12/02/24 0954 MR#: [id number] Acct: [id number] Name: CHEY JEFFERS Rep #:[id number] : 1960 63 From: Magdalena Whaley NP [employer] PCP: Dr. Edda Oconnor MD Status:RE G RCR Location: History of Present Illness Date of Service: 12/02/24 Chief Complaint: Left lower walls from a fall on some wooden steps outside her house seen in the emergency room on October 22 History of Wound: 63-year-old white female that had sutures put in the dehisced and now she has a well-approximated wound but it has a lot of blackened scabs and peeling skin. Progress of Wound: Still very superficial on the wound supersensitive when trying to debride. She has a lot of allergies to everything so we have to be careful. The measurementsare the same this week so we will probably switch her from the Xeroform over to Aquacel extra moistened no Adaptic and just a gauze dressing she seems to get macerated also. No sign of infection but she has a lot of slough that just keeps rebuilding and that wound I am having a hard time getting it to clean out. Subjective Subjective Patient is okay with the change up she will be taught how to do with the second nurse. Objective Data Objective Data No sign of infection no odor no smell no purulent matter except she has gets a lot of slough in there. Again very sensitive to debridement so it is hard to debride on her but I did get most of it out. Will try using Aquacel extra to see if that works better. Vital Signs: Vital Signs Temp Pulse Resp BP O2 Del Method 97.6 F L 105 H 16 122/66 H Room Air 12/02/24 08:28 12/02/24 08:28 12/02/24 08:28 12/02/24 08:28 12/02/24 08:28 Oxygen Delivery Method Room Air Lab / Micro Data Attestation: I reviewed the patient's lab results. Micro: Microbiology 11/11/24 09:20 Wound - Other Gram Stain - Final 11/11/24 09:20 Wound - Other Wound Culture - Final No growth aerobically. 11/11/24 09:20 Wound - Other Anaerobic Culture - Final No anaerobic bacteria isolated. Physical Exam Const oriented x3 General Appearance: cooperative Exam Limitations: no limitations HEENT normocephalic Face and Sinus: normal facial exam External Ear: external ears normal Eyes General Eye: normal appearance of both eyes Neck full ROM General: normal visual inspection Resp normal respiratory effort Effort and Inspection: able to speak in complete sentences Auscultation: clear to auscultation bilaterally Cardio regular rate and regular rhythm Palpation: normal PMI Rate: regular rate Rhythm: regular rhythm GI Palpation: no hepatosplenomegaly Back/Spine Cervical Spine: cervical ROM normal Thoracic Spine / Upper Back: normal to inspection Lumbar Spine / Lower Back: normal to inspection Extremity General Extremity: normal exam except as noted, edema and other findings Other Details: Wound on the left walls Skin Wounds: wounds noted Wound Narrative: Left walls well scabbed not healed Neuro oriented x3 Psych Appearance: grossly normal Speech: normal speech Thought Content: normal thought content Judgement: judgement good Debridement Note Debridement Note Wound debrided: Traumatic left walsl wound Type of Debridement: Excisional debridement Anesthesia Used: 5% Lidocaine Gel Depth: Down to and including healthy tissue and in the subcutaneous layer Percentage of wound debrided: 100 Instrument Used: 7mm curette Tissue Removed: Devitalized tissue and slough Severity: Fat Layer Exposed Amount of bleeding with debridement: Mild Bleeding Controlled with: Compression and gauze Patient tolerated procedure: Patient tolerated procedure well Post-Debridement Measurements and Additional Note: Post-Debridement Measurements/Treatment - Nurse 1 - General Ulcer Assessment Start: 11/11/24 08:20 Freq: Status: Active Protocol: LEX Activity Type Activity Date Activity User E-sign Co-sign Detail Recorded Client Recorded Date Recorded By Document 11/11/24 08:21 DL [id number] 11/11/24 08:37 DL Document 11/18/24 08:27 DL [id number] 11/18/24 08:36 DL Document 11/25/24 08:34 DL [id number] 11/25/24 08:41 DL Document 12/02/24 08:28 BM [id number] 12/02/24 08:36 BM 11/11/24 11/18/24 11/25/24 08:21 08:27 08:34 - Today's Visit Information Type of service Initial Visit Follow-up Visit Follow-up Visit (Physician/GEOSCIENCE LABORATORY TECHNICIAN (Physician/GEOSCIENCE LABORATORY TECHNICIAN ) ) Arrival Mode Ambulatory Ambulatory Ambulatory Transfer Assistance None None Patient Identification Verified (Name & Yes Yes ) Patient Requires Transmission-Based No No Precautions Vital Signs Temperature (97.8 F-99.1 F) 97.7 F L 97.2 F L 97.5 F L Temperature Source Temporal Temporal Temporal Pulse Rate (60-100) 106 H 108 H 96 Pulse Location Monitor Monitor Monitor Respiratory Rate (12-18) 18 16 16 Respiratory rate source Observation Observation Observation Oxygen Delivery Method Blood Pressure (90/60-120/80) 153/80 H 140/75 H 146/78 H Blood Pressure Mean (mm Hg) 104 96 100 Source Monitor Monitor Monitor Position Blood Pressure Location History Since Last Visit- (Skip if this is Patient's initial visit) Have you changed medications since your No No last visit? Any new allergies or adverse reactions No No Had a fall/change in ADL's that may No No increase risk of falls Signs or symptoms of abuse and/or No No neglect since last visit Have you been in the hospital since your No No last visit? Has dressing in place as prescribed Yes Yes Has compression in place as prescribed Yes Yes Has offloadiing in place as prescribed N/A Yes Experienced any changes in pain level or No No management Left Footwear Right Footwear Surgical Shoe with pressure relief insole Pain Scale: 0-10 Numeric Is Patient Pain Free? Yes Yes Yes Lower Extremity Assessment/ Foot Assessment/ Toe Nail Assessment Left -Posterior Tibial Palpable No -Dorsalis Pedis Palpable No -Extremity Color Normal -Hair Growth on Legs No -Hair Growth on Toes No -Temperature of Extremity Warm -Capillary Refill Less than 3 Seconds -Dependent Rubor No -Blanched when Elevated No -Lipodermatosclerosis No -Other Deformity No -Prior Foot Ulcer No -Charcot Joint No -Prior Amputation No -Thick Yes -Discolored Yes -Deformed No -Improper Length & Hygeine No Right -Posterior Tibial Palpable Yes -Dorsalis Pedis Palpable Yes -Extremity Color Normal -Hair Growth on Legs Yes -Hair Growth on Toes Yes -Temperature of Extremity Warm -Capillary Refill Less than 3 Seconds -Dependent Rubor No -Blanched when Elevated No -Lipodermatosclerosis No -Other Deformity No -Prior Foot Ulcer No -Charcot Joint No -Prior Amputation No -Thick Yes -Discolored Yes -Deformed No -Improper Length & Hygeine No Neuropathy Assessment Feet - Top Side and Bottom <Entered> (a) Communication Assessment Preferred language [place] Able to Read Yes Able to Write Yes Communication Tools None Right Hearing Abillity Normal Left Hearing Abillity Normal Visual Assistive Devices None Teaching Assessment Preferences Verbal,Written Barriers to Learning None Readiness To Learn Good Willingness to Engage in Self Management Med Activies Readiness to Engage in Self Management Med Activities Anxiety Level Calm Cooperation Cooperative Perception Coherent Interest in Health Problem Asks Questions Education Importance Acknowledges Need Does Patient Smoke tobacco or other No substances Smoking Status Never smoker Is Patient Diabetic No Functional Assessment Recent Decline in Ability to Perform Denies Any Declines Teaching: Wound Center Dressing Your Wound -Person Taught Patient *Wound/Skin Impairment -Person Taught Patient 12/02/24 08:28 WC - Today's Visit Information Type of service Follow-up Visit (Physician/GEOSCIENCE LABORATORY TECHNICIAN ) Arrival Mode Ambulatory Transfer Assistance None Patient Identification Verified (Name & Yes ) Patient Requires Transmission-Based No Precautions Vital Signs Temperature (97.8 F-99.1 F) 97.6 F L Temperature Source Temporal Pulse Rate (60-100) 105 H Pulse Location Monitor Respiratory Rate (12-18) 16 Respiratory rate source Observation Oxygen Delivery Method Room Air Blood Pressure (90/60-120/80) 122/66 H Blood Pressure Mean (mm Hg) 84 Source Monitor Position Sitting Blood Pressure Location Left Arm History Since Last Visit- (Skip if this is Patient's initial visit) Have you changed medications since your No last visit? Any new allergies or adverse reactions No Had a fall/change in ADL's that may increase risk of falls Signs or symptoms of abuse and/or No neglect since last visit Have you been in the hospital since your No last visit? Has dressing in place as prescribed Yes Has compression in place as prescribed Yes Has offloadiing in place as prescribed N/A Experienced any changes in pain level or No management Left Footwear Regular Shoe Right Footwear Regular Shoe Pain Scale: 0-10 Numeric Is Patient Pain Free? Yes Lower Extremity Assessment/ Foot Assessment/ Toe Nail Assessment Left -Posterior Tibial Palpable -Dorsalis Pedis Palpable -Extremity Color -Hair Growth on Legs -Hair Growth on Toes -Temperature of Extremity -Capillary Refill -Dependent Rubor -Blanched when Elevated -Lipodermatosclerosis -Other Deformity -Prior Foot Ulcer -Charcot Joint -Prior Amputation -Thick -Discolored -Deformed -Improper Length & Hygeine Right -Posterior Tibial Palpable -Dorsalis Pedis Palpable -Extremity Color -Hair Growth on Legs -Hair Growth on Toes -Temperature of Extremity -Capillary Refill -Dependent Rubor -Blanched when Elevated -Lipodermatosclerosis -Other Deformity -Prior Foot Ulcer -Charcot Joint -Prior Amputation -Thick -Discolored -Deformed -Improper Length & Hygeine Neuropathy Assessment Feet - Top Side and Bottom Communication Assessment Preferred language Able to Read Able to Write Communication Tools Right Hearing Abillity Left Hearing Abillity Visual Assistive Devices Teaching Assessment Preferences Barriers to Learning Readiness To Learn Willingness to Engage in Self Management Activies Readiness to Engage in Self Management Activities Anxiety Level Cooperation Perception Interest in Health Problem Education Importance Does Patient Smoke tobacco or other substances Smoking Status Is Patient Diabetic Functional Assessment Recent Decline in Ability to Perform Teaching: Wound Center Dressing Your Wound -Person Taught *Wound/Skin Impairment -Person Taught (a) 1 - + WC - Nurse 1 - General Ulcer Measurement Start: 11/11/24 08:20 Freq: Status: Active Protocol: Activity Type Activity Date Activity User E-sign Co-sign Detail Recorded Client Recorded Date Recorded By Document 11/11/24 08:21 DL [id number] 11/11/24 08:37 DL Document 11/18/24 08:27 DL [id number] 11/18/24 08:36 DL Document 11/25/24 08:34 DL [id number] 11/25/24 08:41 DL Document 12/02/24 08:28 BMF [id number] 12/02/24 08:36 BMF 11/11/24 11/18/24 11/25/24 08:21 08:27 08:34 Wound Center Nurse 1 #2 L Walls Cluster -Combined with other wound -Current Size (cm) - Length 0.1 6.8 7.8 -Current Size (cm) - Width 0.1 1 2.1 -Current Size (cm) - Depth 0.1 0.1 0.1 -Total Square Cm 0.01 6.8 16.38 -Date of Last Picture (Recall this field) -Photo Taken Yes Yes Yes -Epithelialization -Tunneling -Undermining/Tunneling -Circular Undermining -Exudate Amt Small Small Medium -Exudate Type Serosanguineous Serosanguineous -Wound Margin Distinct, Distinct, Distinct, Outline Outline Outline Attached Attached Attached -Granulation Amt None Present (0 Medium (34-66%) Medium (34-66%) %) -Granulation Quality [place] -Slough/Fibrin -Necrosis Amt Small (1-33%) Medium (34-66%) Medium (34-66%) -Necrotic Tissue Type Adherent Slough Adherent Slough Adherent Slough -Structure Exposed N/A N/A N/A -Texture (Adry-wound Skin Appearance) Localized Edema Localized Edema Scarring ,Scarring ,Scarring -Moisture (Adry-wound Skin Appearance) No Abnormality No Abnormality No Abnormality -Color (Adry-wound Skin Appearance) No Abnormality No Abnormality No Abnormality -Temperature (Adry-wound Skin No Abnormality No Abnormality No Abnormality Appearance) (Pt Warm) (Pt Warm) (Pt Warm) -Tenderness on Palpation (Adry-wound No Skin Appearance) -Ulcer Cleansing Soap and Water Soap and Water Soap and Water -Foul Odor after Cleansing No No No -Anesthetic Used 4% Lidocaine 5% Lidocaine 5% Lidocaine Solution Gel Gel Right Calf (cm) 30 29.5 Right Ankle (cm) 18.5 19.8 Left Calf (cm) 33 30 Left Ankle (cm) 21 19.3 12/02/24 08:28 Wound Center Nurse 1 #2 L Walls Cluster -Combined with other wound No -Current Size (cm) - Length 8.1 -Current Size (cm) - Width 2.3 -Current Size (cm) - Depth 0.1 -Total Square Cm 18.63 -Date of Last Picture (Recall this 12/02/24 field) -Photo Taken Yes -Epithelialization Medium 34-66% -Tunneling No -Undermining/Tunneling No -Circular Undermining No -Exudate Amt Medium -Exudate Type Serosanguineous -Wound Margin Flat & Intact -Granulation Amt Medium (34-66%) -Granulation Quality Red -Slough/Fibrin Yes -Necrosis Amt Medium (34-66%) -Necrotic Tissue Type Adherent Slough -Structure Exposed -Texture (Adry-wound Skin Appearance) Assessed, Scarring -Moisture (Adry-wound Skin Appearance) Assessed -Color (Adry-wound Skin Appearance) Assessed -Temperature (Adry-wound Skin No Abnormality Appearance) (Pt Warm) -Tenderness on Palpation (Adry-wound No Skin Appearance) -Ulcer Cleansing Rinsed/ Irrigated with Saline -Foul Odor after Cleansing No -Anesthetic Used 5% Lidocaine Gel Right Calf (cm) Right Ankle (cm) Left Calf (cm) 29.8 Left Ankle (cm) 18.9 WC - Nurse 2 - General Ulcer CM Notes Start: 11/11/24 08:20 Freq: Status: Active Protocol: Activity Type Activity Date Activity User E-sign Co-sign Detail Recorded Client Recorded Date Recorded By Document 11/11/24 09:10 BM [id number] 11/11/24 09:27 BMF Document 11/18/24 08:54 [facility] [id number] 11/18/24 09:04 [facility] Document 11/25/24 08:58 [facility] [id number] 11/25/24 09:04 [facility] Document 12/02/24 08:36 [facility] [id number] 12/02/24 08:44 [facility] 11/11/24 11/18/24 11/25/24 09:10 08:54 08:58 Wound Center Nurse 2 #2 L Mariano Cluster -Time 09:10 08:55 08:59 -Correct Patient Yes Yes Yes -Correct Side, Site, Position Yes Yes Yes -Correct Procedure Yes Yes Yes -Procedure Performed Yes Yes Yes -Type of Procedure Debridement Debridement Debridement -Clinical Debridement Subcutaneous Subcutaneous Subcutaneous -Tissue Removed Subcutaneous Subcutaneous Subcutaneous -Post Debridement (cm) - Length 9.4 9 8.4 -Post Debridement (cm) - Width 3.5 3 2.3 -Post Debridement (cm) - Depth 0.2 0.1 0.2 -Total Square (Post) (cm) 32.90 27 19.32 -Area of Debridement (cm) - Length 9.4 9 8.4 -Area of Debridement (cm) - Width 3.5 3 2.3 -Total Square (Area) (cm) 32.90 27 19.32 -Tunneling No No No -Undermining/Tunneling No No No -Circular Undermining No No No -Wound/Ulcer Outcome Not Healed Not Healed Not Healed -Ulcer Cleansing Rinsed/ Rinsed/ Rinsed/ Irrigated with Irrigated with Irrigated with Saline Saline Saline -Foul Odor after Cleansing No No No -Bioengineered Tissue No No No -Bleeding Controlled with Pressure Pressure Pressure -Treatment Response Procedure Procedure Procedure Tolerated Well Tolerated Well Tolerated Well -Debridement - Subq, 1st 20sq cm Yes Yes Yes -Debridement, SubQ, ea addt'l 20sq cm 1 or part thereof Pain Scale: 0-10 Numeric Is Patient Pain Free? Yes Yes Yes 12/02/24 08:36 Wound Center Nurse 2 #2 L Mariano Cluster -Time 08:36 -Correct Patient Yes -Correct Side, Site, Position Yes -Correct Procedure Yes -Procedure Performed Yes -Type of Procedure Debridement -Clinical Debridement Subcutaneous -Tissue Removed Subcutaneous -Post Debridement (cm) - Length 8.5 -Post Debridement (cm) - Width 2.3 -Post Debridement (cm) - Depth 0.2 -Total Square (Post) (cm) 19.55 -Area of Debridement (cm) - Length 8.5 -Area of Debridement (cm) - Width 2.3 -Total Square (Area) (cm) 19.55 -Tunneling No -Undermining/Tunneling No -Circular Undermining No -Wound/Ulcer Outcome Not Healed -Ulcer Cleansing Rinsed/ Irrigated with Saline -Foul Odor after Cleansing No -Bioengineered Tissue No -Bleeding Controlled with Pressure -Treatment Response Procedure Tolerated Well -Debridement - Subq, 1st 20sq cm Yes -Debridement, SubQ, ea addt'l 20sq cm or part thereof Pain Scale: 0-10 Numeric Is Patient Pain Free? Yes WC - Nurse 3 - General Ulcer D/C NN Start: 11/11/24 08:20 Freq: Status: Active Protocol: Activity Type Activity Date Activity User E-sign Co-sign Detail Recorded Client Recorded Date Recorded By Document 11/11/24 09:41 DL [id number] 11/11/24 09:42 DL Document 11/18/24 09:14 BMF [id number] 11/18/24 09:15 BMF Document 11/25/24 09:14 BMF [id number] 11/25/24 09:15 BMF Document 12/02/24 08:44 BMF [id number] 12/02/24 08:44 BMF 11/11/24 11/18/24 11/25/24 09:41 09:14 09:14 Wound Care Center Nurse 3 #2 L Walls Cluster -Ulcer Cleansing Rinsed/ Rinsed/ Rinsed/ Irrigated with Irrigated with Irrigated with Saline Saline Saline -Foul Odor after Cleansing No No No -Primary Dressing Applied NonAdherent NonAdherent NonAdherent Contact Layer Contact Layer Contact Layer -Other Dressing Xerofrom xeroform, xeroform, adaptic adaptic, abd -Primary Dressing Covered/Secured with Dry Gauze & Dry Gauze & Dry Gauze & Roll Gauze, Roll Gauze, Roll Gauze, Secured with Secured with Secured with Tape Tape Tape -Other Covering ABD abd drsg per msl precision mechanical instrument maker -Aquacel Extra LLE -Tubular Bandage Double Layer Double Layer Double Layer -Size of Tubigrip Used Size E Size E Size E -Size E ($) 2 2 2 Treatment Response Procedure Procedure Procedure Tolerated Well Tolerated Well Tolerated Well Pain Scale: 0-10 Numeric Is Patient Pain Free? Yes Yes Yes WC - Visit Discharge Discharge Condition Stable Stable Stable Ambulatory Status Ambulatory Ambulatory Ambulatory Transportation Private Auto Private Auto Private Auto 12/02/24 08:44 Wound Care Center Nurse 3 #2 L Walls Cluster -Ulcer Cleansing Rinsed/ Irrigated with Saline -Foul Odor after Cleansing No -Primary Dressing Applied Aquacel Extra -Other Dressing -Primary Dressing Covered/Secured with Dry Gauze & Roll Gauze, Secured with Tape -Other Covering -Aquacel Extra 2 LLE -Tubular Bandage Double Layer -Size of Tubigrip Used Size E -Size E ($) 2 Treatment Response Pain Scale: 0-10 Numeric Is Patient Pain Free? Yes WC - Visit Discharge Discharge Condition Stable Ambulatory Status Ambulatory Transportation Private Auto Assessment/Plan Assessment/Plan (1) Nonhealing surgical wound: CODE(S): T81.89XA - Other complications of procedures, 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ssified, initial encounter QUALIFIERS: Encounter type: initial encounter Qualified Code(s): T81.89XA - Other complications of procedures, 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ssified, initial encounter PLAN: Wash left leg with Hibiclens or with antibacterial soap and water and apply Aquacel extra moistened then gauze ABD and Stacey to left leg with a doublelayer Tubigrip over top this is to be done daily. 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 lower leg with fat layer exposed 12/02/24 1002 <Electronically signed by Magdalena Whaley NP [employer]> Cosigner Signature (if applicable): CC: ~ Signed [facility] Work Phone: 1(953) 606-223307-30-2025 Evaluation note* Diagnosis Onset Date Resolution Status Admit Date Infected wound acute December 02, 2024 8:30am Nonhealing surgical wound acute December 02, 2024 8:30am Traumatic ulcer of left lower leg ac franko December 02, 2024 8:30am Ulcer of left lower extremit y with necrosis of muscle acute November h2024 8:30am [facility] Work Phone: 1(359) 976-696907-30-2025 Evaluation note* Diagnosis Onset Date Resolution Status Admit Date Infected wound acute December 02, 2024 8:30am Nonhealing surgical wound acute December 02, 2024 8:30am Traumatic ulcer of left lowe r leg acute December 02, 2024 8:30am Ulcer of left lower extremit y with necrosis of muscle acute November 8:30am Infected wound acute December 8:30am Nonhealing surgical wound acute December 23, 2024 8:30am Traumatic ulcer of left lowe r leg acute December 23 8:30am [facility] Work Phone: 1(119) 246-749407-30-[address] [facility] [address] [place] [address] Progress Note - Wound Care 12/02/24 0954 MR#: [id number] Acct: [id number] Name: CHEY JEFFERS Rep #:[id number] : 1960 63 From: Magdalena Whaley NP [employer] PCP: Dr. Edda Oconnor MD Status:[facility] Location: History of Present Illness Date of Service: 12/02/24 Chief Complaint: Left lower walls from a fall on some wooden steps outside her house seen in the emergency room on October 22 History of Wound: 63-year-old white female that had sutures put in the dehisced and now she has a well-approximated wound but it has a lot of blackened scabs and peeling skin. Progress of Wound: Still very superficial on the wound supersensitive when trying to debride. She has a lot of allergies to everything so we have to be careful. The measurementsare the same this week so we will probably switch her from the Xeroform over to Aquacel extra moistened no Adaptic and just a gauze dressing s he seems to get macerated also. No sign of infection but she has a lot of slough that just keeps rebuilding and that wound I am having a hard time getting it to clean out. Subjective Subjective Patient is okay with the change up she will be taught how to do with the second nurse. Objective Data Objective Data No sign of infection no odor no smell no purulent matter except she has gets a lot of slough in there. Again very sensitive to debridement so it is hard to debride on her but I did get most of it out. Will try using Aquacel extra to see if that works better. Vital Signs: Vital Signs Temp Pulse Resp BP O2 Del Method 97.6 F L 105 H 16 122/66 H Room Air 12/02/24 08:28 12/02/24 08:28 12/02/24 08:28 12/02/24 08:28 12/02/24 08:28 Oxygen Delivery Method Room Air Lab / Micro Data Attestation: I reviewed the patient's lab results. Micro: Microbiology 11/11/24 09:20 Wound - Other Gram Stain - Final 11/11/24 09:20 Wound - Other Wound Culture - Final No growth aerobically. 11/11/24 09:20 Wound - Other Anaerobic Culture - Final No anaerobic bacteria isolated. Physical Exam Const oriented x3 General Appearance: cooperative Exam Limitations: no limitations HEENT normocephalic Face and Sinus: normal facial exam External Ear: external ears normal Eyes General Eye: normal appearance of both eyes Neck full ROM General: normal visual inspection Resp normal respiratory effort Effort and Inspection: able to speak in complete sentences Auscultation: clear to auscultation bilaterally Cardio regular rate and regular rhythm Palpation: normal PMI Rate: regular rate Rhythm: regular rhythm GI Palpation: no hepatosplenomegaly Back/Spine Cervical Spine: cervical ROM normal Thoracic Spine / Upper Back: normal to inspection Lumbar Spine / Lower Back: normal to inspection Extremity General Extremity: normal exam except as noted, edema and other findings Other Details: Wound on the left walls Skin Wounds: wounds noted Wound Narrative: Left walls well scabbed not healed Neuro oriented x3 Psych Appearance: grossly normal Speech: normal speech Thought Content: normal thought content Judgement: judgement good Debridement Note Debridement Note Wound debrided: Traumatic left walls wound Type of Debridement: Excisional debridement Anesthesia Used: 5% Lidocaine Gel Depth: Down to and including healthy tissue and in the subcutaneous layer Percentage of wound debrided: 100 Instrument Used: 7mm curette Tissue Removed: Devitalized tissue and slough Severity: Fat Layer Exposed Amount of bleeding with debridement: Mild Bleeding Controlled with: Compression and gauze Patient tolerated procedure: Patient tolerated procedure well Post-Debridement Measurements and Additional Note: Post-Debridement Measurements/Treatment SLIM - Nurse 1 - General Ulcer Assessment Start: 11/11/24 08:20 Freq: Status: Active Protocol: LEX Activity Type Activity Date Activity User E-sign Co-sign Detail Recorded Client Recorded Date Recorded By Document 11/11/24 08:21 DL [id number] 11/11/24 08:37 DL Document 11/18/24 08:27 DL [id number] 11/18/24 08:36 DL Document 11/25/24 08:34 DL [id number] 11/25/24 08:41 DL Document 12/02/24 08:28 BMF [id number] 12/02/24 08:36 BMF 11/11/24 11/18/24 11/25/24 08:21 08:27 08:34 - Today's Visit Information Type of service Initial Visit Follow-up Visit Follow-up Visit (Physician/GEOSCIENCE LABORATORY TECHNICIAN (Physician/GEOSCIENCE LABORATORY TECHNICIAN ) ) Arrival Mode Ambulatory Ambulatory Ambulatory Transfer Assistance None None Patient Identification Verified (Name & Yes Yes ) Patient Requires Transmission-Based No No Precautions Vital Signs Temperature (97.8 F-99.1 F) 97.7 F L 97.2 F L 97.5 F L Temperature Source Temporal Temporal Temporal Pulse Rate (60-100) 106 H 108 H 96 Pulse Location Monitor Monitor Monitor Respiratory Rate (12-18) 18 16 16 Respiratory rate source Observation Observation Observation Oxygen Delivery Method Blood Pressure (90/60-120/80) 153/80 H 140/75 H 146/78 H Blood Pressure Mean (mm Hg) 104 96 100 Source Monitor Monitor Monitor Position Blood Pressure Location History Since Last Visit- (Skip if this is Patient's initial visit) Have you changed medications since your No No last visit? Any new allergies or adverse reactions No No Had a fall/change in ADL's that may No No increase risk of falls Signs or symptoms of abuse and/or No No neglect since last visit Have you been in the hospital since your No No last visit? Has dressing in place as prescribed Yes Yes Has compression in place as prescribed Yes Yes Has offloadiing in place as prescribed N/A Yes Experienced any changes in pain level or No No management Left Footwear Right Footwear Surgical Shoe with pressure relief insole Pain Scale: 0-10 Numeric Is Patient Pain Free? Yes Yes Yes Lower Extremity Assessment/ Foot Assessment/ Toe Nail Assessment Left -Posterior Tibial Palpable No -Dorsalis Pedis Palpable No -Extremity Color Normal -Hair Growth on Legs No -Hair Growth on Toes No -Temperature of Extremity Warm -Capillary Refill Less than 3 Seconds -Dependent Rubor No -Blanched when Elevated No -Lipodermatosclerosis No -Other Deformity No -Prior Foot Ulcer No -Charcot Joint No -Prior Amputation No -Thick Yes -Discolored Yes -Deformed No -Improper Length & Hygeine No Right -Posterior Tibial Palpable Yes -Dorsalis Pedis Palpable Yes -Extremity Color Normal -Hair Growth on Legs Yes -Hair Growth on Toes Yes -Temperature of Extremity Warm -Capillary Refill Less than 3 Seconds -Dependent Rubor No -Blanched when Elevated No -Lipodermatosclerosis No -Other Deformity No -Prior Foot Ulcer No -Charcot Joint No -Prior Amputation No -Thick Yes -Discolored Yes -Deformed No -Improper Length & Hygeine No Neuropathy Assessment Feet - Top Side and Bottom (a) Communication Assessment Preferred language [place] Able to Read Yes Able to Write Yes Communication Tools None Right Hearing Abillity Normal Left Hearing Abillity Normal Visual Assistive Devices None Teaching Assessment Preferences Verbal,Written Barriers to Learning None Readiness To Learn Good Willingness to Engage in Self Management Med Activies Readiness to Engage in Self Management Med Activities Anxiety Level Calm Cooperation Cooperative Perception Coherent Interest in Health Problem Asks Questions Education Importance Acknowledges Need Does Patient Smoke tobacco or other No substances Smoking Status Never smoker Is Patient Diabetic No Functional Assessment Recent Decline in Ability to Perform Denies Any Declines Teaching: Wound Center Dressing Your Wound -Person Taught Patient *Wound/Skin Impairment -Person Taught Patient 12/02/24 08:28 WC - Today's Visit Information Type of service Follow-up Visit (Physician/GEOSCIENCE LABORATORY TECHNICIAN ) Arrival Mode Ambulatory Transfer Assistance None Patient Identification Verified (Name & Yes ) Patient Requires Transmission-Based No Precautions Vital Signs Temperature (97.8 F-99.1 F) 97.6 F L Temperature Source Temporal Pulse Rate (60-100) 105 H Pulse Location Monitor Respiratory Rate (12-18) 16 Respiratory rate source Observation Oxygen Delivery Method Room Air Blood Pressure (90/60-120/80) 122/66 H Blood Pressure Mean (mm Hg) 84 Source Monitor Position Sitting Blood Pressure Location Left Arm History Since Last Visit- (Skip if this is Patient's initial visit) Have you changed medications since your No last visit? Any new allergies or adverse reactions No Had a fall/change in ADL's that may increase risk of falls Signs or symptoms of abuse and/or No neglect since last visit Have you been in the hospital since your No last visit? Has dressing in place as prescribed Yes Has compression in place as prescribed Yes Has offloadiing in place as prescribed N/A Experienced any changes in pain level or No management Left Footwear Regular Shoe Right Footwear Regular Shoe Pain Scale: 0-10 Numeric Is Patient Pain Free? Yes Lower Extremity Assessment/ Foot Assessment/ Toe Nail Assessment Left -Posterior Tibial Palpable -Dorsalis Pedis Palpable -Extremity Color -Hair Growth on Legs -Hair Growth on Toes -Temperature of Extremity -Capillary Refill -Dependent Rubor -Blanched when Elevated -Lipodermatosclerosis -Other Deformity -Prior Foot Ulcer -Charcot Joint -Prior Amputation -Thick -Discolored -Deformed -Improper Length & Hygeine Right -Posterior Tibial Palpable -Dorsalis Pedis Palpable -Extremity Color -Hair Growth on Legs -Hair Growth on Toes -Temperature of Extremity -Capillary Refill -Dependent Rubor -Blanched when Elevated -Lipodermatosclerosis -Other Deformity -Prior Foot Ulcer -Charcot Joint -Prior Amputation -Thick -Discolored -Deformed -Improper Length & Hygeine Neuropathy Assessment Feet - Top Side and Bottom Communication Assessment Preferred language Able to Read Able to Write Communication Tools Right Hearing Abillity Left Hearing Abillity Visual Assistive Devices Teaching Assessment Preferences Barriers to Learning Readiness To Learn Willingness to Engage in Self Management Activies Readiness to Engage in Self Management Activities Anxiety Level Cooperation Perception Interest in Health Problem Education Importance Does Patient Smoke tobacco or other substances Smoking Status Is Patient Diabetic Functional Assessment Recent Decline in Ability to Perform Teaching: Wound Center Dressing Your Wound -Person Taught *Wound/Skin Impairment -Person Taught (a) 1 - + WC - Nurse 1 - General Ulcer Measurement Start: 11/11/24 08:20 Freq: Status: Active Protocol: Activity Type Activity Date Activity User E-sign Co-sign Detail Recorded Client Recorded Date Recorded By Document 11/11/24 08:21 DL [id number] 11/11/24 08:37 DL Document 11/18/24 08:27 DL [id number] 11/18/24 08:36 DL Document 11/25/24 08:34 DL [id number] 11/25/24 08:41 DL Document 12/02/24 08:28 BM [id number] 12/02/24 08:36 [facility] 11/11/24 11/18/24 11/25/24 08:21 08:27 08:34 Wound Center Nurse 1 #2 L Walls Cluster -Combined with other wound -Current Size (cm) - Length 0.1 6.8 7.8 -Current Size (cm) - Width 0.1 1 2.1 -Current Size (cm) - Depth 0.1 0.1 0.1 -Total Square Cm 0.01 6.8 16.38 -Date of Last Picture (Recall this field) -Photo Taken Yes Yes Yes -Epithelialization -Tunneling -Undermining/Tunneling -Circular Undermining -Exudate Amt Small Small Medium -Exudate Type Serosanguineous Serosanguineous -Wound Margin Distinct, Distinct, Distinct, Outline Outline Outline Attached Attached Attached -Granulation Amt None Present (0 Medium (34-66%) Medium (34-66%) %) -Granulation Quality [place] Red -Slough/Fibrin -Necrosis Amt Small (1-33%) Medium (34-66%) Medium (34-66%) -Necrotic Tissue Type Adherent Slough Adherent Slough Adherent Slough -Structure Exposed N/A N/A N/A -Texture (Adry-wound Skin Appearance) Localized Edema Localized Edema Scarring ,Scarring ,Scarring -Moisture (Adry-wound Skin Appearance) No Abnormality No Abnormality No Abnormality -Color (Adry-wound Skin Appearance) No Abnormality No Abnormality No Abnormality -Temperature (Adry-wound Skin No Abnormality No Abnormality No Abnormality Appearance) (Pt Warm) (Pt Warm) (Pt Warm) -Tenderness on Palpation (Adry-wound No Skin Appearance) -Ulcer Cleansing Soap and Water Soap and Water Soap and Water -Foul Odor after Cleansing No No No -Anesthetic Used 4% Lidocaine 5% Lidocaine 5% Lidocaine Solution Gel Gel Right Calf (cm) 30 29.5 Right Ankle (cm) 18.5 19.8 Left Calf (cm) 33 30 Left Ankle (cm) 21 19.3 12/02/24 08:28 Wound Center Nurse 1 #2 L Walls Cluster -Combined with other wound No -Current Size (cm) - Length 8.1 -Current Size (cm) - Width 2.3 -Current Size (cm) - Depth 0.1 -Total Square Cm 18.63 -Date of Last Picture (Recall this 12/02/24 field) -Photo Taken Yes -Epithelialization Medium 34-66% -Tunneling No -Undermining/Tunneling No -Circular Undermining No -Exudate Amt Medium -Exudate Type Serosanguineous -Wound Margin Flat & Intact -Granulation Amt Medium (34-66%) -Granulation Quality Red -Slough/Fibrin Yes -Necrosis Amt Medium (34-66%) -Necrotic Tissue Type Adherent Slough -Structure Exposed -Texture (Adry-wound Skin Appearance) Assessed, Scarring -Moisture (Adry-wound Skin Appearance) Assessed -Color (Adry-wound Skin Appearance) Assessed -Temperature (Adry-wound Skin No Abnormality Appearance) (Pt Warm) -Tenderness on Palpation (Adry-wound No Skin Appearance) -Ulcer Cleansing Rinsed/ Irrigated with Saline -Foul Odor after Cleansing No -Anesthetic Used 5% Lidocaine Gel Right Calf (cm) Right Ankle (cm) Left Calf (cm) 29.8 Left Ankle (cm) 18.9 WC - Nurse 2 - General Ulcer CM Notes Start: 11/11/24 08:20 Freq: Status: Active Protocol: Activity Type Activity Date Activity User E-sign Co-sign Detail Recorded Client Recorded Date Recorded By Document 11/11/24 09:10 [facility] [id number] 11/11/24 09:27 [facility] Document 11/18/24 08:54 [facility] [id number] 11/18/24 09:04 BM Document 11/25/24 08:58 BM [id number] 11/25/24 09:04 BM Document 12/02/24 08:36 BMF [id number] 12/02/24 08:44 BMF 11/11/24 11/18/24 11/25/24 09:10 08:54 08:58 Wound Center Nurse 2 #2 L Walls Cluster -Time 09:10 08:55 08:59 -Correct Patient Yes Yes Yes -Correct Side, Site, Position Yes Yes Yes -Correct Procedure Yes Yes Yes -Procedure Performed Yes Yes Yes -Type of Procedure Debridement Debridement Debridement -Clinical Debridement Subcutaneous Subcutaneous Subcutaneous -Tissue Removed Subcutaneous Subcutaneous Subcutaneous -Post Debridement (cm) - Length 9.4 9 8.4 -Post Debridement (cm) - Width 3.5 3 2.3 -Post Debridement (cm) - Depth 0.2 0.1 0.2 -Total Square (Post) (cm) 32.90 27 19.32 -Area of Debridement (cm) - Length 9.4 9 8.4 -Area of Debridement (cm) - Width 3.5 3 2.3 -Total Square (Area) (cm) 32.90 27 19.32 -Tunneling No No No -Undermining/Tunneling No No No -Circular Undermining No No No -Wound/Ulcer Outcome Not Healed Not Healed Not Healed -Ulcer Cleansing Rinsed/ Rinsed/ Rinsed/ Irrigated with Irrigated with Irrigated with Saline Saline Saline -Foul Odor after Cleansing No No No -Bioengineered Tissue No No No -Bleeding Controlled with Pressure Pressure Pressure -Treatment Response Procedure Procedure Procedure Tolerated Well Tolerated Well Tolerated Well -Debridement - Subq, 1st 20sq cm Yes Yes Yes -Debridement, SubQ, ea addt'l 20sq cm 1 or part thereof Pain Scale: 0-10 Numeric Is Patient Pain Free? Yes Yes Yes 12/02/24 08:36 Wound Center Nurse 2 #2 L Walls Cluster -Time 08:36 -Correct Patient Yes -Correct Side, Site, Position Yes -Correct Procedure Yes -Procedure Performed Yes -Type of Procedure Debridement -Clinical Debridement Subcutaneous -Tissue Removed Subcutaneous -Post Debridement (cm) - Length 8.5 -Post Debridement (cm) - Width 2.3 -Post Debridement (cm) - Depth 0.2 -Total Square (Post) (cm) 19.55 -Area of Debridement (cm) - Length 8.5 -Area of Debridement (cm) - Width 2.3 -Total Square (Area) (cm) 19.55 -Tunneling No -Undermining/Tunneling No -Circular Undermining No -Wound/Ulcer Outcome Not Healed -Ulcer Cleansing Rinsed/ Irrigated with Saline -Foul Odor after Cleansing No -Bioengineered Tissue No -Bleeding Controlled with Pressure -Treatment Response Procedure Tolerated Well -Debridement - Subq, 1st 20sq cm Yes -Debridement, SubQ, ea addt'l 20sq cm or part thereof Pain Scale: 0-10 Numeric Is Patient Pain Free? Yes WC - Nurse 3 - General Ulcer D/C NN Start: 11/11/24 08:20 Freq: Status: Active Protocol: Activity Type Activity Date Activity User E-sign Co-sign Detail Recorded Client Recorded Date Recorded By Document 11/11/24 09:41 DL [id number] 11/11/24 09:42 DL Document 11/18/24 09:14 BMF [id number] 11/18/24 09:15 BMF Document 11/25/24 09:14 BMF [id number] 11/25/24 09:15 BMF Document 12/02/24 08:44 BM [id number] 12/02/24 08:44 BM 11/11/24 11/18/24 11/25/24 09:41 09:14 09:14 Wound Care Center Nurse 3 #2 L Walls Cluster -Ulcer Cleansing Rinsed/ Rinsed/ Rinsed/ Irrigated with Irrigated with Irrigated with Saline Saline Saline -Foul Odor after Cleansing No No No -Primary Dressing Applied NonAdherent NonAdherent NonAdherent Contact Layer Contact Layer Contact Layer -Other Dressing Xerofrom xeroform, xeroform, adaptic adaptic, abd -Primary Dressing Covered/Secured with Dry Gauze & Dry Gauze & Dry Gauze & Roll Gauze, Roll Gauze, Roll Gauze, Secured with Secured with Secured with Tape Tape Tape -Other Covering ABD abd drsg per msl precision mechanical instrument maker -Aquacel Extra LLE -Tubular Bandage Double Layer Double Layer Double Layer -Size of Tubigrip Used Size E Size E Size E -Size E ($) 2 2 2 Treatment Response Procedure Procedure Procedure Tolerated Well Tolerated Well Tolerated Well Pain Scale: 0-10 Numeric Is Patient Pain Free? Yes Yes Yes WC - Visit Discharge Discharge Condition Stable Stable Stable Ambulatory Status Ambulatory Ambulatory Ambulatory Transportation Private Auto Private Auto Private Auto 12/02/24 08:44 Wound Care Center Nurse 3 #2 L Walls Cluster -Ulcer Cleansing Rinsed/ Irrigated with Saline -Foul Odor after Cleansing No -Primary Dressing Applied Aquacel Extra -Other Dressing -Primary Dressing Covered/Secured with Dry Gauze & Roll Gauze, Secured with Tape -Other Covering -Aquacel Extra 2 LLE -Tubular Bandage Double Layer -Size of Tubigrip Used Size E -Size E ($) 2 Treatment Response Pain Scale: 0-10 Numeric Is Patient Pain Free? Yes WC - Visit Discharge Discharge Condition Stable Ambulatory Status Ambulatory Transportation Private Auto Assessment/Plan Assessment/Plan (1) Nonhealing surgical wound: CODE(S): T81.89XA - Other complications of procedures, 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ssified, initial encounter QUALIFIERS: Encounter type: initial encounter Qualified Code(s): T81.89XA - Other complications of procedures, 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ssified, initial encounter PLAN: Wash left leg with Hibiclens or with antibacterial soap and water and apply Aquacel extra moistened then gauze ABD and Stacey to left leg with a doublelayer Tubigrip over top this is to be done daily. 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 lower leg with fat layer exposed 12/02/24 1002 Cosigner Signature (if applicable): CC: ~ Signed [facility]07-23-2025 Progress note Author Magdalena Whaley [facility] Note Date/Time November 25, 2024 10:5 4am [facility] [address] [place] [id number] Progress Note - Wound Care 11/25/24 1047 MR#: [id number] Acct: [id number] Name: CHEY JEFFERS Rep #:[id number] : 1960 63 From: Magdalena Whaley NP, NP-C PCP: Dr. Edda Oconnor MD Status:RE G RCR Location: ADDENDUM by RISHABH Whaley on 11/25/24 at 1054 Assessment & Plan (1) Traumatic ulcer of left lower leg: QUALIFIERS: Non-pressure ulcer stage: with fat layer exposed Qualified Code(s): L97.922 - Non-pressure chronic ulcer of unspecified part of left lower leg with fat layer exposed (2) Ulcer of left lower extremity with necrosis of muscle: PLAN: Wash leg with antibacterial soap and water and she is to apply Xeroform then Adaptic cover with the Hemlock SAP foam dressings daily and then she is to wear a double layer Tubigrip on the lower extremity every day. Follow-up in 1 week 11/25/24 1054<Electronically signed by Magdalena Whaley NP [employer]LECT[employer] WELDER-C> Cosigner Signature (if applicable): cc: ~* Signed History of Present Illness Date of Service: 11/25/24 Chief Complaint: Left lower walls from a fall on some wooden steps outside her house seen in the emergency room on October 22 History of Wound: 63-year-old white female that had sutures put in the dehisced and now she has a well-approximated wound but it has a lot of blackened scabs and peeling skin. Progress of Wound: Still very superficial on the wound supersensitive when trying to debride. She has a lot of allergies to everything so we have to be careful. The measurementsare smaller we are using Xeroform with Adaptic which seems to be working well for her it is easier for her to apply and it does not require any pain and it seems to be cleaning it up pretty good and trying to debride is much as possiblewhen she comes in. I have just dried skin and old blood. Subjective Subjective Patient is more tolerant to debridement and doing well has no concerns Objective Data Objective Data No sign of infection cultures came back negative filling in nicely still has a lot of tissue and necrosis that has to be debrided out each week but it is measuring smaller. Vital Signs: Vital Signs Temp Pulse Resp BP 97.5 F L 96 16 146/78 H 11/25/24 08:34 11/25/24 08:34 11/25/24 08:34 11/25/24 08:34 Lab / Micro Data Attestation: I reviewed the patient's lab results. Micro: Microbiology 11/11/24 09:20 Wound - Other Gram Stain - Final 11/11/24 09:20 Wound - Other Wound Culture - Final No growth aerobically. 11/11/24 09:20 Wound - Other Anaerobic Culture - Final No anaerobic bacteria isolated. Physical Exam Const oriented x3 General Appearance: cooperative Exam Limitations: no limitations HEENT normocephalic Face and Sinus: normal facial exam External Ear: external ears normal Eyes General Eye: normal appearance of both eyes Neck full ROM General: normal visual inspection Resp normal respiratory effort Effort and Inspection: able to speak in complete sentences Auscultation: clear to auscultation bilaterally Cardio regular rate and regular rhythm Palpation: normal PMI Rate: regular rate Rhythm: regular rhythm GI Palpation: no hepatosplenomegaly Back/Spine Cervical Spine: cervical ROM normal Thoracic Spine / Upper Back: normal to inspection Lumbar Spine / Lower Back: normal to inspection Extremity General Extremity: normal exam except as noted, edema and other findings Other Details: Wound on the left walls Skin Wounds: wounds noted Wound Narrative: Left walls well scabbed not healed Neuro oriented x3 Psych Appearance: grossly normal Speech: normal speech Thought Content: normal thought content Judgement: judgement good Debridement Note Debridement Note Wound debrided: Traumatic left walls wound Type of Debridement: Excisional debridement Anesthesia Used: 5% Lidocaine Gel Depth: Down to and including healthy tissue and in the subcutaneous layer Percentage of wound debrided: 100 Instrument Used: 5mm curette Tissue Removed: Devitalized tissue and fibrin Severity: Fat Layer Exposed Amount of bleeding with debridement: Mild Bleeding Controlled with: Compression and gauze Patient tolerated procedure: Patient tolerated procedure well Post-Debridement Measurements and Additional Note: Post-Debridement Measurements/Treatment - Nurse 1 - General Ulcer Assessment Start: 11/11/24 08:20 Freq: Status: Active Protocol: SLIM.CESAR Activity Type Activity Date Activity User E-sign Co-sign Detail Recorded Client Recorded Date Recorded By Document 11/11/24 08:21 DL [id number] 11/11/24 08:37 DL Document 11/18/24 08:27 DL [id number] 11/18/24 08:36 DL Document 11/25/24 08:34 DL [id number] 11/25/24 08:41 DL 11/11/24 11/18/24 11/25/24 08:21 08:27 08:34 - Today's Visit Information Type of service Initial Visit Follow-up Visit Follow-up Visit (Physician/GEOSCIENCE LABORATORY TECHNICIAN (Physician/GEOSCIENCE LABORATORY TECHNICIAN ) ) Arrival Mode Ambulatory Ambulatory Ambulatory Transfer Assistance None None Patient Identification Verified (Name & Yes Yes ) Patient Requires Transmission-Based No No Precautions Vital Signs Temperature (97.8 F-99.1 F) 97.7 F L 97.2 F L 97.5 F L Temperature Source Temporal Temporal Temporal Pulse Rate (60-100) 106 H 108 H 96 Pulse Location Monitor Monitor Monitor Respiratory Rate (12-18) 18 16 16 Respiratory rate source Observation Observation Observation Blood Pressure (90/60-120/80) 153/80 H 140/75 H 146/78 H Blood Pressure Mean (mm Hg) 104 96 100 Source Monitor Monitor Monitor History Since Last Visit- (Skip if this is Patient's initial visit) Have you changed medications since your No No last visit? Any new allergies or adverse reactions No No Had a fall/change in ADL's that may No No increase risk of falls Signs or symptoms of abuse and/or No No neglect since last visit Have you been in the hospital since your No No last visit? Has dressing in place as prescribed Yes Yes Has compression in place as prescribed Yes Yes Has offloadiing in place as prescribed N/A Yes Experienced any changes in pain level or No No management Right Footwear Surgical Shoe with pressure relief insole Pain Scale: 0-10 Numeric Is Patient Pain Free? Yes Yes Yes Lower Extremity Assessment/ Foot Assessment/ Toe Nail Assessment Left -Posterior Tibial Palpable No -Dorsalis Pedis Palpable No -Extremity Color Normal -Hair Growth on Legs No -Hair Growth on Toes No -Temperature of Extremity Warm -Capillary Refill Less than 3 Seconds -Dependent Rubor No -Blanched when Elevated No -Lipodermatosclerosis No -Other Deformity No -Prior Foot Ulcer No -Charcot Joint No -Prior Amputation No -Thick Yes -Discolored Yes -Deformed No -Improper Length & Hygeine No Right -Posterior Tibial Palpable Yes -Dorsalis Pedis Palpable Yes -Extremity Color Normal -Hair Growth on Legs Yes -Hair Growth on Toes Yes -Temperature of Extremity Warm -Capillary Refill Less than 3 Seconds -Dependent Rubor No -Blanched when Elevated No -Lipodermatosclerosis No -Other Deformity No -Prior Foot Ulcer No -Charcot Joint No -Prior Amputation No -Thick Yes -Discolored Yes -Deformed No -Improper Length & Hygeine No Neuropathy Assessment Feet - Top Side and Bottom <Entered> (a) Communication Assessment Preferred language [place]ar[place] Able to Read Yes Able to Write Yes Communication Tools None Right Hearing Abillity Normal Left Hearing Abillity Normal Visual Assistive Devices None Teaching Assessment Preferences Verbal,Written Barriers to Learning None Readiness To Learn Good Willingness to Engage in Self Management Med Activies Readiness to Engage in Self Management Med Activities Anxiety Level Calm Cooperation Cooperative Perception Coherent Interest in Health Problem Asks Questions Education Importance Acknowledges Need Does Patient Smoke tobacco or other No substances Smoking Status Never smoker Is Patient Diabetic No Functional Assessment Recent Decline in Ability to Perform Denies Any Declines Teaching: Wound Center Dressing Your Wound -Person Taught Patient *Wound/Skin Impairment -Person Taught Patient (a) 1 - + WC - Nurse 1 - General Ulcer Measurement Start: 11/11/24 08:20 Freq: Status: Active Protocol: Activity Type Activity Date Activity User E-sign Co-sign Detail Recorded Client Recorded Date Recorded By Document 11/11/24 08:21 DL [id number] 11/11/24 08:37 DL Document 11/18/24 08:27 DL [id number] 11/18/24 08:36 DL Document 11/25/24 08:34 DL [id number] 11/25/24 08:41 DL 11/11/24 11/18/24 11/25/24 08:21 08:27 08:34 Wound Center Nurse 1 #2 L Walls Cluster -Current Size (cm) - Length 0.1 6.8 7.8 -Current Size (cm) - Width 0.1 1 2.1 -Current Size (cm) - Depth 0.1 0.1 0.1 -Total Square Cm 0.01 6.8 16.38 -Photo Taken Yes Yes Yes -Exudate Amt Small Small Medium -Exudate Type Serosanguineous Serosanguineous -Wound Margin Distinct, Distinct, Distinct, Outline Outline Outline Attached Attached Attached -Granulation Amt None Present (0 Medium (34-66%) Medium (34-66%) %) -Granulation Quality [place] Red -Necrosis Amt Small (1-33%) Medium (34-66%) Medium (34-66%) -Necrotic Tissue Type Adherent Slough Adherent Slough Adherent Slough -Structure Exposed N/A N/A N/A -Texture (Adry-wound Skin Appearance) Localized Edema Localized Edema Scarring ,Scarring ,Scarring -Moisture (Adry-wound Skin Appearance) No Abnormality No Abnormality No Abnormality -Color (Adry-wound Skin Appearance) No Abnormality No Abnormality No Abnormality -Temperature (Adry-wound Skin No Abnormality No Abnormality No Abnormality Appearance) (Pt Warm) (Pt Warm) (Pt Warm) -Tenderness on Palpation (Ardy-wound No Skin Appearance) -Ulcer Cleansing Soap and Water Soap and Water Soap and Water -Foul Odor after Cleansing No No No -Anesthetic Used 4% Lidocaine 5% Lidocaine 5% Lidocaine Solution Gel Gel Right Calf (cm) 30 29.5 Right Ankle (cm) 18.5 19.8 Left Calf (cm) 33 30 Left Ankle (cm) 21 19.3 WC - Nurse 2 - General Ulcer CM Notes Start: 11/11/24 08:20 Freq: Status: Active Protocol: Activity Type Activity Date Activity User E-sign Co-sign Detail Recorded Client Recorded Date Recorded By Document 11/11/24 09:10 [facility] [id number] 11/11/24 09:27 [facility] Document 11/18/24 08:54 [facility] [id number] 11/18/24 09:04 [facility] Document 11/25/24 08:58 [facility] [id number] 11/25/24 09:04 [facility] 11/11/24 11/18/24 11/25/24 09:10 08:54 08:58 Wound Center Nurse 2 #2 L Walls Cluster -Time 09:10 08:55 08:59 -Correct Patient Yes Yes Yes -Correct Side, Site, Position Yes Yes Yes -Correct Procedure Yes Yes Yes -Procedure Performed Yes Yes Yes -Type of Procedure Debridement Debridement Debridement -Clinical Debridement Subcutaneous Subcutaneous Subcutaneous -Tissue Removed Subcutaneous Subcutaneous Subcutaneous -Post Debridement (cm) - Length 9.4 9 8.4 -Post Debridement (cm) - Width 3.5 3 2.3 -Post Debridement (cm) - Depth 0.2 0.1 0.2 -Total Square (Post) (cm) 32.90 27 19.32 -Area of Debridement (cm) - Length 9.4 9 8.4 -Area of Debridement (cm) - Width 3.5 3 2.3 -Total Square (Area) (cm) 32.90 27 19.32 -Tunneling No No No -Undermining/Tunneling No No No -Circular Undermining No No No -Wound/Ulcer Outcome Not Healed Not Healed Not Healed -Ulcer Cleansing Rinsed/ Rinsed/ Rinsed/ Irrigated with Irrigated with Irrigated with Saline Saline Saline -Foul Odor after Cleansing No No No -Bioengineered Tissue No No No -Bleeding Controlled with Pressure Pressure Pressure -Treatment Response Procedure Procedure Procedure Tolerated Well Tolerated Well Tolerated Well -Debridement - Subq, 1st 20sq cm Yes Yes Yes -Debridement, SubQ, ea addt'l 20sq cm 1 or part thereof Pain Scale: 0-10 Numeric Is Patient Pain Free? Yes Yes Yes WC - Nurse 3 - General Ulcer D/C NN Start: 11/11/24 08:20 Freq: Status: Active Protocol: Activity Type Activity Date Activity User E-sign Co-sign Detail Recorded Client Recorded Date Recorded By Document 11/11/24 09:41 DL [id number] 11/11/24 09:42 DL Document 11/18/24 09:14 BMF [id number] 11/18/24 09:15 BMF Document 11/25/24 09:14 BM [id number] 11/25/24 09:15 BMF 11/11/24 11/18/24 11/25/24 09:41 09:14 09:14 Wound Care Center Nurse 3 #2 L Walls Cluster -Ulcer Cleansing Rinsed/ Rinsed/ Rinsed/ Irrigated with Irrigated with Irrigated with Saline Saline Saline -Foul Odor after Cleansing No No No -Primary Dressing Applied NonAdherent NonAdherent NonAdherent Contact Layer Contact Layer Contact Layer -Other Dressing Xerofrom xeroform, xeroform, adaptic adaptic, abd -Primary Dressing Covered/Secured with Dry Gauze & Dry Gauze & Dry Gauze & Roll Gauze, Roll Gauze, Roll Gauze, Secured with Secured with Secured with Tape Tape Tape -Other Covering ABD abd drsg 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 Yes Yes Yes WC - Visit Discharge Discharge Condition Stable Stable Stable Ambulatory Status Ambulatory Ambulatory Ambulatory Transportation Private Auto Private Auto Private Auto 11/25/24 1052 <Electronically signed by Magdalena Whaley NP [employer]ELDER-C> Cosigner Signature (if applicable): CC: ~ Signed [facility] Work Phone: [phone]) [phone] [facility] [address] [place] [address] Progress Note - Wound Care 11/25/24 1047 MR#: [id number] Acct: [id number] Name: CHEY JEFFERS Rep #:[id number] : 1960 63 From: Magdalena Whaley NP ELECT[employer] SP[employer] WELDER-C PCP: Dr. Edda Oconnor MD Status:RE G RCR Location: ADDENDUM by KEYA-Vannesa Whaley on 11/25/24 at 1054 Assessment & Plan (1) Traumatic ulcer of left lower leg: QUALIFIERS: Non-pressure ulcer stage: with fat layer exposed Qualified Code(s): L97.922 - Non-pressure chronic ulcer of unspecified part of left lower leg with fat layer exposed (2) Ulcer of left lower extremity with necrosis of muscle: PLAN: Wash leg with antibacterial soap and water and she is to apply Xeroform then Adaptic cover with the Hemlock SAP foam dressings daily and then she is to wear a double layer Tubigrip on the lower extremity every day. Follow-up in 1 week 11/25/24 1054 Cosigner Signature (if applicable): cc: ~* Signed History of Present Illness Date of Service: 11/25/24 Chief Complaint: Left lower walls from a fall on some wooden steps outside her house seen in the emergency room on October 22 History of Wound: 63-year-old white female that had sutures put in the dehisced and now she has a well-approximated wound but it has a lot of blackened scabs and peeling skin. Progress of Wound: Still very superficial on the wound supersensitive when trying to debride. She has a lot of allergies to everything so we have to be careful. The measurementsare smaller we are using Xeroform with Adaptic which seems to be working well for her it is easier for her to apply and it does not require any pain and it seems to be cleaning it up pretty good and trying to debride is much as possiblewhen she comes in. I have just dried skin and old blood. Subjective Subjective Patient is more tolerant to debridement and doing well has no concerns Objective Data Objective Data No sign of infection cultures came back negative filling in nicely still has a lot of tissue and necrosis that has to be debrided out each week but it is measuring smaller. Vital Signs: Vital Signs Temp Pulse Resp BP 97.5 F L 96 16 146/78 H 11/25/24 08:34 11/25/24 08:34 11/25/24 08:34 11/25/24 08:34 Lab / Micro Data Attestation: I reviewed the patient's lab results. Micro: Microbiology 11/11/24 09:20 Wound - Other Gram Stain - Final 11/11/24 09:20 Wound - Other Wound Culture - Final No growth aerobically. 11/11/24 09:20 Wound - Other Anaerobic Culture - Final No anaerobic bacteria isolated. Physical Exam Const oriented x3 General Appearance: cooperative Exam Limitations: no limitations HEENT normocephalic Face and Sinus: normal facial exam External Ear: external ears normal Eyes General Eye: normal appearance of both eyes Neck full ROM General: normal visual inspection Resp normal respiratory effort Effort and Inspection: able to speak in complete sentences Auscultation: clear to auscultation bilaterally Cardio regular rate and regular rhythm Palpation: normal PMI Rate: regular rate Rhythm: regular rhythm GI Palpation: no hepatosplenomegaly Back/Spine Cervical Spine: cervical ROM normal Thoracic Spine / Upper Back: normal to inspection Lumbar Spine / Lower Back: normal to inspection Extremity General Extremity: normal exam except as noted, edema and other findings Other Details: Wound on the left walls Skin Wounds: wounds noted Wound Narrative: Left walls well scabbed not healed Neuro oriented x3 Psych Appearance: grossly normal Speech: normal speech Thought Content: normal thought content Judgement: judgement good Debridement Note Debridement Note Wound debrided: Traumatic left walls wound Type of Debridement: Excisional debridement Anesthesia Used: 5% Lidocaine Gel Depth: Down to and including healthy tissue and in the subcutaneous layer Percentage of wound debrided: 100 Instrument Used: 5mm curette Tissue Removed: Devitalized tissue and fibrin Severity: Fat Layer Exposed Amount of bleeding with debridement: Mild Bleeding Controlled with: Compression and gauze Patient tolerated procedure: Patient tolerated procedure well Post-Debridement Measurements and Additional Note: Post-Debridement Measurements/Treatment WC - Nurse 1 - General Ulcer Assessment Start: 11/11/24 08:20 Freq: Status: Active Protocol: LEX Activity Type Activity Date Activity User E-sign Co-sign Detail Recorded Client Recorded Date Recorded By Document 11/11/24 08:21 DL [id number] 11/11/24 08:37 DL Document 07/16/25 08:27 DL [id number] 11/18/24 08:36 DL Document 11/25/24 08:34 DL [id number] 11/25/24 08:41 DL 11/11/24 11/18/24 11/25/24 08:21 08:27 08:34 WC - Today's Visit Information Type of service Initial Visit Follow-up Visit Follow-up Visit (Physician/GEOSCIENCE LABORATORY TECHNICIAN (Physician/GEOSCIENCE LABORATORY TECHNICIAN ) ) Arrival Mode Ambulatory Ambulatory Ambulatory Transfer Assistance None None Patient Identification Verified (Name & Yes Yes ) Patient Requires Transmission-Based No No Precautions Vital Signs Temperature (97.8 F-99.1 F) 97.7 F L 97.2 F L 97.5 F L Temperature Source Temporal Temporal Temporal Pulse Rate (60-100) 106 H 108 H 96 Pulse Location Monitor Monitor Monitor Respiratory Rate (12-18) 18 16 16 Respiratory rate source Observation Observation Observation Blood Pressure (90/60-120/80) 153/80 H 140/75 H 146/78 H Blood Pressure Mean (mm Hg) 104 96 100 Source Monitor Monitor Monitor History Since Last Visit- (Skip if this is Patient's initial visit) Have you changed medications since your No No last visit? Any new allergies or adverse reactions No No Had a fall/change in ADL's that may No No increase risk of falls Signs or symptoms of abuse and/or No No neglect since last visit Have you been in the hospital since your No No last visit? Has dressing in place as prescribed Yes Yes Has compression in place as prescribed Yes Yes Has offloadiing in place as prescribed N/A Yes Experienced any changes in pain level or No No management Right Footwear Surgical Shoe with pressure relief insole Pain Scale: 0-10 Numeric Is Patient Pain Free? Yes Yes Yes Lower Extremity Assessment/ Foot Assessment/ Toe Nail Assessment Left -Posterior Tibial Palpable No -Dorsalis Pedis Palpable No -Extremity Color Normal -Hair Growth on Legs No -Hair Growth on Toes No -Temperature of Extremity Warm -Capillary Refill Less than 3 Seconds -Dependent Rubor No -Blanched when Elevated No -Lipodermatosclerosis No -Other Deformity No -Prior Foot Ulcer No -Charcot Joint No -Prior Amputation No -Thick Yes -Discolored Yes -Deformed No -Improper Length & Hygeine No Right -Posterior Tibial Palpable Yes -Dorsalis Pedis Palpable Yes -Extremity Color Normal -Hair Growth on Legs Yes -Hair Growth on Toes Yes -Temperature of Extremity Warm -Capillary Refill Less than 3 Seconds -Dependent Rubor No -Blanched when Elevated No -Lipodermatosclerosis No -Other Deformity No -Prior Foot Ulcer No -Charcot Joint No -Prior Amputation No -Thick Yes -Discolored Yes -Deformed No -Improper Length & Hygeine No Neuropathy Assessment Feet - Top Side and Bottom (a) Communication Assessment Preferred language Nicaraguan Able to Read Yes Able to Write Yes Communication Tools None Right Hearing Abillity Normal Left Hearing Abillity Normal Visual Assistive Devices None Teaching Assessment Preferences Verbal,Written Barriers to Learning None Readiness To Learn Good Willingness to Engage in Self Management Med Activies Readiness to Engage in Self Management Med Activities Anxiety Level Calm Cooperation Cooperative Perception Coherent Interest in Health Problem Asks Questions Education Importance Acknowledges Need Does Patient Smoke tobacco or other No substances Smoking Status Never smoker Is Patient Diabetic No Functional Assessment Recent Decline in Ability to Perform Denies Any Declines Teaching: Wound Center Dressing Your Wound -Person Taught Patient *Wound/Skin Impairment -Person Taught Patient (a) 1 - + WC - Nurse 1 - General Ulcer Measurement Start: 11/11/24 08:20 Freq: Status: Active Protocol: Activity Type Activity Date Activity User E-sign Co-sign Detail Recorded Client Recorded Date Recorded By Document 11/11/24 08:21 DL [id number] 11/11/24 08:37 DL Document 11/18/24 08:27 DL [id number] 11/18/24 08:36 DL Document 11/25/24 08:34 DL [id number] 11/25/24 08:41 DL 11/11/24 11/18/24 11/25/24 08:21 08:27 08:34 Wound Center Nurse 1 #2 L Walls Cluster -Current Size (cm) - Length 0.1 6.8 7.8 -Current Size (cm) - Width 0.1 1 2.1 -Current Size (cm) - Depth 0.1 0.1 0.1 -Total Square Cm 0.01 6.8 16.38 -Photo Taken Yes Yes Yes -Exudate Amt Small Small Medium -Exudate Type Serosanguineous Serosanguineous -Wound Margin Distinct, Distinct, Distinct, Outline Outline Outline Attached Attached Attached -Granulation Amt None Present (0 Medium (34-66%) Medium (34-66%) %) -Granulation Quality [place] Red -Necrosis Amt Small (1-33%) Medium (34-66%) Medium (34-66%) -Necrotic Tissue Type Adherent Slough Adherent Slough Adherent Slough -Structure Exposed N/A N/A N/A -Texture (Adry-wound Skin Appearance) Localized Edema Localized Edema Scarring ,Scarring ,Scarring -Moisture (Adry-wound Skin Appearance) No Abnormality No Abnormality No Abnormality -Color (Adry-wound Skin Appearance) No Abnormality No Abnormality No Abnormality -Temperature (Adry-wound Skin No Abnormality No Abnormality No Abnormality Appearance) (Pt Warm) (Pt Warm) (Pt Warm) -Tenderness on Palpation (Adry-wound No Skin Appearance) -Ulcer Cleansing Soap and Water Soap and Water Soap and Water -Foul Odor after Cleansing No No No -Anesthetic Used 4% Lidocaine 5% Lidocaine 5% Lidocaine Solution Gel Gel Right Calf (cm) 30 29.5 Right Ankle (cm) 18.5 19.8 Left Calf (cm) 33 30 Left Ankle (cm) 21 19.3 WC - Nurse 2 - General Ulcer CM Notes Start: 11/11/24 08:20 Freq: Status: Active Protocol: Activity Type Activity Date Activity User E-sign Co-sign Detail Recorded Client Recorded Date Recorded By Document 11/11/24 09:10 [facility] [id number] 11/11/24 09:27 [facility] Document 11/18/24 08:54 [facility] [id number] 11/18/24 09:04 [facility] Document 11/25/24 08:58 [facility] [id number] 11/25/24 09:04 [facility] 11/11/24 11/18/24 11/25/24 09:10 08:54 08:58 Wound Center Nurse 2 #2 L Walls Cluster -Time 09:10 08:55 08:59 -Correct Patient Yes Yes Yes -Correct Side, Site, Position Yes Yes Yes -Correct Procedure Yes Yes Yes -Procedure Performed Yes Yes Yes -Type of Procedure Debridement Debridement Debridement -Clinical Debridement Subcutaneous Subcutaneous Subcutaneous -Tissue Removed Subcutaneous Subcutaneous Subcutaneous -Post Debridement (cm) - Length 9.4 9 8.4 -Post Debridement (cm) - Width 3.5 3 2.3 -Post Debridement (cm) - Depth 0.2 0.1 0.2 -Total Square (Post) (cm) 32.90 27 19.32 -Area of Debridement (cm) - Length 9.4 9 8.4 -Area of Debridement (cm) - Width 3.5 3 2.3 -Total Square (Area) (cm) 32.90 27 19.32 -Tunneling No No No -Undermining/Tunneling No No No -Circular Undermining No No No -Wound/Ulcer Outcome Not Healed Not Healed Not Healed -Ulcer Cleansing Rinsed/ Rinsed/ Rinsed/ Irrigated with Irrigated with Irrigated with Saline Saline Saline -Foul Odor after Cleansing No No No -Bioengineered Tissue No No No -Bleeding Controlled with Pressure Pressure Pressure -Treatment Response Procedure Procedure Procedure Tolerated Well Tolerated Well Tolerated Well -Debridement - Subq, 1st 20sq cm Yes Yes Yes -Debridement, SubQ, ea addt'l 20sq cm 1 or part thereof Pain Scale: 0-10 Numeric Is Patient Pain Free? Yes Yes Yes WC - Nurse 3 - General Ulcer D/C NN Start: 11/11/24 08:20 Freq: Status: Active Protocol: Activity Type Activity Date Activity User E-sign Co-sign Detail Recorded Client Recorded Date Recorded By Document 11/11/24 09:41 DL [id number] 11/11/24 09:42 DL Document 11/18/24 09:14 [facility] [id number] 11/18/24 09:15 BM Document 11/25/24 09:14 [facility] [id number] 11/25/24 09:15 BM 11/11/24 11/18/24 11/25/24 09:41 09:14 09:14 Wound Care Center Nurse 3 #2 L Walls Cluster -Ulcer Cleansing Rinsed/ Rinsed/ Rinsed/ Irrigated with Irrigated with Irrigated with Saline Saline Saline -Foul Odor after Cleansing No No No -Primary Dressing Applied NonAdherent NonAdherent NonAdherent Contact Layer Contact Layer Contact Layer -Other Dressing Xerofrom xeroform, xeroform, adaptic adaptic, abd -Primary Dressing Covered/Secured with Dry Gauze & Dry Gauze & Dry Gauze & Roll Gauze, Roll Gauze, Roll Gauze, Secured with Secured with Secured with Tape Tape Tape -Other Covering ABD abd drsg 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 Yes Yes Yes WC - Visit Discharge Discharge Condition Stable Stable Stable Ambulatory Status Ambulatory Ambulatory Ambulatory Transportation Private Auto Private Auto Private Auto 11/25/24 1052 Cosigner Signature (if applicable): CC: ~ Signed [facility]07-18-2025 History of Present illness Narrative* Wendy Soria, RT(R) - 11/20/2024 10:20 AM EDT Radiology Service Progress Note DATE OF SERVICE: November 20, 2024 TIME: 3:55 PM PATIENT IDENTITY VERIFICATION COMPLETED USING TWO (2) STANDARD IDENTIFIERS: Name and Date of confirmed by patient verbally. FALL SCREENING: Has the patient had 2 falls in the last year or 1 fall with injury or currently using an Ambulatory Assistive Device (Walker, Cane, Wheelchair, Crutches, etc.)? No PATIENT GENDER DATA: PATIENT RELEVANT IMPLANT DATA REVIEWED: Yes PATIENT PRESENTS WITH AN IMPLANTABLE OR ATTACHED LUMBER YARD WORKER: No ALLERGIES: Reviewed and unchanged CONTRAST ALLERGY: NO. EXAM: CT -CONTRAST INDUCED NEPHROPATHY RISK FACTORS: Patient age > 60 years CREATININE: Creatinine Date Value Ref Range Status 11/04/2024 1.02 (H) 0.58 - 0.96 mg/dL Final 04/25/2024 1.06 (H) 0.58 - 0.96 mg/dL Final 05/11/2023 1.07 (H) 0.58 - 0.96 mg/dL Final Estimated Glomerular Filtration Rate Date Value Ref Range Status 11/04/2024 62 >=60 mL/min/1.73m Final Comment: Estimated Glomerular Filtration Rate (eGFR) is calculated using the 2020 CKD-EPI creatinine equation. This equation utilizes serum creatinine, sex, and age as parameters. The creatinine assay has traceable calibration to isotope dilution- mass spectrometry. Refer to KDIGO guidelines for clinical interpretation. In patients with unstable renal function, e.g. those with acute kidney injury, the eGFRmay not accurately reflect actual GFR. eGFR- Date Value Ref Range Status 04/28/2019 >60 Final P.O.C.T. RESULTS: POC done: Yes, See Lab Tab November 20, 2024 TREATMENT: N/A PERIPHERAL IV DATA: Ambulatory: A peripheral IV was started in the Left antecubital site with a Angio cath: 22 gauge. RADIOLOGY DEPARTMENT: CT; Exam(s) Completed: Abdomen SIGNATURE: RT Latasha(Leanne) PATIENT NAME: Chey Jeffers DATE: November 20, 2024 TIME: 3:55 PM [facility] NoteHNO ID: [id number] Author: WENDY SORIA RT(Leanne) Service: ? Author Type: Instrument Mechanics Supervisor Type: Progress Notes Filed: 11/20/2024 15:56 Note Text: Radiology Service Progress Note DATE OF SERVICE: November 20, 2024 TIME: 3:55 PM PATIENT IDENTITY VERIFICATION COMPLETED USING TWO (2) STANDARD IDENTIFIERS: Name and Date of confirmed by patient verbally. FALL SCREENING: Has the patient had 2 falls in the last year or 1 fall with injury or currently using an Ambulatory Assistive Device (Walker, Cane, Wheelchair, Crutches, etc.)? No PATIENT GENDER DATA: PATIENT RELEVANT IMPLANT DATA REVIEWED: Yes PATIENT PRESENTS WITH AN IMPLANTABLE OR ATTACHED LUMBER YARD WORKER: No ALLERGIES: Reviewed and unchanged CONTRAST ALLERGY: NO. EXAM: CT -CONTRAST INDUCED NEPHROPATHY RISK FACTORS: Patient age > 60 years CREATININE: Creatinine Date Value Ref Range Status 11/04/2024 1.02 (H) 0.58 - 0.96 mg/dL Final 04/25/2024 1.06 (H) 0.58 - 0.96 mg/dL Final 05/11/2023 1.07 (H) 0.58 - 0.96 mg/dL Final Estimated Glomerular Filtration Rate Date Value Ref Range Status 11/04/2024 62 >=60 mL/min/1.73m? Final Comment: Estimated Glomerular Filtration Rate (eGFR) is calculated using the 2020 CKD-EPI creatinine equation. This equation utilizes serum creatinine, sex, and age as parameters. The creatinine assay has traceable calibration to isotope dilution-mass spectrometry. Refer to KDIGO guidelines for clinical interpretation. In patients with unstable renal function, e.g. those with acute kidney injury, the eGFR may not accurately reflect actual GFR. eGFR- Date Value Ref Range Status 04/28/2019 >60 Final P.O.C.T. RESULTS: POC done: Yes, See Lab Tab November 20, 2024 TREATMENT: N/A PERIPHERAL IV DATA: Ambulatory: A peripheral IV was started in the Left antecubital site with a Angio cath: 22 gauge. RADIOLOGY DEPARTMENT: CT; Exam(s) Completed: Abdomen SIGNATURE: RT Latasha(R) PATIENT NAME: Chey Jeffers DATE: November 20, 2024 TIME: 3:55 [facility]07-16-2025 Progress note Author Magdalena Whaley [facility] Note Date/Time November 18, 2024 9:23 am [facility] [address] [place] [address] Progress Note - Wound Care 11/18/24919 MR#: [id number] Acct: [id number] Name: CHEY JEFFERS Rep #:[id number] : 1960 63 From: Magdalena Whaley ELECTRIC SPOT WELDER ELECTRIC SPOT WELDER-C PCP: Dr. Edda Oconnor MD Status:RE G RCR Location: History of Present Illness Date of Service: 11/18/24 Chief Complaint: Left lower walls from a fall on some wooden steps outside her house seen in the emergency room on October 22 History of Wound: 63-year-old white female that had sutures put in the dehisced and now she has a well-approximated wound but it has a lot of blackened scabs and peeling skin. Progress of Wound: Still very superficial on the wound supersensitive when trying to debride. She has a lot of allergies to everything so we have to be careful. The measurementsare smaller we are using Xeroform with Adaptic which seems to be working well for her it is easier for her to apply and it does not require any pain and it seems to be cleaning it up pretty good and trying to debride is much as possiblewhen she comes in. I have just dried skin and old blood. Subjective Subjective Patient is compliant and with care and is doing well with the Tubigrip's and elevation. Objective Data Objective Data No sign of infection her growth came back negative for any anaerobes so she justneeds to close up and eat more protein. Vital Signs: Vital Signs Temp Pulse Resp BP 97.2 F L 108 H 16 140/75 H 11/18/24 08:27 11/18/24 08:27 11/18/24 08:27 11/18/24 08:27 Lab / Micro Data Micro: Microbiology 11/11/24 09:20 Wound - Other Gram Stain - Final 11/11/24 09:20 Wound - Other Wound Culture - Final No growth aerobically. 11/11/24 09:20 Wound - Other Anaerobic Culture - Final No anaerobic bacteria isolated. Physical Exam Const oriented x3 General Appearance: cooperative Exam Limitations: no limitations HEENT normocephalic Face and Sinus: normal facial exam External Ear: external ears normal Eyes General Eye: normal appearance of both eyes Neck full ROM General: normal visual inspection Resp normal respiratory effort Effort and Inspection: able to speak in complete sentences Auscultation: clear to auscultation bilaterally Cardio regular rate and regular rhythm Palpation: normal PMI Rate: regular rate Rhythm: regular rhythm GI Palpation: no hepatosplenomegaly Back/Spine Cervical Spine: cervical ROM normal Thoracic Spine / Upper Back: normal to inspection Lumbar Spine / Lower Back: normal to inspection Extremity General Extremity: normal exam except as noted, edema and other findings Other Details: Wound on the left walls Skin Wounds: wounds noted Wound Narrative: Left walls well scabbed not healed Neuro oriented x3 Psych Appearance: grossly normal Speech: normal speech Thought Content: normal thought content Judgement: judgement good Debridement Note Debridement Note Wound debrided: Traumatic left walls wound Type of Debridement: Excisional debridement Anesthesia Used: 5% Lidocaine Gel Depth: Down to and including healthy tissue and in the subcutaneous layer Percentage of wound debrided: 100 Instrument Used: 5mm curette Tissue Removed: Devitalized tissue and fibrin Severity: Fat Layer Exposed Amount of bleeding with debridement: Mild Bleeding Controlled with: Compression and gauze Patient tolerated procedure: Patient tolerated procedure well Post-Debridement Measurements and Additional Note: Post-Debridement Measurements/Treatment WC - Nurse 1 - General Ulcer Assessment Start: 11/11/24 08:20 Freq: Status: Active Protocol: LEX Activity Type Activity Date Activity User E-sign Co-sign Detail Recorded Client Recorded Date Recorded By Document 11/11/24 08:21 DL [id number] 11/11/24 08:37 DL Document 11/18/24 08:27 DL [id number] 07/16/25 08:36 DL 11/11/24 11/18/24 08:21 08:27 WC - Today's Visit Information Type of service Initial Visit Follow-up Visit (Physician/GEOSCIENCE LABORATORY TECHNICIAN ) Arrival Mode Ambulatory Ambulatory Transfer Assistance None Patient Identification Verified (Name & Yes ) Patient Requires Transmission-Based No Precautions Vital Signs Temperature (97.8 F-99.1 F) 97.7 F L 97.2 F L Temperature Source Temporal Temporal Pulse Rate (60-100) 106 H 108 H Pulse Location Monitor Monitor Respiratory Rate (12-18) 18 16 Respiratory rate source Observation Observation Blood Pressure (90/60-120/80) 153/80 H 140/75 H Blood Pressure Mean (mm Hg) 104 96 Source Monitor Monitor History Since Last Visit- (Skip if this is Patient's initial visit) Have you changed medications since your No last visit? Any new allergies or adverse reactions No Had a fall/change in ADL's that may No increase risk of falls Signs or symptoms of abuse and/or No neglect since last visit Have you been in the hospital since your No last visit? Has dressing in place as prescribed Yes Has compression in place as prescribed Yes Has offloadiing in place as prescribed N/A Experienced any changes in pain level or No management Pain Scale: 0-10 Numeric Is Patient Pain Free? Yes Yes Lower Extremity Assessment/ Foot Assessment/ Toe Nail Assessment Left -Posterior Tibial Palpable No -Dorsalis Pedis Palpable No -Extremity Color Normal -Hair Growth on Legs No -Hair Growth on Toes No -Temperature of Extremity Warm -Capillary Refill Less than 3 Seconds -Dependent Rubor No -Blanched when Elevated No -Lipodermatosclerosis No -Other Deformity No -Prior Foot Ulcer No -Charcot Joint No -Prior Amputation No -Thick Yes -Discolored Yes -Deformed No -Improper Length & Hygeine No Right -Posterior Tibial Palpable Yes -Dorsalis Pedis Palpable Yes -Extremity Color Normal -Hair Growth on Legs Yes -Hair Growth on Toes Yes -Temperature of Extremity Warm -Capillary Refill Less than 3 Seconds -Dependent Rubor No -Blanched when Elevated No -Lipodermatosclerosis No -Other Deformity No -Prior Foot Ulcer No -Charcot Joint No -Prior Amputation No -Thick Yes -Discolored Yes -Deformed No -Improper Length & Hygeine No Neuropathy Assessment Feet - Top Side and Bottom <Entered> (a) Communication Assessment Preferred language [place]ar[place] Able to Read Yes Able to Write Yes Communication Tools None Right Hearing Abillity Normal Left Hearing Abillity Normal Visual Assistive Devices None Teaching Assessment Preferences Verbal,Written Barriers to Learning None Readiness To Learn Good Willingness to Engage in Self Management Med Activies Readiness to Engage in Self Management Med Activities Anxiety Level Calm Cooperation Cooperative Perception Coherent Interest in Health Problem Asks Questions Education Importance Acknowledges Need Does Patient Smoke tobacco or other No substances Smoking Status Never smoker Is Patient Diabetic No Functional Assessment Recent Decline in Ability to Perform Denies Any Declines Teaching: Wound Center Dressing Your Wound -Person Taught Patient *Wound/Skin Impairment -Person Taught Patient (a) 1 - + WC - Nurse 1 - General Ulcer Measurement Start: 11/11/24 08:20 Freq: Status: Active Protocol: Activity Type Activity Date Activity User E-sign Co-sign Detail Recorded Client Recorded Date Recorded By Document 11/11/24 08:21 DL [id number] 11/11/24 08:37 DL Document 11/18/24 08:27 DL [id number] 11/18/24 08:36 DL 11/11/24 11/18/24 08:21 08:27 Wound Center Nurse 1 #2 L Walls Cluster -Current Size (cm) - Length 0.1 6.8 -Current Size (cm) - Width 0.1 1 -Current Size (cm) - Depth 0.1 0.1 -Total Square Cm 0.01 6.8 -Photo Taken Yes Yes -Exudate Amt Small Small -Exudate Type Serosanguineous -Wound Margin Distinct, Distinct, Outline Outline Attached Attached -Granulation Amt None Present (0 Medium (34-66%) %) -Granulation Quality [place] -Necrosis Amt Small (1-33%) Medium (34-66%) -Necrotic Tissue Type Adherent Slough Adherent Slough -Structure Exposed N/A N/A -Texture (Adry-wound Skin Appearance) Localized Edema Localized Edema ,Scarring ,Scarring -Moisture (Adry-wound Skin Appearance) No Abnormality No Abnormality -Color (Adry-wound Skin Appearance) No Abnormality No Abnormality -Temperature (Adry-wound Skin No Abnormality No Abnormality Appearance) (Pt Warm) (Pt Warm) -Tenderness on Palpation (Adry-wound No Skin Appearance) -Ulcer Cleansing Soap and Water Soap and Water -Foul Odor after Cleansing No No -Anesthetic Used 4% Lidocaine 5% Lidocaine Solution Gel Right Calf (cm) 30 29.5 Right Ankle (cm) 18.5 19.8 Left Calf (cm) 33 Left Ankle (cm) 21 - Nurse 2 - General Ulcer CM Notes Start: 11/11/24 08:20 Freq: Status: Active Protocol: Activity Type Activity Date Activity User E-sign Co-sign Detail Recorded Client Recorded Date Recorded By Document 11/11/24 09:10 [facility] [id number] 11/11/24 09:27 BM Document 11/18/24 08:54 [facility] [id number] 11/18/24 09:04 BMF 11/11/24 11/18/24 09:10 08:54 Wound Center Nurse 2 #2 L Walls Cluster -Time 09:10 08:55 -Correct Patient Yes Yes -Correct Side, Site, Position Yes Yes -Correct Procedure Yes Yes -Procedure Performed Yes Yes -Type of Procedure Debridement Debridement -Clinical Debridement Subcutaneous Subcutaneous -Tissue Removed Subcutaneous Subcutaneous -Post Debridement (cm) - Length 9.4 9 -Post Debridement (cm) - Width 3.5 3 -Post Debridement (cm) - Depth 0.2 0.1 -Total Square (Post) (cm) 32.90 27 -Area of Debridement (cm) - Length 9.4 9 -Area of Debridement (cm) - Width 3.5 3 -Total Square (Area) (cm) 32.90 27 -Tunneling No No -Undermining/Tunneling No No -Circular Undermining No No -Wound/Ulcer Outcome Not Healed Not Healed -Ulcer Cleansing Rinsed/ Rinsed/ Irrigated with Irrigated with Saline Saline -Foul Odor after Cleansing No No -Bioengineered Tissue No No -Bleeding Controlled with Pressure Pressure -Treatment Response Procedure Procedure Tolerated Well Tolerated Well -Debridement - Subq, 1st 20sq cm Yes Yes -Debridement, SubQ, ea addt'l 20sq cm 1 or part thereof Pain Scale: 0-10 Numeric Is Patient Pain Free? Yes Yes - Nurse 3 - General Ulcer D/C NN Start: 11/11/24 08:20 Freq: Status: Active Protocol: Activity Type Activity Date Activity User E-sign Co-sign Detail Recorded Client Recorded Date Recorded By Document 11/11/24 09:41 DL [id number] 11/11/24 09:42 DL Document 11/18/24 09:14 BM [id number] 11/18/24 09:15 BMF 11/11/24 11/18/24 09:41 09:14 Wound Care Center Nurse 3 #2 L Walls Cluster -Ulcer Cleansing Rinsed/ Rinsed/ Irrigated with Irrigated with Saline Saline -Foul Odor after Cleansing No No -Primary Dressing Applied NonAdherent NonAdherent Contact Layer Contact Layer -Other Dressing Xerofrom xeroform, adaptic -Primary Dressing Covered/Secured with Dry Gauze & Dry Gauze & Roll Gauze, Roll Gauze, Secured with Secured with Tape Tape -Other Covering ABD abd LLE -Tubular Bandage Double Layer Double Layer -Size of Tubigrip Used Size E Size E -Size E ($) 2 2 Treatment Response Procedure Procedure Tolerated Well Tolerated Well Pain Scale: 0-10 Numeric Is Patient Pain Free? Yes Yes WC - Visit Discharge Discharge Condition Stable Stable Ambulatory Status Ambulatory Ambulatory Transportation Private Auto Private Auto Assessment/Plan Assessment/Plan (1) Nonhealing surgical wound: CODE(S): T81.89XA - Other complications of procedures, 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ssified, initial encounter QUALIFIERS: Encounter type: initial encounter Qualified Code(s): T81.89XA - Other complications of procedures, 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ssified, initial encounter PLAN: Wash left leg with Hibiclens or with antibacterial soap and water and apply Xeroform Adaptic gauze ABD and Stacey to left leg with a double layer Tubigrip over top this is to be done daily. 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 lower leg with fat layer exposed 11/18/24 0923 <Electronically signed by Magdalena Whaley NP [employer]> Cosigner Signature (if applicable): CC: ~ Signed [facility] Work Phone: [phone] [facility] [address] [place] [address] Progress Note - Wound Care 11/18/24919 MR#: [id number] Acct: [id number] Name: CHEY JEFFERS Rep #:[id number] : 1960 63 From: Magdalena Whaley NP [employer] PCP: Dr. Edda Oconnor MD Status:RE G RCR Location: History of Present Illness Date of Service: 11/18/24 Chief Complaint: Left lower walls from a fall on some wooden steps outside her house seen in the emergency room on October 22 History of Wound: 63-year-old white female that had sutures put in the dehisced and now she has a well-approximated wound but it has a lot of blackened scabs and peeling skin. Progress of Wound: Still very superficial on the wound supersensitive when trying to debride. She has a lot of allergies to everything so we have to be careful. The measurementsare smaller we are using Xeroform with Adaptic which seems to be working well for her it is easier for her to apply and it does not require any pain and it seems to be cleaning it up pretty good and trying to debride is much as possiblewhen she comes in. I have just dried skin and old blood. Subjective Subjective Patient is compliant and with care and is doing well with the Tubigrip's and elevation. Objective Data Objective Data No sign of infection her growth came back negative for any anaerobes so she justneeds to close up and eat more protein. Vital Signs: Vital Signs Temp Pulse Resp BP 97.2 F L 108 H 16 140/75 H 11/18/24 08:27 11/18/24 08:27 11/18/24 08:27 11/18/24 08:27 Lab / Micro Data Micro: Microbiology 11/11/24 09:20 Wound - Other Gram Stain - Final 11/11/24 09:20 Wound - Other Wound Culture - Final No growth aerobically. 11/11/24 09:20 Wound - Other Anaerobic Culture - Final No anaerobic bacteria isolated. Physical Exam Const oriented x3 General Appearance: cooperative Exam Limitations: no limitations HEENT normocephalic Face and Sinus: normal facial exam External Ear: external ears normal Eyes General Eye: normal appearance of both eyes Neck full ROM General: normal visual inspection Resp normal respiratory effort Effort and Inspection: able to speak in complete sentences Auscultation: clear to auscultation bilaterally Cardio regular rate and regular rhythm Palpation: normal PMI Rate: regular rate Rhythm: regular rhythm GI Palpation: no hepatosplenomegaly Back/Spine Cervical Spine: cervical ROM normal Thoracic Spine / Upper Back: normal to inspection Lumbar Spine / Lower Back: normal to inspection Extremity General Extremity: normal exam except as noted, edema and other findings Other Details: Wound on the left walls Skin Wounds: wounds noted Wound Narrative: Left walls well scabbed not healed Neuro oriented x3 Psych Appearance: grossly normal Speech: normal speech Thought Content: normal thought content Judgement: judgement good Debridement Note Debridement Note Wound debrided: Traumatic left walls wound Type of Debridement: Excisional debridement Anesthesia Used: 5% Lidocaine Gel Depth: Down to and including healthy tissue and in the subcutaneous layer Percentage of wound debrided: 100 Instrument Used: 5mm curette Tissue Removed: Devitalized tissue and fibrin Severity: Fat Layer Exposed Amount of bleeding with debridement: Mild Bleeding Controlled with: Compression and gauze Patient tolerated procedure: Patient tolerated procedure well Post-Debridement Measurements and Additional Note: Post-Debridement Measurements/Treatment - Nurse 1 - General Ulcer Assessment Start: 11/11/24 08:20 Freq: Status: Active Protocol: LEX Activity Type Activity Date Activity User E-sign Co-sign Detail Recorded Client Recorded Date Recorded By Document 11/11/24 08:21 DL [id number] 11/11/24 08:37 DL Document 11/18/24 08:27 DL [id number] 11/18/24 08:36 DL 11/11/24 11/18/24 08:21 08:27 - Today's Visit Information Type of service Initial Visit Follow-up Visit (Physician/GEOSCIENCE LABORATORY TECHNICIAN ) Arrival Mode Ambulatory Ambulatory Transfer Assistance None Patient Identification Verified (Name & Yes ) Patient Requires Transmission-Based No Precautions Vital Signs Temperature (97.8 F-99.1 F) 97.7 F L 97.2 F L Temperature Source Temporal Temporal Pulse Rate (60-100) 106 H 108 H Pulse Location Monitor Monitor Respiratory Rate (12-18) 18 16 Respiratory rate source Observation Observation Blood Pressure (90/60-120/80) 153/80 H 140/75 H Blood Pressure Mean (mm Hg) 104 96 Source Monitor Monitor History Since Last Visit- (Skip if this is Patient's initial visit) Have you changed medications since your No last visit? Any new allergies or adverse reactions No Had a fall/change in ADL's that may No increase risk of falls Signs or symptoms of abuse and/or No neglect since last visit Have you been in the hospital since your No last visit? Has dressing in place as prescribed Yes Has compression in place as prescribed Yes Has offloadiing in place as prescribed N/A Experienced any changes in pain level or No management Pain Scale: 0-10 Numeric Is Patient Pain Free? Yes Yes Lower Extremity Assessment/ Foot Assessment/ Toe Nail Assessment Left -Posterior Tibial Palpable No -Dorsalis Pedis Palpable No -Extremity Color Normal -Hair Growth on Legs No -Hair Growth on Toes No -Temperature of Extremity Warm -Capillary Refill Less than 3 Seconds -Dependent Rubor No -Blanched when Elevated No -Lipodermatosclerosis No -Other Deformity No -Prior Foot Ulcer No -Charcot Joint No -Prior Amputation No -Thick Yes -Discolored Yes -Deformed No -Improper Length & Hygeine No Right -Posterior Tibial Palpable Yes -Dorsalis Pedis Palpable Yes -Extremity Color Normal -Hair Growth on Legs Yes -Hair Growth on Toes Yes -Temperature of Extremity Warm -Capillary Refill Less than 3 Seconds -Dependent Rubor No -Blanched when Elevated No -Lipodermatosclerosis No -Other Deformity No -Prior Foot Ulcer No -Charcot Joint No -Prior Amputation No -Thick Yes -Discolored Yes -Deformed No -Improper Length & Hygeine No Neuropathy Assessment Feet - Top Side and Bottom (a) Communication Assessment Preferred language Nicarag[place] Able to Read Yes Able to Write Yes Communication Tools None Right Hearing Abillity Normal Left Hearing Abillity Normal Visual Assistive Devices None Teaching Assessment Preferences Verbal,Written Barriers to Learning None Readiness To Learn Good Willingness to Engage in Self Management Med Activies Readiness to Engage in Self Management Med Activities Anxiety Level Calm Cooperation Cooperative Perception Coherent Interest in Health Problem Asks Questions Education Importance Acknowledges Need Does Patient Smoke tobacco or other No substances Smoking Status Never smoker Is Patient Diabetic No Functional Assessment Recent Decline in Ability to Perform Denies Any Declines Teaching: Wound Center Dressing Your Wound -Person Taught Patient *Wound/Skin Impairment -Person Taught Patient (a) 1 - + WC - Nurse 1 - General Ulcer Measurement Start: 11/11/24 08:20 Freq: Status: Active Protocol: Activity Type Activity Date Activity User E-sign Co-sign Detail Recorded Client Recorded Date Recorded By Document 11/11/24 08:21 DL [id number] 11/11/24 08:37 DL Document 11/18/24 08:27 DL [id number] 11/18/24 08:36 DL 11/11/24 11/18/24 08:21 08:27 Wound Center Nurse 1 #2 L Walls Cluster -Current Size (cm) - Length 0.1 6.8 -Current Size (cm) - Width 0.1 1 -Current Size (cm) - Depth 0.1 0.1 -Total Square Cm 0.01 6.8 -Photo Taken Yes Yes -Exudate Amt Small Small -Exudate Type Serosanguineous -Wound Margin Distinct, Distinct, Outline Outline Attached Attached -Granulation Amt None Present (0 Medium (34-66%) %) -Granulation Quality [place] -Necrosis Amt Small (1-33%) Medium (34-66%) -Necrotic Tissue Type Adherent Slough Adherent Slough -Structure Exposed N/A N/A -Texture (Adry-wound Skin Appearance) Localized Edema Localized Edema ,Scarring ,Scarring -Moisture (Adry-wound Skin Appearance) No Abnormality No Abnormality -Color (Adry-wound Skin Appearance) No Abnormality No Abnormality -Temperature (Adry-wound Skin No Abnormality No Abnormality Appearance) (Pt Warm) (Pt Warm) -Tenderness on Palpation (Adry-wound No Skin Appearance) -Ulcer Cleansing Soap and Water Soap and Water -Foul Odor after Cleansing No No -Anesthetic Used 4% Lidocaine 5% Lidocaine Solution Gel Right Calf (cm) 30 29.5 Right Ankle (cm) 18.5 19.8 Left Calf (cm) 33 Left Ankle (cm) 21 WC - Nurse 2 - General Ulcer CM Notes Start: 11/11/24 08:20 Freq: Status: Active Protocol: Activity Type Activity Date Activity User E-sign Co-sign Detail Recorded Client Recorded Date Recorded By Document 11/11/24 09:10 BM [id number] 11/11/24 09:27 BM Document 11/18/24 08:54 BM [id number] 11/18/24 09:04 BMF 11/11/24 11/18/24 09:10 08:54 Wound Center Nurse 2 #2 L Walls Cluster -Time 09:10 08:55 -Correct Patient Yes Yes -Correct Side, Site, Position Yes Yes -Correct Procedure Yes Yes -Procedure Performed Yes Yes -Type of Procedure Debridement Debridement -Clinical Debridement Subcutaneous Subcutaneous -Tissue Removed Subcutaneous Subcutaneous -Post Debridement (cm) - Length 9.4 9 -Post Debridement (cm) - Width 3.5 3 -Post Debridement (cm) - Depth 0.2 0.1 -Total Square (Post) (cm) 32.90 27 -Area of Debridement (cm) - Length 9.4 9 -Area of Debridement (cm) - Width 3.5 3 -Total Square (Area) (cm) 32.90 27 -Tunneling No No -Undermining/Tunneling No No -Circular Undermining No No -Wound/Ulcer Outcome Not Healed Not Healed -Ulcer Cleansing Rinsed/ Rinsed/ Irrigated with Irrigated with Saline Saline -Foul Odor after Cleansing No No -Bioengineered Tissue No No -Bleeding Controlled with Pressure Pressure -Treatment Response Procedure Procedure Tolerated Well Tolerated Well -Debridement - Subq, 1st 20sq cm Yes Yes -Debridement, SubQ, ea addt'l 20sq cm 1 or part thereof Pain Scale: 0-10 Numeric Is Patient Pain Free? Yes Yes WC - Nurse 3 - General Ulcer D/C NN Start: 11/11/24 08:20 Freq: Status: Active Protocol: Activity Type Activity Date Activity User E-sign Co-sign Detail Recorded Client Recorded Date Recorded By Document 11/11/24 09:41 DL [id number] 11/11/24 09:42 DL Document 11/18/24 09:14 [facility] [id number] 11/18/24 09:15 [facility] 11/11/24 11/18/24 09:41 09:14 Wound Care Center Nurse 3 #2 L Walls Cluster -Ulcer Cleansing Rinsed/ Rinsed/ Irrigated with Irrigated with Saline Saline -Foul Odor after Cleansing No No -Primary Dressing Applied NonAdherent NonAdherent Contact Layer Contact Layer -Other Dressing Xerofrom xeroform, adaptic -Primary Dressing Covered/Secured with Dry Gauze & Dry Gauze & Roll Gauze, Roll Gauze, Secured with Secured with Tape Tape -Other Covering ABD abd LLE -Tubular Bandage Double Layer Double Layer -Size of Tubigrip Used Size E Size E -Size E ($) 2 2 Treatment Response Procedure Procedure Tolerated Well Tolerated Well Pain Scale: 0-10 Numeric Is Patient Pain Free? Yes Yes WC - Visit Discharge Discharge Condition Stable Stable Ambulatory Status Ambulatory Ambulatory Transportation Private Auto Private Auto Assessment/Plan Assessment/Plan (1) Nonhealing surgical wound: CODE(S): T81.89XA - Other complications of procedures, 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ssified, initial encounter QUALIFIERS: Encounter type: initial encounter Qualified Code(s): T81.89XA - Other complications of procedures, 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ssified, initial encounter PLAN: Wash left leg with Hibiclens or with antibacterial soap and water and apply Xeroform Adaptic gauze ABD and Stacey to left leg with a double layer Tubigrip over top this is to be done daily. 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 lower leg with fat layer exposed 11/18/24 0923 Cosigner Signature (if applicable): CC: ~ Signed [facility]07-15-2025 Instructions* Patient Instructions* Ana Cristina Urbina APRN.CNP - 11/17/2024 2:12 PM EDT Continue Symbicort. Please try to use every day twice a day and rinse well after use. Continue Albuterol as needed. Consider injectable medicines previously recommended such as Dupixent. Sinus infection treatment with ENT. Repeat nitric oxide at next visit. [facility] History of Present illness Narrative* Ana Cristina Urbina APRN.CNP - 11/17/2024 1:30 PM EDT Images from the original note were not included. Pulmonary Medicine Patients name: Chey Jeffers PCP: Edda Oconnor MD CC: follow-up HPI: Chey Jeffers is a 63 year old female non-smoker with PMH significant for ankylosing spondylitis, depression, GERD, nasal polyps, recurrent sinusitis and asthma. NELSY 06/2024 with improved but persistently elevated nitric oxide. Biologic therapy discussed but patient reluctant. Current therapy with Symbicort and albuterol. Uses Singulair and OTC antihistamines for multiple allergies. She presents today for follow-up. Since her last visit, she has been experiencing multiple health problems. 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 She suffered a fall recently, requiring 21 sutures in her leg. Has been following with the wound center asit has been slow to heal. Additionally, she reports having a sinus infection for nearly 2 months. Follows with ENT and prescribed Levaquin. Not able to take Medrol d/t wound on her leg but reports that would help it clear up. Today, she states she has been sneezing frequently which causes wheezing.Having a lot of sinus congestion with PND which attributes to cough, occasionally produces yellow sputum. Will have some shortness of breath with exertion. Nitric oxide today 134 ppb. Has been forgetting to take Symbicort regularly with her grief. Doesn't typically need Albuterol, has used 3x in the past 2 weeks. PAST MEDICAL HISTORY Diagnosis Date Abnormal ultrasound of breast 06/17/2013 Acute gastritis Ankylosing spondylitis (HCC) Anxiety and depression 06/12/2005 Asthma (HCC) Bilateral renal cysts 03/11/2015 Calculus of kidney Dysthymic disorder Depression (non-psychotic) Enterocolitis due to Clostridium difficile 01/12/2015 Esophageal reflux HNP (herniated nucleus pulposus), lumbar 08/22/2011 Intrinsic asthma, unspecified 08/05/2008 Irritable bowel syndrome Irritable bowel FCI 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 01/16/2017 Menopause syndrome 01/19/2005 Myalgia and myositis, unspecified Nasal polyposis Polypectomy 03/2017 Dr. Mazariegos [facility]. Pure hypercholesterolemia Serrated adenoma of colon 07/29/2014 Symptomatic menopausal or female climacteric states Unspecified sinusitis (chronic) 06/21/2008 Allergies: Amoxicillin Rash Comment:Rash a few days into a course of treatment. Noted that had not reacted to test dose penicillin but developed rash after a few days on amoxicillin. Aspirin [Salicylate* Swelling, Shortness of Breath Comment:wheezing,swelling lips,rash,hives Codeine Hives Vicodin [Hydrocodon* Hives Cefdinir Itching Comment:Itchy scaly rash. (Patient may take penicillin and other penicillin type antibiotics. See allergy visit on 01/08/23) Demerol [Meperidine* Rash Tylenol [Acetaminop* Intolerance, Shortness of Breath Comment:asthma; makes it hard for her to breathe Ambien [Zolpidem] Intolerance Comment:Was sleepwalking (arranging books but hull not recall) Bactrim [Sulfametho* Comment:uncertain Budesonide Rash Celexa [Citalopram * GI Upset Doxy [Doxycycline] Comment:rash and asthma Durezol [Diflupredn* Rash Ibuprofen Shortness of Breath Keflex [Cephalexin] Intolerance Lexapro [Escitalopr* GI Upset Lyrica [Pregabalin] Mental Status Change Comment:dizzy Macrobid [Nitrofura* Diarrhea Maprotiline Itching Monurol [Fosfomycin] Diarrhea Mucomyst [Acetylcys* Cough Comment:increase wheezing Oxycodone Shortness of Breath Penicillins Hives Comment:Allergy skin tests to penicillin were negative. The patient took a test dose of amoxicillin and tolerated this without adverse reaction. The patient is at low risk for a severe, immediate, IgE-mediated reaction to penicillin, amoxicillin and other penicillin-type antibiotics. Skin tests are unreliable for predicting delayed reactions. Toradol [Ketorolac * Swelling Ultram [Tramadol Hc* Other: See Comments Comment:chest pains Vancomycin Other: See Comments Comment:Wheezing after taking, legs swollen and tongue swelling and scratchy neck Venlafaxine GI Upset Zithromax [Azithrom* Itching Mirtazapine Other: See Comments Comment:Hand shakes. Medication List Accurate as of November 16, 2024 1:43 PM. If you have any questions, ask your nurse or doctor. CONTINUE taking these medications * Albuterol Sulfate 1.25 mg/3 mL nebulizer solution Use 1 Ampule via nebulizer every 6 hours as needed for wheezing/shortness of breath. * albuterol HFA 90 mcg/actuation inhaler Commonly known as: VENTOLIN HFA Inhale 2 Puffs as instructed every 4 hours as needed for wheezing/shortness of breath. budesonide-formoterol 160-4.5 mcg/actuation inhaler Commonly known as: SYMBICORT Inhale 2 Puffs as instructed two times a day. CALTRATE PLUS ORAL CETAPHIL MOISTURIZING lotion Generic drug: vit N-gtouvzko-dbawyrsojbc apply twice daily clonazePAM 1 mg tablet Commonly known as: KlonoPIN Take 1 tablet by mouth two times a day for 90 days. Patient should start on October 28, 2024. estradiol 0.5 mg tablet Commonly known as: ESTRACE Take 1 tablet by mouth once daily. fexofenadine 180 mg tablet Commonly known as: NAN Take 1 tablet by mouth once daily. fluticasone 50 mcg/actuation nasal spray Commonly known as: FLONASE Use 1 Meraux in each nostril twice daily. VIA SPACER THEN RINSE AND GARGLE MOUTH WITH WATER. GEMTESA 75 mg tablet Generic drug: vibegron imipramine HCl 50 mg tablet Commonly known as: TOFRANIL Take 1 tablet by mouth daily at bedtime. IMODIUM ORAL ipratropium 0.02 % nebulizer solution Commonly known as: ATROVENT Use 2.5 mL via nebulizer four times daily as needed for wheezing/shortness of breath. lansoprazole 30 mg capsule Commonly known as: PREVACID Take 1 capsule by mouth once daily. montelukast 10 mg tablet Commonly known as: SINGULAIR Take 1 tablet by mouth daily at bedtime. mupirocin 2 % ointment Commonly known as: BACTROBAN Apply to affected area once daily. Nebulizer Accessories Kit 1 Kit as needed. nystatin 100,000 unit/mL suspension Commonly known as: MYCOSTATIN Take 5 mL by mouth four times daily. 1tsp swish in mouth for several minutes, then swallow (or expectorate) 4 times daily until gone. simvastatin 40 mg tablet Commonly known as: ZOCOR Take 1 tablet by mouth daily at bedtime. sucralfate 1 gram tablet Commonly known as: CARAFATE Take 1 tablet by mouth before meals and at bedtime. * This list has 2 medication(s) that are the same as other medications prescribed for you. Read thedirections carefully, and ask your doctor or other care provider to review them with you. DATA: I personally reviewed and analyzed all labs, radiographs and available pulmonary function testing Oral Exhaled Nitric Oxide measurement (Previous Encounters) Test Date Oral Exhaled Nitric Oxide (ppb) 11/17/2024 134.0 (A) 06/18/2024 52.0 (A) 03/24/2024 114.0 (A) 01/17/2024 88.0 (A) 12/03/2022 49.0 (A) 06/04/2022 95.0 (A) 08/17/2021 109.0 (A) 12/21/2019 216.0 (A) NAME: Ofe Ruff [facility] PATIENT NAME: Chey Jeffers DATE: November 17, 2024 TIME: 1:29 PM PFT: 05/2022 PRE-BRONCH POST-BRONCH Pre LLN Pred ULN %Pred Post %Pred %Chg SPIROMETRY FVC (L) 3.02 2.04 2.70 3.39 111 FEV1 (L) 1.85 1.61 2.14 2.65 86 FEV1/FVC 0.61 0.67 0.80 0.90 76 PEF L/s (L/sec) 5.21 4.11 5.62 7.12 92 FEF50 (L/sec) 1.03 1.37 2.98 4.59 34 FIF50 (L/sec) 4.05 FEF50/FIF50 0.25 90-100 FIVC (L) 2.84 SBG70-06 (L/sec) 0.72 1.02 2.02 3.37 35 Time (sec) 12.65 FET PEF (sec) 0.07 EUNICE (L) 0.08 Vol Extrap % (%) 3 Spirometry shows a reduced FEV1/FVC ratio; but individually normal FVC and FEV1 predicted values.This pattern indicates mild obstruction or a normal variant. Flow volume loop show obstructive pattern in small airways. Review of Systems Constitutional: Negative for activity change, appetite change, fever and unexpected weight change. HENT: Positive for congestion, postnasal drip, sinus pain and sneezing. Negative for mouth sores. Respiratory: Positive for cough, shortness of breath and wheezing. Negative for chest tightness. Cardiovascular: Negative for chest pain, palpitations and leg swelling. Musculoskeletal: Positive for arthralgias. Allergic/Immunologic: Negative for environmental allergies. Neurological: Negative for dizziness and weakness. Psychiatric/Behavioral: Depressed and anxious BP 119/50 (BP Site: Left Arm, BP Position: Sitting, BP Cuff Size: Regular Adult) Pulse 110 Resp20 Wt 69.2 kg (152 lb 9.6 oz) SpO2 92% BMI 29.80 kg/m Physical Exam Vitals reviewed. Constitutional: General: She is not in acute distress. Appearance: She is not ill-appearing. HENT: Head: Normocephalic. Mouth/Throat: Mouth: Mucous membranes are moist. Pharynx: No oropharyngeal exudate. Cardiovascular: Rate and Rhythm: Normal rate and regular rhythm. Heart sounds: Normal heart sounds. Pulmonary: Effort: Pulmonary effort is normal. No respiratory distress. Breath sounds: Wheezing present. No rhonchi. Musculoskeletal: Right lower leg: No edema. Left lower leg: Left lower leg edema: compression sock and walking shoe. Lymphadenopathy: Cervical: No cervical adenopathy. Skin: General: Skin is warm and dry. Capillary Refill: Capillary refill takes less than 2 seconds. Neurological: General: No focal deficit present. Mental Status: She is alert. Psychiatric: Comments: tearful ASSESSMENT/PLAN: 1. Severe persistent asthma without complication (HCC) - ICD9: 493.90, ICD10: J45.50 (primary diagnosis) - uncontrolled symptoms in the setting of acute sinusitis. - Nitric oxide elevated at 134 ppb today. Has been frequently missing doses of Symbicort. - had discussion with patient today regarding ongoing symptoms and persistently elevated nitric oxide. Continues to decline biologic therapy. She is not interested in giving herself an injection. - encouraged regular use of Symbicort, recommended setting an alarm for reminder. - Continue Albuterol as needed and Singulair. - Asthma education: Reviewed asthma signs, symptoms and monitoring and Rinsing after each inhaled steroid use - NITRIC OXIDE, EXHALED 2. Acute recurrent sinusitis, unspecified location - ICD9: 461.9, ICD10: J01.91 - currently being managed with ENT, just recently completed course of Levaquin. - will be seen by the wound clinic tomorrow and ask about taking Prednisone. Plans to update ENT regarding ongoing symptoms. - Supportive care with plenty of fluids, rest, and analgesia prn. 3. Multiple allergies - ICD9: V15.09, ICD10: Z88.9 - compliant with Singulair, OTC antihistamine and Flonase, follows with marie ENT F/u 3 months Portions of this documentation were copied and pasted from previous office visit notes in order to provide a cohesive continuity of the history. The note has been reviewed and edited and updated as necessary. Ana Cristina Urbina APRN.CNP I spent a total of 38 minutes on the date of the service which included preparing to see the patient, [id number] patient care, completing clinical documentation, performing a medically appropriate examination, counseling and educating the patient/family/caregiver, ordering medications, tests, or p rocedures, and communicating results to the patient/family/caregiver. documented in this encounter[facility]25 NoteHNO ID: [id number] Author: ANA CRISTINA URBINA APRN.CNP Service: ? Author Type: Nurse Practitioner Type: Progress Notes Filed: 11/17/2024 20:13 Note Text: Pulmonary Medicine Patients name: Chey Jeffers PCP: Edda Oconnor MD CC: follow-up HPI: Chey Jeffers is a 63 year old female non-smoker with PMH significant for ankylosing spondylitis, depression, GERD, nasal polyps, recurrent sinusitis and asthma. NELSY 06/2024 with improved but persistently elevated nitric oxide. Biologic therapy discussed but patient reluctant. Current therapy with Symbicort and albuterol. Uses Singulair and OTC antihistamines for multiple allergies. She presents today for follow-up. Since her last visit, she has been experiencing multiple health problems. 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 She suffered a fall recently, requiring 21 sutures in her leg. Has been following with the wound center as it has been slow to heal. Additionally, she reports having a sinus infection for nearly 2 months. Follows with ENT and prescribed Levaquin. Not able to take Medrol d/t wound on her leg but reports that would help it clear up. Today, she states she has been sneezing frequently which causes wheezing. Having a lot of sinus congestion with PND which attributes to cough, occasionally produces yellow sputum. Will have some shortness of breath with exertion. Nitric oxide today 134 ppb. Has been forgetting to take Symbicort regularly with her grief. Doesn't typically need Albuterol, has used 3x in the past 2 weeks. PAST MEDICAL HISTORY Diagnosis Date Abnormal ultrasound of breast 06/17/2013 Acute gastritis Ankylosing spondylitis (HCC) Anxiety and depression 06/12/2005 Asthma (HCC) Bilateral renal cysts 03/11/2015 Calculus of kidney Dysthymic disorder Depression (non-psychotic) Enterocolitis due to Clostridium difficile 01/12/2015 Esophageal reflux HNP (herniated nucleus pulposus), lumbar 08/22/2011 Intrinsic asthma, unspecified 08/05/2008 Irritable bowel syndrome Irritable bowel FCI 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 01/16/2017 Menopause syndrome 01/19/2005 Myalgia and myositis, unspecified Nasal polyposis Polypectomy 03/2017 Dr. Mazariegos [facility]. Pure hypercholesterolemia Serrated adenoma of colon 07/29/2014 Symptomatic menopausal or female climacteric states Unspecified sinusitis (chronic) 06/21/2008 Allergies: Amoxicillin Rash Comment:Rash a few days into a course of treatment. Noted that had not reacted to test dose penicillin but developed rash after a few days on amoxicillin. Aspirin [Salicylate* Swelling, Shortness of Breath Comment:wheezing,swelling lips,rash,hives Codeine Hives Vicodin [Hydrocodon* Hives Cefdinir Itching Comment:Itchy scaly rash. (Patient may take penicillin and other penicillin type antibiotics. See allergy visit on 01/08/23) Demerol [Meperidine* Rash Tylenol [Acetaminop* Intolerance, Shortness of Breath Comment:asthma; makes it hard for her to breathe Ambien [Zolpidem] Intolerance Comment:Was sleepwalking (arranging books but hull not recall) Bactrim [Sulfametho* Comment:uncertain Budesonide Rash Celexa [Citalopram * GI Upset Doxy [Doxycycline] Comment:rash and asthma Durezol [Diflupredn* Rash Ibuprofen Shortness of Breath Keflex [Cephalexin] Intolerance Lexapro [Escitalopr* GI Upset Lyrica [Pregabalin] Mental Status Change Comment:dizzy Macrobid [Nitrofura* Diarrhea Maprotiline Itching Monurol [Fosfomycin] Diarrhea Mucomyst [Acetylcys* Cough Comment:increase wheezing Oxycodone Shortness of Breath Penicillins Hives Comment:Allergy skin tests to penicillin were negative. The patient took a test dose of amoxicillin and tolerated this without adverse reaction. The patient is at low risk for a severe, immediate, IgE-mediated reaction to penicillin, amoxicillin and other penicillin-type antibiotics. Skin tests are unreliable for predicting delayed reactions. Toradol [Ketorolac * Swelling Ultram [Tramadol Hc* Other: See Comments Comment:chest pains Vancomycin Other: See Comments Comment:Wheezing after taking, legs swollen and tongue swelling and scratchy neck Venlafaxine GI Upset Zithromax [Azithrom* Itching Mirtazapine Other: See Comments Comment:Hand shakes. Medication List Accurate as of November 16, 2024 1:43 PM. If you have any questions, ask your nurse or doctor. CONTINUE taking these medications * Albuterol Sulfate 1.25 mg/3 mL nebulizer solution Use 1 Ampule via nebulizer every 6 hours as needed for wheezing/shortness of breath. * albuterol HFA 90 mcg/actuation inhaler Commonly known as: VENTOLIN HFA Inhale 2 Puffs as instructed every 4 hours as needed for wheezing/shortness of breath. budesonide-formoterol 160-4.5 mcg/actuation inhaler Commonly known as: SYMBICORT Inhale 2 Puffs as instructed (more content not included)...[facility]07-15-2025 NoteHNO ID: [id number] Author: OFE RUFF RPFT Service: ? Author Type: Respiratory Therapist Type: Procedures Filed: 11/17/2024 13:34 Note Text: RESPIRATORY THERAPY ORAL EXHALED NITRIC OXIDE SERVICE DATE: 11/17/2024 SERVICE TIME: 1:29 PM Oral Exhaled Nitric Oxide measurement: 134.0 (ppb) (A) Normal: Adult <25 ppb, pediatric (<12 years) <20 ppb High Normal / Increased: Adult 25-50 ppb, pediatric (<12 years) 20-35 ppb Moderately raised exhaled Nitric Oxide may indicate underlying inflammation, but note that: Cold and influenza can raise exhaled Nitric Oxide and some patients have higher baseline exhaled Nitric Oxide levels than others. High: Adult >50 ppb, pediatric (<12 years) >35 ppb Indicative of ongoing eosinophilic inflammation. Symptomatic patient likely to respond to steroids. Possible causes (if already on steroids): Poor compliance, recent allergen exposure, steroid dose inadequate, and steroid resistance. Note that not all patients with high exhaled nitric oxide levels display symptoms. Oral Exhaled Nitric Oxide measurement (Previous Encounters) Test Date Oral Exhaled Nitric Oxide (ppb) 11/17/2024 134.0 (A) 06/18/2024 52.0 (A) 03/24/2024 114.0 (A) 01/17/2024 88.0 (A) 12/03/2022 49.0 (A) 06/04/2022 95.0 (A) 08/17/2021 109.0 (A) 12/21/2019 216.0 (A) NAME: LA Goddard PATIENT NAME: Chey Jeffers DATE: November 17, 2024 TIME: 1:29 [facility]07-15-2025 Procedure note* Ofe Ruff RPFT - 11/17/2024 1:29 PM EDTAssociated Order(s): NITRIC OXIDE, EXHALED RESPIRATORY THERAPY ORAL EXHALED NITRIC OXIDE SERVICE DATE: 11/17/2024 SERVICE TIME: 1:29 PM Oral Exhaled Nitric Oxide measurement: 134.0 (ppb) (A) Normal: Adult <25 ppb, pediatric (<12 years) <20 ppb High Normal / Increased: Adult 25-50 ppb, pediatric (<12 years) 20-35 ppb Moderately raised exhaled Nitric Oxide may indicate underlying inflammation, but note that: Cold and influenza can raise exhaled Nitric Oxide and some patients have higher baseline exhaled Nitric Oxide levels than others. High: Adult >50 ppb, pediatric (<12 years) >35 ppb Indicative of ongoing eosinophilic inflammation. Symptomatic patient likely to respond to steroids. Possible causes (if already on steroids): Poor compliance, recent allergen exposure, steroid dose inadequate, and steroid resistance. Note that not all patients with high exhaled nitric oxide levels display symptoms. Oral Exhaled Nitric Oxide measurement (Previous Encounters) Test Date Oral Exhaled Nitric Oxide (ppb) 11/17/2024 134.0 (A) 06/18/2024 52.0 (A) 03/24/2024 114.0 (A) 01/17/2024 88.0 (A) 12/03/2022 49.0 (A) 06/04/2022 95.0 (A) 08/17/2021 109.0 (A) 12/21/2019 216.0 (A) NAME: Ofe PetLA fish PATIENT NAME: Chey Jeffers DATE: November 17, 2024 TIME: 1:29 PM [facility]07-15-[facility] Procedure note* Ofe Ruff RPFT - 11/17/2024 1:29 PM EDTAssociated Order(s): NITRIC OXIDE, EXHALED RESPIRATORY THERAPY ORAL EXHALED NITRIC OXIDE SERVICE DATE: 11/17/2024 SERVICE TIME: 1:29 PM Oral Exhaled Nitric Oxide measurement: 134.0 (ppb) (A) Normal: Adult <25 ppb, pediatric (<12 years) <20 ppb High Normal / Increased: Adult 25-50 ppb, pediatric (<12 years) 20-35 ppb Moderately raised exhaled Nitric Oxide may indicate underlying inflammation, but note that: Cold and influenza can raise exhaled Nitric Oxide and some patients have higher baseline exhaled Nitric Oxide levels than others. High: Adult >50 ppb, pediatric (<12 years) >35 ppb Indicative of ongoing eosinophilic inflammation. Symptomatic patient likely to respond to steroids. Possible causes (if already on steroids): Poor compliance, recent allergen exposure, steroid dose inadequate, and steroid resistance. Note that not all patients with high exhaled nitric oxide levels display symptoms. Oral Exhaled Nitric Oxide measurement (Previous Encounters) Test Date Oral Exhaled Nitric Oxide (ppb) 11/17/2024 134.0 (A) 06/18/2024 52.0 (A) 03/24/2024 114.0 (A) 01/17/2024 88.0 (A) 12/03/2022 49.0 (A) 06/04/2022 95.0 (A) 08/17/2021 109.0 (A) 12/21/2019 216.0 (A) NAME: LA Goddard PATIENT NAME: Chey Jeffers DATE: November 17, 2024 TIME: 1:29 PM documented in this encounterW[facility]07-09-2025 History and physical note Author Magdalena Whaley [facility] Note Date/Time November 11, 2024 12:33 pm [facility] [address] [place] [id number] H&P Exam - Wound Care 11/11/24 1217 MR#: [id number] Acct: [id number] Name: CHEY JEFFERS Rep #:[id number] : 1960 63 From: Magdalena Whaley NP [employer] PCP: Dr. Edda Oconnor MD Status:RE G RCR Location: History of Present Illness Date of Service: 11/11/24 Chief Complaint: Left lower walls from a fall on some wooden steps outside her house seen in the emergency room on October 22 History of Wound: 63-year-old white female that had sutures put in the dehisced and now she has a well-approximated wound but it has a lot of blackened scabs and peeling skin. [facility] Medical History History of stress test History of deviated nasal septum Wears dentures History of steroid therapy Arthritis Bladder disease High cholesterol History of IBS Non-smoker Shortness of breath on exertion COPD (chronic obstructive pulmonary disease) Asthma Migraine Degenerative disc disease Fibromyalgia Depression Anxiety Home Medications ?Medication ?Instructions ?Recorded ?Last Taken ?Type albuterol sulfate 90 mcg/actuation 1 - 2 puff IH Q4H P RN PRN Asthma 07/09/14 04/07/18 08:00 History aerosol inhaler (Ventolin HFA) clonazepam 0.5 mg tablet 0.5 mg PO BID ANXIETY 09/21/24 History fluticasone propionate 50 1 spray DAILY PRN PRN Allerg ies 07/09/14 Unknown History mcg/actuation nasal spray,suspension lansoprazole 30 mg capsule,delayed 30 mg PO DAILY , 09/21/24 History release (Prevacid) simvastatin 40 mg tablet 40 mg PO QHS CHOLESTEROL 10/1809/20/24 History loperamide 2 mg capsule 2 mg PO Q6H PRN PRN Diarrhea ##20 07/22/14 08/09/16 Rx fexofenadine 180 mg tablet 180 mg PO QHS . 03/26/17 History (Nan Allergy) imipramine HCl 50 mg tablet 50 mg PO QHS depression 09/20/24 History budesonide-formoterol HFA 160 2 puff inhalation BID 09/21/24 History mcg-4.5 mcg/actuation aerosol inhaler (Symbicort) calcium 200 mg (as 1 ea PO DAILY 04/04/1809/20 History citrate)-vitamin D3 6.25 mcg (250 unit) tablet (Citracal-D3 Petites) ipratropium 0.5 mg-albuterol 3 mg 3 ml inhalation Q4H PRN BREATHING 04/04/18 Unknown History (2.5 mg base)/3 mL nebulization soln sucralfate 1 gram tablet 1 g PO BID 04/04/18 09/21/24 History montelukast 10 mg tablet 10 mg PO DAILY 02/06/2209/03 History (Singulair) vibegron 75 mg tablet (Gemtesa) 75 mg PO DAILY 5 09/21/24 History fesoterodine 4 mg tablet,extended 4 mg PO DAILY 09/21/24 History release 24 hr Allergy/AdvReac Type Severity Reaction Status Date / Time aspirin Allergy Severe Anaphylaxis Verified 11/11/24 08:39 acetaminophen (From Vicodin) Allergy MAKES MY Verified 11/11/24 08:39 CHEST HURT azithromycin (From Zithromax) Allergy Itching Verified 11/11/24 08:39 budesonide Allergy Rash Verified 11/11/24 08:39 ciprofloxacin (From Cipro) Allergy Hives Verified 11/11/24 08:39 codeine Allergy Hives Verified 11/11/24 08:39 difluprednate (From Durezol) Allergy Rash Verified 11/11/24 08:39 doxycycline Allergy Rash Verified 11/11/24 08:39 hydrocodone bitartrate (From Allergy Hives Verified 11/11/24 08:39 Vicodin) ibuprofen (From Motrin) Allergy Shortness Verified 11/11/24 08:39 of breath ketorolac tromethamine (From Allergy Swelling Verified 11/11/24 08:39 Toradol) maprotiline Allergy Itching Verified 11/11/24 08:39 meperidine HCl (From Demerol) Allergy Rash Verified 11/11/24 08:39 mirtazapine Allergy Other Verified 11/11/24 08:39 Penicillins Allergy Rash Verified 11/11/24 08:39 prednisone Allergy Itching Verified 11/11/24 08:39 tramadol HCl (From Ultram) Allergy Chest Verified 11/11/24 08:39 tightness vancomycin Allergy Swelling Verified 11/11/24 08:39 acetylcysteine (From AdvReac ITCHING, Verified 11/11/24 08:39 Mucomyst) REDNESS citalopram hydrobromide AdvReac Nausea/Vom/ Verified 11/11/24 08:39 (From Celexa) Diarrhea escitalopram oxalate (From AdvReac Nausea/Vom/ Verified 11/11/24 08:39 Lexapro) Diarrhea nitrofurantoin (From AdvReac Diarrhea Verified 11/11/24 08:39 Macrobid) nitrofurantoin AdvReac Diarrhea Verified 11/11/24 08:39 macrocrystalline (From Macrobid) oxycodone AdvReac Hives Verified 11/11/24 08:39 pregabalin (From Lyrica) AdvReac Swelling Verified 11/11/24 08:39 sulfamethoxazole (From AdvReac Other Verified 11/11/24 08:39 Bactrim) trimethoprim (From Bactrim) AdvReac Unknown Verified 11/11/24 08:39 venlafaxine HCl (From AdvReac Nausea/Vom/ Verified 11/11/24 08:39 Effexor) Diarrhea Surgical History History of hysterectomy History of cholecystectomy History of nasal surgery Social History Smoking Status: Never smoker ROS Constitutional Constitutional: Reports systems reviewed and no addt'l complaints, except as documented Eyes Eyes: Reports systems reviewed and no addt'l complaints, except as documented ENT HEENT: Reports systems reviewed and no addt'l complaints, except as documented Cardiovascular Cardiovascular: Reports systems reviewed and no addt'l complaints, except as documented Respiratory/Chest Respiratory/Chest: Reports systems reviewed and no addt'l complaints, except as documented Gastrointestinal Gastrointestinal: Reports systems reviewed and no addt'l complaints, except as documented Genitourinary Genitourinary: Reports systems reviewed and no addt'l complaints, except as documented Musculoskeletal Musculoskeletal: Reports systems reviewed and no addt'l complaints, except as documented Integumentary Integumentary: Reports wounds and other Details: Open wound left walls old scabbing and dry skin on top of up will partially approximated wound Neurologic Neurologic: Reports systems reviewed and no addt'l complaints, except as documented Psychiatric Psychiatric: Reports systems reviewed and no addt'l complaints, except as documented Endocrine Endocrinology: Reports systems reviewed and no addt'l complaints, except as documented Hematologic/Lymphatic Hematologic/Lymphatic: Reports systems reviewed and no addt'l complaints, exceptas documented Allergic/Immunologic Allergic/Immunologic: Reports systems reviewed and no addt'l complaints, except as documented Vital Signs Vital Signs Vital Signs: 11/11/24 08:21 Temperature 97.7 F L Temperature Source Temporal Pulse Rate 106 H Respiratory Rate 18 Blood Pressure 153/80 H Blood Pressure Mean 104 Blood Pressure Source Monitor Physical Exam Const oriented x3 General Appearance: cooperative Exam Limitations: no limitations HEENT normocephalic Face and Sinus: normal facial exam External Ear: external ears normal Eyes General Eye: normal appearance of both eyes Neck full ROM General: normal visual inspection Resp normal respiratory effort Effort and Inspection: able to speak in complete sentences Auscultation: clear to auscultation bilaterally Cardio regular rate and regular rhythm Palpation: normal PMI Rate: regular rate Rhythm: regular rhythm GI Palpation: no hepatosplenomegaly Back/Spine Cervical Spine: cervical ROM normal Thoracic Spine / Upper Back: normal to inspection Lumbar Spine / Lower Back: normal to inspection Extremity General Extremity: normal exam except as noted, edema and other findings Other Details: Wound on the left walls Skin Wounds: wounds noted Wound Narrative: Left walls well scabbed not healed Neuro oriented x3 Psych Appearance: grossly normal Speech: normal speech Thought Content: normal thought content Judgement: judgement good Debridement Note Debridement Note Wound debrided: Traumatic left walls wound Type of Debridement: Excisional debridement Anesthesia Used: 5% Lidocaine Gel Depth: Down to and including healthy tissue and in the subcutaneous layer Percentage of wound debrided: 100 Instrument Used: 7mm curette Tissue Removed: Devitalized tissue and fibrin Severity: Fat Layer Exposed Amount of bleeding with debridement: Mild Bleeding Controlled with: Compression and gauze Patient tolerated procedure: Patient tolerated procedure well Post-Debridement Measurements and Additional Note: Post-Debridement Measurements/Treatment - Nurse 1 - General Ulcer Assessment Start: 11/11/24 08:20 Freq: Status: Active Protocol: LEX Activity Type Activity Date Activity User E-sign Co-sign Detail Recorded Client Recorded Date Recorded By Document 11/11/24 08:21 DL [id number] 11/11/24 08:37 DL 11/11/24 08:21 - Today's Visit Information Type of service Initial Visit Arrival Mode Ambulatory Vital Signs Temperature (97.8 F-99.1 F) 97.7 F L Temperature Source Temporal Pulse Rate (60-100) 106 H Pulse Location Monitor Respiratory Rate (12-18) 18 Respiratory rate source Observation Blood Pressure (90/60-120/80) 153/80 H Blood Pressure Mean 104 Source Monitor Pain Scale: 0-10 Numeric Is Patient Pain Free? Yes Lower Extremity Assessment/ Foot Assessment/ Toe Nail Assessment Left -Posterior Tibial Palpable No -Dorsalis Pedis Palpable No -Extremity Color Normal -Hair Growth on Legs No -Hair Growth on Toes No -Temperature of Extremity Warm -Capillary Refill Less than 3 Seconds -Dependent Rubor No -Blanched when Elevated No -Lipodermatosclerosis No -Other Deformity No -Prior Foot Ulcer No -Charcot Joint No -Prior Amputation No -Thick Yes -Discolored Yes -Deformed No -Improper Length & Hygeine No Right -Posterior Tibial Palpable Yes -Dorsalis Pedis Palpable Yes -Extremity Color Normal -Hair Growth on Legs Yes -Hair Growth on Toes Yes -Temperature of Extremity Warm -Capillary Refill Less than 3 Seconds -Dependent Rubor No -Blanched when Elevated No -Lipodermatosclerosis No -Other Deformity No -Prior Foot Ulcer No -Charcot Joint No -Prior Amputation No -Thick Yes -Discolored Yes -Deformed No -Improper Length & Hygeine No Neuropathy Assessment Feet - Top Side and Bottom <Entered> (a) Communication Assessment Preferred language [place]arag[place] Able to Read Yes Able to Write Yes Communication Tools None Right Hearing Abillity Normal Left Hearing Abillity Normal Visual Assistive Devices None Teaching Assessment Preferences Verbal,Written Barriers to Learning None Readiness To Learn Good Willingness to Engage in Self Management Med Activies Readiness to Engage in Self Management Med Activities Anxiety Level Calm Cooperation Cooperative Perception Coherent Interest in Health Problem Asks Questions Education Importance Acknowledges Need Does Patient Smoke tobacco or other No substances Smoking Status Never smoker Is Patient Diabetic No Functional Assessment Recent Decline in Ability to Perform Denies Any Declines Teaching: Wound Center Dressing Your Wound -Person Taught Patient *Wound/Skin Impairment -Person Taught Patient (a) 1 - + WC - Nurse 1 - General Ulcer Measurement Start: 11/11/24 08:20 Freq: Status: Active Protocol: Activity Type Activity Date Activity User E-sign Co-sign Detail Recorded Client Recorded Date Recorded By Document 11/11/24 08:21 DL [id number] 11/11/24 08:37 DL 11/11/24 08:21 Wound Center Nurse 1 #2 L Walls -Current Size (cm) - Length 0.1 -Current Size (cm) - Width 0.1 -Current Size (cm) - Depth 0.1 -Total Square Cm 0.01 -Photo Taken Yes -Exudate Amt Small -Exudate Type Serosanguineous -Wound Margin Distinct, Outline Attached -Granulation Amt None Present (0 %) -Necrosis Amt Small (1-33%) -Necrotic Tissue Type Adherent Slough -Structure Exposed N/A -Texture (Adry-wound Skin Appearance) Localized Edema ,Scarring -Moisture (Adry-wound Skin Appearance) No Abnormality -Color (Adry-wound Skin Appearance) No Abnormality -Temperature (Adry-wound Skin No Abnormality Appearance) (Pt Warm) -Tenderness on Palpation (Adry-wound No Skin Appearance) -Ulcer Cleansing Soap and Water -Foul Odor after Cleansing No -Anesthetic Used 4% Lidocaine Solution Right Calf (cm) 30 Right Ankle (cm) 18.5 Left Calf (cm) 33 Left Ankle (cm) 21 WC - Nurse 2 - General Ulcer CM Notes Start: 11/11/24 08:20 Freq: Status: Active Protocol: Activity Type Activity Date Activity User E-sign Co-sign Detail Recorded Client Recorded Date Recorded By Document 11/11/24 09:10 [facility] [id number] 11/11/24 09:27 [facility] 11/11/24 09:10 Wound Center Nurse 2 #2 L Walls -Time 09:10 -Correct Patient Yes -Correct Side, Site, Position Yes -Correct Procedure Yes -Procedure Performed Yes -Type of Procedure Debridement -Clinical Debridement Subcutaneous -Tissue Removed Subcutaneous -Post Debridement (cm) - Length 9.4 -Post Debridement (cm) - Width 3.5 -Post Debridement (cm) - Depth 0.2 -Total Square (Post) (cm) 32.90 -Area of Debridement (cm) - Length 9.4 -Area of Debridement (cm) - Width 3.5 -Total Square (Area) (cm) 32.90 -Tunneling No -Undermining/Tunneling No -Circular Undermining No -Wound/Ulcer Outcome Not Healed -Ulcer Cleansing Rinsed/ Irrigated with Saline -Foul Odor after Cleansing No -Bioengineered Tissue No -Bleeding Controlled with Pressure -Treatment Response Procedure Tolerated Well -Debridement - Subq, 1st 20sq cm Yes -Debridement, SubQ, ea addt'l 20sq cm 1 or part thereof Pain Scale: 0-10 Numeric Is Patient Pain Free? Yes - Nurse 3 - General Ulcer D/C NN Start: 11/11/24 08:20 Freq: Status: Active Protocol: Activity Type Activity Date Activity User E-sign Co-sign Detail Recorded Client Recorded Date Recorded By Document 11/11/24 09:41 JUAN [id number] 11/11/24 09:42 DL 11/11/24 09:41 Wound Care Center Nurse 3 #2 L Walls -Ulcer Cleansing Rinsed/ Irrigated with Saline -Foul Odor after Cleansing No -Primary Dressing Applied NonAdherent Contact Layer -Other Dressing Xerofrom -Primary Dressing Covered/Secured with Dry Gauze & Roll Gauze, Secured with Tape -Other Covering ABD LLE -Tubular Bandage Double Layer -Size of Tubigrip Used Size E -Size E ($) 2 Treatment Response Procedure Tolerated Well Pain Scale: 0-10 Numeric Is Patient Pain Free? Yes - Visit Discharge Discharge Condition Stable Ambulatory Status Ambulatory Transportation Private Auto Assessment/Plan Assessment/Plan (1) Nonhealing surgical wound: CODE(S): T81.89XA - Other complications of procedures, 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ssified, initial encounter QUALIFIERS: Encounter type: initial encounter Qualified Code(s): T81.89XA - Other complications of procedures, 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ssified, initial encounter PLAN: Wash left leg with Hibiclens or with antibacterial soap and water and apply Xeroform Adaptic gauze ABD and Stacey to left leg with a double layer Tubigrip over top this is to be done daily. (2) Infected wound: CODE(S): T14.8XXA - Other injury of unspecified body region, initial encounter; L08.9 - Local infection of the skin and subcutaneous tissue, unspecified PLAN: Wound culture obtained will call with results (3) Traumatic ulcer of left lower leg: CODE(S): L97.929 - Non-pressure chronic ulcer of unspecified part of left lower leg with unspecified severity QUALIFIERS: Non-pressure ulcer stage: with fat layer exposed Qualified Code(s): L97.922 - Non-pressure chronic ulcer of unspecified part of left lower leg with fat layer exposed 11/11/24 1233 <Electronically signed by Magdalena Whaley NP [employer]> Cosigner Signature (if applicable): CC: ~ Signed [facility] Work Phone: 1(483) 469-842107-09-[address] [facility] [address] [place] [address] H&P Exam - Wound Care 11/11/24 1217 MR#: [id number] Acct: [id number] Name: CHEY JEFFERS Rep #:[id number] : 1960 63 From: Magdalena Whaley NP [employer] PCP: Dr. Edda Oconnor MD Status:RE G RCR Location: History of Present Illness Date of Service: 11/11/24 Chief Complaint: Left lower walls from a fall on some wooden steps outside her house seen in the emergency room on October 22 History of Wound: 63-year-old white female that had sutures put in the dehisced and now she has a well-approximated wound but it has a lot of blackened scabs and peeling skin. [facility] Medical History History of stress test History of deviated nasal septum Wears dentures History of steroid therapy Arthritis Bladder disease High cholesterol History of IBS Non-smoker Shortness of breath on exertion COPD (chronic obstructive pulmonary disease) Asthma Migraine Degenerative disc disease Fibromyalgia Depression Anxiety Home Medications ?Medication ?Instructions ?Recorded ?Last Taken ?Type albuterol sulfate 90 mcg/actuation 1 - 2 puff IH Q4H P RN PRN Asthma 07/09/14 04/07/18 08:00 History aerosol inhaler (Ventolin HFA) clonazepam 0.5 mg tablet 0.5 mg PO BID ANXIETY 09/21/24 History fluticasone propionate 50 1 spray DAILY PRN PRN Allerg ies 07/09/14 Unknown History mcg/actuation nasal spray,suspension lansoprazole 30 mg capsule,delayed 30 mg PO DAILY , 09/21/24 History release (Prevacid) simvastatin 40 mg tablet 40 mg PO QHS CHOLESTEROL 10/1809/20/24 History loperamide 2 mg capsule 2 mg PO Q6H PRN PRN Diarrhea ##20 07/22/14 08/09/16 Rx fexofenadine 180 mg tablet 180 mg PO QHS . 03/26/17 History (Nan Allergy) imipramine HCl 50 mg tablet 50 mg PO QHS depression 09/20/24 History budesonide-formoterol HFA 160 2 puff inhalation BID 09/21/24 History mcg-4.5 mcg/actuation aerosol inhaler (Symbicort) calcium 200 mg (as 1 ea PO DAILY 04/04/1809/20 History citrate)-vitamin D3 6.25 mcg (250 unit) tablet (Citracal-D3 Petites) ipratropium 0.5 mg-albuterol 3 mg 3 ml inhalation Q4H PRN BREATHING 04/04/18 Unknown History (2.5 mg base)/3 mL nebulization soln sucralfate 1 gram tablet 1 g PO BID 04/04/18 09/21/24 History montelukast 10 mg tablet 10 mg PO DAILY 02/06/2209/03 History (Singulair) vibegron 75 mg tablet (Gemtesa) 75 mg PO DAILY 5 09/21/24 History fesoterodine 4 mg tablet,extended 4 mg PO DAILY 09/21/24 History release 24 hr Allergy/AdvReac Type Severity Reaction Status Date / Time aspirin Allergy Severe Anaphylaxis Verified 11/11/24 08:39 acetaminophen (From Vicodin) Allergy MAKES MY Verified 11/11/24 08:39 CHEST HURT azithromycin (From Zithromax) Allergy Itching Verified 11/11/24 08:39 budesonide Allergy Rash Verified 11/11/24 08:39 ciprofloxacin (From Cipro) Allergy Hives Verified 11/11/24 08:39 codeine Allergy Hives Verified 11/11/24 08:39 difluprednate (From Durezol) Allergy Rash Verified 11/11/24 08:39 doxycycline Allergy Rash Verified 11/11/24 08:39 hydrocodone bitartrate (From Allergy Hives Verified 11/11/24 08:39 Vicodin) ibuprofen (From Motrin) Allergy Shortness Verified 11/11/24 08:39 of breath ketorolac tromethamine (From Allergy Swelling Verified 11/11/24 08:39 Toradol) maprotiline Allergy Itching Verified 11/11/24 08:39 meperidine HCl (From Demerol) Allergy Rash Verified 11/11/24 08:39 mirtazapine Allergy Other Verified 11/11/24 08:39 Penicillins Allergy Rash Verified 11/11/24 08:39 prednisone Allergy Itching Verified 11/11/24 08:39 tramadol HCl (From Ultram) Allergy Chest Verified 11/11/24 08:39 tightness vancomycin Allergy Swelling Verified 11/11/24 08:39 acetylcysteine (From AdvReac ITCHING, Verified 11/11/24 08:39 Mucomyst) REDNESS citalopram hydrobromide AdvReac Nausea/Vom/ Verified 11/11/24 08:39 (From Celexa) Diarrhea escitalopram oxalate (From AdvReac Nausea/Vom/ Verified 11/11/24 08:39 Lexapro) Diarrhea nitrofurantoin (From AdvReac Diarrhea Verified 11/11/24 08:39 Macrobid) nitrofurantoin AdvReac Diarrhea Verified 11/11/24 08:39 macrocrystalline (From Macrobid) oxycodone AdvReac Hives Verified 11/11/24 08:39 pregabalin (From Lyrica) AdvReac Swelling Verified 11/11/24 08:39 sulfamethoxazole (From AdvReac Other Verified 11/11/24 08:39 Bactrim) trimethoprim (From Bactrim) AdvReac Unknown Verified 11/11/24 08:39 venlafaxine HCl (From AdvReac Nausea/Vom/ Verified 11/11/24 08:39 Effexor) Diarrhea Surgical History History of hysterectomy History of cholecystectomy History of nasal surgery Social History Smoking Status: Never smoker ROS Constitutional Constitutional: Reports systems reviewed and no addt'l complaints, except as documented Eyes Eyes: Reports systems reviewed and no addt'l complaints, except as documented ENT HEENT: Reports systems reviewed and no addt'l complaints, except as documented Cardiovascular Cardiovascular: Reports systems reviewed and no addt'l complaints, except as documented Respiratory/Chest Respiratory/Chest: Reports systems reviewed and no addt'l complaints, except as documented Gastrointestinal Gastrointestinal: Reports systems reviewed and no addt'l complaints, except as documented Genitourinary Genitourinary: Reports systems reviewed and no addt'l complaints, except as documented Musculoskeletal Musculoskeletal: Reports systems reviewed and no addt'l complaints, except as documented Integumentary Integumentary: Reports wounds and other Details: Open wound left walls old scabbing and dry skin on top of up will partially approximated wound Neurologic Neurologic: Reports systems reviewed and no addt'l complaints, except as documented Psychiatric Psychiatric: Reports systems reviewed and no addt'l complaints, except as documented Endocrine Endocrinology: Reports systems reviewed and no addt'l complaints, except as documented Hematologic/Lymphatic Hematologic/Lymphatic: Reports systems reviewed and no addt'l complaints, exceptas documented Allergic/Immunologic Allergic/Immunologic: Reports systems reviewed and no addt'l complaints, except as documented Vital Signs Vital Signs Vital Signs: 11/11/24 08:21 Temperature 97.7 F L Temperature Source Temporal Pulse Rate 106 H Respiratory Rate 18 Blood Pressure 153/80 H Blood Pressure Mean 104 Blood Pressure Source Monitor Physical Exam Const oriented x3 General Appearance: cooperative Exam Limitations: no limitations HEENT normocephalic Face and Sinus: normal facial exam External Ear: external ears normal Eyes General Eye: normal appearance of both eyes Neck full ROM General: normal visual inspection Resp normal respiratory effort Effort and Inspection: able to speak in complete sentences Auscultation: clear to auscultation bilaterally Cardio regular rate and regular rhythm Palpation: normal PMI Rate: regular rate Rhythm: regular rhythm GI Palpation: no hepatosplenomegaly Back/Spine Cervical Spine: cervical ROM normal Thoracic Spine / Upper Back: normal to inspection Lumbar Spine / Lower Back: normal to inspection Extremity General Extremity: normal exam except as noted, edema and other findings Other Details: Wound on the left walls Skin Wounds: wounds noted Wound Narrative: Left walls well scabbed not healed Neuro oriented x3 Psych Appearance: grossly normal Speech: normal speech Thought Content: normal thought content Judgement: judgement good Debridement Note Debridement Note Wound debrided: Traumatic left walls wound Type of Debridement: Excisional debridement Anesthesia Used: 5% Lidocaine Gel Depth: Down to and including healthy tissue and in the subcutaneous layer Percentage of wound debrided: 100 Instrument Used: 7mm curette Tissue Removed: Devitalized tissue and fibrin Severity: Fat Layer Exposed Amount of bleeding with debridement: Mild Bleeding Controlled with: Compression and gauze Patient tolerated procedure: Patient tolerated procedure well Post-Debridement Measurements and Additional Note: Post-Debridement Measurements/Treatment SLIM - Nurse 1 - General Ulcer Assessment Start: 11/11/24 08:20 Freq: Status: Active Protocol: LEX Activity Type Activity Date Activity User E-sign Co-sign Detail Recorded Client Recorded Date Recorded By Document 11/11/24 08:21 DL [id number] 11/11/24 08:37 DL 11/11/24 08:21 - Today's Visit Information Type of service Initial Visit Arrival Mode Ambulatory Vital Signs Temperature (97.8 F-99.1 F) 97.7 F L Temperature Source Temporal Pulse Rate (60-100) 106 H Pulse Location Monitor Respiratory Rate (12-18) 18 Respiratory rate source Observation Blood Pressure (90/60-120/80) 153/80 H Blood Pressure Mean 104 Source Monitor Pain Scale: 0-10 Numeric Is Patient Pain Free? Yes Lower Extremity Assessment/ Foot Assessment/ Toe Nail Assessment Left -Posterior Tibial Palpable No -Dorsalis Pedis Palpable No -Extremity Color Normal -Hair Growth on Legs No -Hair Growth on Toes No -Temperature of Extremity Warm -Capillary Refill Less than 3 Seconds -Dependent Rubor No -Blanched when Elevated No -Lipodermatosclerosis No -Other Deformity No -Prior Foot Ulcer No -Charcot Joint No -Prior Amputation No -Thick Yes -Discolored Yes -Deformed No -Improper Length & Hygeine No Right -Posterior Tibial Palpable Yes -Dorsalis Pedis Palpable Yes -Extremity Color Normal -Hair Growth on Legs Yes -Hair Growth on Toes Yes -Temperature of Extremity Warm -Capillary Refill Less than 3 Seconds -Dependent Rubor No -Blanched when Elevated No -Lipodermatosclerosis No -Other Deformity No -Prior Foot Ulcer No -Charcot Joint No -Prior Amputation No -Thick Yes -Discolored Yes -Deformed No -Improper Length & Hygeine No Neuropathy Assessment Feet - Top Side and Bottom (a) Communication Assessment Preferred language Nicaraguan Able to Read Yes Able to Write Yes Communication Tools None Right Hearing Abillity Normal Left Hearing Abillity Normal Visual Assistive Devices None Teaching Assessment Preferences Verbal,Written Barriers to Learning None Readiness To Learn Good Willingness to Engage in Self Management Med Activies Readiness to Engage in Self Management Med Activities Anxiety Level Calm Cooperation Cooperative Perception Coherent Interest in Health Problem Asks Questions Education Importance Acknowledges Need Does Patient Smoke tobacco or other No substances Smoking Status Never smoker Is Patient Diabetic No Functional Assessment Recent Decline in Ability to Perform Denies Any Declines Teaching: Wound Center Dressing Your Wound -Person Taught Patient *Wound/Skin Impairment -Person Taught Patient (a) 1 - + WC - Nurse 1 - General Ulcer Measurement Start: 11/11/24 08:20 Freq: Status: Active Protocol: Activity Type Activity Date Activity User E-sign Co-sign Detail Recorded Client Recorded Date Recorded By Document 11/11/24 08:21 DL [id number] 11/11/24 08:37 DL 11/11/24 08:21 Wound Center Nurse 1 #2 L Walls -Current Size (cm) - Length 0.1 -Current Size (cm) - Width 0.1 -Current Size (cm) - Depth 0.1 -Total Square Cm 0.01 -Photo Taken Yes -Exudate Amt Small -Exudate Type Serosanguineous -Wound Margin Distinct, Outline Attached -Granulation Amt None Present (0 %) -Necrosis Amt Small (1-33%) -Necrotic Tissue Type Adherent Slough -Structure Exposed N/A -Texture (Adry-wound Skin Appearance) Localized Edema ,Scarring -Moisture (Adry-wound Skin Appearance) No Abnormality -Color (Adry-wound Skin Appearance) No Abnormality -Temperature (Adry-wound Skin No Abnormality Appearance) (Pt Warm) -Tenderness on Palpation (Adry-wound No Skin Appearance) -Ulcer Cleansing Soap and Water -Foul Odor after Cleansing No -Anesthetic Used 4% Lidocaine Solution Right Calf (cm) 30 Right Ankle (cm) 18.5 Left Calf (cm) 33 Left Ankle (cm) 21 WC - Nurse 2 - General Ulcer CM Notes Start: 11/11/24 08:20 Freq: Status: Active Protocol: Activity Type Activity Date Activity User E-sign Co-sign Detail Recorded Client Recorded Date Recorded By Document 11/11/24 09:10 BM [id number] 11/11/24 09:27 BM 11/11/24 09:10 Wound Center Nurse 2 #2 L Walls -Time 09:10 -Correct Patient Yes -Correct Side, Site, Position Yes -Correct Procedure Yes -Procedure Performed Yes -Type of Procedure Debridement -Clinical Debridement Subcutaneous -Tissue Removed Subcutaneous -Post Debridement (cm) - Length 9.4 -Post Debridement (cm) - Width 3.5 -Post Debridement (cm) - Depth 0.2 -Total Square (Post) (cm) 32.90 -Area of Debridement (cm) - Length 9.4 -Area of Debridement (cm) - Width 3.5 -Total Square (Area) (cm) 32.90 -Tunneling No -Undermining/Tunneling No -Circular Undermining No -Wound/Ulcer Outcome Not Healed -Ulcer Cleansing Rinsed/ Irrigated with Saline -Foul Odor after Cleansing No -Bioengineered Tissue No -Bleeding Controlled with Pressure -Treatment Response Procedure Tolerated Well -Debridement - Subq, 1st 20sq cm Yes -Debridement, SubQ, ea addt'l 20sq cm 1 or part thereof Pain Scale: 0-10 Numeric Is Patient Pain Free? Yes - Nurse 3 - General Ulcer D/C NN Start: 11/11/24 08:20 Freq: Status: Active Protocol: Activity Type Activity Date Activity User E-sign Co-sign Detail Recorded Client Recorded Date Recorded By Document 11/11/24 09:41 DL [id number] 11/11/24 09:42 DL 11/11/24 09:41 Wound Care Center Nurse 3 #2 L Walls -Ulcer Cleansing Rinsed/ Irrigated with Saline -Foul Odor after Cleansing No -Primary Dressing Applied NonAdherent Contact Layer -Other Dressing Xerofrom -Primary Dressing Covered/Secured with Dry Gauze & Roll Gauze, Secured with Tape -Other Covering ABD LLE -Tubular Bandage Double Layer -Size of Tubigrip Used Size E -Size E ($) 2 Treatment Response Procedure Tolerated Well Pain Scale: 0-10 Numeric Is Patient Pain Free? Yes WC - Visit Discharge Discharge Condition Stable Ambulatory Status Ambulatory Transportation Private Auto Assessment/Plan Assessment/Plan (1) Nonhealing surgical wound: CODE(S): T81.89XA - Other complications of procedures, 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ssified, initial encounter QUALIFIERS: Encounter type: initial encounter Qualified Code(s): T81.89XA - Other complications of procedures, 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ssified, initial encounter PLAN: Wash left leg with Hibiclens or with antibacterial soap and water and apply Xeroform Adaptic gauze ABD and Stacey to left leg with a double layer Tubigrip over top this is to be done daily. (2) Infected wound: CODE(S): T14.8XXA - Other injury of unspecified body region, initial encounter; L08.9 - Local infection of the skin and subcutaneous tissue, unspecified PLAN: Wound culture obtained will call with results (3) Traumatic ulcer of left lower leg: CODE(S): L97.929 - Non-pressure chronic ulcer of unspecified part of left lower leg with unspecified severity QUALIFIERS: Non-pressure ulcer stage: with fat layer exposed Qualified Code(s): L97.922 - Non-pressure chronic ulcer of unspecified part of left lower leg with fat layer exposed 11/11/24 1233 Cosigner Signature (if applicable): CC: ~ Signed [facility]07-08-2025 Telephone encounter Note* Telephone Encounter - Veena Herr LPN - 11/10/2024 3:27 PM EDT Chey given below recommendation, verbalized understanding. Per Patient's request, faxed order to [facility]. Veena Herr LPN [facility]07-08-2025 Miscellaneous Notes* Telephone Encounter - Veena Herr LPN - 11/10/2024 3:27 PM EDT Chey given below recommendation, verbalized understanding. Per Patient's request, faxed order to [facility]. Veena Herr LPN * Telephone Encounter - Nuno Benson APRN.CNP - 11/10/2024 2:18 PM EDT Okay for post-op shoe, order written. Please reinforce she needs to rest as able and she should be icing, elevating, and I recommend compression with an DEBRA wrap to help reduce the soft tissue swelling from her injury. * Telephone Encounter - Shae Jett LPN - 11/10/2024 1:32 PM EDT Last OV: 11/04 - suture removal left leg. Pt calls to report that her left foot is still really swollen. Pt reports she has tried to rest, ice and elevate but has probably was on foot more than she should've been yesterday. Pt reports she feels she does need a post-op shoe or something to protect foot because shoes do not fit and rocks/gravel go through slipper. Please review and advise. Shae Jett LPN [facility] Telephone encounter Note * Telephone Encounter - Nuno Benson APRN.CNP - 11/10/2024 2:18 PM EDT Okay for post-op shoe, order written. Please reinforce she needs to rest as able and she should be icing, elevating, and I recommend compression with an DEBRA wrap to help reduce the soft tissue swelling from her injury. [facility]07-08-2025 Telephone encounter Note* Telephone Encounter - Shae Jett LPN - 11/10/2024 1:32 PM EDT Last OV: 11/04 - suture removal left leg. Pt calls to report that her left foot is still really swollen. Pt reports she has tried to rest, ice and elevate but has probably was on foot more than she should've been yesterday. Pt reports she feels she does need a post-op shoe or something to protect foot because shoes do not fit and rocks/gravel go through slipper. Please review and advise. Shae Jett LPN [facility]07-07-2025 Telephone encounter Note* Telephone Encounter - Dulce Centeno RN - 11/09/2024 3:55 PM EDT Pt called and is notified of providers results and question. Pt voices understanding, she states she has an appointment this Saturday. Dulce Centeno RN [facility]07-07-2025 Miscellaneous Notes* Telephone Encounter - Dulce Centeno RN - 11/09/2024 3:55 PM EDT Pt called and is notified of providers results and question. Pt voices understanding, she states she has an appointment this Saturday. Dulce Centeno RN * Telephone Encounter - Nuno Benson APRN.CNP - 11/09/2024 3:06 PM EDT Autumn sent, please see if she got scheduled with wound center. Thanks. * Telephone Encounter - Lissette Gomez - 11/09/2024 2:15 PM EDT Patient called said the antibiotic gave her a yeast infection patient if requesting a Rx of Diflucan Please send to [facility] Patient can be reached at [phone] Please advise documented [facility] Telephone encounter Note * Telephone Encounter - Nuno Benson APRN.CNP - 11/09/2024 3:06 PM EDT Diflucan sent, please see if she got scheduled with wound center. Thanks. [facility]07-07-2025 Telephone encounter Note* Telephone Encounter - Lissette Gomez - 11/09/2024 2:15 PM EDT Patient called said the antibiotic gave her a yeast infection patient if requesting a Rx of Diflucan Please send to [email or web address] Patient can be reached at [phone] Please advise [facility] Work Phone: 1(263) 971-796807-02-2025 NoteHNO ID: [id number] Author: NUNO BENSON APRN.CNP Service: ? Author Type: Nurse Practitioner Type: Progress Notes Filed: 11/04/2024 14:58 Note Text: SUBJECTIVE Chey Jeffers is a 63 year old female here today for a check up on her medical problems. Chief Complaint Patient presents with: Follow Up Suture Removal HPI Chey Jeffers is a 63 year old female. She is an established patient of Edda Oconnor MD. Here today to get the remaining sutures removed from her wound to the left lower leg. Still with foot, ankle and some leg swelling to the soft tissue. On Levaquin. Needs to schedule with the wound center. She also would like PCP office to order CT of the abdomen that GI had discussed with her. 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 Her medications were reviewed today and her list is now up to date. Medications Current Outpatient Medications Medication Sig imipramine HCl (TOFRANIL) 50 mg tablet Take 1 tablet by mouth daily at bedtime. simvastatin (ZOCOR) 40 mg tablet Take 1 tablet by mouth daily at bedtime. mupirocin (BACTROBAN) 2 % ointment Apply to affected area once daily. clonazePAM (KLONOPIN) 1 mg tablet Take 1 tablet by mouth two times a day for 90 days. Patient should start on October 28, 2024. Nebulizer Accessories kit 1 Kit as needed. budesonide-formoterol (SYMBICORT) 160-4.5 mcg/actuation inhaler Inhale 2 Puffs as instructed two times a day. albuterol HFA (VENTOLIN HFA) 90 mcg/actuation inhaler Inhale 2 Puffs as instructed every 4 hours as needed for wheezing/shortness of breath. montelukast (SINGULAIR) 10 mg tablet Take 1 tablet by mouth daily at bedtime. lansoprazole (PREVACID) 30 mg capsule Take 1 capsule by mouth once daily. sucralfate (CARAFATE) 1 gram tablet Take 1 tablet by mouth before meals and at bedtime. Estradiol (ESTRACE) 0.5 mg tablet Take 1 tablet by mouth once daily. fexofenadine (NAN) 180 mg tablet Take 1 tablet by mouth once daily. GEMTESA 75 mg tablet Take 1 tablet by mouth every afternoon. Albuterol Sulfate 1.25 mg/3 mL nebulizer solution Use 1 Ampule via nebulizer every 6 hours as needed for wheezing/shortness of breath. ipratropium (ATROVENT) 0.02 % nebulizer solution Use 2.5 mL via nebulizer four times daily as needed for wheezing/shortness of breath. calcium carb/vit D2/minerals (CALTRATE PLUS ORAL) Take 1 capsule by mouth once daily. fluticasone (FLONASE) 50 mcg/actuation nasal spray Use 1 Meraux in each nostril twice daily. VIA SPACER THEN RINSE AND GARGLE MOUTH WITH WATER. LOPERAMIDE HCL (IMODIUM ORAL) Take by mouth as needed. vit e acetate/gly/dimeth/water(CETAPHIL MOISTURIZING LOTION) apply twice daily iv contrast (will be provided with radiology test) CT ABD W -Inject, intravenously, once for 1 dose.No IV [...] be provided with radiology test) For CT ABD W IVCON order Administer, As Directed One Time Only, via Oral, Rectal, both Oral and Rectal, Enteric Tube, Stoma or Indwelling Catheter, Enteric Contrast as designated per enteric contrast guidelines nystatin (MYCOSTATIN) 100,000 unit/mL suspension Take 5 mL by mouth four times daily. 1tsp swish in mouth for several minutes, then swallow (or expectorate) 4 times daily until gone. No current facility-administered medications for this visit. ALLERGIES Allergen Reactions Amoxicillin Rash Rash a few days into a course of treatment. Noted that had not reacted to test dose penicillin but developed rash after a few days on amoxicillin. Aspirin [Salicylate* Swelling, Shortness of Breath wheezing,swelling lips,rash,hives Codeine Hives Vicodin [Hydrocodon* Hives Cefdinir Itching Itchy scaly rash. (Patient may take penicillin and other penicillin type antibiotics. See allergy visit on 01/08/23) Demerol [Meperidine* Rash Tylenol [Acetaminop* Intolerance, Shortness of Breath asthma; makes it hard for her to breathe Ambien [Zolpidem] Intolerance Was sleepwalking (arranging books but hull not recall) Bactrim [Sulfametho* uncertain Budesonide Rash Celexa [Citalopram * GI Upset Doxy [Doxycycline] rash and asthma Durezol [Diflupredn* Rash Ibuprofen Shortness of Breath Keflex [Cephalexin] Intolerance Lexapro [Escitalopr* GI Upset Lyrica [Pregabalin] Mental Status Change dizzy Macrobid [Nitrofura* Diarrhea Maprotiline Itching Monurol [Fosfomycin] Diarrhea Mucomyst [Acetylcys* Cough increase wheezing Oxycodone Shortness of Breath Penicillins Hives Allergy skin tests to pe (more content not included)...[facility]07-02-2025 History of Present illness Narrative* Nuno Benson APRN.GEOSCIENCE LABORATORY TECHNICIAN - 11/04/2024 2:37 PM EDTAssociated Order(s): Suture Removal Post-Procedure Diagnose(s): Encounter for removal of sutures; Wound of left lower extremity, subsequent encounter Images from the original note were not included. SUBJECTIVE Chey Jeffers is a 63 year old female here today for a check up on her medical problems. Chief Complaint Patient presents with: Follow Up Suture Removal HPI Chey Jeffers is a 63 year old female. She is an established patient of Edda Oconnor MD. Here today to get the remaining sutures removed from her wound to the left lower leg. Still with foot, ankle and some leg swelling to the soft tissue. On Levaquin. Needs to schedule with the wound center. She also would like PCP office to order CT of the abdomen that GI had discussed with her. 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 Her medications were reviewed today and her list is now up to date. Medications Current Outpatient Medications Medication Sig imipramine HCl (TOFRANIL) 50 mg tablet Take 1 tablet by mouth daily at bedtime. simvastatin (ZOCOR) 40 mg tablet Take 1 tablet by mouth daily at bedtime. mupirocin (BACTROBAN) 2 % ointment Apply to affected area once daily. clonazePAM (KLONOPIN) 1 mg tablet Take 1 tablet by mouth two times a day for 90 days. Patient should start on October 28, 2024. Nebulizer Accessories kit 1 Kit as needed. budesonide-formoterol (SYMBICORT) 160-4.5 mcg/actuation inhaler Inhale 2 Puffs as instructed two times a day. albuterol HFA (VENTOLIN HFA) 90 mcg/actuation inhaler Inhale 2 Puffs as instructed every 4 hours asneeded for wheezing/shortness of breath. montelukast (SINGULAIR) 10 mg tablet Take 1 tablet by mouth daily at bedtime. lansoprazole (PREVACID) 30 mg capsule Take 1 capsule by mouth once daily. sucralfate (CARAFATE) 1 gram tablet Take 1 tablet by mouth before meals and at bedtime. Estradiol (ESTRACE) 0.5 mg tablet Take 1 tablet by mouth once daily. fexofenadine (NAN) 180 mg tablet Take 1 tablet by mouth once daily. GEMTESA 75 mg tablet Take 1 tablet by mouth every afternoon. Albuterol Sulfate 1.25 mg/3 mL nebulizer solution Use 1 Ampule via nebulizer every 6 hours as needed for wheezing/shortness of breath. ipratropium (ATROVENT) 0.02 % nebulizer solution Use 2.5 mL via nebulizer four times daily as needed for wheezing/shortness of breath. calcium carb/vit D2/minerals (CALTRATE PLUS ORAL) Take 1 capsule by mouth once daily. fluticasone (FLONASE) 50 mcg/actuation nasal spray Use 1 Meraux in each nostril twice daily. VIA SPACER THEN RINSE AND GARGLE MOUTH WITH WATER. LOPERAMIDE HCL (IMODIUM ORAL) Take by mouth as needed. vit e acetate/gly/dimeth/water(CETAPHIL MOISTURIZING LOTION) apply twice daily iv contrast (will be provided with radiology test) CT ABD W -Inject, intravenously, once for 1 dose.No IV access, insert saline lock prior to the beginning of sedation, infusion, injection of imagingexam. Discontinue saline lock post exam. If Pt. has a central line or IVAD, may access for administration according to line specific nursing protocol. Once exam is complete flush line and de-access according to line specific nursing protocol in the CT contrast administration guidelines link. enteric contrast (will be provided with radiology test) For CT ABD W IVCON order Administer, As Directed One Time Only, via Oral, Rectal, both Oral and Rectal, Enteric Tube, Stoma or Indwelling Catheter, Enteric Contrast as designated per enteric contrast guidelines nystatin (MYCOSTATIN) 100,000 unit/mL suspension Take 5 mL by mouth four times daily. 1tsp swish inmouth for several minutes, then swallow (or expectorate) 4 times daily until gone. No current facility-administered medications for this visit. ALLERGIES Allergen Reactions Amoxicillin Rash Rash a few days into a course of treatment. Noted that had not reacted to test dose penicillin but developed rash after a few days on amoxicillin. Aspirin [Salicylate* Swelling, Shortness of Breath wheezing,swelling lips,rash,hives Codeine Hives Vicodin [Hydrocodon* Hives Cefdinir Itching Itchy scaly rash. (Patient may take penicillin and other penicillin type antibiotics. See allergyvisit on 01/08/23) Demerol [Meperidine* Rash Tylenol [Acetaminop* Intolerance, Shortness of Breath asthma; makes it hard for her to breathe Ambien [Zolpidem] Intolerance Was sleepwalking (arranging books but hull not recall) Bactrim [Sulfametho* uncertain Budesonide Rash Celexa [Citalopram * GI Upset Doxy [Doxycycline] rash and asthma Durezol [Diflupredn* Rash Ibuprofen Shortness of Breath Keflex [Cephalexin] Intolerance Lexapro [Escitalopr* GI Upset Lyrica [Pregabalin] Mental [...] tests are unreliable for predicting delayed reactions. Toradol [Ketorolac * Swelling Ultram [Tramadol Hc* Other: See Comments chest pains Vancomycin Other: See Comments Wheezing after taking, legs swollen and tongue swelling and scratchy neck Venlafaxine GI Upset Zithromax [Azithrom* Itching Mirtazapine Other: See Comments Hand shakes. ACTIVE PROBLEM LIST Cervical Spondylosis Without Myelopathy - 07/20/2020 Lumbosacral Spondylosis Without Myelopathy - 07/20/2020 Spinal Stenosis, Lumbar Region, Without Neurogenic Claudication - 07/20/2020 Nasal Polyposis - 01/16/2017 Serrated Adenoma of Colon - 07/29/2014 Osteoporosis - 05/24/2013 Ddd (Degenerative Disc Disease), Lumbosacral - 09/07/2011 Fibromyalgia - 07/27/2009 Esophageal Reflux - 08/05/2008 Sinusitis, Chronic - 06/21/2008 Chronic Rhinitis - 02/27/2006 Pure Hypercholesterolemia Irritable Bowel Syndrome Anxiety and Depression - 06/12/2005 Other Chronic Cystitis - 06/04/2005 Asthma With Chronic Obstructive Pulmonary Disease (Copd) ([facility]) - 05/24/2005 Menopause Syndrome - 01/19/2005 Social History Tobacco Use Smoking status: Never Smokeless tobacco: Never Tobacco comments: ETS from parents in childhood home. Currently also has some household ETS. 03/17/2018. Vaping Use Vaping status: Never Used Substance Use Topics Alcohol use: Not Currently Drug use: Never Review of Systems Respiratory: Negative. Cardiovascular: Positive for leg swelling. Negative for chest pain and palpitations. Skin: Positive for wound. OBJECTIVE BP 120/78 Pulse 106 Temp (Src) 98.2 (Oral) Resp 14 Wt 149 lb 11.1 oz (67.9kg) SpO2 96% Physical Exam Vitals and nursing note reviewed. [...] Neck: Vascular: No JVD. Trachea: Trachea normal. Cardiovascular: Pulses: Normal pulses. Pulmonary: Effort: Pulmonary effort is normal. No accessory muscle usage, prolonged expiration or respiratory distress. Musculoskeletal: Cervical back: Neck supple. Skin: General: Skin is warm and dry. Capillary Refill: Capillary refill takes less than 2 seconds. Comments: Left lower leg with wound, x10 simple interrupted sutures present. Neurological: General: No focal deficit present. Mental Status: She is alert and oriented to person, place, and time. Mental status is at baseline. Psychiatric: Attention and Perception: Attention and perception normal. Mood and Affect: Mood and affect normal. Speech: Speech normal. Behavior: Behavior normal. Behavior is cooperative. Thought Content: Thought content normal. Cognition and Memory: Cognition and memory normal. Judgment: Judgment normal. SUTURE REMOVAL Date/Time: 11/04/2024 2:55 PM Performed by: Nuno Benson APRN.GEOSCIENCE LABORATORY TECHNICIAN Authorized by: Nuno Benson APRN.GEOSCIENCE LABORATORY TECHNICIAN Location: Body area: Lower extremity Location details: Left lower leg Procedure details: Wound appearance: Clean and tender Post-removal: Dressing applied, Steri-Strips applied and antibiotic ointment applied Suture not placed during surgical procedure Patient tolerance: Patient tolerated the procedure well with no immediate complications ASSESSMENT/PLAN: 1. Intra-abdominal and pelvic swelling, mass and lump, unspecified site - ICD9: 789.30, ICD10: R19.00 (primary diagnosis) Set up for CT and will CC Dr. Thomason - CT ABDOMEN W IVCON - IV CONTRAST (RADIOLOGY PROCEDURE) - NOT ON MAR - ENTERIC CONTRAST (RADIOLOGY PROCEDURE) - NOT ON MAR - CREATININE BLD 2. Other specified disorders of kidney and ureter - ICD9: 593.89, ICD10: N28.89 Update imaging. - CT ABDOMEN W IVCON - IV CONTRAST (RADIOLOGY PROCEDURE) - NOT ON MAR - ENTERIC CONTRAST (RADIOLOGY PROCEDURE) - NOT ON MAR - CREATININE BLD 3. Pancreatic cyst (HCC) - ICD9: 577.2, ICD10: K86.2 Update imaging. - CT ABDOMEN W IVCON - IV CONTRAST (RADIOLOGY PROCEDURE) - NOT ON MAR - ENTERIC CONTRAST (RADIOLOGY PROCEDURE) - NOT ON MAR - CREATININE BLD 4. Renal cyst - ICD9: 753.10, ICD10: N28.1 - CT ABDOMEN W IVCON - IV CONTRAST (RADIOLOGY PROCEDURE) - NOT ON MAR - ENTERIC CONTRAST (RADIOLOGY PROCEDURE) - NOT ON MAR - CREATININE BLD 5. Wound of left lower extremity, subsequent encounter - ICD9: V58.89, 894.0, ICD10: S81.802D Discussed wound care, remaining sutures removed. Schedule with wound center, consult sent last visit. 6. Swelling of left lower extremity - ICD9: 729.81, ICD10: M79.89 Xrays still pending. Likely soft tissue related from her wound. Advised rest, ice, compression, elevation. 7. Pain in left ankle and joints of left foot - ICD9: 719.47, ICD10: M25.572 Xrays pending. Cannot use crutches due to coordination issues, does not want post-op shoe or ortho boot. 8. Encounter for removal of sutures - ICD9: V58.32, ICD10: Z48.02 See note from removal. Portions of this note have been entered by ancillary staff. I have reviewed and when necessary edited, so that they are an adequate record of my encounter with this patient Please note that parts of this document were created using voice recognition software and therefore may contain grammatical errors. Patient verbalizes understanding of instructions from today's visit and in agreement with treatmentplan. Questions answered. Agrees to call the office [...] as well as compliance with taking medications. Age- appropriate health preventative measures were discussed. Return if symptoms worsen or fail to improve, for Keep next scheduled appointment.. Nuno Benson APRN-JACKIE [facility] Tele[facility] encounter Note * Telephone Encounter - Nuno Benson APRN.CNP - 11/02/2024 12:44 PM EDT I did not get in contact with them, can update pt with her follow up later this week. [facility] Miscellaneous Notes* Telephone Encounter - Nuno Benson APRN.CNP - 11/02/2024 12:44 PM EDT I did not get in contact with them, can update pt with her follow up later this week. * Telephone Encounter - Shae Jett LPN - 11/02/2024 11:48 AM EDT Pt calls to report she forgot to ask provider at appt today if provider was able to get in contact with Dr. Thomason in regards to abominal issue addressed at 10/26/24 appt. Please review and advise. Shae Jett LPN documented in this encounterW[facility] Telephone encounter Note * Telephone Encounter - Shae Jett LPN - 11/02/2024 11:48 AM EDT Pt calls to report she forgot to ask provider at appt today if provider was able to get in contact with Dr. Thomason in regards to abominal issue addressed at 10/26/24 appt. Please review and advise. Shae Jett LPN [facility]06-30-2025 History of Present illness Narrative* Beth Grider RT(R) - 11/02/2024 9:30 AM EDT Radiology Service Progress Note PATIENT NAME: Chey Jeffers DATE OF SERVICE: November 02, 2024 TIME: 9:55 AM PATIENT IDENTITY VERIFICATION COMPLETED USING TWO (2) IDENTIFIERS: Name and Date of confirmedby patient verbally. FALL SCREENING: Has the patient had 2 falls in the last year or 1 fall with injury or currently using an Ambulatory Assistive Device (Walker, Cane, Wheelchair, Crutches, etc.)? No PATIENT GENDER DATA: Assigned female at . status: : No status:NO. PATIENT RELEVANT IMPLANT DATA REVIEWED: Not Applicable PATIENT PRESENTS WITH AN IMPLANTABLE OR ATTACHED LUMBER YARD WORKER: No RADIOLOGY DEPARTMENT: General X-ray: Exam(s) Completed: Lower Extremity X- Ray(s): Ankle, Left and Foot, Left PERIPHERAL IV DATA: Not applicable SIGNED BY: JUDI Brewer) November 02, 2024 9:55 AM documented in this encounterW[facility]25 NoteHNO ID: [id number] Author: BETH GRIDER RT(R) Service: ? Author Type: Technologist Type: Progress Notes Filed: 11/02/2024 10:05 Note Text: Radiology Service Progress Note PATIENT NAME: Chey Jeffers DATE OF SERVICE: November 02, 2024 TIME: 9:55 AM PATIENT IDENTITY VERIFICATION COMPLETED USING TWO (2) IDENTIFIERS: Name and Date of confirmed by patient verbally. FALL SCREENING: Has the patient had 2 falls in the last year or 1 fall with injury or currently using an Ambulatory Assistive Device (Walker, Cane, Wheelchair, Crutches, etc.)? No PATIENT GENDER DATA: Assigned female at . status: : No status: NO. PATIENT RELEVANT IMPLANT DATA REVIEWED: Not Applicable PATIENT PRESENTS WITH AN IMPLANTABLE OR ATTACHED LUMBER YARD WORKER: No RADIOLOGY DEPARTMENT: General X-ray: Exam(s) Completed: Lower Extremity X-Ray(s): Ankle, Left and Foot, Left PERIPHERAL IV DATA: Not applicable SIGNED BY: RT Daniella(R) November 02, 2024 9:55 [facility]06-30-2025 NoteHNO ID: [id number] Author: NUNO BENSON APRN.GEOSCIENCE LABORATORY TECHNICIAN Service: ? Author Type: Nurse Practitioner Type: Progress Notes Filed: 11/02/2024 10:03 Note Text: SUBJECTIVE Chey Jeffers is a 63 year old female here today for a check up on her medical problems. Chief Complaint Patient presents with: Recheck: wound of left lower leg states foot is very swollen despite elevation and ice HPI Chey Jeffers is a 63-year-old female presenting for follow-up after an ER visit on 10/22/2024 at [facility] for a fall resulting in a left lower leg injury. Chey was seen last week on 10/26/2024 following an ER visit on 10/22/2024 for a fall resulting in a left lower leg injury. Sutures were placed to secure a skin flap, and she was started on Keflex. However, she felt like she was having a reaction to the Keflex, so it was discontinued, and mupirocin ointment was started. She was also planning to follow up with ENT on the same day and potentially start Levaquin, which she confirms she has started. She reports persistent pain in the left lower leg, ankle, and foot, as well as swelling in the foot. She has been icing the area 2-3 times a day for almost 20 minutes at a time and propping it up. She has also used Epsom salts but is being careful not to get the wound wet. She notes that the redness of the wound has improved, stating it was previously beet red. She is concerned about the appearance of the wound, describing it as gross, and is apprehensive about suture removal due to anticipated pain. Her medications were reviewed today and her list is now up to date. Medications Current Outpatient Medications Medication Sig imipramine HCl (TOFRANIL) 50 mg tablet Take 1 tablet by mouth daily at bedtime. simvastatin (ZOCOR) 40 mg tablet Take 1 tablet by mouth daily at bedtime. mupirocin (BACTROBAN) 2 % ointment Apply to affected area once daily. clonazePAM (KLONOPIN) 1 mg tablet Take 1 tablet by mouth two times a day for 90 days. Patient should start on October 28, 2024. Nebulizer Accessories kit 1 Kit as needed. nystatin (MYCOSTATIN) 100,000 unit/mL suspension Take 5 mL by mouth four times daily. 1tsp swish in mouth for several minutes, then swallow (or expectorate) 4 times daily until gone. budesonide-formoterol (SYMBICORT) 160-4.5 mcg/actuation inhaler Inhale 2 Puffs as instructed two times a day. albuterol HFA (VENTOLIN HFA) 90 mcg/actuation inhaler Inhale 2 Puffs as instructed every 4 hours as needed for wheezing/shortness of breath. montelukast (SINGULAIR) 10 mg tablet Take 1 tablet by mouth daily at bedtime. lansoprazole (PREVACID) 30 mg capsule Take 1 capsule by mouth once daily. sucralfate (CARAFATE) 1 gram tablet Take 1 tablet by mouth before meals and at bedtime. Estradiol (ESTRACE) 0.5 mg tablet Take 1 tablet by mouth once daily. fexofenadine (NAN) 180 mg tablet Take 1 tablet by mouth once daily. GEMTESA 75 mg tablet Take 1 tablet by mouth every afternoon. Albuterol Sulfate 1.25 mg/3 mL nebulizer solution Use 1 Ampule via nebulizer every 6 hours as needed for wheezing/shortness of breath. ipratropium (ATROVENT) 0.02 % nebulizer solution Use 2.5 mL via nebulizer four times daily as needed for wheezing/shortness of breath. calcium carb/vit D2/minerals (CALTRATE PLUS ORAL) Take 1 capsule by mouth once daily. fluticasone (FLONASE) 50 mcg/actuation nasal spray Use 1 Meraux in each nostril twice daily. VIA SPACER THEN RINSE AND GARGLE MOUTH WITH WATER. LOPERAMIDE HCL (IMODIUM ORAL) Take by mouth as needed. vit e acetate/gly/dimeth/water(CETAPHIL MOISTURIZING LOTION) apply twice daily No current facility-administered medications for this visit. ALLERGIES Allergen Reactions Amoxicillin Rash Rash a few days into a course of treatment. Noted that had not reacted to test dose penicillin but developed rash after a few days on amoxicillin. Aspirin [Salicylate* Swelling, Shortness of Breath wheezing,swelling lips,rash,hives Codeine Hives Vicodin [Hydrocodon* Hives Cefdinir Itching Itchy scaly rash. (Patient may take penicillin and other penicillin type antibiotics. See allergy visit on 01/08/23) Demerol [Meperidine* Rash Tylenol [Acetaminop* Intolerance, Shortness of Breath asthma; makes it hard for her to breathe Ambien [Zolpidem] Intolerance Was sleepwalking (arranging books but hull not recall) Bactrim [Sulfametho* uncertain Budesonide Rash Celexa [Citalopram * GI Upset Doxy [Doxycycline] rash and asthma Durezol [Diflupredn* Rash Ibuprofen Shortness of Breath Keflex [Cephalexin] Intolerance Lexapro [Escitalopr* GI Upset Lyrica [Pregabalin] Mental Status Change dizzy Macrobid [Nitrofura* Diarrhea Maprotiline Itching Monurol [Fosfomycin] Diarrhea Mucomyst [Acetylcys* Cough increase wheezing Oxycodone Shortness of Breath Penicillins Hives Allergy skin tests to penicillin were negative. The patient took a test dose of a (more content not included)...[facility]06-30-[facility]25 History of Present illness Narrative* Nuno Benson APRN.GEOSCIENCE LABORATORY TECHNICIAN - 11/02/2024 8:36 AM EDT SUBJECTIVE Chey Jeffers is a 63 year old female here today for a check up on her medical problems. Chief Complaint Patient presents with: Recheck: wound of left lower leg states foot is very swollen despite elevation and ice HPI Chey Jeffers is a 63-year-old female presenting for follow-up after an ER visit on 10/22/2024 at [facility] for a fall resulting in a left lower leg injury. Chey was seen last week on 10/26/2024 following an ER visit on 10/22/2024 for a fall resulting in aleft lower leg injury. Sutures were placed to secure a skin flap, and she was started on Keflex. However, she felt like she was having a reaction to the Keflex, so it was discontinued, and mupirocin ointment was started. She was also planning to follow up with ENT on the same day and potentially start Levaquin, which she confirms she has started. She reports persistent pain in the left lower leg, ankle, and foot, as well as swelling in the foot. She has been icing the area 2-3 times a day for almost 20 minutes at a time and propping it up. She has also used Epsom salts but is being careful not to get the wound wet. She notes that the redness of the wound has improved, stating it was previously beet red. She is concerned about the appearance of the wound, describing it as gross, and is apprehensive about suture removal due to anticipated pain. Her medications were reviewed today and her list is now up to date. Medications Current Outpatient Medications Medication Sig imipramine HCl (TOFRANIL) 50 mg tablet Take 1 tablet by mouth daily at bedtime. simvastatin (ZOCOR) 40 mg tablet Take 1 tablet by mouth daily at bedtime. mupirocin (BACTROBAN) 2 % ointment Apply to affected area once daily. clonazePAM (KLONOPIN) 1 mg tablet Take 1 tablet by mouth two times a day for 90 days. Patient should start on October 28, 2024. Nebulizer Accessories kit 1 Kit as needed. nystatin (MYCOSTATIN) 100,000 unit/mL suspension Take 5 mL by mouth four times daily. 1tsp swish inmouth for several minutes, then swallow (or expectorate) 4 times daily until gone. budesonide-formoterol (SYMBICORT) 160-4.5 mcg/actuation inhaler Inhale 2 Puffs as instructed two times a day. albuterol HFA (VENTOLIN HFA) 90 mcg/actuation inhaler Inhale 2 Puffs as instructed every 4 hours asneeded for wheezing/shortness of breath. montelukast (SINGULAIR) 10 mg tablet Take 1 tablet by mouth daily at bedtime. lansoprazole (PREVACID) 30 mg capsule Take 1 capsule by mouth once daily. sucralfate (CARAFATE) 1 gram tablet Take 1 tablet by mouth before meals and at bedtime. Estradiol (ESTRACE) 0.5 mg tablet Take 1 tablet by mouth once daily. fexofenadine (NAN) 180 mg tablet Take 1 tablet by mouth once daily. GEMTESA 75 mg tablet Take 1 tablet by mouth every afternoon. Albuterol Sulfate 1.25 mg/3 mL nebulizer solution Use 1 Ampule via nebulizer every 6 hours as needed for wheezing/shortness of breath. ipratropium (ATROVENT) 0.02 % nebulizer solution Use 2.5 mL via nebulizer four times daily as needed for wheezing/shortness of breath. calcium carb/vit D2/minerals (CALTRATE PLUS ORAL) Take 1 capsule by mouth once daily. fluticasone (FLONASE) 50 mcg/actuation nasal spray Use 1 Meraux in each nostril twice daily. VIA SPACER THEN RINSE AND GARGLE MOUTH WITH WATER. LOPERAMIDE HCL (IMODIUM ORAL) Take by mouth as needed. vit e acetate/gly/dimeth/water(CETAPHIL MOISTURIZING LOTION) apply twice daily No current facility-administered medications for this visit. ALLERGIES Allergen Reactions Amoxicillin Rash Rash a few days into a course of treatment. Noted that had not reacted to test dose penicillin but developed rash after a few days on amoxicillin. Aspirin [Salicylate* Swelling, Shortness of Breath wheezing,swelling lips,rash,hives Codeine Hives Vicodin [Hydrocodon* Hives Cefdinir Itching Itchy scaly rash. (Patient may take penicillin and other penicillin type antibiotics. See allergyvisit on 01/08/23) Demerol [Meperidine* Rash Tylenol [Acetaminop* Intolerance, Shortness of Breath asthma; makes it hard for her to breathe Ambien [Zolpidem] Intolerance Was sleepwalking (arranging books but hull not recall) Bactrim [Sulfametho* uncertain Budesonide Rash Celexa [Citalopram * GI Upset Doxy [Doxycycline] rash and asthma Durezol [Diflupredn* Rash Ibuprofen Shortness of Breath Keflex [Cephalexin] Intolerance Lexapro [Escitalopr* GI Upset Lyrica [Pregabalin] Mental [...] tests are unreliable for predicting delayed reactions. Toradol [Ketorolac * Swelling Ultram [Tramadol Hc* Other: See Comments chest pains Vancomycin Other: See Comments Wheezing after taking, legs swollen and tongue swelling and scratchy neck Venlafaxine GI Upset Zithromax [Azithrom* Itching Mirtazapine Other: See Comments Hand shakes. ACTIVE PROBLEM LIST Cervical Spondylosis Without Myelopathy - 07/20/2020 Lumbosacral Spondylosis Without Myelopathy - 07/20/2020 Spinal Stenosis, Lumbar Region, Without Neurogenic Claudication - 07/20/2020 Nasal Polyposis - 01/16/2017 Serrated Adenoma of Colon - 07/29/2014 Osteoporosis - 05/24/2013 Ddd (Degenerative Disc Disease), Lumbosacral - 09/07/2011 Fibromyalgia - 07/27/2009 Esophageal Reflux - 08/05/2008 Sinusitis, Chronic - 06/21/2008 Chronic Rhinitis - 02/27/2006 Pure Hypercholesterolemia Irritable Bowel Syndrome Anxiety and Depression - 06/12/2005 Other Chronic Cystitis - 06/04/2005 Asthma With Chronic Obstructive Pulmonary Disease (Copd) ([facility]) - 05/24/2005 Menopause Syndrome - 01/19/2005 Social History Tobacco Use Smoking status: Never Smokeless tobacco: Never Tobacco comments: ETS from parents in childhood home. Currently also has some household ETS. 03/17/2018. Vaping Use Vaping status: Never Used Substance Use Topics Alcohol use: Not Currently Drug use: No Review of Systems Constitutional: Negative. Respiratory: Negative. Musculoskeletal: (+) left foot pain, (+) left foot swelling OBJECTIVE BP 108/88 Pulse 108 Temp (Src) 98.3 (Temporal) SpO2 98% GENERAL: NAD, alert and oriented SKIN: Unremarkable, no rash or skin lesions. HEAD: Normocephalic EYES: PERRLA, EOMI, conjunctiva clear EARS: External ears normal NOSE/SINUSES: Nares normal. OROPHARYNX: Lips, mucosa normal. NECK: Supple, no lymphadenopathy. EXTREMITIES: Left lower extremity with sutures in place, 11 of 21 removed. Site has a scab, laceration well approximated, no drainage. Pain noted in soft tissues, ankle, and foot. No deformities, no skin discoloration, no edema. NEURO: Awake, alert and oriented x3, cranial nerves II-XII grossly intact, no involuntary motions ASSESSMENT/PLAN: 1. Wound of left lower extremity, subsequent encounter (S81.802D) Encounter for removal of sutures (Z48.02) Wound site has a scab and the area of the laceration is well approximated with no drainage. 11 of 21 sutures were removed today. - Remove remaining sutures in 2 days. - Referred to the wound center at the hospital for further management. 2. Swelling of left lower extremity (M79.89) Pain in left ankle and joints of left foot (M25.572) Swelling and pain present in the soft tissues, ankle, and foot on the left side. Redness has improved. Patient is currently on Levaquin. - Ordered X-rays of the left foot and ankle. - Continue icing and elevating the foot 2-3 times daily for 20 minutes each session. Portions of this note have been entered by ancillary staff. I have reviewed and when necessary edited, so that they are an adequate record of my encounter with this patient Please note that parts of this document were created using voice recognition software and therefore may contain grammatical errors. Patient verbalizes understanding of instructions from today's visit and in agreement with treatmentplan. Questions answered. Agrees to call the office [...] as well as compliance with taking medications. Age- appropriate health preventative measures were discussed. Return in about 2 days (around 11/04/2024). Nuno Benson APRN-JACKIE documented [facility] this encounter[facility] Telephone encounter Note * Telephone Encounter - Maria Teresa Edwards APRN.CNS - 10/29/2024 11:00 AM EDT She did send on 10/28. Can re-send. [facility]06-26[facility] Miscellaneous Notes* Telephone Encounter - Maria Teresa Edwards APRN.CNS - 10/29/2024 11:00 AM EDT She did send on 10/28. Can re-send. * Telephone Encounter - Melissa Patton LPN - 10/29/2024 9:51 AM EDT Patient calling she is out of Imipramine and thought Nuno sent a rx to the pharmacy at her appt on Saturday. Reset rx to file to [facility] pharmacy. Aware Nuno is out of the office today. Please advise The patient has been identified by name and date of : Yes Caregiver verified no other encounters exist for this prescription request: Yes Caregiver confirmed with patient/requestor that no other refills are due, in the near future, with this provider at this time: Yes The last office visit in the department: 10/26/2024 Does the patient have a future office visit with this provider/department: Yes 11/02/2024 Requested Prescriptions Pending Prescriptions Disp Refills imipramine HCl (TOFRANIL) 50 mg tablet 90 tablet 2 Sig: Take 1 tablet by mouth daily at bedtime. Melissa Patton LPN October 29, 2024 9:55 AM documented in this encounterW[facility]06-26-[facility] Telephone encounter Note * Telephone Encounter - Melissa Patton LPN - 10/29/2024 9:51 AM EDT Patient calling she is out of Imipramine and thought Nuno sent a rx to the pharmacy at her appt on Saturday. Reset rx to file to [email or web address]. Aware Nuno is out of the office today. Please advise The patient has been identified by name and date of : Yes Caregiver verified no other encounters exist for this prescription request: Yes Caregiver confirmed with patient/requestor that no other refills are due, in the near future, with this provider at this time: Yes The last office visit in the department: 10/26/2024 Does the patient have a future office visit with this provider/department: Yes 11/02/2024 Requested Prescriptions Pending Prescriptions Disp Refills imipramine HCl (TOFRANIL) 50 mg tablet 90 tablet 2 Sig: Take 1 tablet by mouth daily at bedtime. Melissa Patton LPN October 29, 2024 9:55 AM [facility]06-23-[facility] Instructions* Patient Instructions* Nuno Benson APRN.CNP - 10/26/2024 9:49 AM EDT Increase the klonopin to 1 mg twice daily. Increase the imipramine HCL to 50 mg at bedtime (this will help sleep and depression). If sleep does not get better with that then okay to add 3 mg melatonin at bedtime. For the wound to the leg, stop neosporin and start using mupirocin ointment. Stop Keflex, see if Dr. Monzon wants to start Levaquin for sinuses and it will help cover the leg too. Come back in for a recheck of the wound either the end of this week or start of next week. documented in this encounterW[facility]umed[facility]06-23-2025 NoteHNO ID: [id number] Author: NUNO BENSON APRN.JACKIE Service: ? Author Type: Nurse Practitioner Type: Progress Notes Filed: 11/02/2024 09:58 Note Text: SUBJECTIVE Chey Jeffers is a 63 year old female here today for a check up on her medical problems. Chief Complaint Patient presents with: F/U 6 months: [facility] ER 10/22/24 left leg laceration Mass: noted a hard mass in abdomen and having cramps after eating. Was suggested that she have a CT scan HPI Chey Jeffers is a 63 year old female. Here today for a follow up. Also was seen in the ER recently. Was in the ER at [facility] on 10/22 following a fall that resulted in a wound to her left lower leg. She had sutures placed to secure a skin flap and was placed on Keflex. She feels she is having a reaction to the Keflex. Site does not have drainage. More depressed since the passing of her mother. Not sleeping great. More anxiety. She also has concerns of a bulge to her abdomen, superior to the umbilicus. Follows with Dr. Katelin POST. He recommend she do a CT scan. Her medications were reviewed today and her list is now up to date. Medications Current Outpatient Medications Medication Sig nystatin (MYCOSTATIN) 100,000 unit/mL suspension Take 5 mL by mouth four times daily. 1tsp swish in mouth for several minutes, then swallow (or expectorate) 4 times daily until gone. budesonide-formoterol (SYMBICORT) 160-4.5 mcg/actuation inhaler Inhale 2 Puffs as instructed two times a day. albuterol HFA (VENTOLIN HFA) 90 mcg/actuation inhaler Inhale 2 Puffs as instructed every 4 hours as needed for wheezing/shortness of breath. montelukast (SINGULAIR) 10 mg tablet Take 1 tablet by mouth daily at bedtime. lansoprazole (PREVACID) 30 mg capsule Take 1 capsule by mouth once daily. sucralfate (CARAFATE) 1 gram tablet Take 1 tablet by mouth before meals and at bedtime. Estradiol (ESTRACE) 0.5 mg tablet Take 1 tablet by mouth once daily. fexofenadine (NAN) 180 mg tablet Take 1 tablet by mouth once daily. GEMTESA 75 mg tablet Take 1 tablet by mouth every afternoon. Albuterol Sulfate 1.25 mg/3 mL nebulizer solution Use 1 Ampule via nebulizer every 6 hours as needed for wheezing/shortness of breath. ipratropium (ATROVENT) 0.02 % nebulizer solution Use 2.5 mL via nebulizer four times daily as needed for wheezing/shortness of breath. calcium carb/vit D2/minerals (CALTRATE PLUS ORAL) Take 1 capsule by mouth once daily. fluticasone (FLONASE) 50 mcg/actuation nasal spray Use 1 Meraux in each nostril twice daily. VIA SPACER THEN RINSE AND GARGLE MOUTH WITH WATER. LOPERAMIDE HCL (IMODIUM ORAL) Take by mouth as needed. vit e acetate/gly/dimeth/water(CETAPHIL MOISTURIZING LOTION) apply twice daily simvastatin (ZOCOR) 40 mg tablet Take 1 tablet by mouth daily at bedtime. mupirocin (BACTROBAN) 2 % ointment Apply to affected area once daily. imipramine HCl (TOFRANIL) 50 mg tablet Take 1 tablet by mouth daily at bedtime. [START ON 10/28/2024] clonazePAM (KLONOPIN) 1 mg tablet Take 1 tablet by mouth two times a day for 90 days. Patient should start on October 28, 2024. Nebulizer Accessories kit 1 Kit as needed. No current facility-administered medications for this visit. ALLERGIES Allergen Reactions Amoxicillin Rash Rash a few days into a course of treatment. Noted that had not reacted to test dose penicillin but developed rash after a few days on amoxicillin. Aspirin [Salicylate* Swelling, Shortness of Breath wheezing,swelling lips,rash,hives Codeine Hives Vicodin [Hydrocodon* Hives Cefdinir Itching Itchy scaly rash. (Patient may take penicillin and other penicillin type antibiotics. See allergy visit on 01/08/23) Demerol [Meperidine* Rash Tylenol [Acetaminop* Intolerance, Shortness of Breath asthma; makes it hard for her to breathe Ambien [Zolpidem] Intolerance Was sleepwalking (arranging books but hull not recall) Bactrim [Sulfametho* uncertain Budesonide Rash Celexa [Citalopram * GI Upset Doxy [Doxycycline] rash and asthma Durezol [Diflupredn* Rash Ibuprofen Shortness of Breath Keflex [Cephalexin] Intolerance Lexapro [Escitalopr* GI Upset Lyrica [Pregabalin] Mental [...] tests are unreliable for predicting delayed reactions. Toradol [Ketorolac * Swelling Ultram [Tramadol Hc* Other: See Comments chest pains Vancomycin Other: See Comments Wheezing after taking, legs swollen and tongue swelling and scratchy neck Venlafaxine GI Upset Zithro (more content not included)...[facility]06-23-2025 History of Present illness Narrative* Nuno Benson APRN.GEOSCIENCE LABORATORY TECHNICIAN - 10/26/2024 9:16 AM EDT Images from the original note were not included. SUBJECTIVE Chey Jeffers is a 63 year old female here today for a check up on her medical problems. Chief Complaint Patient presents with: F/U 6 months: [facility] ER 10/22/24 left leg laceration Mass: noted a hard mass in abdomen and having cramps after eating. Was suggested that she have a CT scan HPI Chey Jeffers is a 63 year old female. Here today for a follow up. Also was seen in the ER recently. Was in the ER at [facility] on 10/22 following a fall that resulted in a wound to her left lower leg. She had sutures placed to secure a skin flap and was placed on Keflex. She feels she is having a reaction to the Keflex. Site does not have drainage. More depressed since the passing of her mother. Not sleeping great. More anxiety. She also has concerns of a bulge to her abdomen, superior to the umbilicus. Follows with Dr. Katelin POST. He recommend she do a CT scan. Her medications were reviewed today and her list is now up to date. Medications Current Outpatient Medications Medication Sig nystatin (MYCOSTATIN) 100,000 unit/mL suspension Take 5 mL by mouth four times daily. 1tsp swish inmouth for several minutes, then swallow (or expectorate) 4 times daily until gone. budesonide-formoterol (SYMBICORT) 160-4.5 mcg/actuation inhaler Inhale 2 Puffs as instructed two times a day. albuterol HFA (VENTOLIN HFA) 90 mcg/actuation inhaler Inhale 2 Puffs as instructed every 4 hours asneeded for wheezing/shortness of breath. montelukast (SINGULAIR) 10 mg tablet Take 1 tablet by mouth daily at bedtime. lansoprazole (PREVACID) 30 mg capsule Take 1 capsule by mouth once daily. sucralfate (CARAFATE) 1 gram tablet Take 1 tablet by mouth before meals and at bedtime. Estradiol (ESTRACE) 0.5 mg tablet Take 1 tablet by mouth once daily. fexofenadine (NAN) 180 mg tablet Take 1 tablet by mouth once daily. GEMTESA 75 mg tablet Take 1 tablet by mouth every afternoon. Albuterol Sulfate 1.25 mg/3 mL nebulizer solution Use 1 Ampule via nebulizer every 6 hours as needed for wheezing/shortness of breath. ipratropium (ATROVENT) 0.02 % nebulizer solution Use 2.5 mL via nebulizer four times daily as needed for wheezing/shortness of breath. calcium carb/vit D2/minerals (CALTRATE PLUS ORAL) Take 1 capsule by mouth once daily. fluticasone (FLONASE) 50 mcg/actuation nasal spray Use 1 Meraux in each nostril twice daily. VIA SPACER THEN RINSE AND GARGLE MOUTH WITH WATER. LOPERAMIDE HCL (IMODIUM ORAL) Take by mouth as needed. vit e acetate/gly/dimeth/water(CETAPHIL MOISTURIZING LOTION) apply twice daily simvastatin (ZOCOR) 40 mg tablet Take 1 tablet by mouth daily at bedtime. mupirocin (BACTROBAN) 2 % ointment Apply to affected area once daily. imipramine HCl (TOFRANIL) 50 mg tablet Take 1 tablet by mouth daily at bedtime. [START ON 10/28/2024] clonazePAM (KLONOPIN) 1 mg tablet Take 1 tablet by mouth two times a day for 90 days. Patient should start on October 28, 2024. Nebulizer Accessories kit 1 Kit as needed. No current facility-administered medications for this visit. ALLERGIES Allergen Reactions Amoxicillin Rash Rash a few days into a course of treatment. Noted that had not reacted to test dose penicillin but developed rash after a few days on amoxicillin. Aspirin [Salicylate* Swelling, Shortness of Breath wheezing,swelling lips,rash,hives Codeine Hives Vicodin [Hydrocodon* Hives Cefdinir Itching Itchy scaly rash. (Patient may take penicillin and other penicillin type antibiotics. See allergyvisit on 01/08/23) Demerol [Meperidine* Rash Tylenol [Acetaminop* Intolerance, Shortness of Breath asthma; makes it hard for her to breathe Ambien [Zolpidem] Intolerance Was sleepwalking (arranging books but hull not recall) Bactrim [Sulfametho* uncertain Budesonide Rash Celexa [Citalopram * GI Upset Doxy [Doxycycline] rash and asthma Durezol [Diflupredn* Rash Ibuprofen Shortness of Breath Keflex [Cephalexin] Intolerance Lexapro [Escitalopr* GI Upset Lyrica [Pregabalin] Mental [...] tests are unreliable for predicting delayed reactions. Toradol [Ketorolac * Swelling Ultram [Tramadol Hc* Other: See Comments chest pains Vancomycin Other: See Comments Wheezing after taking, legs swollen and tongue swelling and scratchy neck Venlafaxine GI Upset Zithromax [Azithrom* Itching Mirtazapine Other: See Comments Hand shakes. ACTIVE PROBLEM LIST Cervical Spondylosis Without Myelopathy - 07/20/2020 Lumbosacral Spondylosis Without Myelopathy - 07/20/2020 Spinal Stenosis, Lumbar Region, Without Neurogenic Claudication - 07/20/2020 Nasal Polyposis - 01/16/2017 Serrated Adenoma of Colon - 07/29/2014 Osteoporosis - 05/24/2013 Ddd (Degenerative Disc Disease), Lumbosacral - 09/07/2011 Fibromyalgia - 07/27/2009 Esophageal Reflux - 08/05/2008 Sinusitis, Chronic - 06/21/2008 Chronic Rhinitis - 02/27/2006 Pure Hypercholesterolemia Irritable Bowel Syndrome Anxiety and Depression - 06/12/2005 Other Chronic Cystitis - 06/04/2005 Asthma With Chronic Obstructive Pulmonary Disease (Copd) ([facility]) - 05/24/2005 Menopause Syndrome - 01/19/2005 Social History Tobacco Use Smoking status: Never Smokeless tobacco: Never Tobacco comments: ETS from parents in childhood home. Currently also has some household ETS. 03/17/2018. Vaping Use Vaping status: Never Used Substance Use Topics Alcohol use: Not Currently Drug use: No Review of Systems Constitutional: Negative. Respiratory: Negative. Cardiovascular: Negative. Skin: Positive for wound. OBJECTIVE BP 116/90 Pulse 105 Wt 149 lb 14.6 oz (68.0kg) SpO2 94% Physical Exam Vitals and nursing note reviewed. [...] Neck: Vascular: No JVD. Trachea: Trachea normal. Cardiovascular: Rate and Rhythm: Normal rate and regular rhythm. Pulses: Normal pulses. Heart sounds: Normal heart sounds. No murmur heard. Pulmonary: Effort: Pulmonary effort is normal. No accessory muscle usage, prolonged expiration or respiratory distress. Breath sounds: Normal breath sounds. Musculoskeletal: Cervical back: Neck supple. Skin: General: Skin is warm and dry. Capillary Refill: Capillary refill takes less than 2 seconds. Comments: Left lower leg with wound that has sutures intact with erythema surrounding Neurological: General: No focal deficit present. Mental Status: She is alert and oriented to person, place, and time. Mental status is at baseline. Psychiatric: Attention and Perception: Attention and perception normal. Mood and Affect: Mood and affect normal. Speech: Speech normal. Behavior: Behavior normal. Behavior is cooperative. Thought Content: Thought content normal. Cognition and Memory: Cognition and memory normal. Judgment: Judgment normal. ASSESSMENT/PLAN: 1. Grief reaction - ICD9: 309.0, ICD10: F43.20 (primary diagnosis) Discussed grief secondary to the passing of her mother. 2. Anxiety and depression - ICD9: 300.00, 311, ICD10: F41.9, F32.A Increase medications for the time being. - IMIPRAMINE 50 MG TABLET - CLONAZEPAM 1 MG TABLET 3. Sleep disturbance - ICD9: 780.50, ICD10: G47.9 Increase imipramine and can try melatonin if that is not helpful. 4. Wound of right lower extremity, subsequent encounter - ICD9: V58.89, 894.0, ICD10: S81.801D Discussed care of the area, stop Keflex due to possible rash from that. Seeing ENT later today and she is to let us know if prescribed Levaquin by them. 5. Abdominal wall bulge - ICD9: 789.30, ICD10: R19.00 GI to workup. Portions of this note have been entered by ancillary staff. I have reviewed and when necessary edited, so that they are an adequate record of my encounter with this patient Please note that parts of this document were created using voice recognition software and therefore may contain grammatical errors. Patient verbalizes understanding of instructions from today's visit and in agreement with treatmentplan. Questions answered. Agrees to call the office [...] as well as compliance with taking medications. Age- appropriate health preventative measures were discussed. Return in about 1 week (around 11/02/2024) for recheck on wound. Nuno Benson APRN-JACKIE documented in this encounterW[facility]06-19-[facility]25 Radiology Diagnostic study note [facility] Imaging Services [address], [place] [address] Tibia & Fibula 2 Views MR#: [id number] Acct: [id number] Name: CHEY JEFFERS Rep #: [id number] : 1960 F 63 From: [employer] PCP: Dr. Edda Oconnor MD Status: RE G ER Study:Tibia & Fibula 2 Views Date of Exam: 10/22/24 Exam# [id number] Ordering Dr: Juanjose Rocha DO PROCEDURE: TIBIA FIBULA 2 VIEWS 10/22/2024 REASON FOR EXAM: INJURY Initial encounter. TECHNIQUE: TIBIA FIBULA 2 VIEWS COMPARISON: Comparison exam August 29, 2020. FINDINGS: Tibia and fibula are intact. No fracture. No ankle or knee dislocation. Normal bone mineralization. Soft tissues are unremarkable. RAD/Tibia & Fibula 2 Views IMPRESSION: Negative tibia and fibula exam. Reading [facility] CC: Dr. Juanjose Beckman DO; Dr. Edda Oconnor MD ~ Agricultural Chemicals Inspector: Signed [facility]06-05-2025 History of Present illness Narrative* Krystal Hunter, (R) - 10/08/2024 8:30 AM EDT Radiology Service Progress Note PATIENT NAME: Chey Jeffers DATE OF SERVICE: October 08, 2024 TIME: 8:49 AM PATIENT IDENTITY VERIFICATION COMPLETED USING TWO (2) IDENTIFIERS: Name and Date of confirmedby patient verbally. FALL SCREENING: Has the patient had 2 falls in the last year or 1 fall with injury or currently using an Ambulatory Assistive Device (Walker, Cane, Wheelchair, Crutches, etc.)? No PATIENT GENDER DATA: Assigned female at . status: : No status:NO. PATIENT RELEVANT IMPLANT DATA REVIEWED: Yes PATIENT PRESENTS WITH AN IMPLANTABLE OR ATTACHED LUMBER YARD WORKER: No RADIOLOGY DEPARTMENT: MR; Exam(s) Completed: Spine: Lumbar spine. Lavender Administered: No PERIPHERAL IV DATA: Not applicable SIGNED BY: RT Luis(R) October 08, 2024 8:49 AM documented in this encounterWvumedicine [facility]06-05-2025 NoteHNO ID: [id number] Author: KRYSTAL HUNTER RT(Leanne) Service: ? Author Type: Technologist Type: Progress Notes Filed: 10/08/2024 08:49 Note Text: Radiology Service Progress Note PATIENT NAME: Chey Jeffers DATE OF SERVICE: October 08, 2024 TIME: 8:49 AM PATIENT IDENTITY VERIFICATION COMPLETED USING TWO (2) IDENTIFIERS: Name and Date of confirmed by patient verbally. FALL SCREENING: Has the patient had 2 falls in the last year or 1 fall with injury or currently using an Ambulatory Assistive Device (Walker, Cane, Wheelchair, Crutches, etc.)? No PATIENT GENDER DATA: Assigned female at . status: : No status: NO. PATIENT RELEVANT IMPLANT DATA REVIEWED: Yes PATIENT PRESENTS WITH AN IMPLANTABLE OR ATTACHED LUMBER YARD WORKER: No RADIOLOGY DEPARTMENT: MR; Exam(s) Completed: Spine: Lumbar spine. Lavender Administered: No PERIPHERAL IV DATA: Not applicable SIGNED BY: RT Luis(R) October 08, 2024 8:49 [facility]05-19-2025 Procedure note [facility] Medical Records Department [address] [place] [address] Operative Report 09/21/24911 MR#: [id number] Acct: [id number] Name: CHEY JEFFERS Rep #:[id number] : 1960 63 From: Aryan Bianchi MD PCP: Dr. Edda Oconnor MD Status:[facility] Location: [place] [address] Operative Report (Standard) Operative Information Date of Procedure: 09/21/24 Pre-Operative Diagnosis: Lumbosacral radiculopathy, lumbosacral degenerative disc disease, lumbosacral spinal stenosis Post-Operative Diagnosis: Lumbosacral radiculopathy, lumbosacral degenerative disc disease, lumbosacral spinal stenosis Surgery/Procedure Performed: Left-sided lumbar transforaminal epidural steroid injection L3-4, L4-5under fluoroscopic guidance manager channel: No Type of Anesthesia: Local RN Documented Start/Stop Times: Operation Date: 09/21/24 09:35 Case Time Into Pre-Op 09/21/24 07:52 Out of Pre-Op 09/21/24 08:46 Into Room 09/21/24 08:56 Procedure Start 09/21/24 09:01 Procedure End 09/21/24 09:06 Anesthesia End 09/21/24 09:08 Out of Room 09/21/24 09:08 Anesthesia Start Procedure Start Time: 09:14 Procedure Stop Time: 09:14 Select all DRAINS/GRAFTS/IMPLANTS that apply: None Estimated Blood Loss: 0 Specimen collected: No Description of surgery: PREOPERATIVE DIAGNOSES: 1. Lumbosacral radiculopathy. 2. Lumbosacral degenerative disk disease. 3. Lumbosacral spinal stenosis. POSTOPERATIVE DIAGNOSES: 1. Lumbosacral radiculopathy. 2. Lumbosacral degenerative disk disease. 3. Lumbosacral spinal stenosis. PROCEDURE PERFORMED: Left-sided lumbar transforaminal epidural steroid injection, L3-4 and L4-5. ANESTHESIA: Local BLOOD LOSS: Minimal. COMPLICATIONS: None. DESCRIPTION OF PROCEDURE: History and physical of today was reviewed. Risks and benefits of the procedure were explained. The patient understood and agreedto proceed. Informed consent was obtained. IV inserted per routine protocol. The patient was taken to the operating room and placed in the proneposition with a pillow positioned underneath the abdomen. The left side of their lower back was prepped and draped in a sterile fashion using iodine x3. Under fluoroscopy guidance on oblique view, the L3 through L5 vertebral bodies were visualized. The skin and subcutaneous tissue was anesthetized with approximately 5 mL of 1% lidocaine using a 25-gauge regular needle. Under direct visualization with fluoroscopy at approximately 35-degree angle, startingon the left L3, ending on the left L4, using a 22-gauge 5-inch spinal needle, the needle was advanced via the skin. The tip of the needle wasmaneuvered and directed towards the inferior and medial gutter of the transverse process at thesuperiormost aspect of the neural foramen. Once the tip of the needle was at the vicinity of the foramen, after negative aspiration for blood or CSF, a totalof 1 mL of contrast was injected in divided doses between both levels to confirmcorrect placement of the needle as well as medial spread. The confirmation was obtained on AP as well as lateral view. After repeated negative aspiration and confirmation on AP as well as lateral view, a total of 6 mL of preservative-free0.25% Marcaine with 80 mg of Depo-Medrol was injected in divided doses between both levels. The needles were then removed intact.The patient experienced no sign or symptoms of intrathecal or intravascular injection. The patient experienced no paresthesia. The procedure was completed without any apparent difficulty or any compli cations. The patient appeared to tolerate it well. ASSESSMENT AND PLAN: This is a 63-year-old female with lumbosacral radiculopathy, lumbosacral degenerative disk disease, and lumbosacral spinal stenosis, status post left-sided lumbar transforaminal epidural steroid injection at L3-4 and L4-5. The patient will continue her current medications. The patient will follow up in approximately 2 weeks for reevaluation. Surgical Findings: 0 Complications Complications: No Admit VTE Documentation VTE Present on Admission: No VTE Mechan Device Prophylaxis: None VTE Pharm Prophylaxis ordered?: No 09/21/24 0916 Cosigner Signature (if applicable): CC: Dr. Aryan Bianchi MD; Dr. Edda Oconnor MD~ Signed [facility]05-13-2025 Telephone encounter Note* Telephone Encounter - Edda Oconnor MD - 09/15/2024 12:07 PM EDT The following approved medication requests have been transmitted electronically. Requested Prescriptions Signed Prescriptions Disp Refills clonazePAM (KLONOPIN) 0.5 mg tablet 60 tablet 2 Sig: Take 1 tablet by mouth two times a day for 90 days. Authorizing Provider: EDDA OCONNOR MD [facility]05-13-2025 Miscellaneous Notes* Telephone Encounter - Edda Oconnor MD - 09/15/2024 12:07 PM EDT The following approved medication requests have been transmitted electronically. Requested Prescriptions Signed Prescriptions Disp Refills clonazePAM (KLONOPIN) 0.5 mg tablet 60 tablet 2 Sig: Take 1 tablet by mouth two times a day for 90 days. Authorizing Provider: EDDA OCONNOR MD * Telephone Encounter - Mary Lou Castañeda MA - 09/14/2024 8:32 AM EDT Patient has been identified by name and date of : yes Patient phones for refill(s): Requested Prescriptions Pending Prescriptions Disp Refills clonazePAM (KLONOPIN) 0.5 mg tablet 60 tablet 2 Sig: Take 1 tablet by mouth two times a day for 90 days. Date of last office visit in primary care: 05/04/2024 Date of next office visit in primary care: 11/02/24 Please advise. Thank you. Mary Lou Castañeda MA. * Telephone Encounter - [place] Mary Kendall - 09/14/2024 8:28 AM EDT Prescription Refill Information The patient has been identified by name and date of : Yes Caregiver verified no other encounters exist for this prescription request: Yes Caregiver confirmed with patient/requestor that no other refills are due, in the near future, with this provider at this time: Yes The last office visit in the department: 05/04/24 Does the patient have a future office visit with this provider/department: No Requested Prescriptions Pending Prescriptions Disp Refills clonazePAM (KLONOPIN) 0.5 mg tablet 60 tablet 2 Sig: Take 1 tablet by mouth two times a day for 90 days. Mary Duong [facility] September 14, 2024 8:28 AM documented [facility] Telephone encounter Note * Telephone Encounter - Mary Lou Castañeda MA - 09/14/2024 8:32 AM EDT Patient has been identified by name and date of : yes Patient phones for refill(s): Requested Prescriptions Pending Prescriptions Disp Refills clonazePAM (KLONOPIN) 0.5 mg tablet 60 tablet 2 Sig: Take 1 tablet by mouth two times a day for 90 days. Date of last office visit in primary care: 05/04/2024 Date of next office visit in primary care: 11/02/24 Please advise. Thank you. Mary Lou Castañeda MA. [facility]05-12-2025 Telephone encounter Note* Telephone Encounter - Mary Marcus - 09/14/2024 8:28 AM EDT Prescription Refill Information The patient has been identified by name and date of : Yes Caregiver verified no other encounters exist for this prescription request: Yes Caregiver confirmed with patient/requestor that no other refills are due, in the near future, with this provider at this time: Yes The last office visit in the department: 05/04/24 Does the patient have a future office visit with this provider/department: No Requested Prescriptions Pending Prescriptions Disp Refills clonazePAM (KLONOPIN) 0.5 mg tablet 60 tablet 2 Sig: Take 1 tablet by mouth two times a day for 90 days. Mary Duong [facility] September 14, 2024 8:28 AM [facility]04-15-2025 NotePatient Outreach (INTMWS) CHEY JEFFERS ([id number]) 1960 F Date Time Provider Department 08/18/24 EDDA OCONNOR INTMWS During your visit today, we recorded the following information about you: Allergies As of Date: 08/18/2024 Noted Allergy Reaction AMOXICILLIN 01/17/2023 2 - Rash Comments: Rash a few days into a course of treatment. Noted that had not reacted to test dose penicillin but developed rash after a few days on amoxicillin. ASPIRIN (SALICYLATES) 05/24/2006 7 - Swelling 12 - Shortness of Breath Comments: wheezing,swelling lips,rash,hives CODEINE 02/15/2005 4 - Hives VICODIN (HYDROCODONE-ACETAMINOPHE*02/15/2005 4 - Hives CEFDINIR 12/21/2019 9 - Itching Comments: Itchy scaly rash. (Patient may take penicillin and other penicillin type antibiotics. See allergy visit on 01/08/23) DEMEROL (MEPERIDINE (PF)) 01/03/2006 2 - Rash TYLENOL (ACETAMINOPHEN) 01/02/2006 5 - Intolerance 12 - Shortness of Breath Comments: asthma; makes it hard for her to breathe AMBIEN (ZOLPIDEM) 04/07/2022 5 - Intolerance Comments: Was sleepwalking (arranging books but hull not recall) BACTRIM (SULFAMETHOXAZOLE-TRIMETH*07/25/2005 Comments: uncertain BUDESONIDE 06/26/2018 2 - Rash CELEXA (CITALOPRAM HYDROBROMIDE) 07/25/2005 8 - GI Upset DOXY (DOXYCYCLINE) 06/04/2005 Comments: rash and asthma DUREZOL (DIFLUPREDNATE) 03/04/2014 2 - Rash IBUPROFEN 07/25/2005 12 - Shortness of Breath LEXAPRO (ESCITALOPRAM OXALATE) 07/25/2005 8 - GI Upset LYRICA (PREGABALIN) 04/10/2011 1 - Mental Status Change Comments: dizzy MACROBID (NITROFURANTOIN MONOHYD/*06/26/2018 6 - Diarrhea MAPROTILINE 05/16/2009 9 - Itching MONUROL (FOSFOMYCIN) 05/18/2021 6 - Diarrhea MUCOMYST (ACETYLCYSTEINE) 10/30/2012 3 - Cough Comments: increase wheezing OXYCODONE 01/17/2011 12 - Shortness of Breath PENICILLINS 01/09/2005 4 - Hives Comments: Allergy skin tests to penicillin were negative. The patient took a test dose of amoxicillin and tolerated this without adverse reaction. The patient is at low risk for a severe, immediate, IgE-mediated reaction to penicillin, amoxicillin and other penicillin-type antibiotics. Skin tests are unreliable for predicting delayed reactions. TORADOL (KETOROLAC TROMETHAMINE) 04/06/2011 7 - Swelling ULTRAM (TRAMADOL HCL) 07/25/2005 14 - Other: See Comments Comments: chest pains VANCOMYCIN 01/21/2015 14 - Other: See Comments Comments: Wheezing after taking, legs swollen and tongue swelling and scratchy neck VENLAFAXINE 07/09/2011 8 - GI Upset ZITHROMAX (AZITHROMYCIN) 01/19/2005 9 - Itching MIRTAZAPINE 11/17/2013 14 - Other: See Comments Comments: Hand shakes. Date Reviewed: 06/18/2024 Reviewed by: Mary Lou Nicholson MD - Fully Assessed Visit Diagnosis:Encounter for screening mammogram for breast cancer [Z12.31] Order(s):AMOS SCREENING W BOOKER [[id number]] Order #: [id number] FUTURE Prescriptions as of 09/18/2024 - clonazePAM (KLONOPIN) 0.5 mg tablet Take 1 tablet by mouth two times a day for 90 days. - Nebulizer Accessories kit 1 Kit as needed. - nystatin (MYCOSTATIN) 100,000 unit/mL suspension Take 5 mL by mouth four times daily. 1tsp swish in mouth for several minutes, then swallow (or expectorate) 4 times daily until gone. - budesonide-formoterol (SYMBICORT) 160-4.5 mcg/actuation inhaler Inhale 2 Puffs as instructed two times a day. - albuterol HFA (VENTOLIN HFA) 90 mcg/actuation inhaler Inhale 2 Puffs as instructed every 4 hours as needed for wheezing/shortness of breath. - montelukast (SINGULAIR) 10 mg tablet Take 1 tablet by mouth daily at bedtime. - lansoprazole (PREVACID) 30 mg capsule Take 1 capsule by mouth once daily. - simvastatin (ZOCOR) 40 mg tablet Take 1 tablet by mouth daily at bedtime. - sucralfate (CARAFATE) 1 gram tablet Take 1 tablet by mouth before meals and at bedtime. - Estradiol (ESTRACE) 0.5 mg tablet Take 1 tablet by mouth once daily. - imipramine HCl (TOFRANIL) 25 mg tablet Take 2 tablets by mouth daily at bedtime. - fexofenadine (NAN) 180 mg tablet Take 1 tablet by mouth once daily. - GEMTESA 75 mg tablet Take 1 tablet by mouth every afternoon. - Albuterol Sulfate 1.25 mg/3 mL nebulizer solution Use 1 Ampule via nebulizer every 6 hours as needed for wheezing/shortness of breath. - ipratropium (ATROVENT) 0.02 % nebulizer solution Use 2.5 mL via nebulizer four times daily as needed for wheezing/shortness of breath. - calcium carb/vit D2/minerals (CALTRATE PLUS ORAL) Take 1 capsule by mouth once daily. - fluticasone (FLONASE) 50 mcg/actuation nasal spray Use 1 Meraux in each nostril twice daily. VIA SPACER THEN RINSE AND GARGLE MOUTH WITH WATER. - LOPERAMIDE HCL (IMODIUM ORAL) Take by mouth as needed. - vit e acetate/gly/dimeth/water(CETAPHIL MOISTURIZING LOTION) apply twice daily Problem List As Of Date 08/18/2024 Noted (more content not included)...[facility]03-17-2025 Procedure note [facility] Medical Records Department [address] [place] [address] Operative Report 07/20/24 1221 MR#: [id number] Acct: [id number] Name: CHEY JEFFERS Rep #:[id number] : 1960 63 From: Aryan Bianchi MD PCP: Dr. Edda Oconnor MD Status:[facility] Location: [place] [address] Operative Report (Standard) Operative Information Date of Procedure: 07/20/24 Pre-Operative Diagnosis: Lumbosacral radiculopathy, lumbosacral degenerative disc disease, lumbosacral spinal stenosis Post-Operative Diagnosis: Lumbosacral radiculopathy, lumbosacral degenerative disc disease, lumbosacral spinal stenosis Surgery/Procedure Performed: Diagnostic/therapeutic caudal epidural steroid injection under fluoroscopic guidance manager channel: No Type of Anesthesia: Local RN Documented Start/Stop Times: Operation Date: 07/20/24 12:20 Case Time Into Pre-Op 07/20/24 10:57 Anesthesia Start 07/20/24 12:12 Into Room 07/20/24 12:12 Procedure Start 07/20/24 12:17 Procedure End 07/20/24 12:21 Procedure Start Time: 12:21 Procedure Stop Time: 12:21 Select all DRAINS/GRAFTS/IMPLANTS that apply: None Estimated Blood Loss: 0 Specimen collected: No Description of surgery: PROCEDURE PERFORMED: Diagnostic/therapeutic caudal epidural steroid injection under fluoroscopic guidance ANESTHESIA: Local BLOOD LOSS: Minimal. COMPLICATIONS: None. DESCRIPTION OF PROCEDURE: History and physical of today was reviewed. Risks and benefits of the procedure were explained. The patient understood and agreedto proceed. Informed consent was obtained. IV inserted per routine protocol. The patient was taken to the operating room and placed in the proneposition with a pillow positioned underneath the abdomen. The lower back and tailbone area was prepped and draped in a sterile fashion using iodine x3. Under fluoroscopy guidance on a lateral view, the caudal space was identified. The skin and subcutaneous tissue was anesthetized with approximately3 mL of 1% lidocaine using a 25-gauge regular needle. Under direct visualization with fluoroscopy, u sing a 22-gauge 3-1/2-inch spinal needle, the needle was advanced via the skin through the sacral hiatus. The tip of the needle was passed through the sacrococcygeal ligament and advanced to approximately S4 area. After negative aspiration of blood or CSF, a total of 3 mL of contrast was injected to confirm correct placement of the needle as well as cephalad spread. The spread was followed to approximately L5 area. After confirmation on AP as well as lateral view and repeated negative aspiration, a total of 15 mL of preservative-free 0.125% Marcaine with 80 mg of Depo-Medrol was injected easily. The needle was then removed intact. The patient experienced no sign or symptoms of intrathecal or intravascular injection. The patient experienced no paresthesia. The procedure was completed without any apparent difficulty or anycomplications. The patient appeared to tolerate it well. ASSESSMENT AND PLAN: This is a 63-year-old female with lumbosacral radiculopathy, lumbosacral degenerative disc disease,lumbosacral spinal stenosis status post diagnostic/therapeutic caudal epidural steroid injection, patient will continue her current medications, patient will follow-up in approximately 1 to 2 weeks fo r reevaluation. Surgical Findings: 0 Complications Complications: No Admit VTE Documentation VTE Present on Admission: No VTE Mechan Device Prophylaxis: None VTE Pharm Prophylaxis ordered?: No 07/20/24 1223 Cosigner Signature (if applicable): CC: Dr. Aryan Bianchi MD; Dr. Edda Oconnor MD~ Signed [facility]02-13-2025 History of Present illness Narrative* Mary Lou Nicholson MD - 06/18/2024 11:45 AM EST Images from the original note were not included. . [facility] Note Patient name: Chey Jeffers PCP: Edda Oconnor MD CC: Follow-up asthma HPI: Chey Jeffers 63 year old female non-smoker with PMH significant for ankylosing spondylitis, depression, GERD, nasal polyps, recurrent sinusitis and asthma. Current therapy with Symbicort and albuterol. She was being considered for Dupixent therapy but refused to go back to allergy clinic andnot interested in injections. She has had persistently elevated Al. Was on high dose Advair but couldn't afford and felt better on Symbicort so currently back to using Symbicort. Exhaled nitric oxide is better but still high. She has been more short of breath with ambulation. More recently requiring use of her albuterol due to wheezing. She has had some recent sinus congestion with drainage and sore throat. No significant cough or sputum production. She states that she may have had COVID back in April. DATA: ASTHMA CONTROL TEST Date: 06/18/2024 In the last 4 weeks, how much of the time did your asthma keep you from getting as much done at work or home that you wanted to do? None of the time (5) In the last 4 weeks, how often have you had shortness of breath? Not at all (5) In the last 4 weeks, how often did your asthma symptoms (wheezing, coughing, shortness of breath, chest tightness or pain) wake you up at night or earlier than usual? Not at all (5) In the last 4 weeks, how often have you used your rescue inhaler or nebulizer medication (such as Albuterol, Proventil, Ventolin, Maxair, Xoponex, or Primatene Mist)? 1 or 2 times per day (2) In the last 4 weeks, how would you rate your asthma control? Well controlled (4) Total: more than 20 SERVICE DATE: 06/18/2024 SERVICE TIME: 11:41 AM Oral Exhaled Nitric Oxide measurement: 52.0 (ppb) (A) Oral Exhaled Nitric Oxide measurement (Previous Encounters) Test Date Oral Exhaled Nitric Oxide (ppb) 03/24/2024 114.0 (A) 01/17/2024 88.0 (A) 12/03/2022 49.0 (A) 06/04/2022 95.0 (A) 08/17/2021 109.0 (A) 12/21/2019 216.0 (A) PAST MEDICAL HISTORY Diagnosis Date Abnormal ultrasound of breast 06/17/2013 Acute gastritis Ankylosing spondylitis (HCC) Anxiety and depression 06/12/2005 Asthma Bilateral renal cysts 03/11/2015 Calculus of kidney Dysthymic disorder Depression (non-psychotic) Enterocolitis due to Clostridium difficile 01/12/2015 Esophageal reflux HNP (herniated nucleus pulposus), lumbar 08/22/2011 Intrinsic asthma, unspecified 08/05/2008 Irritable bowel syndrome Irritable bowel FCI 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 01/16/2017 Menopause syndrome 01/19/2005 Myalgia and myositis, unspecified Nasal polyposis Polypectomy 03/2017 Dr. Mazariegos [facility]. Pure hypercholesterolemia Serrated adenoma of colon 07/29/2014 Symptomatic menopausal or female climacteric states Unspecified sinusitis (chronic) 06/21/2008 ALLERGIES Allergen Reactions Amoxicillin Rash Rash a few days into a course of treatment. Noted that had not reacted to test dose penicillin but developed rash after a few days on amoxicillin. Aspirin [Salicylate* Swelling, Shortness of Breath wheezing,swelling lips,rash,hives Codeine Hives Vicodin [Hydrocodon* Hives Cefdinir Itching Itchy scaly rash. (Patient may take penicillin and other penicillin type antibiotics. See allergyvisit on 01/08/23) Demerol [Meperidine* Rash Tylenol [Acetaminop* Intolerance, Shortness of Breath asthma; makes it hard for her to breathe Ambien [Zolpidem] Intolerance Was sleepwalking (arranging books [...] tests are unreliable for predicting delayed reactions. Toradol [Ketorolac * Swelling Ultram [Tramadol Hc* Other: See Comments chest pains Vancomycin Other: See Comments Wheezing after taking, legs swollen and tongue swelling and scratchy neck Venlafaxine GI Upset Zithromax [Azithrom* Itching Mirtazapine Other: See Comments Hand shakes. nystatin (MYCOSTATIN) 100,000 unit/mL suspension Take 5 mL by mouth four times daily. 1tsp swish inmouth for several minutes, then swallow (or expectorate) 4 times daily until gone. clonazePAM (KLONOPIN) 0.5 mg tablet Take 1 tablet by mouth two times a day for 90 days. Patient should start on May 15, 2024. budesonide-formoterol (SYMBICORT) 160-4.5 mcg/actuation inhaler Inhale 2 Puffs as instructed two times a day. albuterol HFA (VENTOLIN HFA) 90 mcg/actuation inhaler Inhale 2 Puffs as instructed every 4 hours asneeded for wheezing/shortness of breath. montelukast (SINGULAIR) 10 mg tablet Take 1 tablet by mouth daily at bedtime. lansoprazole (PREVACID) 30 mg capsule Take 1 capsule by mouth once daily. simvastatin (ZOCOR) 40 mg tablet Take 1 tablet by mouth daily at bedtime. sucralfate (CARAFATE) 1 gram tablet Take 1 tablet by mouth before meals and at bedtime. Estradiol (ESTRACE) 0.5 mg tablet Take 1 tablet by mouth once daily. imipramine HCl (TOFRANIL) 25 mg tablet Take 2 tablets by mouth daily at bedtime. fexofenadine (NAN) 180 mg tablet Take 1 tablet by mouth once daily. GEMTESA 75 mg tablet Take 1 tablet by mouth every afternoon. Albuterol Sulfate 1.25 mg/3 mL nebulizer solution Use 1 Ampule via nebulizer every 6 hours as needed for wheezing/shortness of breath. ipratropium (ATROVENT) 0.02 % nebulizer solution Use 2.5 mL via nebulizer four times daily as needed for wheezing/shortness of breath. calcium carb/vit D2/minerals (CALTRATE PLUS ORAL) Take 1 capsule by mouth once daily. fluticasone (FLONASE) 50 mcg/actuation nasal spray Use 1 Meraux in each nostril twice daily. VIA SPACER THEN RINSE AND GARGLE MOUTH WITH WATER. LOPERAMIDE HCL (IMODIUM ORAL) Take by mouth as needed. vit e acetate/gly/dimeth/water(CETAPHIL MOISTURIZING LOTION) apply twice daily Social History Tobacco Use Smoking status: Never Smokeless tobacco: Never Tobacco comments: ETS from parents in childhood home. Currently also has some household ETS. 03/17/2018. Vaping Use Vaping status: Never Used Substance Use Topics Alcohol use: Not Currently Drug use: No PMH, Social history, family history and surgical history reviewed and updated in EMR REVIEW OF SYSTEMS: CONSTITUTIONAL: No fevers, chills, nightsweats, unintended weight loss HEENT: Positive nasal congestion/sinus symptoms, allergy problems. Sore throat CARDIOVASCULAR: No palpitations, edema. PULM: See HPI GI: No GERD NEURO: Left leg paresthesias MUSC-SKEL: Back pain INTEGUMENTARY: No new skin changes PHYSICAL EXAMINATION: BP 122/84 Pulse 105 Resp 16 Wt 143 lb (64.9kg) SpO2 98% General Appearance: Age appropriate, NAD. Skin: Skin color, texture, turgor normal, no suspicious rashes or lesions. Head: Normocephalic, no masses, lesions, tenderness or abnormalities. Oropharynx: Upper plate, thrush. Lungs: Not labored, no wheezes or crackles. Heart: RRR, no murmur. Extremities: No edema, no clubbing. Assessment/Plan: Severe persistent asthma, uncomplicated -Believe patient would be an excellent candidate for biologic therapy but she is reluctant to proceed -Continue Symbicort for now with as needed albuterol -Repeat exhaled nitric oxide level at next Thrush -Likely due to her inhaled corticosteroid and recent use of oral steroids for her back pain -Oral hygiene -Patient already has nystatin swish and swallow at home for treatment Multiple allergies -Continue Singulair, antihistamines. Patient follows with ENT -Should consider Dupixent or other biologic therapy Mary Lou Nicholson MD [facility] NoteHNO ID: [id number] Author: MARY LOU NICHOLSON MD Service: ? Author Type: Physician Type: Progress Notes Filed: 06/18/2024 12:33 Note Text: . [facility] Note Patient name: Chey Jeffers PCP: Edda Oconnor MD CC: Follow-up asthma HPI: Chey Jeffers 63 year old female non-smoker with PMH significant for ankylosing spondylitis, depression, GERD, nasal polyps, recurrent sinusitis and asthma. Current therapy with Symbicort and albuterol. She was being considered for Dupixent therapy but refused to go back to allergy clinic and not interested in injections. She has had persistently elevated Al. Was on high dose Advair but couldn't afford and felt better on Symbicort so currently back to using Symbicort. Exhaled nitric oxide is better but still high. She has been more short of breath with ambulation. More recently requiring use of her albuterol due to wheezing. She has had some recent sinus congestion with drainage and sore throat. No significant cough or sputum production. She states that she may have had COVID back in April. DATA: ASTHMA CONTROL TEST Date: 06/18/2024 In the last 4 weeks, how much of the time did your asthma keep you from getting as much done at work or home that you wanted to do? None of the time (5) In the last 4 weeks, how often have you had shortness of breath? Not at all (5) In the last 4 weeks, how often did your asthma symptoms (wheezing, coughing, shortness of breath, chest tightness or pain) wake you up at night or earlier than usual? Not at all (5) In the last 4 weeks, how often have you used your rescue inhaler or nebulizer medication (such as Albuterol, Proventil, Ventolin, Maxair, Xoponex, or Primatene Mist)? 1 or 2 times per day (2) In the last 4 weeks, how would you rate your asthma control? Well controlled (4) Total: more than 20 SERVICE DATE: 06/18/2024 SERVICE TIME: 11:41 AM Oral Exhaled Nitric Oxide measurement: 52.0 (ppb) (A) Oral Exhaled Nitric Oxide measurement (Previous Encounters) Test Date Oral Exhaled Nitric Oxide (ppb) 03/24/2024 114.0 (A) 01/17/2024 88.0 (A) 12/03/2022 49.0 (A) 06/04/2022 95.0 (A) 08/17/2021 109.0 (A) 12/21/2019 216.0 (A) PAST MEDICAL HISTORY Diagnosis Date Abnormal ultrasound of breast 06/17/2013 Acute gastritis Ankylosing spondylitis (HCC) Anxiety and depression 06/12/2005 Asthma Bilateral renal cysts 03/11/2015 Calculus of kidney Dysthymic disorder Depression (non-psychotic) Enterocolitis due to Clostridium difficile 01/12/2015 Esophageal reflux HNP (herniated nucleus pulposus), lumbar 08/22/2011 Intrinsic asthma, unspecified 08/05/2008 Irritable bowel syndrome Irritable bowel FCI 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 01/16/2017 Menopause syndrome 01/19/2005 Myalgia and myositis, unspecified Nasal polyposis Polypectomy 03/2017 Dr. Mazariegos [facility]. Pure hypercholesterolemia Serrated adenoma of colon 07/29/2014 Symptomatic menopausal or female climacteric states Unspecified sinusitis (chronic) 06/21/2008 ALLERGIES Allergen Reactions Amoxicillin Rash Rash a few days into a course of treatment. Noted that had not reacted to test dose penicillin but developed rash after a few days on amoxicillin. Aspirin [Salicylate* Swelling, Shortness of Breath wheezing,swelling lips,rash,hives Codeine Hives Vicodin [Hydrocodon* Hives Cefdinir Itching Itchy scaly rash. (Patient may take penicillin and other penicillin type antibiotics. See allergy visit on 01/08/23) Demerol [Meperidine* Rash Tylenol [Acetaminop* Intolerance, Shortness of Breath asthma; makes it hard for her to breathe Ambien [Zolpidem] Intolerance Was sleepwalking (arranging books [...] tests are unreliable for predicting delayed reactions. Toradol [Ketorolac * Swelling Ultram [Tramadol Hc* Other: See Comments chest pains Vancomycin Other: See Comments Wheezing after taking, legs swollen and tongue swelling and scratchy neck Venlafaxine GI Upset Zithromax [Azithrom* Itching Mirtazapine Other: See Comments Hand shakes. nystatin (MYCOSTATIN) 100,000 unit/mL suspension Take 5 mL by mouth four times daily. 1tsp swish in mouth for (more content not included)...[facility]02-13-2025 NoteHNO ID: [id number] Author: OFE RUFF RPFT Service: ? Author Type: Respiratory Therapist Type: Procedures Filed: 06/18/2024 11:41 Note Text: RESPIRATORY THERAPY ORAL EXHALED NITRIC OXIDE SERVICE DATE: 06/18/2024 SERVICE TIME: 11:41 AM Oral Exhaled Nitric Oxide measurement: 52.0 (ppb) (A) Normal: Adult <25 ppb, pediatric (<12 years) <20 ppb High Normal / Increased: Adult 25-50 ppb, pediatric (<12 years) 20-35 ppb Moderately raised exhaled Nitric Oxide may indicate underlying inflammation, but note that: Cold and influenza can raise exhaled Nitric Oxide and some patients have higher baseline exhaled Nitric Oxide levels than others. High: Adult >50 ppb, pediatric (<12 years) >35 ppb Indicative of ongoing eosinophilic inflammation. Symptomatic patient likely to respond to steroids. Possible causes (if already on steroids): Poor compliance, recent allergen exposure, steroid dose inadequate, and steroid resistance. Note that not all patients with high exhaled nitric oxide levels display symptoms. Oral Exhaled Nitric Oxide measurement (Previous Encounters) Test Date Oral Exhaled Nitric Oxide (ppb) 06/18/2024 52.0 (A) 03/24/2024 114.0 (A) 01/17/2024 88.0 (A) 12/03/2022 49.0 (A) 06/04/2022 95.0 (A) 08/17/2021 109.0 (A) 12/21/2019 216.0 (A) NAME: Ofe LA Ruff PATIENT NAME: Chey Jeffers DATE: June 18, 2024 TIME: 11:41 [facility]02-13-2025 Procedure note* Ofe RuffLA - 06/18/2024 11:41 AM ESTAssociated Order(s): NITRIC OXIDE, EXHALED RESPIRATORY THERAPY ORAL EXHALED NITRIC OXIDE SERVICE DATE: 06/18/2024 SERVICE TIME: 11:41 AM Oral Exhaled Nitric Oxide measurement: 52.0 (ppb) (A) Normal: Adult <25 ppb, pediatric (<12 years) <20 ppb High Normal / Increased: Adult 25-50 ppb, pediatric (<12 years) 20-35 ppb Moderately raised exhaled Nitric Oxide may indicate underlying inflammation, but note that: Cold and influenza can raise exhaled Nitric Oxide and some patients have higher baseline exhaled Nitric Oxide levels than others. High: Adult >50 ppb, pediatric (<12 years) >35 ppb Indicative of ongoing eosinophilic inflammation. Symptomatic patient likely to respond to steroids. Possible causes (if already on steroids): Poor compliance, recent allergen exposure, steroid dose inadequate, and steroid resistance. Note that not all patients with high exhaled nitric oxide levels display symptoms. Oral Exhaled Nitric Oxide measurement (Previous Encounters) Test Date Oral Exhaled Nitric Oxide (ppb) 06/18/2024 52.0 (A) 03/24/2024 114.0 (A) 01/17/2024 88.0 (A) 12/03/2022 49.0 (A) 06/04/2022 95.0 (A) 08/17/2021 109.0 (A) 12/21/2019 216.0 (A) NAME: LA Goddard PATIENT NAME: Chey Jeffers DATE: June 18, 2024 TIME: 11:41 AM [facility]02-13-2025 Procedure note* Ofe Ruff RPFT - 06/18/2024 11:41 AM ESTAssociated Order(s): NITRIC OXIDE, EXHALED RESPIRATORY THERAPY ORAL EXHALED NITRIC OXIDE SERVICE DATE: 06/18/2024 SERVICE TIME: 11:41 AM Oral Exhaled Nitric Oxide measurement: 52.0 (ppb) (A) Normal: Adult <25 ppb, pediatric (<12 years) <20 ppb High Normal / Increased: Adult 25-50 ppb, pediatric (<12 years) 20-35 ppb Moderately raised exhaled Nitric Oxide may indicate underlying inflammation, but note that: Cold and influenza can raise exhaled Nitric Oxide and some patients have higher baseline exhaled Nitric Oxide levels than others. High: Adult >50 ppb, pediatric (<12 years) >35 ppb Indicative of ongoing eosinophilic inflammation. Symptomatic patient likely to respond to steroids. Possible causes (if already on steroids): Poor compliance, recent allergen exposure, steroid dose inadequate, and steroid resistance. Note that not all patients with high exhaled nitric oxide levels display symptoms. Oral Exhaled Nitric Oxide measurement (Previous Encounters) Test Date Oral Exhaled Nitric Oxide (ppb) 06/18/2024 52.0 (A) 03/24/2024 114.0 (A) 01/17/2024 88.0 (A) 12/03/2022 49.0 (A) 06/04/2022 95.0 (A) 08/17/2021 109.0 (A) 12/21/2019 216.0 (A) NAME: LA Goddard PATIENT NAME: Chey Jeffers DATE: June 18, 2024 TIME: 11:41 AM documented in this encounterW[facility] NoteHNO ID: [id number] Author: OFE RUFF RPFT Service: ? Author Type: Respiratory Therapist Type: Progress Notes Filed: 06/18/2024 11:41 Note Text: PULM FUNCTION: Provider: Mary Lou Nicholson MD Assisting Tech: Petabe Ofe, RPFT [facility] History of Present illness Narrative* Ofe Ruff RPFT - 06/18/2024 11:32 AM EST PULM FUNCTION: Provider: Mary Lou Nicholson MD Assisting Tech: Petabe, Ofe, RPFT Exhaled Nitric Oxide: 1 documented in this encounterW[facility] Telephone encounter Note * Telephone Encounter - Ashanti Burt RN - 05/26/2024 10:29 AM EST Patient requesting her Pain Mgmt referral order, OV notes and demographic information be faxed to Dr. Bianchi's office in [place]. Faxed as requested to [phone]. Ashanti Burt RN [facility]01-21-2025 Miscellaneous Notes* Telephone Encounter - Ashanti Burt RN - 05/26/2024 10:29 AM EST Patient requesting her Pain Mgmt referral order, OV notes and demographic information be faxed to Dr. Bianchi's office in [place]. Faxed as requested to [phone]. Ashanti Burt RN documented in this encounterW[facility]umed[facility]01-06-2025 NoteHNO ID: [id number] Author: CHECO BELL MD Service: ? Author Type: Physician Type: Progress Notes Filed: 05/11/2024 15:41 Note Text: Patient presents with: Nasal Congestion: drainage, cough, right ear pain and sore throat x 2 weeks HPI: Feeling sick since 04/27. Treated by her PCP for URI 05/04/24 for URI with medrol pack. The majority of her symptoms have improved. Her mother was diagnosed with COVID 05/04 and is in the hospital and being treated for heart failure. Positive symptoms: Cough, Sore throat, Nasal Congestion, Wheezing, decreased sense of smell Negative symptoms: Fever, OTC: finishing medrol MEDICATIONS: Current Outpatient Medications Medication Sig [START ON 05/15/2024] clonazePAM (KLONOPIN) 0.5 mg tablet Take 1 tablet by mouth two times a day for 90 days. Patient should start on May 15, 2024. budesonide-formoterol (SYMBICORT) 160-4.5 mcg/actuation inhaler Inhale 2 Puffs as instructed two times a day. albuterol HFA (VENTOLIN HFA) 90 mcg/actuation inhaler Inhale 2 Puffs as instructed every 4 hours as needed for wheezing/shortness of breath. montelukast (SINGULAIR) 10 mg tablet Take 1 tablet by mouth daily at bedtime. lansoprazole (PREVACID) 30 mg capsule Take 1 capsule by mouth once daily. simvastatin (ZOCOR) 40 mg tablet Take 1 tablet by mouth daily at bedtime. sucralfate (CARAFATE) 1 gram tablet Take 1 tablet by mouth before meals and at bedtime. Estradiol (ESTRACE) 0.5 mg tablet Take 1 tablet by mouth once daily. imipramine HCl (TOFRANIL) 25 mg tablet Take 2 tablets by mouth daily at bedtime. fexofenadine (NAN) 180 mg tablet Take 1 tablet by mouth once daily. GEMTESA 75 mg tablet Take 1 tablet by mouth every afternoon. Albuterol Sulfate 1.25 mg/3 mL nebulizer solution Use 1 Ampule via nebulizer every 6 hours as needed for wheezing/shortness of breath. ipratropium (ATROVENT) 0.02 % nebulizer solution Use 2.5 mL via nebulizer four times daily as needed for wheezing/shortness of breath. calcium carb/vit D2/minerals (CALTRATE PLUS ORAL) Take 1 capsule by mouth once daily. fluticasone (FLONASE) 50 mcg/actuation nasal spray Use 1 Meraux in each nostril twice daily. VIA SPACER THEN RINSE AND GARGLE MOUTH WITH WATER. LOPERAMIDE HCL (IMODIUM ORAL) Take by mouth as needed. vit e acetate/gly/dimeth/water(CETAPHIL MOISTURIZING LOTION) apply twice daily No current facility-administered medications for this visit. ALLERGIES: ALLERGIES Allergen Reactions Amoxicillin Rash Rash a few days into a course of treatment. Noted that had not reacted to test dose penicillin but developed rash after a few days on amoxicillin. Aspirin [Salicylate* Swelling, Shortness of Breath wheezing,swelling lips,rash,hives Codeine Hives Vicodin [Hydrocodon* Hives Cefdinir Itching Itchy scaly rash. (Patient may take penicillin and other penicillin type antibiotics. See allergy visit on 01/08/23) Demerol [Meperidine* Rash Tylenol [Acetaminop* Intolerance, Shortness of Breath asthma; makes it hard for her to breathe Ambien [Zolpidem] Intolerance Was sleepwalking (arranging books [...] tests are unreliable for predicting delayed reactions. Toradol [Ketorolac * Swelling Ultram [Tramadol Hc* Other: See Comments chest pains Vancomycin Other: See Comments Wheezing after taking, legs swollen and tongue swelling and scratchy neck Venlafaxine GI Upset Zithromax [Azithrom* Itching Mirtazapine Other: See Comments Hand shakes. VITALS: BP 110/68 Pulse 110 Temp 36.5 ?C (97.7 ?F) Resp 16 Wt 67 kg (147 lb 11.3 oz) SpO2 97% BMI 28.85 kg/m? PHYSICAL EXAM: GEN: Pleasant, in no acute distress. HEENT: PERRL, EOMI, conjunctiva clear Ears: canals clear. TMs without erythema, bulge, or effusion Sinuses: non-tender frontal sinus, non-tender maxillary sinuses Throat: moist mucous membranes, mild erythema, patches on soft palate and posterior pharynx Neck: supple, no thyromegaly, no lymphadenopathy HEART: regular rate, regular rhythm, no murmurs LUNGS: bilateral expiratory wheezes, no crackles, no increased WOB ASSESSMENT/PLAN: 1. URI, acute - ICD9: 465.9, ICD10: J06.9 (primary diagnosis) 2. Exposure to confirmed (more content not included)...[facility]01-06-2025 History of Present illness Narrative* Checo Bell MD - 05/11/2024 3:12 PM EST Patient presents with: Nasal Congestion: drainage, cough, right ear pain and sore throat x 2 weeks HPI: Feeling sick since 04/27. Treated by her PCP for URI 05/04/24 for URI with medrol pack. The majority of her symptoms have improved. Her mother was diagnosed with COVID 05/04 and is in the hospital and being treated for heart failure. Positive symptoms: Cough, Sore throat, Nasal Congestion, Wheezing, decreased sense of smell Negative symptoms: Fever, OTC: finishing medrol MEDICATIONS: Current Outpatient Medications Medication Sig [START ON 05/15/2024] clonazePAM (KLONOPIN) 0.5 mg tablet Take 1 tablet by mouth two times a day for90 days. Patient should start on May 15, 2024. budesonide-formoterol (SYMBICORT) 160-4.5 mcg/actuation inhaler Inhale 2 Puffs as instructed two times a day. albuterol HFA (VENTOLIN HFA) 90 mcg/actuation inhaler Inhale 2 Puffs as instructed every 4 hours asneeded for wheezing/shortness of breath. montelukast (SINGULAIR) 10 mg tablet Take 1 tablet by mouth daily at bedtime. lansoprazole (PREVACID) 30 mg capsule Take 1 capsule by mouth once daily. simvastatin (ZOCOR) 40 mg tablet Take 1 tablet by mouth daily at bedtime. sucralfate (CARAFATE) 1 gram tablet Take 1 tablet by mouth before meals and at bedtime. Estradiol (ESTRACE) 0.5 mg tablet Take 1 tablet by mouth once daily. imipramine HCl (TOFRANIL) 25 mg tablet Take 2 tablets by mouth daily at bedtime. fexofenadine (NAN) 180 mg tablet Take 1 tablet by mouth once daily. GEMTESA 75 mg tablet Take 1 tablet by mouth every afternoon. Albuterol Sulfate 1.25 mg/3 mL nebulizer solution Use 1 Ampule via nebulizer every 6 hours as needed for wheezing/shortness of breath. ipratropium (ATROVENT) 0.02 % nebulizer solution Use 2.5 mL via nebulizer four times daily as needed for wheezing/shortness of breath. calcium carb/vit D2/minerals (CALTRATE PLUS ORAL) Take 1 capsule by mouth once daily. fluticasone (FLONASE) 50 mcg/actuation nasal spray Use 1 Meraux in each nostril twice daily. VIA SPACER THEN RINSE AND GARGLE MOUTH WITH WATER. LOPERAMIDE HCL (IMODIUM ORAL) Take by mouth as needed. vit e acetate/gly/dimeth/water(CETAPHIL MOISTURIZING LOTION) apply twice daily No current facility-administered medications for this visit. ALLERGIES: ALLERGIES Allergen Reactions Amoxicillin Rash Rash a few days into a course of treatment. Noted that had not reacted to test dose penicillin but developed rash after a few days on amoxicillin. Aspirin [Salicylate* Swelling, Shortness of Breath wheezing,swelling lips,rash,hives Codeine Hives Vicodin [Hydrocodon* Hives Cefdinir Itching Itchy scaly rash. (Patient may take penicillin and other penicillin type antibiotics. See allergyvisit on 01/08/23) Demerol [Meperidine* Rash Tylenol [Acetaminop* Intolerance, Shortness of Breath asthma; makes it hard for her to breathe Ambien [Zolpidem] Intolerance Was sleepwalking (arranging books [...] tests are unreliable for predicting delayed reactions. Toradol [Ketorolac * Swelling Ultram [Tramadol Hc* Other: See Comments chest pains Vancomycin Other: See Comments Wheezing after taking, legs swollen and tongue swelling and scratchy neck Venlafaxine GI Upset Zithromax [Azithrom* Itching Mirtazapine Other: See Comments Hand shakes. VITALS: BP 110/68 Pulse 110 Temp 36.5 C (97.7 F) Resp 16 Wt 67 kg (147 lb 11.3 oz) SpO2 97% BMI28.85 kg/m PHYSICAL EXAM: GEN: Pleasant, in no acute distress. HEENT: PERRL, EOMI, conjunctiva clear Ears: canals clear. TMs without erythema, bulge, or effusion Sinuses: non-tender frontal sinus, non-tender maxillary sinuses Throat: moist mucous membranes, mild erythema, patches on soft palate and posterior pharynx Neck: supple, no thyromegaly, no lymphadenopathy HEART: regular rate, regular rhythm, no murmurs LUNGS: bilateral expiratory wheezes, no crackles, no increased WOB ASSESSMENT/PLAN: 1. URI, acute - ICD9: 465.9, ICD10: J06.9 (primary diagnosis) 2. Exposure to confirmed case of COVID-19 - ICD9: V01.79, ICD10: Z20.822 - probable COVID-19 starting 2 weeks ago with improving or resolved symptoms. She is well beyond the typical contagious stage. - Discussed supportive care treatment with home isolation (fever free for 24 hours and improving symptoms plus 5 days masking), rest, cold medicine, and analgesia. - Red flags to seek further treatment include chest pain, shortness of breath, and lethargy; in theER if severe. 3. Thrush - ICD9: 112.0, ICD10: B37.0 4. Asthma with chronic obstructive pulmonary disease (COPD) ([facility]) - ICD9: 493.20, ICD10: J44.89 Finish steroid, use inhalers. Start - NYSTATIN 100,000 UNIT/ML ORAL SUSPENSION Checo Bell MD documented in this encounterW[facility]20[facility] Instructions* Patient Instructions* Edda Oconnor MD - 05/04/2024 9:59 AM EST - Start Medrol Dosepak as prescribed to reduce inflammation. - Use Flonase as needed for nasal congestion. - Continue using Symbicort and albuterol as prescribed. - Drink plenty of water to stay hydrated and help thin mucus. - Follow up with Dr. Lawrence if symptoms do not improve with Medrol. - Schedule an appointment with Dr. Watts for pain management. - Monitor blood sugar levels and maintain a healthy diet to manage diabetes. - Next appointment is on May 15. documented in this encounterWvumed[facility]2024 NoteHNO ID: [id number] Author: EDDA OCNONOR MD Service: ? Author Type: Physician Type: Progress Notes Filed: 05/04/2024 10:03 Note Text: This note was created using [employer]. Subjective Chey Jeffers is a 63 year old female. Patient presents with: F/U 6 months: Labs prior SUBJECTIVE: Chey Jeffers is a 63 year old year old lady here today for 6 month follow up appointment for review of medical conditions Chey Jeffers is a 63-year-old female with a history of asthma, COPD, and chronic back pain, presenting with acute URI symptoms and exacerbation of chronic back pain. Chey reports the onset of URI symptoms around 04/27, including severe cephalalgia described as a head in a vice, odynophagia, and right otalgia described as a sharp, stabbing pain. She also experiences nasal congestion, anosmia, and ageusia, with associated cough producing thick white sputum. She denies known exposure to COVID-19. She reports intermittent fevers and chills but has not been able to confirm due to a malfunctioning thermometer. She has a history of recurrent sinus infections and was treated with a steroid taper in March, which provided relief. She is currently using Symbicort, albuterol, and a nebulizer for her asthma and COPD but skipped Symbicort for 2 days due to severe pharyngitis. Chey also reports exacerbation of chronic back pain, which she describes as unbearable and affecting her sleep. She was evaluated at the hospital on 04/04 and expected a cortisone injection and MRI, but only an x-ray was performed. She reports severe pain radiating to her left buttock, groin, and leg, with associated numbness in her left foot. The pain worsens when lying down and affects her mobility. She has not received follow-up from the initial evaluation and is seeking further management. She denies constipation. She has a history of allergies to multiple antibiotics, including penicillin, which caused a severe rash and hives in January. She reports that Levaquin is the only antibiotic she can tolerate. She is also taking clonazepam, which is due for a refill on 05/15. She reports increased blood glucose levels, which she attributes to acute illness and stress-related dietary changes. She plans to reduce sodium intake after the New Year. . PAST MEDICAL HISTORY Diagnosis Date Abnormal ultrasound of breast 06/17/2013 Acute gastritis Ankylosing spondylitis (HCC) Anxiety and depression 06/12/2005 Asthma Bilateral renal cysts 03/11/2015 Calculus of kidney Dysthymic disorder Depression (non-psychotic) Enterocolitis due to Clostridium difficile 01/12/2015 Esophageal reflux HNP (herniated nucleus pulposus), lumbar 08/22/2011 Intrinsic asthma, unspecified 08/05/2008 Irritable bowel syndrome 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 Mazariegos [facility]. Pure hypercholesterolemia Serrated adenoma of colon 07/29/2014 Symptomatic menopausal or female climacteric states Unspecified sinusitis (chronic) 06/21/2008 Current Outpatient Medications Medication Sig budesonide-formoterol (SYMBICORT) 160-4.5 mcg/actuation inhaler Inhale 2 Puffs as instructed two times a day. clonazePAM (KLONOPIN) 0.5 mg tablet Take 1 tablet by mouth two times a day for 90 days. albuterol HFA (VENTOLIN HFA) 90 mcg/actuation inhaler Inhale 2 Puffs as instructed every 4 hours as needed for wheezing/shortness of breath. montelukast (SINGULAIR) 10 mg tablet Take 1 tablet by mouth daily at bedtime. lansoprazole (PREVACID) 30 mg capsule Take 1 capsule by mouth once daily. simvastatin (ZOCOR) 40 mg tablet Take 1 tablet by mouth daily at bedtime. sucralfate (CARAFATE) 1 gram tablet Take 1 tablet by mouth before meals and at bedtime. Estradiol (ESTRACE) 0.5 mg tablet Take 1 tablet by mouth once daily. imipramine HCl (TOFRANIL) 25 mg tablet Take 2 tablets by mouth daily at bedtime. fexofenadine (NAN) 180 mg tablet Take 1 tablet by mouth once daily. GEMTESA 75 mg tablet Take 1 tablet by mouth every afternoon. Albuterol Sulfate 1.25 mg/3 mL nebulizer solution Use 1 Ampule via nebulizer every 6 hours as needed for wheezing/shortness of breath. ipratropium (ATROVENT) 0.02 % nebulizer solution Use 2.5 mL via nebulizer four times daily as needed for wheezing/shortness of breath. calcium carb/vit D2/minerals (CALTRATE PLUS ORAL) Take 1 capsule by mouth once daily. fluticasone (FLONASE) 50 mcg/actuation nasal spray Use 1 Meraux in each nostril twice daily. VIA SPACER THEN RINSE AND GARGLE MOUTH WITH WATER. LOPERAMIDE HCL (IMODIUM ORAL) Take by mouth as needed. vit e acetate/gly/dimeth/water(CETAPHIL MOISTURIZING LOTION) apply twice daily predniSONE (DELTASONE) 20 mg tablet 1 tablet three times a day for 3 days, then 2 times a day for 3 days, the one daily for 3 days. (Patient not ta (more content not included)...[facility]2024 History of Present illness Narrative* Edda Oconnor MD - 05/04/2024 9:15 AM EST This note was created using [employer]. Subjective Chey Jeffers is a 63 year old female. Patient presents with: F/U 6 months: Labs prior SUBJECTIVE: Chey Jeffers is a 63 year old year old lady here today for 6 month follow up appointment for review of medical conditions Chey Jeffers is a 63-year-old female with a history of asthma, COPD, and chronic back pain, presenting with acute URI symptoms and exacerbation of chronic back pain. Chey reports the onset of URI symptoms around 04/27, including severe cephalalgia described as a head in a vice, odynophagia, and right otalgia described as a sharp, stabbing pain. She also experiences nasal congestion, anosmia, and ageusia, with associated cough producing thick white sputum. She denies known exposure to COVID-19. She reports intermittent fevers and chills but has not been able to confirm due to a malfunctioning thermometer. She has a history of recurrent sinus infections and was treated with a steroid taper in March, which provided relief. She is currently using Symbicort, albuterol, and a nebulizer for her asthma and COPD but skipped Symbicort for 2 days due to severe pharyngitis. Chey also reports exacerbation of chronic back pain, which she describes as unbearable and affecting her sleep. She was evaluated at the hospital on 04/04 and expected a cortisone injection and MRI, but only an x-ray was performed. She reports severe pain radiating to her left buttock, groin, and leg, with associated numbness in her left foot. The pain worsens when lying down and affects her mobility. She has not received follow-up from the initial evaluation and is seeking further management. She denies constipation. She has a history of allergies to multiple antibiotics, including penicillin, which caused a severerash and hives in January. She reports that Levaquin is the only antibiotic she can tolerate. Sheis also taking clonazepam, which is due for a refill on 05/15. She reports increased blood glucose levels, which she attributes to acute illness and stress-related dietary changes. She plans to reducesodium intake after the New Year. . PAST MEDICAL HISTORY Diagnosis Date Abnormal ultrasound of breast 06/17/2013 Acute gastritis Ankylosing spondylitis (HCC) Anxiety and depression 06/12/2005 Asthma Bilateral renal cysts 03/11/2015 Calculus of kidney Dysthymic disorder Depression (non-psychotic) Enterocolitis due to Clostridium difficile 01/12/2015 Esophageal reflux HNP (herniated nucleus pulposus), lumbar 08/22/2011 Intrinsic asthma, unspecified 08/05/2008 Irritable bowel syndrome Irritable bowel FCI 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 01/16/2017 Menopause syndrome 01/19/2005 Myalgia and myositis, unspecified Nasal polyposis Polypectomy 03/2017 Dr. Mazariegos [facility]. Pure hypercholesterolemia Serrated adenoma of colon 07/29/2014 Symptomatic menopausal or female climacteric states Unspecified sinusitis (chronic) 06/21/2008 Current Outpatient Medications Medication Sig budesonide-formoterol (SYMBICORT) 160-4.5 mcg/actuation inhaler Inhale 2 Puffs as instructed two times a day. clonazePAM (KLONOPIN) 0.5 mg tablet Take 1 tablet by mouth two times a day for 90 days. albuterol HFA (VENTOLIN HFA) 90 mcg/actuation inhaler Inhale 2 Puffs as instructed every 4 hours asneeded for wheezing/shortness of breath. montelukast (SINGULAIR) 10 mg tablet Take 1 tablet by mouth daily at bedtime. lansoprazole (PREVACID) 30 mg capsule Take 1 capsule by mouth once daily. simvastatin (ZOCOR) 40 mg tablet Take 1 tablet by mouth daily at bedtime. sucralfate (CARAFATE) 1 gram tablet Take 1 tablet by mouth before meals and at bedtime. Estradiol (ESTRACE) 0.5 mg tablet Take 1 tablet by mouth once daily. imipramine HCl (TOFRANIL) 25 mg tablet Take 2 tablets by mouth daily at bedtime. fexofenadine (NAN) 180 mg tablet Take 1 tablet by mouth once daily. GEMTESA 75 mg tablet Take 1 tablet by mouth every afternoon. Albuterol Sulfate 1.25 mg/3 mL nebulizer solution Use 1 Ampule via nebulizer every 6 hours as needed for wheezing/shortness of breath. ipratropium (ATROVENT) 0.02 % nebulizer solution Use 2.5 mL via nebulizer four times daily as needed for wheezing/shortness of breath. calcium carb/vit D2/minerals (CALTRATE PLUS ORAL) Take 1 capsule by mouth once daily. fluticasone (FLONASE) 50 mcg/actuation nasal spray Use 1 Meraux in each nostril twice daily. VIA SPACER THEN RINSE AND GARGLE MOUTH WITH WATER. LOPERAMIDE HCL (IMODIUM ORAL) Take by mouth as needed. vit e acetate/gly/dimeth/water(CETAPHIL MOISTURIZING LOTION) apply twice daily predniSONE (DELTASONE) 20 mg tablet 1 tablet three times a day for 3 days, then 2 times a day for 3days, the one daily for 3 days. (Patient not taking: Reported on 05/04/2024) Conj Estrog-Medroxyprogest Debra 0.3-1.5 mg per tablet Take 1 tablet by mouth once daily. No current facility-administered medications for this visit. Review of Systems Objective BP 122/78 Pulse 112 Temp 36.2 C (97.1 F) Resp 16 Wt 65.2 kg (143 lb 11.8 oz) SpO2 97% BMI 28.07 kg/m Physical Exam Constitutional: Appearance: Normal appearance. HENT: Head: Normocephalic. Comments: tenderness over sinuses Right Ear: Tympanic membrane, ear canal and external ear normal. Left Ear: Tympanic membrane, ear canal and external ear normal. Mouth/Throat: Mouth: Mucous membranes are moist. Pharynx: No oropharyngeal exudate or posterior oropharyngeal erythema. Eyes: Conjunctiva/sclera: Conjunctivae normal. Pupils: Pupils are equal, round, and reactive to light. Cardiovascular: Rate and Rhythm: Normal rate and regular rhythm. Heart sounds: Normal heart sounds. Pulmonary: Effort: Pulmonary effort is normal. No respiratory distress. Breath sounds: No stridor. Wheezing (with forced expirations) present. No rhonchi or rales. Comments: frequent cough Musculoskeletal: Right lower leg: No edema. Left lower leg: No edema. Skin: General: Skin is warm and dry. Neurological: General: No focal deficit present. Mental Status: She is alert and oriented to person, place, and time. Psychiatric: Attention and Perception: Attention and perception normal. Mood and Affect: Mood and affect normal. Speech: Speech normal. Behavior: Behavior normal. Thought Content: Thought content normal. Cognition and Memory: Cognition normal. Judgment: Judgment normal. Latest Ref Rng 01/02/2023 05/11/2023 04/25/2024 WBC 3.70 - 11.00 k/uL 10.85 13.50 (H) 10.64 RBC 3.90 - 5.20 m/uL 5.09 5.26 (H) 5.06 Hemoglobin 11.5 - 15.5 g/dL 13.9 14.3 13.6 Hematocrit 36.0 - 46.0 % 44.6 47.5 (H) 44.6 MCV 80.0 - 100.0 fL 87.6 90.3 88.1 MCH 26.0 - 34.0 pg 27.3 27.2 26.9 MCHC 30.5 - 36.0 g/dL 31.2 30.1 (L) 30.5 RDW-CV 11.5 - 15.0 % 14.6 14.6 16.0 (H) Platelet Count 150 - 400 k/uL 342 371 322 MPV 9.0 - 12.7 fL 10.9 10.1 10.2 Neut% % 65.0 Abs Neut (ANC) 1.45 - 7.50 k/uL 7.05 Lymph% % 18.8 Abs Lymph 1.00 - 4.00 k/uL 2.04 [place]% % 7.5 Abs [place] <0.87 k/uL 0.81 Eosin% % 6.8 Abs Eosin <0.46 k/uL 0.74 (H) Baso% % 1.0 Abs Baso <0.11 k/uL 0.11 (H) Immature Gran % % 0.9 IMMATURE GRANS (ABS) <0.10 k/uL 0.10 (H) NRBC /100 WBC 0.0 Absolute nRBC <0.01 k/uL <0.01 <0.01 <0.01 DTYPE Auto Protein, Total 6.3 - 8.0 g/dL 6.7 6.5 5.1 (L) Albumin 3.9 - 4.9 g/dL 4.3 4.0 4.0 Calcium 8.5 - 10.2 mg/dL 9.6 9.6 9.4 Bilirubin, Total 0.2 - 1.3 mg/dL 0.2 0.3 0.4 Alkaline Phosphatase 34 - 123 U/L 80 74 73 AST 13 - 35 U/L 18 17 18 ALT 7 - 38 U/L 14 10 15 Glucose 74 - 99 mg/dL 93 86 103 (H) BUN 7 - 21 mg/dL 13 15 16 Creatinine 0.58 - 0.96 mg/dL 0.98 (H) 1.07 (H) 1.06 (H) Sodium 136 - 144 mmol/L 139 139 142 Potassium 3.7 - 5.1 mmol/L 4.4 4.6 4.1 Chloride 98 - 107 mmol/L 105 102 104 CO2 22 - 30 mmol/L 24 27 26 Anion Gap 8 - 15 mmol/L 10 10 12 eGFR >=60 mL/min/1.73m 65 59 (L) 59 (L) Cholesterol, Total <200 mg/dL 150 144 Triglyceride <150 mg/dL 179 (H) 110 HDL Cholesterol >39 mg/dL 56 57 Non HDL Cholesterol <130 mg/dL 94 87 Fasting Time hrs 12 15 VLDL Cholesterol <30 mg/dL 36 (H) 22 TC:HDL Ratio <5.10 2.68 2.53 LDL Cholesterol <100 mg/dL 58 65 LDL:HDL Ratio <2.54 1.04 1.14 Hemoglobin A1C 4.3 - 5.6 % 5.8 (H) 5.7 (H) 5.9 (H) Estimated Average Glucose mg/dL 120 117 123 TSH 0.270 - 4.200 mIU/L 1.300 Magnesium 1.7 - 2.3 mg/dL 2.3 2.0 Vitamin D 25 Hydroxy 31.0 - 80.0 ng/mL 32.8 36.8 Legend: (H) High (L) Low4 Assessment and Plan # Acute non-recurrent maxillary sinusitis (J01.00) # Sore throat (J02.9) # Acute cough (R05.1) # Acute ear pain, right (H92.01) # Loss of taste (R43.2) # Loss of smell (R43.0) - Symptoms include sinus pressure, sore throat, cough, right ear pain, anosmia, and ageusia. - Physical exam reveals tenderness in the maxillary sinuses, mild wheezing on auscultation, and no erythema or bulging of the tympanic membranes. - Initiated Medrol Dosepak to reduce inflammation. - Advised continuation of Flonase and Nan for decongestion and allergy management. - Discussed the importance of maintaining hydration to thin mucus secretions. - Follow-up with Dr. Monzon if symptoms do not improve. # Acute bronchitis with chronic obstructive pulmonary disease (COPD) (HCC) (HCC) (J44.0) - Mild wheezing noted on auscultation, no crackles indicative of pneumonia. - Reinforced the use of Symbicort and albuterol inhaler as prescribed. - Advised to resume Symbicort after a brief discontinuation due to sore throat. - Discussed the viral nature of bronchitis and the importance of avoiding unnecessary antibiotic use. # Anxiety and depression (F41.9) - Discussed the impact of anxiety on dietary habits, particularly increased consumption of sweets. - Encouraged the development of alternative coping mechanisms for anxiety management. # Chronic midline low back pain with left-sided sciatica (M54.42) # Degeneration of intervertebral disc of lumbar region with discogenic back pain and lower extremity pain (M51.362) - Reviewed recent lumbar X-ray showing disc space narrowing at L5-S1, spondylolisthesis, and osteophytosis. - Symptoms include severe pain radiating to the left leg, numbness in the left foot, and groin pain. - Referred to Dr. Watts for pain management evaluation and potential interventions such as epidural injections or nerve ablation. - Discussed the possibility of physical therapy to alleviate symptoms. # Vitamin D deficiency (E55.9) - Recent labs show improved Vitamin D levels. - Continue current supplementation. # Pure hypercholesterolemia (E78.00) - Recent labs show excellent cholesterol levels: HDL 57 mg/dL, LDL within normal limits, triglycerides <150 mg/dL. - Continue current lipid management regimen. # Gastroesophageal reflux disease without esophagitis (K21.9) - Continue Prevacid as prescribed. Edda Oconnor MD [facility] Telephone encounter Note * Telephone Encounter - Yessica Mercado APRN.CNP - 04/09/2024 10:44 AM EST Patient was evaluated in ER on 04/04 for this Yessica Mercado APRN.CNP [facility] Work Phone: [phone] 395-229612-05-2024 Miscellaneous Notes* Telephone Encounter - Yessica Mercado APRN.CNP - 04/09/2024 10:44 AM EST Patient was evaluated in ER on 04/04 for this Yessica Mercado APRN.GEOSCIENCE LABORATORY TECHNICIAN documented in this encounter[facility]11-19-[facility] History of Present illness Narrative* Ana Cristina Urbina APRN.CNP - 03/24/2024 10:00 AM EST Images from the original note were not included. Pulmonary Medicine Patients name: Chey Jeffers PCP: Edda Oconnor MD CC: Asthma follow-up HPI: Chey Jeffers is a 63 year old female non-smoker with PMH significant for ankylosing spondylitis, depression, GERD, nasal polyposis, multiple allergies, recurrent sinusitis and asthma. She was previously seen by allergy for consideration for Dupixent but will not go back. Current therapy consists of high dose Advair HFA and PRN Albuterol. NELSY 01/16 her FENO was elevated at 88ppb. Stepped up inhaler therapy to high dose Advair from Symbicort and presents today for follow-up. Since her NELSY, she reports not feeling as good control of Asthma while on Advair. Feels more wheezing and burning in her chest after using. [place] better with Symbicort. Reports there were few occasions where she did not use Advair twice a day. Additionally, she has reportedly had multiple sinus infections. Seen by her PCP office on 03/17 for acute symptoms and treated with Levaquin and steroid taper for sinusitis. She was previously seen by ENT by [facility] and has had multiple surgerys to remove polyps. Was told she has nasal polyps on the left side. Has had trouble getting back in to see ENT but has appointment scheduled this Saturday. Current symptoms include cough with occasional green sputum. No hemoptysis. Has wheezing on occasion. No dyspnea at rest. Exertional dyspnea with stairsor in the cold air. Had body aches prior to starting treatment but none currently. Albuterol use ector few times per week. 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 ASTHMA CONTROL TEST Date: 03/24/2024 In the last 4 weeks, how much of the time did your asthma keep you from getting as much done at work or home that you wanted to do? Most of the time (2) In the last 4 weeks, how often have you had shortness of breath? More than once per day (1) In the last 4 weeks, how often did your asthma symptoms (wheezing, coughing, shortness of breath, chest tightness or pain) wake you up at night or earlier than usual? 2 or 3 nights per week (2) In the last 4 weeks, how often have you used your rescue inhaler or nebulizer medication (such as Albuterol, Proventil, Ventolin, Maxair, Xoponex, or Primatene Mist)? A few times per week (3) In the last 4 weeks, how would you rate your asthma control? 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 Mazariegos [facility]. Pure hypercholesterolemia Serrated adenoma of colon 07/29/2014 Symptomatic menopausal or female climacteric states Unspecified sinusitis (chronic) 06/21/2008 Allergies: Amoxicillin Rash Comment:Rash a few days into a course of treatment. Noted that had not reacted to test dose penicillin but developed rash after a few days on amoxicillin. Aspirin [Salicylate* Swelling, Shortness of Breath Comment:wheezing,swelling lips,rash,hives Codeine Hives Vicodin [Hydrocodon* Hives Cefdinir Itching Comment:Itchy scaly rash. (Patient may take penicillin and other penicillin type antibiotics. See allergy visit on 01/08/23) Demerol [Meperidine* Rash Tylenol [Acetaminop* Intolerance, Shortness of Breath Comment:asthma; makes it hard for her to breathe Ambien [Zolpidem] Intolerance Comment:Was sleepwalking (arranging books but hull not recall) Bactrim [Sulfametho* Comment:uncertain Budesonide Rash Celexa [Citalopram * GI Upset Doxy [Doxycycline] Comment:rash and asthma Durezol [Diflupredn* Rash Ibuprofen Shortness of Breath Lexapro [Escitalopr* GI Upset Lyrica [Pregabalin] Mental Status Change Comment:dizzy Macrobid [Nitrofura* Diarrhea Maprotiline Itching Monurol [Fosfomycin] Diarrhea Mucomyst [Acetylcys* Cough Comment:increase wheezing Oxycodone Shortness of Breath Penicillins Hives Comment:Allergy skin tests to penicillin were negative. The patient took a test dose of amoxicillin and tolerated this without adverse reaction. The patient is at low risk for a severe, immediate, IgE-mediated reaction to penicillin, amoxicillin and other penicillin-type antibiotics. Skin tests are unreliable for predicting delayed reactions. Toradol [Ketorolac * Swelling Ultram [Tramadol Hc* Other: See Comments Comment:chest pains Vancomycin Other: See Comments Comment:Wheezing after taking, legs swollen and tongue swelling and scratchy neck Venlafaxine GI Upset Zithromax [Azithrom* Itching Mirtazapine Other: See Comments Comment:Hand shakes. Medication List Accurate as of March 20, 2024 11:23 AM. If you have any questions, ask your nurse or doctor. CONTINUE taking these medications * Albuterol Sulfate 1.25 mg/3 mL nebulizer solution Use 1 Ampule via nebulizer every 6 hours as needed for wheezing/shortness of breath. * albuterol HFA 90 mcg/actuation inhaler Commonly known as: VENTOLIN HFA Inhale 2 Puffs as instructed every 4 hours as needed for wheezing/shortness of breath. budesonide-formoterol 160-4.5 mcg/actuation inhaler Commonly known as: SYMBICORT Inhale 2 Puffs as instructed twice daily. CALTRATE PLUS ORAL CETAPHIL MOISTURIZING lotion Generic drug: vit U-qlefrbzf-uhqekttuhbs apply twice daily clonazePAM 0.5 mg tablet Commonly known as: KlonoPIN Take 1 tablet by mouth two times a day for 90 days. conjugated estrogens-medroxyPROGESTERone 0.3-1.5 mg per tablet Take 1 tablet by mouth once daily. estradiol 0.5 mg tablet Commonly known as: ESTRACE Take 1 tablet by mouth once daily. fexofenadine 180 mg tablet Commonly known as: NAN Take 1 tablet by mouth once daily. fluticasone 50 mcg/actuation nasal spray Commonly known as: FLONASE Use 1 [place] in each nostril twice daily. VIA SPACER THEN RINSE AND GARGLE MOUTH WITH WATER. fluticasone-salmeterol HFA 230-21 mcg/actuation inhaler Commonly known as: ADVAIR HFA Inhale 2 Puffs as instructed two times a day. GEMTESA 75 mg tablet Generic drug: vibegron imipramine HCl 25 mg tablet Commonly known as: TOFRANIL Take 2 tablets by mouth daily at bedtime. IMODIUM ORAL ipratropium 0.02 % nebulizer solution Commonly known as: ATROVENT Use 2.5 mL via nebulizer four times daily as needed for wheezing/shortness of breath. lansoprazole 30 mg capsule Commonly known as: PREVACID Take 1 capsule by mouth once daily. levoFLOXacin 500 mg tablet Commonly known as: LEVAQUIN Take 1 tablet by mouth once daily for 10 days. montelukast 10 mg tablet Commonly known as: SINGULAIR Take 1 tablet by mouth daily at bedtime. predniSONE 20 mg tablet Commonly known as: DELTASONE 1 tablet three times a day for 3 days, then 2 times a day for 3 days, the one daily for 3 days. simvastatin 40 mg tablet Commonly known as: ZOCOR Take 1 tablet by mouth daily at bedtime. sucralfate 1 gram tablet Commonly known as: CARAFATE Take 1 tablet by mouth before meals and at bedtime. * This list has 2 medication(s) that are the same as other medications prescribed for you. Read thedirections carefully, and ask your doctor or other care provider to review them with you. DATA: I personally reviewed and analyzed all labs, radiographs and available pulmonary function testing FENO PFT: 05/2022 IMPRESSION: Spirometry shows a reduced FEV1/FVC ratio; but individually normal FVC and FEV1 predicted values.This pattern indicates mild obstruction or a normal variant. Flow volume loop show obstructive pattern in small airways. Review of Systems Constitutional: Negative for activity change, fever and unexpected weight change. HENT: Positive for congestion, postnasal drip, sinus pressure and sneezing. Respiratory: Positive for cough, chest tightness and shortness of breath. Cardiovascular: Negative for palpitations and leg swelling. Musculoskeletal: Positive for arthralgias and myalgias. Allergic/Immunologic: Positive for environmental allergies. Neurological: Positive for headaches. Negative for dizziness and light-headedness. BP 130/86 Pulse 92 Resp 18 SpO2 97% Physical Exam Vitals reviewed. Constitutional: General: She is not in acute distress. Appearance: Normal appearance. She is normal weight. She is not ill-appearing. HENT: Head: Normocephalic. Nose: Congestion present. No rhinorrhea. Mouth/Throat: Mouth: Mucous membranes are moist. Pharynx: No oropharyngeal exudate. Cardiovascular: Rate and Rhythm: Normal rate and regular rhythm. Heart sounds: Normal heart sounds. Pulmonary: Effort: Pulmonary effort is normal. No respiratory distress. Breath sounds: No wheezing or rhonchi. Musculoskeletal: Right lower leg: No edema. Left lower leg: No edema. Lymphadenopathy: Cervical: No cervical adenopathy. Skin: General: Skin is warm and dry. Capillary Refill: Capillary refill takes less than 2 seconds. Neurological: General: No focal deficit present. Mental Status: She is alert. ASSESSMENT/PLAN: 1. Severe persistent asthma without complication - ICD9: 493.90, ICD10: J45.50 (primary diagnosis) - Severe persistent asthma worse - Feno today elevated at 114 ppd (88 ppd on 01/16) despite increasing therapy to high dose Advair and currently on steroids for sinus infection. - Stop Advair - Resume Symbicort, symptomatically felt better. New prescription sent. - continue Albuterol PRN - discussed indication for proceeding with Dupixent however patient reluctant at this time d/t concerns for cost and side effects. Encouraged continued discussion with ENT d/t hx nasal polyps. - NITRIC OXIDE, EXHALED 2. Acute recurrent sinusitis, unspecified location - ICD9: 461.9, ICD10: J01.91 - continue current treatment with Levaquin and prednisone from PCP - continue supportive therapies - encouraged to keep ENT appt this week despite symptoms 3. Nasal polyposis - ICD9: 471.9, ICD10: J33.9 - scheduled with [facility] 02/25 F/u 3 months Portions of this documentation were copied and pasted from previous office visit notes in order to provide a cohesive continuity of the history. The note has been reviewed and edited and updated as necessary. Ana Cristina Urbina APRN.CNP I spent a total of 45 minutes on the date of the service which included preparing to see the patient, [id number] patient care, completing clinical documentation, performing a medically appropriate examination, counseling and educating the patient/family/caregiver, ordering medications, tests, or p rocedures, and communicating results to the patient/family/caregiver. documented in this encounter[facility]11-19-[facility]24 NoteHNO ID: [id number] Author: ANA CRISTINA URBINA APRN.CNP Service: ? Author Type: Nurse Practitioner Type: Progress Notes Filed: 03/24/2024 11:21 Note Text: Pulmonary Medicine Patients name: Chey Jeffers PCP: Edda Oconnor MD CC: Asthma follow-up HPI: Chey Jeffers is a 63 year old female non-smoker with PMH significant for ankylosing spondylitis, depression, GERD, nasal polyposis, multiple allergies, recurrent sinusitis and asthma. She was previously seen by allergy for consideration for Dupixent but will not go back. Current therapy consists of high dose Advair HFA and PRN Albuterol. NELSY 01/16 her FENO was elevated at 88ppb. Stepped up inhaler therapy to high dose Advair from Symbicort and presents today for follow-up. Since her NELSY, she reports not feeling as good control of Asthma while on Advair. Feels more wheezing and burning in her chest after using. [place] better with Symbicort. Reports there were few occasions where she did not use Advair twice a day. Additionally, she has reportedly had multiple sinus infections. Seen by her PCP office on 03/17 for acute symptoms and treated with Levaquin and steroid taper for sinusitis. She was previously seen by ENT by [facility] and has had multiple surgerys to remove polyps. Was told she has nasal polyps on the left side. Has had trouble getting back in to see ENT but has appointment scheduled this Saturday. Current symptoms include cough with occasional green sputum. No hemoptysis. Has wheezing on occasion. No dyspnea at rest. Exertional dyspnea with stairs or in the cold air. Had body aches prior to starting treatment but none currently. Albuterol use is a few times per week. 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 ASTHMA CONTROL TEST Date: 03/24/2024 In the last 4 weeks, how much of the time did your asthma keep you from getting as much done at work or home that you wanted to do? Most of the time (2) In the last 4 weeks, how often have you had shortness of breath? More than once per day (1) In the last 4 weeks, how often did your asthma symptoms (wheezing, coughing, shortness of breath, chest tightness or pain) wake you up at night or earlier than usual? 2 or 3 nights per week (2) In the last 4 weeks, how often have you used your rescue inhaler or nebulizer medication (such as Albuterol, Proventil, Ventolin, Maxair, Xoponex, or Primatene Mist)? A few times per week (3) In the last 4 weeks, how would you rate your asthma control? 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 Mazariegos [facility]. Pure hypercholesterolemia Serrated adenoma of colon 07/29/2014 Symptomatic menopausal or female climacteric states Unspecified sinusitis (chronic) 06/21/2008 Allergies: Amoxicillin Rash Comment:Rash a few days into a course of treatment. Noted that had not reacted to test dose penicillin but developed rash after a few days on amoxicillin. Aspirin [Salicylate* Swelling, Shortness of Breath Comment:wheezing,swelling lips,rash,hives Codeine Hives Vicodin [Hydrocodon* Hives Cefdinir Itching Comment:Itchy scaly rash. (Patient may take penicillin and other penicillin type antibiotics. See allergy visit on 01/08/23) Demerol [Meperidine* Rash Tylenol [Acetaminop* Intolerance, Shortness of Breath Comment:asthma; makes it hard for her to breathe Ambien [Zolpidem] Intolerance Comment:Was sleepwalking (arranging books but hull not recall) Bactrim [Sulfametho* Comment:uncertain Budesonide Rash Celexa [Citalopram * GI Upset Doxy [Doxycycline] Comment:rash and asthma Durezol [Diflupredn* Rash Ibuprofen Shortness of Breath Lexapro [Escitalopr* GI Upset Lyrica [Pregabalin] Mental Status Change Comment:dizzy Macrobid [Nitrofura* Diarrhea Maprotiline Itching Monurol [Fosfomycin] Diarrhea Mucomyst [Acetylcys* Cough Comment:increase wheezing Oxycodone Shortness of Breath Penicillins Hives Comment:Allergy skin tests to penicillin were negative. The patient took a test dose of amoxicillin and tolerated this without adverse reaction. The patient is at low risk for a severe, immediate, IgE-mediated reaction to penicillin, amoxicillin and other penicillin-type antibiotics. Skin tests (more content not included)...[facility]11-19-[facility]24 NoteHNO ID: [id number] Author: OFE RUFF RPFT Service: ? Author Type: Respiratory Therapist Type: Procedures Filed: 03/24/2024 11:20 Note Text: RESPIRATORY THERAPY ORAL EXHALED NITRIC OXIDE SERVICE DATE: 03/24/2024 SERVICE TIME: 9:45 AM Oral Exhaled Nitric Oxide measurement: 114.0 (ppb) (A) Normal: Adult <25 ppb, pediatric (<12 years) <20 ppb High Normal / Increased: Adult 25-50 ppb, pediatric (<12 years) 20-35 ppb Moderately raised exhaled Nitric Oxide may indicate underlying inflammation, but note that: Cold and influenza can raise exhaled Nitric Oxide and some patients have higher baseline exhaled Nitric Oxide levels than others. High: Adult >50 ppb, pediatric (<12 years) >35 ppb Indicative of ongoing eosinophilic inflammation. Symptomatic patient likely to respond to steroids. Possible causes (if already on steroids): Poor compliance, recent allergen exposure, steroid dose inadequate, and steroid resistance. Note that not all patients with high exhaled nitric oxide levels display symptoms. Oral Exhaled Nitric Oxide measurement (Previous Encounters) Test Date Oral Exhaled Nitric Oxide (ppb) 03/24/2024 114.0 (A) 01/17/2024 88.0 (A) 12/03/2022 49.0 (A) 06/04/2022 95.0 (A) 08/17/2021 109.0 (A) 12/21/2019 216.0 (A) NAME: LA Goddard PATIENT NAME: Chey Jeffers DATE: March 24, 2024 TIME: 9:45 [facility]11-19-2024 Procedure note* Ofe Ruff RPFT - 03/24/2024 9:45 AM ESTAssociated Order(s): NITRIC OXIDE, EXHALED RESPIRATORY THERAPY ORAL EXHALED NITRIC OXIDE SERVICE DATE: 03/24/2024 SERVICE TIME: 9:45 AM Oral Exhaled Nitric Oxide measurement: 114.0 (ppb) (A) Normal: Adult <25 ppb, pediatric (<12 years) <20 ppb High Normal / Increased: Adult 25-50 ppb, pediatric (<12 years) 20-35 ppb Moderately raised exhaled Nitric Oxide may indicate underlying inflammation, but note that: Cold and influenza can raise exhaled Nitric Oxide and some patients have higher baseline exhaled Nitric Oxide levels than others. High: Adult >50 ppb, pediatric (<12 years) >35 ppb Indicative of ongoing eosinophilic inflammation. Symptomatic patient likely to respond to steroids. Possible causes (if already on steroids): Poor compliance, recent allergen exposure, steroid dose inadequate, and steroid resistance. Note that not all patients with high exhaled nitric oxide levels display symptoms. Oral Exhaled Nitric Oxide measurement (Previous Encounters) Test Date Oral Exhaled Nitric Oxide (ppb) 03/24/2024 114.0 (A) 01/17/2024 88.0 (A) 12/03/2022 49.0 (A) 06/04/2022 95.0 (A) 08/17/2021 109.0 (A) 12/21/2019 216.0 (A) NAME: Ofe Ruff LA PATIENT NAME: Chey Jeffers DATE: March 24, 2024 TIME: 9:45 AM [facility]11-19-2024 Procedure note* Ofe Ruff RPFT - 03/24/2024 9:45 AM ESTAssociated Order(s): NITRIC OXIDE, EXHALED RESPIRATORY THERAPY ORAL EXHALED NITRIC OXIDE SERVICE DATE: 03/24/2024 SERVICE TIME: 9:45 AM Oral Exhaled Nitric Oxide measurement: 114.0 (ppb) (A) Normal: Adult <25 ppb, pediatric (<12 years) <20 ppb High Normal / Increased: Adult 25-50 ppb, pediatric (<12 years) 20-35 ppb Moderately raised exhaled Nitric Oxide may indicate underlying inflammation, but note that: Cold and influenza can raise exhaled Nitric Oxide and some patients have higher baseline exhaled Nitric Oxide levels than others. High: Adult >50 ppb, pediatric (<12 years) >35 ppb Indicative of ongoing eosinophilic inflammation. Symptomatic patient likely to respond to steroids. Possible causes (if already on steroids): Poor compliance, recent allergen exposure, steroid dose inadequate, and steroid resistance. Note that not all patients with high exhaled nitric oxide levels display symptoms. Oral Exhaled Nitric Oxide measurement (Previous Encounters) Test Date Oral Exhaled Nitric Oxide (ppb) 03/24/2024 114.0 (A) 01/17/2024 88.0 (A) 12/03/2022 49.0 (A) 06/04/2022 95.0 (A) 08/17/2021 109.0 (A) 12/21/2019 216.0 (A) NAME: Ofe Rfuf TOBIMARIANNE PATIENT NAME: Chey Jeffers DATE: March 24, 2024 TIME: 9:45 AM documented in this encounterWvumedicine [facility]11-[facility]24 NoteHNO ID: [id number] Author: OFE RUFF RPFT Service: ? Author Type: Respiratory Therapist Type: Progress Notes Filed: 03/24/2024 09:45 Note Text: PULM FUNCTION: Provider: Mary Lou Nicholson MD Assisting Tech: Ofe Ruff RPFT [facility] History of Present illness Narrative* Ofe Ruff RPFT - 03/24/2024 9:41 AM EST PULM FUNCTION: Provider: Mary Lou Nicholson MD Assisting Tech: Ofe Ruff RPFT Exhaled Nitric Oxide: 1 documented in this encounterWvumedicine [facility]11-12-2024 NoteHNO ID: [id number] Author: NUNO BENSON APRN.GEOSCIENCE LABORATORY TECHNICIAN Service: ? Author Type: Nurse Practitioner Type: Progress Notes Filed: 03/17/2024 10:36 Note Text: SUBJECTIVE Chey Jeffers is a 63 year old female here today for acute concern. Chief Complaint Patient presents with: Sinus Problem HPI Chey Jeffers is a 63 year old female. She is an established patient of Edda Oconnor MD. Here today acutely for concerns of a sinus infection. Prior history of sinus issues and sees ENT but cannot get in with them soon. For a few weeks she has had sinus congestion, mostly left sided. Discolored nasal drainage, fatigue, body aches. Has tried OTCs and not helpful. Not improving. Her medications were reviewed today and her list is now up to date. Medications Current Outpatient Medications Medication Sig predniSONE (DELTASONE) 20 mg tablet 1 tablet three times a day for 3 days, then 2 times a day for 3 days, the one daily for 3 days. levoFLOXacin (LEVAQUIN) 500 mg tablet Take 1 tablet by mouth once daily for 10 days. clonazePAM (KLONOPIN) 0.5 mg tablet Take 1 tablet by mouth two times a day for 90 days. albuterol HFA (VENTOLIN HFA) 90 mcg/actuation inhaler Inhale 2 Puffs as instructed every 4 hours as needed for wheezing/shortness of breath. fluticasone-salmeterol HFA (ADVAIR HFA) 230-21 mcg/actuation inhaler Inhale 2 Puffs as instructed two times a day. montelukast (SINGULAIR) 10 mg tablet Take 1 tablet by mouth daily at bedtime. budesonide-formoterol (SYMBICORT) 160-4.5 mcg/actuation inhaler Inhale 2 Puffs as instructed twice daily. lansoprazole (PREVACID) 30 mg capsule Take 1 capsule by mouth once daily. simvastatin (ZOCOR) 40 mg tablet Take 1 tablet by mouth daily at bedtime. sucralfate (CARAFATE) 1 gram tablet Take 1 tablet by mouth before meals and at bedtime. Estradiol (ESTRACE) 0.5 mg tablet Take 1 tablet by mouth once daily. imipramine HCl (TOFRANIL) 25 mg tablet Take 2 tablets by mouth daily at bedtime. fexofenadine (NAN) 180 mg tablet Take 1 tablet by mouth once daily. Conj Estrog-Medroxyprogest Debra 0.3-1.5 mg per tablet Take 1 tablet by mouth once daily. GEMTESA 75 mg tablet Take 1 tablet by mouth every afternoon. Albuterol Sulfate 1.25 mg/3 mL nebulizer solution Use 1 Ampule via nebulizer every 6 hours as needed for wheezing/shortness of breath. ipratropium (ATROVENT) 0.02 % nebulizer solution Use 2.5 mL via nebulizer four times daily as needed for wheezing/shortness of breath. calcium carb/vit D2/minerals (CALTRATE PLUS ORAL) Take 1 capsule by mouth once daily. fluticasone (FLONASE) 50 mcg/actuation nasal spray Use 1 Meraux in each nostril twice daily. VIA SPACER THEN RINSE AND GARGLE MOUTH WITH WATER. LOPERAMIDE HCL (IMODIUM ORAL) Take by mouth as needed. vit e acetate/gly/dimeth/water(CETAPHIL MOISTURIZING LOTION) apply twice daily No current facility-administered medications for this visit. ALLERGIES Allergen Reactions Amoxicillin Rash Rash a few days into a course of treatment. Noted that had not reacted to test dose penicillin but developed rash after a few days on amoxicillin. Aspirin [Salicylate* Swelling, Shortness of Breath wheezing,swelling lips,rash,hives Codeine Hives Vicodin [Hydrocodon* Hives Cefdinir Itching Itchy scaly rash. (Patient may take penicillin and other penicillin type antibiotics. See allergy visit on 01/08/23) Demerol [Meperidine* Rash Tylenol [Acetaminop* Intolerance, Shortness of Breath asthma; makes it hard for her to breathe Ambien [Zolpidem] Intolerance Was sleepwalking (arranging books [...] tests are unreliable for predicting delayed reactions. Toradol [Ketorolac * Swelling Ultram [Tramadol Hc* Other: See Comments chest pains Vancomycin Other: See Comments Wheezing after taking, legs swollen and tongue swelling and scratchy neck Venlafaxine GI Upset Zithromax [Azithrom* Itching Mirtazapine Other: See Comments Hand shakes. ACTIVE PROBLEM LIST Cervical Spondylosis Without Myelopathy - 07/20/2020 Lumbosacral Spondylosis Without Myelopathy - 07/20/2020 Spinal Stenosis, Lumbar Region, Without Neurogenic Claudication - 07/20/2020 Nasal Polyposis - 01/16/2017 (more content not included)...[facility]11-12-2024 History of Present illness Narrative* Nuno Benson APRN.GEOSCIENCE LABORATORY TECHNICIAN - 03/17/2024 10:31 AM EST SUBJECTIVE Chey Jeffers is a 63 year old female here today for acute concern. Chief Complaint Patient presents with: Sinus Problem HPI Chey Jeffers is a 63 year old female. She is an established patient of Edda Oconnor MD. Here today acutely for concerns of a sinus infection. Prior history of sinus issues and sees ENT but cannot get in with them soon. For a few weeks she has had sinus congestion, mostly left sided. Discolored nasal drainage, fatigue, body aches. Has tried OTCs and not helpful. Not improving. Her medications were reviewed today and her list is now up to date. Medications Current Outpatient Medications Medication Sig predniSONE (DELTASONE) 20 mg tablet 1 tablet three times a day for 3 days, then 2 times a day for 3days, the one daily for 3 days. levoFLOXacin (LEVAQUIN) 500 mg tablet Take 1 tablet by mouth once daily for 10 days. clonazePAM (KLONOPIN) 0.5 mg tablet Take 1 tablet by mouth two times a day for 90 days. albuterol HFA (VENTOLIN HFA) 90 mcg/actuation inhaler Inhale 2 Puffs as instructed every 4 hours asneeded for wheezing/shortness of breath. fluticasone-salmeterol HFA (ADVAIR HFA) 230-21 mcg/actuation inhaler Inhale 2 Puffs as instructed two times a day. montelukast (SINGULAIR) 10 mg tablet Take 1 tablet by mouth daily at bedtime. budesonide-formoterol (SYMBICORT) 160-4.5 mcg/actuation inhaler Inhale 2 Puffs as instructed twice daily. lansoprazole (PREVACID) 30 mg capsule Take 1 capsule by mouth once daily. simvastatin (ZOCOR) 40 mg tablet Take 1 tablet by mouth daily at bedtime. sucralfate (CARAFATE) 1 gram tablet Take 1 tablet by mouth before meals and at bedtime. Estradiol (ESTRACE) 0.5 mg tablet Take 1 tablet by mouth once daily. imipramine HCl (TOFRANIL) 25 mg tablet Take 2 tablets by mouth daily at bedtime. fexofenadine (NAN) 180 mg tablet Take 1 tablet by mouth once daily. Conj Estrog-Medroxyprogest Debra 0.3-1.5 mg per tablet Take 1 tablet by mouth once daily. GEMTESA 75 mg tablet Take 1 tablet by mouth every afternoon. Albuterol Sulfate 1.25 mg/3 mL nebulizer solution Use 1 Ampule via nebulizer every 6 hours as needed for wheezing/shortness of breath. ipratropium (ATROVENT) 0.02 % nebulizer solution Use 2.5 mL via nebulizer four times daily as needed for wheezing/shortness of breath. calcium carb/vit D2/minerals (CALTRATE PLUS ORAL) Take 1 capsule by mouth once daily. fluticasone (FLONASE) 50 mcg/actuation nasal spray Use 1 Meraux in each nostril twice daily. VIA SPACER THEN RINSE AND GARGLE MOUTH WITH WATER. LOPERAMIDE HCL (IMODIUM ORAL) Take by mouth as needed. vit e acetate/gly/dimeth/water(CETAPHIL MOISTURIZING LOTION) apply twice daily No current facility-administered medications for this visit. ALLERGIES Allergen Reactions Amoxicillin Rash Rash a few days into a course of treatment. Noted that had not reacted to test dose penicillin but developed rash after a few days on amoxicillin. Aspirin [Salicylate* Swelling, Shortness of Breath wheezing,swelling lips,rash,hives Codeine Hives Vicodin [Hydrocodon* Hives Cefdinir Itching Itchy scaly rash. (Patient may take penicillin and other penicillin type antibiotics. See allergyvisit on 01/08/23) Demerol [Meperidine* Rash Tylenol [Acetaminop* Intolerance, Shortness of Breath asthma; makes it hard for her to breathe Ambien [Zolpidem] Intolerance Was sleepwalking (arranging books [...] tests are unreliable for predicting delayed reactions. Toradol [Ketorolac * Swelling Ultram [Tramadol Hc* Other: See Comments chest pains Vancomycin Other: See Comments Wheezing after taking, legs swollen and tongue swelling and scratchy neck Venlafaxine GI Upset Zithromax [Azithrom* Itching Mirtazapine Other: See Comments Hand shakes. ACTIVE PROBLEM LIST Cervical Spondylosis Without Myelopathy - 07/20/2020 Lumbosacral Spondylosis Without Myelopathy - 07/20/2020 Spinal Stenosis, Lumbar Region, Without Neurogenic Claudication - 07/20/2020 Nasal Polyposis - 01/16/2017 Serrated Adenoma of Colon - 07/29/2014 Osteoporosis - 05/24/2013 Ddd (Degenerative Disc Disease), Lumbosacral - 09/07/2011 Fibromyalgia - 07/27/2009 Esophageal Reflux - 08/05/2008 Sinusitis, Chronic - 06/21/2008 Chronic Rhinitis - 02/27/2006 Pure Hypercholesterolemia Irritable Bowel Syndrome Anxiety and Depression - 06/12/2005 Other Chronic Cystitis - 06/04/2005 Asthma With Chronic Obstructive Pulmonary Disease (Copd) ([facility]) - 05/24/2005 Menopause Syndrome - 01/19/2005 Social History Tobacco Use Smoking status: Never Smokeless tobacco: Never Tobacco comments: ETS from parents in childhood home. Currently also has some household ETS. 03/17/2018. Vaping Use Vaping status: Never Used Substance Use Topics Alcohol use: Not Currently Drug use: No Review of Systems HENT: Positive for congestion, rhinorrhea, sinus pressure and sinus pain. OBJECTIVE There were no vitals taken for this visit. Physical Exam Constitutional: General: She is awake. She is not in acute distress. Appearance: Normal appearance. She is ill-appearing. She is not toxic-appearing or diaphoretic. HENT: Head: Normocephalic. Nose: Right Sinus: No maxillary sinus tenderness or frontal sinus tenderness. Left Sinus: Frontal sinus tenderness present. No maxillary sinus tenderness. Pulmonary: Effort: Pulmonary effort is normal. No respiratory distress. Neurological: General: No focal deficit present. Mental Status: She is alert and oriented to person, place, and time. Mental status is at baseline. Psychiatric: Mood and Affect: Mood normal. Behavior: Behavior normal. Behavior is cooperative. Thought Content: Thought content normal. Judgment: Judgment normal. ASSESSMENT/PLAN: 1. Acute non-recurrent frontal sinusitis - ICD9: 461.1, ICD10: J01.10 - Will begin treatment with as per antibiotic as written, see orders - The patient should also be given OTC cough and cold meds as needed, warm salt water gargles, throat lozenges and/or OTC throat spray as needed, and nasal saline gtts and suction prn for the first 5-7 days of treatment. - Supportive care with plenty of fluids, rest, and analgesia prn. - Follow up in 3-5 days if symptoms persist or worsen. - PREDNISONE 20 MG TABLET - LEVOFLOXACIN 500 MG TABLET Portions of this note have been entered by ancillary staff. I have reviewed and when necessary edited, so that they are an adequate record of my encounter with this patient Please note that parts of this document were created using voice recognition software and therefore may contain grammatical errors. Patient verbalizes understanding of instructions from today's visit and in agreement with treatmentplan. Questions answered. Agrees to call the office [...] as well as compliance with taking medications. Age- appropriate health preventative measures were discussed. Return if symptoms worsen or fail to improve, for Keep next scheduled appointment.. Nuno Benson APRN-JACKIE documented in this encounterW[facility] Telephone encounter Note * Telephone Encounter - Dayan Dial - 03/16/2024 8:07 AM EST Prescription Refill Information The patient has been identified by name and date of : Yes Caregiver verified no other encounters exist for this prescription request: Yes Caregiver confirmed with patient/requestor that no other refills are due, in the near future, with this provider at this time: Yes The last office visit in the department: 11-01-23 Does the patient have a future office visit with this provider/department: Yes Requested Prescriptions Pending Prescriptions Disp Refills clonazePAM (KLONOPIN) 0.5 mg tablet 60 tablet 2 Sig: Take 1 tablet by mouth two times a day for 90 days. Dayan Kendall March 16, 2024 8:07 AM [facility]11-11-2024 Miscellaneous Notes* Telephone Encounter - Dayan Dial - 03/16/2024 8:07 AM EST Prescription Refill Information The patient has been identified by name and date of : Yes Caregiver verified no other encounters exist for this prescription request: Yes Caregiver confirmed with patient/requestor that no other refills are due, in the near future, with this provider at this time: Yes The last office visit in the department: 11-01-23 Does the patient have a future office visit with this provider/department: Yes Requested Prescriptions Pending Prescriptions Disp Refills clonazePAM (KLONOPIN) 0.5 mg tablet 60 tablet 2 Sig: Take 1 tablet by mouth two times a day for 90 days. Dayan Kendall March 16, 2024 8:07 AM documented in this encounterWvumed[facility]09-19-[facility]24 Telephone encounter Note * Telephone Encounter - Ivonne Hong - 01/23/2024 8:18 AM EDT Prescription Refill Information The patient has been identified by name and date of : Yes Caregiver verified no other encounters exist for this prescription request: Yes Caregiver confirmed with patient/requestor that no other refills are due, in the near future, with this provider at this time: Yes The last office visit in the department: 10/31 Does the patient have a future office visit with this provider/department: Yes Requested Prescriptions Pending Prescriptions Disp Refills albuterol HFA (VENTOLIN HFA) 90 mcg/actuation inhaler 18 g 5 Sig: Inhale 2 Puffs as instructed every 4 hours as needed for wheezing/shortness of breath. Ivonne Hong January 23, 2024 8:18 AM [facility]09-19-2024 Miscellaneous Notes* Telephone Encounter - Ivonne Hong - 01/23/2024 8:18 AM EDT Prescription Refill Information The patient has been identified by name and date of : Yes Caregiver verified no other encounters exist for this prescription request: Yes Caregiver confirmed with patient/requestor that no other refills are due, in the near future, with this provider at this time: Yes The last office visit in the department: 10/31 Does the patient have a future office visit with this provider/department: Yes Requested Prescriptions Pending Prescriptions Disp Refills albuterol HFA (VENTOLIN HFA) 90 mcg/actuation inhaler 18 g 5 Sig: Inhale 2 Puffs as instructed every 4 hours as needed for wheezing/shortness of breath. Ivonne Hong January 23, 2024 8:18 AM documented in this encounterWvumedicine [facility]09-17-2024 Telephone encounter Note * Telephone Encounter - Edda Oconnor MD - 01/21/2024 9:14 PM EDT The following approved medication requests have been transmitted electronically. Requested Prescriptions Signed Prescriptions Disp Refills clonazePAM (KLONOPIN) 0.5 mg tablet 60 tablet 2 Sig: Take 1 tablet by mouth two times a day for 90 days. Patient should start on February 11, 2024. Authorizing Provider: EDDA OCONNOR MD Had 1 RF on med so would not last till April 26 appointment. Sent new RX to replace prior one so would last till follow up Patient requested when in with brother for his appointment [facility]09-17-2024 Miscellaneous Notes* Telephone Encounter - Edda Oconnor MD - 01/21/2024 9:14 PM EDT The following approved medication requests have been transmitted electronically. Requested Prescriptions Signed Prescriptions Disp Refills clonazePAM (KLONOPIN) 0.5 mg tablet 60 tablet 2 Sig: Take 1 tablet by mouth two times a day for 90 days. Patient should start on February 11, 2024. Authorizing Provider: EDDA OCONNOR MD Had 1 RF on med so would not last till April 26 appointment. Sent new RX to replace prior one so would last till follow up Patient requested when in with brother for his appointment documented in this encounterWvumedicine [facility]09-13-2024 History of Present illness Narrative* Mary Lou Nicholson MD - 01/17/2024 11:45 AM EDT Images from the original note were not included. . Respiratory [place] Note Patient name: Chey Jeffers PCP: Edda Oconnor MD CC: Follow-up asthma HPI: Chey Jeffers 63 year old female non-smoker with PMH significant for ankylosing spondylitis, depression, GERD, nasal polyposis, recurrent sinusitis and asthma. Current therapy consists of Symbicort and as needed albuterol. At [facility], she has had persistently elevated Al, was seeing allergy/immunology, Dr. Garcia, with consideration for starting Dupixent but patient stated she would not go back due to delayed reaction to PCN. Allergen skin test for penicillin (delayed rxn), skin testing for 30inhalant allergens negative and and ingestion challenge test that were all negative. Having significant issues with allergies specifically ragweed, mainly manifested as sinusitis. Denies increased shortness of breath, wheezing, cough or sputum production. Saw ENT physician who is recommending sinussurgery. She has recurrence of her nasal polyposis. She is compliant with use of her Symbicort. Shedenies need for use of her albuterol. DATA: ASTHMA CONTROL TEST Date: 01/17/2024 In the last 4 weeks, how much of the time did your asthma keep you from getting as much done at work or home that you wanted to do? None of the time (5) In the last 4 weeks, how often have you had shortness of breath? Once or twice per week (4) In the last 4 weeks, how often did your asthma symptoms (wheezing, coughing, shortness of breath, chest tightness or pain) wake you up at night or earlier than usual? Once or twice (4) In the last 4 weeks, how often have you used your rescue inhaler or nebulizer medication (such as Albuterol, Proventil, Ventolin, Maxair, Xoponex, or Primatene Mist)? Once a week or less (4) In the last 4 weeks, how would you rate your asthma control? Well controlled (4) Total: more than 20 SERVICE DATE: 01/17/2024 SERVICE TIME: 11:28 AM Oral Exhaled Nitric Oxide measurement: 88.0 (ppb) (A) Oral Exhaled Nitric Oxide measurement (Previous Encounters) Test Date Oral Exhaled Nitric Oxide (ppb) 01/17/2024 88.0 (A) 12/03/2022 49.0 (A) 06/04/2022 95.0 (A) 08/17/2021 109.0 (A) 12/21/2019 216.0 (A) PAST MEDICAL HISTORY Diagnosis Date Abnormal ultrasound of breast 06/17/2013 Acute gastritis Ankylosing spondylitis (HCC) Anxiety and depression 06/12/2005 Asthma Bilateral renal cysts 03/11/2015 Calculus of kidney Dysthymic disorder Depression (non-psychotic) Enterocolitis due to Clostridium difficile 01/12/2015 Esophageal reflux HNP (herniated nucleus pulposus), lumbar 08/22/2011 Intrinsic asthma, unspecified 08/05/2008 Irritable bowel syndrome 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 Mazariegos [facility]. Pure hypercholesterolemia Serrated adenoma of colon 07/29/2014 Symptomatic menopausal or female climacteric states Unspecified sinusitis (chronic) 06/21/2008 ALLERGIES Allergen Reactions Amoxicillin Rash Rash a few days into a course of treatment. Noted that had not reacted to test dose penicillin but developed rash after a few days on amoxicillin. Aspirin [Salicylate* Swelling, Shortness of Breath wheezing,swelling lips,rash,hives Codeine Hives Vicodin [Hydrocodon* Hives Cefdinir Itching Itchy scaly rash. (Patient may take penicillin and other penicillin type antibiotics. See allergyvisit on 01/08/23) Demerol [Meperidine* Rash Tylenol [Acetaminop* Intolerance, Shortness of Breath asthma; makes it hard for her to breathe Ambien [Zolpidem] Intolerance Was sleepwalking (arranging books [...] tests are unreliable for predicting delayed reactions. Toradol [Ketorolac * Swelling Ultram [Tramadol Hc* Other: See Comments chest pains Vancomycin Other: See Comments Wheezing after taking, legs swollen and tongue swelling and scratchy neck Venlafaxine GI Upset Zithromax [Azithrom* Itching Mirtazapine Other: See Comments Hand shakes. fluticasone-salmeterol HFA (ADVAIR HFA) 230-21 mcg/actuation inhaler Inhale 2 Puffs as instructed two times a day. montelukast (SINGULAIR) 10 mg tablet Take 1 tablet by mouth daily at bedtime. budesonide-formoterol (SYMBICORT) 160-4.5 mcg/actuation inhaler Inhale 2 Puffs as instructed twice daily. lansoprazole (PREVACID) 30 mg capsule Take 1 capsule by mouth once daily. simvastatin (ZOCOR) 40 mg tablet Take 1 tablet by mouth daily at bedtime. clonazePAM (KLONOPIN) 0.5 mg tablet Take 1 tablet by mouth two times a day for 120 days. sucralfate (CARAFATE) 1 gram tablet Take 1 tablet by mouth before meals and at bedtime. Estradiol (ESTRACE) 0.5 mg tablet Take 1 tablet by mouth once daily. imipramine HCl (TOFRANIL) 25 mg tablet Take 2 tablets by mouth daily at bedtime. fexofenadine (NAN) 180 mg tablet Take 1 tablet by mouth once daily. Conj Estrog-Medroxyprogest Debra 0.3-1.5 mg per tablet Take 1 tablet by mouth once daily. GEMTESA 75 mg tablet Take 1 tablet by mouth every afternoon. albuterol HFA (VENTOLIN HFA) 90 mcg/actuation inhaler Inhale 2 Puffs as instructed every 4 hours asneeded for wheezing/shortness of breath. Albuterol Sulfate 1.25 mg/3 mL nebulizer solution Use 1 Ampule via nebulizer every 6 hours as needed for wheezing/shortness of breath. ipratropium (ATROVENT) 0.02 % nebulizer solution Use 2.5 mL via nebulizer four times daily as needed for wheezing/shortness of breath. calcium carb/vit D2/minerals (CALTRATE PLUS ORAL) Take 1 capsule by mouth once daily. fluticasone (FLONASE) 50 mcg/actuation nasal spray Use 1 Meraux in each nostril twice daily. VIA SPACER THEN RINSE AND GARGLE MOUTH WITH WATER. LOPERAMIDE HCL (IMODIUM ORAL) Take by mouth as needed. vit e acetate/gly/dimeth/water(CETAPHIL MOISTURIZING LOTION) apply twice daily Social History Tobacco Use Smoking status: Never Smokeless tobacco: Never Tobacco comments: ETS from parents in childhood home. Currently also has some household ETS. 03/17/2018. Vaping Use Vaping status: Never Used Substance Use Topics Alcohol use: Not Currently Drug use: No PMH, Social history, family history and surgical history reviewed and updated in EMR REVIEW OF SYSTEMS: CONSTITUTIONAL: No fevers, chills, nightsweats, unintended weight loss HEENT: Headaches, sinus congestion, drainage CARDIOVASCULAR: No chest pain, dyspnea, palpitations, orthopnea, edema. PULM: See HPI GI: No dysphagia/odynophagia, problematic reflux MUSC-SKEL: No new joint pain, swelling, or erythema. PSY: No concerns regarding depression, anxiety INTEGUMENTARY: No new skin changes, or rashes PHYSICAL EXAMINATION: BP 123/67 Pulse 101 Wt 145 lb (65.8kg) SpO2 98% General Appearance: Age appropriate, NAD. Skin: No rashes. Head: Normocephalic, no masses, lesions, tenderness or abnormalities. Eyes: Sclera, conjunctiva normal. Oropharynx: No oral lesions or thrush. Neck: No JVD, no masses, no adenopathy. Lungs: Not labored, normal to percussion, no wheezes or crackles. Heart: Regular rate and rhythm, no murmurs or gallop. Extremities: No edema clubbing. Assessment/Plan: 1. Severe persistent asthma uncomplicated -Exhaled nitric oxide level remains markedly elevated -Change inhaled therapy to high-dose Advair HFA. Patient intolerant of powdered form inhalers -Continue albuterol as needed -Follow exhaled nitric oxide level -May need to start biologic 2. Chronic sinusitis -Treatment per ENT 3. Nasal polyposis -Treatment per ENT Mary Lou Nicholson MD [facility] [place] documented in [facility] encounterW[facility] Procedure note* Ofe Ruff RPFT - 01/17/2024 11:27 AM EDTAssociated Order(s): NITRIC OXIDE, EXHALED RESPIRATORY THERAPY ORAL EXHALED NITRIC OXIDE SERVICE DATE: 01/17/2024 SERVICE TIME: 11:28 AM Oral Exhaled Nitric Oxide measurement: 88.0 (ppb) (A) Normal: Adult <25 ppb, pediatric (<12 years) <20 ppb High Normal / Increased: Adult 25-50 ppb, pediatric (<12 years) 20-35 ppb Moderately raised exhaled Nitric Oxide may indicate underlying inflammation, but note that: Cold and influenza can raise exhaled Nitric Oxide and some patients have higher baseline exhaled Nitric Oxide levels than others. High: Adult >50 ppb, pediatric (<12 years) >35 ppb Indicative of ongoing eosinophilic inflammation. Symptomatic patient likely to respond to steroids. Possible causes (if already on steroids): Poor compliance, recent allergen exposure, steroid dose inadequate, and steroid resistance. Note that not all patients with high exhaled nitric oxide levels display symptoms. Oral Exhaled Nitric Oxide measurement (Previous Encounters) Test Date Oral Exhaled Nitric Oxide (ppb) 01/17/2024 88.0 (A) 12/03/2022 49.0 (A) 06/04/2022 95.0 (A) 08/17/2021 109.0 (A) 12/21/2019 216.0 (A) NAME: LA Goddard PATIENT NAME: Chey Jeffers DATE: January 17, 2024 TIME: 11:28 AM [facility]09-13-[facility] Procedure note* Ofe Ruff RPFT - 01/17/2024 11:27 AM EDTAssociated Order(s): NITRIC OXIDE, EXHALED RESPIRATORY THERAPY ORAL EXHALED NITRIC OXIDE SERVICE DATE: 01/17/2024 SERVICE TIME: 11:28 AM Oral Exhaled Nitric Oxide measurement: 88.0 (ppb) (A) Normal: Adult <25 ppb, pediatric (<12 years) <20 ppb High Normal / Increased: Adult 25-50 ppb, pediatric (<12 years) 20-35 ppb Moderately raised exhaled Nitric Oxide may indicate underlying inflammation, but note that: Cold and influenza can raise exhaled Nitric Oxide and some patients have higher baseline exhaled Nitric Oxide levels than others. High: Adult >50 ppb, pediatric (<12 years) >35 ppb Indicative of ongoing eosinophilic inflammation. Symptomatic patient likely to respond to steroids. Possible causes (if already on steroids): Poor compliance, recent allergen exposure, steroid dose inadequate, and steroid resistance. Note that not all patients with high exhaled nitric oxide levels display symptoms. Oral Exhaled Nitric Oxide measurement (Previous Encounters) Test Date Oral Exhaled Nitric Oxide (ppb) 01/17/2024 88.0 (A) 12/03/2022 49.0 (A) 06/04/2022 95.0 (A) 08/17/2021 109.0 (A) 12/21/2019 216.0 (A) NAME: LA Goddard PATIENT NAME: Chey Jeffers DATE: January 17, 2024 TIME: 11:28 AM documented in this encounterW[facility]09-13-[facility] History of Present illness Narrative* Ofe Ruff RPFT - 01/17/2024 11:20 AM EDT PULM FUNCTION: Provider: Mary Lou Nicholson MD Assisting Tech: fOe Ruff RPFT Exhaled Nitric Oxide: 1 documented in this encounterW[facility]09-09-2024 Telephone encounter Note * Telephone Encounter - Ellen Arias - 01/13/2024 9:17 AM EDT Prescription Refill Information The patient has been identified by name and date of : Yes Caregiver verified no other encounters exist for this prescription request: Yes Caregiver confirmed with patient/requestor that no other refills are due, in the near future, with this provider at this time: Yes The last office visit in the department: 11-01-23 Does the patient have a future office visit with this provider/department: Yes Requested Prescriptions Pending Prescriptions Disp Refills montelukast (SINGULAIR) 10 mg tablet 90 tablet 3 Sig: Take 1 tablet by mouth daily at bedtime. Ellen Kendall January 13, 2024 9:17 AM [facility] Work Phone: [phone] Miscellaneous Notes* Telephone Encounter - Ellen Arias - 01/13/2024 9:17 AM EDT Prescription Refill Information The patient has been identified by name and date of : Yes Caregiver verified no other encounters exist for this prescription request: Yes Caregiver confirmed with patient/requestor that no other refills are due, in the near future, with this provider at this time: Yes The last office visit in the department: 11-01-23 Does the patient have a future office visit with this provider/department: Yes Requested Prescriptions Pending Prescriptions Disp Refills montelukast (SINGULAIR) 10 mg tablet 90 tablet 3 Sig: Take 1 tablet by mouth daily at bedtime. Ellen Kendall January 13, 2024 9:17 AM documented in this encounterW[facility]07-22-2024 Telephone encounter Note * Telephone Encounter - Winnie White - 11/25/2023 8:35 AM EDT Patient calling on the status of refill request. [facility] Miscellaneous Notes* Telephone Encounter - Winnie White - 11/25/2023 8:35 AM EDT Patient calling on the status of refill request. * Telephone Encounter - Ellen Herbert - 11/23/2023 8:20 AM EDT Patient has been identified by name and date of : Yes Patient phones for refill(s): Requested Prescriptions Pending Prescriptions Disp Refills lansoprazole (PREVACID) 30 mg capsule 90 capsule 3 Sig: Take 1 capsule by mouth once daily. Date of last office visit in primary care: 11/01/2023 Date of next office visit in primary care: 05/04/2024 Please advise. Thank you. Ellen Herbert. documented in this encounterW[facility]07-20-2024 Telephone encounter Note * Telephone Encounter - Ellen Herbert - 11/23/2023 8:20 AM EDT Patient has been identified by name and date of : Yes Patient phones for refill(s): Requested Prescriptions Pending Prescriptions Disp Refills lansoprazole (PREVACID) 30 mg capsule 90 capsule 3 Sig: Take 1 capsule by mouth once daily. Date of last office visit in primary care: 11/01/2023 Date of next office visit in primary care: 05/04/2024 Please advise. Thank you. Ellen Herbert. [facility] Work Phone: [phone] 538-100807-11-2024 Telephone encounter Note* Telephone Encounter - Dayan Dial - 11/14/2023 8:56 AM EDT Prescription Refill Information The patient has been identified by name and date of : Yes Caregiver verified no other encounters exist for this prescription request: Yes Caregiver confirmed with patient/requestor that no other refills are due, in the near future, with this provider at this time: Yes The last office visit in the department: 11-01-23 Does the patient have a future office visit with this provider/department: Yes Requested Prescriptions Pending Prescriptions Disp Refills simvastatin (ZOCOR) 40 mg tablet 90 tablet 3 Sig: Take 1 tablet by mouth daily at bedtime. Dayan Kendall November 14, 2023 8:56 AM [facility]07-11-[facility]24 Miscellaneous Notes* Telephone Encounter - Dayan Dial - 11/14/2023 8:56 AM EDT Prescription Refill Information The patient has been identified by name and date of : Yes Caregiver verified no other encounters exist for this prescription request: Yes Caregiver confirmed with patient/requestor that no other refills are due, in the near future, with this provider at this time: Yes The last office visit in the department: 11-01-23 Does the patient have a future office visit with this provider/department: Yes Requested Prescriptions Pending Prescriptions Disp Refills simvastatin (ZOCOR) 40 mg tablet 90 tablet 3 Sig: Take 1 tablet by mouth daily at bedtime. Dayan Kendall November 14, 2023 8:56 AM documented in this encounterW[facility]07-08-2024 Telephone encounter Note * Telephone Encounter - Martine Yeung - 11/11/2023 9:21 AM EDT Patient said she is out of medication. Wants to know if this can be sent today Said Nuno Benson told her she was sending the refill at her office visit on 11/01/23. [facility]-08-[facility] Miscellaneous Notes* Telephone Encounter - Martine Yeung - 11/11/2023 9:21 AM EDT Patient said she is out of medication. Wants to know if this can be sent today Said Nuno Silvar told her she was sending the refill at her office visit on 11/01/23. * Telephone Encounter - Martine Yeung - 11/11/2023 9:20 AM EDT Prescription Refill Information The patient has been identified by name and date of : Yes Caregiver verified no other encounters exist for this prescription request: Yes Caregiver confirmed with patient/requestor that no other refills are due, in the near future, with this provider at this time: Yes The last office visit in the department: 11/01/23 Does the patient have a future office visit with this provider/department: Yes Requested Prescriptions Pending Prescriptions Disp Refills clonazePAM (KLONOPIN) 0.5 mg tablet 60 tablet 3 Sig: Take 1 tablet by mouth two times a day for 120 days. Martine Kendall November 11, 2023 9:21 AM documented in this encounterW[facility]07-08-2024 Telephone encounter Note * Telephone Encounter - Martine Yeung - 11/11/2023 9:20 AM EDT Prescription Refill Information The patient has been identified by name and date of : Yes Caregiver verified no other encounters exist for this prescription request: Yes Caregiver confirmed with patient/requestor that no other refills are due, in the near future, with this provider at this time: Yes The last office visit in the department: 11/01/23 Does the patient have a future office visit with this provider/department: Yes Requested Prescriptions Pending Prescriptions Disp Refills clonazePAM (KLONOPIN) 0.5 mg tablet 60 tablet 3 Sig: Take 1 tablet by mouth two times a day for 120 days. Martine Kendall November 11, 2023 9:21 AM [facility] Telephone encounter Note* Telephone Encounter - Edda Oconnor MD - 11/04/2023 12:59 PM EDT The following approved medication requests have been transmitted electronically. Requested Prescriptions Pending Prescriptions Disp Refills sucralfate (CARAFATE) 1 gram tablet 360 tablet 3 Sig: Take 1 tablet by mouth before meals and at bedtime. Estradiol (ESTRACE) 0.5 mg tablet 90 tablet 3 Sig: Take 1 tablet by mouth once daily. Edda Oconnor MD [facility]07-01-2024 Miscellaneous Notes* Telephone Encounter - Edda Oconnor MD - 11/04/2023 12:59 PM EDT The following approved medication requests have been transmitted electronically. Requested Prescriptions Pending Prescriptions Disp Refills sucralfate (CARAFATE) 1 gram tablet 360 tablet 3 Sig: Take 1 tablet by mouth before meals and at bedtime. Estradiol (ESTRACE) 0.5 mg tablet 90 tablet 3 Sig: Take 1 tablet by mouth once daily. Edda Oconnor MD * Telephone Encounter - Crissy Ceja - 11/04/2023 9:04 AM EDT Patient also stating an Rx for Estrace was supposed to be refilled after her recent appointment, but the pharmacy did not receive as of yet. She is requesting the lower dose of 0.5. Patient has been identified by name and date of : Yes Patient phones for refill(s): Requested Prescriptions Pending Prescriptions Disp Refills sucralfate (CARAFATE) 1 gram tablet 360 tablet 3 Sig: Take 1 tablet by mouth before meals and at bedtime. Date of last office visit in primary care: 11/01/2023 Date of next office visit in primary care: 05/04/2024 Please advise. Thank you. Crissy Ceja. documented in this encounterW[facility]07-01-2024 Telephone encounter Note * Telephone Encounter - Crissy Ceja - 11/04/2023 9:04 AM EDT Patient also stating an Rx for Estrace was supposed to be refilled after her recent appointment, but the pharmacy did not receive as of yet. She is requesting the lower dose of 0.5. Patient has been identified by name and date of : Yes Patient phones for refill(s): Requested Prescriptions Pending Prescriptions Disp Refills sucralfate (CARAFATE) 1 gram tablet 360 tablet 3 Sig: Take 1 tablet by mouth before meals and at bedtime. Date of last office visit in primary care: 11/01/2023 Date of next office visit in primary care: 05/04/2024 Please advise. Thank you. Crissy Ceja. [facility] History of Present illness Narrative* Anjelica Gary RT(R) - 11/01/2023 9:40 AM EDT Radiology Service Progress Note PATIENT NAME: Chey Jeffers DATE OF SERVICE: November 01, 2023 TIME: 9:33 AM PATIENT IDENTITY VERIFICATION COMPLETED USING TWO (2) IDENTIFIERS: Name and Date of confirmedby patient verbally. FALL SCREENING: Has the patient had 2 falls in the last year or 1 fall with injury or currently using an Ambulatory Assistive Device (Walker, Cane, Wheelchair, Crutches, etc.)? No PATIENT GENDER DATA: Female. status: : No status: NO. PATIENT RELEVANT IMPLANT DATA REVIEWED: Not Applicable PATIENT PRESENTS WITH AN IMPLANTABLE OR ATTACHED LUMBER YARD WORKER: No RADIOLOGY DEPARTMENT: General X-ray: Exam(s) Completed: Spine X-Ray(s): Lumbar AP / LAT / L5-S1 PERIPHERAL IV DATA: Not applicable SIGNED BY: RT Maykel(R) November 01, 2023 9:33 AM documented in this encounterWvumedicine [facility]06-28-2024 History of Present illness Narrative* Nuno Benson APRN.GEOSCIENCE LABORATORY TECHNICIAN - 11/01/2023 8:48 AM EDT Images from the original note were not included. SUBJECTIVE Chey Jeffers is a 62 year old female here today for a check up on her medical problems. Chief Complaint Patient presents with: F/U 6 months HPI Chey Jeffesr is a 62 year old female. She is an established patient of Edda Oconnor MD Here today for a routine follow up. Still with a lot of concerns with stress, anxiety, depression. Lately stressed with working on packing her mom's house and trying to sell it. Mom has dementia. Stress with her relationship. Trying to be a good caregiver to both her mom and her brother. Also with issues with her sinuses right now. Follows with ENT Cannot get to see them soon. Typically treats with Levaquin and medrol dose pack. Also her lower back is bothering her. More to the lowerleft side. More bothersome with reaching and stretching. Doing more moving and lifting with prep for moving her mom in with her. Breathing is doing well. Follows with pulmonary. Stopped her estrogen that was at 1 mg, felt like too much. Wants back on something. Still with getting occasional hot flashes and night sweats. Her medications were reviewed today and her list is now up to date. Medications Current Outpatient Medications Medication Sig clonazePAM (KLONOPIN) 0.5 mg tablet Take 1 tablet by mouth two times a day for 120 days. Do not start before July 08, 2023. montelukast (SINGULAIR) 10 mg tablet Take 1 tablet by mouth daily at bedtime. GEMTESA 75 mg tablet Take 1 tablet by mouth every afternoon. budesonide-formoterol (SYMBICORT) 160-4.5 mcg/actuation inhaler Inhale 2 Puffs as instructed twice daily. albuterol HFA (VENTOLIN HFA) 90 mcg/actuation inhaler Inhale 2 Puffs as instructed every 4 hours asneeded for wheezing/shortness of breath. lansoprazole (PREVACID) 30 mg capsule Take 1 capsule by mouth once daily. simvastatin (ZOCOR) 40 mg tablet Take 1 tablet by mouth daily at bedtime. Albuterol Sulfate [...] (FLONASE) 50 mcg/actuation nasal spray Use 1 Meraux in each nostril twice daily. VIA SPACER THEN RINSE AND GARGLE MOUTH WITH WATER. LOPERAMIDE HCL (IMODIUM ORAL) Take by mouth as needed. vit e acetate/gly/dimeth/water(CETAPHIL MOISTURIZING LOTION) apply twice daily imipramine HCl (TOFRANIL) 25 mg tablet Take 2 tablets by mouth daily at bedtime. fexofenadine (NAN) 180 mg tablet Take 1 tablet by mouth once daily. methylPREDNISolone (MEDROL, DYLON,) 4 mg Dose-Pack Follow dosing instructions, take with food. levoFLOXacin (LEVAQUIN) 750 mg tablet Take 1 tablet by mouth once daily for 7 days. fluconazole (DIFLUCAN) 150 mg tablet Take 1 tablet by mouth one time only for 1 dose. Repeat in 3 days as needed. Conj Estrog-Medroxyprogest Debra 0.3-1.5 mg per tablet Take 1 tablet by mouth once daily. No current facility-administered medications for this visit. ALLERGIES Allergen Reactions Amoxicillin Rash Rash a few days into a course of treatment. Noted that had not reacted to test dose penicillin but developed rash after a few days on amoxicillin. Aspirin [Salicylate* Swelling, Shortness of Breath wheezing,swelling lips,rash,hives Codeine Hives Vicodin [Hydrocodon* Hives Cefdinir Itching Itchy scaly rash. (Patient may take penicillin and other penicillin type antibiotics. See allergyvisit on 01/08/23) Demerol [Meperidine* Rash Tylenol [Acetaminop* Intolerance, Shortness of Breath asthma; makes it hard for her to breathe Ambien [Zolpidem] Intolerance Was sleepwalking (arranging books [...] tests are unreliable for predicting delayed reactions. Toradol [Ketorolac * Swelling Ultram [Tramadol Hc* Other: See Comments chest pains Vancomycin Other: See Comments Wheezing after taking, legs swollen and tongue swelling and scratchy neck Venlafaxine GI Upset Zithromax [Azithrom* Itching Mirtazapine Other: See Comments Hand shakes. ACTIVE PROBLEM LIST Cervical Spondylosis Without Myelopathy - 07/20/2020 Lumbosacral Spondylosis Without Myelopathy - 07/20/2020 Spinal Stenosis, Lumbar Region, Without Neurogenic Claudication - 07/20/2020 Nasal Polyposis - 01/16/2017 Serrated Adenoma of Colon - 07/29/2014 Osteoporosis - 05/24/2013 Ddd (Degenerative Disc Disease), Lumbosacral - 09/07/2011 Fibromyalgia - 07/27/2009 Esophageal Reflux - 08/05/2008 Sinusitis, Chronic - 06/21/2008 Chronic Rhinitis - 02/27/2006 Pure Hypercholesterolemia Irritable Bowel Syndrome Anxiety and Depression - 06/12/2005 Other Chronic Cystitis - 06/04/2005 Asthma With Chronic Obstructive Pulmonary Disease (Copd) ([facility]) - 05/24/2005 Menopause Syndrome - 01/19/2005 Social History Tobacco Use Smoking status: Never Smokeless tobacco: Never Tobacco comments: ETS from parents in childhood home. Currently also has some household ETS. 03/17/2018. Vaping Use Vaping Use: Never used Substance Use Topics Alcohol use: Not Currently Drug use: No Review of Systems Constitutional: Negative. HENT: Positive for rhinorrhea, sinus pressure and sinus pain. Respiratory: Negative. Cardiovascular: Negative. Psychiatric/Behavioral: Positive for dysphoric mood. The patient is nervous/anxious. OBJECTIVE BP 120/86 Pulse 98 Wt 144 lb (65.3kg) SpO2 98% Physical Exam Vitals and nursing note reviewed. [...] Neck: Vascular: No JVD. Trachea: Trachea normal. Cardiovascular: Rate and Rhythm: Normal rate and regular rhythm. Pulses: Normal pulses. Heart sounds: Normal heart sounds. No murmur heard. Pulmonary: Effort: Pulmonary effort is normal. No accessory muscle usage, prolonged expiration or respiratory distress. Breath sounds: Normal breath sounds. Musculoskeletal: Cervical back: Normal and neck supple. Thoracic back: Normal. Lumbar back: Tenderness (paraspinal) present. Decreased range of motion. Back: Comments: Left lumbar muscle region is identified as the bothersome area Skin: General: Skin is warm and dry. Capillary Refill: Capillary refill takes less than 2 seconds. Neurological: General: No focal deficit present. Mental Status: She is alert and oriented to person, place, and time. Mental status is at baseline. Psychiatric: Attention and Perception: Attention and perception normal. Mood and Affect: Mood and affect normal. Speech: Speech normal. Behavior: Behavior normal. Behavior is cooperative. Thought Content: Thought content normal. Cognition and Memory: Cognition and memory normal. Judgment: Judgment normal. ASSESSMENT/PLAN: 1. Chronic sinusitis, unspecified location - ICD9: 473.9, ICD10: J32.9 (primary diagnosis) - Will begin treatment with as per antibiotic as written, see orders - The patient should also be given OTC cough and cold meds as needed, warm salt water gargles, throat lozenges and/or OTC throat spray as needed, and nasal saline gtts and suction prn for the first 5-7 days of treatment. - Supportive care with plenty of fluids, rest, and analgesia prn. - Follow up in 3-5 days if symptoms persist or worsen. - METHYLPREDNISOLONE 4 MG TABLETS IN A DOSE PACK - LEVOFLOXACIN 750 MG TABLET 2. Lumbar pain - ICD9: 724.2, ICD10: M54.50 - XR LUMBAR GENERAL 3V AP/LAT/L5-S1 - METHYLPREDNISOLONE 4 MG TABLETS IN A DOSE PACK 3. Menopause syndrome - ICD9: 627.2, ICD10: N95.1 Can try a conjugated estrogen. - CONJ ESTROGEN-MEDROXYPROGESTERONE 0.3 MG-1.5 MG TABLET 4. Asthma with chronic obstructive pulmonary disease (COPD) (HCC) - ICD9: 493.20, ICD10: J44.89 - Mild intermittent asthma stable - Continue current medications - Avoidance of triggers recommended 5. Anxiety and depression - ICD9: 300.00, 311, ICD10: F41.9, F32.A Manageable but still very present for her, encouraged to continue to seek support from community resources. 6. Caregiver stress syndrome - ICD9: 308.9, ICD10: R45.7 See #5 Portions of this note have been entered by ancillary staff. I have reviewed and when necessary edited, so that they are an adequate record of my encounter with this patient Please note that parts of this document were created using voice recognition software and therefore may contain grammatical errors. Patient verbalizes understanding of instructions from today's visit and in agreement with treatmentplan. Questions answered. Agrees to call the office [...] as well as compliance with taking medications. Age- appropriate health preventative measures were discussed. Return if symptoms worsen or fail to improve, for Keep next scheduled appointment.. Nuno Benson APRN-JACKIE documented in this encounterW[facility]03-[facility] History of Present illness Narrative* Mary Lou Nicholson MD - 07/11/2023 8:45 AM EST Images from the original note were not included. . [facility] [place] Note Patient name: Chey Jeffers PCP: Edda Oconnor MD CC: Follow-up asthma HPI: Chey Jeffers 62 year old female non-smoker with PMH significant for ankylosing spondylitis, depression, GERD, nasal polyposis, sinusitis, and asthma. Current therapy consists of Symbicort and as needed albuterol. Persistently elevated exhaled nitric oxide. At [facility] with Dr. Garcia, she was being considered for use of Dupixent. She had allergen skin test for penicillin, skin testing for 30 to inhalant allergens and ingestion challenge test that were all negative. Patient states that she had adelayed reaction to the amoxicillin with extensive erythematous and papular rash. She states she will not go back to Dr. Garcia. From a pulmonary standpoint she states she has been about the same. Her m ain issue has been recurrent sinusitis with nasal congestion that make her more labored with her breathing especially with exertion. She denies any audible wheeze, cough or sputum production. She hasnoted nocturnal postnasal drip. She has not been compliant with usage of her Flonase nasal spray. DATA: ASTHMA CONTROL TEST Date: 07/11/2023 In the last 4 weeks, how much of the time did your asthma keep you from getting as much done at work or home that you wanted to do? None of the time (5) In the last 4 weeks, how often have you had shortness of breath? Once or twice per week (4) In the last 4 weeks, how often did your asthma symptoms (wheezing, coughing, shortness of breath, chest tightness or pain) wake you up at night or earlier than usual? Not at all (5) In the last 4 weeks, how often have you used your rescue inhaler or nebulizer medication (such as Albuterol, Proventil, Ventolin, Maxair, Xoponex, or Primatene Mist)? A few times per week (3) In the last 4 weeks, how would you rate your asthma control? Completely controlled (5) Total: more than 20 Labs: Component Ref Range & Units 7 mo ago (12/03/22) 5 yr ago (03/25/18) 5 yr ago (03/17/18) Abs Eosin <0.46 k/uL 0.12 0.03 2.67 High R Component Ref Range & Units 7 mo ago IgE <114.0 kU/l 60.1 Reviewed EMR concerning allergy assessment PAST MEDICAL HISTORY Diagnosis Date Abnormal ultrasound of breast 06/17/2013 Acute gastritis Ankylosing spondylitis (HCC) Anxiety and depression 06/12/2005 Bilateral renal cysts 03/11/2015 Calculus of kidney Dysthymic disorder Depression (non-psychotic) Enterocolitis due to Clostridium difficile 01/12/2015 Esophageal reflux HNP (herniated nucleus pulposus), lumbar 08/22/2011 Intrinsic asthma, unspecified 08/05/2008 Irritable bowel syndrome 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 Mazariegos [facility]. Pure hypercholesterolemia Serrated adenoma of colon 07/29/2014 Symptomatic menopausal or female climacteric states Unspecified sinusitis (chronic) 06/21/2008 ALLERGIES Allergen Reactions Amoxicillin Rash Rash a few days into a course of treatment. Noted that had not reacted to test dose penicillin but developed rash after a few days on amoxicillin. Aspirin [Salicylate* Swelling, Shortness of Breath wheezing,swelling lips,rash,hives Codeine Hives Vicodin [Hydrocodon* Hives Cefdinir Itching Itchy scaly rash. (Patient may take penicillin and other penicillin type antibiotics. See allergyvisit on 01/08/23) Demerol [Meperidine* Rash Tylenol [Acetaminop* Intolerance, Shortness of Breath asthma; makes it hard for her to breathe Ambien [Zolpidem] Intolerance Was sleepwalking (arranging books [...] tests are unreliable for predicting delayed reactions. Toradol [Ketorolac * Swelling Ultram [Tramadol Hc* Other: See Comments chest pains Vancomycin Other: See Comments Wheezing after taking, legs swollen and tongue swelling and scratchy neck Venlafaxine GI Upset Zithromax [Azithrom* Itching Mirtazapine Other: See Comments Hand shakes. clonazePAM (KLONOPIN) 0.5 mg tablet Take 1 tablet by mouth two times a day for 120 days. Do not start before July 08, 2023. montelukast (SINGULAIR) 10 mg tablet Take 1 tablet by mouth daily at bedtime. Estradiol (ESTRACE) 1 mg tablet Take 1 tablet by mouth once daily. GEMTESA 75 mg tablet Take 1 tablet by mouth every afternoon. budesonide-formoterol (SYMBICORT) 160-4.5 mcg/actuation inhaler Inhale 2 Puffs as instructed twice daily. albuterol HFA (VENTOLIN HFA) 90 mcg/actuation inhaler Inhale 2 Puffs as instructed every 4 hours asneeded for wheezing/shortness of breath. lansoprazole (PREVACID) 30 [...] (FLONASE) 50 mcg/actuation nasal spray Use 1 Meraux in each nostril twice daily. VIA SPACER [...] Alcohol use: Not Currently Drug use: No PMH, Social history, family history and surgical history reviewed and updated in EMR REVIEW OF SYSTEMS: CONSTITUTIONAL: No fevers, chills, nightsweats, unintended weight loss HEENT: Positive nasal congestion/sinus symptoms, postnasal drip CARDIOVASCULAR: No chest pain, dyspnea, palpitations, edema. PULM: See HPI GI: No dysphagia/odynophagia, problematic reflux. PSY: No concerns regarding depression, anxiety INTEGUMENTARY: No new skin changes or rashes PHYSICAL EXAMINATION: BP 138/70 Pulse 96 Resp 16 Wt 149 lb 9.6 oz (67.9kg) SpO2 98% General Appearance: Age-appropriate female, NAD. Skin: Skin color, texture, turgor normal, no suspicious rashes or lesions. Head: Normocephalic, no masses, lesions, tenderness or abnormalities. Nasal congestion Eyes: Sclera, conjunctiva normal. Oropharynx: No oral lesions or thrush. Neck: No JVD, no masses. Lungs: Not labored, normal to percussion, no wheezes or crackles. Heart: Regular rate and rhythm, no murmurs or gallops. Extremities: No edema or clubbing. Lymph Nodes: No cervical lymphadenopathy and No supraclavicular lymphadenopathy. Assessment/Plan: 1. Moderate persistent asthma, uncomplicated -She will continue on Symbicort with as needed albuterol -Exhaled nitric oxide level at next visit 2. Chronic maxillary sinusitis -Continue allergy medication -Instructed patient to use Flonase 1 spray each nostril once daily at bedtime Mary Lou Nicholson MD Res[facility] [place] documented in this encounterWvumed[facility]03-01-2024 Miscellaneous Notes* Telephone Encounter - Edda Oconnor MD - 07/05/2023 6:32 PM EST The following approved medication requests have been transmitted electronically. Requested Prescriptions Signed Prescriptions Disp Refills clonazePAM (KLONOPIN) 0.5 mg tablet 60 tablet 3 Sig: Take 1 tablet by mouth two times a day for 120 days. Do not start before July 08, 2023. Authorizing Provider: EDDA OCONNOR MD * Telephone Encounter - Jahaira Dickerson LPN - 07/04/2023 4:14 PM EST NELSY 05/01/23 Next OV 11/01/23 * Telephone Encounter - Lisa Craig - 07/04/2023 1:38 PM EST Patient has been identified by name and date of : Yes Requested Prescriptions Pending Prescriptions Disp Refills clonazePAM (KLONOPIN) 0.5 mg tablet 60 tablet 5 Sig: Take 1 tablet by mouth two times a day for 180 days. RX INSTRUCTIONS: Patient aware RX will be sent to pharmacy. No need to nofity patient. Controlled medication - must be call in. Lisa Kendall documented in this encounterWvumedicine [facility]02-27-2024 Miscellaneous Notes* Telephone Encounter - Ivonne Jett LPN - 07/02/2023 2:54 PM EST Spoke with Maci. Patient has picked up generic RX at [facility] per insurance claim. OK to withdrawPA request. Ivonne Jett LPN * Telephone Encounter - Ceci Steven RN - 07/02/2023 9:20 AM EST Received a call from Maci at [phone] regarding prior auth request for brand name Symbicort. They is asking if the patient can try the generic/alternative therapeutic med or if the patient needsthe name brand on due to effectiveness. Ceci Steven, RN documented in this [facility]12-27-2023 Instructions* Patient Instructions* Edda Oconnor MD - 05/01/2023 2:24 PM [...] doing yoga, reading, etc). documented in this encounterWvumedicine [facility]12-27-2023 History of Present illness Narrative* Edda Oconnor MD - 05/01/2023 1:44 PM EST This note was created using NoteWriter. Subjective [...] her oxygen like supposed to; also not tellingdaughter when taking SL NTG. Also taking care of brother. Cannot nap in day because needs to take care of family. Laurent helps some in AM with her brother. 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 Needing lesion on right side of nose removed in [place] through [facility], Has inus infection symptoms ongoing since March. Could not smell or taste food for Thanksgiving or [place]. Pain and pressure in sinuses. Blowing out [...] unspecified 08/05/2008 Irritable bowel syndrome 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 Mazariegos [facility]. Pure hypercholesterolemia Serrated adenoma of colon 07/29/2014 [...] 2 Puffs as instructed every 4 hours asneeded for wheezing/shortness of breath. lansoprazole (PREVACID) 30 [...] (FLONASE) 50 mcg/actuation nasal spray Use 1 Meraux in each nostril twice daily. VIA SPACER [...] Abs Lymph 1.00 - 4.00 k/uL 2.04 [place]% % 7.5 Abs [place] <0.87 k/uL 0.81 Eosin% % 6.8 Abs [...] the date of the service which included [id number] patient care, completing clinical documentation, obtaining and/or reviewing separately obtained history, performing a medically appropriate examination, counseling and educating the patient/family/caregiver, ordering medications, tests, or procedures, independently interpreting results (not separately reported), and communicating results to the patient/family/caregiver. Edda Oconnor MD documented in this encounterWvumed[facility]10-04-2023 Miscellaneous Notes* Telephone Encounter - Melanie Steel MSW - 02/06/2023 9:21 AM EDT Sw spoke with patient regarding caregiver support needs. Patient reports that she takes care of her brother with disabilities and also assists with care of elderly mother that lives down the road. Patient notes that she is co guardian of brother. Her mother also shares guardianship of brother. Brother lives nutritionist public health with patient. Patient reports that brother needs nutritionist public health care. Patient reports that brother is non verbal. Patient has to help brother with toileting, eating,bathing/grooming,mobility. Sw and patient discussed [facility] for services for brother. Patient reports that brother has received services from [facility]. The last patient spoke with manager of case management from [employer] was this spring and was told they did not have any home care aides available to assist with care. Patient has not had contact since with [employer] case manager. Sw and patient also discussed [employer] [facility] [employer] [employer]. Sw notes [employer] [facility] [employer] could be helpful to assist patient with meeting in the home and helping with patient social service needs. Patient would like Ward to send her information regarding [employer]. Ward will obtain new [employer] [facility] information and mail to patient along with [facility] resource guide. * Telephone Encounter - Melanie Steel MSW - 01/30/2023 1:12 PM EDT Ward left message for patient to return call to discuss caregiver social service needs. Ward will also send patient My Chart message. documented in this encounterWvumedicine [facility]10-02-2023 Miscellaneous Notes* Telephone Encounter - Dulce Centeno RN - 02/04/2023 1:12 PM EDT Pt called and is notified of providers message and instructions. Pt voices understanding. Pt statesshe also needs Diflucan called in because she [...] 04/28/2019 20 Please advise. Thank you. Dulce Centeno RN * Telephone Encounter - Nuno Benson APRN.JACKIE - 02/04/2023 12:13 PM EDT Please let her know I sent a short term prednisone burst for her. * Telephone Encounter - Josseline Jc LPN - 02/04/2023 11:27 AM EDT Spoke with pt and her left arm [...] help. Please advise pt. Josseline Jc LPN * Telephone Encounter - Martha Landis RN - 02/04/2023 11:15 AM EDT Pt on an antibiotic for a sinus infection from and requesting Diflucan for a yeast infection. Ptstates she also got pneumonia shot in her arm and now it is itching and red. Wants a medrol pack. Call got disconnected. Will call her back. documented in this encounterWvumedicine [facility]09-15-2023 Instructions* Patient Instructions* Jenny Salas APRN.GEOSCIENCE LABORATORY TECHNICIAN - 01/18/2023 1:53 PM EDT ASSESSMENT/PLAN: 1. [...] added to allergy list E Yohana [employer] ENGRAVER Student TEACHING PROVIDER (Physician/PA/CORE MAKER HELPER) NOTE OF PERSONAL INVOLVEMENT IN CARE: I have personally seen and examined the patient and performed the medical decision-making components. I have reviewed the Advanced Practice Registered Nurse (CORE MAKER HELPER) Student's documentation and verified the findings in the note as written. Any additions or changes are noted in bold/italics. Signature: Jenny Salas Date: 01/18/2023 Time: 1:52 PM documented in this encounterWvumedicine [facility]09-15-2023 History of Present illness Narrative* Jenny Salas APRN.CNP - 01/18/2023 10:00 AM EDT Subjective HPI ROS Objective Physical Exam * Jenny Salas APRN.CNP - 01/18/2023 9:53 AM EDT Images from the original note were not included. This note was created using NoteWriter. Subjective [...] and rhinorrhea. Pertinent negatives include no cough, fever,shortness of breath or sore throat. Review of [...] kg (147 lb 12.8 oz) SpO2 98% BMI28.87 kg/m PAST MEDICAL HISTORY Diagnosis Date Abnormal ultrasound of breast 06/17/2013 Acute gastritis Ankylosing spondylitis (HCC) Anxiety and depression 06/12/2005 Bilateral renal cysts 03/11/2015 Calculus of kidney Dysthymic disorder Depression (non-psychotic) Enterocolitis due to Clostridium difficile 01/12/2015 Esophageal reflux HNP (herniated nucleus pulposus), lumbar 08/22/2011 Intrinsic asthma, unspecified 08/05/2008 Irritable bowel syndrome Irritable bowel FCI 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 01/16/2017 Menopause syndrome 01/19/2005 Myalgia and myositis, unspecified Nasal polyposis Polypectomy 03/2017 Dr. Mazariegos [facility]. Pure hypercholesterolemia Serrated adenoma of colon 07/29/2014 [...] 2006 Septoplasty SINUS SURGERY PROCEDURE Bilateral 04/02/[address] [facility]. Mazariegos. Sinonasal polypectomy, revision maxillary [...] [Escitalopram Oxalate], Lyrica [Pregabalin], Macrobid [Nitrofurantoin Monohyd/M-Cryst], Maprotiline,Monurol [Fosfomycin], Mucomyst [Acetylcysteine], Oxycodone, Prednisone, Toradol [Ketorolac [...] 2 Puffs as instructed every 4 hours asneeded for wheezing/shortness of breath. lansoprazole (PREVACID) 30 [...] (FLONASE) 50 mcg/actuation nasal spray Use 1 Meraux in each nostril twice daily. VIA SPACER [...] added to allergy list E Yohana [employer] P[employer]APH [employer] ENGRAVER Student TEACHING PROVIDER (Physician/PA/CORE MAKER HELPER) NOTE OF PERSONAL INVOLVEMENT IN CARE: I have personally seen and examined the patient and performed the medical decision-making components. I have reviewed the Advanced Practice Registered Nurse (CORE MAKER HELPER) Student's documentation and verified the findings in the note as written. Any additions or changes are noted in bold/italics. Signature: Jenny Salas Date: 01/18/2023 Time: 1:52 PM documented in this encounterWvumedicine [facility]09-14-2023 Miscellaneous Notes* Telephone Encounter - Kristina Herring RN - 01/17/2023 10:51 AM EDT Patient aware of below message. Sent MC message so that she can attach photos. * Telephone Encounter - Viji Garcia MD - 01/17/2023 9:29 AM EDT Recommend that she discontinue amoxicillin if she has not done so already. Will put on her allergy list. She may increase fexofenadine (nan) to 180 mg twice a day for itching. Ask her to upload pictures of the rash onto [employer]. Rx sent to her pharmacy for Diflucan for yeast infections. Viji Garcia MD * Telephone Encounter - Kate Love RN - 01/17/2023 9:03 AM EDT Patient called to report that she has [...] disabled brother. Please advise. documented in this encounterWvumedicine [facility]09-05-2023 Instructions* Patient Instructions* Viji Garcia MD - 01/08/2023 12:35 PM EDT Allergy [...] mouth out after use. documented in this encounterWvumedicine [facility]09-05-2023 History of Present illness Narrative* Viji Garcia MD - 01/08/2023 10:36 AM EDT This is a consultation requested by Ellen Wang PA-C for an allergy and immunology evaluation.My final recommendations will be communicated back to the requesting healthcare provider(s) by way of shared medical record or via [place] mail. Chey Jeffers is a 62 year old female with a history of nonallergic rhinitis, chronic rhinosinusitis with nasal polyposis, severe persistent asthma, GERD and aspirin exacerbated respiratory disease [facility]. Her last visit with me was [...] for a few years as prescribed by [facility] without relief. Discontinued immunotherapy about 6 [...] suffer from frequent sinopulmonary infections. ASTHMA: See SPOKANE ECZEMA: The patient has no history of eczema. URTICARIA:The patient does not have a history of urticaria and/or angioedema. GERD: See SPOKANE INSECT STING: The patient does not have [...] unspecified 08/05/2008 Irritable bowel syndrome Irritable bowel FCI 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 01/16/2017 Menopause syndrome 01/19/2005 Myalgia and myositis, unspecified Nasal polyposis Polypectomy 03/2017 Dr. Mazariegos [facility]. Pure hypercholesterolemia Serrated adenoma of colon 07/29/2014 [...] 2 Puffs as instructed every 4 hours asneeded for wheezing/shortness of breath. lansoprazole (PREVACID) 30 [...] (FLONASE) 50 mcg/actuation nasal spray Use 1 Meraux in each nostril twice daily. VIA SPACER [...] CEFDINIR 12/21/2019 Itching CODEINE 02/15/2005 Hives VICODIN [HYDROCODONE-ACETAMINOPHE*02/15/2005 Hives DEMEROL [MEPERIDINE (PF)] 01/03/2006 Rash AMBIEN [ZOLPIDEM] 04/07/2022 Intolerance BACTRIM [SULFAMETHOXAZOLE-TRIMETH*07/25/2005 BUDESONIDE 06/26/2018 Rash CELEXA [CITALOPRAM HYDROBROMIDE] 07/25/2005 [...] 2006 Septoplasty SINUS SURGERY PROCEDURE Bilateral 04/02/2017 [facility]. Mazariegos. Sinonasal polypectomy, revision maxillary antrostomy, total ethmoidectomy, sphenoidotomy TOTAL ABDOMINAL HYSTERECT W/WO RMVL TUBE OVARY 1992 Hysterectomy, OPAL BSO XCAPSL CTRC RMVL INSJ IO LENS PROSTH W/O ECP 10/10/2013 Cataract Extraction with PC IOL FAMILY HISTORY: Allergic rhinitis:yes: mom and brother. Asthma: no. Eczema: no. Cystic fibrosis: no. Immunodeficiency: no. SOCIAL HISTORY: Employer And Job Title: No employer specified ([employer]) Years Of Education Completed: Not specified Marital [...] conditioning: Central air Basement: Damp basement Yoav: [id number] carpeting Dust mite controls: Dust mite controls [...] intradermal tests. Patient took a test dose ofamoxicillin 250 mg by mouth and was monitored [...] be considered. I would favor Dupixent for thispatient. She would like to monitor for clinical improvement with regular use of fluticasone nasal spray before deciding whether or not to proceed. Continue to follow-up with otolaryngology. 2.) Moderate persistent asthma: Recommend regular use of Symbicort 160-4.5 2 puffs twice daily. Use with spacer and rinse mouth outafter use. Continue Singulair 10 mg at bedtime [...] sooner should new symptoms or problems arise. Viji Garcia MD documented in this encounterWvumedicine [facility]09-05-2023 Nurse Note* Kate Love RN - 01/08/2023 10:33 AM EDT Patient here for consult for seasonal allergy symptoms and chronic sinusitis. Has nasal congestion and drainage, sneezing and coughing. Takes nan daily, off since Saturday. Had sinus surgery in 2016 [address] Mazariegos in [place], who tested her last year. Uses Symbicort twice daily, and uses Albuterol 1-2 times a week for wheezing and chest tightness. documented in this encounterWvumedicine [facility]08-30-2023 Instructions* Patient Instructions* Nuno Benson APRN.JACKIE - 01/02/2023 9:10 AM EDT Hold your simvastatin for the next 2 weeks. Call with an update before restarting. documented in this encounterWvumedicine [facility]ville Hospital08-30-2023 History of Present illness Narrative* Nuno Benson APRN.CNP - 01/02/2023 8:46 AM EDT WICHO Jeffers is a 62 year old female here today for a check up on her medical problems. Chief Complaint Patient presents with: Medication Follow-up HPI Chey Jeffers is a 62 year old female established patient of Dr. Oconnor. She is here today for a4 week follow up on medication for mood. At last visit we discussed continued anxiety, depression, sub acute care nurse stress. 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 At last visit we startedclonidine and bupropion. She stopped her clonidine and bupropion since last visit. She felt the medications were making her too tired. Not sure which one it was. Still issues with hot flashes. On estradiol. Prior hysterectomy. She has tried Lamictal, mirtazapine, Effexor, Celexa, Lexapro. Still notsleeping great and night sweats effect this. Not [...] 2 Puffs as instructed every 4 hours asneeded for wheezing/shortness of breath. lansoprazole (PREVACID) 30 [...] (FLONASE) 50 mcg/actuation nasal spray Use 1 Meraux in each nostril twice daily. VIA SPACER [...] Claudication - 07/20/2020 Nasal Polyposis - 01/16/2017 [employer] Systemic Steroid User - 01/16/2017 Serrated Adenoma of Colon - 07/29/2014 Osteoporosis - 05/24/2013 Ddd (Degenerative Disc Disease), Lumbosacral - 09/07/2011 Fibromyalgia - 07/27/2009 Esophageal Reflux - 08/05/2008 Sinusitis, Chronic - 06/21/2008 Chronic Rhinitis - 02/27/2006 Pure Hypercholesterolemia Irritable Bowel Syndrome Anxiety and Depression - 06/12/2005 Other Chronic Cystitis - 06/04/2005 Asthma With Chronic Obstructive Pulmonary Disease (Copd) ([facility]) - 05/24/2005 Menopause Syndrome - [...] from today's visit and in agreement with treatmentplan. Questions answered. Agrees to call the office [...] as well as compliance with taking medications. Age- appropriate health preventative measures were discussed. Return in about 4 weeks (around 01/30/2023) for recheck. CRISTIANE Oakes documented in this encounterWvumedicine [facility]07-31-2023 History of Present illness Narrative* Ellen Wang PA-C - 12/03/2022 1:30 PM EDT Images from the original note were not [...] attributes to PND. Using Flonase when I remember. No wheezing. Not limited by her breathing. Reports persistent sinus congestion, post nasal drip and purulent nasal drainage. Sneezes frequently. Follows with [facility]. PAST MEDICAL HISTORY Diagnosis Date Abnormal ultrasound of breast 06/17/2013 Acute gastritis Ankylosing spondylitis (HCC) Anxiety and depression 06/12/2005 Bilateral renal cysts 03/11/2015 Calculus of kidney Dysthymic disorder Depression (non-psychotic) Enterocolitis due to Clostridium difficile 01/12/2015 Esophageal reflux HNP (herniated nucleus pulposus), lumbar 08/22/2011 Intrinsic asthma, unspecified 08/05/2008 Irritable bowel syndrome Irritable bowel FCI 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 01/16/2017 Menopause syndrome 01/19/2005 Myalgia and myositis, unspecified Nasal polyposis Polypectomy 03/2017 Dr. Mazariegos [facility]. Pure hypercholesterolemia Serrated adenoma of colon 07/29/2014 Symptomatic menopausal or female climacteric states Unspecified asthma(493.90) Unspecified sinusitis (chronic) 06/21/2008 Allergies: Aspirin [Salicylate* Swelling, Shortness of Breath Comment:wheezing,swelling lips,rash,hives Cefdinir Itching Comment:Itchy scaly rash. Codeine Hives Vicodin [Hydrocodon* Hives [...] 2 Puffs as instructed every 4 hours asneeded for wheezing/shortness of breath. lansoprazole (PREVACID) 30 [...] (FLONASE) 50 mcg/actuation nasal spray Use 1 Meraux in each nostril twice daily. VIA SPACER [...] 2007 Septoplasty SINUS SURGERY PROCEDURE Bilateral 04/02/2017 [facility]. Mazariegos. Sinonasal polypectomy, revision maxillary [...] EMR. IMMUNIZATIONS Prevnar 13 - xx Pneumovax - [...] normal. No tremor. DATA: Exhaled nitric oxide (Al), 12/03/2022: 49.0 (normal < 20). Test Date [...] minutes prior to activities associated with shortness ofbreath, and as needed for rescue relief of [...] ICD9: 471.9, ICD10: J33.9 Follow up with [place] [facility]. 4. Chronic sinusitis, unspecified location - ICD9: 473.9, ICD10: J32.9 See #3 Portions of this documentation were copied and pasted from previous office visit notes in order to provide a cohesive continuity of the history. The note has been reviewed and edited and updated as necessary. Ellen Wang PA-C documented in this encounterWvumedicine [facility]07-31-2023 Nurse Note* Lisa Judd RN - 12/03/2022 1:22 PM EDT Patient presents with: Asthma States doing well with inhalers, but has been having sinus congestion and drainage that is thick, yellow-greenish drainage. Asking asking another dose of prednisone. No CP or SOB. documented in this encounterWvumedicine Barnesville [facility] Miscellaneous Notes* Telephone Encounter - Wendy Beckman LPN - 11/19/2022 10:07 AM EDT Verified name and date of . Patient [...] advise. Wendy Beckman LPN documented in this encounterWvumed[facility]03-13-2023 Miscellaneous Notes* Telephone Encounter - Ellen Wang PA-C - 07/16/2022 11:42 AM EDT Sent to pharmacy [facility] * Telephone Encounter - Liza Rivera RN - 07/16/2022 11:31 AM EDT Patient calls in regards to prescription for Duoneb for nebulizer. [facility] does not have combo medication. Requesting prescription for ipratropium and one for the albuterol instead. documented in this encounterWvumedicine [facility]ville [facility]03-13-2023 Miscellaneous Notes* Telephone Encounter - Krystal Torres LPN - 07/16/2022 9:11 AM EDT Patient called requesting the following refill Refill(s) [...] Mirtazapine Other: See Comments Hand shakes. (home) [phone] (cell) Last Office Visit Date: 06/04/2022 Last [facility] Visit: Visit date not found Future Appointment: 12/03/2022 The patients preferred pharmacy has been captured for this encounter? yes Request is for script(s) to be escript to pharmacy. Krystal Torres LPN documented in this encounterWvumedicine [facility]03-13-2023 Miscellaneous Notes* Telephone Encounter - Krystal Torres LPN - 07/16/2022 9:09 AM EDT Opened in error documented in this encounterWvumedicine [facility]03-08-2023 Miscellaneous Notes* Telephone Encounter - Vivi Acosta LPN - 07/11/2022 9:08 AM EST Spoke with pharmacy and it is on file and can be filled at patient's convenience. Patient aware of same. * Telephone Encounter - Winnie White - 07/11/2022 8:31 AM EST Patient calling today and states that her pharmacy, [facility] has not yet received the prescriptionfor clonazePAM (KLONOPIN) 0.5 mg tablet. Patient asking for a return call once it is called into pharmacy. * Telephone Encounter - Edda Oconnor MD - 07/06/2022 6:42 PM EST The following approved medication requests have been transmitted electronically. Requested Prescriptions Signed Prescriptions Disp Refills clonazePAM (KLONOPIN) 0.5 mg tablet 60 tablet 5 Sig: Take 1 tablet by mouth twice daily for 180 days. Do not start before July 08, 2022. Authorizing Provider: EDDA OCONNOR MD * Telephone Encounter - Jahaira Nelson LPN - 07/06/2022 3:30 PM EST Patient has been identified by name and [...] Please advise. Thank you. Jahaira Nelson LPN * Telephone Encounter - Martine Joaquin Pss - 07/06/2022 8:59 AM EST Patient has been identified by name and date of : Yes Requested Prescriptions Pending Prescriptions Disp Refills clonazePAM (KLONOPIN) 0.5 mg tablet 60 tablet 5 Sig: Take 1 tablet by mouth twice daily for 180 days. RX INSTRUCTIONS: Patient aware RX will be sent to pharmacy. No need to notify patient. Martine Nuñez Pss documented in this encounterWvumedicine [facility]ville Hospital02-17-2023 History of Present illness Narrative* Edda Oconnor MD - 06/22/2022 3:53 PM EST This note was created using Skyword. 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 Mazariegos [facility]. Pure hypercholesterolemia Serrated adenoma of colon 07/29/2014 [...] 2 Puffs as instructed every 4 hours asneeded for wheezing/shortness of breath. simvastatin (ZOCOR) 40 mg tablet Take 1 tablet by mouth daily at bedtime. ipratropium-albuterol (DUONEB) 0.5 mg-3 mg(2.5 mg base)/3 mL nebu Inhale 3 mL as instructed every 4hours as needed. calcium carb/vit D2/minerals (CALTRATE PLUS ORAL) Take 1 capsule by mouth once daily. fluticasone (FLONASE) 50 mcg/actuation nasal spray Use 1 Meraux in each nostril twice daily. VIA SPACER [...] the date of the service which included ardm-js-myfw patient care, completing clinical documentation, performing a medically appropriate examination, counseling and educating the patient/family/caregiver, and ordering medications, tests, or procedures. Edda Oconnor MD documented in this encounterWvumedicine [facility]ville [facility]01-30-2023 History of Present illness Narrative* Mary Lou Nicholson MD - 06/04/2022 10:00 AM EST Images from the original note were not included. . [facility] Note Patient name: Chey Jeffers PCP: Edda Oconnor MD CC: follow-up asthma HPI: Chey Jeffers 61 year old female non-smoker with PMH significant for ankylosing spondylitis, depression, GERD, nasal polyposis, chronic sinusitis, and asthma, former patient of Dr. Goddard [facility]. Current therapy consists of Symbicort and as needed albuterol. Intolerant of dry powder inhalers. Not using Symbicort twice daily as prescribed, claiming she forgets. She becomes distracted due to care of her disabled brother. Asthma is triggered mainly by her persistent sinus congestion andpostnasal drip, exposure to certain odors and fumes, and cold air. Having persistent upper chest congestion, occasional wheezing, no significant dyspnea on exertion, sputum production. Cough mainly re lated to her postnasal drip, throat clearing. She [...] unspecified 08/05/2008 Irritable bowel syndrome 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 Mazariegos [facility]. Pure hypercholesterolemia Serrated adenoma of colon 07/29/2014 [...] 2 Puffs as instructed every 4 hours asneeded for wheezing/shortness of breath. simvastatin (ZOCOR) 40 mg tablet Take 1 tablet by mouth daily at bedtime. ipratropium-albuterol (DUONEB) 0.5 mg-3 mg(2.5 mg base)/3 mL nebu Inhale 3 mL as instructed every 4hours as needed. calcium carb/vit D2/minerals (CALTRATE PLUS ORAL) Take 1 capsule by mouth once daily. fluticasone (FLONASE) 50 mcg/actuation nasal spray Use 1 Meraux in each nostril twice daily. VIA SPACER [...] 2007 Septoplasty SINUS SURGERY PROCEDURE Bilateral 04/02/2017 [facility] [address]. Mazariegos. Sinonasal polypectomy, revision maxillary [...] with ENT Mary Lou Nicholson MD [facility] documented in this encounterWvumedicine [facility]01-30-2023 Procedure note* LA Goddard - 06/04/2022 9:45 AM ESTAssociated Order(s): NITRIC OXIDE, EXHALED RESPIRATORY THERAPY ORAL [...] 2022 TIME: 9:45 AM documented in this encounterWvumedicine [facility]01-30-2023 History of Present illness Narrative* LA Goddard - 06/04/2022 9:26 AM EST PULM FUNCTION SMARTBLOCK: Provider: Ellen Wang PA-C Assisting Tech: LA Goddard Spirometry: 1 Exhaled Nitric Oxide: 1 documented in this encounterWvumedicine [facility] Hospital01-03-2023 History of Present illness Narrative* Beth Grider RT(R) - 05/08/2022 12:30 PM EST Radiology Service Progress Note PATIENT NAME: Chey Jeffers DATE OF SERVICE: May 08, 2022 TIME: 12:36 PM PATIENT IDENTITY VERIFICATION COMPLETED USING TWO (2) IDENTIFIERS: Name and Date of confirmedby patient verbally. FALL SCREENING: Has the patient [...] 08, 2022 12:36 PM documented in this encounterWvumedicine [facility] Hospital12-29-2022 NoteHNO ID: [id number] Author: Elia Jacob APRN.GEOSCIENCE LABORATORY TECHNICIAN Service: ? Author Type: Nurse Practitioner Type: Progress Notes Filed: 05/03/2022 10:27 AM Note Text: [facility] Today's Date: 05/03/2022 Last Visit: 03/01/22 [...] allergy to Ibuprofen Opioids: Tramadol, Vicodin or [place] (Hydrocodone), Percocet (Oxycodone), and Duragesic (Fentanyl Patch) [...] activity was identified. 05/03/2022 by Elia Jacob APRN.GEOSCIENCE LABORATORY TECHNICIAN Allergies: ALLERGIES Allergen Reactions Aspirin [Salicylate* Swelling, [...] DATE OF EXAM: Mar 23 2022 8:25AM WR 0303 - MRI LUMBAR SPINE WO IVCON / PROCEDURE REASON: multiple diagnoses * * * * Physician Interpretation * * * * EXAMINATION: MRI LUMBAR SPINE WO IVCON CLINICAL HISTORY: Lumbar radiculopathy TECHNIQUE: Routine lumbosacral spine MR protocol without gadolinium. MQ: [id number] (more content not included)...[facility]12-29-2022 NoteHNO ID: [id number] Author: Lissette Morley MA Service: ? Author Type: Assistant Boiler Operator Type: Progress Notes Filed: 05/03/2022 10:27 AM [...] Negative for suicidal ideas. The patient is nervous/anxious.[facility]12-29-2022 Instructions* Patient Instructions* Elia Jacob APRN.CNP - 05/03/2022 10:27 AM EST Activity as tolerated Use Ice and/or heat as tolerated as needed documented in this encounterWvumedicine Barnesville Hospital12-29-2022 History of Present illness Narrative* Elia Jacob APRN.JACKIE - 05/03/2022 10:05 AM EST Images from the original note were not included. [facility] Today's Date: 05/03/2022 Last Visit: 03/01/22 w/Dr. Solano Name: Chey Jeffers : 1960 Chief complaint: Low Back Pain History of Present Illness: Since last encounter, Chey Brooks Yary; reports that the chronic problem(s) detailed above [...] or bladder control, unintentional weight loss, and fevers,chills, or night sweats. Recall: Patient of Dr. [...] allergy to Ibuprofen Opioids: Tramadol, Vicodin or [place] (Hydrocodone), Percocet (Oxycodone), and Duragesic (Fentanyl Patch) [...] All prescriptions have been APPROPRIATELY filled. No suspiciousactivity was identified. 05/03/2022 by Elia Jacob APRN.GEOSCIENCE LABORATORY TECHNICIAN Allergies: ALLERGIES Allergen Reactions Aspirin [Salicylate* Swelling, [...] DATE OF EXAM: Mar 23 2022 8:25AM WR 0303 - MRI LUMBAR SPINE WO IVCON [...] noted in the bilateral kidneys on the paper coating machine operator images which are incompletely evaluated, presumably cysts. Additional T2 hyperintense lesions in the pancreas are noted, incompletely evaluated on the paper coating machine operator images, presumably cysts, seen on remote MRI [...] and assume there are 5 lumbar-type vertebrae. Agricultural Chemicals Inspector: PSCB Transcribe Date/Time: Mar 23 2022 9:30A [...] presents with complaint(s) of chronic low back pain.Reports her pain is primarily axial in nature, rarely has radicular pain. Reviewed her most recent lumbar MRI and demonstrates mild multilevel disc bulges, facet hypertrophyand degenerative changes throughout, most prominent at L3/4, [...] ordered in this encounter No changes Functional Episcopal: Offered water therapy or PT she declined [...] decision making from today's date. Elia Jacob APRN.GEOSCIENCE LABORATORY TECHNICIAN Pain [facility] * Lissette Morley MA - 05/03/2022 9:43 AM EST Review of Systems Constitutional: Negative for activity [...] The patient is nervous/anxious. documented in this encounterWvumedicine [facility]12-15-2022 History of Present illness Narrative* Maria Teresa Edwards APRN.WOVEN LABEL DESIGNER - 04/19/2022 8:42 AM EST SUBJECTIVE: There are no preventive care reminders [...] Adenoma of Colon Nasal Polyposis Menopause Syndrome Elevator Runner Systemic Steroid User Cervical Spondylosis Without Myelopathy Lumbosacral Spondylosis Without Myelopathy Spinal Stenosis, Lumbar Region, Without Neurogenic Claudication Presents today for perineal itching. Prior history of vaginitis treated with nizoral and topical steroid per technical sales director. Today reports having symptoms since February. She was seen by Dr. Monzon ear nose and throat doctorand was treated with antibiotics in February and March for sinusitis. Symptoms developed after taking the antibiotic. Notes she has tried zayr-aqe-jmhpibu treatments-Monistat. Did not seem to help. SEPTIC TANK SERVICE TECHNICIAN: No current, status post hysterectomy Dermatology: No [...] 2 Puffs as instructed every 4 hours asneeded for wheezing/shortness of breath. simvastatin (ZOCOR) 40 mg tablet Take 1 tablet by mouth daily at bedtime. sucralfate (CARAFATE) 1 gram tablet Take 1 tablet by mouth before meals and at bedtime. ipratropium-albuterol (DUONEB) 0.5 mg-3 mg(2.5 mg base)/3 mL nebu Inhale 3 mL as instructed every 4hours as needed. calcium carb/vit D2/minerals (CALTRATE PLUS ORAL) Take 1 capsule by mouth once daily. fluticasone (FLONASE) 50 mcg/actuation nasal spray Use 1 Meraux in each nostril twice daily. VIA SPACER [...] unspecified 08/05/2008 Irritable bowel syndrome Irritable bowel FCI 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 01/16/2017 Menopause syndrome 01/19/2005 Myalgia and myositis, unspecified Nasal polyposis Polypectomy 03/2017 Dr. Mazareigos [facility]. Pure hypercholesterolemia Serrated adenoma of colon 07/29/2014 [...] Level: 3 - Low documented in this encounterWvumedicine [facility]ville Hospital12-14-2022 Miscellaneous Notes* Telephone Encounter - Nuno Benson APRN.CNP - 04/18/2022 11:30 AM EST Please schedule her on BALJEET Hassan schedule for 8:40 tomorrow morning and let her know once scheduled. Thanks!! documented in this encounterWvumedicine [facility]ville Hospital12-12-2022 Miscellaneous Notes* Addendum Note - Vivi Acosta LPN - 04/16/2022 1:08 PM ESTAddended by: VIVI ACOSTA LPN on: 04/16/2022 01:08 PM Modules accepted: Orders * Telephone Encounter - Vivi Acosta LPN - 04/16/2022 1:08 PM EST PATIENT NOTIFIED OF SAME. * Telephone Encounter - Nuno Benson APRN.CNP - 04/16/2022 12:49 PM EST Order placed * Telephone Encounter - Nuno Benson APRN.JACKIE - 04/16/2022 11:57 AM EST I recommend she do a urine dip and then we can treat based off of that. * Telephone Encounter - Kassandra Paulson RN - 04/16/2022 8:41 AM EST Patient call in for urinary frequency since February. Patient had appointment on 04/07/2022, and didnot mention this because she as already on antibiotic and patient thought it would throw off testing. Nurse Triage assessment completed with protocol recommending for disposition of see PCP in 24 hours. Care advice reviewed with patient, patient stated understanding. Patient asking if provider wants to order a urine test? Does provider need to see patient again forthis? Reason for Disposition Urinating more frequently than usual (i.e., frequency) Answer Assessment - Initial Assessment Questions 1. SYMPTOM: Urinary Frequency 2. ONSET: This has been going on Since February 3. PAIN: Denies Pain 4. CAUSE: What do you think is causing the symptoms? Urinary Tract Infection 5. OTHER SYMPTOMS: Nausea, sometimes burning with urination Protocols used: Urinary [id number]-SGWCV-DU documented in this encounterWvumedicine Barnesville Hospital11-23-2022 Miscellaneous Notes* Telephone Encounter - Edda Oconnor MD - 03/28/2022 12:02 PM EST Needs med for yeast infection since on antibiotic from Dr. Mazariegos. documented in this encounterWvumedicine [facility]ville Hospital11-18-2022 History of Present illness Narrative* Daja Murillo, RT(R) - 03/23/2022 8:00 AM EST Radiology Service Progress Note PATIENT NAME: Chey Jeffers DATE OF SERVICE: March 23, 2022 TIME: 8:03 AM PATIENT IDENTITY VERIFICATION COMPLETED USING TWO (2) IDENTIFIERS: Name and Date of confirmedby patient verbally. FALL SCREENING: Has the patient [...] 23, 2022 8:03 AM documented in this encounterWvumedicine [facility] Hospital10-27-2022 NoteHNO ID: [id number] Author: Lissette Morley MA Service: ? Author Type: Assistant Boiler Operator Type: Progress Notes Filed: 03/01/2022 1:12 PM [...] Negative for suicidal ideas. The patient is nervous/anxious.[facility]10-27-2022 History of Present illness Narrative* Lissette Morley MA - 03/01/2022 12:57 PM EDT Review of Systems Constitutional: Negative for activity [...] for suicidal ideas. The patient is nervous/anxious. * Ermias Solano MD - 03/01/2022 9:57 AM EDT Images from the original note were not included. [facility] Today's Date: 03/01/2022 Last Visit: 12/14/2021 Name: Chey Jeffers : 1960 Purpose: Follow-up Evaluation Chief complaint: low back pain, diffuse body aches and pains Interval History: Chey Jeffers returns today for a follow-up encounter, reporting that since lastencounter, the overall pain and functional disability arising [...] tests were obtained, with relevant findings reported below:none She continues to have axial low back pain, occasional radicular pain in the left lower limb. She tried Baclofen, made her very dizzy. Notable Events During Course of Treatment: 12/14/2021 - Initial Consult, referred by Yessica Hciks CNP, for low back pain, diffuse body aches and pains This has been present for the past many years. The onset of symptoms was not sudden and was withoutassociated trauma. She has had axial low back pain for many years, constant, aching. Over the past two months, she has had sharp pain radiating into the posterior left thigh, calf and dorsum of the foot. This is new for her. She has had similar symptoms in the right lower limb in thepast, but not presently. Pain is worse with squatting and bending. Treatments prior to initial presentation include the following: Medications (See below), Injections(See below), Modalities (eg. Heat, Ice), Chiropractic Full Treatment , Massage, Home Exercise Program , and Activity Modification. She continues to see a Chiropractor regularly. She last had PT in 10/2020. She has been seen previously by Dr. Walls (2011) and Dr. Corrigan (2020) for pain management, both inAnesthesia Pain. Dr. Corrigan recommended trigger point injections, [...] what else to do to wean myself off, she is currently cutting the patch in [...] or bladder control, unintentional weight loss, and fevers,chills, or night sweats. Medications: CURRENT Pain Medications: Opioid Pain Medications: None Date last filled: N/A Quantity filled: N/A How many left: N/A Time most recent dose taken: N/A Non-Opioid Pain Medications: None Uwkr-sdh-asskvno (OTC) Pain Meds: None Compliance: PDMP website checked and validated. All prescriptions have been APPROPRIATELY filled. No suspiciousactivity was identified. by Ermias Solano MD 03/01/2022 [...] Abuse: 0 - No Psychological Disease: Yes ADD/ADHD/OCD/Bipolar/Schizophrenia: No Depression: 1 - Yes Risk Total: [...] allergy to Ibuprofen Opioids: Tramadol, Vicodin or [place] (Hydrocodone), Percocet (Oxycodone), and Duragesic (Fentanyl Patch) [...] she has not already tried, having had i ntolerance or allergic reactions to the majority of [...] was advised that they will need a team truck driver for after the procedure and that if no team truck driver is available and on site at the time of the procedure, the procedure will be cancelled. For any anticoagulants, the patient was advised on whether to continue or hold for this procedure. The patient expressed understanding and gave verbal consent to proceed. 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 Ermias Solano MD, MBA [facility] documented in this encounterWvumedicine Barnesville Hospital10-27-2022 NoteHNO ID: [id number] Author: Ermias Solano MD Service: ? Author Type: Physician Type: Progress Notes Filed: 03/01/2022 1:12 PM Note Text: [facility] Today's Date: 03/01/2022 Last Visit: 12/14/2021 Name: [...] She has been seen previously by Dr. Walls (2011) and Dr. Corrigan (2020) for pain [...] what else to do to wean myself off, she is currently cutting the patch in [...] dose taken: N/A Non-Opioid Pain Medications: None Xuli-bwr-snmhwjj (OTC) Pain Meds: None Compliance: PDMP website [...] anxiety, (5-9) mild anxie (more content not included)...[facility]10-06-2022 Hospital Discharge instructionsAmbulatory Orders* 12 Lead EKG [[facility]] Time Frame: 02/08/22, Location: None Selected Additional Instructions [facility] Work Phone: [phone]) [phone] Miscellaneous Notes* Telephone Encounter - Jeni Jackson LPN - 01/10/2022 1:44 PM EDT Images from the original note were not included. Electronic PA completed for morphine SR. Prior authorization approved Payer: [employer] [phone] CaseId:[id number];Status:Approved;Review Type:Prior Auth;Coverage Start Date:12/27/2021;Coverage End Date:01/10/2023; Approval Details Authorized from December 27, 2021 to January 10, 2023 documented in this encounterWvumedicine Barnesville Hospital09-07-2022 History of Present illness Narrative* Lew Verduzco MD - 01/10/2022 9:49 AM EDT This note was created using Content360[employer]. Subjective Chey Jeffers is a 61 year old female. She was supposed to switch to Morphine from Fentanyl patch per recommendations from pain management. [facility] somehow did not get the prescription. 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 simvastatin (ZOCOR) 40 [...] nebu Inhale 3 mL as instructed every 4hours as needed. calcium carb/vit D2/minerals (CALTRATE PLUS ORAL) Take 1 capsule by mouth once daily. fluticasone (FLONASE) 50 mcg/actuation nasal spray Use 1 Meraux in each nostril twice daily. VIA SPACER [...] was notably tender multiple areas of her upperand lower back. Consider PT if not better. She's also seeing a chiropractor. - BACLOFEN 20 MG TABLET. Discussed medication dosage, usage, goals of therapy, and side effects. 2. DDD (degenerative disc disease), lumbosacral - ICD9: 722.52, ICD10: M51.37 - MORPHINE ER 15 MG TABLET,EXTENDED RELEASE. Discontinue FENTANYL when Morphine started for last 14days of opioids. Follow up with pain management. Prescription was resent in her presence. Waiting for Payer Response noted. 3. Fibromyalgia - ICD9: 729.1, ICD10: M79.7 See above. - MORPHINE ER 15 MG TABLET,EXTENDED RELEASE Lew Verduzco MD documented in this encounterWvumedicine [facility]ville Hospital09-02-2022 Miscellaneous Notes* Telephone Encounter - Jeni Ulrichyulissa MARTINEZ - 01/05/2022 11:43 AM EDT Last seen ELECTRIC SPOT WELDER 11/10/21. Nex appt is 01/10/22. * Telephone Encounter - Martine Nuñez Pss - 01/05/2022 8:45 AM EDT Patient has been identified by name and date of : Yes Requested Prescriptions Pending Prescriptions Disp Refills clonazePAM (KLONOPIN) 0.5 mg tablet 60 tablet 5 Sig: Take 1 tablet by mouth twice daily for 180 days. RX INSTRUCTIONS: Patient aware RX will be sent to pharmacy. No need to notify patient. Martine Nuñez Pss documented in this encounterWvumedicine Barnesville Hospital08-11-2022 NoteHNO ID: [id number] Author: Michelle Gonzalez MA Service: ? Author Type: Assistant Boiler Operator Type: Progress Notes Filed: 12/14/2021 12:22 PM [...] Negative for suicidal ideas. The patient is nervous/anxious.[facility]08-11-2022 NoteHNO ID: [id number] Author: Ermias Solano MD Service: ? Author Type: Physician Type: Progress Notes Filed: 12/14/2021 12:22 PM Note Text: [facility] Today's Date: 12/14/2021 Last Visit: N/A Name: [...] She has been seen previously by Dr. Walls (2011) and Dr. Corrigan (2020) for pain [...] what else to do to wean myself off, she is currently cutting the patch in [...] jose g menendez helps currently Pain Assessment (RN/MAKEUP ARTISTRY INSTRUCTOR) - - Medications: CURRENT Pain Medications: Opioid Pain Medications: Fentanyl 12mcg/hr Date last filled: 10/15/2021 Quantity filled: 10 How many left: 4 Time most recent dose taken: N/A Non-Opioid Pain Medications: None Xcto-sej-gfacwbt (OTC) Pain Meds: None Compliance: PDMP website [...] Abuse: 0 - No Psychological Disease: Yes ADD/ADHD/OCD/Bipolar/Schizophrenia: No Depression: 1 - Yes Risk Total: 1 (0-3, low risk or no risk; 4-7, moderate risk, 8+, high risk) Safety Checklist: Are you taking proper precautions to safe guard your medication? Yes Taking the medications as prescribed? Yes Getting pain medications from another physician? No Obtaining pain medication from another source? No Sharing medications with friends/family? No Qualit (more content not included)...[facility]08-11-2022 History of Present illness Narrative* Michelle Gonzalez MA - 12/14/2021 10:56 AM EDT Review of Systems Constitutional: Positive for chills. [...] for suicidal ideas. The patient is nervous/anxious. * Ermias Solano MD - 12/14/2021 9:56 AM EDT Images from the original note were not included. [facility] Today's Date: 12/14/2021 Last Visit: N/A Name: [...] of symptoms was not sudden and was withoutassociated trauma. She has had axial low back pain for many years, constant, aching. Over the past two months, she has had sharp pain radiating into the posterior left thigh, calf and dorsum of the foot. This is new for her. She has had similar symptoms in the right lower limb in thepast, but not presently. Pain is worse with squatting and bending. Treatments prior to initial presentation include the following: Medications (See below), Injections(See below), Modalities (eg. Heat, Ice), Chiropractic Full Treatment , Massage, Home Exercise Program , and Activity Modification. She continues to see a Chiropractor regularly. She last had PT in 10/2020. She has been seen previously by Dr. Walls (2011) and Dr. Corrigan (2020) for pain management, both inAnesthesia Pain. Dr. Corrigan recommended trigger point injections, [...] what else to do to wean myself off, she is currently cutting the patch in [...] or bladder control, unintentional weight loss, and fevers,chills, or night sweats. Current Status: INTAKE PAIN [...] jose g menendez helps currently Pain Assessment (RN/MAKEUP ARTISTRY INSTRUCTOR) - - Medications: CURRENT Pain Medications: Opioid Pain Medications: Fentanyl 12mcg/hr Date last filled: 10/15/2021 Quantity filled: 10 How many left: 4 Time most recent dose taken: N/A Non-Opioid Pain Medications: None [id number] (OTC) Pain Meds: None Compliance: PDMP website checked and validated. All prescriptions have been APPROPRIATELY filled. No suspiciousactivity was identified. by Ermias Solano MD 12/14/2021 [...] Abuse: 0 - No Psychological Disease: Yes ADD/ADHD/OCD/Bipolar/Schizophrenia: No Depression: 1 - Yes Risk Total: [...] allergy to Ibuprofen Opioids: Tramadol, Vicodin or [place] (Hydrocodone), Percocet (Oxycodone), and Duragesic (Fentanyl Patch) [...] have confirmed and edited as necessary, the PFS and ROS obtained by others. Physical Exam: [...] was advised that they will need a team truck driver for after the procedure and that if no team truck driver is available and on site at the time of the procedure, the procedure will be cancelled. For any anticoagulants, the patient was advised on whether to continue or hold for this procedure. The patient expressed understanding and gave verbal consent to proceed. Medication(s): I will send a message to his PCP about weaning the Fentanyl. Given she is only usinghalf a patch per day, which should be [...] offered her relief. 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 Thank you. Veena Herr LPN * Telephone Encounter - Martine Kendall - 11/30/2021 12:49 PM EDT Patient has been identified by name and date of : Yes Pending Prescriptions Disp Refills LANSOPRAZOLE 30 MG CAPSULE,DELAYED RELEASE 90 capsule 3 Sig: Take 1 capsule by mouth once daily. OLIVER: No RX INSTRUCTIONS: Patient aware RX will be sent to pharmacy. No need to notify patient. Martine Kendall documented in this encounterWvumedicine [facility]ville [facility]07-21-2022 History of Present illness Narrative* Ellen Wang PA-C - 11/23/2021 9:00 AM EDT [facility] [place], 11/23/2021: Name: Chey Jeffers : 1960 The [...] drip and sinus headaches. Has appointment with [facility], tomorrow. No disruption in taste or [...] 0.65 0.56 0.83 0.81 Exhaled nitric oxide (Al), 08/17/2021: 109 (normal < 20). 12/21/2019: 216 04/17/2018: 150 ASSESSMENT/PLAN: 1. Asthma, moderate persistent, well-controlled - ICD9: 493.90, ICD10: J45.40 (primary diagnosis) Current symptoms consistent with sinusitis. See #2 and 3. Continue Symbicort 2 inhalations twice daily. Rinse mouth after each use to help prevent oral thrush. Albuterol HFA inhaler, 2 inhalations 10 15 minutes prior to activities associated with shortness ofbreath, and as needed for rescue relief of shortness of breath or wheezing, up to 4 times daily. 2. Allergic rhinitis, unspecified seasonality, unspecified trigger - ICD9: 477.9, ICD10: J30.9 Has appointment with [facility] tomorrow. Continue Atrovent and Flonase nasal [...] understanding and acceptance of my answers. Ellen Wang PA-C documented in this encounterWvumedicine Barnesville Hospital07-08-2022 Instructions* Patient Instructions* Yessica Hicks APRN.CNP - 11/10/2021 10:57 AM EDT Stop dicyclomine and resume taking imipramine for anxiety/depression documented in this encounterWvumedicine Barnesville Hospital07-08-2022 History of Present illness Narrative* Yessica Hicks APRN.CNP - 11/10/2021 10:45 AM EDT CC: Patient presents with: F/U 1 month [...] did stop once she discontinued however started backup again recently. She has been on a few other antidepressants in the past that were stopped due toside effects. Denies SI or HI. 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 Mazariegos [facility]. Pure hypercholesterolemia Serrated adenoma of colon 07/29/2014 [...] [place] LAPS COLECTOMY PRTL W/RMVL TERMINAL ILEUM 3-13-15 PAST SURGICAL HISTORY OF 2013 left breast biopsy- benign SEPTOPLASTY/SUBMUCOUS RESECJ W/WO CARTILAGE GRF 2007 Septoplasty SINUS SURGERY PROCEDURE Bilateral 04/02/[address] [facility]. Mazariegos. Sinonasal polypectomy, revision maxillary antrostomy, total ethmoidectomy, sphenoidotomy TOTAL ABDOMINAL HYSTERECT W/WO RMVL TUBE OVARY 1993 Hysterectomy, OPAL BSO XCAPSL CTRC RMVL INSJ IO LENS PROSTH W/O ECP 10/10/2013 Cataract Extraction with PC IOL ALLERGIES Aspirin [Salicylates], Cefdinir, Codeine, Vicodin [Hydrocodone- Acetaminophen], Demerol [Meperidine (Pf)], Bactrim [Sulfamethoxazole- Trimethoprim], Budesonide, Celexa [Citalopram Hydrobromide], Doxy [Doxycycline], Durezol [Difluprednate], Environmental Allergies [Other], Ibuprofen, Lexapro [Escitalopram Oxalate], Lyrica [Pregabalin], Macrobid [Nitrofurantoin Monohyd/M- Cryst], Maprotiline, Monurol [Fosfomycin], Mucomyst [Acetylcysteine], Oxycodone, Penicillins, Prednisone, Toradol [Ketorolac Tromethamine], Tylenol [Acetaminophen], Ultram [Tramadol Hcl], Vancomycin, Venlafaxine, Zithromax [Azithromycin], and Mirtazapine MEDICATIONS dicyclomine (BENTYL) 10 mg capsule Take 1 capsule by mouth three times daily. budesonide-formoterol (SYMBICORT) 160-4.5 mcg/actuation inhaler Inhale 2 Puffs as instructed twice daily. albuterol HFA (VENTOLIN HFA) 90 mcg/actuation inhaler Inhale 2 Puffs as instructed every 4 hours asneeded for wheezing/shortness of breath. simvastatin (ZOCOR) 40 [...] nebu Inhale 3 mL as instructed every 4hours as needed. calcium carb/vit D2/minerals (CALTRATE PLUS ORAL) Take 1 capsule by mouth once daily. fluticasone (FLONASE) 50 mcg/actuation nasal spray Use 1 Meraux in each nostril twice daily. VIA SPACER [...] plan. Yessica Hicks APRN.CNP documented in this encounterWvumedicine Barnesville Hospital07-05-2022 Miscellaneous Notes* Telephone Encounter - Veena Herr LPN - 11/07/2021 9:48 AM EDT Patient has been identified by name and [...] you. Veena Herr LPN documented in this encounterWvumedicine Barnesville Hospital06-28-2022 Miscellaneous Notes* Telephone Encounter - Liza Rivera RN - 10/31/2021 8:25 AM EDT Patient calling requesting ref[facility] [place]. Patient specified that she does not want generic sent in, she wants Symbicort due to insurance purposes. documented in this encounterWvumedicine Barnesville Hospital06-27-2022 Miscellaneous Notes* Telephone Encounter - Ellen Kendall - 10/30/2021 8:43 AM EDT Pharmacy verified in [facility] Patient has been identified by name [...] advise. Ellen Andrea Pss documented in this encounterWvumedicine Barnesville Hospital06-27-2022 Miscellaneous Notes* Telephone Encounter - Liza Rivera RN - 10/30/2021 8:38 AM EDT Patient phones requesting refills as follows: Pending Prescriptions Disp Refills ALBUTEROL SULFATE HFA 90 MCG/ACTUATION AEROSOL INHALER 18 g 5 Sig: Inhale 2 Puffs as instructed every 4 hours as needed for wheezing/shortness of breath. OLIVER: No Please review and advise. Liza Rivera RN documented in this encounterWvumedicine Barnesville Hospital06-10-2022 Miscellaneous Notes* Telephone Encounter - Kaylah Franz Ma - 10/13/2021 1:29 PM EDT patient notified of rx * Telephone Encounter - Jennifer Vivas RN - 10/13/2021 9:09 AM EDT Patient has been identified by name and [...] 04/28/2019 20 Please advise. Thank you. Jennifer Vivas RN documented in this encounterWvumedicine Barnesville Hospital06-07-2022 Miscellaneous Notes* Telephone Encounter - Yolanda Caraballo - 10/10/2021 1:08 PM EDT Left brief message on cell voicemail stating to call the office to schedule New patient appointmentwith Dr. Solano or Elia Jacob in [place]. Yolanda Caraballo documented in this encounterWvumedicine Barnesville Hospital06-07-2022 History of Present illness Narrative* Yessica Hicks, CORE MAKER HELPER.GEOSCIENCE LABORATORY TECHNICIAN - 10/10/2021 8:53 AM EDT CC: Patient presents with: F/U 3 Month HPI Cheysobeida Jeffers is a 60 year old female [...] but still having bouts of cramping and diarrheawhen she gets overwhelmed and worked up which [...] unspecified 08/05/2008 Irritable bowel syndrome Irritable bowel FCI 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 01/16/2017 Menopause syndrome 01/19/2005 Myalgia and myositis, unspecified Nasal polyposis Polypectomy 03/2017 Dr. Mazariegos [facility]. Pure hypercholesterolemia Serrated adenoma of colon 07/29/2014 [...] 2006 Septoplasty SINUS SURGERY PROCEDURE Bilateral 04/02/2017 [facility] Dr. Mazariegos. Sinonasal polypectomy, revision maxillary antrostomy, total ethmoidectomy, sphenoidotomy TOTAL ABDOMINAL HYSTERECT W/WO RMVL TUBE OVARY 1993 Hysterectomy, OAPL BSO XCAPSL CTRC RMVL INSJ IO LENS PROSTH W/O ECP 10/10/2013 Cataract Extraction with PC IOL ALLERGIES Aspirin [Salicylates], Cefdinir, Codeine, Vicodin [Hydrocodone- Acetaminophen], Demerol [Meperidine (Pf)], Bactrim [Sulfamethoxazole- Trimethoprim], Budesonide, Celexa [Citalopram Hydrobromide], Doxy [Doxycycline], Durezol [Difluprednate], Environmental Allergies [Other], Ibuprofen, Lexapro [Escitalopram Oxalate], Lyrica [Pregabalin], Macrobid [Nitrofurantoin Monohyd/M- Cryst], Maprotiline, Monurol [Fosfomycin], Mucomyst [Acetylcysteine], Oxycodone, Penicillins, [...] 2 Puffs as instructed every 4 hours asneeded for Wheezing/Shortness of Breath. ipratropium-albuterol (DUONEB) 0.5 mg-3 mg(2.5 mg base)/3 mL nebu Inhale 3 mL as instructed every 4hours as needed. calcium carb/vit D2/minerals (CALTRATE PLUS ORAL) Take 1 capsule by mouth once daily. fluticasone (FLONASE) 50 mcg/actuation nasal spray Use 1 Meraux in each nostril twice daily. VIA SPACER [...] has been cutting patches to wean herself off.Advised patient she should never cut or alter patches in any way and to go back to 1 patch every 72hours. Prior authorization dept will check into lopez increase on Fentanyl patches. - CONSULT TO PAIN MGT with [facility] - FENTANYL 12 MCG/HR TRANSDERMAL PATCH - FENTANYL 12 MCG/HR TRANSDERMAL PATCH - FENTANYL 12 MCG/HR TRANSDERMAL PATCH PDMP website checked and validated. All prescriptions have been APPROPRIATELY filled. No suspiciousactivity was identified. 10/10/2021 by Yessica Hicks APRN.JACKIE 2. Fibromyalgia - ICD9: 729.1, ICD10: M79.7 [...] agreeable to treatment plan. documented in this encounterWvumedicine Barnesville Hospital05-25-2022 Miscellaneous Notes* Telephone Encounter - Ivonne Jett LPN - 09/27/2021 10:11 AM EDT Patient currently using Symbicort. Her insurance prefers brand rather than generic. Ivonne Jett LPN * Telephone Encounter - Wendy Beckman LPN - 09/27/2021 9:24 AM EDT Lisa from [employer] called regarding Budesonide and asking if patient can try Symbicort instead?Please review and advise. Wendy Beckman LPN documented in this encounterWvumedicine Barnesville Hospital05-20-2022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 depression Dysthymic disorder [facility]* Diagnosis Wound of left lower extremity, subsequent encounter- Primary Swelling of left lower extremity Swelling of limb Pain in left ankle and joints of left foot Encounter for removal of sutures [facility]* Diagnosis Wound of left lower extremity, subsequent encounter Swelling of left lower extremity Swelling of limb [facility] Diagnosis Intra-abdominal and pelvic swelling, mass and lump, unspecified site- Primary Other specified disorders of kidney and ureter Pancreatic cyst (HCC) Cyst and pseudocyst of pancreas Renal cyst Unspecified congenital cystic kidney disease Wound of left lower extremity, subsequent encounter Swelling of left lower extremity Swelling of limb Pain in left ankle and joints of left foot Encounter for removal of sutures [facility] Diagnosis Foot pain, left- Primary Pain in limb Injury of left lower extremity, subsequent encounter [facility]* Diagnosis Severe persistent asthma without complication (HCC) [facility] Diagnosis Severe persistent asthma without complication (HCC)- Primary Acute recurrent sinusitis, unspecified location Multiple allergies Other allergy, other than to medicinal agents [facility]* Diagnosis Asthma with chronic obstructive pulmonary disease (COPD) (HCC) Chronic obstructive asthma, unspecified documented in this encounter [facility] note* Diagnosis Intra-abdominal and pelvic swelling, mass and lump, unspecified site Other specified disorders of kidney and ureter Pancreatic cyst (HCC) Cyst and pseudocyst of pancreas Renal cyst Unspecified congenital cystic kidney disease [facility] Diagnosis Lumbosacral spondylosis without myelopathy- Primary Degeneration of intervertebral disc of lumbosacral region with discogenic back pain and lower extremity pain Spinal stenosis, lumbar region, without neurogenic claudication [facility] Additional Instructions Monitor for signs of infection. Take all of your antibiotics, you received the first dose here in the emergency department. Okay to shower in 24 hours. No soaking in the bath tubs, hot tubs, lakes, rdoriguez, oceans until fully healed. Follow-up with primary care physician. Return back to the ED if symptoms change or worsen. Sutures need to be removed in 14 days. [facility] Work Phone: Reason for referral (narrative)* Diagnostic Procedure Only (Routine) - Closed Specialty Diagnoses / Procedures Referred By Jamie phillip Referred To Contact [facility] Diagnoses Encounter for screening mammogram for breast cancer Procedures AMOS SCREENING SCREENING MAMMOGRAPHY BI 2-VIEW BREAST INC CAD Lew Verduzco MD [address] [place] [address] [facility] [address] [place] [address] Referral ID Status Reason Start Date Expiration Date V isits Requested Visits Authorized [id number] Closed Auto-Generate d Referral 07/10/2021 08/09/2022 1 1 [facility] for referral (narrative)* Outpatient Procedure (Routine) - Pending Review Specialty Diagnoses / Procedures Referred By Contac t Referred To [facility] Diagnoses Asthma, moderate persistent, well-controlled Chronic sinusitis, unspecified location Procedures NITRIC OXIDE, EXHALED NITRIC OXIDE GAS DETERMINATION Ellen Wang PA-C [address] [employer] [address] [address] Referral ID Status Reason Start Date Expiration Date Visits Requested Visits Authorized [id number] Pending Review Auto-Generat ed Referral 11/23/2021 12/23/2022 1 1 * Outpatient Procedure (Routine) - Pending Review Specialty Diagnoses / Procedures Referred By Contac t Referred To [facility] Diagnoses Asthma, moderate persistent, well-controlled Procedures SPIROMETRY BASELINE ONLY SPMTRY W/VC EXPIRATORY PATRICA W/WO MXML VOL VNTJ Ellen Wang PA-C [address] [employer] [address] [address] Referral ID Status Reason Start Date Expiration Date Visits Requested Visits Authorized [id number] Pending Review Auto-Generat ed Referral 11/23/2021 12/23/2022 1 1 [facility] for referral (narrative)* Outpatient Procedure (Routine) - Pending Review Specialty Diagnoses / Procedures Referred By Contac t Referred To [facility] Diagnoses Mild persistent asthma without complication Procedures NITRIC OXIDE, EXHALED NITRIC OXIDE GAS DETERMINATION Mary Lou Nicholson MD [address] [place] [address] [facility] [place] [address] [place] [id number] Referral ID Status Reason Start Date Expiration Date Visits Requested Visits Authorized [id number] Pending Review Auto-Generat ed Referral 06/04/2022 07/04/2023 1 1 [facility] for referral (narrative)* Outpatient Procedure (Routine) - Pending Review Specialty Diagnoses / Procedures [facility] Diagnoses Moderate persistent asthma without complication Procedures NITRIC OXIDE, EXHALED NITRIC OXIDE GAS DETERMINATION Mary Lou Nicholson MD [address] [place] [address] [facility] [place] [address] [place] [id number] Referral ID Status Reason Start Date Expiration Date Visits Requested Visits Authorized [id number] Pending Review Auto-Generat ed Referral 07/11/2023 08/09/2024 1 1 [facility] for referral (narrative)* Diagnostic Procedure Only (Routine) - Pending Review Specialty Diagnoses / Procedures [facility] To [facility] Diagnoses Encounter for screening mammogram for breast cancer Procedures AMOS SCREENING SCREENING MAMMOGRAPHY BI 2-VIEW BREAST INC CAD Edda Oconnor MD [address] [place] [address] [facility] [address] [place] [address] Referral ID Status Reason Start Date Expiration Date Visits Requested Visits Authorized [id number] Pending Review Auto-Generat ed Referral 09/18/2023 10/17/2024 1 1 [facility] for referral (narrative)* Diagnostic Procedure Only (Routine) - Closed Specialty Diagnoses / Procedures Referred By Contac t Referred To Contact XR IMAGING Diagnoses Lumbar pain Procedures XR LUMBAR GENERAL 3V AP/LAT/L5-S1 RADEX SPINE LUMBOSACRAL 2/3 VIEWS Nuno Benson APRN.GEOSCIENCE LABORATORY TECHNICIAN [address] [place] [address] [place] [address] Referral ID Status Reason Start Date Expiration Date V isits Requested Visits Authorized [id number] Closed Auto-Generate d Referral 11/01/2023 11/30/2024 1 1 [facility] for referral (narrative)* Diagnostic Procedure Only (Routine) - Closed Specialty Diagnoses / Procedures Referred By Contac t Referred To Contact XR IMAGING Diagnoses Lumbar pain Procedures XR LUMBAR GENERAL 3V AP/LAT/L5-S1 RADEX SPINE LUMBOSACRAL 2/3 VIEWS Nuno Benson APRN.GEOSCIENCE LABORATORY TECHNICIAN [facility] [place] [address] [place] [address] Referral ID Status Reason Start Date Expiration Date V isits Requested Visits Authorized [id number] Closed Auto-Generate d Referral 11/01/2023 11/30/2024 1 1 [facility] for referral (narrative)* Outpatient Procedure (Routine) - Pending Review Specialty Diagnoses / Procedures Referred By Contac t Referred To [facility] Diagnoses Severe persistent asthma without complication Procedures NITRIC OXIDE, EXHALED NITRIC OXIDE GAS DETERMINATION Mary Lou Nicholson MD [address] [place] [address] [facility] [address] [place] [address] Referral ID Status Reason Start Date Expiration Date Visits Requested Visits Authorized [id number] Pending Review Auto-Generat ed Referral 01/17/2024 02/15/2025 1 1 [facility] for referral (narrative)* Outpatient Procedure (Routine) - Pending Review Specialty Diagnoses / Procedures Referred By Contac t Referred To [facility] Diagnoses Severe persistent asthma without complication Procedures NITRIC OXIDE, EXHALED NITRIC OXIDE GAS DETERMINATION Ana Cristina Urbina APRN.GEOSCIENCE LABORATORY TECHNICIAN [address] [facility] [address] [place] [address] [facility] [address] [place] [address] Referral ID Status Reason Start Date Expiration Date Visits Requested Visits Authorized [id number] Pending Review Auto-Generat ed Referral 04/23/2025 1 1 [facility] for referral (narrative)No reason for referral information availableWFairfield [facility] Work Phone: Reason for visit Narrative* Diagnostic Procedure Only (Routine) - Closed Specialty Diagnoses / Procedures Referred By Contac t Referred To Contact BR IMAGING Diagnoses Encounter for screening mammogram for breast cancer Procedures AMOS SCREENING SCREENING MAMMOGRAPHY BI 2-VIEW BREAST INC CAD Lew Verduzco MD [address] [place] [address] [facility] [address] [place] [address] Referral ID Status Reason Start Date Expiration Date V isits Requested Visits Authorized [id number] Closed Auto-Generate d Referral 07/10/2021 08/09/2022 1 1 [facility] for visit Narrative* Diagnostic Procedure Only (Routine) - Closed Specialty Diagnoses / Procedures Referred By Contac t Referred To Contact XR IMAGING Diagnoses Lumbar pain Procedures XR LUMBAR GENERAL 3V AP/LAT/L5-S1 RADEX SPINE LUMBOSACRAL 2/3 VIEWS Nuno Benson APRN.GEOSCIENCE LABORATORY TECHNICIAN [address] [place] [address] [place] [address] Referral ID Status Reason Start Date Expiration Date V isits Requested Visits Authorized [id number] Closed Auto-Generate d Referral 11/01/2023 11/30/2024 1 1 [facility] for visit Narrative* Diagnostic Procedure Only (Routine) - Closed Specialty Diagnoses / Procedures Referred By Contac t Referred To Contact XR IMAGING Diagnoses Wound of left lower extremity, subsequent encounter Swelling of left lower extremity Procedures XR FOOT GENERAL 3V AP/LAT/OBL LEFT RADEX FOOT COMPLETE MINIMUM 3 VIEWS Nuno Benson, CORE MAKER HELPER.GEOSCIENCE LABORATORY TECHNICIAN [address] [place] [address] Phone: tel: fax: [place] [address] Referral ID Status Reason Start Date Expiration Date V isits Requested Visits Authorized [id number] Closed Auto-Generate d Referral 11/02/2024 12/02/2025 1 1 [facility] for visit Narrative* MRI/CT (Routine) - Closed Specialty Diagnoses / Procedures Referred By Jamie t Referred To Contact CT IMAGING Diagnoses Intra-abdominal and pelvic swelling, mass and lump, unspecified site Other specified disorders of kidney and ureter Pancreatic cyst (HCC) Renal cyst Procedures CT ABDOMEN W IVCON CT ABDOMEN W/CONTRAST Nuno Benson CORE MAKER HELPER.GEOSCIENCE LABORATORY TECHNICIAN [address] [place] [address] Phone: tel: fax: [place] [address] Referral ID Status Reason Start Date Expiration Date V isits Requested Visits Authorized [id number] Closed Auto-Generate d Referral 11/12/2024 02/10/2025 1 1 [facility] Summary Purpose Family History No Family History Records Found Relationship Condition Age at Onset Recorded Date/T felicity Unknown Family History?Cancer, COPD, - Unknown January 07, 2018 1:14pm Family History?Cancer, COPD, - Unknown January 07, 2018 1:14pm Family History?Diabe madi, Heart Disease, Hypertension, Pulmonary Disease Unknown January 07, 2018 1:14pm Family History?Heart Disease, Hypertension Unknown January 07, 2018 1:14pm Relationship Condition Age at Onset Recorded Date/T felicity Unknown Family History?Cancer, COPD, - Unknown January 07, 2018 12:14pm Family History?Cancer, COPD, - Unknown January 07, 2018 12:14pm Family History?Diabe madi, Heart Disease, Hypertension, Pulmonary Disease Unknown January 07, 2018 12:14pm Family History?Heart Disease, Hypertension Unknown January 07, 2018 12:14pm Relationship Condition Age at Onset Recorded Date/T felicity Unknown Family History?Cancer, COPD, - Unknown January 07, 2018 1:14pm Family History?Cancer, COPD, - Unknown June 08, 2024 3:54pm Family History?Diabe madi, Heart Disease, Hypertension, Pulmonary Disease Unknown January 07, 2018 1:14pm Family History?Heart Disease, Hypertension Unknown January 07, 2018 1:14pm Advance Directives No Advanced Directives Records FoundDocuments on File Type Date Recorded 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 Advance Directive(s) Documents on File Type Date Recorded 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 Advance Directive(s) Advance Directive Response Recorded Date/ Time Advance Directives No July 16, 2 015 11:00am Living Will No August 29, 2020 11:21am Power of Tube Skiver No August 29 11:21am Advance Directive Response Recorded Date/ Time Advance Directives No July 16, 2 015 11:00am Living Will No February 06 2 2:36pm Power of Tube Skiver No February 06 022 2:36pm Advance Directive Response Recorded Date/ Time Advance Directives No July 16 2 015 10:00am Living Will No February 06 2 1:36pm Power of Tube Skiver No February 06, 022 1:36pm Advance Directive Response Recorded Date/ Time Advance Directives No June 08, 2024 3:54pm Living Will No April 04, 2 024 10:38am Power of Tube Skiver No April 04, 2024 10:38am Advance Directive Response Recorded Date/ Time Advance Directives No June 08, 2024 3:54pm Advance Directive Response Recorded Date/ Time Do you have a Healthcare Power of Tube Skiver? No October 22, 2024 4:18pm Advance Directives No June 08, 2024 3:54pm Reason for Referral Specialty Diagnoses / Procedures Referred By Contac t Referred To Contact Ent - Otolaryngology Diagnoses Recurrent sinus infections Nasal polyp Procedures CONSULT TO ENT OFFICE/OUTPATIENT [facility] 60-74 MINUTES Older, Yessica, CORE MAKER HELPER.GEOSCIENCE LABORATORY TECHNICIAN [address] [place] [address] Referral ID Status Reason Start Date Expiration Date Visits Requested Visits Authorized [id number] Authorized PCP Requested Referral 07/31/2021 07/31/2022 1 1 Specialty Diagnoses / Procedures Referred By Contac t Referred To Contact Yesica Goddard MD [address] [place] [address] Referral ID Status Reason Start Date Expiration Date Visits Re quested Visits Authorized [id number] Closed 1 1 Referral ID Status Reason Start Date Expiration Date Visits Re quested Visits Authorized [id number] Closed 1 1 Specialty Diagnoses / Procedures Referred By Contac t Referred To Contact Pain Management Diagnoses Fibromyalgia DDD (degenerative disc disease), lumbar Procedures CONSULT TO PAIN MGT OFFICE/OUTPATIENT [facility] 60-74 MINUTES Yessica Hicks CORE MAKER HELPER.GEOSCIENCE LABORATORY TECHNICIAN [address] [place] [address] Referral ID Status Reason Start Date Expiration Date Visits Requested Visits Authorized [id number] Authorized PCP Requested Referral 10/10/2021 10/10/2022 1 1 Specialty Diagnoses / Procedures Referred By Contac t Referred To Contact Diagnoses DDD (degenerative disc disease), lumbosacral Fibromyalgia Lew Verduzco MD [address] [place] [address] Referral ID Status Reason Start Date Expiration Date V isits Requested Visits Authorized [id number] Authorized 12/27/2021 01/10/2023 1 1 Specialty Diagnoses / Procedures Referred By Contac t Referred To Contact MR IMAGING Diagnoses Lumbar radiculopathy Spinal stenosis of lumbar region without neurogenic claudication Procedures MRI LUMBAR SPINE WO IVCON MRI SPINAL CANAL LUMBAR W/O CONTRAST MATERIAL Ermias Solano MD [address] [place] [address] Mr Imaging Referral ID Status Reason Start Date Expiration Date Visits Requested Visits Authorized [id number] Pending Review Auto-Generat ed Referral 2 03/31/2023 1 1 Specialty Diagnoses / Procedures Referred By Contac t Referred To Contact Dermatology Diagnoses Acute vaginitis Procedures CONSULT TO DERMATOLOGY Maria Teresa Edwards, CORE MAKER HELPER.WOVEN LABEL DESIGNER [address] [place] [address] Referral ID Status Reason Start Date Expiration Date Visits Requested Visits Authorized [id number] Ref Not Required PCP Requested Referral 2 04/19/2023 1 1 Specialty Diagnoses / Procedures Referred By Contac t Referred To Contact Allergy Diagnoses Allergic rhinitis, unspecified seasonality, unspecified trigger Procedures CONSULT TO ALLERGY/IMMUNOLOGY OFFICE/OUTPATIENT [facility] 60-74 MINUTES Viji Garcia MD [address] [place] [address] Referral ID Status Reason Start Date Expiration Date Visits Requested Visits Authorized [id number] Authorized PCP Requested Referral 12/03/2022 12/03/2023 1 1 Specialty Diagnoses / Procedures Referred By Contac t Referred To Contact Diagnoses Menopause syndrome Nuno Benson APRN.GEOSCIENCE LABORATORY TECHNICIAN [address] [place] [address] Referral ID Status Reason Start Date Expiration Date Visits Re quested Visits Authorized [id number] Closed 1 1 Specialty Diagnoses / Procedures Referred By Contac t Referred To Contact MR IMAGING Diagnoses Lumbar radiculopathy Spinal stenosis of lumbar region without neurogenic claudication Procedures MRI LUMBAR SPINE WO IVCON MRI SPINAL CANAL LUMBAR W/O CONTRAST MATERIAL Ermias Solano MD [address] [facility] [address] [place] [address] Mr Imaging [place] [address] Referral ID Status Reason Start Date Expiration Date V isits Requested Visits Authorized [id number] Closed Auto-Generate d Referral 03/09/2022 05/05/2022 1 1 Specialty Diagnoses / Procedures Referred By Contac t Referred To Contact Diagnoses Menopause syndrome Edda Oconnor MD [address] [place] [address] Referral ID Status Reason Start Date Expiration Date Visits Re quested Visits Authorized [id number] Closed 1 1 Specialty Diagnoses / Procedures Referred By Contac t Referred To Contact Pain Management Diagnoses Chronic midline low back pain with left-sided sciatica Degeneration of intervertebral disc of lumbar region with discogenic back pain and lower extremity pain Procedures CONSULT TO PAIN MGT Edda Oconnor MD [address] [place] [address] Gerard Bianchi MD [address] [facility] [address] [place] [address] Referral ID Status Reason Start Date Expiration Date Visits Requested Visits Authorized [id number] Authorized PCP Requested Referral 05/04/2025 1 1 Chief Complaint and Reason for Visit Chief Complaint CHRONIC SINUSITIS Chief Complaint CHRONIC SINUSITIS FESS NAVIGATION Reason for Visit Polyp of nasal cavit y Chronic pansinusitis Chief Complaint CHRONIC SINUSITIS FESS NAVIGATION FESS NAVIGATION Reason for Visit Polyp of nasal cavit y Chronic pansinusitis Chief Complaint FESS NAVIGATION FESS NAVIGATION Reason for Visit Polyp of nasal cavit y Chronic pansinusitis Chief Complaint Admit Date BACK,LOWER EXT April 04, 2024 9:31am EORDER April 23, 2024 12:33pm XRAY June 08, 2024 2 :55pm Chief Complaint Admit Date XRAY June 08, 2024 2 :55pm Chief Complaint Admit Date fallOctober 22, 2024 4:18 pm Chief Complaint Admit Date fallOctober 22, 2024 4:18 pm wound November 11, 2024 12:17 pm L WALLS WOUND November 18, 2024 9:20 am L WALLS WOUND November 25, 2024 10:4 7am L WALLS WOUND December 02, 2024 8:30 am L WALLS WOUND December 02, 2024 9:54 am Reason for Visit Admit Date Infected wound December 02, 2024 8:30 am Nonhealing surgical wound December 02 8:30am Traumatic ulcer of left lower leg November 052024 8:30am Ulcer of left lower extremity with necro sis of muscle December 02, 2024 8:30am Chief Complaint Admit Date fallOctober 22, 2024 4:18 pm wound November 11, 2024 12:17 pm L WALLS WOUND November 18, 2024 9:20 am L WALLS WOUND November 25, 2024 10:4 7am L WALLS WOUND December 02, 2024 8:30 am L WALLS WOUND December 02, 2024 9:54 am L WALLS WOUND December 09, 2024 9:4 9am L WALLS WOUND December 16, 2024 9: 58am L WALLS WOUND December 23, 2024 8: 30am L WALLS WOUND December 23, 2024 11 :38am Reason for Visit Admit Date Infected wound December 02, 2024 8:30 am Nonhealing surgical wound December 02 8:30am Traumatic ulcer of left lower leg November 052024 8:30am Ulcer of left lower extremity with necro sis of muscle December 02, 2024 8:30am Infected wound December 23, 2024 8: 30am Nonhealing surgical wound December 23, 025 8:30am Traumatic ulcer of left lower leg December 23, 2024 8:30am Chief Complaint Admit Date fall October 22, 2024 4:18 pm wound November 11, 2024 12:17 pm L WALLS WOUND November 18, 2024 9:20 am L WALLS WOUND November 25, 2024 10:4 7am L WALLS WOUND December 02, 2024 8:30 am L WALLS WOUND December 02, 2024 9:54 am L WALLS WOUND December 09, 2024 9:4 9am L WALLS WOUND December 16, 2024 9: 58am L WALLS WOUND December 23, 2024 8: 30am L WALLS WOUND December 23, 2024 11 :38am Pancreatic Lesion January 14, 2025 3:18pm Medications Administered Section Inactive Administered Medications - [...] ized section and content) DATE CREATED AUTHOR 10/29/2017 [facility] DATE CREATED AUTHOR AUTHOR'S ORGANIZ ATION 06/18/2020 [facility] DATE CREATED AUTHOR AUTHOR'S ORGANIZ ATION 05/03/2022 [facility] DATE CREATED AUTHOR AUTHOR'S ORGANIZ ATION 02/14/2025 [facility] DATE CREATED AUTHOR AUTHOR'S ORGANIZ ATION 03/04/2025 [facility] DATE CREATED AUTHOR AUTHOR'S ORGANIZ ATION 03/17/2025 [facility] Source Comments (unrecognize d section and content) In the event this informatio n is protected by the Federal Confidentiality of Alcohol and Drug Abuse Patient Records regulations: The Federal rules restrict any use of the information to criminally investigate or prosecute any alcohol or drug abuse patient.[facility] the event this information is protected by the Federal Confidentiality of Alcohol and Drug Abuse Patient Records regulations: The Federal rules restrict any use of the information to criminally investigate or prosecute any alcohol or drug abuse patient.[facility] HospitalIn the event this information is protected by the Federal Confidentiality of Alcohol and Drug Abuse Patient Records regulations: The Federal rules restrict any use of the information to criminally investigate or prosecute any alcohol or drug abuse patient.[facility] HospitalIn the event this information is protected by the Federal Confidentiality of Alcohol and Drug Abuse Patient Records regulations: The Federal rules restrict any use of the information to criminally investigate or prosecute any alcohol or drug abuse patient.[facility] HospitalIn the event this information is protected by the Federal Confidentiality of Alcohol and Drug Abuse Patient Records regulations: The Federal rules restrict any use of the information to criminally investigate or prosecute any alcohol or drug abuse patient.[facility] HospitalIn the event this information is protected by the Federal Confidentiality of Alcohol and Drug Abuse Patient Records regulations: The Federal rules restrict any use of the information to criminally investigate or prosecute any alcohol or drug abuse patient.[facility] HospitalIn the event this information is protected by the Federal Confidentiality of Alcohol and Drug Abuse Patient Records regulations: The Federal rules restrict any use of the information to criminally investigate or prosecute any alcohol or drug abuse patient.[facility] HospitalIn the event this information is protected by the Federal Confidentiality of Alcohol and Drug Abuse Patient Records regulations: The Federal rules restrict any use of the information to criminally investigate or prosecute any alcohol or drug abuse patient.[facility] HospitalIn the event this information is protected by the Federal Confidentiality of Alcohol and Drug Abuse Patient Records regulations: The Federal rules restrict any use of the information to criminally investigate or prosecute any alcohol or drug abuse patient.[facility] HospitalIn the event this information is protected by the Federal Confidentiality of Alcohol and Drug Abuse Patient Records regulations: The Federal rules restrict any use of the information to criminally investigate or prosecute any alcohol or drug abuse patient.[facility] HospitalIn the event this information is protected by the Federal Confidentiality of Alcohol and Drug Abuse Patient Records regulations: The Federal rules restrict any use of the information to criminally investigate or prosecute any alcohol or drug abuse patient.[facility] HospitalIn the event this information is protected by the Federal Confidentiality of Alcohol and Drug Abuse Patient Records regulations: The Federal rules restrict any use of the information to criminally investigate or prosecute any alcohol or drug abuse patient.[facility] HospitalIn the event this information is protected by the Federal Confidentiality of Alcohol and Drug Abuse Patient Records regulations: The Federal rules restrict any use of the information to criminally investigate or prosecute any alcohol or drug abuse patient.[facility] HospitalIn the event this information is protected by the Federal Confidentiality of Alcohol and Drug Abuse Patient Records regulations: The Federal rules restrict any use of the information to criminally investigate or prosecute any alcohol or drug abuse patient.[facility] HospitalIn the event this information is protected by the Federal Confidentiality of Alcohol and Drug Abuse Patient Records regulations: The Federal rules restrict any use of the information to criminally investigate or prosecute any alcohol or drug abuse patient.[facility] HospitalIn the event this information is protected by the Federal Confidentiality of Alcohol and Drug Abuse Patient Records regulations: The Federal rules restrict any use of the information to criminally investigate or prosecute any alcohol or drug abuse patient.[facility] HospitalIn the event this information is protected by the Federal Confidentiality of Alcohol and Drug Abuse Patient Records regulations: The Federal rules restrict any use of the information to criminally investigate or prosecute any alcohol or drug abuse patient.[facility] HospitalIn the event this information is protected by the Federal Confidentiality of Alcohol and Drug Abuse Patient Records regulations: The Federal rules restrict any use of the information to criminally investigate or prosecute any alcohol or drug abuse patient.[facility] HospitalIn the event this information is protected by the Federal Confidentiality of Alcohol and Drug Abuse Patient Records regulations: The Federal rules restrict any use of the information to criminally investigate or prosecute any alcohol or drug abuse patient.[facility] HospitalIn the event this information is protected by the Federal Confidentiality of Alcohol and Drug Abuse Patient Records regulations: The Federal rules restrict any use of the information to criminally investigate or prosecute any alcohol or drug abuse patient.[facility] HospitalIn the event this information is protected by the Federal Confidentiality of Alcohol and Drug Abuse Patient Records regulations: The Federal rules restrict any use of the information to criminally investigate or prosecute any alcohol or drug abuse patient.[facility] HospitalIn the event this information is protected by the Federal Confidentiality of Alcohol and Drug Abuse Patient Records regulations: The Federal rules restrict any use of the information to criminally investigate or prosecute any alcohol or drug abuse patient.[facility] HospitalIn the event this information is protected by the Federal Confidentiality of Alcohol and Drug Abuse Patient Records regulations: The Federal rules restrict any use of the information to criminally investigate or prosecute any alcohol or drug abuse patient.[facility] HospitalIn the event this information is protected by the Federal Confidentiality of Alcohol and Drug Abuse Patient Records regulations: The Federal rules restrict any use of the information to criminally investigate or prosecute any alcohol or drug abuse patient.[facility] HospitalIn the event this information is protected by the Federal Confidentiality of Alcohol and Drug Abuse Patient Records regulations: The Federal rules restrict any use of the information to criminally investigate or prosecute any alcohol or drug abuse patient.[facility] HospitalIn the event this information is protected by the Federal Confidentiality of Alcohol and Drug Abuse Patient Records regulations: The Federal rules restrict any use of the information to criminally investigate or prosecute any alcohol or drug abuse patient.[facility] HospitalIn the event this information is protected by the Federal Confidentiality of Alcohol and Drug Abuse Patient Records regulations: The Federal rules restrict any use of the information to criminally investigate or prosecute any alcohol or drug abuse patient.[facility] HospitalIn the event this information is protected by the Federal Confidentiality of Alcohol and Drug Abuse Patient Records regulations: The Federal rules restrict any use of the information to criminally investigate or prosecute any alcohol or drug abuse patient.[facility] HospitalIn the event this information is protected by the Federal Confidentiality of Alcohol and Drug Abuse Patient Records regulations: The Federal rules restrict any use of the information to criminally investigate or prosecute any alcohol or drug abuse patient.[facility] HospitalIn the event this information is protected by the Federal Confidentiality of Alcohol and Drug Abuse Patient Records regulations: The Federal rules restrict any use of the information to criminally investigate or prosecute any alcohol or drug abuse patient.[facility] HospitalIn the event this information is protected by the Federal Confidentiality of Alcohol and Drug Abuse Patient Records regulations: The Federal rules restrict any use of the information to criminally investigate or prosecute any alcohol or drug abuse patient.[facility] HospitalIn the event this information is protected by the Federal Confidentiality of Alcohol and Drug Abuse Patient Records regulations: The Federal rules restrict any use of the information to criminally investigate or prosecute any alcohol or drug abuse patient.[facility] HospitalIn the event this information is protected by the Federal Confidentiality of Alcohol and Drug Abuse Patient Records regulations: The Federal rules restrict any use of the information to criminally investigate or prosecute any alcohol or drug abuse patient.[facility] HospitalIn the event this information is protected by the Federal Confidentiality of Alcohol and Drug Abuse Patient Records regulations: The Federal rules restrict any use of the information to criminally investigate or prosecute any alcohol or drug abuse patient.[facility] HospitalIn the event this information is protected by the Federal Confidentiality of Alcohol and Drug Abuse Patient Records regulations: The Federal rules restrict any use of the information to criminally investigate or prosecute any alcohol or drug abuse patient.[facility] HospitalIn the event this information is protected by the Federal Confidentiality of Alcohol and Drug Abuse Patient Records regulations: The Federal rules restrict any use of the information to criminally investigate or prosecute any alcohol or drug abuse patient.[facility] HospitalIn the event this information is protected by the Federal Confidentiality of Alcohol and Drug Abuse Patient Records regulations: The Federal rules restrict any use of the information to criminally investigate or prosecute any alcohol or drug abuse patient.[facility] HospitalIn the event this information is protected by the Federal Confidentiality of Alcohol and Drug Abuse Patient Records regulations: The Federal rules restrict any use of the information to criminally investigate or prosecute any alcohol or drug abuse patient.[facility] HospitalIn the event this information is protected by the Federal Confidentiality of Alcohol and Drug Abuse Patient Records regulations: The Federal rules restrict any use of the information to criminally investigate or prosecute any alcohol or drug abuse patient.[facility] HospitalIn the event this information is protected by the Federal Confidentiality of Alcohol and Drug Abuse Patient Records regulations: The Federal rules restrict any use of the information to criminally investigate or prosecute any alcohol or drug abuse patient.[facility] HospitalIn the event this information is protected by the Federal Confidentiality of Alcohol and Drug Abuse Patient Records regulations: The Federal rules restrict any use of the information to criminally investigate or prosecute any alcohol or drug abuse patient.[facility] HospitalIn the event this information is protected by the Federal Confidentiality of Alcohol and Drug Abuse Patient Records regulations: The Federal rules restrict any use of the information to criminally investigate or prosecute any alcohol or drug abuse patient.[facility] HospitalIn the event this information is protected by the Federal Confidentiality of Alcohol and Drug Abuse Patient Records regulations: The Federal rules restrict any use of the information to criminally investigate or prosecute any alcohol or drug abuse patient.[facility] HospitalIn the event this information is protected by the Federal Confidentiality of Alcohol and Drug Abuse Patient Records regulations: The Federal rules restrict any use of the information to criminally investigate or prosecute any alcohol or drug abuse patient.[facility] HospitalIn the event this information is protected by the Federal Confidentiality of Alcohol and Drug Abuse Patient Records regulations: The Federal rules restrict any use of the information to criminally investigate or prosecute any alcohol or drug abuse patient.[facility] HospitalIn the event this information is protected by the Federal Confidentiality of Alcohol and Drug Abuse Patient Records regulations: The Federal rules restrict any use of the information to criminally investigate or prosecute any alcohol or drug abuse patient.[facility] HospitalIn the event this information is protected by the Federal Confidentiality of Alcohol and Drug Abuse Patient Records regulations: The Federal rules restrict any use of the information to criminally investigate or prosecute any alcohol or drug abuse patient.[facility] HospitalIn the event this information is protected by the Federal Confidentiality of Alcohol and Drug Abuse Patient Records regulations: The Federal rules restrict any use of the information to criminally investigate or prosecute any alcohol or drug abuse patient.[facility] HospitalIn the event this information is protected by the Federal Confidentiality of Alcohol and Drug Abuse Patient Records regulations: The Federal rules restrict any use of the information to criminally investigate or prosecute any alcohol or drug abuse patient.[facility] HospitalIn the event this information is protected by the Federal Confidentiality of Alcohol and Drug Abuse Patient Records regulations: The Federal rules restrict any use of the information to criminally investigate or prosecute any alcohol or drug abuse patient.[facility] HospitalIn the event this information is protected by the Federal Confidentiality of Alcohol and Drug Abuse Patient Records regulations: The Federal rules restrict any use of the information to criminally investigate or prosecute any alcohol or drug abuse patient.[facility] HospitalIn the event this information is protected by the Federal Confidentiality of Alcohol and Drug Abuse Patient Records regulations: The Federal rules restrict any use of the information to criminally investigate or prosecute any alcohol or drug abuse patient.[facility] HospitalIn the event this information is protected by the Federal Confidentiality of Alcohol and Drug Abuse Patient Records regulations: The Federal rules restrict any use of the information to criminally investigate or prosecute any alcohol or drug abuse patient.[facility] HospitalIn the event this information is protected by the Federal Confidentiality of Alcohol and Drug Abuse Patient Records regulations: The Federal rules restrict any use of the information to criminally investigate or prosecute any alcohol or drug abuse patient.[facility] HospitalIn the event this information is protected by the Federal Confidentiality of Alcohol and Drug Abuse Patient Records regulations: The Federal rules restrict any use of the information to criminally investigate or prosecute any alcohol or drug abuse patient.[facility] HospitalIn the event this information is protected by the Federal Confidentiality of Alcohol and Drug Abuse Patient Records regulations: The Federal rules restrict any use of the information to criminally investigate or prosecute any alcohol or drug abuse patient.[facility] HospitalIn the event this information is protected by the Federal Confidentiality of Alcohol and Drug Abuse Patient Records regulations: The Federal rules restrict any use of the information to criminally investigate or prosecute any alcohol or drug abuse patient.[facility] HospitalIn the event this information is protected by the Federal Confidentiality of Alcohol and Drug Abuse Patient Records regulations: The Federal rules restrict any use of the information to criminally investigate or prosecute any alcohol or drug abuse patient.[facility] HospitalIn the event this information is protected by the Federal Confidentiality of Alcohol and Drug Abuse Patient Records regulations: The Federal rules restrict any use of the information to criminally investigate or prosecute any alcohol or drug abuse patient.[facility] HospitalIn the event this information is protected by the Federal Confidentiality of Alcohol and Drug Abuse Patient Records regulations: The Federal rules restrict any use of the information to criminally investigate or prosecute any alcohol or drug abuse patient.[facility] HospitalIn the event this information is protected by the Federal Confidentiality of Alcohol and Drug Abuse Patient Records regulations: The Federal rules restrict any use of the information to criminally investigate or prosecute any alcohol or drug abuse patient.[facility] HospitalIn the event this information is protected by the Federal Confidentiality of Alcohol and Drug Abuse Patient Records regulations: The Federal rules restrict any use of the information to criminally investigate or prosecute any alcohol or drug abuse patient.[facility] HospitalIn the event this information is protected by the Federal Confidentiality of Alcohol and Drug Abuse Patient Records regulations: The Federal rules restrict any use of the information to criminally investigate or prosecute any alcohol or drug abuse patient.[facility] HospitalIn the event this information is protected by the Federal Confidentiality of Alcohol and Drug Abuse Patient Records regulations: The Federal rules restrict any use of the information to criminally investigate or prosecute any alcohol or drug abuse patient.[facility] HospitalIn the event this information is protected by the Federal Confidentiality of Alcohol and Drug Abuse Patient Records regulations: The Federal rules restrict any use of the information to criminally investigate or prosecute any alcohol or drug abuse patient.[facility] HospitalIn the event this information is protected by the Federal Confidentiality of Alcohol and Drug Abuse Patient Records regulations: The Federal rules restrict any use of the information to criminally investigate or prosecute any alcohol or drug abuse patient.[facility] HospitalIn the event this information is protected by the Federal Confidentiality of Alcohol and Drug Abuse Patient Records regulations: The Federal rules restrict any use of the information to criminally investigate or prosecute any alcohol or drug abuse patient.[facility] HospitalIn the event this information is protected by the Federal Confidentiality of Alcohol and Drug Abuse Patient Records regulations: The Federal rules restrict any use of the information to criminally investigate or prosecute any alcohol or drug abuse patient.[facility] HospitalIn the event this information is protected by the Federal Confidentiality of Alcohol and Drug Abuse Patient Records regulations: The Federal rules restrict any use of the information to criminally investigate or prosecute any alcohol or drug abuse patient.[facility] HospitalIn the event this information is protected by the Federal Confidentiality of Alcohol and Drug Abuse Patient Records regulations: The Federal rules restrict any use of the information to criminally investigate or prosecute any alcohol or drug abuse patient.[facility] HospitalIn the event this information is protected by the Federal Confidentiality of Alcohol and Drug Abuse Patient Records regulations: The Federal rules restrict any use of the information to criminally investigate or prosecute any alcohol or drug abuse patient.[facility] HospitalIn the event this information is protected by the Federal Confidentiality of Alcohol and Drug Abuse Patient Records regulations: The Federal rules restrict any use of the information to criminally investigate or prosecute any alcohol or drug abuse patient.[facility] HospitalIn the event this information is protected by the Federal Confidentiality of Alcohol and Drug Abuse Patient Records regulations: The Federal rules restrict any use of the information to criminally investigate or prosecute any alcohol or drug abuse patient.[facility] HospitalIn the event this information is protected by the Federal Confidentiality of Alcohol and Drug Abuse Patient Records regulations: The Federal rules restrict any use of the information to criminally investigate or prosecute any alcohol or drug abuse patient.[facility] HospitalIn the event this information is protected by the Federal Confidentiality of Alcohol and Drug Abuse Patient Records regulations: The Federal rules restrict any use of the information to criminally investigate or prosecute any alcohol or drug abuse patient.[facility] HospitalIn the event this information is protected by the Federal Confidentiality of Alcohol and Drug Abuse Patient Records regulations: The Federal rules restrict any use of the information to criminally investigate or prosecute any alcohol or drug abuse patient.[facility] HospitalIn the event this information is protected by the Federal Confidentiality of Alcohol and Drug Abuse Patient Records regulations: The Federal rules restrict any use of the information to criminally investigate or prosecute any alcohol or drug abuse patient.[facility] HospitalIn the event this information is protected by the Federal Confidentiality of Alcohol and Drug Abuse Patient Records regulations: The Federal rules restrict any use of the information to criminally investigate or prosecute any alcohol or drug abuse patient.[facility] HospitalIn the event this information is protected by the Federal Confidentiality of Alcohol and Drug Abuse Patient Records regulations: The Federal rules restrict any use of the information to criminally investigate or prosecute any alcohol or drug abuse patient.[facility] HospitalIn the event this information is protected by the Federal Confidentiality of Alcohol and Drug Abuse Patient Records regulations: The Federal rules restrict any use of the information to criminally investigate or prosecute any alcohol or drug abuse patient.[facility] HospitalIn the event this information is protected by the Federal Confidentiality of Alcohol and Drug Abuse Patient Records regulations: The Federal rules restrict any use of the information to criminally investigate or prosecute any alcohol or drug abuse patient.[facility] HospitalIn the event this information is protected by the Federal Confidentiality of Alcohol and Drug Abuse Patient Records regulations: The Federal rules restrict any use of the information to criminally investigate or prosecute any alcohol or drug abuse patient.[facility] HospitalIn the event this information is protected by the Federal Confidentiality of Alcohol and Drug Abuse Patient Records regulations: The Federal rules restrict any use of the information to criminally investigate or prosecute any alcohol or drug abuse patient.[facility] HospitalIn the event this information is protected by the Federal Confidentiality of Alcohol and Drug Abuse Patient Records regulations: The Federal rules restrict any use of the information to criminally investigate or prosecute any alcohol or drug abuse patient.[facility] HospitalIn the event this information is protected by the Federal Confidentiality of Alcohol and Drug Abuse Patient Records regulations: The Federal rules restrict any use of the information to criminally investigate or prosecute any alcohol or drug abuse patient.[facility] HospitalIn the event this information is protected by the Federal Confidentiality of Alcohol and Drug Abuse Patient Records regulations: The Federal rules restrict any use of the information to criminally investigate or prosecute any alcohol or drug abuse patient.[facility] HospitalIn the event this information is protected by the Federal Confidentiality of Alcohol and Drug Abuse Patient Records regulations: The Federal rules restrict any use of the information to criminally investigate or prosecute any alcohol or drug abuse patient.[facility] HospitalIn the event this information is protected by the Federal Confidentiality of Alcohol and Drug Abuse Patient Records regulations: The Federal rules restrict any use of the information to criminally investigate or prosecute any alcohol or drug abuse patient.[facility] HospitalIn the event this information is protected by the Federal Confidentiality of Alcohol and Drug Abuse Patient Records regulations: The Federal rules restrict any use of the information to criminally investigate or prosecute any alcohol or drug abuse patient.[facility] HospitalIn the event this information is protected by the Federal Confidentiality of Alcohol and Drug Abuse Patient Records regulations: The Federal rules restrict any use of the information to criminally investigate or prosecute any alcohol or drug abuse patient.[facility] HospitalIn the event this information is protected by the Federal Confidentiality of Alcohol and Drug Abuse Patient Records regulations: The Federal rules restrict any use of the information to criminally investigate or prosecute any alcohol or drug abuse patient.[facility] HospitalIn the event this information is protected by the Federal Confidentiality of Alcohol and Drug Abuse Patient Records regulations: The Federal rules restrict any use of the information to criminally investigate or prosecute any alcohol or drug abuse patient.[facility] HospitalIn the event this information is protected by the Federal Confidentiality of Alcohol and Drug Abuse Patient Records regulations: The Federal rules restrict any use of the information to criminally investigate or prosecute any alcohol or drug abuse patient.[facility] HospitalIn the event this information is protected by the Federal Confidentiality of Alcohol and Drug Abuse Patient Records regulations: The Federal rules restrict any use of the information to criminally investigate or prosecute any alcohol or drug abuse patient.[facility] HospitalIn the event this information is protected by the Federal Confidentiality of Alcohol and Drug Abuse Patient Records regulations: The Federal rules restrict any use of the information to criminally investigate or prosecute any alcohol or drug abuse patient.[facility] HospitalIn the event this information is protected by the Federal Confidentiality of Alcohol and Drug Abuse Patient Records regulations: The Federal rules restrict any use of the information to criminally investigate or prosecute any alcohol or drug abuse patient.[facility] HospitalIn the event this information is protected by the Federal Confidentiality of Alcohol and Drug Abuse Patient Records regulations: The Federal rules restrict any use of the information to criminally investigate or prosecute any alcohol or drug abuse patient.[facility] HospitalIn the event this information is protected by the Federal Confidentiality of Alcohol and Drug Abuse Patient Records regulations: The Federal rules restrict any use of the information to criminally investigate or prosecute any alcohol or drug abuse patient.[facility] HospitalIn the event this information is protected by the Federal Confidentiality of Alcohol and Drug Abuse Patient Records regulations: The Federal rules restrict any use of the information to criminally investigate or prosecute any alcohol or drug abuse patient.[facility] HospitalIn the event this information is protected by the Federal Confidentiality of Alcohol and Drug Abuse Patient Records regulations: The Federal rules restrict any use of the information to criminally investigate or prosecute any alcohol or drug abuse patient.[facility] HospitalIn the event this information is protected by the Federal Confidentiality of Alcohol and Drug Abuse Patient Records regulations: The Federal rules restrict any use of the information to criminally investigate or prosecute any alcohol or drug abuse patient.[facility] HospitalIn the event this information is protected by the Federal Confidentiality of Alcohol and Drug Abuse Patient Records regulations: The Federal rules restrict any use of the information to criminally investigate or prosecute any alcohol or drug abuse patient.[facility] HospitalIn the event this information is protected by the Federal Confidentiality of Alcohol and Drug Abuse Patient Records regulations: The Federal rules restrict any use of the information to criminally investigate or prosecute any alcohol or drug abuse patient.[facility] HospitalIn the event this information is protected by the Federal Confidentiality of Alcohol and Drug Abuse Patient Records regulations: The Federal rules restrict any use of the information to criminally investigate or prosecute any alcohol or drug abuse patient.[facility] HospitalIn the event this information is protected by the Federal Confidentiality of Alcohol and Drug Abuse Patient Records regulations: The Federal rules restrict any use of the information to criminally investigate or prosecute any alcohol or drug abuse patient.[facility] HospitalIn the event this information is protected by the Federal Confidentiality of Alcohol and Drug Abuse Patient Records regulations: The Federal rules restrict any use of the information to criminally investigate or prosecute any alcohol or drug abuse patient.[facility] Reason for Visit (unrecogniz ed section and content) Reason Comments New Patient Evaluation Specialty Diagnoses / Procedures Referred By Contac t Referred To Contact Allergy Diagnoses Allergic rhinitis, unspecified seasonality, unspecified trigger Procedures CONSULT TO ALLERGY/IMMUNOLOGY OFFICE/OUTPATIENT NEW HIGH MDM 60-74 MINUTES Viji Garcia MD [address] [place] [address] Referral ID Status Reason Start Date Expiration Date V isits Requested Visits Authorized [id number] Closed PCP Requested Referral 12/03/2022 12/03/2023 1 1 Reason Comments Referral Request Reason Comments Patient Question Reason Comments Spirometry Specialty Diagnoses / Procedures Referred By Contac t Referred To Contact [facility] Diagnoses Asthma with chronic obstructive pulmonary disease (COPD) ([facility]) Procedures SPIROMETRY BASELINE ONLY SPIROMETRY WO BRONCHODILATOR Ellen Wang PA-C [address] [address] [facility] [place] [address] [place] [address] Referral ID Status Reason Start Date Expiration Date V isits Requested Visits Authorized [id number] Closed Auto-Generate d Referral 05/18/2021 06/17/2022 1 1 Specialty Diagnoses / Procedures Referred By Contac t Referred To Contact [facility] Diagnoses Asthma with chronic obstructive pulmonary disease (COPD) ([facility]) Procedures NITRIC OXIDE, EXHALED EXHALED NITRIC OXIDE SPMTRY W/VC EXPIRATORY PATRICA W/WO MXML VOL VNTJ Ellen Wang PA-C [address] [employer] [address] [address] [facility] [place] [address] [place] [id number] Referral ID Status Reason Start Date Expiration Date V isits Requested Visits Authorized [id number] Closed Auto-Generate d Referral 08/07/2021 05/05/2022 1 1 Reason Comments Established Patient Asthma Specialty Diagnoses / Procedures Referred By Contac t Referred To Contact Pulmonary and Critical Care Medicine / PULMONARY MEDICINE Diagnoses Asthma with chronic obstructive pulmonary disease (COPD) ([facility]) Asthma with chronic obstructive pulmonary disease (COPD) ([facility]) [J44.9] Procedures OFFICE/OUTPATIENT ESTABLISHED SF MDM 10-19 MIN OFFICE/OUTPATIENT ESTABLISHED HIGH MDM 40-54 MIN RI EST ASTHMA Yesica Goddard MD [address] [place] [address] Yesica Goddard MD [address] [id number] Referral ID Status Reason Start Date Expiration Date V isits Requested Visits Authorized [id number] Authorized 08/28/2021 11/26/2021 99 99 Reason Comments [...] Procedures RI EST ASTHMA Lew Verduzco MD [address] [place] [address] Ellen Wang PA-C [address] [employer] [address] [address] Referral ID Status Reason Start Date Expiration Date V isits Requested Visits Authorized [id number] Authorized 11/12/2021 05/05/2022 10 10 Reason Onset Date Comments Refill Request 11/30/2021 Specialty Diagnoses / Procedures Referred By Contac t Referred To Contact Pain Management / PAIN MANAGEMENT Diagnoses New patient - Fibromyalgia/Digenerat josé miguel disc disease/Lower back pain/Referred by Older (BC) Procedures OFFICE/OUTPATIENT NEW MODERATE MDM 45-59 MINUTES NEW PATIENT MD Russ Martinez Kermit, MD [address] [place] [address] Referral ID Status Reason Start Date Expiration Date Visits Re quested Visits Authorized [id number] Closed 05/06/2021 05/05/2022 1 1 Reason Onset Date Comments Refill Request 01/05/2022 Reason Comments F/U 6 months Reason Comments Follow Up Specialty Diagnoses / Procedures Referred By Contac t Referred To Contact Pain Management / PAIN MANAGEMENT Diagnoses 2 month followup Procedures OFFICE/OUTPATIENT ESTABLISHED MOD MDM 30-39 MIN EST PATIENT Ermias Solano MD [address] [place] [address] Ermias Solano MD [address] [place] [address] Referral ID Status Reason Start Date Expiration Date Visits Re quested Visits Authorized [id number] Closed 05/06/2021 05/05/2022 1 1 Reason Comments Urinary Frequency Reason Comments Itching Adry area - from fro nt to back Reason Comments Follow Up Low Back Pain Neck Pain Specialty Diagnoses / Procedures Referred By Contac t Referred To Contact Pain Management / PAIN MANAGEMENT Diagnoses 2 months follow up Procedures EST PATIENT Ermias Solano MD [address] [place] [address] Elia Jacob, CORE MAKER HELPER.GEOSCIENCE LABORATORY TECHNICIAN [address] [place] [address] Referral ID Status Reason Start Date Expiration Date Visits Re quested Visits Authorized [id number] Closed 05/06/2021 05/05/2022 1 1 Specialty Diagnoses / Procedures Referred By Contac t Referred To Contact [facility] Diagnoses Asthma, moderate persistent, well-controlled Procedures SPIROMETRY BASELINE ONLY SPMTRY W/VC EXPIRATORY PATRICA W/WO MXML VOL VNTJ Ellen Wang PA-C [address] [place] [address] [address] Referral ID Status Reason Start Date Expiration Date V isits Requested Visits Authorized [id number] Closed Auto-Generate d Referral 04/13/2022 07/07/2022 1 1 Specialty Diagnoses / Procedures Referred By Contac t Referred To Contact [facility] Diagnoses Asthma, moderate persistent, well-controlled Chronic sinusitis, unspecified location Procedures NITRIC OXIDE, EXHALED NITRIC OXIDE GAS DETERMINATION Ellen Wang PA-C [address] [place] [address] [address] Referral ID Status Reason Start Date Expiration Date V isits Requested Visits Authorized [id number] Closed Auto-Generate d Referral 04/13/2022 07/07/2022 1 1 Reason Comments Recheck COPD Asthma Specialty Diagnoses / Procedures Referred By Contac t Referred To Contact Pulmonary and Critical Care Medicine / PULMONARY MEDICINE Diagnoses FOLLOW UP ASTHMA AND COPD - PATIENT OF DR GODDARD Procedures RI EST ASTHMA Mary Lou Nicholson MD [address] [place] [address] Mary Lou Nicholson MD [address] [place] [address] Referral ID Status Reason Start Date Expiration Date Visits Re quested Visits Authorized [id number] Closed 04/27/2022 06/26/2022 1 1 Reason Onset [...] MDM 60-74 MINUTES RI EST ASTHMA Ellen Wang PA-C [address] [place] [address] Ellen Wang PA-C [address] [place] [address] Referral ID Status Reason Start Date Expiration Date V isits Requested Visits Authorized [id number] Authorized 05/06/2022 05/05/2023 2 2 Reason Comments [...] LUMBAR W/O CONTRAST MATERIAL Ermias Solano MD [address] [facility] [address] [place] [address] [place] [address] Referral ID Status Reason Start Date Expiration Date V isits Requested Visits Authorized [id number] Closed Auto-Generate d Referral 03/09/2022 05/05/2022 1 1 Reason Comments F/U 6 months Reason Onset Date Comments Refill Request 07/04/2023 Reason Comments Asthma 6 month follow up Specialty Diagnoses / Procedures Referred By Contac t Referred To Contact Pulmonary and Critical Care Medicine / PULMONARY MEDICINE Diagnoses 6 month f/u Procedures OFFICE/OUTPATIENT ESTABLISHED SF MDM 10 MIN OFFICE/OUTPATIENT ESTABLISHED LOW MDM 20 MIN OFFICE/OUTPATIENT ESTABLISHED MOD MDM 30 MIN OFFICE/OUTPATIENT ESTABLISHED HIGH MDM 40 MIN OFFICE/OUTPATIENT EST PT MAY NOT REQ PHYS/QHP RI EST ASTHMA Edda Oconnor MD [address] [place] [address] Mary Lou Nicholson MD [address] [facility] [address] Referral ID Status Reason Start Date Expiration Date Visits Re quested Visits Authorized [id number] Closed 07/11/2023 05/05/2024 1 1 Reason Onset Date Comments Refill Request 11/04/2023 Reason Comments Results Reason Onset Date Comments Refill Request 11/11/2023 Reason Onset Date Comments Refill Request 11/14/2023 Reason Comments Refill Request Reason Onset Date Comments Refill Request 01/13/2024 Specialty Diagnoses / Procedures Referred By Jamie phillip Referred To Contact [facility] Diagnoses Moderate persistent asthma without complication Procedures NITRIC OXIDE, EXHALED NITRIC OXIDE GAS DETERMINATION Mary Lou Nicholson MD [address] [place] [address] [address] Referral ID Status Reason Start Date Expiration Date V isits Requested Visits Authorized [id number] Closed Auto-Generate d Referral 05/06/2023 05/05/2024 1 1 Reason Onset Date Comments Refill Request 01/21/2024 Reason Onset Date Comments Refill Request 01/23/2024 Reason Onset Date Comments Refill Request 03/16/2024 Reason Comments Sinus Problem Specialty Diagnoses / Procedures Referred By Jamie phillip Referred To Contact [facility] Diagnoses Severe persistent asthma without complication Procedures NITRIC OXIDE, EXHALED NITRIC OXIDE GAS DETERMINATION Mary Lou Nicholson MD [address] [place] [address] [address] Referral ID Status Reason Start Date Expiration Date V isits Requested Visits Authorized [id number] Closed Auto-Generate d Referral 02/28/2024 05/05/2024 1 1 Reason Comments Established Patient 2 month follow up as [facility] Specialty Diagnoses / Procedures Referred By Jamie phillip Referred To Contact Pulmonary Disease / PULMONARY MEDICINE Diagnoses Asthma Infectious gastroenteritis and colitis, unspecified 2 MTH F/U ASTHMA Procedures OFFICE/OUTPATIENT ESTABLISHED SF MDM 10 MIN OFFICE/OUTPATIENT ESTABLISHED LOW MDM 20 MIN OFFICE/OUTPATIENT ESTABLISHED MOD MDM 30 MIN OFFICE/OUTPATIENT ESTABLISHED HIGH MDM 40 MIN RI EST ASTHMA Mary Lou Nicholson MD [address] [place] [id number] Ana Cristina Urbina APRN.GEOSCIENCE LABORATORY TECHNICIAN [address] [employer] [address] [place] [id number] Referral ID Status Reason Start Date Expiration Date V isits Requested Visits Authorized [id number] Authorized 02/28/2024 05/05/2024 99 99 Reason Comments F/U 6 months Labs prior Reason Comments Nasal Congestion drainage, cough, rig ht ear pain and sore throat x 2 weeks Reason Comments Patient Request Specialty Diagnoses / Procedures Referred By Jamie t Referred To Contact [facility] Diagnoses Severe persistent asthma without complication Procedures NITRIC OXIDE, EXHALED NITRIC OXIDE GAS DETERMINATION Ana Cristina Urbina APRN.GEOSCIENCE LABORATORY TECHNICIAN [address] [employer] [address] [place] [address] Phone: tel: fax: [facility] [address] [place] [address] Referral ID Status Reason Start Date Expiration Date Visits Re quested Visits Authorized [id number] Closed 06/08/2024 05/05/2025 1 1 Reason Comments Established Patient 3 month follow up as [facility] Specialty Diagnoses / Procedures Referred By Contac t Referred To Contact Pulmonary and Critical Care Medicine / PULMONARY MEDICINE Diagnoses Follow-up exam 3 month f/u Procedures OFFICE/OUTPATIENT ESTABLISHED SF MDM 10 MIN OFFICE/OUTPATIENT ESTABLISHED LOW MDM 20 MIN OFFICE/OUTPATIENT ESTABLISHED MOD MDM 30 MIN OFFICE/OUTPATIENT ESTABLISHED HIGH MDM 40 MIN RI EST ASTHMA Ana Cristina Urbina APRN.GEOSCIENCE LABORATORY TECHNICIAN [address] [employer] [address] [place] [address] Phone: tel: fax: Mary Lou Nicholson MD [address] [place] [address] Phone: tel: fax: Referral ID Status Reason Start Date Expiration Date V isits Requested Visits Authorized [id number] Authorized 06/05/2024 05/05/2025 99 99 Reason Onset Date Comments Refill Request 09/14/2024 Reason Comments F/U 6 months [facility] 10/22/24 left leg laceration Mass noted a hard mass in abdomen and having cramps after eating.Was suggested that she have a CT scan Reason Onset Date Comments Refill Request 10/29/2024 Reason Comments Recheck wound of left lower leg states foot is very swollen despite elevation and ice Reason Comments Follow Up Suture Removal Reason Comments Patient Question Rx for yeast infecti on / from antibiotic Reason Comments Swelling Specialty Diagnoses / Procedures Referred By Jamie phillip Referred To Contact [facility] Diagnoses Severe persistent asthma without complication (HCC) Procedures NITRIC OXIDE, EXHALED NITRIC OXIDE GAS DETERMINATION Mary Lou Nicholson MD [address] [place] [address] Phone: tel: fax: [facility] [address] [place] [address] Referral ID Status Reason Start Date Expiration Date V isits Requested Visits Authorized [id number] Closed Auto-Generate d Referral 11/09/2024 05/05/2025 [address] Specialty Diagnoses / Procedures Referred By Jamie phillip Referred To Contact CT IMAGING Diagnoses Intra-abdominal and pelvic swelling, mass and lump, unspecified site Other specified disorders of kidney and ureter Pancreatic cyst (HCC) Renal cyst Procedures CT ABDOMEN W IVCON CT ABDOMEN W/CONTRAST Nuno Benson APRN.GEOSCIENCE LABORATORY TECHNICIAN [address] [place] [address] Phone: tel: fax: [facility] IMAGING [facility] Referral ID Status Reason Start Date Expiration Date V isits Requested Visits Authorized [id number] Closed Auto-Generate d Referral 11/12/2024 02/10/2025 1 1 Reason Onset Date Comments Refill Request 01/14/2025 Referral Request 01/14/2025 Care Teams (unrecognized sec tion and content) Fractionating Still Operator Relationship Specialty Start Date End Date Lew Verduzco MD [address] [place] [address] PCP - General Internal Medicine 06/13/16 Fractionating Still Operator Relationship Specialty Start Date End Date Lew Verduzco MD [address] [place] [address] PCP - General Internal Medicine 06/13/16 Fractionating Still Operator Relationship Specialty Start Date End Date Lew Verduzco MD [address] [place] [address] PCP - General Internal Medicine 06/13/16 Fractionating Still Operator Relationship Specialty Start Date End Date Lew Verduzco MD [address] [place] [address] PCP - General Internal Medicine 06/13/16 Fractionating Still Operator Relationship Specialty Start Date End Date Lew Verduzco MD [facility] [place] [address] PCP - General Internal Medicine 06/13/16 Fractionating Still Operator Relationship Specialty Start Date End Date Lew Verduzco MD [address] [place] [address] PCP - General Internal Medicine 06/13/16 Fractionating Still Operator Relationship Specialty Start Date End Date Lew Verduzco MD [facility] [place] [address] PCP - General Internal Medicine 06/13/16 Fractionating Still Operator Relationship Specialty Start Date End Date Lew Verduzco MD [facility] [place] [address] PCP - General Internal Medicine 06/13/16 Fractionating Still Operator Relationship Specialty Start Date End Date Lew Verduzco MD [facility] [place] [address] PCP - General Internal Medicine 06/13/16 Fractionating Still Operator Relationship Specialty Start Date End Date Lew Verduzco MD [address] [place] [address] PCP - General Internal Medicine 06/13/16 Fractionating Still Operator Relationship Specialty Start Date End Date Lew Verduzco MD [address] [place] [address] PCP - General Internal Medicine 06/13/16 Fractionating Still Operator Relationship Specialty Start Date End Date Lew Verduzco MD [address] [place] [address] PCP - General Internal Medicine 06/13/16 Fractionating Still Operator Relationship Specialty Start Date End Date Lew Verduzco MD [address] [place] [address] PCP - General Internal Medicine 06/13/16 Fractionating Still Operator Relationship Specialty Start Date End Date Lew Verduzco MD [address] [place] [address] PCP - General Internal Medicine 06/13/16 Fractionating Still Operator Relationship Specialty Start Date End Date Lew Verduzco MD [address] [place] [address] PCP - General Internal Medicine 06/13/16 Fractionating Still Operator Relationship Specialty Start Date End Date Lew Verduzco MD [address] [place] [address] PCP - General Internal Medicine 06/13/16 Fractionating Still Operator Relationship Specialty Start Date End Date Lew Verduzco MD [facility] [place] [address] PCP - General Internal Medicine 06/13/16 Fractionating Still Operator Relationship Specialty Start Date End Date Lew Verduzco MD [facility] [place] [address] PCP - General Internal Medicine 06/13/16 Fractionating Still Operator Relationship Specialty Start Date End Date Lew Verduzco MD [address] [place] [address] PCP - General Internal Medicine 06/13/16 Fractionating Still Operator Relationship Specialty Start Date End Date Lew Verduzco MD [address] [place] [address] PCP - General Internal Medicine 06/13/16 Fractionating Still Operator Relationship Specialty Start Date End Date Lew Verduzco MD [address] [place] [address] PCP - General Internal Medicine 06/13/16 Fractionating Still Operator Relationship Specialty Start Date End Date Lew Verduzco MD [facility] [place] [address] PCP - General Internal Medicine 06/13/16 Fractionating Still Operator Relationship Specialty Start Date End Date Lew Verduzco MD [address] [place] [address] PCP - General Internal Medicine 06/13/16 Fractionating Still Operator Relationship Specialty Start Date End Date Edda Oconnor MD [facility] [place] [address] PCP - General Internal Medicine 04/07/22 Fractionating Still Operator Relationship Specialty Start Date End Date Edda Oconnor MD [address] [place] [address] PCP - General Internal Medicine 04/07/22 Fractionating Still Operator Relationship Specialty Start Date End Date Edda Oconnor MD [facility] [place] [address] PCP - General Internal Medicine 04/07/22 Fractionating Still Operator Relationship Specialty Start Date End Date Edda Oconnor MD [address] [place] [address] PCP - General Internal Medicine 04/07/22 Fractionating Still Operator Relationship Specialty Start Date End Date Edda Oconnor MD [address] [place] [address] PCP - General Internal Medicine 04/07/22 Team Status: Active Member Role Status Dates Dr. Lew Verduzco MD Family Provider Active Dr. Lew Verduzco MD Primary Care Provider Active Team Status: Active Member Role Status Dates Dr. Lew Verduzco MD Primary Care Provider Active Dr. James Alanis MD Attending Provider Active Dr. Samuel Mazariegos MD Referring Provider Activ e Team Status: Inactive Member Role Status Dates Dr. Lew Verduzco MD Primary Care Provider Active Dr. Samuel Mazariegos MD Attending Provider, Refe rring Provider Active Team Status: Inactive Member Role Status Dates Dr. eLw Verduzco MD Primary Care Provider Active Dr. Samuel Mazariegos MD Attending Provider Activ e Fractionating Still Operator Relationship Specialty Start Date End Date Edda Oconnor MD [address] [place] [address] PCP - General Internal Medicine 04/07/22 Fractionating Still Operator Relationship Specialty Start Date End Date Edda Oconnor MD [facility] [place] [address] PCP - General Internal Medicine 04/07/22 Fractionating Still Operator Relationship Specialty Start Date End Date Edda Oconnor MD [address] [facility] [place] [address] PCP - General Internal Medicine 04/07/22 Fractionating Still Operator Relationship Specialty Start Date End Date Edda Oconnor MD [address] [place] [address] PCP - General Internal Medicine 04/07/22 Fractionating Still Operator Relationship Specialty Start Date End Date Edda Oconnor MD [address] [place] [address] PCP - General Internal Medicine 04/07/22 Fractionating Still Operator Relationship Specialty Start Date End Date Edda Oconnor MD [address] [place] [address] PCP - General Internal Medicine 04/07/22 Fractionating Still Operator Relationship Specialty Start Date End Date Edda Oconnor MD [address] [place] [address] PCP - General Internal Medicine 04/07/22 Fractionating Still Operator Relationship Specialty Start Date End Date Edda Oconnor MD [address] [place] [address] PCP - General Internal Medicine 04/07/22 Fractionating Still Operator Relationship Specialty Start Date End Date Edda Oconnor MD [address] [place] [address] PCP - General Internal Medicine 04/07/22 Fractionating Still Operator Relationship Specialty Start Date End Date Edda Oconnor MD [address] [place] [address] PCP - General Internal Medicine 04/07/22 Fractionating Still Operator Relationship Specialty Start Date End Date Edda Oconnor MD [address] [place] [address] PCP - General Internal Medicine 04/07/22 Fractionating Still Operator Relationship Specialty Start Date End Date Edda Oconnor MD [address] [place] [address] PCP - General Internal Medicine 04/07/22 Fractionating Still Operator Relationship Specialty Start Date End Date Edda Oconnor MD [address] [place] [address] PCP - General Internal Medicine 04/07/22 Fractionating Still Operator Relationship Specialty Start Date End Date Edda Oconnor MD [address] [place] [address] PCP - General Internal Medicine 04/07/22 Fractionating Still Operator Relationship Specialty Start Date End Date Lew Verduzco MD [address] [place] [address] PCP - General Internal Medicine 06/13/16 04/06/22 Fractionating Still Operator Relationship Specialty Start Date End Date Edda Oconnor MD [address] [place] [address] PCP - General Internal Medicine 04/07/22 Fractionating Still Operator Relationship Specialty Start Date End Date Edda Oconnor MD [address] [place] [address] PCP - General Internal Medicine 04/07/22 Fractionating Still Operator Relationship Specialty Start Date End Date Edda Oconnor MD [address] [place] [address] PCP - General Internal Medicine 04/07/22 Fractionating Still Operator Relationship Specialty Start Date End Date Edda Oconnor MD [address] [place] [address] PCP - General Internal Medicine 04/07/22 Fractionating Still Operator Relationship Specialty Start Date End Date Edda Oconnor MD [address] [place] [address] PCP - General Internal Medicine 04/07/22 Fractionating Still Operator Relationship Specialty Start Date End Date Edda Oconnor MD [address] [place] [address] PCP - General Internal Medicine 04/07/22 Fractionating Still Operator Relationship Specialty Start Date End Date Edda Oconnor MD [address] [place] [address] PCP - General Internal Medicine 04/07/22 Fractionating Still Operator Relationship Specialty Start Date End Date Edda Oconnor MD [address] [place] [address] PCP - General Internal Medicine 04/07/22 Fractionating Still Operator Relationship Specialty Start Date End Date Edda Oconnor MD [address] [place] [address] PCP - General Internal Medicine 04/07/22 Fractionating Still Operator Relationship Specialty Start Date End Date Edda Oconnor MD [address] [place] [address] PCP - General Internal Medicine 04/07/22 Fractionating Still Operator Relationship Specialty Start Date End Date Edda Oconnor MD [address] [place] [address] PCP - General Internal Medicine 04/07/22 Fractionating Still Operator Relationship Specialty Start Date End Date Edda Oconnor MD [address] [place] [address] PCP - General Internal Medicine 04/07/22 Fractionating Still Operator Relationship Specialty Start Date End Date Edda Oconnor MD [address] [place] [address] PCP - General Internal Medicine 04/07/22 Fractionating Still Operator Relationship Specialty Start Date End Date Edda Oconnor MD [address] [place] [address] PCP - General Internal Medicine 04/07/22 Fractionating Still Operator Relationship Specialty Start Date End Date Edda Oconnor MD [address] [place] [address] PCP - General Internal Medicine 04/07/22 Maria Teresa Edwards, CORE MAKER HELPER.WOVEN LABEL DESIGNER [address] [place] [address] [facility] Internal Medicine 04/13/24 Nuno Benson CORE MAKER HELPER.GEOSCIENCE LABORATORY TECHNICIAN [address] [place] [address] [facility] Medicine 04/13/24 Fractionating Still Operator Relationship Specialty Start Date End Date Edda Oconnor MD [address] [place] [address] PCP - General Internal Medicine 04/07/22 Maria Teresa Edwards, CORE MAKER HELPER.WOVEN LABEL DESIGNER [address] [place] [address] [facility] Internal Medicine 04/13/24 Nuno Benson APRN.GEOSCIENCE LABORATORY TECHNICIAN [address] [place] [address] [facility] Internal Medicine 04/13/24 Fractionating Still Operator Relationship Specialty Start Date End Date Edda Oconnor MD [address] [place] [address] PCP - General Internal Medicine 04/07/22 Maria Teresa Edwards, STEPHANIE.WOVEN LABEL DESIGNER [address] [place] [address] [facility] Internal Medicine 04/13/24 Nuno Benson APRN.GEOSCIENCE LABORATORY TECHNICIAN [address] [place] [address] [facility] Internal Medicine 04/13/24 Fractionating Still Operator Relationship Specialty Start Date End Date Edda Oconnor MD [address] [place] [address] PCP - General Internal Medicine 04/07/22 Maria Teresa Edwards APRN.WOVEN LABEL DESIGNER [address] [place] [address] Professional [facility] Internal Medicine 04/13/24 Nuno Benson APRN.GEOSCIENCE LABORATORY TECHNICIAN [facility] [place] [address] Professional [facility] Internal Medicine 04/13/24 Fractionating Still Operator Relationship Specialty Start Date End Date Edda Oconnor MD [address] [place] [address] PCP - General Internal Medicine 04/07/22 Maria Teresa Edwards APRN.WOVEN LABEL DESIGNER [address] [place] [address] Professional [facility] Internal Medicine 04/13/24 Nuno Benson APRN.GEOSCIENCE LABORATORY TECHNICIAN [address] [place] [address] [facility] 04/13/24 Fractionating Still Operator Relationship Specialty Start Date End Date Edda Oconnor MD [address] [place] [address] PCP - General Internal Medicine 04/07/22 Maria Teresa Edwards, CORE MAKER HELPER.WOVEN LABEL DESIGNER [address] [place] [address] [facility] Internal Medicine 04/13/24 Nuno Benson CORE MAKER HELPER.GEOSCIENCE LABORATORY TECHNICIAN [address] [place] [address] [facility] Internal Medicine 04/13/24 Fractionating Still Operator Relationship Specialty Start Date End Date Edda Oconnor MD [address] [place] [address] PCP - General Internal Medicine 04/07/22 Maria Teresa Edwards, CORE MAKER HELPER.WOVEN LABEL DESIGNER [address] [place] [address] [facility] Internal Medicine 04/13/24 Nuno Benson CORE MAKER HELPER.GEOSCIENCE LABORATORY TECHNICIAN [address] [place] [address] [facility] Internal Medicine 04/13/24 Team Status: Active Member Role Status Dates Dr. Edda Oconnor MD Primary Care Provider Active Team Status: Inactive Member Role Status Dates Dr. Nory Coker DO Attending Provider Active S tart: April 04, 2024 End: April 04, 2024 Dr. Nory Coker DO Emergency Provider Active S tart: April 04, 2024 End: April 04, 2024 Dr. Edda Oconnor MD Primary Care Provider Active Start: April 04, 2024 End: April 04, 2024 Team Status: Inactive Member Role Status Dates Dr. Edda Oconnor MD Primary Care Provider Active Start: April 23, 2024 End: April 23, 2024 CHARMAINE Alfredo Attending Provider Active Star t: April 23, 2024 End: April 23, 2024 CHARMAINE Alfredo Referring Provider Active Star t: April 23, 2024 End: April 23, 2024 Team Status: Inactive Member Role Status Dates Dr. Edda Oconnor MD Primary Care Provider Active Start: June 08, 2024 End: June 08, 2024 Dr. Doron Kee MD Attending Provider Active S tart: June 08, 2024 End: June 08, 2024 Team Status: Inactive Member Role Status Dates Dr. Edda Oconnor MD Primary Care Provider Active Start: July 20, 2024 End: July 20, 2024 Dr. Aryan Bianchi MD Attending Provider Active Start: July 20, 2024 End: July 20, 2024 Dr. Aryan Bianchi MD Referring Provider Active Start: July 20, 2024 End: July 20, 2024 Fractionating Still Operator Relationship Specialty Start Date End Date Edda Oconnor MD [address] [place], [place] [address] PCP - General Internal Medicine 04/07/22 Maria Teresa Edwards, CORE MAKER HELPER.WOVEN LABEL DESIGNER [address] [place], [place] [id number] Formerly [facility] Internal Medicine 04/13/24 Nuno Benson, CORE MAKER HELPER.GEOSCIENCE LABORATORY TECHNICIAN [address] [place], [place] [address] Formerly [facility] Internal Medicine 07/28/24 Fractionating Still Operator Relationship Specialty Start Date End Date Edda Oconnor MD [address] [place] [address] PCP - General Internal Medicine 04/07/22 Maria Teresa Edwards, CORE MAKER HELPER.WOVEN LABEL DESIGNER [address] [place] [address] Formerly [facility] Internal Medicine 04/13/24 Nuno Benson, CORE MAKER HELPER.GEOSCIENCE LABORATORY TECHNICIAN [address] [place] [address] Formerly [facility] Internal Medicine 07/28/24 Team Status: Inactive Member Role Status Dates Dr. Edda Oconnor MD Primary Care Provider Active Start: September 21, 2024 End: September 21, 2024 Dr. Aryan Bianchi MD Attending Provider Active Start: September 21, 2024 End: September 21, 2024 Dr. Aryan Bianchi MD Referring Provider Active Start: September 21, 2024 End: September 21, 2024 Fractionating Still Operator Relationship Specialty Start Date End Date Edda Oconnor MD [address] [place] [address] PCP - General Internal Medicine 04/07/22 Nuno Benson CORE MAKER HELPER.GEOSCIENCE LABORATORY TECHNICIAN [address] [place] [address] Formerly [facility] Internal Medicine 07/28/24 Maria Teresa Edwards, CORE MAKER HELPER.WOVEN LABEL DESIGNER [address] [place] [address] Formerly [facility] Internal Medicine 09/23/24 Team Status: Inactive Member Role Status Dates Dr. Edda Oconnor MD Primary Care Provider Active Start: October 22, 2024 End: October 22, 2024 Dr. Juanjose Beckman DO Emergency Provider Activ e Start: October 22, 2024 End: October 22, 2024 Fractionating Still Operator Relationship Specialty Start Date End Date Edda Oconnor MD [address] [place] [address] PCP - General Internal Medicine 04/07/22 Nuno Benson APRN.GEOSCIENCE LABORATORY TECHNICIAN [address] [place] [address] [facility] Internal Medicine 07/28/24 Maria Teresa Edwards, CORE MAKER HELPER.WOVEN LABEL DESIGNER [address] [facility] [place] [address] [facility] 09/23/24 Fractionating Still Operator Relationship Specialty Start Date End Date Edda Oconnor MD [address] [facility] [place] [address] PCP - General Internal Medicine 04/07/22 Nuno Benson APRN.GEOSCIENCE LABORATORY TECHNICIAN [address] [facility] [place] [address] [facility] 07/28/24 Maria Teresa Edwards, CORE MAKER HELPER.WOVEN LABEL DESIGNER [address] [facility] [place] [address] [facility] 09/23/24 Fractionating Still Operator Relationship Specialty Start Date End Date Edda Oconnor MD [address] [facility] [place] [address] PCP - General Internal Medicine 04/07/22 Nuno Benson CORE MAKER HELPER.GEOSCIENCE LABORATORY TECHNICIAN [address] [facility] [place] [address] [facility] 07/28/24 Maria Teresa Edwards, CORE MAKER HELPER.WOVEN LABEL DESIGNER [address] [facility] [place] [address] [facility] 09/23/24 Fractionating Still Operator Relationship Specialty Start Date End Date Edda Oconnor MD [address] [place] [address] PCP - General Internal Medicine 04/07/22 Nuno Benson CORE MAKER HELPER.GEOSCIENCE LABORATORY TECHNICIAN [address] [place] [address] [facility] 07/28/24 Maria Teresa Edwards, CORE MAKER HELPER.WOVEN LABEL DESIGNER [address] [place] [address] Formerly [facility] Internal Medicine 09/23/24 Fractionating Still Operator Relationship Specialty Start Date End Date Edda Oconnor MD [address] [place] [address] PCP - General Internal Medicine 04/07/22 Nuno Benson CORE MAKER HELPER.GEOSCIENCE LABORATORY TECHNICIAN [address] [place] [address] [facility] 07/28/24 Maria Teresa Edwards, CORE MAKER HELPER.WOVEN LABEL DESIGNER [address] [place] [address] Formerly [facility] Internal Medicine 09/23/24 Fractionating Still Operator Relationship Specialty Start Date End Date Edda Oconnor MD [address] [place] [address] PCP - General Internal Medicine 04/07/22 Nuno Benson CORE MAKER HELPER.GEOSCIENCE LABORATORY TECHNICIAN [address] [place] [address] [facility] 07/28/24 Maria Teresa Edwards CORE MAKER HELPER.WOVEN LABEL DESIGNER [address] [facility] [place] [address] [facility] 09/23/24 Fractionating Still Operator Relationship Specialty Start Date End Date Edda Oconnor MD [address] [facility] [place] [address] PCP - General Internal Medicine 04/07/22 Nuno Benson CORE MAKER HELPER.GEOSCIENCE LABORATORY TECHNICIAN [address] [facility] [place] [address] [facility] 07/28/24 Maria Teresa Edwards, CORE MAKER HELPER.WOVEN LABEL DESIGNER [address] [facility] [place] [address] [facility] 09/23/24 Fractionating Still Operator Relationship Specialty Start Date End Date Edda Oconnor MD [address] [facility] [place] [address] PCP - General Internal Medicine 04/07/22 Nuno Benson CORE MAKER HELPER.GEOSCIENCE LABORATORY TECHNICIAN [address] [facility] [place] [address] [facility] 07/28/24 Maria Teresa Edwards, CORE MAKER HELPER.WOVEN LABEL DESIGNER [address] [facility] [place] [address] [facility] 09/23/24 Fractionating Still Operator Relationship Specialty Start Date End Date Edda Oconnor MD [address] [facility] [place] [address] PCP - General Internal Medicine 04/07/22 Nuno Benson CORE MAKER HELPER.GEOSCIENCE LABORATORY TECHNICIAN [address] [place] [address] [facility] 07/28/24 Maria Teresa Edwards, CORE MAKER HELPER.WOVEN LABEL DESIGNER [address] [place] [address] [facility] 09/23/24 Fractionating Still Operator Relationship Specialty Start Date End Date Edda Oconnor MD [address] [place] [address] PCP - General Internal Medicine 04/07/22 Nuno Benson APRN.GEOSCIENCE LABORATORY TECHNICIAN [address] [facility] [place] [address] [facility] 07/28/24 Maria Teresa Edwards, CORE MAKER HELPER.WOVEN LABEL DESIGNER [address] [place] [address] [facility] 09/23/24 Fractionating Still Operator Relationship Specialty Start Date End Date Edda Oconnor MD [address] [facility] [place] [place] [address] PCP - General Internal Medicine 04/07/22 Nuno Benson CORE MAKER HELPER.GEOSCIENCE LABORATORY TECHNICIAN [address] [facility] [place] [address] [facility] 07/28/24 Maria Teresa Edwards, CORE MAKER HELPER.WOVEN LABEL DESIGNER [address] [facility] [place] [address] [facility] 09/23/24 Fractionating Still Operator Relationship Specialty Start Date End Date Edda Oconnor MD [address] [place] [address] PCP - General Internal Medicine 04/07/22 Nuno Benson, CORE MAKER HELPER.GEOSCIENCE LABORATORY TECHNICIAN [address] [place], [place] [address] Formerly [facility] Internal Medicine 07/28/24 Maria Teresa Edwards, CORE MAKER HELPER.WOVEN LABEL DESIGNER [address] [place], [place] [address] Formerly [facility] Internal Medicine 09/23/24 Team Status: Active Member Role/Relationship Status Dates Dr. Edda Oconnor MD Primary Care Provider Active Team Status: Inactive Member Role/Relationship Status Dates Dr. Edda Oconnor MD Primary Care Provider Active Start: September 21, 2024 End: September 21, 2024 Dr. Aryan Bianchi MD Attending Provider Active Start: September 21, 2024 End: September 21, 2024 Dr. Aryan Bianchi MD Referring Provider Active Start: September 21, 2024 End: September 21, 2024 Team Status: Inactive Member Role/Relationship Status Dates Dr. Edda Oconnor MD Primary Care Provider Active Start: October 22, 2024 End: October 22, 2024 Dr. Juanjose Beckman DO Attending Provider Activ e Start: October 22, 2024 End: October 22, 2024 Dr. Juanjose Beckman DO Emergency Provider Activ e Start: October 22, 2024 End: October 22, 2024 Team Status: Inactive Member Role/Relationship Status Dates Dr. Edda Oconnor MD Primary Care Provider Active Start: November 03, 2024 Dr. Erika Gan MD Attending Provider Active Start: November 03, 2024 Team Status: Active Member Role/Relationship Status Dates Dr. Edda Oconnor MD Primary Care Provider Active Start: November 11, 2024 Magdalena Whaley ELECTRIC SPOT WELDER, ELECTRIC SPOT WELDER-C Attending Provider Active Start: November 11, 2024 Magdalena Whaley ELECTRIC SPOT WELDER, ELECTRIC SPOT WELDER-C Other Provider Active S tart: November 11, 2024 Dr. Lew Verduzco MD Referring Provider Active Start: November 11, 2024 Team Status: Active Member Role/Relationship Status Dates Dr. Edda Oconnor MD Primary Care Provider Active Start: November 18, 2024 Magdalena Whlaey ELECTRIC SPOT WELDER, ELECTRIC SPOT WELDER-C Attending Provider Active Start: November 18, 2024 Magdalena Whaley ELECTRIC SPOT WELDER, ELECTRIC SPOT WELDER-C Other Provider Active S tart: November 18, 2024 Dr. Lew Verduzco MD Referring Provider Active Start: November 18, 2024 Team Status: Active Member Role/Relationship Status Dates Dr. Edda Oconnor MD Primary Care Provider Active Start: November 25, 2024 Magdalena Whaley ELECTRIC SPOT WELDER, ELECTRIC SPOT WELDER-C Attending Provider Active Start: November 25, 2024 Magdalena Whaley ELECTRIC SPOT WELDER, ELECTRIC SPOT WELDER-C Other Provider Active S tart: November 25, 2024 Dr. Lew Verduzco MD Referring Provider Active Start: November 25, 2024 Team Status: Inactive Member Role/Relationship Status Dates Dr. Edda Oconnor MD Primary Care Provider Active Start: December 02, 2024 End: December 03, 2024 Magdalena Whaley ELECTRIC SPOT WELDER, ELECTRIC SPOT WELDER-C Attending Provider Active Start: December 02, 2024 End: December 03, 2024 Dr. Lew Verduzco MD Referring Provider Active Start: December 02, 2024 End: December 03, 2024 Team Status: Active Member Role/Relationship Status Dates Dr. Edda Oconnor MD Primary Care Provider Active Start: December 02, 2024 Magdalena Whaley ELECTRIC SPOT WELDER, ELECTRIC SPOT WELDER-C Attending Provider Active Start: December 02, 2024 Magdalena Whaley ELECTRIC SPOT WELDER, ELECTRIC SPOT WELDER-C Other Provider Active S tart: December 02, 2024 Dr. Lew Verduzco MD Referring Provider Active Start: December 02, 2024 Team Status: Active Member Role/Relationship Status Dates Dr. Edda Oconnor MD Primary Care Provider Active Start: December 09, 2024 Magdalena Whaley ELECTRIC SPOT WELDER, ELECTRIC SPOT WELDER-C Attending Provider Active Start: December 09, 2024 Magdalena Whaley ELECTRIC SPOT WELDER, ELECTRIC SPOT WELDER-C Other Provider Active S tart: December 09, 2024 Dr. Lew Verduzco MD Referring Provider Active Start: December 09, 2024 Team Status: Active Member Role/Relationship Status Dates Dr. Edda Oconnor MD Primary Care Provider Active Start: December 16, 2024 Magdalena Whaley ELECTRIC SPOT WELDER, ELECTRIC SPOT WELDER-C Attending Provider Active Start: December 16, 2024 Magdalena Whaley ELECTRIC SPOT WELDER, ELECTRIC SPOT WELDER-C Other Provider Active S tart: December 16, 2024 Dr. Lew Verduzco MD Referring Provider Active Start: December 16, 2024 Team Status: Inactive Member Role/Relationship Status Dates Dr. Edda Oconnor MD Primary Care Provider Active Start: December 23, 2024 End: December 31, 2024 Magdalena Whaley ELECTRIC SPOT WELDER, ELECTRIC SPOT WELDER-C Attending Provider Active Start: December 23, 2024 End: December 31, 2024 Dr. Lew Verduzco MD Referring Provider Active Start: December 23, 2024 End: December 31, 2024 Team Status: Active Member Role/Relationship Status Dates Dr. Edda Oconnor MD Primary Care Provider Active Start: December 23, 2024 Magdalena Whaley ELECTRIC SPOT WELDER, ELECTRIC SPOT WELDER-C Attending Provider Active Start: December 23, 2024 Magdalena Whaley ELECTRIC SPOT WELDER, ELECTRIC SPOT WELDER-C Other Provider Active S tart: December 23, 2024 Dr. Lew Verduzco MD Referring Provider Active Start: December 23, 2024 Fractionating Still Operator Relationship Specialty Start Date End Date Edda Oconnor MD [address] [place], [place] [address] PCP - General Internal Medicine 04/07/22 Nuno Benson APRN.GEOSCIENCE LABORATORY TECHNICIAN [address] [place], [place] [address] Formerly [facility] Internal Medicine 07/28/24 Maria Teresa Edwards APRN.WOVEN LABEL DESIGNER [address] [place], [place] [address] Formerly [facility] Internal Medicine 09/23/24 Team Status: Inactive Member Role/Relationship Status Dates Dr. Edda Oconnor MD Primary Care Provider Active Start: January 14, 2025 End: January 14, 2025 Dr. Hugo Thomason DO Attending Provider Active Start: January 14, 2025 End: January 14, 2025 Nuno Marcelino ELECTRIC SPOT WELDER, ELECTRIC SPOT WELDER-C Referring Provider Active Start: January 14, 2025 End: January 14, 2025 Fractionating Still Operator Relationship Specialty Start Date End Date Edda Oconnor MD [address] [place] [address] PCP - General Internal Medicine 04/07/22 Nuno Benson APRN.GEOSCIENCE LABORATORY TECHNICIAN [address] [place], [place] [address] [facility] Internal Medicine 07/28/24 Maria Teresa Edwards APRN.WOVEN LABEL DESIGNER [address] [place], [place] [id number] Formerly [facility] Internal Medicine 09/23/24 Goals (unrecognized section and content) Goals may be documented in a n alternate sectionGoals may be documented in an alternate sectionGoals may be documented in an alternate section No data available for this section FOR RECORDS PERTAINING TO PATIENTS WHO ARE [...] BE BASED ON THE PRIMARY CLINICAL RECORDS. [facility]. provides no warranty or guarantee of the accuracy or completeness of information in this document.
== END | disposition home or self-care (01) ==
LOC: OPMRI 07:42
PROVIDERS: PCP Internal Medicine; Referring Provider Internal Medicine Gastroenterology; Visit Provider Internal Medicine Gastroenterology
DX: K86.89 Other specified diseases of pancreas (principal)
CPT/HCPCS: 74183; A9575; A4216